=== PATIENT | female | born 1955 | race Caucasian/White ===

== ENCOUNTER 2017-01-07 17:53 | Emergency (ER) | payer OTHER ==
[~2017-01-07] VITALS: Ht 165.1 cm; Wt 137.0 kg
[~2017-01-07 17:53] MED LIST: ALBUAER INH; ASCO500T3 PO; CARV6.252 PO; DIAZ2TAB PO; FERR1TAB23 PO; FRS/40 PO; LOSA1TAB PO; MECL1TAB42 PO; ONDA4TAB46 PO; POTA20TA16 PO; PRLSR20 PO
[2017-01-07 17:55] VITALS: BP 131/68; PULSE 83; TEMP 36.9; O2SAT 94; Ht 165.1 cm; Wt 137.0 kg
[2017-01-07] MEDS ORDERED: OXYCODONE HCL IR 5 MG TAB (IMMEDIATE RELEASE) PO STA (18:05)
--- NOTE | 2017-01-07 19:08 | DIAGNOSTIC IMAGING REPORT ---
RIGHT KNEES, AP STANDING CLINICAL HISTORY: rt knee pain/eval for severe O/A Right pain COMPARISON: None DISCUSSION: Moderate degenerative narrowing medial joint compartment right knee. Rather significant degenerative narrowing medial joint compartment left knee. Bony mineralization is within normal limits. Lateral joint compartments are intact. There is no evidence for soft tissue swelling. IMPRESSION: Moderate rather significant degenerative change medial joint compartment right knee. Significant to severe degenerative narrowing medial joint compartment left knee. Electronically signed by: Joe Lamas M.D. 01/07/2017 7:07 PM Dictated Date/Time: 01/07/2017 7:06 PM
--- NOTE | 2017-01-07 19:09 | DIAGNOSTIC IMAGING REPORT ---
RIGHT KNEE 1 OR 2 VIEWS ROUTINE CLINICAL HISTORY: knee pain Right pain COMPARISON: None. DISCUSSION: Lateral projection of the knee confirms moderate degenerative change of the patellofemoral joint. There is no significant joint effusion. There is no abnormal periosteal reaction. There is no evidence for soft tissue swelling. IMPRESSION: Mild to moderate degenerative change of the patellofemoral joint. Lateral projection of the knee is otherwise negative Electronically signed by: Joe Lamas M.D. 01/07/2017 7:08 PM Dictated Date/Time: 01/07/2017 7:07 PM
[2017-01-07] MEDS ORDERED: MoRPHine SULFATE 10 MG/ML CARP/VIAL IM STA (19:14)
--- NOTE | 2017-01-07 19:36 | DIAGNOSTIC IMAGING REPORT ---
RIGHT KNEE 1 OR 2 VIEWS ROUTINE CLINICAL HISTORY: RIGHT KNEE PAIN, AP NON WEIGHTBEARING Right pain COMPARISON: None. DISCUSSION: The bones and joint spaces appear intact. There is no evidence of fracture, dislocation or bony disease. There is no evidence for soft tissue swelling. IMPRESSION: Negative study. Electronically signed by: Joe Lamas M.D. 01/07/2017 7:35 PM Dictated Date/Time: 01/07/2017 7:34 PM
[2017-01-07] MEDS ORDERED: ONDANSETRON 4MG OD TAB PO ONE (20:00)
--- NOTE | 2017-01-07 20:09 | EMERGENCY ROOM VISIT NOTE ---
ED Visit Note First contact with patient: 18:00 CHIEF COMPLAINT: Right knee pain HISTORY OF PRESENT ILLNESS: This 62-year-old female presents the ER with chief complaint right knee pain. The patient states that the pain started 2 weeks ago but got more severe over the past 2 days. She denies any injury to her knee. The patient denies any locking or giving out of the knee. The patient admits to severe knee pain with weightbearing. The patient has not taken anything at home for pain since she cannot take Tylenol or aspirin. The patient has not seen her family physician for her symptoms. She has never seen an orthopedic surgeon in the past. REVIEW OF SYSTEMS: 6 system review was performed and was negative unless stated otherwise in history of present illness. PMH: The patient is healthy; heart disease, DVT, hysterectomy, SOCIAL HISTORY: Patient lives with her . The patient denies any tobacco or alcohol use PHYSICAL EXAM: Vital Signs normal: Reviewed Nurse's notes and agree. GENERAL: Morbidly obese white female appears uncomfortable secondary to knee pain. MENTAL STATUS: Alert and oriented in no acute distress. RIGHT KNEE: No gross bony deformity noted. The patient has tenderness to palpation over the medial joint space otherwise nontender. The patient has limited range of motion with flexion with pain elicited with flexion. No ligament instability noted. EMERGENCY DEPARTMENT COURSE: The patient was evaluated. The patient was given OxyIR 10 mg by mouth for pain. X-ray of the right knee to include weightbearing was ordered and interpreted by the radiologist and myself. DIAGNOSTICS:RIGHT KNEES, AP STANDING CLINICAL HISTORY: rt knee pain/eval for severe O/A Right pain COMPARISON: None DISCUSSION: Moderate degenerative narrowing medial joint compartment right knee. Rather significant degenerative narrowing medial joint compartment left knee. Bony mineralization is within normal limits. Lateral joint compartments are intact. There is no evidence for soft tissue swelling. IMPRESSION: Moderate rather significant degenerative change medial joint compartment right knee. Significant to severe degenerative narrowing medial joint compartment left knee. Electronically signed by: Joe Lamas M.D. 01/07/2017 7:07 PM Dictated Date/Time: 01/07/2017 7:06 PM RIGHT KNEE 1 OR 2 VIEWS ROUTINE CLINICAL HISTORY: RIGHT KNEE PAIN, AP NON WEIGHTBEARING Right pain COMPARISON: None. DISCUSSION: The bones and joint spaces appear intact. There is no evidence of fracture, dislocation or bony disease. There is no evidence for soft tissue swelling. IMPRESSION: Negative study. Electronically signed by: Joe Lamas M.D. 01/07/2017 7:35 PM Dictated Date/Time: 01/07/2017 7:34 PM RIGHT KNEE 1 OR 2 VIEWS ROUTINE CLINICAL HISTORY: knee pain Right pain COMPARISON: None. DISCUSSION: Lateral projection of the knee confirms moderate degenerative change of the patellofemoral joint. There is no significant joint effusion. There is no abnormal periosteal reaction. There is no evidence for soft tissue swelling. IMPRESSION: Mild to moderate degenerative change of the patellofemoral joint. Lateral projection of the knee is otherwise negative Electronically signed by: Joe Lamas M.D. 01/07/2017 7:08 PM Dictated Date/Time: 01/07/2017 7:07 PM The patient was reevaluated and was still in pain and therefore was given morphine 10 mg IM. The patient was informed of the x-ray findings. The patient was again reevaluated and stated that the pain was better but she was slightly nauseated therefore she was given Zofran 4 mg ODT. The patient was given a walker. The patient states that she would like to follow with Dr. Griffith since her goes to him for his orthopedic needs. The patient was discharged home with an OxyIR home pack in stable condition. DIAGNOSIS: Severe osteoarthritis of both knees DISCHARGE INSTRUCTIONS: Take OxyIR one to 2 tablets every 4 hours as needed for pain. Do not drive while taking the OxyIR. Use walker for ambulation. Call Dr. Griffith tomorrow for follow-up appointment. Problem List Medical Problems: (1) Diastolic CHF, chronic Status: Chronic (2) Hypertension Status: Chronic (3) Migraine headache Status: Chronic Surgical Problems: (1) Status post appendectomy Status: Chronic (2) Status post section Status: Chronic (3) Status post hysterectomy Status: Chronic Current/Historical Medications Scheduled Carvedilol (Coreg), 6.25 MG PO BID Furosemide (Lasix), 40 MG PO QAM Losartan Potassium (Cozaar), 25 MG PO QAM Potassium Ext Rel (Klor-Con), 20 MEQ PO QAM Pramipexole (Mirapex), 2 TABS PO QAM Pramipexole (Mirapex), 0.125 MG PO QPM Trazodone Hcl (Trazodone), 100 MG PO HS Scheduled PRN Albuterol Sulfate (Proventil Hfa), 2 PUFFS INH Q6H PRN for SOB/Wheezing Ondansetron Hcl (Zofran), 4 MG PO Q8H PRN for Nausea Allergies Coded Allergies: Adhesives (Verified Allergy, Unknown, "Tape" -- blisters, 09/05/16) Cyclobenzaprine (Verified Allergy, Unknown, RASH, 09/05/16) Lisinopril (Verified Allergy, Unknown, Cough, 09/05/16) Source - PT/GMG Tetanus Toxoid (Unverified Allergy, Unknown, IRRITABILITY, 09/05/16) Hydrochlorothiazide w/Triamterene (Unverified Adverse Reaction, Severe, COUGH, 09/05/16) Vital Signs Date Time Temp Pulse Resp B/P Pulse Ox O2 Delivery O2 Flow Rate FiO2 01/07/17 17:55 36.9 83 20 131/68 94 Room Air Medications Administered Medications (Trade) Dose Ordered Sig/Ameya Route Start Time Stop Time Status Last Admin Dose Admin Oxycodone HCl (Roxicodone Immediate Rel Tab) 10 mg NOW STAT PO 01/07/17 18:05 01/07/17 18:09 DC 01/07/17 18:34 10 MG Morphine Sulfate (MoRPHine SULFATE INJ) 10 mg NOW STAT IM 01/07/17 19:14 01/07/17 19:15 DC 01/07/17 19:31 10 MG Ondansetron HCl (Zofran Odt) 4 mg ONE ONCE PO 01/07/17 20:00 01/07/17 20:01 DC 01/07/17 19:56 4 MG Departure Information Referrals Abby Shipman D.O. (PCP) Patient Instructions My [facility]
[2017-01-07] MEDS ORDERED: OXYC1TAB3 PO (20:11)
[2017-01-07] MEDS ORDERED: OXYCODONE IR HOME PACK PO ONE (20:15)
[2017-01-25] MEDS ORDERED: METO50TA17 PO (12:13)
[2017-01-30] MEDS ORDERED: ATV1 PO (05:04)
[2017-01-30] MEDS ORDERED: RANI150T2 PO (05:04)
[2017-01-30] MEDS ORDERED: NRN100 PO (05:04)
[2017-01-30] MEDS ORDERED: TRAZ100T29 PO (12:32)
[2017-02-01] MEDS ORDERED: LPR25 PO (15:28)
[2017-05-03] MEDS ORDERED: DOCU-94 PO (09:21)
[2017-05-03] MEDS ORDERED: FRRS300 PO (09:21)
[2017-05-03] MEDS ORDERED: MRLP17X PO (09:21)
[2017-05-03] MEDS ORDERED: PSYL58.636 PO (09:21)
== END 2017-01-07 20:24 | disposition home or self-care (01) ==
LOC: C.EDB 17:54 → C.EDD 20:24
DX: M17.0 Bilateral primary osteoarthritis of knee (principal); I51.9 Heart disease, unspecified; I50.32 Chronic diastolic (congestive) heart failure; Z90.710 Acquired absence of both cervix and uterus

== ENCOUNTER 2017-01-24 03:46 | Inpatient (IN) | payer OTHER ==
[2017-01-24] VITALS (7 sets, daily range): BP systolic 109–170; BP diastolic 68–101; PULSE 72–102; TEMP 36.5–36.8; O2SAT 93–99; Ht 165.1 cm; Wt 142.3 kg
[~2017-01-24] VITALS: Ht 165.1 cm; Wt 142.3 kg
[~2017-01-24 03:46] MED LIST changes: -ASCO500T3 PO; -DIAZ2TAB PO; -FERR1TAB23 PO; -MECL1TAB42 PO; +OXYC1TAB3 PO; -PRLSR20 PO
[2017-01-24] MEDS ORDERED: METHYLPREDNISOLONE 125 MG VIAL IV STA (04:15)
[2017-01-24] MEDS ORDERED: DiphenhydrAMINE HCL 50 MG/ML VIAL IV STA (04:15)
--- NOTE | 2017-01-24 04:20 | EMERGENCY ROOM VISIT NOTE ---
History Report prepared by David: Endy Baptiste Under the Supervision of: Dr. Kan Kruse M.D. First contact with patient: 04:10 Chief Complaint: ALLERGIC REACTION Stated Complaint: HIVES,ITCHING,HARD TO BREATHE History of Present Illness The patient is a 62 year old female who presents to the Emergency Room with complaints of an allergic reaction that occurred 3 hours ago. The patient states that she is itching and has hives all over. She is mildly short of breath that began 2 hours ago. She is also a little nauseated. The only new medication that she has been taking is Sulindac, which she started on the 13 of this month. She denies any vomiting or chest pain. She has a past medical history of arthritis, bone spurs in her knees, fibromyalgia, depression, and CHF. She states that she has retained 4 pounds of fluid due to her recent trouble with urinating. She just had a shot of cortisone in her knee and back recently. Source of History: patient Onset: 3 hours ago Position: other (global) Symptom Intensity: mild Quality: other (allergic reaction) Timing: constant Associated Symptoms: + SOB, + nausea, + rash, No chest pain, No vomiting Review of Systems See HPI for pertinent positives & negatives. A total of 10 systems reviewed and were otherwise negative. Past Medical & Surgical Medical Problems: (1) Atrial fibrillation (2) Degenerative joint disease (DJD) of lumbar spine (3) Diastolic CHF, chronic (4) Hypertension (5) Internal hemorrhoids (6) Migraine headache (7) Nonalcoholic fatty liver disease (8) Sleep apnea Surgical Problems: (1) Status post appendectomy (2) Status post section (3) Status post hysterectomy Family History FH: COPD (chronic obstructive pulmonary disease) FATHER FH: diabetes mellitus MOTHER FH: heart disease FATHER GRANDFATHER FH: hypertension MOTHER FH: lung cancer MOTHER Social History Smoking Status: Never Smoker Alcohol Use: none Marital Status: Housing Status: lives with family Occupation Status: unemployed Current/Historical Medications Scheduled Carvedilol (Coreg), 6.25 MG PO BID Furosemide (Lasix), 40 MG PO QAM Gabapentin (Gabapentin), 100 MG PO BID Losartan Potassium (Cozaar), 25 MG PO QAM Potassium Ext Rel (Klor-Con), 20 MEQ PO QAM Pramipexole (Mirapex), 2 TABS PO QAM Pramipexole (Mirapex), 0.125 MG PO QPM Ranitidine HCl (Ranitidine HCl), 150 MG PO BID Sulindac (Sulindac), 150 MG PO BIDM Trazodone Hcl (Trazodone), 100 MG PO HS Scheduled PRN Albuterol Sulfate (Proventil Hfa), 2 PUFFS INH Q6H PRN for SOB/Wheezing Lorazepam (Lorazepam), 1 MG PO Q6 PRN for Anxiety Ondansetron Hcl (Zofran), 4 MG PO Q8H PRN for Nausea Allergies Coded Allergies: Sulindac (Verified Allergy, Intermediate, HIVES, 01/24/17) Adhesives (Verified Allergy, Unknown, "Tape" -- blisters, 01/24/17) Cyclobenzaprine (Verified Allergy, Unknown, RASH, 01/24/17) Lisinopril (Verified Allergy, Unknown, Cough, 01/24/17) Source - PT/GMG Tetanus Toxoid (Unverified Allergy, Unknown, IRRITABILITY, 01/24/17) Hydrochlorothiazide w/Triamterene (Unverified Adverse Reaction, Severe, COUGH, 01/24/17) Physical Exam Vital Signs Date Time Temp Pulse Resp B/P Pulse Ox O2 Delivery O2 Flow Rate FiO2 01/24/17 05:54 78 18 143/89 93 Room Air 01/24/17 05:41 75 01/24/17 05:39 150 01/24/17 04:15 88 01/24/17 04:12 Room Air 01/24/17 03:54 36.9 85 25 195/81 98 Room Air Physical Exam General: Non ill appearing older female. Well developed well nourished in no acute distress, breathing comfortably on room air. Normal speech HEENT: Normal cephalic atraumatic. Pupils are equal round and reactive to light. Extraocular movements are intact. Oropharynx is pink with moist mucous membranes. No swelling of the mouth lips or tongue. Neck: Supple with a midline trachea. No meningeal signs or stiffness, no JVD or bruits. No Stridor. Chest: Clear to auscultation bilaterally. No wheezes or rhonchi. No increased work of breathing. Heart: regular rate and rhythm. Abdomen: Soft nontender, nondistended without rebound guarding or rigidity. Extremities: No cyanosis clubbing or edema. No calf tenderness or assymetry Spine/Back. Non tender to palpation. No CVA tenderness Skin: Good turgor. Itching on arms and possible hives on the back. Neurologic exam: Cranial nerves two through 12 are intact. Motor and sensation are intact and symmetrical throughout. Medical Decision & Procedures ER Provider Diagnostic Interpretation: X-ray results as stated below per interpretation by me: CHEST XRAY: Cardiomegaly, no overt CHF, large body habitus. Laboratory Results 01/24/17 04:28 Red Blood Count 4.30, Mean Corpuscular Volume 86.3, Mean Corpuscular Hemoglobin 27.2, Mean Corpuscular Hemoglobin Concent 31.5, Mean Platelet Volume 9.6, Neutrophils (%) (Auto) 66.7, Lymphocytes (%) (Auto) 24.1, Monocytes (%) (Auto) 6.2, Eosinophils (%) (Auto) 1.8, Basophils (%) (Auto) 0.2, Neutrophils # (Auto) 6.97, Lymphocytes # (Auto) 2.52, Monocytes # (Auto) 0.65, Eosinophils # (Auto) 0.19, Basophils # (Auto) 0.02 01/24/17 04:28 Test 01/24/17 04:28 01/24/17 04:32 White Blood Count 10.45 K/uL (4.8-10.8) Red Blood Count 4.30 M/uL (4.2-5.4) Hemoglobin 11.7 g/dL (12.0-16.0) Hematocrit 37.1 % (37-47) Mean Corpuscular Volume 86.3 fL (80-100) Mean Corpuscular Hemoglobin 27.2 pg (25-34) Mean Corpuscular Hemoglobin Concent 31.5 g/dl (32-36) Platelet Count 259 K/uL (130-400) Mean Platelet Volume 9.6 fL (7.4-10.4) Neutrophils (%) (Auto) 66.7 % Lymphocytes (%) (Auto) 24.1 % Monocytes (%) (Auto) 6.2 % Eosinophils (%) (Auto) 1.8 % Basophils (%) (Auto) 0.2 % Neutrophils # (Auto) 6.97 K/uL (1.4-6.5) Lymphocytes # (Auto) 2.52 K/uL (1.2-3.4) Monocytes # (Auto) 0.65 K/uL (0.11-0.59) Eosinophils # (Auto) 0.19 K/uL (0-0.5) Basophils # (Auto) 0.02 K/uL (0-0.2) RDW Standard Deviation 48.1 fL (36.4-46.3) RDW Coefficient of Variation 15.2 % (11.5-14.5) Immature Granulocyte % (Auto) 1.0 % Immature Granulocyte # (Auto) 0.10 K/uL (0.00-0.02) Anion Gap 4.0 mmol/L (3-11) Est Creatinine Clear Calc Drug Dose 76.2 ml/min Estimated GFR () 62.8 Estimated GFR (Non- 54.1 BUN/Creatinine Ratio 17.7 (10-20) Calcium Level 8.8 mg/dl (8.5-10.1) Total Bilirubin 0.4 mg/dl (0.2-1) Direct Bilirubin < 0.1 mg/dl (0-0.2) Aspartate Amino Transf (AST/SGOT) 12 U/L (15-37) Alanine Aminotransferase (ALT/SGPT) 25 U/L (12-78) Alkaline Phosphatase 100 U/L (45-117) Total Protein 7.1 gm/dl (6.4-8.2) Albumin 3.0 gm/dl (3.4-5.0) Lipase 80 U/L (73-393) Bedside Troponin I 0.000 ng/ml (0-0.045) RX-[id number]-Type Natriuretic Peptide < 15 pg/ml (0-900) Laboratory studies as stated above per my review. Medications Administered Medications (Trade) Dose Ordered Sig/Ameya Route Start Time Stop Time Status Last Admin Dose Admin Diphenhydramine HCl (Benadryl Inj) 25 mg NOW STAT IV 01/24/17 04:15 01/24/17 04:16 DC 01/24/17 04:28 25 MG Methylprednisolone Sodium Succinate (Solu-Medrol IV) 125 mg NOW STAT IV 01/24/17 04:15 01/24/17 04:16 DC 01/24/17 04:28 125 MG ECG Indication: SOB/dyspnea Rate (beats per minute): 79 Rhythm: normal sinus Findings: other (low voltage QRS, Nonspecific Q-wave abnormalities) Comparison ECG Date: 12 Jul 2016 Change: no significant change ED Course 0410: Past medical records reviewed. The patient was evaluated in room A10, and a complete history and physical examination were performed. 0415: Solu-Medrol 125 mg IV, Benadryl Inj 25 mg IV 0512: I reassessed the patient at this time. She is resting comfortably. 0540: Upon reevaluation, the patient is resting. I discussed the results and treatment plan with her. She verbalized agreement of the treatment plan. The patient was discharged home. 0543: When discharging the patient, I noticed she had an increased heart rate of 150. She had a brief run of Atrial Fibrillation. However, she feels better. 0557: I reevaluated the patient at this time. Upon reevaluation, the patient is resting, but is experiencing episodes of Atrial Fibrillation. I discussed the results and treatment plan with the patient and Dr. Amadou Tian Hospitalist. The patient will be evaluated by him for further management. Medical Decision Differentials include allergic reaction, medication side effect, CHF, anxiety, and electrolyte or metabolic abnormality. This patient comes in as described above she complains of have an allergic reaction. She has itching on her arms back. She may have a small amount of hives on her back. She has recently started sulindac which she could be allergic to. She's also had a recent weight gain with swelling in her legs and decreased urine output and mild shortness of breath. She appears in no distress. She has no facial swelling. She's had nothing to suggest anaphylaxis. She has no swollen mouth lips or tongue. She has no hoarseness or stridor or wheezing. IV access established, EKG was obtained and multiple blood tests was obtained. She was given IV Benadryl as well as IV Solu-Medrol feeling a lot better. Chest x-ray somewhat limited due to her body habitus but no overt CHF. EKG shows no ischemic changes or arrhythmia. Her troponin is normal. She's haad no significant electrolyte or metabolic abnormalities. She is feeling better and when I went ashley discharge her, I noticed her heart rate was in a rapid A. fib at 150. This lasted very briefly and she was pretty much asymptomatic with this. I did repeat EKG but she had converted to normal sinus by the time the EKG was obtained and she had no ischemic changes. She has no history of A. fib. I do think needs to be admitted for cardiac workup. I think she does have some mild congestive heart failure changes as well with some weight gain. I did call Dr. Tobar and in between and she also had another very briefepisode where she had a heart rate of 130. She remained stable otherwise in her heart rate about 78 when she is not in rapid A. fib. She will be admitted for further treatment and cardiac consultation. Consults Time Called: 0513 Consulting Physician: Dr. Amadou Munson [facility] Hospitalist Returned Call: [phone] He will be evaluating the patient for further management. Impression Primary Impression: New onset a-fib Additional Impressions: Tachycardia Allergic reaction Congestive heart disease Scribe Attestation The scribe's documentation has been prepared under my direction and personally reviewed by me in its entirety. I confirm that the note above accurately reflects all work, treatment, procedures, and medical decision making performed by me. Departure Information Dispostion Being Evaluated By Hospitalist Referrals Abby Shipman D.O. (PCP) Forms HOME CARE DOCUMENTATION FORM, IMPORTANT VISIT INFORMATION Patient Instructions My [facility] Problem Qualifiers
[2017-01-24 04:42] LABS: BASO % 0.2 %; BASO ABS # 0.02 K/uL (0-0.2); COMPLETE YES; EOS % 1.8 %; HEMATOCRIT 37.1 % (37-47); LYMPH % 24.1 %; LYMPH ABS # 2.52 K/uL (1.2-3.4); MEAN CELL VOLUME 86.3 fL (80-100); MEAN CORPUSCULAR HEMOGLOBIN 27.2 pg (25-34); MEAN CORPUSCULAR HGB CONC 31.5 g/dl (32-36); MEAN PLATELET VOLUME 9.6 fL (7.4-10.4); MONO % 6.2 %; NEUT % 66.7 %; PLATELET COUNT 259 K/uL (130-400); WHITE BLOOD COUNT 10.45 K/uL (4.8-10.8)
[2017-01-24 04:53] LABS: POINT OF CARE PRO-BNP < 15 pg/ml (0-900)
[2017-01-24 04:59] LABS: ALT/SGPT 25 U/L (12-78); AST/SGOT 12 U/L (15-37); BLOOD UREA NITROGEN 19 mg/dl (7-18); BUN/CREATININE RATIO 17.7 (10-20); CALCIUM 8.8 mg/dl (8.5-10.1); CARBON DIOXIDE 33 mmol/L (21-32); CHLORIDE 107 mmol/L (98-107); GLUCOSE 96 mg/dl (70-99); POTASSIUM 4.2 mmol/L (3.5-5.1); SODIUM 144 mmol/L (136-145)
[2017-01-24 05:02] LABS: ALKALINE PHOSPHATASE 100 U/L (45-117)
[2017-01-24] MEDS ORDERED: CLN150 PO (05:04)
[2017-01-24] MEDS ORDERED: ACETAMINOPHEN 325 MG TAB PO PRN (06:15)
--- NOTE | 2017-01-24 07:29 | DIAGNOSTIC IMAGING REPORT ---
SINGLE VIEW CHEST CLINICAL HISTORY: Atypical chest pain. Allergic reaction. FINDINGS: An AP, portable, upright chest radiograph is compared to chest x-ray and chest CT dated 07/12/2016. The examination is degraded by portable technique, large body habitus, and apical lordotic positioning. The heart is enlarged and there is atherosclerotic calcification of the thoracic aorta. The pulmonary vasculature is noncongested. Chronic interstitial thickening is similar to previous. There is left basilar atelectasis. No airspace consolidation, large pleural effusion, or pneumothorax is seen. The skeletal structures are osteopenic. Degenerative changes noted throughout the thoracic spine. IMPRESSION: Cardiomegaly with no acute cardiopulmonary abnormality. Electronically signed by: Sam Connolly M.D. 01/24/2017 7:27 AM Dictated Date/Time: 01/24/2017 7:26 AM
[2017-01-24] MEDS ORDERED: METOPROLOL TARTRATE 1 MG/ML VIAL ONE (07:42)
[2017-01-24] MEDS ORDERED: METOPROLOL TARTRATE 1 MG/ML VIAL IV STA (07:45)
[2017-01-24] MEDS ORDERED: METOPROLOL TARTRATE 25 MG TAB PO ONE (08:34)
--- NOTE | 2017-01-24 08:37 | History and Physical ---
History & Physical Date & Time of Service: Jan 24, 2017 at ~ 08:00 . Chief Complaint: Atrial Fibrillation Primary Care Physician: Abby Shipman D.O. History of Present Illness 62 YO female followed by Dr. Abby Shipman for Family Medicine and Dr. Mandeep Shipman for Cardiology. History of diastolic CHF, hypertension, and other problems noted below. Last echo performed an [facility] 03/13/14 demonstrated normal LV wall motion and function; grade II diastolic dysfunction was noted. LA diameter was normal. Dobutamine stress echo did not show any evidence of stress-induced ischemia. Started on sulindac 01/15 for bilateral knee pain. Noted worsening dependent edema and 4 lb weight gain. Developed urticaria last night and came to ED for evaluation. Received methylprednisolone for urticaria In ED during the night she was noted to have a least 2 runs of atrial fibrillation with rapid ventricular response; both times she spontaneously returned to NSR. Patient indicates, in retrospect, that she has been having intermittent palpitations for about a month. They have been self-limited, sometimes associated with dyspnea and lightheadedness. Another episode of AF occurred this morning around 07:45; this episode was more prolonged and associated with midsternal chest pressure and dyspnea. Received IV metoprolol and converted to NSR. No prior history of AF. Has been under a lot of stress due to injury that her recently suffered that has required a number of procedures and rehab. . Past Medical/Surgical History Chronic Medical Problems: (1) Degenerative joint disease (DJD) of lumbar spine Status: Chronic (2) Diastolic CHF, chronic Status: Chronic (3) Hypertension Status: Chronic (4) Internal hemorrhoids Status: Chronic (5) Migraine headache Status: Chronic (6) Nonalcoholic fatty liver disease Status: Chronic Surgical Problems: (1) Status post appendectomy Status: Chronic (2) Status post section Status: Chronic (3) Status post hysterectomy Status: Chronic . Family History FATHER FH: heart disease FH: COPD (chronic obstructive pulmonary disease) MOTHER FH: lung cancer FH: hypertension FH: diabetes mellitus GRANDFATHER FH: heart disease Social History Smoking Status: Former Smoker Alcohol Use: occasionally Marital Status: Housing status: lives with family Occupational Status: unemployed Immunizations History of Influenza Vaccine: Unknown History of Tetanus Vaccine?: Unknown History of Pneumococcal: Unknown History of Hepatitis B Vaccine: Unknown Multi-Drug Resistant Organisms History of MDRO: No Allergies Coded Allergies: Sulindac (Verified Allergy, Intermediate, HIVES, 01/24/17) Adhesives (Verified Allergy, Unknown, "Tape" -- blisters, 01/24/17) Cyclobenzaprine (Verified Allergy, Unknown, RASH, 01/24/17) Lisinopril (Verified Allergy, Unknown, Cough, 01/24/17) Source - PT/GMG Tetanus Toxoid (Unverified Allergy, Unknown, IRRITABILITY, 01/24/17) Hydrochlorothiazide w/Triamterene (Unverified Adverse Reaction, Severe, COUGH, 01/24/17) Home Medications Scheduled Carvedilol (Coreg), 6.25 MG PO BID Furosemide (Lasix), 40 MG PO QAM Gabapentin (Gabapentin), 100 MG PO BID Losartan Potassium (Cozaar), 25 MG PO QAM Potassium Ext Rel (Klor-Con), 20 MEQ PO QAM Pramipexole (Mirapex), 2 TABS PO QAM Pramipexole (Mirapex), 0.125 MG PO QPM Ranitidine HCl (Ranitidine HCl), 150 MG PO BID Sulindac (Sulindac), 150 MG PO BIDM Trazodone Hcl (Trazodone), 100 MG PO HS Scheduled PRN Albuterol Sulfate (Proventil Hfa), 2 PUFFS INH Q6H PRN for SOB/Wheezing Lorazepam (Lorazepam), 1 MG PO Q6 PRN for Anxiety Ondansetron Hcl (Zofran), 4 MG PO Q8H PRN for Nausea Review of Systems Constitutional: + problem reported (weight gain), No chills, No fever Eyes: No worsening of vision ENT: No hearing loss, No nasal symptoms, No sore throat Respiratory: + dyspnea on exertion, No cough Cardiovascular: + chest pain (chest pressure with palpitations), + edema, + palpitations Abdomen: + GI bleeding (chronic intermittent rectal bleeding), No diarrhea, No nausea, No pain, No vomiting Musculoskeletal: + joint pain (bilat knee pain) Genitourinary - Female: No dysuria, No hematuria Neurologic: + numbness/tingling (left hand), + weakness (left hand) Psychiatric: + anxiety, + depression symptoms Endocrine: + excessive urination (attributed to diuretic), + fatigue Hematologic / Lymphatic: + abnormal bleeding/bruising (chronic rectal bleeding) Integumentary: + itch (uritcaria as noted in HPI) Physical Exam Vital Signs Date Time Temp Pulse Resp B/P Pulse Ox O2 Delivery O2 Flow Rate FiO2 01/24/17 07:59 98 Nasal Cannula 2.0 01/24/17 07:51 179/94 01/24/17 07:50 85 01/24/17 07:47 152 168/106 01/24/17 07:45 151 15 168/106 97 01/24/17 07:38 176/105 01/24/17 07:37 163 01/24/17 07:35 169/124 01/24/17 07:34 163/126 01/24/17 07:30 153 15 96 01/24/17 07:26 37.0 91 16 158/83 94 01/24/17 07:26 158/83 01/24/17 07:25 127/113 01/24/17 07:15 108 22 94 01/24/17 07:00 82 16 95 01/24/17 06:26 75 01/24/17 06:24 167 01/24/17 05:54 78 18 143/89 93 Room Air 01/24/17 05:41 75 01/24/17 05:39 150 01/24/17 04:15 88 01/24/17 04:12 Room Air 01/24/17 03:54 36.9 85 25 195/81 98 Room Air General Appearance: WD/WN, no apparent distress, + obese Head: normocephalic, atraumatic Eyes: normal inspection, PERRL, EOMI, sclerae normal ENT: normal ENT inspection, hearing grossly normal, TMs normal, pharynx normal Neck: supple, no adenopathy, thyroid normal, trachea midline, + pertinent finding (neck veins difficult to assess) Respiratory/Chest: lungs clear, no respiratory distress Cardiovascular: regular rate, rhythm, no gallop, no murmur, normal peripheral pulses, + pertinent finding (3+ pretibial edema; neck veins difficult to assess) Abdomen/GI: normal bowel sounds, non tender, soft, no organomegaly, no pulsatile mass Extremities/Musculoskelatal: no calf tenderness, normal capillary refill, + pedal edema (2+) Neurologic/Psych: conference assistant II-XII nml as tested (PERRL, EOMI, no facial palsy, no dysarthria), no motor/sensory deficits (motor testing upper and lower extremities intact), alert, normal mood/affect, oriented x 3 Skin: normal color, warm/dry, + rash (venous stasis changes), + pertinent finding (excoriations on arms; no urticaria at time of my assessment) Lymphatic: no adenopathy Diagnostics Laboratory Results Results Past 24 Hours Test 01/24/17 04:28 01/24/17 04:32 Range/Units White Blood Count 10.45 4.8-10.8 K/uL Red Blood Count 4.30 4.2-5.4 M/uL Hemoglobin 11.7 12.0-16.0 g/dL Hematocrit 37.1 37-47 % Mean Corpuscular Volume 86.3 80-100 fL Mean Corpuscular Hemoglobin 27.2 25-34 pg Mean Corpuscular Hemoglobin Concent 31.5 32-36 g/dl Platelet Count 259 130-400 K/uL Mean Platelet Volume 9.6 7.4-10.4 fL Neutrophils (%) (Auto) 66.7 % Lymphocytes (%) (Auto) 24.1 % Monocytes (%) (Auto) 6.2 % Eosinophils (%) (Auto) 1.8 % Basophils (%) (Auto) 0.2 % Neutrophils # (Auto) 6.97 1.4-6.5 K/uL Lymphocytes # (Auto) 2.52 1.2-3.4 K/uL Monocytes # (Auto) 0.65 0.11-0.59 K/uL Eosinophils # (Auto) 0.19 0-0.5 K/uL Basophils # (Auto) 0.02 0-0.2 K/uL RDW Standard Deviation 48.1 36.4-46.3 fL RDW Coefficient of Variation 15.2 11.5-14.5 % Immature Granulocyte % (Auto) 1.0 % Immature Granulocyte # (Auto) 0.10 0.00-0.02 K/uL Sodium Level 144 136-145 mmol/L Potassium Level 4.2 3.5-5.1 mmol/L Chloride Level 107 98-107 mmol/L Carbon Dioxide Level 33 21-32 mmol/L Anion Gap 4.0 3-11 mmol/L Blood Urea Nitrogen 19 7-18 mg/dl Creatinine 1.10 0.60-1.20 mg/dl Est Creatinine Clear Calc Drug Dose 76.2 ml/min Estimated GFR () 62.8 Estimated GFR (Non- 54.1 BUN/Creatinine Ratio 17.7 10-20 Random Glucose 96 70-99 mg/dl Calcium Level 8.8 8.5-10.1 mg/dl Total Bilirubin 0.4 0.2-1 mg/dl Direct Bilirubin < 0.1 0-0.2 mg/dl Aspartate Amino Transf (AST/SGOT) 12 15-37 U/L Alanine Aminotransferase (ALT/SGPT) 25 12-78 U/L Alkaline Phosphatase 100 45-117 U/L Total Protein 7.1 6.4-8.2 gm/dl Albumin 3.0 3.4-5.0 gm/dl Lipase 80 73-393 U/L Bedside Troponin I 0.000 0-0.045 ng/ml [id number]-Type Natriuretic Peptide < 15 0-900 pg/ml Diagnostic Radiology SINGLE VIEW CHEST FINDINGS: An AP, portable, upright chest radiograph is compared to chest x-ray and chest CT dated 07/12/2016. The examination is degraded by portable technique, large body habitus, and apical lordotic positioning. The heart is enlarged and there is atherosclerotic calcification of the thoracic aorta. The pulmonary vasculature is noncongested. Chronic interstitial thickening is similar to previous. There is left basilar atelectasis. No airspace consolidation, large pleural effusion, or pneumothorax is seen. The skeletal structures are osteopenic. Degenerative changes noted throughout the thoracic spine. IMPRESSION: Cardiomegaly with no acute cardiopulmonary abnormality. Electronically signed by: Sam Connolly M.D. 01/24/2017 7:27 AM . EKG EKG performed at 04:21 reviewed and demonstrated NSR at 80 / minute, artifact V5 , biphasic / flatted T-waves III, V2-3.. . Impression Assessment and Plan PAROXYSMAL ATRIAL FIBRILLATION Experiencing palpitations intermittently for about 1 month. At least 3 episodes of paroxysmal AF in ED with rapid ventricular response. First 2 episodes converted spontaneously to NSR; 3rd episode was more prolonged and required IV metoprolol before converting. Serum K normal. Check Mg, TSH, troponin. Check echo. Start metoprolol tartrate 25 mg q 6 hrs. Patient has frequent rectal bleeding and does not tolerate antithrombotic meds; therefore, will not anticoagulate at this time. CHRONIC LEFT VENTRICULAR DIASTOLIC CONGESTIVE HEART FAILURE Worsening edema and weight gain since starting sulindac. Increase furosemide to 40 mg BID. Follow and titrate diuretics. CHRONIC LYMPHEDEMA Diuretics as tolerated. HYPERTENSION BP elevated in ED; sulindac may be contributing factor. Change beta mitchell from carvedilol to metoprolol. Continue losartan. SLEEP APNEA Continue CPAP. WEAKNESS / NUMBNESS LEFT HAND 2 week history of weakness / numbness left hand. No focal findings on exam. Check CT head. URTICARIA Onset about 1 week after starting sulindac. Avoid NSAID's. Received IV methylprednisone in ED. Loratadine 10 mg daily. Continue ranitidine. Steroid taper if urticaria recurs. VTE PROPHYLAXIS Moderate risk for VTE. No anticoagulants due to chronic rectal bleeding. SCD's. Ambulate. RESUSCITATION STATUS Discussed with patient. She does not have a living will. She would like resuscitation attempted in the event of a cardiopulmonary arrest if there is a reasonable chance of a meaningful recovery, but does not want prolonged extraordinary measures if prognosis is poor. Therefore, code status = "Level 1" (full resuscitation). DISPOSITION Admit to Telemetry Unit. Expected discharge to home. Family Medicine follow-up with Dr. Abby Shipman. Cardiology follow-up with Dr. Mandeep Shipman. . VTE Prophylaxis VTE Risk Assessment Done? Y/N: Yes Risk Level: Moderate Given or contraindicated: SCD's
[2017-01-24] MEDS ORDERED: LORAZEPAM 1 MG TAB PO PRN (08:45)
[2017-01-24] MEDS ORDERED: METOPROLOL TARTRATE 1 MG/ML VIAL IV. PRN (08:45)
[2017-01-24] MEDS ORDERED: ONDANSETRON 4 MG TAB PO PRN (08:45)
[2017-01-24] MEDS ORDERED: METOPROLOL TARTRATE 1 MG/ML VIAL IV PRN (08:45)
[2017-01-24] MEDS ORDERED: PRAMIPEXOLE DIHYDROCHLORIDE 0.25MG TAB PO SCH ×4 (09:00→23:00)
--- NOTE | 2017-01-24 09:39 | DIAGNOSTIC IMAGING REPORT ---
HEAD CT NONCONTRAST CT DOSE: 614.27 mGy.cm HISTORY: Mental status change weakness / numbness left hand TECHNIQUE: Multiaxial CT images of the head were performed without the use of intravenous contrast. Comparison: 07/12/2016 Findings: The paranasal sinuses and mastoid air cells are clear. The calvarium and skull base are intact. The ventricles and sulci are within normal limits. There is no mass, hematoma, midline shift, or acute infarct. Impression: No acute intracranial abnormality. Electronically signed by: Joe Lamas M.D. 01/24/2017 9:38 AM Dictated Date/Time: 01/24/2017 9:37 AM
[2017-01-24 09:45] LABS: MAGNESIUM 2.1 mg/dl (1.8-2.4)
[2017-01-24] MEDS: RANITIDINE HCL 150 MG TAB PO SCH ×2 (10:57→21:15)
[2017-01-24] MEDS: GABAPENTIN 100 MG CAP PO SCH ×2 (10:58→20:44)
[2017-01-24] MEDS: FUROSEMIDE 40 MG TAB PO SCH ×2 (11:00→16:32)
[2017-01-24] MEDS: LOSARTAN POTASSIUM 25 MG TAB PO SCH (11:01)
[2017-01-24] MEDS: POTASSIUM CHLORIDE 20 MEQ TABCR PO SCH (11:01)
[2017-01-24] MEDS: LORATADINE 10 MG TAB PO SCH (11:02)
[2017-01-24] MEDS: METOPROLOL TARTRATE 25 MG TAB PO SCH ×2 (12:00→17:45)
[2017-01-24] MEDS ORDERED: NURSING VERBAL MED ORDER ONE (12:15)
--- NOTE | 2017-01-24 13:06 | Cardiology Consultation ---
Cardiology Consultation Date of Consultation: Jan 24, 2017 Requesting Physician: Amadou Attending Napkin Machine Operator: Joselin (Joe Carlton PA-C) History of Present Illness Mrs. Garcia is a 62 year old female who is being seen at request of Dr. Tobar. Reason for consultation is atrial fibrillation. Mrs. Garcia presented to the ER on 01/24/2017 with complaints of itching, hives, and shortness of breath. She was felt to have an allergic reaction to the recently prescribed Sulindac which she began on January 15, 2017 for left greater than right knee pain. While taking sulindac the patient noted nausea, increased edema, and weight gain. In the emergency room she was seen by Dr. Kruse. She was given a 125 mg of IV Solu-Medrol and 25 mg of IV Benadryl with improvement in her presenting complaints. When being discharge the patient was observed to have symptomatic atrial fibrillation with a rapid ventricular response. Two short episodes were observed, both spontaneously converting back to sinus rhythm. She had a 3rd episode early this morning which was more prolonged and associated with chest pain in the center of the chest that radiated into her left anterior shoulder as well as left shoulder blade and dyspnea. She received IV metoprolol with conversion back to normal sinus rhythm and improvement in the associated symptoms. The patient has thus been admitted to the progressive care unit for further evaluation and treatment of the symptomatic paroxysmal atrial fibrillation. carvedilol has been discontinued in favor of metoprolol, prescribed Lopressor 25 mg q.6 hours. The patient has a history of internal hemorrhoidal bleeding and has been unable to tolerate anti -platelet therapy in the past. Her CHADS2 Score is 2/6 given her history of heart failure and hypertension. The patient describes having palpitations intermittently over the past month though nothing like what she experienced with the documented atrial fibrillation. The palpitations over the past month were described as someone tapping on the chest, symptoms lasting for 1 or 2 seconds only. The patient carries a history of diastolic congestive heart failure, hypertension, obstructive sleep apnea, and other problems detailed below. She denies history of myocardial infarction. She denies history of arrhythmias. No history of heart murmur, rheumatic fever, or scarlet fever. (Joe Carlton PA-C) History Past Medical and Surgical History: Diastolic congestive heart failure Severe obstructive sleep apnea-hypopnea syndrome, CPAP therapy Hypertension Internal hemorrhoids Non alcoholic fatty liver disease Migraine headaches Degenerative joint disease Fibromyalgia Anxiety Depression Appendectomy Total hysterectomy Hand surgery Tonsillectomy Hemorrhoidectomy, internal with banding. Social History: Reformed smoker. She quit 13 years ago after smoking 1/2 pack per day times 40 years. Alcohol: Rare use. Illegal drug use: Marijuana once in a while, last approximately 6 months ago. x 43 years. 3 children, without cardiac issues. Family History: Father suffered his 1st PR at the age of 53, passing at the age of 73 with another PR. Mother with lung cancer. 1 brother with CAD. 5 sisters without cardiac history. (Joe Carlton PA-C) Review Of Systems Positive for the following: Weight gain with Sulindac use. Migraine headaches. Glasses. Cataracts on eye exam last week. Exertional dyspnea. Nausea, prescribed PRN Zofran. GERD. Internal hemorrhoids. Arthritis. Left greater than right knee pain. Knee spurs. Back pain. Fibromyalgia. History of left lower extremity DVT. Left upper and lower extremity numbness. Lymphedema. Claustrophobia. Stress with . Trazodone every night. Ativan at night. RSL, on Mirapex. Last echo performed an [facility] 03/13/14 demonstrated normal LV wall motion and function; grade II diastolic dysfunction was noted. LA diameter was normal. Dobutamine stress echo in 2013 did not show any evidence of stress-induced ischemia. Complete review of system is otherwise as stated above, negative, or noncontributory. (Joe Carlton PA-C) Allergies Coded Allergies: Sulindac (Verified Allergy, Intermediate, HIVES, 01/24/17) Adhesives (Verified Allergy, Unknown, "Tape" -- blisters, 01/24/17) Cyclobenzaprine (Verified Allergy, Unknown, RASH, 01/24/17) Lisinopril (Verified Allergy, Unknown, Cough, 01/24/17) Source - PT/GMG Tetanus Toxoid (Unverified Allergy, Unknown, IRRITABILITY, 01/24/17) Hydrochlorothiazide w/Triamterene (Unverified Adverse Reaction, Severe, COUGH, 01/24/17) Medications Reported Home Medications Medications Dose Route/Sig Max Daily Dose Days Date Category Gabapentin 100 Mg Cap 100 Mg PO BID 01/24/17 Reported Sulindac 150 Mg Tab 150 Mg PO BIDM 01/24/17 Reported Ranitidine HCl 150 Mg Tab 150 Mg PO BID 01/24/17 Reported Lorazepam 1 Mg Tab 1 Mg PO Q6 PRN 01/24/17 Reported Proventil Hfa (Albuterol Sulfate) 108 Mcg/Act Aer 2 Puffs INH Q6H PRN 09/04/16 Reported Mirapex (Pramipexole Dihydrochloride) 0.125 Mg Tab 0.125 Mg PO QPM 09/04/16 Reported Mirapex (Pramipexole Dihydrochloride) 0.125 Mg Tab 2 Tabs PO QAM 09/04/16 Reported Zofran (Ondansetron HCl) 4 Mg Tab 4 Mg PO Q8H PRN 09/04/16 Reported Trazodone (Trazodone HCl) 100 Mg Tab 100 Mg PO HS 07/12/16 Reported Lasix (Furosemide) 40 Mg Tab 40 Mg PO QAM 03/06/15 Reported Coreg (Carvedilol) 6.25 Mg Tab 6.25 Mg PO BID 01/27/14 Reported Cozaar (Losartan Potassium) 25 Mg Tab 25 Mg PO QAM 01/27/14 Reported Klor-Con (Potassium Chloride) 20 Meq Tabcr 20 Meq PO QAM 06/10/13 Reported (Joe Carlton PA-C) Physical Exam Vital Signs (Last 8hrs): Last 8 Hrs Date Time Temp Pulse Resp B/P Pulse Ox O2 Delivery O2 Flow Rate FiO2 01/24/17 10:15 143/88 01/24/17 09:26 113 16 01/24/17 08:56 110 20 95 01/24/17 08:45 152/121 01/24/17 08:30 149/97 01/24/17 08:26 108 21 96 01/24/17 08:15 154/112 01/24/17 08:00 170/101 01/24/17 08:00 36.8 102 18 170/101 99 Room Air 01/24/17 07:59 98 Nasal Cannula 2.0 01/24/17 07:56 101 18 97 01/24/17 07:51 179/94 01/24/17 07:50 85 01/24/17 07:47 152 168/106 01/24/17 07:45 151 15 168/106 97 01/24/17 07:38 176/105 01/24/17 07:37 163 01/24/17 07:35 169/124 01/24/17 07:34 163/126 01/24/17 07:30 153 15 96 01/24/17 07:26 37.0 91 16 158/83 94 01/24/17 07:26 158/83 01/24/17 07:25 127/113 01/24/17 07:15 108 22 94 01/24/17 07:00 82 16 95 01/24/17 06:26 75 01/24/17 06:24 167 01/24/17 05:54 78 18 143/89 93 Room Air 01/24/17 05:41 75 01/24/17 05:39 150 General Appearance: Alert and Oriented x3. NAD. Elevated BMI Head: Normocephalic Atraumatic. Eyes: PER, EOMI, conjunctiva and sclera clear Neck: Supple. No carotid bruits noted. No JVD. No HJD. Respiratory: Breath sounds clear to auscultation bilaterally. No w/r/r. Cardiovascular: RRR, 84 bpm. No murmurs, rubs, gallops. PMI non displace. Abdomen: Normal bowel sounds, soft nontender. no abdominal bruits. Extremities: No edema, no clubbing or cyanosis. Distal pulses 2/4 bilaterally. Neuro: No focal deficits. Psychiatric: Normal affect. (Joe Carlton, JEEVAN) Data Last 24 Hours Test 01/24/17 04:28 01/24/17 04:32 01/24/17 09:01 White Blood Count 10.45 K/uL Red Blood Count 4.30 M/uL Hemoglobin 11.7 g/dL Hematocrit 37.1 % Mean Corpuscular Volume 86.3 fL Mean Corpuscular Hemoglobin 27.2 pg Mean Corpuscular Hemoglobin Concent 31.5 g/dl Platelet Count 259 K/uL Mean Platelet Volume 9.6 fL Neutrophils (%) (Auto) 66.7 % Lymphocytes (%) (Auto) 24.1 % Monocytes (%) (Auto) 6.2 % Eosinophils (%) (Auto) 1.8 % Basophils (%) (Auto) 0.2 % Neutrophils # (Auto) 6.97 K/uL Lymphocytes # (Auto) 2.52 K/uL Monocytes # (Auto) 0.65 K/uL Eosinophils # (Auto) 0.19 K/uL Basophils # (Auto) 0.02 K/uL RDW Standard Deviation 48.1 fL RDW Coefficient of Variation 15.2 % Immature Granulocyte % (Auto) 1.0 % Immature Granulocyte # (Auto) 0.10 K/uL Sodium Level 144 mmol/L Potassium Level 4.2 mmol/L Chloride Level 107 mmol/L Carbon Dioxide Level 33 mmol/L Anion Gap 4.0 mmol/L Blood Urea Nitrogen 19 mg/dl Creatinine 1.10 mg/dl Est Creatinine Clear Calc Drug Dose 76.2 ml/min Estimated GFR () 62.8 Estimated GFR (Non- 54.1 BUN/Creatinine Ratio 17.7 Random Glucose 96 mg/dl Calcium Level 8.8 mg/dl Total Bilirubin 0.4 mg/dl Direct Bilirubin < 0.1 mg/dl Aspartate Amino Transf (AST/SGOT) 12 U/L Alanine Aminotransferase (ALT/SGPT) 25 U/L Alkaline Phosphatase 100 U/L Total Protein 7.1 gm/dl Albumin 3.0 gm/dl Lipase 80 U/L Bedside Troponin I 0.000 ng/ml [id number] Natriuretic Peptide < 15 pg/ml Magnesium Level 2.1 mg/dl Troponin I < 0.015 ng/ml Thyroid Stimulating Hormone (TSH) 1.720 uIu/ml Head CT on admission showed no acute intracranial abnormality. Admission chest x-ray showed cardiomegaly with no acute cardiopulmonary abnormality as per radiological interpretation. Initial EKG on presentation showed normal sinus rhythm at 79 bpm with low- voltage QRS and nonspecific T-wave abnormality. QTc was 438 ms. A 2nd EKG at 05:43:11 revealed normal sinus rhythm at 77 bpm with low-voltage QRS, unchanged from the prior tracing. A 3rd EKG from 07:32:14 this morning appears to demonstrate atrial flutter at 157 bpm with a low voltage QRS and nonspecific ST-t wave abnormality. Telemetry: Currently sinus rhythm in 80s. Periods of paroxysmal atrial flutter versus fibrillation observed. No significant bradyarrhythmias or pauses Echo: Pending (Joe Carlton PA-C) Assessment & Plan Presentation with urticaria felt to be secondary to Sulindac, admission due to observed symptomatic paroxysmal atrial fibrillation with a rapid ventricular response as detailed above. Symptomatic paroxysmal atrial fibrillation with a rapid ventricular response Electrolytes and thyroid studies OK Echo pending. Agree will switching Carvedilol to metoprolol for better rate and hopefully rhythm control. Given chronic use of Trazodone, Mirapex, and Zofran it may be best to reserve antiarrhythmic (sotalol) therapy for if/when she fails metoprolol. CHADS2 Score 2/6 with patient unable to tolerate ASA, against anticoagulation Observe on telemetry. If echo is OK and patient remains in sinus rhythm on metoprolol would consider discharge on 01/25/2017 with close outpatient follow- up including a 14 day ambulatory electrocardiogram (ZioXT) and Lexiscan nuclear stress testing to assess for ischemia. Continue CPAP and antihypertensive therapies, risk factor and life style modification. Further recommendations pending the above, evaluation by Dr. Olivera, and her ongoing hospitalization. (Joe Carlton PA-C) CARDIOLOGY ATTENDING ADDENDUM: The patient was seen and personally examined. Agree with Joe Carlton PA-C's findings and plans as documented above with additions as noted below. S: Pt feeling well. Assessed in PCU room 219. She is eating lunch. No complaints. Telemetry reveals SR 70 bpm at present. Exam: Last Vital Signs Documentation Date Time Temp Pulse Resp B/P Pulse Ox O2 Delivery O2 Flow Rate FiO2 01/24/17 10:15 143/88 01/24/17 09:26 113 16 01/24/17 08:56 95 01/24/17 08:00 36.8 Room Air 01/24/17 07:59 2.0 CV : regular , no murmurs Ext: no edema Impression: New PAF History of rectal bleeding, not anticoagulation candidate h/o DHF Plan: metoprolol instead of coreg. update echo. (Leonides Olivera,D.O.)
[2017-01-24] MEDS ORDERED: INFLUENZA VIRUS QUAD VACCINE 0.5 ML SYR IM. ONE (14:45)
[2017-01-24] MEDS ORDERED: INFLUENZA ADMINISTRATION CHARGE ONE (14:45)
[2017-01-24] MEDS ORDERED: PNEUMOCOCCAL POLYSACCHARIDES 25 MCG/0.5 ML VIAL/SYR IM. ONE (14:45)
[2017-01-24] MEDS ORDERED: PNEUMOCOCCAL ADMINISTRATION CHARGE ONE (14:45)
--- NOTE | 2017-01-24 16:12 | Progress Note ---
Internal Med Progress Note Date of Service: Jan 24, 2017. Provider Documentation: SUBJECTIVE: Patient denies any palpitations, chest pain, sob. No fever, chills, cough, leg swelling Tele- NSR OBJECTIVE: Vital Signs-as noted below Exam: General-AAOX3, no distress; Morbidly obese Neck-Supple Lungs-AEBE, no wheezing,r ales Heart-S1 S2 normal, no murmurs Extremities-No edema Skin- No hives Lab data as noted below. ASSESSMENT & PLAN: PAROXYSMAL ATRIAL FIBRILLATION : Experiencing palpitations intermittently for about 1 month. At least 3 episodes of paroxysmal AF in ED with rapid ventricular response. First 2 episodes converted spontaneously to NSR; 3rd episode was more prolonged and required IV metoprolol before converting. -Started on Metoprolol 25 mg PO q 6 hours- Switched from coreg -Anticoagulation: Patient has frequent rectal bleeding and does not tolerate antithrombotic meds; therefore, will not anticoagulate at this time. -Echo ordered -Cardiology consulted - Appreciate inputs. CHRONIC LEFT VENTRICULAR DIASTOLIC CONGESTIVE HEART FAILURE : Worsening edema and weight gain since starting sulindac. -Increased furosemide to 40 mg BID. -Follow and titrate diuretics. CHRONIC LYMPHEDEMA -Diuretics as tolerated. HYPERTENSION BP elevated in ED; sulindac may be contributing factor. -Changed beta mitchell from carvedilol to metoprolol. -Continue losartan. SLEEP APNEA -Continue CPAP. WEAKNESS / NUMBNESS LEFT HAND 2 week history of weakness / numbness left hand. -No focal findings on exam. - CT head- Negative URTICARIA Onset about 1 week after starting sulindac. Avoid NSAID's. -Received IV methylprednisone in ED. -Loratadine 10 mg daily. -Continue ranitidine. -Steroid taper if urticaria recurs. VTE PROPHYLAXIS -Moderate risk for VTE. -No anticoagulants due to chronic rectal bleeding. -SCD's / Ambulate. RESUSCITATION STATUS Discussed with patient. She does not have a living will. She would like resuscitation attempted in the event of a cardiopulmonary arrest if there is a reasonable chance of a meaningful recovery, but does not want prolonged extraordinary measures if prognosis is poor. Therefore, code status = "Level 1" (full resuscitation). DISPOSITION Admit to Telemetry Unit. Expected discharge to home. Family Medicine follow-up with Dr. Abby Shipman. Cardiology follow-up with Dr. Mandeep Shipman. Vital Signs: Date Time Temp Pulse Resp B/P Pulse Ox O2 Delivery O2 Flow Rate FiO2 01/24/17 15:31 36.5 78 20 113/72 93 Room Air 01/24/17 11:30 36.8 84 22 152/68 95 01/24/17 10:15 143/88 01/24/17 09:26 113 16 01/24/17 08:56 110 20 95 01/24/17 08:45 152/121 01/24/17 08:30 149/97 01/24/17 08:26 108 21 96 01/24/17 08:15 154/112 01/24/17 08:00 170/101 01/24/17 08:00 36.8 102 18 170/101 99 Room Air 01/24/17 07:59 98 Nasal Cannula 2.0 01/24/17 07:56 101 18 97 01/24/17 07:51 179/94 01/24/17 07:50 85 01/24/17 07:47 152 168/106 01/24/17 07:45 151 15 168/106 97 01/24/17 07:38 176/105 01/24/17 07:37 163 01/24/17 07:35 169/124 01/24/17 07:34 163/126 01/24/17 07:30 153 15 96 01/24/17 07:26 37.0 91 16 158/83 94 01/24/17 07:26 158/83 01/24/17 07:25 127/113 01/24/17 07:15 108 22 94 01/24/17 07:00 82 16 95 01/24/17 06:26 75 01/24/17 06:24 167 01/24/17 05:54 78 18 143/89 93 Room Air 01/24/17 05:41 75 01/24/17 05:39 150 01/24/17 04:15 88 01/24/17 04:12 Room Air 01/24/17 03:54 36.9 85 25 195/81 98 Room Air Lab Results: Results Past 24 Hours Test 01/24/17 04:28 01/24/17 04:32 01/24/17 09:01 Range/Units White Blood Count 10.45 4.8-10.8 K/uL Red Blood Count 4.30 4.2-5.4 M/uL Hemoglobin 11.7 12.0-16.0 g/dL Hematocrit 37.1 37-47 % Mean Corpuscular Volume 86.3 80-100 fL Mean Corpuscular Hemoglobin 27.2 25-34 pg Mean Corpuscular Hemoglobin Concent 31.5 32-36 g/dl Platelet Count 259 130-400 K/uL Mean Platelet Volume 9.6 7.4-10.4 fL Neutrophils (%) (Auto) 66.7 % Lymphocytes (%) (Auto) 24.1 % Monocytes (%) (Auto) 6.2 % Eosinophils (%) (Auto) 1.8 % Basophils (%) (Auto) 0.2 % Neutrophils # (Auto) 6.97 1.4-6.5 K/uL Lymphocytes # (Auto) 2.52 1.2-3.4 K/uL Monocytes # (Auto) 0.65 0.11-0.59 K/uL Eosinophils # (Auto) 0.19 0-0.5 K/uL Basophils # (Auto) 0.02 0-0.2 K/uL RDW Standard Deviation 48.1 36.4-46.3 fL RDW Coefficient of Variation 15.2 11.5-14.5 % Immature Granulocyte % (Auto) 1.0 % Immature Granulocyte # (Auto) 0.10 0.00-0.02 K/uL Sodium Level 144 136-145 mmol/L Potassium Level 4.2 3.5-5.1 mmol/L Chloride Level 107 98-107 mmol/L Carbon Dioxide Level 33 21-32 mmol/L Anion Gap 4.0 3-11 mmol/L Blood Urea Nitrogen 19 7-18 mg/dl Creatinine 1.10 0.60-1.20 mg/dl Est Creatinine Clear Calc Drug Dose 76.2 ml/min Estimated GFR () 62.8 Estimated GFR (Non- 54.1 BUN/Creatinine Ratio 17.7 10-20 Random Glucose 96 70-99 mg/dl Calcium Level 8.8 8.5-10.1 mg/dl Total Bilirubin 0.4 0.2-1 mg/dl Direct Bilirubin < 0.1 0-0.2 mg/dl Aspartate Amino Transf (AST/SGOT) 12 15-37 U/L Alanine Aminotransferase (ALT/SGPT) 25 12-78 U/L Alkaline Phosphatase 100 45-117 U/L Total Protein 7.1 6.4-8.2 gm/dl Albumin 3.0 3.4-5.0 gm/dl Lipase 80 73-393 U/L Bedside Troponin I 0.000 0-0.045 ng/ml RU-[id number]-Type Natriuretic Peptide < 15 0-900 pg/ml Magnesium Level 2.1 1.8-2.4 mg/dl Troponin I < 0.015 0-0.045 ng/ml Thyroid Stimulating Hormone (TSH) 1.720 0.300-4.500 uIu/ml
[2017-01-24] MEDS: OXYCODONE HCL IR 5 MG TAB (IMMEDIATE RELEASE) PO PRN (17:44)
[2017-01-24] MEDS ORDERED: TRAZODONE HCL 100 MG TAB PO SCH (21:00)
[2017-01-25 04:04] VITALS: BP 110/57; PULSE 78; TEMP 36.5; O2SAT 98
[2017-01-25] MEDS: METOPROLOL TARTRATE 25 MG TAB PO SCH ×3 (06:30→08:21)
[2017-01-25 06:59] LABS: HEMATOCRIT 36.9 % (37-47); MEAN CELL VOLUME 85.8 fL (80-100); MEAN CORPUSCULAR HGB CONC 31.4 g/dl (32-36); MEAN PLATELET VOLUME 9.7 fL (7.4-10.4); PLATELET COUNT 277 K/uL (130-400); WHITE BLOOD COUNT 13.38 K/uL (4.8-10.8)
[2017-01-25 07:29] LABS: BUN/CREATININE RATIO 22.7 (10-20); CALCIUM 8.4 mg/dl (8.5-10.1); CREATININE 0.94 mg/dl (0.60-1.20)
[2017-01-25 08:06] VITALS: BP 94/59; PULSE 66; TEMP 36.3; O2SAT 92
[2017-01-25] MEDS: LOSARTAN POTASSIUM 25 MG TAB PO SCH (08:21)
[2017-01-25] MEDS: LORATADINE 10 MG TAB PO SCH (08:23)
[2017-01-25] MEDS: GABAPENTIN 100 MG CAP PO SCH (08:23)
[2017-01-25] MEDS: FUROSEMIDE 40 MG TAB PO SCH (08:24)
[2017-01-25] MEDS: POTASSIUM CHLORIDE 20 MEQ TABCR PO SCH (08:24)
[2017-01-25] MEDS: RANITIDINE HCL 150 MG TAB PO SCH (08:25)
--- NOTE | 2017-01-25 09:34 | Cardiology Follow-Up ---
Subjective General Date of Service: Jan 25, 2017. Chief Complaint: PAF Pt evaluation today including: conversation w/ patient, physical exam, chart review, lab review, review of studies, review of inpatient medication list History of Present Illness Patient seen and examined. She did not have home CPAP last night Unable to tolerate the supplied CPAP She notes that her legs have not looked this good in years. No chest pain. No dyspnea. EKG dated and timed 25-JAN-2017 @ 06:29:13: Normal sinus rhythm. Low voltage QRS. Cannot rule out Anterior infarct , age undetermined. When compared with ECG of 24-JAN-2017 07:32, sinus rhythm has replaced atrial fibrillation, vent. rate has decreased BY 96 BPM, non-specific change in ST segment in Inferior leads has replaced inverted T waves in Inferior leads. Telemetry: Currently in normal sinus at 70 bpm. 8 beat run of what appears to be atrial tachycardia at 00:55:04. A few very short episodes of what appears to be paroxysmal atrial fibrillation noted, last observed on 01/25/2017 at 00:19:20. Allergies Coded Allergies: Sulindac (Verified Allergy, Intermediate, HIVES, 01/24/17) Adhesives (Verified Allergy, Unknown, "Tape" -- blisters, 01/24/17) Cyclobenzaprine (Verified Allergy, Unknown, RASH, 01/24/17) Lisinopril (Verified Allergy, Unknown, Cough, 01/24/17) Source - PT/[facility] Tetanus Toxoid (Unverified Allergy, Unknown, IRRITABILITY, 01/24/17) Hydrochlorothiazide w/Triamterene (Unverified Adverse Reaction, Severe, COUGH, 01/24/17) Social History Smoking Status: Former Smoker Hx Tobacco Use In Past Year?: No Hx Alcohol Use - Type And Amou: No Hx Substance Use - Type And Am: Yes (OCCASIONAL MARIJUANA (1-2X/MONTH)) Problem List Medical Problems: (1) Allergic reaction Status: Acute (2) Bilateral leg pain Status: Acute (3) Congestive heart disease Status: Acute (4) History of CHF (congestive heart failure) Status: Acute (5) New onset a-fib Status: Acute (6) Osteoarthritis of knees, bilateral Status: Acute (7) Tachycardia Status: Acute Physical Exam Vital Signs Last Vital Signs Documentation Date Time Temp Pulse Resp B/P Pulse Ox O2 Delivery O2 Flow Rate FiO2 01/25/17 08:06 36.3 66 18 94/59 92 Room Air 01/25/17 04:00 2.0 Physical Exam Constitutional: General Apperance: obese Level of Distress: NAD Psychiatric: Mental Status: active & alert Orientation: to time, to place, to person Memory: recent memory normal, remote memory normal Head: normocephalic, atraumatic Eyes: Pupils: PERRLA Neck: pertinent finding (No overt JVD) Lungs: Respiratory effort: no dyspnea Auscultation: breath sounds normal, no wheezing, no rales/crackles, no rhonchi Cardiovascular: Heart Auscultation: RRR, normal S1, normal S2, no murmurs, no rubs, no gallops Abdomen: Bowel Sounds: normal Inspection & Palpation: soft, non-distended, no masses Extremities: no cyanosis, no edema, no clubbing Neurologic: Cranial Nerves: grossly intact Assessment and Plan Assessment and Plan Presentation with urticaria felt to be secondary to Sulindac, admission due to observed symptomatic paroxysmal atrial fibrillation with a rapid ventricular response Symptomatic paroxysmal atrial fibrillation with a rapid ventricular response Electrolytes and thyroid studies OK Carvedilol changed to metoprolol. See below History of diastolic heart failure No evidence of decompensation RECOMMENDATIONS/PLAN: Await resting echocardiogram interpretation summary. Change Metoprolol to 50 mg by mouth twice a day Hesitant to add antiarrhythmic therapy (sotalol) given chronic use of Trazodone , Mirapex, and Zofran Hold losartan if hypotension observed with the above. CHADS2 Score 2/6 with patient unable to tolerate ASA, against anticoagulation due to chronic rectal bleeding Ambulatory electrocardiogram (14-day ZioXT) and Lexiscan nuclear stress testing to assess for ischemia. Close outpatient cardiology follow-up Continue CPAP, risk factor and life style modification. CARDIOLOGY ATTENDING ADDENDUM: The patient was seen and personally examined. Agree with Joe Carlton PA-C's findings and plans as documented above with additions as noted below. S: patient feeling well, however a little tired as she rested poorly last evening. Exam: Last Vital Signs Documentation Date Time Temp Pulse Resp B/P Pulse Ox O2 Delivery O2 Flow Rate FiO2 01/25/17 08:06 36.3 66 18 94/59 92 Room Air 01/25/17 04:00 2.0 CV: Regular Ext: no edema Data: Telemetry revealed very few brief salvos of AF versus complex supraventricular ectopy overnight. Impression: as noted above. Plan: as noted above. Laboratory Results Last 24 Hours Test 01/25/17 06:35 White Blood Count 13.38 K/uL Red Blood Count 4.30 M/uL Hemoglobin 11.6 g/dL Hematocrit 36.9 % Mean Corpuscular Volume 85.8 fL Mean Corpuscular Hemoglobin 27.0 pg Mean Corpuscular Hemoglobin Concent 31.4 g/dl RDW Standard Deviation 47.9 fL RDW Coefficient of Variation 15.3 % Platelet Count 277 K/uL Mean Platelet Volume 9.7 fL Sodium Level 144 mmol/L Potassium Level 4.0 mmol/L Chloride Level 106 mmol/L Carbon Dioxide Level 31 mmol/L Anion Gap 7.0 mmol/L Blood Urea Nitrogen 21 mg/dl Creatinine 0.94 mg/dl Est Creatinine Clear Calc Drug Dose 90.4 ml/min Estimated GFR () 75.9 Estimated GFR (Non- 65.5 BUN/Creatinine Ratio 22.7 Random Glucose 84 mg/dl Calcium Level 8.4 mg/dl
--- NOTE | 2017-01-25 10:37 | ECHOCARDIOGRAM REPORT ---
*NOTICE TO RECEIVING [employer] This information is strictly Confidential and protected under [place] law. [place] law prohibits you from making any further disclosure of this information unless further disclosure is expressly permitted by the written consent of the person to whom it pertains or is authorized by law. A general authorization for the release of medical or other information is not sufficient for this purpose. Hospital accepts no responsibility if the information is made available to any other person, INCLUDING THE PATIENT. Interpretation Summary * Name: MARLENE GARSIA Study Date: 01/25/2017 06:55 AM BP: 110/57 mmHg * Patient Location: C.2T\S\E219\S\1 HR: 78 * : 1955 (M/d/yyyy) Gender: Female Height: 65 in * Age: 62 yrs Ethnicity: CA Weight: 306 lb * Ordering Physician: Bong Tobar * Referring Physician: Self, Referred * Performed By: Fabrizio Avelar RCS * * Reason For Study: A-FIB * BSA: 2.4 m2 * The study was technically adequate. * -- Conclusions -- * Sinus rhythm was noted during the echocardiogram evaluation. * There is normal left ventricular wall thickness. * The left ventricular wall motion is normal. * The LV Ejection Fraction = 55-60%. * Diastolic dysfunction, Grade II (pseudonormalization pattern). * Doppler findings do not suggest pulmonary hypertension. * There is trace to small loculated pericardial effusion anteriorly and adjacent to the right ventricular free wall. * There are no echocardiographic indications of cardiac tamponade. Procedure Details * A complete two-dimensional transthoracic echocardiogram was performed (2D, M-mode, Doppler and color flow Doppler). * A contrast injection of Definity was performed to improve assessment of LV function. * Contrast was injected into an intravenous site in the left arm. * One vial of Definity ultrasound contrast was diluted in normal saline to a total volume of 10 ml. A total of '2' ml of solution was administered during imaging. * Lot # [id number] of Definity utilized for procedure. * Expiration date 1APR18. * The attending nurse who injected the contrast agent was Renetta Rios RN. Left Ventricle * The left ventricle is normal in size. * There is normal left ventricular wall thickness. * Left ventricular systolic function is normal. * Ejection Fraction = 55-60%. * The left ventricular wall motion is normal. Right Ventricle * The right ventricle is normal in size and function. Atria * The left atrial size is normal. * Right atrial size is normal. * There is no evidence of atrial septal defect, but resolution does not allow assessment for a patent foramen ovale. Mitral Valve * The mitral valve is normal. * There is no mitral valve stenosis. * Significant mitral regurgitation is absent. Tricuspid Valve * The tricuspid valve is normal. * There is no tricuspid stenosis. * Significant tricuspid regurgitation is absent. * Doppler findings do not suggest pulmonary hypertension. Aortic Valve * The aortic valve is trileaflet. * Aortic stenosis is absent. * There is no significant aortic regurgitation. Pulmonic Valve * The pulmonary valve is not well seen, but the Doppler examination is normal without significant regurgitation or stenosis. Great Vessels * The aortic root and proximal ascending aorta are normal sized. Pericardium/Pleural * There is trace to small loculated pericardial effusion anteriorly and adjacent to the right ventricualar free wall. * There are no echocardiographic indications of cardiac tamponade. Great Vessels * Normal inferior vena cava diameter and respiratory variation suggests normal central venous pressure. Left Ventricular Diastolic Function * Diastolic dysfunction, Grade II (pseudonormalization pattern). MMode 2D Measurements and Calculations IVSd 1.1 cm IVSs 1.4 cm LVIDd 5.5 cm LVIDs 3.5 cm LVPWd 1.2 cm LVPWs 1.5 cm IVS/LVPW 0.90 FS 36.0 % EDV(Teich) 147.8 ml ESV(Teich) 51.6 ml EF(Teich) 65.1 % EDV(cubed) 166.9 ml ESV(cubed) 43.7 ml EF(cubed) 73.8 % % IVS thick 29.8 % % LVPW thick 27.1 % LV mass(C)d 252.3 grams LV mass(C)dI 106.5 grams/m\S\2 LV mass(C)s 185.5 grams LV mass(C)sI 78.3 grams/m\S\2 CO(Teich) 6.2 l/min CI(Teich) 2.6 l/min/m\S\2 SV(Teich) 96.2 ml SI(Teich) 40.6 ml/m\S\2 CO(cubed) 7.9 l/min CI(cubed) 3.3 l/min/m\S\2 SV(cubed) 123.3 ml SI(cubed) 52.0 ml/m\S\2 Ao root diam 3.1 cm Ao root area 7.8 cm\S\2 ACS 1.9 cm LA dimension 3.5 cm LA/Ao 1.1 LVAd ap4 33.4 cm\S\2 LVLd ap4 8.4 cm EDV(MOD-sp4) 110.0 ml LVAs ap4 17.5 cm\S\2 LVLs ap4 7.0 cm ESV(MOD-sp4) 38.0 ml EF(MOD-sp4) 65.5 % LVAd ap2 32.1 cm\S\2 LVLd ap2 8.4 cm EDV(MOD-sp2) 104.0 ml LVAs ap2 15.6 cm\S\2 LVLs ap2 6.5 cm ESV(MOD-sp2) 33.0 ml EF(MOD-sp2) 68.3 % CO(MOD-sp4) 4.6 l/min CI(MOD-sp4) 1.9 l/min/m\S\2 SV(MOD-sp4) 72.0 ml SI(MOD-sp4) 30.4 ml/m\S\2 CO(MOD-sp2) 4.5 l/min CI(MOD-sp2) 1.9 l/min/m\S\2 SV(MOD-sp2) 71.0 ml SI(MOD-sp2) 30.0 ml/m\S\2 Doppler Measurements and Calculations MV E max tucker 102.7 cm/sec MV A max tucker 122.9 cm/sec MV E/A 0.84 MV P1/2t max tucker 130.9 cm/sec MV P1/2t 69.4 msec MVA(P1/2t) 3.2 cm\S\2 MV dec slope 552.4 cm/sec\S\2 MV dec time 0.26 sec PA V2 max 84.4 cm/sec PA max PG 2.8 mmHg
[2017-01-25 11:10] VITALS: BP 113/76; PULSE 64; TEMP 36.5; O2SAT 95
[2017-01-25] MEDS: OXYCODONE HCL IR 5 MG TAB (IMMEDIATE RELEASE) PO PRN (11:24)
[2017-01-25 11:32] VITALS: BP 113/76; PULSE 64; TEMP 36.5; O2SAT 95
--- NOTE | 2017-01-25 12:12 | Progress Note ---
Internal Med Progress Note Date of Service: Jan 25, 2017. Provider Documentation: SUBJECTIVE: Patient denies any palpitations, chest pain, sob. Feels a bit tired as could not rest well at night in the hospital No fever, chills, cough, leg swelling Tele- NSR with few salvos of Atrial fibrillation, HR 60-70s OBJECTIVE: Vital Signs-as noted below Exam: General-AAOX3, no distress; Morbidly obese Neck-Supple Lungs-AEBE, no wheezing,r ales Heart-S1 S2 normal, no murmurs Extremities-No edema Skin- No hives Lab data as noted below. ASSESSMENT & PLAN: PAROXYSMAL ATRIAL FIBRILLATION : Now NSR spontaneously converted Experiencing palpitations intermittently for about 1 month. At least 3 episodes of paroxysmal AF in ED with rapid ventricular response. First 2 episodes converted spontaneously to NSR; 3rd episode was more prolonged and required IV metoprolol before converting. -Started on Metoprolol 25 mg PO q 6 hours- Increased to 50 MG PO BID today due to few salvos of A fib overnight. -Anticoagulation: Patient has frequent rectal bleeding and does not tolerate antithrombotic meds; therefore, will not anticoagulate at this time. Cannot tolerate even Aspirin -Echo - EF 55-60%, Gd II diastolic dysfucntion, Small loculated pericardial effusion anteriorly and adjacent to Rt ventricular free wall, no cardiac tamponade -Cardiology consulted - Appreciate inputs. Cleared for discharge - Recommends Ambulatory electrocardiogram (14-day ZioXT) and Lexiscan nuclear stress testing to assess for ischemia. CHRONIC LEFT VENTRICULAR DIASTOLIC CONGESTIVE HEART FAILURE : Worsening edema and weight gain since starting sulindac. -Increased furosemide to 40 mg BID--> decrease to home dose 40 mg daily -Follow and titrate diuretics. CHRONIC LYMPHEDEMA -Diuretics as tolerated. HYPERTENSION BP elevated in ED; sulindac may be contributing factor. -Changed beta mitchell from carvedilol to metoprolol. -Continue losartan. SLEEP APNEA -Continue CPAP. WEAKNESS / NUMBNESS LEFT HAND 2 week history of weakness / numbness left hand. -No focal findings on exam. - CT head- Negative URTICARIA Onset about 1 week after starting sulindac. Avoid NSAID's. -Received IV methylprednisone in ED. -Loratadine 10 mg daily was given while in hospital -Continue ranitidine. VTE PROPHYLAXIS -Moderate risk for VTE. -No anticoagulants due to chronic rectal bleeding. -SCD's / Ambulate. RESUSCITATION STATUS Discussed with patient. She does not have a living will. She would like resuscitation attempted in the event of a cardiopulmonary arrest if there is a reasonable chance of a meaningful recovery, but does not want prolonged extraordinary measures if prognosis is poor. Therefore, code status = "Level 1" (full resuscitation). DISPOSITION Eager to be discharged home. Okay to discharge home today Family Medicine follow-up with Dr. Abby Shipman. Cardiology follow-up with Dr. Mandeep Shipman. Ambulatory electrocardiogram (14-day ZioXT) and Lexiscan nuclear stress testing to assess for ischemia outpatient. Arrangements to be made by cardiology Vital Signs: Date Time Temp Pulse Resp B/P Pulse Ox O2 Delivery O2 Flow Rate FiO2 01/25/17 11:32 36.5 64 18 95 Room Air 01/25/17 11:10 36.5 64 18 113/76 95 Room Air 01/25/17 08:06 36.3 66 18 94/59 92 Room Air 01/25/17 08:00 Room Air 01/25/17 04:04 36.5 78 19 110/57 98 Room Air 01/25/17 04:00 2.0 01/24/17 23:59 2.0 01/24/17 23:21 36.5 72 109/73 96 Room Air 01/24/17 20:00 96 Room Air 01/24/17 19:49 36.6 79 16 132/71 93 Room Air 01/24/17 16:00 95 Room Air 01/24/17 15:31 36.5 78 20 113/72 93 Room Air Lab Results: Results Past 24 Hours Test 01/25/17 06:35 Range/Units White Blood Count 13.38 4.8-10.8 K/uL Red Blood Count 4.30 4.2-5.4 M/uL Hemoglobin 11.6 12.0-16.0 g/dL Hematocrit 36.9 37-47 % Mean Corpuscular Volume 85.8 80-100 fL Mean Corpuscular Hemoglobin 27.0 25-34 pg Mean Corpuscular Hemoglobin Concent 31.4 32-36 g/dl RDW Standard Deviation 47.9 36.4-46.3 fL RDW Coefficient of Variation 15.3 11.5-14.5 % Platelet Count 277 130-400 K/uL Mean Platelet Volume 9.7 7.4-10.4 fL Sodium Level 144 136-145 mmol/L Potassium Level 4.0 3.5-5.1 mmol/L Chloride Level 106 98-107 mmol/L Carbon Dioxide Level 31 21-32 mmol/L Anion Gap 7.0 3-11 mmol/L Blood Urea Nitrogen 21 7-18 mg/dl Creatinine 0.94 0.60-1.20 mg/dl Est Creatinine Clear Calc Drug Dose 90.4 ml/min Estimated GFR () 75.9 Estimated GFR (Non- 65.5 BUN/Creatinine Ratio 22.7 10-20 Random Glucose 84 70-99 mg/dl Calcium Level 8.4 8.5-10.1 mg/dl
[2017-01-25] MEDS ORDERED: METO50TA17 PO (12:13)
--- NOTE | 2017-01-25 12:15 | Discharge Instructions ---
Discharge Instructions Date of Service Jan 25, 2017. Admission Reason for Admission: Atrial Fibrillation Discharge Discharge Diagnosis / Problem: 1. Atrial fibrillation with RVR 2. Urticaria( Allergy) secondary to Sulindac Discharge Goals Goal(s): Improve disease control, Prevent Disease Progression Activity Recommendations Activity Limitations: resume your previous activity . Instructions / Follow-Up Instructions / Follow-Up MEDICATION CHANGES: 1. New medication: Metoprolol 50 mg PO BID 2. Discontinued Carvedilol FOLLOW UP 1. With PCP, Dr Abby Shipman 01/29/17 AT 10:50 AM 2. With cardiology per schedule. Ambulatory electrocardiogram (14-day ZioXT) and Lexiscan nuclear stress testing to assess for ischemia to be arranged by cardiology Current Hospital Diet Patient's current hospital diet: AHA Diet (Heart Healthy) Discharge Diet Recommended Diet: AHA Diet (Heart Healthy), Low Sodium Diet (2gm Na), Low Fat Diet Pending Studies Studies pending at discharge: no Medical Emergencies . Who to Call and When: Medical Emergencies: If at any time you feel your situation is an emergency, please call 911 immediately. . Non-Emergent Contact Non-Emergency issues call your: Primary Care Provider . . "Provider Documentation" section prepared by Malika Kong. VTE Core Measure Inpt VTE Proph given/why not?: SCD's, Contraindicated (chronic rectal bleeding)
--- NOTE | 2017-01-25 12:18 | Discharge Summary ---
Discharge Summary Date of Service Jan 25, 2017. Discharge Summary Admission Date: Jan 24, 2017 at 06:07 Discharge Date: Jan 25, 2017 Discharge Disposition: Home Principal Diagnosis: 1. Atrial fibrillation with RVR 2. Urticaria (Allergy) secondary to Sulindac 3. Secondary Diagnoses/Problems: 1. Chronic diastolic CHF 2. Hypertension 3. STEFANY 4. Morbid obesity 5. Chronic lymphedema Procedures: Tele monitoring CXR CT head Serial EKG Troponin Pending Studies/Follow-Up: Instructions / Follow-Up MEDICATION CHANGES: 1. New medication: Metoprolol 50 mg PO BID 2. Discontinued Carvedilol FOLLOW UP 1. With PCP, Dr Abby Shipman 01/29/17 AT 10:50 AM 2. With cardiology per schedule. Ambulatory electrocardiogram (14-day ZioXT) and Lexiscan nuclear stress testing to assess for ischemia to be arranged by cardiology Medication Reconciliation New Medications: Metoprolol Tartrate (Metoprolol Tartrate) 50 Mg Tab 50 MG PO BID for 30 Days, #60 TAB 2 Refills Continued Medications: Albuterol Sulfate (Proventil Hfa) 108 Mcg/Act Aer 2 PUFFS INH Q6H PRN for SOB/Wheezing Furosemide (Lasix) 40 Mg Tab 40 MG PO QAM Gabapentin (Gabapentin) 100 Mg Cap 100 MG PO BID Lorazepam (Lorazepam) 1 Mg Tab 1 MG PO Q6 PRN for Anxiety Ondansetron Hcl (Zofran) 4 Mg Tab 4 MG PO Q8H PRN for Nausea, TAB Potassium Ext Rel (Klor-Con) 20 Meq Tabcr 20 MEQ PO QAM Pramipexole (Mirapex) 0.125 Mg Tab 2 TABS PO QAM, TAB Pramipexole (Mirapex) 0.125 Mg Tab 0.125 MG PO QPM, TAB Ranitidine HCl (Ranitidine HCl) 150 Mg Tab 150 MG PO BID Trazodone Hcl (Trazodone) 100 Mg Tab 100 MG PO HS Discontinued Medications: Carvedilol (Coreg) 6.25 Mg Tab 6.25 MG PO BID, TAB Losartan Potassium (Cozaar) 25 Mg Tab 25 MG PO QAM Sulindac (Sulindac) 150 Mg Tab 150 MG PO BIDM Admission Information HPI (per Admitting provider): 62 YO female followed by Dr. Abby Shipman for Family Medicine and Dr. Mandeep Shipman for Cardiology. History of diastolic CHF, hypertension, and other problems noted below. Last echo performed an [facility] 03/13/14 demonstrated normal LV wall motion and function; grade II diastolic dysfunction was noted. LA diameter was normal. Dobutamine stress echo did not show any evidence of stress-induced ischemia. Started on sulindac 01/15 for bilateral knee pain. Noted worsening dependent edema and 4 lb weight gain. Developed urticaria last night and came to ED for evaluation. Received methylprednisolone for urticaria In ED during the night she was noted to have a least 2 runs of atrial fibrillation with rapid ventricular response; both times she spontaneously returned to NSR. Patient indicates, in retrospect, that she has been having intermittent palpitations for about a month. They have been self-limited, sometimes associated with dyspnea and lightheadedness. Another episode of AF occurred this morning around 07:45; this episode was more prolonged and associated with midsternal chest pressure and dyspnea. Received IV metoprolol and converted to NSR. No prior history of AF. Has been under a lot of stress due to injury that her recently suffered that has required a number of procedures and rehab. . Physical Exam (per Admitting): General Appearance: WD/WN, no apparent distress, + obese Head: normocephalic, atraumatic Eyes: normal inspection, PERRL, EOMI, sclerae normal ENT: normal ENT inspection, hearing grossly normal, TMs normal, pharynx normal Neck: supple, no adenopathy, thyroid normal, trachea midline, + pertinent finding (neck veins difficult to assess) Respiratory/Chest: lungs clear, no respiratory distress Cardiovascular: regular rate, rhythm, no gallop, no murmur, normal peripheral pulses, + pertinent finding (3+ pretibial edema; neck veins difficult to assess) Abdomen/GI: normal bowel sounds, non tender, soft, no organomegaly, no pulsatile mass Extremities/Musculoskelatal: no calf tenderness, normal capillary refill, + pedal edema (2+) Neurologic/Psych: web site specialist II-XII nml as tested (PERRL, EOMI, no facial palsy, no dysarthria), no motor/sensory deficits (motor testing upper and lower extremities intact), alert, normal mood/affect, oriented x 3 Skin: normal color, warm/dry, + rash (venous stasis changes), + pertinent finding (excoriations on arms; no urticaria at time of my assessment) Lymphatic: no adenopathy Hospital Course PAROXYSMAL ATRIAL FIBRILLATION : Now NSR spontaneously converted Experiencing palpitations intermittently for about 1 month. At least 3 episodes of paroxysmal AF in ED with rapid ventricular response. First 2 episodes converted spontaneously to NSR; 3rd episode was more prolonged and required IV metoprolol before converting. -Started on Metoprolol 25 mg PO q 6 hours- Increased to 50 MG PO BID today due to few salvos of A fib overnight. -Anticoagulation: Patient has frequent rectal bleeding and does not tolerate antithrombotic meds; therefore, will not anticoagulate at this time. Cannot tolerate even Aspirin. Explained risks of stroke with A fib. -Echo - EF 55-60%, Gd II diastolic dysfucntion, Small loculated pericardial effusion anteriorly and adjacent to Rt ventricular free wall, no cardiac tamponade -Cardiology consulted - Appreciate inputs. Cleared for discharge - Recommends Ambulatory electrocardiogram (14-day ZioXT) and Lexiscan nuclear stress testing to assess for ischemia. URTICARIA- Resolved Onset about 1 week after starting sulindac. Avoid NSAID's. -Received IV methylprednisone in ED. -Loratadine 10 mg daily was given while in hospital -Continue ranitidine. CHRONIC LEFT VENTRICULAR DIASTOLIC CONGESTIVE HEART FAILURE : Worsening edema and weight gain since starting sulindac. -Increased furosemide to 40 mg BID--> decrease to home dose 40 mg daily -Follow and titrate diuretics. CHRONIC LYMPHEDEMA -Diuretics as tolerated. HYPERTENSION BP elevated in ED; sulindac may be contributing factor. -Changed beta mitchell from carvedilol to metoprolol. -Continue losartan. SLEEP APNEA -Continue CPAP. WEAKNESS / NUMBNESS LEFT HAND 2 week history of weakness / numbness left hand. -No focal findings on exam. - CT head- Negative VTE PROPHYLAXIS -Moderate risk for VTE. -No anticoagulants due to chronic rectal bleeding. -SCD's / Ambulate. RESUSCITATION STATUS Discussed with patient. She does not have a living will. She would like resuscitation attempted in the event of a cardiopulmonary arrest if there is a reasonable chance of a meaningful recovery, but does not want prolonged extraordinary measures if prognosis is poor. Therefore, code status = "Level 1" (full resuscitation). DISPOSITION Eager to be discharged home. Okay to discharge home today Family Medicine follow-up with Dr. Abby Shipman. Cardiology follow-up with Dr. Mandeep Shipman. Ambulatory electrocardiogram (14-day ZioXT) and Lexiscan nuclear stress testing to assess for ischemia outpatient. Arrangements to be made by cardiology Total time spent on discharge = 35 minutes This includes examination of the patient, discharge planning, medication reconciliation, and communication with other providers. Discharge Instructions Discharge Goals Goal(s): Improve disease control, Prevent Disease Progression Activity Recommendations Activity Limitations: resume your previous activity . Instructions / Follow-Up Instructions / Follow-Up MEDICATION CHANGES: 1. New medication: Metoprolol 50 mg PO BID 2. Discontinued Carvedilol FOLLOW UP 1. With PCP, Dr Abby Shipman 01/29/17 AT 10:50 AM 2. With cardiology per schedule. Ambulatory electrocardiogram (14-day ZioXT) and Lexiscan nuclear stress testing to assess for ischemia to be arranged by cardiology Current Hospital Diet Patient's current hospital diet: AHA Diet (Heart Healthy) Discharge Diet Recommended Diet: AHA Diet (Heart Healthy), Low Sodium Diet (2gm Na), Low Fat Diet Pending Studies Studies pending at discharge: no Medical Emergencies . Who to Call and When: Medical Emergencies: If at any time you feel your situation is an emergency, please call 911 immediately. . Non-Emergent Contact Non-Emergency issues call your: Primary Care Provider . . "Provider Documentation" section prepared by Malika Kong. VTE Core Measure Inpt VTE Proph given/why not?: SCD's, Contraindicated (chronic rectal bleeding)
[2017-01-25] MEDS ORDERED: METOPROLOL TARTRATE 50 MG TAB PO SCH (21:00)
[2017-01-30] MEDS ORDERED: RANI150T2 PO (05:04)
[2017-01-30] MEDS ORDERED: NRN100 PO (05:04)
[2017-01-30] MEDS ORDERED: ATV1 PO (05:04)
[2017-01-30] MEDS ORDERED: TRAZ100T29 PO (12:32)
[2017-02-01] MEDS ORDERED: LPR25 PO (15:28)
[2017-05-03] MEDS ORDERED: PSYL58.636 PO (09:21)
[2017-05-03] MEDS ORDERED: MRLP17X PO (09:21)
[2017-05-03] MEDS ORDERED: FRRS300 PO (09:21)
[2017-05-03] MEDS ORDERED: DOCU-94 PO (09:21)
== END 2017-01-25 13:13 | disposition home or self-care (01) | DRG 309 ==
LOC: ENRESERVTM → ENRESERVDT → C.EDB 03:47 → C.EDINP 06:07 → C.2T 11:44
PROVIDERS: ADMIT Hospitalist; ATTEND Internal Medicine
DX: I48.0 Paroxysmal atrial fibrillation (principal); I50.32 Chronic diastolic (congestive) heart failure; I31.3 Pericardial effusion (noninflammatory); Z68.43 Body mass index [BMI] 50.0-59.9, adult; I89.0 Lymphedema, not elsewhere classified; I10 Essential (primary) hypertension; G47.33 Obstructive sleep apnea (adult) (pediatric); L50.0 Allergic urticaria; E66.01 Morbid (severe) obesity due to excess calories; Z87.891 Personal history of nicotine dependence; Z83.3 Family history of diabetes mellitus; Z82.49 Family history of ischemic heart disease and other diseases of the circulatory system; Z80.1 Family history of malignant neoplasm of trachea, bronchus and lung; K64.8 Other hemorrhoids; G43.909 Migraine, unspecified, not intractable, without status migrainosus; F32.9 Major depressive disorder, single episode, unspecified; F41.9 Anxiety disorder, unspecified; K21.9 Gastro-esophageal reflux disease without esophagitis; M17.12 Unilateral primary osteoarthritis, left knee; F40.240 Claustrophobia

== ENCOUNTER 2017-01-30 14:25 | Observation (INO) | payer OTHER ==
[~2017-01-30] VITALS: Ht 165.1 cm; Wt 136.2 kg
[~2017-01-30 14:25] MED LIST changes: +ATV1 PO; -CARV6.252 PO; -LOSA1TAB PO; +METO50TA17 PO; +NRN100 PO; -OXYC1TAB3 PO; +RANI150T2 PO; +TRAZ100T29 PO
[2017-01-30] MEDS ORDERED: PRAM0.129 PO ×2 (15:51)
--- NOTE | 2017-01-30 15:54 | EMERGENCY ROOM VISIT NOTE ---
History Report prepared by David: Krupa Lazo Under the Supervision of: Dr. Xu Matson M.D. First contact with patient: 15:45 Chief Complaint: CHEST PAIN Stated Complaint: CHEST PAIN Nursing Triage Summary: pt c/o chest pain started at 2230 last night. went to [facility] today for chest pain had ekg sent here for further eval. feels sob. discharged recently after admission for heart disease History of Present Illness The patient is a 62 year old female who presents to the Emergency Room with complaints of intermittent, exertional, chest pain that started around 2300 last night. She rates her pain a 7/10. This pain starts under left breast and radiates to left shoulder. It resolves with rest. Associated symptoms include light headedness, dyspnea, and swelling of the legs bilaterally. The patient had an EKG performed at [facility] today. She was sent here for further evaluation. The patient was recently admitted for an allergic reaction. She has a history of heart disease. Source of History: patient Onset: Around 2300 last night Position: chest (right) Symptom Intensity: 7/10 Timing: intermittent Modifying Factors (Worsening): exertion Modifying Factors (Relieving): rest Note: Additional associated symptoms include dyspnea, light headedness and swelling of legs bilaterally. Review of Systems See HPI for pertinent positives & negatives. A total of 10 systems reviewed and were otherwise negative. Past Medical & Surgical Medical Problems: (1) Atrial fibrillation (2) Degenerative joint disease (DJD) of lumbar spine (3) Diastolic CHF, chronic (4) Hypertension (5) Internal hemorrhoids (6) Migraine headache (7) Nonalcoholic fatty liver disease (8) Restless leg syndrome (9) Sleep apnea Surgical Problems: (1) Status post appendectomy (2) Status post section (3) Status post hysterectomy Family History FH: COPD (chronic obstructive pulmonary disease) FATHER FH: diabetes mellitus MOTHER FH: heart disease FATHER GRANDFATHER FH: hypertension MOTHER FH: lung cancer MOTHER Social History Smoking Status: Never Smoker Alcohol Use: none Marital Status: Housing Status: lives with family Occupation Status: unemployed Current/Historical Medications Scheduled Furosemide (Furosemide), 40 MG PO QAM Gabapentin (Gabapentin), 100 MG PO TID Metoprolol Tartrate (Lopressor) (Lopressor), 50 MG PO BID Potassium Chloride (Potassium Chloride ER), 20 MEQ PO QAM Pramipexole (Mirapex), 0.25 MG PO QAM Pramipexole (Mirapex), 0.125 MG PO QPM Ranitidine HCl (Ranitidine HCl), 150 MG PO BID Trazodone Hcl (Trazodone), 100 MG PO HS Scheduled PRN Albuterol Hfa (Ventolin Hfa), 2 PUFFS INH QID PRN for SOB/Wheezing Lorazepam (Lorazepam), 1 MG PO HS PRN for Sleep Ondansetron (Ondansetron HCl), 4 MG PO TID PRN for Nausea Allergies Coded Allergies: Sulindac (Verified Allergy, Intermediate, HIVES, 01/24/17) Adhesives (Verified Allergy, Unknown, "Tape" -- blisters, 01/24/17) Cyclobenzaprine (Verified Allergy, Unknown, RASH, 01/24/17) Lisinopril (Verified Allergy, Unknown, Cough, 01/24/17) Source - PT/GMG Tetanus Toxoid (Unverified Allergy, Unknown, IRRITABILITY, 01/24/17) Hydrochlorothiazide w/Triamterene (Unverified Adverse Reaction, Severe, COUGH, 01/24/17) Physical Exam Vital Signs Date Time Temp Pulse Resp B/P Pulse Ox O2 Delivery O2 Flow Rate FiO2 01/30/17 16:51 73 18 124/87 96 Room Air 01/30/17 16:22 73 01/30/17 15:58 95 Room Air 01/30/17 14:36 36.8 107 20 175/84 96 Room Air Physical Exam GENERAL: Patient is mildly anxious appearing, no distress. Patient is overweight. HEENT: No acute trauma, normocephalic atraumatic, mucous membranes moist, no nasal congestion, no scleral icterus. NECK: No stridor, no adenopathy, no meningismus, trachea is midline. LUNGS: No dyspnea. Clear to auscultation and equal bilaterally. No wheeze, no rhonchi. HEART: Regular rate and rhythm. No murmurs, rubs, gallops appreciated. ABDOMEN: Soft, nontender, bowel sounds positive, no masses appreciated, no peritonitis. BACK: No midline tenderness, no CVA tenderness EXTREMITIES: 3+ edema bilateral lower extremities. No calf tenderness. Normal motion all extremities. NEUROLOGIC: Alert and oriented, no acute motor or sensory deficits, no focal weakness, cranial nerves grossly intact. SKIN: No rash, no jaundice, no diaphoresis. Medical Decision & Procedures ER Provider Diagnostic Interpretation: X ray results are stated below per my interpretation and the radiologist's interpretation. CHEST ONE VIEW PORTABLE CLINICAL HISTORY: Chest Pain dyspnea COMPARISON STUDY: 01/24/2017 FINDINGS: Mild stable cardia megaly. Lungs are clear. Diaphragms smooth. IMPRESSION: Mild stable cardiomegaly. Otherwise negative study Electronically signed by: Joe Lamas M.D. 01/30/2017 4:09 PM Dictated Date/Time: 01/30/2017 4:[address] results are stated below per my interpretation and the radiologist's interpretation. CT ANGIOGRAM OF THE CHEST CLINICAL HISTORY: Atypical chest pain. COMPARISON STUDY: Chest CT dated 07/12/2016 and 03/12/2014. Chest x-ray dated 01/30/2017. TECHNIQUE: Following the IV administration of 91 cc of Optiray 320, CT angiogram of the chest was performed from the upper abdomen to the thoracic inlet utilizing the pulmonary embolus protocol. Images are reviewed in the axial, sagittal, and coronal planes. 3-D MIPS images are created and assessed. IV contrast was administered without complication. CT DOSE: 679.84 mGy.cm FINDINGS: Thyroid: Imaged portions of the thyroid gland are normal in size and attenuation. Thoracic aorta: There is mild atherosclerotic calcification of the thoracic aorta, which is normal in caliber and demonstrates standard 3-vessel arch anatomy. No dissection is seen. Pulmonary vasculature: The pulmonary trunk is normal in caliber. There are no filling defects identified in main, lobar, or segmental pulmonary branches to suggest pulmonary embolus. Heart: The heart is enlarged and without pericardial effusion. Lungs and pleural spaces: Evaluation of the lung parenchyma is modestly degraded by respiratory motion artifact. No airspace consolidation or pleural effusion is identified. There is minimal dependent atelectasis. Scattered calcified granulomas are observed. The trachea and central airways are clear. Mediastinum: There is no mediastinal lymphadenopathy. Megan: Clear. Axillae: There is no axillary lymphadenopathy. Upper abdomen: The liver is enlarged and steatotic. There is a tiny hiatal hernia. Partially visualized upper abdominal viscera is otherwise within normal limits. Skeletal structures: The skeletal structures are osteopenic. General changes noted in the thoracic spine and shoulders. No lytic or blastic bony lesions are seen. IMPRESSION: 1. There is no evidence of pulmonary embolus in the main, lobar, or segmental pulmonary arteries. 2. There is no airspace consolidation or pleural effusion. 3. Cardiomegaly. 4. Hepatic steatosis. 5. Additional findings as above. Electronically signed by: Sam Connolly M.D. 01/30/2017 5:34 PM Dictated Date/Time: 01/30/2017 5:31 PM Laboratory Results 01/30/17 15:58 Red Blood Count 4.73, Mean Corpuscular Volume 85.4, Mean Corpuscular Hemoglobin 27.9, Mean Corpuscular Hemoglobin Concent 32.7, Mean Platelet Volume 9.7 01/30/17 15:58 Test 01/30/17 15:58 White Blood Count 10.15 K/uL (4.8-10.8) Red Blood Count 4.73 M/uL (4.2-5.4) Hemoglobin 13.2 g/dL (12.0-16.0) Hematocrit 40.4 % (37-47) Mean Corpuscular Volume 85.4 fL (80-100) Mean Corpuscular Hemoglobin 27.9 pg (25-34) Mean Corpuscular Hemoglobin Concent 32.7 g/dl (32-36) Platelet Count 299 K/uL (130-400) Mean Platelet Volume 9.7 fL (7.4-10.4) RDW Standard Deviation 47.8 fL (36.4-46.3) RDW Coefficient of Variation 15.2 % (11.5-14.5) Neutrophils % (Manual) 65.8 % Lymphocytes % (Manual) 30.7 % Monocytes % (Manual) 2.6 % Metamyelocytes % 0.9 % Neutrophils # (Manual) 6.68 K/uL (1.4-6.5) Total Absolute Neutrophils 6.68 K/uL (1.4-6.5) Lymphocytes # (Manual) 3.12 K/uL (1.2-3.4) Total Absolute Lymphocytes 3.12 K/uL (1.2-3.4) Monocytes # (Manual) 0.26 K/uL (0.11-0.59) Metamyelocytes # 0.09 K/uL (0-0) D-Dimer 990 ug/L FEU (0-500) Anion Gap 5.0 mmol/L (3-11) Est Creatinine Clear Calc Drug Dose 85.3 ml/min Estimated GFR () 72.2 Estimated GFR (Non- 62.3 BUN/Creatinine Ratio 13.0 (10-20) Calcium Level 8.8 mg/dl (8.5-10.1) Total Creatine Kinase 49 U/L (26-192) Pro-B-Type Natriuretic Peptide 29 pg/ml (0-900) Laboratory results as reviewed by me. ECG Indication: chest pain Rate (beats per minute): 90 Rhythm: normal sinus Findings: no acute ischemic change, no ectopy Change: Compared to previous, no longer in a-fib. ED Course 154: The patient was evaluated in room C3. A complete history and physical exam was performed. 1651: The patient agrees to CT scan. 1747: Upon reevaluation, the patient is feeling well. Discussed results and treatment plan with the patient. She verbalized understanding and agreement with the treatment plan which includes speaking with [facility] team. The patient will be evaluated for further management. 1751: I discussed the patient's case with Charisse Jeong (HECTOR Tian). She will evaluate the patient for further management and care. Medical Decision Differential: Cardiac Ischemia (STEMI, NSTEMI, Unstable Angina, etc), Aortic Dissection, Arrhythmia, Pulmonary Embolism, Pneumonia, Pneumothorax, MSK, Infectious, Pericarditis/Myocarditis, Esophageal Rupture, Gastrointestinal, amongst other pathologies entertained. 62 yr old female arrives with acutely worsening left chest pain to shoulder with exertion. Resolved with rest. Associated with dyspnea. Just admitted last week for allergic reaction thus concern PE given initial tachycardia as well. With elevated Dimer she will need CT PE which was done revealing no evidence of PE. Will need to come in for cardiac work-up and evaluation. Consults Time Called: 1743 Consulting Physician: Charisse Jeong (HECTOR Tian) Returned Call: 1751 I discussed the patient's case with Charisse Jeong (HECTOR Tian). She will evaluate the patient for further management and care. Impression Primary Impression: Exertional chest pain Additional Impressions: Left sided chest pain Exertional dyspnea Scribe Attestation The scribe's documentation has been prepared under my direction and personally reviewed by me in its entirety. I confirm that the note above accurately reflects all work, treatment, procedures, and medical decision making performed by me. Departure Information Dispostion Being Evaluated By Hospitalist Referrals Abby Shipman D.O. (PCP) Patient Instructions My [facility] Problem Qualifiers
--- NOTE | 2017-01-30 16:10 | DIAGNOSTIC IMAGING REPORT ---
CHEST ONE VIEW PORTABLE CLINICAL HISTORY: Chest Pain dyspnea COMPARISON STUDY: 01/24/2017 FINDINGS: Mild stable cardia megaly. Lungs are clear. Diaphragms smooth. IMPRESSION: Mild stable cardiomegaly. Otherwise negative study Electronically signed by: Joe Lamas M.D. 01/30/2017 4:09 PM Dictated Date/Time: 01/30/2017 4:07 PM
[2017-01-30 16:15] LABS: HEMATOCRIT 40.4 % (37-47); MEAN CELL VOLUME 85.4 fL (80-100); MEAN CORPUSCULAR HEMOGLOBIN 27.9 pg (25-34); MEAN CORPUSCULAR HGB CONC 32.7 g/dl (32-36); MEAN PLATELET VOLUME 9.7 fL (7.4-10.4); PLATELET COUNT 299 K/uL (130-400); RED BLOOD COUNT 4.73 M/uL (4.2-5.4); WHITE BLOOD COUNT 10.15 K/uL (4.8-10.8)
[2017-01-30] MEDS ORDERED: OXYC-609 PO (16:20)
[2017-01-30] MEDS ORDERED: POTA-65 PO (16:20)
[2017-01-30] MEDS ORDERED: METO50TA16 PO (16:20)
[2017-01-30] MEDS ORDERED: LSX40 PO (16:20)
[2017-01-30] MEDS ORDERED: VNTHFA/IN INH (16:23)
[2017-01-30] MEDS ORDERED: ONDA4TAB9 PO (16:24)
[2017-01-30 16:33] LABS: BLOOD UREA NITROGEN 13 mg/dl (7-18); CALCIUM 8.8 mg/dl (8.5-10.1); CARBON DIOXIDE 33 mmol/L (21-32); CHLORIDE 105 mmol/L (98-107); CREATININE 0.98 mg/dl (0.60-1.20); GLUCOSE 94 mg/dl (70-99); POTASSIUM 3.6 mmol/L (3.5-5.1); SODIUM 143 mmol/L (136-145)
[2017-01-30 16:35] LABS: COMPLETE YES; LYMPH ABS # 3.12 K/uL (1.2-3.4); LYMPHOCYTE % 30.7 %; META ABS # 0.09 K/uL (0-0); METAMYELOCYTE % 0.9 %; NEUTROPHILS % 65.8 %
[2017-01-30] MEDS ORDERED: OPTIRAY 320 IV PRN (16:45)
--- NOTE | 2017-01-30 17:36 | DIAGNOSTIC IMAGING REPORT ---
CT ANGIOGRAM OF THE CHEST CLINICAL HISTORY: Atypical chest pain. COMPARISON STUDY: Chest CT dated 07/12/2016 and 03/12/2014. Chest x-ray dated 01/30/2017. TECHNIQUE: Following the IV administration of 91 cc of Optiray 320, CT angiogram of the chest was performed from the upper abdomen to the thoracic inlet utilizing the pulmonary embolus protocol. Images are reviewed in the axial, sagittal, and coronal planes. 3-D MIPS images are created and assessed. IV contrast was administered without complication. CT DOSE: 679.84 mGy.cm FINDINGS: Thyroid: Imaged portions of the thyroid gland are normal in size and attenuation. Thoracic aorta: There is mild atherosclerotic calcification of the thoracic aorta, which is normal in caliber and demonstrates standard 3-vessel arch anatomy. No dissection is seen. Pulmonary vasculature: The pulmonary trunk is normal in caliber. There are no filling defects identified in main, lobar, or segmental pulmonary branches to suggest pulmonary embolus. Heart: The heart is enlarged and without pericardial effusion. Lungs and pleural spaces: Evaluation of the lung parenchyma is modestly degraded by respiratory motion artifact. No airspace consolidation or pleural effusion is identified. There is minimal dependent atelectasis. Scattered calcified granulomas are observed. The trachea and central airways are clear. Mediastinum: There is no mediastinal lymphadenopathy. Megan: Clear. Axillae: There is no axillary lymphadenopathy. Upper abdomen: The liver is enlarged and steatotic. There is a tiny hiatal hernia. Partially visualized upper abdominal viscera is otherwise within normal limits. Skeletal structures: The skeletal structures are osteopenic. General changes noted in the thoracic spine and shoulders. No lytic or blastic bony lesions are seen. IMPRESSION: 1. There is no evidence of pulmonary embolus in the main, lobar, or segmental pulmonary arteries. 2. There is no airspace consolidation or pleural effusion. 3. Cardiomegaly. 4. Hepatic steatosis. 5. Additional findings as above. Electronically signed by: Sam Connolly M.D. 01/30/2017 5:34 PM Dictated Date/Time: 01/30/2017 5:31 PM
[2017-01-30] MEDS ORDERED: ONDANSETRON INJ 2 MG/ML 2 ML VIAL IV PRN (18:30)
[2017-01-30] MEDS ORDERED: NITROGLYCERIN 0.4 MG SL PER TAB CHARGE SL PRN (18:30)
[2017-01-30] MEDS ORDERED: ACETAMINOPHEN 325 MG TAB PO PRN (18:30)
[2017-01-30] MEDS ORDERED: FUROSEMIDE 40 MG TAB PO ONE (19:00)
--- NOTE | 2017-01-30 19:29 | History and Physical ---
History & Physical Date & Time of Service: Jan 30, 2017 at 19:08 Chief Complaint: Chest Pain Primary Care Physician: Abby Shipman D.O. History of Present Illness 62 year old female who presents to the ER with chest pain. Patient was recently admitted to [facility] 01/24 - 01/25 for new onset atrial fibrillation which was felt to be due to possible allergic reaction from Sulindac. Patient converted to NSR x 2 spontaneously and required one dose of IV metoprolol. Her Coreg was changed to metoprolol and Losartan was discontinued. She also received increased Lasix dose while hospitalized due to increased lower extremity edema however was discharged on her routine dose. She was not placed on anticoagulation due to history of severe rectal bleeding with use of antiplatelets. Patient reports last night she was awoken out of sleep from left sided chest pain. She describes the pain as ache with occasional radiation into the left shoulder. She reports the pain came and went throughout the entire night and day today. She reports the pain at its worse #8/10. No specific causative or alleviating factors for the pain. She reports she felt some episodes of palpitations. She had some associated shortness of breath and diaphoresis. She denies lightheadedness and nausea. She also notes increasing leg edema for the past couple of days. She denies abdominal pain, vomiting, and diarrhea. No fever or chills. She denies urinary symptoms. In the ER, patient is in NSR. EKG does not show any acute ST changes. Initial troponin is negative. She is currently chest pain free. Past Medical/Surgical History Medical Problems: (1) Atrial fibrillation Status: Chronic (2) Degenerative joint disease (DJD) of lumbar spine Status: Chronic (3) Diastolic CHF, chronic Status: Chronic (4) Hypertension Status: Chronic (5) Internal hemorrhoids Status: Chronic (6) Migraine headache Status: Chronic (7) Nonalcoholic fatty liver disease Status: Chronic (8) Restless leg syndrome Status: Chronic (9) Sleep apnea Status: Chronic Surgical Problems: (1) Status post appendectomy Status: Chronic (2) Status post section Status: Chronic (3) Status post hysterectomy Status: Chronic Family History FH: COPD (chronic obstructive pulmonary disease) FATHER FH: diabetes mellitus MOTHER FH: heart disease FATHER ([place] in his 40s) GRANDFATHER FH: hypertension MOTHER FH: lung cancer MOTHER Social History Smoking Status: Former Smoker Alcohol Use: occasionally Immunizations History of Tetanus Vaccine?: Yes Tetanus Immunization Date: Aug 11, 2008 Multi-Drug Resistant Organisms History of MDRO: No Allergies Coded Allergies: Sulindac (Verified Allergy, Intermediate, HIVES, 01/24/17) Adhesives (Verified Allergy, Unknown, "Tape" -- blisters, 01/24/17) Cyclobenzaprine (Verified Allergy, Unknown, RASH, 01/24/17) Lisinopril (Verified Allergy, Unknown, Cough, 01/24/17) Source - PT/GMG Tetanus Toxoid (Unverified Allergy, Unknown, IRRITABILITY, 01/24/17) Hydrochlorothiazide w/Triamterene (Unverified Adverse Reaction, Severe, COUGH, 01/24/17) Home Medications Scheduled Furosemide (Furosemide), 40 MG PO QAM Gabapentin (Gabapentin), 100 MG PO TID Metoprolol Tartrate (Lopressor) (Lopressor), 50 MG PO BID Potassium Chloride (Potassium Chloride ER), 20 MEQ PO QAM Pramipexole (Mirapex), 0.25 MG PO QAM Pramipexole (Mirapex), 0.125 MG PO QPM Ranitidine HCl (Ranitidine HCl), 150 MG PO BID Trazodone Hcl (Trazodone), 100 MG PO HS Scheduled PRN Albuterol Hfa (Ventolin Hfa), 2 PUFFS INH QID PRN for SOB/Wheezing Lorazepam (Lorazepam), 1 MG PO HS PRN for Sleep Ondansetron (Ondansetron HCl), 4 MG PO TID PRN for Nausea Review of Systems 10 point review of systems was completed with the pertinent positives and negatives noted per the HPI Physical Exam Vital Signs Date Time Temp Pulse Resp B/P Pulse Ox O2 Delivery O2 Flow Rate FiO2 01/30/17 18:50 80 20 122/67 95 Room Air 01/30/17 16:51 73 18 124/87 96 Room Air 01/30/17 16:22 73 01/30/17 15:58 95 Room Air 01/30/17 14:36 36.8 107 20 175/84 96 Room Air General Appearance: no apparent distress Head: normocephalic Eyes: normal inspection ENT: hearing grossly normal Neck: supple, no JVD Respiratory/Chest: lungs clear, normal breath sounds, no respiratory distress Cardiovascular: regular rate, rhythm, + pertinent finding (+2 edema BLLE) Abdomen/GI: normal bowel sounds, non tender, soft Extremities/Musculoskelatal: normal inspection, no calf tenderness Neurologic/Psych: no motor/sensory deficits, alert, normal mood/affect, oriented x 3 Skin: normal color, warm/dry Diagnostics Laboratory Results Results Past 24 Hours Test 01/30/17 15:58 Range/Units White Blood Count 10.15 4.8-10.8 K/uL Red Blood Count 4.73 4.2-5.4 M/uL Hemoglobin 13.2 12.0-16.0 g/dL Hematocrit 40.4 37-47 % Mean Corpuscular Volume 85.4 80-100 fL Mean Corpuscular Hemoglobin 27.9 25-34 pg Mean Corpuscular Hemoglobin Concent 32.7 32-36 g/dl Platelet Count 299 130-400 K/uL Mean Platelet Volume 9.7 7.4-10.4 fL RDW Standard Deviation 47.8 36.4-46.3 fL RDW Coefficient of Variation 15.2 11.5-14.5 % Neutrophils % (Manual) 65.8 % Lymphocytes % (Manual) 30.7 % Monocytes % (Manual) 2.6 % Metamyelocytes % 0.9 % Neutrophils # (Manual) 6.68 1.4-6.5 K/uL Total Absolute Neutrophils 6.68 1.4-6.5 K/uL Lymphocytes # (Manual) 3.12 1.2-3.4 K/uL Total Absolute Lymphocytes 3.12 1.2-3.4 K/uL Monocytes # (Manual) 0.26 0.11-0.59 K/uL Metamyelocytes # 0.09 0-0 K/uL D-Dimer 990 0-500 ug/L FEU Sodium Level 143 136-145 mmol/L Potassium Level 3.6 3.5-5.1 mmol/L Chloride Level 105 98-107 mmol/L Carbon Dioxide Level 33 21-32 mmol/L Anion Gap 5.0 3-11 mmol/L Blood Urea Nitrogen 13 7-18 mg/dl Creatinine 0.98 0.60-1.20 mg/dl Est Creatinine Clear Calc Drug Dose 85.3 ml/min Estimated GFR () 72.2 Estimated GFR (Non- 62.3 BUN/Creatinine Ratio 13.0 10-20 Random Glucose 94 70-99 mg/dl Calcium Level 8.8 8.5-10.1 mg/dl Total Creatine Kinase 49 26-192 U/L Creatine Kinase MB < 0.5 0.5-3.6 ng/ml Creatine Kinase MB Ratio 0-3.0 Troponin I < 0.015 0-0.045 ng/ml Pro-B-Type Natriuretic Peptide 29 0-900 pg/ml Diagnostic Radiology CXR IMPRESSION: Mild stable cardiomegaly. Otherwise negative study CTA CHEST IMPRESSION: 1. There is no evidence of pulmonary embolus in the main, lobar, or segmental pulmonary arteries. 2. There is no airspace consolidation or pleural effusion. 3. Cardiomegaly. 4. Hepatic steatosis. 5. Additional findings as above. Impression Assessment and Plan CHEST PAIN - admit to tele - recent admission for paroxysmal afib after initiation of Sulindac - converted to NSR during hospitalization; Coreg changed to metoprolol and not placed on anticoagulation due to history of rectal bleeding - was to complete 14 day monitor as an outpatient however adhesive caused skin irritation and patient did not tolerate; was also scheduled for Lexiscan - presenting today with waxing and waning chest pain; initial troponin negative and EKG demonstrates NSR - D. Dimer elevated; CTA chest negative; will obtain BLLE dopplers to complete work up - continue to cycle cardiac enzymes, if negative, will get Lexiscan stress in AM - case discussed with Dr. Olivera - no ASA due to intolerance in the past with rectal bleeding, continue beta mitchell, check lipids in AM PAROXYSMAL AFIB - currently in NSR - not anticoagulated due to history of rectal bleeding - rate controlled on beta mitchell, will continue DIASTOLIC CHF - has increased leg edema - echo 01/25 - EF 55-60%, grade II diastolic dysfunction - during last admission, patient's Lasix was increased from 40mg daily to 40mg BID for increased leg edema however was discharged on routine dose - will give additional 40mg PO tonight, reassess volume status in AM, consider increasing home dose HTN - BP controlled - continue metoprolol DVT PROPHYLAXIS - SCDs due to history of rectal bleeding DISPO - The patient will be placed as observation status for now until further work up is complete. ATTENDING ADDENDUM care coordinated with CNRP Charisse Jeong please refer to her notes for full details, I agree with her notes patient seen and examined, records reviewed by myself as well patient is a 62 year old female with history of paroxysmal a fib not on anticoagulation due to rectal bleeding presenting with intermittent chest pain since this morning on exam, patient tearful saying she is having severe chest discomfort, pointing to epigastric region, mostly dull, but sharp when severe, non radiating, no nausea, dyspnea, palpitations, dizziness no other symptoms STAT Nitro and EKG ordered VS noted and reviewed oriented x 3, not in distress but emotional, speaks in sentences with no effort nor accessory muscle use normal rate, regular rhythm, no murmurs clear breath sounds bilaterally non distended, soft, nontender grade 1 bilateral lower leg edema, NO erythema, warmth, tenderness no neuro deficits crea 0.9 troponin negative EKG: no signs of acute ischemia or infarct ASSESSMENT/PLAN> CHEST PAIN, R/O ACS serial cardiac markers continue Metoprolol for stress test in AM per cardiology - protonix IV daily, PRN Maalox for possible GERD/PUD CHF DIASTOLIC TYPE (+) lower leg edema additional Lasix 40mg PO ordered today monitor PAROXYSMAL A FIB sinus rhythm presently not on anticoagulation due to rectal bleeding continue Metoprolol PO other diagnoses and plan of care as per SUZANNA Jeong's notes Victoriano Garrido MD VTE Prophylaxis VTE Risk Assessment Done? Y/N: Yes Risk Level: Moderate
[2017-01-30] MEDS ORDERED: ALUMINUM/MAGNESIUM SUSP 30 ML UDC PO PRN (20:45)
[2017-01-30] MEDS ORDERED: PRAMIPEXOLE DIHYDROCHLORIDE 0.25MG TAB PO SCH (21:00)
[2017-01-30] MEDS ORDERED: IV FLUIDS COMPLETED PRN (21:15)
[2017-01-30] MEDS ORDERED: PANTOprazole INJ 40 MG in SYRINGE 0 ML IV ONE (21:30)
--- NOTE | 2017-01-30 21:37 | DIAGNOSTIC IMAGING REPORT ---
ULTRASOUND BILATERAL LOWER EXTREMITY VENOUS CLINICAL HISTORY: Lower extremity edema. COMPARISON STUDY: Bilateral lower extremity venous ultrasound dated 07/12/2016. TECHNIQUE: Real-time, grayscale, and color Doppler sonography of the deep veins of the right and left lower extremity was performed from the inguinal crease to the calf. Compression and augmentation were utilized. FINDINGS: There is no sonographic evidence of deep venous thrombosis identified in the right or left lower extremity. The common femoral, superficial femoral, and popliteal veins are patent and normally compressible bilaterally. The greater saphenous vein and the profunda femoris vein at the junction with the common femoral vein are clear in both legs. The visualized calf veins are patent bilaterally. IMPRESSION: There is no sonographic evidence of deep venous thrombosis identified in the right or left lower extremity. Electronically signed by: Sam Connolly M.D. 01/30/2017 9:36 PM Dictated Date/Time: 01/30/2017 9:36 PM
[2017-01-30] MEDS: GABAPENTIN 100 MG CAP PO SCH (21:49)
[2017-01-30] MEDS: RANITIDINE HCL 150 MG TAB PO SCH (21:49)
[2017-01-30] MEDS: METOPROLOL TARTRATE 50 MG TAB PO SCH (21:50)
[2017-01-30] MEDS: TRAZODONE HCL 100 MG TAB PO SCH (21:51)
[2017-01-30 22:26] VITALS: O2SAT 95
[2017-01-30 23:40] VITALS: BP 123/83; PULSE 87; TEMP 36.6; Ht 165.1 cm; Wt 136.2 kg
[2017-01-31] VITALS (7 sets, daily range): BP systolic 113–134; BP diastolic 62–77; PULSE 78–95; TEMP 36.4–37.1; O2SAT 91–96
[2017-01-31] MEDS ORDERED: PRAMIPEXOLE DIHYDROCHLORIDE 0.25MG TAB PO ONE (00:37)
[2017-01-31] MEDS: LORAZEPAM 0.5 MG TAB PO PRN ×2 (01:00→20:56)
[2017-01-31 04:00] LABS: HEMATOCRIT 38.1 % (37-47); MEAN CELL VOLUME 86.8 fL (80-100); MEAN CORPUSCULAR HGB CONC 32.3 g/dl (32-36); MEAN PLATELET VOLUME 9.7 fL (7.4-10.4); PLATELET COUNT 254 K/uL (130-400); RED BLOOD COUNT 4.39 M/uL (4.2-5.4); WHITE BLOOD COUNT 8.08 K/uL (4.8-10.8)
[2017-01-31 04:20] LABS: BLOOD UREA NITROGEN 14 mg/dl (7-18); BUN/CREATININE RATIO 14.1 (10-20); CALCIUM 8.4 mg/dl (8.5-10.1); CARBON DIOXIDE 33 mmol/L (21-32); CHLORIDE 105 mmol/L (98-107); GLUCOSE 93 mg/dl (70-99); POTASSIUM 3.8 mmol/L (3.5-5.1); SODIUM 143 mmol/L (136-145)
[2017-01-31 04:25] LABS: CHOLESTEROL 168 mg/dl (0-200); CHOLESTEROL/HDL RATIO 2.8; HDL CHOLESTEROL 60 mg/dl; LDL CHOLESTEROL CALCULATED 90 mg/dl; TRIGLYCERIDES 90 mg/dl (0-150); VERY LOW DENSITY LIPOPROT CALC 18 mg/dl
--- NOTE | 2017-01-31 08:04 | Cardiology Consultation ---
Cardiology Consultation Date of Consultation: Jan 31, 2017 History of Present Illness Kristen Garcia is a 62 year old female seen in cardiology consultation per the request of Charisse Jeong PA-C for the evaluation of chest discomfort. The patient has a history of chronic diastolic heart failure for which she is on furosemide 40 mg daily. She was seen last week in inpatient cardiology consultation by Mr Carlton and myself for evaluation of newly diagnosed PAF that occurred in the setting of a suspected allergic reaction to sulindac that she had been prescribed for knee pain. She has a history of chronic pain including the knee pain an fibromyalgia. During her hospital stay last week she complained of vague chest and arm pain that was associated with the AF episodes. Her troponin levels were negative then , EKGs had revealed no ischemic changes, and resting echo revealed no acute wall motion abnormalities. She was discharged with plans for an outpatient nuclear stress test. Two days ago she had an episode of chest discomfort that work her up from sleep. She noted a pressure sensation as well as discomfort down her left arm. Yesterday she had taken her daughter for outpatient orthopedic surgery at [facility]. While she was waiting, she had recurrence of the symptoms. She had spoken to a nurse at her primary care provider's office and the patient was subsequently seen in cardiology clinic by Dr. Bernal of our practice yesterday. Her EKG at that time was stable. Given her risk factors emergency department evaluation was recommended. The patient did not act on this recommendation immediately, but after she took her daughter home from the surgery, she went home and felt recurrent symptoms and ultimately presented in the late afternoon yesterday. She had an episode of chest discomfort last night and again this morning. When I was interviewing her today , she seemed to have somewhat of a flat affect. She had a recurrence of her symptoms while I was speaking to her and she described it as a "fluttering" sensation at the mid chest under the margin of the ribs. Some characteristics of her symptoms mimic what she felt last week and some are different. Review of EKG tracings in the chart this far reveals sinus rhythm with no significant ST changes. Review of her telemetry reveals sinus rhythm with occasional premature ventricular contractions including isolated PVCs, this morning at 714 am she had an episode of SR with ventricular bigeminy. History Past Medical and Surgical History: Diastolic congestive heart failure Severe obstructive sleep apnea-hypopnea syndrome, CPAP therapy Hypertension Internal hemorrhoids Non alcoholic fatty liver disease Migraine headaches Degenerative joint disease Fibromyalgia Anxiety Depression Appendectomy Total hysterectomy Hand surgery Tonsillectomy Hemorrhoidectomy, internal with banding. Social History: Reformed smoker. She quit 13 years ago after smoking 1/2 pack per day times 40 years. Alcohol: Rare use. Illegal drug use: Marijuana once in a while, last approximately 6 months ago. x 43 years. 3 children, without cardiac issues. Family History: Father suffered his 1st WI at the age of 53, passing at the age of 73 with another WI. Mother with lung cancer. 1 brother with CAD. 5 sisters without cardiac history. Review Of Systems See above for pertinent positives & negatives. A total of 10 systems reviewed and were otherwise negative. Allergies Coded Allergies: Sulindac (Verified Allergy, Intermediate, HIVES, 01/24/17) Adhesives (Verified Allergy, Unknown, "Tape" -- blisters, 01/24/17) Cyclobenzaprine (Verified Allergy, Unknown, RASH, 01/24/17) Lisinopril (Verified Allergy, Unknown, Cough, 01/24/17) Source - PT/GMG Tetanus Toxoid (Unverified Allergy, Unknown, IRRITABILITY, 01/24/17) Hydrochlorothiazide w/Triamterene (Unverified Adverse Reaction, Severe, COUGH, 01/24/17) Medications Reported Home Medications Medications Dose Route/Sig Max Daily Dose Days Date Category Ondansetron HCl (Ondansetron) 4 Mg Tab 4 Mg PO TID PRN 01/30/17 Reported Ventolin Hfa (Albuterol) 200 Puffs/33262 Mcg Aers 2 Puffs INH QID PRN 01/30/17 Reported Furosemide 40 Mg Tab 40 Mg PO QAM 01/30/17 Reported Potassium Chloride ER (Potassium Chloride) 20 Meq Tab 20 Meq PO QAM 01/30/17 Reported Lopressor (Metoprolol Tartrate) 50 Mg Tab 50 Mg PO BID 01/30/17 Reported Gabapentin 100 Mg Cap 100 Mg PO TID 01/24/17 Reported Ranitidine HCl 150 Mg Tab 150 Mg PO BID 01/24/17 Reported Lorazepam 1 Mg Tab 1 Mg PO HS PRN 01/24/17 Reported Mirapex (Pramipexole Dihydrochloride) 0.125 Mg Tab 0.125 Mg PO QPM 09/04/16 Reported Mirapex (Pramipexole Dihydrochloride) 0.125 Mg Tab 0.25 Mg PO QAM 09/04/16 Reported Trazodone (Trazodone HCl) 100 Mg Tab 100 Mg PO HS 07/12/16 Reported Physical Exam Vital Signs (Last 8hrs): Last 8 Hrs Date Time Temp Pulse Resp B/P Pulse Ox O2 Delivery O2 Flow Rate FiO2 01/31/17 07:15 36.6 88 18 113/66 93 BiPAP 01/31/17 04:53 36.5 79 16 118/72 94 01/31/17 04:00 Room Air General Appearance: Alert and Oriented x3. NAD. Head: Normocephalic Atraumatic. Eyes: PERRLA, EOMI, conjunctiva and sclera clear Neck: Supple. No carotid bruits noted. No JVD. No HJD. Respiratory: Breath sounds clear to auscultation bilaterally. No w/r/r. Cardiovascular: Reg rate and rhythm. S1 and S2 noted. No murmurs, rubs, gallops. PMI non displace. Abdomen: Normal bowel sounds, soft nontender. no abdominal bruits. Extremities: No edema, no clubbing or cyanosis. distal pulses 2/4 bilaterally. Neuro: No focal deficits. Psychiatric: Normal affect. Data Last 24 Hours Test 01/30/17 15:58 01/30/17 21:00 01/30/17 21:42 01/31/17 03:00 White Blood Count 10.15 K/uL Red Blood Count 4.73 M/uL Hemoglobin 13.2 g/dL Hematocrit 40.4 % Mean Corpuscular Volume 85.4 fL Mean Corpuscular Hemoglobin 27.9 pg Mean Corpuscular Hemoglobin Concent 32.7 g/dl Platelet Count 299 K/uL Mean Platelet Volume 9.7 fL RDW Standard Deviation 47.8 fL RDW Coefficient of Variation 15.2 % Neutrophils % (Manual) 65.8 % Lymphocytes % (Manual) 30.7 % Monocytes % (Manual) 2.6 % Metamyelocytes % 0.9 % Neutrophils # (Manual) 6.68 K/uL Total Absolute Neutrophils 6.68 K/uL Lymphocytes # (Manual) 3.12 K/uL Total Absolute Lymphocytes 3.12 K/uL Monocytes # (Manual) 0.26 K/uL Metamyelocytes # 0.09 K/uL D-Dimer 990 ug/L FEU Sodium Level 143 mmol/L Potassium Level 3.6 mmol/L Chloride Level 105 mmol/L Carbon Dioxide Level 33 mmol/L Anion Gap 5.0 mmol/L Blood Urea Nitrogen 13 mg/dl Creatinine 0.98 mg/dl Est Creatinine Clear Calc Drug Dose 85.3 ml/min Estimated GFR () 72.2 Estimated GFR (Non- 62.3 BUN/Creatinine Ratio 13.0 Random Glucose 94 mg/dl Calcium Level 8.8 mg/dl Total Creatine Kinase 49 U/L Creatine Kinase MB < 0.5 ng/ml < 0.5 ng/ml Creatine Kinase MB Ratio Troponin I < 0.015 ng/ml < 0.015 ng/ml Pro-B-Type Natriuretic Peptide 29 pg/ml Test 01/31/17 03:39 White Blood Count 8.08 K/uL Red Blood Count 4.39 M/uL Hemoglobin 12.3 g/dL Hematocrit 38.1 % Mean Corpuscular Volume 86.8 fL Mean Corpuscular Hemoglobin 28.0 pg Mean Corpuscular Hemoglobin Concent 32.3 g/dl RDW Standard Deviation 49.6 fL RDW Coefficient of Variation 15.4 % Platelet Count 254 K/uL Mean Platelet Volume 9.7 fL Sodium Level 143 mmol/L Potassium Level 3.8 mmol/L Chloride Level 105 mmol/L Carbon Dioxide Level 33 mmol/L Anion Gap 5.0 mmol/L Blood Urea Nitrogen 14 mg/dl Creatinine 1.00 mg/dl Est Creatinine Clear Calc Drug Dose 83.6 ml/min Estimated GFR () 70.4 Estimated GFR (Non- 60.8 BUN/Creatinine Ratio 14.1 Random Glucose 93 mg/dl Calcium Level 8.4 mg/dl Creatine Kinase MB < 0.5 ng/ml Troponin I < 0.015 ng/ml Triglycerides Level 90 mg/dl Cholesterol Level 168 mg/dl HDL Cholesterol 60 mg/dl LDL Cholesterol, Calculated 90 mg/dl VLDL Cholesterol, Calculated 18 mg/dl Cholesterol/HDL Ratio 2.8 Imaging: EKG: Telemetry reviewed: Assessment & Plan Venous duplex negative for DVT. CTA: negative for PE. TTecho performed 01/25/17: -- Conclusions -- Sinus rhythm was noted during the echocardiogram evaluation. There is normal left ventricular wall thickness. The left ventricular wall motion is normal. The LV Ejection Fraction = 55-60%. Diastolic dysfunction, Grade II (pseudonormalization pattern). Doppler findings do not suggest pulmonary hypertension. There is trace to small loculated pericardial effusion anteriorly and adjacent to the right ventricular free wall. There are no echocardiographic indications of cardiac tamponade. Impression: 62-year-old female 1. Chest discomfort, somewhat atypical for angina, with recent complaint of a "fluttering" while I examined her that I speculate is due to sensed ventricular ectopy. 2. PAF Recommendations: 1. Increase metoprolol to 75 mg BID. 2. Plan for pharm nuclear stress tomorrow. 3. Not on aspirin or pharm DVT prophylaxis due to h/o rectal bleeding
[2017-01-31] MEDS: GABAPENTIN 100 MG CAP PO SCH ×3 (08:23→20:58)
[2017-01-31] MEDS: POTASSIUM CHLORIDE 20 MEQ TABCR PO SCH (08:24)
[2017-01-31] MEDS: METOPROLOL TARTRATE 50 MG TAB PO SCH (08:25)
[2017-01-31] MEDS: FUROSEMIDE 40 MG TAB PO SCH (08:25)
[2017-01-31] MEDS: RANITIDINE HCL 150 MG TAB PO SCH ×2 (08:25→20:59)
[2017-01-31] MEDS ORDERED: PRAMIPEXOLE DIHYDROCHLORIDE 0.25MG TAB PO SCH ×3 (09:00→23:00)
[2017-01-31] MEDS ORDERED: METOPROLOL TARTRATE 25 MG TAB PO ONE (10:30)
[2017-01-31] MEDS ORDERED: NITROGLYCERIN 0.4 MG SL PER TAB CHARGE SL ONE (11:15)
[2017-01-31] MEDS ORDERED: REGADENOSON 0.4 MG/5 ML SYR ONE (11:58)
[2017-01-31] MEDS: PANTOprazole INJ 40 MG in SYRINGE 0 ML IV SCH (12:32)
--- NOTE | 2017-01-31 18:14 | Progress Note ---
Internal Med Progress Note Date of Service: Jan 31, 2017. Provider Documentation: SUBJECTIVE: says still has some chest pain no sob mild nausea mo sweating no dizziness no cough OBJECTIVE: Vital Signs-as noted below Exam: General-alert and oriented x 3 Not in distress ENT-normal hearing Neck-no neck masses Lungs-cta b/l no wheezing no crackles Heart-s1 and s2 heard regular rate and rhythm no murmurs' Abdomen-soft bowel sounds present non tender no distension Extremities-no edema no erythema Neuro-alert and awake moves extremities Lab data as noted below. ASSESSMENT & PLAN: CHEST PAIN Elevated dimer but CTA chest and venous Doppler negative serial ce and ekg unremarkable plan for Lexiscan nuclear stress in am PAROXYSMAL AFIB Currently in NSR Not anticoagulated due to history of rectal bleeding On beta mitcehll will monitor. DIASTOLIC CHF Increased leg edema echo 01/25 - EF 55-60%, grade II diastolic dysfunction -on lasix 40mg daily will assess for increasing dose HTN on metoprolol will monitor DVT PROPHYLAXIS SCDs due to history of rectal bleeding DISPO To be determined Vital Signs: Date Time Temp Pulse Resp B/P Pulse Ox O2 Delivery O2 Flow Rate FiO2 01/31/17 16:00 Room Air 01/31/17 15:23 36.4 88 18 134/77 94 Room Air 01/31/17 12:00 Room Air 01/31/17 11:56 36.4 78 18 130/71 96 Room Air 01/31/17 08:42 80 129/77 95 Room Air 01/31/17 08:32 Room Air 01/31/17 08:30 83 14 122/62 94 Room Air 01/31/17 07:15 36.6 88 18 113/66 93 BiPAP 01/31/17 04:53 36.5 79 16 118/72 94 01/31/17 04:00 Room Air 01/30/17 23:40 36.6 87 18 123/83 Room Air 01/30/17 22:26 91 20 107/72 95 Room Air 01/30/17 21:39 89 01/30/17 20:44 93 20 142/61 95 Room Air 01/30/17 18:50 80 20 122/67 95 Room Air Lab Results: Results Past 24 Hours Test 01/30/17 21:00 01/30/17 21:42 01/31/17 03:00 01/31/17 03:39 Range/Units Creatine Kinase MB Ratio 0-3.0 Creatine Kinase MB < 0.5 < 0.5 0.5-3.6 ng/ml Troponin I < 0.015 < 0.015 0-0.045 ng/ml White Blood Count 8.08 4.8-10.8 K/uL Red Blood Count 4.39 4.2-5.4 M/uL Hemoglobin 12.3 12.0-16.0 g/dL Hematocrit 38.1 37-47 % Mean Corpuscular Volume 86.8 80-100 fL Mean Corpuscular Hemoglobin 28.0 25-34 pg Mean Corpuscular Hemoglobin Concent 32.3 32-36 g/dl RDW Standard Deviation 49.6 36.4-46.3 fL RDW Coefficient of Variation 15.4 11.5-14.5 % Platelet Count 254 130-400 K/uL Mean Platelet Volume 9.7 7.4-10.4 fL Sodium Level 143 136-145 mmol/L Potassium Level 3.8 3.5-5.1 mmol/L Chloride Level 105 98-107 mmol/L Carbon Dioxide Level 33 21-32 mmol/L Anion Gap 5.0 3-11 mmol/L Blood Urea Nitrogen 14 7-18 mg/dl Creatinine 1.00 0.60-1.20 mg/dl Est Creatinine Clear Calc Drug Dose 83.6 ml/min Estimated GFR () 70.4 Estimated GFR (Non- 60.8 BUN/Creatinine Ratio 14.1 10-20 Random Glucose 93 70-99 mg/dl Calcium Level 8.4 8.5-10.1 mg/dl Magnesium Level 2.0 1.8-2.4 mg/dl Triglycerides Level 90 0-150 mg/dl Cholesterol Level 168 0-200 mg/dl HDL Cholesterol 60 mg/dl LDL Cholesterol, Calculated 90 mg/dl VLDL Cholesterol, Calculated 18 mg/dl Cholesterol/HDL Ratio 2.8
[2017-01-31] MEDS: METOPROLOL TARTRATE 25 MG TAB PO SCH (20:58)
[2017-01-31] MEDS: TRAZODONE HCL 100 MG TAB PO SCH (22:39)
[2017-02-01 00:04] VITALS: BP 138/75; PULSE 55; TEMP 37; O2SAT 96
[2017-02-01] MEDS ORDERED: PRAMIPEXOLE DIHYDROCHLORIDE 0.25MG TAB PO ONE (01:00)
[2017-02-01 04:00] VITALS: BP 122/72; PULSE 73; TEMP 36.5; O2SAT 92
[2017-02-01 07:24] VITALS: BP 127/63; PULSE 82; TEMP 36.5; O2SAT 92
[2017-02-01] MEDS: RANITIDINE HCL 150 MG TAB PO SCH (11:04)
[2017-02-01] MEDS: FUROSEMIDE 40 MG TAB PO SCH (11:04)
[2017-02-01] MEDS: GABAPENTIN 100 MG CAP PO SCH ×2 (11:05→14:36)
[2017-02-01] MEDS: METOPROLOL TARTRATE 25 MG TAB PO SCH (11:06)
[2017-02-01] MEDS: POTASSIUM CHLORIDE 20 MEQ TABCR PO SCH (11:06)
[2017-02-01] MEDS: PANTOprazole INJ 40 MG in SYRINGE 0 ML IV SCH (11:07)
[2017-02-01 11:15] VITALS: BP 117/52; PULSE 83; TEMP 36.8; O2SAT 93
--- NOTE | 2017-02-01 12:45 | MYOCARDIAL PERFUSION SCAN ---
LEXISCAN CARDIOLITE STRESS TEST REPORT ORDERING PROVIDER: Leonides Olivera DO INDICATION: Recent chest discomfort, palpitations. HEMODYNAMIC DATA: The patient underwent pharmacologic stress testing. The resting heart rate of 89 beats per minute santiago to a maximum heart rate of 95 beats per minute, this value represents 59% of the maximal age predicted heart rate. The maximum blood pressure was 144/73. The pharmacologic stress test was terminated at the end of the protocol. The patient described mild chest heaviness with administration of Lexiscan which resolved early in the post-pharmacologic stress recovery interval. ELECTROCARDIOGRAM RESULTS: The baseline EKG revealed sinus rhythm at 83 beats per minute. Normal ST segments were noted on the resting EKG. The stress EKG response was normal to pharmacologic stress. Occasional isolated PVCs were noted during the study. RAW IMAGES: Study induction of adequate technical quality. Review of the raw data in rotational cine format reveals a fixed breast shadow on the rest and stress images. STRESS IMAGES: The stress SPECT images reveal a small apical perfusion defect of mild intensity with normal perfusion to the remaining myocardial segments. The rest SPECT images reveal persistent fixed apical perfusion defect with normal perfusion to the remaining myocardial segments. Left ventricle: The left ventricular chamber size was relatively small. Gated SPECT imaging reveals normal myocardial thickening and wall motion. The left ventricular ejection fraction was normal to hyperdynamic with a calculated LVEF of greater than 70%. OCCLUSION: Lexiscan nuclear cardiac stress test is negative for inducible ischemia. The fixed apical perfusion defect is consistent with attenuation artifact with normal perfusion otherwise. The ejection fraction was normal. EKG response to pharmacologic stress was normal. [facility]
--- NOTE | 2017-02-01 14:13 | Cardiology Follow-Up ---
Subjective General Date of Service: Feb 01, 2017. Chief Complaint: follow up chest pain Pt evaluation today including: conversation w/ patient, physical exam History of Present Illness The patient is a 62 year old female seen in follow up. Patient feels well. Denies CP or palpitations. Her restless leg syndrome has been acting up. Allergies Coded Allergies: Sulindac (Verified Allergy, Intermediate, HIVES, 01/24/17) Adhesives (Verified Allergy, Unknown, "Tape" -- blisters, 01/24/17) Cyclobenzaprine (Verified Allergy, Unknown, RASH, 01/24/17) Lisinopril (Verified Allergy, Unknown, Cough, 01/24/17) Source - PT/GMG Tetanus Toxoid (Unverified Allergy, Unknown, IRRITABILITY, 01/24/17) Hydrochlorothiazide w/Triamterene (Unverified Adverse Reaction, Severe, COUGH, 01/24/17) Social History Smoking Status: Former Smoker Hx Tobacco Use In Past Year?: No Hx Alcohol Use - Type And Amou: No Hx Substance Use - Type And Am: Yes (marijuana 1-2x month) Problem List Medical Problems: (1) Allergic reaction Status: Acute (2) Bilateral leg pain Status: Acute (3) Congestive heart disease Status: Acute (4) History of CHF (congestive heart failure) Status: Acute (5) New onset a-fib Status: Acute (6) Osteoarthritis of knees, bilateral Status: Acute (7) Tachycardia Status: Acute Physical Exam Vital Signs Last Vital Signs Documentation Date Time Temp Pulse Resp B/P Pulse Ox O2 Delivery O2 Flow Rate FiO2 02/01/17 11:52 Room Air 02/01/17 11:15 36.8 83 22 117/52 93 Physical Exam Constitutional: Level of Distress: NAD Neck: supple Lungs: Auscultation: no wheezing, no rales/crackles, no rhonchi Cardiovascular: Heart Auscultation: RRR, no murmurs, no rubs Extremities: no cyanosis, no varicosities Assessment and Plan Assessment and Plan Normal nuclear stress. Impression: CP , atypical in character for angina, perhaps due to sensed ventricular ectopy Recent AF Unable to take ASA or anticoagulation due to h/o rectal bleeding Plan: Stable for DC from cardiac standpoint on increased dose of metoprolol tartrate 75 mg BID. Follow up with Cardio PA or undersigned in 1 month.
[2017-02-01 15:03] VITALS: BP 126/75; PULSE 72; TEMP 36.5; O2SAT 95
[2017-02-01] MEDS ORDERED: LPR25 PO (15:28)
--- NOTE | 2017-02-01 15:29 | Discharge Instructions ---
Discharge Instructions Date of Service Feb 01, 2017. Admission Reason for Admission: Chest Pain Discharge Discharge Diagnosis / Problem: chest pain Discharge Goals Goal(s): Decrease discomfort, Improve function Activity Recommendations Activity Limitations: resume your previous activity . Instructions / Follow-Up Instructions / Follow-Up FOLLOWUP WITH FAMILY DOCTOR Abby Cano ON February AT 1050AM Current Hospital Diet Patient's current hospital diet: Low Sodium Diet (2gm Na), AHA Diet (Heart Healthy) Discharge Diet Recommended Diet: AHA Diet (Heart Healthy) Pending Studies Studies pending at discharge: no Laboratory Results Lipid Panel Test 01/31/17 03:39 Range/Units Triglycerides Level 90 0-150 mg/dl Cholesterol Level 168 0-200 mg/dl HDL Cholesterol 60 mg/dl Cholesterol/HDL Ratio 2.8 LDL Cholesterol, Calculated 90 mg/dl Medical Emergencies . Who to Call and When: Medical Emergencies: If at any time you feel your situation is an emergency, please call 911 immediately. . Non-Emergent Contact Non-Emergency issues call your: Primary Care Provider . . "Provider Documentation" section prepared by Jerrod Schofield. VTE Core Measure Inpt VTE Proph given/why not?: SCD's
[2017-02-01 15:38] VITALS: BP 126/75; PULSE 72; TEMP 36.5; O2SAT 95
--- NOTE | 2017-02-01 19:00 | Progress Note ---
Internal Med Progress Note Date of Service: Feb 01, 2017. Provider Documentation: SUBJECTIVE: no chest pain or sob afebrile sp stress test complains of restless leg syndrome OBJECTIVE: Vital Signs-as noted below Exam: General-alert and oriented x 3 Not in distress ENT-normal hearing Neck-no neck masses Lungs-cta b/l no wheezing no crackles Heart-s1 and s2 heard regular rate and rhythm no murmurs' Abdomen-soft bowel sounds present non tender no distension Extremities-no edema no erythema Neuro-alert and awake moves extremities Lab data as noted below. ASSESSMENT & PLAN: CHEST PAIN Elevated dimer but CTA chest and venous Doppler negative serial ce and ekg unremarkable negative Lexiscan nuclear stress test asymptomatic PAROXYSMAL AFIB Currently in NSR Not anticoagulated due to history of rectal bleeding On beta mitchell will monitor. DIASTOLIC CHF Increased leg edema echo 01/25 - EF 55-60%, grade II diastolic dysfunction -on lasix 40mg daily d/c on home dose f/u with pcp HTN on metoprolol mackenzie was increased to 75mg bid will monitor f/u with pcp restless leg syndrome continue home meds f./u with pcp Discharged home Vital Signs: Date Time Temp Pulse Resp B/P Pulse Ox O2 Delivery O2 Flow Rate FiO2 02/01/17 15:38 36.5 72 18 95 Room Air 02/01/17 15:03 36.5 72 18 126/75 95 Room Air 02/01/17 11:52 Room Air 02/01/17 11:15 36.8 83 22 117/52 93 Room Air 02/01/17 08:00 Room Air 02/01/17 07:24 36.5 82 20 127/63 92 Room Air 02/01/17 04:00 Room Air CPAP 02/01/17 04:00 36.5 73 16 122/72 92 CPAP 02/01/17 00:04 37.0 55 16 138/75 96 CPAP 02/01/17 00:00 Room Air CPAP 01/31/17 20:00 Room Air 01/31/17 19:51 37.1 95 18 131/70 91 Room Air
--- NOTE | 2017-02-01 19:01 | Discharge Summary ---
Discharge Summary Date of Service Feb 01, 2017. Discharge Summary Admission Date: Jan 30, 2017 at 18:25 Discharge Date: Feb 01, 2017 Discharge Disposition: Home Principal Diagnosis: CHEST PAIN Secondary Diagnoses/Problems: 1) Atrial fibrillation Status: Chronic (2) Degenerative joint disease (DJD) of lumbar spine Status: Chronic (3) Diastolic CHF, chronic Status: Chronic (4) Hypertension Status: Chronic (5) Internal hemorrhoids Status: Chronic (6) Migraine headache Status: Chronic (7) Nonalcoholic fatty liver disease Status: Chronic (8) Restless leg syndrome Status: Chronic (9) Sleep apnea Procedures: NEGATIVE LEXISCAN NUCLEAR STRESS TEST Consultations: CARDIOLOGY Medication Reconciliation New Medications: Metoprolol Tartrate (Lopressor) 25 Mg Tab 75 MG PO BID for 30 Days, #180 TAB 2 Refills Continued Medications: Albuterol Hfa (Ventolin Hfa) 200 Puffs/40891 Mcg Aers 2 PUFFS INH QID PRN for SOB/Wheezing Furosemide (Furosemide) 40 Mg Tab 40 MG PO QAM Gabapentin (Gabapentin) 100 Mg Cap 100 MG PO TID Lorazepam (Lorazepam) 1 Mg Tab 1 MG PO HS PRN for Sleep Ondansetron (Ondansetron HCl) 4 Mg Tab 4 MG PO TID PRN for Nausea Potassium Chloride (Potassium Chloride ER) 20 Meq Tab 20 MEQ PO QAM Pramipexole (Mirapex) 0.125 Mg Tab 0.25 MG PO QAM, TAB Pramipexole (Mirapex) 0.125 Mg Tab 0.125 MG PO QPM, TAB Ranitidine HCl (Ranitidine HCl) 150 Mg Tab 150 MG PO BID Trazodone Hcl (Trazodone) 100 Mg Tab 100 MG PO HS Discontinued Medications: Metoprolol Tartrate (Lopressor) (Lopressor) 50 Mg Tab 50 MG PO BID Admission Information HPI (per Admitting provider): 62 year old female who presents to the ER with chest pain. Patient was recently admitted to [facility] 01/24 - 01/25 for new onset atrial fibrillation which was felt to be due to possible allergic reaction from Sulindac. Patient converted to NSR x 2 spontaneously and required one dose of IV metoprolol. Her Coreg was changed to metoprolol and Losartan was discontinued. She also received increased Lasix dose while hospitalized due to increased lower extremity edema however was discharged on her routine dose. She was not placed on anticoagulation due to history of severe rectal bleeding with use of antiplatelets. Patient reports last night she was awoken out of sleep from left sided chest pain. She describes the pain as ache with occasional radiation into the left shoulder. She reports the pain came and went throughout the entire night and day today. She reports the pain at its worse #8/10. No specific causative or alleviating factors for the pain. She reports she felt some episodes of palpitations. She had some associated shortness of breath and diaphoresis. She denies lightheadedness and nausea. She also notes increasing leg edema for the past couple of days. She denies abdominal pain, vomiting, and diarrhea. No fever or chills. She denies urinary symptoms. In the ER, patient is in NSR. EKG does not show any acute ST changes. Initial troponin is negative. She is currently chest pain free. Physical Exam (per Admitting): General Appearance: no apparent distress Head: normocephalic Eyes: normal inspection ENT: hearing grossly normal Neck: supple, no JVD Respiratory/Chest: lungs clear, normal breath sounds, no respiratory distress Cardiovascular: regular rate, rhythm, + pertinent finding (+2 edema BLLE) Abdomen/GI: normal bowel sounds, non tender, soft Extremities/Musculoskelatal: normal inspection, no calf tenderness Neurologic/Psych: no motor/sensory deficits, alert, normal mood/affect, oriented x 3 Skin: normal color, warm/dry Hospital Course CHEST PAIN Elevated dimer but CTA chest and venous Doppler negative serial ce and ekg unremarkable negative Lexiscan nuclear stress test asymptomatic PAROXYSMAL AFIB Currently in NSR Not anticoagulated due to history of rectal bleeding On beta mitchell will monitor. DIASTOLIC CHF Increased leg edema echo 01/25 - EF 55-60%, grade II diastolic dysfunction -on lasix 40mg daily d/c on home dose f/u with pcp HTN on metoprolol mackenzie was increased to 75mg bid will monitor f/u with pcp restless leg syndrome continue home meds f./u with pcp Discharged home Total time spent on discharge = 35MINUTES This includes examination of the patient, discharge planning, medication reconciliation, and communication with other providers. Discharge Instructions Please take this sheet to every appointment for the next month Discharge Instructions Date of Service Feb 01, 2017. Admission Reason for Admission: Chest Pain Discharge Discharge Diagnosis / Problem: chest pain Discharge Goals Goal(s): Decrease discomfort, Improve function Activity Recommendations Activity Limitations: resume your previous activity . Instructions / Follow-Up Instructions / Follow-Up FOLLOWUP WITH FAMILY DOCTOR Abby Cano ON February AT 1050AM Current Hospital Diet Patient's current hospital diet: Low Sodium Diet (2gm Na), AHA Diet (Heart Healthy) Discharge Diet Recommended Diet: AHA Diet (Heart Healthy) Pending Studies Studies pending at discharge: no Laboratory Results Lipid Panel Test 01/31/17 03:39 Range/Units Triglycerides Level 90 0-150 mg/dl Cholesterol Level 168 0-200 mg/dl HDL Cholesterol 60 mg/dl Cholesterol/HDL Ratio 2.8 LDL Cholesterol, Calculated 90 mg/dl Medical Emergencies . Who to Call and When: Medical Emergencies: If at any time you feel your situation is an emergency, please call 911 immediately. . Non-Emergent Contact Non-Emergency issues call your: Primary Care Provider . .
[2017-05-03] MEDS ORDERED: MRLP17X PO (09:21)
[2017-05-03] MEDS ORDERED: DOCU-94 PO (09:21)
[2017-05-03] MEDS ORDERED: PSYL58.636 PO (09:21)
[2017-05-03] MEDS ORDERED: FRRS300 PO (09:21)
== END 2017-02-01 16:04 | disposition home or self-care (01) ==
LOC: ENRESERVTM → ENRESERVDT → C.EDB 14:27 → C.EDINP 18:25 → C.MED 23:27
PROVIDERS: ADMIT Internal Medicine; ATTEND Internal Medicine
DX: R07.89 Other chest pain (principal); I48.0 Paroxysmal atrial fibrillation; I48.2 Chronic atrial fibrillation; I10 Essential (primary) hypertension; K64.8 Other hemorrhoids; G25.81 Restless legs syndrome; I50.32 Chronic diastolic (congestive) heart failure; K76.0 Fatty (change of) liver, not elsewhere classified; M79.7 Fibromyalgia; F32.9 Major depressive disorder, single episode, unspecified; G47.30 Sleep apnea, unspecified; Z90.49 Acquired absence of other specified parts of digestive tract; Z90.710 Acquired absence of both cervix and uterus; Z87.891 Personal history of nicotine dependence; Z82.49 Family history of ischemic heart disease and other diseases of the circulatory system; Z80.1 Family history of malignant neoplasm of trachea, bronchus and lung; G47.33 Obstructive sleep apnea (adult) (pediatric)

== ENCOUNTER 2017-05-01 16:41 | Observation (INO) | payer OTHER ==
[~2017-05-01] VITALS: Ht 165.1 cm; Wt 137.0 kg
[~2017-05-01 16:41] MED LIST changes: -ALBUAER INH; -FRS/40 PO; +LPR25 PO; +LSX40 PO; -METO50TA17 PO; -ONDA4TAB46 PO; +ONDA4TAB9 PO; +POTA-65 PO; -POTA20TA16 PO; +PRAM0.129 PO; +VNTHFA/IN INH
[2017-05-01] MEDS ORDERED: SODIUM CHLORIDE 0.9% 1000ML 1,000 ML IV STA (17:09)
[2017-05-01 17:38] LABS: BASO % 0.4 %; BASO ABS # 0.04 K/uL (0-0.2); COMPLETE YES; EOS % 1.8 %; HEMATOCRIT 32.1 % (37-47); IG% 1.2 %; LYMPH % 21.7 %; LYMPH ABS # 2.09 K/uL (1.2-3.4); MEAN CELL VOLUME 84.5 fL (80-100); MEAN CORPUSCULAR HEMOGLOBIN 26.6 pg (25-34); MEAN CORPUSCULAR HGB CONC 31.5 g/dl (32-36); MEAN PLATELET VOLUME 9.1 fL (7.4-10.4); MONO % 5.8 %; NEUT % 69.1 %; PLATELET COUNT 284 K/uL (130-400); WHITE BLOOD COUNT 9.62 K/uL (4.8-10.8)
[2017-05-01 17:47] LABS: PARTIAL THROMBOPLASTIN RATIO 0.9; PROTHROMBIN TIME (PATIENT) 10.3 SECONDS (9.0-12.0)
[2017-05-01] MEDS ORDERED: DMD20 PO (17:49)
[2017-05-01] MEDS ORDERED: METO100T14 PO (17:49)
[2017-05-01] MEDS ORDERED: SPR25 PO (17:49)
--- NOTE | 2017-05-01 17:52 | DIAGNOSTIC IMAGING REPORT ---
CHEST ONE VIEW PORTABLE CLINICAL HISTORY: EVALUATE GI BLEED dyspnea COMPARISON STUDY: 01/30/2017 FINDINGS: The bones soft tissues and hemidiaphragms are normal. The cardiomediastinal silhouette is normal. The lungs are clear. The pulmonary vasculature is normal. IMPRESSION: Negative chest. Electronically signed by: Joe Lamas M.D. 05/01/2017 5:51 PM Dictated Date/Time: 05/01/2017 5:51 PM
[2017-05-01 17:54] LABS: ALT/SGPT 19 U/L (12-78); BLOOD UREA NITROGEN 13 mg/dl (7-18); BUN/CREATININE RATIO 11.7 (10-20); CALCIUM 8.7 mg/dl (8.5-10.1); CARBON DIOXIDE 33 mmol/L (21-32); CHLORIDE 105 mmol/L (98-107); GLUCOSE 126 mg/dl (70-99); POTASSIUM 3.9 mmol/L (3.5-5.1); SODIUM 142 mmol/L (136-145)
[2017-05-01 17:59] LABS: ALKALINE PHOSPHATASE 91 U/L (45-117); AST/SGOT 14 U/L (15-37)
--- NOTE | 2017-05-01 18:32 | EMERGENCY ROOM VISIT NOTE ---
History Report prepared by David: Endy Baptiste Under the Supervision of: Dr. Antwan Wallace D.O. First contact with patient: 17:08 Chief Complaint: RECTAL BLEEDING Stated Complaint: RECTAL BLEEDING Nursing Triage Summary: Pt c/o bright red rectal bleeding x3 days Pt reports clots hx hemorrhoids History of Present Illness The patient is a 62 year old female who presents to the Emergency Room with complaints of rectal bleeding that began 2 days ago. She states that at that time, she had 4 episodes of this bleeding associated with her bowel movements. She describes them as bloody with clots. Yesterday, she had 5 episodes. Today, she had two, with the most recent one being two hours ago. She also is experiencing weakness and dizziness that began today. She has baseline heart palpitations. She denies any chest pain, shortness of breath, or abdominal pain. Source of History: patient Onset: 2 days ago Position: other (Rectum) Symptom Intensity: moderate Quality: other (Bleeding) Timing: intermittent Associated Symptoms: + weakness, No chest pain, No SOB, No abdominal pain Note: She is experiencing dizziness as well. Review of Systems See HPI for pertinent positives & negatives. A total of 10 systems reviewed and were otherwise negative. Past Medical & Surgical Medical Problems: (1) Atrial fibrillation (2) Degenerative joint disease (DJD) of lumbar spine (3) Diastolic CHF, chronic (4) Hypertension (5) Internal hemorrhoids (6) Migraine headache (7) Nonalcoholic fatty liver disease (8) Restless leg syndrome (9) Sleep apnea Surgical Problems: (1) Status post appendectomy (2) Status post section (3) Status post hysterectomy Family History FH: COPD (chronic obstructive pulmonary disease) FATHER FH: diabetes mellitus MOTHER FH: heart disease FATHER (DC in his 40s) GRANDFATHER FH: hypertension MOTHER FH: lung cancer MOTHER Social History Smoking Status: Never Smoker Smokeless Tobacco Use: No Alcohol Use: none Drug Use: none Housing Status: lives with family Current/Historical Medications Scheduled Lorazepam (Lorazepam), 1 MG PO HS Metoprolol Tartrate (Lopressor) (Lopressor), 100 MG PO BID Pramipexole (Mirapex), 0.25 MG PO QPM Pramipexole (Mirapex), 0.125 MG PO HS Spironolactone (Spironolactone), 25 MG PO DAILY Torsemide (Torsemide), 20 MG PO DAILY Trazodone Hcl (Trazodone), 100 MG PO HS Scheduled PRN Albuterol Hfa (Ventolin Hfa), 2 PUFFS INH QID PRN for SOB/Wheezing Allergies Coded Allergies: Sulindac (Verified Allergy, Intermediate, HIVES, 05/01/17) Adhesives (Verified Allergy, Unknown, "Tape" -- blisters, 05/01/17) Cyclobenzaprine (Verified Allergy, Unknown, RASH, 05/01/17) Lisinopril (Verified Allergy, Unknown, Cough, 05/01/17) Source - PT/GMG Tetanus Toxoid (Unverified Allergy, Unknown, IRRITABILITY, 05/01/17) Hydrochlorothiazide w/Triamterene (Unverified Adverse Reaction, Severe, COUGH, 05/01/17) Physical Exam Vital Signs Date Time Temp Pulse Resp B/P (MAP) Pulse Ox O2 Delivery O2 Flow Rate FiO2 05/01/17 17:56 86 05/01/17 16:48 36.3 91 20 173/78 93 Room Air Physical Exam CONSTITUTIONAL/VITAL SIGNS: Reviewed / noted above. GENERAL: Non-toxic in appearance. INTEGUMENTARY: Warm, dry, and [place]. HEAD: Normocephalic. EYES: without scleral icterus or trauma. ENT/OROPHARYNX: clear and moist. LYMPHADENOPATHY/NECK: Is supple without lymphadenopathy or meningismus. RESPIRATORY: Lungs clear and equal. CARDIOVASCULAR: Regular rate and rhythm. GI/ABDOMEN: Soft and nontender. No organomegaly or pulsatile mass. No rebound or guarding. Normal bowel sounds. EXTREMITIES: Warm and well perfused. BACK: No CVA tenderness. NEUROLOGICAL: Intact without focal deficits. PSYCHIATRIC: normal affect. MUSCULOSKELETAL: Normally developed with good muscle tone. Medical Decision & Procedures ER Provider Diagnostic Interpretation: Radiology results as stated below per my review and radiologist interpretation: CHEST ONE VIEW PORTABLE CLINICAL HISTORY: EVALUATE GI BLEED dyspnea COMPARISON STUDY: 01/30/2017 FINDINGS: The bones soft tissues and hemidiaphragms are normal. The cardiomediastinal silhouette is normal. The lungs are clear. The pulmonary vasculature is normal. IMPRESSION: Negative chest. Electronically signed by: Joe Lamas M.D. 05/01/2017 5:51 PM Dictated Date/Time: 05/01/2017 5:51 PM Laboratory Results 05/01/17 17:28 Red Blood Count 3.80, Mean Corpuscular Volume 84.5, Mean Corpuscular Hemoglobin 26.6, Mean Corpuscular Hemoglobin Concent 31.5, Mean Platelet Volume 9.1, Neutrophils (%) (Auto) 69.1, Lymphocytes (%) (Auto) 21.7, Monocytes (%) (Auto) 5.8, Eosinophils (%) (Auto) 1.8, Basophils (%) (Auto) 0.4, Neutrophils # (Auto) 6.64, Lymphocytes # (Auto) 2.09, Monocytes # (Auto) 0.56, Eosinophils # (Auto) 0.17, Basophils # (Auto) 0.04 05/01/17 17:28 Test 05/01/17 17:28 White Blood Count 9.62 K/uL (4.8-10.8) Red Blood Count 3.80 M/uL (4.2-5.4) Hemoglobin 10.1 g/dL (12.0-16.0) Hematocrit 32.1 % (37-47) Mean Corpuscular Volume 84.5 fL (80-100) Mean Corpuscular Hemoglobin 26.6 pg (25-34) Mean Corpuscular Hemoglobin Concent 31.5 g/dl (32-36) Platelet Count 284 K/uL (130-400) Mean Platelet Volume 9.1 fL (7.4-10.4) Neutrophils (%) (Auto) 69.1 % Lymphocytes (%) (Auto) 21.7 % Monocytes (%) (Auto) 5.8 % Eosinophils (%) (Auto) 1.8 % Basophils (%) (Auto) 0.4 % Neutrophils # (Auto) 6.64 K/uL (1.4-6.5) Lymphocytes # (Auto) 2.09 K/uL (1.2-3.4) Monocytes # (Auto) 0.56 K/uL (0.11-0.59) Eosinophils # (Auto) 0.17 K/uL (0-0.5) Basophils # (Auto) 0.04 K/uL (0-0.2) RDW Standard Deviation 49.4 fL (36.4-46.3) RDW Coefficient of Variation 16.0 % (11.5-14.5) Immature Granulocyte % (Auto) 1.2 % Immature Granulocyte # (Auto) 0.12 K/uL (0.00-0.02) Prothrombin Time 10.3 SECONDS (9.0-12.0) Prothromb Time International Ratio 1.0 (0.9-1.1) Activated Partial Thromboplast Time 23.6 SECONDS (21.0-31.0) Partial Thromboplastin Ratio 0.9 Anion Gap 4.0 mmol/L (3-11) Est Creatinine Clear Calc Drug Dose 74.8 ml/min Estimated GFR () 62.8 Estimated GFR (Non- 54.1 BUN/Creatinine Ratio 11.7 (10-20) Calcium Level 8.7 mg/dl (8.5-10.1) Total Bilirubin 0.2 mg/dl (0.2-1) Direct Bilirubin < 0.1 mg/dl (0-0.2) Aspartate Amino Transf (AST/SGOT) 14 U/L (15-37) Alanine Aminotransferase (ALT/SGPT) 19 U/L (12-78) Alkaline Phosphatase 91 U/L (45-117) Total Creatine Kinase 56 U/L (26-192) Creatine Kinase MB < 0.5 ng/ml (0.5-3.6) Creatine Kinase MB Ratio (0-3.0) Troponin I < 0.015 ng/ml (0-0.045) Total Protein 7.0 gm/dl (6.4-8.2) Albumin 3.0 gm/dl (3.4-5.0) Lipase 93 U/L (73-393) Laboratory results as stated above per my review. Medications Administered Medications (Trade) Dose Ordered Sig/Ameya Route Start Time Stop Time Status Last Admin Dose Admin Sodium Chloride 1,000 ml @ 200 mls/hr Q5H STAT IV 05/01/17 17:09 05/01/17 22:08 05/01/17 18:02 200 MLS/HR ECG Indication: other (Rectal Bleeding) Rate (beats per minute): 88 Rhythm: normal sinus Findings: no acute ischemic change, no ectopy ED Course 1708: Previous medical records were reviewed. The patient was evaluated in room B3. A complete history and physical examination was performed. 1709: Ordered Sodium Chloride 1000 ml @ 200 mls/hr IV 1838: On reevaluation, the patient is restin. I discussed the results and findings with her. She verbalized agreement of the treatment plan. I spoke with the [facility]. The patient will be evaluated by one of their medical staff for further management and care. Medical Decision Differential diagnosis: Etiologies such as diverticulosis, AVM, coagulopathy, colitis, inflammatory bowel disease, malignancy, Rachelle-Ma tear, esophagitis, peptic ulcer disease , variceal bleed, gastritis, epistaxis, fissure, hemorrhoids, as well as others were entertained. Medication Reconciliation: I attest that I have personally reviewed the patient' s current medication list. Blood pressure Screening: Patient was found to have an elevated blood pressure and was referred to their primary doctor for recheck and further treatment. This is a 62-year-old female who presents to the ED with a chief complaint of rectal bleeding. The patient states that she has been having rectal bleeding for the past 3 days. She states that she is passing clots at times. 3 days ago she had about 4 episodes, yesterday 5 and today 2. She states that she is feeling increasingly weak today. She denies any shortness of breath or chest pains. No lightheadedness. Her initial blood pressure was elevated. Physical exam was unremarkable. Hemoglobin is 10.1. Hemoglobin was 13 3 months ago. The patient was given some IV fluids here. Her chemistry panel was unremarkable as well as a chest x-ray. EKG showed normal sinus rhythm without ischemic changes. Because of the patient's symptoms, the patient be observed for further evaluation by the hospitalist service. Consults Time Called: [phone] Consulting Physician: Asmita Singh Returned Call: [phone] They will be evaluating the patient for further management and care. Impression Primary Impression: GI bleed Scribe Attestation The scribe's documentation has been prepared under my direction and personally reviewed by me in its entirety. I confirm that the note above accurately reflects all work, treatment, procedures, and medical decision making performed by me. Departure Information Dispostion Being Evaluated By Hospitalist Referrals Abby Shipman D.O. (PCP) Patient Instructions [facility]
[2017-05-01] MEDS ORDERED: ZNTT/150 PO (19:19)
[2017-05-01] MEDS ORDERED: METO-551 PO (19:19)
[2017-05-01] MEDS ORDERED: IV FLUIDS COMPLETED PRN (19:30)
[2017-05-01 19:39] VITALS: BP 166/65; PULSE 96; TEMP 36.3; O2SAT 97; Ht 165.1 cm; Wt 137.0 kg
[2017-05-01] MEDS ORDERED: MoRPHine SULFATE 4 MG/ML 1 ML CARP\\VIAL IV PRN (20:00)
[2017-05-01] MEDS ORDERED: TRAMADOL HCL 50 MG TAB PO PRN (20:00)
[2017-05-01] MEDS ORDERED: ONDANSETRON INJ 2 MG/ML 2 ML VIAL IV PRN (20:00)
[2017-05-01] MEDS ORDERED: LORAZEPAM 2 MG/ML 1 ML VIAL IV PRN (20:00)
[2017-05-01] MEDS ORDERED: ACETAMINOPHEN 325 MG TAB PO PRN (20:00)
[2017-05-01] MEDS ORDERED: LACTATED RINGER'S 1000ML 1,000 ML IV ONE (20:00)
--- NOTE | 2017-05-01 20:13 | History and Physical ---
History & Physical Date & Time of Service: May 01, 2017 ~ 19:00 Chief Complaint: Rectal Bleeding Primary Care Physician: Abby Shipman D.O. History of Present Illness 62 year old female who presents to the ER with rectal bleeding. Patient reports symptoms have been going on for 3 days. She reports bright red bleeding with clots. She has had multiple episodes per day. She denies abdominal pain or pain with the bowel movements. She reports nausea with two episodes of vomiting yesterday. She denies coffee ground emesis or hematemesis. She has chronic exertional shortness of breath which she feels is a little worse than normal. She has felt lightheaded and dizzy with standing and ambulation. She denies any syncopal events. She has chronic palpitations which are unchanged. No chest pain. She denies fever and chills. No urinary symptoms. In the ER, hgb is 10.1 ( 12.3 about 3 months ago). Vitals are stable. Past Medical/Surgical History Medical Problems: (1) Atrial fibrillation Status: Chronic (2) Degenerative joint disease (DJD) of lumbar spine Status: Chronic (3) Diastolic CHF, chronic Status: Chronic (4) Hypertension Status: Chronic (5) Internal hemorrhoids Status: Chronic (6) Migraine headache Status: Chronic (7) Nonalcoholic fatty liver disease Status: Chronic (8) Restless leg syndrome Status: Chronic (9) Sleep apnea Status: Chronic Surgical Problems: (1) Status post appendectomy Status: Chronic (2) Status post section Status: Chronic (3) Status post hysterectomy Status: Chronic Family History FH: COPD (chronic obstructive pulmonary disease) FATHER FH: diabetes mellitus MOTHER FH: heart disease FATHER (ME in his 40s) GRANDFATHER FH: hypertension MOTHER FH: lung cancer MOTHER Social History Smoking Status: Former Smoker Alcohol Use: none Drug Use: marijuana Immunizations History of Tetanus Vaccine?: Yes Tetanus Immunization Date: Aug 11, 2008 Multi-Drug Resistant Organisms History of MDRO: No Allergies Coded Allergies: Sulindac (Verified Allergy, Intermediate, HIVES, 05/01/17) Adhesives (Verified Allergy, Unknown, "Tape" -- blisters, 05/01/17) Cyclobenzaprine (Verified Allergy, Unknown, RASH, 05/01/17) Hydrochlorothiazide w/Triamterene (Verified Adverse Reaction, Intermediate , COUGH, 05/01/17) Lisinopril (Verified Adverse Reaction, Unknown, Cough, 05/01/17) Source - PT/GMG Tetanus Toxoid (Verified Adverse Reaction, Unknown, IRRITABILITY, 05/01/17) Home Medications Scheduled Metoprolol Tartrate (Lopressor), 50 MG PO BID Pramipexole (Mirapex), 0.25 MG PO QPM Pramipexole (Mirapex), 0.125 MG PO HS Ranitidine (Zantac), 150 MG PO BID Spironolactone (Spironolactone), 25 MG PO DAILY Torsemide (Torsemide), 20 MG PO DAILY Trazodone Hcl (Trazodone), 100 MG PO HS Scheduled PRN Albuterol Hfa (Ventolin Hfa), 2 PUFFS INH QID PRN for SOB/Wheezing Lorazepam (Lorazepam), 1 MG PO HS PRN for Insomnia Review of Systems ROS per HPI, all other systems reviewed and negative Physical Exam Vital Signs Date Time Temp Pulse Resp B/P (MAP) Pulse Ox O2 Delivery O2 Flow Rate FiO2 05/01/17 19:39 36.3 96 20 166/65 05/01/17 19:04 96 20 166/65 94 Room Air 05/01/17 17:56 86 05/01/17 16:48 36.3 91 20 173/78 93 Room Air General Appearance: no apparent distress Head: normocephalic Eyes: normal inspection ENT: hearing grossly normal Neck: supple, no JVD Respiratory/Chest: lungs clear, normal breath sounds, no respiratory distress Cardiovascular: regular rate, rhythm, no edema, normal peripheral pulses Abdomen/GI: normal bowel sounds, non tender, soft Extremities/Musculoskelatal: normal inspection, no calf tenderness Neurologic/Psych: no motor/sensory deficits, alert, normal mood/affect, oriented x 3 Skin: normal color, warm/dry Diagnostics Laboratory Results Results Past 24 Hours Test 05/01/17 17:28 Range/Units White Blood Count 9.62 4.8-10.8 K/uL Red Blood Count 3.80 4.2-5.4 M/uL Hemoglobin 10.1 12.0-16.0 g/dL Hematocrit 32.1 37-47 % Mean Corpuscular Volume 84.5 80-100 fL Mean Corpuscular Hemoglobin 26.6 25-34 pg Mean Corpuscular Hemoglobin Concent 31.5 32-36 g/dl Platelet Count 284 130-400 K/uL Mean Platelet Volume 9.1 7.4-10.4 fL Neutrophils (%) (Auto) 69.1 % Lymphocytes (%) (Auto) 21.7 % Monocytes (%) (Auto) 5.8 % Eosinophils (%) (Auto) 1.8 % Basophils (%) (Auto) 0.4 % Neutrophils # (Auto) 6.64 1.4-6.5 K/uL Lymphocytes # (Auto) 2.09 1.2-3.4 K/uL Monocytes # (Auto) 0.56 0.11-0.59 K/uL Eosinophils # (Auto) 0.17 0-0.5 K/uL Basophils # (Auto) 0.04 0-0.2 K/uL RDW Standard Deviation 49.4 36.4-46.3 fL RDW Coefficient of Variation 16.0 11.5-14.5 % Immature Granulocyte % (Auto) 1.2 % Immature Granulocyte # (Auto) 0.12 0.00-0.02 K/uL Prothrombin Time 10.3 9.0-12.0 SECONDS Prothromb Time International Ratio 1.0 0.9-1.1 Activated Partial Thromboplast Time 23.6 21.0-31.0 SECONDS Partial Thromboplastin Ratio 0.9 Sodium Level 142 136-145 mmol/L Potassium Level 3.9 3.5-5.1 mmol/L Chloride Level 105 98-107 mmol/L Carbon Dioxide Level 33 21-32 mmol/L Anion Gap 4.0 3-11 mmol/L Blood Urea Nitrogen 13 7-18 mg/dl Creatinine 1.10 0.60-1.20 mg/dl Est Creatinine Clear Calc Drug Dose 74.8 ml/min Estimated GFR () 62.8 Estimated GFR (Non- 54.1 BUN/Creatinine Ratio 11.7 10-20 Random Glucose 126 70-99 mg/dl Calcium Level 8.7 8.5-10.1 mg/dl Magnesium Level 2.2 1.8-2.4 mg/dl Total Bilirubin 0.2 0.2-1 mg/dl Direct Bilirubin < 0.1 0-0.2 mg/dl Aspartate Amino Transf (AST/SGOT) 14 15-37 U/L Alanine Aminotransferase (ALT/SGPT) 19 12-78 U/L Alkaline Phosphatase 91 45-117 U/L Total Creatine Kinase 56 26-192 U/L Creatine Kinase MB < 0.5 0.5-3.6 ng/ml Creatine Kinase MB Ratio 0-3.0 Troponin I < 0.015 0-0.045 ng/ml Total Protein 7.0 6.4-8.2 gm/dl Albumin 3.0 3.4-5.0 gm/dl Lipase 93 73-393 U/L Diagnostic Radiology CXR IMPRESSION: Negative chest. Impression Assessment and Plan LOWER GI BLEED - admit to med/surg - patient presenting with painless BRBPR and clots x 3 days; vitals stable - suspect diverticular bleed vs. hemorrhoids - c scope 09/2016 - diverticulosis and internal hemorrhoids - hgb 10.1 (down from 12.3 about 3 months ago) - continue to check serial H/H - GI consult ATRIAL FIBRILLATION - rate controlled on metoprolo, will continue - patient declines anticoagulation and antiarrhythmics CHRONIC DIASTOLIC CHF - appears euvolemic - will hold diuretics due to GI bleeding DVT PROPHYLAXIS - SCDs due to GI bleeding DISPO - The patient will be placed as observation status for now until further work up is complete. Advanced Directives Existing Living Will: No Existing Power of Cable Braider: No VTE Prophylaxis VTE Risk Assessment Done? Y/N: Yes Risk Level: Moderate Assessment/Plan IM ATTENDING : Px seen and examined. Preceding documentation by HECTOR Mccabe reviewed. In addition, patient co of periumbilical/lower abd pain. CT abd pelvis : diverticulosis, fatty liver FINAL A/P as follows : 1. LGIB hx polyps, diverticulosis, int hemorrhoids on 2016 colonoscopy ro cdif 2. anemia 2 to above 3. PAF as per records, px NSR OBS GMF stool cdif transfuse prbc for Hg less than 7 and/or symptomatic anemia GI consult RE LGIB DVT prophylaxis, SCDS re LGIB Full code
[2017-05-01] MEDS ORDERED: OPTIRAY 320 IV PRN (21:15)
--- NOTE | 2017-05-01 21:33 | DIAGNOSTIC IMAGING REPORT ---
ABDOMEN AND PELVIS CT WITH IV CONTRAST CT DOSE: 1573.82 mGy.cm HISTORY: Pain raquel umbical/abd pain TECHNIQUE: Multiaxial CT images of the abdomen and pelvis were performed following the use of intravenous contrast. COMPARISON STUDY: 01/10/2016 FINDINGS: Fatty infiltration of liver. Nonobstructive bowel pattern. Anterior abdominal wall is intact. Prior hysterectomy. Mild scattered colonic diverticulosis. No evidence of diverticulitis. Normal appendix. IMPRESSION: Mild fatty infiltration of liver. Otherwise negative study status post hysterectomy Electronically signed by: Joe Lamas M.D. 05/01/2017 9:32 PM Dictated Date/Time: 05/01/2017 9:28 PM
[2017-05-01] MEDS: LORAZEPAM 1 MG TAB PO PRN (21:37)
[2017-05-01] MEDS: PRAMIPEXOLE DIHYDROCHLORIDE 0.25MG TAB PO SCH ×2 (21:38→21:39)
[2017-05-01] MEDS: RANITIDINE HCL 150 MG TAB PO SCH (21:38)
[2017-05-01] MEDS: TRAZODONE HCL 100 MG TAB PO SCH (21:40)
[2017-05-01] MEDS: METOPROLOL TARTRATE 50 MG TAB PO SCH (21:40)
[2017-05-01 23:37] VITALS: BP 135/85; PULSE 100; TEMP 36.8; O2SAT 97
[2017-05-01] MEDS ORDERED: LORAZEPAM INJ 0.5 MG in SYRINGE 0.75 ML IV PRN (23:45)
[2017-05-02 00:49] LABS: HEMATOCRIT 30.2 % (37-47)
[2017-05-02 06:15] LABS: BASO % 0.4 %; BASO ABS # 0.03 K/uL (0-0.2); COMPLETE YES; HEMATOCRIT 30.1 % (37-47); IG% 0.9 %; LYMPH % 31.2 %; LYMPH ABS # 2.45 K/uL (1.2-3.4); MEAN CORPUSCULAR HGB CONC 30.6 g/dl (32-36); MEAN PLATELET VOLUME 9.1 fL (7.4-10.4); MONO % 8.5 %; PLATELET COUNT 245 K/uL (130-400); RED BLOOD COUNT 3.54 M/uL (4.2-5.4); WHITE BLOOD COUNT 7.86 K/uL (4.8-10.8)
[2017-05-02 06:58] VITALS: BP 132/74; PULSE 85; TEMP 36.7; O2SAT 95
--- NOTE | 2017-05-02 07:30 | Gastrointestinal Consultation ---
Gastrointestinal Consultation Date of Consultation: May 02, 2017 Attending Physician: Augie Consulting Physician: Alcides Reason for Consultation: GI bleed History of Present Illness Patient is a 62 year old female w/ PMH significant for internal hemorrhoids, HTN , CHF, NAFLD and others listed below who presented through the ED for evaluation of BRBPR. Pt was seen and evaluated this AM. She had a BM this morning which was brown without any rectal bleeding. She has a 3 day history of BRBPR "dripping in the toilet bowl with some clots. She tells me it was hard to see her stool through the blood but she believes her stool was formed. She has had rectal bleeding in the past secondary to her hemorrhoids. She tells me she had these banded many years ago but it was very painful and she never followed up for repeat procedures as suggested after her most recent colonoscopy in September. She denies any rectal pain or rectal pressure currently. She tells me she was lightheaded and dizzy yesterday. Denies fever, chills, chest pain, SOB, abdominal pain. She wants to go home. HGB has dropped from 12.3 --> 9.2. Labs otherwise unremarkable. Colonoscopy 09/05/16: One 4 mm polyp in the transverse colon. Resected and retrieved.The examined portion of the ileum was normal. Diverticulosis in the sigmoid colon. Internal hemorrhoids. The examination was otherwise normal on direct and retroflexion views. Biopsies were taken with a cold forceps from the entire colon for evaluation of microscopic colitis. Past Medical/Surgical History Medical Problems: (1) Allergic reaction Status: Acute (2) Bilateral leg pain Status: Acute (3) Congestive heart disease Status: Acute (4) History of CHF (congestive heart failure) Status: Acute (5) New onset a-fib Status: Acute (6) Osteoarthritis of knees, bilateral Status: Acute (7) Tachycardia Status: Acute Past Medical History: HTN, AFIB, DJD, CHF, migraines, NAFLD, sleep apnea, restless leg, rectal bleeding, depression/anxiety, fibromyalgia Past Surgical History: appendectomy, section, hysterectomy, colonoscopy Family History FH: COPD (chronic obstructive pulmonary disease) FATHER FH: diabetes mellitus MOTHER FH: heart disease FATHER (DE in his 40s) GRANDFATHER FH: hypertension MOTHER FH: lung cancer MOTHER Social History Smoking Status: Former Smoker Alcohol Use: none Drug Use: marijuana Housing Status: lives with family Allergies Coded Allergies: Sulindac (Verified Allergy, Intermediate, HIVES, 05/01/17) Adhesives (Verified Allergy, Unknown, "Tape" -- blisters, 05/01/17) Cyclobenzaprine (Verified Allergy, Unknown, RASH, 05/01/17) Hydrochlorothiazide w/Triamterene (Verified Adverse Reaction, Intermediate , COUGH, 05/01/17) Lisinopril (Verified Adverse Reaction, Unknown, Cough, 05/01/17) Source - PT/GMG Tetanus Toxoid (Verified Adverse Reaction, Unknown, IRRITABILITY, 05/01/17) Current Medications Home Meds and Scripts Medications Dose Route/Sig Max Daily Dose Days Date Category Dose Instructions Zantac (Ranitidine HCl) 150 Mg Tab 150 Mg PO BID 05/01/17 Reported Lopressor (Metoprolol Tartrate) 50 Mg Tab 50 Mg PO BID 05/01/17 Reported Spironolactone 25 Mg Tab 25 Mg PO DAILY 05/01/17 Reported Torsemide 20 Mg Tab 20 Mg PO DAILY 05/01/17 Reported Ventolin Hfa (Albuterol) 200 Puffs/[id number] Mcg Aers 2 Puffs INH QID PRN 01/30/17 Reported Lorazepam 1 Mg Tab 1 Mg PO HS PRN 01/24/17 Reported Mirapex (Pramipexole Dihydrochloride) 0.125 Mg Tab 0.125 Mg PO HS 09/04/16 Reported TAKE 1 TAB AT 2300 Mirapex (Pramipexole Dihydrochloride) 0.125 Mg Tab 0.25 Mg PO QPM 09/04/16 Reported TAKE 2 TABS AT 2100 Trazodone (Trazodone HCl) 100 Mg Tab 100 Mg PO HS 07/12/16 Reported Review of Systems Constitutional: No fever, No chills Respiratory: No cough, No shortness of breath Cardiac: No chest pain, No edema Abdomen: + GI bleeding (none today), No pain, No nausea, No vomiting, No diarrhea, No constipation Physical Exam Date Time Temp Pulse Resp B/P (MAP) Pulse Ox O2 Delivery O2 Flow Rate FiO2 05/02/17 06:58 36.7 85 18 132/74 (93) 95 Nasal Cannula 2.0 05/02/17 00:00 Nasal Cannula 2.0 05/01/17 23:37 36.8 100 20 135/85 (102) 97 Room Air 05/01/17 19:39 36.3 96 20 166/65 97 Room Air 05/01/17 19:04 96 20 166/65 94 Room Air 05/01/17 17:56 86 05/01/17 16:48 36.3 91 20 173/78 93 Room Air General Appearance: no apparent distress (pt is ambulating from bathroom back to chair ) Eyes: PERRL ENT: hearing grossly normal Respiratory/Chest: lungs clear, normal breath sounds Cardiovascular: regular rate, rhythm Abdomen: normal bowel sounds, non tender, soft, no organomegaly, + pertinent finding (WILBERTO with large, nonthrombosed external hemorrhoids. No blood present on exam. ) Neurologic/Psych: alert, normal mood/affect, oriented x 3 Skin: normal color, warm/dry, no rash Laboratory Results Last 24 Hours Test 05/01/17 17:28 05/02/17 00:28 05/02/17 06:00 White Blood Count 9.62 K/uL 7.86 K/uL Red Blood Count 3.80 M/uL 3.54 M/uL Hemoglobin 10.1 g/dL 9.3 g/dL 9.2 g/dL Hematocrit 32.1 % 30.2 % 30.1 % Mean Corpuscular Volume 84.5 fL 85.0 fL Mean Corpuscular Hemoglobin 26.6 pg 26.0 pg Mean Corpuscular Hemoglobin Concent 31.5 g/dl 30.6 g/dl Platelet Count 284 K/uL 245 K/uL Mean Platelet Volume 9.1 fL 9.1 fL Neutrophils (%) (Auto) 69.1 % 57.0 % Lymphocytes (%) (Auto) 21.7 % 31.2 % Monocytes (%) (Auto) 5.8 % 8.5 % Eosinophils (%) (Auto) 1.8 % 2.0 % Basophils (%) (Auto) 0.4 % 0.4 % Neutrophils # (Auto) 6.64 K/uL 4.48 K/uL Lymphocytes # (Auto) 2.09 K/uL 2.45 K/uL Monocytes # (Auto) 0.56 K/uL 0.67 K/uL Eosinophils # (Auto) 0.17 K/uL 0.16 K/uL Basophils # (Auto) 0.04 K/uL 0.03 K/uL RDW Standard Deviation 49.4 fL 50.1 fL RDW Coefficient of Variation 16.0 % 16.0 % Immature Granulocyte % (Auto) 1.2 % 0.9 % Immature Granulocyte # (Auto) 0.12 K/uL 0.07 K/uL Prothrombin Time 10.3 SECONDS Prothromb Time International Ratio 1.0 Activated Partial Thromboplast Time 23.6 SECONDS Partial Thromboplastin Ratio 0.9 Sodium Level 142 mmol/L Potassium Level 3.9 mmol/L Chloride Level 105 mmol/L Carbon Dioxide Level 33 mmol/L Anion Gap 4.0 mmol/L Blood Urea Nitrogen 13 mg/dl Creatinine 1.10 mg/dl Est Creatinine Clear Calc Drug Dose 74.8 ml/min Estimated GFR () 62.8 Estimated GFR (Non- 54.1 BUN/Creatinine Ratio 11.7 Random Glucose 126 mg/dl Calcium Level 8.7 mg/dl Magnesium Level 2.2 mg/dl Total Bilirubin 0.2 mg/dl Direct Bilirubin < 0.1 mg/dl Aspartate Amino Transf (AST/SGOT) 14 U/L Alanine Aminotransferase (ALT/SGPT) 19 U/L Alkaline Phosphatase 91 U/L Total Creatine Kinase 56 U/L Creatine Kinase MB < 0.5 ng/ml Creatine Kinase MB Ratio Troponin I < 0.015 ng/ml Total Protein 7.0 gm/dl Albumin 3.0 gm/dl Lipase 93 U/L Impression Patient is a 62 year old female with large internal/external hemorrhoids and diverticula with a recent colonoscopy in 09/20 otherwise unremarkable who presented through the ED with painless rectal bleeding x 3 days with clots. C.diff is pending. Rectal bleeding appears to be slowing down - 5 episodes , 2 episodes 05/01/17 and a normal brown stool without any rectal bleeding today 05/02/17. Differentials include hemorrhoid vs diverticular bleed. Plan Monitor stools S/S of GI blood loss Trend H&H (12-->9) Transfuse as needed Diet as tolerated Follow up stool for c.diff Bowel regimen for constipation Miralax 17g daily May hold for loose stools Fiber supplement daily Outpatient surgical evaluation of internal/external hemorrhoids GI will follow while admitted. Please call with any questions or concerns. ATTESTATION: I have performed a history and physical examination of this patient and reviewed the electronic record. Specifically, on physical examination there is no abdominal tenderness. I have discussed the case with HECTOR Lee. The above note reflects my findings, conclusions, and recommendations. Lb Mcgrath MD
[2017-05-02] MEDS: METOPROLOL TARTRATE 50 MG TAB PO SCH ×2 (09:11→19:56)
[2017-05-02] MEDS: RANITIDINE HCL 150 MG TAB PO SCH ×2 (09:11→19:55)
[2017-05-02 13:24] LABS: HEMATOCRIT 31.5 % (37-47)
[2017-05-02] MEDS: POLYETHYLENE (MIRALAX) 17 GM PACK PO SCH (14:30)
[2017-05-02] MEDS ORDERED: POLYETHYLENE (MIRALAX) 17 GM PACK ONE (14:40)
[2017-05-02 15:00] VITALS: BP 169/82; PULSE 83; TEMP 36.7; O2SAT 99
--- NOTE | 2017-05-02 18:45 | Discharge Instructions ---
Discharge Instructions Date of Service May 02, 2017. Admission Reason for Admission: Lower Gi Bleed Discharge Discharge Diagnosis / Problem: LOWER GI BLEED /POSSIBLE DUE TO HEMORROIDS Discharge Goals Goal(s): Decrease discomfort, Diagnostic testing Activity Recommendations Activity Limitations: resume your previous activity . Instructions / Follow-Up Instructions / Follow-Up HOSPITAL FOLLOW UP ON 05/07/2017 @ 9:[address] Titi Francis MD [facility] LAB WORK : COMPLETE BLOOD COUNT ON 05/07/17 ; REASON : ANEMIA PLEASE CALL YOUR DR'S OFFICE/OR COME TO ER IF IT IS AFTER HOURS - WITH ANY OCCASION OF BLOOD IN STOOL , FEELING OF DIZZY SPELL , LIGHTHEADED OR PALPITATION ( RAPID HEART RATE ) -THESE COULD BE SIGN OF SIGNIFICANT BLEEDING DR CORNELIO MARION -SCHEDULE IS FULL DO NOT TAKE ASPIRIN , IBUPROFEN, NAPROXEN, ALEVE , MOTRIN , ADVIL -AVOID NSAID' S -MAY CAUSE YOU TO HAVE BLEEDING RECOMMEND REFERRAL TO SURGERY FOR EVALUATION OF HEMORRHOIDS PLEASE TAKE STOOL SOFTENER ( OVER THE COUNTER -COLACE /MIRALAX ) TO PREVENT CONSTIPATION WHICH COULD LEAD TO HEMORRHOID BLEED NEW MEDICATION : Iron tab twice daily common to have dark stool while taking Iron supplement should not have any bright red blood per rectum continue to take stool softener /fiber supplement to prevent constipation Current Hospital Diet Patient's current hospital diet: Regular Diet Discharge Diet Recommended Diet: Regular Diet Pending Studies Studies pending at discharge: no Laboratory Results Lipid Panel Test 01/31/17 03:39 Range/Units Triglycerides Level 90 0-150 mg/dl Cholesterol Level 168 0-200 mg/dl HDL Cholesterol 60 mg/dl Cholesterol/HDL Ratio 2.8 LDL Cholesterol, Calculated 90 mg/dl Medical Emergencies . Who to Call and When: Medical Emergencies: If at any time you feel your situation is an emergency, please call 911 immediately. . Non-Emergent Contact Non-Emergency issues call your: Primary Care Provider . . "Provider Documentation" section prepared by Jammie Ghosh. . VTE Core Measure Inpt VTE Proph given/why not?: Contraindicated (LOWER GI BLEED )
--- NOTE | 2017-05-02 18:50 | Progress Note ---
Internal Med Progress Note Date of Service: May 02, 2017. Provider Documentation: SUBJECTIVE: no further episode of GI bleed had one bowel movement today -normal brown color no complain of nausea , abdominal pain tolerating clears well OBJECTIVE: Vital Signs-as noted below Exam: General-comfortable, no sign of distress Eyes-sclera non icteric ENT-NAD Neck- no JVD Lungs-CTA ,no wheeze or rales Heart-regular S1/S2 Abdomen-soft, non tender, active bowel sound Extremities-no lower ext edema, no rash or deformity Neuro-AAO x3, no focal neurological deficit Lab data as noted below. ASSESSMENT & PLAN: LOWER GI BLEED -resolved -presented with painless bright blood per rectum for 2 days normal bowel movement today - possible due to Hemorrhoid - CT abdomen /pelvis -no evidence of diverticulitis , mild scattered diverticulosis - c scope 09/2016 - diverticulosis and internal hemorrhoids - appreciate GI eval -diet advanced to regular -added Fiber supplement /stool softener to prevent constipation -will need out pt surgery eval for treatment for Hemorrhoids ACUTE BLOOD LOSS ANEMIA due to above Hb 12 _> 9 does no have any symptom for dizzy spell or lightheadedness will D/c IVF , no further episode of rectal bleed repeat H&H in AM ATRIAL FIBRILLATION - rate controlled on metoprolol -not on anticoagulation CHRONIC DIASTOLIC CHF - compensated diuretics will be resumed FULL CODE DVT PROPHYLAXIS SCD AND TEDS pharmacological anticoagulation avoided due to lower GI bleed DISPOSITION possible discharge home tomorrow if no further episode of lower GI bleed Medicine follow up with Dr Francis pt will be need out pt Surgery follow up for Hemorrhoids Vital Signs: Date Time Temp Pulse Resp B/P (MAP) Pulse Ox O2 Delivery O2 Flow Rate FiO2 05/02/17 16:00 Room Air 05/02/17 15:00 36.7 83 18 169/82 (111) 99 Room Air 05/02/17 09:00 Room Air 05/02/17 06:58 36.7 85 18 132/74 (93) 95 Nasal Cannula 2.0 05/02/17 00:00 Nasal Cannula 2.0 05/01/17 23:37 36.8 100 20 135/85 (102) 97 Room Air 05/01/17 19:39 36.3 96 20 166/65 97 Room Air 6/27/17 19:04 96 20 166/65 94 Room Air Lab Results: Results Past 24 Hours Test 05/02/17 00:28 05/02/17 06:00 05/02/17 13:06 Range/Units Hemoglobin 9.3 9.2 9.4 12.0-16.0 g/dL Hematocrit 30.2 30.1 31.5 37-47 % White Blood Count 7.86 4.8-10.8 K/uL Red Blood Count 3.54 4.2-5.4 M/uL Mean Corpuscular Volume 85.0 80-100 fL Mean Corpuscular Hemoglobin 26.0 25-34 pg Mean Corpuscular Hemoglobin Concent 30.6 32-36 g/dl Platelet Count 245 130-400 K/uL Mean Platelet Volume 9.1 7.4-10.4 fL Neutrophils (%) (Auto) 57.0 % Lymphocytes (%) (Auto) 31.2 % Monocytes (%) (Auto) 8.5 % Eosinophils (%) (Auto) 2.0 % Basophils (%) (Auto) 0.4 % Neutrophils # (Auto) 4.48 1.4-6.5 K/uL Lymphocytes # (Auto) 2.45 1.2-3.4 K/uL Monocytes # (Auto) 0.67 0.11-0.59 K/uL Eosinophils # (Auto) 0.16 0-0.5 K/uL Basophils # (Auto) 0.03 0-0.2 K/uL RDW Standard Deviation 50.1 36.4-46.3 fL RDW Coefficient of Variation 16.0 11.5-14.5 % Immature Granulocyte % (Auto) 0.9 % Immature Granulocyte # (Auto) 0.07 0.00-0.02 K/uL Microbiology Results 05/02/17 C.difficile Toxin B Gene (PCR) - Final, Complete
[2017-05-02] MEDS ORDERED: ALBUTEROL HFA 8 GM INHALER INH PRN (19:00)
[2017-05-02] MEDS: DOCUSATE SODIUM 100 MG CAP PO SCH (19:56)
[2017-05-02] MEDS: PRAMIPEXOLE DIHYDROCHLORIDE 0.25MG TAB PO SCH ×2 (19:57→22:25)
[2017-05-02] MEDS: TRAZODONE HCL 100 MG TAB PO SCH (20:00)
[2017-05-02] MEDS: LORAZEPAM 1 MG TAB PO PRN (22:25)
[2017-05-02 23:36] VITALS: BP 125/72; PULSE 92; TEMP 36.9; O2SAT 97
[2017-05-03 07:24] VITALS: BP 145/75; PULSE 72; TEMP 36.4; O2SAT 96
[2017-05-03] MEDS: DOCUSATE SODIUM 100 MG CAP PO SCH (08:00)
[2017-05-03] MEDS: POLYETHYLENE (MIRALAX) 17 GM PACK PO SCH (08:00)
[2017-05-03] MEDS: METOPROLOL TARTRATE 50 MG TAB PO SCH (08:00)
[2017-05-03] MEDS ORDERED: TORSEMIDE 20 MG TAB PO SCH (08:00)
[2017-05-03] MEDS: RANITIDINE HCL 150 MG TAB PO SCH (08:00)
[2017-05-03] MEDS ORDERED: SPIRONOLACTONE 25 MG TAB PO SCH (08:00)
--- NOTE | 2017-05-03 09:05 | Gastroenterology Progress Note ---
Progress Note Date of Service: May 03, 2017 Subjective Pt evaluation today including: conversation w/ patient, physical exam, chart review, lab review Pt was seen and evaluated. No acute events over night. Has not had a BM or rectal bleeding since yesterday. HGB 9 this AM. Denies any GI symptoms. She has back pain this morning. This is new. No other concerns. Review of Systems Constitutional: No fever, No chills Respiratory: No cough, No shortness of breath Cardiac: No chest pain Abdomen: No pain, No nausea, No vomiting, No diarrhea, No constipation, No GI bleeding Musculoskeletal: + problem reported (back pain) Medications Current Inpatient Medications Medications (Trade) Dose Ordered Sig/Ameya Route Start Time Stop Time Status Last Admin Dose Admin Miscellaneous (Iv Fluids Completed) 1 ea PRN PRN N/A 05/01/17 19:30 05/01/18 19:29 05/02/17 14:23 1 EA Acetaminophen (Tylenol Tab) 650 mg Q4H PRN PO 05/01/17 20:00 05/31/17 19:59 Lorazepam (Ativan Tab) 1 mg HS PRN PO 05/01/17 20:00 05/31/17 19:59 05/02/17 22:25 1 MG Metoprolol Tartrate (Lopressor Tab) 50 mg BID PO 05/01/17 21:00 05/31/17 20:59 05/03/17 08:00 50 MG Pramipexole Dihydrochloride (miraPEX TAB) 0.125 mg DAILY@2300 PO 05/01/17 23:00 05/31/17 22:59 05/02/17 22:25 0.125 MG Pramipexole Dihydrochloride (miraPEX TAB) 0.25 mg QPM PO 05/01/17 21:00 05/31/17 20:59 05/02/17 19:57 0.25 MG Ranitidine HCl (zANTac TAB) 150 mg BID PO 05/01/17 20:16 05/31/17 20:59 05/02/17 09:11 150 MG Trazodone HCl (Desyrel Tab) 100 mg HS PO 05/01/17 21:00 05/31/17 20:59 05/02/17 20:00 100 MG Ondansetron HCl (Zofran Inj) 4 mg Q6H PRN IV 05/01/17 20:00 05/31/17 19:59 05/02/17 20:00 4 MG Tramadol HCl (Ultram Tab) 25 mg Q6H PRN PO 05/01/17 20:00 05/31/17 19:59 05/02/17 18:41 25 MG Lorazepam (Ativan Inj) 0.5 mg Q4H PRN IV 05/01/17 20:00 05/31/17 19:59 Morphine Sulfate (MoRPHine SULFATE INJ) 4 mg Q3H PRN IV 05/01/17 20:00 05/15/17 19:59 Ioversol (Optiray 320) 111 ml UD PRN IV 05/01/17 21:15 05/05/17 21:14 Lorazepam 0.5 mg/ Syringe 1 ml @ 1 mls/min Q4H PRN IV 05/01/17 23:45 05/31/17 23:44 05/01/17 23:48 1 MLS/MIN Polyethylene (Miralax Powder Packet) 17 gm DAILY PO 05/02/17 14:30 06/01/17 14:29 Docusate Sodium (coLACE CAP) 100 mg BID PO 05/02/17 20:00 06/01/17 19:59 05/03/17 08:00 100 MG Albuterol (Ventolin Hfa Inhaler) 2 puffs QID PRN INH 05/02/17 19:00 06/01/17 18:59 Spironolactone (Aldactone Tab) 25 mg DAILY PO 05/03/17 08:00 06/02/17 07:59 05/03/17 08:00 25 MG Torsemide (Demadex Tab) 20 mg DAILY PO 05/03/17 08:00 06/02/17 07:59 05/03/17 08:00 20 MG Objective Vital Signs Date Time Temp Pulse Resp B/P (MAP) Pulse Ox O2 Delivery O2 Flow Rate FiO2 05/03/17 07:24 36.4 72 20 145/75 (98) 96 05/03/17 00:00 Nasal Cannula 2.0 05/02/17 23:36 36.9 92 20 125/72 (89) 97 CPAP 05/02/17 20:00 Room Air 05/02/17 16:00 Room Air 05/02/17 15:00 36.7 83 18 169/82 (111 99 Room Air Physical Exam General Appearance: no apparent distress Eyes: PERRL ENT: hearing grossly normal Neck: supple Respiratory/Chest: lungs clear Cardiovascular: regular rate, rhythm Abdomen: normal bowel sounds, soft Neurologic/Psych: alert, normal mood/affect, oriented x 3 Laboratory Results Last 24 Hours Test 05/02/17 13:06 05/03/17 06:16 Hemoglobin 9.4 g/dL 9.0 g/dL Hematocrit 31.5 % 29.0 % Assessment and Plan Patient is a 62 year old female with large internal/external hemorrhoids and diverticula with a recent colonoscopy in 09/20 otherwise unremarkable who presented through the ED with painless rectal bleeding x 3 days with clots. C.diff is pending. Rectal bleeding appears to be slowing down - 5 episodes , 2 episodes 05/01/17 and a normal brown stool without any rectal bleeding today 05/02/17. Differentials include hemorrhoid vs diverticular bleed. Monitor stools S/S of GI blood loss Trend H&H (12-->9) Transfuse as needed Diet as tolerated C.Diff not ran as stool was formed Bowel regimen for constipation Miralax 17g daily May hold for loose stools Fiber supplement daily Outpatient surgical evaluation of internal/external hemorrhoids Please call with any questions or concerns. No GI contraindication to d/c if HGB remains stable. GI to sign off. ATTESTATION: I have performed a history and physical examination of this patient and reviewed the electronic record. Specifically, on history there is no further rectal bleeding. I have discussed the case with HECTOR Lee. The above note reflects my findings, conclusions, and recommendations. Lb Mcgrath MD
[2017-05-03] MEDS ORDERED: MRLP17X PO (09:21)
[2017-05-03] MEDS ORDERED: FRRS300 PO (09:21)
[2017-05-03] MEDS ORDERED: PSYL58.636 PO (09:21)
[2017-05-03] MEDS ORDERED: DOCU-94 PO (09:21)
[2017-05-03] MEDS ORDERED: OXYCODONE/ACETAMINOPHEN 5-325 TAB PO PRN (10:00)
[2017-05-03] MEDS ORDERED: NURSING VERBAL MED ORDER ONE (10:00)
[2017-05-03 14:59] VITALS: BP 145/75; PULSE 72; TEMP 36.4; O2SAT 96
--- NOTE | 2017-05-03 17:40 | Progress Note ---
Internal Med Progress Note Date of Service: May 03, 2017. Provider Documentation: SUBJECTIVE: tolerating diet well no blood in stool no abdominal pain or nausea evaluated by GI earlier stable to be discharged home today OBJECTIVE: Vital Signs-as noted below Exam: General-comfortable, no sign of distress Eyes-sclera non icteric ENT-NAD Neck- no JVD Lungs-CTA ,no wheeze or rales Heart-regular S1/S2 Abdomen-soft, non tender, active bowel sound Extremities-no lower ext edema, no rash or deformity Neuro-AAO x3, no focal neurological deficit Lab data as noted below. ASSESSMENT & PLAN: LOWER GI BLEED -resolved -no further bleeding episodes -presented with painless bright blood per rectum for 2 days normal bowel movement today - possible due to Hemorrhoid - CT abdomen /pelvis -no evidence of diverticulitis , mild scattered diverticulosis - c scope 09/2016 - diverticulosis and internal hemorrhoids - appreciate GI eval -diet advanced to regular -added Fiber supplement /stool softener to prevent constipation -will need out pt surgery eval for treatment for Hemorrhoids -stable to be discharged home today ACUTE BLOOD LOSS ANEMIA due to above Hb 12 _> 9 does no have any symptom for dizzy spell or lightheadedness , no further episode of rectal bleed added Fe supplement repeat CBC as out pt ATRIAL FIBRILLATION - rate controlled on metoprolol -not on anticoagulation CHRONIC DIASTOLIC CHF - compensated diuretics resumed FULL CODE DVT PROPHYLAXIS SCD AND TEDS pharmacological anticoagulation avoided due to lower GI bleed DISPOSITION discharge home today Medicine follow up with Dr Francis pt will be need out pt Surgery follow up for Hemorrhoids Vital Signs: Date Time Temp Pulse Resp B/P (MAP) Pulse Ox O2 Delivery O2 Flow Rate FiO2 05/03/17 14:59 36.4 72 20 96 Room Air 05/03/17 08:00 Room Air 05/03/17 07:24 36.4 72 20 145/75 (98) 96 05/03/17 00:00 Nasal Cannula 2.0 05/02/17 23:36 36.9 92 20 125/72 (89) 97 CPAP 05/02/17 20:00 Room Air Lab Results: Results Past 24 Hours Test 05/03/17 06:16 Range/Units Hemoglobin 9.0 12.0-16.0 g/dL Hematocrit 29.0 37-47 %
--- NOTE | 2017-05-03 17:41 | Discharge Summary ---
Discharge Summary Date of Service May 03, 2017. Discharge Summary Admission Date: May 01, 2017 at 19:20 Discharge Date: May 03, 2017 Discharge Disposition: Home Principal Diagnosis: LOWER GI BLEED /POSSIBLE DUE TO HEMORRHOIDS Procedures: CT ABDOMEN /PELVIS IMPRESSION: Mild fatty infiltration of liver. Otherwise negative study status post hysterectomy Consultations: [facility] Medication Reconciliation New Medications: Docusate Sodium (Colace) 100 Mg Cap 1 CAP PO BID for 30 Days, #60 CAP over the counter hold for loose stool Ferrous Sulfate (Ferrous Sulfate) 325 Mg Tab 1 TAB PO BID for 30 Days, #60 TABS 2 Refills Polyethylene (Miralax) 17 Gm Pow 1 TBS PO DAILY for 30 Days over the counter mix with 8 oz of water /juice or preferred beverage Psyllium (Metamucil Fiber) 51.7 % Artur 1 PKT PO DAILY, #30 PKT mix with 8-10 oz of your beveragae of choice daily Continued Medications: Albuterol Hfa (Ventolin Hfa) 200 Puffs/71314 Mcg Aers 2 PUFFS INH QID PRN for SOB/Wheezing Lorazepam (Lorazepam) 1 Mg Tab 1 MG PO HS PRN for Insomnia Metoprolol Tartrate (Lopressor) 50 Mg Tab 50 MG PO BID, TAB Pramipexole (Mirapex) 0.125 Mg Tab 0.25 MG PO QPM, TAB TAKE 2 TABS AT 2100 Pramipexole (Mirapex) 0.125 Mg Tab 0.125 MG PO HS, TAB TAKE 1 TAB AT 2300 Ranitidine (Zantac) 150 Mg Tab 150 MG PO BID, TAB Spironolactone (Spironolactone) 25 Mg Tab 25 MG PO DAILY, #31 Torsemide (Torsemide) 20 Mg Tab 20 MG PO DAILY, #31 Trazodone Hcl (Trazodone) 100 Mg Tab 100 MG PO HS Referrals At Discharge Follow up Referrals: Surgery Referral - Please Call For Appointment with Nikolay Vicente M.D. Admission Information HPI (per Admitting provider): 62 year old female who presents to the ER with rectal bleeding. Patient reports symptoms have been going on for 3 days. She reports bright red bleeding with clots. She has had multiple episodes per day. She denies abdominal pain or pain with the bowel movements. She reports nausea with two episodes of vomiting yesterday. She denies coffee ground emesis or hematemesis. She has chronic exertional shortness of breath which she feels is a little worse than normal. She has felt lightheaded and dizzy with standing and ambulation. She denies any syncopal events. She has chronic palpitations which are unchanged. No chest pain. She denies fever and chills. No urinary symptoms. In the ER, hgb is 10.1 ( 12.3 about 3 months ago). Vitals are stable. Physical Exam (per Admitting): General Appearance: no apparent distress Head: normocephalic Eyes: normal inspection ENT: hearing grossly normal Neck: supple, no JVD Respiratory/Chest: lungs clear, normal breath sounds, no respiratory distress Cardiovascular: regular rate, rhythm, no edema, normal peripheral pulses Abdomen/GI: normal bowel sounds, non tender, soft Extremities/Musculoskelatal: normal inspection, no calf tenderness Neurologic/Psych: no motor/sensory deficits, alert, normal mood/affect, oriented x 3 Skin: normal color, warm/dry Hospital Course LOWER GI BLEED -resolved -no further bleeding episodes -presented with painless bright blood per rectum for 2 days normal bowel movement today - possible due to Hemorrhoid - CT abdomen /pelvis -no evidence of diverticulitis , mild scattered diverticulosis - c scope 09/2016 - diverticulosis and internal hemorrhoids - appreciate GI eval -diet advanced to regular -added Fiber supplement /stool softener to prevent constipation -will need out pt surgery eval for treatment for Hemorrhoids -stable to be discharged home today ACUTE BLOOD LOSS ANEMIA due to above Hb 12 _> 9 does no have any symptom for dizzy spell or lightheadedness , no further episode of rectal bleed added Fe supplement repeat CBC as out pt ATRIAL FIBRILLATION - rate controlled on metoprolol -not on anticoagulation CHRONIC DIASTOLIC CHF - compensated diuretics resumed FULL CODE DVT PROPHYLAXIS SCD AND TEDS pharmacological anticoagulation avoided due to lower GI bleed DISPOSITION discharge home today Medicine follow up with Dr Francis pt will be need out pt Surgery follow up for Hemorrhoids Discharge Instructions DI: Medical v4 Discharge Instructions Date of Service May 02, 2017. Admission Reason for Admission: Lower Gi Bleed Discharge Discharge Diagnosis / Problem: LOWER GI BLEED /POSSIBLE DUE TO HEMORRHOIDS Discharge Goals Goal(s): Decrease discomfort, Diagnostic testing Activity Recommendations Activity Limitations: resume your previous activity . Instructions / Follow-Up Instructions / Follow-Up HOSPITAL FOLLOW UP ON 05/07/2017 @ 9:[address] Titi Francis MD [facility] LAB WORK : COMPLETE BLOOD COUNT ON 05/07/17 ; REASON : ANEMIA PLEASE CALL YOUR DR'S OFFICE/OR COME TO ER IF IT IS AFTER HOURS - WITH ANY OCCASION OF BLOOD IN STOOL , FEELING OF DIZZY SPELL , LIGHTHEADED OR PALPITATION ( RAPID HEART RATE ) -THESE COULD BE SIGN OF SIGNIFICANT BLEEDING DR CORNELIO MARION -SCHEDULE IS FULL DO NOT TAKE ASPIRIN , IBUPROFEN, NAPROXEN, ALEVE , MOTRIN , ADVIL -AVOID NSAID' S -MAY CAUSE YOU TO HAVE BLEEDING RECOMMEND REFERRAL TO SURGERY FOR EVALUATION OF HEMORRHOIDS PLEASE TAKE STOOL SOFTENER ( OVER THE COUNTER -COLACE /MIRALAX ) TO PREVENT CONSTIPATION WHICH COULD LEAD TO HEMORRHOID BLEED NEW MEDICATION : Iron tab twice daily common to have dark stool while taking Iron supplement should not have any bright red blood per rectum continue to take stool softener /fiber supplement to prevent constipation Current Hospital Diet Patient's current hospital diet: Regular Diet Discharge Diet Recommended Diet: Regular Diet Pending Studies Studies pending at discharge: no Laboratory Results Lipid Panel Test 01/31/17 03:39 Range/Units Triglycerides Level 90 0-150 mg/dl Cholesterol Level 168 0-200 mg/dl HDL Cholesterol 60 mg/dl Cholesterol/HDL Ratio 2.8 LDL Cholesterol, Calculated 90 mg/dl Medical Emergencies . Who to Call and When: Medical Emergencies: If at any time you feel your situation is an emergency, please call 911 immediately. . Non-Emergent Contact Non-Emergency issues call your: Primary Care Provider . . "Provider Documentation" section prepared by Jammie Ghosh. . VTE Core Measure Inpt VTE Proph given/why not?: Contraindicated (LOWER GI BLEED ) Additional Copies To Titi Francis M.D.
== END 2017-05-03 15:27 | disposition home or self-care (01) ==
LOC: C.EDB 16:42 → C.4E 19:20 → ENRESERV 19:39
PROVIDERS: ADMIT Internal Medicine; ATTEND Hospitalist
DX: K92.2 Gastrointestinal hemorrhage, unspecified (principal); K76.0 Fatty (change of) liver, not elsewhere classified; I10 Essential (primary) hypertension; I50.30 Unspecified diastolic (congestive) heart failure; I48.91 Unspecified atrial fibrillation; F12.90 Cannabis use, unspecified, uncomplicated; Z88.7 Allergy status to serum and vaccine; Z90.710 Acquired absence of both cervix and uterus; Z90.89 Acquired absence of other organs; Z87.891 Personal history of nicotine dependence; Z83.6 Family history of other diseases of the respiratory system; Z83.3 Family history of diabetes mellitus; Z82.49 Family history of ischemic heart disease and other diseases of the circulatory system; Z80.1 Family history of malignant neoplasm of trachea, bronchus and lung

== ENCOUNTER → 2017-05-07 | Outpatient (CLI) | payer SELFPAY ==
[~2017-05-07] MED LIST changes: +DMD20 PO; +DOCU-94 PO; +FRRS300 PO; -LPR25 PO; -LSX40 PO; +METO-551 PO; +MRLP17X PO; -NRN100 PO; -ONDA4TAB9 PO; -POTA-65 PO; +PSYL58.636 PO; -RANI150T2 PO; +SPR25 PO; +ZNTT/150 PO
[2017-05-07 13:02] LABS: HEMATOCRIT 33.5 % (37-47); MEAN CELL VOLUME 85.2 fL (80-100); MEAN CORPUSCULAR HEMOGLOBIN 25.7 pg (25-34); MEAN CORPUSCULAR HGB CONC 30.1 g/dl (32-36); MEAN PLATELET VOLUME 9.4 fL (7.4-10.4); PLATELET COUNT 379 K/uL (130-400); RED BLOOD COUNT 3.93 M/uL (4.2-5.4); WHITE BLOOD COUNT 8.57 K/uL (4.8-10.8)
== END | disposition home or self-care (01) ==
LOC: C.LAB 12:07
PROVIDERS: ATTEND Hospitalist
DX: D64.9 Anemia, unspecified (principal)

== ENCOUNTER → 2018-06-24 | Outpatient (CLI) | payer OTHER ==
[~2018-06-24] MED LIST changes: -DMD20 PO; -DOCU-94 PO; +GADAVIST IV PRN; +PRAM0.1212 PO; -PRAM0.129 PO; +RANI150T85 PO; +SPIR25TA6 PO; -SPR25 PO; +TORS20TA3 PO; -ZNTT/150 PO
--- NOTE | 2018-06-24 17:29 | DIAGNOSTIC IMAGING REPORT ---
MRA OF THE INTRACRANIAL CIRCULATION WITHOUT CONTRAST CLINICAL HISTORY: Left eye vision loss. COMPARISON STUDY: None. TECHNIQUE: Utilizing a 1.5 Rosita magnet and 3-D [id number] technique, unenhanced MRA of the intracranial circulation was obtained. FINDINGS: The bilateral M1, M2, A1 and A2 segments are patent. No abrupt vessel cut off is identified within the anterior intracranial circulation. No significant stenosis is identified on this exam. There is no abrupt vessel cut off within the posterior circulation. 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 No additional intracranial aneurysms are identified. There is no evidence for dissection within the major intracranial vessels. The MRI of the brain will be reported separately. IMPRESSION: 1. 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 No additional intracranial aneurysms. Neurosurgical consultation is recommended. 2. Otherwise, unremarkable MRA of the intracranial [place]. No abrupt vessel cut off or severe stenosis. Electronically signed by: David Starks M.D. 06/24/2018 5:27 PM Dictated Date/Time: 06/24/2018 5:19 PM
--- NOTE | 2018-06-24 17:34 | DIAGNOSTIC IMAGING REPORT ---
MRI OF THE BRAIN WITHOUT AND WITH IV CONTRAST CLINICAL HISTORY: Left eye vision loss. COMPARISON STUDY: Head CT January 24, 2017. TECHNIQUE: Utilizing a 1.5 Rosita magnet and dedicated coil, multiplanar, multiecho imaging of the brain was performed pre and postcontrast administration. IV administration of 13 mL of Gadavist contrast was uneventful. FINDINGS: There are no foci of restricted diffusion to suggest acute infarct. No acute intracranial hemorrhage, midline shift or mass effect is present. Brain volume is normal. Ventricular system is normal. Basilar cisterns are patent. There are no extra-axial collections. Flow-voids for the major intracranial vessels are present. A 5 mm basilar tip aneurysm is better depicted on the MRA of the head. No intracranial mass or pathologic enhancement is identified. Scattered white matter T2 hyperintense foci suggest mild small vessel disease. Calvarial signal is maintained. IMPRESSION: 1. No acute intracranial findings. 2. No intracranial mass or pathologic enhancement. 3. 5 mm basilar tip aneurysm which is better depicted on the MRA of the head. 4. A few white matter T2 hyperintense foci which suggest mild small vessel disease. Electronically signed by: David Starks M.D. 06/24/2018 5:32 PM Dictated Date/Time: 06/24/2018 5:28 PM
== END | disposition home or self-care (01) ==
LOC: C.MRI 16:06
PROVIDERS: ATTEND Student in an Organized Health Care Education/Training Program
DX: I67.1 Cerebral aneurysm, nonruptured (principal); H54.62 Unqualified visual loss, left eye, normal vision right eye; R51 Headache

== ENCOUNTER 2022-08-08 08:50 | Inpatient (IN) ==
--- NOTE | 2022-08-08 09:20 | Emergency Department Note ---
Impression & Plan Heart failure, diastolic, with acute decompensation, Shortness of breath, Chest pain ED Provider Note NAME: MARLENE GARSIA AGE: 67 SEX: F : 1955 ARRIVES VIA: Walk-In INFORMANT: Patient ED PROVIDER(S): Otoniel Pelaez DO CHIEF COMPLAINT: shortness of breath HPI: Patient is a 67-year-old female with a past medical history of CHF, internal hemorrhoids, nonalcoholic fatty liver presents to the ER who was scheduled to have a colonoscopy and EGD last week but due to poor bowel prep had to redo it this week. They increase the amount of liquids that she was taking. She became significantly short of breath today. She notes she is comfortable at rest but she gets up and moves she becomes significantly short of breath. She denies any headache or change in vision. No chest pain. She has gained 8 pounds in the last 24 hours. No dysuria, urgency, or frequency. No other exacerbating or remitting factors. She admits to worsening lower extremity edema ROS: See above HPI for pertinent positives & negatives. A total of 10 systems reviewed and were otherwise negative. PAST MEDICAL HISTORY:See Below PAST SURGICAL HISTORY:See Below FAMILY HISTORY:See Below SOCIAL HISTORY:See Below HOME MEDICATIONS:See Below ALLERGIES:See Below VITALS:See Below PHYSICAL EXAMINATION: GENERAL: Sitting up in bed, alert, morbidly obese, significant dyspneic with conversation EYE EXAM: normal conjunctiva. OROPHARYNX: mucous membranes are moist LUNGS: Clear to auscultation. Normal chest wall mechanics HEART: no murmurs, S1 normal and S2 normal ABDOMEN: abdomen soft, non-tender, normo-active bowel sounds, no masses, no rebound or guarding. UPPER EXTREMITIES: upper extremities are grossly normal. LOWER EXTREMITIES: +edema NEURO EXAM: Normal sensorium, cranial nerves II-XII grossly intact, normal speech, no gross weakness of arms, no gross weakness of legs. MEDICAL DECISION MAKING: Patient is a 67-year-old female who presents the ER for the boasting complaint. IV was established blood work was obtained. Labs show no significant leukocytosis or anemia. BMP along with LFTs bilirubin was unremarkable. Troponin was negative. Lipase normal. COVID-negative. Triage Nursing notes reviewed. Limited review of prior medical records performed Vital Signs: reviewed and remarkable for no significant abnormalities Differential diagnosis: Differential diagnoses includes but is not limited to pneumonia, bronchitis, COPD/Asthma exacerbation, pneumothorax, pulmonary embolism, congestive heart failure, acute coronary syndrome ER treatment provided: See below Diagnostics interpreted by me: ECG: Sinus rhythm rate of 65 T wave inversion in lead III T wave version V1 through V5 QTC 438 Sinus rhythm rate of 63 Normal axis No PVCs T wave inversion in III T wave inversion in lead V1 through V3 Cardiac Monitoring: An order was placed for continuous cardiac monitoring. The monitor shows a rate of 64 with sinus rhythm. Laboratory studies: As stated above and show below. Imaging studies: Portable AP upright 1 view the chest shows cardiomegaly Consultation(s): Discussed with the hospitalist for further evaluation Procedures: none Critical Care: None Past Med/Surg History Medical History Anxiety Atrial fibrillation dx 2017--intermittent--on metoprolol--follows with Dr. Shipman Brain aneurysm s/p repair (2018) CHF (congestive heart failure) follows with [facility] cardio Depression Dyspnea nebulizer/inhaler daily and prn Fibromyalgia Hiatal hernia History of basal cell carcinoma History of COVID-19 diagnosed 11/2021--mild symptoms, no symptoms now History of migraine Hypertension Morbid obesity with BMI of 45.0-49.9, adult On home oxygen therapy 2L via CPAP at HS Osteoarthritis Restless leg Sleep apnea CPAP with 2L at HS Surgical History Awareness under anesthesia H/O cerebral aneurysm repair 2018 - [facility] - follows [facility] neurosurgery History of basal cell carcinoma (BCC) excision History of benign breast biopsy History of section History of colonoscopy last 2019 @ [facility] History of esophagogastroduodenoscopy (EGD) last 2019 @ [facility] History of exploratory laparotomy History of eyelid surgery History of tonsillectomy History of total abdominal hysterectomy and bilateral salpingo-oophorectomy Slow to wake up after anesthesia Family History Other No family history of adverse response to anesthesia Social History Smoking Status: Former smoker Second Hand Exposure: No; Hx Alcohol Use: No Hx Substance Use: Yes (smokes marijuana (states she no longer has her medical card)) Substance Use Type Other:: medical marijuana Preferred Language: Polish Communication Ability: Effective Business Attorney Required: No Beliefs That Will Affect Care: None Current Living Situation: Spouse Feels Safe at Home: Yes Assistive Devices: CPAP, Glasses, Nebulizer and Oxygen - at Night Allergies Allergies Allergy/AdvReac Type Severity Reaction Status Date / Time sulindac Allergy Intermediate HIVES Verified 08/08/22 08:03 adhesive Allergy Mild "Tape" -- Verified 08/08/22 08:03 blisters cyclobenzaprine Allergy Mild RASH Verified 08/08/22 08:03 acetaminophen [From Tylenol] AdvReac Severe restless Verified 08/08/22 08:03 legs hydrochlorothiazide AdvReac Intermediate COUGH Verified 08/08/22 08:03 triamterene AdvReac Intermediate COUGH Verified 08/08/22 08:03 lisinopril AdvReac Mild Cough Verified 08/08/22 08:03 tetanus toxoid, adsorbed AdvReac Mild IRRITABILIT Verified 08/08/22 08:03 Y Home Meds Home Medications Medication Instructions Recorded Confirmed aspirin 81 mg tablet,delayed 81 mg PO QAM 02/09/19 08/08/22 release fluticasone propionate 50 2 spray intranasal QAM 02/09/19 08/08/22 mcg/actuation nasal spray,suspension (Flonase Allergy Relief) metoprolol tartrate 50 mg tablet 50 mg PO BID 02/09/19 08/08/22 ondansetron HCl 4 mg tablet 4 mg PO DIRECTED PRN Nausea 02/09/19 08/08/22 (Zofran) spironolactone 25 mg tablet 12.5 mg PO BID 02/09/19 08/08/22 torsemide 20 mg tablet 40 mg PO BID 02/09/19 08/08/22 ergocalciferol (vitamin D2) 1,250 1,250 mcg PO MONTHLY 04/30/20 08/08/22 mcg (50,000 unit) capsule (Vitamin D2) losartan 25 mg tablet (Cozaar) 25 mg PO QAM 04/30/20 08/08/22 albuterol sulfate 90 mcg/actuation 2 inh inhalation Q6H PRN Shortness 07/20/22 08/08/22 breath activated powder Of Breath inhaler,sensor atorvastatin 10 mg tablet 10 mg PO QAM 07/20/22 08/08/22 docusate sodium 100 mg capsule 100 mg PO QAM 07/20/22 08/08/22 (Colace) fluticasone fur. 200 mcg-umeclid 1 inh inhalation QAM 07/20/22 08/08/22 62.5 mcg-vilant 25 mcg inhalat.powder (Trelegy Ellipta) gabapentin 100 mg capsule 100 mg PO TID 07/20/22 08/08/22 ipratropium 0.5 mg-albuterol 3 mg 3 ml inhalation TID 07/20/22 08/08/22 (2.5 mg base)/3 mL nebulization soln magnesium 500 mg tablet 500 mg PO HS 07/20/22 08/08/22 meclizine 25 mg tablet 25 mg PO DAILY PRN Dizziness 07/20/22 08/08/22 ropinirole 2 mg tablet 2 mg PO TID 07/20/22 08/08/22 trazodone 100 mg tablet 150 mg PO HS 08/08/22 08/08/22 Results & Data (ED) Vital Signs Vital Signs - 24 hr 08/08/22 09:02 08/08/22 09:08 08/08/22 09:38 Temperature 36.5 C Temperature Source Temporal Artery Scan Pulse Rate 63 62 Pulse Rate from SpO2 Sensor Respiratory Rate 26 H 19 Respiratory Effort / Characteristics Grunting Respiratory Depth Normal Blood Pressure 139/75 Blood Pressure Mean 96 Blood Pressure Position Sitting Pulse Oximetry 98 96 Oxygen Delivery Method Room Air Room Air Room Air Sepsis Recent Fever Within 48 Hours No Sepsis New/Unexplained Change in Mental Status No Sepsis Action Taken by Nursing No Action Required 08/08/22 09:38 08/08/22 10:00 08/08/22 10:00 Temperature Temperature Source Pulse Rate 70 Pulse Rate from SpO2 Sensor 70 Respiratory Rate 21 Respiratory Effort / Characteristics Respiratory Depth Blood Pressure 135/69 Blood Pressure Mean 91 Blood Pressure Position Pulse Oximetry 95 95 Oxygen Delivery Method Room Air Sepsis Recent Fever Within 48 Hours Sepsis New/Unexplained Change in Mental Status Sepsis Action Taken by Nursing 08/08/22 10:30 08/08/22 10:30 Temperature Temperature Source Pulse Rate 63 Pulse Rate from SpO2 Sensor 63 Respiratory Rate 18 Respiratory Effort / Characteristics Respiratory Depth Blood Pressure 136/79 Blood Pressure Mean 98 Blood Pressure Position Pulse Oximetry 97 Oxygen Delivery Method Sepsis Recent Fever Within 48 Hours Sepsis New/Unexplained Change in Mental Status Sepsis Action Taken by Nursing Laboratory Data Result diagrams: 08/08/22 09:15 08/08/22 09:15 Lab Results 08/08/22 08/08/22 08/08/22 Range/Units 09:15 09:15 09:32 WBC 10.63 (4.8-10.8) K/ul RBC 4.22 (3.93-5.22) M/uL Hgb 12.5 (12.0-16.0) g/dl Hct 36.9 (34.1-44.9) % MCV 87.4 (80.0-100.0) fL MCH 29.6 (25.0-34.0) pg MCHC 33.9 (32.0-36.0) g/dL RDW Std Deviation 44.8 (36.4-46.3) fL RDW Coeff of Anurag 14.0 (11.5-14.5) % Plt Count 279 (130-400) K/uL MPV 9.9 (9.4-12.3) fL Immature Gran % (Auto) 0.8 % Neut % (Auto) 73.6 % Lymph % (Auto) 17.5 % [place] % (Auto) 6.4 % Eos % (Auto) 1.1 % Baso % (Auto) 0.6 % Neut # (Auto) 7.82 H (1.4-6.5) K/uL Lymph # (Auto) 1.86 (1.2-3.4) K/uL [place] # (Auto) 0.68 (0.24-0.82) K/uL Eos # (Auto) 0.12 (0-0.50) K/uL Baso # (Auto) 0.06 (0-0.2) K/uL Immature Gran # (Auto) 0.09 H (0.00-0.02) K/uL Sodium 138 (136-145) mmol/L Potassium 3.6 (3.5-5.1) mmol/L Chloride 101 (98-107) mmol/L Carbon Dioxide 29 (21-32) mmol/L Anion Gap 8 (3-11) BUN 15 (6-23) mg/dl Creatinine 1.10 (0.6-1.2) mg/dl Est Cr Clr Drug Dosing 68.0 ml/min Est GFR ( Amer) 60.6 ml/min Est GFR (Non-Af Amer) 52.3 ml/min BUN/Creatinine Ratio 13.6 (10-20) Glucose 87 (70-99(Fasting)) mg/dl Calcium 9.1 (8.5-10.1) mg/dl Total Bilirubin 0.7 (0.2-1.0) mg/dl AST 12 L (13-39) U/L ALT 10 (7-52) U/L Alkaline Phosphatase 107 H (34-104) U/L Troponin I High Sens 2.8 (0-14) pg/ml Total Protein 6.7 (6.0-8.3) gm/dl Albumin 4.1 (3.4-5.0) gm/dl Globulin 2.6 (2.5-4.0) gm/dl Albumin/Globulin Ratio 1.6 (0.9-2) Lipase 13 (11-82) U/L SARS-CoV-2, RNA, NAAT NEGATIVE (NEGATIVE) Administered Medications Ondansetron HCl (Ondansetron Inj 2 Mg/Ml 2 Ml Vial) 4 mg IV Q6H PRN PRN Reason: Nausea Stop: 09/07/22 12:28 Last Admin: 08/08/22 13:02 Dose: 4 mg Documented By: MANISHA Discontinued Medications Aspirin (Aspirin Chew 324 Mg) 324 mg PO NOW STA Stop: 08/08/22 10:37 Last Admin: 08/08/22 10:45 Dose: Not Given Documented By: JANICE Furosemide (Furosemide 40 Mg/4 Ml Vial) 80 mg IV NOW STA Stop: 08/08/22 11:09 Last Admin: 08/08/22 12:08 Dose: Not Given Documented By: JANICE Furosemide (Furosemide 40 Mg/4 Ml Vial) Confirm Administered Dose 80 mg IV .STK- MED ONE Stop: 08/08/22 11:12 Last Admin: 08/08/22 11:18 Dose: 80 mg Documented By: JANICE Metoprolol Tartrate (Metoprolol Tartrate 50 Mg Tab) 50 mg PO NOW STA Stop: 08/08/22 11:18 Last Admin: 08/08/22 12:08 Dose: 50 mg Documented By: JANICE Morphine Sulfate (Morphine Sulfate 4 Mg/Ml 1 Ml Carp\\Vial) 4 mg IV NOW STA Stop: 08/08/22 09:50 Last Admin: 08/08/22 09:56 Dose: 4 mg Documented By: JANICE Morphine Sulfate (Morphine Sulfate 2 Mg/Ml Carp) 2 mg IV NOW STA Stop: 08/08/22 11:19 Last Admin: 08/08/22 12:08 Dose: 2 mg Documented By: JANICE Potassium Chloride (Potassium Chloride Crtab 20 Meq Tabcr) 40 meq PO NOW STA Stop: 08/08/22 11:03 Last Admin: 08/08/22 12:07 Dose: 40 meq Documented By: JANICE Ropinirole HCl (Ropinirole Hcl 2 Mg Tablet) 2 mg PO NOW STA Stop: 08/08/22 11:18 Last Admin: 08/08/22 12:59 Dose: 2 mg Documented By: MANISHA Imaging Data Radiologist's Impression: Chest X-Ray 08/08/22 09:08 XR chest 1V portable HISTORY: Atypical Chest Pain COMPARISON: Chest 01/15/2020. FINDINGS: No pneumothorax. The heart remains mildly enlarged. There is mild pulmonary vascular congestion without overt edema. This is similar to the prior study. No new focal lung consolidations to suggest pneumonia. There is a left shoulder prosthesis. Advanced degenerative changes noted within the right shoulder. Stable blunting left lateral costophrenic sulcus. This may be due to prominent mediastinal fat. IMPRESSION: Mild cardiomegaly with mild central pulmonary vascular congestion without overt edema. This is similar to the prior study ACT 112: Negative or not required by law. Electronically signed by: Guicho Vera M.D. 08/08/2022 9:42 AM Discharge Plan Visit Data Chief Complaint: Cardiac Assessment Stated Complaint: CONGESTIVE HEART FAILURE PRE OP PROBLEMS ED Provider: Otoniel Pelaez Discharge Problem: Heart failure, diastolic, with acute decompensation, Shortness of breath, Chest pain Patient Disposition: Admitted As Inpatient Discharge Instructions Interventions: ED Discharge Assessment Last Done: 08/08/22 12:16
[2022-08-08 09:28] LABS: Basophils # (auto) 0.06 K/uL (0-0.2); Basophils % (auto) 0.6 %; Eosinophils # (auto) 0.12 K/uL (0-0.50); Eosinophils % (auto) 1.1 %; Hematocrit (blood only) 36.9 % (34.1-44.9); Hemoglobin 12.5 g/dl (12.0-16.0); Immature Granulocytes # (auto) 0.09 K/uL (0.00-0.02); Immature Granulocytes % (auto) 0.8 %; Lymphocytes # (auto) 1.86 K/uL (1.2-3.4); Lymphocytes % (auto) 17.5 %; Mean Corpuscular Hemoglobin 29.6 pg (25.0-34.0); Mean Corpuscular Hgb Conc 33.9 g/dL (32.0-36.0); Mean Corpuscular Volume 87.4 fL (80.0-100.0); Mean Platelet Volume 9.9 fL (9.4-12.3); Monocytes # (auto) 0.68 K/uL (0.24-0.82); Monocytes % (auto) 6.4 %; Neutrophils # (auto) 7.82 K/uL (1.4-6.5); Neutrophils % (auto) 73.6 %; Platelet Count 279 K/uL (130-400); RDW Standard Deviation 44.8 fL (36.4-46.3); Red Blood Count 4.22 M/uL (3.93-5.22); White Blood Count 10.63 K/ul (4.8-10.8)
--- NOTE | 2022-08-08 09:44 | XRay Report ---
XR chest 1V portable HISTORY: Atypical Chest Pain COMPARISON: Chest 01/15/2020. FINDINGS: No pneumothorax. The heart remains mildly enlarged. There is mild pulmonary vascular conges tion without overt edema. This is similar to the prior study. No new focal lung consolidations to sug gest pneumonia. There is a left shoulder prosthesis. Advanced degenerative changes noted within the r ight shoulder. Stable blunting left lateral costophrenic sulcus. This may be due to prominent mediast inal fat. IMPRESSION: Mild cardiomegaly with mild central pulmonary vascular congestion without overt edema. This is simila r to the prior study ACT 112: Negative or not required by law. Electronically signed by: Guicho Vera M.D. 08/08/2022 9:42 AM
[2022-08-08] MEDS ORDERED: MoRPHine SULFATE 4 MG/ML 1 ML CARP\\VIAL IV STA (09:49)
[2022-08-08 09:57] LABS: Troponin I High Sensitivity 2.8 pg/ml (0-14)
[2022-08-08 10:16] LABS: Albumin Globulin Ratio 1.6 (0.9-2); Albumin Level 4.1 gm/dl (3.4-5.0); BUN Creatinine Ratio 13.6 (10-20); Bilirubin,Total 0.7 mg/dl (0.2-1.0); Calcium 9.1 mg/dl (8.5-10.1); Est GFR (African American) 60.6 ml/min; Est GFR (Non-African American) 52.3 ml/min; Globulin 2.6 gm/dl (2.5-4.0); Potassium 3.6 mmol/L (3.5-5.1); Total Protein 6.7 gm/dl (6.0-8.3)
[2022-08-08] MEDS ORDERED: ASPIRIN CHEW 324 MG PO STA (10:36)
[2022-08-08] MEDS ORDERED: FUROSEMIDE 40 MG/4 ML VIAL IV STA ×2 (11:02→11:08)
[2022-08-08] MEDS ORDERED: POTASSIUM CHLORIDE CRTAB 20 MEQ TABCR PO STA (11:02)
--- NOTE | 2022-08-08 11:02 | History & Physical Report ---
Date of Service August 08, 2022 Assessment & Plan (1) Heart failure, diastolic, with acute decompensation: (2) Hypertension: (3) Atrial fibrillation: (4) Sleep apnea: Plan This is a 67-year-old female who has significant past medical history of chronic HFpEF, STEFANY on CPAP, PAF, HTN, RLS, hx of DVT, cerebral aneurysm, CKD stage III and iron deficiency who presents to ED secondary to shortness of breath that started at 4 this morning. Pt presents with acute dyspnea, 8lb weight gain, edema, has missed 2 doses of diuretic due to planned colonoscopy, and cxr findings consistent with decompensated CHF. Acute/Chronic HFpEF admit to PCU pt on torsemide 40mg bid - will administer 80mg IV Lasix x 1 now and then start on iv lasix 60 bid. Adjust as per response and labs. place peter cath for strict I & O, remove as soon as able obtain echocardiogram consult cardiology continue metoprolol, aldactone, losartan hold home torsemide place on kcl 40meq bid, monitor bmp daily standing weights PAF pt reports hx of PAF continue metoprolol previously had been on warfarin (but for hx of dvt) [id number] at least 4, ( age, F, HTN, CHF) pt reports bleeding issues which is current reason for colonoscopy monitor close on tele STEFANY Cpap with O2 at HS RLS continue requip Medical marijuana user gummy form Rectal bleeding Iron deficiency pt was to undergo EGD/C scope today, but due to SOB/chf was unable to and was sent to ED hopes to get her optimized, will consult GI to see if they want to still do while inpatient given prep completion DVT ppx: SCDS for now due to reports of rectal bleeding, currently undergoing GI work up, obtain b/l venous Doppler Dispo: PCU FULL CODE PCP: Renetta Shipman Pt was seen and examined in collaboration with Dr. Davis, please see addendum History of Present Illness Chief Complaint: SOB since 0400. Primary Care Provider: Abby Shipman, This is a 67-year-old female who has significant past medical history of chronic HFpEF, STEFANY on CPAP, PAF, HTN, RLS, cerebral aneurysm, CKD stage III and iron deficiency who presents to ED secondary to shortness of breath that started at 4 this morning. At 0400 this morning she developed shortness of breath. She was in her normal state of health up until then. She was getting ready for her colonoscopy this morning and had been doing a prep the past 2 days. She drank a whole gallon of prep plus additional water intake. Typically she tries to limit it to 64 oz. She has been taking her torsemide regularly, but last took them yesterday morning. Her baseline weight is 270. Today she was 278lbs. She admits to gaining 8 lbs in two days. She has been having SOB at rest and with exertion. At baseline she does not have any SOB. She further complains of increased swelling, generalized abd pain. She denies any f/c/s, dizziness, lightheaded, chest pain, cough, n/v, abdominal pain, hemoptysis. She has not taken any medications since yesterday morning. She presented today for colonoscopy due to iron deficiency and due to being SOB her procedure was postponed and she was referred to ED. She also did a c scope prep ~ 1 week ago; however due to prep being inadequate she had to repeat. She is currently undergoing EGD/Cscope due to c/o rectal bleeding and iron deficiency. She does not smoke or use alcohol. She does have a medical marijuana card and uses gummies. In ED patient remained hemodynamically stable and was not hypoxic although was visibly tachypneic. Her CBC and CMP was generally unremarkable. Chest x-ray shows mild cardiomegaly with mild pulmonary vascular congestion. Allergies Allergy/AdvReac Type Severity Reaction Status Date / Time sulindac Allergy Intermediate HIVES Verified 08/08/22 08:03 adhesive Allergy Mild "Tape" -- Verified 08/08/22 08:03 blisters cyclobenzaprine Allergy Mild RASH Verified 08/08/22 08:03 acetaminophen [From Tylenol] AdvReac Severe restless Verified 08/08/22 08:03 legs hydrochlorothiazide AdvReac Intermediate COUGH Verified 08/08/22 08:03 triamterene AdvReac Intermediate COUGH Verified 08/08/22 08:03 lisinopril AdvReac Mild Cough Verified 08/08/22 08:03 tetanus toxoid, adsorbed AdvReac Mild IRRITABILIT Verified 08/08/22 08:03 Y Home Medications Medication Instructions Recorded Confirmed Type aspirin 81 mg tablet,delayed 81 mg PO QAM 02/09/19 08/08/22 History release fluticasone propionate 50 2 spray intranasal QAM 02/09/19 08/08/22 History mcg/actuation nasal spray,suspension (Flonase Allergy Relief) metoprolol tartrate 50 mg tablet 50 mg PO BID 02/09/19 08/08/22 History ondansetron HCl 4 mg tablet 4 mg PO DIRECTED PRN Nausea 02/09/19 08/08/22 History (Zofran) spironolactone 25 mg tablet 12.5 mg PO BID 02/09/19 08/08/22 History torsemide 20 mg tablet 40 mg PO BID 02/09/19 08/08/22 History ergocalciferol (vitamin D2) 1,250 1,250 mcg PO MONTHLY 04/30/20 08/08/22 History mcg (50,000 unit) capsule (Vitamin D2) losartan 25 mg tablet (Cozaar) 25 mg PO QAM 04/30/20 08/08/22 History albuterol sulfate 90 mcg/actuation 2 inh inhalation Q6H PRN Shortness 07/20/22 08/08/22 History breath activated powder Of Breath inhaler,sensor atorvastatin 10 mg tablet 10 mg PO QAM 07/20/22 08/08/22 History docusate sodium 100 mg capsule 100 mg PO QAM 07/20/22 08/08/22 History (Colace) fluticasone fur. 200 mcg-umeclid 1 inh inhalation QAM 07/20/22 08/08/22 History 62.5 mcg-vilant 25 mcg inhalat.powder (Trelegy Ellipta) gabapentin 100 mg capsule 100 mg PO TID 07/20/22 08/08/22 History ipratropium 0.5 mg-albuterol 3 mg 3 ml inhalation TID 07/20/22 08/08/22 History (2.5 mg base)/3 mL nebulization soln magnesium 500 mg tablet 500 mg PO HS 07/20/22 08/08/22 History meclizine 25 mg tablet 25 mg PO DAILY PRN Dizziness 07/20/22 08/08/22 History ropinirole 2 mg tablet 2 mg PO TID 07/20/22 08/08/22 History trazodone 100 mg tablet 150 mg PO HS 08/08/22 08/08/22 History Past Med/Surg History Medical History Anxiety Atrial fibrillation dx 2017--intermittent--on metoprolol--follows with Dr. Shipman Brain aneurysm s/p repair (2018) CHF (congestive heart failure) follows with [facility] cardio Depression Dyspnea nebulizer/inhaler daily and prn Fibromyalgia Hiatal hernia History of basal cell carcinoma History of COVID-19 diagnosed 11/2021--mild symptoms, no symptoms now History of migraine Hypertension Morbid obesity with BMI of 45.0-49.9, adult On home oxygen therapy 2L via CPAP at HS Osteoarthritis Restless leg Sleep apnea CPAP with 2L at HS Surgical History Awareness under anesthesia H/O cerebral aneurysm repair 2018 - [facility] Virgie - follows [facility] neurosurgery History of basal cell carcinoma (BCC) excision History of benign breast biopsy History of section History of colonoscopy last 2019 @ [facility] History of esophagogastroduodenoscopy (EGD) last 2019 @ [facility] History of exploratory laparotomy History of eyelid surgery History of tonsillectomy History of total abdominal hysterectomy and bilateral salpingo-oophorectomy Slow to wake up after anesthesia Family History Other No family history of adverse response to anesthesia Social History Smoking Status: Former smoker Second Hand Exposure: No; Hx Alcohol Use: No Hx Substance Use: Yes (smokes marijuana (states she no longer has her medical card)) Substance Use Type Other:: medical marijuana Preferred Language: Beninese Communication Ability: Effective Inspector Soldering Required: No Beliefs That Will Affect Care: None Current Living Situation: Spouse Feels Safe at Home: Yes Assistive Devices: CPAP, Glasses, Nebulizer and Oxygen - at Night Review of Systems Review of Systems: All systems reviewed & are unremarkable except as noted in HPI & below Physical Exam Physical Exam: please see Dr. Davis addendum for physical exam findings. Results & Data Results & Data ([facility]) Vital Signs (Past 12 Hours) Vital Signs Temp Pulse Resp BP Pulse Ox O2 Del Method 08/08/22 10:30 63 18 97 08/08/22 10:30 136/79 08/08/22 10:00 70 21 95 08/08/22 10:00 135/69 08/08/22 09:38 95 Room Air 08/08/22 09:38 Room Air 08/08/22 09:08 62 19 96 Room Air 08/08/22 09:02 36.5 C 63 26 H 139/75 98 Room Air Diagnostic Findings Chest X-Ray 08/08/22 09:08 XR chest 1V portable HISTORY: Atypical Chest Pain COMPARISON: Chest 01/15/2020. FINDINGS: No pneumothorax. The heart remains mildly enlarged. There is mild pulmonary vascular congestion without overt edema. This is similar to the prior study. No new focal lung consolidations to suggest pneumonia. There is a left shoulder prosthesis. Advanced degenerative changes noted within the right shoulder. Stable blunting left lateral costophrenic sulcus. This may be due to prominent mediastinal fat. IMPRESSION: Mild cardiomegaly with mild central pulmonary vascular congestion without overt edema. This is similar to the prior study ACT 112: Negative or not required by law. Electronically signed by: Guicho Vera M.D. 08/08/2022 9:42 AM Medications Administered Medication List Discontinued Medications Aspirin (Aspirin Chew 324 Mg) 324 mg PO NOW STA Stop: 08/08/22 10:37 Last Admin: 08/08/22 10:45 Dose: Not Given Documented By: JANICE Furosemide (Furosemide 40 Mg/4 Ml Vial) 80 mg IV NOW STA Stop: 08/08/22 11:09 Last Admin: 08/08/22 12:08 Dose: Not Given Documented By: JANICE Furosemide (Furosemide 40 Mg/4 Ml Vial) Confirm Administered Dose 80 mg IV .STK- MED ONE Stop: 08/08/22 11:12 Last Admin: 08/08/22 11:18 Dose: 80 mg Documented By: JANICE Metoprolol Tartrate (Metoprolol Tartrate 50 Mg Tab) 50 mg PO NOW STA Stop: 08/08/22 11:18 Last Admin: 08/08/22 12:08 Dose: 50 mg Documented By: JANICE Morphine Sulfate (Morphine Sulfate 4 Mg/Ml 1 Ml Carp\\Vial) 4 mg IV NOW STA Stop: 08/08/22 09:50 Last Admin: 08/08/22 09:56 Dose: 4 mg Documented By: JANICE Potassium Chloride (Potassium Chloride Crtab 20 Meq Tabcr) 40 meq PO NOW STA Stop: 08/08/22 11:03 Last Admin: 08/08/22 12:07 Dose: 40 meq Documented By: JANICE ECG Rate (beats per minute): 65 Rhythm: normal sinus COVID-19 Results Results COVID-19 Adm Lab Results: RBC 4.22 M/uL (3.93-5.22) 08/08/22 WBC 10.63 K/ul (4.8-10.8) 08/08/22 Hgb 12.5 g/dl (12.0-16.0) 08/08/22 Hct 36.9 % (34.1-44.9) 08/08/22 Plt Count 279 K/uL (130-400) 08/08/22 Neutrophils (%) (Auto) 73.6 % 08/08/22 Lymphocytes (%) (Auto) 17.5 % 08/08/22 Monocytes # (Auto) 0.68 K/uL (0.24-0.82) 08/08/22 Eosinophils # (Auto) 0.12 K/uL (0-0.50) 08/08/22 Immature Granulocyte % (Auto) 0.8 % 08/08/22 Neutrophils # (Auto) 7.82 K/uL (1.4-6.5) H 08/08/22 Lymphocytes # (Auto) 1.86 K/uL (1.2-3.4) 08/08/22 Monocytes # (Auto) 0.68 K/uL (0.24-0.82) 08/08/22 Eosinophils # (Auto) 0.12 K/uL (0-0.50) 08/08/22 Basophils # (Auto) 0.06 K/uL (0-0.2) 08/08/22 Immature Granulocyte # (Auto) 0.09 K/uL (0.00-0.02) H 08/08 Na 138 mmol/L (136-145) 08/08/22 K 3.6 mmol/L (3.5-5.1) 08/08/22 Cl 101 mmol/L (98-107) 08/08/22 CO2 29 mmol/L (21-32) 08/08/22 Anion Gap 8 (3-11) 08/08/22 BUN 15 mg/dl (6-23) 08/08/22 Creatinine 1.10 mg/dl (0.6-1.2) 08/08/22 BUN/Creatinine Ratio 13.6 (10-20) 08/08/22 Glucose Level 87 mg/dl (70-99(Fasting)) 08/08/22 Ca 9.1 mg/dl (8.5-10.1) 08/08/22 Total Bilirubin 0.7 mg/dl (0.2-1.0) 08/08/22 AST/SGOT 12 U/L (13-39) L 08/08/22 ALT/SGPT 10 U/L (7-52) 08/08/22 Alkaline Phosphatase 107 U/L (34-104) H 08/08/22 Total Protein 6.7 gm/dl (6.0-8.3) 08/08/22 Albumin 4.1 gm/dl (3.4-5.0) 08/08/22 Globulin 2.6 gm/dl (2.5-4.0) 08/08/22 Albumin/Globulin Ratio 1.6 (0.9-2) 08/08/22 SARS-CoV-2, RNA, NAAT NEGATIVE (NEGATIVE) 08/08/22 Chest X-Ray 08/08/22 Code Status & VTE Plan Code Status FULL CODE VTE Prophylaxis Plan VTE Prophylaxis will be ordered: Yes Supervising Physician Co-Signing Physician Notes Patient was seen and examined with Melida CHEW at bedside. Chart reviewed. Case discussed with her and agree with the documentation above with regards to HPI and assessment plan. In summary, this is a 67 year old female with h/o diastolic CHF who presented to ED with acute diastolic CHF after bowel prep for colonoscopy. Patient short of breath even at rest in ED. Agree with iv diuresis, daily weight, strict I and Os, echo, tele. Consult GI for colonoscopy here once optimized rather than repeating bowel prep. H/o paroxysmal A fib but not on anticoag due to concern for bleeding issues- states she gets bad rectal bleed when she takes even higher dose of aspirin other than baby aspirin. Cardio eval. Rest as per the note above On exam- General: Sitting in bed, uncomfortable due to dyspnea but not in acute distress, on room air saturating well HEENT: EOMI, JOSE, MMM Chest: Decreased breath sounds bilaterally, no wheezes or crackles appreciated CVS: Regular rate and rhythm, normal heart sounds, no murmur Abdomen: Soft, mild tenderness (chronic per patient), not distended, normal bowel sounds Neuro: Awake, alert, oriented, conversing well, non focal Extremities: No cyanosis, clubbing, mild LE edema Skin: No rash Psych: Calm, cooperative, normal mood.
[2022-08-08] MEDS ORDERED: FUROSEMIDE 40 MG/4 ML VIAL IV ONE (11:11)
[2022-08-08] MEDS ORDERED: rOPINIRole HCL 2 MG TABLET PO STA (11:17)
[2022-08-08] MEDS ORDERED: METOPROLOL TARTRATE 50 MG TAB PO STA (11:17)
[2022-08-08] MEDS ORDERED: MoRPHine SULFATE 2 MG/ML CARP IV STA (11:18)
--- NOTE | 2022-08-08 11:37 | Electrocardiogram Report ---
Test Reason : Blood Pressure : / mmHG Vent. Rate : 063 BPM Atrial Rate : 063 BPM P-R Int : 196 ms QRS Dur : 082 ms QT Int : 436 ms P-R-T Axes : 056 047 022 degrees QTc Int : 446 ms Normal sinus rhythm Low voltage QRS Abnormal ECG When compared with ECG of 18-MAY-2022 16:06, No significant change was found Confirmed by Javi Rivera ([id number]) on 08/08/2022 11:37:15 AM Referred By: Confirmed By:Kimani Rivera
--- NOTE | 2022-08-08 11:38 | Electrocardiogram Report ---
Test Reason : Blood Pressure : / mmHG Vent. Rate : 065 BPM Atrial Rate : 065 BPM P-R Int : 184 ms QRS Dur : 080 ms QT Int : 422 ms P-R-T Axes : 094 037 010 degrees QTc Int : 438 ms Poor data quality, interpretation may be adversely affected Normal sinus rhythm Low voltage QRS Abnormal ECG Confirmed by Javi Rivera ([id number]) on 08/08/2022 11:37:42 AM Referred By: Confirmed By:Kimani Rivera
[2022-08-08] MEDS ORDERED: ACETAMINOPHEN 325 MG TAB PO PRN (12:29)
[2022-08-08] MEDS ORDERED: ALUMINUM/MAGNESIUM SUSP 30 ML UDC PO PRN (12:29)
[2022-08-08] MEDS ORDERED: ONDANSETRON INJ 2 MG/ML 2 ML VIAL IV PRN (12:29)
[2022-08-08] MEDS ORDERED: ALBUTEROL HFA 8 GM INHALER INH PRN (12:49)
--- NOTE | 2022-08-08 16:04 | Cardiology Consultation ---
Date of Consultation August 08, 2022 Assessment & Plan (1) Heart failure, diastolic, with acute decompensation: (2) Shortness of breath: (3) Hypertension: (4) Iron deficiency anemia: History of Present Illness Attending Physician: Yuval Davis MD Allergies Allergy/AdvReac Type Severity Reaction Status Date / Time sulindac Allergy Intermediate HIVES Verified 08/08/22 08:03 adhesive Allergy Mild "Tape" -- Verified 08/08/22 08:03 blisters cyclobenzaprine Allergy Mild RASH Verified 08/08/22 08:03 acetaminophen [From Tylenol] AdvReac Severe restless Verified 08/08/22 08:03 legs hydrochlorothiazide AdvReac Intermediate COUGH Verified 08/08/22 08:03 triamterene AdvReac Intermediate COUGH Verified 08/08/22 08:03 lisinopril AdvReac Mild Cough Verified 08/08/22 08:03 tetanus toxoid, adsorbed AdvReac Mild IRRITABILIT Verified 08/08/22 08:03 Y Home Medications Medication Instructions Recorded Confirmed Type aspirin 81 mg tablet,delayed 81 mg PO QAM 02/09/19 08/08/22 History release fluticasone propionate 50 2 spray intranasal QAM 02/09/19 08/08/22 History mcg/actuation nasal spray,suspension (Flonase Allergy Relief) metoprolol tartrate 50 mg tablet 50 mg PO BID 02/09/19 08/08/22 History ondansetron HCl 4 mg tablet 4 mg PO DIRECTED PRN Nausea 02/09/19 08/08/22 History (Zofran) spironolactone 25 mg tablet 12.5 mg PO BID 02/09/19 08/08/22 History torsemide 20 mg tablet 40 mg PO BID 02/09/19 08/08/22 History ergocalciferol (vitamin D2) 1,250 1,250 mcg PO MONTHLY 04/30/20 08/08/22 History mcg (50,000 unit) capsule (Vitamin D2) losartan 25 mg tablet (Cozaar) 25 mg PO QAM 04/30/20 08/08/22 History albuterol sulfate 90 mcg/actuation 2 inh inhalation Q6H PRN Shortness 07/20/22 08/08/22 History breath activated powder Of Breath inhaler,sensor atorvastatin 10 mg tablet 10 mg PO QAM 07/20/22 08/08/22 History docusate sodium 100 mg capsule 100 mg PO QAM 07/20/22 08/08/22 History (Colace) fluticasone fur. 200 mcg-umeclid 1 inh inhalation QAM 07/20/22 08/08/22 History 62.5 mcg-vilant 25 mcg inhalat.powder (Trelegy Ellipta) gabapentin 100 mg capsule 100 mg PO TID 07/20/22 08/08/22 History ipratropium 0.5 mg-albuterol 3 mg 3 ml inhalation TID 07/20/22 08/08/22 History (2.5 mg base)/3 mL nebulization soln magnesium 500 mg tablet 500 mg PO HS 07/20/22 08/08/22 History meclizine 25 mg tablet 25 mg PO DAILY PRN Dizziness 07/20/22 08/08/22 History ropinirole 2 mg tablet 2 mg PO TID 07/20/22 08/08/22 History trazodone 100 mg tablet 150 mg PO HS 08/08/22 08/08/22 History Patient History Medical History Anxiety Atrial fibrillation dx 2016--intermittent--on metoprolol--follows with Dr. Shipman Brain aneurysm s/p repair (2018) CHF (congestive heart failure) follows with [facility] cardio Depression Dyspnea nebulizer/inhaler daily and prn Fibromyalgia Hiatal hernia History of basal cell carcinoma History of COVID-19 diagnosed 11/2021--mild symptoms, no symptoms now History of migraine Hypertension Morbid obesity with BMI of 45.0-49.9, adult On home oxygen therapy 2L via CPAP at HS Osteoarthritis Restless leg Sleep apnea CPAP with 2L at HS Surgical History Awareness under anesthesia H/O cerebral aneurysm repair 2018 - [facility] Claudia - follows [facility] neurosurgery History of basal cell carcinoma (BCC) excision History of benign breast biopsy History of section History of colonoscopy last 2019 @ [facility] History of esophagogastroduodenoscopy (EGD) last 2019 @ [facility] History of exploratory laparotomy History of eyelid surgery History of tonsillectomy History of total abdominal hysterectomy and bilateral salpingo-oophorectomy Slow to wake up after anesthesia Family History Other No family history of adverse response to anesthesia Social History Smoking Status: Never smoker Second Hand Exposure: No; Hx Alcohol Use: No Hx Substance Use: Yes Last Used Substance: Days (ago) Last Used Substance Other:: 08/06/22 Substance Use Type Other:: medical marijuana Preferred Language: Serbian Communication Ability: Effective Ncqa Specialist Required: No Beliefs That Will Affect Care: None Current Living Situation: Spouse Other Information That Helps Us Care for You: No Feels Safe at Home: Yes Safety Concerns: Feels Safe At This Time Assistive Devices: CPAP, Glasses and Oxygen - at Night Results & Data ([facility]) Vital Signs (Past 12 Hours) Vital Signs Temp Pulse Pulse Resp BP BP Pulse Ox 08/08/22 12:29 36.4 C L 66 22 109/68 93 08/08/22 11:30 63 16 118/78 97 08/08/22 11:01 61 20 97 08/08/22 11:01 113/80 08/08/22 10:30 63 18 97 08/08/22 10:30 136/79 08/08/22 10:00 70 21 95 08/08/22 10:00 135/69 08/08/22 09:38 95 08/08/22 09:38 08/08/22 09:08 62 19 96 08/08/22 09:02 36.5 C 63 26 H 139/75 98 O2 Del Method 08/08/22 12:29 Room Air 08/08/22 11:30 08/08/22 11:01 08/08/22 11:01 08/08/22 10:30 08/08/22 10:30 08/08/22 10:00 08/08/22 10:00 08/08/22 09:38 Room Air 08/08/22 09:38 Room Air 08/08/22 09:08 Room Air 08/08/22 09:02 Room Air
[2022-08-08] MEDS: GABAPENTIN 100 MG CAP PO SCH ×2 (16:12→20:48)
[2022-08-08] MEDS: rOPINIRole HCL 2 MG TABLET PO SCH ×2 (16:13→20:48)
--- NOTE | 2022-08-08 16:13 | Ultrasound Report ---
BILATERAL LOWER EXTREMITY VENOUS DOPPLER HISTORY: Acute pain and swelling of the bilateral lower extremities edema, pain, r/o dvt COMPARISON STUDY: Duplex venous Doppler study 01/30/2017 FINDINGS: There is normal compressibility, flow, and augmentation within the bilateral lower extremit y deep venous systems. IMPRESSION: No DVT within the right or left lower extremity. ACT 112: Negative or not required by law. Electronically signed by: Arnaldo Frye M.D. 08/08/2022 4:11 PM
[2022-08-08 16:38] LABS: Troponin I High Sensitivity 4.3 pg/ml (0-14)
[2022-08-08 16:43] LABS: BUN Creatinine Ratio 10.9 (10-20); Calcium 9.3 mg/dl (8.5-10.1); Creatinine Clr Calc Pharmacy 58.2 ml/min; Est GFR (African American) 50.4 ml/min; Est GFR (Non-African American) 43.5 ml/min; Potassium 4.2 mmol/L (3.5-5.1)
[2022-08-08] MEDS ORDERED: POTASSIUM CHLORIDE CRTAB 20 MEQ TABCR PO SCH (17:00)
[2022-08-08] MEDS ORDERED: FUROSEMIDE 40 MG/4 ML VIAL IV SCH (17:00)
[2022-08-08] MEDS: ONDANSETRON INJ 2 MG/ML 2 ML VIAL IV PRN (17:58)
[2022-08-08] MEDS ORDERED: PROMETHAZINE HCL 12.5 MG in SODIUM CHLORIDE 0.9% 50 ML IV STA (20:38)
[2022-08-08] MEDS: METOPROLOL TARTRATE 50 MG TAB PO SCH (20:48)
[2022-08-08] MEDS: traZODone HCL 50 MG TAB PO SCH (20:48)
[2022-08-08] MEDS: MAGNESIUM OXIDE 400 MG TAB PO SCH (20:49)
[2022-08-09 04:13] LABS: Basophils # (auto) 0.04 K/uL (0-0.2); Basophils % (auto) 0.6 %; Eosinophils # (auto) 0.13 K/uL (0-0.50); Eosinophils % (auto) 1.9 %; Hemoglobin 12.4 g/dl (12.0-16.0); Immature Granulocytes # (auto) 0.07 K/uL (0.00-0.02); Lymphocytes # (auto) 1.55 K/uL (1.2-3.4); Lymphocytes % (auto) 22.7 %; Mean Corpuscular Hemoglobin 29.4 pg (25.0-34.0); Mean Corpuscular Hgb Conc 32.6 g/dL (32.0-36.0); Mean Platelet Volume 9.8 fL (9.4-12.3); Monocytes # (auto) 0.59 K/uL (0.24-0.82); Monocytes % (auto) 8.6 %; Neutrophils # (auto) 4.46 K/uL (1.4-6.5); Neutrophils % (auto) 65.2 %; Platelet Count 254 K/uL (130-400); RDW Coefficient of Variation 14.2 % (11.5-14.5); RDW Standard Deviation 46.5 fL (36.4-46.3); Red Blood Count 4.22 M/uL (3.93-5.22); White Blood Count 6.84 K/ul (4.8-10.8)
[2022-08-09 04:34] LABS: Albumin Globulin Ratio 1.5 (0.9-2); Albumin Level 3.8 gm/dl (3.4-5.0); BUN Creatinine Ratio 13.2 (10-20); Bilirubin,Total 0.6 mg/dl (0.2-1.0); Calcium 8.9 mg/dl (8.5-10.1); Est GFR (Non-African American) 35.4 ml/min; Globulin 2.6 gm/dl (2.5-4.0); Magnesium 2.2 mg/dl (1.7-2.4); Potassium 4.5 mmol/L (3.5-5.1); Total Protein 6.4 gm/dl (6.0-8.3)
--- NOTE | 2022-08-09 06:20 | Gastrointestinal Consultation ---
Date of Consultation August 09, 2022 Assessment & Plan (1) Shortness of breath: 67 year old female admitted with acute heart failure, dyspnea and weight gain. She was prepped for egd/colon which was cancelled yesterday Continue management of acute heart failure Appreciate cardiology evaluation Would continue with a clear liquid diet Will discuss with endoscopy staff regarding clearance for colonoscopy Would keep NPO after midnight to re-evaluate AM Thank you for allowing us to participate in the care of this patient. Please call with any acute changes, questions or concerns. Please see addendum below with additional recommendation from my supervising physician. Supervising Physician Co-Signing Physician Notes I have personally seen and examined the patient with HECTOR Lee. Her note reflects my exam and findings. I agree with her impression and plan. Potential EGD/[place] end of week if remains stable from cardiopulmonary perspective. Tommie Edouard M.D. History of Present Illness Reason for Consultation: anemia Requesting Physician: Ryan Attending Physician: Yuval Davis MD History of Present Illness 67 year old female with HFpEF, STEFANY on CPAP, PAF, HTN, RLS, cerebral aneurysm, CKD stage III and iron deficiency who presents to ED secondary to shortness of breath, admitted w/ acute decompensation of diastolic heart failure. GI asked to evaluate as she was prepping for a colonoscopy. She denies any black/bloody stools at present this AM. No nausea, vomiting. No abd pain today. Today, she is wearing O2 but notes her breathing is slightly improved from last evening. Allergies Allergy/AdvReac Type Severity Reaction Status Date / Time sulindac Allergy Intermediate HIVES Verified 08/08/22 08:03 adhesive Allergy Mild "Tape" -- Verified 08/08/22 08:03 blisters cyclobenzaprine Allergy Mild RASH Verified 08/08/22 08:03 acetaminophen [From Tylenol] AdvReac Severe restless Verified 08/08/22 08:03 legs hydrochlorothiazide AdvReac Intermediate COUGH Verified 08/08/22 08:03 triamterene AdvReac Intermediate COUGH Verified 08/08/22 08:03 lisinopril AdvReac Mild Cough Verified 08/08/22 08:03 tetanus toxoid, adsorbed AdvReac Mild IRRITABILIT Verified 08/08/22 08:03 Y Home Medications Medication Instructions Recorded Confirmed Type aspirin 81 mg tablet,delayed 81 mg PO QAM 02/09/19 08/08/22 History release fluticasone propionate 50 2 spray intranasal QAM 02/09/19 08/08/22 History mcg/actuation nasal spray,suspension (Flonase Allergy Relief) metoprolol tartrate 50 mg tablet 50 mg PO BID 02/09/19 08/08/22 History ondansetron HCl 4 mg tablet 4 mg PO DIRECTED PRN Nausea 02/09/19 08/08/22 History (Zofran) spironolactone 25 mg tablet 12.5 mg PO BID 02/09/19 08/08/22 History torsemide 20 mg tablet 40 mg PO BID 02/09/19 08/08/22 History ergocalciferol (vitamin D2) 1,250 1,250 mcg PO MONTHLY 04/30/20 08/08/22 History mcg (50,000 unit) capsule (Vitamin D2) losartan 25 mg tablet (Cozaar) 25 mg PO QAM 04/30/20 08/08/22 History albuterol sulfate 90 mcg/actuation 2 inh inhalation Q6H PRN Shortness 07/20/22 08/08/22 History breath activated powder Of Breath inhaler,sensor atorvastatin 10 mg tablet 10 mg PO QAM 07/20/22 08/08/22 History docusate sodium 100 mg capsule 100 mg PO QAM 07/20/22 08/08/22 History (Colace) fluticasone fur. 200 mcg-umeclid 1 inh inhalation QAM 07/20/22 08/08/22 History 62.5 mcg-vilant 25 mcg inhalat.powder (Trelegy Ellipta) gabapentin 100 mg capsule 100 mg PO TID 07/20/22 08/08/22 History ipratropium 0.5 mg-albuterol 3 mg 3 ml inhalation TID 07/20/22 08/08/22 History (2.5 mg base)/3 mL nebulization soln magnesium 500 mg tablet 500 mg PO HS 07/20/22 08/08/22 History meclizine 25 mg tablet 25 mg PO DAILY PRN Dizziness 07/20/22 08/08/22 History ropinirole 2 mg tablet 2 mg PO TID 07/20/22 08/08/22 History trazodone 100 mg tablet 150 mg PO HS 08/08/22 08/08/22 History Patient History Medical History Anxiety Atrial fibrillation dx 2017--intermittent--on metoprolol--follows with Dr. Shipman Brain aneurysm s/p repair (2018) CHF (congestive heart failure) follows with [facility] cardio Depression Dyspnea nebulizer/inhaler daily and prn Fibromyalgia Hiatal hernia History of basal cell carcinoma History of COVID-19 diagnosed 11/2021--mild symptoms, no symptoms now History of migraine Hypertension Morbid obesity with BMI of 45.0-49.9, adult On home oxygen therapy 2L via CPAP at HS Osteoarthritis Restless leg Sleep apnea CPAP with 2L at HS Surgical History Awareness under anesthesia H/O cerebral aneurysm repair 2018 - [place] - follows [facility] History of basal cell carcinoma (BCC) excision History of benign breast biopsy History of section History of colonoscopy last 2019 @ [facility] History of esophagogastroduodenoscopy (EGD) last 2019 @ [facility] History of exploratory laparotomy History of eyelid surgery History of tonsillectomy History of total abdominal hysterectomy and bilateral salpingo-oophorectomy Slow to wake up after anesthesia Family History Other No family history of adverse response to anesthesia Social History Smoking Status: Never smoker Second Hand Exposure: No; Hx Alcohol Use: No Hx Substance Use: Yes Last Used Substance: Days (ago) Last Used Substance Other:: 08/06/22 Substance Use Type Other:: medical marijuana Preferred Language: [place] Communication Ability: Effective 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 Funeral Director Required: No Beliefs That Will Affect Care: None Current Living Situation: Spouse Other Information That Helps Us Care for You: No Feels Safe at Home: Yes Safety Concerns: Feels Safe At This Time Assistive Devices: CPAP and Oxygen - at Night Review of Systems Review of Systems: All systems reviewed & are unremarkable except as noted in HPI & below Physical Exam Constitutional: WD/WN, vitals as above Neck: trachea midline, no thyromegaly Respiratory: normal respiratory effort Gastrointestinal (Abdomen): Inspection/Auscultation: abdomen normal to inspection; abdomen not distended Percussion/Palpation: abdomen soft; abdomen nontender, no guarding and abdomen not rigid Skin: no rashes, warm and dry Results & Data ([facility]) Vital Signs (Past 12 Hours) Vital Signs Temp Pulse Pulse Resp BP Pulse Ox O2 Del Method 08/09/22 03:00 36.6 C 63 16 98/62 L 93 Nasal Cannula 08/08/22 21:15 71 17 95 08/08/22 22:41 36.5 C 68 18 117/67 94 Nasal Cannula 08/08/22 20:00 Room Air 08/08/22 19:00 36.5 C 74 20 141/76 H 92 Room Air O2 Flow Rate 08/09/22 03:00 2 08/08/22 21:15 2 08/08/22 22:41 2 08/08/22 20:00 08/08/22 19:00 Laboratory Results 08/09/22 08/09/22 08/09/22 Range/Units 03:35 03:35 03:35 WBC 6.84 (4.8-10.8) K/ul RBC 4.22 (3.93-5.22) M/uL Hgb 12.4 (12.0-16.0) g/dl Hct 38.0 (34.1-44.9) % MCV 90.0 (80.0-100.0) fL MCH 29.4 (25.0-34.0) pg MCHC 32.6 (32.0-36.0) g/dL RDW Std Deviation 46.5 H (36.4-46.3) fL RDW Coeff of Anurag 14.2 (11.5-14.5) % Plt Count 254 (130-400) K/uL MPV 9.8 (9.4-12.3) fL Immature Gran % (Auto) 1.0 % Neut % (Auto) 65.2 % Lymph % (Auto) 22.7 % [place] % (Auto) 8.6 % Eos % (Auto) 1.9 % Baso % (Auto) 0.6 % Neut # (Auto) 4.46 (1.4-6.5) K/uL Lymph # (Auto) 1.55 (1.2-3.4) K/uL [place] # (Auto) 0.59 (0.24-0.82) K/uL Eos # (Auto) 0.13 (0-0.50) K/uL Baso # (Auto) 0.04 (0-0.2) K/uL Immature Gran # (Auto) 0.07 H (0.00-0.02) K/uL Sodium 139 (136-145) mmol/L Potassium 4.5 (3.5-5.1) mmol/L Chloride 103 (98-107) mmol/L Carbon Dioxide 29 (21-32) mmol/L Anion Gap 7 (3-11) BUN 20 (6-23) mg/dl Creatinine 1.52 H (0.6-1.2) mg/dl Est Cr Clr Drug Dosing 49.0 ml/min Est GFR ( Amer) 41.0 ml/min Est GFR (Non-Af Amer) 35.4 ml/min BUN/Creatinine Ratio 13.2 (10-20) Glucose 89 (70-99(Fasting)) mg/dl Calcium 8.9 (8.5-10.1) mg/dl Magnesium 2.2 (1.7-2.4) mg/dl Total Bilirubin 0.6 (0.2-1.0) mg/dl AST 13 (13-39) U/L ALT 9 (7-52) U/L Alkaline Phosphatase 102 (34-104) U/L Troponin I High Sens 4.1 (0-14) pg/ml B-Natriuretic Peptide (0-100) pg/ml Total Protein 6.4 (6.0-8.3) gm/dl Albumin 3.8 (3.4-5.0) gm/dl Globulin 2.6 (2.5-4.0) gm/dl Albumin/Globulin Ratio 1.5 (0.9-2) Lipase (11-82) U/L SARS-CoV-2, RNA, NAAT (NEGATIVE) 08/08/22 08/08/22 08/08/22 Range/Units 21:04 15:14 12:29 WBC (4.8-10.8) K/ul RBC (3.93-5.22) M/uL Hgb (12.0-16.0) g/dl Hct (34.1-44.9) % MCV (80.0-100.0) fL MCH (25.0-34.0) pg MCHC (32.0-36.0) g/dL RDW Std Deviation (36.4-46.3) fL RDW Coeff of Anurag (11.5-14.5) % Plt Count (130-400) K/uL MPV (9.4-12.3) fL Immature Gran % (Auto) % Neut % (Auto) % Lymph % (Auto) % [place] % (Auto) % Eos % (Auto) % Baso % (Auto) % Neut # (Auto) (1.4-6.5) K/uL Lymph # (Auto) (1.2-3.4) K/uL [place] # (Auto) (0.24-0.82) K/uL Eos # (Auto) (0-0.50) K/uL Baso # (Auto) (0-0.2) K/uL Immature Gran # (Auto) (0.00-0.02) K/uL Sodium 141 (136-145) mmol/L Potassium 4.2 (3.5-5.1) mmol/L Chloride 103 (98-107) mmol/L Carbon Dioxide 29 (21-32) mmol/L Anion Gap 9 (3-11) BUN 14 (6-23) mg/dl Creatinine 1.28 H (0.6-1.2) mg/dl Est Cr Clr Drug Dosing 58.2 ml/min Est GFR ( Amer) 50.4 ml/min Est GFR (Non-Af Amer) 43.5 ml/min BUN/Creatinine Ratio 10.9 (10-20) Glucose 78 (70-99(Fasting)) mg/dl Calcium 9.3 (8.5-10.1) mg/dl Magnesium 2.0 (1.7-2.4) mg/dl Total Bilirubin (0.2-1.0) mg/dl AST (13-39) U/L ALT (7-52) U/L Alkaline Phosphatase (34-104) U/L Troponin I High Sens 4.5 4.3 (0-14) pg/ml B-Natriuretic Peptide 24 (0-100) pg/ml Total Protein (6.0-8.3) gm/dl Albumin (3.4-5.0) gm/dl Globulin (2.5-4.0) gm/dl Albumin/Globulin Ratio (0.9-2) Lipase (11-82) U/L SARS-CoV-2, RNA, NAAT (NEGATIVE) 08/08/22 08/08/22 08/08/22 Range/Units 12:29 09:32 09:15 WBC (4.8-10.8) K/ul RBC (3.93-5.22) M/uL Hgb (12.0-16.0) g/dl Hct (34.1-44.9) % MCV (80.0-100.0) fL MCH (25.0-34.0) pg MCHC (32.0-36.0) g/dL RDW Std Deviation (36.4-46.3) fL RDW Coeff of Anurag (11.5-14.5) % Plt Count (130-400) K/uL MPV (9.4-12.3) fL Immature Gran % (Auto) % Neut % (Auto) % Lymph % (Auto) % [place] % (Auto) % Eos % (Auto) % Baso % (Auto) % Neut # (Auto) (1.4-6.5) K/uL Lymph # (Auto) (1.2-3.4) K/uL [place] # (Auto) (0.24-0.82) K/uL Eos # (Auto) (0-0.50) K/uL Baso # (Auto) (0-0.2) K/uL Immature Gran # (Auto) (0.00-0.02) K/uL Sodium 138 (136-145) mmol/L Potassium 3.6 (3.5-5.1) mmol/L Chloride 101 (98-107) mmol/L Carbon Dioxide 29 (21-32) mmol/L Anion Gap 8 (3-11) BUN 15 (6-23) mg/dl Creatinine 1.10 (0.6-1.2) mg/dl Est Cr Clr Drug Dosing 68.0 ml/min Est GFR ( Amer) 60.6 ml/min Est GFR (Non-Af Amer) 52.3 ml/min BUN/Creatinine Ratio 13.6 (10-20) Glucose 87 (70-99(Fasting)) mg/dl Calcium 9.1 (8.5-10.1) mg/dl Magnesium 1.9 (1.7-2.4) mg/dl Total Bilirubin 0.7 (0.2-1.0) mg/dl AST 12 L (13-39) U/L ALT 10 (7-52) U/L Alkaline Phosphatase 107 H (34-104) U/L Troponin I High Sens 2.8 (0-14) pg/ml B-Natriuretic Peptide (0-100) pg/ml Total Protein 6.7 (6.0-8.3) gm/dl Albumin 4.1 (3.4-5.0) gm/dl Globulin 2.6 (2.5-4.0) gm/dl Albumin/Globulin Ratio 1.6 (0.9-2) Lipase 13 (11-82) U/L SARS-CoV-2, RNA, NAAT NEGATIVE (NEGATIVE) 08/08/22 Range/Units 09:15 WBC 10.63 (4.8-10.8) K/ul RBC 4.22 (3.93-5.22) M/uL Hgb 12.5 (12.0-16.0) g/dl Hct 36.9 (34.1-44.9) % MCV 87.4 (80.0-100.0) fL MCH 29.6 (25.0-34.0) pg MCHC 33.9 (32.0-36.0) g/dL RDW Std Deviation 44.8 (36.4-46.3) fL RDW Coeff of Anurag 14.0 (11.5-14.5) % Plt Count 279 (130-400) K/uL MPV 9.9 (9.4-12.3) fL Immature Gran % (Auto) 0.8 % Neut % (Auto) 73.6 % Lymph % (Auto) 17.5 % [place] % (Auto) 6.4 % Eos % (Auto) 1.1 % Baso % (Auto) 0.6 % Neut # (Auto) 7.82 H (1.4-6.5) K/uL Lymph # (Auto) 1.86 (1.2-3.4) K/uL [place] # (Auto) 0.68 (0.24-0.82) K/uL Eos # (Auto) 0.12 (0-0.50) K/uL Baso # (Auto) 0.06 (0-0.2) K/uL Immature Gran # (Auto) 0.09 H (0.00-0.02) K/uL Sodium (136-145) mmol/L Potassium (3.5-5.1) mmol/L Chloride (98-107) mmol/L Carbon Dioxide (21-32) mmol/L Anion Gap (3-11) BUN (6-23) mg/dl Creatinine (0.6-1.2) mg/dl Est Cr Clr Drug Dosing ml/min Est GFR ( Amer) ml/min Est GFR (Non-Af Amer) ml/min BUN/Creatinine Ratio (10-20) Glucose (70-99(Fasting)) mg/dl Calcium (8.5-10.1) mg/dl Magnesium (1.7-2.4) mg/dl Total Bilirubin (0.2-1.0) mg/dl AST (13-39) U/L ALT (7-52) U/L Alkaline Phosphatase (34-104) U/L Troponin I High Sens (0-14) pg/ml B-Natriuretic Peptide (0-100) pg/ml Total Protein (6.0-8.3) gm/dl Albumin (3.4-5.0) gm/dl Globulin (2.5-4.0) gm/dl Albumin/Globulin Ratio (0.9-2) Lipase (11-82) U/L SARS-CoV-2, RNA, NAAT (NEGATIVE)
[2022-08-09] MEDS: ASPIRIN 81 MG ECTAB PO SCH (08:26)
[2022-08-09] MEDS: rOPINIRole HCL 2 MG TABLET PO SCH ×3 (08:26→22:10)
[2022-08-09] MEDS: FLUTICASONE PROPIONATE NA SPR 16 GM BTL SCH (08:26)
[2022-08-09] MEDS: GABAPENTIN 100 MG CAP PO SCH ×3 (08:26→22:09)
[2022-08-09] MEDS: ATORVASTATIN 10 MG TAB PO SCH (08:26)
[2022-08-09] MEDS: METOPROLOL TARTRATE 50 MG TAB PO SCH ×2 (08:27→22:09)
[2022-08-09] MEDS: POTASSIUM CHLORIDE CRTAB 20 MEQ TABCR PO SCH (08:28)
--- NOTE | 2022-08-09 08:32 | Cardiology Progress Note ---
Date of Service August 09, 2022 Assessment & Plan (1) Heart failure, diastolic, with acute decompensation: (2) Shortness of breath: Plan: Acute on chronic diastolic CHF in the setting of colonoscopy prep and 2 missed doses of Torsemide. Patient diuresed almost 4L over night and is down about 9.5 lbs. Slight decline in renal function overnight- patient appears euvolemic on exam, most likely hypovolemic. -Hold IV Lasix today -Repeat BMP tomorrow morning -Will plan on restarting home dose of Torsemide tomorrow. (3) Hypertension: Plan: Low blood pressures during this admission- possibly now due to hypovolemia. Patient asymptomatic. Holding Lasix today as stated above. -Will hold losartan today due to renal decline and low BP- will restart when clinically appropriate. -Continue to hold Aldactone at this time- will reassess restarting pending clinical course. (4) Iron deficiency anemia: Plan: Will defer to GI regarding possible scope inpatient- agree with plan to avoid a redo prep resulting in acute/recurrent HFpEF. Patient to remain on clear liquid diet with NPO tomorrow morning per GI. (5) Sinus bradycardia: (6) Paroxysmal atrial fibrillation: Plan: Patient/Chart history of PAF. PAF, CHADSVASC 4, (age, female, HTN, CHF)- previously on warfarin (for DVT). No known recurrence of atrial fib. -Sinus Raúl on monitor, asymptomatic- okay to continue metoprolol tartrate, recommend continued monitoring on Tele. -Recommend a potassium goal of 4.0 and mag of 2.0 replace as necessary. Plan Case discussed with Dr. Bernal- will follow. Admission and Anticipated Discharge Date Admission Date: August 08, 2022 Supervising Physician Co-Signing Physician Notes I have personally seen and examined the patient with HECTOR Hayes. Her note reflects my exam and findings. I agree with her impression and plan. Acute decompensated diastolic heart failure in the setting of bowel prep for colonoscopy. Diuresed well. Now slightly hypovolemic with prerenal hyponatremia. For GI workup in AM. Subjective 67-year-old female initially presenting to the emergency department due to concerns regarding shortness of breath. Patient has a known history of chronic diastolic CHF. Leading up to this event she was prepping for her colonoscopy that was scheduled for 10/4. Testing was scheduled due to rectal bleeding and iron deficiency anemia. She had to do a 2-day bowel prep. She drank an entire gallon of bowel prep plus additional water intake. Baseline weight approximately 270 pounds, weight admission was 278. She did miss 2 doses of her diuretic. Chest x-ray 08/08: Mild cardiomegaly with mild central pulmonary vascular congestion without overt edema Labs: Declining renal function with a creatinine of 1.52, previously 1.2 EKG 08/09: Sinus rhythm, 67 bpm Echo 08/08: LVEF 65 to 70% with no wall motion abnormalities. Grade 1 diastolic dysfunction. No significant valvular pathology. Patient normally maintained on 40 mg of torsemide twice daily, 80 mg of IV Lasix was given in the ED and she was started on 60 mg of IV Lasix twice daily. She was evaluated by GI: Recommending continuation of clear liquid diet and n.p.o. at midnight for possible colonoscopy in the morning. 08/09: Upon entrance into the room patient resting comfortably in bed without acute concern. Denies any exertional chest pain, shortness of breath has resolved. Patient able to lay flat in bed with a very slight incline, improvement compared to 90 degrees when she was admitted. No orthopnea. No lower extremity edema, states "I have never seen my legs looks this good". No palpitations, dizziness, or syncope. Main concern regarding RUQ pain that relieves with pressing down. Telemetry: SR 50-60 Weight: 128.6>>124.4 kg I&O: -3.8L Past medical history: Chronic diastolic heart failure STEFANY on CPAP with 2L O2 at night PAF, CHADSVASC 4, (age, female, HTN, CHF)- previously on warfarin Hypertension Restless leg syndrome- on requip History of DVT History of cerebral aneurysm, CKD stage III Iron deficiency anemia Review of Systems Review of Systems: All systems reviewed & are unremarkable except as noted in HPI & below Physical Exam Constitutional: well developed, well nourished and + obese; no acute distress Eyes: PERRL, conjunctivae normal, anicteric sclerae Neck: normal visual inspection and trachea midline Respiratory: normal respiratory effort, lungs clear to auscultation Auscultation: + diminished lung sounds; no rales, no rhonchi and no wheezes Cardiovascular: RRR, no murmur, no edema Rate/Rhythm: regular rate and regular rhythm Heart Sounds: normal S1 and normal S2; no murmur Vessels: normal peripheral pulses; no JVD and no carotid bruit Extremities: + varicosities (BL lower extremity ); no edema Gastrointestinal (Abdomen): Percussion/Palpation: + abdomen tender (RUQ) and abdomen soft Skin: no rashes, warm and dry Psychiatric: A+Ox3, euthymic affect Results & Data ([facility]) Vital Signs (Past 12 Hours) Vital Signs Temp Pulse Pulse Resp BP Pulse Ox O2 Del Method 08/09/22 07:28 36.4 C L 57 L 20 93/61 L 91 Room Air 08/09/22 03:00 36.6 C 63 16 98/62 L 93 Nasal Cannula 08/08/22 21:15 71 17 95 08/08/22 22:41 36.5 C 68 18 117/67 94 Nasal Cannula O2 Flow Rate 08/09/22 07:28 08/09/22 03:00 2 08/08/22 21:15 2 08/08/22 22:41 2 Laboratory Results Cardiac Enzymes 08/08/22 08/08/22 08/08/22 Range/Units 09:15 12:29 15:14 AST 12 L (13-39) U/L Troponin I High Sens 2.8 4.3 (0-14) pg/ml B-Natriuretic Peptide 24 (0-100) pg/ml 08/08/22 08/09/22 08/09/22 Range/Units 21:04 03:35 03:35 AST 13 (13-39) U/L Troponin I High Sens 4.5 4.1 (0-14) pg/ml B-Natriuretic Peptide (0-100) pg/ml Coagulation 08/08/22 Range/Units 12:29 B-Natriuretic Peptide 24 (0-100) pg/ml CBC 08/09/22 Range/Units 03:35 WBC 6.84 (4.8-10.8) K/ul RBC 4.22 (3.93-5.22) M/uL Hgb 12.4 (12.0-16.0) g/dl Hct 38.0 (34.1-44.9) % Plt Count 254 (130-400) K/uL Neut # (Auto) 4.46 (1.4-6.5) K/uL Lymph # (Auto) 1.55 (1.2-3.4) K/uL [place] # (Auto) 0.59 (0.24-0.82) K/uL Eos # (Auto) 0.13 (0-0.50) K/uL Baso # (Auto) 0.04 (0-0.2) K/uL Comprehensive Metabolic Panel 08/08/22 08/08/22 08/09/22 Range/Units 09:15 15:14 03:35 Sodium 138 141 139 (136-145) mmol/L Potassium 3.6 4.2 4.5 (3.5-5.1) mmol/L Chloride 101 103 103 (98-107) mmol/L Carbon Dioxide 29 29 29 (21-32) mmol/L BUN 15 14 20 (6-23) mg/dl Creatinine 1.10 1.28 H 1.52 H (0.6-1.2) mg/dl Glucose 87 78 89 (70-99(Fasting)) mg/dl Calcium 9.1 9.3 8.9 (8.5-10.1) mg/dl AST 12 L 13 (13-39) U/L ALT 10 9 (7-52) U/L Alkaline Phosphatase 107 H 102 (34-104) U/L Total Protein 6.7 6.4 (6.0-8.3) gm/dl Albumin 4.1 3.8 (3.4-5.0) gm/dl Intake and Output 08/08/22 08/09/22 08/09/22 22:59 06:59 14:59 Intake Total 325.5 / 725.5 200 / 725.5 Output Total 2350 / 4550 600 / 4550 Balance -2024.5 / -3824.5 -400 / -3824.5 Intake: IV 50.5 / 50.5 Promethazine HCl 12.5 mg In 50.5 / 50.5 Sodium Chloride 0.9% 50 ml @ 202 mls/hr IV NOW STA Rx#: [id number] Oral 275 / 675 200 / 675 Output: Urine Amount (Catheter) 2350 / 4550 600 / 4550 Escobar/Indwelling 2350 / 4550 600 / 4550 Other: Weight 124.4 kg Weight Measurement Method Built in [facility]
--- NOTE | 2022-08-09 08:41 | Electrocardiogram Report ---
Test Reason : Blood Pressure : / mmHG Vent. Rate : 067 BPM Atrial Rate : 067 BPM P-R Int : 178 ms QRS Dur : 076 ms QT Int : 394 ms P-R-T Axes : -49 052 028 degrees QTc Int : 416 ms Sinus rhythm Low voltage QRS Nonspecific T wave abnormality Confirmed by Javi Rivera ([id number]) on 08/09/2022 8:41:11 AM Referred By: REFERRED SELF Confirmed By:Kimani Rivera
--- NOTE | 2022-08-09 08:47 | Electrocardiogram Report ---
Test Reason : Blood Pressure : / mmHG Vent. Rate : 064 BPM Atrial Rate : 064 BPM P-R Int : 174 ms QRS Dur : 078 ms QT Int : 434 ms P-R-T Axes : -12 050 024 degrees QTc Int : 447 ms Normal sinus rhythm Low voltage QRS When compared with ECG of 08-AUG-2022 17:10, (unconfirmed) Sinus rhythm has replaced Ectopic atrial rhythm Confirmed by Javi Rivera ([id number]) on 08/09/2022 8:46:48 AM Referred By: REFERRED SELF Confirmed By:Kimani Rivera
[2022-08-09] MEDS ORDERED: LOSARTAN POTASSIUM 25 MG TAB PO SCH (09:00)
[2022-08-09] MEDS ORDERED: NON-FORMULARY MEDICATION (Fluticasone-Umeclidin-Vilanter [Trelegy Ellipta] 200-62.5-25 mcg INH SCH (09:00)
[2022-08-09] MEDS ORDERED: SPIRONOLACTONE 12.5 MG TAB PO SCH (09:00)
[2022-08-09] MEDS: ONDANSETRON INJ 2 MG/ML 2 ML VIAL IV PRN (09:02)
[2022-08-09] MEDS: FLUTICASONE FUROATE 200MCG 14 PUFFS/INHALER INH SCH (10:07)
[2022-08-09] MEDS: UMECLIDINIUM/VILANTEROL 62.5/25MCG 7 PUFFS/INHALER INH SCH (11:50)
[2022-08-09] MEDS: PROMETHAZINE HCL 12.5 MG in SODIUM CHLORIDE 0.9% 50 ML IV PRN ×2 (11:52→21:27)
--- NOTE | 2022-08-09 13:39 | Hospitalist Progress Note ---
Date of Service August 09, 2022 Assessment & Plan (1) Heart failure, diastolic, with acute decompensation: (2) Hypertension: (3) Atrial fibrillation: (4) Sleep apnea: Plan 67-year-old female who has significant past medical history of chronic HFpEF, STEFANY on CPAP, PAF, HTN, RLS, hx of DVT, cerebral aneurysm, CKD stage III and iron deficiency who presents to ED secondary to shortness of breath that started at 4 this morning. Pt presents with acute dyspnea, 8lb weight gain, edema, has missed 2 doses of diuretic due to planned colonoscopy Acute/Chronic HFpEF TTE noted mild concentric LVH, EF of 65 to 70%, no segmental wall motion abnormalities, no significant valvular pathology. 1 diastolic dysfunction. Patient did IV Lasix on admission. Lost about 3 kg since admission to this morning. Patient currently appears euvolemic based on my exam We will follow-up cardiology evaluation and recommendations. Will hold diuretics for today's creatinine bumped to 1.52. Will defer to special effects person about when to resume. Monitor renal function. Continue to monitor input and output, daily weights Remove Escobar Paroxysmal AF Reports hx of PAF Continue metoprolol Previously had been on warfarin (but for hx of dvt) [id number] at least 4, ( age, F, HTN, CHF) Reports bleeding issues which is current reason for colonoscopy Currently sinus on tele STEFANY Cpap with O2 at HS RLS Continue requip Medical marijuana user Rectal bleeding Iron deficiency She was to undergo EGD/C scope on day of presentation but due to SOB she was unable to and was sent to ED GI on board Currently on clears Discussed with GI. Will keep NPO PMN on for possible scope on sunday DVT ppx: SCDS for now Dispo: PCU FULL CODE PCP: Renetta Shipman Admission and Anticipated Discharge Date Admission Date: August 08, 2022 Subjective Patient seen and examined Patient reports shortness of breath is resolved. Denies chest pain, palpitations, cough Reported nausea earlier. Denies vomiting, abdominal pain, diarrhea Denies dysuria, frequency, urgency prior to presentation. Currently has a Escobar Denies fevers, chills Physical Exam Constitutional: + well hydrated; no acute distress Eyes: PERRL, conjunctivae normal, anicteric sclerae ENMT: external ear and nose normal, oropharynx normal Respiratory: normal respiratory effort; no respiratory distress Auscultation: + diminished lung sounds Cardiovascular: Rate/Rhythm: regular rate and regular rhythm S1 S2 Gastrointestinal (Abdomen): normal bowel sounds, soft, nontender, no hepatosplenomegaly Musculoskeletal: no cyanosis or clubbing, extremities motor strength 5/5 No pedal edema Neurologic: PERRL, EOMI, accommodation nl, no face palsy, no dysarthria Psychiatric: A+Ox3, euthymic affect Genitourinary: Escobar in situ Results & Data Results & Data ([facility]) Vital Signs (Past 12 Hours) Vital Signs Temp Pulse Resp BP Pulse Ox O2 Del Method O2 Flow Rate 08/09/22 11:04 36.4 C L 60 20 90/59 L 93 Room Air 08/09/22 08:00 Room Air 08/09/22 08:00 63 08/09/22 07:28 36.4 C L 57 L 20 93/61 L 91 Room Air 08/09/22 03:00 36.6 C 63 16 98/62 L 93 Nasal Cannula 2 Laboratory Results Abnormal lab results 08/09/22 08/09/22 Range/Units 03:35 03:35 RDW Std Deviation 46.5 H (36.4-46.3) fL Immature Gran # (Auto) 0.07 H (0.00-0.02) K/uL Creatinine 1.52 H (0.6-1.2) mg/dl
[2022-08-09] MEDS: MAGNESIUM OXIDE 400 MG TAB PO SCH (22:09)
[2022-08-09] MEDS: traZODone HCL 50 MG TAB PO SCH (22:10)
[2022-08-10 06:35] LABS: Hemoglobin 12.3 g/dl (12.0-16.0); Mean Corpuscular Hemoglobin 29.5 pg (25.0-34.0); Mean Corpuscular Hgb Conc 32.4 g/dL (32.0-36.0); Mean Corpuscular Volume 91.1 fL (80.0-100.0); Mean Platelet Volume 10.2 fL (9.4-12.3); Platelet Count 262 K/uL (130-400); RDW Coefficient of Variation 13.9 % (11.5-14.5); RDW Standard Deviation 47.1 fL (36.4-46.3); Red Blood Count 4.17 M/uL (3.93-5.22); White Blood Count 7.18 K/ul (4.8-10.8)
[2022-08-10 07:04] LABS: BUN Creatinine Ratio 16.5 (10-20); Calcium 8.9 mg/dl (8.5-10.1); Creatinine Clr Calc Pharmacy 60.6 ml/min; Est GFR (Non-African American) 46.6 ml/min; Magnesium 2.4 mg/dl (1.7-2.4); Phosphorus 3.1 mg/dl (2.5-4.9); Potassium 4.4 mmol/L (3.5-5.1)
--- NOTE | 2022-08-10 07:38 | Cardiology Progress Note ---
Date of Service August 10, 2022 Assessment & Plan (1) Heart failure, diastolic, with acute decompensation: (2) Shortness of breath: Plan: Acute on chronic diastolic CHF in the setting of colonoscopy prep and 2 missed doses of Torsemide. Patient diuresed almost 4L and is down about 9.5 labs from admission. Renal function improved to baseline with the holding of IV lasix. Patient appears euvolemic on exam. -Will plan on restarting torsemide this afternoon, Normally maintains on 40 mg BID at home. Will start 40 mg daily today. -Repeat BMP tomorrow morning (3) Hypertension: Plan: Low blood pressures during this admission- possibly now due to hypovolemia. Improving since holding of diuretics. Asymptomatic. -Will hold losartan today due to renal decline and low BP- will restart when clinically appropriate. -Continue to hold Aldactone at this time- will reassess restarting pending clinical course. (4) Iron deficiency anemia: Plan: Will defer to GI regarding possible scope inpatient- agree with plan to avoid a redo prep resulting in acute/recurrent HFpEF. Patient to remain on clear liquid diet with NPO tomorrow morning per GI. (5) Sinus bradycardia: (6) Paroxysmal atrial fibrillation: Plan: Patient/Chart history of PAF. PAF, CHADSVASC 4, (age, female, HTN, CHF)- previously on warfarin (for DVT). No known recurrence of atrial fib. -Sinus Raúl on monitor, asymptomatic- okay to continue metoprolol tartrate, recommend continued monitoring on Tele. -Recommend a potassium goal of 4.0 and mag of 2.0 replace as necessary. Plan Case discussed with Dr. Bernal. Will follow. Admission and Anticipated Discharge Date Admission Date: August 08, 2022 Supervising Physician Co-Signing Physician Notes Patient seen and examined with HECTOR Hayes. Agree with findings and assessment as above. Subjective 67-year-old female with acute on chronic diastolic CHF in setting of colonoscopy prep. 08/08:Diuresed with x1 dose of 80 mg of IV Lasix and 60 mg of IV Lasix twice daily. 08/09: Patient down 10 pounds, lower extremity edema and orthopnea resolved. Patient mildly hypokalemic with an increase in her creatinine to 1.5. Baseline between 1.1 and 1.2. Lasix held. Escobar removed. Losartan held due to hypotension and declining renal function. Patient maintained on clear liquid diet and n.p.o. at midnight for possible GI scope in the morning. 08/10: Upon entrance into the room patient resting comfortably in bed. In no acute distress. No longer having any dyspnea with exertion. Denies any orthopnea or PND. No lower extremity edema. No chest pain, palpitations, dizziness, or pres yncope. Chart and telemetry reviewed. Labs: Improved renal function (scr 1.5>>1.2) Tele: SR 60-70s I&O: -3.3L Weight: 128 kg (08/08) >> 124.3 kg (08/10) Review of Systems Review of Systems: All systems reviewed & are unremarkable except as noted in HPI & below Physical Exam Constitutional: well developed, well nourished and + obese; no acute distress Eyes: PERRL, conjunctivae normal, anicteric sclerae Neck: normal visual inspection and trachea midline Respiratory: normal respiratory effort, lungs clear to auscultation Auscultation: + diminished lung sounds; no rales, no rhonchi and no wheezes Cardiovascular: RRR, no murmur, no edema Rate/Rhythm: regular rate and regular rhythm Heart Sounds: normal S1 and normal S2; no murmur Vessels: normal peripheral pulses; no JVD and no carotid bruit Extremities: + varicosities (BL lower extremity ); no edema Gastrointestinal (Abdomen): Percussion/Palpation: + abdomen tender (RUQ) and abdomen soft Skin: no rashes, warm and dry Psychiatric: A+Ox3, euthymic affect Results & Data ([facility]) Vital Signs (Past 12 Hours) Vital Signs Temp Pulse Pulse Resp BP Pulse Ox O2 Del Method 08/10/22 07:21 36.7 C 63 18 102/65 94 Room Air 08/10/22 03:20 36.5 C 60 18 119/64 95 Nasal CPAP 08/09/22 23:25 72 08/09/22 22:41 37.1 C 69 19 120/70 90 Room Air Laboratory Results CBC 08/10/22 Range/Units 05:44 WBC 7.18 (4.8-10.8) K/ul RBC 4.17 (3.93-5.22) M/uL Hgb 12.3 (12.0-16.0) g/dl Hct 38.0 (34.1-44.9) % Plt Count 262 (130-400) K/uL Comprehensive Metabolic Panel 08/10/22 Range/Units 05:44 Sodium 137 (136-145) mmol/L Potassium 4.4 (3.5-5.1) mmol/L Chloride 103 (98-107) mmol/L Carbon Dioxide 28 (21-32) mmol/L BUN 20 (6-23) mg/dl Creatinine 1.21 H D (0.6-1.2) mg/dl Glucose 86 (70-99(Fasting)) mg/dl Calcium 8.9 (8.5-10.1) mg/dl Intake and Output 08/09/22 08/10/22 08/10/22 22:59 06:59 14:59 Intake Total 50.5 / 1016.0 100 / 1016.0 Output Total 300 / 300 Balance 50.5 / 741.0 100 / 741.0 -300 / -300 Intake: IV 50.5 / 101.0 Promethazine HCl 12.5 mg In 50.5 / 101.0 Sodium Chloride 0.9% 50 ml @ 202 mls/hr IV Q6H PRN Rx#: [id number] Oral 100 / 915 Output: Urine 300 / 300 Other: Weight 124.3 kg
[2022-08-10] MEDS: ATORVASTATIN 10 MG TAB PO SCH (09:03)
[2022-08-10] MEDS: FLUTICASONE PROPIONATE NA SPR 16 GM BTL SCH (09:03)
[2022-08-10] MEDS: FLUTICASONE FUROATE 200MCG 14 PUFFS/INHALER INH SCH (09:03)
[2022-08-10] MEDS: GABAPENTIN 100 MG CAP PO SCH ×3 (09:04→21:49)
[2022-08-10] MEDS: rOPINIRole HCL 2 MG TABLET PO SCH ×3 (09:12→21:50)
[2022-08-10] MEDS: UMECLIDINIUM/VILANTEROL 62.5/25MCG 7 PUFFS/INHALER INH SCH (09:12)
[2022-08-10] MEDS: POTASSIUM CHLORIDE CRTAB 20 MEQ TABCR PO SCH (09:12)
[2022-08-10] MEDS: METOPROLOL TARTRATE 50 MG TAB PO SCH ×2 (09:13→21:51)
[2022-08-10] MEDS: ASPIRIN 81 MG ECTAB PO SCH (09:18)
[2022-08-10] MEDS: MoRPHine SULFATE 2 MG/ML CARP IV PRN ×2 (09:25→14:06)
--- NOTE | 2022-08-10 09:37 | Gastroenterology Progress Note ---
Date of Service August 10, 2022 Assessment & Plan (1) Shortness of breath: Plan: 67 year old female admitted with acute heart failure, dyspnea and weight gain. She was prepped for egd/colon which was cancelled earlier this week. She is no symptomatically improved and diuresis. Will give two doses of miralax today and plan for EGD/Colon Sunday Clear liquids only today NPO after midnight EGD/Colon Sunday Thank you for allowing us to participate in the care of this patient. Please call with any acute changes, questions or concerns. Please see addendum below with additional recommendation from my supervising physician. Admission and Anticipated Discharge Date Admission Date: August 08, 2022 Supervising Physician Co-Signing Physician Notes I have personally seen and examined the patient with HECTOR Lee. Her note reflects my exam and findings. I agree with her impression and plan. Doing well. EGD/Colonoscopy planned for tomorrow. Tommie Edouard M.D. Subjective Feeling well! No longer SOB or wearing O2 Has persistent abd pain, nausea Intermittent rectal bleeding No black stools Review of Systems Review of Systems: All systems reviewed & are unremarkable except as noted in HPI & below Physical Exam Constitutional: WD/WN, vitals as above Neck: trachea midline, no thyromegaly Respiratory: normal respiratory effort Gastrointestinal (Abdomen): Inspection/Auscultation: abdomen normal to inspection; abdomen not distended Percussion/Palpation: abdomen soft; abdomen nontender, no guarding and abdomen not rigid Skin: no rashes, warm and dry Results & Data ([facility]) Vital Signs (Past 12 Hours) Vital Signs Temp Pulse Pulse Resp BP Pulse Ox O2 Del Method 08/10/22 07:40 58 L 08/10/22 07:21 36.7 C 63 18 102/65 94 Room Air 08/10/22 03:20 36.5 C 60 18 119/64 95 Nasal CPAP 08/09/22 23:25 72 08/09/22 22:41 37.1 C 69 19 120/70 90 Room Air Laboratory Results 08/10/22 08/10/22 Range/Units 05:44 05:44 WBC 7.18 (4.8-10.8) K/ul RBC 4.17 (3.93-5.22) M/uL Hgb 12.3 (12.0-16.0) g/dl Hct 38.0 (34.1-44.9) % MCV 91.1 (80.0-100.0) fL MCH 29.5 (25.0-34.0) pg MCHC 32.4 (32.0-36.0) g/dL RDW Std Deviation 47.1 H (36.4-46.3) fL RDW Coeff of Anurag 13.9 (11.5-14.5) % Plt Count 262 (130-400) K/uL MPV 10.2 (9.4-12.3) fL Sodium 137 (136-145) mmol/L Potassium 4.4 (3.5-5.1) mmol/L Chloride 103 (98-107) mmol/L Carbon Dioxide 28 (21-32) mmol/L Anion Gap 6 (3-11) BUN 20 (6-23) mg/dl Creatinine 1.21 H D (0.6-1.2) mg/dl Est Cr Clr Drug Dosing 60.6 ml/min Est GFR ( Amer) 54.0 ml/min Est GFR (Non-Af Amer) 46.6 ml/min BUN/Creatinine Ratio 16.5 (10-20) Glucose 86 (70-99(Fasting)) mg/dl Calcium 8.9 (8.5-10.1) mg/dl Phosphorus 3.1 (2.5-4.9) mg/dl Magnesium 2.4 (1.7-2.4) mg/dl
[2022-08-10] MEDS: POLYETHYLENE (MIRALAX) 17 GM PACK PO SCH ×2 (09:52→21:27)
[2022-08-10] MEDS: PROMETHAZINE HCL 12.5 MG in SODIUM CHLORIDE 0.9% 50 ML IV PRN ×2 (10:00→21:27)
--- NOTE | 2022-08-10 18:06 | Hospitalist Progress Note ---
Date of Service August 10, 2022 Assessment & Plan (1) Heart failure, diastolic, with acute decompensation: (2) Hypertension: (3) Atrial fibrillation: (4) Sleep apnea: Plan 67-year-old female who has significant past medical history of chronic HFpEF, STEFANY on CPAP, PAF, HTN, RLS, hx of DVT, cerebral aneurysm, CKD stage III and iron deficiency who presented to ED 08/08 secondary to shortness of breath that started at 4am on the day of arrival. She is being managed for the following: Acute/Chronic HFpEF Pt presented with acute dyspnea, 8lb weight gain, edema, has missed 2 doses of diuretic due to planned colonoscopy. TTE noted mild concentric LVH, EF of 65 to 70%, no segmental wall motion abnormalities, no significant valvular pathology. Grade 1 diastolic dysfunction. Status post IV diuresis. Patient currently appears euvolemic on exam. Cardiology on board, managing diuresis. Monitor renal function. Creatinine getting better. Continue to monitor input and output, daily weights Rectal bleeding Iron deficiency She was to undergo EGD/C scope on day of presentation but due to SOB she was unable to and was sent to ED GI on board Currently on clears Discussed with GI. Will keep NPO PMN on for possible scope on sunday Monitor hemoglobin Paroxysmal AF Reports hx of PAF Continue metoprolol Previously had been on warfarin (but for hx of dvt) [id number] at least 4, ( age, F, HTN, CHF) Reports bleeding issues which is current reason for colonoscopy Currently sinus on tele STEFANY Cpap with O2 at HS RLS Continue requip Medical marijuana user DVT ppx: SCDS for now Dispo: PCU FULL CODE PCP: Renetta Shipman Admission and Anticipated Discharge Date Admission Date: August 08, 2022 Subjective Patient seen and examined at bedside as a follow-up of acute on chronic heart failure with preserved ejection fraction and rectal bleeding/iron deficiency anemia. Patient was lying in bed, on room air, NAD, denies any new acute event overnight. Patient reports right-sided belly pain which is chronic in nature, denies any headache or dizziness or sore throat or cough or fever or chest pain or other review of symptoms. Patient is on liquid diet, plan is for scope tomorrow by GI team. Physical Exam Physical Exam: GENERAL: Alert and oriented x3. NAD, on RA. HEENT: No pallor, no icterus. Pupils equal, round and reactive to light. Oral mucosa moist. NECK: No JVD, no neck masses. HEART: S1 and S2 heard. Regular rate and rhythm. No murmur, no gallop. RESPIRATORY SYSTEM: Normal AP diameter. No accessory muscle use. No wheezing, b/b rales ABDOMEN: Soft, bowel sounds present, + mild tender rt lumbar region , no distention. CENTRAL NERVOUS SYSTEM: No facial droop. Speech is clear. Obeys simple commands. Moves extremities. EXTREMITIES: No edema, no erythema seen. LLE varicose veins noted. Results & Data Results & Data ([facility]) Vital Signs (Past 12 Hours) Vital Signs Temp Pulse Pulse Resp BP Pulse Ox O2 Del Method 08/10/22 15:42 36.7 C 65 19 117/70 93 Room Air 08/10/22 15:16 63 08/10/22 12:24 Room Air, CPAP 08/10/22 11:11 36.6 C 61 16 127/76 94 Room Air 08/10/22 07:40 58 L 08/10/22 07:21 36.7 C 63 18 102/65 94 Room Air
[2022-08-10] MEDS: MAGNESIUM OXIDE 400 MG TAB PO SCH (21:49)
[2022-08-10] MEDS: traZODone HCL 50 MG TAB PO SCH (21:50)
[2022-08-11 06:58] LABS: BUN Creatinine Ratio 16.7 (10-20); Calcium 8.9 mg/dl (8.5-10.1); Creatinine Clr Calc Pharmacy 74.1 ml/min; Est GFR (African American) 61.9 ml/min; Est GFR (Non-African American) 53.5 ml/min; Potassium 4.6 mmol/L (3.5-5.1)
--- NOTE | 2022-08-11 08:19 | Cardiology Progress Note ---
Date of Service August 11, 2022 Assessment & Plan (1) Heart failure, diastolic, with acute decompensation: (2) Shortness of breath: Plan: Acute on chronic diastolic CHF in the setting of colonoscopy prep and 2 missed doses of Torsemide. Patient diuresed almost 4L and is down about 9.5 labs from admission. Renal function improved to baseline with the holding of IV lasix. Patient appears euvolemic on exam. -Continue torsemide 40 mg daily for now. (3) Hypertension: Plan: Low blood pressures during this admission- possibly now due to hypovolemia. Now improved and back to baseline - For now continue to hold Losartan- will likely restart at discharge. -Continue to hold Aldactone at this time- will reassess restarting pending clinical course. (4) Iron deficiency anemia: Plan: Will defer to GI regarding possible scope inpatient- agree with plan to avoid a redo prep resulting in acute/recurrent HFpEF. Patient to remain NPO until scope per GI (5) Sinus bradycardia: (6) Paroxysmal atrial fibrillation: Plan: Patient/Chart history of PAF. PAF, CHADSVASC 4, (age, female, HTN, CHF)- previously on warfarin (for DVT). No known recurrence of atrial fib. -Sinus Raúl on monitor, asymptomatic- okay to continue metoprolol tartrate, recommend continued monitoring on Tele while admitted. -Recommend a potassium goal of 4.0 and mag of 2.0 replace as necessary. Plan Case discussed with Dr. Bernal. No further cardiac intervention/testing necessary at this time. Okay to discharge from a cardiac standpoint once GI interventions are complete. On discharge- recommend resuming home dose of Torsemide 40 mg twice daily and restart Losartan 25 mg daily. Continue Metoprolol tartrate 50 mg BID. Will hold Aldactone at this time and consider restarting as an outpatient. She will need a BMP 1 week post discharge and a follow up in our outpatient clinic in 2 weeks. I will arrange. Admission and Anticipated Discharge Date Admission Date: August 08, 2022 Supervising Physician Co-Signing Physician Notes Patient seen and examined with HECTOR Hayes. Agree with findings and assessment as above. Subjective 67-year-old female with acute on chronic diastolic CHF in setting of colonoscopy prep. 08/08:Diuresed with x1 dose of 80 mg of IV Lasix and 60 mg of IV Lasix twice daily. 08/09: Patient down 10 pounds, lower extremity edema and orthopnea resolved. Patient mildly hypokalemic with an increase in her creatinine to 1.5. Baseline between 1.1 and 1.2. Lasix held. Escobar removed. Losartan held due to hypotension and declining renal function. 08/10: Renal function improved. Torsemide 40 mg daily restarted. Aldactone and losartan remain on hold. Tele: SR 60s I&O: -3.1L Weight: 128 kg (08/08) >> 124 kg "per nursing- documented weight is not correct" (08/11) Chart and telemetry reviewed. Patient evaluated at bedside. Upon entrance into the room patient resting in bed. Denies any acute cardiovascular concerns. No chest pain, shortness of breath, palpitations, orthopnea, or PND. No lower extremity edema. Concerns regarding rectal bleeding this morning. Having a scope later today with GI. Review of Systems Review of Systems: All systems reviewed & are unremarkable except as noted in HPI & below Physical Exam 2 Constitutional: well developed, well nourished and + obese; no acute distress Eyes: PERRL, conjunctivae normal, anicteric sclerae Neck: normal visual inspection and trachea midline Respiratory: normal respiratory effort, lungs clear to auscultation Auscultation: + diminished lung sounds; no rales, no rhonchi and no wheezes Cardiovascular: RRR, no murmur, no edema Rate/Rhythm: regular rate and r egular rhythm Heart Sounds: normal S1 and normal S2; no murmur Vessels: normal peripheral pulses; no JVD and no carotid bruit Extremities: + varicosities (BL lower extremity ); no edema Gastrointestinal (Abdomen): Percussion/Palpation: + abdomen tender (RUQ) and abdomen soft Skin: no rashes, warm and dry Psychiatric: A+Ox3, euthymic affect Results & Data ([facility]) Vital Signs (Past 12 Hours) Vital Signs Temp Pulse Pulse Resp BP Pulse Ox O2 Del Method 08/11/22 07:20 36.7 C 87 16 124/69 95 Room Air 08/11/22 07:01 36.7 C 61 18 124/69 95 Room Air 08/11/22 03:06 36.3 C L 60 16 94/43 L 97 Room Air 08/10/22 23:16 62 08/10/22 22:46 36.6 C 60 18 114/73 94 Room Air 08/10/22 21:50 69
--- NOTE | 2022-08-11 08:37 | Anesthesiology Consultation ---
Date of Service August 11, 2022 Assessment & Plan (1) Encounter for pre-operative examination: Chart Review Chart Review: Acceptable Risk for Surgery and Patient NOT seen in Pre Admission Testing Cardiology note 08/11/22: Assessment & Plan (1) Heart failure, diastolic, with acute decompensation: (2) Shortness of breath: Plan: Acute on chronic diastolic CHF in the setting of colonoscopy prep and 2 missed doses of Torsemide. Patient diuresed almost 4L and is down about 9.5 lbs from admission. Renal function improved to baseline with the holding of IV lasix. Patient appears euvolemic on exam. Consults Requested none History Surgery Operation Date: 08/11/22 16:30 Proposed Procedures p Colonoscopy EGD Dr Edouard - Tommie Edouard MD Height/Weight Height: 5 ft 5 in Weight: 143.5 kg Allergies Allergy/AdvReac Type Severity Reaction Status Date / Time sulindac Allergy Intermediate HIVES Verified 08/08/22 08:03 adhesive Allergy Mild "Tape" -- Verified 08/08/22 08:03 blisters cyclobenzaprine Allergy Mild RASH Verified 08/08/22 08:03 acetaminophen [From Tylenol] AdvReac Severe restless Verified 08/08/22 08:03 legs hydrochlorothiazide AdvReac Intermediate COUGH Verified 08/08/22 08:03 triamterene AdvReac Intermediate COUGH Verified 08/08/22 08:03 lisinopril AdvReac Mild Cough Verified 08/08/22 08:03 tetanus toxoid, adsorbed AdvReac Mild IRRITABILIT Verified 08/08/22 08:03 Y Medications Home Medications Medication Instructions Recorded Confirmed Last Taken aspirin 81 mg tablet,delayed 81 mg PO QAM 02/09/19 08/08/22 08/07/22 release fluticasone propionate 50 2 spray intranasal QAM 02/09/19 08/08/22 08/07/22 mcg/actuation nasal spray,suspension (Flonase Allergy Relief) metoprolol tartrate 50 mg tablet 50 mg PO BID 02/09/19 08/08/22 08/07/22 ondansetron HCl 4 mg tablet 4 mg PO DIRECTED PRN Nausea 02/09/19 08/08/22 01/14/20 (Zofran) spironolactone 25 mg tablet 12.5 mg PO BID 02/09/19 08/08/22 08/07/22 torsemide 20 mg tablet 40 mg PO BID 02/09/19 08/08/22 08/07/22 ergocalciferol (vitamin D2) 1,250 1,250 mcg PO MONTHLY 04/30/20 08/08/22 08/07/22 mcg (50,000 unit) capsule (Vitamin D2) losartan 25 mg tablet (Cozaar) 25 mg PO QAM 04/30/20 08/08/22 08/07/22 albuterol sulfate 90 mcg/actuation 2 inh inhalation Q6H PRN Shortness 07/20/22 08/08/22 Unknown breath activated powder Of Breath inhaler,sensor atorvastatin 10 mg tablet 10 mg PO QAM 07/20/22 08/08/22 08/07/22 docusate sodium 100 mg capsule 100 mg PO QAM 07/20/22 08/08/22 08/07/22 (Colace) fluticasone fur. 200 mcg-umeclid 1 inh inhalation QAM 07/20/22 08/08/22 08/07/22 62.5 mcg-vilant 25 mcg inhalat.powder (Trelegy Ellipta) gabapentin 100 mg capsule 100 mg PO TID 07/20/22 08/08/22 08/07/22 ipratropium 0.5 mg-albuterol 3 mg 3 ml inhalation TID 07/20/22 08/08/22 08/07/22 (2.5 mg base)/3 mL nebulization soln magnesium 500 mg tablet 500 mg PO HS 07/20/22 08/08/22 08/07/22 meclizine 25 mg tablet 25 mg PO DAILY PRN Dizziness 07/20/22 08/08/22 Unknown ropinirole 2 mg tablet 2 mg PO TID 07/20/22 08/08/22 08/07/22 trazodone 100 mg tablet 150 mg PO HS 08/08/22 08/08/22 Unknown Active Medications Generic Name Dose Route Start Last Admin Trade Name Freq PRN Reason Stop Dose Admin Aspirin 81 mg 08/09/22 09:00 08/11/22 08:41 Aspirin 81 Mg Ectab PO 09/08/22 08:59 81 mg QAM ANTIONETTE Administration Atorvastatin Calcium 10 mg 08/09/22 09:00 08/11/22 08:41 Atorvastatin 10 Mg Tab PO 09/08/22 08:59 10 mg QAM ANTIONETTE Administration Fluticasone Furoate 1 puffs 08/09/22 09:00 08/11/22 08:43 Fluticasone Furoate 200mcg 14 Puffs/Inhaler INH 09/08/22 08:59 1 puffs DAILY ANTIONETTE Administration Fluticasone Propionate 2 sprays 08/09/22 09:00 08/11/22 08:42 Fluticasone Propionate Na Spr 16 Gm Btl NA 09/08/22 08:59 2 sprays QAM ANTIONETTE Administration Gabapentin 100 mg 08/08/22 14:00 08/11/22 08:41 Gabapentin 100 Mg Cap PO 09/07/22 13:59 100 mg TID ANTIONETTE Administration Promethazine HCl 12.5 mg/ 50.5 mls @ 202 mls/hr 08/09/22 10:18 08/11/22 09:24 Sodium Chloride IV 09/08/22 10:17 Infused Q6H PRN Infusion Nausea And Vomiting Losartan Potassium 25 mg 08/09/22 09:00 08/09/22 08:26 Losartan Potassium 25 Mg Tab PO 09/08/22 08:59 25 mg QAM ANTIONETTE Administration Magnesium Oxide 400 mg 08/08/22 21:00 08/10/22 21:49 Magnesium Oxide 400 Mg Tab PO 09/07/22 20:59 400 mg HS ANTIONETTE Administration Metoprolol Tartrate 50 mg 08/08/22 21:00 08/11/22 08:41 Metoprolol Tartrate 50 Mg Tab PO 09/07/22 20:59 50 mg BID ANTIONETTE Administration Morphine Sulfate 2 mg 08/08/22 20:32 08/10/22 14:06 Morphine Sulfate 2 Mg/Ml Carp IV 08/22/22 20:31 2 mg Q3H PRN Administration Pain Ondansetron HCl 4 mg 08/08/22 17:28 08/09/22 09:02 Ondansetron Inj 2 Mg/Ml 2 Ml Vial IV 09/07/22 12:28 4 mg Q4 PRN Administration Nausea Potassium Chloride 40 meq 08/09/22 09:00 08/11/22 08:42 Potassium Chloride Crtab 20 Meq Tabcr PO 09/08/22 08:59 40 meq DAILY ANTIONETTE Administration Ropinirole HCl 2 mg 08/08/22 14:00 08/11/22 08:40 Ropinirole Hcl 2 Mg Tablet PO 09/07/22 13:59 2 mg TID ANTIONETTE Administration Spironolactone 12.5 mg 08/09/22 09:00 08/09/22 08:26 Spironolactone 12.5 Mg Tab PO 09/08/22 08:59 12.5 mg BID17 ANTIONETTE Administration Torsemide 40 mg 08/11/22 12:00 08/11/22 11:22 Torsemide 10 Mg Tab PO 09/10/22 11:59 Not Given DAILY ANTIONETTE Trazodone HCl 150 mg 08/08/22 21:00 08/10/22 21:50 Trazodone Hcl 50 Mg Tab PO 09/07/22 20:59 150 mg HS ANTIONETTE Administration Umeclidinium/Vilanterol 1 puffs 08/09/22 09:00 08/11/22 08:42 Umeclidinium/Vilanterol 62.5/25mcg 7 Puffs/Inhaler INH 09/08/22 08:59 1 puffs DAILY ANTIONETTE Administration Past Medical History Medical History Anxiety Atrial fibrillation dx 2017--intermittent--on metoprolol--follows with Dr. Shipman Brain aneurysm s/p repair (2018) CHF (congestive heart failure) follows with [facility] cardio Depression Dyspnea nebulizer/inhaler daily and prn Fibromyalgia Hiatal hernia History of basal cell carcinoma History of COVID-19 diagnosed 11/2021--mild symptoms, no symptoms now History of migraine Hypertension Morbid obesity with BMI of 45.0-49.9, adult On home oxygen therapy 2L via CPAP at HS Osteoarthritis Restless leg Sleep apnea CPAP with 2L at HS Past Family History Family History Other No family history of adverse response to anesthesia Past Surgical History Surgical History Awareness under anesthesia H/O cerebral aneurysm repair 2018 - [facility] - [facility] History of basal cell carcinoma (BCC) excision History of benign breast biopsy History of section History of colonoscopy last 2019 @ [facility] History of esophagogastroduodenoscopy (EGD) last 2019 @ [facility] History of exploratory laparotomy History of eyelid surgery History of tonsillectomy History of total abdominal hysterectomy and bilateral salpingo-oophorectomy Slow to wake up after anesthesia Social History Smoking Status: Never smoker Hx Alcohol Use: No Hx Substance Use: Yes substance use type: marijuana Substance Use Type Other:: medical marijuana Last Used Substance: Days (ago) Last Used Substance Other:: 08/06/22 Physical Exam Vital Signs Last Vital Signs Temp 36.5 C 08/11/22 11:37 Pulse 62 08/11/22 11:37 Resp 18 08/11/22 11:37 BP 117/63 08/11/22 11:37 Pulse Ox 94 08/11/22 11:37 O2 Del Method 08/11/22 11:37 O2 Flow Rate 2 08/09/22 03:00 Testing Laboratory Results 08/10/22 05:44 08/11/22 06:07 Electrocardiogram Date: 08/08/22 DICTATED BY:Javi Rivera MD Test Reason : Blood Pressure : / mmHG Vent. Rate : 067 BPM Atrial Rate : 067 BPM P-R Int : 178 ms QRS Dur : 076 ms QT Int : 394 ms P-R-T Axes : -49 052 028 degrees QTc Int : 416 ms Sinus rhythm Low voltage QRS Nonspecific T wave abnormality Confirmed by Javi Rivera ([id number]) on 08/09/2022 8:41:11 AM Chest X-Ray Date: 08/08/22 XR chest 1V portable HISTORY: Atypical Chest Pain COMPARISON: Chest 01/15/2020. FINDINGS: No pneumothorax. The heart remains mildly enlarged. There is mild pulmonary vascular congestion without overt edema. This is similar to the prior study. No new focal lung consolidations to suggest pneumonia. There is a left shoulder prosthesis. Advanced degenerative changes noted within the right sh oulder. Stable blunting left lateral costophrenic sulcus. This may be due to prominent mediastinal fat. IMPRESSION: Mild cardiomegaly with mild central pulmonary vascular congestion without overt edema. This is similar to the prior study Echocardiogram Date: 08/08/22 Normal LV chamber size with mild LVH EF 65-70% No segmental LV wall motion abnormalities No valvular pathology Grade 1 DD
[2022-08-11] MEDS: rOPINIRole HCL 2 MG TABLET PO SCH ×2 (08:40→14:05)
[2022-08-11] MEDS: METOPROLOL TARTRATE 50 MG TAB PO SCH (08:41)
[2022-08-11] MEDS: ASPIRIN 81 MG ECTAB PO SCH (08:41)
[2022-08-11] MEDS: ATORVASTATIN 10 MG TAB PO SCH (08:41)
[2022-08-11] MEDS: GABAPENTIN 100 MG CAP PO SCH ×2 (08:41→14:05)
[2022-08-11] MEDS: UMECLIDINIUM/VILANTEROL 62.5/25MCG 7 PUFFS/INHALER INH SCH (08:42)
[2022-08-11] MEDS: FLUTICASONE PROPIONATE NA SPR 16 GM BTL SCH (08:42)
[2022-08-11] MEDS: POTASSIUM CHLORIDE CRTAB 20 MEQ TABCR PO SCH (08:42)
[2022-08-11] MEDS: FLUTICASONE FUROATE 200MCG 14 PUFFS/INHALER INH SCH (08:43)
[2022-08-11] MEDS: PROMETHAZINE HCL 12.5 MG in SODIUM CHLORIDE 0.9% 50 ML IV PRN (09:06)
--- NOTE | 2022-08-11 09:42 | Gastroenterology Progress Note ---
Date of Service August 11, 2022 Assessment & Plan (1) Shortness of breath: Plan: 67 year old female admitted with acute heart failure, dyspnea and weight gain. She was prepped for egd/colon which was cancelled earlier this week. She is no symptomatically improved and diuresis. EGD/Colon today NPO after midnight Tap water enema ordered to be given before examination EGD/Colon Sunday Thank you for allowing us to participate in the care of this patient. Please c all with any acute changes, questions or concerns. Please see addendum below with additional recommendation from my supervising physician. Admission and Anticipated Discharge Date Admission Date: August 08, 2022 Subjective Pt was seen and evaluated, chart reviewed. Feeling well, had some liquid, green/yellow stool last evening No nausea, vomiting. Review of Systems Review of Systems: All systems reviewed & are unremarkable except as noted in HPI & below Physical Exam Constitutional: WD/WN, vitals as above Neck: trachea midline, no thyromegaly Respiratory: normal respiratory effort Gastrointestinal (Abdomen): Inspection/Auscultation: abdomen normal to inspection; abdomen not distended Percussion/Palpation: abdomen soft; abdomen nontender, no guarding and abdomen not rigid Skin: no rashes, warm and dry Results & Data ([facility]) Vital Signs (Past 12 Hours) Vital Signs Temp Pulse Pulse Resp BP Pulse Ox O2 Del Method 08/11/22 07:20 36.7 C 87 16 124/69 95 Room Air 08/11/22 07:01 36.7 C 61 18 124/69 95 Room Air 08/11/22 03:06 36.3 C L 60 16 94/43 L 97 Room Air 08/10/22 23:16 62 08/10/22 22:46 36.6 C 60 18 114/73 94 Room Air 08/10/22 21:50 69 Laboratory Results 08/11/22 Range/Units 06:07 Sodium 137 (136-145) mmol/L Potassium 4.6 (3.5-5.1) mmol/L Chloride 105 (98-107) mmol/L Carbon Dioxide 26 (21-32) mmol/L Anion Gap 6 (3-11) BUN 18 (6-23) mg/dl Creatinine 1.08 (0.6-1.2) mg/dl Est Cr Clr Drug Dosing 74.1 ml/min Est GFR ( Amer) 61.9 ml/min Est GFR (Non-Af Amer) 53.5 ml/min BUN/Creatinine Ratio 16.7 (10-20) Glucose 87 (70-99(Fasting)) mg/dl Calcium 8.9 (8.5-10.1) mg/dl
[2022-08-11] MEDS: TORSEMIDE 10 MG TAB PO SCH ×2 (11:22→14:06)
[2022-08-11] MEDS ORDERED: ONDANSETRON INJ 2 MG/ML 2 ML VIAL ONE (11:56)
[2022-08-11] MEDS ORDERED: ONDANSETRON INJ 2 MG/ML 2 ML VIAL IV STA (11:58)
[2022-08-11] MEDS ORDERED: PROPOFOL IV EMULSION 10 MG/ML 20 ML VIAL IV ONE (12:09)
[2022-08-11] MEDS ORDERED: LIDOCAINE 2% MPF LOCAL 5 ML VIAL INFIL ONE (12:09)
--- NOTE | 2022-08-11 12:12 | History & Physical Report ---
Date of Service August 11, 2022 Assessment & Plan (1) Rectal bleeding: Plan: stable for colonoscopy (2) Nausea: Plan: stable for EGD Admission and Anticipated Discharge Date Admission Date: August 08, 2022 History of Present Illness Chief Complaint: rectal bleeding and nausea Primary Care Provider: Abby Shipman, pt with rectal bleeding and nausea for EGD/Colonoscopy Allergies Allergy/AdvReac Type Severity Reaction Status Date / Time sulindac Allergy Intermediate HIVES Verified 08/08/22 08:03 adhesive Allergy Mild "Tape" -- Verified 08/08/22 08:03 blisters cyclobenzaprine Allergy Mild RASH Verified 08/08/22 08:03 acetaminophen [From Tylenol] AdvReac Severe restless Verified 08/08/22 08:03 legs hydrochlorothiazide AdvReac Intermediate COUGH Verified 08/08/22 08:03 triamterene AdvReac Intermediate COUGH Verified 08/08/22 08:03 lisinopril AdvReac Mild Cough Verified 08/08/22 08:03 tetanus toxoid, adsorbed AdvReac Mild IRRITABILIT Verified 08/08/22 08:03 Y Home Medications Medication Instructions Recorded Confirmed Type aspirin 81 mg tablet,delayed 81 mg PO QAM 02/09/19 08/08/22 History release fluticasone propionate 50 2 spray intranasal QAM 02/09/19 08/08/22 History mcg/actuation nasal spray,suspension (Flonase Allergy Relief) metoprolol tartrate 50 mg tablet 50 mg PO BID 02/09/19 08/08/22 History ondansetron HCl 4 mg tablet 4 mg PO DIRECTED PRN Nausea 02/09/19 08/08/22 History (Zofran) spironolactone 25 mg tablet 12.5 mg PO BID 02/09/19 08/08/22 History torsemide 20 mg tablet 40 mg PO BID 02/09/19 08/08/22 History ergocalciferol (vitamin D2) 1,250 1,250 mcg PO MONTHLY 04/30/20 08/08/22 History mcg (50,000 unit) capsule (Vitamin D2) losartan 25 mg tablet (Cozaar) 25 mg PO QAM 04/30/20 08/08/22 History albuterol sulfate 90 mcg/actuation 2 inh inhalation Q6H PRN Shortness 07/20/22 08/08/22 History breath activated powder Of Breath inhaler,sensor atorvastatin 10 mg tablet 10 mg PO QAM 07/20/22 08/08/22 History docusate sodium 100 mg capsule 100 mg PO QAM 07/20/22 08/08/22 History (Colace) fluticasone fur. 200 mcg-umeclid 1 inh inhalation QAM 07/20/22 08/08/22 History 62.5 mcg-vilant 25 mcg inhalat.powder (Trelegy Ellipta) gabapentin 100 mg capsule 100 mg PO TID 07/20/22 08/08/22 History ipratropium 0.5 mg-albuterol 3 mg 3 ml inhalation TID 07/20/22 08/08/22 History (2.5 mg base)/3 mL nebulization soln magnesium 500 mg tablet 500 mg PO HS 07/20/22 08/08/22 History meclizine 25 mg tablet 25 mg PO DAILY PRN Dizziness 07/20/22 08/08/22 History ropinirole 2 mg tablet 2 mg PO TID 07/20/22 08/08/22 History trazodone 100 mg tablet 150 mg PO HS 08/08/22 08/08/22 History Past Med/Surg History Medical History Anxiety Atrial fibrillation dx 2016--intermittent--on metoprolol--follows with Dr. Shipman Brain aneurysm s/p repair (2018) CHF (congestive heart failure) follows with [facility] cardio Depression Dyspnea nebulizer/inhaler daily and prn Fibromyalgia Hiatal hernia History of basal cell carcinoma History of COVID-19 diagnosed 11/2021--mild symptoms, no symptoms now History of migraine Hypertension Morbid obesity with BMI of 45.0-49.9, adult On home oxygen therapy 2L via CPAP at HS Osteoarthritis Restless leg Sleep apnea CPAP with 2L at HS Surgical History Awareness under anesthesia H/O cerebral aneurysm repair 2018 - [facility] - follows [facility] neurosurgery History of basal cell carcinoma (BCC) excision History of benign breast biopsy History of section History of colonoscopy last 2019 @ [facility] History of esophagogastroduodenoscopy (EGD) last 2019 @ [facility] History of exploratory laparotomy History of eyelid surgery History of tonsillectomy History of total abdominal hysterectomy and bilateral salpingo-oophorectomy Slow to wake up after anesthesia Family History Other No family history of adverse response to anesthesia Social History Smoking Status: Never smoker Second Hand Exposure: No; Hx Alcohol Use: No Hx Substance Use: Yes Last Used Substance: Days (ago) Last Used Substance Other:: 08/06/22 Substance Use Type Other:: medical marijuana Preferred Language: Cook Islander Communication Ability: Effective 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 Beliefs That Will Affect Care: None Current Living Situation: Spouse Other Information That Helps Us Care for You: No Feels Safe at Home: Yes Safety Concerns: Feels Safe At This Time Assistive Devices: CPAP and Oxygen - at Night Physical Exam Constitutional: WD/WN, vitals as above Respiratory: normal respiratory effort, lungs clear to auscultation Cardiovascular: RRR, no murmur, no edema Gastrointestinal (Abdomen): normal bowel sounds, soft, nontender, no hepatosplenomegaly Results & Data ([facility]) Vital Signs (Past 12 Hours) Vital Signs Temp Pulse Pulse Pulse Resp BP Pulse Ox 08/11/22 11:37 36.5 C 62 18 117/63 94 08/11/22 11:35 79 08/11/22 07:20 36.7 C 87 16 124/69 95 08/11/22 07:01 36.7 C 61 18 124/69 95 08/11/22 03:06 36.3 C L 60 16 94/43 L 97 O2 Del Method 08/11/22 11:37 Room Air 08/11/22 11:35 08/11/22 07:20 Room Air 08/11/22 07:01 Room Air 08/11/22 03:06 Room Air Code Status & VTE Plan VTE Prophylaxis Plan VTE Prophylaxis will be ordered: Yes
--- NOTE | 2022-08-11 13:03 | GI REPORT ---
Patient Name: Kristen Garcia Procedure Date: 08/11/2022 11:42 AM Date of : 1955 Admit Type: Inpatient Age: 67 Gender: Female Attending MD: Tommie Edouard MD Procedure: Upper GI endoscopy Providers: Tommie Edouard MD Referring MD: Abby Shipman Indications: Nausea Medicines: See the Anesthesia note for documentation of the administered medications Complications: No immediate complications. Estimated Blood Loss: Estimated blood loss was minimal. Procedure: Pre-Anesthesia Assessment: - Prior to the procedure, a History and Physical was performed, and patient medications, allergies and sensitivities were reviewed. The patient's tolerance of previous anesthesia was reviewed. - The risks and benefits of the procedure and the sedation options and risks were discussed with the patient. All questions were answered and informed consent was obtained. - Patient identification and proposed procedure were verified prior to the procedure by the physician and the nurse. The procedure was verified in the pre-procedure area. - Pre-procedure physical examination revealed no contraindications to sedation. - After reviewing the risks and benefits, the patient was deemed in satisfactory condition to undergo the procedure. After obtaining informed consent, the endoscope was passed under direct vision. Throughout the procedure, the patient's blood pressure, pulse, and oxygen saturations were monitored continuously. The Endoscope was introduced through the mouth, and advanced to the third part of duodenum. The upper GI endoscopy was accomplished without difficulty. The patient tolerated the procedure well. Findings: The esophagus was normal. The entire examined stomach was normal. Biopsies were taken with a cold forceps for Helicobacter pylori testing. Verification of patient identification for the specimen was done by the physician and nurse using the patient's name and medical record number. Estimated blood loss was minimal. The examined duodenum was normal. The cardia and gastric fundus were normal on retroflexion. Impression: - Normal esophagus. - Normal stomach. Biopsied. - Normal examined duodenum. Recommendation: - Await pathology results. - Perform a colonoscopy today. Tommie Edouard M.D. Tommie Edouard MD 08/11/2022 1:02:57 PM This report has been signed electronically. Note Initiated On: 08/11/2022 11:42 AM Number of Addenda: 0 I attest to the content of the Intraoperative Record and orders documented therein, exceptions below {[id number]}
--- NOTE | 2022-08-11 13:04 | GI REPORT ---
Patient Name: Kristen Garcia Procedure Date: 08/11/2022 11:42 AM Date of : 1955 Admit Type: Inpatient Age: 67 Gender: Female Attending MD: Tommie Edouard MD Procedure: Colonoscopy Providers: Tommie Edouard MD Referring MD: Abby Shipman Indications: Rectal bleeding Medicines: See the Anesthesia note for documentation of the administered medications Complications: No immediate complications. Estimated Blood Loss: Estimated blood loss: none. Procedure: Pre-Anesthesia Assessment: - See the other procedure note for documentation of the pre-procedure assessment. After I obtained informed consent, the scope was passed under direct vision. Throughout the procedure, the patient's blood pressure, pulse, and oxygen saturations were monitored continuously. The Loaner was introduced through the anus and advanced to the cecum, identified by appendiceal orifice and ileocecal valve. The colonoscopy was performed without difficulty. The patient tolerated the procedure well. The quality of the bowel preparation was fair. Findings: Hemorrhoids were found on perianal exam. The entire examined colon appeared normal on direct and retroflexion views. Impression: - Preparation of the colon was fair. - Hemorrhoids found on perianal exam. - The entire examined colon is normal on direct and retroflexion views. - No specimens collected. Recommendation: - [facility]. Tommie Edouard M.D. Tommie Edouard MD 08/11/2022 1:04:06 PM This report has been signed electronically. Note Initiated On: 08/11/2022 11:42 AM Number of Addenda: 0 I attest to the content of the Intraoperative Record and orders documented therein, exceptions below {[id number]}
--- NOTE | 2022-08-11 13:05 | Anesthesiology Progress Note ---
Date of Service August 11, 2022 Anesthesia Post Procedure Vital Signs Vital Signs: Temp Pulse Pulse Pulse Resp BP BP 08/11/22 12:54 71 16 133/82 08/11/22 12:39 71 16 92/56 L 08/11/22 11:37 36.5 C 62 18 117/63 08/11/22 11:35 79 08/11/22 07:20 36.7 C 87 16 124/69 08/11/22 07:01 36.7 C 61 18 124/69 08/11/22 03:06 36.3 C L 60 16 94/43 L 08/10/22 23:16 62 08/10/22 22:46 36.6 C 60 18 114/73 08/10/22 21:50 69 08/10/22 19:24 36.9 C 57 L 19 113/70 08/10/22 15:42 36.7 C 65 19 117/70 08/10/22 15:16 63 Pulse Ox O2 Del Method 08/11/22 12:54 92 Room Air 08/11/22 12:39 95 Room Air 08/11/22 11:37 94 Room Air 08/11/22 11:35 08/11/22 07:20 95 Room Air 08/11/22 07:01 95 Room Air 08/11/22 03:06 97 Room Air 08/10/22 23:16 08/10/22 22:46 94 Room Air 08/10/22 21:50 08/10/22 19:24 93 Room Air 08/10/22 15:42 93 Room Air 08/10/22 15:16 Pain Intensity Bilateral Leg: Pain Intensity: 3 Upper Abdomen: Pain Intensity: 4 Transfer of Care Handoff Completed per policy Notes Mental Status: alert / awake / arousable and participated in evaluation Patient Amnestic to Procedure: Yes Nausea / Vomiting: adequately controlled Pain: adequately controlled Airway Patency, RR, SpO2: stable & adequate BP & HR: stable & adequate Hydration State: stable & adequate Anesthetic Complications: no major complications apparent and Pt Satisfied with anesthetic care
--- NOTE | 2022-08-11 17:02 | Discharge Summary ---
Discharge Summary Date of Service August 11, 2022 Notes For Next Care Provider Patient will need follow-up with PCP in 1 week time, possibly will need BMP, patient is started on potassium supplement as her Aldactone has been held upon discharge. Patient will also need to follow-up with cardiology. Patient will need possibly resuming of her Aldactone. Medication Changes From Visit Aldactone has been held upon discharge, to be resumed by PCP or cardiology upon outpatient follow-up. Potassium supplement daily has been added for the time being until Aldactone is resumed. Admission HPI Per Admitting Provider This is a 67-year-old female who has significant past medical history of chronic HFpEF, STEFANY on CPAP, PAF, HTN, RLS, cerebral aneurysm, CKD stage III and iron deficiency who presents to ED secondary to shortness of breath that started at 4 this morning. At 0400 this morning she developed shortness of breath. She was in her normal state of health up until then. She was getting ready for her colonoscopy this morning and had been doing a prep the past 2 days. She drank a whole gallon of prep plus additional water intake. Typically she tries to limit it to 64 oz. She has been taking her torsemide regularly, but last took them yesterday morning. Her baseline weight is 270. Today she was 278lbs. She admits to gaining 8 lbs in two days. She has been having SOB at rest and with exertion. At baseline she does not have any SOB. She further complains of increased swelling, generalized abd pain. She denies any f/c/s, dizziness, lightheaded, chest pain, cough, n/v, abdominal pain, hemoptysis. She has not taken any medications since yesterday morning. She presented today for colonoscopy due to iron deficiency and due to being SOB her procedure was postponed and she was referred to ED. She also did a c scope prep ~ 1 week ago; however due to prep being inadequate she had to repeat. She is currently undergoing EGD/Cscope due to c/o rectal bleeding and iron deficiency. She does not smoke or use alcohol. She does have a medical marijuana card and uses gummies. In ED patient remained hemodynamically stable and was not hypoxic although was visibly tachypneic. Her CBC and CMP was generally unremarkable. Chest x-ray shows mild cardiomegaly with mild pulmonary vascular congestion. Admission Exam Per Admitting Provider General: Sitting in bed, uncomfortable due to dyspnea but not in acute distress, on room air saturating well HEENT: EOMI, JOSE, MMM Chest: Decreased breath sounds bilaterally, no wheezes or crackles appreciated CVS: Regular rate and rhythm, normal heart sounds, no murmur Abdomen: Soft, mild tenderness (chronic per patient), not distended, normal bowel sounds Neuro: Awake, alert, oriented, conversing well, non focal Extremities: No cyanosis, clubbing, mild LE edema Skin: No rash Psych: Calm, cooperative, normal mood. Principal Dx & Hospital Course #1 = Principal Diagnosis (1) Heart failure, diastolic, with acute decompensation: (2) Hypertension: (3) Atrial fibrillation: (4) Sleep apnea: Plan 67-year-old female who has significant past medical history of chronic HFpEF, STEFANY on CPAP, PAF, HTN, RLS, hx of DVT, cerebral aneurysm, CKD stage III and iron deficiency who presented to ED 08/08 secondary to shortness of breath that started at 4am on the day of arrival. She was managed for the following: Acute/Chronic HFpEF DYLAN: Resolved Pt presented with acute dyspnea, 8lb weight gain, edema, has missed 2 doses of diuretic due to planned colonoscopy. TTE noted mild concentric LVH, EF of 65 to 70%, no segmental wall motion abnormalities, no significant valvular pathology. Grade 1 diastolic dysfunction. Status post IV diuresis. Patient currently appears euvolemic on exam. Cardiology on board, recommends resuming of home torsemide 40 mg twice daily, losartan 25 daily, metoprolol 50 mg twice daily, recommends holding Aldactone until outpatient evaluation. Renal function resolved, continue to hold on lactone until outpatient evaluation by PCP or cardiology, BMP in 1 week. Rectal bleeding Iron deficiency She was to undergo EGD/C scope on day of presentation but due to SOB she was unable to and was sent to ED GI on board, underwent EGD scope and colonoscopy today, fairly normal exam, hemorrhoids found on perianal exam, stomach biopsied, patient made aware to follow-up with PCP for final results on biopsy. Patient tolerating diet well after scope, and would like to go home. Class III obesity: Counseled regarding lifestyle modification/need for regular exercise/healthy diet. Paroxysmal AF Reports hx of PAF Continue metoprolol Previously had been on warfarin (but for hx of dvt) [id number] at least 4, ( age, F, HTN, CHF) Reports bleeding issues which is current reason for colonoscopy Currently sinus on tele STEFANY Cpap with O2 at HS RLS Continue requip Medical marijuana user DVT ppx:SCDS for now Dispo: PCU FULL CODE PCP: Renetta Shipman Patient being discharged home with following instructions at the point of discharge: Follow-up with your primary care physician within a week time and likely will be ordered a blood test by the name of BMP. Follow-up with your heart doctor in 2 weeks time upon discharge. Maintain follow-up with your GI doctor for your ongoing management of belly pain. You were found to have acute on chronic heart failure at admission, cardiology evaluated you, your Aldactone has been held upon discharge, it needs to be resumed after you have follow-up with your PCP or cardiology as an outpatient. Because your Aldactone has been stopped, you are started on a small dose of daily potassium supplement. Your medication needs to be reviewed/reevaluated at next PCP or cardiology visit. Take your medications as prescribed. Discharge Exam GENERAL: Alert and oriented x3. NAD, on RA. HEENT: No pallor, no icterus. Pupils equal, round and reactive to light. Oral mucosa moist. NECK: No JVD, no neck masses. HEART: S1 and S2 heard. Regular rate and rhythm. No murmur, no gallop. RESPIRATORY SYSTEM: Normal AP diameter. No accessory muscle use. No wheezing, b/b rales ABDOMEN: Soft, bowel sounds present, + mild tender rt lumbar region , no distention. CENTRAL NERVOUS SYSTEM: No facial droop. Speech is clear. Obeys simple commands. Moves extremities. EXTREMITIES: No edema, no erythema seen. LLE varicose veins noted. Updated Medication List Medication Instructions Recorded Confirmed Type aspirin 81 mg tablet,delayed 81 mg PO QAM 02/09/19 08/08/22 History release fluticasone propionate 50 2 spray intranasal QAM 02/09/19 08/08/22 History mcg/actuation nasal spray,suspension (Flonase Allergy Relief) metoprolol tartrate 50 mg tablet 50 mg PO BID 02/09/19 08/08/22 History ondansetron HCl 4 mg tablet 4 mg PO DIRECTED PRN Nausea 02/09/19 08/08/22 History (Zofran) spironolactone 25 mg tablet 12.5 mg PO BID 02/09/19 08/08/22 History torsemide 20 mg tablet 40 mg PO BID 02/09/19 08/08/22 History ergocalciferol (vitamin D2) 1,250 1,250 mcg PO MONTHLY 04/30/20 08/08/22 History mcg (50,000 unit) capsule (Vitamin D2) losartan 25 mg tablet (Cozaar) 25 mg PO QAM 04/30/20 08/08/22 History albuterol sulfate 90 mcg/actuation 2 inh inhalation Q6H PRN Shortness 07/20/22 08/08/22 History breath activated powder Of Breath inhaler,sensor atorvastatin 10 mg tablet 10 mg PO QAM 07/20/22 08/08/22 History docusate sodium 100 mg capsule 100 mg PO QAM 07/20/22 08/08/22 History (Colace) fluticasone fur. 200 mcg-umeclid 1 inh inhalation QAM 07/20/22 08/08/22 History 62.5 mcg-vilant 25 mcg inhalat.powder (Trelegy Ellipta) gabapentin 100 mg capsule 100 mg PO TID 07/20/22 08/08/22 History ipratropium 0.5 mg-albuterol 3 mg 3 ml inhalation TID 07/20/22 08/08/22 History (2.5 mg base)/3 mL nebulization soln magnesium 500 mg tablet 500 mg PO HS 07/20/22 08/08/22 History meclizine 25 mg tablet 25 mg PO DAILY PRN Dizziness 07/20/22 08/08/22 History ropinirole 2 mg tablet 2 mg PO TID 07/20/22 08/08/22 History trazodone 100 mg tablet 150 mg PO HS 08/08/22 08/08/22 History potassium chloride 20 mEq 20 meq PO DAILY 7 days #7 tabs 08/11/22 Rx tablet,extended release(part/cryst) Hospital Stay Data Consultations 08/08/22 10:36 ED Decision to Admit Stat 08/08/22 11:13 Consult Cardiology Routine 08/08/22 11:14 Consult Gastroenterology Routine Procedures Performed Operation Date: 08/11/22 16:30 Actual Procedures p EGD Biopsy Cytology - Tommie Edouard MD s Colonoscopy - Tommie Edouard MD Diagnostic Imagining Performed 08/08/22 11:10 US venous doppler LE BI Stat Pending Results Patient Have Any Pending Studies at Discharge: No Discharge Instructions Given to Patient (Per Discharging Provider) Follow-up with your primary care physician within a week time and likely will be ordered a blood test by the name of BMP. Follow-up with your heart doctor in 2 weeks time upon discharge. Maintain follow-up with your GI doctor for your ongoing management of belly pain. You were found to have acute on chronic heart failure at admission, cardiology evaluated you, your Aldactone has been held upon discharge, it needs to be resumed after you have follow-up with your PCP or cardiology as an outpatient. Because your Aldactone has been stopped, you are started on a small dose of daily potassium supplement. Your medication needs to be reviewed/reevaluated at next PCP or cardiology visit. Take your medications as prescribed. Total Time Total Time Spent Total Time Spent (In Minutes): 40
== END 2022-08-11 18:03 | disposition home or self-care (01) | DRG 291 ==
LOC: ED 08:50 → SUATTDRO 10:56 → 2S 10:56

== ENCOUNTER 2023-02-16 10:04 | Inpatient (IN) ==
[2023-02-16] MEDS ORDERED: FUROSEMIDE 40 MG/4 ML VIAL IV ONE (11:05)
[2023-02-16 11:06] LABS: Basophils # (auto) 0.04 K/uL (0-0.2); Basophils % (auto) 0.6 %; Eosinophils # (auto) 0.45 K/uL (0-0.50); Eosinophils % (auto) 6.6 %; Hemoglobin 11.1 g/dl (12.0-16.0); Immature Granulocytes # (auto) 0.05 K/uL (0.01-0.20); Immature Granulocytes % (auto) 0.7 %; Lymphocytes # (auto) 1.59 K/uL (1.2-3.4); Lymphocytes % (auto) 23.1 %; Mean Corpuscular Hgb Conc 32.6 g/dL (32.0-36.0); Mean Corpuscular Volume 85.6 fL (80.0-100.0); Monocytes # (auto) 0.56 K/uL (0.11-0.59); Monocytes % (auto) 8.2 %; Neutrophils # (auto) 4.18 K/uL (1.40-6.50); Neutrophils % (auto) 60.8 %; Platelet Count 258 K/uL (130-400); RDW Standard Deviation 47.7 fL (36.4-46.3); Red Blood Count 3.97 M/uL (4.20-5.40); White Blood Count 6.87 K/ul (4.8-10.8)
--- NOTE | 2023-02-16 11:08 | Emergency Department Note ---
Impression & Plan Heart failure, diastolic, with acute decompensation, Shortness of breath, Chest pain ED Provider Note Provider: Aleks Gimenez MD DATE OF SERVICE: 02/16/2023 CHIEF COMPLAINT: Cough, chest pressure, shortness of breath, weight gain HISTORY OF PRESENT ILLNESS: Patient is a 68-year-old female past medical history including paroxysmal atrial fibrillation on anticoagulation, CHF hypertension, N AFLD presenting here today reporting over the past 3 weeks has been having a nagging cough with some chest congestion and sinus congestion. Initially a little bit of right ear pain seen in urgent care and thought she had an ear infection. Received she thinks an antibiotic therapy did not really help much. Here is now feeling better but still with sinus drainage. No significant sore throat. Reports some chest congestion then this morning developed pressure like bricks sitting on her mid to left chest. Denies significant abdominal pain. Does report when she gets in coughing fits she will sometimes have nausea and vomiting. Reports increased weight gain over the past several weeks including some increased welling of the legs. States follows with cardiology but has been compliant with her outpatient diuretics. Reports that she switched to a different dosing sometime back and she thinks this may be promoting things today. does have some cough symptoms but no other recent travel. PAST MEDICAL HISTORY: As noted above MEDICATIONS: Reviewed home medications includes baby aspirin as well as torsemide SOCIAL HISTORY: Non-smoker PHYSICAL EXAM: GENERAL: alert and oriented in no acute distress on stretcher Head: normocephalic and atraumatic EYES: No injection, discharge or icterus. NECK: Trachea midline. ENT: Mucous membranes pink and moist. Pharynx without erythema or exudate. LUNGS: Airway patent. No retractions. Breath sounds clear with crackles in the bases HEART: Regular rate and rhythm. No chest wall tenderness ABDOMEN: Soft and non-tender, without guarding or rebound. SKIN: Acyanotic, warm, dry, without rashes EXTREMITIES: Without tenderness with some slight redness to the bilateral lower legs and 1-2+ edema bilaterally NEUROLOGICAL: No focal deficits. No aphasia. No facial droop or slurred speech. Ambulatory. EK bpm sinus rhythm first-degree AV block. No PVC or PAC. No acute ST segment elevation with nonspecific anterior lead III T wave inversions. QTc 428. CONTINUOUS CARDIAC MONITORING: was ordered and showed a heart rate of 50s-60s bpm in first-degree heart block Patient's laboratory studies and imaging reviewed. Differential includes Reactive airway disease, pneumonia, pneumothorax, COPD, CHF, infections, cardiac ischemia, pulmonary embolism, musculoskeletal, gastrointestinal, as well as other pathologies. IMPRESSION/MEDICAL DECISION MAKING: Patient planes of some chest congestion and mild cough now with chest pressure starting this morning. History of CHF but denies a history of CAD. Not on anticoagulation but is on baby aspirin. Reports history of diastolic CHF with some increased leg swelling. No recent travel. Chest x-ray obtained. Question some component of fluid overload but not hypoxic at rest. Troponin and basic labs as well as again chest x-ray ordered. Given some IV Lasix empirically as she did not take her medicines yet today to promote some diuresis. Does not appear to be in A-fib. Blood work here with a normal initial troponin. Negative COVID flu and RSV testing. Evidence of hepatitis or pancreatitis. Normal renal function and no severe electrolyte abnormality noted. No leuk ocytosis with a mild anemia noted. This is not far off previous. Chest x-ray per my review and radiology without significant pulmonary edema or effusion. No evidence of pneumonia. Discussed with patient and complete a CT of the chest to exclude underlying PE. CTA report without evidence of PE or consolidation (although with some mild bronchial wall thickening noted). Question of some of her shortness of breath may be a bit of fluid overload and again did not receive a small amount of Lasix. Still having ongoing chest pressure. Given her age and risk factors discussed with further observation here at the hospital with her moderate risk heart score. Shared decision making she is agreeable for observation and hospitalist contacted and discussed case with them. Given full dose aspirin here. DIAGNOSIS: Dyspnea, chest pressure, diastolic heart failure DISPOSITION: Hospitalist will evaluate Patient was agreeable with this plan. Past Med/Surg History Medical History (Updated 02/16/23 @ 19:33 by Aleks Gimenez M.D.) Anxiety Atrial fibrillation dx 2017--intermittent--on metoprolol--follows with Dr. Shipman Brain aneurysm s/p repair (2018) CHF (congestive heart failure) follows with S cardio CKD (chronic kidney disease), stage III Depression Dyspnea nebulizer/inhaler daily and prn Fibromyalgia Hiatal hernia History of basal cell carcinoma History of COVID-19 diagnosed 11/2021--mild symptoms, no symptoms now History of migraine Hypertension Morbid obesity with BMI of 45.0-49.9, adult On home oxygen therapy 2L via CPAP at HS Osteoarthritis Restless leg Sleep apnea CPAP with 2L at HS Surgical History Awareness under anesthesia H/O cerebral aneurysm repair 2018 - [facility] - follows [facility] History of basal cell carcinoma (BCC) excision History of benign breast biopsy History of section History of colonoscopy last 2019 @ [facility] History of esophagogastroduodenoscopy (EGD) last 2019 @ [facility] History of exploratory laparotomy History of eyelid surgery History of tonsillectomy History of total abdominal hysterectomy and bilateral salpingo-oophorectomy Slow to wake up after anesthesia Family History (Updated 02/16/23 @ 14:42 by Anita Bassett PA-C) Other Diabetes Heart disease Hypertension No family history of adverse response to anesthesia Social History Smoking Status: Never smoker Second Hand Exposure: No; Do You Dip or Chew Tobacco: No; Tobacco Cessation Education Requested by Patient: No Hx Alcohol Use: No Hx Substance Use: No Preferred Language: Spanish Communication Ability: Effective Bale Opener Required: No Beliefs That Will Affect Care: None Current Living Situation: Spouse Other Information That Helps Us Care for You: No Feels Safe at Home: Yes Safety Concerns: Feels Safe At This Time Assistive Devices: None Allergies Allergies Allergy/AdvReac Type Severity Reaction Status Date / Time sulindac Allergy Intermediate HIVES Verified 08/08/22 08:03 adhesive Allergy Mild "Tape" -- Verified 08/08/22 08:03 blisters cyclobenzaprine Allergy Mild RASH Verified 08/08/22 08:03 acetaminophen [From Tylenol] AdvReac Severe restless Verified 08/08/22 08:03 legs hydrochlorothiazide AdvReac Intermediate COUGH Verified 08/08/22 08:03 triamterene AdvReac Intermediate COUGH Verified 08/08/22 08:03 lisinopril AdvReac Mild Cough Verified 08/08/22 08:03 tetanus toxoid, adsorbed AdvReac Mild IRRITABILIT Verified 08/08/22 08:03 Y Home Meds Home Medications Medication Instructions Recorded Confirmed aspirin 81 mg tablet,delayed 81 mg PO QAM 02/09/19 02/16/23 release fluticasone propionate 50 2 spray intranasal QAM 02/09/19 02/16/23 mcg/actuation nasal spray,suspension (Flonase Allergy Relief) metoprolol tartrate 50 mg tablet 25 mg PO BID 02/09/19 02/16/23 ondansetron HCl 4 mg tablet 4 mg PO DIRECTED PRN Nausea 02/09/19 02/16/23 (Zofran) torsemide 20 mg tablet 20 mg PO UD 02/09/19 02/16/23 ergocalciferol (vitamin D2) 1,250 1,250 mcg PO MONTHLY 04/30/20 02/16/23 mcg (50,000 unit) capsule (Vitamin D2) losartan 25 mg tablet (Cozaar) 12.5 mg PO QAM 04/30/20 02/16/23 albuterol sulfate 90 mcg/actuation 2 inh inhalation Q6H PRN Shortness 07/20/22 02/16/23 breath activated powder Of Breath inhaler,sensor atorvastatin 10 mg tablet 10 mg PO QAM 07/20/22 02/16/23 docusate sodium 100 mg capsule 100 mg PO QAM 07/20/22 02/16/23 (Colace) fluticasone fur. 200 mcg-umeclid 1 inh inhalation QAM 07/20/22 02/16/23 62.5 mcg-vilant 25 mcg inhalat.powder (Trelegy Ellipta) gabapentin 100 mg capsule 100 mg PO TID 07/20/22 02/16/23 ipratropium 0.5 mg-albuterol 3 mg 3 ml inhalation TID 07/20/22 02/16/23 (2.5 mg base)/3 mL nebulization soln magnesium 500 mg tablet 500 mg PO HS 07/20/22 02/16/23 meclizine 25 mg tablet 25 mg PO DAILY PRN Dizziness 07/20/22 02/16/23 ropinirole 2 mg tablet 2 mg PO TID 07/20/22 02/16/23 trazodone 100 mg tablet 150 mg PO HS 08/08/22 02/16/23 Results & Data (ED) Vital Signs Vital Signs - 24 hr 02/16/23 10:10 02/16/23 10:37 02/16/23 10:42 Temperature 36.4 C L Temperature Source Temporal Artery Scan Pulse Rate 67 58 L Pulse Rate [Right Finger] Pulse Rhythm Regular Pulse Rhythm [Right Finger] Pulse Strength Normal Pulse Strength [Right Finger] Respiratory Rate 22 Respiratory Effort / Characteristics Non-Labored Spontaneous Respiratory Depth Normal Respiratory Pattern Regular Blood Pressure 137/79 Blood Pressure [Right Arm] Blood Pressure Mean 98 Blood Pressure Mean [Right Arm] Blood Pressure Position Sitting Blood Pressure Position [Right Arm] Pulse Oximetry 98 97 Oxygen Delivery Method Room Air Room Air Sepsis Recent Fever Within 48 Hours No Sepsis New/Unexplained Change in Mental Status No Sepsis Action Taken by Nursing No Action Required 02/16/23 11:00 02/16/23 11:00 Temperature Temperature Source Pulse Rate Pulse Rate [Right Finger] 60 Pulse Rhythm Pulse Rhythm [Right Finger] Regular Pulse Strength Pulse Strength [Right Finger] Normal Respiratory Rate 18 Respiratory Effort / Characteristics Non-Labored Respiratory Depth Normal Respiratory Pattern Regular Blood Pressure Blood Pressure [Right Arm] 116/56 L Blood Pressure Mean Blood Pressure Mean [Right Arm] 76 Blood Pressure Position Blood Pressure Position [Right Arm] Lying Pulse Oximetry 97 Oxygen Delivery Method Room Air Room Air Sepsis Recent Fever Within 48 Hours Sepsis New/Unexplained Change in Mental Status Sepsis Action Taken by Nursing Laboratory Data 02/16/23 10:34 02/16/23 10:34 Lab Results 02/16/23 02/16/23 02/16/23 Range/Units 10:34 10:34 10:34 WBC 6.87 (4.8-10.8) K/ul RBC 3.97 L (4.20-5.40) M/uL Hgb 11.1 L (12.0-16.0) g/dl Hct 34.0 L (37.0-47.0) % MCV 85.6 (80.0-100.0) fL MCH 28.0 (25.0-34.0) pg MCHC 32.6 (32.0-36.0) g/dL RDW Std Deviation 47.7 H (36.4-46.3) fL RDW Coeff of Anurag 15.0 H (11.5-14.5) % Plt Count 258 (130-400) K/uL MPV 10.0 (9.4-12.4) fL Immature Gran % (Auto) 0.7 % Neut % (Auto) 60.8 % Lymph % (Auto) 23.1 % Allen % (Auto) 8.2 % Eos % (Auto) 6.6 % Baso % (Auto) 0.6 % Neut # (Auto) 4.18 (1.40-6.50) K/uL Lymph # (Auto) 1.59 (1.2-3.4) K/uL Allen # (Auto) 0.56 (0.11-0.59) K/uL Eos # (Auto) 0.45 (0-0.50) K/uL Baso # (Auto) 0.04 (0-0.2) K/uL Immature Gran # (Auto) 0.05 (0.01-0.20) K/uL PT 10.5 (9.0-12.0) Seconds INR 1.0 (0.9-1.1) APTT 24.8 (21.0-31.0) Seconds PTT Ratio 0.9 Sodium 141 (136-145) mmol/L Potassium 3.9 (3.5-5.1) mmol/L Chloride 106 (98-107) mmol/L Carbon Dioxide 29 (21-32) mmol/L Anion Gap 6 (3-11) BUN 19 (6-23) mg/dl Creatinine 1.11 (0.6-1.2) mg/dl Est Cr Clr Drug Dosing 63.6 ml/min Est GFR ( Amer) 59.5 ml/min Est GFR (Non-Af Amer) 51.3 ml/min BUN/Creatinine Ratio 17.1 (10-20) Glucose 86 (70-99(Fasting)) mg/dl Calcium 9.2 (8.6-10.3) mg/dl Total Bilirubin 0.4 (0.2-1.0) mg/dl AST 12 L (13-39) U/L ALT 9 (7-52) U/L Alkaline Phosphatase 112 H (34-104) U/L Troponin I High Sens 3.4 (0-14) pg/ml B-Natriuretic Peptide (0-100) pg/ml Total Protein 6.5 (6.0-8.3) gm/dl Albumin 3.6 (3.4-5.0) gm/dl Globulin 2.9 (2.5-4.0) gm/dl Albumin/Globulin Ratio 1.2 (0.9-2) Lipase 15 (11-82) U/L SARS-CoV-2 (PCR) (Negative) Influenza Type A (PCR) (Neg) Influenza Type B (PCR) (Neg) RSV (RT-PCR) (Neg) 02/16/23 02/16/23 Range/Units 10:35 11:21 WBC (4.8-10.8) K/ul RBC (4.20-5.40) M/uL Hgb (12.0-16.0) g/dl Hct (37.0-47.0) % MCV (80.0-100.0) fL MCH (25.0-34.0) pg MCHC (32.0-36.0) g/dL RDW Std Deviation (36.4-46.3) fL RDW Coeff of Anurag (11.5-14.5) % Plt Count (130-400) K/uL MPV (9.4-12.4) fL Immature Gran % (Auto) % Neut % (Auto) % Lymph % (Auto) % Allen % (Auto) % Eos % (Auto) % Baso % (Auto) % Neut # (Auto) (1.40-6.50) K/uL Lymph # (Auto) (1.2-3.4) K/uL Allen # (Auto) (0.11-0.59) K/uL Eos # (Auto) (0-0.50) K/uL Baso # (Auto) (0-0.2) K/uL Immature Gran # (Auto) (0.01-0.20) K/uL PT (9.0-12.0) Seconds INR (0.9-1.1) APTT (21.0-31.0) Seconds PTT Ratio Sodium (136-145) mmol/L Potassium (3.5-5.1) mmol/L Chloride (98-107) mmol/L Carbon Dioxide (21-32) mmol/L Anion Gap (3-11) BUN (6-23) mg/dl Creatinine (0.6-1.2) mg/dl Est Cr Clr Drug Dosing ml/min Est GFR ( Amer) ml/min Est GFR (Non-Af Amer) ml/min BUN/Creatinine Ratio (10-20) Glucose (70-99(Fasting)) mg/dl Calcium (8.6-10.3) mg/dl Total Bilirubin (0.2-1.0) mg/dl AST (13-39) U/L ALT (7-52) U/L Alkaline Phosphatase (34-104) U/L Troponin I High Sens (0-14) pg/ml B-Natriuretic Peptide 26 (0-100) pg/ml Total Protein (6.0-8.3) gm/dl Albumin (3.4-5.0) gm/dl Globulin (2.5-4.0) gm/dl Albumin/Globulin Ratio (0.9-2) Lipase (11-82) U/L SARS-CoV-2 (PCR) NEGATIVE (Negative) Influenza Type A (PCR) Negative (Neg) Influenza Type B (PCR) Negative (Neg) RSV (RT-PCR) Negative (Neg) Administered Medications Heparin Sodium (Porcine) (Heparin Sod 5,000 Unit/0.5 Ml Vial) 5,000 units SQ Q8 ANTIONETTE Stop: 03/18/23 14:29 Last Admin: 02/16/23 16:30 Dose: Not Given Documented By: CA Ropinirole HCl (Ropinirole Hcl 2 Mg Tablet) 2 mg PO TID ANTIONETTE Stop: 03/18/23 20:59 Last Admin: 02/16/23 17:39 Dose: 2 mg Documented By: CA Discontinued Medications Aspirin (Aspirin Chew 324 Mg) 324 mg PO NOW STA Stop: 02/16/23 13:28 Last Admin: 02/16/23 13:56 Dose: 324 mg Documented By: SLB Furosemide (Furosemide 40 Mg/4 Ml Vial) 40 mg IV ONE ONE Stop: 02/16/23 11:06 Last Admin: 02/16/23 11:52 Dose: 40 mg Documented By: AP Ioversol (Optiray 320 500ml) 116 ml IV ONCE ONE Stop: 02/16/23 12:44 Last Admin: 02/16/23 12:43 Dose: 116 ml Documented By: EDK Imaging Data Radiologist's Impression: Chest X-Ray 02/16/23 10:33 XR chest 1V portable CLINICAL HISTORY: Chest pain, nonspecific COMPARISON STUDY: Chest CT January 12, 2021. Chest radiograph August 08, 2022. FINDINGS: Left shoulder arthroplasty is incidentally noted. There is no pneumothorax or pleural effusion. Cardiomegaly is unchanged. No evidence for pulmonary edema. No consolidation is identified. IMPRESSION: No acute cardiopulmonary findings. Stable cardiomegaly. ACT 112: Negative or not required by law. Electronically signed by: David Starks M.D. 02/16/2023 11:21 AM Chest CTA 02/16/23 11:50 CT ANGIOGRAPHY OF THE CHEST, PULMONARY EMBOLUS PROTOCOL CLINICAL HISTORY: Shortness of breath. Chest pressure. Evaluate for pulmonary embolus. COMPARISON STUDY: Chest CT January 12, 2021 chest radiograph performed earlier today. TECHNIQUE: Following IV administration of 116 mL of Optiray, helical axial images of the chest were obtained utilizing the pulmonary embolus protocol. Maximal intensity projections and sagittal and coronal reformats were viewed on an independent 3D workstation. IV contrast was administered without complication. Automated exposure control was utilized for the study. A dose lowering technique was utilized adhering to the principles of ALARA. CT DOSE: 777.67 mGy.cm FINDINGS: No pulmonary emboli are identified. There is no thoracic aortic dissection. Moderate cardiomegaly is noted. There is no thoracic lymphadenopathy. No enlarged axillary, mediastinal or hilar lymph nodes are present. Groundglass opacities within lungs favor atelectasis. There is no consolidation to suggest pneumonia. Mild bronchial wall thickening is present. No acute fractures within the bony thorax are noted. Left shoulder arthroplasty is incidentally noted. IMPRESSION: 1. No pulmonary emboli identified. 2. No consolidation to suggest pneumonia. 3. Mild bronchial wall thickening. 4. Moderate cardiomegaly. ACT 112: Negative or not required by law. Electronically signed by: David Starks M.D. 02/16/2023 1:02 PM Discharge Plan Visit Data Chief Complaint: Shortness of Breath/Dyspnea Stated Complaint: SOB ED Provider: Aleks Gimenez Discharge Problem: Heart failure, diastolic, with acute decompensation, Shortness of breath, Chest pain Patient Disposition: Admitted As Inpatient Discharge Instructions Interventions: ED Discharge Assessment Last Done: 02/16/23 13:43
--- NOTE | 2023-02-16 11:22 | XRay Report ---
XR chest 1V portable CLINICAL HISTORY: Chest pain, nonspecific COMPARISON STUDY: Chest CT January 12, 2021. Chest radiograph August 08, 2022. FINDINGS: Left shoulder arthroplasty is incidentally noted. There is no pneumothorax or pleural effus ion. Cardiomegaly is unchanged. No evidence for pulmonary edema. No consolidation is identified. IMPRESSION: No acute cardiopulmonary findings. Stable cardiomegaly. ACT 112: Negative or not required by law. Electronically signed by: David Starks M.D. 02/16/2023 11:21 AM
[2023-02-16 11:30] LABS: Troponin I High Sensitivity 3.4 pg/ml (0-14)
[2023-02-16 11:31] LABS: Albumin Globulin Ratio 1.2 (0.9-2); Albumin Level 3.6 gm/dl (3.4-5.0); BUN Creatinine Ratio 17.1 (10-20); Bilirubin,Total 0.4 mg/dl (0.2-1.0); Calcium 9.2 mg/dl (8.6-10.3); Creatinine Clr Calc Pharmacy 63.6 ml/min; Est GFR (African American) 59.5 ml/min; Est GFR (Non-African American) 51.3 ml/min; Globulin 2.9 gm/dl (2.5-4.0); Potassium 3.9 mmol/L (3.5-5.1); Total Protein 6.5 gm/dl (6.0-8.3)
[2023-02-16 11:35] LABS: Influenza A virus by PCR Negative (Neg); Influenza B virus by PCR Negative (Neg); RSV by PCR Negative (Neg); SARS CoV2 RNA(COVID-19) Ceph NEGATIVE (Negative)
[2023-02-16 11:48] LABS: Partial Thromboplastin Ratio 0.9; Partial Thromboplastin Time 24.8 Seconds (21.0-31.0); Prothrombin Time 10.5 Seconds (9.0-12.0)
[2023-02-16] MEDS ORDERED: OPTIRAY 320 500ml IV ONE (12:43)
--- NOTE | 2023-02-16 13:03 | CT Scan Report ---
CT ANGIOGRAPHY OF THE CHEST, PULMONARY EMBOLUS PROTOCOL CLINICAL HISTORY: Shortness of breath. Chest pressure. Evaluate for pulmonary embolus. COMPARISON STUDY: Chest CT January 12, 2021 chest radiograph performed earlier today. TECHNIQUE: Following IV administration of 116 mL of Optiray, helical axial images of the chest were o btained utilizing the pulmonary embolus protocol. Maximal intensity projections and sagittal and cor onal reformats were viewed on an independent 3D workstation. IV contrast was administered without co mplication. Automated exposure control was utilized for the study. A dose lowering technique was ut ilized adhering to the principles of ALARA. CT DOSE: 777.67 mGy.cm FINDINGS: No pulmonary emboli are identified. There is no thoracic aortic dissection. Moderate cardi omegaly is noted. There is no thoracic lymphadenopathy. No enlarged axillary, mediastinal or hilar ly mph nodes are present. Groundglass opacities within lungs favor atelectasis. There is no consolidatio n to suggest pneumonia. Mild bronchial wall thickening is present. No acute fractures within the bony thorax are noted. Left shoulder arthroplasty is incidentally noted. IMPRESSION: 1. No pulmonary emboli identified. 2. No consolidation to suggest pneumonia. 3. Mild bronchial wall thickening. 4. Moderate cardiomegaly. ACT 112: Negative or not required by law. Electronically signed by: David Starks M.D. 02/16/2023 1:02 PM
[2023-02-16] MEDS ORDERED: ASPIRIN CHEW 324 MG PO STA (13:27)
--- NOTE | 2023-02-16 13:44 | History & Physical Report ---
Date of Service February 16, 2023 Assessment & Plan (1) Chest pain: Plan: This is a 68-year-old female with PMH of diastolic heart failure, paroxysmal atrial fibrillation, hypertension, hyperlipidemia, severe STEFANY with nocturnal hypoxemia, NAFLD the, CKD 3, fibromyalgia, mood disorder, aspirin intolerance and other medical problems listed below who presents with chest pain and decompensated heart failure. Left sided CP woke her up this AM, has since resolved EKG with SR with 1st degree AV block. No acute ST changes but nonspecific T wave changes in anterior leads, initial HS troponin negative CTA chest without e/o PE, no consolidation to suggest PNA, moderate cardiomegaly Echo from Aug 2022 with preserved EF, grade 1 diastolic dysfunction Trend troponin, monitor on tele, continue aspirin, statin, beta mitchell (2) Lower extremity edema: (3) Heart failure, diastolic, with acute decompensation: Plan: Worsening orthopnea, BLE edema since Torsemide changed by PCP a few weeks ago from torsemide 20mg BID down to 20mg BID MWF alternating with 20mg daily other days Given 40mg IV Lasix in ED, monitor daily weight, strict I&Os, low sodium diet Routine cards consult for help with diuretic mgmt. Ordering 40mg IV Lasix daily for now (4) Hypertension: Plan: BP lower end of normal. [facility], on Lopressor 25mg BID, losartan 12.5mg daily (5) CKD (chronic kidney disease), stage III: Plan: Baseline Cr ~1.2. Monitor with daily BMP (6) Paroxysmal atrial fibrillation: Plan: Continue BID Lopressor. No longer anticoagulated due to rectal bleeding in the past (7) Restless leg syndrome: Plan: Continue home ropinirole (8) Sleep apnea: Plan: CPAP with 2L O2 bled through HS DVT Ppx: SQ heparin Code status: FULL PCP: March Dispo: Admitted to PCU Patient seen in collaboration with Dr. Arias. Please see addendum. I spent a total of 80 minutes coordinating, documenting, and providing care for this patient excluding time spent in the performance of separately billed services. History of Present Illness Chief Complaint: CP Primary Care Provider: NO PCP This is a 68-year-old female with PMH of diastolic heart failure, paroxysmal atrial fibrillation, hypertension, hyperlipidemia, severe STEFANY with nocturnal hypoxemia, NAFLD the, CKD 3, fibromyalgia, mood disorder, aspirin intolerance and other medical problems listed below who presents with chest pain starting this morning. Woke up with pain on the left side of her chest under her breast with associated shortness of breath. Pain felt like "a ton of bricks" on her chest. Resolved by the time she presented in the ED. States she had diuretics adjusted a few weeks ago in clinic and ever since then, has felt has a history of diastolic heart failure with most recent echo from January 2021 with EF 55-59% and mild MR. Follows with Dr. Shipman who had reduced torsemide to 20mg BID MWF and 20mg daily all other days back in late 2021 due to evidence of volume depletion on labwork per chart review. Patient then developed some leg swelling and PCP note from December 2022 states that patient had been taking torsemide 40mg daily up until a few weeks ago, when he changed dose to 40 mg MWF and 20mg all other days. Since then, patient has noted increased leg swelling worsened orthopnea. States she gained weight over the past few days despite taking medication. Has been feeling more fatigued lately. States she is using her CPAP with O2 bled through HS as instructed. Denies any fever or chills. No lig htheadedness, palpitations, wheezing, nausea, vomiting, abdominal pain, dysuria, diarrhea or constipation. Allergies Allergy/AdvReac Type Severity Reaction Status Date / Time sulindac Allergy Intermediate HIVES Verified 08/08/22 08:03 adhesive Allergy Mild "Tape" -- Verified 08/08/22 08:03 blisters cyclobenzaprine Allergy Mild RASH Verified 08/08/22 08:03 acetaminophen [From Tylenol] AdvReac Severe restless Verified 08/08/22 08:03 legs hydrochlorothiazide AdvReac Intermediate COUGH Verified 08/08/22 08:03 triamterene AdvReac Intermediate COUGH Verified 08/08/22 08:03 lisinopril AdvReac Mild Cough Verified 08/08/22 08:03 tetanus toxoid, adsorbed AdvReac Mild IRRITABILIT Verified 08/08/22 08:03 Y Home Medications Medication Instructions Recorded Confirmed Type aspirin 81 mg tablet,delayed 81 mg PO QAM 02/09/19 02/16/23 History release fluticasone propionate 50 2 spray intranasal QAM 02/09/19 02/16/23 History mcg/actuation nasal spray,suspension (Flonase Allergy Relief) metoprolol tartrate 50 mg tablet 25 mg PO BID 02/09/19 02/16/23 History ondansetron HCl 4 mg tablet 4 mg PO DIRECTED PRN Nausea 02/09/19 02/16/23 History (Zofran) torsemide 20 mg tablet 20 mg PO UD 02/09/19 02/16/23 History ergocalciferol (vitamin D2) 1,250 1,250 mcg PO MONTHLY 04/30/20 02/16/23 History mcg (50,000 unit) capsule (Vitamin D2) losartan 25 mg tablet (Cozaar) 12.5 mg PO QAM 04/30/20 02/16/23 History albuterol sulfate 90 mcg/actuation 2 inh inhalation Q6H PRN Shortness 07/20/22 02/16/23 History breath activated powder Of Breath inhaler,sensor atorvastatin 10 mg tablet 10 mg PO QAM 07/20/22 02/16/23 History docusate sodium 100 mg capsule 100 mg PO QAM 07/20/22 02/16/23 History (Colace) fluticasone fur. 200 mcg-umeclid 1 inh inhalation QAM 07/20/22 02/16/23 History 62.5 mcg-vilant 25 mcg inhalat.powder (Trelegy Ellipta) gabapentin 100 mg capsule 100 mg PO TID 07/20/22 02/16/23 History ipratropium 0.5 mg-albuterol 3 mg 3 ml inhalation TID 07/20/22 02/16/23 History (2.5 mg base)/3 mL nebulization soln magnesium 500 mg tablet 500 mg PO HS 07/20/22 02/16/23 History meclizine 25 mg tablet 25 mg PO DAILY PRN Dizziness 07/20/22 02/16/23 History ropinirole 2 mg tablet 2 mg PO TID 07/20/22 02/16/23 History trazodone 100 mg tablet 150 mg PO HS 08/08/22 02/16/23 History Past Med/Surg History Medical History (Updated 02/16/23 @ 19:33 by Aleks Gimenez M.D.) Anxiety Atrial fibrillation dx 2017--intermittent--on metoprolol--follows with Dr. Shipman Brain aneurysm s/p repair (2018) CHF (congestive heart failure) follows with [facility] cardio CKD (chronic kidney disease), stage III Depression Dyspnea nebulizer/inhaler daily and prn Fibromyalgia Hiatal hernia History of basal cell carcinoma History of COVID-19 diagnosed 11/2021--mild symptoms, no symptoms now History of migraine Hypertension Morbid obesity with BMI of 45.0-49.9, adult On home oxygen therapy 2L via CPAP at HS Osteoarthritis Restless leg Sleep apnea CPAP with 2L at HS Surgical History Awareness under anesthesia H/O cerebral aneurysm repair 2018 - [facility] [place] - follows [facility] neurosurgery History of basal cell carcinoma (BCC) excision History of benign breast biopsy History of section History of colonoscopy last [address] [facility] History of esophagogastroduodenoscopy (EGD) last [address] [facility] History of exploratory laparotomy History of eyelid surgery History of tonsillectomy History of total abdominal hysterectomy and bilateral salpingo-oophorectomy Slow to wake up after anesthesia Family History (Updated 02/16/23 @ 14:42 by Anita Bassett PA-C) Other Diabetes Heart disease Hypertension No family history of adverse response to anesthesia Social History Smoking Status: Never smoker Second Hand Exposure: No; Do You Dip or Chew Tobacco: No; Tobacco Cessation Education Requested by Patient: No Hx Alcohol Use: No Hx Substance Use: No Preferred Language: Lao Communication Ability: Effective Baker Apprentice Required: No Beliefs That Will Affect Care: None Current Living Situation: Spouse Other Information That Helps Us Care for You: No Feels Safe at Home: Yes Safety Concerns: Feels Safe At This Time Assistive Devices: None Review of Systems Review of Systems: At least ten systems reviewed and negative except as noted in the HPI. Physical Exam Physical Exam: General Appearance: WD/WN, vitals as above, NAD, sitting up in bed, pleasant, conversing easily, morbidly obese Head: normocephalic, atraumatic Eyes: normal inspection, PERRL, conjunctivae normal, anicteric sclerae ENT: external ear and nose normal, oropharynx normal Neck: normal visual inspection, trachea midline, no thyromegaly Respiratory: increased respiratory effort, lungs clear to auscultation, no wheeze, rales, rhonchi. No accessory muscle use Cardiovascular: regular rate, rhythm, normal peripheral pulses, 1-2+ BLE edema. Vessels: + JVD Chest: normal inspection of chest Abdomen/GI: normal bowel sounds, soft, nontender, no hepatosplenomegaly Extremities/Musculoskeletal: no cyanosis or clubbing, extremities motor strength 5/5 Neurologic: PERRL, EOMI, accommodation nl, no face palsy, no dysarthria, CN's II-XI intact bilaterally and moves all extremities Psychiatric: A+Ox3, euthymic affect Skin: no rashes, normal color, warm/dry Results & Data Results & Data Vital Signs (Past 12 Hours) Vital Signs Temp Pulse Pulse Resp BP BP Pulse Ox 02/16/23 11:00 60 18 116/56 L 97 02/16/23 11:00 02/16/23 10:42 97 02/16/23 10:37 58 L 02/16/23 10:10 36.4 C L 67 22 137/79 98 O2 Del Method 02/16/23 11:00 Room Air 02/16/23 11:00 Room Air 02/16/23 10:42 Room Air 02/16/23 10:37 02/16/23 10:10 Room Air Laboratory Results Short CBC 02/16/23 Range/Units 10:34 WBC 6.87 (4.8-10.8) K/ul Hgb 11.1 L (12.0-16.0) g/dl Hct 34.0 L (37.0-47.0) % Plt Count 258 (130-400) K/uL BMP 02/16/23 10:34 Sodium 141 Potassium 3.9 Chloride 106 Carbon Dioxide 29 BUN 19 Creatinine 1.11 Glucose 86 Calcium 9.2 Liver Function 02/16/23 Range/Units 10:34 Total Bilirubin 0.4 (0.2-1.0) mg/dl AST 12 L (13-39) U/L ALT 9 (7-52) U/L Alkaline Phosphatase 112 H (34-104) U/L Albumin 3.6 (3.4-5.0) gm/dl Diagnostic Findings Chest X-Ray 02/16/23 10:33 XR chest 1V portable CLINICAL HISTORY: Chest pain, nonspecific COMPARISON STUDY: Chest CT January 12, 2021. Chest radiograph August 08, 2022. FINDINGS: Left shoulder arthroplasty is incidentally noted. There is no pneumothorax or pleural effusion. Cardiomegaly is unchanged. No evidence for pulmonary edema. No consolidation is identified. IMPRESSION: No acute cardiopulmonary findings. Stable cardiomegaly. ACT 112: Negative or not required by law. Electronically signed by: David Starks M.D. 02/16/2023 11:21 AM Chest CTA 02/16/23 11:50 CT ANGIOGRAPHY OF THE CHEST, PULMONARY EMBOLUS PROTOCOL CLINICAL HISTORY: Shortness of breath. Chest pressure. Evaluate for pulmonary embolus. COMPARISON STUDY: Chest CT January 12, 2021 chest radiograph performed earlier today. TECHNIQUE: Following IV administration of 116 mL of Optiray, helical axial images of the chest were obtained utilizing the pulmonary embolus protocol. Maximal intensity projections and sagittal and coronal reformats were viewed on an independent 3D workstation. IV contrast was administered without complication. Automated exposure control was utilized for the study. A dose lowering technique was utilized adhering to the principles of ALARA. CT DOSE: 777.67 mGy.cm FINDINGS: No pulmonary emboli are identified. There is no thoracic aortic dissection. Moderate cardiomegaly is noted. There is no thoracic lymphadenopathy. No enlarged axillary, mediastinal or hilar lymph nodes are present. Groundglass opacities within lungs favor atelectasis. There is no consolidation to suggest pneumonia. Mild bronchial wall thickening is present. No acute fractures within the bony thorax are noted. Left shoulder arthroplasty is incidentally noted. IMPRESSION: 1. No pulmonary emboli identified. 2. No consolidation to suggest pneumonia. 3. Mild bronchial wall thickening. 4. Moderate cardiomegaly. ACT 112: Negative or not required by law. Electronically signed by: David Starks M.D. 02/16/2023 1:02 PM ECG Additional Comments: EKG reviewed- SR with 1st degree AV block. No acute ST changes but nonspecific T wave changes in anterior leads Code Status & VTE Plan VTE Prophylaxis Plan VTE Prophylaxis will be ordered: Yes Supervising Physician Co-Signing Physician Notes Patient seen and examined independently. Chart reviewed. Case discussed with PARKER Here with acute on chronic diastolic CHF. Recently torsemide dose reduced and with increased weight gain, leg swelling. Continue IV lasix while here. Cardiology consult for diuretic optimization. Anticipate discharge in next 48 hours
[2023-02-16] MEDS ORDERED: POLYETHYLENE (MIRALAX) 17 GM PACK PO PRN (13:54)
[2023-02-16] MEDS ORDERED: ACETAMINOPHEN 325 MG TAB PO PRN (13:54)
[2023-02-16] MEDS ORDERED: MECLIZINE HCL 25 MG TAB PO PRN (15:08)
[2023-02-16] MEDS ORDERED: ALBUTEROL HFA 8 GM INHALER INH PRN (15:14)
[2023-02-16] MEDS: HEPARIN SOD 5,000 UNIT/0.5 ML VIAL SQ SCH ×2 (16:30→20:38)
[2023-02-16] MEDS ORDERED: TORSEMIDE 20 MG TAB PO SCH (17:00)
[2023-02-16] MEDS: ALBUT/IPRATROP 3MG/0.5MG NEB 3 ML VIAL INH SCH (19:54)
[2023-02-16] MEDS: traZODone HCL 50 MG TAB PO SCH (20:36)
[2023-02-16] MEDS: MAGNESIUM OXIDE 400 MG TAB PO SCH (20:37)
[2023-02-16] MEDS: GABAPENTIN 100 MG CAP PO SCH (20:37)
[2023-02-16] MEDS: METOPROLOL TARTRATE 25 MG TAB PO SCH (20:38)
[2023-02-16] MEDS ORDERED: rOPINIRole HCL 2 MG TABLET PO SCH ×2 (21:00→21:15)
[2023-02-16] MEDS ORDERED: diazePAM 2 MG TABLET PO ONE (22:41)
[2023-02-17] MEDS: HEPARIN SOD 5,000 UNIT/0.5 ML VIAL SQ SCH ×3 (05:52→22:19)
--- NOTE | 2023-02-17 06:07 | Electrocardiogram Report ---
Test Reason : Blood Pressure : / mmHG Vent. Rate : 060 BPM Atrial Rate : 060 BPM P-R Int : 210 ms QRS Dur : 080 ms QT Int : 428 ms P-R-T Axes : 045 046 018 degrees QTc Int : 428 ms Poor data quality, interpretation may be adversely affected Sinus rhythm with 1st degree A-V block Low voltage QRS T wave abnormality, consider anterior ischemia Abnormal ECG When compared with ECG of 09-AUG-2022 06:14, NV interval has increased Confirmed by Raudel Gregory ([id number]) on 02/17/2023 6:07:07 AM Referred By: REFERRED SELF Confirmed By:Raudel Gregory
[2023-02-17 06:40] LABS: Hematocrit (blood only) 32.9 % (37.0-47.0); Hemoglobin 10.5 g/dl (12.0-16.0); Mean Corpuscular Hemoglobin 27.8 pg (25.0-34.0); Mean Corpuscular Hgb Conc 31.9 g/dL (32.0-36.0); Mean Platelet Volume 9.8 fL (9.4-12.4); Platelet Count 246 K/uL (130-400); RDW Coefficient of Variation 15.3 % (11.5-14.5); Red Blood Count 3.78 M/uL (4.20-5.40); White Blood Count 6.25 K/ul (4.8-10.8)
[2023-02-17 07:10] LABS: BUN Creatinine Ratio 15.8 (10-20); Calcium 8.6 mg/dl (8.6-10.3); Creatinine Clr Calc Pharmacy 58.3 ml/min; Est GFR (African American) 54.2 ml/min; Est GFR (Non-African American) 46.7 ml/min; Magnesium 2.3 mg/dl (1.7-2.4); Potassium 4.4 mmol/L (3.5-5.1)
[2023-02-17] MEDS: ALBUT/IPRATROP 3MG/0.5MG NEB 3 ML VIAL INH SCH (07:19)
[2023-02-17] MEDS: rOPINIRole HCL 2 MG TABLET PO SCH ×3 (08:11→20:13)
[2023-02-17] MEDS: DOCUSATE SODIUM 100 MG CAP PO SCH (08:12)
[2023-02-17] MEDS: ATORVASTATIN 10 MG TAB PO SCH (08:12)
[2023-02-17] MEDS: ASPIRIN 81 MG ECTAB PO SCH (08:12)
[2023-02-17] MEDS: UMECLIDINIUM/VILANTEROL 62.5/25MCG 7 PUFFS/INHALER INH SCH (08:13)
[2023-02-17] MEDS: METOPROLOL TARTRATE 25 MG TAB PO SCH ×2 (08:13→20:13)
[2023-02-17] MEDS: FLUTICASONE PROPIONATE NA SPR 16 GM BTL NAE SCH (08:13)
[2023-02-17] MEDS: FLUTICASONE FUROATE 200MCG 14 PUFFS/INHALER INH SCH (08:14)
[2023-02-17] MEDS: GABAPENTIN 100 MG CAP PO SCH ×3 (08:14→20:13)
[2023-02-17] MEDS: LOSARTAN POTASSIUM 25 MG TAB PO SCH (08:14)
[2023-02-17] MEDS: FUROSEMIDE 40 MG/4 ML VIAL IV SCH (08:15)
[2023-02-17] MEDS ORDERED: TORSEMIDE 20 MG TAB PO SCH (09:00)
[2023-02-17] MEDS ORDERED: NON-FORMULARY MEDICATION (Fluticasone-Umeclidin-Vilanter [Trelegy Ellipta] 200-62.5-25 mcg INH SCH (09:00)
[2023-02-17] MEDS ORDERED: ALBUT/IPRATROP 3MG/0.5MG NEB 3 ML VIAL INH PRN (11:55)
--- NOTE | 2023-02-17 15:44 | Hospitalist Progress Note ---
Date of Service February 17, 2023 Assessment & Plan (1) Chest pain: Plan: This is a 68-year-old female with PMH of diastolic heart failure, paroxysmal atrial fibrillation, hypertension, hyperlipidemia, severe STEFANY with nocturnal hypoxemia, NAFLD the, CKD 3, fibromyalgia, mood disorder, aspirin intolerance and other medical problems listed below who presents with chest pain and decompensated heart failure. Left sided CP woke her up, has since resolved EKG with SR with 1st degree AV block. No acute ST changes but nonspecific T wave changes in anterior leads, initial HS troponin negative CTA chest without e/o PE, no consolidation to suggest PNA, moderate cardiomegaly Echo from Aug 2022 with preserved EF, grade 1 diastolic dysfunction Trend troponin, monitor on tele, continue aspirin, statin, beta mitchell (2) Lower extremity edema: (3) Heart failure, diastolic, with acute decompensation: Plan: Worsening orthopnea, BLE edema since Torsemide changed by PCP a few weeks ago from torsemide 20mg BID down to 20mg BID MWF alternating with 20mg daily other days Given 40mg IV Lasix in ED, monitor daily weight, strict I&Os, low sodium diet Routine cards consult for help with diuretic mgmt. Ordering 40mg IV Lasix daily for now Repeat echo obtained -normal LV wall thickness. No regional wall motion abnormalities noted. EF 65 to 70%. Grade 1 diastolic dysfunction. No significant valvular pathology. 02/17 -patient feels improved. Continue with diuresis. Monitor I's and O's. Monitor electrolytes, BMP mag phos ordered for tomorrow morning. Cardiology following (4) Hypertension: Plan: BP lower end of normal. Continue to [facility], on Lopressor 25mg BID, losartan 12.5mg daily (5) CKD (chronic kidney disease), stage III: Plan: Baseline Cr ~1.2. Monitor with daily BMP (6) Paroxysmal atrial fibrillation: Plan: Continue BID Lopressor. No longer anticoagulated due to rectal bleeding in the past (7) Restless leg syndrome: Plan: Continue home ropinirole (8) Sleep apnea: Plan: CPAP with 2L O2 bled through HS DVT Ppx: SQ heparin Code status: FULL PCP: Dr. Pizano Dispo: Admitted to PCU Admission and Anticipated Discharge Date Admission Date: February 16, 2023 Subjective Pt seen in follow up of chest pain, chf exacerbation Currently sitting up in bed, in no acute distress, reports feeling much better since yesterday Reports pressure on her chest has relieved She does report lower extremity edema, feels that improved Overall however still short of breath, and feels edematous and weak She also reports unintentional weight loss overall, in the past several months Review of Systems Review of Systems: All systems reviewed & are unremarkable except as noted in Subjective Physical Exam Physical Exam: General Appearance: morbidly obese F in NAD, sitting up in bed, pleasant Head: normocephalic, atraumatic Eyes:normal inspection, PERRL ENT: external ear and nose normal, oropharynx normal Neck:thick Respiratory:No accessory muscle use. Mild crackles at bases, no wheezing. Cardiovascular: regular rate, rhythm, normal peripheral pulses, 1-2+ BLE edema Chest: normal inspection of chest Abdomen/GI: normal bowel sounds, soft, nontender Extremities/Musculoskeletal: moves extremities Neurologic: PERRL, EOMI, no face palsy, no dysarthria, moves extremities Psychiatric:A+Ox3, euthymic affect Skin: warm/dry Results & Data Results & Data Vital Signs (Past 12 Hours) Vital Signs Temp Pulse Pulse Resp BP Pulse Ox Pulse Ox 02/17/23 15:16 36.5 C 69 18 132/82 94 02/17/23 15:00 63 02/17/23 13:54 97 02/17/23 11:26 36.6 C 68 16 118/55 L 93 02/17/23 07:53 36.6 C 73 18 133/58 L 93 02/17/23 07:00 69 02/17/23 07:19 76 16 92 02/17/23 03:48 36.8 C 60 18 111/63 98 O2 Del Method O2 Del Method 02/17/23 15:16 Room Air 02/17/23 15:00 02/17/23 13:54 Room Air 02/17/23 11:26 Room Air 02/17/23 07:53 Room Air 02/17/23 07:00 02/17/23 07:19 Room Air 02/17/23 03:48 CPAP Laboratory Results 02/17/23 02/17/23 02/16/23 Range/Units 06:26 06:26 22:40 WBC 6.25 (4.8-10.8) K/ul RBC 3.78 L (4.20-5.40) M/uL Hgb 10.5 L (12.0-16.0) g/dl Hct 32.9 L (37.0-47.0) % MCV 87.0 (80.0-100.0) fL MCH 27.8 (25.0-34.0) pg MCHC 31.9 L (32.0-36.0) g/dL RDW Std Deviation 49.0 H (36.4-46.3) fL RDW Coeff of Anurag 15.3 H (11.5-14.5) % Plt Count 246 (130-400) K/uL MPV 9.8 (9.4-12.4) fL Sodium 142 (136-145) mmol/L Potassium 4.4 (3.5-5.1) mmol/L Chloride 105 (98-107) mmol/L Carbon Dioxide 32 (21-32) mmol/L Anion Gap 5 (3-11) BUN 19 (6-23) mg/dl Creatinine 1.20 (0.6-1.2) mg/dl Est Cr Clr Drug Dosing 58.3 ml/min Est GFR ( Amer) 54.2 ml/min Est GFR (Non-Af Amer) 46.7 ml/min BUN/Creatinine Ratio 15.8 (10-20) Glucose 91 (70-99(Fasting)) mg/dl Calcium 8.6 (8.6-10.3) mg/dl Magnesium 2.3 (1.7-2.4) mg/dl Troponin I High Sens 5.0 (0-14) pg/ml 02/16/23 Range/Units 16:16 WBC (4.8-10.8) K/ul RBC (4.20-5.40) M/uL Hgb (12.0-16.0) g/dl Hct (37.0-47.0) % MCV (80.0-100.0) fL MCH (25.0-34.0) pg MCHC (32.0-36.0) g/dL RDW Std Deviation (36.4-46.3) fL RDW Coeff of Anurag (11.5-14.5) % Plt Count (130-400) K/uL MPV (9.4-12.4) fL Sodium (136-145) mmol/L Potassium (3.5-5.1) mmol/L Chloride (98-107) mmol/L Carbon Dioxide (21-32) mmol/L Anion Gap (3-11) BUN (6-23) mg/dl Creatinine (0.6-1.2) mg/dl Est Cr Clr Drug Dosing ml/min Est GFR ( Amer) ml/min Est GFR (Non-Af Amer) ml/min BUN/Creatinine Ratio (10-20) Glucose (70-99(Fasting)) mg/dl Calcium (8.6-10.3) mg/dl Magnesium (1.7-2.4) mg/dl Troponin I High Sens 3.7 (0-14) pg/ml Medications Administered Current Inpatient Medications Acetaminophen (Acetaminophen 325 Mg Tab) 650 mg PO Q4H PRN PRN Reason: Pain or Fever Stop: 03/18/23 13:53 Albuterol (Albuterol Hfa 8 Gm Inhaler) 2 puffs INH Q6H PRN PRN Reason: Shortness Of Breath Stop: 03/18/23 15:13 Albuterol (Albut/Ipratrop 3mg/0.5mg Neb 3 Ml Vial) 3 ml INH TIDR PRN; Protocol PRN Reason: Wheezing Stop: 03/18/23 18:59 Aspirin (Aspirin 81 Mg Ectab) 81 mg PO QAM [facility] Stop: 03/19/23 08:59 Last Admin: 02/17/23 08:12 Dose: 81 mg Atorvastatin Calcium (Atorvastatin 10 Mg Tab) 10 mg PO QAM [facility] Stop: 03/19/23 08:59 Last Admin: 02/17/23 08:12 Dose: 10 mg Docusate Sodium (Docusate Sodium 100 Mg Cap) 100 mg PO QAM [facility] Stop: 03/19/23 08:59 Last Admin: 02/17/23 08:12 Dose: 100 mg Ergocalciferol (Ergocalciferol 50,000 Units 1250 Mcg Cap) 50,000 units PO Q31D [facility] Stop: 04/04/23 08:59 Fluticasone Furoate (Fluticasone Furoate 200mcg 14 Puffs/Inhaler) 1 puffs INH DAILY [facility] Stop: 03/19/23 08:59 Last Admin: 02/17/23 08:14 Dose: 1 puffs Fluticasone Propionate (Fluticasone Propionate Na Spr 16 Gm Btl) 2 sprays JONATHAN QAM [facility] Stop: 03/19/23 08:59 Last Admin: 02/17/23 08:13 Dose: 2 sprays Furosemide (Furosemide 40 Mg/4 Ml Vial) 40 mg IV DAILY [facility] Stop: 03/19/23 08:59 Last Admin: 02/17/23 08:15 Dose: 40 mg Gabapentin (Gabapentin 100 Mg Cap) 100 mg PO TID [facility] Stop: 03/18/23 20:59 Last Admin: 02/17/23 14:34 Dose: 100 mg Heparin Sodium (Porcine) (Heparin Sod 5,000 Unit/0.5 Ml Vial) 5,000 units SQ Q8 [facility] Stop: 03/18/23 14:29 Last Admin: 02/17/23 14:34 Dose: 5,000 units Losartan Potassium (Losartan Potassium 25 Mg Tab) 12.5 mg PO QAM [facility] Stop: 03/19/23 08:59 Last Admin: 02/17/23 08:14 Dose: 12.5 mg Magnesium Oxide (Magnesium Oxide 400 Mg Tab) 800 mg PO HS [facility] Stop: 03/18/23 20:59 Last Admin: 02/16/23 20:37 Dose: 800 mg Meclizine HCl (Meclizine Hcl 25 Mg Tab) 25 mg PO DAILY PRN PRN Reason: Dizziness Stop: 03/18/23 15:07 Metoprolol Tartrate (Metoprolol Tartrate 25 Mg Tab) 25 mg PO BID [facility] Stop: 03/18/23 20:59 Last Admin: 02/17/23 08:13 Dose: 25 mg Ondansetron HCl (Ondansetron Inj 2 Mg/Ml 2 Ml Vial) 4 mg IV Q6H PRN PRN Reason: Nausea Stop: 03/18/23 13:53 Polyethylene Glycol (Polyethylene (Miralax) 17 Gm Pack) 17 gm PO DAILY PRN PRN Reason: Constipation Stop: 03/18/23 13:53 Ropinirole HCl (Ropinirole Hcl 2 Mg Tablet) 2 mg PO TID [facility] Stop: 03/19/23 08:59 Last Admin: 02/17/23 14:34 Dose: 2 mg Torsemide (Torsemide 20 Mg Tab) 20 mg PO MoWeFr@0800,1700 [facility] Stop: 03/18/23 16:59 Torsemide (Torsemide 20 Mg Tab) 20 mg PO [id number]@0900 [facility] Stop: 03/19/23 08:59 Trazodone HCl (Trazodone Hcl 50 Mg Tab) 150 mg PO HS [facility] Stop: 03/18/23 20:59 Last Admin: 02/16/23 20:36 Dose: 150 mg Umeclidinium/Vilanterol (Umeclidinium/Vilanterol 62.5/25mcg 7 Puffs/Inhaler) 1 puffs INH DAILY [facility] Stop: 03/19/23 08:59 Last Admin: 02/17/23 08:13 Dose: 1 puffs (1) Chest pain Chest pain type: unspecified Qualified Code(s): R07.9 - Chest pain, unspecified
--- NOTE | 2023-02-17 15:46 | Cardiology Consultation ---
Date of Consultation February 17, 2023 Assessment & Plan (1) Heart failure, diastolic, with acute decompensation: - Per review of outpatient records, in December, Therabid concerns with regards to volume depletion. She been counseled to require alter her torsemide dosing to 20 mg 1 tablet twice a day on Mondays, Wednesdays, and Fridays only, and 1 tablet daily on the other days. Initially, she had not understood those instructions correctly and she is still taking 1 tablet twice daily every day. When she went to refill her medication several weeks ago, she changed to 20 mg of torsemide 1 tablet 2 times per day alternating with 1 tablet daily. She notes worsening chest heaviness in the interim. -For now, hold torsemide, agree with furosemide 40 mg IV daily. Her kidney function is relatively stable with creatinine of 1.2 today. -We will likely plan on discharging her on her previous dose of torsemide 20 mg twice daily. -At present, I feel her EKG as well as 3 negative high-sensitivity troponin tests and her echocardiogram findings are reassuring, and believe her presenting symptoms were due to mild volume overload and elevated filling pressures rather than an acute coronary syndrome. (2) Paroxysmal atrial fibrillation: - Sinus rhythm noted on telemetry without atrial fibrillation. Continue metoprolol to tartrate 25 mg twice daily. As noted in outpatient chart, she is not on anticoagulation due to past hemorrhoidal bleeding. DVT prophylaxis: Continue subcutaneous heparin. History of Present Illness Attending Physician: Alberto Krause MD History of Present Illness Kristen Garcia is a 68-year-old female seen in cardiology consultation per the [facility] for the evalu ation of chest discomfort. The patient describes symptoms of chest pressure, "like there are bricks sitting on my chest ". She states that she weighs herself daily and her weight overnight prior to present to the hospital had gone from 254 to 260 pounds. She notes significant recent lower extremity edema that progresses throughout her usual day, and this morning her edema is better than its recent baseline. She states that her symptoms of shortness of breath, chest discomfort, lower extremity edema, and cough have improved having received several doses of IV furosemide thus far. 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 She is followed for her history of chronic heart failure with preserved ejection fraction, paroxysmal atrial fibrillation. PAST MEDICAL HISTORY: 1.Diastolic dysfunction with normal LV systolic function. 2.Paroxysmal atrial fibrillation with a CHADS (congestive heart failure, hypertension, age, diabetes mellitus, and stroke) score of 2, unable to tolerate anti-platelet or anticoagulation. 3.History of bleeding hemorrhoids. 4.Nonalcoholic fatty liver disease. 5.Morbid obesity. 6.Fibromyalgia. 7.Anxiety. 8.Depression. 9.Severe obstructive sleep apnea/hypopnea syndrome. 10. Cerebral aneurysm s/p stent assisted coil embolization of the unruptured basilar apex aneurysm on 08/16/[address] Casas Allergies Allergy/AdvReac Type Severity Reaction Status Date / Time sulindac Allergy Intermediate HIVES Verified 08/08/22 08:03 adhesive Allergy Mild "Tape" -- Verified 08/08/22 08:03 blisters cyclobenzaprine Allergy Mild RASH Verified 08/08/22 08:03 acetaminophen [From Tylenol] AdvReac Severe restless Verified 08/08/22 08:03 legs hydrochlorothiazide AdvReac Intermediate COUGH Verified 08/08/22 08:03 triamterene AdvReac Intermediate COUGH Verified 08/08/22 08:03 lisinopril AdvReac Mild Cough Verified 08/08/22 08:03 tetanus toxoid, adsorbed AdvReac Mild IRRITABILIT Verified 08/08/22 08:03 Y Home Medications Medication Instructions Recorded Confirmed Type aspirin 81 mg tablet,delayed 81 mg PO QAM 02/09/19 02/16/23 History release fluticasone propionate 50 2 spray intranasal QAM 02/09/19 02/16/23 History mcg/actuation nasal spray,suspension (Flonase Allergy Relief) metoprolol tartrate 50 mg tablet 25 mg PO BID 02/09/19 02/16/23 History ondansetron HCl 4 mg tablet 4 mg PO DIRECTED PRN Nausea 02/09/19 02/16/23 History (Zofran) torsemide 20 mg tablet 20 mg PO UD 02/09/19 02/16/23 History ergocalciferol (vitamin D2) 1,250 1,250 mcg PO MONTHLY 04/30/20 02/16/23 History mcg (50,000 unit) capsule (Vitamin D2) losartan 25 mg tablet (Cozaar) 12.5 mg PO QAM 04/30/20 02/16/23 History albuterol sulfate 90 mcg/actuation 2 inh inhalation Q6H PRN Shortness 07/20/22 02/16/23 History breath activated powder Of Breath inhaler,sensor atorvastatin 10 mg tablet 10 mg PO QAM 07/20/22 02/16/23 History docusate sodium 100 mg capsule 100 mg PO QAM 07/20/22 02/16/23 History (Colace) fluticasone fur. 200 mcg-umeclid 1 inh inhalation QAM 07/20/22 02/16/23 History 62.5 mcg-vilant 25 mcg inhalat.powder (Trelegy Ellipta) gabapentin 100 mg capsule 100 mg PO TID 07/20/22 02/16/23 History ipratropium 0.5 mg-albuterol 3 mg 3 ml inhalation TID 07/20/22 02/16/23 History (2.5 mg base)/3 mL nebulization soln magnesium 500 mg tablet 500 mg PO HS 07/20/22 02/16/23 History meclizine 25 mg tablet 25 mg PO DAILY PRN Dizziness 07/20/22 02/16/23 History ropinirole 2 mg tablet 2 mg PO TID 07/20/22 02/16/23 History trazodone 100 mg tablet 150 mg PO HS 08/08/22 02/16/23 History Patient History Medical History Anxiety Atrial fibrillation dx 2016--intermittent--on metoprolol--follows with Dr. Shipman Brain aneurysm s/p repair (2018) CHF (congestive heart failure) follows with [facility] cardio CKD (chronic kidney disease), stage III Depression Dyspnea nebulizer/inhaler daily and prn Fibromyalgia Hiatal hernia History of basal cell carcinoma History of COVID-19 diagnosed 11/2021--mild symptoms, no symptoms now History of migraine Hypertension Morbid obesity with BMI of 45.0-49.9, adult On home oxygen therapy 2L via CPAP at HS Osteoarthritis Restless leg Sleep apnea CPAP with 2L at HS Surgical History Awareness under anesthesia H/O cerebral aneurysm repair 2018 - [facility] - follows [facility] neurosurgery History of basal cell carcinoma (BCC) excision History of benign breast biopsy History of section History of colonoscopy last 2019 @ [facility] History of esophagogastroduodenoscopy (EGD) last 2019 @ [facility] History of exploratory laparotomy History of eyelid surgery History of tonsillectomy History of total abdominal hysterectomy and bilateral salpingo-oophorectomy Slow to wake up after anesthesia Family History Other Diabetes Heart disease Hypertension No family history of adverse response to anesthesia Social History Smoking Status: Never smoker Second Hand Exposure: No; Do You Dip or Chew Tobacco: No; Tobacco Cessation Education Requested by Patient: No Hx Alcohol Use: No Hx Substance Use: No Preferred Language: Ukrainian Communication Ability: Effective Brake Adjuster Required: No Beliefs That Will Affect Care: None Current Living Situation: Spouse Other Information That Helps Us Care for You: No Feels Safe at Home: Yes Safety Concerns: Feels Safe At This Time Assistive Devices: None Review of Systems Review of Systems: All systems reviewed & are unremarkable except as noted in HPI & below Physical Exam Constitutional: WD/WN, vitals as above Respiratory: no respiratory distress and no labored breathing Auscultation: + diminished lung sounds (Mildly reduced breath sounds bilaterally at the bases) Cardiovascular: Rate/Rhythm: regular rate and regular rhythm Extremities: + edema (Trace to 1+ left lower extremity edema, trace right lower extremity edema) Gastrointestinal (Abdomen): normal bowel sounds, soft, nontender, no hepatosplenomegaly Neurologic: PERRL, EOMI, accommodation nl, no face palsy, no dysarthria Results & Data Vital Signs (Past 12 Hours) Vital Signs Temp Pulse Pulse Resp BP Pulse Ox Pulse Ox 02/17/23 15:16 36.5 C 69 18 132/82 94 02/17/23 15:00 63 02/17/23 13:54 97 02/17/23 11:26 36.6 C 68 16 118/55 L 93 02/17/23 07:53 36.6 C 73 18 133/58 L 93 02/17/23 07:00 69 02/17/23 07:19 76 16 92 02/17/23 03:48 36.8 C 60 18 111/63 98 O2 Del Method O2 Del Method 02/17/23 15:16 Room Air 02/17/23 15:00 02/17/23 13:54 Room Air 02/17/23 11:26 Room Air 02/17/23 07:53 Room Air 02/17/23 07:00 02/17/23 07:19 Room Air 02/17/23 03:48 CPAP Laboratory Results Cardiac Enzymes 02/16/23 02/16/23 Range/Units 16:16 22:40 Troponin I High Sens 3.7 5.0 (0-14) pg/ml CBC 02/17/23 Range/Units 06:26 WBC 6.25 (4.8-10.8) K/ul RBC 3.78 L (4.20-5.40) M/uL Hgb 10.5 L (12.0-16.0) g/dl Hct 32.9 L (37.0-47.0) % Plt Count 246 (130-400) K/uL Comprehensive Metabolic Panel 02/17/23 Range/Units 06:26 Sodium 142 (136-145) mmol/L Potassium 4.4 (3.5-5.1) mmol/L Chloride 105 (98-107) mmol/L Carbon Dioxide 32 (21-32) mmol/L BUN 19 (6-23) mg/dl Creatinine 1.20 (0.6-1.2) mg/dl Glucose 91 (70-99(Fasting)) mg/dl Calcium 8.6 (8.6-10.3) mg/dl Diagnostic Findings EKG performed 02/16/2023 at 1023 and interpreted independently: Sinus rhythm at 60 bpm with first-degree AV block, SC of 110 ms, T wave inversions noted in leads V2 V3. Compared to the previous tracing dated 08/08/2022, T wave changes are stable without significant interval change. Chest x-ray is reviewed independently and per review of radiology report: Enlargement of cardiac silhouette noted without fidelia pulmonary edema. Summary of radiology report, CT angiogram chest: No pulmonary identified, no consolidation, moderate cardiomegaly Echocardiogram performed 02/16/2023: Reviewed independently: Normal left ventricular myocardial thickness, no regional wall motion abnormality, LVEF in the range of 65-70%, grade 1 diastolic dysfunction, no significant valvular pathology
[2023-02-17] MEDS: traZODone HCL 50 MG TAB PO SCH (20:16)
[2023-02-17] MEDS: MAGNESIUM OXIDE 400 MG TAB PO SCH (20:16)
[2023-02-17] MEDS: ONDANSETRON INJ 2 MG/ML 2 ML VIAL IV PRN (22:27)
[2023-02-18] MEDS: HEPARIN SOD 5,000 UNIT/0.5 ML VIAL SQ SCH ×3 (05:59→20:34)
[2023-02-18] MEDS: ONDANSETRON INJ 2 MG/ML 2 ML VIAL IV PRN ×2 (06:03→20:33)
[2023-02-18 06:30] LABS: Hematocrit (blood only) 32.7 % (37.0-47.0); Hemoglobin 10.6 g/dl (12.0-16.0); Mean Corpuscular Hemoglobin 27.9 pg (25.0-34.0); Mean Corpuscular Hgb Conc 32.4 g/dL (32.0-36.0); Mean Corpuscular Volume 86.1 fL (80.0-100.0); Mean Platelet Volume 10.3 fL (9.4-12.4); Platelet Count 253 K/uL (130-400); RDW Coefficient of Variation 15.4 % (11.5-14.5); RDW Standard Deviation 48.5 fL (36.4-46.3); White Blood Count 6.29 K/ul (4.8-10.8)
[2023-02-18 06:50] LABS: BUN Creatinine Ratio 15.3 (10-20); Calcium 8.5 mg/dl (8.6-10.3); Creatinine Clr Calc Pharmacy 59.7 ml/min; Est GFR (African American) 55.3 ml/min; Est GFR (Non-African American) 47.7 ml/min; Magnesium 2.3 mg/dl (1.7-2.4); Phosphorus 3.2 mg/dl (2.5-4.9); Potassium 4.2 mmol/L (3.5-5.1)
--- NOTE | 2023-02-18 08:36 | Hospitalist Progress Note ---
Date of Service February 18, 2023 Assessment & Plan (1) Chest pain: Plan: 68-year-old female with PMH of diastolic heart failure, paroxysmal atrial fibrillation, hypertension, hyperlipidemia, severe STEFANY with nocturnal hypoxemia, NAFLD the, CKD 3, fibromyalgia, mood disorder, aspirin intolerance and other medical problems listed below who presents with chest pain and decompensated heart failure. Left sided CP woke her up, has since resolved EKG with SR with 1st degree AV block. No acute ST changes but nonspecific T wave changes in anterior leads, initial HS troponin negative CTA chest without e/o PE, no consolidation to suggest PNA, moderate cardiomegaly Echo from Aug 2022 with preserved EF, grade 1 diastolic dysfunction Trend troponin, monitor on tele, continue aspirin, statin, beta mitchell (2) Lower extremity edema: (3) Heart failure, diastolic, with acute decompensation: Plan: Worsening orthopnea, BLE edema since Torsemide changed by PCP a few weeks ago from torsemide 20mg BID down to 20mg BID MWF alternating with 20mg daily other days Given 40mg IV Lasix in ED, monitor daily weight, strict I&Os, low sodium diet Routine cards consult for help with diuretic mgmt. Ordering 40mg IV Lasix daily for now Repeat echo obtained -normal LV wall thickness. No regional wall motion abnormalities noted. EF 65 to 70%. Grade 1 diastolic dysfunction. No significant valvular pathology. 02/17 - patient feels improved. Continue with diuresis. Monitor I's and O's. Monitor electrolytes, BMP mag phos ordered for tomorrow morning. Cardiology following 02/18 - pt w/o any chest pain but + for nausea. LLE tense up to mid calf - will obtain Doppler. Continue diuresis. (4) Hypertension: Plan: Continue to [facility], on Lopressor 25mg BID, losartan 12.5mg daily (5) CKD (chronic kidney disease), stage III: Plan: Baseline Cr ~1.2. Monitor with daily BMP (6) Paroxysmal atrial fibrillation: Plan: Continue BID Lopressor. No longer anticoagulated due to rectal bleeding in the past (7) Restless leg syndrome: Plan: Continue home ropinirole (8) Sleep apnea: Plan: CPAP with 2L O2 bled through HS DVT Ppx: SQ heparin Code status: FULL PCP: Dr. Pizano Dispo: PCU Admission and Anticipated Discharge Date Admission Date: February 17, 2023 Subjective Pt seen in follow up of chest pain, chf exacerbation Currently sitting up in bed, in no acute distress, watching movie on her ipad says she was having nausea earlier and dry heaves Reports pressure on her chest has relieved and she is breathing better Cont. to have LE edema, LLE feels more tense She also reports unintentional weight loss overall, in the past several months Cardiology following Review of Systems Review of Systems: All systems reviewed & are unremarkable except as noted in Subjective Physical Exam Physical Exam: General Appearance: morbidly obese F in NAD, sitting up in bed, in NAD, on RA Head: normocephalic, atraumatic Eyes:normal inspection, PERRL ENT: external ear and nose normal, oropharynx normal Neck:thick Respiratory:No accessory muscle use. Mild crackles at bases, no wheezing. Cardiovascular: regular rate, rhythm, normal peripheral pulses, 1-2+ BLE edema, LLE feels tense up to mid calf Chest: normal inspection of chest Abdomen/GI: normal bowel sounds, soft, nontender Extremities/Musculoskeletal: moves extremities Neurologic: PERRL, EOMI, no face palsy, no dysarthria, moves extremities Psychiatric:A+Ox3, euthymic affect Skin: warm/dry Results & Data Results & Data Vital Signs (Past 12 Hours) Vital Signs Temp Pulse Pulse Resp BP Pulse Ox O2 Del Method 02/18/23 07:39 36.6 C 72 17 135/65 96 Room Air 02/18/23 03:55 36.8 C 66 18 114/59 L 97 CPAP 02/17/23 23:29 36.8 C 76 130/101 H 97 CPAP 02/17/23 22:41 73 O2 Flow Rate 02/18/23 07:39 02/18/23 03:55 02/17/23 23:29 2 02/17/23 22:41 Laboratory Results 02/18/23 02/18/23 Range/Units 05:52 05:52 WBC 6.29 (4.8-10.8) K/ul RBC 3.80 L (4.20-5.40) M/uL Hgb 10.6 L (12.0-16.0) g/dl Hct 32.7 L (37.0-47.0) % MCV 86.1 (80.0-100.0) fL MCH 27.9 (25.0-34.0) pg MCHC 32.4 (32.0-36.0) g/dL RDW Std Deviation 48.5 H (36.4-46.3) fL RDW Coeff of Anurag 15.4 H (11.5-14.5) % Plt Count 253 (130-400) K/uL MPV 10.3 (9.4-12.4) fL Sodium 139 (136-145) mmol/L Potassium 4.2 (3.5-5.1) mmol/L Chloride 104 (98-107) mmol/L Carbon Dioxide 30 (21-32) mmol/L Anion Gap 5 (3-11) BUN 18 (6-23) mg/dl Creatinine 1.18 (0.6-1.2) mg/dl Est Cr Clr Drug Dosing 59.7 ml/min Est GFR ( Amer) 55.3 ml/min Est GFR (Non-Af Amer) 47.7 ml/min BUN/Creatinine Ratio 15.3 (10-20) Glucose 87 (70-99(Fasting)) mg/dl Calcium 8.5 L (8.6-10.3) mg/dl Phosphorus 3.2 (2.5-4.9) mg/dl Magnesium 2.3 (1.7-2.4) mg/dl Medications Administered Current Inpatient Medications Acetaminophen (Acetaminophen 325 Mg Tab) 650 mg PO Q4H PRN PRN Reason: Pain or Fever Stop: 03/18/23 13:53 Albuterol (Albuterol Hfa 8 Gm Inhaler) 2 puffs INH Q6H PRN PRN Reason: Shortness Of Breath Stop: 03/18/23 15:13 Albuterol (Albut/Ipratrop 3mg/0.5mg Neb 3 Ml Vial) 3 ml INH TIDR PRN; Protocol PRN Reason: Wheezing Stop: 03/18/23 18:59 Aspirin (Aspirin 81 Mg Ectab) 81 mg PO [facility] Stop: 03/19/23 08:59 Last Admin: 02/17/23 08:12 Dose: 81 mg Atorvastatin Calcium (Atorvastatin 10 Mg Tab) 10 mg PO [facility] Stop: 03/19/23 08:59 Last Admin: 02/17/23 08:12 Dose: 10 mg Docusate Sodium (Docusate Sodium 100 Mg Cap) 100 mg PO [facility] Stop: 03/19/23 08:59 Last Admin: 02/17/23 08:12 Dose: 100 mg Ergocalciferol (Ergocalciferol 50,000 Units 1250 Mcg Cap) 50,[address] [facility] Stop: 04/04/23 08:59 Fluticasone Furoate (Fluticasone Furoate 200mcg 14 Puffs/Inhaler) 1 puffs INH DAILY [facility] Stop: 03/19/23 08:59 Last Admin: 02/17/23 08:14 Dose: 1 puffs Fluticasone Propionate (Fluticasone Propionate Na Spr 16 Gm Btl) [address] [facility] Stop: 03/19/23 08:59 Last Admin: 02/17/23 08:13 Dose: 2 sprays Furosemide (Furosemide 40 Mg/4 Ml Vial) [address] [facility] Stop: 03/19/23 08:59 Last Admin: 02/17/23 08:15 Dose: 40 mg Gabapentin (Gabapentin 100 Mg Cap) [address] [facility] Stop: 03/18/23 20:59 Last Admin: 02/17/23 20:13 Dose: 100 mg Heparin Sodium (Porcine) (Heparin Sod 5,000 Unit/0.5 Ml Vial) 5,[address] [facility] Stop: 03/18/23 14:29 Last Admin: 02/18/23 05:59 Dose: 5,000 units Losartan Potassium (Losartan Potassium 25 Mg Tab) 12.[address] [facility] Stop: 03/19/23 08:59 Last Admin: 02/17/23 08:14 Dose: 12.5 mg Magnesium Oxide (Magnesium Oxide 400 Mg Tab) [address] [facility] Stop: 03/18/23 20:59 Last Admin: 02/17/23 20:16 Dose: 800 mg Meclizine HCl (Meclizine Hcl 25 Mg Tab) 25 mg PO DAILY PRN PRN Reason: Dizziness Stop: 03/18/23 15:07 Metoprolol Tartrate (Metoprolol Tartrate 25 Mg Tab) [address] [facility] Stop: 03/18/23 20:59 Last Admin: 02/17/23 20:13 Dose: 25 mg Ondansetron HCl (Ondansetron Inj 2 Mg/Ml 2 Ml Vial) 4 mg IV Q6H PRN PRN Reason: Nausea Stop: 03/18/23 13:53 Last Admin: 02/18/23 06:03 Dose: 4 mg Polyethylene Glycol (Polyethylene (Miralax) 17 Gm Pack) 17 gm PO DAILY PRN PRN Reason: Constipation Stop: 03/18/23 13:53 Ropinirole HCl (Ropinirole Hcl 2 Mg Tablet) [address] [facility] Stop: 03/19/23 08:59 Last Admin: 02/17/23 20:13 Dose: 2 mg Torsemide (Torsemide 20 Mg Tab) 20 mg PO MoWeFr@0800,1700 [facility] Stop: 03/18/23 16:59 Torsemide (Torsemide 20 Mg Tab) 20 mg PO SuTuThSa@0900 [facility] Stop: 03/19/23 08:59 Trazodone HCl (Trazodone Hcl 50 Mg Tab) [address] [facility] Stop: 03/18/23 20:59 Last Admin: 02/17/23 20:16 Dose: 150 mg Umeclidinium/Vilanterol (Umeclidinium/Vilanterol 62.5/25mcg 7 Puffs/Inhaler) [address] [facility] Stop: 03/19/23 08:59 Last Admin: 02/17/23 08:13 Dose: 1 puffs (1) Chest pain Chest pain type: unspecified Qualified Code(s): R07.9 - Chest pain, unspecified
[2023-02-18] MEDS: FLUTICASONE PROPIONATE NA SPR 16 GM BTL NAE SCH (09:06)
[2023-02-18] MEDS: FLUTICASONE FUROATE 200MCG 14 PUFFS/INHALER INH SCH (09:06)
[2023-02-18] MEDS: UMECLIDINIUM/VILANTEROL 62.5/25MCG 7 PUFFS/INHALER INH SCH (09:06)
[2023-02-18] MEDS: FUROSEMIDE 40 MG/4 ML VIAL IV SCH (09:07)
[2023-02-18] MEDS: ASPIRIN 81 MG ECTAB PO SCH (09:07)
[2023-02-18] MEDS: GABAPENTIN 100 MG CAP PO SCH ×3 (09:08→20:34)
[2023-02-18] MEDS: ATORVASTATIN 10 MG TAB PO SCH (09:08)
[2023-02-18] MEDS: METOPROLOL TARTRATE 25 MG TAB PO SCH ×2 (09:08→20:34)
[2023-02-18] MEDS: rOPINIRole HCL 2 MG TABLET PO SCH ×3 (09:08→20:34)
[2023-02-18] MEDS: LOSARTAN POTASSIUM 25 MG TAB PO SCH (09:08)
[2023-02-18] MEDS: DOCUSATE SODIUM 100 MG CAP PO SCH (09:10)
--- NOTE | 2023-02-18 12:32 | Ultrasound Report ---
ULTRASOUND LEFT LOWER EXTREMITY VENOUS CLINICAL HISTORY: Left calf pain. COMPARISON STUDY: Bilateral lower extremity venous ultrasound dated 08/08/2022. TECHNIQUE: Real-time, grayscale, and color Doppler sonography of the deep veins of the left lower ext remity was performed from the inguinal crease to the calf. Compression and augmentation were utilized . FINDINGS: There is no sonographic evidence of deep venous thrombosis identified in the left lower ext remity. The common femoral, superficial femoral, and popliteal veins are patent and normally compress ible. The greater saphenous vein and the profunda femoris vein at the junction with the common femora l vein are clear. The visualized calf veins are patent. IMPRESSION: There is no sonographic evidence of deep venous thrombosis identified in the left lower e xtremity. ACT 112: Negative or not required by law. Electronically signed by: Sam Connolly M.D. 02/18/2023 12:31 PM
[2023-02-18] MEDS ORDERED: FUROSEMIDE 40 MG/4 ML VIAL IV ONE (12:34)
--- NOTE | 2023-02-18 14:28 | Cardiology Progress Note ---
Date of Service February 18, 2023 Assessment & Plan (1) Heart failure, diastolic, with acute decompensation: Plan: -Patient received furosemide 40 mg IV x1 this morning. We will administer another dose this afternoon. Making slow but steady improvement. Plan for fu rosemide 40 mg IV tomorrow morning as well. (2) Paroxysmal atrial fibrillation: Plan: - Sinus rhythm noted on telemetry without atrial fibrillation. 1 brief episode of SVT. Continue metoprolol to tartrate 25 mg twice daily. As noted in outpatient chart, she is not on anticoagulation due to past hemorrhoidal bleeding. DVT prophylaxis: Continue subcutaneous heparin. Admission and Anticipated Discharge Date Admission Date: February 17, 2023 Subjective Patient seen in cardiology follow-up of chief complaint of shortness of breath. She notes her chest pressure symptoms have resolved. Notes ongoing left greater than right lower extremity edema. Cough. Telemetry reveals sinus rhythm in the 70s, sinus rhythm in the range of 50 to 60 bpm noted overnight last night. One very brief episode of SVT observed. Physical Exam Constitutional: WD/WN, vitals as above Respiratory: no respiratory distress and no labored breathing Auscultation: + diminished lung sounds (Mildly reduced breath sounds bilaterally at the bases) Cardiovascular: Rate/Rhythm: regular rate and regular rhythm Extremities: + edema (Trace to 1+ left lower extremity edema, trace right lower extremity edema) Gastrointestinal (Abdomen): normal bowel sounds, soft, nontender, no hepatosplenomegaly Neurologic: PERRL, EOMI, accommodation nl, no face palsy, no dysarthria Results & Data Vital Signs (Past 12 Hours) Vital Signs Temp Pulse Pulse Resp BP Pulse Ox Pulse Ox 02/18/23 13:00 95 02/18/23 12:44 36.5 C 71 18 130/66 94 02/18/23 07:00 64 02/18/23 07:39 36.6 C 72 17 135/65 96 02/18/23 03:55 36.8 C 66 18 114/59 L 97 O2 Del Method O2 Del Method 02/18/23 13:00 Room Air 02/18/23 12:44 Room Air 02/18/23 07:00 02/18/23 07:39 Room Air 02/18/23 03:55 CPAP Laboratory Results CBC 02/18/23 Range/Units 05:52 WBC 6.29 (4.8-10.8) K/ul RBC 3.80 L (4.20-5.40) M/uL Hgb 10.6 L (12.0-16.0) g/dl Hct 32.7 L (37.0-47.0) % Plt Count 253 (130-400) K/uL Comprehensive Metabolic Panel 02/18/23 Range/Units 05:52 Sodium 139 (136-145) mmol/L Potassium 4.2 (3.5-5.1) mmol/L Chloride 104 (98-107) mmol/L Carbon Dioxide 30 (21-32) mmol/L BUN 18 (6-23) mg/dl Creatinine 1.18 (0.6-1.2) mg/dl Glucose 87 (70-99(Fasting)) mg/dl Calcium 8.5 L (8.6-10.3) mg/dl Intake and Output 02/17/23 02/18/23 02/18/23 22:59 06:59 14:59 Intake Total 100 / 785 350 / 785 250 / 250 Output Total 50 / 50 750 / 750 Balance 50 / 735 350 / 735 -500 / -500 Intake: Oral 100 / 785 350 / 785 250 / 250 Output: Urine 50 / 50 750 / 750 Other: Weight 118.7 kg Weight Measurement Method Built in [facility] Lower extremity venous duplex revealed no left lower extremity DVT, 02/18/2023
[2023-02-18] MEDS: MAGNESIUM OXIDE 400 MG TAB PO SCH (20:33)
[2023-02-18] MEDS: traZODone HCL 50 MG TAB PO SCH (20:34)
[2023-02-19] MEDS: HEPARIN SOD 5,000 UNIT/0.5 ML VIAL SQ SCH ×3 (06:00→21:00)
[2023-02-19 06:40] LABS: BUN Creatinine Ratio 14.5 (10-20); Calcium 8.8 mg/dl (8.6-10.3); Creatinine Clr Calc Pharmacy 50.5 ml/min; Est GFR (African American) 45.7 ml/min; Est GFR (Non-African American) 39.5 ml/min; Magnesium 2.3 mg/dl (1.7-2.4); Phosphorus 3.6 mg/dl (2.5-4.9); Potassium 4.5 mmol/L (3.5-5.1)
[2023-02-19 06:45] LABS: Hematocrit (blood only) 34.6 % (37.0-47.0); Mean Corpuscular Hemoglobin 27.4 pg (25.0-34.0); Mean Corpuscular Hgb Conc 31.8 g/dL (32.0-36.0); Mean Corpuscular Volume 86.3 fL (80.0-100.0); Mean Platelet Volume 10.1 fL (9.4-12.4); Platelet Count 266 K/uL (130-400); RDW Coefficient of Variation 15.4 % (11.5-14.5); RDW Standard Deviation 49.1 fL (36.4-46.3); Red Blood Count 4.01 M/uL (4.20-5.40); White Blood Count 6.94 K/ul (4.8-10.8)
[2023-02-19 07:56] LABS: Partial Thromboplastin Ratio 0.9; Partial Thromboplastin Time 24.9 Seconds (21.0-31.0)
[2023-02-19] MEDS: UMECLIDINIUM/VILANTEROL 62.5/25MCG 7 PUFFS/INHALER INH SCH (07:56)
[2023-02-19] MEDS: FLUTICASONE FUROATE 200MCG 14 PUFFS/INHALER INH SCH (07:56)
[2023-02-19] MEDS: FLUTICASONE PROPIONATE NA SPR 16 GM BTL NAE SCH (07:57)
[2023-02-19] MEDS: ASPIRIN 81 MG ECTAB PO SCH (07:57)
[2023-02-19] MEDS: ATORVASTATIN 10 MG TAB PO SCH (07:57)
[2023-02-19] MEDS: GABAPENTIN 100 MG CAP PO SCH ×3 (07:57→20:59)
[2023-02-19] MEDS: FUROSEMIDE 40 MG/4 ML VIAL IV SCH (07:58)
[2023-02-19] MEDS: METOPROLOL TARTRATE 25 MG TAB PO SCH ×2 (07:58→20:58)
[2023-02-19] MEDS: rOPINIRole HCL 2 MG TABLET PO SCH ×3 (07:58→21:00)
[2023-02-19] MEDS: LOSARTAN POTASSIUM 25 MG TAB PO SCH (07:58)
[2023-02-19] MEDS: DOCUSATE SODIUM 100 MG CAP PO SCH (08:00)
--- NOTE | 2023-02-19 08:31 | Hospitalist Progress Note ---
Date of Service February 19, 2023 Assessment & Plan (1) Chest pain: Plan: 68-year-old female with PMH of diastolic heart failure, paroxysmal atrial fibrillation, hypertension, hyperlipidemia, severe STEFANY with nocturnal hypoxemia, NAFLD the, CKD 3, fibromyalgia, mood disorder, aspirin intolerance and other medical problems listed below who presents with chest pain and decompensated heart failure. Left sided CP woke her up, has since resolved EKG with SR with 1st degree AV block. No acute ST changes but nonspecific T wave changes in anterior leads, initial HS troponin negative CTA chest without e/o PE, no consolidation to suggest PNA, moderate cardiomegaly Echo from Aug 2022 with preserved EF, grade 1 diastolic dysfunction Trend troponin, monitor on tele, continue aspirin, statin, beta mitchell (2) Lower extremity edema: (3) Heart failure, diastolic, with acute decompensation: Plan: Worsening orthopnea, BLE edema since Torsemide changed by PCP a few weeks ago from torsemide 20mg BID down to 20mg BID MWF alternating with 20mg daily other days Given 40mg IV Lasix in ED, monitor daily weight, strict I&Os, low sodium diet Routine cards consult for help with diuretic mgmt. Ordering 40mg IV Lasix daily for now Repeat echo obtained -normal LV wall thickness. No regional wall motion abnormalities noted. EF 65 to 70%. Grade 1 diastolic dysfunction. No significant valvular pathology. 02/17 - patient feels improved. Continue with diuresis. Monitor I's and O's. Monitor electrolytes, BMP mag phos ordered for tomorrow morning. Cardiology following 02/18 - pt w/o any chest pain but + for nausea. LLE tense up to mid calf - obtained Doppler - negat. for DVT. Continue diuresis. 02/19 - Cr up today, will put IV lasix on hold. repeat BMP. Plan to DC home on torsemide. (4) Hypertension: Plan: Continue to [facility], on Lopressor 25mg BID, losartan 12.5mg daily (5) CKD (chronic kidney disease), stage III: Plan: Baseline Cr ~1.2. Monitor with daily BMP (6) Paroxysmal atrial fibrillation: Plan: Continue BID Lopressor. No longer anticoagulated due to rectal bleeding in the past (7) Restless leg syndrome: Plan: Continue home ropinirole (8) Sleep apnea: Plan: CPAP with 2L O2 bled through HS DVT Ppx: SQ heparin Code status: FULL PCP: Dr. Pizano Dispo: PCU Admission and Anticipated Discharge Date Admission Date: February 17, 2023 Subjective Pt seen in follow up of chest pain, chf exacerbation Currently sitting up in bed, in no acute distress Reports pressure on her chest has relieved and she is breathing better She also reports unintentional weight loss overall, in the past several months Cardiology following Review of Systems Review of Systems: All systems reviewed & are unremarkable except as noted in Subjective Physical Exam Physical Exam: General Appearance: morbidly obese F in NAD, sitting up in bed, in NAD, on RA Head: normocephalic, atraumatic Eyes:normal inspection, PERRL ENT: external ear and nose normal, oropharynx normal Neck:thick Respiratory:No accessory muscle use. Mild crackles at bases, no wheezing. Cardiovascular: regular rate, rhythm, normal peripheral pulses, 1+ BLE edema (improved) Chest: normal inspection of chest Abdomen/GI: normal bowel sounds, soft, nontender Extremities/Musculoskeletal: moves extremities Neurologic: PERRL, EOMI, no face palsy, no dysarthria, moves extremities Psychiatric:A+Ox3, euthymic affect Skin: warm/dry Results & Data Results & Data Vital Signs (Past 12 Hours) Vital Signs Temp Pulse Pulse Resp BP Pulse Ox O2 Del Method 02/19/23 07:38 36.6 C 60 16 126/72 93 Room Air 02/19/23 03:36 36.4 C L 70 20 119/65 96 BiPAP 02/18/23 23:00 36.5 C 80 18 110/72 36 L CPAP 02/18/23 22:49 70 O2 Flow Rate 02/19/23 07:38 02/19/23 03:36 02/18/23 23:00 2 02/18/23 22:49 Laboratory Results 02/19/23 02/19/23 02/19/23 Range/Units 05:56 05:56 05:56 WBC 6.94 (4.8-10.8) K/ul RBC 4.01 L (4.20-5.40) M/uL Hgb 11.0 L (12.0-16.0) g/dl Hct 34.6 L (37.0-47.0) % MCV 86.3 (80.0-100.0) fL MCH 27.4 (25.0-34.0) pg MCHC 31.8 L (32.0-36.0) g/dL RDW Std Deviation 49.1 H (36.4-46.3) fL RDW Coeff of Anurag 15.4 H (11.5-14.5) % Plt Count 266 (130-400) K/uL MPV 10.1 (9.4-12.4) fL APTT 24.9 (21.0-31.0) Seconds PTT Ratio 0.9 Sodium 139 (136-145) mmol/L Potassium 4.5 (3.5-5.1) mmol/L Chloride 104 (98-107) mmol/L Carbon Dioxide 31 (21-32) mmol/L Anion Gap 4 (3-11) BUN 20 (6-23) mg/dl Creatinine 1.38 H (0.6-1.2) mg/dl Est Cr Clr Drug Dosing 50.5 ml/min Est GFR ( Amer) 45.7 ml/min Est GFR (Non-Af Amer) 39.5 ml/min BUN/Creatinine Ratio 14.5 (10-20) Glucose 81 (70-99(Fasting)) mg/dl Calcium 8.8 (8.6-10.3) mg/dl Phosphorus 3.6 (2.5-4.9) mg/dl Magnesium 2.3 (1.7-2.4) mg/dl Medications Administered Current Inpatient Medications Acetaminophen (Acetaminophen 325 Mg Tab) 650 mg PO Q4H PRN PRN Reason: Pain or Fever Stop: 03/18/23 13:53 Albuterol (Albuterol Hfa 8 Gm Inhaler) 2 puffs INH Q6H PRN PRN Reason: Shortness Of Breath Stop: 03/18/23 15:13 Albuterol (Albut/Ipratrop 3mg/0.5mg Neb 3 Ml Vial) 3 ml INH TIDR PRN; Protocol PRN Reason: Wheezing Stop: 03/18/23 18:59 Aspirin (Aspirin 81 Mg Ectab) 81 mg PO [facility] Stop: 03/19/23 08:59 Last Admin: 02/19/23 07:57 Dose: 81 mg Atorvastatin Calcium (Atorvastatin 10 Mg Tab) 10 mg PO [facility] Stop: 03/19/23 08:59 Last Admin: 02/19/23 07:57 Dose: 10 mg Docusate Sodium (Docusate Sodium 100 Mg Cap) 100 mg PO QAM [facility] Stop: 03/19/23 08:59 Last Admin: 02/19/23 08:00 Dose: 100 mg Ergocalciferol (Ergocalciferol 50,000 Units 1250 Mcg Cap) 50,000 units PO Q31D [facility] Stop: 04/04/23 08:59 Fluticasone Furoate (Fluticasone Furoate 200mcg 14 Puffs/Inhaler) 1 puffs INH DAILY [facility] Stop: 03/19/23 08:59 Last Admin: 02/19/23 07:56 Dose: 1 puffs Fluticasone Propionate (Fluticasone Propionate Na Spr 16 Gm Btl) 2 sprays JONATHAN QAM [facility] Stop: 03/19/23 08:59 Last Admin: 02/19/23 07:57 Dose: 2 sprays Furosemide (Furosemide 40 Mg/4 Ml Vial) 40 mg IV DAILY [facility] Stop: 03/19/23 08:59 Last Admin: 02/19/23 07:58 Dose: 40 mg Gabapentin (Gabapentin 100 Mg Cap) 100 mg PO TID [facility] Stop: 03/18/23 20:59 Last Admin: 02/19/23 07:57 Dose: 100 mg Heparin Sodium (Porcine) (Heparin Sod 5,000 Unit/0.5 Ml Vial) 5,000 units SQ Q8 [facility] Stop: 03/18/23 14:29 Last Admin: 02/19/23 06:00 Dose: 5,000 units Losartan Potassium (Losartan Potassium 25 Mg Tab) 12.5 mg PO QAM [facility] Stop: 03/19/23 08:59 Last Admin: 02/19/23 07:58 Dose: 12.5 mg Magnesium Oxide (Magnesium Oxide 400 Mg Tab) 800 mg PO HS [facility] Stop: 03/18/23 20:59 Last Admin: 02/18/23 20:33 Dose: 800 mg Meclizine HCl (Meclizine Hcl 25 Mg Tab) 25 mg PO DAILY PRN PRN Reason: Dizziness Stop: 03/18/23 15:07 Metoprolol Tartrate (Metoprolol Tartrate 25 Mg Tab) 25 mg PO BID [facility] Stop: 03/18/23 20:59 Last Admin: 02/19/23 07:58 Dose: 25 mg Ondansetron HCl (Ondansetron Inj 2 Mg/Ml 2 Ml Vial) 4 mg IV Q6H PRN PRN Reason: Nausea Stop: 03/18/23 13:53 Last Admin: 02/18/23 20:33 Dose: 4 mg Polyethylene Glycol (Polyethylene (Miralax) 17 Gm Pack) 17 gm PO DAILY PRN PRN Reason: Constipation Stop: 03/18/23 13:53 Ropinirole HCl (Ropinirole Hcl 2 Mg Tablet) 2 mg PO TID [facility] Stop: 03/19/23 08:59 Last Admin: 02/19/23 07:58 Dose: 2 mg Torsemide (Torsemide 20 Mg Tab) 20 mg PO MoWeFr@0800,1700 [facility] Stop: 03/18/23 16:59 Torsemide (Torsemide 20 Mg Tab) 20 mg PO SuTuThSa@0900 [facility] Stop: 03/19/23 08:59 Trazodone HCl (Trazodone Hcl 50 Mg Tab) 150 mg PO HS [facility] Stop: 03/18/23 20:59 Last Admin: 02/18/23 20:34 Dose: 150 mg Umeclidinium/Vilanterol (Umeclidinium/Vilanterol 62.5/25mcg 7 Puffs/Inhaler) 1 puffs INH DAILY [facility] Stop: 03/19/23 08:59 Last Admin: 02/19/23 07:56 Dose: 1 puffs (1) Chest pain Chest pain type: unspecified Qualified Code(s): R07.9 - Chest pain, unspecified
--- NOTE | 2023-02-19 12:25 | Cardiology Progress Note ---
Date of Service February 19, 2023 Assessment & Plan (1) Heart failure, diastolic, with acute decompensation: Plan: Patient received 2 doses of IV furosemide yesterday. Serum creatinine trending upward today. We will hold a.m. dose of furosemide with repeat basic metabolic panel. Transition to oral torsemide in a.m. pending review of labs. Recommend patient resume torsemide 20 mg twice daily at discharge. (2) Paroxysmal atrial fibrillation: Plan: Sinus rhythm noted on telemetry without atrial fibrillation. Continue metoprolol to tartrate 25 mg twice daily. As noted in outpatient chart, she is not on anticoagulation due to past hemorrhoidal bleeding. DVT prophylaxis: Continue subcutaneous heparin. Admission and Anticipated Discharge Date Admission Date: February 17, 2023 Subjective Patient seen examined bedside. Feeling better since admission. Fluid balance - 1500 cc overnight. Serum creatinine trending upward to 1.38. Chest discomfort has resolved. Reports weight gain and dyspnea associated with recent de- escalation of diuretic therapy. No orthopnea or PND. Telemetry reveals sinus rhythm in the 60s and 70s. Review of Systems Review of Systems: All systems reviewed & are unremarkable except as noted in Subjective Physical Exam Constitutional: well nourished; no acute distress Respiratory: no respiratory distress, no labored breathing and no retractions Auscultation: no crackles, no rales, no rhonchi and no wheezes Cardiovascular: Rate/Rhythm: regular rate and regular rhythm Heart Sounds: normal S1 and normal S2; no murmur Vessels: radial pulses present; no JVD and no carotid bruit Extremities: no edema Gastrointestinal (Abdomen): Inspection/Auscultation: normal bowel sounds; abdomen not distended Percussion/Palpation: abdomen soft; abdomen nontender, no guarding and abdomen not rigid Neurologic: CN's II-XI intact bilaterally and moves all extremities; no focal motor deficits Psychiatric: Orientation: alert and oriented x 3 Results & Data Vital Signs (Past 12 Hours) Vital Signs Temp Pulse Pulse Resp BP Pulse Ox O2 Del Method 02/19/23 11:47 36.5 C 62 16 110/66 93 Room Air 02/19/23 09:00 61 02/19/23 07:38 36.6 C 60 16 126/72 93 Room Air 02/19/23 03:36 36.4 C L 70 20 119/65 96 BiPAP Laboratory Results Coagulation 02/19/23 Range/Units 05:56 APTT 24.9 (21.0-31.0) Seconds CBC 02/19/23 Range/Units 05:56 WBC 6.94 (4.8-10.8) K/ul RBC 4.01 L (4.20-5.40) M/uL Hgb 11.0 L (12.0-16.0) g/dl Hct 34.6 L (37.0-47.0) % Plt Count 266 (130-400) K/uL Comprehensive Metabolic Panel 02/19/23 Range/Units 05:56 Sodium 139 (136-145) mmol/L Potassium 4.5 (3.5-5.1) mmol/L Chloride 104 (98-107) mmol/L Carbon Dioxide 31 (21-32) mmol/L BUN 20 (6-23) mg/dl Creatinine 1.38 H (0.6-1.2) mg/dl Glucose 81 (70-99(Fasting)) mg/dl Calcium 8.8 (8.6-10.3) mg/dl Intake and Output 02/18/23 02/19/23 02/19/23 22:59 06:59 14:59 Intake Total 930 / 1570 390 / 1570 Output Total 2650 / 3600 200 / 3600 Balance -1720 / -2029 190 / -2030 Intake: Oral 930 / 1570 390 / 1570 Output: Urine 2650 / 3600 200 / 3600 Other: Weight 116.5 kg Weight Measurement Method Standing Scale
[2023-02-19] MEDS ORDERED: BENZONATATE 100 MG CAPSULE PO PRN (15:35)
[2023-02-19] MEDS: traZODone HCL 50 MG TAB PO SCH (20:57)
[2023-02-19] MEDS: MAGNESIUM OXIDE 400 MG TAB PO SCH (20:57)
[2023-02-20] MEDS: ONDANSETRON INJ 2 MG/ML 2 ML VIAL IV PRN
[2023-02-20] MEDS ORDERED: hydrOXYzine HCl 25 MG TAB PO STA (00:11)
[2023-02-20] MEDS: HEPARIN SOD 5,000 UNIT/0.5 ML VIAL SQ SCH ×2 (06:00→13:56)
[2023-02-20 07:29] LABS: BUN Creatinine Ratio 19.2 (10-20); Calcium 8.7 mg/dl (8.6-10.3); Creatinine Clr Calc Pharmacy 58.1 ml/min; Est GFR (African American) 54.2 ml/min; Est GFR (Non-African American) 46.7 ml/min; Magnesium 2.3 mg/dl (1.7-2.4); Phosphorus 3.8 mg/dl (2.5-4.9); Potassium 4.3 mmol/L (3.5-5.1)
[2023-02-20 07:38] LABS: Partial Thromboplastin Time 26.6 Seconds (21.0-31.0)
[2023-02-20] MEDS: METOPROLOL TARTRATE 25 MG TAB PO SCH (08:23)
[2023-02-20] MEDS: ASPIRIN 81 MG ECTAB PO SCH (08:23)
[2023-02-20] MEDS: ATORVASTATIN 10 MG TAB PO SCH (08:23)
[2023-02-20] MEDS: LOSARTAN POTASSIUM 25 MG TAB PO SCH (08:23)
[2023-02-20] MEDS: GABAPENTIN 100 MG CAP PO SCH ×2 (08:23→13:56)
[2023-02-20] MEDS: rOPINIRole HCL 2 MG TABLET PO SCH ×2 (08:23→13:56)
[2023-02-20] MEDS: FLUTICASONE PROPIONATE NA SPR 16 GM BTL NAE SCH (08:24)
[2023-02-20] MEDS: UMECLIDINIUM/VILANTEROL 62.5/25MCG 7 PUFFS/INHALER INH SCH (08:24)
[2023-02-20] MEDS: FLUTICASONE FUROATE 200MCG 14 PUFFS/INHALER INH SCH (08:24)
[2023-02-20] MEDS: DOCUSATE SODIUM 100 MG CAP PO SCH (08:28)
--- NOTE | 2023-02-20 08:57 | Hospitalist Progress Note ---
Date of Service February 20, 2023 Assessment & Plan (1) Chest pain: Plan: 68-year-old female with PMH of diastolic heart failure, paroxysmal atrial fibrillation, hypertension, hyperlipidemia, severe STEFANY with nocturnal hypoxemia, NAFLD the, CKD 3, fibromyalgia, mood disorder, aspirin intolerance and other medical problems listed below who presents with chest pain and decompensated heart failure. Left sided CP woke her up, has since resolved EKG with SR with 1st degree AV block. No acute ST changes but nonspecific T wave changes in anterior leads, initial HS troponin negative CTA chest without e/o PE, no consolidation to suggest PNA, moderate cardiomegaly Echo from Aug 2022 with preserved EF, grade 1 diastolic dysfunction Trend troponin, monitor on tele, continue aspirin, statin, beta mitchell (2) Lower extremity edema: (3) Heart failure, diastolic, with acute decompensation: Plan: Worsening orthopnea, BLE edema since Torsemide changed by PCP a few weeks ago from torsemide 20mg BID down to 20mg BID MWF alternating with 20mg daily other days Given 40mg IV Lasix in ED, monitor daily weight, strict I&Os, low sodium diet Routine cards consult for help with diuretic mgmt. Ordering 40mg IV Lasix daily for now Repeat echo obtained -normal LV wall thickness. No regional wall motion abnormalities noted. EF 65 to 70%. Grade 1 diastolic dysfunction. No significant valvular pathology. 02/17 - patient feels improved. Continue with diuresis. Monitor I's and O's. Monitor electrolytes, BMP mag phos ordered for tomorrow morning. Cardiology following 02/18 - pt w/o any chest pain but + for nausea. LLE tense up to mid calf - obtained Doppler - negat. for DVT. Continue diuresis. 02/19 - Cr up today, will put IV lasix on hold. repeat BMP. Plan to DC home on torsemide. 02/20 Pt feels well. Cr 1.2 . discussed w/ cardiology - plan to DC on torsemide 20 mg bid. (4) Hypertension: Plan: Continue to [facility], on Lopressor 25mg BID, losartan 12.5mg daily (5) CKD (chronic kidney disease), stage III: Plan: Baseline Cr ~1.2. Monitor with daily BMP (6) Paroxysmal atrial fibrillation: Plan: Continue BID Lopressor. No longer anticoagulated due to rectal bleeding in the past (7) Restless leg syndrome: Plan: Continue home ropinirole (8) Sleep apnea: Plan: CPAP with 2L O2 bled through HS DVT Ppx: SQ heparin Code status: FULL PCP: Dr. Pizano Dispo: PCU -> home Admission and Anticipated Discharge Date Admission Date: February 17, 2023 Subjective Pt seen in follow up of chest pain, chf exacerbation Currently sitting up in chair, in no acute distress Denies any more chest pain or shortness of breath. She also reports unintentional weight loss overall, in the past several months Cardiology following Review of Systems Review of Systems: All systems reviewed & are unremarkable except as noted in Subjective Physical Exam Physical Exam: General Appearance: morbidly obese F in NAD, sitting up in bed, in NAD, on RA Head: normocephalic, atraumatic Eyes:normal inspection, PERRL ENT: external ear and nose normal, oropharynx normal Neck:thick Respiratory:No accessory muscle use. CTAB Cardiovascular: regular rate, rhythm, normal peripheral pulses, 1+ BLE edema (improved) Chest: normal inspection of chest Abdomen/GI: normal bowel sounds, soft, nontender Extremities/Musculoskeletal: moves extremities Neurologic: PERRL, EOMI, no face palsy, no dysarthria, moves extremities Psychiatric:A+Ox3, euthymic affect Skin: warm/dry Results & Data Results & Data Vital Signs (Past 12 Hours) Vital Signs Temp Pulse Pulse Resp BP Pulse Ox O2 Del Method 02/20/23 07:35 36.8 C 69 14 130/67 94 Room Air 02/20/23 02:37 36.5 C 60 20 102/61 96 BiPAP 02/19/23 23:00 77 02/19/23 22:50 36.8 C 74 18 133/62 95 Room Air Laboratory Results 02/20/23 02/20/23 Range/Units 06:45 06:45 APTT 26.6 (21.0-31.0) Seconds PTT Ratio 1.0 Sodium 139 (136-145) mmol/L Potassium 4.3 (3.5-5.1) mmol/L Chloride 104 (98-107) mmol/L Carbon Dioxide 30 (21-32) mmol/L Anion Gap 5 (3-11) BUN 23 (6-23) mg/dl Creatinine 1.20 (0.6-1.2) mg/dl Est Cr Clr Drug Dosing 58.1 ml/min Est GFR ( Amer) 54.2 ml/min Est GFR (Non-Af Amer) 46.7 ml/min BUN/Creatinine Ratio 19.2 (10-20) Glucose 82 (70-99(Fasting)) mg/dl Calcium 8.7 (8.6-10.3) mg/dl Phosphorus 3.8 (2.5-4.9) mg/dl Magnesium 2.3 (1.7-2.4) mg/dl Medications Administered Current Inpatient Medications Acetaminophen (Acetaminophen 325 Mg Tab) 650 mg PO Q4H PRN PRN Reason: Pain or Fever Stop: 03/18/23 13:53 Albuterol (Albuterol Hfa 8 Gm Inhaler) 2 puffs INH Q6H PRN PRN Reason: Shortness Of Breath Stop: 03/18/23 15:13 Albuterol (Albut/Ipratrop 3mg/0.5mg Neb 3 Ml Vial) 3 ml INH TIDR PRN; Protocol PRN Reason: Wheezing Stop: 03/18/23 18:59 Aspirin (Aspirin 81 Mg Ectab) 81 mg PO QAM [facility] Stop: 03/19/23 08:59 Last Admin: 02/20/23 08:23 Dose: 81 mg Atorvastatin Calcium ([facility]atin 10 Mg Tab) [facility] [place]: 03/19/23 08:59 Last Admin: 02/20/23 08:23 Dose: 10 mg Benzonatate (Benzonatate 100 Mg Capsule) 100 mg PO TID PRN PRN Reason: Cough Stop: 03/21/23 15:34 Last Admin: 02/19/23 20:57 Dose: 100 mg Docusate Sodium (Docusate Sodium 100 Mg Cap) 100 mg PO QAM [facility] Stop: 03/19/23 08:59 Last Admin: 02/20/23 08:28 Dose: 100 mg Ergocalciferol (Ergocalciferol 50,000 Units 1250 Mcg Cap) 50,000 units PO Q31D [facility] Stop: 04/04/23 08:59 Fluticasone Furoate (Fluticasone Furoate 200mcg 14 Puffs/Inhaler) 1 puffs INH DAILY [facility] Stop: 03/19/23 08:59 Last Admin: 02/20/23 08:24 Dose: 1 puffs Fluticasone Propionate (Fluticasone Propionate Na Spr 16 Gm Btl) 2 sprays JONATHAN QAM [facility] Stop: 03/19/23 08:59 Last Admin: 02/20/23 08:24 Dose: 2 sprays Furosemide (Furosemide 40 Mg/4 Ml Vial) 40 mg IV DAILY [facility] Stop: 03/19/23 08:59 Last Admin: 02/19/23 07:58 Dose: 40 mg Gabapentin (Gabapentin 100 Mg Cap) 100 mg PO TID [facility] Stop: 03/18/23 20:59 Last Admin: 02/20/23 08:23 Dose: 100 mg Heparin Sodium (Porcine) (Heparin Sod 5,000 Unit/0.5 Ml Vial) 5,000 units SQ Q8 [facility] Stop: 03/18/23 14:29 Last Admin: 02/20/23 06:00 Dose: 5,000 units Losartan Potassium (Losartan Potassium 25 Mg Tab) 12.5 mg PO QAM [facility] Stop: 03/19/23 08:59 Last Admin: 02/20/23 08:23 Dose: 12.5 mg Magnesium Oxide (Magnesium Oxide 400 Mg Tab) 800 mg PO HS [facility] Stop: 03/18/23 20:59 Last Admin: 02/19/23 20:57 Dose: 800 mg Meclizine HCl (Meclizine Hcl 25 Mg Tab) 25 mg PO DAILY PRN PRN Reason: Dizziness Stop: 03/18/23 15:07 Metoprolol Tartrate (Metoprolol Tartrate 25 Mg Tab) 25 mg PO BID [facility] Stop: 03/18/23 20:59 Last Admin: 02/20/23 08:23 Dose: 25 mg Ondansetron HCl (Ondansetron Inj 2 Mg/Ml 2 Ml Vial) 4 mg IV Q6H PRN PRN Reason: Nausea Stop: 03/18/23 13:53 Last Admin: 02/20/23 00:00 Dose: 4 mg Polyethylene Glycol (Polyethylene (Miralax) 17 Gm Pack) 17 gm PO DAILY PRN PRN Reason: Constipation Stop: 03/18/23 13:53 Ropinirole HCl (Ropinirole Hcl 2 Mg Tablet) 2 mg PO TID [facility] Stop: 03/19/23 08:59 Last Admin: 02/20/23 08:23 Dose: 2 mg Torsemide (Torsemide 20 Mg Tab) 20 mg PO MoWeFr@0800,1700 [facility] Stop: 03/18/23 16:59 Torsemide (Torsemide 20 Mg Tab) 20 mg PO SuTuThSa@0900 [facility] Stop: 03/19/23 08:59 Trazodone HCl (Trazodone Hcl 50 Mg Tab) 150 mg PO [facility] Stop: 03/18/23 20:59 Last Admin: 02/19/23 20:57 Dose: 150 mg Umeclidinium/Vilanterol (Umeclidinium/Vilanterol 62.5/25mcg 7 Puffs/Inhaler) 1 puffs INH DAILY [facility] Stop: 03/19/23 08:59 Last Admin: 02/20/23 08:24 Dose: 1 puffs (1) Chest pain Chest pain type: unspecified Qualified Code(s): R07.9 - Chest pain, unspecified
--- NOTE | 2023-02-20 13:46 | Cardiology Progress Note ---
Date of Service February 20, 2023 Assessment & Plan (1) Heart failure, diastolic, with acute decompensation: Plan: IV diuretics discontinued. Resume torsemide 20 mg oral twice daily. Repeat basic metabolic panel in 1 week as an outpatient. Outpatient cardiology follow- up in 2 weeks. (2) Paroxysmal atrial fibrillation: Plan: Sinus rhythm noted on telemetry without atrial fibrillation. Continue metoprolol to tartrate 25 mg twice daily. As noted in outpatient chart, she is not on anticoagulation due to past hemorrhoidal bleeding. DVT prophylaxis: Continue subcutaneous heparin. Admission and Anticipated Discharge Date Admission Date: February 17, 2023 Subjective 68-year-old female mated with chest discomfort and acute decompensated diastolic heart failure. Feeling better with IV diuretics over the past 72 hours. No recurrent chest discomfort since admission. Serum creatinine trending downward today. No orthopnea or PND. Telemetry reveals sinus rhythm. Review of Systems Review of Systems: All systems reviewed & are unremarkable except as noted in Subjective Physical Exam Constitutional: well nourished; no acute distress Respiratory: no respiratory distress, no labored breathing and no retractions Auscultation: no crackles, no rales, no rhonchi and no wheezes Cardiovascular: Rate/Rhythm: regular rate and regular rhythm Heart Sounds: normal S1 and normal S2; no murmur Vessels: radial pulses present; no JVD and no carotid bruit Extremities: no edema Gastrointestinal (Abdomen): Inspection/Auscultation: normal bowel sounds; abdomen not distended Percussion/Palpation: abdomen soft; abdomen nontender, no guarding and abdomen not rigid Neurologic: CN's II-XI intact bilaterally and moves all extremities; no focal motor deficits Psychiatric: Orientation: alert and oriented x 3 Results & Data Vital Signs (Past 12 Hours) Vital Signs Temp Pulse Pulse Resp BP Pulse Ox O2 Del Method 02/20/23 11:46 36.8 C 65 19 109/64 93 Room Air 02/20/23 07:30 57 L 02/20/23 07:35 36.8 C 69 14 130/67 94 Room Air 02/20/23 02:37 36.5 C 60 20 102/61 96 BiPAP
--- NOTE | 2023-02-20 15:43 | Discharge Summary ---
Date of Service February 20, 2023 Admission HPI Per Admitting Provider This is a 68-year-old female with PMH of diastolic heart failure, paroxysmal atrial fibrillation, hypertension, hyperlipidemia, severe STEFANY with nocturnal hypoxemia, NAFLD the, CKD 3, fibromyalgia, mood disorder, aspirin intolerance and other medical problems listed below who presents with chest pain starting this morning. Woke up with pain on the left side of her chest under her breast with associated shortness of breath. Pain felt like "a ton of bricks" on her chest. Resolved by the time she presented in the ED. States she had diuretics adjusted a few weeks ago in clinic and ever since then, has felt has a history of diastolic heart failure with most recent echo from January 2021 with EF 55-59% and mild MRCarlitos Follows with Dr. Shipman who had reduced torsemide to 20mg BID MWF and 20mg daily all other days back in late 2021 due to evidence of volume depletion on labwork per chart review. Patient then developed some leg swelling and PCP note from December 2022 states that patient had been taking torsemide 40mg daily up until a few weeks ago, when he changed dose to 40 mg MWF and 20mg all other days. Since then, patient has noted increased leg swelling worsened orthopnea. States she gained weight over the past few days despite taking medication. Has been feeling more fatigued lately. States she is using her CPAP with O2 bled through HS as instructed. Denies any fever or chills. No lightheadedness, palpitations, wheezing, nausea, vomiting, abdominal pain, dysuria, diarrhea or constipation. Admission Exam Per Admitting Provider General Appearance:WD/WN, vitals as above, NAD, sitting up in bed, pleasant, conversing easily, morbidly obese Head: normocephalic, atraumatic Eyes:normal inspection, PERRL, conjunctivae normal, anicteric sclerae ENT: external ear and nose normal, oropharynx normal Neck: normal visual inspection, trachea midline, no thyromegaly Respiratory:increased respiratory effort, lungs clear to auscultation, no wheeze, rales, rhonchi. No accessory muscle use Cardiovascular: regular rate, rhythm, normal peripheral pulses, 1-2+ BLE edema. Vessels: + JVD Chest: normal inspection of chest Abdomen/GI: normal bowel sounds, soft, nontender, no hepatosplenomegaly Extremities/Musculoskeletal: no cyanosis or clubbing, extremities motor strength 5/5 Neurologic: PERRL, EOMI, accommodation nl, no face palsy, no dysarthria, CN's II-XI intact bilaterally and moves all extremities Psychiatric:A+Ox3, euthymic affect Skin: no rashes, normal color, warm/dry Principal Diagnosis Chest pain, chf exacerbation Discharge Exam General Appearance: morbidly obese F in NAD, sitting up in bed, in NAD, on RA Head: normocephalic, atraumatic Eyes:normal inspection, PERRL ENT: external ear and nose normal, oropharynx normal Neck:thick Respiratory:No accessory muscle use. CTAB Cardiovascular: regular rate, rhythm, normal peripheral pulses, 1+ BLE edema (improved) Chest: normal inspection of chest Abdomen/GI: normal bowel sounds, soft, nontender Extremities/Musculoskeletal: moves extremities Neurologic: PERRL, EOMI, no face palsy, no dysarthria, moves extremities Psychiatric:A+Ox3, euthymic affect Skin: warm/dry Discharge Data Allergies Allergy/AdvReac Type Severity Reaction Status Date / Time sulindac Allergy Intermediate HIVES Verified 08/08/22 08:03 adhesive Allergy Mild "Tape" -- Verified 08/08/22 08:03 blisters cyclobenzaprine Allergy Mild RASH Verified 08/08/22 08:03 acetaminophen [From Tylenol] AdvReac Severe restless Verified 08/08/22 08:03 legs hydrochlorothiazide AdvReac Intermediate COUGH Verified 08/08/22 08:03 triamterene AdvReac Intermediate COUGH Verified 08/08/22 08:03 lisinopril AdvReac Mild Cough Verified 08/08/22 08:03 tetanus toxoid, adsorbed AdvReac Mild IRRITABILIT Verified 08/08/22 08:03 Y Consultations 02/16/23 13:27 ED Decision to Admit Stat 02/17/23 07:00 Consult Cardiology Routine Ordered Studies 02/16/23 11:50 CT angio chest PE protocol Stat FINDINGS: No pulmonary emboli are identified. There is no thoracic aortic dissection. Moderate cardiomegaly is noted. There is no thoracic lymphadenopathy. No enlarged axillary, mediastinal or hilar lymph nodes are present. Groundglass opacities within lungs favor atelectasis. There is no consolidation to suggest pneumonia. Mild bronchial wall thickening is present. No acute fractures within the bony thorax are noted. Left shoulder arthroplasty is incidentally noted. IMPRESSION: 1. No pulmonary emboli identified. 2. No consolidation to suggest pneumonia. 3. Mild bronchial wall thickening. 4. Moderate cardiomegaly. 02/18/23 10:26 US venous doppler LE LT Routine FINDINGS: There is no sonographic evidence of deep venous thrombosis identified in the left lower extremity. The common femoral, superficial femoral, and popliteal veins are patent and normally compressible. The greater saphenous vein and the profunda femoris vein at the junction with the common femoral vein are clear. The visualized calf veins are patent. IMPRESSION: There is no sonographic evidence of deep venous thrombosis identified in the left lower extremity. Hospital Course (1) Chest pain: 68-year-old female with PMH of diastolic heart failure, paroxysmal atrial fibrillation, hypertension, hyperlipidemia, severe STEFANY with nocturnal hypoxemia, NAFLD the, CKD 3, fibromyalgia, mood disorder, aspirin intolerance and other medical problems listed below who presents with chest pain and decompensated heart failure. Left sided CP woke her up, has since resolved EKG with SR with 1st degree AV block. No acute ST changes but nonspecific T wave changes in anterior leads, initial HS troponin negative CTA chest without e/o PE, no consolidation to suggest PNA, moderate cardiomegaly Echo from Aug 2022 with preserved EF, grade 1 diastolic dysfunction Trend troponin, monitor on tele, continue aspirin, statin, beta mitchell (2) Lower extremity edema: (3) Heart failure, diastolic, with acute decompensation: Worsening orthopnea, BLE edema since Torsemide changed by PCP a few weeks ago from torsemide 20mg BID down to 20mg BID MWF alternating with 20mg daily other days Given 40mg IV Lasix in ED, monitor daily weight, strict I&Os, low sodium diet Routine cards consult for help with diuretic mgmt. Ordering 40mg IV Lasix daily for now Repeat echo obtained -normal LV wall thickness. No regional wall motion abnormalities noted. EF 65 to 70%. Grade 1 diastolic dysfunction. No significant valvular pathology. 02/17 - patient feels improved. Continue with diuresis. Monitor I's and O's. Monitor electrolytes, BMP mag phos ordered for tomorrow morning. Cardiology following 02/18 - pt w/o any chest pain but + for nausea. LLE tense up to mid calf - obtained Doppler - negat. for DVT. Continue diuresis. 02/19 - Cr up today, will put IV lasix on hold. repeat BMP. Plan to DC home on torsemide. 02/20 Pt feels well. Cr 1.2 . discussed w/ cardiology - plan to DC on torsemide 20 mg bid. (4) Hypertension: Continue to montior, on Lopressor 25mg BID, losartan 12.5mg daily (5) CKD (chronic kidney disease), stage III: Baseline Cr ~1.2. Monitor with daily BMP (6) Paroxysmal atrial fibrillation: Continue BID Lopressor. No longer anticoagulated due to rectal bleeding in the past (7) Restless leg syndrome: Continue home ropinirole (8) Sleep apnea: CPAP with 2L O2 bled through HS Unintentional weight loss -Current weight 116 kg, BMI 42.8 -Patient reports significant weight loss over several months, unintentionally -Recommend follow-up with PCP for further work-up, making sure recommended cancer screenings done Total Time Total Time Spent Total Time Spent (In Minutes): 40 Discharge Plan Discharge Items Patient Disposition: Home - Self-Care Reason For Visit: CP RULE OUT Discharge Diagnosis: Chest pain, chf exacerbation Activity: Per Instructions section Non-emergency contact: Primary Care Provider and Gauge Inspector Call non-emergency contact if: you have any medication questions and your symptoms worsen Follow-up/Referrals: Sotero Pizano MD [Primary Care Provider] - (Date & Time 02/23/2023 1:00 PM Provider Sotero Pizano MD Department [facility] ) Diet: Heart Healthy and Low Sodium (2gm) Addtl Attending Provider Instructions: 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 The appointment with your primary care physician was scheduled for you for February 23. Continue taking metoprolol 25 mg twice a day. Continue taking torsemide 20 mg twice a day. Addtl Sales Negotiator Provider Instructions: Call your Primary Care doctor if any of the following symptoms or problems start or get worse: * Shortness of breath or difficulty breathing * Wake up at night short of breath * Chest pain * Cough * Swelling of your hands, feet, or legs * More fatigued or tired with your normal activity * Palpitations - sudden fast heart beats WEIGHT * Weigh yourself every morning after using the bathroom. * Use the same scale. * Wear the same amount of clothing. * Write your weight down on a chart. * Call your Primary Care doctor if you gain more than 2-3 pounds in 1-2 days. MEDICATIONS * Use this discharge instruction sheet for medication instructions. * Take your medications at the time your doctor ordered. * Do not skip a dose of your medicines. * If you miss a dose of medicine, take it as soon as possible, but DO NOT DOUBLE A DOSE. * Read your medicine information when you get home. * Know all of the side effects of your medicine. If in doubt, ask your pharmacist * Call your Primary Care doctor's office if you have any side effects. * Be sure all of your doctors know what medicine and herbs you take (including cold, flu, and herbal medicine). Take the following with you to your follow-up doctor appointments: * Weight Chart * Medication List * List of questions Do not drink excessive alcohol, beer or wine. Pending Studies at Discharge: No Stand-Alone Forms: My [facility] [employer], Smoking Cessation Medications and DC Order Prescriptions: New torsemide 10 mg Tablet 20 mg PO BID Qty: 30 0RF Continued ondansetron HCl [Zofran] 4 mg Tablet 4 mg PO DIRECTED PRN (Reason: Nausea) aspirin 81 mg tablet,delayed release (DR/EC) 81 mg PO QAM metoprolol tartrate 50 mg tablet 25 mg PO BID fluticasone propionate [Flonase Allergy Relief] 50 mcg/actuation Spra y,Suspension 2 spray INTRANASAL QAM losartan [Cozaar] 25 mg Tablet 12.5 mg PO QAM ergocalciferol (vitamin D2) [Vitamin D2] 1,250 mcg (50,000 unit) Capsule 1,250 mcg PO MONTHLY docusate sodium [Colace] 100 mg Capsule 100 mg PO QAM gabapentin 100 mg Capsule 100 mg PO TID ropinirole 2 mg Tablet 2 mg PO TID magnesium 500 mg Tablet 500 mg PO HS atorvastatin 10 mg Tablet 10 mg PO QAM ipratropium-albuterol 0.5 mg-3 mg(2.5 mg base)/3 mL Solution For Nebulization 3 ml INHALATION TID albuterol sulfate 90 mcg/actuation Aero Powdr Breath Act W/Sensor 2 inh INHALATION Q6H PRN (Reason: Shortness Of Breath) Trelegy Ellipta 200-62.5-25 mcg Blister With Device 1 inh INHALATION QAM meclizine 25 mg Tablet 25 mg PO DAILY PRN (Reason: Dizziness) trazodone 100 mg Tablet 150 mg PO HS Discontinued torsemide 20 mg tablet 20 mg PO UD Rx Instructions: 1 tab twice daily MoWeFr and 20mg all other days Discharge Orders: Discharge Order (Routine); Ordered 02/20/23 Ordered By: Alberto Krause Admission Data Admit Date/Time: 02/17/23 15:42 Attending Provider: Alberto Krause Admit Provider: Ben Arias Primary Care Provider: Sotero Pizano Other Providers: Ben Arias ; Leonides Olivera
[2023-02-20] MEDS ORDERED: TORSEMIDE 10 MG TAB PO SCH (21:00)
[2023-03-05] MEDS ORDERED: ERGOCALCIFEROL 50,000 UNITS 1250 MCG CAP PO SCH (09:00)
== END 2023-02-20 16:21 | disposition home or self-care (01) | DRG 291 ==
LOC: ED 10:04 → EDINP 10:04 → SUATTDRO 13:36 → 2E 13:43

== ENCOUNTER 2023-11-14 23:41 | Inpatient (IN) ==
--- NOTE | 2023-11-15 00:13 | Emergency Department Note ---
Impression & Plan Dyspnea, Respiratory syncytial virus (RSV), Hypokalemia, Failure of outpatient treatment ED Provider Note ED Provider Note NAME: MARLENE GARSIA AGE:68 SEX: Female : 1955 ARRIVES VIA: private vehicle INFORMANT: Patient ED PROVIDER(s): Luz Rey DO CHIEF COMPLAINT: Shortness of breath HPI: This is a 68-year-old female presents emergency room due to concern for increased shortness of breath. Patient states she first began with an upper respiratory infection 3 weeks ago and had a lot of congestion and cough which made her slightly more short of breath. Patient does take a diuretic daily and has a history of congestive heart failure. She does do daily weights. She states she has felt her breathing was worse in recent days and did contact her commissary helper who told her she can take extra of her diuretic. She states she was instructed to take 40 mg of torsemide instead of 30 mg daily for 3 days total. She states she did drop weight as a result and thought she was beginning to improve. She states today her breathing felt worse and her weight was up 3 pounds. She states tonight she could not get comfortable to sleep and had to sit upright. No history of asthma or COPD. She states she did feel she had lower extremity edema today as well. PAST MEDICAL HISTORY:See Below PAST SURGICAL HISTORY:See Below FAMILY HISTORY:See Below SOCIAL HISTORY:See Below HOME MEDICATIONS:See Below ALLERGIES:See Below VITALS:See Below PHYSICAL EXAMINATION: GENERAL: alert, well appearing, well nourished, no distress, non-toxic EYE EXAM: normal conjunctiva, PERRL and EOM's grossly intact EARS: TM's without erythema b/l, small trace effusion on right OROPHARYNX: no exudate, no erythema, lips, buccal mucosa, and tongue normal and mucous membranes are moist NECK: supple, no nuchal rigidity, no adenopathy, non-tender LUNGS: Clear to auscultation. Normal chest wall mechanics, scattered b/l wheeze, bibasilar rales HEART: no murmurs, S1 normal and S2 normal ABDOMEN: abdomen soft, non-tender, normo-active bowel sounds, no masses, no rebound or guarding. BACK: Back is symmetrical on inspection and there is no deformity, no midline tenderness, no CVA tenderness. SKIN: no rashes, petechiae, orbruising UPPER EXTREMITIES: upper extremities are grossly normal. FROM, nml pulses b/l. LOWER EXTREMITIES: 1+ b/l pedal pitting edema. FROM, nml pulses b/l. NEURO EXAM: Normal sensorium, cranial nerves II-XII grossly intact, normal speech, no facial droop,nogross weakness of arms, no gross weakness of legs. Gross sensation intact. No ataxia. Vital Signs: reviewed and remarkable Differential Diagnosis: pneumonia, bronchitis, COPD/Asthma exacerbation, pneumothorax, pulmonary embolism, congestive heart failure, acute coronary syndrome, as well as others were considered MEDICAL DECISION MAKING: This is a 68-year-old female presents emergency department due to concern for increased shortness of breath and history of CHF. Patient afebrile vital signs stable here. Patient with recent URI symptoms additionally. Labs drawn and sent, IV established, EKG and chest x-ray performed bedside interpreted by me and patient monitored on telemetry. Nasal swab sent additionally. Patient found to be positive for RSV which likely explains a 3 weeks of URI symptoms. Patient markedly dyspneic with ambulation to the bathroom although not overtly hypoxic. Chest x-ray suggestive of possible evolving pulmonary edema. Given recent trial of increased diuretics at home, accompanying RSV and known history of CHF, case discussed with the hospitalist for additional evaluation and management. I discussed all results with the patient and she was uncomfortable given her worsening condition and increased difficulty breathing. I feel PE less likely despite no current anticoagulation due to history of bleeding problems. I do not suspect ACS, pericardial effusion, pneumonia, pericarditis/myocarditis. Patient was given oral potassium repletion here. Consultation(s): 0510: Discussed with Dr. Noland, [facility] hospitalist, for additional evaluation and mgmt. ER Treatment Provided: See below Diagnostics Interpreted By Me: -ECG: Normal sinus at 72, first-degree AV block, normal axis, normal intervals, no acute ST/T wave changes -Cardiac Monitoring: An order was placed for continuous cardiac monitoring. The monitor shows a rate of 80 with normal sinus rhythm. -Laboratory studies: As stated above and show below. -Imaging studies: X-ray Chest: A single view study of the chest was reviewed and was negative for cardiomegaly, focal infiltrate, effusion, or wide mediastinum. Increased interstitial markings b/l. Triage Nursing Note Reviewed Prior/Outside Records Reviewed -prior cardiology visit reviewed Past Med/Surg History Medical History CKD (chronic kidney disease), stage III Dyspnea nebulizer/inhaler daily and prn On home oxygen therapy 2L via CPAP at HS History of COVID-19 diagnosed 11/2021--mild symptoms, no symptoms now Restless leg Morbid obesity with BMI of 45.0-49.9, adult Osteoarthritis Fibromyalgia Hiatal hernia History of basal cell carcinoma Depression Anxiety History of migraine Brain aneurysm s/p repair (2018) CHF (congestive heart failure) follows with [facility] cardio Sleep apnea CPAP with 2L at HS Atrial fibrillation dx 2016--intermittent--on metoprolol--follows with Dr. Shipman Hypertension Surgical History History of esophagogastroduodenoscopy (EGD) last 2019 @ [facility] H/O cerebral aneurysm repair 2018 - [facility] [place] - follows [facility] neurosurgery Slow to wake up after anesthesia Awareness under anesthesia History of eyelid surgery History of tonsillectomy History of benign breast biopsy History of section History of total abdominal hysterectomy and bilateral salpingo-oophorectomy History of exploratory laparotomy History of colonoscopy last 2019 @ [facility] History of basal cell carcinoma (BCC) excision Family History Other Diabetes Heart disease Hypertension No family history of adverse response to anesthesia Social History Smoking Status: Smoker, status unknown Second Hand Exposure: No; Do You Dip or Chew Tobacco: No; Hx Alcohol Use: No Hx Substance Use: No Preferred Language: Mohawk Communication Ability: Effective 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: No Beliefs That Will Affect Care: None Current Living Situation: Spouse Feels Safe at Home: Yes Safety Concerns: Feels Safe At This Time Assistive Devices: None Allergies Allergies Allergy/AdvReac Type Severity Reaction Status Date / Time adhesive Allergy Intermediate "Tape" -- Verified 11/15/23 00:50 blisters azithromycin Allergy Intermediate Rash Verified 11/15/23 00:50 cyclobenzaprine Allergy Intermediate RASH Verified 11/15/23 00:50 duloxetine [From Cymbalta] Allergy Intermediate RASH/NAUSEA Verified 11/15/23 00:50 /VOMITING sulindac Allergy Intermediate HIVES Verified 11/15/23 00:50 amoxicillin Allergy Unknown PER [facility] Verified 11/15/23 00:50 MED LIST acetaminophen [From Tylenol] AdvReac Severe restless Verified 11/15/23 00:50 legs hydrochlorothiazide AdvReac Intermediate COUGH Verified 11/15/23 00:50 hydrocodone AdvReac Intermediate AGGRAVATES Verified 11/15/23 00:50 RLS lisinopril AdvReac Intermediate Cough Verified 11/15/23 00:50 oxycodone AdvReac Intermediate AGGRAVATES Verified 11/15/23 00:50 RLS ropinirole [From Requip] AdvReac Intermediate Tachycardia Verified 11/15/23 00:50 tetanus toxoid, adsorbed AdvReac Intermediate IRRITABILIT Verified 11/15/23 00:50 Y triamterene AdvReac Intermediate COUGH Verified 11/15/23 00:50 Home Meds Home Medications Medication Instructions Recorded Confirmed aspirin 81 mg tablet,delayed 81 mg PO QAM 02/09/19 11/15/23 release fluticasone propionate 50 2 spray intranasal QAM 02/09/19 11/15/23 mcg/actuation nasal spray,suspension (Flonase Allergy Relief) ergocalciferol (vitamin D2) 1,250 1,250 mcg PO MONTHLY 04/30/20 11/15/23 mcg (50,000 unit) capsule (Vitamin D2) losartan 25 mg tablet (Cozaar) 12.5 mg PO QAM 04/30/20 11/15/23 atorvastatin 10 mg tablet 10 mg PO QAM 07/20/22 11/15/23 docusate sodium 100 mg capsule 100 mg PO BID 07/20/22 11/15/23 (Colace) ipratropium 0.5 mg-albuterol 3 mg 3 ml inhalation TID 07/20/22 11/15/23 (2.5 mg base)/3 mL nebulization soln ropinirole 2 mg tablet 4 mg PO BID 07/20/22 11/15/23 albuterol sulfate 90 mcg/actuation 2 puff inhalation Q4H PRN 11/15/23 11/15/23 aerosol inhaler (Proventil HFA) CONGESTION/COUGH/WHEEZING cholecalciferol (vitamin D3) 25 50 mcg PO DAILY 11/15/23 11/15/23 mcg (1,000 unit) capsule (Vitamin D3) cyanocobalamin (vitamin B-12) 1,000 mcg PO DAILY 11/15/23 11/15/23 1,000 mcg tablet (Vitamin B-12) magnesium oxide 400 mg PO DAILY 11/15/23 11/15/23 meclizine 12.5 mg tablet 12.5 mg PO TID PRN Dizziness 11/15/23 11/15/23 metoprolol succinate 25 mg 25 mg PO DAILY 11/15/23 11/15/23 tablet,extended release 24 hr ondansetron HCl 4 mg tablet 4 mg PO Q8H PRN NAUSEA/VOMITING 11/15/23 11/15/23 potassium chloride 20 mEq 20 meq PO BID 11/15/23 11/15/23 tablet,extended release(part/cryst) sennosides 8.6 mg tablet (senna) 8.6 mg PO DAILY 11/15/23 11/15/23 torsemide 10 mg tablet See Rx Instructions .Route .COMPLEX 11/15/23 11/15/23 trazodone 150 mg tablet 150 mg PO HS 11/15/23 11/15/23 triamcinolone acetonide 0.05 % 1 applic topical BID PRN Skin 11/15/23 11/15/23 topical ointment Irritation Results & Data (ED) Vital Signs Vital Signs - 24 hr 11/15/23 03:02 11/15/23 03:30 11/15/23 04:00 Pulse Rate 75 74 71 Respiratory Rate 15 12 16 Blood Pressure 156/67 H 115/57 L 138/66 Blood Pressure Mean 96 76 90 Pulse Oximetry 98 95 97 Oxygen Delivery Method Nasal Cannula Nasal Cannula Nasal Cannula Oxygen Flow Rate 2 2 2 11/15/23 04:22 11/15/23 04:30 11/15/23 05:00 Pulse Rate 78 85 79 Respiratory Rate 20 13 Blood Pressure 139/77 115/63 Blood Pressure Mean 97 80 Pulse Oximetry 97 97 Oxygen Delivery Method Nasal Cannula Nasal Cannula Oxygen Flow Rate 2 2 11/15/23 05:30 11/15/23 06:16 Pulse Rate 75 74 Respiratory Rate 15 21 Blood Pressure 183/87 H 134/64 Blood Pressure Mean 119 87 Pulse Oximetry 94 95 Oxygen Delivery Method Room Air Oxygen Flow Rate Laboratory Data 11/15/23 00:20 11/15/23 00:20 Lab Results 11/15/23 Range/Units 00:20 WBC 7.17 (4.8-10.8) K/ul RBC 4.25 (4.20-5.40) M/uL Hgb 13.1 (12.0-16.0) g/dl Hct 39.9 (37.0-47.0) % MCV 93.9 (80.0-100.0) fL MCH 30.8 (25.0-34.0) pg MCHC 32.8 (32.0-36.0) g/dL RDW Std Deviation 46.9 H (36.4-46.3) fL RDW Coeff of Anurag 13.7 (11.5-14.5) % Plt Count 222 (130-400) K/uL MPV 9.9 (9.4-12.4) fL Immature Gran % (Auto) 0.8 % Neut % (Auto) 66.8 % Lymph % (Auto) 17.3 % [place] % (Auto) 10.6 % Eos % (Auto) 4.2 % Baso % (Auto) 0.3 % Neut # (Auto) 4.79 (1.40-6.50) K/uL Lymph # (Auto) 1.24 (1.20-3.40) K/uL [place] # (Auto) 0.76 H (0.11-0.59) K/uL Eos # (Auto) 0.30 (0.00-0.50) K/uL Baso # (Auto) 0.02 (0.00-0.20) K/uL Immature Gran # (Auto) 0.06 (0.01-0.20) K/uL PT 10.9 (9.0-12.0) Seconds INR 1.0 (0.9-1.1) Sodium 138 (136-145) mmol/L Potassium 3.2 L (3.5-5.1) mmol/L Chloride 99 (98-107) mmol/L Carbon Dioxide 30 (21-32) mmol/L Anion Gap 9 (3-11) BUN 17 (6-23) mg/dl Creatinine 1.13 (0.6-1.2) mg/dl Est Cr Clr Drug Dosing 61.2 ml/min Est GFR ( Amer) 58.2 ml/min Est GFR (Non-Af Amer) 50.3 ml/min BUN/Creatinine Ratio 15.0 (10-20) Glucose 88 (70-99(Fasting)) mg/dl Calcium 8.7 (8.6-10.3) mg/dl Magnesium 2.1 (1.7-2.4) mg/dl Total Bilirubin 0.5 (0.2-1.0) mg/dl AST 15 (13-39) U/L ALT 13 (7-52) U/L Alkaline Phosphatase 106 H (34-104) U/L Troponin I High Sens 4.6 (0-14) pg/ml B-Natriuretic Peptide 20 (0-100) pg/ml Total Protein 7.3 (6.0-8.3) gm/dl Albumin 3.9 (3.4-5.0) gm/dl Globulin 3.4 (2.5-4.0) gm/dl Albumin/Globulin Ratio 1.1 (0.9-2) TSH 5.675 H (0.300-4.500) uIu/ml Free T4 0.98 (0.61-1.60) ng/dl Adenovirus (PCR) Not Detected (NotDetected) B. pertussis DNA (PCR) Not Detected (NotDetected) B.parapertussis DNA PCR Not Detected (NotDetected) C. pneumoniae DNA (PCR) Not Detected (NotDetected) Coronavirus OC43 (PCR) Not Detected (NotDetected) Coronavirus HKU1 (PCR) Not Detected (NotDetected) Coronavirus 229E (PCR) Not Detected (NotDetected) SARS-CoV-2 (PCR) Not Detected (NotDetected) Coronavirus NL63 (PCR) Not Detected (NotDetected) Human Metapneumovir PCR Not Detected (NotDetected) Influenza Type A (PCR) Not Detected (NotDetected) Influenza Type B (PCR) Not Detected (NotDetected) M. pneumoniae (PCR) Not Detected (NotDetected) Parainfluenza 1 (PCR) Not Detected (NotDetected) Parainfluenza 2 (PCR) Not Detected (NotDetected) Parainfluenza 3 (PCR) Not Detected (NotDetected) Parainfluenza 4 (PCR) Not Detected (NotDetected) RSV (PCR) DETECTED A* (NotDetected) Entero/Rhino (PCR) Not Detected (NotDetected) Administered Medications Aspirin (Aspirin 81 Mg Ectab) [facility] Stop: 12/15/23 08:59 Last Admin: 11/15/23 10:58 Dose: 81 mg Documented By: TELMA Atorvastatin Calcium (Atorvastatin 10 Mg Tab) 10 mg PO [facility] Stop: 12/15/23 08:59 Last Admin: 11/15/23 10:58 Dose: 10 mg Documented By: TELMA Cyanocobalamin (Cyanocobalamin (B-12) 500 Mcg Tablet) 1,000 mcg PO DAILY [facility] Stop: 12/15/23 08:59 Last Admin: 11/15/23 10:57 Dose: 1,000 mcg Documented By: TELMA Docusate Sodium (Docusate Sodium 100 Mg Cap) 100 mg PO BID [facility] Stop: 12/15/23 08:59 Last Admin: 11/15/23 20:15 Dose: Not Given Documented By: Admin: 11/15/23 10:59 Dose: Not Given Documented By: TELMA Enoxaparin Sodium (Enoxaparin Inj 40 Mg/0.4 Ml Syr) 40 mg SQ [facility] Stop: 12/15/23 08:59 Last Admin: 11/15/23 10:59 Dose: 40 mg Documented By: TELMA Fluticasone Propionate (Fluticasone Propionate Na Spr 16 Gm Btl) 2 sprays NA [facility] Stop: 12/15/23 08:59 Last Admin: 11/15/23 10:58 Dose: 2 sprays Documented By: TELMA Guaifenesin/Dextromethorphan (Guaifenesin/Dextrom Syrup 200mg/20mg 10ml Udc) 10 ml PO Q6H PRN PRN Reason: Cough Stop: 12/15/23 12:34 Last Admin: 11/15/23 20:12 Dose: 10 ml Documented By: Admin: 11/15/23 13:16 Dose: 10 ml Documented By: TELMA Promethazine HCl 12.5 mg/ (Sodium Chloride) 50.5 mls @ 202 mls/hr IV Q6H PRN PRN Reason: Nausea And Vomiting Stop: 12/15/23 06:24 Last Admin: 11/16/23 02:42 Dose: 202 mls/hr Documented By: Infusion: 11/15/23 18:35 Dose: Infused Documented By: Admin: 11/15/23 18:14 Dose: 202 mls/hr Documented By: DEANDRA Ipratropium [place] (Ipratropium [place] Neb Soln 0.02% 2.5 Ml Vial) 0.5 mg INH QIDR [facility] Stop: 12/15/23 06:59 Last Admin: 11/15/23 19:34 Dose: 0.5 mg Documented By: Admin: 11/15/23 15:17 Dose: 0.5 mg Documented By: Admin: 11/15/23 10:58 Dose: 0.5 mg Documented By: Admin: 11/15/23 09:34 Dose: 0.5 mg Documented By: [id number] Levalbuterol HCl (Levalbuterol 1.25 Mg/3 Ml Neb) 1.25 mg NEB QIDR [place] Stop: 12/15/23 06:59 Last Admin: 11/15/23 19:34 Dose: 1.25 mg Documented By: Admin: 11/15/23 15:17 Dose: 1.25 mg Documented By: Admin: 11/15/23 10:59 Dose: 1.25 mg Documented By: Admin: 11/15/23 09:33 Dose: 1.25 mg Documented By: [id number] Metoprolol Succinate (Metoprolol Succ 25mg Ext Rel Tab) 25 mg PO DAILY [facility] Stop: 12/15/23 08:59 Last Admin: 11/15/23 10:57 Dose: 25 mg Documented By: TELMA Potassium Chloride (Potassium Chloride Crtab 20 Meq Tabcr) 20 meq PO BID [facility] Stop: 12/15/23 08:59 Last Admin: 11/15/23 20:13 Dose: 20 meq Documented By: Admin: 11/15/23 10:57 Dose: 20 meq Documented By: TELMA Ropinirole HCl (Ropinirole Hcl 2 Mg Tablet) 4 mg PO BID [facility] Stop: 12/15/23 08:59 Last Admin: 11/15/23 20:12 Dose: 4 mg Documented By: Admin: 11/15/23 10:56 Dose: 4 mg Documented By: TELMA Sennosides (Senna 8.6 Mg Tab) 8.6 mg PO DAILY [facility] Stop: 12/15/23 08:59 Last Admin: 11/15/23 10:59 Dose: Not Given Documented By: TELMA Trazodone HCl (Trazodone Hcl 50 Mg Tab) 150 mg PO HS [facility] Stop: 12/15/23 20:59 Last Admin: 11/15/23 20:12 Dose: 150 mg Documented By: LUIS Discontinued Medications Albuterol (Albuterol Hfa 8 Gm Inhaler) 2 puffs INH NOW ONE Stop: 11/15/23 04:36 Last Admin: 11/15/23 04:40 Dose: 2 puffs Documented By: ELTON Benzonatate (Benzonatate 100 Mg Capsule) 100 mg PO NOW ONE Stop: 11/15/23 03:09 Last Admin: 11/15/23 03:38 Dose: 100 mg Documented By: ELTON Furosemide (Furosemide 40 Mg/4 Ml Vial) 40 mg IV ONE ONE Stop: 11/15/23 03:15 Last Admin: 11/15/23 03:38 Dose: 40 mg Documented By: ELTON Losartan Potassium (Losartan Potassium 25 Mg Tab) 25 mg PO NOW STA Stop: 11/15/23 06:18 Last Admin: 11/15/23 07:04 Dose: 25 mg Documented By: ELTON Potassium Chloride (Potassium Chloride Crtab 20 Meq Tabcr) 40 meq PO NOW STA Stop: 11/15/23 01:10 Last Admin: 11/15/23 01:30 Dose: 40 meq Documented By: ELTON Discharge Plan Visit Data Chief Complaint: Respiratory Problems Stated Complaint: HARD TO BREATHE ED Provider: Luz Rey Discharge Problem: Dyspnea, Respiratory syncytial virus (RSV), Hypokalemia, Failure of outpatient treatment Patient Disposition: Admitted As Inpatient Discharge Instructions Interventions: ED Discharge Assessment Last Done: 11/15/23 07:03
[2023-11-15 00:40] LABS: Basophils % (auto) 0.3 %; Eosinophils % (auto) 4.2 %; Hematocrit (blood only) 39.9 % (37.0-47.0); Hemoglobin 13.1 g/dl (12.0-16.0); Immature Granulocytes % (auto) 0.8 %; Lymphocytes # (auto) 1.24 K/uL (1.20-3.40); Lymphocytes % (auto) 17.3 %; Mean Corpuscular Hemoglobin 30.8 pg (25.0-34.0); Mean Corpuscular Hgb Conc 32.8 g/dL (32.0-36.0); Mean Corpuscular Volume 93.9 fL (80.0-100.0); Mean Platelet Volume 9.9 fL (9.4-12.4); Monocytes # (auto) 0.76 K/uL (0.11-0.59); Monocytes % (auto) 10.6 %; Neutrophils # (auto) 4.79 K/uL (1.40-6.50); Neutrophils % (auto) 66.8 %; Platelet Count 222 K/uL (130-400); RDW Coefficient of Variation 13.7 % (11.5-14.5); RDW Standard Deviation 46.9 fL (36.4-46.3); Red Blood Count 4.25 M/uL (4.20-5.40); White Blood Count 7.17 K/ul (4.8-10.8)
[2023-11-15 00:41] LABS: Basophils # (auto) 0.02 K/uL (0.00-0.20); Immature Granulocytes # (auto) 0.06 K/uL (0.01-0.20)
[2023-11-15 00:57] LABS: Albumin Globulin Ratio 1.1 (0.9-2); Albumin Level 3.9 gm/dl (3.4-5.0); Bilirubin,Total 0.5 mg/dl (0.2-1.0); Calcium 8.7 mg/dl (8.6-10.3); Creatinine Clr Calc Pharmacy 61.2 ml/min; Est GFR (African American) 58.2 ml/min; Est GFR (Non-African American) 50.3 ml/min; Globulin 3.4 gm/dl (2.5-4.0); Magnesium 2.1 mg/dl (1.7-2.4); Potassium 3.2 mmol/L (3.5-5.1); Total Protein 7.3 gm/dl (6.0-8.3)
[2023-11-15 01:04] LABS: Troponin I High Sensitivity 4.6 pg/ml (0-14)
[2023-11-15] MEDS ORDERED: POTASSIUM CHLORIDE CRTAB 20 MEQ TABCR PO STA (01:09)
[2023-11-15 01:12] LABS: Prothrombin Time 10.9 Seconds (9.0-12.0)
[2023-11-15 01:13] LABS: Thyroid Stimulating Hormone 5.675 uIu/ml (0.300-4.500)
[2023-11-15 01:31] LABS: Adenovirus PCR Not Detected (NotDetected); Bordetella parapertussis PCR Not Detected (NotDetected); Bordetella pertussis PCR Not Detected (NotDetected); Chlamydia pneumoniae PCR Not Detected (NotDetected); Coronavirus 229E PCR Not Detected (NotDetected); Coronavirus CoV-2 (COVID19)PCR Not Detected (NotDetected); Coronavirus HKU1 PCR Not Detected (NotDetected); Coronavirus NL63 PCR Not Detected (NotDetected); Coronavirus OC43PCR Not Detected (NotDetected); Human Metapneumovirus PCR Not Detected (NotDetected); Influenza A PCR Not Detected (NotDetected); Influenza B PCR Not Detected (NotDetected); Mycoplasma pneumoniae PCR Not Detected (NotDetected); Parainfluenza Virus 1 PCR Not Detected (NotDetected); Parainfluenza Virus 2 PCR Not Detected (NotDetected); Parainfluenza Virus 3 PCR Not Detected (NotDetected); Parainfluenza Virus 4 PCR Not Detected (NotDetected); Rhinovirus/Enterovirus PCR Not Detected (NotDetected)
[2023-11-15 01:49] LABS: T4 Free Thyroxine 0.98 ng/dl (0.61-1.60)
[2023-11-15 02:14] LABS: Respiratory Syncytial VirusPCR DETECTED (NotDetected)
[2023-11-15] MEDS ORDERED: BENZONATATE 100 MG CAPSULE PO ONE (03:08)
[2023-11-15] MEDS ORDERED: FUROSEMIDE 40 MG/4 ML VIAL IV ONE (03:14)
--- OUTSIDE RECORDS SUMMARY | 2023-11-15 04:19 | External Medical Summary | Summary of Care ---
Author Name Unknown Organization [facility] Address [address] [facility] [place] [address] Phone [phone] Care Team Providers Care Chicken Dresser Name Role Phone Sotero Pizano MD Primary Care Provider Reason for Visit * Reason Onset Date Comments [facility]: Maintenance 11/10/2023 Encounter Details Date Type Department Care Team ([facility] st Contact Info) Description 11/10/2023 4:00 PM EST Scheduled Telephone [facility], [facility] [address] [place] [address] [facility], Nurse [facility] [address] [place] [address] Allergies Active Allergy Reactions Criticality Noted Date Comments Amoxicillin 09/18/2023 Azithromycin Rash Low 11/01/2023 Duloxetine Hcl Nausea/vomiting,Rash 01/23/2019 Hydrochlorothiazide W/Triamterene Nausea/vomiting 10/07/2009 Cyclobenzaprine Hcl 12/28/2015 rash Hydrocodone Neuro complications (Please comment) 09/14/2020 aggravates RLS Lisinopril Cough 01/13/2011 Omeprazole Other (Please comment) 02/14/2017 Restless legs Oxycodone-Acetaminophen Neuro complicati ons (Please comment) 09/14/2020 aggravates RLS Ropinirole Hcl Tachycardia Medium 03/28/2019 Sulindac 01/29/2017 Hives Adhesive Tape Other (Please comment) 11/27/2014 Non-allergenic tape causes blistering-PLEA SE use paper tape only Tetanus Toxoid Rash 08/20/2008 Acetaminophen 01/11/2017 Restless legs are worse when taking. documented as of this encounter (statuses as of 11/10/2023) Medications Medication Sig Dispensed Refills Start Date End Date Status CPAP 16 % every night at bedtime. 0 Active Compressor NebulizerIndication s:Chronic bronchitis with wheezing (HCC) Inhale via nebulizer . Use as directed. 1 Each 1 02/24/2022 Active Vitamin D (Ergocalciferol) 1.25 MG (19774 UT) Oral Capsule TAKE ONE CAPSULE BY MOUTH MONTHLY 12 Capsule 0 05/03/2022 Active Proventil HFA 108 (90 Base) MCG/ACT Inhalation Aerosol SolutionIndications :Bronchitis,Upper respiratory tract infection, unspecified type Inhale 2 Puffs by mouth every 4 hours as needed for Congestion, Cough or Wheezing. 18 g 0 02/02/2023 Active Triamcinolone Acetonide 0.5 % External Cream (Aristocort)Indicat ions:Dermatitis,Lip odermatosclerosis of both lower extremities apply topically to affected area of lower extremities where redness and itching and tight skin twice a day 450 g 0 02/26/2023 Active Polyethylene Glycol 3350 17 GM/SCOOP Oral Powder (MiraLax)Indication s:Constipation, unspecified constipation type Take 17 g by mouth daily as needed for Constipation. Dissolve one heaping tablespoon in 8 ounces of water or juice. 238 g 0 04/30/2023 Active Additional Information Patient not taking.Reported on 07/03/2023 Ondansetron HCl 4 MG Oral Tablet (Zofran)Indications :Nausea TAKE 1 TABLET BY MOUTH EVERY 8 HOURS IF NEEDED FOR NAUSEA 30 Tablet 0 05/14/2023 Active Vitamin D3 25 MCG (1000 UT) Oral Tablet Chewable Take 2,000 Units by mouth in the morning. 0 Active Senna 8.6 MG Oral Tablet Take 1 Tablet by mouth in the morning. 0 Active oxygen IN GAS Use 2 L/min(Oxygen) as directed at bedtime. 0 Active Aspirin 81 MG Oral Tablet Delayed Release (RA Aspirin EC)Indications:Cere bral aneurysm, nonruptured Take 1 Tablet by mouth in the morning. 90 Tablet 3 07/29/2023 Active Atorvastatin Calcium 10 MG Oral Tablet (Lipitor) Take 1 Tablet by mouth in the morning. 90 Tablet 3 07/29/2023 Active Losartan Potassium 25 MG Oral Tablet (Cozaar)Indications :HTN, goal below 140/90,Chronic kidney disease, stage 3b (HCC) Take 0.5 Tablets by mouth in the morning. 45 Tablet 3 07/29/2023 Active Magnesium Oxide -Mg Supplement 400 (240 Mg) MG Oral Tablet (Mag-Ox)Indications :HTN, goal below 140/90 Take 1 Tablet by mouth in the morning. In the morning.. 90 Tablet 3 07/29/2023 Active Metoprolol Succinate ER 25 MG Oral Tablet Extended Release 24 Hour (Toprol XL) Take 1 Tablet by mouth in the morning. 90 Tablet 3 07/29/2023 Active Torsemide 10 MG Oral Tablet (Demadex)Indication s:Chronic heart failure with preserved ejection fraction (HCC) take 2 tablets (20 mg) in the morning and 1 tablet (10 mg) in the evening 90 Tablet 3 07/29/2023 Active traZODone HCl 150 MG Oral Tablet (Desyrel) Take 1 Tablet by mouth at bedtime. 90 Tablet 3 07/29/2023 Active Vitamin B-12 1000 MCG Oral Tablet (Cyanocobalamin)Ind ications:B12 deficiency Take 1 Tablet by mouth in the morning. 90 Tablet 3 07/29/2023 Active DIURETIC TITRATION PLAN If no improvement on day 3, contact heart failure managing provider. 1 Each 0 07/30/2023 Active Ipratropium-Albuter ol 0.5-2.5 (3) MG/3ML Inhalation Solution (Duoneb)Indications :Chronic bronchitis with wheezing (HCC) Inhale 3 mL via nebulizer in the morning and 3 mL at noon and 3 mL in the evening and 3 mL before bedtime. 1080 mL 1 08/07/2023 Active Meclizine HCl 12.5 MG Oral Tablet (Antivert)Indicatio ns:Vertigo TAKE 1 TABLET BY MOUTH THREE TIMES DAILY NEEDED for dizziness. 30 Tablet 1 08/13/2023 Active LORazepam 1 MG Oral Tablet (Ativan) Take one pill, one half hour prior to MRI 1 Tablet 0 08/14/2023 Active Additional Information Patient not taking.Reported on 09/18/2023 rOPINIRole HCl 2 MG Oral Tablet (Requip) TAKE 1 TABLET BY MOUTH THREE TIMES DAILY WITH FOOD every morning, at noon, and before bedtime 90 Tablet 0 08/20/2023 Active Additional Information Patient taking differently: 4 mg Oral BID (.AM/PM), TAKE 1 TABLET BY MOUTH THREE TIMES DAILY WITH FOOD every morning, at noon, and before bedtime, Reported on 10/25/2023 Potassium Chloride Skye ER 20 MEQ Oral Tablet Extended Release Take 1 Tablet by mouth in the morning and 1 Tablet before bedtime. 180 Tablet 3 10/25/2023 Active Fluticasone Propionate 50 MCG/ACT Nasal Suspension (Flonase) Administer 2 Sprays into nostril in the morning. 16 g 1 10/25/2023 Active Azithromycin 250 MG Oral Tablet (Zithromax Z-Artur) Take two tablets by mouth on first day, then 1 tablet daily until gone 6 Tablet 0 10/25/2023 Active Additional Information Patient not taking.Reported on 11/07/2023 Docusate Sodium 100 MG Oral Capsule (Colace)Indications :Constipation, unspecified constipation type Take 1 Capsule by mouth in the morning and 1 Capsule before bedtime. 180 Capsule 3 10/25/2023 Active documented as of this encounter (statuses as of 11/10/2023) Active Problems Problem Noted Date Diagnosed Date Iron deficiency anemia due to chronic blood loss 04/06/2023 Last Assessment & Plan: Has received 2 doses of IV venofer in last 2 months Has 3rd dose scheduled 05/07/2023 Iron and t sat at goal Hypertensive heart disease w ith diastolic heart failure and stage 3b chronic kidney disease 03/21/2023 Last Assessment & Plan: Current Status: "Stable" for patient / At or near baseline Degree of Condition Awareness: Demonstrates very good awareness of condition, disease course, and prognosis "RED FLAG" HF Symptoms: o Leg Swelling (Examples: "I can't wear certain socks or shoes", "My pants feel tight") o Abdominal Bloating (Examples: "I can't wear certain pants", "My belly feels hard", "I look ") Current Heart Failure Classifications: o With ordinary activity such as doing housework, yard work or shopping ([employer] CLASS II) Diagnostic Review: Recent Labs Units 04/25/23 1140 04/06/23 0932 12/11/22 1607 11/14/22 0822 BNP (NT-PRO-BNP) - [facility] pg/mL -- -- -- 102 ESTIMATED GLOMERULAR FILTRATION RATE - [facility] mL/min -- 51* < > 49* HGB - [facility] g/dL 11.9* 11.8* -- -- < > = values in this interval not displayed. Medication Regimen: o Beta Dominique Therapy: Metoprolol Succinate (ER) o ERICA Inhibitor/ARB Therapy: No ERICA/ARB/ARNI secondary to: kidney failure o Diuretic therapy: Torsemide Self - Management Plan o Double dose of Torsemide for 3 days Exacerbation Plan o Anticipated IV Lasix dose: 80 mg o BMP DRY weight 255 lbs Continues daily weights Currently euvolemic on exam Labs are reassuring BMI 40.0-44.9, adult 03/16/2023 Panic disorder (episodic paroxysmal anxiety) 04/2023 Hyperlipidemia 12/11/2022 Morbid (severe) obesity due to excess calories 0 11/14/2022 Last Assessment & Plan: BMI 43 255 lbs Chronic kidney disease, stage 3b 04/17/2022 Overview: Per CKD protocol Lipodermatosclerosis of both lower extremities 0 01/28/2021 RLS (restless legs syndrome) 05/15/2019 Nocturnal hypoxemia 05/15/2019 Atherosclerosis of aorta 03/05/2019 Last Assessment & Plan: Noted on previous CT- continues asa daily- + statin - BP controlled Major depressive disorder, single episode, mild 08/30/2018 Last Assessment & Plan: trazodone 150 mg at bedtime Cerebral aneurysm, nonruptured 07/01/2018 Paroxysmal atrial fibrillation 01/29/2017 Last Assessment & Plan: Metoprolol succ 25 mg daily Recently switched from tartrate BID to succinate- Patient having increase palpitations and SOB x 2-4 weeks Has received 2 infusions of venofer in last 2 months- last iron ad ferritin are at goal May be having runs of A- fib - Will order zio patch Severe obstructive sleep apnea-hypopnea syndrome 07/30/2015 Overview: Severe Obstructive Sleep Apnea (AHI 98/hour per Split Study 03/15/2015) Last Assessment & Plan: Compliant with CPAP nightly Lymphedema of both lower extremities 06/10/2015 Nonalcoholic fatty liver disease 03/12/2015 HTN, goal below 140/90 01/12/2015 Hood angioma 02/17/2014 History of basal cell carcinoma 02/17/2014 Fibromyalgia 10/24/2012 Respiratory symptoms 03/27/2011 Overview: ICD-10 update of inactive term Aspirin intolerance 04/12/2010 Generalized osteoarthritis 04/29/2009 Hirsutism 12/14/2003 documented as of this encounter (statuses as of 11/10/2023) Resolved Problems Problem Noted Date Diagnosed Date Resolved Date Anemia due to chronic blood loss 11/16/2020 04/17/2023 Stage 3a chronic kidney disease 09/13/2020 04/20/2022 Overview: Per CKD protocol Body mass index (BMI) of 40. 0 to 44.9 in adult 08/16/2020 01/19/2022 Overview: Per Obesity protocol - Giant cell arteritis 10/03/2019 022 PMR (polymyalgia rheumatica) 10/03/2019 10/21/2021 Kidney disease, chronic, sta ge III (GFR 30-59 ml/min) 08/12/2018 09/16/2020 Overview: Per CKD protocol #1 Acute left ankle pain 09/10/20172017 Body mass index (BMI) of 45. 0 to 49.9 in adult 08/06/2017 08/19/2020 Overview: Per Obesity protocol #1 Other seborrheic keratosis 02/17/2014 0 07/25/2018 Sebaceous hyperplasia of face 02/17/2014 07/25/2018 Milia 02/17/2014 07/25/2018 HTN, goal below 130/80 06/26/201301/12 Heart failure, diastolic, due to HTN 06/26/2013 03/21/2023 Obesities, morbid 03/13/2012 05/10/2017 Obesity, morbid (more than 1 00 lbs over ideal weight or BMI > 40) 02/22/2010 03/13/2012 Overview: ICD-10 update of inactive term Family history of cardiovascular disease 08/19/2007 05/10/2017 ADVANCE DIRECTIVE INFORMATION 06/03/2007 07/25/2018 Overview: No, Advance Directive brochure given to patient at prior appointment. Allergic rhinitis 08/03/2004 05/10/2017 Unspecified viral infection, in conditions classified elsewhere and of unspecified site 08/03/2004 05/10/2017 DYSFUNCT EUSTACHIAN TUBE 08/03/200404/2017 Major depressive disorder 12/14/2003 Overview: More specific dx on PL FAM HX-DIABETES MELLITUS 04/07/200204/2017 Family history of other card iovascular diseases 04/07/2002 08/19/2007 Overview: ICD-10 update of inactive term INTERNAL HEMRRHOID WITH BLEEDING 02/04/2002 05/10/2017 BENIGN SYLVIE SKIN LEG 02/04/2002 05/10/20 17 RECTAL BLEEDING 02/04/2002 05/10/2017 SKIN TAGS 02/04/2002 05/10/2017 documented as of this encounter (statuses as of 11/10/2023) Immunizations Name Administration Dates Next Due COVID-19 mRNA, LNP-s, No Pre serve, 2-Dose Series ([employer]) 02/17/2021,01/27/2021 Pneumococcal Polysaccharide PPV23 (Pneumovax) Seasonal Influenza, PF, 6 M & above, IM , (FluLaval or Fluzone) 07/29/2020 Seasonal Influenza, Quadrivalent Hd (Fluzone Hd) 09/08/2021 TDAP (age 11 and older)(Adacel) 08/11/2008 documented as of this encounter Social History Tobacco Use Types Packs/Day Years Used Date Smoking Tobacco: Former Cigarettes 0.3 25 Q uit: 12/12/2002 Smokeless Tobacco: Never Comments:was smoking 1/2 pac k per day Alcohol Use Standard Drinks/Week Comments Not Currently 0 (1 standard drink = 0.6 oz pur e alcohol) rarely PHQ-2 Answer Date Recorded PHQ Adult Total Score 1 12/07/2022 Hunger Vital Sign Answer Date Recorded Within the past 12 months, y ou worried that your food would run out before you got the money to buy more. Never true 02/08/20 23 Within the past 12 months, t he food you bought just didn't last and you didn't have money to get more. Never true 02/07/2023 Sex and Gender Information Value Date Recorded Sex Assigned at Female 05/24/2022 11:29 AM EDT Gender Identity Female 11/14/2022 7:41 AM EST Sexual Orientation Straight 04/28/2020 9: 49 AM EDT Job Start Date Occupation Industry Not on file Not on file Not on file documented as of this encounter Functional Status Functional Status Response Date of Assess ment Are you deaf or do you have serious difficulty h earing? No 08/16/2018 Are you blind or do you have serious difficulty seeing, even when wearing glasses? No 08/16/2018 Do you have serious difficul ty walking or climbing stairs? (5 years old or older) No 09/29/2020 Do you have difficulty dress ing or bathing? (5 years old or older) No 08/16/2018 Because of a physical, menta l, or emotional condition, do you have difficulty doing errands alone such as visiting a doctor s office or shopping? (15 years old or older) No 08/16/20 18 Cognitive Status Response Date of Assessm ent Because of a physical, menta l, or emotional condition, do you have serious difficulty concentrating, remembering, or making decisions? (5 years old or older) No 08/16/2018 documented as of this encounter Miscellaneous Notes * Telephone Encounter - Augustina Martinez RN - 11/10/2023 4:26 PM EST [facility] x 2 Will continue to monitor wts. * Telephone Encounter - Augustina Martinez RN - 11/10/2023 3:29 PM EST Images from the original note were not included. documented in this encounter Plan of Treatment Upcoming Encounters Date Type Department Care Team (Late st Contact Info) Description 11/23/2023 2:40 PM EST Office Visit [facility] [address] [place] [address] Sotero Pizano MD [address] [place] [address] 11/27/2023 8:30 AM EST Telemedicine Neurosurgery, [place] [address], [place] [phone] Aime Casas MD [address] [place] [address] 11/27/2023 1:30 PM EST Office Visit Neurology [facility] [address] [place] [address] Vernell Kimball PA-C [address] [facility] [address] 12/17/2023 2:00 PM EST Nurse Only Ancillary Department, [place] [address] [phone] [place], Nurse [facility] [address] [place] [address] 12/19/2023 11:00 AM EST Office Visit Cardiology, [facility] [address] [place] [phone] Amaya Singleton PA-C [address] [place] [address] 01/21/2024 12:30 PM EDT Hospital Encounter [facility], Operating Room [facility] [address] [place] [phone] Satish Anthony, DO [address] [place] [phone] 01/21/2024 12:30 PM EDT - 01/21/2024 12:55 PM EDT Surgery OR [facility], Operating Room [facility] [address] [place] [phone] Satish Anthony, DO [address] [place] [phone] INJECTION SPINE LUMBAR CERVICAL OR THORACIC 04/08/2024 3:15 PM EDT Office Visit Hematology/Oncolog y [facility] [address] [place] [address] Mario Kong MD [address] [place] [address] 06/30/2024 1:30 PM EDT Imaging Radiology [address] [facility] [place] [address] 09/18/2024 3:00 PM EST Office Visit Sleep Disorders Ctr [facility] [address] [facility] [place] [phone] Lakshmi Rausch, DO [address] [place] [address] Scheduled Procedures Name Priority Associated Diagnoses Date/Ti me INJECTION SPINE LUMBAR CERVICAL OR THORACIC Cervical radiculitis 01/21/2024 12:30 PM EDT Health Maintenance Due Date Last Done Comments Pneumococcal Vaccine: 65+ Years (2 - PCV) 02/24/2023 02/24/2022 Albumin/Creatinine Ratio 06/28/2023 06/28/2022 COVID-19 Vaccine (3 - 2022- season) 2023 02/17/2021, 01/27/2021 Influenza Vaccine (FLU shot) (#1) 2023 09/08/2021, 07/29/2020 Depression Screening 12/07/2023 12/07/2022 CKD PHOS USE SMARTSET 47715 03/16/202403/05, 03/29/2022, 05/13/2021, Additional history exists GFR 03/20/2024 09/20/2023, 06/05, 04/06/2023, Additional history exists CKD HGB USE SMARTSET 48186 04/25/202404/25, 04/25/2023, 04/06/2023, Additional history exists Mammogram 06/28/2024 06/28/2023, 05/05, 06/09/2016, Additional history exists Diabetes Screening 09/20/2026 09/20/2023, 0 06/21/2023, 04/06/2023, Additional history exists COLONOSCOPY-EVERY 5 YRS AGES 18-100 08/11/2027 08/11/2022, 06/02/2020, 09/05/2016, Additional history exists DXA Scan 06/15/2028 06/15/2021 GARDASIL-HPV IMMUNIZATION SERIES Aged Out No longer eligible based on patient's age to complete this topic Hepatitis B Aged Out No longer eligi ble based on patient's age to complete this topic MENINGOCOCCAL (MENACTRA/MENVEO) Aged Out No longer eligible based on patient's age to complete this topic Zoster Vaccines Discontinued documented as of this encounter Medical Devices Implanted Type Area [employer] Device Identifier Shelf Expiration Date Model / Serial / Lot Terumo Microvention Hydrosoft 3d Implanted:Qty: 1 on 08/16/2018 by Aime Casas MD at OR [facility] N/A: Head [employer] : INTER[employer] 07/05/2023 [id number] / [id number] / [id number] Hd Offset Hum [id number] - [id number] Implanted:Qty: 1 on 09/28/2020 by Teresa Rehman DO at OR [facility] Left: Shoulder [employer]ICAL 06/17/2026 [id number] / / [id number] documented as of this encounter Advance Directives Latest Code Status on File Code Status Date Activated Date Inactivated Comments Full Code 09/28/2020 10:40 AM 09/29/2020 7:12 PM Th is order reflects the patients wishes and were consensually agreed upon. Code Status History Code Status Date Activated Date Inactivated Comments Full Code 08/16/2018 2:33 PM 08/18/2018 4:17 PM Thi s order reflects the patients wishes and were consensually agreed upon. Question Answer Comments Discussion of Advance Directives occurred with: Not Discussed Full Code 07/15/2018 7:16 AM 07/15/2018 4:32 PM This order reflects the patients wishes and were consensually agreed upon. Care Teams Chicken Dresser Relationship Specialty Start Date End Date March, Sotero Sutton MD [address] [facility] [place] [address] PCP - General Family Medicine 12/07/22 documented as of this encounter
--- OUTSIDE RECORDS SUMMARY | 2023-11-15 04:19 | External Medical Summary | Summary of Care ---
Author Name Unknown Organization [facility] Address [address] [place] [address] Phone [phone] Care Team Providers Care Brick Extruder Operator Name Role Phone Sotero Pizano MD Primary Care Provider [phone] Reason for Visit * Reason Comments Neck Pain Encounter Details Date Type Department Care Team ([facility] st Contact Info) Description 11/07/2023 11:30 AM EST Office Visit Interventional Pain Center, [facility] [address] [place] [address] Eunice Harmon PA-C [address] [place] [address] Cervical radicular pain* Allergies Active Allergy Reactions Criticality Noted Date [...] as of this encounter (statuses as of 11/07/2023) Medications Medication Sig Dispensed Refills Start Date End Date Status CPAP 16 % every night at bedtime. 0 Active Compressor NebulizerIndicati ons:Chronic bronchitis with wheezing (HCC) Inhale via nebulizer . Use as directed. 1 Each 1 02/24/2022 Active Vitamin D (Ergocalciferol) 1.25 MG (73983 UT) Oral Capsule TAKE ONE CAPSULE BY MOUTH MONTHLY 12 Capsule 0 05/03/2022 Active Proventil HFA 108 (90 Base) MCG/ACT Inhalation Aerosol SolutionIndicatio ns:Bronchitis,Upp er respiratory tract infection, unspecified type Inhale 2 Puffs by mouth every 4 hours as needed for Congestion, Cough or Wheezing. 18 g 0 02/02/2023 Active Triamcinolone Acetonide 0.5 % External Cream (Aristocort)Indic ations:Dermatitis ,Lipodermatoscler osis of both lower extremities apply topically to affected area of lower extremities where redness and itching and tight skin twice a day 450 g 0 02/26/2023 Active Polyethylene Glycol 3350 17 GM/SCOOP Oral Powder (MiraLax)Indicati ons:Constipation, unspecified constipation type Take 17 g by mouth daily as needed for Constipation. Dissolve one heaping tablespoon in 8 ounces of water or juice. 238 g 0 04/30/2023 Active Additional Information Patient not taking.Reported on 07/03/2023 Ondansetron HCl 4 MG Oral Tablet (Zofran)Indicatio ns:Nausea TAKE 1 TABLET BY MOUTH EVERY 8 [...] MG Oral Tablet Delayed Release (RA Aspirin EC)Indications:Ce rebral aneurysm, nonruptured Take 1 Tablet by mouth in the morning. 90 Tablet 3 07/29/2023 Active Atorvastatin Calcium 10 MG Oral Tablet (Lipitor) Take 1 Tablet by mouth in the morning. 90 Tablet 3 07/29/2023 Active Losartan Potassium 25 MG Oral Tablet (Cozaar)Indicatio ns:HTN, goal below 140/90,Chronic kidney disease, stage 3b (HCC) Take 0.5 Tablets by mouth in the morning. 45 Tablet 3 07/29/2023 Active Magnesium Oxide -Mg Supplement 400 (240 Mg) MG Oral Tablet (Mag-Ox)Indicatio ns:HTN, goal below 140/90 Take 1 Tablet by mouth in the morning. In the morning.. 90 Tablet 3 07/29/2023 Active Metoprolol Succinate ER 25 MG Oral Tablet Extended Release 24 Hour (Toprol XL) Take 1 Tablet by mouth in the morning. 90 Tablet 3 07/29/2023 Active Torsemide 10 MG Oral Tablet (Demadex)Indicati ons:Chronic heart failure with preserved ejection fraction (HCC) take 2 tablets (20 mg) in the morning and 1 tablet (10 mg) in the evening 90 Tablet 3 07/29/2023 Active traZODone HCl 150 MG Oral Tablet (Desyrel) Take 1 Tablet by mouth at bedtime. 90 Tablet 3 07/29/2023 Active Vitamin B-12 1000 MCG Oral Tablet (Cyanocobalamin)I ndications:B12 deficiency Take 1 Tablet by mouth in the morning. 90 Tablet 3 07/29/2023 Active DIURETIC TITRATION PLAN If no improvement on day 3, contact heart failure managing provider. 1 Each 0 07/30/2023 Active Ipratropium-Albut aleksandr 0.5-2.5 (3) MG/3ML Inhalation Solution (Duoneb)Indicatio ns:Chronic bronchitis with wheezing (HCC) Inhale 3 mL via nebulizer in the morning and 3 mL at noon and 3 mL in the evening and 3 mL before bedtime. 1080 mL 1 08/07/2023 Active Meclizine HCl 12.5 MG Oral Tablet (Antivert)Indicat ions:Vertigo TAKE 1 TABLET BY MOUTH THREE TIMES [...] 11/07/2023 Docusate Sodium 100 MG Oral Capsule (Colace)Indicatio ns:Constipation, unspecified constipation type Take 1 Capsule by mouth in the morning and 1 Capsule before bedtime. 180 Capsule 3 10/25/2023 Active Pregabalin 25 MG Oral Capsule (Lyrica) Take 2 capsule in the am, and 2 capsules in pm. 120 Capsule 3 07/17/2023 4 Discontinue d(Patient preference/ discontinua tion) documented as of this encounter (statuses as of 11/07/2023) Active Problems Problem Noted Date Diagnosed Date [...] as of this encounter (statuses as of 11/07/2023) Resolved Problems Problem Noted Date Diagnosed Date [...] as of this encounter (statuses as of 11/07/2023) Immunizations Name Administration Dates Next Due COVID-19 mRNA, LNP-s, No Pre serve, 2-Dose Series (Veggie Grill) 02/17/2021,01/27/2021 Pneumococcal Polysaccharide PPV23 (Pneumovax) Seasonal Influenza, [...] No 08/16/2018 documented as of this encounter Progress Notes * Eunice Harmon PA-C - 11/07/2023 11:14 AM EST Name: Kristen Garcia Date: 11/07/2023 HPI: Kristen Garcia is a 68 year old female known to the Pain Management clinic presents for follow up to review C spine MRI, 11/01/23 - disc osteophyte complexes through out causing mild central stenosis C4/5 thru C6/7, mild to moderate foraminal narrowing, no cord compression or acute fracture. Unf ortunately, feels her symptoms have worsened since last evaluation. Impacting ADL and sleep. Locates pain neck that radiates to B shoulder, UE, extending to hand into ring and pinky, L > R. Weakness B UE, some dexterity changes of L UE. Rates pain 5/10 and is constant in nature. Denies bowel/bladder dysfunction. R hand dominant. Aggravated by C spine or UE movement. Alleviated temporarily by hold UE close to chest. Using medical marijuana for pain relief. No relief with lyrica, gabapentin. EMG UE May 2023 -moderate left ulnar neuropathy, polyneuropathy. +++ extensive allergy list including cymbalta, flexeril, hydrocodone, percocet, tylenol. + aspirin 81 mg Presents with granddaughter. History: Past Medical History: Diagnosis Date Anxiety state, unspecified Brain aneurysm 2017 CHF (congestive heart failure) (HCC) Depressive disorder, not elsewhere classified Generalized osteoarthrosis, unspecified site Hemorrhoids 06/02/202005/24 Internal & external noted colonoscopy Migraine, unspecified, without mention of intractable migraine without mention of status migrainosus Motion sickness Panic disorder without agoraphobia PONV (postoperative nausea and vomiting) Sleep apnea Unspecified essential hypertension Past Surgical History: Procedure Laterality Date ANESTHESIA FOR CAT OR MRI SCAN N/A 11/01/2023 ANESTHESIA FOR NON-INVASIVE IMAGING (MRI OR CT) performed by [facility], In And Out Surgery at OR [facility] BREAST LESION,OTHER,EXCISION 1993 Breast Biopsy needle benign CAROTID (INTERNAL) ARTERY CATHETHER PLACEMENT Bilateral 07/15/2018 CATHETER PLACEMENT INTERNAL CAROTID ARTERY performed by Aime Casas MD at OR [facility] CAROTID (INTERNAL) ARTERY CATHETHER PLACEMENT Bilateral 01/23/2019 CATHETER PLACEMENT INTERNAL CAROTID ARTERY performed by Aime Casas MD at OR [facility] CATHETER OCCLUSION/EMBOLIZATION,GENERAL MAINTENANCE HELPER N/A 08/16/2018 TRANSCATHETER PERMANENT ARTERIAL OCCLUSION CENTRAL NERVOUS SYSTEM performed by Aime Casas MD at [facility] DELIVERY 1983 Delivery Only COLONOSCOPY, DIAGNOSTIC (RECTUM) 09/05/2016 adenomatous polyps, diverticulosis, repeat 5 yrs/[facility] COLONOSCOPY, DIAGNOSTIC (RECTUM) 06/02/2020 fair prep, normal / [facility] COLONOSCOPY, DIAGNOSTIC (RECTUM) N/A 08/11/2022 [facility], colonoscopy prep-fair, hemorrnoids on perianal exam , otherwise normal / no specimens collected / EGD, FLEXIBLE, DIAGNOSTIC 06/02/2020 erosive gastropathy / [facility] EGD, FLEXIBLE, DIAGNOSTIC N/A 08/11/2022 [facility], EGD, normal scope / no specimens collected / EXPLORATION OF ABDOMEN 1973 Exploratory Of Abdomen HEMORRHOIDECTOMY, INTERNAL W/ BANDING Hemorrhoid(S) Ligation ramondelli INFORMATION labor and delivery x 2 INFORMATION 08/16/2018 x2 STENTS Terumo MicroVention LVIS Jr Intraluminal Support Device model #[id number] INFORMATION 08/16/2018 x2 STENTS Terumo MicroVention LVIS Jr Intraluminal Support Device model# 760914-[id number] INFORMATION 08/16/2018 COIL Terumo MicroVention Hydrosoft 3D model# 5886-2740 INFORMATION 08/16/2018 COIL Terumo MicroVention Hydrosoft 3D model# 8079-5450 INJECTION CERVICAL/THORACIC 08/02/2016 INJECTION SPINE LUMBAR CERVICAL OR THORACIC performed by Elijah Nash DO at OR [facility] INTRACRANIAL ARTERIES CATH PLACEMENT N/A 08/16/2018 CATHETER PLACEMENT EACH INTRACRANIAL BRANCH OF THE INTERNAL CAROTID OR VERTEBRAL ARTERIES performedby Aime Casas MD at OR [facility] INTRACRANIAL INTRAVASCULAR STENT,INCL ANGIO N/A 08/16/2018 TRANSCATHETER PLACEMENT OF INTRAVASCULAR STENTS, INTRACRANIAL performed by Aime Casas MD at OR [facility] LIGATION/BIOPSY OF TEMPORAL ARTERY Left 06/05/2018 [facility] RECONSTRUCT/REPLACE SHOULDER JOINT Left 09/28/2020 ARTHROPLASTY TOTAL SHOULDER performed by Teresa Rehman DO at OR 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" SACROILIAC JOINT INJECT W/GUIDANCE 01/08/2017 INJECTION SACROILIAC JOINT performed by Elijah Nash DO at [facility] SACROILIAC JOINT INJECT W/GUIDANCE 02/28/2018 INJECTION SACROILIAC JOINT performed by Elijah Nash DO at [facility] TOTAL HYSTERECTOMY 1984 ANA (Total Abdominal Hysterectomy) Bleeding VERTEBRAL ARTERY CATHETER PLACEMENT Bilateral 07/15/2018 CATHETER PLACEMENT VERTEBRAL ARTERY, performed by Aime Casas MD at [facility] VERTEBRAL ARTERY CATHETER PLACEMENT Bilateral 01/23/2019 CATHETER PLACEMENT VERTEBRAL ARTERY, performed by Aime Casas MD at OR [facility] Current Outpatient Medications Medication Sig Dispense Refill CPAP 16 % every night at bedtime. Compressor Nebulizer Inhale via nebulizer . Use as directed. 1 Each 1 Vitamin D (Ergocalciferol) 1.25 MG (31081 UT) Oral Capsule TAKE ONE CAPSULE BY MOUTH MONTHLY 12 Capsule 0 Proventil HFA 108 (90 Base) MCG/ACT Inhalation Aerosol Solution Inhale 2 Puffs by mouth every 4 hours as needed for Congestion, Cough or Wheezing. 18 g 0 Triamcinolone Acetonide 0.5 % External Cream (Aristocort) apply topically to affected area of lowerextremities where redness and itching and tight skin twice a day 450 g 0 Polyethylene Glycol 3350 17 GM/SCOOP Oral Powder (MiraLax) Take 17 g by mouth daily as needed for Constipation. Dissolve one heaping tablespoon in 8 ounces of water or juice. (Patient not taking: Reported on 07/03/2023) 238 g 0 Ondansetron HCl 4 MG Oral Tablet (Zofran) TAKE 1 TABLET BY MOUTH EVERY 8 HOURS IF NEEDED FOR UKITNL28 Tablet 0 Vitamin D3 25 MCG (1000 UT) Oral Tablet Chewable Take 2,000 Units by mouth in the morning. Senna 8.6 MG Oral Tablet Take 1 Tablet by mouth in the morning. Pregabalin 25 MG Oral Capsule (Lyrica) Take 2 capsule in the am, and 2 capsules in pm. 120 Capsule 3 oxygen IN GAS Use 2 L/min(Oxygen) as directed at bedtime. Aspirin 81 MG Oral Tablet Delayed Release (RA Aspirin EC) Take 1 Tablet by mouth in the morning. 90Tablet 3 Atorvastatin Calcium 10 MG Oral Tablet (Lipitor) Take 1 Tablet by mouth in the morning. 90 Tablet 3 Losartan Potassium 25 MG Oral Tablet (Cozaar) Take 0.5 Tablets by mouth in the morning. 45 Tablet 3 Magnesium Oxide -Mg Supplement 400 (240 Mg) MG Oral Tablet (Mag-Ox) Take 1 Tablet by mouth in the morning. In the morning.. 90 Tablet 3 Metoprolol Succinate ER 25 MG Oral Tablet Extended Release 24 Hour (Toprol XL) Take 1 Tablet by mouth in the morning. 90 Tablet 3 Torsemide 10 MG Oral Tablet (Demadex) take 2 tablets (20 mg) in the morning and 1 tablet (10 mg) inthe evening 90 Tablet 3 traZODone HCl 150 MG Oral Tablet (Desyrel) Take 1 Tablet by mouth at bedtime. 90 Tablet 3 Vitamin B-12 1000 MCG Oral Tablet (Cyanocobalamin) Take 1 Tablet by mouth in the morning. 90 Tablet3 DIURETIC TITRATION PLAN If no improvement on day 3, contact heart failure managing provider. 1 Each0 Ipratropium-Albuterol 0.5-2.5 (3) MG/3ML Inhalation Solution (Duoneb) Inhale 3 mL via nebulizer in the morning and 3 mL at noon and 3 mL in the evening and 3 mL before bedtime. 1080 mL 1 Meclizine HCl 12.5 MG Oral Tablet (Antivert) TAKE 1 TABLET BY MOUTH THREE TIMES DAILY NEEDED fordizziness. 30 Tablet 1 LORazepam 1 MG Oral Tablet (Ativan) Take one pill, one half hour prior to MRI (Patient not taking: Reported on 09/18/2023) 1 Tablet 0 rOPINIRole HCl 2 MG Oral Tablet (Requip) TAKE 1 TABLET BY MOUTH THREE TIMES DAILY WITH FOOD every morning, at noon, and before bedtime (Patient taking differently: Take 2 Tablets by mouth in the morning and 2 Tablets before bedtime. TAKE 1 TABLET BY MOUTH THREE TIMES DAILY WITH FOOD every morning, at noon, and before bedtime.) 90 Tablet 0 Potassium Chloride Skye ER 20 MEQ Oral Tablet Extended Release Take 1 Tablet by mouth in the morning and 1 Tablet before bedtime. 180 Tablet 3 Fluticasone Propionate 50 MCG/ACT Nasal Suspension (Flonase) Administer 2 Sprays into nostril in the morning. 16 g 1 Azithromycin 250 MG Oral Tablet (Zithromax Z-Artur) Take two tablets by mouth on first day, then 1 tablet daily until gone 6 Tablet 0 Docusate Sodium 100 MG Oral Capsule (Colace) Take 1 Capsule by mouth in the morning and 1 Capsule before bedtime. 180 Capsule 3 No current facility-administered medications for this visit. Review of patient's allergies indicates: Allergen Reactions Requip [Ropinirole Hcl] Tachycardia Amoxicillin Cymbalta [Duloxetine Hcl] Nausea/vomiting and Rash Dyazide [Hydrochlorothiazide W/Triamterene] Nausea/vomiting Flexeril [Cyclobenzaprine Hcl] rash Hydrocodone Neuro complications (Please comment) aggravates RLS Lisinopril Cough Omeprazole Other (Please comment) Restless legs Percocet [Oxycodone-Acetaminophen] Neuro complications (Please comment) aggravates RLS Sulindac Hives Tape [Adhesive Tape] Other (Please comment) Non-allergenic tape causes blistering-PLEASE use paper tape only Tetanus Toxoid Rash Tylenol [Acetaminophen] Restless legs are worse when taking. Azithromycin Rash ROS: CONSTITUTIONAL: Denies anorexia, weight loss, fever, night sweats. RESPIRATORY: Denies shortness of breath, wheezing, productive cough. CARDIOVASCULAR: Denies chest pains, irregular heartbeat. HEME: Denies easy bruising and anticoagulation use. ROS EXAM: Remainder of ROS negative as discussed above in the HPI. PHYSICAL EXAM: There were no vitals taken for this visit. GENERAL: WD/WN female who is awake and alert. Does not appear to be in acute distress. MENTAL STATUS: Oriented x 3. Pleasant and cooperative with normal affect. CERVICAL SPINE: Supple without gross abnormality. Skin is intact. Midline and B paraspinal musculature nontender. Full active range of motion with flexion, extension, lateral bending and rotation bilaterally. Greater Occipital Nerve Palpation: negative bilaterally. Cervical Facet Loading: positive bilaterally, L > R. Spurling's Test: positive bilaterally. STRENGTH: 5/5 in all major motor groups upper and lower extremities bilaterally. SENSATION: Not formally tested. No gross sensory deficits upper and lower extremities bilaterally. GAIT/COORDINATION: Gait is intact. Ambulates without assistance. IMAGING: MRI CERVICAL SPINE WO CONTRAST - 11/01/2023 Straightening of the cervical lordosis. Alignment is otherwise anatomic. The vertebral body heightsare maintained without compression fractures or destructive bony changes. No suspicious marrow signal. Degenerative multilevel disc desiccation. Fatty degenerative endplate changes and mild loss of disc height at C6-C7. Craniocervical junction is normal. No abnormal epidural signal or intradural mass. Prevertebral and dorsal paraspinous soft tissues are unremarkable. Disc levels: C2-C3: No disc herniation, spinal canal stenosis, or neural foraminal narrowing. C3-C4: Disc/osteophyte complex minimally indents the ventral thecal sac without significant canal stenosis. Moderate left and mild right neural foraminal narrowing. C4-C5: Disc/osteophyte complex indents the ventral thecal sac causing mild canal stenosis without spinal cord impingement. Moderate left and mild right neural foraminal narrowing. C5-C6: Disc/osteophyte complex indents the ventral thecal sac causing mild canal stenosis without spinal cord impingement. Mild right neural foraminal narrowing. C6-C7: Disc/osteophyte complex mildly indents the ventral thecal sac without spinal cord impingement. Mild left neural foraminal narrowing. C7-T1: No disc herniation, spinal canal stenosis, or neural foraminal narrowing. IMPRESSION 1. Multilevel degenerative changes resulting in mild spinal canal stenosis and varying degrees neural foraminal narrowing, as detailed above. 2. No spinal cord impingement. ASSESSMENT: Cervical radicular pain L ulnar neuropathy RECOMMENDATION: Reviewed C spine MRI, 11/01/23 - disc osteophyte complexes through out causing mild central stenosis C4/5 thru C6/7, mild to moderate foraminal narrowing, no cord compression or acute fracture. Discussed LILA using fluoroscopy. Risks including, but not limited to, bleeding, infection, worsening pain, failure to alleviate pain, nerve injury and possible steroid side effects were reviewed. Pre-procedure instructions reviewed, reiterated need for bicycle taxi driver. Will message neurosurgery regarding possiblefive day hold baby aspirin prior to JEAN CARLOS - significant hx atrial fibrillation, cerebral aneurysm. Anticipate scheduling left interlaminar LILA C7/T1. I spent a total of 20-29 minutes (exact time 25 mins) on the date of service in preparation, delivery, and documentation of the care provided to Kristen Garcia excluding any time spent in the performance of separately billed services. Eunice Harmon PA-C 11/07/2023 documented in this encounter Nursing Notes * Belkis Cardenas LPN - 11/07/2023 11:15 AM EST [facility] documented in this encounter Plan of Treatment Upcoming Encounters Date Type Department Care Team (Late st Contact Info) Description 11/23/2023 2:40 PM EST Office Visit [facility] [place] [address], [place] [phone] MarchSotero MD [address] [place] [id number] 11/27/2023 1:30 PM EST Office Visit Neurology [facility] [address] [facility] [address] Vernell Kimball PA-C [address] [facility] [place] [address] 12/10/2023 3:30 PM EST Nurse Only Ancillary Department, [place] [address] [address] [place], Nurse [facility] [address] [facility] [place] [address] 12/19/2023 11:00 AM EST Office Visit Cardiology, [facility] [address] [place] [phone] Amaya Singleton PA-C [address] [place] [address] 01/21/2024 12:30 PM EDT Hospital Encounter [facility], Operating Room [facility] [address] [place] [phone] Satish Anthony DO [address] [place] [phone] 01/21/2024 12:30 PM EDT - 01/21/2024 12:55 PM EDT Surgery [facility], Operating [facility] [address] [place] [phone] Satish Anthony, DO [address] [place] [phone] INJECTION SPINE LUMBAR CERVICAL OR THORACIC 04/08/2024 3:15 PM EDT Office Visit Hematology/Oncolog y [facility] [address] [place] [address] Mario Kong MD [address] [place] [address] 06/30/2024 1:30 PM EDT Imaging Radiology [address] [facility] [place] [address] 09/18/2024 3:00 PM EST Office Visit [facility] [address] [facility] [place] [phone] Lakshmi Rausch, DO [address] [place] [address] Scheduled Orders Name Type Priority Associated Diagnoses Orde r Schedule INJECT DX/THER SUBSTANCE INTERLAMINAR CERVICAL/THORACIC W IMAGE GUIDE Procedures Routine Cervical radicular pain Expected: 11/21/2023, Expires: 12/08/2024 Scheduled Procedures Name Priority Associated Diagnoses Date/Ti [...] Screening 12/07/2023 12/07/2022 CKD PHOS USE SMARTSET 51447 03/16/202403/05, 03/29/2022, 05/13/2021, Additional history exists GFR 03/20/2024 09/20/2023, 06/05, 04/06/2023, Additional history exists CKD HGB USE SMARTSET 98651 04/25/202404/25, 04/25/2023, 04/06/2023, Additional history exists Mammogram [...] this encounter Medical Devices Implanted Type Area Passementerie Worker Device Identifier Shelf Expiration Date Model / Serial / Lot Terumo Microvention Hydrosoft 3d Implanted:Qty: 1 on 08/16/2018 by Aime Casas MD at OR [facility] N/A: Head [employer] : INTERVENTIONA 07/05/2023 [id number] / [id number] / [id number] Hd Offset Hum [id number] - [id number] Implanted:Qty: 1 on 09/28/2020 by Teresa Rehman DO at OR [facility] Left: Shoulder [employer]O SURGICAL 06/17/2026 [id number] documented as of this encounter Visit Diagnoses Diagnosis Cervical radicular pain- Primary Brachial neuritis or radiculitis nos Cervical radiculitis Brachial neuritis or radiculitis nos documented in this encounter Advance Directives Latest Code Status [...] and were consensually agreed upon. Care Teams Brick Extruder Operator Relationship Specialty Start Date End Date March, Sotero Sutton MD [address] [facility] [place] [id number] PCP - General Family Medicine 12/07/22 documented as of this encounter
--- OUTSIDE RECORDS SUMMARY | 2023-11-15 04:20 | External Medical Summary | Summary of Care ---
Author Name Unknown Organization [facility] Address [address] [facility] [place] [address] Phone [phone] Care Team Providers Care Social Worker Delinquency Prevention Name Role Phone Sotero Pizano MD Primary Care Provider [phone] Reason for Visit * Reason Onset Date Comments [facility]: Maintenance 11/07/2023 Encounter Details Date Type Department Care Team ([facility] st Contact Info) Description 11/07/2023 10:15 AM EST Scheduled Telephone [facility], [facility] [address] [facility] [place] [address] Coordinator, [facility] [address] [employer] [place] [address] Allergies Active Allergy Reactions Criticality Noted Date [...] 02/24/2022 Active Vitamin D (Ergocalciferol) 1.25 MG (92847 UT) Oral Capsule TAKE ONE CAPSULE BY [...] by mouth in the morning. 0 Active Pregabalin 25 MG Oral Capsule (Lyrica) Take 2 capsule in the am, and 2 capsules in pm. 120 Capsule 3 07/17/2023 Active oxygen IN GAS Use 2 L/min(Oxygen) [...] until gone 6 Tablet 0 10/25/2023 Active Docusate Sodium 100 MG Oral Capsule (Colace)Indications [...] mRNA, LNP-s, No Pre serve, 2-Dose Series ([employer]) 02/17/2021,01/27/2021 Pneumococcal Polysaccharide PPV23 (Pneumovax) Seasonal Influenza, [...] encounter Miscellaneous Notes * Telephone Encounter - Nori Downing RN - 11/07/2023 10:57 AM EST Images from the original note were not included. [facility] Telephonic Nurse Follow-Up Call [facility] Subprogram: Focused Care Management (3-9 months) Follow Up Call Type: Routine follow up call / Status Check Acute issue requiring follow-up call: Heart Failure Exacerbation Objective: 11/01/2023 10:15 AM 11/01/2023 10:10 AM 11/01/2023 10:05 AM 11/01/2023 10:02 AM 11/01/2023 7:39 AM VITALS ACROSS ENCOUNTERS BP 117/54 140/107 141/81 125/55 125/73 Pulse 90 77 80 84 72 Lab Results Component Value Date PROTEIN - [facility] 6.7 09/20/2023 No results found for: "WBC AUTO - [facility]", "HGB - [facility]", "PLATELET AUTO - [facility]" Lab Results Component Value Date SODIUM - [facility] 143 09/20/2023 POTASSIUM - [facility] 3.3 (L) 09/20/2023 CO2 - [facility] 35 (H) 09/20/2023 CREATININE - [facility] 1.4 (H) 09/20/2023 ESTIMATED GLOMERULAR FILTRATION RATE - [facility] 42 (L) 09/20/2023 ALBUMIN - [facility] 4.1 09/20/2023 AST - [facility] 16 09/20/2023 ALT - [facility] 15 09/20/2023 ALKALINE PHOSPHATASE - [facility] 117 09/20/2023 No results found for: "PRO BNP", "LEFT VENTRICULAR EJECTION FRACTION" Remote Patient Monitoring: [facility] Scale: Oxygen Needs: NO CHANGE from baseline supplemental oxygen needs DME Needs: NO DME needs identified Medications: Current DTP: Other: torsemide - increase to torsemide 40mg in am and 20mg in pm x 3 days Subjective: Condition Status: Improvement in symptoms but not at baseline Current Concerns: Spoke with Kristen, reports her weight was done twice this morning because she felt it was not correct and she did not feel she was up 4 more lbs so she weighed again at 251.7 lbs. Feels better than yesterday, legs have decreased in edema, no pain to BLE's, SOB has improved as she is only slightly SOB, denies fever/chill, no cough. Today was day #3 (final day) of DTP. Currently at pain management appt. Encouraged to call [facility] with any change in condition Disposition: Issue resolved. All appropriate follow up scheduled. Future Visits Scheduled: Future Appointments-next 60 days Date/Time Provider Specialty Dept Phone 11/07/2023 11:30 AM (Arrive by 11:15 AM) Eunice Harmon PA-C Pain Medicine [phone] 11/23/2023 2:40 PM (Arrive by 2:25 PM) Sotero Pizano MD Family Medicine [phone] 11/27/2023 1:30 PM (Arrive by 1:15 PM) Vernell Kimball PA-C Neurology [phone] 12/10/2023 3:30 PM Nurse [facility] Ancillary [phone] 12/19/2023 11:00 AM (Arrive by 10:45 AM) Amaya Singleton PA-C Cardiology [phone] 04/08/2024 3:15 PM (Arrive by 3:00 PM) Mario Kong MD Hematology Oncology [phone] 06/30/2024 1:30 PM (Arrive by 1:15 PM) [address] Radiology [phone] 09/18/2024 3:00 PM (Arrive by 2:45 PM) Lakshmi Rausch, Sleep Disorders [phone] Nori Downing, RN documented in this encounter Plan of Treatment Upcoming Encounters Date Type Department Care Team (Late st Contact Info) Description 11/07/2023 11:30 AM EST Office Visit Interventional Pain Center, [facility] [address] [place] [address] Eunice Harmon PA-C [address] [place] [address] Name: Kristen Garcia 11/23/2023 2:40 PM EST [facility] [address] [facility] [phone] Sotero Pizano MD [address] [place] [facility] [place] [address] 11/27/2023 1:30 PM EST Office Visit Neurology [facility] [address] [facility] [place] [address] Vernell Kimball PA-C [facility] [place] [address] 12/10/2023 3:30 PM EST Nurse Only Ancillary Department, [place] [address] [place] [address] [place], Nurse [facility] [address] [place] [address] 12/19/2023 11:00 AM EST Office Visit Cardiology, [facility] [address] [place] [address] Amaya Singleton PA-C [address] [facility] [place] [address] 04/08/2024 3:15 PM EDT Office Visit Hematology/Oncology [facility] [address] [facility] [place] [address] Mario Kong MD [address] [facility] [place] [address] 06/30/2024 1:30 PM EDT Imaging Radiology [facility] [address] [facility] [address] [place] [address] 09/18/2024 3:00 PM EST Office Visit Sleep Disorders Ctr [facility] [address] [place] [phone] Lakshmi Rausch DO [address] [place] [address] Health Maintenance Due Date Last Done Comments Pneumococcal Vaccine: 65+ Years (2 - PCV) 02/24/2023 02/24/2022 Albumin/Creatinine Ratio 06/28/2023 06/28/2022 COVID-19 Vaccine ( season) 2023 02/17/2021, 01/27/2021 Influenza Vaccine (FLU shot) (#1) 2023 09/08/2021, 07/29/2020 Depression Screening 12/07/2023 12/07/2022 CKD PHOS USE SMARTSET 37657 03/16/202403/05, 03/29/2022, 05/13/2021, Additional history exists GFR 03/20/2024 09/20/2023, 06/05, 04/06/2023, Additional history exists CKD HGB USE SMARTSET 16417 04/25/202404/25, 04/25/2023, 04/06/2023, Additional history exists Mammogram [...] this encounter Medical Devices Implanted Type Area Hot Roller Device Identifier Shelf Expiration Date Model / Serial / Lot [employer] Microvention Hydrosoft 3d Implanted:Qty: 1 on 08/16/2018 by Aime Casas MD at OR [facility] [place] N/A: Head [employer] : INTER[employer]IONA 07/05/2023 [id number] / [id number] / [id number] Hd Offset Hum 46x16 - [id number] Implanted:Qty: 1 on 09/28/2020 by Teresa Rehman DO at OR [facility] Left: Shoulder [employer]GICAL 06/17/2026 [id number] / / [id number] documented as of this encounter Advance Directives [...] and were consensually agreed upon. Care Teams Social Worker Delinquency Prevention Relationship Specialty Start Date End Date March, Sotero Sutton MD [address] [place] [address] PCP - General Family Medicine 12/07/22 documented as of this encounter
--- OUTSIDE RECORDS SUMMARY | 2023-11-15 04:20 | External Medical Summary | Summary of Care ---
Author Name Unknown Organization [facility] Address [address] [place] [address] Phone [phone] Care Team Providers Care Director Name Role Phone Sotero Pizano MD Primary Care Provider [phone] Reason for Referral * Precert (Within 10 days (routine)) - Pending Review Specialty Diagnoses / Procedures Referred By Bharat dobbs Referred To Contact Radiology Diagnoses Cervical radicular pain Procedures MRI C SPINE WO CONTRAST Elijah Nash DO [address] [place] [address] Referral ID Status Reason Start Date Expiration Date V isits Requested Visits Authorized [id number] Pending Review 08/21/[phone] Reason for Visit * Auth/Cert Specialty Diagnoses / Procedures Referred By Bharat dobbs Referred To Contact Diagnoses Cervical radicular pain Cerebral aneurysm, nonruptured Cervical radicular pain [M54.12] Cerebral aneurysm, nonruptured [I67.1] Procedures ANESTHESIA FOR CAT OR MRI SCAN ANESTHESIA FOR NON-INVASIVE IMAGING (MRI OR CT) Referral ID Status Reason Start Date Expiration Date Visits Re quested Visits Authorized [id number] [phone] Encounter Details Date Type Department Care Team (Latest Contact Info) Description 11/01/2023 6:46 AM EST - 11/01/2023 10:36 AM EST Hospital Encounter [facility], OPERATING ROOM [facility] [address] [place], [place] [id number] [facility] In [facility] [address] [place] [address] Discharge Disposition: Home - Self Care Allergies Active Allergy Reactions Criticality Noted Date [...] as of this encounter (statuses as of 11/01/2023) Medications Medication Sig Dispensed Refills Start Date End Date Status CPAP 16 % every night at bedtime. 0 Active Compressor NebulizerIndication s:Chronic bronchitis with wheezing (HCC) Inhale via nebulizer . Use as directed. 1 Each 1 02/24/2022 Active Vitamin D (Ergocalciferol) 1.25 MG (45564 UT) Oral Capsule TAKE ONE CAPSULE BY [...] by mouth in the morning. 90 Tablet 07/29/2023 Active Torsemide 10 MG Oral Tablet (Demadex)Indication s:Chronic heart failure with preserved ejection fraction (HCC) take 2 tablets (20 mg) in the morning and 1 tablet (10 mg) in the evening 90 Tablet 07/29/2023 Active traZODone HCl 150 MG Oral [...] the morning. 16 g 1 10/25/2023 Active Docusate Sodium 100 MG Oral Capsule (Colace)Indications :Constipation, unspecified constipation type Take 1 Capsule by mouth in the morning and 1 Capsule before bedtime. 180 Capsule 3 10/25/2023 Active documented as of this encounter (statuses as of 11/01/2023) Active Problems Problem Noted Date Diagnosed Date [...] as of this encounter (statuses as of 11/01/2023) Resolved Problems Problem Noted Date Diagnosed Date [...] as of this encounter (statuses as of 11/01/2023) Immunizations Name Administration Dates Next Due COVID-19 mRNA, LNP-s, No Pre serve, 2-Dose Series ([employer]) 02/17/2021,01/27/2021 Pneumococcal Polysaccharide PPV23 (Pneumovax) Seasonal Influenza, [...] on file documented as of this encounter Last Filed Vital Signs Vital Sign Reading Time Taken Comments Blood Pressure 117/54 11/01/2023 10:15 AM EST Pulse 90 11/01/2023 10:15 AM EST Temperature 36 C (96.8 F) 11/01/2023 10:15 AM EST Respiratory Rate 19 11/01/2023 10:15 AM EST Oxygen Saturation 95% 11/01/2023 10:15 AM EST Inhaled Oxygen Concentration - - Weight - - Height - - Body Mass Index - - documented in this encounter Functional Status Functional Status Response [...] No 08/16/2018 documented as of this encounter Nursing Notes * Rosalba Lay, RN - 11/01/2023 7:42 AM EST Dual Licensed Skin Assessment completed by Lyssa Lay RN and Subha Wiley RN. The patient is/has a N/A Skin Breakdown (includes non blanchable erythema): No documented in this encounter Plan of Treatment Upcoming Encounters Date Type Department Care Team (Late st Contact Info) Description 11/07/2023 11:25 AM EST Office Visit [facility] [address] [place] [address] Satish Anthony DO [address] [place] [phone] 11/23/2023 2:40 PM EST Office Visit [facility] [address] [place] [place] [phone] Sotero Pizano MD [address] [place] [address] 11/27/2023 1:30 PM EST Office Visit Neurology [facility] [address] [place] [address] Vernell Kimball PA-C [address] [facility] [place] [address] 12/10/2023 3:30 PM EST Nurse Only Ancillary Department, [place] [address] [facility] [place] [address] [place], Nurse [facility] [address] [place] [address] 12/19/2023 11:00 AM EST Office Visit Cardiology, [facility] [address] [place] [address] Amaya Singleton PA-C [address] [facility] [place] [address] 04/08/2024 3:15 PM EDT Office Visit Hematology/Oncology [facility] [address] [facility] [place] [address] Mario Kong MD [address] [facility] [place] [address] 06/30/2024 1:30 PM EDT Imaging Radiology [facility] [address] [facility] [address] [facility] [place] [address] 09/18/2024 3:00 PM EST Office Visit Sleep Disorders Ctr [facility] [address] [facility] [place] [phone] Lakshmi Rausch DO [address] [facility] [place] [address] Scheduled Procedures Name Priority Associated Diagnoses Date/Ti me ANESTHESIA FOR NON-INVASIVE IMAGING (MRI OR CT) Cervical radicular pain Cerebral aneurysm, nonruptured 11/01/2023 8:40 AM EST Health Maintenance Due Date Last Done Comments Pneumococcal Vaccine: 65+ Years (2 - PCV) 02/24/2023 02/24/2022 Albumin/Creatinine Ratio 06/28/2023 06/28/2022 COVID-19 Vaccine (3 - 2022- season) 2023 02/17/2021, 01/27/2021 Influenza Vaccine (FLU shot) (#1) 2023 09/08/2021, 07/29/2020 Depression Screening 12/07/2023 12/07/2022 CKD PHOS USE SMARTSET 15955 03/16/202403/05, 03/29/2022, 05/13/2021, Additional history exists GFR 03/20/2024 09/20/2023, 06/05, 04/06/2023, Additional history exists CKD HGB USE SMARTSET 68569 04/25/202404/25, 04/25/2023, 04/06/2023, Additional history exists Mammogram [...] this encounter Medical Devices Implanted Type Area Vendor Management Specialist Device Identifier Shelf Expiration Date Model / Serial / Lot [employer] Microvention Hydrosoft 3d Implanted:Qty: 1 on 08/16/2018 by Aime Casas MD at OR [facility] [place] [place] N/A: Head [employer] : [employer] 07/05/2023 [id number] / [id number] / [id number] Hd Offset Hum 46x16 - [id number] Implanted:Qty: 1 on 09/28/2020 by Teresa Rehman, at OR [facility] Left: Shoulder [employer] SURGICAL 06/17/2026 [id number] documented as of this encounter Procedures Procedure Name Priority Date/Time Associated Diagnosis Comments MRI C SPINE WO CONTRAST Routine 11/01/2023 9:58 AM EST Cervical radicular pain documented in this encounter Results * MRI C SPINE WO CONTRAST (11/01/2023 9:58 AM EST) Anatomical Region Laterality Modality Vertebra, Spine Magnetic Resonan ce 11/01/2023 11:1 6 AM EST Impressions 11/01/2023 11:27 AM EST IMPRESSION 1. Multilevel degenerative changes resulting in mild spinal canal stenosis and varying degrees neural foraminal narrowing, as detailed above. 2. No spinal cord impingement. I have personally reviewed this examination and agree with the resident/fellow physician's interpretation. Narrative 11/01/2023 11:27 AM EST EXAM MRI CERVICAL SPINE WO CONTRAST - 11/01/2023 HISTORY Neck pain; Neck pain, no complicating feature; Chronic neck pain duration >= 3 months; Worsening or not improving; Adequate conservative therapy; No known/automatically detected potential contraindications to MRI COMPARISON Cervical spine radiographs 01/24/2022. TECHNIQUE Multiplanar, multisequence magnetic resonance imaging of the cervical spine is performed without contrast. FINDINGS Straightening of the cervical lordosis. Alignment is otherwise anatomic. The vertebral body heights are maintained without compression fractures or destructive bony [...] spinal canal stenosis, or neural foraminal narrowing. Procedure Note Mandeep Steve MD - 11/01/2023 EXAM MRI CERVICAL SPINE WO CONTRAST - 11/01/2023 HISTORY Neck pain; Neck pain, no complicating feature; Chronic neck pain duration>= 3 months; Worsening or not improving; Adequate conservative therapy; Noknown/automatically detected potential contraindications to MRI COMPARISON Cervical spine radiographs 01/24/2022. TECHNIQUE Multiplanar, multisequence magnetic resonance imaging of the cervicalspine is performed without contrast. FINDINGS Straightening of the cervical lordosis. Alignment is otherwise anatomic.The vertebral body heights are maintained without compression fractures ordestructive bony changes. No suspicious marrow signal. Degenerative multilevel disc desiccation. Fatty degenerative endplatechanges and mild loss of disc height at C6-C7. Craniocervical junction is normal. No abnormal epidural signal orintradural mass. Prevertebral and dorsal paraspinous soft tissues are unremarkable. Disc levels: C2-C3: No disc herniation, spinal canal stenosis, or neural foraminalnarrowing. C3-C4: Disc/osteophyte complex minimally indents the ventral thecal sacwithout significant canal stenosis. Moderate left and mild right neuralforaminal narrowing. C4-C5: Disc/osteophyte complex indents the ventral thecal sac causing mildcanal stenosis without spinal cord impingement. Moderate left and mildright neural foraminal narrowing. C5-C6: Disc/osteophyte complex indents the ventral thecal sac causing mildcanal stenosis without spinal cord impingement. Mild right neuralforaminal narrowing. C6-C7: Disc/osteophyte complex mildly indents the ventral thecal sacwithout spinal cord impingement. Mild left neural foraminal narrowing. C7-T1: No disc herniation, spinal canal stenosis, or neural foraminalnarrowing. IMPRESSION IMPRESSION 1. Multilevel degenerative changes resulting in mild spinal canal stenosisand varying degrees neural foraminal narrowing, as detailed above. 2. No spinal cord impingement. I have personally reviewed this examination and agree with the resident/fellow physician's interpretation. Elijah Nash DO RAD MRI-MRA documented in this encounter Visit Diagnoses Diagnosis Cervical radicular pain Brachial neuritis or radiculitis nos documented in this encounter Administered Medications Inactive Administered Medications - up to 3 most recent administrations Medication Order MAR Action Action Date Dose Rate Site isolyte-S pH 7.4 infusion Intravenous, at 100 mL/hr, For Periop use. Plasma-LYTE 148, isolyte-S, and isolyte-S pH 7.4 are considered equivalent - including for MAR barcode scanning., CONTINUOUS, Starting on Radha 11/01/23 at 0815, Until Radha 11/01/23 at 1436, Pre-Op Continue from Pre-Op 11/01/2023 8:44 AM EST 100 mL/hr New Bag 11/01/2023 7:45 AM EST 100 mL/hr documented in this encounter Active and Recently Administered Medications Times are shown in EST. Continuous Medication Order 10/30/2023 10/31/2023 11/01/2023 isolyte-S pH 7.4 infusion Intravenous, at 100 mL/hr, For Periop use. Plasma-LYTE 148, isolyte-S, and isolyte-S pH 7.4 are considered equivalent - including for MAR barcode scanning., CONTINUOUS, Starting on Radha 11/01/23 at 0815, Until Radha 11/01/23 at 1436, Pre-Op 0745 (New Bag - Prov ider: Rosalba Lay RN)0844 (Continue from Pre-Op - Provider: Charisse Chinchilla CRNA)1004 (Anes Intra-Op Fluid - Provider: Charisse Chinchilla CRNA) documented in this encounter Advance Directives Latest [...] and were consensually agreed upon. Care Teams Director Relationship Specialty Start Date End Date March, Sotero Sutton MD [address] [facility] [place] [address] PCP - General Family Medicine 12/07/22 documented as of this encounter
--- OUTSIDE RECORDS SUMMARY | 2023-11-15 04:20 | External Medical Summary | Summary of Care ---
Author Name Unknown Organization [facility] Address [address] [place] [facility] [place] [place] [address] Phone [phone] Care Team Providers Care Director Marketing Name Role Phone Sotero Pizano MD Primary Care Provider [phone] Reason for Visit * Reason Onset Date Comments [facility]: Maintenance 11/04/2023 Encounter Details Date Type Department Care Team ([facility] st Contact Info) Description 11/04/2023 2:00 PM EST Scheduled Telephone [facility], [facility] [address] [place] [address] [facility], Nurse [facility] [address] [place] [address] Allergies Active Allergy Reactions Criticality Noted Date [...] as of this encounter (statuses as of 11/04/2023) Medications Medication Sig Dispensed Refills Start Date End Date Status CPAP 16 % every night at bedtime. 0 Active Compressor NebulizerIndication s:Chronic bronchitis with wheezing (HCC) Inhale via nebulizer . Use as directed. 1 Each 1 02/24/2022 Active Vitamin D (Ergocalciferol) 1.25 MG (90762 UT) Oral Capsule TAKE ONE CAPSULE BY [...] as of this encounter (statuses as of 11/04/2023) Active Problems Problem Noted Date Diagnosed Date [...] as of this encounter (statuses as of 11/04/2023) Resolved Problems Problem Noted Date Diagnosed Date [...] as of this encounter (statuses as of 11/04/2023) Immunizations Name Administration Dates Next Due COVID-19 mRNA, LNP-s, No Pre serve, 2-Dose Series ([employer]) 02/17/2021,01/27/2021 Pneumococcal Polysaccharide PPV23 (Pneumovax) Seasonal Influenza, [...] encounter Miscellaneous Notes * Telephone Encounter - Ladi Joseph RN - 11/04/2023 1:53 PM EST Images from the original note were not included. Spoke with pt d/t [facility] trigger She reports she does feel like she is retaining fluid + increased SOB + increased edema Denies abdominal distention She is going to start DTP today of double torsemide - increase to torsemide 40mg in am and 20mg in pm x 2-[address] on schedule for f/u call on 11/06 documented in this encounter Plan of Treatment Upcoming Encounters Date Type Department Care Team (Late st Contact Info) Description 11/06/2023 2:00 PM EST Scheduled Telephone [facility], [facility] [address] [facility] [place] [address] Coordinator, [facility] [address] [facility] [place] [address] 11/07/2023 11:25 AM EST Office Visit Interventional Pain Center, [facility] [address] [facility] [place] [address] Satish Anthony DO 132 [facility] [place] [phone] 11/23/2023 2:40 PM EST Office Visit Family Practice, [place] [address] [place], [place] [address] [phone] MarchSotero MD [address] [place] [facility] [place] [address] 11/27/2023 1:30 PM EST Office [facility] [address] Vernell Kimball PA-C [address] [place] [address] 12/10/2023 3:30 PM EST Nurse Only Ancillary Department, [place] [address] [facility] [address] [place], Nurse [facility] [address] [facility] [address] 12/19/2023 11:00 AM EST Office Visit Cardiology, [facility] [address] [place] [address] Amaya Singleton PA-C [address] [place] [address] 04/08/2024 3:15 PM EDT Office Visit Hematology/Oncology [facility] [address] [place] [address] Mario Kong MD [address] [place] [address] 06/30/2024 1:30 PM EDT Imaging Radiology [facility] 1st [facility] [address] [place] [address] 09/18/2024 3:00 PM EST Office Visit Sleep Disorders Ctr [facility] [address] [facility] [place] [phone] Lakshmi Rausch, [address] [place] [address] Health Maintenance Due Date Last Done Comments Pneumococcal Vaccine: 65+ Years (2 - PCV) 02/24/2023 02/24/2022 Albumin/Creatinine Ratio 06/28/2023 06/28/2022 COVID-19 Vaccine (3 - season) 2023 02/17/2021, 01/27/2021 Influenza Vaccine (FLU shot) (#1) 2023 09/08/2021, 07/29/2020 Depression Screening 12/07/2023 12/07/2022 CKD PHOS USE SMARTSET 23481 03/16/202403/05, 03/29/2022, 05/13/2021, Additional history exists GFR 03/20/2024 09/20/2023, 06/05, 04/06/2023, Additional history exists CKD HGB USE SMARTSET 61301 04/25/202404/25, 04/25/2023, 04/06/2023, Additional history exists Mammogram [...] this encounter Medical Devices Implanted Type Area Cork Wirer Device Identifier Shelf Expiration Date Model / Serial / Lot Terumo Microvention Hydrosoft 3d Implanted:Qty: 1 on 08/16/2018 by Aime Casas MD [place] [facility] [place]: Head [employer] : INTERVENTIONA 07/05/2023 [id number] / [id number] / [id number] Hd Offset Hum 46x16 - [id number] Implanted:Qty: 1 on 09/28/2020 by Teresa Rehman DO at OR [facility] Left: Shoulder [employer]GICAL 06/17/2026 520-46-31 6 / / [id number] documented as of this encounter Advance Directives [...] were consensually agreed upon. Care Teams Director Marketing Relationship Specialty Start Date End Date March, Sotero Sutton MD [address] [place] [address] PCP - General Family Medicine 12/07/22 documented as of this encounter
--- OUTSIDE RECORDS SUMMARY | 2023-11-15 04:20 | External Medical Summary | Summary of Care ---
Author Name Unknown Organization [facility] Address [address] [place] [address] Phone [phone] Care Team Providers Care Civil Structural Engineer Name Role Phone Sotero Pizano MD Primary Care Provider [phone] Reason for Visit * Precert (Within 10 days (routine)) - Pending Review Specialty Diagnoses / Procedures Referred By Contac t Referred To Contact Radiology Diagnoses Cerebral aneurysm, nonruptured Procedures MRA HEAD W WO CONTRAST Javi Parikh PA-C [address] [place] [address] Referral ID Status Reason Start Date Expiration Date V isits Requested Visits Authorized [id number] Pending Review 08/22/[phone] Encounter Details Date Type Department Care Team (Latest Contact Info) Description 11/01/2023 6:51 AM EST - 11/01/2023 11:59 PM EST Hospital Encounter [facility], [place] [address] [place], [place] [id number] Arrived Discharge Disposition: Home - Self Care Allergies [...] as of this encounter (statuses as of 11/02/2023) Medications Medication Sig Dispensed Refills Start Date End Date Status CPAP 16 % every night at bedtime. 0 Active Compressor NebulizerIndication s:Chronic bronchitis with wheezing (HCC) Inhale via nebulizer . Use as directed. 1 Each 1 02/24/2022 Active Vitamin D (Ergocalciferol) 1.25 MG (16942 UT) Oral Capsule TAKE ONE CAPSULE BY [...] as of this encounter (statuses as of 11/02/2023) Active Problems Problem Noted Date Diagnosed Date [...] as of this encounter (statuses as of 11/02/2023) Resolved Problems Problem Noted Date Diagnosed Date [...] as of this encounter (statuses as of 11/02/2023) Immunizations Name Administration Dates Next Due COVID-19 mRNA, LNP-s, No Pre serve, 2-Dose Series ([employer]) 02/17/2021,01/27/2021 Pneumococcal Polysaccharide PPV23 (Pneumovax) Seasonal Influenza, [...] No 08/16/2018 documented as of this encounter Plan of Treatment Upcoming Encounters Date Type Department Care Team (Late st Contact Info) Description 11/07/2023 11:25 AM EST Office Visit Interventional Pain Center, [facility] [address] [facility] [place] [address] Satish Anthony DO 132 [facility] [place] [phone] 11/23/2023 2:40 PM EST Office Visit Family Practice, [place] [address] [place] [address] MarchSotero MD [address] [place] [address] 11/27/2023 1:30 PM EST Office Visit Neurology [facility] [address] [place] [address] Vernell Kimball PAEdie [facility] [address] 12/10/2023 3:30 PM EST Nurse Only Ancillary Department, [place] [address] [place] [address] [place], Nurse [facility] [address] [place] [address] 12/19/2023 11:00 AM EST Office Visit Cardiology, [facility] [address] [facility] [place] [address] Amaya Singleton, PA-C [address] [facility] [place] [address] 04/08/2024 3:15 PM EDT Office Visit Hematology/Oncology [facility] [address] [place] [address] Mario Kong MD 200 [facility] [place] [address] 06/30/2024 1:30 PM EDT Imaging Radiology [address] 132 [facility] [place] [address] 09/18/2024 3:00 PM EST Office Visit Sleep Disorders Ctr [facility] 132 [facility] [place] [phone] Lakshmi Rausch, DO [address] [facility] [place] [address] Pending Results Name Type Priority Associated Diagnoses Date /Time MRA HEAD W WO CONTRAST Medical Imaging Routine Cerebral aneurysm, nonruptured 11/01/2023 9:59 AM EST Health Maintenance Due Date Last Done Comments Pneumococcal Vaccine: 65+ Years (2 - PCV) 02/24/2023 02/24/2022 Albumin/Creatinine Ratio 06/28/2023 06/28/2022 COVID-19 Vaccine (3 - 2022- season) 2023 02/17/2021, 01/27/2021 Influenza Vaccine (FLU shot) (#1) 2023 09/08/2021, 07/29/2020 Depression Screening 12/07/2023 12/07/2022 CKD PHOS USE SMARTSET 68954 03/16/202403/05, 03/29/2022, 05/13/2021, Additional history exists GFR 03/20/2024 09/20/2023, 06/05, 04/06/2023, Additional history exists CKD HGB USE SMARTSET 33862 04/25/202404/25, 04/25/2023, 04/06/2023, Additional history exists Mammogram [...] this encounter Medical Devices Implanted Type Area Cashier Courtesy Booth Device Identifier Shelf Expiration Date Model / Serial / Lot Terumo Microvention Hydrosoft 3d Implanted:Qty: 1 on 08/16/2018 [place] [facility] [place] Head [employer] : INTERVENTIONA 07/05/2023 [id number] / [id number] / [id number] Hd Offset Hum 46x16 - [id number] Implanted:Qty: 1 on 09/28/2020 by Teresa Rehman DO at OR [facility] Left: Shoulder DJO SURGICAL 06/17/2026 520-46-31 6 / / [id number] documented as of this encounter Visit Diagnoses Diagnosis Cerebral aneurysm, nonruptured documented in this encounter Administered Medications Inactive Administered Medications - up to 3 most recent administrations Medication Order MAR Action Action Date Dose Rate Site gadobutrol (Gadavist) inj 11.3 mL 11.3 mL (rounded from 11.29 mL = 0.1 mL/kg 112.9 kg), Intravenous, ONCE, On Radha 11/01/23 at 1002, For 1 dose, Radiology Medication Routing (Non-IR) Given 11/01/2023 10:02 AM EST 11.3 mL documented in this encounter Advance Directives Latest [...] and were consensually agreed upon. Care Teams Civil Structural Engineer Relationship Specialty Start Date End Date Sotero Pizano MD [address] [place] [address] PCP - General Family Medicine 12/07/22 documented as of this encounter
--- OUTSIDE RECORDS SUMMARY | 2023-11-15 04:20 | External Medical Summary | Summary of Care ---
Author Name Unknown Organization [facility] Address [address] [facility] [place] [address] Phone [phone] Care Team Providers Care Sheet Music Salesperson Name Role Phone Sotero Pizano MD Primary Care Provider [phone] Reason for Visit * Reason Onset Date Comments [facility]: Maintenance 11/06/2023 Encounter Details Date Type Department Care Team ([facility] st Contact Info) Description 11/06/2023 2:00 PM EST Scheduled Telephone [facility], [facility] [address] [facility] [place] [address] Coordinator, [facility] 132 [facility] [place] [address] Allergies Active Allergy Reactions Criticality Noted Date [...] as of this encounter (statuses as of 11/06/2023) Medications Medication Sig Dispensed Refills Start Date End Date Status CPAP 16 % every night at bedtime. 0 Active Compressor NebulizerIndication s:Chronic bronchitis with wheezing (HCC) Inhale via nebulizer . Use as directed. 1 Each 1 02/24/2022 Active Vitamin D (Ergocalciferol) 1.25 MG (02340 UT) Oral Capsule TAKE ONE CAPSULE BY [...] as of this encounter (statuses as of 11/06/2023) Active Problems Problem Noted Date Diagnosed Date [...] as of this encounter (statuses as of 11/06/2023) Resolved Problems Problem Noted Date Diagnosed Date [...] as of this encounter (statuses as of 11/06/2023) Immunizations Name Administration Dates Next Due COVID-19 mRNA, LNP-s, No Pre serve, 2-Dose Series (Sold) 02/17/2021,01/27/2021 Pneumococcal Polysaccharide PPV23 (Pneumovax) Seasonal Influenza, [...] Telephone Encounter - Nori Downing RN - 11/06/2023 10:49 AM EST [facility] Telephonic Nurse Follow-Up Call [facility] Subprogram: Focused Care Management (3-9 months) Follow [...] "LEFT VENTRICULAR EJECTION FRACTION" Remote Patient Monitoring: [facility] Scale: not transmitting this morning Oxygen Needs: NO CHANGE from baseline supplemental oxygen needs DME Needs: NO DME needs identified Medications: double torsemide - increase to torsemide 40mg in am and 20mg in pm X3 days Subjective: Condition Status: Improvement in symptoms but not at baseline Current Concerns: Spoke with Kristen, reports not being home at the moment, said she tried to weigh herself but scale was not working, instructed to check and change batteries on bacl of scale and weighit the lights come on. Patient reports today is day #2 of DTP and is not having any SOB and edema to BLE's is resolving, will add PC for tomorrow Disposition: Follow up call scheduled for tomorrow with KRISHNA Leather Toggler Future Visits Scheduled: Future Appointments-next 60 days Date/Time Provider Specialty Dept Phone 11/06/2023 2:00 PM CoordinatorLinda [facility] [phone] 11/07/2023 11:25 AM (Arrive by 11:10 AM) Satish Anthony DO Pain Medicine [phone] 11/23/2023 2:40 PM (Arrive by 2:25 PM) Sotero Pizano MD Family Medicine [phone] 11/27/2023 1:30 PM (Arrive by 1:15 PM) Vernell Kimball PA-C Neurology [phone] 12/10/2023 3:30 PM Nurse Carly [facility] Ancillary [phone] 12/19/2023 11:00 AM (Arrive by 10:45 AM) Amaya Singleton PA-C Cardiology [phone] 04/08/2024 3:15 PM (Arrive by 3:00 PM) Mario Kong MD Hematology Oncology [phone] 06/30/2024 1:30 PM (Arrive by 1:15 PM) [address] Radiology [phone] 09/18/2024 3:00 PM (Arrive by 2:45 PM) Lakshmi Rausch DO Sleep Disorders [phone] Nori Downing, RN documented in this encounter Plan of Treatment Upcoming Encounters Date Type Department Care Team (Late st Contact Info) Description 11/07/2023 10:15 AM EST Scheduled Telephone [facility] [place], [facility] [address] [place] [address] Coordinator, [facility] [place] [address] 11/07/2023 11:25 AM EST Office Visit Interventional Pain Center, [facility] [address] [place] [address] Satish Anthony DO [address] [place] [phone] 11/23/2023 2:40 PM EST [address] [phone] Sotero Pizano MD [address] [place] [address] 11/27/2023 1:30 PM EST Office Visit Neurology [facility] [address] [facility] [place] [address] Vernell Kimball PAJeimyC [address] [place] [address] 12/10/2023 3:30 PM EST Nurse Only Ancillary Department, [place] [address] [facility] [place] [address] [place], Nurse [facility] [address] [place] [address] 12/19/2023 11:00 AM EST Office Visit Cardiology, [facility] [address] [place] [address] Amaya Singleton, PAJeimyC [address] [place] [address] 04/08/2024 3:15 PM EDT Office Visit Hematology/Oncology [facility] [address] [facility] [place] [address] Mario Kong MD [address] [facility] [place] [address] 06/30/2024 1:30 PM EDT Imaging Radiology [facility] 1st [facility] [address] [place] [address] 09/18/2024 3:00 PM EST Office Visit Sleep Disorders Ctr [facility] [address] [place] [phone] Lakshmi Rausch DO [address] [place] [address] Health Maintenance Due Date Last Done Comments Pneumococcal Vaccine: 65+ Years (2 - PCV) 02/24/2023 02/24/2022 Albumin/Creatinine Ratio 06/28/2023 06/28/2022 COVID-19 Vaccine (3 - 2022- season) 2023 02/17/2021, 01/27/2021 Influenza Vaccine (FLU shot) (#1) 2023 09/08/2021, 07/29/2020 Depression Screening 12/07/2023 12/07/2022 CKD PHOS USE SMARTSET 61363 03/16/202403/05, 03/29/2022, 05/13/2021, Additional history exists GFR 03/20/2024 09/20/2023, 06/05, 04/06/2023, Additional history exists CKD HGB USE SMARTSET 87969 04/25/202404/25, 04/25/2023, 04/06/2023, Additional history exists Mammogram [...] this encounter Medical Devices Implanted Type Area Knitter Machine Device Identifier Shelf Expiration Date Model / Serial / Lot [employer] Microvention Hydrosoft 3d Implanted:Qty: 1 on 08/16/2018 [place]as [place] [facility] [place] Head [employer] MED[employer] : INTERVENTIONA 07/05/2023 [id number] / [id number] / [id number] Hd Offset Hum 46x16 - [id number] Implanted:Qty: 1 on 09/28/2020 by Teresa Rehman DO at OR [facility] Left: Shoulder DJO SURGICAL 06/17/2026 520-46-31 6 / / [id number] documented as of this encounter Advance Directives [...] and were consensually agreed upon. Care Teams Sheet Music Salesperson Relationship Specialty Start Date End Date March, Sotero Sutton MD [address] [place] [address] PCP - General Family Medicine 12/07/22 documented as of this encounter
--- OUTSIDE RECORDS SUMMARY | 2023-11-15 04:20 | External Medical Summary | Summary of Care ---
Author Name Unknown Organization [facility] Address [address] [place] [address] Phone [phone] Care Team Providers Care Delivery Driver/Customer Service Name Role Phone Sotero Pizano MD Primary Care Provider [phone] Reason for Visit * Reason Onset Date Comments Advice 10/31/2023 Mild Rash with t aking Rx Azithromycin Encounter Details Date Type Department Care Team (Late st Contact Info) Description 10/31/2023 Telephone [facility] [address] [place] [address] Sotero Pizano MD [address] [place] [address] Advice (Mild Rash with taking Rx Azithromy... Allergies Active Allergy Reactions Criticality Noted Date [...] 16 % every night at bedtime. 0 Suspended Compressor NebulizerIndicatio ns:Chronic bronchitis with wheezing (HCC) Inhale via nebulizer . Use as directed. 1 Each 1 02/24/2022 Suspended Additional Information Vitamin D (Ergocalciferol) 1.25 MG (09733 UT) Oral Capsule TAKE ONE CAPSULE BY MOUTH MONTHLY 12 Capsule 0 05/03/2022 Suspended Additional Information Proventil HFA 108 (90 Base) MCG/ACT Inhalation Aerosol SolutionIndication s:Bronchitis,Upper respiratory tract infection, unspecified type Inhale 2 Puffs by mouth every 4 hours as needed for Congestion, Cough or Wheezing. 18 g 0 02/02/2023 Suspended Additional Information Triamcinolone Acetonide 0.5 % External Cream (Aristocort)Indica tions:Dermatitis,L ipodermatosclerosi s of both lower extremities apply topically to affected area of lower extremities where redness and itching and tight skin twice a day 450 g 0 02/26/2023 Suspended Additional Information Polyethylene Glycol 3350 17 GM/SCOOP Oral Powder (MiraLax)Indicatio ns:Constipation, unspecified constipation type Take 17 g by mouth daily as needed for Constipation. Dissolve one heaping tablespoon in 8 ounces of water or juice. 238 g 0 04/30/2023 Suspended Additional Information Patient not taking.Reported on 07/03/2023 Ondansetron HCl 4 MG Oral Tablet (Zofran)Indication s:Nausea TAKE 1 TABLET BY MOUTH EVERY 8 HOURS IF NEEDED FOR NAUSEA 30 Tablet 0 05/14/2023 Suspended Additional Information Vitamin D3 25 MCG (1000 UT) Oral Tablet Chewable Take 2,000 Units by mouth in the morning. 0 Suspended Senna 8.6 MG Oral Tablet Take 1 Tablet by mouth in the morning. 0 Suspended Pregabalin 25 MG Oral Capsule (Lyrica) Take 2 capsule in the am, and 2 capsules in pm. 120 Capsule 3 07/17/2023 Suspended Additional Information oxygen IN GAS Use 2 L/min(Oxygen) as directed at bedtime. 0 Suspended Aspirin 81 MG Oral Tablet Delayed Release (RA Aspirin EC)Indications:Cer ebral aneurysm, nonruptured Take 1 Tablet by mouth in the morning. 90 Tablet 3 07/29/2023 Suspended Additional Information Atorvastatin Calcium 10 MG Oral Tablet (Lipitor) Take 1 Tablet by mouth in the morning. 90 Tablet 3 07/29/2023 Suspended Additional Information Losartan Potassium 25 MG Oral Tablet (Cozaar)Indication s:HTN, goal below 140/90,Chronic kidney disease, stage 3b (HCC) Take 0.5 Tablets by mouth in the morning. 45 Tablet 3 07/29/2023 Suspended Additional Information Magnesium Oxide -Mg Supplement 400 (240 Mg) MG Oral Tablet (Mag-Ox)Indication s:HTN, goal below 140/90 Take 1 Tablet by mouth in the morning. In the morning.. 90 Tablet 3 07/29/2023 Suspended Additional Information Metoprolol Succinate ER 25 MG Oral Tablet Extended Release 24 Hour (Toprol XL) Take 1 Tablet by mouth in the morning. 90 Tablet 3 07/29/2023 Suspended Additional Information Torsemide 10 MG Oral Tablet (Demadex)Indicatio ns:Chronic heart failure with preserved ejection fraction (HCC) take 2 tablets (20 mg) in the morning and 1 tablet (10 mg) in the evening 90 Tablet 3 07/29/2023 Suspended Additional Information traZODone HCl 150 MG Oral Tablet (Desyrel) Take 1 Tablet by mouth at bedtime. 90 Tablet 3 07/29/2023 Suspended Additional Information Vitamin B-12 1000 MCG Oral Tablet (Cyanocobalamin)In dications:B12 deficiency Take 1 Tablet by mouth in the morning. 90 Tablet 3 07/29/2023 Suspended Additional Information DIURETIC TITRATION PLAN If no improvement on day 3, contact heart failure managing provider. 1 Each 0 07/30/2023 Suspended Additional Information Ipratropium-Albute rol 0.5-2.5 (3) MG/3ML Inhalation Solution (Duoneb)Indication s:Chronic bronchitis with wheezing (HCC) Inhale 3 mL via nebulizer in the morning and 3 mL at noon and 3 mL in the evening and 3 mL before bedtime. 1080 mL 1 08/07/2023 Suspended Additional Information Meclizine HCl 12.5 MG Oral Tablet (Antivert)Indicati ons:Vertigo TAKE 1 TABLET BY MOUTH THREE TIMES DAILY NEEDED for dizziness. 30 Tablet 1 08/13/2023 Suspended Additional Information LORazepam 1 MG Oral Tablet (Ativan) Take one pill, one half hour prior to MRI 1 Tablet 0 08/14/2023 Suspended Additional Information Patient not taking.Reported on 09/18/2023 rOPINIRole HCl 2 MG Oral Tablet (Requip) TAKE 1 TABLET BY MOUTH THREE TIMES DAILY WITH FOOD every morning, at noon, and before bedtime 90 Tablet 0 08/20/2023 Suspended Additional Information Patient taking differently: 4 mg Oral BID (.AM/PM), TAKE 1 TABLET BY MOUTH THREE TIMES DAILY WITH FOOD every morning, at noon, and before bedtime, Reported on 10/25/2023 Potassium Chloride Skye ER 20 MEQ Oral Tablet Extended Release Take 1 Tablet by mouth in the morning and 1 Tablet before bedtime. 180 Tablet 3 10/25/2023 Suspended Additional Information Fluticasone Propionate 50 MCG/ACT Nasal Suspension (Flonase) Administer 2 Sprays into nostril in the morning. 16 g 1 10/25/2023 Suspended Additional Information Azithromycin 250 MG Oral Tablet (Zithromax Z-Artur) Take two tablets by mouth on first day, then 1 tablet daily until gone 6 Tablet 0 10/25/2023 Suspended Additional Information Docusate Sodium 100 MG Oral Capsule (Colace)Indication s:Constipation, unspecified constipation type Take 1 Capsule by mouth in the morning and 1 Capsule before bedtime. 180 Capsule 3 10/25/2023 Suspended Additional Information documented as of this encounter (statuses as [...] mRNA, LNP-s, No Pre serve, 2-Dose Series (OwnerIQ) 02/17/2021,01/27/2021 Pneumococcal Polysaccharide PPV23 (Pneumovax) Seasonal Influenza, [...] encounter Miscellaneous Notes * Telephone Encounter - Tanesha Machuca, KRISHNA - 11/01/2023 10:03 AM EST Patient aware and verbalized understanding Azithromycin added to allergy list * Telephone Encounter - Sotero Pizano MD - 10/31/2023 6:34 PM EST Noted. Can discontinue medication. If needed, can take benadryl to assist with rash. To ED immediately if any signs of dysphagia or respiratory compromise. Sotero Pizano MD * Telephone Encounter - Teena Perdomo OSA - 10/31/2023 12:04 PM EST Pt called to let Know, She is on her last day of Rx Azithromycin, Is not taking the last dose, Started with mild allergic reaction this AM. Small red blister rash above upper lip traveling up the front of her nose. Stated, she has had this same rash in the past when taking Rx Azithromycin. Is treating with ice compress. Is not requesting a call back. Please advise, Thank you documented in this encounter Plan of Treatment Upcoming Encounters Date Type Department Care Team (Late st Contact Info) Description 11/07/2023 11:25 AM EST Office Visit Interventional Pain Center, [facility] [address] [facility] [place] [address] Satish Anthony DO [address] [place] [address] 11/23/2023 2:40 PM EST Office Visit [facility] [address] [facility] [phone] Sotero Pizano MD [address] [place] [facility] [place] [address] 11/27/2023 1:30 PM EST Office Visit Neurology [facility] [address] [facility] [place] [address] Vernell Kimball PA-C [address] [facility] [place] [address] 12/10/2023 3:30 PM EST Nurse Only Ancillary Department, [place] [address] [facility] [place] [address] [place], Nurse Annual [facility] [address] [place] [address] 12/19/2023 11:00 AM EST Office Visit Cardiology, [facility] [address] [place] [address] Amaya Singleton PA-C [address] [facility] [place] [address] 04/08/2024 3:15 PM EDT Office Visit Hematology/Oncology [facility] [address] [facility] [place] [address] Mario Kong MD [address] [facility] [place] [address] 06/30/2024 1:30 PM EDT Imaging Radiology [facility] 1st [facility] [address] [facility] [place] [address] 09/18/2024 3:00 PM EST Office Visit Sleep Disorders Ctr [facility] [address] [facility] [place] [phone] Lakshmi Rausch, [address] [facility] [place] [address] Scheduled Procedures Name Priority Associated Diagnoses Date/Ti [...] Screening 12/07/2023 12/07/2022 CKD PHOS USE SMARTSET 35520 03/16/202403/05, 03/29/2022, 05/13/2021, Additional history exists GFR 03/20/2024 09/20/2023, 06/05, 04/06/2023, Additional history exists CKD HGB USE SMARTSET 83794 04/25/202404/25, 04/25/2023, 04/06/2023, Additional history exists Mammogram [...] this encounter Medical Devices Implanted Type Area Intelligence Officer Device Identifier Shelf Expiration Date Model / Serial / Lot Twitch Microvention Hydrosoft 3d Implanted:Qty: 1 on 08/16/2018 [place] [facility] [place] Head [employer] : INTERVENTIONA 07/05/2023 [id number] / [id number] / [id number] Hd Offset Hum 46x16 - [id number] Implanted:Qty: 1 on 09/28/2020 by Teresa Rehman, at OR [facility] Left: Shoulder [employer] SURGICAL 06/17/2026 [id number] documented as of this encounter Advance Directives [...] and were consensually agreed upon. Care Teams Delivery Driver/Customer Service Relationship Specialty Start Date End Date March, Sotero Sutton MD [address] [facility] [place] [address] PCP - General Family Medicine 12/07/22 documented as of this encounter
--- OUTSIDE RECORDS SUMMARY | 2023-11-15 04:20 | External Medical Summary | Summary of Care ---
Author Name Unknown Organization [facility] Address [address] [place] [address] Phone [phone] Care Team Providers Care Nutrition Assistant Name Role Phone Sotero Pizano MD Primary Care Provider [phone] Reason for Visit * Reason Onset Date Comments [facility]: Maintenance 10/28/2023 Encounter Details Date Type Department Care Team ([facility] st Contact Info) Description 10/28/2023 3:40 PM EST Scheduled Telephone [facility], [facility] [address] [place] [address] [facility], Nurse [facility] [address] [place] [address] Allergies Active Allergy Reactions Criticality Noted Date Comments Amoxicillin 09/18/2023 Duloxetine Hcl Nausea/vomiting,Rash 01/23/2019 Hydrochlorothiazide W/Triamterene Nausea/vomiting [...] as of this encounter (statuses as of 10/28/2023) Medications Medication Sig Dispensed Refills Start Date End Date Status CPAP 16 % every night at bedtime. 0 Active Compressor NebulizerIndication s:Chronic bronchitis with wheezing (HCC) Inhale via nebulizer . Use as directed. 1 Each 1 02/24/2022 Active Vitamin D (Ergocalciferol) 1.25 MG (35620 UT) Oral Capsule TAKE ONE CAPSULE BY [...] as of this encounter (statuses as of 10/28/2023) Active Problems Problem Noted Date Diagnosed Date [...] as of this encounter (statuses as of 10/28/2023) Resolved Problems Problem Noted Date Diagnosed Date [...] as of this encounter (statuses as of 10/28/2023) Immunizations Name Administration Dates Next Due COVID-19 [...] encounter Miscellaneous Notes * Telephone Encounter - Bhavani Ferrari RN - 10/28/2023 1:14 PM EST Images from the original note were not included. PC placed to patient for [facility]. Spoke with patient. Identified by name & . States her weight is actually down. Offers no health complaints, concerns, or needs at this time. Continues at baseline. Patient encouraged to call [facility] intake phone number for all urgent, non-emergent health issues, phone number provided. documented in this encounter Plan of Treatment Upcoming Encounters Date Type Department Care Team (Late st Contact Info) Description 11/01/2023 7:00 AM EST Appointment MRI, [place] [address] [facility] [place] [address] 11/01/2023 7:45 AM EST Hospital Encounter MRI, [place] [address] [place] [facility] [place] [address] 11/01/2023 2:00 PM EST Hospital Encounter [facility], OPERATING ROOM [facility] [address] [facility] [place] [address] [facility] [address] [facility] [address] 11/01/2023 2:00 PM EST - 11/01/2023 4:10 PM EST Surgery [facility], OPERATING [facility] [address] [facility] [place] [address] [facility], In And Out Surgery [address] [place] [address] ANESTHESIA FOR NON-INVASIVE IMAGING (MRI OR CT) 11/07/2023 11:25 AM EST Office Visit Interventional Pain Center, [facility] [address] [place] [address] Satish Anthony DO [address] [place] [address] 11/07/2023 12:30 PM EST Telemedicine Neurosurgery, [place] [address] [place] [address] Aime Casas MD [address] [place] [address] 11/23/2023 2:40 PM EST Office Visit [address] [address] Sotero Pizano MD [address] [place] [address] 11/27/2023 1:30 PM EST Office Visit Neurology [facility] [address] [place] [address] Vernell Kimball PAEdie [facility] [place] [address] 12/10/2023 3:30 PM EST Nurse Only Ancillary Department, [place] [address] [facility] [place] [address] [facility] Nurse [facility] Wellness [address] [place] [address] 12/19/2023 11:00 AM EST Office Visit [facility], [facility] [place] [address] Amaya Singleton PA-C [address] [place] [address] 04/08/2024 3:15 PM EDT Office Visit Hematology/Oncolog y [facility] [address] [place] [address] Mario Kong MD [address] [place] [address] 06/30/2024 1:30 PM EDT Imaging Radiology [facility]st [facility] [place] [address] 09/18/2024 3:00 PM EST Office Visit Sleep Disorders Ctr [facility] [address] [place] [phone] Lakshmi Rausch DO [address] [place] [address] Scheduled Procedures Name Priority Associated Diagnoses Date/Ti me ANESTHESIA FOR NON-INVASIVE IMAGING (MRI OR CT) Cervical radicular pain Cerebral aneurysm, nonruptured 11/01/2023 2:00 PM EST Health Maintenance Due Date Last Done Comments Pneumococcal Vaccine: 65+ Years (2 - PCV) 02/24/2023 02/24/2022 Albumin/Creatinine Ratio 06/28/2023 06/28/2022 COVID-19 Vaccine (3 - season) 2023 02/17/2021, 01/27/2021 Influenza Vaccine (FLU shot) (#1) 2023 09/08/2021, 07/29/2020 Depression Screening 12/07/2023 12/07/2022 CKD PHOS USE SMARTSET 29439 03/16/202403/05, 03/29/2022, 05/13/2021, Additional history exists GFR 03/20/2024 09/20/2023, 06/05, 04/06/2023, Additional history exists CKD HGB USE SMARTSET 93549 04/25/202404/25, 04/25/2023, 04/06/2023, Additional history exists Mammogram [...] this encounter Medical Devices Implanted Type Area Levers Lace Machine Operator Device Identifier Shelf Expiration Date Model / Serial / Lot UBmatrix 3d Implanted:Qty: 1 on 08/16/2018 by Aime Casas MD [place] [facility] [place]: Head [employer] : INTERVENTIONA 07/05/2023 [id number] / [id number] / [id number] Hd Offset Hum 46x16 - [id number] Implanted:Qty: 1 on 09/28/2020 by Teresa Rehman DO at OR [facility] Left: Shoulder DJO SURGICAL 06/17/2026 [id number] / / [id number] documented as of this encounter Advance Directives [...] and were consensually agreed upon. Care Teams Nutrition Assistant Relationship Specialty Start Date End Date March, Sotero Sutton MD [address] [facility] [place] [address] PCP - General Family Medicine 12/07/22 documented as of this encounter
--- OUTSIDE RECORDS SUMMARY | 2023-11-15 04:21 | External Medical Summary ---
Author Name Unknown Address Unknown Organization K01:LABOR[facility]ORY [facility] [place] - [address] [facility] [facility] [address] Laboratory Report Ordering Provider Test Date Status MALA RAI 09/20/2023 15:39:55 Final Observation Date Value Abnormality Reference (Units ) Status BUN 09/20/2023 15:39:55 16 6-20 (mg/dL) Final Creatinine 09/20/2023 15:39:55 1.4 Above high normal 0.5-1.0 (mg/dL) Final Glomerular filtration rate/1.73 sq M.predicted [Volume Rate/Area] in Serum, Plasma or Blood by Creatinine-based formula (CKD-EPI) 09/20/2023 15:39:55 42 Below low normal >=60 (mL/min) Final eGFR is calculated based on the CKD-EPI 2020 equation SODIUM 09/20/2023 15:39:55 143 135-146 (m mol/L) Final Potassium 09/20/2023 15:39:55 3.3 Below low normal 3.5 -5.1 (mmol/L) Final Cl 09/20/2023 15:39:55 100 98-107 (mm ol/L) Final CO2 09/20/2023 15:39:55 35 Above high normal 22 -32 (mmol/L) Final Anion gap 09/20/2023 15:39:55 8 7-15 (mmol /L) Final Glucose 09/20/2023 15:39:55 101 70-120 (mg /dL) Final Albumin 09/20/2023 15:39:55 4.1 3.8-5.0 (g /dL) Final AST (Aspartate aminotransferase) 09/20/2023 15:39:55 16 10-35 (U/L) Fin al Alk Phos 09/20/2023 15:39:55 117 35-130 (U/ L) Final Bilirubin, Total 09/20/2023 15:39:55 0.4 <=1 .2 (mg/dL) Final Calcium 09/20/2023 15:39:55 9.0 8.4-10.2 ( mg/dL) Final Protein 09/20/2023 15:39:55 6.7 6.0-8.3 (g /dL) Final ALT (Alanine aminotransferase) 09/20/2023 15:39:55 15 10-35 (U/L) Gian devries Performing Location LABORATORY [facility] [place] - [facility] [address] [facility] [address]
--- OUTSIDE RECORDS SUMMARY | 2023-11-15 04:21 | External Medical Summary | Summary of Care ---
Author Name Unknown Organization [facility] Address [address] [place] [address] Phone [phone] Care Team Providers Care [employer] Worker Name Role Phone Sotero Pizano MD Primary Care Provider [phone] Reason for Visit * Reason Comments Physical-Exam Needs clearance to b e put under anesthesia for MRI, feels like she has sinus infection, lump left upper quadrant. Asking if she should be taking Potassium Encounter Details Date Type Department Care Team (Late st Contact Info) Description 10/25/2023 2:00 PM EST Office Visit [facility] [address] [place] [address] Elpidio Starkey MD [address] [place] [address] Cerebral aneurysm, nonruptured*; Hypertensive heart and kidney disease with chronic diastolic congestive heart failure and stage 3b chronic kidney disease ([facility]); Constipation, unspecified constipation type; Severe obstructive sleep apnea-hypopnea syndrome; Paroxysmal atrial fibrillation ([facility]); Nocturnal hypoxemia; Morbid (severe) obesity due to excess calories ([facility]); Chronic kidney disease, stage 3b ([facility]); BMI 40.0-44.9, adult ([facility]) Allergies Active Allergy Reactions Criticality Noted Date [...] as of this encounter (statuses as of 10/25/2023) Medications Medication Sig Dispensed Refills Start Date End Date Status CPAP 16 % every night at bedtime. 0 Active Compressor NebulizerIndicati ons:Chronic bronchitis with wheezing (HCC) Inhale via nebulizer . Use as directed. 1 Each 1 02/24/2022 Active Vitamin D (Ergocalciferol) 1.25 MG (93548 UT) Oral Capsule TAKE ONE CAPSULE BY [...] Active Docusate Sodium 100 MG Oral Capsule (Colace)Indicatio ns:Constipation, unspecified constipation type Take 1 Capsule by mouth in the morning and 1 Capsule before bedtime. 180 Capsule 3 10/25/2023 Active Fluticasone Propionate 50 MCG/ACT Nasal Suspension (Flonase) Administer 2 Sprays into nostril in the morning. 0 3 Discontinue d(Refill) Docusate Sodium 100 MG Oral Capsule (Colace)Indicatio ns:Constipation, unspecified constipation type Take 1 Capsule by mouth every evening. 90 Capsule 3 07/29/2023 3 Discontinue d(Refill) documented as of this encounter (statuses as of 10/25/2023) Active Problems Problem Noted Date Diagnosed Date [...] as of this encounter (statuses as of 10/25/2023) Resolved Problems Problem Noted Date Diagnosed Date [...] as of this encounter (statuses as of 10/25/2023) Immunizations Name Administration Dates Next Due COVID-19 [...] Sign Reading Time Taken Comments Blood Pressure 118/72 10/25/2023 1:56 PM EST Pulse 80 10/25/2023 1:56 PM EST Temperature 36 C (96.8 F) 10/25/2023 1:56 PM EST Respiratory Rate 18 10/25/2023 1:56 PM EST Oxygen Saturation 96% 10/25/2023 1:56 PM EST Inhaled Oxygen Concentration - - Weight 112.9 kg (249 lb) 10/25/2023 1:56 PM EST Height 166.4 cm (5' 5.5") 10/25/2023 1:56 PM EST Body Mass Index 40.81 10/25/2023 1:56 PM EST documented in this encounter Functional Status Functional [...] as of this encounter Progress Notes * Elpidio Starkey MD - 10/25/2023 3:22 PM EST Subjective Kristen Garcia is a 68 year old female. Chief Complaint Patient presents with Physical-Exam Needs clearance to be put under anesthesia for MRI, feels like she has sinus infection, lump left upper quadrant. Asking if she should be taking Potassium HPI: Here for clearance on general anesthesia for MRA and MRI tests ( brain and cervical spine) which isscheduled on Nov 01 Known cerebral aneurysm, with stent in 2018 , non rupture Gets routine f/u with MRI test Pt has known severe STEFANY, on CPAP , hypoxia, obesity related F.u with sleep medicine too Also c/o worse sinus congestion infection sign last 3 wks - denies fever, SOB but gets coughs on bed , at night Known paroxy afib, CHF diastolic, taking torsemide 20 + 10 , low potassium level, ordered [id number] + 20 meq today Will f/u BMP Known CKD, HTN , stable Also c/o chronic constipation Taking colace daily , will increase bid And advised to increase water intake and diet change And probiotic daily use too PMH: Patient Active Problem List Diagnosis Code Hirsutism L68.0 Generalized osteoarthritis M15.9 Aspirin intolerance Z78.9 Respiratory symptoms R09.89 Fibromyalgia M79.7 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 History of basal cell carcinoma Z85.828 HTN, goal below 140/90 I10 Nonalcoholic fatty liver disease K76.0 Lymphedema of both lower extremities I89.0 Severe obstructive sleep apnea-hypopnea syndrome G47.33 Paroxysmal atrial fibrillation (HCC) I48.0 Cerebral aneurysm, nonruptured I67.1 Major depressive disorder, single episode, mild (HCC) F32.0 Atherosclerosis of aorta (HCC) I70.0 RLS (restless legs syndrome) G25.81 Nocturnal hypoxemia G47.34 Lipodermatosclerosis of both lower extremities M79.3 Chronic kidney disease, stage 3b (HCC) N18.32 Morbid (severe) obesity due to excess calories ([facility]) E66.01 Panic disorder (episodic paroxysmal anxiety) F41.0 Hyperlipidemia E78.5 BMI 40.0-44.9, adult (HCC) Z68.41 Hypertensive heart disease with diastolic heart failure and stage 3b chronic kidney disease (HCC) I13.0, I50.30, N18.32 Iron deficiency anemia due to chronic blood loss D50.0 Current Outpatient Medications Medication Sig Dispense Refill CPAP 16 % every night at bedtime. Compressor Nebulizer Inhale via nebulizer . Use as directed. 1 Each 1 Vitamin D (Ergocalciferol) 1.25 MG (10783 UT) Oral Capsule TAKE ONE CAPSULE BY [...] skin twice a day 450 g 0 Ondansetron HCl 4 MG Oral Tablet (Zofran) TAKE 1 TABLET BY MOUTH EVERY 8 HOURS IF NEEDED FOR [id number] Tablet 0 Vitamin D3 25 MCG (1000 [...] TIMES DAILY NEEDED fordizziness. 30 Tablet 1 rOPINIRole HCl 2 MG Oral Tablet (Requip) [...] 1 Capsule before bedtime. 180 Capsule 3 Polyethylene Glycol 3350 17 GM/SCOOP Oral Powder (MiraLax) Take 17 g by mouth daily as needed for Constipation. Dissolve one heaping tablespoon in 8 ounces of water or juice. (Patient not taking: Reported on 07/03/2023) 238 g 0 LORazepam 1 MG Oral Tablet (Ativan) Take one pill, one half hour prior to MRI (Patient not taking: Reported on 09/18/2023) 1 Tablet 0 No current facility-administered medications for this visit. Past Medical History: Diagnosis Date Anxiety state, [...] hypertension Past Surgical History: Procedure Laterality Date BREAST LESION,OTHER,EXCISION 1993 Breast Biopsy needle benign CAROTID (INTERNAL) ARTERY CATHETHER PLACEMENT Bilateral 07/15/2018 CATHETER PLACEMENT INTERNAL CAROTID ARTERY performed by Aime Casas MD at OR [facility] CAROTID (INTERNAL) ARTERY CATHETHER PLACEMENT Bilateral 01/23/2019 CATHETER PLACEMENT INTERNAL CAROTID ARTERY performed by Aime Casas MD at OR [facility] CATHETER OCCLUSION/EMBOLIZATION,INDUSTRIAL HYGENIST N/A 08/16/2018 TRANSCATHETER PERMANENT ARTERIAL OCCLUSION CENTRAL NERVOUS SYSTEM performed by Aime Casas MD at [facility] DELIVERY 1982 Delivery Only COLONOSCOPY, DIAGNOSTIC (RECTUM) 09/05/2016 adenomatous polyps, diverticulosis, repeat 5 yrs/[facility] COLONOSCOPY, DIAGNOSTIC (RECTUM) 06/02/2020 fair prep, normal / [facility] COLONOSCOPY, DIAGNOSTIC (RECTUM) N/A 08/11/2022 [facility], colonoscopy prep-fair, hemorrnoids on perianal exam , otherwise normal / no specimens collected / EGD, FLEXIBLE, DIAGNOSTIC 06/02/2020 erosive gastropathy / [facility] EGD, FLEXIBLE, DIAGNOSTIC N/A 08/11/2022 [facility], EGD, normal scope / no specimens collected / EXPLORATION OF ABDOMEN 1973 Exploratory Of Abdomen HEMORRHOIDECTOMY, INTERNAL W/ BANDING Hemorrhoid(S) Ligation ramondelli INFORMATION 1976/.81 labor and delivery x 2 INFORMATION 08/16/2018 x2 STENTS Terumo MicroVention LVIS Jr Intraluminal Support Device model #[id number] INFORMATION 08/16/2018 x2 STENTS [employer] LVIS Jr Intraluminal Support Device model# [id number] INFORMATION 08/16/2018 COIL [employer] Hydrosoft 3D model# [id number] INFORMATION 08/16/2018 COIL [employer] Hydrosoft 3D model# [id number] INJECTION CERVICAL/THORACIC 08/02/2016 INJECTION SPINE LUMBAR CERVICAL OR THORACIC performed by Elijah Nash DO at OR [facility] INTRACRANIAL ARTERIES CATH PLACEMENT N/A 08/16/2018 CATHETER PLACEMENT EACH INTRACRANIAL BRANCH OF THE INTERNAL CAROTID OR VERTEBRAL ARTERIES performedby Aime Casas MD at OR [facility] INTRACRANIAL INTRAVASCULAR STENT,INCL ANGIO N/A 08/16/2018 TRANSCATHETER PLACEMENT OF INTRAVASCULAR STENTS, INTRACRANIAL performed by Aime Casas MD at OR [facility] LIGATION/BIOPSY OF TEMPORAL ARTERY Left 06/05/2018 [facility] RECONSTRUCT/REPLACE SHOULDER JOINT Left 09/28/2020 ARTHROPLASTY TOTAL SHOULDER performed by Teresa Rehman DO at OR [facility] REMOVAL OF APPENDIX 1973 Appendectomy REMOVAL OF OVARY/OVIDUCT(S) 1983 Ovary/Tube(S) Removal REMOVAL OF TONSILS, UNDER AGE 12 REMOVE TENDON SHEATH LESION, HAND Right 12/01/2014 EXCISION LESION TENDON SHEATH OR CAPSULE HAND OR FINGER performed by Javi Bishop MD at OR [facility] REVISE UPPER EYELID/EXCESS SKIN Bilateral [facility]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" SACROILIAC JOINT INJECT W/GUIDANCE 01/08/2017 INJECTION SACROILIAC JOINT performed by Elijah Nash DO at OR [facility] SACROILIAC JOINT INJECT W/GUIDANCE 02/28/2018 INJECTION SACROILIAC JOINT performed by Elijah Nash DO at OR [facility] TOTAL HYSTERECTOMY 1984 ANA (Total Abdominal Hysterectomy) Bleeding VERTEBRAL ARTERY CATHETER PLACEMENT Bilateral 07/15/2018 CATHETER PLACEMENT VERTEBRAL ARTERY, performed by Aime Casas MD at OR [facility] VERTEBRAL ARTERY CATHETER PLACEMENT Bilateral 01/23/2019 CATHETER PLACEMENT VERTEBRAL ARTERY, performed by Aime Casas MD at OR [facility] Review of patient's allergies indicates: Allergen Reactions [...] [Acetaminophen] Restless legs are worse when taking. Family History Problem Relation Age of Onset Hypertension Mother Cancer Mother 81 lung cancer, smoker Diabetes Mother 59 IDDM Lung Disorder Mother Heart Disorder Father Lung Disorder Father emphysema, smoker Gastro-intestinal disorder Father diverticulitis Other (diverticulitis) Father Eye Problems Grandmother (Paternal) unsure diagnosis Heart Disorder Grandfather (Paternal) Eye Problems Sister DR w/ Bleed Diabetes Aunt (Unspecified) maternal Cancer Aunt (Unspecified) dec, ? leukemia Glaucoma None Denies family hx Family Status Relation Status Mo at age 81 lung cancer, smoker, HTN, IDDM Fa at age 67 heart MGMA at age 88 old age MGFA at age unknown unknown PGMA at age 74 old age PGFA at age unknown heart Sis Alive spot on lung Sis Alive Sis Alive Sis Alive Sis Alive RA, fibromyalgia Bro Alive Benedicto Alive Benedicto Alive Benedicto Alive AUNT (Not Specified) AUNT (Not Specified) NONE (Not Specified) Social History Socioeconomic History Marital status: Spouse name: Leonides Number of children: 3 Years of education: Not on file Highest education level: Not on file Occupational History 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 Tobacco Use Smoking status: Former Packs/day: 0.25 Years: 25.00 Additional pack years: 0.00 Total pack years: 6.25 Types: Cigarettes Quit date: 12/12/2002 Years since quittin.8 Smokeless tobacco: Never Tobacco comments: was smoking 1/2 pack per day Vaping Use Vaping Use: Never used Substance and Sexual Activity Alcohol use: Not Currently Comment: rarely Drug use: Yes Types: Marijuana Comment: marijuana couple times per month Sexual activity: Yes Partners: Male Other Topics Concern Service No Blood Transfusions No Caffeine Concern No Occupational Exposure No Hobby Hazards No Sleep Concern No Stress Concern No Weight Concern Yes Special Diet Yes Back Care Not Asked Exercise Yes Comment: [facility] Helmet Not Asked Seat Belt No Comment: advised Self-Exams Yes Social History Narrative Not on file Social Determinants of Health Financial Resource Strain: Not on file Food Insecurity: No Food Insecurity (02/07/2023) Hunger Vital Sign Worried About Running Out of Food in the Last Year: Never true Ran Out of Food in the Last Year: Never true Transportation Needs: Not on file Physical Activity: Not on file Stress: Not on file Social Connections: Not on file Intimate Partner Violence: Not on file Housing Stability: Not on file Review of Systems Constitutional: Positive for fatigue. Negative for activity change, appetite change, chills, diaphoresis, fever and unexpected weight change. HENT: Positive for congestion, ear pain, postnasal drip, rhinorrhea, sinus pressure, sore throat and tinnitus. Negative for facial swelling, sinus pain and sneezing. Eyes: Negative for pain and visual disturbance. Respiratory: Positive for cough. Negative for chest tightness, shortness of breath and wheezing. Cardiovascular: Positive for leg swelling. Negative for chest pain and palpitations. Gastrointestinal: Negative for abdominal distention and abdominal pain. Allergic/Immunologic: Positive for environmental allergies. Neurological: Negative for dizziness, light-headedness and headaches. Psychiatric/Behavioral: Positive for sleep disturbance. Negative for agitation and behavioral problems. Objective BP 118/72 | Pulse 80 | Temp 36 C (96.8 F) | Resp 18 | Ht 1.664 m (5' 5.5") | Wt 112.9 kg (249 lb) | SpO2 96% | BMI 40.81 kg/m | BSA 2.28 m Physical Exam Constitutional: General: She is not in acute distress. Appearance: Normal appearance. She is obese. She is not ill-appearing, toxic- appearing or diaphoretic. HENT: Head: Normocephalic and atraumatic. Ears: Comments: Fluid TMs Nose: Congestion present. Eyes: Extraocular Movements: Extraocular movements intact. Cardiovascular: Rate and Rhythm: Normal rate and regular rhythm. Pulses: Normal pulses. Pulmonary: Effort: Pulmonary effort is normal. No respiratory distress. Breath sounds: Normal breath sounds. No stridor. No wheezing, rhonchi or rales. Chest: Chest wall: No tenderness. Musculoskeletal: Cervical back: Normal range of motion. Neurological: General: No focal deficit present. Mental Status: She is alert and oriented to person, place, and time. Cranial Nerves: No cranial nerve deficit. Psychiatric: Behavior: Behavior normal. ASSESSMENT/PLAN: Cerebral aneurysm, nonruptured (Primary) Hypertensive heart and kidney disease with chronic diastolic congestive heart failure and stage 3b chronic kidney disease (HCC) - BASIC METABOLIC PANEL; Future; Expected date: 11/08/2023 Constipation, unspecified constipation type - Docusate Sodium 100 MG Oral Capsule (Colace); Take 1 Capsule by mouth in the morning and 1 Capsule before bedtime. Severe obstructive sleep apnea-hypopnea syndrome Paroxysmal atrial fibrillation ([facility]) Nocturnal hypoxemia Morbid (severe) obesity due to excess calories (HCC) Chronic kidney disease, stage 3b (HCC) BMI 40.0-44.9, adult ([facility]) Other orders - Potassium Chloride Skye ER 20 MEQ Oral Tablet Extended Release; Take 1 Tablet by mouth in the morning and 1 Tablet before bedtime. - Fluticasone Propionate 50 MCG/ACT Nasal Suspension (Flonase); Administer 2 Sprays into nostril inthe morning. - Azithromycin 250 MG Oral Tablet (Zithromax Z-Artur); Take two tablets by mouth on first day, then 1tablet daily until gone Zyrtec + flonase Zpak Cont all other meds Potassium F/u BMP Consider O2 during MRI test if possible Will discuss with neurosurgery , maybe radiology Elpidio Starkey MD documented in this encounter Plan of Treatment Upcoming Encounters Date Type Department Care Team (Late st Contact Info) Description 11/01/2023 7:00 AM EST Appointment [address] [address] 11/01/2023 7:45 AM EST Hospital Encounter [address] [address] 11/01/2023 1:30 PM EST Hospital Encounter OR [facility], OPERATING ROOM [facility], [facility] [address] [facility] [place] [address] c, In And Out Surgery [address] [facility] [place], [place] [address] 11/01/2023 1:30 PM EST - 11/01/2023 3:40 PM EST Surgery OR [facility], OPERATING ROOM [facility], [facility] [address] [facility] [place] [address] [facility], In And Out Surgery [address] [facility] [place], [place] [address] ANESTHESIA FOR NON-INVASIVE IMAGING (MRI OR CT) 11/07/2023 11:25 AM EST Office Visit Interventional Pain Center, [facility] [address] [place] [address] Satish Anthony DO [address] [place] [phone] 11/07/2023 12:30 PM EST Telemedicine Neurosurgery, Printer [address] [facility] [place] [address] Aime Casas MD [address] [facility] [place] [address] 11/23/2023 2:40 PM EST Office Visit Family [facility], [place] [address] [place] [phone] Sotero Pizano MD [address] [place] [address] 11/27/2023 1:30 PM EST Office Visit Neurology [facility] [address] [place] [address] Vernell Kimball PA-C [address] [place] [address] 12/10/2023 3:30 PM EST Nurse Only [facility]illary Department, [place] [address] [facility] [address] [place], Nurse [facility] [address] [facility], [place] [address] 12/19/2023 11:00 AM EST Office Visit Cardiology, [facility] [address] [facility] [place] [address] Amaya Singleton, PAEdie [address] [place] [address] 04/08/2024 3:15 PM EDT Office Visit Hematology/Oncolog y [facility] [address] [place] [address] Mario Kong MD [address] [place] [address] 06/30/2024 1:30 PM EDT Imaging Radiology [facility] [address] [facility] [place] [address] 09/18/2024 3:00 PM EST Office Visit Sleep Disorders Ctr [facility] [address] [facility] [place] [phone] Lakshmi Rausch DO [address] [facility] [place] [address] Scheduled Orders Name Type Priority Associated Diagnoses Orde r Schedule BASIC METABOLIC PANEL Lab Routine Hypertensive heart and kidney disease with chronic diastolic congestive heart failure and stage 3b chronic kidney disease (HCC) Expected: 11/08/2023 (Approximate), Expires: 10/24/2024 Scheduled Procedures Name Priority Associated Diagnoses Date/Ti me ANESTHESIA FOR NON-INVASIVE IMAGING (MRI OR CT) Cervical radicular pain Cerebral aneurysm, nonruptured 11/01/2023 1:30 PM EST Health Maintenance Due Date Last Done Comments Pneumococcal Vaccine: 65+ Years (2 - PCV) 02/24/2023 02/24/2022 Albumin/Creatinine Ratio 06/28/2023 06/28/2022 COVID-19 Vaccine ( season) 2023 02/17/2021, 01/27/2021 Influenza Vaccine (FLU shot) (#1) 2023 09/08/2021, 07/29/2020 Depression Screening 12/07/2023 12/07/2022 CKD PHOS USE SMARTSET 08315 03/16/202403/05, 03/29/2022, 05/13/2021, Additional history exists GFR 03/20/2024 09/20/2023, 06/05, 04/06/2023, Additional history exists CKD HGB USE SMARTSET 61085 04/25/202404/25, 04/25/2023, 04/06/2023, Additional history exists Mammogram [...] this encounter Medical Devices Implanted Type Area Manager Of Production Device Identifier Shelf Expiration Date Model / Serial / Lot Drip Inumo Micro[employer] Hydrosoft 3d Implanted:Qty: 1 on 08/16/2018 by Aime Casas MD at OR [facility] N/A: Head [employer] : INTERVENTIONA 07/05/2023 [id number] / [id number] / [id number] Hd Offset Hum [id number] - [id number] Implanted:Qty: 1 on 09/28/2020 by Teresa Rehman DO at OR [facility] Left: Shoulder [employer] 06/17/2026 [id number] documented as of this encounter Visit Diagnoses Diagnosis Cerebral aneurysm, nonruptured- Primary Hypertensive heart and kidney disease with chronic diastolic congestive heart failure and stage 3b chronic kidney disease (HCC) Constipation, unspecified constipation type Severe obstructive sleep apnea-hypopnea syndrome Paroxysmal atrial fibrillation (HCC) Atrial fibrillation Nocturnal hypoxemia Hypoxemia Morbid (severe) obesity due to excess calories (HCC) Chronic kidney disease, stage 3b (HCC) BMI 40.0-44.9, adult (HCC) Body Mass Index 40.0-44.9, adult Cervical radicular pain Brachial neuritis or radiculitis nos Cerebral aneurysm, nonruptured documented in this encounter Advance Directives Latest [...] and were consensually agreed upon. Care Teams [employer] Worker Relationship Specialty Start Date End Date March, Sotero Sutton MD [address] [place] [address] PCP - General Family Medicine 12/07/22 documented as of this encounter
--- OUTSIDE RECORDS SUMMARY | 2023-11-15 04:21 | External Medical Summary ---
Author Name Unknown Address Unknown Organization K01:[facility] - [address] [place] [address] Laboratory Report Ordering Provider Test Date Status MALA RAI 09/20/2023 15:39:55 Final Exclude Heart Failure: <300 pg/mL
Diagnose Heart Failure:
Age <50 yr: >450 pg/mL
50-75 yr: >900 pg/mL
>75 yr: >1800 pg/mL
GFR is 30-59 mL/min: >1200 pg/mL or Age- adjusted values
GFR <30 mL/min: do not use, not reliable

Prognostic threshold: 1000 pg/mL Observation Date Value Abnormality Reference (Units ) Status BNP, Pro-hormone 09/20/2023 15:39:55 42 <30 0 (pg/mL) Final Performing Location [facility] - [address] [place] [address]
--- OUTSIDE RECORDS SUMMARY | 2023-11-15 04:21 | External Medical Summary | Summary of Care ---
Author Name Unknown Organization [facility] Address [address] [place] [address] Phone [phone] Care Team Providers Care Rib Trim Separator Name Role Phone Sotero Pizano MD Primary Care Provider [phone] Reason for Visit * Reason Comments Outpatient Testing Encounter Details Date Type Department Care Team (Late st Contact Info) Description 09/20/2023 3:40 PM EST Laboratory Laboratory, [place] [address] [place] [address] [place], [facility] [address] [place] [address] Hypertensive heart and kidney disease with chronic diastolic congestive heart failure and stage 3b chronic kidney disease (HCC); Chronic kidney disease, stage 3b (HCC) Allergies Active Allergy Reactions Criticality Noted Date [...] as of this encounter (statuses as of 09/20/2023) Medications Medication Sig Dispensed Refills Start Date End Date Status CPAP 16 % every night at bedtime. 0 Active Compressor NebulizerIndication s:Chronic bronchitis with wheezing (HCC) Inhale via nebulizer . Use as directed. 1 Each 1 02/24/2022 Active Vitamin D (Ergocalciferol) 1.25 MG (07543 UT) Oral Capsule TAKE ONE CAPSULE BY MOUTH MONTHLY 12 Capsule 0 05/03/2022 Active Fluticasone Propionate 50 MCG/ACT Nasal Suspension (Flonase) Administer 2 Sprays into nostril in the morning. 0 Active Proventil HFA 108 (90 Base) MCG/ACT [...] the morning. 90 Tablet 3 07/29/2023 Active Docusate Sodium 100 MG Oral Capsule (Colace)Indications :Constipation, unspecified constipation type Take 1 Capsule by mouth every evening. 90 Capsule 07/29/2023 Active Losartan Potassium 25 MG Oral Tablet (Cozaar)Indications :HTN, goal below 140/90,Chronic kidney disease, stage 3b (HCC) Take 0.5 Tablets by mouth in the morning. 45 Tablet 3 07/29/2023 Active Magnesium Oxide -Mg Supplement 400 (240 Mg) MG Oral Tablet (Mag-Ox)Indications :HTN, goal below 140/90 Take 1 Tablet by mouth in the morning. In the morning.. 90 Tablet 07/29/2023 Active Metoprolol Succinate ER 25 MG [...] Tablet by mouth at bedtime. 90 Tablet 07/29/2023 Active Vitamin B-12 1000 MCG Oral [...] before bedtime 90 Tablet 0 08/20/2023 Active documented as of this encounter (statuses as of 09/20/2023) Active Problems Problem Noted Date Diagnosed Date [...] as of this encounter (statuses as of 09/20/2023) Resolved Problems Problem Noted Date Diagnosed Date [...] as of this encounter (statuses as of 09/20/2023) Immunizations Name Administration Dates Next Due COVID-19 mRNA, LNP-s, No Pre serve, 2-Dose Series ([employer]) 02/17/2021,01/27/2021 Pneumococcal Polysaccharide PPV23 (Pneumovax) SEASONAL INFLUENZA, PF, 6 M & Above, IM , (FLULAVAL or FLUZONE) 07/29/2020 Seasonal Influenza, Quadrivalent Hd (Fluzone Hd) [...] Team (Late st Contact Info) Description 10/25/2023 4:00 PM EST Home Visit [facility] [address] [facility] [place] [address] Ladi Joseph RN [address] [place] [address] 11/01/2023 7:00 AM EST Appointment Claudia FELDMAN [address] [place] [address] 11/01/2023 7:45 AM EST Hospital Encounter [facility], Claudia [address] [place] [address] 11/01/2023 3:20 PM EST Hospital Encounter [facility] [address] [place] [address] [facility], In And Out Surgery [address] [place] [address] 11/01/2023 3:20 PM EST - 11/01/2023 5:55 PM EST Surgery OR [facility], OPERATING ROOM [facility], [facility] [address] [facility] [place], [place] [address] [facility], In And Out Surgery [address] [place] [place] [address] ANESTHESIA FOR NON-INVASIVE IMAGING (MRI OR CT) 11/07/2023 11:25 AM EST Office Visit Interventional Pain Center, [facility] [address] [place] [address] Satish Anthony DO [address] [place] [address] 11/07/2023 12:30 PM EST Telemedicine Neurosurgery, [place] [address] [facility] [place] [address] Aime Casas MD [address] [place] [facility] [place] [address] 11/23/2023 2:40 PM EST Office Visit Family Practice, [place] [address] [facility] [phone] Sotero Pizano MD [address] [place] [facility] [address] 11/27/2023 1:30 PM EST Office Visit Neurology [facility] [address] [place] [address] Vernell Kimball PA-C [address] [place] [address] 12/10/2023 3:30 PM EST Nurse Only Ancillary Department, [place] [address] [facility] [address] [place], Nurse [facility] [address] [facility] [address] 12/19/2023 11:00 AM EST Office Visit Cardiology, [facility] [address] [facility] [place] [address] Amaya Singleton PA-C 132 [facility] [place] [address] 04/08/2024 3:15 PM EDT Office Visit Hematology/Oncolog y [facility] [address] [place] [address] Mario Kong MD [address] [place] [address] 06/30/2024 1:30 PM EDT Imaging Radiology [facility] 1st [facility] [address] [facility] [place] [address] 09/18/2024 3:00 PM EST Office Visit Sleep Disorders Ctr [facility] 132 [facility] [place] [phone] Lakshmi Rausch DO 132 [facility] [place] [address] Pending Results Name Type Priority Associated Diagnoses Date /Time COMPREHENSIVE METABOLIC PANEL Lab Routine Hypertensive heart and kidney disease with chronic diastolic congestive heart failure and stage 3b chronic kidney disease (HCC) 09/20/2023 3:39 PM EST BNP, NT-PRO Lab Routine Hypertensive heart and kidney disease with chronic diastolic congestive heart failure and stage 3b chronic kidney disease (HCC) 09/20/2023 3:39 PM EST Scheduled Procedures Name Priority Associated Diagnoses Date/Ti me ANESTHESIA FOR NON-INVASIVE IMAGING (MRI OR CT) Cervical radicular pain Cerebral aneurysm, nonruptured 11/01/2023 3:20 PM EST Health Maintenance Due Date Last Done Comments Pneumococcal Vaccine: 65+ Years (2 - PCV) 02/24/2023 02/24/2022 Albumin/Creatinine Ratio 06/28/2023 06/28/2022 COVID-19 Vaccine (3 - 2022- season) 2023 02/17/2021, 01/27/2021 Influenza Vaccine (FLU shot) (#1) 2023 09/08/2021, 07/29/2020 Depression Screening 12/07/2023 12/07/2022 GFR 12/22/2023 06/21/2023, 06/0 12/2022, 03/21/2023, Additional history exists CKD PHOS USE SMARTSET 09617 03/16/202403/05, 03/29/2022, 05/13/2021, Additional history exists CKD HGB USE SMARTSET 99009 04/25/202404/25, 04/25/2023, 04/06/2023, Additional history exists Mammogram 06/28/2024 06/28/2023, 05/05, 06/09/2016, Additional history exists Diabetes Screening 06/21/2026 06/21/2023, 0 04/06/2023, 03/27/2023, Additional history exists COLONOSCOPY-EVERY 5 YRS AGES [...] this encounter Medical Devices Implanted Type Area Environmental Lawyer Device Identifier Shelf Expiration Date Model / Serial / Lot On-Q-ityumSimplyCast Microvention Hydrosoft 3d Implanted:Qty: 1 on 08/16/2018 by Aime Casas MD at OR [facility] N/A: Head [employer] : INTERVENTIONA 07/05/2023 [id number] / [id number] / [id number] Hd Offset Hum 46x16 - [id number] Implanted:Qty: 1 on 09/28/2020 by Teresa Rehman, at OR [facility] Left: Shoulder [employer] SURGICAL 06/17/2026 [id number] documented as of this encounter Visit Diagnoses Diagnosis Hypertensive heart and kidney disease with chronic diastolic congestive heart failure and stage 3b chronic kidney disease (HCC) Chronic kidney disease, stage 3b (HCC) Cervical radicular pain Brachial neuritis or radiculitis [...] and were consensually agreed upon. Care Teams Rib Trim Separator Relationship Specialty Start Date End Date March, Sotero Sutton MD [address] [place] [address] PCP - General Family Medicine 12/07/22 documented as of this encounter
--- OUTSIDE RECORDS SUMMARY | 2023-11-15 04:21 | External Medical Summary | Summary of Care ---
Author Name Unknown Organization [facility] Address [address] [facility] [place] [address] Phone [phone] Care Team Providers Care Lead Systems Architect Name Role Phone Sotero Pizano MD Primary Care Provider [phone] Reason for Visit * Reason Onset Date Comments Appointment Canceled 10/24/2023 Encounter Details Date Type Department Care Team ([facility] st Contact Info) Description 10/24/2023 Telephone [facility] [place], [facility] [address] [place] [address] [facility], Nurse [facility] [address] [place] [address] Appointment Canceled Allergies Active Allergy Reactions Criticality Noted Date [...] as of this encounter (statuses as of 10/24/2023) Medications Medication Sig Dispensed Refills Start Date End Date Status CPAP 16 % every night at bedtime. 0 Active Compressor NebulizerIndication s:Chronic bronchitis with wheezing (HCC) Inhale via nebulizer . Use as directed. 1 Each 1 02/24/2022 Active Vitamin D (Ergocalciferol) 1.25 MG (93558 UT) Oral Capsule TAKE ONE CAPSULE BY [...] mouth every evening. 90 Capsule 3 07/29/2023 Active Losartan Potassium 25 MG [...] as of this encounter (statuses as of 10/24/2023) Active Problems Problem Noted Date Diagnosed Date [...] as of this encounter (statuses as of 10/24/2023) Resolved Problems Problem Noted Date Diagnosed Date [...] as of this encounter (statuses as of 10/24/2023) Immunizations Name Administration Dates Next Due COVID-19 mRNA, LNP-s, No Pre serve, 2-Dose Series ([employer]) 02/17/2021,01/27/2021 Pneumococcal Polysaccharide PPV23 (Pneumovax) Seasonal Influenza, [...] encounter Miscellaneous Notes * Telephone Encounter - Sheri Taylor RN - 10/24/2023 11:29 AM EST Patient calling to cancel tomorrow's home visit with JEREMY Bledsoe. She has an PCP appt tomorrow. Callher after the holidays to reschedule Routed to JEREMY Hummel. 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 [phone] documented in this encounter Plan of Treatment Upcoming Encounters Date Type Department Care Team (Late st Contact Info) Description 10/25/2023 2:00 PM EST Office Visit [facility] [address] [facility] [address] Elpidio Starkey MD [address] [place] [address] 11/01/2023 7:00 AM EST Appointment MRI, [place] [address] [place] [address] 11/01/2023 7:45 AM EST Hospital Encounter MRI, [place] [address] [place] [address] 11/01/2023 1:30 PM EST Hospital Encounter [place] [facility], OPERATING ROOM [facility], [facility] [address] [place] [address] c, In And Out Surgery [address] [facility] [place] [address] 11/01/2023 1:30 PM EST - 11/01/2023 3:40 PM EST Surgery OR [facility], OPERATING ROOM [facility], [facility] [address] [place] [address] c, In And Out Surgery [address] [place] [address] ANESTHESIA FOR NON-INVASIVE IMAGING (MRI OR CT) 11/07/2023 11:25 AM EST Office Visit Interventional Pain Center, [facility] [address] [place] [address] Satish Anthony DO [address] [place] [phone] 11/07/2023 12:30 PM EST Telemedicine Neurosurgery, [place] [address] [place] [address] Aime Casas MD [address] [facility] [place] [address] 11/23/2023 2:40 PM EST Office Visit [facility] [address] [place] [place] [phone] Sotero Pizano MD [address] [place] [address] 11/27/2023 1:30 PM EST Office Visit Neurology [facility] [address] [facility] [address] Vernell Kimball PA-C [address] [place] [address] 12/10/2023 3:30 PM EST Nurse Only Ancillary Department, [place] [address] [facility], [place] [address] [place], Nurse [facility] [address] [facility], [place] [address] 12/19/2023 11:00 AM EST Office Visit Cardiology, [facility] [address] [facility] [place] [address] Amaya Singleton PA-C [address] [facility] [place] [address] 04/08/2024 3:15 PM EDT Office Visit Hematology/Oncolog y [facility] [address] [place] [address] Mario Kong MD [address] [place] [address] 06/30/2024 1:30 PM EDT Imaging Radiology [facility]st [facility] [address] [facility] [place] [address] 09/18/2024 3:00 PM EST Office Visit Sleep Disorders Ctr [facility] 132 [facility] [place] [phone] Lakshmi Rausch, [address] [facility] [place] [address] Scheduled Procedures Name Priority Associated Diagnoses Date/Ti [...] Screening 12/07/2023 12/07/2022 CKD PHOS USE SMARTSET 07900 03/16/202403/05, 03/29/2022, 05/13/2021, Additional history exists GFR 03/20/2024 09/20/2023, 06/05, 04/06/2023, Additional history exists CKD HGB USE SMARTSET 12845 04/25/202404/25, 04/25/2023, 04/06/2023, Additional history exists Mammogram [...] this encounter Medical Devices Implanted Type Area Security Systems Engineer Device Identifier Shelf Expiration Date Model / Serial / Lot [id number] Microvention Hydrosoft 3d Implanted:Qty: 1 on 08/16/2018 by Aime Casas MD at OR [facility] N/A: Head [employer] : INTERVENTIONA 07/05/2023 [id number] / [id number] / [id number] Hd Offset Hum 46x16 - [id number] Implanted:Qty: 1 on 09/28/2020 by Teresa Rehman DO at OR [facility] Left: Shoulder [employer] SURGICAL 06/17/2026 [id number] documented as of this encounter Advance Directives [...] and were consensually agreed upon. Care Teams Lead Systems Architect Relationship Specialty Start Date End Date March, Sotero Sutton MD [address] [place] [address] PCP - General Family Medicine 12/07/22 documented as of this encounter
--- OUTSIDE RECORDS SUMMARY | 2023-11-15 04:21 | External Medical Summary | Summary of Care ---
Author Name Unknown Organization [facility] Address [address] [place] [address] Phone [phone] Care Team Providers Care Celery Stripper Name Role Phone Sotero Pizano MD Primary Care Provider [phone] Reason for Visit * Reason Comments eRx-Medication Refill Encounter Details Date Type Department Care Team (Late st Contact Info) Description 10/23/2023 Refill [facility] [address] [place] [address] Abby Shipman, [address] [place] [address] Allergies Active Allergy Reactions Criticality Noted Date [...] 02/24/2022 Active Vitamin D (Ergocalciferol) 1.25 MG (18090 UT) Oral Capsule TAKE ONE CAPSULE BY [...] mRNA, LNP-s, No Pre serve, 2-Dose Series ([employer]) 02/17/2021,01/27/2021 Pneumococcal Polysaccharide PPV23 (Pneumovax) Seasonal Influenza, [...] encounter Miscellaneous Notes * Telephone Encounter - Jose Lindsay RPh - 10/24/2023 9:27 AM EST Refused Prescriptions: Disp Refills Atorvastatin Calcium 10 MG Oral Tablet (Li*90 Tab*0 Sig: TAKE 1TABLET BY MOUTH ONCE DAILYRefused By: JOSE LINDSAY for Refusal: Duplicate Request----- documented in this encounter Plan of Treatment Upcoming Encounters Date Type Department Care Team (Late st Contact Info) Description 10/25/2023 2:00 PM EST Office Visit [place] [id number] [facility] [place] [address] Elpidio Starkey MD [address] [place] [address] 10/25/2023 4:00 PM EST [facility] Visit [facility] [place], [facility] [address] [place] [address] Ladi Joseph RN [address] [place] [address] 11/01/2023 7:00 AM EST Appointment MRI, [facility] [address] [place] [address] 11/01/2023 7:45 AM EST Hospital Encounter MRI, [place] [address] [place] [address] 11/01/2023 1:30 PM EST Hospital Encounter [place] [facility] [address] [place] [address] [facility], In And Out Surgery [address] [place] [address] 11/01/2023 1:30 PM EST - 11/01/2023 3:40 PM EST Surgery [place] [facility]OM [facility] [address] [place] [address] [facility], In And Out Surgery [address] [place] [address] ANESTHESIA FOR NON-INVASIVE IMAGING (MRI OR CT) 11/07/2023 11:25 AM EST Office Visit Interventional Pain Center, [facility] [address] [place] [address] Satish Anthony DO [address] [place] [phone] 11/07/2023 12:30 PM EST Telemedicine Neurosurgery, [place] [address] [place] [address] Aime Casas MD [address] [place] [address] 11/23/2023 2:40 PM EST Office Visit Family Practice, [place] [address] [facility], [place] [phone] MarchSotero MD [address] [place] [address] 11/27/2023 1:30 PM EST Office Visit Neurology [facility] [address] [facility] [place] [address] Vernell Kimball PAEdie [address] [place] [address] 12/10/2023 3:30 PM EST Nurse Only Ancillary Department, [place] [address] [facility] [place] [address] [place], Nurse Annual [facility] [address] [place] [address] 12/19/2023 11:00 AM EST Office Visit Cardiology, [facility] [address] [facility] [place] [address] Amaya Singleton PAEdie [address] [place] [address] 04/08/2024 3:15 PM EDT Office Visit Hematology/Oncolog y [facility] [address] [facility] [place] [address] Mario Kong MD [address] [facility] [place] [address] 06/30/2024 1:30 PM EDT Imaging Radiology [facility] 1st [facility] [address] [facility] [place] [address] 09/18/2024 3:00 PM EST Office Visit [facility] Disorders Ctr [facility] [address] [facility] [place] [phone] Lakshmi Rausch, DO [address] [place] [address] Scheduled Procedures Name Priority Associated Diagnoses Date/Ti [...] Screening 12/07/2023 12/07/2022 CKD PHOS USE SMARTSET 94545 03/16/202403/05, 03/29/2022, 05/13/2021, Additional history exists GFR 03/20/2024 09/20/2023, 06/05, 04/06/2023, Additional history exists CKD HGB USE SMARTSET 86216 04/25/202404/25, 04/25/2023, 04/06/2023, Additional history exists Mammogram [...] this encounter Medical Devices Implanted Type Area Integrity Analyst Device Identifier Shelf Expiration Date Model / Serial / Lot Ter[employer] Microvention Hydrosoft 3d Implanted:Qty: 1 on 08/16/2018 by Aime Casas MD [place] [facility] [place]: Head [employer] : INTERVENTIONA 07/05/2023 0810-8964 / [id number] / [id number] Hd Offset Hum 46x16 - [id number] Implanted:Qty: 1 on 09/28/2020 by Teresa Rehman DO at OR [facility] Left: Shoulder [employer] SURGICAL 06/17/2026 [id number] / / [id number] documented as of this encounter Advance Directives [...] and were consensually agreed upon. Care Teams Celery Stripper Relationship Specialty Start Date End Date March, Sotero Sutton MD [address] [place] [address] PCP - General Family Medicine 12/07/22 documented as of this encounter
--- OUTSIDE RECORDS SUMMARY | 2023-11-15 04:22 | External Medical Summary | Summary of Care ---
Author Name Unknown Organization [facility] Address [address] [place] [address] Phone [phone] Care Team Providers Care Security Representative Name Role Phone Sotero Pizano MD Primary Care Provider [phone] Encounter Details Date Type Department Care Team (Late st Contact Info) Description 09/18/2023 Telephone Pulmonary Medicine, [facility] [address] [place] [phone] Lakshmi Rausch, [address] [place] [address] Allergies Active Allergy Reactions Criticality Noted Date [...] as of this encounter (statuses as of 09/18/2023) Medications Medication Sig Dispensed Refills Start Date End Date Status CPAP 16 % every night at bedtime. 0 Active Compressor NebulizerIndication s:Chronic bronchitis with wheezing (HCC) Inhale via nebulizer . Use as directed. 1 Each 1 02/24/2022 Active Vitamin D (Ergocalciferol) 1.25 MG (79014 UT) Oral Capsule TAKE ONE CAPSULE BY [...] as of this encounter (statuses as of 09/18/2023) Active Problems Problem Noted Date Diagnosed Date [...] as of this encounter (statuses as of 09/18/2023) Resolved Problems Problem Noted Date Diagnosed Date [...] as of this encounter (statuses as of 09/18/2023) Immunizations Name Administration Dates Next Due COVID-19 mRNA, LNP-s, No Pre serve, 2-Dose Series (Ayudarum) 02/17/2021,01/27/2021 Pneumococcal Polysaccharide PPV23 (Pneumovax) SEASONAL INFLUENZA, [...] the money to buy more. Never true 12/07/19 23 Within the past 12 months, t he food you bought just didn't last and you didn't have money to get more. Never true 12/07/2022 Sex and Gender Information Value Date Recorded [...] encounter Miscellaneous Notes * Telephone Encounter - Leonard Westfall - 09/18/2023 10:13 AM EST Orders in 09/18 supplies [facility] documented in this encounter Plan of Treatment Upcoming Encounters Date Type Department Care Team (Late st Contact Info) Description 09/18/2023 4:00 PM EST Home Visit [facility] [address] [place] [address] Ladi Joseph RN [address] [place] [address] 11/01/2023 7:00 AM EST Appointment [facility] [address] [place] [address] 11/01/2023 7:45 AM EST Hospital Encounter [facility] [address] [place] [address] 11/01/2023 3:20 PM EST Hospital Encounter [facility], OPERATING ROOM [facility], [facility] JON [address] [facility], [place] [address] [facility], In And Out Surgery [address] [place] [facility] [address] 11/01/2023 3:20 PM EST - 11/01/2023 5:55 PM EST Surgery OR [facility], OPERATING ROOM [facility], [facility] [address] [facility] [place], [place] [address] [facility], In And Out Surgery [address] [place] [facility] [address] ANESTHESIA FOR NON-INVASIVE IMAGING (MRI OR CT) 11/07/2023 11:25 AM EST Office Visit Interventional Pain Center, [facility] [address] [place] [address] Satish Anthony DO [address] [place] [phone] 11/07/2023 12:30 PM EST Telemedicine Neurosurgery, [place] [address] [facility] [place] [address] Aime Casas MD [address] [place] [address] 11/23/2023 2:40 PM EST Office Visit Family [facility], [address] [phone] Sotero Pizano MD [address] [place] [address] 11/27/2023 1:30 PM EST Office Visit Neurology [facility] [address] [place] [address] Vernell Kimball PA-C [address] [place] [address] 12/10/2023 3:30 PM EST Nurse Only Ancillary Department, [address] [address] [place], Nurse [facility] [address] [facility] [address] 12/19/2023 11:00 AM EST Office Visit Cardiology, [facility] [address] [facility] [place] [address] Amaya Singleton, JEEVAN [address] [facility] [place] [address] 04/08/2024 3:15 PM EDT Office Visit Hematology/Oncolog y [facility] [address] [place] [address] Mario Kong MD [address] [place] [address] 06/30/2024 1:30 PM EDT Imaging Radiology [facility] 132 [facility] [place] [address] 09/18/2024 3:00 PM EST Office Visit Sleep Disorders [facility] 132 [facility] [place] [phone] Lakshmi Rausch DO 132 [facility] [place] [address] Scheduled Procedures Name Priority Associated Diagnoses Date/Ti [...] Additional history exists CKD PHOS USE SMARTSET 05436 03/16/202403/05, 03/29/2022, 05/13/2021, Additional history exists CKD HGB USE SMARTSET 43681 04/25/202404/25, 04/25/2023, 04/06/2023, Additional history exists Mammogram [...] this encounter Medical Devices Implanted Type Area Face Hardener Device Identifier Shelf Expiration Date Model / Serial / Lot [employer] Microvention Hydrosoft 3d Implanted:Qty: 1 on 08/16/2018 by Aime Casas MD at OR [facility] N/A: Head [employer] : INTERVENTIONA 07/05/2023 [id number] / [id number] / [id number] Hd Offset Hum 46x16 - [id number] Implanted:Qty: 1 on 09/28/2020 by Teresa Rehman DO at OR [facility] Left: Shoulder [employer] SURGICAL 06/17/2026 [id number] / [id number] documented as of this encounter Advance Directives [...] and were consensually agreed upon. Care Teams Security Representative Relationship Specialty Start Date End Date March, Sotero Sutton MD [address] [place] [address] PCP - General Family Medicine 12/07/22 documented as of this encounter
--- OUTSIDE RECORDS SUMMARY | 2023-11-15 04:22 | External Medical Summary | Summary of Care ---
Author Name Unknown Organization [facility] Address [address] [place] [address] Phone [phone] Care Team Providers Care Personal Development Educator Name Role Phone Sotero Pizano MD Primary Care Provider [phone] Reason for Visit * Reason Onset Date Comments Information 09/04/2023 Status Check 09/04/2023 Encounter Details Date Type Department Care Team ([facility] st Contact Info) Description 09/04/2023 Telephone [facility] [place] [place] [address] [place] [address] Services, Scheduling [address] [place] [address] Information (///); Status Check Allergies Active Allergy Reactions Criticality Noted Date Comments Duloxetine Hcl Nausea/vomiting,Rash 01/23/2019 Hydrochlorothiazide W/Triamterene Nausea/vomiting [...] as of this encounter (statuses as of 09/06/2023) Medications Medication Sig Dispensed Refills Start Date End Date Status CPAP 16 % every night at bedtime. 0 Active Compressor NebulizerIndication s:Chronic bronchitis with wheezing (HCC) Inhale via nebulizer . Use as directed. 1 Each 1 02/24/2022 Active Vitamin D (Ergocalciferol) 1.25 MG (87338 UT) Oral Capsule TAKE ONE CAPSULE BY [...] to MRI 1 Tablet 0 08/14/2023 Active rOPINIRole HCl 2 MG Oral Tablet (Requip) TAKE 1 TABLET BY MOUTH THREE TIMES DAILY WITH FOOD every morning, at noon, and before bedtime 90 Tablet 0 08/20/2023 Active documented as of this encounter (statuses as of 09/06/2023) Active Problems Problem Noted Date Diagnosed Date [...] as of this encounter (statuses as of 09/06/2023) Resolved Problems Problem Noted Date Diagnosed Date [...] as of this encounter (statuses as of 09/06/2023) Immunizations Name Administration Dates Next Due COVID-19 mRNA, LNP-s, No Pre serve, 2-Dose Series ([employer]) 02/17/2021,01/27/2021 Pneumococcal Polysaccharide PPV23 (Pneumovax) SEASONAL INFLUENZA, PF, 6 M & Above, IM , (FLULAVAL or FLUZONE) 07/29/2020 Seasonal Influenza, Quadrivalent Hd (Fluzone Hd) 09/08/2021 TD - Tetanus/Diptheria (ADULT) 11/05/1985 TDAP (age 11 and older)(Adacel) 08/11/2008 documented [...] or making decisions? (5 years old or older No 08/16/2018 documented as of this encounter Miscellaneous Notes * Telephone Encounter - Tanesha Machuca LPN - 09/06/2023 9:15 AM EDT See original note from this thread. Order was submitted through [facility] to be sent to [facility] home care * Telephone Encounter - Sotero Pizano MD - 09/05/2023 7:23 PM EDT Appears nocturnal pulse ox DME order was placed 08/21. Can this be sent to [facility]? Sotero Pizano MD * Telephone Encounter - Suzette Felder CCMA - 09/05/2023 6:14 PM EDT Please advise as below. Thank you. * Telephone Encounter - Giselle Lopez CRNP - 09/05/2023 5:00 PM EDT Please see phone note from 08/21--nocturnal pulse ox done and she was requesting order be sent to [facility] scheduling, can you please follow up? * Telephone Encounter - Lakshmi Rausch DO - 09/05/2023 4:34 PM EDT Sleep Medicine has not seen her in over a year, so she would need an updated appt prior to our office ordering oxygen and/or nocturnal oximetry. It looks like a different provider ([facility], maybe?) had ordered nocturnal oximetry testing in the past couple months, so this message may have been intended for that provider... thus, alsorouting to the provider who had ordered the more recent nocturnal oximetry. * Telephone Encounter - Cecilia Aguilar CPhT - 09/05/2023 10:40 AM EDT Pt calling to check on status of an order to be sent to [facility] for 02. Caller can be reached at [phone]. Thank you, Bonnie Aguilar Senior Developer [facility] (Formerly [facility]) 09/05/2023,10:40 AM * Telephone Encounter - Josefina Pizano OSA - 09/04/2023 9:33 AM EDT Request to send order for O2 and Noc Ox [facility] Ref[facility] [id number] documented in this encounter Plan of Treatment Upcoming Encounters Date Type Department Care Team (Late st Contact Info) Description 09/18/2023 4:00 PM EST Home Visit [facility] at [facility] [address] [place] [address] Ladi Joseph RN [address] [place] [address] 11/01/2023 7:00 AM EST Appointment MRI, [place] [address] [facility] [place] [address] 11/01/2023 7:45 AM EST Appointment MRI, [place] [address] [facility] [place] [address] 11/01/2023 3:20 PM EST Hospital Encounter [facility], [facility]ATING [facility]OM [facility], [facility] [address] [place] [address] [facility], In And Out Surgery [address] [facility] [place] [address] 11/01/2023 3:20 PM EST - 11/01/2023 5:55 PM EST Surgery [facility], OPERATING ROOM [facility], [facility] [address] [place] [address] [facility], In And Out Surgery [address] [facility] [place] [address] ANESTHESIA FOR NON-INVASIVE IMAGING (MRI OR CT) 11/07/2023 11:25 AM EST Office Visit Interventional Pain Center, [facility] [address] [place] [address] Satish Anthony DO [address] [place] [address] 11/07/2023 12:30 PM EST Telemedicine Neurosurgery, [place] [address] [place] [address] Aime Casas MD [address] [place] [address] 11/23/2023 2:40 PM EST Office Visit [address] [phone] Sotero Pizano MD [address] [place] [facility] [place] [address] 11/27/2023 1:30 PM EST Office Visit Neurology [facility] 200 [facility] [place] [address] Vernell Kimball PA-C [facility] [place] [address] 12/10/2023 3:30 PM EST Nurse Only Ancillary Department, [place] [address] [facility] [address] [place], Nurse [facility] Well[facility] [address] [facility] [address] 12/19/2023 11:00 AM EST Office Visit Cardiology, [facility] [address] [facility] [place] [address] Amaya Singleton PA-C [address] [facility] [place] [address] 04/08/2024 3:15 PM EDT Office Visit Hematology/Oncolog y [facility] 200 [facility] [place] [address] Mario Kong MD 200 [facility] [place] [address] 06/30/2024 1:30 PM EDT Imaging Radiology [facility] [address] [facility] [place] [address] Scheduled Procedures Name Priority Associated Diagnoses Date/Ti [...] Depression Screening 12/07/2023 12/07/2022 GFR 12/22/2023 06/21/2023, 06/12/2022, 03/21/2023, Additional history exists CKD PHOS USE SMARTSET 50844 03/16/202403/05, 03/29/2022, 05/13/2021, Additional history exists CKD HGB USE SMARTSET 49881 04/25/202404/25, 04/25/2023, 04/06/2023, Additional history exists Mammogram [...] this encounter Medical Devices Implanted Type Area Line Controller Device Identifier Shelf Expiration Date Model / Serial / Lot [employer] Microvention Hydrosoft 3d Implanted:Qty: 1 on 08/16/2018 by Aime Casas MD at OR [facility] N/A: Head [employer] : INTERVENTIONA 07/05/2023 [id number] / [id number] / [id number] Hd Offset Hum 46x16 - [id number] Implanted:Qty: 1 on 09/28/2020 by Teresa Rehman DO at OR [facility] Left: Shoulder [employer] SURGICAL 06/17/2026 [id number] documented as of this encounter Advance Directives [...] and were consensually agreed upon. Care Teams Personal Development Educator Relationship Specialty Start Date End Date March, Sotero Sutton MD [address] [place] [address] PCP - General Family Medicine 12/07/22 documented as of this encounter
--- OUTSIDE RECORDS SUMMARY | 2023-11-15 04:22 | External Medical Summary | Summary of Care ---
Author Name Unknown Organization [facility] Address [address] [place] [address] Phone [phone] Care Team Providers Care Material Handling Technician Name Role Phone Sotero Pizano MD Primary Care Provider [phone] Reason for Visit * Reason Comments [facility]: Maintenance Encounter Details Date Type Department Care Team ([facility] st Contact Info) Description 09/18/2023 4:00 PM EST [facility], [facility] [email or web address] [facility] [place] [address] Ladi Joseph RN [email or web address] [place] [address] Allergies Active Allergy Reactions Criticality Noted Date [...] as of this encounter (statuses as of 09/19/2023) Medications Medication Sig Dispensed Refills Start Date End Date Status CPAP 16 % every night at bedtime. 0 Active Compressor NebulizerIndication s:Chronic bronchitis with wheezing (HCC) Inhale via nebulizer . Use as directed. 1 Each 1 02/24/2022 Active Vitamin D (Ergocalciferol) 1.25 MG (73832 UT) Oral Capsule TAKE ONE CAPSULE BY [...] as of this encounter (statuses as of 09/19/2023) Active Problems Problem Noted Date Diagnosed Date [...] as of this encounter (statuses as of 09/19/2023) Resolved Problems Problem Noted Date Diagnosed Date [...] as of this encounter (statuses as of 09/19/2023) Immunizations Name Administration Dates Next Due COVID-19 mRNA, LNP-s, No Pre serve, 2-Dose Series ([employer]) 02/17/2021,01/27/2021 Pneumococcal Polysaccharide PPV23 (Pneumovax) SEASONAL INFLUENZA, [...] Sign Reading Time Taken Comments Blood Pressure 102/60 09/18/2023 2:50 PM EST Pulse 80 09/18/2023 2:50 PM EST Temperature 36.1 C (96.9 F) 09/18/2023 2:50 PM ES T Respiratory Rate 18 09/18/2023 2:50 PM EST Oxygen Saturation 98% 09/18/2023 2:50 PM EST Inhaled Oxygen Concentration - - Weight 116.8 kg (257 lb 6.4 oz) 09/18/2023 2:50 PM EST Height - - Body Mass Index 42.18 06/10/2023 3:41 PM EDT documented in this encounter Functional Status Functional [...] as of this encounter Progress Notes * Ladi Joseph RN - 09/18/2023 2:39 PM EST Images from the original note were not included. [facility] Pol[facility] Apprentice Monthly Visit Date: 09/18/2023 Time: 2:40 PM Name: Kristen Garcia : 1955 Current Concerns: Pt seen for return RNCM visit She reports she had an error and has been taking Torsemide 40mg twice a day for over a week insteadof 20mg a day (pharmacy supplied 20mg tabs and she used to get 10mg tabs, so continued to take 2 tabs without realizing the change She does have labs coming up Will send to PCP for FYI She is going to have labs done tomorrow and will go back to taking Torsemide 20mg twice a day Pt reports she continues to have issues with anxiety - sister is in hospital with cancer and she has been traveling several times a week to see her and help her with this Physical Exam: BP 102/60 | Pulse 80 | Temp 36.1 C (96.9 F) | Resp 18 | Wt 116.8 kg (257 lb 6.4 oz) | SpO2 98% | BMI 42.18 kg/m | BSA 2.32 m Pain 0 Physical Exam Constitutional: General: She is not in acute distress. Appearance: She is obese. Cardiovascular: Rate and Rhythm: Normal rate and regular rhythm. Pulses: Normal pulses. Heart sounds: Normal heart sounds. Pulmonary: Effort: Pulmonary effort is normal. Breath sounds: Normal breath sounds. Abdominal: Palpations: Abdomen is soft. Musculoskeletal: Right lower leg: Edema (at baseline) present. Left lower leg: Edema (at baseline) present. Skin: General: Skin is warm and dry. Neurological: Mental Status: She is alert and oriented to person, place, and time. Problems/Symptoms: Review of Systems Constitutional: Negative. HENT: Negative. Eyes: Negative. Respiratory: Positive for shortness of breath (JONES - at baseline). Cardiovascular: Positive for leg swelling. Gastrointestinal: Negative. Genitourinary: Negative. Musculoskeletal: Positive for arthralgias and back pain. Skin: Negative. Neurological: Positive for dizziness. Psychiatric/Behavioral: The patient is nervous/anxious. Medication Reconciliation: (See medication list) Does patient take medications as ordered: Yes Patient Well Being: PHQ2/9: No questionnaires available. No change in living situation No falls MAHC-10 Completed this Visit: No. Routine visit and No falls since last visit Advanced Care Planning: No documentation, acp on file. Reinforcement/Education: Educated on home safety: Create a fall proof home Clear floors of clutter, loose wires, throw rugs, and cords. Make sure halls, stairways, and entrances are well lit. Install a nightlight in your bedroom, hallway and bathroom. Install grab bars or handrails in the bathroom and on stairs. Use a non-skid tub/shower mat. Avoid climbing on a chair; instead use a step stool with a high handrail. Keep sidewalks and steps in good repair Keep steps and sidewalks free of snow and ice. Using aids to support and prevent falls If you have poor balance or have fallen in the past, consider additional support such as a cane or walker. Use a cane with good support and that is the proper length for you. Use a walker if a cane doesnt provide enough support. Avoid medications that increase the risk of falling by causing dizziness, change in sensation or slowed reflexes. Certain medicines may cause falls - blood pressure pills, heart medicines, water pills, or sleepingpills. Be sure to understand each medicine that you are taking and any side effects that may occur. Improve your balance and flexibility with muscle strengthening exercises. Ask your health care provider for some exercises that will be right for you. Reviewed HF symptom monitoring: -Weigh self daily in am, post-void and record -Do not add salt to food, avoid foods high in sodium -Limit fluids to 2 liters per day -Report the following: ->2 lb weight gain in one day or 5 lbs in a week to PCP -increased edema in feet, abdomen or hands -increased SOB and cough, especially if at night -increased fatigue or vertigo Reinforced safety education and fall prevention. and Reinforced medication regimen. Timing., Dosing., and Purspose. Treatment/Plan: Continue meds as prescribed Duoneb qid prn proventil inhaler prn O2 on at bedtime Elevate LE as much as possible Weigh self daily in am via [facility] Low Na diet Add senna 8.6mg at least daily for constipation DTP on file per cardiology Home Interventions Provided: Home Intervention: Other; nasiral Consulted PCP/Specialist Reinforced current Plan of Care, including self-management and medication regimen Patient's 'Red Flags': Wt gain of 3 lbs in 24 hrs or 5 lbs in one week SOB with min exertion Increased anxiety Patient Needs to Remember: Call [facility] at with any new or worsening health concerns or problems, red flag symptoms. Referrals Needed: Other none Follow Up: Is there cellular connectivity/connectivity in the home? Yes Does the patient have internet in the home? Yes Patient encouraged to call the intake phone number for all urgent but not emergent issues. Is the patient new to [facility] within the last 30 days? No, Assess appropriateness for upcoming telehealth visits. Cancel telehealth visits & schedule home visit with care steam presser(s)as indicated. Provider is in agreement with Plan of Care: Yes Scheduled to follow up with patient in one month. Ladi Joseph RN 09/18/2023 2:40 PM documented in this encounter Plan of Treatment Upcoming Encounters Date Type Department Care Team (Late st Contact Info) Description 10/25/2023 4:00 PM EST [facility] Visit [facility], [facility] [address] [facility] [place] [address] Ladi Joseph RN 132 [facility] [address] 11/01/2023 7:00 AM EST Appointment [place], [place] [address] [place] [facility] [address] 11/01/2023 7:45 AM EST Hospital Encounter [place], [place] [address] [place] [facility] [place] [address] 11/01/2023 3:20 PM EST Hospital Encounter [place] [facility] [facility] [address] [facility] [place] [address] c, In And Out Surgery [address] [facility] [place] [place] [address] 11/01/2023 3:20 PM EST - 11/01/2023 5:55 PM EST Surgery [place] [facility] [address] [facility] [place] [address] c, In And Out Surgery [address] [facility] [place] [place] [address] ANESTHESIA FOR NON-INVASIVE IMAGING (MRI OR CT) 11/07/2023 11:25 AM EST Office Visit Interventional Pain Center, [facility] [place] [address] Satish Anthony DO [address] [place] [address] 11/07/2023 12:30 PM EST Telemedicine Neurosurgery, [place] [address] [place] [address] Aime Casas MD [address] [place] [address] 11/23/2023 2:40 PM EST Office Visit Family Practice, [place] [address] [place] [phone] Sotero Pizano MD [address] [place] [address] 11/27/2023 1:30 PM EST Office Visit Neurology [facility] 200 [place] [address] Vernell Kimball PA-C [facility] [place] [address] 12/10/2023 3:30 PM EST Nurse Only Ancillary Department, [place] [address] [place] [address] [place], Nurse [facility] [address] [place] [address] 12/19/2023 11:00 AM EST Office Visit Cardiology, [facility] [address] [facility] [place] [address] Amaya Singleton, PA-C 132 [facility] [place] [address] 04/08/2024 3:15 PM EDT Office Visit Hematology/Oncolog y [facility] [address] [place], [place] [address] Mario Kong MD [address] [place] [address] 06/30/2024 1:30 PM EDT Imaging Radiology [address] [facility] [place] [address] 09/18/2024 3:00 PM EST Office Visit [facility] Disorders [facility] [address] [phone] Lakshmi Rausch, [address] [place] [address] Scheduled Procedures Name Priority Associated Diagnoses Date/Ti [...] Additional history exists CKD PHOS USE SMARTSET 17917 03/16/202403/05, 03/29/2022, 05/13/2021, Additional history exists CKD HGB USE SMARTSET 04570 04/25/202404/25, 04/25/2023, 04/06/2023, Additional history exists Mammogram [...] this encounter Medical Devices Implanted Type Area Salvage Worker Device Identifier Shelf Expiration Date Model / Serial / Lot Terumo Microvention Hydrosoft 3d Implanted:Qty: 1 on 08/16/2018 by Aime Casas MD [place] [facility] N/A: Head [employer] : INTERVENTIONA 07/05/2023 [id number] / [id number] / [id number] Hd Offset Hum 46x16 - [id number] Implanted:Qty: 1 on 09/28/2020 by Teresa Rehman DO at OR [facility] Left: Shoulder [employer]O SURGICAL 06/17/2026 520-46-31 6 / / [id number] documented as of this encounter Advance Directives [...] and were consensually agreed upon. Care Teams Material Handling Technician Relationship Specialty Start Date End Date March, Sotero Sutton MD [address] [place] [address] PCP - General Family Medicine 12/07/22 documented as of this encounter
--- OUTSIDE RECORDS SUMMARY | 2023-11-15 04:22 | External Medical Summary | Summary of Care ---
Author Name Unknown Organization [facility] Address [address] [place] [address] Phone [phone] Care Team Providers Care Billing Manager Name Role Phone Sotero Pizano MD Primary Care Provider [phone] Reason for Visit * Reason Onset Date Comments Information 09/04/2023 Status Check 09/04/2023 Encounter Details Date Type Department Care Team ([facility] st Contact Info) Description 09/04/2023 Telephone [facility] [place] [place] [address] [place] [address] Services, Scheduling [address] [place] [address] Information (///); Status Check Allergies Active Allergy [...] as of this encounter (statuses as of 09/10/2023) Medications Medication Sig Dispensed Refills Start Date End Date Status CPAP 16 % every night at bedtime. 0 Active Compressor NebulizerIndication s:Chronic bronchitis with wheezing (HCC) Inhale via nebulizer . Use as directed. 1 Each 1 02/24/2022 Active Vitamin D (Ergocalciferol) 1.25 MG (54200 UT) Oral Capsule TAKE ONE CAPSULE BY [...] as of this encounter (statuses as of 09/10/2023) Active Problems Problem Noted Date Diagnosed Date [...] as of this encounter (statuses as of 09/10/2023) Resolved Problems Problem Noted Date Diagnosed Date [...] as of this encounter (statuses as of 09/10/2023) Immunizations Name Administration Dates Next Due COVID-19 mRNA, LNP-s, No Pre serve, 2-Dose Series ([employer]) 02/17/2021,01/27/2021 Pneumococcal Polysaccharide PPV23 (Pneumovax) SEASONAL INFLUENZA, [...] encounter Miscellaneous Notes * Telephone Encounter - Josefina Pizano OSA - 09/10/2023 1:01 PM EST Response form submitting order for O2 to Keshawn @Josefina Pizano, please note that this order has been canceled as the patient is not eligible for supplies - see -[id number] (Augustina Nichols from [facility] stated "Patient testing was completed on 08/10/23. She does not qualify for oxygen at this time"). Feel free to reach out with questions. Thank you! * Telephone Encounter - Tanesha Machuca LPN - 09/06/2023 9:15 AM EDT See original note from this thread. Order was submitted through [employer] to be sent to [facility] * Telephone Encounter - Sotero Pizano MD - 09/05/2023 7:23 PM EDT Appears nocturnal pulse ox DME order was placed 08/21. Can this be sent to [facility]? Sotero Pizano MD * Telephone Encounter - Suzette Felder CCMA - 09/05/2023 6:14 PM EDT Please advise as below. Thank you. * Telephone Encounter - Giselle Lopez CRNP - 09/05/2023 5:00 PM EDT Please see phone note from 08/21--nocturnal pulse ox done and she was requesting order be sent to [facility]. [facility] scheduling, can you please follow up? * [...] of an order to be sent to [facility] for . Caller can be reached at [phone]. Thank you, Bonnie Aguilar Museum Specialist I [facility] ([facility]) (Formerly Telepharmacy) 09/05/2023,10:40 AM * Telephone Encounter - Josefina Pizano OSA - 09/04/2023 9:33 AM EDT Request to send order for O2 and Noc Ox order to to provide [facility]-sent as follows Referral [id number] documented in this encounter Plan of Treatment Upcoming Encounters Date Type Department Care Team (Late st Contact Info) Description 09/18/2023 4:00 PM EST Home Visit [facility] at [facility] [address] [place] [address] Ladi Joseph RN [address] [place] [address] 11/01/2023 7:00 AM EST Appointment MRI, [place] [address] [place] [address] 11/01/2023 7:45 AM EST Appointment MRI, [place] [address] [place] [address] 11/01/2023 3:20 PM EST Hospital Encounter [facility], OPERATING ROOM [facility] [address] [place] [address] c, In And Out Surgery [address] [place] [address] 11/01/2023 3:20 PM EST - 11/01/2023 5:55 PM EST Surgery [facility], OPERATING ROOM [facility] [address] [place] [address] [facility], In And Out Surgery [address] [place] [address] ANESTHESIA FOR NON-INVASIVE IMAGING (MRI OR CT) 11/07/2023 11:25 AM EST Office Visit Interventional Pain Center, [facility] [address] [place] [address] Satish Anthony DO [address] [place] [address] 11/07/2023 12:30 PM EST Telemedicine Neurosurgery, [place] [address] [place] [address] Aime Casas MD [address] [place], [place] [id number] 11/23/2023 2:40 PM EST Office Visit Family [facility], [place] [address] [place] [address] MarchSotero MD [address] [place] [address] 11/27/2023 1:30 PM EST Office Visit Neurology [facility] [address] [place] [address] Vernell Kimball PA-C 21 [place] [address] 12/10/2023 3:30 PM EST Nurse Only Ancillary Department, [place] [address] [place] [address] [place], Nurse [facility] [address] [place] [address] 12/19/2023 11:00 AM EST Office Visit Cardiology, [facility] [address] [facility] [place] [address] Amaya Singleton, PAJeimyC [address] [place] [address] 04/08/2024 3:15 PM EDT Office Visit Hematology/Oncolog y [facility] [address] [place] [address] Mario Kong MD [address] [place] [address] 06/30/2024 1:30 PM EDT Imaging Radiology [address], [place] [address] [place] [address] Scheduled Procedures Name Priority Associated Diagnoses Date/Ti [...] Additional history exists CKD PHOS USE SMARTSET 27365 03/16/202403/05, 03/29/2022, 05/13/2021, Additional history exists CKD HGB USE SMARTSET 25545 04/25/202404/25, 04/25/2023, 04/06/2023, Additional history exists Mammogram [...] this encounter Medical Devices Implanted Type Area Management Development Specialist Device Identifier Shelf Expiration Date Model / Serial / Lot Ter[employer] Hydrosoft 3d Implanted:Qty: 1 on 08/16/2018 by Aime Casas MD at OR [facility] N/A: Head [employer] : INTER[employer]IONA 07/05/2023 [id number] / [id number] / [id number] Hd Offset Hum 46x16 - [id number] Implanted:Qty: 1 on 09/28/2020 by Teresa Rehman DO at OR [facility] Left: Shoulder [employer]O SURGICAL 06/17/2026 520-46-31 6 / / [id number] documented as of this encounter Advance Directives [...] and were consensually agreed upon. Care Teams Billing Manager Relationship Specialty Start Date End Date March, Sotero Sutton MD [address] [place] [address] PCP - General Family Medicine 12/07/22 documented as of this encounter
--- OUTSIDE RECORDS SUMMARY | 2023-11-15 04:22 | External Medical Summary | Summary of Care ---
Author Name Unknown Organization [facility] Address [address] [place] [address] Phone [phone] Care Team Providers Care Director Drug Name Role Phone Sotero Pizano MD Primary Care Provider [phone] Reason for Visit * Reason Onset Date Comments Information 09/04/2023 Status Check 09/04/2023 Encounter Details Date Type Department Care Team ([facility] st Contact Info) Description 09/04/2023 Telephone [facility] [place], [place] [address] [place] [address] Services, Scheduling [address] [place] [address] Information (///); Status Check Allergies Active Allergy [...] 02/24/2022 Active Vitamin D (Ergocalciferol) 1.25 MG (36042 UT) Oral Capsule TAKE ONE CAPSULE BY [...] mRNA, LNP-s, No Pre serve, 2-Dose Series ([employer]) 02/17/2021,01/27/2021 Pneumococcal Polysaccharide PPV23 (Pneumovax) SEASONAL INFLUENZA, [...] encounter Miscellaneous Notes * Telephone Encounter - Giselle Lopez CRNP - 09/10/2023 1:18 PM EST I called [facility] for additional info. They report she must be <89% for >5 min. She was not--according top test she was <89% 1:52 min. * Telephone Encounter - Josefina Pizano OSA - 09/10/2023 1:01 PM EST Response form submitting order for O2 to Keshawn Pizano, please note that this order has been canceled as the patient is not eligible for supplies - see -[id number] (Augustina Work from [facility] stated "Patient testing was completed on 08/10/23. She does not qualify for oxygen at this time"). Feel free to reach out with questions. Thank you! * Telephone Encounter - Tanesha Machuca LPN - 09/06/2023 9:15 AM EDT See original note from this thread. Order was submitted through [employer] [facility] to [facility] * Telephone Encounter - Sotero [...] was requesting order be sent to [facility]. [facility] scheduling, can you please follow up? * [...] oximetry. * Telephone Encounter - Cecilia [facility] - 09/05/2023 10:40 AM EDT Pt calling to check on status of an order to be sent to [facility] for 02. Caller can be reached at [phone]. Thank you, Bonnie Aguilar Aircraft Maintenance Supervisor I [facility] ([facility]PS) (Formerly Telepharmacy) 09/05/2023,10:40 AM * Telephone Encounter - Josefina Pizano OSA - 09/04/2023 9:33 AM EDT Request to send order for O2 and Noc Ox order to to provide [facility] Referral [id number] documented in this encounter Plan of Treatment Upcoming Encounters Date Type Department Care Team (Late st Contact Info) Description 09/18/2023 4:00 PM EST [facility], [facility] 132 [facility] [place] [address] Ladi Joseph RN 132 [facility] [place] [address] 11/01/2023 7:00 AM EST [facility] [place] [address] 11/01/2023 7:45 AM EST Appointment Claudia [facility] [address] [facility] [place] [address] 11/01/2023 3:20 PM EST Hospital [facility] [address] [place] [address] c, In And Out Surgery [address] [facility] [place] [address] 11/01/2023 3:20 PM EST - 11/01/2023 5:55 PM EST Surgery [facility], [facility]PER[facility] [address] [place] [facility] [place] [address] [facility], In And Out Surgery [address] [place] [address] ANESTHESIA FOR NON-INVASIVE IMAGING (MRI OR CT) 11/07/2023 11:25 AM EST Office Visit Interventional Pain Center, [facility] 132 [facility] [place] [address] Satish Anthony DO 132 [facility] [place] [address] 11/07/2023 12:30 PM EST Telemedicine Neurosurgery, [place] [address] [place] [address] Aime Casas MD [address] [place] [address] 11/23/2023 2:40 PM EST Office Visit Family Practice, [place] [address] [place] [address] Sotero Pizano MD [address] [place] [address] 11/27/2023 1:30 PM EST Office Visit Neurology [facility] 200 [facility] [place] [address] Vernell Kimball PA-C 21 [place] [address] 12/10/2023 3:30 PM EST Nurse Only Ancillary Department, [address] [place] [address] [facility] Nurse [facility] [address] [place] [address] 12/19/2023 11:00 AM EST Office Visit Cardiology, [facility] 132 [facility] [place] [address] Amaya Singleton PA-C [address] [place] [address] 04/08/2024 3:15 PM EDT Office Visit Hematology/Oncolog y [facility] [address] [place] [address] Mario Kong MD [address] [place] [address] 06/30/2024 1:30 PM EDT Imaging Radiology [address] [place] [address] Scheduled Procedures Name Priority Associated Diagnoses Date/Ti [...] Additional history exists CKD PHOS USE SMARTSET 74147 03/16/202403/05, 03/29/2022, 05/13/2021, Additional history exists CKD HGB USE SMARTSET 95610 04/25/202404/25, 04/25/2023, 04/06/2023, Additional history exists Mammogram [...] this encounter Medical Devices Implanted Type Area Lugger Device Identifier Shelf Expiration Date Model / Serial / Lot Ter[employer]o Microvention Hydrosoft 3d Implanted:Qty: 1 on 08/16/2018 by Aime Casas MD at [place] [facility] N/A: Head [employer] : INTER[employer]IONA 07/05/2023 [id number] / [id number] / [id number] Hd Offset Hum 46x16 - [id number] Implanted:Qty: 1 on 09/28/2020 by Teresa Rehman DO at OR [facility] Left: Shoulder DJO SURGICAL 06/17/2026 520-46-31 6 / / [id number] documented as of this encounter Advance Directives [...] were consensually agreed upon. Care Teams Director Drug Relationship Specialty Start Date End Date March, Sotero Sutton MD [address] [place] [address] PCP - General Family Medicine 12/07/22 documented as of this encounter
--- OUTSIDE RECORDS SUMMARY | 2023-11-15 04:22 | External Medical Summary | Summary of Care ---
Author Name Unknown Organization [facility] Address [address] [facility] [place] [address] Phone [phone] Care Team Providers Care Meat Carrier Name Role Phone Sotero Pizano MD Primary Care Provider [phone] Reason for Visit * Reason Onset Date Comments [facility]: Maintenance 09/18/2023 Encounter Details Date Type Department Care Team ([facility] st Contact Info) Description 09/18/2023 Telephone [facility], [facility] [address] [facility] [place] [address] Ladi Joseph, RN [address] [facility] [place] [address] [facility]: Maintenance Allergies Active Allergy Reactions Criticality Noted Date [...] 02/24/2022 Active Vitamin D (Ergocalciferol) 1.25 MG (82188 UT) Oral Capsule TAKE ONE CAPSULE BY [...] mRNA, LNP-s, No Pre serve, 2-Dose Series (Quantuvis) 02/17/2021,01/27/2021 Pneumococcal Polysaccharide PPV23 (Pneumovax) SEASONAL INFLUENZA, [...] encounter Miscellaneous Notes * Telephone Encounter - Sotero Pizano MD - 09/18/2023 5:27 PM EST Noted. Will evaluate if further changes are needed based on results of lab work tomorrow. Sotero Pizano MD * Telephone Encounter - Ladi Joseph RN - 09/18/2023 2:46 PM EST She reports she had an error and has been taking Torsemide 40mg twice a day for over a week insteadof 20mg a day (pharmacy supplied 20mg tabs and she used to get 10mg tabs, so continued to take 2 tabs without realizing the change She does have labs coming up and is going to get them done tomorrow. Wts have been staying stable between 256 and 259 lbs She does report she has had some dizziness the past couple weeks, unknown if related. Vitals have been stable. She is going to get labs drawn tomorrow and go back to taking 20mg twice a day of Torsemide. Please advise if you have any further recommendations documented in this encounter Plan of Treatment Upcoming Encounters Date Type Department Care Team (Late st Contact Info) Description 10/25/2023 4:00 PM EST Home Visit [facility], [facility] [address] [address] Ladi Joseph RN [address] [place] [address] 11/01/2023 7:00 AM EST Appointment MRI, [place] [address] [facility] [place] [address] 11/01/2023 7:45 AM EST Hospital Encounter MRI, [place] [address] [facility] [place] [address] 11/01/2023 3:20 PM EST Hospital Encounter [facility], OPERATING ROOM [facility] [address] [facility] [place] [address] [facility], In And Out Surgery [address] [facility] [place] [address] 11/01/2023 3:20 PM EST - 11/01/2023 5:55 PM EST Surgery OR C, OPERATING ROOM [facility], [facility] [address] [facility] [place] [address] [facility], In And Out Surgery [address] [facility] [place] [address] ANESTHESIA FOR NON-INVASIVE IMAGING (MRI OR CT) 11/07/2023 11:25 AM EST Office Visit Interventional Pain Center, [facility] [address] [address] Satish Anthony DO [address] [address] 11/07/2023 12:30 PM EST Telemedicine Neurosurgery, [place] [address] [place] [address] Aime Casas MD [address] [place] [address] 11/23/2023 2:40 PM EST Office Visit Family Practice, [place] [address] [place] [address] MarchSotero MD [address] [place] [address] 11/27/2023 1:30 PM EST Office Visit Neurology [facility] [address] [facility] [place] [address] Vernell Kimball PAEdie [address] [facility] [place] [address] 12/10/2023 3:30 PM EST Nurse Only Ancillary Department, [place] [address] [place] [address] [place], Nurse [facility] [address] [place] [address] 12/19/2023 11:00 AM EST Office Visit Cardiology, [facility] [address] [facility] [place] [address] Amaya Singleton PAEdie [address] [facility] [place] [address] 04/08/2024 3:15 PM EDT Office Visit Hematology/Oncolog y [facility] [address] [place] [address] Mario Kong MD [address] [place] [address] 06/30/2024 1:30 PM EDT Imaging Radiology [facility] [facility] [address] [facility] [place] [address] 09/18/2024 3:00 PM EST Office Visit Sleep Disorders Ctr [facility] [address] [place] [address] Lakshmi Rausch, [address] [place] [address] Scheduled Procedures Name Priority Associated Diagnoses Date/Ti [...] Additional history exists CKD PHOS USE SMARTSET 77211 03/16/202403/05, 03/29/2022, 05/13/2021, Additional history exists CKD HGB USE SMARTSET 72840 04/25/202404/25, 04/25/2023, 04/06/2023, Additional history exists Mammogram [...] this encounter Medical Devices Implanted Type Area Mercantile Reporter Device Identifier Shelf Expiration Date Model / Serial / Lot Terumo Microvention Hydrosoft 3d Implanted:Qty: 1 on 08/16/2018 by Aime Casas MD at OR [facility] N/A: Head [employer] : INTERVENTIONA 07/05/2023 [id number] / [id number] / [id number] Hd Offset Hum 46x16 - [id number] Implanted:Qty: 1 on 09/28/2020 by Teresa Rehman DO at OR [facility] Left: Shoulder DJO SURGICAL 06/17/2026 520-46-31 6 / / [id number] documented as of this encounter Advance Directives [...] and were consensually agreed upon. Care Teams Meat Carrier Relationship Specialty Start Date End Date March, Sotero [place] MD [address] [facility] [place] [address] PCP - General Family Medicine 12/07/22 documented as of this encounter
--- OUTSIDE RECORDS SUMMARY | 2023-11-15 04:22 | External Medical Summary | Summary of Care ---
Author Name Unknown Organization [facility] Address [address] [place] [address] Phone [phone] Care Team Providers Care Plumber Supervisor Name Role Phone Sotero Pizano MD Primary Care Provider [phone] Reason for Visit * Reason Comments Follow Up Encounter Details Date Type Department Care Team ([facility] st Contact Info) Description 09/18/2023 9:20 AM EST Office Visit [facility] Disorders Ctr [facility] [address] [place] [address] Lakshmi Rausch DO [address] [place] [address] Obstructive sleep apnea* Allergies Active Allergy Reactions Criticality Noted Date [...] 02/24/2022 Active Vitamin D (Ergocalciferol) 1.25 MG (86387 UT) Oral Capsule TAKE ONE CAPSULE BY [...] mRNA, LNP-s, No Pre serve, 2-Dose Series (Electric Objects) 02/17/2021,01/27/2021 Pneumococcal Polysaccharide PPV23 (Pneumovax) SEASONAL INFLUENZA, PF, 6 M & Above, IM , (FLULAVAL or FLUZONE) 07/29/2020 Seasonal Influenza, Quadrivalent Hd (Fluzone Hd) 09/08/2021 TDAP (age 11 and older)(Adacel) 08/11/2008 documented as of this encounter Social History Tobacco Use Types Packs/Day Years Used Date Smoking Tobacco: Former Cigarettes 0.3 25 Q uit: 12/12/2002 Smokeless Tobacco: Never Tobacco Cessation:Counseling Given: Not Answered Comments:was smoking 1/2 pack per day Alcohol Use Standard Drinks/Week Comments [...] Sign Reading Time Taken Comments Blood Pressure 100/60 09/18/2023 9:23 AM EST Pulse 82 09/18/2023 9:23 AM EST Temperature - - Respiratory Rate - - Oxygen Saturation 95% 09/18/2023 9:23 AM EST Inhaled Oxygen Concentration - - Weight 119.3 kg (263 lb) 09/18/2023 9:23 AM EST Height - - Body Mass Index 43.1 06/10/2023 3:41 PM EDT documented in this [...] No 08/16/2018 documented as of this encounter Patient Instructions * Patient Instructions* Lakshmi Rausch, - 09/18/2023 9:47 AM EST For mouth leak with nasal interface: 1) Chin strap -- wraps around the head to hold the chin up 2) Mouth tape -- a strip of tape vertically across the center of your lips is often sufficient 3) SomnoSeal -- a flexible piece of silicone to sit inside the lips to block air leak ([email or web address]) 4) Changing to a full-face or lower-profile/hybrid mask which allows for mouth- breathing with CPAP use documented in this encounter Progress Notes * Lakshmi Rausch DO - 09/18/2023 9:21 AM EST Sleep Medicine Follow-Up HISTORY: Kristen Garcia is a 68 year old female for follow up of severe STEFANY. Split-night PSG 03/15/2015: AHI 95.4, SpO2 kulwinder 78%, time <88% 52 min, titrated to CPAP 15 cwp with residual AHI 10.5 and improvement in oxygenation (SpO2 kulwinder 87%; time <89% 0.7 min). Nocturnal oximetry 12/08/20 on CPAP and RA; SpO2 <= 88% for 20m 36s. Using oxygen 2 L/min via CPAP. Using CPAP 15-20 cmH2O with 2 L/min oxygen. She recently repeated nocturnal oximetry on CPAP & RA, 08/10/23. SpO2 kulwinder 86%, time <= 89% 31 min. Having trouble getting replacement CPAP supplies. Difficulty getting changed to [facility]. Still sleeps better with CPAP. Subjective PAP adherence: good Sleep refreshing on PAP: usually Snoring on PAP: no Daytime sleepiness: no Drowsy driving: none Interface: nasal Mouth leak: no Mask leak: yes, mask is worn out now. Dry nose or dry mouth: yes, dry mouth all through the day. Worse in the morning. Uses Xylimelts, but that seems to be making her mouth sore now. Uses lozenges during the day. Use humidifier? Yes, but has it set at 0 now. Aerophagia: no RLS symptoms: horrible at times; ropinirole helps (managed by PCP). Morning headaches: no Recent weight change: fluctuates with fluid [place] Sleepiness Scale: 0 [place] Sleepiness Scale Question 09/18/2023 9:30 AM EST - Filed by Lien Nur CMA What is the chance you will doze off in the following situation? Sitting and reading No chance of dozing Watching TV No chance of dozing Sitting inactive in a public place, such as a theater or meeting No chance of dozing As a passenger in a car for an hour without a break No chance of dozing Lying down to rest in the afternoon when circumstances permit No chance of dozing When sitting and talking to someone No chance of dozing When sitting quietly after lunch without alcohol No chance of dozing In a car, while stopped for a few minutes in traffic No chance of dozing Score (range: 0 - 24) 0 Travel Screening Question 09/18/2023 9:30 AM EST - Filed by Lien Nur CMA Do you have any of the following new or worsening symptoms? Shortness of breath Have you recently been in contact with someone who was sick? No / Unsure Flu Vaccine Questionnaire Question 09/18/2023 9:30 AM EST - Filed by Lien Nur CMA Get your flu shot at your upcoming appointment. Please select one of the options below. I would like to discuss this with my clinician CPAP Compliance: Report date: 09/15/23 % total days used: 100% % days used > 4 hours: 100% Average hours per day used: 8h 32m Large leak: 5 min/day AHI: 1.1 /hr Mean pressure: 14.9 cmH2O 90%ile pressure: 16.4 cmH2O Pressure settin-20 cmH2O Equipment: DME Provider is [facility] Uses a [employer] (which has been replaced through the recall). Additional changes in health in the interim of care: no Patient Active Problem List Diagnosis Code Hirsutism [...] (severe) obesity due to excess calories (HCC) E66.01 Panic disorder (episodic paroxysmal anxiety) F41.0 Hyperlipidemia E78.5 BMI 40.0-44.9, adult ([facility]) Z68.41 Hypertensive heart disease with diastolic heart failure and stage 3b chronic kidney disease ([facility]) I13.0, I50.30, N18.32 Iron deficiency anemia due to chronic blood loss D50.0 Outpatient Medications Marked as Taking for the 09/18/23 encounter (Office Visit) with Lakshmi Rausch, DO Medication Sig rOPINIRole HCl 2 MG Oral Tablet (Requip) TAKE 1 TABLET BY MOUTH THREE TIMES DAILY WITH FOOD every morning, at noon, and before bedtime Meclizine HCl 12.5 MG Oral Tablet (Antivert) TAKE 1 TABLET BY MOUTH THREE TIMES DAILY NEEDED fordizziness. Ipratropium-Albuterol 0.5-2.5 (3) MG/3ML Inhalation Solution (Duoneb) Inhale 3 mL via nebulizer in the morning and 3 mL at noon and 3 mL in the evening and 3 mL before bedtime. DIURETIC TITRATION PLAN If no improvement on day 3, contact heart failure managing provider. Aspirin 81 MG Oral Tablet Delayed Release (RA Aspirin EC) Take 1 Tablet by mouth in the morning. Atorvastatin Calcium 10 MG Oral Tablet (Lipitor) Take 1 Tablet by mouth in the morning. Docusate Sodium 100 MG Oral Capsule (Colace) Take 1 Capsule by mouth every evening. Losartan Potassium 25 MG Oral Tablet (Cozaar) Take 0.5 Tablets by mouth in the morning. Magnesium Oxide -Mg Supplement 400 (240 Mg) MG Oral Tablet (Mag-Ox) Take 1 Tablet by mouth in the morning. In the morning.. Metoprolol Succinate ER 25 MG Oral Tablet Extended Release 24 Hour (Toprol XL) Take 1 Tablet by mouth in the morning. Torsemide 10 MG Oral Tablet (Demadex) take 2 tablets (20 mg) in the morning and 1 tablet (10 mg) inthe evening traZODone HCl 150 MG Oral Tablet (Desyrel) Take 1 Tablet by mouth at bedtime. Vitamin B-12 1000 MCG Oral Tablet (Cyanocobalamin) Take 1 Tablet by mouth in the morning. oxygen IN GAS Use 2 L/min(Oxygen) as directed at bedtime. Pregabalin 25 MG Oral Capsule (Lyrica) Take 2 capsule in the am, and 2 capsules in pm. Senna 8.6 MG Oral Tablet Take 1 Tablet by mouth in the morning. Vitamin D3 25 MCG (1000 UT) Oral Tablet Chewable Take 2,000 Units by mouth in the morning. Ondansetron HCl 4 MG Oral Tablet (Zofran) TAKE 1 TABLET BY MOUTH EVERY 8 HOURS IF NEEDED FOR NAUSEA Triamcinolone Acetonide 0.5 % External Cream (Aristocort) apply topically to affected area of lowerextremities where redness and itching and tight skin twice a day Proventil HFA 108 (90 Base) MCG/ACT Inhalation Aerosol Solution Inhale 2 Puffs by mouth every 4 hours as needed for Congestion, Cough or Wheezing. Fluticasone Propionate 50 MCG/ACT Nasal Suspension (Flonase) Administer 2 Sprays into nostril in the morning. Vitamin D (Ergocalciferol) 1.25 MG (56446 UT) Oral Capsule TAKE ONE CAPSULE BY MOUTH MONTHLY Compressor Nebulizer Inhale via nebulizer . Use as directed. CPAP 16 % every night at bedtime. PHYSICAL EXAM: Filed Vitals: 09/18/23 0923 BP: 100/60 Pulse: 82 SpO2: 95% Weight: 119.3 kg (263 lb) General: alert, no acute distress Head: NC/AT Lungs: normal respiratory effort Neuro: speech clear and appropriate ASSESSMENT/PLAN: Obstructive sleep apnea - good adherence; encourage continued use of CPAP with all sleep - good efficacy of therapy; adjust PAP to 13-20 cmH2O due to sometimes feeling like she has difficulty getting air back out. Increase EPR to 3. - discussed strategies to address dry mouth (increase humidity, address possible mouth leak, OTC products - she uses Xylimelts) - DME: [facility] - Routine cleaning and change of supplies as needed. - Continue to avoid driving when feeling sleepy/drowsy. Nocturnal hypoxemia - Continue oxygen 2 L/min via CPAP with all sleep. RLS managed by PCP. Pt reports benefit from ropinirole. Had iron infusions earlier this year. Reviewed regular exercise, evening leg stretching. Follow-up with Sleep Medicine in 1 year. Lakshmi Rausch DO documented in this encounter Nursing Notes * Lien Nur, HELP DESK CONSULTANT - 09/18/2023 9:27 AM EST Patient here today for cpap check. Would like to know if there is something for dry mouth that is not over the counter documented in this encounter Plan of Treatment Upcoming Encounters Date Type Department Care Team (Late st Contact Info) Description 09/18/2023 4:00 PM EST [facility] [address] [address] Ladi Joseph RN [address] [place] [address] 11/01/2023 7:00 AM EST Appointment MRI, [place] [address] [facility] [place] [place] [address] 11/01/2023 7:45 AM EST Hospital Encounter MRI, [place] [address] [facility] [place] [address] 11/01/2023 3:20 PM EST Hospital Encounter [facility], OPERATING ROOM [facility] [address] [place] [address] [facility], In And Out Surgery [address] [place] [address] 11/01/2023 3:20 PM EST - 11/01/2023 5:55 PM EST Surgery [place] [facility] [facility]PER[facility] ROOM [facility] [address] [place] [address] [facility]mc, In And Out Surgery [address] [place] [address] ANESTHESIA FOR NON-INVASIVE IMAGING (MRI OR CT) 11/07/2023 11:25 AM EST Office Visit Interventional Pain Center, [facility] [address] [address] Satish Anthony DO [address] [address] 11/07/2023 12:30 PM EST Telemedicine Neurosurgery, [place] [address] [place] [facility] [place] [address] Aime Casas MD [address] [facility] [place] [address] 11/23/2023 2:40 PM EST Office Visit Family Practice, [place] [address] [place] [address] MarchSotero MD [address] [place] [address] 11/27/2023 1:30 PM EST Office Visit Neurology [facility] [address] [place] [address] Vernell Kimball PA-C [address] [facility] [place] [address] 12/10/2023 3:30 PM EST Nurse Only Ancillary Department, [place] [address], [place] [id number] [place], Nurse Annual [facility] [address] [place] [address] 12/19/2023 11:00 AM EST Office Visit Cardiology, [facility] [address] [place] [address] Amaya Singleton PA-C 132 [place] [address] 04/08/2024 3:15 PM EDT Office Visit Hematology/Oncolog y [facility] [address] [place] [address] Mario Kong MD [address] [place] [address] 06/30/2024 1:30 PM EDT Imaging Radiology [facility]st [facility] [address] [facility] [place] [address] 09/18/2024 3:00 PM EST Office Visit Sleep Disorders Ctr [facility] [address] [place] [address] Lakshmi Rausch, [address] [place] [address] Scheduled Procedures Name Priority Associated Diagnoses Date/Ti [...] Additional history exists CKD PHOS USE SMARTSET 71619 03/16/202403/05, 03/29/2022, 05/13/2021, Additional history exists CKD HGB USE SMARTSET 24025 04/25/202404/25, 04/25/2023, 04/06/2023, Additional history exists Mammogram [...] this encounter Medical Devices Implanted Type Area Assistant Press Operator Offset Device Identifier Shelf Expiration Date Model / Serial / Lot Terumo Microvention Hydrosoft 3d Implanted:Qty: 1 on 08/16/2018 by Aime Casas MD [place] [facility] [place]: Head [employer] : INTERVENTIONA 07/05/2023 [id number] / [id number] / [id number] Hd Offset Hum 46x16 - [id number] Implanted:Qty: 1 on 09/28/2020 by Teresa Rehman DO at OR [facility] Left: Shoulder DJO SURGICAL 06/17/2026 520-46-31 6 / [id number] documented as of this encounter Visit Diagnoses Diagnosis Obstructive sleep apnea- Primary Obstructive sleep apnea (adult) (pediatric) Cervical radicular pain Brachial neuritis or radiculitis [...] and were consensually agreed upon. Care Teams Plumber Supervisor Relationship Specialty Start Date End Date March, Sotero Sutton MD [address] [place] [address] PCP - General Family Medicine 12/07/22 documented as of this encounter
--- OUTSIDE RECORDS SUMMARY | 2023-11-15 04:22 | External Medical Summary | Summary of Care ---
Author Name Unknown Organization [facility] Address [address] [place] [address] Phone [phone] Care Team Providers Care Door To Door Fundraising Collector Name Role Phone Sotero Pizano MD Primary Care Provider [phone] Reason for Visit * Reason Onset Date Comments Advice 09/10/2023 Cpap supplies Encounter Details Date Type Department Care Team (Late st Contact Info) Description 09/10/2023 Telephone Sleep Disorders Ctr [facility] [address] [place] [address] Lakshmi Rausch DO [address] [place] [address] Advice (Cpap supplies ) Allergies Active Allergy Reactions Criticality Noted Date [...] as of this encounter (statuses as of 09/12/2023) Medications Medication Sig Dispensed Refills Start Date End Date Status CPAP 16 % every night at bedtime. 0 Active Compressor NebulizerIndication s:Chronic bronchitis with wheezing (HCC) Inhale via nebulizer . Use as directed. 1 Each 1 02/24/2022 Active Vitamin D (Ergocalciferol) 1.25 MG (14230 UT) Oral Capsule TAKE ONE CAPSULE BY [...] as of this encounter (statuses as of 09/12/2023) Active Problems Problem Noted Date Diagnosed Date [...] as of this encounter (statuses as of 09/12/2023) Resolved Problems Problem Noted Date Diagnosed Date [...] as of this encounter (statuses as of 09/12/2023) Immunizations Name Administration Dates Next Due COVID-19 mRNA, LNP-s, No Pre serve, 2-Dose Series (Learnerator) 02/17/2021,01/27/2021 Pneumococcal Polysaccharide PPV23 (Pneumovax) SEASONAL INFLUENZA, [...] encounter Miscellaneous Notes * Telephone Encounter - Eyal Constantino - 09/12/2023 10:18 AM EST Contacted pt and scheduled for September 18 * Telephone Encounter - Lakshmi Rausch DO - 09/10/2023 7:59 PM EST It's been over a year since her last Sleep Med appt, so she first needs a f/u appt. She had been scheduled for 09/03 but canceled, so needs that appt rescheduled, for f/u STEFANY on CPAP ([facility]). * Telephone Encounter - Eyal Constantino - 09/10/2023 11:13 AM EST Josefina from [facility] contacted me about patient wanting CPAP Supplies. They need a order and it sent through [facility]. Please advise. Thank you,. documented in this encounter Plan of Treatment Upcoming Encounters Date Type Department Care Team (Late st Contact Info) Description 09/18/2023 9:20 AM EST Office Visit Sleep Disorders Ctr [facility] [address] [place] [address] Lakshmi Rausch DO [address] [place] [address] 09/18/2023 4:00 PM EST [facility] [address] [place] [address] Ladi Joseph RN [address] [place] [address] 11/01/2023 7:00 AM EST Appointment MRI, [place] [address] [facility] [place] [address] 11/01/2023 7:45 AM EST Appointment MRI, [place] [address] [facility] [place] [address] 11/01/2023 3:20 PM EST Hospital Encounter OR [facility], OPERATING ROOM [facility] [address] [place] [address] c, In And Out Surgery [address] [facility] [place] [address] 11/01/2023 3:20 PM EST - 11/01/2023 5:55 PM EST Surgery OR C, OPERATING ROOM [facility], [facility] [address] [facility] [place] [address] c, In And Out Surgery [address] [facility] [place] [address] ANESTHESIA FOR NON-INVASIVE IMAGING (MRI OR CT) 11/07/2023 11:25 AM EST Office Visit Interventional Pain Center, [facility] [address] [place] [address] Satish Anthony DO [address] [place] [address] 11/07/2023 12:30 PM EST Telemedicine Neurosurgery, [place] [address] [place] [address] Aime Casas MD [address] [place] [address] 11/23/2023 2:40 PM EST Office Visit Family Practice, [place] [address] [place] [address] MarchSotero MD [address] [place] [address] 11/27/2023 1:30 PM EST Office Visit Neurology [facility] [address] [place] [address] Vernell Kimball PA-C [address] [place] [address] 12/10/2023 3:30 PM EST Nurse Only Ancillary Department, [place] [address], [place] [phone] [place], Nurse Annual [facility] [address] [place] [address] 12/19/2023 11:00 AM EST Office Visit Cardiology, [facility] [address] [facility] [place] [address] Amaya Singleton, PAJeimyC [address] [place] [address] 04/08/2024 3:15 PM EDT Office Visit Hematology/Oncolog y [facility] [address] [place] [address] Mario Kong MD 200 [facility] [place] [address] 06/30/2024 1:30 PM EDT Imaging Radiology [address], [place] [address] [place] [address] Scheduled Procedures Name Priority Associated Diagnoses Date/Ti [...] Additional history exists CKD PHOS USE SMARTSET 39068 03/16/202403/05, 03/29/2022, 05/13/2021, Additional history exists CKD HGB USE SMARTSET 96289 04/25/202404/25, 04/25/2023, 04/06/2023, Additional history exists Mammogram [...] this encounter Medical Devices Implanted Type Area Geographic Information System Analyst Device Identifier Shelf Expiration Date Model / Serial / Lot Terumo Microvention Hydrosoft 3d Implanted:Qty: 1 on 08/16/2018 by Aime Casas MD at OR [facility] N/A: Head TER[employer] : INTERVENTIONA 07/05/2023 [id number] / [id number] / [id number] Hd Offset Hum 46x16 - [id number] Implanted:Qty: 1 on 09/28/2020 by Teresa Rehman DO at OR [facility] Left: Shoulder DJO SURGICAL 06/17/2026 520-46-31 6 / / [id number] documented as of this encounter Advance Directives [...] and were consensually agreed upon. Care Teams Door To Door Fundraising Collector Relationship Specialty Start Date End Date March, Sotero Sutton MD [address] [facility] [place] [address] PCP - General Family Medicine 12/07/22 documented as of this encounter
--- OUTSIDE RECORDS SUMMARY | 2023-11-15 04:23 | External Medical Summary | Summary of Care ---
Author Name Unknown Organization [facility] Address [address] [place] [address] Phone [phone] Care Team Providers Care Sandwich And Drink Cart Operator Name Role Phone Sotero Pizano MD Primary Care Provider [phone] Reason for Visit * Reason Onset Date Comments Information 09/04/2023 Status Check 09/04/2023 Encounter Details Date Type Department Care Team ([facility] st Contact Info) Description 09/04/2023 Telephone [facility] [place], [place] [address] [place] [address] Services, Scheduling [address] [place] [address] Information (///); Status Check Allergies Active Allergy [...] as of this encounter (statuses as of 09/05/2023) Medications Medication Sig Dispensed Refills Start Date End Date Status CPAP 16 % every night at bedtime. 0 Active Compressor NebulizerIndication s:Chronic bronchitis with wheezing (HCC) Inhale via nebulizer . Use as directed. 1 Each 1 02/24/2022 Active Vitamin D (Ergocalciferol) 1.25 MG (72098 UT) Oral Capsule TAKE ONE CAPSULE BY [...] as of this encounter (statuses as of 09/05/2023) Active Problems Problem Noted Date Diagnosed Date [...] as of this encounter (statuses as of 09/05/2023) Resolved Problems Problem Noted Date Diagnosed Date [...] as of this encounter (statuses as of 09/05/2023) Immunizations Name Administration Dates Next Due COVID-19 mRNA, LNP-s, No Pre serve, 2-Dose Series (mydeco) 02/17/2021,01/27/2021 Pneumococcal Polysaccharide PPV23 (Pneumovax) SEASONAL INFLUENZA, [...] she was requesting order be sent to [facility]. [facility], can you please follow up? * Telephone [...] of an order to be sent to [facility] for 02. Caller can be reached at [phone]. Thank you, Bonnie Aguilar Tobacco Cutter I Central[facility] Clinical Pharmacy Services (CCPS) (Formerly Telepharmacy) 09/05/2023,10:40 AM * Telephone Encounter - Josefina Pizano OSA - 09/04/2023 9:33 AM EDT Request to send order for O2 and Noc Ox order to to [facility] Referral [id number] documented in this encounter Plan of Treatment Upcoming Encounters Date Type Department Care Team (Late st Contact Info) Description 09/18/2023 4:00 PM EST [facility] 132 [facility] [place] [address] Ladi Joseph RN 132 [facility] [place] [address] 11/01/2023 7:00 AM EST Appointment [facility] [place] [address] [place] [facility] [place] [address] 11/01/2023 7:45 AM EST [facility]ment [facility] [address] [facility] [address] 11/01/2023 3:20 PM EST Hospital Encounter [facility] [address] [facility] [place] [address] [facility], In And Out Surgery [address] [facility] [place] [address] 11/01/2023 3:20 PM EST - 11/01/2023 5:55 PM EST Surgery [facility], OPERATING ROOM [facility], [facility] [address] [facility] [place] [address] [facility], In And Out Surgery [address] [facility] [address] ANESTHESIA FOR NON-INVASIVE IMAGING (MRI OR CT) 11/07/2023 11:25 AM EST Office Visit Interventional Pain Center, [facility] 132 [facility] [place] [address] Satish Anthony DO [facility] [place] [address] 11/07/2023 12:30 PM EST Telemedicine Neurosurgery, [place] [address] [facility] [place] [address] Aime Casas MD [address] [facility] [place] [address] 11/23/2023 2:40 PM EST Office Visit Family Practice, [place] [address] [facility] [address] Sotero Pizano MD [address] [place] [address] 11/27/2023 1:30 PM EST Office Visit Neurology [facility] [address] [facility] [place] [address] Vernell Kimball PA-C 21 [facility] [place] [address] 12/10/2023 3:30 PM EST Nurse Only Ancillary Department, [place] [address] [facility] [place] [address] [place], Nurse [facility] Wellness [address] [facility] [place] [address] 12/19/2023 11:00 AM EST Office Visit Cardiology, [facility] 132 [facility] [place] [address] Amaya Singleton PA-C [address] [place] [address] 04/08/2024 3:15 PM EDT Office Visit Hematology/Oncolog y [facility] [address] [place] [address] Mario Kong MD [address] [place] [address] 06/30/2024 1:30 PM EDT Imaging Radiology [address] [place] [address] Scheduled Procedures Name Priority Associated Diagnoses Date/Ti [...] Additional history exists CKD PHOS USE SMARTSET 43432 03/16/202403/05, 03/29/2022, 05/13/2021, Additional history exists CKD HGB USE SMARTSET 96225 04/25/202404/25, 04/25/2023, 04/06/2023, Additional history exists Mammogram [...] this encounter Medical Devices Implanted Type Area Hemodialysis Rn Device Identifier Shelf Expiration Date Model / Serial / Lot Terumo Microvention Hydrosoft 3d Implanted:Qty: 1 on 08/16/2018 by Aime Casas MD at OR [facility] N/A: Head [employer] : INTERVENTIONA 07/05/2023 [id number] / [id number] / [id number] Hd Offset Hum 46x16 - [id number] Implanted:Qty: 1 on 09/28/2020 by Teresa Rehman DO at OR [facility] Left: Shoulder DJO SURGICAL 06/17/2026 520-46-31 6 / / [id number] documented as of this encounter Advance Directives [...] and were consensually agreed upon. Care Teams Sandwich And Drink Cart Operator Relationship Specialty Start Date End Date March, Sotero Sutton MD [address] [place] [address] PCP - General Family Medicine 12/07/22 documented as of this encounter
--- OUTSIDE RECORDS SUMMARY | 2023-11-15 04:23 | External Medical Summary | Summary of Care ---
Author Name Unknown Organization [facility] Address [address] [place] [address] Phone [phone] Care Team Providers Care Gravity Manager Name Role Phone Sotero Pizano MD Primary Care Provider Reason for Visit * Reason Onset Date Comments Information 09/04/2023 Status Check 09/04/2023 Encounter Details Date Type Department Care Team ([facility] st Contact Info) Description 09/04/2023 Telephone [facility] [place], [place] [address] [place] [address] Services, Scheduling [address] [place] [address] Information (///); Status Check Allergies Active Allergy [...] 02/24/2022 Active Vitamin D (Ergocalciferol) 1.25 MG (35062 UT) Oral Capsule TAKE ONE CAPSULE BY [...] mRNA, LNP-s, No Pre serve, 2-Dose Series (FameBit) 02/17/2021,01/27/2021 Pneumococcal Polysaccharide PPV23 (Pneumovax) SEASONAL INFLUENZA, [...] encounter Miscellaneous Notes * Telephone Encounter - Cecilia Aguilar CPhT - 09/05/2023 10:40 AM EDT Pt calling to check on status of an order to be sent to [place] for 02. Caller can be reached at [phone]. Thank you, Bonnie Aguilar Videotape Sales Representative I Centralized Clinical Pharmacy Services (CCPS) (Formerly Telepharmacy) 09/05/2023,10:40 AM * Telephone Encounter - Josefina Piznao OSA - 09/04/2023 9:33 AM EDT Request to send order for O2 and Noc Ox order to to provide [facility]-sent as follows Referral [id number] documented in this encounter Plan of Treatment Upcoming Encounters Date Type Department Care Team (Late st Contact Info) Description 09/18/2023 4:00 PM EST [facility] [address] [place] [address] Ladi Joseph, RN [address] [place] [address] 11/01/2023 7:00 AM EST Appointment MRI, [place] [address] [facility] [place] [address] 11/01/2023 7:45 AM EST Appointment MRI, [place] [address] [facility] [place] [address] 11/01/2023 3:20 PM EST Hospital Encounter [facility], [facility]ATING [facility]OM [facility], [facility] [address] [place] [address] [facility], In And Out Surgery [address] [facility] [place] [address] 11/01/2023 3:20 PM EST - 11/01/2023 5:55 PM EST Surgery [facility], O[facility]ATING ROOM [facility], [facility] [address] [place] [address] [facility], In And Out Surgery [address] [facility] [place] [address] ANESTHESIA FOR NON-INVASIVE IMAGING (MRI OR CT) 11/07/2023 11:25 AM EST Office Visit Interventional Pain Center, [facility] [address] [place] [address] Satish Anthony DO [address] [place] [address] 11/07/2023 12:30 PM EST Telemedicine Neurosurgery, [place] [address] [place] [address] Aime Casas MD [address] [place] [address] 11/23/2023 2:40 PM EST Office Visit [address] [address] MaySotero MD [address] [place] [facility] [place] [address] 11/27/2023 1:30 PM EST Office Visit Neurology [facility] [address] [place] [address] Vernell Kimball PA-C 21 [place] [address] 12/10/2023 3:30 PM EST Nurse Only Ancillary Department, [place] [address] [facility] [address] [place], Nurse [facility] Wellness [address] [facility] [address] 12/19/2023 11:00 AM EST Office Visit Cardiology, [facility] 132 [facility] [place] [address] Amaya Singleton PA-C 132 [facility] [place] [address] 04/08/2024 3:15 PM EDT Office Visit Hematology/Oncolog y [facility] 200 [facility] [place] [address] Mario Kong MD 200 [facility] [place] [address] 06/30/2024 1:30 PM EDT Imaging Radiology [facility] 1st [facility] 132 [facility] [place] [address] Scheduled Procedures Name Priority Associated Diagnoses Date/Ti [...] Additional history exists CKD PHOS USE SMARTSET 91051 03/16/202403/05, 03/29/2022, 05/13/2021, Additional history exists CKD HGB USE SMARTSET 33133 04/25/202404/25, 04/25/2023, 04/06/2023, Additional history exists Mammogram [...] this encounter Medical Devices Implanted Type Area Real Estate Transaction Coordinator Device Identifier Shelf Expiration Date Model / Serial / Lot Terumo Microvention Hydrosoft 3d Implanted:Qty: 1 on 08/16/2018 by Aime Casas MD at OR [facility] N/A: Head [employer] : INTERVENTIONA 07/05/2023 [id number] / [id number] / [id number] Hd Offset Hum 46x16 - [id number] Implanted:Qty: 1 on 09/28/2020 by Teresa Rehman, DO at OR [facility] Left: Shoulder DJO SURGICAL 06/17/2026 520-46-31 [id number] documented as of this encounter Advance Directives [...] and were consensually agreed upon. Care Teams Gravity Manager Relationship Specialty Start Date End Date March, Sotero Sutton MD [address] [place] [address] PCP - General Family Medicine 12/07/22 documented as of this encounter
--- OUTSIDE RECORDS SUMMARY | 2023-11-15 04:23 | External Medical Summary | Summary of Care ---
Author Name Unknown Organization [facility] Address [address] [place] [address] Phone [phone] Care Team Providers Care Interactive Media Designer Name Role Phone Sotero Pizano MD Primary Care Provider [phone] Reason for Visit * Reason Onset Date Comments Information 09/04/2023 Status Check 09/04/2023 Encounter Details Date Type Department Care Team ([facility] st Contact Info) Description 09/04/2023 Telephone [facility] [place], [place] [address] [place] [address] Services, Scheduling [address] [place] [address] Information (///); Status Check Allergies Active Allergy [...] 02/24/2022 Active Vitamin D (Ergocalciferol) 1.25 MG (57787 UT) Oral Capsule TAKE ONE CAPSULE BY [...] mRNA, LNP-s, No Pre serve, 2-Dose Series (BigMachines) 02/17/2021,01/27/2021 Pneumococcal Polysaccharide PPV23 (Pneumovax) SEASONAL INFLUENZA, [...] encounter Miscellaneous Notes * Telephone Encounter - Lakshmi Rausch DO [...] of an order to be sent to [facility] for 02. Caller can be reached at [phone]. Thank you, Bonnie Aguilar Jewelry Bench Worker I Centralized Clinical Pharmacy Services (CCPS) (Formerly Telepharmacy) 09/05/2023,10:40 AM * Telephone Encounter - Josefina Pizano OSA - 09/04/2023 9:33 AM EDT Request to send order for O2 and Noc Ox order to to provide [facility]-sent as follows Referral [id number] documented in this encounter Plan of Treatment Upcoming Encounters Date Type Department Care Team (Late st Contact Info) Description 09/18/2023 4:00 PM EST Home Visit [facility] [address] [place] [address] Ladi Joseph RN [address] [place] [address] 11/01/2023 7:00 AM EST Appointment MRI, [place] [address] [place] [address] 11/01/2023 7:45 AM EST Appointment MRI, [place] [address] [place] [address] 11/01/2023 3:20 PM EST Hospital Encounter OR [facility], OPERATING ROOM [facility] [address] [place] [address] c, In And Out Surgery [address] [place] [address] 11/01/2023 3:20 PM EST - 11/01/2023 5:55 PM EST Surgery OR [facility], OPERATING ROOM [facility] [address] [place] [address] [facility], In And Out Surgery [address] [place] [address] ANESTHESIA FOR NON-INVASIVE IMAGING (MRI OR CT) 11/07/2023 11:25 AM EST Office Visit Interventional Pain Center, [facility] [address] [place] [address] Satish Anthony DO [address] [place] [address] 11/07/2023 12:30 PM EST Telemedicine Neurosurgery, [place] [address] [place] [address] Aime Casas MD [address] [place] [address] 11/23/2023 2:40 PM EST Office Visit Family Practice, [place] [address] [place] [address] Sotero Pizano MD [address] [place] [address] 11/27/2023 1:30 PM EST Office Visit Neurology [facility] [address] [place] [address] Vernell Kimball PA-C 21 [place] [address] 12/10/2023 3:30 PM EST Nurse Only Ancillary Department, [place] [address], [place] [phone] [place], Nurse Annual Wellness [address] [place] [address] 12/19/2023 11:00 AM EST Office Visit Cardiology, [facility] [address] [facility] [place] [address] Amaya Singleton, PAJeimyC [address] [facility] [place] [address] 04/08/2024 3:15 PM EDT Office Visit Hematology/Oncolog y [facility] [address] [place] [address] Mario Kong MD [address] [facility] [address] [place] [address] 06/30/2024 1:30 PM EDT Imaging Radiology [facility] 1st [facility] [place] [address] [place] [address] Scheduled Procedures Name Priority Associated Diagnoses Date/Ti me ANESTHESIA FOR NON-INVASIVE IMAGING (MRI OR CT) Cervical radicular pain Cerebral aneurysm, nonruptured 11/01/2023 3:20 PM EST Health Maintenance Due Date Last Done Comments Pneumococcal Vaccine: 65+ Years (2 - PCV) 02/24/2023 02/24/2022 Albumin/Creatinine Ratio 06/28/2023 06/28/2022 COVID-19 Vaccine ( - season) 2023 02/17/2021, 01/27/2021 Influenza Vaccine (FLU shot) (#1) 2023 09/08/2021, 07/29/2020 Depression Screening 12/07/2023 12/07/2022 GFR 12/22/2023 06/21/2023, 06/12/2022, 03/21/2023, Additional history exists CKD PHOS USE SMARTSET 65086 03/16/202403/05, 03/29/2022, 05/13/2021, Additional history exists CKD HGB USE SMARTSET 38803 04/25/202404/25, 04/25/2023, 04/06/2023, Additional history exists Mammogram [...] this encounter Medical Devices Implanted Type Area Coal Getter Device Identifier Shelf Expiration Date Model / Serial / Lot Terumo Microvention Hydrosoft 3d Implanted:Qty: 1 on 08/16/2018 by Aime Casas MD at OR [facility] N/A: Head [employer] : INTERVENTIONA 07/05/2023 [id number] / [id number] / [id number] Hd Offset Hum 46x16 - [id number] Implanted:Qty: 1 on 09/28/2020 by Teresa Rehman DO at OR [facility] Left: Shoulder DJO SURGICAL 06/17/2026 520-46-31 6 / / [id number] documented as of this encounter Advance Directives [...] and were consensually agreed upon. Care Teams Interactive Media Designer Relationship Specialty Start Date End Date March, Sotero Sutton MD [address] [place] [address] PCP - General Family Medicine 12/07/22 documented as of this encounter
--- OUTSIDE RECORDS SUMMARY | 2023-11-15 04:23 | External Medical Summary | Summary of Care ---
Author Name Unknown Organization [facility] Address [address] [place] [address] Phone [phone] Care Team Providers Care Director Medical Surgical Name Role Phone Sotero Pizano MD Primary Care Provider [phone] Reason for Visit * Reason Onset Date Comments Information 09/04/2023 Encounter Details Date Type Department Care Team ([facility] st Contact Info) Description 09/04/2023 Telephone [facility], [address] [phone] Services, Scheduling [address] [place] [address] Information (///) Allergies Active Allergy Reactions Criticality Noted Date [...] as of this encounter (statuses as of 09/04/2023) Medications Medication Sig Dispensed Refills Start Date End Date Status CPAP 16 % every night at bedtime. 0 Active Compressor NebulizerIndication s:Chronic bronchitis with wheezing (HCC) Inhale via nebulizer . Use as directed. 1 Each 1 02/24/2022 Active Vitamin D (Ergocalciferol) 1.25 MG (44005 UT) Oral Capsule TAKE ONE CAPSULE BY [...] as of this encounter (statuses as of 09/04/2023) Active Problems Problem Noted Date Diagnosed Date [...] as of this encounter (statuses as of 09/04/2023) Resolved Problems Problem Noted Date Diagnosed Date [...] as of this encounter (statuses as of 09/04/2023) Immunizations Name Administration Dates Next Due COVID-19 mRNA, LNP-s, No Pre serve, 2-Dose Series (Pfizer) 02/17/2021,01/27/2021 Pneumococcal Polysaccharide PPV23 (Pneumovax) SEASONAL INFLUENZA, [...] Noc Ox order to to provide [facility]-sent as follows Referral [id number] documented in this encounter Plan of Treatment Upcoming Encounters Date Type Department Care Team (Late st Contact Info) Description 09/18/2023 4:00 PM EST Home Visit [facility] [address] [place] [address] Ladi Joseph RN [address] [place] [address] 11/01/2023 7:00 AM EST [facility] [place] [address] 11/01/2023 7:45 AM EST Appointment [facility] [address] [place] [address] 11/01/2023 3:20 PM EST Hospital Encounter OR [facility], OPERATING ROOM [facility] [address] [facility] [place], [place] [address] [facility] [address] [facility] [place], [place] [address] 11/01/2023 3:20 PM EST - 11/01/2023 5:55 PM EST Surgery OR [facility], OPERATING ROOM [facility] [address] [facility] [place] [address] [facility] [place] [facility] [address] [facility] [place], [place] [address] ANESTHESIA FOR NON-INVASIVE IMAGING (MRI OR CT) 11/07/2023 11:25 AM EST Office Visit Interventional Pain Center, [facility] [address] [place] [address] Satish Anthony DO [address] [place] [address] 11/07/2023 12:30 PM EST Telemedicine Neurosurgery, [place] [address] [facility] [place] [address] Aime Casas MD [address] [facility] [place] [address] 11/23/2023 2:40 PM EST Office Visit Family [facility], [place] [address] [place] [address] Sotero Pizano MD [address] [place] [address] 11/27/2023 1:30 PM EST Office Visit Neurology [facility] [address] [place] [place] [address] Vernell Kimball PA-C [address] [place] [address] 12/10/2023 3:30 PM EST Nurse Only Ancillary Department, [address] [address] [place], Nurse Annual Wellness [address] [facility] [place] [address] 12/19/2023 11:00 AM EST Office Visit Cardiology, [facility] 132 [facility] [place] [address] Amaya Singleton, JEEVAN 132 [facility] [place] [address] 04/08/2024 3:15 PM EDT Office Visit Hematology/Oncolog y [facility] [address] [place] [address] Mario Kong MD [address] [place] [address] 06/30/2024 1:30 PM EDT Imaging Radiology [facility] 1st [facility] 132 [facility] [place] [address] Scheduled Procedures Name Priority Associated Diagnoses Date/Ti [...] Depression Screening 12/07/2023 12/07/2022 GFR 12/22/2023 06/21/2023, 0612/2022, 03/21/2023, Additional history exists CKD PHOS USE SMARTSET 90289 03/16/2024 0512/2022, 03/29/2022, 05/13/2021, Additional history exists CKD HGB USE SMARTSET 20451 04/25/202404/25, 04/25/2023, 04/06/2023, Additional history exists Mammogram [...] this encounter Medical Devices Implanted Type Area Corduroy Cutting Supervisor Device Identifier Shelf Expiration Date Model / Serial / Lot Terumo Microvention Hydrosoft 3d Implanted:Qty: 1 on 08/16/2018 by Aime Casas MD at OR [facility] N/A: Head [employer] : INTERVENTIONA 07/05/2023 [id number] / [id number] / [id number] Hd Offset Hum 46x16 - [id number] Implanted:Qty: 1 on 09/28/2020 by Teresa Rehman DO at OR [facility] Left: Shoulder DJO SURGICAL 06/17/2026 520-46-31 6 / / [id number] documented as of this encounter Advance Directives [...] were consensually agreed upon. Care Teams Director Medical Surgical Relationship Specialty Start Date End Date March, Sotero Sutton MD [address] [place] [address] PCP - General Family Medicine 12/07/22 documented as of this encounter
--- OUTSIDE RECORDS SUMMARY | 2023-11-15 04:23 | External Medical Summary | Summary of Care ---
Author Name Unknown Organization [facility] Address [address] [place] [address] Phone [phone] Care Team Providers Care Nuclear Medical Technologist Name Role Phone Sotero Pizano MD Primary Care Provider [phone] Reason for Visit * Reason Onset Date Comments [facility]: Maintenance 08/24/2023 Encounter Details Date Type Department Care Team ([facility] st Contact Info) Description 08/24/2023 Telephone [facility], [facility] [address] [facility] [address] Ladi Joseph, RN [address] [place] [address] [facility]: Maintenance Allergies Active Allergy [...] as of this encounter (statuses as of 08/28/2023) Medications Medication Sig Dispensed Refills Start Date End Date Status CPAP 16 % every night at bedtime. 0 Active Compressor NebulizerIndication s:Chronic bronchitis with wheezing (HCC) Inhale via nebulizer . Use as directed. 1 Each 1 02/24/2022 Active Vitamin D (Ergocalciferol) 1.25 MG (78592 UT) Oral Capsule TAKE ONE CAPSULE BY [...] as of this encounter (statuses as of 08/28/2023) Active Problems Problem Noted Date Diagnosed Date [...] as of this encounter (statuses as of 08/28/2023) Resolved Problems Problem Noted Date Diagnosed Date [...] as of this encounter (statuses as of 08/28/2023) Immunizations Name Administration Dates Next Due COVID-19 mRNA, LNP-s, No Pre serve, 2-Dose Series (Zuffle) 02/17/2021,01/27/2021 Pneumococcal Polysaccharide PPV23 (Pneumovax) SEASONAL INFLUENZA, [...] Telephone Encounter - Ladi Joseph RN - 08/28/2023 11:59 AM EDT Pt called and notified. * Telephone Encounter - Sotero Pizano MD - 08/28/2023 9:41 AM EDT BMP order placed. Can be obtained any time this week. Patient has tried hydroxyzine and buspar in the past without significant success. I don't have muchelse to offer that will work in any immediate time frame for anxiety (SSRI will take 12 weeks to get to full strength). Agree that benzodiazepine is not appropriate given significant risks. Sotero Pizano MD * Telephone Encounter - Ladi Joseph RN - 08/24/2023 1:[address] Pizano, I am seeing pt for home visit. She is telling me about her recent anxiety and stress over health and her sister. Her sister has been ill with cancer in [place] and [place] and she has been traveling to see her. She has had some weight gain so is going to start DTP of double torsemide for Today, tomorrow and Sunday. Do you want her to have bmp done next week? If so, can you please order and she will come in to thelab? Also, she has been very stressed and anxious and wondering if there is anything she can get for hernerves. She does not want Lorazepam but is there something else she could try? Or does she need to come in and see you to further discuss this? Please Advise. Thank you! documented in this encounter Plan of Treatment Upcoming Encounters Date Type Department Care Team (Late st Contact Info) Description 09/18/2023 4:00 PM EST Home Visit [facility] [address] [place] [address] Ladi Joseph RN [address] [place] [address] 11/01/2023 7:00 AM EST [facility]ment [facility] [address] [facility] [place] [address] 11/01/2023 7:45 AM EST [facility]ointment [facility] [address] [place] [facility] [place] [address] 11/01/2023 3:20 PM EST Hospital Encounter OR [facility], OPERATING ROOM [facility] 100 [address] [facility] [place] [address] [facility], In And Out Surgery [address] [facility] [place] [address] 11/01/2023 3:20 PM EST - 11/01/2023 5:55 PM EST Surgery OR C, OPERATING ROOM [facility] [address] [facility] [place] [address] c, In And Out Surgery [address] [place] [address] ANESTHESIA FOR NON-INVASIVE IMAGING (MRI OR CT) 11/07/2023 11:25 AM EST Office Visit Interventional Pain Center, [facility] 132 [facility] [place] [address] Satish Anthony DO 132 [facility] [place] [address] 11/07/2023 12:30 PM EST Telemedicine Neurosurgery, [place] [address] [place] [place] [address] Aime Casas MD [address] [place], [place] [address] 11/23/2023 2:40 PM EST Office Visit Family Practice, [address] [address] Sotero Piznao MD [address] [place] [address] 11/27/2023 1:30 PM EST Office Visit Neurology [facility] 200 [facility], [place] [address] Vernell Kimball PA-C [facility] [address] 12/10/2023 3:30 PM EST Nurse Only Ancillary Department, [address] [address] [place], Nurse Annual Wellness [address] [place] [address] 12/19/2023 11:00 AM EST Office Visit Cardiology, [facility] 132 [facility] [place] [address] Amaya Singleton, PAJeimyC 132 [facility] [place] [address] 04/08/2024 3:15 PM EDT Office Visit Hematology/Oncolog y [place] 200 [facility] [place] [address] Mario Kong MD [address] [place] [address] 06/30/2024 1:30 PM EDT Imaging Radiology [facility] 1st [facility] [place] [address] [place] [address] Scheduled Orders Name Type Priority Associated Diagnoses Orde r Schedule BASIC METABOLIC PANEL Lab Routine Chronic kidney disease, stage 3b (HCC) Expected: 08/28/2023 (Approximate), Expires: 08/27/2024 Scheduled Procedures Name Priority Associated Diagnoses Date/Ti me ANESTHESIA FOR NON-INVASIVE IMAGING (MRI OR CT) Cervical radicular pain Cerebral aneurysm, nonruptured 11/01/2023 3:20 PM EST Health Maintenance Due Date Last Done Comments Pneumococcal Vaccine: 65+ Years (2 - PCV) 02/24/2023 02/24/2022 Albumin/Creatinine Ratio 06/28/2023 06/28/2022 COVID-19 Vaccine ( - 2022- season) 2023 02/17/2021, 01/27/2021 Influenza Vaccine (FLU shot) (#1) 2023 09/08/2021, 07/29/2020 Depression Screening 12/07/2023 12/07/2022 GFR 12/22/2023 06/21/2023, 06/12/2022, 03/21/2023, Additional history exists CKD PHOS USE SMARTSET 95141 03/16/202403/05, 03/29/2022, 05/13/2021, Additional history exists CKD HGB USE SMARTSET 49870 04/25/202404/25, 04/25/2023, 04/06/2023, Additional history exists Mammogram [...] this encounter Medical Devices Implanted Type Area Creative Services Director Device Identifier Shelf Expiration Date Model / Serial / Lot Terumo Microvention Hydrosoft 3d Implanted:Qty: 1 on 08/16/2018 by Aime Casas MD at OR [facility] N/A: Head [employer] : INTERVENTIONA 07/05/2023 [id number] / [id number] / [id number] Hd Offset Hum 46x16 - [id number] Implanted:Qty: 1 on 09/28/2020 by Teresa Rehman DO at OR [facility] Left: Shoulder DJO SURGICAL 06/17/2026 520-46-31 [id number] documented as of this encounter Visit Diagnoses Diagnosis Chronic kidney disease, stage 3b (HCC)- Primary Cervical radicular pain Brachial neuritis or radiculitis [...] and were consensually agreed upon. Care Teams Nuclear Medical Technologist Relationship Specialty Start Date End Date Sotero Pizano MD [address] [place] [address] PCP - General Family Medicine 12/07/22 documented as of this encounter
--- OUTSIDE RECORDS SUMMARY | 2023-11-15 04:24 | External Medical Summary | Summary of Care ---
Author Name Unknown Organization [facility] Address [address] [facility] [place] [address] Phone [phone] Care Team Providers Care Polisher Implant Name Role Phone Sotero Pizano MD Primary Care Provider [phone] Reason for Visit * Reason Onset Date Comments [facility]: Maintenance 08/24/2023 Encounter Details Date Type Department Care Team ([facility] st Contact Info) Description 08/24/2023 Telephone [facility], [facility] [address] [employer] [place] [address] Ladi Joseph, RN [address] [place] [address] [facility]: Maintenance Allergies Active Allergy [...] 02/24/2022 Active Vitamin D (Ergocalciferol) 1.25 MG (71345 UT) Oral Capsule TAKE ONE CAPSULE BY [...] mRNA, LNP-s, No Pre serve, 2-Dose Series (Animating Touch) 02/17/2021,01/27/2021 Pneumococcal Polysaccharide PPV23 (Pneumovax) SEASONAL INFLUENZA, [...] sister has been ill with cancer in [place] and [place] and she has been traveling to see [...] Description 09/18/2023 4:00 PM EST Home Visit [facility] 132 [place] [address] Ladi Joseph RN 132 [place] [address] 11/01/2023 7:00 AM EST Appointment MRI, [place] [address] [place] [address] 11/01/2023 7:45 AM EST Appointment [facility] [address] [place] [address] 11/01/2023 3:20 PM EST Hospital Encounter OR [facility], OPERATING ROOM [facility], [facility] [address] [place] [address] [facility], In And Out Surgery [address] [place] [address] 11/01/2023 3:20 PM EST - 11/01/2023 5:55 PM EST Surgery OR [facility], OPERATING ROOM [facility] [address] [place] [address] [facility], In And Out Surgery [address] [place] [address] ANESTHESIA FOR NON-INVASIVE IMAGING (MRI OR CT) 11/07/2023 11:25 AM EST Office Visit Interventional Pain Center, [facility] [address] [place] [address] Satish Anthony DO [address] [place] [address] 11/07/2023 12:30 PM EST Telemedicine Neurosurgery, [place] [address] [place] [address] Aime Casas MD [address] [place] [address] 11/23/2023 2:40 PM EST Office Visit Family Practice, [place] [address] [place] [address] March, Sotero Sutton MD [address] [place] [address] 11/27/2023 1:30 PM EST Office Visit Neurology [facility] 200 [facility] [place] [address] Vernell Kimball PAEdie 21 [facility] [place] [address] 12/10/2023 3:30 PM EST Nurse Only Ancillary Department, [place] [address] [place], [place] [address] [place], Nurse Annual Wellness [address] [place] [address] 12/19/2023 11:00 AM EST Office Visit Cardiology, [facility] [address] [place] [address] Amaya Singleton, PA-C [address] [place] [address] 04/08/2024 3:15 PM EDT Office Visit Hematology/Oncolog y [facility] 200 [facility] [place] [address] Mario Kong MD 200 [facility] [place] [address] 06/30/2024 1:30 PM EDT Imaging Radiology [address], [address] [place] [address] Scheduled Orders Name Type Priority Associated Diagnoses [...] Additional history exists CKD PHOS USE SMARTSET 90832 03/16/202403/05, 03/29/2022, 05/13/2021, Additional history exists CKD HGB USE SMARTSET 13985 04/25/202404/25, 04/25/2023, 04/06/2023, Additional history exists Mammogram [...] this encounter Medical Devices Implanted Type Area Supervisor Special Services Device Identifier Shelf Expiration Date Model / Serial / Lot Terumo Microvention Hydrosoft 3d Implanted:Qty: 1 on 08/16/2018 by Aime Casas MD at OR [facility] N/A: Head [employer] : INTERVENTIONA 07/05/2023 [id number] / [id number] / [id number] Hd Offset Hum 46x16 - [id number] Implanted:Qty: 1 on 09/28/2020 by Teresa Rehman DO at OR [facility] Left: Shoulder DJO SURGICAL 06/17/2026 520-46-31 6 / / [id number] documented as of this encounter Visit Diagnoses [...] and were consensually agreed upon. Care Teams Polisher Implant Relationship Specialty Start Date End Date March, Sotero Sutton MD [address] [place] [address] PCP - General Family Medicine 12/07/22 documented as of this encounter
--- OUTSIDE RECORDS SUMMARY | 2023-11-15 04:24 | External Medical Summary | Summary of Care ---
Author Name Unknown Organization [facility] Address [address] [facility] [place] [address] Phone [phone] Care Team Providers Care Biblical Studies Professor Name Role Phone Sotero Pizano MD Primary Care Provider [phone] Reason for Visit * Reason Onset Date Comments [facility]: Maintenance 08/24/2023 Encounter Details Date Type Department Care Team ([facility] st Contact Info) Description 08/24/2023 Telephone [facility], [facility] [address] [facility] [place] [address] Ladi Joseph, RN [address] [facility] [address] [facility]: Maintenance Allergies Active Allergy [...] 02/24/2022 Active Vitamin D (Ergocalciferol) 1.25 MG (82354 UT) Oral Capsule TAKE ONE CAPSULE BY [...] mRNA, LNP-s, No Pre serve, 2-Dose Series (GeniusMatcher) 02/17/2021,01/27/2021 Pneumococcal Polysaccharide PPV23 (Pneumovax) SEASONAL INFLUENZA, [...] sister has been ill with cancer in [place] and [place] and she has been traveling to see [...] Description 09/18/2023 4:00 PM EST Home Visit [facility] [address] [place] [address] Ladi Joseph RN [address] [place] [address] 11/01/2023 7:00 AM EST Appointment MRI, [place] [address] [place] [address] 11/01/2023 7:45 AM EST Appointment MRIBrian [address] [place] [address] 11/01/2023 3:20 PM EST Hospital Encounter [place] [facility] [address] [place] [address] [facility], In And Out Surgery [address] [place] [address] 11/01/2023 3:20 PM EST - 11/01/2023 5:55 PM EST Surgery OR [facility], OPERATING ROOM [facility] [address] [place] [address] [facility], In And Out Surgery [address] [place] [address] ANESTHESIA FOR NON-INVASIVE IMAGING (MRI OR CT) 11/07/2023 11:25 AM EST Office Visit [facility] Center, [facility] [address] [place] [address] Satish Anthony DO [address] [place] [address] 11/07/2023 12:30 PM EST Telemedicine Neurosurgery, [place] [address] [place] [address] Aime Casas MD [address] [place] [address] 11/23/2023 2:40 PM EST Office Visit Family Practice, [place] [address] [place] [address] March, Sotero Sutton MD [address] [place] [address] 11/27/2023 1:30 PM EST Office Visit Neurology [facility] 200 [facility] [place] [address] Vernell Kimball PAEdie 21 [facility] [place] [address] 12/10/2023 3:30 PM EST Nurse Only Ancillary Department, [place] [address] [place], [place] [address] [place], Nurse Annual Wellness [address] [place] [address] 12/19/2023 11:00 AM EST Office Visit Cardiology, [facility] [address] [place] [address] Amaya Singleton, PA-C [address] [place] [address] 04/08/2024 3:15 PM EDT Office Visit Hematology/Oncolog y [facility] 200 [facility] [place] [address] Mario Kong MD 200 [facility] [place] [address] 06/30/2024 1:30 PM EDT Imaging Radiology [address], [address] [place] [address] Scheduled Orders Name [...] Additional history exists CKD PHOS USE SMARTSET 23443 03/16/202403/05, 03/29/2022, 05/13/2021, Additional history exists CKD HGB USE SMARTSET 97975 04/25/202404/25, 04/25/2023, 04/06/2023, Additional history exists Mammogram [...] this encounter Medical Devices Implanted Type Area Motorized Squad Captain Device Identifier Shelf Expiration Date Model / Serial / Lot Terumo Microvention Hydrosoft 3d Implanted:Qty: 1 on 08/16/2018 by Aime Casas MD at [place] [facility] N/A: Head [employer] : INTERVENTIONA 07/05/2023 [id number] / [id number] / [id number] Hd Offset Hum 46x16 - [id number] Implanted:Qty: 1 on 09/28/2020 by Teresa Rehman DO at OR [facility] Left: Shoulder DJO SURGICAL 06/17/2026 520-46-31 6 / / [id number] documented as of this encounter Visit Diagnoses [...] and were consensually agreed upon. Care Teams Biblical Studies Professor Relationship Specialty Start Date End Date March, Sotero Sutton MD [address] [place] [address] PCP - General Family Medicine 12/07/22 documented as of this encounter
--- OUTSIDE RECORDS SUMMARY | 2023-11-15 04:24 | External Medical Summary | Summary of Care ---
Author Name Unknown Organization [facility] Address [address] [facility] [place] [address] Phone [phone] Care Team Providers Care Health Inspector Food Name Role Phone Sotero Pizano MD Primary Care Provider [phone] Reason for Visit * Reason Onset Date Comments [facility]: Maintenance 08/26/2023 F /u DTP Encounter Details Date Type Department Care Team ([facility] st Contact Info) Description 08/26/2023 11:30 AM EDT Scheduled Telephone [facility], [facility] [address] [place] [address] [facility] 132 [place] [address] Allergies Active Allergy Reactions Criticality Noted Date [...] as of this encounter (statuses as of 08/26/2023) Medications Medication Sig Dispensed Refills Start Date End Date Status CPAP 16 % every night at bedtime. 0 Active Compressor NebulizerIndication s:Chronic bronchitis with wheezing (HCC) Inhale via nebulizer . Use as directed. 1 Each 1 02/24/2022 Active Vitamin D (Ergocalciferol) 1.25 MG (97535 UT) Oral Capsule TAKE ONE CAPSULE BY [...] as of this encounter (statuses as of 08/26/2023) Active Problems Problem Noted Date Diagnosed Date [...] as of this encounter (statuses as of 08/26/2023) Resolved Problems Problem Noted Date Diagnosed Date [...] as of this encounter (statuses as of 08/26/2023) Immunizations Name Administration Dates Next Due COVID-19 mRNA, LNP-s, No Pre serve, 2-Dose Series ([employer]) 02/17/2021,01/27/2021 Pneumococcal Polysaccharide PPV23 (Pneumovax) SEASONAL INFLUENZA, [...] encounter Miscellaneous Notes * Telephone Encounter - Wendy Singh RN - 08/26/2023 3:37 PM EDT Images from the original note were not included. Situation: f/u wt gain, DTP Background: CHF, CKD 3 Doubled torsemide yesterday and day before Per Ladi's note on 08/24, dry wt 254lbs Assessment: Is taking extra torsemide today Continues to have LE edema above baseline but has improved with DTP Breathing at baseline Denies c/o Recommendation: Support socks - reports unable to wear Low sodium diet - reports does follow documented in this encounter Plan of Treatment Upcoming Encounters Date Type Department Care Team (Late st Contact Info) Description 09/03/2023 3:00 PM EDT Office Visit Sleep Disorders Ctr [facility] [address] [place] [address] Lakshmi Rausch, DO [address] [place] [address] 09/18/2023 4:00 PM EST Home Visit [facility], [facility] [address] [place] [address] Ladi Joseph, RN [address] [place] [address] 11/01/2023 7:00 AM EST Appointment MRI, [place] [address] [place] [address] 11/01/2023 7:45 AM EST Appointment MRI, [place] [address] [place] [address] 11/01/2023 3:20 PM EST Hospital Encounter OR [facility], OPERATING ROOM [facility] [address] [facility] [place] [address] Gmc, In And Out Surgery [address] [place] [address] 11/01/2023 3:20 PM EST - 11/01/2023 5:55 PM EST Surgery OR [facility], OPERATING ROOM [facility], [facility] [address] [place] [address] c, In And Out Surgery [address] [place] [address] ANESTHESIA FOR NON-INVASIVE IMAGING (MRI OR CT) 11/07/2023 11:25 AM EST Office Visit Interventional Pain Center, [facility] [address] [place] [address] Satish Anthony DO [address] [place] [address] 11/07/2023 12:30 PM EST Telemedicine Neurosurgery, [place] [address] [place] [facility] [place] [address] Aime Casas MD [address] [place] [address] 11/23/2023 2:40 PM EST Office Visit [facility], [place] [address] [facility] [phone] MarchSotero MD [address] [place] [facility] [place] [address] 11/27/2023 1:30 PM EST Office Visit Neurology [facility] [address] [facility] [place] [address] Vernell Kimball PAEdie [facility] [place] [address] 12/10/2023 3:30 PM EST Nurse Only Ancillary Department, [place] [address] [facility] [address] [place], Nurse [facility] [address] [facility] [address] 12/19/2023 11:00 AM EST Office Visit Cardiology, [facility] 132 [facility] [place] [address] Amaya Singleton PA-C 132 [facility] [place] [address] 04/08/2024 3:15 PM EDT Office Visit Hematology/Oncolog y [facility] [address] [facility] [place] [address] Mario Kong MD [address] [place] [address] 06/30/2024 1:30 PM EDT Imaging Radiology [facility] 1st [facility] [address] [facility] [place] [address] Scheduled Procedures Name Priority Associated Diagnoses Date/Ti [...] Additional history exists CKD PHOS USE SMARTSET 74128 03/16/202403/05, 03/29/2022, 05/13/2021, Additional history exists CKD HGB USE SMARTSET 22805 04/25/202404/25, 04/25/2023, 04/06/2023, Additional history exists Mammogram [...] this encounter Medical Devices Implanted Type Area Intellectual Property Manager Device Identifier Shelf Expiration Date Model / Serial / Lot [employer]oonR[employer] Microvention Hydrosoft 3d Implanted:Qty: 1 on 08/16/2018 by Aime Casas MD at OR [facility] N/A: Head [employer] MEDICAL : INTERVENTIONA 07/05/2023 [id number] / [id number] / [id number] Hd Offset Hum 46x16 - [id number] Implanted:Qty: 1 on 09/28/2020 by Teresa Rehman, at OR [facility] Left: Shoulder DJO SURGICAL 06/17/2026 [id number] documented as of this encounter Advance Directives [...] and were consensually agreed upon. Care Teams Health Inspector Food Relationship Specialty Start Date End Date March, Sotero Sutton MD [address] [place] [address] PCP - General Family Medicine 12/07/22 documented as of this encounter
--- OUTSIDE RECORDS SUMMARY | 2023-11-15 04:24 | External Medical Summary | Summary of Care ---
Author Name Unknown Organization [facility] Address [address] [facility] [place] [address] Phone [phone] Care Team Providers Care Chain Carrier Name Role Phone Sotero Pizano MD Primary Care Provider [phone] Reason for Visit * Reason Comments [facility]: Maintenance Encounter Details Date Type Department Care Team Description 08/24/2023 Home Visit [facility], [facility] [address] [place] [address] Ladi Joseph RN [address] [place] [address] Allergies Active Allergy Reactions Severity Noted Date Comments Duloxetine Hcl Nausea/vomiting,Rash 01/23/2019 Hydrochlorothiazide W/Triamterene Nausea/vomiting 10/07/2009 Cyclobenzaprine Hcl 12/28/2015 rash Hydrocodone Neuro complications (Please comment) 09/14/2020 aggravates RLS Lisinopril Cough 01/13/2011 Omeprazole Other (Please comment) 02/14/2017 Restless legs Oxycodone-Acetaminophen Neuro complicati ons (Please comment) 09/14/2020 aggravates RLS Ropinirole Hcl Tachycardia Medium 03/28/2019 Sulindac 01/29/2017 Hives Adhesive Tape Other (Please comment) 11/27/2014 Non-allergenic tape causes blistering-PLEAS E use paper tape only Tetanus Toxoid Rash 08/20/2008 Acetaminophen 01/11/2017 Restless legs are worse when taking. documented as of this encounter (statuses as of 08/24/2023) Medications Medication Sig Dispensed Refills Start Date End Date Status CPAP 16 % every night at bedtime. 0 Active Compressor NebulizerIndication s:Chronic bronchitis with wheezing (HCC) Inhale via nebulizer . Use as directed. 1 Each 1 02/24/2022 Active Vitamin D (Ergocalciferol) 1.25 MG (24574 UT) Oral Capsule TAKE ONE CAPSULE BY [...] as of this encounter (statuses as of 08/24/2023) Active Problems Problem Noted Date Iron deficiency anemia due to chronic bl ood loss 04/06/2023 Last Assessment & Plan: Has [...] 40.0-44.9, adult 03/16/2023 Panic disorder (episodic paroxysmal anxi ety) 12/11/2022 Hyperlipidemia 12/11/2022 Morbid (severe) obesity due to excess ca lories 11/14/2022 Last Assessment & Plan: BMI 43 255 lbs Chronic kidney disease, stage 3b 022 Overview: Per CKD protocol Lipodermatosclerosis of both lower extre mities 01/28/2021 RLS (restless legs syndrome) 05/15/2019 Nocturnal hypoxemia 05/15/2019 Atherosclerosis of aorta 03/05/2019 Last Assessment & Plan: Noted on previous CT- continues asa daily- + statin - BP controlled Major depressive disorder, single episod e, mild 08/30/2018 Last Assessment & Plan: trazodone 150 mg at bedtime Cerebral aneurysm, nonruptured 8 Paroxysmal atrial fibrillation 7 Last Assessment & Plan: Metoprolol succ 25 [...] CPAP nightly Lymphedema of both lower extremities 04/2015 Nonalcoholic fatty liver disease 015 HTN, goal below 140/90 01/12/2015 Hood angioma 02/17/2014 History of basal cell carcinoma 02/18/20 14 Fibromyalgia 10/24/2012 Respiratory symptoms 03/27/2011 Overview: ICD-10 update of inactive term Aspirin intolerance 04/12/2010 Generalized osteoarthritis 04/29/2009 Hirsutism 12/14/2003 documented as of this encounter (statuses as of 08/24/2023) Resolved Problems Problem Noted Date Resolved Date Anemia due to chronic blood loss 11/16/2020 04/17/2023 Stage 3a chronic kidney disease 09/13/2020 04/20/2022 Overview: Per CKD protocol Body mass index (BMI) of 40.0 to 44.9 in adult 1 01/19/2022 Overview: Per Obesity protocol - Giant cell arteritis 10/03/2019 01/19/2022 PMR (polymyalgia rheumatica) 10/03/2019 Kidney disease, chronic, stage III (GFR 30-59 ml /min) 08/12/2018 09/16/2020 Overview: Per CKD protocol #1 Acute left ankle pain 09/10/2017 07/25/2018 Body mass index (BMI) of 45.0 to 49.9 in adult 1 08/19/2020 Overview: Per Obesity protocol #1 Other seborrheic keratosis 02/17/201407/25 Sebaceous hyperplasia of face 02/17/2014 Milia 02/17/2014 07/25/2018 HTN, goal below 130/80 06/26/2013 5 Heart failure, diastolic, due to HTN 06/26/2013 03/21/2023 Obesities, morbid 03/13/2012 05/10/2017 Obesity, morbid (more than 1 00 lbs over ideal weight or BMI > 40) 02/22/2010 03/13/2012 Overview: ICD-10 update of inactive term Family history of cardiovascular disease 007 05/10/2017 ADVANCE DIRECTIVE INFORMATION 06/03/2007 Overview: No, Advance Directive brochure given to patient at prior appointment. Allergic rhinitis 08/03/2004 05/10/2017 Unspecified viral infection, in conditions classified elsewhere and of unspecified site 08/03/2004 05/10/2017 DYSFUNCT EUSTACHIAN TUBE 08/03/2004 017 Major depressive disorder 12/14/20032020 Overview: More specific dx on PL FAM HX-DIABETES MELLITUS 04/07/2002 017 Family history of other cardiovascular diseases 04/07/2002 08/19/2007 Overview: ICD-10 update of inactive term INTERNAL HEMRRHOID WITH BLEEDING 02/04/2002 05/10/2017 BENIGN SYLVIE SKIN LEG 02/04/2002 05/10/2017 RECTAL BLEEDING 02/04/2002 05/10/2017 SKIN TAGS 02/04/2002 05/10/2017 documented as of this encounter (statuses as of 08/24/2023) Immunizations Name Administration Dates Next Due COVID-19 [...] = 0.6 oz pur e alcohol) rarely Food Insecurity Answer Date Recorded Within the past 12 months, y ou worried that your food would run out before you got money to buy more. Never true 12/07/2022 Within the past 12 months, t he food you bought just didn't last and you didn't have money to get more. Never true 12/07/2022 Sex Assigned at Date Recorded Female 05/24/2022 11:29 AM EDT Job Start Date Occupation Industry Not on file Not on file Not on file documented as of this encounter Last Filed Vital Signs Vital Sign Reading Time Taken Comments Blood Pressure 108/68 08/24/2023 1:12 PM EDT Pulse 70 08/24/2023 1:12 PM EDT Temperature 36.7 C (98 F) 08/24/2023 1:12 PM EDT Respiratory Rate 18 08/24/2023 1:12 PM EDT Oxygen Saturation 99% 08/24/2023 1:12 PM EDT Inhaled Oxygen Concentration - - Weight 117.8 kg (259 lb 12.8 oz) 08/24/2023 1:12 PM EDT Height - - Body Mass Index 42.58 06/10/2023 3:41 PM EDT documented in this [...] Progress Notes * Ladi Joseph RN - 08/24/2023 12:52 PM EDT Images from the original note were not included. [facility] Fire Equipment Inspector Monthly Visit Date: 08/24/2023 Time: 12:52 PM Name: Kristen Garcia : 1955 Current Concerns: Pt seen for return RNCM visit She reports she has been traveling back and forth to help [place] in [place] and has not beeneating right She has been using her nebulizer more Legs more edematous and feel more tight to her Moderate edema of LE's noted, non-pitting - does have lymphedema Feels abdomen in more bloated also Weight has been down to 254 lbs in past and pt feels this is her baseline but since traveling wet up to 260 lbs and has been unable to get it back down She did go ahead and initiate an increase her Torsemide starting today Usually dose is 30mg daily of Torsemide - she is going to double for next 3 days while she is home TE sent to PCP to notify and see he wants BMP done next week. Pt also reporting about being more stressed d/t her sister's health and her own health and needs. Requesting something for anxiety but does not want to take Lorazepam TE sent to PCP for further recommendations. Physical Exam: BP 108/68 | Pulse 70 | Temp 36.7 C (98 F) | Resp 18 | Wt 117.8 kg (259 lb 12.8 oz) | SpO2 99% |BMI 42.58 kg/m | BSA 2.33 m Pain 0 Physical Exam Constitutional: General: She is not in acute distress. Appearance: She is obese. Cardiovascular: Rate and Rhythm: Normal rate and regular rhythm. Pulses: Normal pulses. Heart sounds: Normal heart sounds. Pulmonary: Effort: Pulmonary effort is normal. Breath sounds: Normal breath sounds. Abdominal: General: Bowel sounds are normal. Palpations: Abdomen is soft. Musculoskeletal: Right lower leg: Edema (mod non-pitting) present. Left lower leg: Edema (mod non-pitting) present. Skin: General: Skin is warm and dry. Neurological: Mental Status: She is alert and oriented to person, place, and time. Problems/Symptoms: Review of Systems Constitutional: Positive for fatigue. HENT: Negative. Eyes: Negative. Respiratory: Positive for shortness of breath (JONES). Cardiovascular: Positive for leg swelling. Gastrointestinal: Negative. Genitourinary: Negative. Musculoskeletal: Positive for arthralgias and back pain. Skin: Negative. Psychiatric/Behavioral: The patient is nervous/anxious. Medication Reconciliation: (See medication list) Does patient take medications as ordered: Yes Patient Well Being: PHQ2/9: No questionnaires available. No change in living situation Denies falls [facility] Completed this Visit: No. Routine visit and No falls since last visit Advanced Care Planning: No documentation, acp on file. Reinforcement/Education: Reviewed HF symptom monitoring: -Weigh self daily [...] if at night -increased fatigue or vertigo Educated on home safety: Create a fall [...] exercises that will be right for you. Reinforced safety education and fall prevention. and Reinforced medication regimen. Timing., Dosing., and Purspose. Treatment/Plan: Continue meds as prescribed Duoneb qid prn proventil inhaler prn O2 on at bedtime Elevate LE as much as possible Weigh self daily in am via [facility] Low Na diet Add senna 8.6mg at least daily for constipation DTP on file per cardiology- starting today TE sent to PCP to see if BMP needs drawn next week and if recommends something for anxiety Home Interventions Provided: Home Intervention: Other; eval Consulted PCP/Specialist Reinforced current Plan of Care, including self-management and medication regimen Patient's 'Red Flags': Wt gain of 3 lbs in 24 hrs or 5 lbs in one week SOB with min exertion Increased anxiety Patient Needs to Remember: Call [facility] at with any new or worsening health [...] visits & schedule home visit with care restaurant team member(s)as indicated. Provider is in agreement with Plan of Care: Yes Scheduled to follow up with patient in 24 and 48 hrs. Ladi Joseph RN 08/24/2023 12:52 PM documented in this encounter Plan of Treatment Upcoming Encounters Date Type Specialty Care Team Description 08/25/2023 Scheduled Telephone [facility], Nurse [facility] [address] [place] [address] 08/26/2023 Scheduled Telephone [facility], [facility] [address] [place] [address] 08/27/2023 Office Visit Allergy & Immunology Brennan Wasserman MD [address] [place] [address] 09/03/2023 Office Visit Sleep Disorders Lakshmi Rausch DO [address] [place] [address] 09/18/2023 Home Visit [facility] Ladi Joseph RN [address] [place] [address] 11/01/2023 Appointment Radiology 11/01/2023 Appointment Radiology 11/01/2023 Hospital Encounter Surgery [facility], [facility] [address] [facility] [address] 11/01/2023 Surgery Surgery [facility], In And Out Surgery [address] [place] [address] ANESTHESIA FOR NON-INVASIVE IMAGING (MRI OR CT) 11/07/2023 Office Visit Pain Medicine Satish Anthony DO [address] [place] [phone] 11/07/2023 Telemedicine Neurological Surgery Aime Casas MD [address] [place] [address] 11/23/2023 Office Visit Family Medicine Sotero Pizano MD [address] [place] [address] 11/27/2023 Office Visit Neurology Vernell Kimball PA-C [address] [facility] [place] [address] 12/10/2023 Nurse Only [facility], Nurse [facility] [address] [place] [address] 12/19/2023 Office Visit Cardiology Amaya Singleton PA-C [address] [place] [address] 04/08/2024 Office Visit Hematology Oncology Mario Kong MD [address] [facility] [address] 06/30/2024 Imaging Radiology Scheduled Procedures Name Priority Associated Diagnoses Date/Ti [...] Additional history exists CKD PHOS USE SMARTSET 50486 03/16/202403/05, 03/29/2022, 05/13/2021, Additional history exists CKD HGB USE SMARTSET 93147 04/25/202404/25, 04/25/2023, 04/06/2023, Additional history exists Mammogram [...] this encounter Medical Devices Implanted Type Area Historic Sites Supervisor Device Identifier Shelf Expiration Date Model / Serial / Lot Terumo Microvention Hydrosoft 3d Implanted:Qty: 1 on 08/16/2018 by Aime Casas MD at OR [facility] N/A: Head [employer] : INTERVENTIONA 07/05/2023 [id number] / [id number] / [id number] Hd Offset Hum 46x16 - [id number] Implanted:Qty: 1 on 09/28/2020 by Teresa Rehman DO at OR [facility] Left: Shoulder DJO SURGICAL 06/17/2026 [id number] documented as of this encounter Advance Directives [...] and were consensually agreed upon. Care Teams Chain Carrier Relationship Specialty Start Date End Date March, Sotero Sutton MD [address] [place] [address] PCP - General Family Medicine 12/07/22 documented as of this encounter
--- OUTSIDE RECORDS SUMMARY | 2023-11-15 04:24 | External Medical Summary | Summary of Care ---
Author Name Unknown Organization [facility] Address [address] [place] [facility] [place] [address] Phone [phone] Care Team Providers Care High School History Teacher Name Role Phone Sotero Pizano MD Primary Care Provider [phone] Encounter Details Date Type Department Care Team Description 08/23/2023 Telephone Sleep Disorders Ctr [facility] [address] [place] [address] Lakshmi Rausch, [address] [place] [address] Allergies Active Allergy Reactions Severity Noted Date [...] 02/24/2022 Active Vitamin D (Ergocalciferol) 1.25 MG (14937 UT) Oral Capsule TAKE ONE CAPSULE BY [...] mRNA, LNP-s, No Pre serve, 2-Dose Series ([employer]) 02/17/2021,01/27/2021 Pneumococcal Polysaccharide PPV23 (Pneumovax) SEASONAL INFLUENZA, [...] * Telephone Encounter - Eyal Constantino - 08/24/2023 9:17 AM EDT Pt scheduled for September 03. Pt is aware. * Telephone Encounter - Lakshmi Rausch DO - 08/24/2023 8:37 AM EDT Last seen 07/31/22, so she needs a f/u appt for STEFANY on CPAP & O2, DME: [facility], [employer]. Please schedule. * Telephone Encounter - Lien Morton LPN - 08/23/2023 4:10 PM EDT [facility] is requesting an order for cpap supplies documented in this encounter Plan of Treatment Upcoming Encounters Date Type Specialty Care Team Description 08/24/2023 Home Visit [facility] Ladi Joseph, RN [address] [place] [address] 08/27/2023 Office Visit Allergy & Immunology Brennan Wasserman MD [address] [facility], [place] [address] 09/03/2023 Office Visit Sleep Disorders Lakshmi Rausch, DO [address] [place] [address] 11/01/2023 Appointment Radiology 11/01/2023 Appointment Radiology 11/01/2023 Hospital Encounter Surgery [facility], In And Out Surgery [address] [place] [address] 11/01/2023 Surgery Surgery [facility], In And Out Surgery [address] [place] [place] [address] ANESTHESIA FOR NON-INVASIVE IMAGING (MRI OR CT) 11/07/2023 Office Visit Pain Medicine Satish Anthony, [address] [place] [phone] 11/07/2023 Telemedicine Neurological Surgery Aime Casas MD [address] [facility] [place] [address] 11/23/2023 Office Visit Family Medicine Sotero Pizano MD [address] [place] [facility] [place] [address] 11/27/2023 Office Visit Neurology Vernell Kimball PA-C [address] [facility] [place] [address] 12/10/2023 Nurse Only [facility] Nurse Carly [facility] [address] [facility] [address] 12/19/2023 Office Visit Cardiology Amaya Singleton PA-C [address] [place] [address] 04/08/2024 Office Visit Hematology Oncology Mario Kong MD [address] [facility] [place] [address] 06/30/2024 Imaging Radiology Scheduled Procedures Name Priority [...] Additional history exists CKD PHOS USE SMARTSET 97123 03/16/202403/05, 03/29/2022, 05/13/2021, Additional history exists CKD HGB USE SMARTSET 26711 04/25/202404/25, 04/25/2023, 04/06/2023, Additional history exists Mammogram [...] this encounter Medical Devices Implanted Type Area Life Science Research Assistant Device Identifier Shelf Expiration Date Model / Serial / Lot Terumo Microvention Hydrosoft 3d Implanted:Qty: 1 on 08/16/2018 by Aime Casas MD at [place] [facility] [place] [facility] N/A: Head [employer] : [employer] 07/05/2023 [id number] / [id number] / [id number] Hd Offset Hum 46x16 - [id number] Implanted:Qty: 1 on 09/28/2020 by Teresa Rehman DO at OR [facility] Left: Shoulder DJO SURGICAL 06/17/2026 [id number] / / [id number] documented as of this encounter Advance Directives [...] and were consensually agreed upon. Care Teams High School History Teacher Relationship Specialty Start Date End Date March, Sotero Sutton MD [address] [place], [place] [id number] PCP - General Family Medicine 12/07/22 documented as of this encounter
--- OUTSIDE RECORDS SUMMARY | 2023-11-15 04:24 | External Medical Summary | Summary of Care ---
Author Name Unknown Organization [facility] Address [address] [place] [address] Phone [phone] Care Team Providers Care Road Machinery Inspector Name Role Phone Sotero Pizano MD Primary Care Provider [phone] Reason for Visit * Reason Onset Date Comments [facility]: Maintenance 08/25/2023 Encounter Details Date Type Department Care Team Description 08/25/2023 Scheduled Telephone [facility], [facility] [address] [place] [address] [facility], Nurse [facility] [address] [place] [address] Allergies Active Allergy Reactions Severity Noted Date [...] as of this encounter (statuses as of 08/25/2023) Medications Medication Sig Dispensed Refills Start Date End Date Status CPAP 16 % every night at bedtime. 0 Active Compressor NebulizerIndication s:Chronic bronchitis with wheezing (HCC) Inhale via nebulizer . Use as directed. 1 Each 1 02/24/2022 Active Vitamin D (Ergocalciferol) 1.25 MG (35111 UT) Oral Capsule TAKE ONE CAPSULE BY [...] as of this encounter (statuses as of 08/25/2023) Active Problems Problem Noted Date Iron deficiency [...] as of this encounter (statuses as of 08/25/2023) Resolved Problems Problem Noted Date Resolved Date [...] as of this encounter (statuses as of 08/25/2023) Immunizations Name Administration Dates Next Due COVID-19 mRNA, LNP-s, No Pre serve, 2-Dose Series ([employer]) 02/17/2021,01/27/2021 Pneumococcal Polysaccharide PPV23 (Pneumovax) SEASONAL INFLUENZA, [...] encounter Miscellaneous Notes * Telephone Encounter - Laurie Cabrera RN - 08/25/2023 12:22 PM EDT Images from the original note were not included. [facility] Telephonic Nurse Follow-Up Call [facility] Subprogram: Focused Care Management (3-9 months) Follow Up Call Type: Weekend Call Acute issue requiring follow-up call: Remote Patient Monitoring Trigger Objective: 08/24/2023 1:12 PM 07/25/2023 2:45 PM 07/03/2023 1:50 PM 06/19/2023 4:40 PM 06/19/2023 4:04 PM VITALS ACROSS ENCOUNTERS BP 108/68 116/68 126/62 102/62 Arterial Blood Pressure1 (ABP) 110/60 Arterial Blood Pressure2 (ART) 102/62 Pulse 70 75 70 Weight 117.8 kg 114.9 kg 114.7 kg BMI 42.58 kg/m2 41.53 kg/m2 41.43 kg/m2 No results found for: BLOOD, PROTEIN, ESTERASE, WBC, NITRITE, QUANT URINE CULTURE GROWTH No results found for: WBC AUTO - [facility], HGB - [facility], PLATELET AUTO - [facility] Lab Results Component Value Date SODIUM - [facility] 141 06/21/2023 POTASSIUM - [facility] 3.8 06/21/2023 CO2 - [facility] 32 06/21/2023 CREATININE - [facility] 1.4 (H) 06/21/2023 ESTIMATED GLOMERULAR FILTRATION RATE - [facility] 42 (L) 06/21/2023 No results found for: PRO BNP, LEFT VENTRICULAR EJECTION FRACTION Remote Patient Monitoring: Oxygen Needs: NO supplemental oxygen needs identified , just at HS DME Needs: Nebulizer machine and supplies, using as ordered. Medications: Current DTP: Double dose of Torsemide for 3 days, started 08/24 Subjective: Condition Status: Improvement in symptoms but not at baseline Current Concerns: Per patient, she did double her Torsemide yesterday and today, weight did come down some. She has decreased swelling in her feet/legs, and her pants do not feel as tight as they were. No SOB noted during conversation Aware of follow up [facility] call tomorrow, but to call [facility] before that if any new or not improving symptoms. Pt agreed Disposition: Weekend call scheduled Future Visits Scheduled: Future Appointments-next 60 days Date/Time Provider Specialty Dept Phone 08/25/2023 2:30 PM Nurse [facility] [phone] 08/26/2023 11:30 AM Nurse [facility] [phone] 08/27/2023 3:00 PM (Arrive by 2:45 PM) Brennan Wasserman MD Allergy & Immunology [phone] 09/03/2023 3:00 PM (Arrive by 2:45 PM) Lakshmi Rausch DO Sleep Disorders [phone] 09/18/2023 4:00 PM Ladi Joseph RN [facility] [phone] 11/01/2023 7:00 AM (Arrive by 6:30 AM) [address] Radiology [phone] 11/01/2023 7:45 AM (Arrive by 7:00 AM) [address] Radiology [phone] 11/07/2023 11:25 AM (Arrive by 11:10 AM) Satish Anthony DO Pain Medicine [phone] 11/07/2023 12:30 PM Aime Casas MD Neurological Surgery [phone] 11/23/2023 2:40 PM (Arrive by 2:25 PM) Sotero Pizano MD Family Medicine [phone] 11/27/2023 1:30 PM (Arrive by 1:15 PM) Vernell Kimball PA-C Neurology [phone] 12/10/2023 3:30 PM Nurse [facility] [phone] 12/19/2023 11:00 AM (Arrive by 10:45 AM) Amaya Singleton PA-C Cardiology [phone] 04/08/2024 3:15 PM (Arrive by 3:00 PM) Mario Kong MD Hematology Oncology [phone] 06/30/2024 1:30 PM (Arrive by 1:15 PM) [address] Radiology [phone] Laurie Cabrera, RN documented in this encounter Plan of Treatment Upcoming Encounters Date Type Specialty Care Team Description 08/26/2023 Scheduled Telephone [facility], Nurse [facility] [address] [place] [address] 08/27/2023 Office Visit Allergy & Immunology Brennan Wasserman MD [address] [place] [address], [place] [address] 09/03/2023 Office Visit Sleep Disorders Lakshmi Rausch DO [address] [place] [address] 09/18/2023 Home Visit [facility] Ladi Joseph, JEREMY [address] [place] [address] 11/01/2023 Appointment Radiology 11/01/2023 Appointment Radiology 11/01/2023 Hospital Encounter Surgery [facility] [address] [place] [address] 11/01/2023 Surgery Surgery [facility] Out Surgery [address] [place] [address] ANESTHESIA FOR NON-INVASIVE IMAGING (MRI OR CT) 11/07/2023 Office Visit Pain Medicine Satish Anthony DO [address] [place] [address] 11/07/2023 Telemedicine Neurological Surgery Aime Casas MD [address] [place] [address] 11/23/2023 Office Visit Family Medicine Sotero Pizano MD [address] [place] [address] 11/27/2023 Office Visit Neurology Vernell Kimball PA-C [address] [facility] [place], [place] [phone] 12/10/2023 Nurse Only [facility], Nurse [facility] [address] [place] [address] 12/19/2023 Office Visit Cardiology Amaya Singleton PA-C [address] [place] [address] 04/08/2024 Office Visit Hematology Oncology Mario Kong MD [address] [place], [place] [id number] 06/30/2024 Imaging Radiology Scheduled Procedures Name Priority [...] Additional history exists CKD PHOS USE SMARTSET 10849 03/16/202403/05, 03/29/2022, 05/13/2021, Additional history exists CKD HGB USE SMARTSET 94266 04/25/202404/25, 04/25/2023, 04/06/2023, Additional history exists Mammogram [...] this encounter Medical Devices Implanted Type Area Tape Making Machine Operator Device Identifier Shelf Expiration Date Model / Serial / Lot Terumo Microvention Hydrosoft 3d Implanted:Qty: 1 on 08/16/2018 by Aime Casas MD at [place] [facility] [place]: Head [employer] : [employer] 07/05/2023 [id number] / [id number] / [id number] Hd Offset Hum 46x16 - [id number] Implanted:Qty: 1 on 09/28/2020 by Teresa Rehman, at OR [facility] Left: Shoulder [employer] SURGICAL 06/17/2026 [id number] documented as of this encounter Advance Directives [...] and were consensually agreed upon. Care Teams Road Machinery Inspector Relationship Specialty Start Date End Date March, Sotero Sutton MD [address], [place] [id number] PCP - General Family Medicine 12/07/22 documented as of this encounter
--- OUTSIDE RECORDS SUMMARY | 2023-11-15 04:25 | External Medical Summary | Summary of Care ---
Author Name Unknown Organization [facility] Address [address] [place] [address] Phone [phone] Care Team Providers Care Sustainability Coach Name Role Phone Sotero Pizano MD Primary Care Provider [phone] Reason for Visit * Reason Comments eRx-Medication Refill Encounter Details Date Type Department Care Team Description 08/11/2023 Refill [facility] [address] [place] [address] Cornelio Steele, [address] [place] [address] Vertigo Allergies Active Allergy Reactions Severity Noted Date [...] as of this encounter (statuses as of 08/13/2023) Medications Medication Sig Dispensed Refills Start Date End Date Status CPAP 16 % every night at bedtime. 0 Active Compressor NebulizerIndicati ons:Chronic bronchitis with wheezing (HCC) Inhale via nebulizer . Use as directed. 1 Each 1 2 Active Vitamin D (Ergocalciferol) 1.25 MG (66108 UT) Oral Capsule TAKE ONE CAPSULE BY MOUTH MONTHLY 12 Capsule 0 2 Active Fluticasone Propionate 50 MCG/ACT Nasal Suspension (Flonase) Administer 2 Sprays into nostril in the morning. 0 Active Proventil HFA 108 (90 Base) MCG/ACT Inhalation Aerosol SolutionIndicatio ns:Bronchitis,Upp er respiratory tract infection, unspecified type Inhale 2 Puffs by mouth every 4 hours as needed for Congestion, Cough or Wheezing. 18 g 0 3 Active Triamcinolone Acetonide 0.5 % External Cream (Aristocort)Indic ations:Dermatitis ,Lipodermatoscler osis of both lower extremities apply topically to affected area of lower extremities where redness and itching and tight skin twice a day 450 g 0 3 Active Polyethylene Glycol 3350 17 GM/SCOOP Oral Powder (MiraLax)Indicati ons:Constipation, unspecified constipation type Take 17 g by mouth daily as needed for Constipation. Dissolve one heaping tablespoon in 8 ounces of water or juice. 238 g 0 3 Active Additional Information Patient not taking.Reported on 07/03/2023 Ondansetron HCl 4 MG Oral Tablet (Zofran)Indicatio ns:Nausea TAKE 1 TABLET BY MOUTH EVERY 8 HOURS IF NEEDED FOR NAUSEA 30 Tablet 0 3 Active Vitamin D3 25 MCG (1000 UT) Oral Tablet Chewable Take 2,000 Units by mouth in the morning. 0 Active Senna 8.6 MG Oral Tablet Take 1 Tablet by mouth in the morning. 0 Active Pregabalin 25 MG Oral Capsule (Lyrica) Take 2 capsule in the am, and 2 capsules in pm. 120 Capsule 3 3 Active oxygen IN GAS Use 2 L/min(Oxygen) as directed at bedtime. 0 Active Aspirin 81 MG Oral Tablet Delayed Release (RA Aspirin EC)Indications:Ce rebral aneurysm, nonruptured Take 1 Tablet by mouth in the morning. 90 Tablet 3 3 Active Atorvastatin Calcium 10 MG Oral Tablet (Lipitor) Take 1 Tablet by mouth in the morning. 90 Tablet 3 3 Active Docusate Sodium 100 MG Oral Capsule (Colace)Indicatio ns:Constipation, unspecified constipation type Take 1 Capsule by mouth every evening. 90 Capsule 3 3 Active Losartan Potassium 25 MG Oral Tablet (Cozaar)Indicatio ns:HTN, goal below 140/90,Chronic kidney disease, stage 3b (HCC) Take 0.5 Tablets by mouth in the morning. 45 Tablet 3 3 Active Magnesium Oxide -Mg Supplement 400 (240 Mg) MG Oral Tablet (Mag-Ox)Indicatio ns:HTN, goal below 140/90 Take 1 Tablet by mouth in the morning. In the morning.. 90 Tablet 3 3 Active Metoprolol Succinate ER 25 MG Oral Tablet Extended Release 24 Hour (Toprol XL) Take 1 Tablet by mouth in the morning. 90 Tablet 3 3 Active rOPINIRole HCl 2 MG Oral Tablet (Requip) TAKE ONE TABLET BY MOUTH IN THE MORNING, ONE AT NOON AND ONE BEFORE BEDTIME. TAKE WITH FOOD. 270 Tablet 3 3 Active Torsemide 10 MG Oral Tablet (Demadex)Indicati ons:Chronic heart failure with preserved ejection fraction (HCC) take 2 tablets (20 mg) in the morning and 1 tablet (10 mg) in the evening 90 Tablet 3 3 Active traZODone HCl 150 MG Oral Tablet (Desyrel) Take 1 Tablet by mouth at bedtime. 90 Tablet 3 3 Active Vitamin B-12 1000 MCG Oral Tablet (Cyanocobalamin)I ndications:B12 deficiency Take 1 Tablet by mouth in the morning. 90 Tablet 3 3 Active DIURETIC TITRATION PLAN If no improvement on day 3, contact heart failure managing provider. 1 Each 0 3 Active Ipratropium-Albut aleksandr 0.5-2.5 (3) MG/3ML Inhalation Solution (Duoneb)Indicatio ns:Chronic bronchitis with wheezing (HCC) Inhale 3 mL via nebulizer in the morning and 3 mL at noon and 3 mL in the evening and 3 mL before bedtime. 1080 mL 1 3 Active Meclizine HCl 12.5 MG Oral Tablet (Antivert)Indicat ions:Vertigo TAKE 1 TABLET BY MOUTH THREE TIMES DAILY NEEDED for dizziness. 30 Tablet 1 3 Active Meclizine HCl 12.5 MG Oral Tablet (Antivert)Indicat ions:Vertigo TAKE ONE TABLET BY MOUTH THREE TIMES DAILY NEEDED FOR DIZZINESS 30 Tablet 2 2 08/13/20 23 Discontinued documented as of this encounter (statuses as of 08/13/2023) Active Problems Problem Noted Date Iron deficiency [...] as of this encounter (statuses as of 08/13/2023) Resolved Problems Problem Noted Date Resolved Date [...] as of this encounter (statuses as of 08/13/2023) Immunizations Name Administration Dates Next Due COVID-19 mRNA, LNP-s, No Pre serve, 2-Dose Series ([employer]) 02/17/2021,01/27/2021 Pneumococcal Polysaccharide PPV23 (Pneumovax) SEASONAL INFLUENZA, [...] encounter Miscellaneous Notes * Telephone Encounter - Daiana Griffin RPh - 08/13/2023 11:35 AM EDTSigned Prescriptions: Disp Refills Meclizine HCl 12.5 MG Oral Tablet (Antiver*30 Tab*1 Sig: TAKE 1 TABLET BY MOUTH THREE TIMES DAILY NEEDED for dizziness.Authorizing Provider: CORNELIO STEELE User: DAIANA GRIFFIN documented in this encounter Plan of Treatment Upcoming Encounters Date Type Specialty Care Team Description 08/14/2023 Office Visit Pain Medicine Elijah Nash DO [address] [place] [address] 08/22/2023 Office Visit Neurological Surgery Aime Casas MD [address] [place] [address] 08/24/2023 Home Visit [facility] Ladi Joseph, RN [address] [place] [facility] [place] [id number] 08/27/2023 Office Visit Allergy & Immunology Brennan Wasserman MD [address] [place] [address] 11/23/2023 Office Visit Family Medicine Sotero Pizano MD [address] [place] [address] 11/27/2023 Office Visit Neurology Vernell Kimball PA-C [address] [place] [address] 12/10/2023 Nurse Only [facility], Nurse [facility] [address] [place] [address] 12/19/2023 Office Visit Cardiology Amaya Singleton, PAJeimyC [address] [place] [facility] [place] [id number] 04/08/2024 Office Visit Hematology Oncology Mario Kong MD [address] [place] [address] 06/30/2024 Imaging Radiology Health Maintenance Due Date Last Done Comments Pneumococcal Vaccine: 65+ Years (2 - PCV) 02/24/2023 02/24/2022 Albumin/Creatinine Ratio 06/28/2023 06/28/2022 COVID-19 Vaccine (3 - 2022- season) 2023 02/17/2021, 01/27/2021 Influenza Vaccine (FLU shot) (#1) 2023 09/08/2021, 07/29/2020 Depression Screening 12/07/2023 12/07/2022 GFR 12/22/2023 06/21/2023, 06/12/2022, 03/21/2023, Additional history exists CKD PHOS USE SMARTSET 55905 03/16/202403/05, 03/29/2022, 05/13/2021, Additional history exists CKD HGB USE SMARTSET 73040 04/25/202404/25, 04/25/2023, 04/06/2023, Additional history exists Mammogram [...] this encounter Medical Devices Implanted Type Area Retail Manager In Training Device Identifier Shelf Expiration Date Model / Serial / Lot Terumo Microvention Hydrosoft 3d Implanted:Qty: 1 on 08/16/2018 by Aime Casas MD at [place] [facility] [place] N/A: Head [employer] : [employer] 07/05/2023 [id number] / [id number] / [id number] Hd Offset Hum 46x16 - [id number] Implanted:Qty: 1 on 09/28/2020 by Teresa Rehman DO at OR [facility] Left: Shoulder [employer] SURGICAL 06/17/2026 [id number] documented as of this encounter Visit Diagnoses Diagnosis Vertigo Dizziness and giddiness documented in this encounter Advance Directives Latest [...] and were consensually agreed upon. Care Teams Sustainability Coach Relationship Specialty Start Date End Date March, Sotero Sutton MD [address] [facility] [place] [id number] PCP - General Family Medicine 12/07/22 documented as of this encounter
--- OUTSIDE RECORDS SUMMARY | 2023-11-15 04:25 | External Medical Summary | Summary of Care ---
Author Name Unknown Organization [facility] Address [address] [place] [address] Phone [phone] Care Team Providers Care Sales And Production Manager Name Role Phone Sotero Pizano MD Primary Care Provider [phone] Reason for Visit * Reason Onset Date Comments Medication Refill 08/03/2023 Medication Problem 08/03/2023 Encounter Details Date Type Department Care Team Description 08/03/2023 Refill Pharmacy Call Center [address] [facility] [place] [address] Sotero Pizano MD [address] [place], [place] [id number] Chronic bronchitis with wheezing (HCC) Allergies Active Allergy Reactions Severity Noted Date [...] as of this encounter (statuses as of 08/07/2023) Medications Medication Sig Dispensed Refills Start Date End Date Status CPAP 16 % every night at bedtime. 0 Active Compressor NebulizerIndication s:Chronic bronchitis with wheezing (HCC) Inhale via nebulizer . Use as directed. 1 Each 1 02/24/2022 Active Meclizine HCl 12.5 MG Oral Tablet (Antivert)Indicatio ns:Vertigo TAKE ONE TABLET BY MOUTH THREE TIMES DAILY NEEDED FOR DIZZINESS 30 Tablet 2 03/15/2022 Active Vitamin D (Ergocalciferol) 1.25 MG (78692 UT) Oral Capsule TAKE ONE CAPSULE BY [...] in the morning. 90 Tablet 07/29/2023 Active Atorvastatin Calcium 10 MG Oral Tablet (Lipitor) Take 1 Tablet by mouth in the morning. 90 Tablet 07/29/2023 Active Docusate Sodium 100 MG Oral Capsule (Colace)Indications :Constipation, unspecified constipation type Take 1 Capsule by mouth every evening. 90 Capsule 07/29/2023 Active Ipratropium-Albuter ol 0.5-2.5 (3) MG/3ML Inhalation Solution (Duoneb)Indications :Chronic bronchitis with wheezing (HCC) Inhale 3 mL via nebulizer in the morning and 3 mL at noon and 3 mL in the evening and 3 mL before bedtime. 100 mL 07/29/2023 Active Losartan Potassium 25 MG Oral Tablet (Cozaar)Indications :HTN, goal below 140/90,Chronic kidney disease, stage 3b (HCC) Take 0.5 Tablets by mouth in the morning. 45 Tablet 07/29/2023 Active Magnesium Oxide -Mg Supplement 400 (240 Mg) MG Oral Tablet (Mag-Ox)Indications :HTN, goal below 140/90 Take 1 Tablet by mouth in the morning. In the morning.. 90 Tablet 07/29/2023 Active Metoprolol Succinate ER 25 MG Oral Tablet Extended Release 24 Hour (Toprol XL) Take 1 Tablet by mouth in the morning. 90 Tablet 07/29/2023 Active rOPINIRole HCl 2 MG Oral Tablet (Requip) TAKE ONE TABLET BY MOUTH IN THE MORNING, ONE AT NOON AND ONE BEFORE BEDTIME. TAKE WITH FOOD. 270 Tablet 07/29/2023 Active Torsemide 10 MG Oral [...] managing provider. 1 Each 0 07/30/2023 Active documented as of this encounter (statuses as of 08/07/2023) Active Problems Problem Noted Date Iron deficiency [...] as of this encounter (statuses as of 08/07/2023) Resolved Problems Problem Noted Date Resolved Date [...] as of this encounter (statuses as of 08/07/2023) Immunizations Name Administration Dates Next Due COVID-19 [...] as of this encounter Miscellaneous Notes * Addendum Note - Yulisa Putnam CPhT - 08/07/2023 1:03 PM EDTAddended by: YULISA PUTNAM on: 08/07/2023 01:03 PM Modules accepted: Orders * Telephone Encounter - Yulisa Putnam CPhT - 08/07/2023 1:01 PM EDT Recently denied for a duplicate request, pharmacy did not fill previous RX due to it not being enough for a 90 day supply. Please advise new request. Pharmacy is requesting a 90-day supply, pre-edited RXs as such. Please review and approve if appropriate. Pending Prescriptions: Disp Refills Ipratropium-Albuterol 0.5-2.5 (3) MG/3ML *1080 mL3 Sig: Inhale 3 mL via nebulizer in the morning and 3 mL at noon and 3 mL in the evening and 3 mL before bedtime. Refused Prescriptions: Disp Refills Ipratropium-Albuterol 0.5-2.5 (3) MG/3ML I*1080 mL3 Sig: Inhale 3 mL via nebulizer in the morning and 3 mL at noon and 3 mL in the evening and 3 mL before bedtime. Refused By: ARNALDO LEIGH Reason for Refusal: Duplicate Request Last Visit: Visit date not found (in office), Visit date not found (telemedicine) Visit date not found If no future appointments scheduled, and last appointment is greater than a year ago, please schedule patient for an appointment Last date the medication was ordered: 07/29/23 Patient Phone Numbers Labs: Lab Results Component Value Date/Time CREAT 1.4 (H) 06/21/2023 02:50 PM CREAT 1.1 (H) 10/05/2020 02:35 PM POTASSIUM 3.8 06/21/2023 02:50 PM POTASSIUM 3.9 10/05/2020 02:35 PM TSH 4.49 (H) 04/06/2023 09:32 AM TSH 3.24 04/28/2020 11:03 AM LDLCALC 79 11/14/2022 08:22 AM LDLCALC 84 03/05/2019 02:30 PM LDLDIRECT 121 04/02/2020 02:05 PM ALT 18 03/21/2023 08:09 AM ALT 12 10/05/2020 02:35 PM HGBA1C 5.5 03/27/2023 10:44 AM HGBA1C 5.6 04/04/2017 11:29 AM * Telephone Encounter - Arnaldo Leigh RPh - 08/04/2023 2:26 PM EDTRefused Prescriptions: Disp Refills Ipratropium-Albuterol 0.5-2.5 (3) MG/3ML I*1080 mL3 Sig: Inhale 3 mL via nebulizer in the morning and 3 mL at noon and 3 mL in the evening and 3 mL before bedtime. Refused By: ARNALDO LEIGH Reason for Refusal: Duplicate Request * Telephone Encounter - Esme Moran flight software test engineer - 08/03/2023 4:08 PM EDT Did you pend patient's preferred pharmacy and medication before forwarding?yes Pharmacy: [facility] Pending Prescriptions: Disp Refills Ipratropium-Albuterol 0.5-2.5 (3) MG/3ML *1080 mL3 Sig: Inhale 3 mL via nebulizer in the morning and 3 mL at noon and 3 mL in the evening and 3 mL before bedtime. Last Visit: Visit date not found (in office), Visit date not found (telemedicine) Next Visit: Visit date not found If no future appointments scheduled, and last appointment is greater than a year ago, please schedule patient for a follow-up appointment Last date the medication was ordered: 07/29/2023 ,pt uses mail order and requests 90 d/s Is this request for a controlled substance?No Urine Drug Screen: Results for orders placed or performed in visit on 10/22/19 OPIOIDS/BENZO COMPLIANCE MONITORING TEST Result Value URINE DRUG SCREEN RESULT Amphetamine NEGATIVE Benzodiazepines REFER TO CONFIRMATION RESULT (A) Cannabinoids REFER TO CONFIRMATION RESULT (A) Cocaine Metabolite NEGATIVE HYDROCODONE NEGATIVE METHADONE METABOLITE NEGATIVE Morphine / Codeine NEGATIVE OXYCODONE NEGATIVE COMMENT THE ABOVE SCREENING RESULTS ARE PRESUMPTIVE AND CAN ONLY BE USED FOR MEDICAL PURPOSES. CONFIRMATORY TESTING IS AVAILABLE UPON REQUEST. Cutoff Concentration URINE VALID INTERP NORMAL CREATININE KYLAH 52 *Note: Due to a large number of results and/or encounters for the requested time period, some results have not been displayed. A complete set of results can be found in Results Review. Patient Phone Numbers Labs: Lab Results Component Value Date/Time CREAT 1.4 (H) 06/21/2023 02:50 PM CREAT 1.1 (H) 10/05/2020 02:35 PM POTASSIUM 3.8 06/21/2023 02:50 PM POTASSIUM 3.9 10/05/2020 02:35 PM TSH 4.49 (H) 04/06/2023 09:32 AM TSH 3.24 04/28/2020 11:03 AM LDLCALC 79 11/14/2022 08:22 AM LDLCALC 84 03/05/2019 02:30 PM LDLDIRECT 121 04/02/2020 02:05 PM ALT 18 03/21/2023 08:09 AM ALT 12 10/05/2020 02:35 PM HGBA1C 5.5 03/27/2023 10:44 AM HGBA1C 5.6 04/04/2017 11:29 AM documented in this encounter Plan of Treatment Upcoming Encounters Date Type Specialty Care Team Description 08/22/2023 Office Visit Neurological Surgery Aime Casas MD [address] [place] [address] 08/24/2023 Home Visit [facility] Ladi Joseph RN [address] [place] [address] 08/27/2023 Office Visit Allergy & Immunology Brennan Wasserman MD [address] [place] [address] 11/23/2023 Office Visit Family Medicine Sotero Pizano MD [address] [place] [facility] [place] [address] 11/27/2023 Office Visit Neurology Vernell Kimball PA-C [address] [facility] [place] [phone] 12/10/2023 [facility] [address] [place] [facility] [place] [address] 12/19/2023 Office Visit Cardiology Amaya Singleton PA-C [address] [place] [address] 04/08/2024 Office Visit Hematology Oncology Mario Kong MD [address] [place] [address] 06/30/2024 Imaging Radiology Health Maintenance Due Date Last Done Comments COVID-19 Vaccine (3 - Pfizer series) 04/14/2021 02/17/2021, 01/27/2021 Pneumococcal Vaccine: 65+ Years (2 - PCV) 02/24/2023 02/24/2022 Albumin/Creatinine Ratio 06/28/2023 06/28/2022 Influenza Vaccine (FLU shot) (#1) 2023 09/08/2021, 07/29/2020 Depression Screening 12/07/2023 12/07/2022 GFR 12/22/2023 06/21/2023, 06/12/2022, 03/21/2023, Additional history exists CKD PHOS USE SMARTSET 81320 03/16/202403/05, 03/29/2022, 05/13/2021, Additional history exists CKD HGB USE SMARTSET 94007 04/25/202404/25, 04/25/2023, 04/06/2023, Additional history exists Mammogram [...] this encounter Medical Devices Implanted Type Area Model Photographers' Device Identifier Shelf Expiration Date Model / Serial / Lot [employer] Microvention Hydrosoft 3d Implanted:Qty: 1 on 08/16/2018 [place] [facility] [place] [employer] : INTERVENTIONA 07/05/2023 [id number] / [id number] / [id number] Hd Offset Hum 46x16 - [id number] Implanted:Qty: 1 on 09/28/2020 by Teresa Rehman DO at OR [facility] Left: Shoulder [employer] SURGICAL 06/17/2026 [id number] documented as of this encounter Visit Diagnoses Diagnosis Chronic bronchitis with wheezing (HCC) documented in this encounter Advance Directives Latest [...] and were consensually agreed upon. Care Teams Sales And Production Manager Relationship Specialty Start Date End Date March, Sotero Sutton MD [address] [facility] [place] [phone] PCP - General Family Medicine 12/07/22 documented as of this encounter
--- OUTSIDE RECORDS SUMMARY | 2023-11-15 04:25 | External Medical Summary | Summary of Care ---
Author Name Unknown Organization [facility] Address [address] [facility] [place] [address] Phone [phone] Care Team Providers Care Biomedical Engineering Professor Name Role Phone Sotero Pizano MD Primary Care Provider [phone] Reason for Visit * Reason Onset Date Comments [facility]: Maintenance 07/25/2023 Encounter Details Date Type Department Care Team Description 07/25/2023 Telephone [facility], [facility] [address] [place] [address] Ladi Joseph RN [address] [place] [address] [facility]: Maintenance Allergies Active Allergy Reactions Severity Noted Date [...] as of this encounter (statuses as of 08/11/2023) Medications Medication Sig Dispensed Refills Start Date [...] 03/15/2022 Active Vitamin D (Ergocalciferol) 1.25 MG (91916 UT) Oral Capsule TAKE ONE CAPSULE BY [...] L/min(Oxygen) as directed at bedtime. 0 Active documented as of this encounter (statuses as of 08/11/2023) Active Problems Problem Noted Date Iron deficiency [...] as of this encounter (statuses as of 08/11/2023) Resolved Problems Problem Noted Date Resolved Date [...] as of this encounter (statuses as of 08/11/2023) Immunizations Name Administration Dates Next Due COVID-19 [...] encounter Miscellaneous Notes * Telephone Encounter - HECTOR Acosta - 07/25/2023 3:29 PM EDT New order placed, please schedule/fax * Telephone Encounter - Ladi Joseph RN - 07/25/2023 3:24 PM EDT Pt has not received nocturnal oximetry test yet, ordered on 07/06. Spoke with [employer] [facility] and they received order but there is no signature on it. They need an order that is electronically or physically signed by Giselle Lopez NP. Giselle, can you please sign the order and have intake send back? Thank you! documented in this encounter Plan of Treatment Upcoming Encounters Date Type Specialty Care Team Description 08/14/2023 Office Visit Pain Medicine Elijah Nash DO [address] [place] [address] 08/22/2023 Office Visit Neurological Surgery Aime Casas MD [address] [facility] [place] [address] 08/24/2023 Home Visit [facility] Ladi Joseph RN [address] [place] [address] 08/27/2023 Office Visit Allergy & Immunology Brennan Wasserman MD [address] [place] [address] 11/23/2023 Office Visit Family Medicine Sotero Pizano MD [address] [place] [address] 11/27/2023 Office Visit Neurology Vernell Kimball PA-C [address] [facility] [place] [phone] 12/10/2023 Nurse Only [facility], Nurse Annual [facility] [address] [place] [address] 12/19/2023 Office Visit Cardiology Amaya Singleton PA-C [address] [facility] [place] [address] 04/08/2024 Office Visit Hematology Oncology Mario Kong MD [address] [place] [address] 06/30/2024 Imaging Radiology Scheduled Orders Name Type Priority Associated Diagnoses Orde r Schedule NOCTURNAL HOME OXIMETRY (OP) Procedures Routine Chronic heart failure with preserved ejection fraction (HCC) Ordered: 07/25/2023 Health Maintenance Due Date Last Done Comments Pneumococcal Vaccine: 65+ Years (2 - PCV) 02/24/2023 02/24/2022 Albumin/Creatinine Ratio 06/28/2023 06/28/2022 COVID-19 Vaccine (3 - 2022- season) 2023 02/17/2021, 01/27/2021 Influenza Vaccine (FLU shot) (#1) 2023 09/08/2021, 07/29/2020 Depression Screening 12/07/2023 12/07/2022 GFR 12/22/2023 06/21/2023, 06/0 12/2022, 03/21/2023, Additional history exists CKD PHOS USE SMARTSET 44308 03/16/202403/05, 03/29/2022, 05/13/2021, Additional history exists CKD HGB USE SMARTSET 79424 04/25/202404/25, 04/25/2023, 04/06/2023, Additional history exists Mammogram [...] this encounter Medical Devices Implanted Type Area Project Mgr Device Identifier Shelf Expiration Date Model / Serial / Lot [employer] Microvention Hydrosoft 3d Implanted:Qty: 1 on 08/16/2018 [place] [facility] [place] [employer] : INTERVENTIONA 07/05/2023 [id number] / [id number] / [id number] Hd Offset Hum 46x16 - [id number] Implanted:Qty: 1 on 09/28/2020 by Teresa Rehman DO at OR [facility] Left: Shoulder [employer] SURGICAL 06/17/2026 [id number] documented as of this encounter Visit Diagnoses Diagnosis Chronic heart failure with preserved ejection fraction (HCC)- Primary documented in this encounter Advance Directives Latest [...] and were consensually agreed upon. Care Teams Biomedical Engineering Professor Relationship Specialty Start Date End Date March, Sotero Sutton MD [address] [place] [address] PCP - General Family Medicine 12/07/22 documented as of this encounter
--- OUTSIDE RECORDS SUMMARY | 2023-11-15 04:25 | External Medical Summary | Summary of Care ---
Author Name Unknown Organization [facility] Address [address] [facility] [place] [address] Phone [phone] Care Team Providers Care Court Officer Name Role Phone Sotero Pizano MD Primary Care Provider [phone] Reason for Visit * Reason Onset Date Comments [facility]: Maintenance 08/21/2023 Encounter Details Date Type Department Care Team Description 08/21/2023 Telephone [facility], [facility] [address] [facility] [place] [address] Giselle Lopez CRNP [address] [facility] [place] [address] [facility]: Maintenance Allergies Active Allergy [...] as of this encounter (statuses as of 08/21/2023) Medications Medication Sig Dispensed Refills Start Date End Date Status CPAP 16 % every night at bedtime. 0 Active Compressor NebulizerIndication s:Chronic bronchitis with wheezing (HCC) Inhale via nebulizer . Use as directed. 1 Each 1 02/24/2022 Active Vitamin D (Ergocalciferol) 1.25 MG (26853 UT) Oral Capsule TAKE ONE CAPSULE BY [...] as of this encounter (statuses as of 08/21/2023) Active Problems Problem Noted Date Iron deficiency [...] as of this encounter (statuses as of 08/21/2023) Resolved Problems Problem Noted Date Resolved Date [...] as of this encounter (statuses as of 08/21/2023) Immunizations Name Administration Dates Next Due COVID-19 mRNA, LNP-s, No Pre serve, 2-Dose Series ([employer]) 02/17/2021,01/27/2021 Pneumococcal Polysaccharide PPV23 (Pneumovax) SEASONAL [...] Telephone Encounter - Sheri Taylor RN - 08/21/2023 3:23 PM EDT Call to patient to let her know that her overnight pulse ox showed she qualifies for O2 at night. Patient already has oxygen, but needs a new order so she can switch to [facility] for her oxygen. She said that is the only way she can switch DME companies. Routed to [facility] [place]. RN [facility] RN [phone] * Telephone Encounter - HECTOR Acosta - 08/21/2023 10:49 AM EDT Overnight pulse ox showed she qualifies for O2 at night. Does she have this already? Does she need order for O2 or does this just need submitted to DME company to qualify for oxygen she already has at home? documented in this encounter Plan of Treatment Upcoming Encounters Date Type Specialty Care Team Description 08/24/2023 Home Visit [facility] Ladi Joseph RN [address] [facility] [place] [address] 08/27/2023 Office Visit Allergy & Immunology Brennan Wasserman MD [address] [place] [address] 11/01/2023 Appointment Radiology 11/01/2023 Appointment Radiology 11/01/2023 Hospital Encounter [facility] [place] [facility] [place] [facility] [address] [place] [address] 11/01/2023 [place] [facility] [place] [facility] [place] [address] [place] [address] ANESTHESIA FOR NON-INVASIVE IMAGING (MRI OR CT) 11/07/2023 Telemedicine Neurological Surgery Aime Casas MD [address] [place] [address] 11/23/2023 Office Visit Family Medicine Sotero Pizano MD [address] [place] [address] 11/27/2023 Office Visit Neurology Vernell Kimball PA-C [address] [place] [address] 12/10/2023 Nurse Only [facility] Nurse Annual [facility] [address] [place] [address] 12/19/2023 Office Visit Cardiology Amaya Singleton PA-C [address] [place] [address] 04/08/2024 Office Visit Hematology Oncology Mario Kong MD [address] [facility] [place] [address] 06/30/2024 Imaging Radiology Scheduled Procedures Name Priority [...] Additional history exists CKD PHOS USE SMARTSET 31622 03/16/202403/05, 03/29/2022, 05/13/2021, Additional history exists CKD HGB USE SMARTSET 02095 04/25/202404/25, 04/25/2023, 04/06/2023, Additional history exists Mammogram [...] this encounter Medical Devices Implanted Type Area Associate Professor Of History Device Identifier Shelf Expiration Date Model / Serial / Lot [employer] Microvention Hydrosoft 3d Implanted:Qty: 1 on 08/16/2018 by Aime Casas MD at [place] [facility] [place]/A: Head [employer] : INTERVENTIONA 07/05/2023 [id number] / [id number] / [id number] Hd Offset Hum 46x16 - [id number] Implanted:Qty: 1 on 09/28/2020 by Teresa Rehman DO at OR [facility] Left: Shoulder [employer] SURGICAL 06/17/2026 [id number] documented as of this encounter Advance Directives [...] and were consensually agreed upon. Care Teams Court Officer Relationship Specialty Start Date End Date March, Sotero Sutton MD [address] [place] [address] PCP - General Family Medicine 12/07/22 documented as of this encounter
--- OUTSIDE RECORDS SUMMARY | 2023-11-15 04:25 | External Medical Summary | Summary of Care ---
Author Name Unknown Organization [facility] Address [address] [place] [address] Phone [phone] Care Team Providers Care Construction Job Titles Name Role Phone Sotero Pizano MD Primary Care Provider Reason for Referral * Precert (Within 10 days (routine)) - Pending Review Specialty Diagnoses / Procedures Referred By Bharat t Referred To Contact Radiology Diagnoses Cervical radicular pain Procedures MRI C SPINE WO CONTRAST Elijah Nash DO [address] [place] [address] Referral ID Status Reason Start Date Expiration Date V isits Requested Visits Authorized [id number] Pending Review 08/21/2023 999 999 Reason for Visit * Reason Comments Neck Pain * Evaluate & Treat - Unlimited Visits (Within 30 days (routine)) - Authorized Specialty Diagnoses / Procedures Referred By Bharat dobbs Referred To Contact Pain Management / Pain Medicine Diagnoses Ulnar neuropathy of left upper extremity Cervical disc disorder with radiculopathy Christo Burk MD [address] [place] [address] Referral ID Status Reason Start Date Expiration Date Visits Requested Visits Authorized [id number] Authorized Specialty Services Required 06/28/2023 999 999 Encounter Details Date Type Department Care Team Description 08/14/2023 Office Visit [facility], [facility] [address] [place] [address] CousinElijah braden, [address] [place] [address] Cervical radicular pain* Allergies Active Allergy Reactions Severity Noted Date [...] as of this encounter (statuses as of 08/14/2023) Medications Medication Sig Dispensed Refills Start Date End Date Status CPAP 16 % every night at bedtime. 0 Active Compressor NebulizerIndication s:Chronic bronchitis with wheezing (HCC) Inhale via nebulizer . Use as directed. 1 Each 1 02/24/2022 Active Vitamin D (Ergocalciferol) 1.25 MG (61317 UT) Oral Capsule TAKE ONE CAPSULE BY [...] the morning. 90 Tablet 3 07/29/2023 Active rOPINIRole HCl 2 MG Oral Tablet (Requip) TAKE ONE TABLET BY MOUTH IN THE MORNING, ONE AT NOON AND ONE BEFORE BEDTIME. TAKE WITH FOOD. 270 Tablet 3 07/29/2023 Active Torsemide 10 MG [...] to MRI 1 Tablet 0 08/14/2023 Active documented as of this encounter (statuses as of 08/14/2023) Active Problems Problem Noted Date Iron deficiency [...] as of this encounter (statuses as of 08/14/2023) Resolved Problems Problem Noted Date Resolved Date [...] as of this encounter (statuses as of 08/14/2023) Immunizations Name Administration Dates Next Due COVID-19 [...] as of this encounter Progress Notes * Elijah Kan Cousins, DO - 08/14/2023 3:54 PM EDT Name: Kristen Garcia Date: 08/14/2023 HPI: Kristen Garcia is a 68 year old female seen in the pain management clinic for evaluation of not new complain of pain in the right shoulder and upper arm with some aching in the right trapezius. He also has pain in the left medial elbow with intense numbness and tingling into the ulnar aspect of the left forearm and hand. She has less significant numbness and tingling in the ulnar aspect of the right hand. She does not have any painful symptomatology below the elbow. She denies loss of dexterity in hands although she does acknowledge dropping objects because of the numbness. She was seen recently for orthopedic evaluation and EMG had been consistent with both ulnar neuropathy. There was concern, however that this might represent a cervical radicular syndrome and she was sent for my review today. She is not had imaging of the cervical spine since 2015. She did have a coil placement for cerebral aneurysm in 2018 but did have a follow-up MR a of the brain and also MRIs of the shoulder since that time. Patient does acknowledge claustrophobic concerns in wishes to have open MRI if imaging is necessary and will require Ativan. History: Past Medical History: Diagnosis Date Anxiety [...] performed [place] Cas[place] [facility] [place]OTID (INTERNAL) ARTERY CATHETHER PLACEMENT Bilateral 01/23/2019 CATHETER PLACEMENT INTERNAL CAROTID ARTERY performed by Aime Casas MD at [facility] CATHETER OCCLUSION/EMBOLIZATION,MUSICAL PERFORMER N/A 08/16/2018 TRANSCATHETER PERMANENT ARTERIAL OCCLUSION CENTRAL NERVOUS SYSTEM performed by Aime Casas MD at [facility] 1982 Delivery Only COLONOSCOPY, DIAGNOSTIC (RECTUM) 09/05/2016 adenomatous polyps, diverticulosis, repeat 5 yrs/[facility] COLONOSCOPY, DIAGNOSTIC (RECTUM) 06/02/2020 fair prep, normal / [facility] COLONOSCOPY, DIAGNOSTIC (RECTUM) N/A 08/11/2022 [facility], colonoscopy prep-fair, hemorrnoids on perianal exam , otherwise normal / no specimens collected / EGD, FLEXIBLE, DIAGNOSTIC 06/02/2020 erosive gastropathy / [facility] EGD, FLEXIBLE, DIAGNOSTIC N/A 08/11/2022 [facility], EGD, normal scope / no specimens collected / EXPLORATION OF ABDOMEN 1973 Exploratory Of Abdomen HEMORRHOIDECTOMY, INTERNAL W/ BANDING Hemorrhoid(S) Ligation matildeelli INFORMATION 1976/. labor and delivery x 2 INFORMATION 08/16/2018 x2 STENTS Terumo MicroVention LVIS Jr Intraluminal Support Device model #330378-[id number] INFORMATION 08/16/2018 x2 STENTS Terumo MicroVention LVIS Jr Intraluminal Support Device model# 108563-[id number] INFORMATION 08/16/2018 COIL Terumo MicroVention Hydrosoft 3D model# 7220-5811 INFORMATION 08/16/2018 COIL Terumo MicroVention Hydrosoft 3D model# 2253-0447 INJECTION CERVICAL/THORACIC 08/02/2016 INJECTION SPINE LUMBAR CERVICAL OR THORACIC performed by Elijah Nash DO at OR [facility] INTRACRANIAL ARTERIES CATH PLACEMENT N/A 08/16/2018 CATHETER PLACEMENT EACH INTRACRANIAL BRANCH OF THE INTERNAL CAROTID OR VERTEBRAL ARTERIES performedby Aime Cas[place] [facility] [place]TRACRANIAL INTRAVASCULAR STENT,INCL ANGIO N/A 08/16/2018 TRANSCATHETER PLACEMENT OF INTRAVASCULAR STENTS, INTRACRANIAL performed [place] Aime Cas[place] [facility] [place] LIGATION/BIOPSY OF TEMPORAL ARTERY Left 06/05/2018 [facility] RECONSTRUCT/REPLACE SHOULDER JOINT Left 09/28/2020 ARTHROPLASTY TOTAL SHOULDER performed by Teresa Rehman DO at OR [facility] REMOVAL OF APPENDIX 1974 Appendectomy REMOVAL OF OVARY/OVIDUCT(S) 1983 Ovary/Tube(S) Removal REMOVAL OF TONSILS, UNDER AGE 13 REMOVE TENDON SHEATH LESION, HAND Right 12/01/2014 EXCISION LESION TENDON SHEATH OR CAPSULE HAND OR FINGER performed by Javi Bishop MD at OR [facility] REVISE UPPER EYELID/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" SACROILIAC JOINT INJECT W/GUIDANCE 01/08/2017 INJECTION SACROILIAC JOINT performed by Elijah Nash DO at OR [facility] SACROILIAC JOINT INJECT W/GUIDANCE 02/28/2018 INJECTION SACROILIAC JOINT performed by Elijah Nash DO at OR [facility] TOTAL HYSTERECTOMY 1984 ANA (Total Abdominal Hysterectomy) Bleeding VERTEBRAL ARTERY CATHETER PLACEMENT Bilateral 07/15/2018 CATHETER PLACEMENT VERTEBRAL ARTERY, performed by Aime Casas MD at [facility] VERTEBRAL ARTERY CATHETER PLACEMENT Bilateral 01/23/2019 CATHETER PLACEMENT VERTEBRAL ARTERY, performed [place] Aime Cas[place] [facility] [place] Current Outpatient Medications Medication Sig Dispense Refill Fluticasone Propionate 50 MCG/ACT Nasal Suspension (Flonase) Administer 2 Sprays into nostril in the morning. Proventil HFA 108 (90 Base) MCG/ACT Inhalation Aerosol Solution Inhale 2 Puffs by mouth every 4 hours as needed for Congestion, Cough or Wheezing. 18 g 0 Vitamin D3 25 MCG (1000 UT) Oral Tablet Chewable Take 2,000 Units by mouth in the morning. Senna 8.6 MG Oral Tablet Take 1 Tablet by mouth in the morning. Pregabalin 25 MG Oral Capsule (Lyrica) Take 2 capsule in the am, and 2 capsules in pm. 120 Capsule 3 Aspirin 81 MG Oral Tablet Delayed Release (RA Aspirin EC) Take 1 Tablet by mouth in the morning. 90Tablet 3 Atorvastatin Calcium 10 MG Oral Tablet (Lipitor) Take 1 Tablet by mouth in the morning. 90 Tablet 3 Docusate Sodium 100 MG Oral Capsule (Colace) Take 1 Capsule by mouth every evening. 90 Capsule 3 Losartan Potassium 25 MG Oral Tablet [...] mouth in the morning. 90 Tablet 3 rOPINIRole HCl 2 MG Oral Tablet (Requip) TAKE ONE TABLET BY MOUTH IN THE MORNING, ONE AT NOON AND ONE BEFORE BEDTIME. TAKE WITH FOOD. 270 Tablet 3 Torsemide 10 MG Oral Tablet (Demadex) take 2 tablets (20 mg) in the morning and 1 tablet (10 mg) inthe evening 90 Tablet 3 traZODone HCl 150 MG Oral Tablet (Desyrel) Take 1 Tablet by mouth at bedtime. 90 Tablet 3 Vitamin B-12 1000 MCG Oral Tablet (Cyanocobalamin) Take 1 Tablet by mouth in the morning. 90 Tablet3 Ipratropium-Albuterol 0.5-2.5 (3) MG/3ML Inhalation Solution (Duoneb) Inhale 3 mL via nebulizer in the morning and 3 mL at noon and 3 mL in the evening and 3 mL before bedtime. 1080 mL 1 LORazepam 1 MG Oral Tablet (Ativan) Take one pill, one half hour prior to MRI 1 Tablet 0 CPAP 16 % every night at bedtime. Compressor Nebulizer Inhale via nebulizer . Use as directed. 1 Each 1 Vitamin D (Ergocalciferol) 1.25 MG (61366 UT) Oral Capsule TAKE ONE CAPSULE BY MOUTH MONTHLY 12 Capsule 0 Triamcinolone Acetonide 0.5 % External Cream [...] MOUTH EVERY 8 HOURS IF NEEDED FOR [id number] Tablet 0 oxygen IN GAS Use 2 L/min(Oxygen) as directed at bedtime. DIURETIC TITRATION PLAN If no improvement on day 3, contact heart failure managing provider. 1 Each0 Meclizine HCl 12.5 MG Oral Tablet (Antivert) TAKE 1 TABLET BY MOUTH THREE TIMES DAILY NEEDED fordizziness. 30 Tablet 1 No current facility-administered medications for this visit. Review of patient's allergies indicates: Allergen Reactions Requip [Ropinirole Hcl] Tachycardia Cymbalta [Duloxetine Hcl] Nausea/vomiting and Rash Dyazide [...] [Acetaminophen] Restless legs are worse when taking. Social History Tobacco Use Smoking Status Former Packs/day: 0.25 Years: 25.00 Pack years: 6.25 Types: Cigarettes Quit date: 12/12/2002 Years since quittin.6 Smokeless Tobacco Never Tobacco Comments was smoking 1/2 pack per day Social History Substance and Sexual Activity Alcohol Use Not Currently Comment: rarely PHYSICAL EXAM: There were no vitals taken for this visit. She can stand ambulate without gait abnormality. She is +5 over 5 motor function the upper extremities bilaterally. She is subjective since decreased sensation light touch in the left ulnar forearm and hand. Negative Bermudez's. She has +2 to +3 over 4 biceps and brachial radialis reflexes bilaterally +2 or 4 triceps reflexes. She does have some limitation range of motion testing of the right shoulder with pain provocation. Negative Spurling. ASSESSMENT: Left ulnar neuropathy Possible cervical radiculopathy Right shoulder pain Possible cervical radicular pain RECOMMENDATION: I will obtain MRI of the cervical spine to evaluate for sources of cervical radicular symptoms. I will obtain open MRI as requested she was given prescription for Ativan. 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 I will review results through telemedicine when comple panda. Elijah Nash DO 08/14/2023 3:54 PM I spent a total of 30-39 minutes (exact time 34 mins) on the date of service in preparation, delivery, and documentation of the care provided to Kristen Garcia excluding any time spent in the performance of separately billed services. documented in this encounter Nursing Notes * Belkis Cardenas LPN - 08/14/2023 3:10 PM EDT Patient presents with neck pain and b/l hand tingling/numbness x1yr No new imaging of cspine No recent cspine PT documented in this encounter Plan of Treatment Upcoming Encounters Date Type Specialty Care Team Description 08/22/2023 Office Visit Neurological Surgery Aime Casas MD [address] [place] [address] 08/24/2023 Home Visit [facility] Ladi Joseph RN [address] [facility] [address] 08/27/2023 Office Visit Allergy & Immunology Brennan Wasserman MD [address] [place] [address] 11/23/2023 Office Visit Family Medicine Sotero Pizano MD [address] [place] [address] 11/27/2023 Office Visit Neurology Vernell Kimball PA-C [address] [place] [address] 12/10/2023 Nurse Only [facility], Nurse [facility] [address] [place] [address] 12/19/2023 Office Visit Cardiology Amaya Singleton [facility]-C [address] [facility] [place] [address] 04/08/2024 Office Visit Hematology Oncology Mario Kong MD [address] [place] [address] 06/30/2024 Imaging Radiology Scheduled Orders Name Type Priority Associated Diagnoses Orde r Schedule MRI C SPINE WO CONTRAST Medical Imaging Routine Cervical radicular pain Expected: 08/21/2023, Expires: 09/14/2024 Health Maintenance Due Date Last Done Comments Pneumococcal Vaccine: 65+ Years (2 - PCV) 02/24/2023 02/24/2022 Albumin/Creatinine Ratio 06/28/2023 06/28/2022 COVID-19 Vaccine (3 - season) 2023 02/17/2021, 01/27/2021 Influenza Vaccine (FLU shot) (#1) 2023 09/08/2021, 07/29/2020 Depression Screening 12/07/2023 12/07/2022 GFR 12/22/2023 06/21/2023, 06/0 12/2022, 03/21/2023, Additional history exists CKD PHOS USE SMARTSET 08912 03/16/202403/05, 03/29/2022, 05/13/2021, Additional history exists CKD HGB USE SMARTSET 92100 04/25/202404/25, 04/25/2023, 04/06/2023, Additional history exists Mammogram [...] this encounter Medical Devices Implanted Type Area Enrollment Representative Device Identifier Shelf Expiration Date Model / Serial / Lot Terumo Microvention Hydrosoft 3d Implanted:Qty: 1 on 08/16/2018 [place] Cas[place] [facility] [place] Head [employer] : INTERVENTIONA 07/05/2023 [id number] / [id number] / [id number] Hd Offset Hum 46x16 - [id number] Implanted:Qty: 1 on 09/28/2020 by Teresa Rehman, at OR [facility] Left: Shoulder DJO SURGICAL 06/17/2026 [id number] documented as of this encounter Visit Diagnoses Diagnosis Cervical radicular pain- Primary Brachial neuritis or radiculitis nos documented in [...] and were consensually agreed upon. Care Teams Construction Job Titles Relationship Specialty Start Date End Date March, Sotero Sutton MD [address] [place] [address] PCP - General Family Medicine 12/07/22 documented as of this encounter
--- OUTSIDE RECORDS SUMMARY | 2023-11-15 04:25 | External Medical Summary | Summary of Care ---
Author Name Unknown Organization [facility] Address [address] [facility] [place] [address] Phone [phone] Care Team Providers Care Engineering Analyst Name Role Phone Sotero Pizano MD Primary Care Provider [phone] Reason for Visit * Reason Onset Date Comments [facility]: Maintenance 08/21/2023 Encounter Details Date Type Department Care Team Description 08/21/2023 Telephone [facility], [facility] [address] [facility] [place] [address] Giselle Lopez CRNP [address] [facility] [place] [address] [facility]: Maintenance Allergies Active Allergy [...] 02/24/2022 Active Vitamin D (Ergocalciferol) 1.25 MG (19048 UT) Oral Capsule TAKE ONE CAPSULE BY [...] mRNA, LNP-s, No Pre serve, 2-Dose Series ([employer]) 02/17/2021,01/27/2021 Pneumococcal Polysaccharide PPV23 (Pneumovax) SEASONAL INFLUENZA, [...] encounter Miscellaneous Notes * Addendum Note - HECTOR Acosta - 08/21/2023 4:48 PM EDTAddended by: GISELLE LOPEZ on: 08/21/2023 04:48 PM Modules accepted: Orders * Telephone Encounter - HECTOR Acosta - 08/21/2023 4:47 PM EDT DMe order placed for oxygen. Please fax order and nocturnal pulse ox testing results to [facility] per pt request * Telephone Encounter - Sheri Taylor RN - 08/21/2023 3:23 PM EDT Call to patient to let her know that her overnight pulse ox showed she qualifies for O2 at night. Patient already has oxygen, but needs a new order so she can switch to [facility] for her oxygen. She said that is the only way she can switch DME companies. Routed to HECTOR [place]. RN [facility] hat ironer [phone] * Telephone Encounter - HECTOR Acosta - 08/21/2023 10:49 AM EDT Overnight pulse ox showed she qualifies for O2 at night. Does she have this already? Does she need order for O2 or does this just need submitted to [employer] company to qualify for oxygen she already has at home? documented in this encounter Plan of Treatment Upcoming Encounters Date Type Specialty Care Team Description 08/24/2023 Home Visit [facility] Ladi Joseph RN [address] [place] [address] 08/27/2023 Office Visit Allergy & Immunology Brennan Wasserman MD [address] [place] [address] 11/01/2023 Appointment Radiology 11/01/2023 Appointment Radiology 11/01/2023 [place] [facility] [place] [address] [place] [address] 11/01/2023 [place] [facility] [place] [address] [place], [place] [id number] ANESTHESIA FOR NON-INVASIVE IMAGING (MRI OR CT) 11/07/2023 Telemedicine Neurological Surgery Aime Casas MD [address] [place] [address] 11/23/2023 Office Visit Family Medicine Sotero Pizano MD [address] [facility] [place] [address] 11/27/2023 Office Visit Neurology Vernell Kimball PA-C [address] [place] [address] 12/10/2023 Nurse Only [facility]illary [place], Nurse [facility] [address] [facility] [address] 12/19/2023 Office Visit Cardiology Amaya Singleton PA-C [address] [place] [address] 04/08/2024 Office Visit [facility]ematology Oncology [facility] [address] [facility] [address] 06/30/2024 Imaging Radiology Scheduled Procedures Name Priority [...] Additional history exists CKD PHOS USE SMARTSET 64971 03/16/202403/05, 03/29/2022, 05/13/2021, Additional history exists CKD HGB USE SMARTSET 85662 04/25/202404/25, 04/25/2023, 04/06/2023, Additional history exists Mammogram [...] this encounter Medical Devices Implanted Type Area Reimbursement Counselor Device Identifier Shelf Expiration Date Model / Serial / Lot Terumo Microvention Hydrosoft 3d Implanted:Qty: 1 on 08/16/2018 by Aime Casas MD at [place] [facility] [place]A: Head [employer] : INTERVENTIONA 07/05/2023 [id number] / [id number] / [id number] Hd Offset Hum 46x16 - [id number] Implanted:Qty: 1 on 09/28/2020 by Teresa Rehman DO at OR [facility] Left: Shoulder DJO SURGICAL 06/17/2026 [id number] / / [id number] documented as of this encounter Visit Diagnoses Diagnosis Nocturnal hypoxia- Primary Hypoxemia Cervical radicular pain Brachial neuritis or radiculitis [...] and were consensually agreed upon. Care Teams Engineering Analyst Relationship Specialty Start Date End Date March, Sotero Sutton MD [address] [place] [address] PCP - General Family Medicine 12/07/22 documented as of this encounter
--- OUTSIDE RECORDS SUMMARY | 2023-11-15 04:25 | External Medical Summary | Summary of Care ---
Author Name Unknown Organization [facility] Address [address] [place] [address] Phone [phone] Care Team Providers Care Surface To Air Weapons Officer Name Role Phone Sotero Pizano MD Primary Care Provider [phone] Reason for Referral * Precert (Within 10 days (routine)) - Pending Review Specialty Diagnoses / Procedures Referred By Contac t Referred To Contact Radiology Diagnoses Cerebral aneurysm, nonruptured Procedures MRA HEAD W WO CONTRAST Javi Parikh PA-C [address] [place] [address] Referral ID Status Reason Start Date Expiration Date V isits Requested Visits Authorized [id number] Pending Review 08/22/2023 999 999 Encounter Details Date Type Department Care Team Description 08/17/2023 Orders Only Neurosurgery, [facility] [address] [place] [address] Javi Parikh PA-C [address] [place] [address] Cerebral aneurysm, nonruptured* Allergies Active Allergy Reactions Severity Noted Date [...] as of this encounter (statuses as of 08/17/2023) Medications Medication Sig Dispensed Refills Start Date End Date Status CPAP 16 % every night at bedtime. 0 Active Compressor NebulizerIndication s:Chronic bronchitis with wheezing (HCC) Inhale via nebulizer . Use as directed. 1 Each 1 02/24/2022 Active Vitamin D (Ergocalciferol) 1.25 MG (51446 UT) Oral Capsule TAKE ONE CAPSULE BY [...] in the morning. 90 Tablet 07/29/2023 Active DIURETIC TITRATION PLAN If no [...] as of this encounter (statuses as of 08/17/2023) Active Problems Problem Noted Date Iron deficiency [...] as of this encounter (statuses as of 08/17/2023) Resolved Problems Problem Noted Date Resolved Date [...] as of this encounter (statuses as of 08/17/2023) Immunizations Name Administration Dates Next Due COVID-19 [...] Neurological Surgery Aime Casas MD [address] [place] [address] 08/24/2023 Home Visit [facility] Ladi Joseph RN [address] [place] [address] 08/27/2023 Office Visit [facility] Immunology [facility] [address] [facility] [address] 11/01/2023 Appointment Radiology 11/01/2023 Hospital Encounter [place] [facility] [place] [address] [facility] [place] [address] 11/01/2023 Surgery [place] [facility] [place] [address] [facility] [place] [address] ANESTHESIA FOR NON-INVASIVE IMAGING (MRI OR CT) 11/23/2023 Office Visit Family Medicine Sotero Pizano MD [address] [place] [facility] [place] [address] 11/27/2023 Office Visit Neurology Vernell Kimball PA-C [address] [facility] [place] [phone] 12/10/2023 Nurse Only [facility] [address] [facility] [address] 12/19/2023 Office Visit Cardiology Amaya Singleton PA-C [address] [place] [address] 04/08/2024 Office Visit Hematology Oncology Mario Kong MD [address] [place] [address] 06/30/2024 Imaging Radiology Scheduled Orders Name Type Priority Associated Diagnoses Orde r Schedule MRA HEAD W WO CONTRAST Medical Imaging Routine Cerebral aneurysm, nonruptured Expected: 08/22/2023 (Approximate), Expires: 09/17/2024 Scheduled Procedures Name Priority Associated Diagnoses Date/Ti me ANESTHESIA FOR NON-INVASIVE IMAGING (MRI OR CT) Cervical radicular pain 11/01/2023 3:20 PM EST Health Maintenance Due Date Last Done Comments Pneumococcal Vaccine: 65+ Years (2 - PCV) 02/24/2023 02/24/2022 Albumin/Creatinine Ratio 06/28/2023 06/28/2022 COVID-19 Vaccine (3 - 2022- season) 2023 02/17/2021, 01/27/2021 Influenza Vaccine (FLU shot) (#1) 2023 09/08/2021, 07/29/2020 Depression Screening 12/07/2023 12/07/2022 GFR 12/22/2023 06/21/2023, 06/12/2022, 03/21/2023, Additional history exists CKD PHOS USE SMARTSET 41904 03/16/202403/05, 03/29/2022, 05/13/2021, Additional history exists CKD HGB USE SMARTSET 71523 04/25/202404/25, 04/25/2023, 04/06/2023, Additional history exists Mammogram [...] this encounter Medical Devices Implanted Type Area Customs Examiner Device Identifier Shelf Expiration Date Model / Serial / Lot Terumo Microvention Hydrosoft 3d Implanted:Qty: 1 on 08/16/2018 [place] [facility] [place] [employer] : INTERVENTIONA 07/05/2023 [id number] / [id number] / [id number] Hd Offset Hum 46x16 - [id number] Implanted:Qty: 1 on 09/28/2020 by Teresa Rehman DO at OR [facility] Left: Shoulder DJO SURGICAL 06/17/2026 [id number] documented as of this encounter Visit Diagnoses Diagnosis Cerebral aneurysm, nonruptured- Primary Cervical radicular pain Brachial neuritis or [...] and were consensually agreed upon. Care Teams Surface To Air Weapons Officer Relationship Specialty Start Date End Date March, Sotero Sutton MD [address] [place], [place] [phone] PCP - General Family Medicine 12/07/22 documented as of this encounter
--- OUTSIDE RECORDS SUMMARY | 2023-11-15 04:25 | External Medical Summary | Summary of Care ---
Author Name Unknown Organization [facility] Address [address] [place] [address] Phone [phone] Care Team Providers Care Assistant Professor Of Nursing Name Role Phone Maine Dumont MD Primary Care Provider [phone] Reason for Visit * Reason Comments eRx-Medication Refill Encounter Details Date Type Department Care Team Description 08/15/2023 Refill [facility] [address] [place] [address] Maine Dumont MD [address] [place] [address] Allergies Active Allergy Reactions Severity Noted Date [...] as of this encounter (statuses as of 08/20/2023) Medications Medication Sig Dispensed Refills Start Date End Date Status CPAP 16 % every night at bedtime. 0 Active Compressor NebulizerIndicati ons:Chronic bronchitis with wheezing (HCC) Inhale via nebulizer . Use as directed. 1 Each 1 2 Active Vitamin D (Ergocalciferol) 1.25 MG (34807 UT) Oral Capsule TAKE ONE CAPSULE BY [...] the morning. 90 Tablet 3 3 Active Torsemide 10 MG [...] for dizziness. 30 Tablet 1 3 Active LORazepam 1 MG Oral Tablet (Ativan) Take one pill, one half hour prior to MRI 1 Tablet 0 3 Active rOPINIRole HCl 2 MG Oral Tablet (Requip) TAKE 1 TABLET BY MOUTH THREE TIMES DAILY WITH FOOD every morning, at noon, and before bedtime 90 Tablet 0 3 Active rOPINIRole HCl 2 MG Oral Tablet (Requip) TAKE ONE TABLET BY MOUTH IN THE MORNING, ONE AT NOON AND ONE BEFORE BEDTIME. TAKE WITH FOOD. 270 Tablet 3 3 08/20/20 23 Discontinued documented as of this encounter (statuses as of 08/20/2023) Active Problems Problem Noted Date Iron deficiency [...] as of this encounter (statuses as of 08/20/2023) Resolved Problems Problem Noted Date Resolved Date [...] as of this encounter (statuses as of 08/20/2023) Immunizations Name Administration Dates Next Due COVID-19 mRNA, LNP-s, No Pre serve, 2-Dose Series ([employer]) 02/17/2021,01/27/2021 Pneumococcal Polysaccharide PPV23 (Pneumovax) SEASONAL INFLUENZA, [...] encounter Miscellaneous Notes * Telephone Encounter - Maine Dumont MD - 08/20/2023 8:26 AM EDTSigned Prescriptions: Disp Refills rOPINIRole HCl 2 MG Oral Tablet (Requip) 90 Tab*0 Sig: TAKE 1 TABLET BY MOUTH THREE TIMES DAILY WITH FOOD every morning, at noon, and before bedtime Authorizing Provider: MAINE DUMONT * Telephone Encounter - Karla, E-Rx Ss Inbound - 08/19/2023 6:03 AM EDT Pending Prescriptions: Disp Refills rOPINIRole HCl 2 MG Oral Tablet [Pharmacy *90 Tab*0 Sig: TAKE 1 TABLET BY MOUTH THREE TIMES DAILY WITH FOOD every morning, at noon, and before bedtime * Telephone Encounter - Interface, E-Rx Ss Inbound - 08/17/2023 6:01 AM EDT Pending Prescriptions: Disp Refills rOPINIRole HCl 2 MG Oral Tablet [Pharmacy *90 Tab*0 Sig: TAKE 1 TABLET BY MOUTH THREE TIMES DAILY WITH FOOD every morning, at noon, and before bedtime * Telephone Encounter - Sheryl Beach LPN - 08/16/2023 8:32 AM EDTPending Prescriptions: Disp Refills rOPINIRole HCl 2 MG Oral Tablet [Pharmacy *90 Tab*0 Sig: TAKE 1 TABLET BY MOUTH THREE TIMES DAILY WITH FOOD every morning, at noon, and before bedtime * Telephone Encounter - Sheryl Beach LPN - 08/16/2023 8:31 AM EDT Pending Prescriptions: Disp Refills rOPINIRole HCl 2 MG Oral Tablet (Requip) *90 Tab*0 Sig: TAKE 1 TABLET BY MOUTH THREE TIMES DAILY WITH FOOD every morning, at noon, and before bedtime Last Visit: 05/23/2023 (in office), 12/27/2020 (telemedicine) Next Visit: 11/23/2023 Last date the medication was ordered: 07/29/2023- requesting different pharmacy Patient Active Problem List Diagnosis Code Hirsutism [...] anemia due to chronic blood loss D50.0 Labs: Lab Results Component Value Date/Time CREATININE - [facility] 1.4 (H) 06/21/2023 02:50 PM CREATININE - [facility] 1.1 (H) 10/05/2020 02:35 PM CREATININE KYLAH 52 10/22/2019 12:04 PM CREATININE, RANDOM URINE - [facility] 21 06/28/2022 01:22 PM CREATININE, RANDOM URINE - [facility] 30 11/15/2018 03:30 PM CREATININE-OUTSIDE LAB 1.06 03/25/2019 12:00 AM Lab Results Component Value Date/Time POTASSIUM - [facility] 3.8 06/21/2023 02:50 PM POTASSIUM - [facility] 3.9 10/05/2020 02:35 PM POTASSIUM-OUTSIDE LAB 3.7 03/25/2019 12:00 AM Lab Results Component Value Date/Time TSH - [facility] 4.49 (H) 04/06/2023 09:32 AM TSH - [facility] 3.24 04/28/2020 11:03 AM TSH - OUTSIDE LAB 2.280 03/25/2019 12:00 AM Lab Results Component Value Date/Time LDL CHOLESTEROL (CALCULATED) - [facility] 79 11/14/2022 08:22 AM LDL CHOLESTEROL (CALCULATED) - [facility] 139 (H) 10/21/2021 10:55 AM LDL CHOLESTEROL (CALCULATED) - [facility] 84 03/05/2019 02:30 PM LDL CHOLESTEROL (CALCULATED) - [facility] 126 11/16/2017 12:33 PM LDL CHOLESTEROL (DIRECT MEASURE) - [facility] 121 04/02/2020 02:05 PM LDL CHOLESTEROL (DIRECT MEASURE) - [facility] NOT APPLICABLE 08/19/2012 12:50 PM Lab Results Component Value Date/Time ALT - [facility] 18 03/21/2023 08:09 AM ALT - [facility] 12 10/05/2020 02:35 PM ALT-OUTSIDE LAB 19 07/12/2016 12:00 AM Hemoglobin AIC Results: Lab Results Component Value Date/Time HEMOGLOBIN A1C - [facility] 5.5 03/27/2023 10:44 AM HEMOGLOBIN A1C - [facility] 5.6 04/04/2017 11:29 AM HEMOGLOBIN A1C - [facility] 5.5 10/23/2016 11:08 AM HEMOGLOBIN A1C - [facility] 5.5 01/22/2015 01:30 PM * Telephone Encounter - Sarah Echevarria - 08/16/2023 4:04 AM EDTPending Prescriptions: Disp Refills rOPINIRole HCl 2 MG Oral Tablet [Pharmacy *90 Tab*0 Sig: TAKE 1TABLET BY MOUTH THREE TIMES DAILY WITH FOOD every morning, at noon, and before bedtime documented in this encounter Plan of Treatment Upcoming Encounters Date Type Specialty Care Team Description 08/22/2023 Office Visit Neurological Surgery Aime Casas MD [address] [place] [address] 08/24/2023 Home Visit [facility] Ladi Joseph, RN [address] [place] [address] 08/27/2023 Office Visit Allergy & Immunology Brennan Wasserman MD [address] [place] [address] 11/01/2023 Appointment Radiology 11/01/2023 Hospital Encounter Surgery [facility] Surgery [address] [place] [address] 11/01/2023 Surgery Surgery [facility], In And Out Surgery [address] [place] [address] ANESTHESIA FOR NON-INVASIVE IMAGING (MRI OR CT) 11/23/2023 Office Visit Family Medicine Maine Dumont MD [address] [place] [address] 11/27/2023 Office Visit Neurology Vernell Kimball PA-C [address] [facility] [place] [address] 12/10/2023 Nurse Only [facility] Nurse [facility] [address] [place] [address] 12/19/2023 Office Visit Cardiology Amaya Singleton PA-C [address] [place] [address] 04/08/2024 Office Visit Hematology Oncology Mario Kong MD [address] [facility] [place] [address] 06/30/2024 Imaging Radiology Scheduled Procedures Name Priority [...] Additional history exists CKD PHOS USE SMARTSET 69982 03/16/202403/05, 03/29/2022, 05/13/2021, Additional history exists CKD HGB USE SMARTSET 83143 04/25/202404/25, 04/25/2023, 04/06/2023, Additional history exists Mammogram [...] this encounter Medical Devices Implanted Type Area Furniture Detailer Device Identifier Shelf Expiration Date Model / Serial / Lot Terumo Microvention Hydrosoft 3d Implanted:Qty: 1 on 08/16/2018 by Aime Casas MD at [place] [facility] [place]A: Head [employer] : INTERVENTIONA 07/05/2023 [id number] / [id number] / [id number] Hd Offset Hum 46x16 - [id number] Implanted:Qty: 1 on 09/28/2020 by Teresa Rehman DO at OR [facility] Left: Shoulder DJO SURGICAL 06/17/2026 520-46-31 6 / / [id number] documented as of this encounter Advance Directives [...] and were consensually agreed upon. Care Teams Assistant Professor Of Nursing Relationship Specialty Start Date End Date March, Maine Sutton MD [address] [place] [address] PCP - General Family Medicine 12/07/22 documented as of this encounter
--- OUTSIDE RECORDS SUMMARY | 2023-11-15 04:26 | External Medical Summary | Summary of Care ---
Author Name Unknown Organization [facility] Address [address] [place] [address] Phone [phone] Care Team Providers Care Highway Patrol Pilot Name Role Phone Sotero Pizano MD Primary Care Provider [phone] Reason for Visit * Reason Onset Date Comments Medication Refill 08/03/2023 Medication Problem 08/03/2023 Encounter Details Date Type Department Care Team Description 08/03/2023 Refill Pharmacy Call Center [address] [facility] [place] [address] Sotero Pizano MD [address], [place] [id number] Chronic bronchitis with wheezing (HCC) Allergies Active [...] as of this encounter (statuses as of 08/04/2023) Medications Medication Sig Dispensed Refills Start Date [...] 03/15/2022 Active Vitamin D (Ergocalciferol) 1.25 MG (84768 UT) Oral Capsule TAKE ONE CAPSULE BY [...] as of this encounter (statuses as of 08/04/2023) Active Problems Problem Noted Date Iron deficiency [...] as of this encounter (statuses as of 08/04/2023) Resolved Problems Problem Noted Date Resolved Date [...] as of this encounter (statuses as of 08/04/2023) Immunizations Name Administration Dates Next Due COVID-19 [...] encounter Miscellaneous Notes * Telephone Encounter - Arnaldo Leigh RP - 08/04/2023 2:26 PM EDTRefused Prescriptions: Disp Refills Ipratropium-Albuterol 0.5-2.5 (3) MG/3ML I*1080 mL3 Sig: Inhale 3 mL via nebulizer in the morning and 3 mL at noon and 3 mL in the evening and 3 mL before bedtime. Refused By: ARNALDO LEIGH Reason for Refusal: Duplicate Request * Telephone Encounter - Esme Moran, senior relationship manager - 08/03/2023 4:08 PM EDT Did you pend patient's preferred pharmacy and medication before forwarding?yes Pharmacy: [facility] Pending Prescriptions: Disp Refills [...] Encounters Date Type Specialty Care Team Description 08/05/2023 Scheduled Telephone [facility], Nurse [address] [place] [address] 08/07/2023 Office Visit Pain Medicine Elijah Nash DO [address] [place] [address] 08/22/2023 Office Visit Neurological Surgery Aime Casas MD [address] [place] [address] 08/24/2023 Home Visit [facility] Ladi Joseph RN [address] [place] [address] 08/27/2023 Office Visit Allergy & Immunology Brennan Wassemran MD [address] [place] [address] 11/23/2023 Office Visit Family Medicine Sotero Pizano MD [address] [place] [address] 11/27/2023 Office Visit Neurology Vernell Kimball PA-C [address] [facility] [place] [phone] 12/10/2023 Nurse Only [facility], Nurse [facility] [address] [place] [address] 12/19/2023 Office Visit Cardiology Amaya Singleton PA-C [address] [place] [address] 04/08/2024 Office Visit Hematology Oncology Mario Kong MD [address] [place] [address] 06/30/2024 Imaging Radiology Health Maintenance Due Date Last Done Comments COVID-19 Vaccine (3 - Pfizer series) 04/14/2021 02/17/2021, 01/27/2021 Pneumococcal Vaccine: 65+ Years (2 - PCV) 02/24/2023 02/24/2022 Albumin/Creatinine Ratio 06/28/2023 06/28/2022 Influenza Vaccine (FLU shot) (#1) 2023 09/08/2021, 07/29/2020 Depression Screening 12/07/2023 12/07/2022 GFR 12/22/2023 06/21/2023, 12/2022, 03/21/2023, Additional history exists CKD PHOS USE SMARTSET 87641 03/16/202403/05, 03/29/2022, 05/13/2021, Additional history exists CKD HGB USE SMARTSET 97701 04/25/202404/25, 04/25/2023, 04/06/2023, Additional history exists Mammogram [...] this encounter Medical Devices Implanted Type Area Wedding Day Coordinator Device Identifier Shelf Expiration Date Model / Serial / Lot [employer] Microvention Hydrosoft 3d Implanted:Qty: 1 on 08/16/2018 by Aime Casas MD at OR [facility] N/A: Head [employer] : INTERVENTIONA 07/05/2023 [id number] / [id number] / [id number] Hd Offset Hum 46x16 - [id number] Implanted:Qty: 1 on 09/28/2020 by Teresa Rehman DO at OR [facility] Left: Shoulder DJO SURGICAL 06/17/2026 [id number] documented as of this encounter Visit Diagnoses [...] and were consensually agreed upon. Care Teams Highway Patrol Pilot Relationship Specialty Start Date End Date March, Sotero Sutton MD [address] [place] [address] PCP - General Family Medicine 12/07/22 documented as of this encounter
--- OUTSIDE RECORDS SUMMARY | 2023-11-15 04:26 | External Medical Summary | Summary of Care ---
Author Name Unknown Organization [facility] Address [address] [facility] [place] [address] Phone [phone] Care Team Providers Care Loss Prevention Guard Name Role Phone Sotero Pizano MD Primary Care Provider [phone] Reason for Visit * Reason Onset Date Comments [facility]: Maintenance 08/03/2023 Encounter Details Date Type Department Care Team Description 08/03/2023 Scheduled Telephone [facility], [facility] [address] [facility] [place] [address] Coordinator, [facility] [address] [place] [address] Allergies Active Allergy Reactions Severity Noted Date [...] as of this encounter (statuses as of 08/03/2023) Medications Medication Sig Dispensed Refills Start Date [...] 03/15/2022 Active Vitamin D (Ergocalciferol) 1.25 MG (52714 UT) Oral Capsule TAKE ONE CAPSULE BY [...] as of this encounter (statuses as of 08/03/2023) Active Problems Problem Noted Date Iron deficiency [...] as of this encounter (statuses as of 08/03/2023) Resolved Problems Problem Noted Date Resolved Date [...] as of this encounter (statuses as of 08/03/2023) Immunizations Name Administration Dates Next Due COVID-19 mRNA, LNP-s, No Pre serve, 2-Dose Series (Pfizer) 02/17/2021,01/27/2021 Pneumococcal Polysaccharide PPV23 (Pneumovax) Seasonal Influenza, PF, 6 mo ns & Above, IM , (Flulaval) 07/29/2020 Seasonal Influenza, Quadrivalent Hd (Fluzone Hd) [...] Telephone Encounter - Sheri Taylor RN - 08/03/2023 9:30 AM EDT Images from the original note were not included. [facility] Telephonic Nurse Follow-Up Call [facility] Subprogram: Focused Care Management (3-9 months) Follow Up Call Type: Routine follow up call / Status Check Acute issue requiring follow-up call: Other: Weight gain, DTP Objective: 07/25/2023 2:45 PM 07/03/2023 1:50 PM 06/19/2023 4:40 PM 06/19/2023 4:04 PM 06/19/2023 4:00 PM VITALS ACROSS ENCOUNTERS BP 116/68 126/62 102/62 110/60 Arterial Blood Pressure1 (ABP) 110/60 Arterial Blood Pressure2 (ART) 102/62 Pulse 75 70 75 Weight 114.9 kg 114.7 kg 117.3 kg BMI 41.53 kg/m2 41.43 kg/m2 42.4 kg/m2 Lab Results Component Value Date PROTEIN - [facility] 6.9 05/25/2023 No results found for: WBC AUTO - [facility], HGB - [facility], PLATELET AUTO - [facility] Lab Results Component Value Date SODIUM - [facility] 141 06/21/2023 POTASSIUM - [facility] 3.8 06/21/2023 CO2 - [facility] 32 06/21/2023 CREATININE - [facility] 1.4 (H) 06/21/2023 ESTIMATED GLOMERULAR FILTRATION RATE - [facility] 42 (L) 06/21/2023 No results found for: PRO BNP, LEFT VENTRICULAR EJECTION FRACTION Remote Patient Monitoring: AMC Scale: 256.3 Oxygen Needs: NO supplemental oxygen needs identified DME Needs: NO DME needs identified Medications: Current DTP: Double dose of Torsemide for 3 days Subjective: Condition Status: Improvement in symptoms but not at baseline Current Concerns: Spoke to patient this am. She said she is doing better than yesterday. Her weight today is 256.3 down from 258.7 (Down 2.4 lbs). Still some sob at times. Today is day 3 of DTP. Talked about food choices, seasoning food, other than using salt. Keeping fluids within limits. Disposition: Weekend call scheduled Future Visits Scheduled: Future Appointments-next 60 days Date/Time Provider Specialty Dept Phone 08/03/2023 3:00 PM [facility] [phone] 08/04/2023 11:30 AM Nurse [facility] [phone] 08/07/2023 2:40 PM (Arrive by 2:25 PM) Elijah Nash DO Pain Medicine [phone] 08/22/2023 3:00 PM (Arrive by 2:45 PM) Aime Casas MD Neurological Surgery [phone] 08/24/2023 4:00 PM Ladi Joseph RN [facility] [phone] 08/27/2023 3:00 PM (Arrive by 2:45 PM) Brennan Wasserman MD Allergy & Immunology [phone] 11/23/2023 2:40 PM (Arrive by 2:25 PM) Sotero Pizano MD Family Medicine [phone] 11/27/2023 2:00 PM (Arrive by 1:45 PM) Vernell Kimball PA-C Neurology [phone] 12/10/2023 3:30 PM Nurse [facility] [phone] 12/19/2023 11:00 AM (Arrive by 10:45 AM) Amaya Singleton PA-C Cardiology [phone] 04/08/2024 3:15 PM (Arrive by 3:00 PM) Mario Kong MD Hematology Oncology [phone] 06/30/2024 1:30 PM (Arrive by 1:15 PM) [facility] Radiology [phone] Routed to care team Sheri Taylor, JEREMY documented in this encounter Plan of Treatment Upcoming Encounters Date Type Specialty Care Team Description 08/04/2023 Scheduled Telephone [facility] [place], Nurse [place] [address] [place] [address] 08/07/2023 Office Visit Pain Medicine Elijah Nash DO [address] [place] [address] 08/22/2023 Office Visit Neurological Surgery Aime Casas MD [address] [place] [address] 08/24/2023 Home Visit [facility] Ladi Joseph RN [address] [place] [address] 08/27/2023 Office Visit Allergy & Immunology Brennan Wasserman MD [address] [place] [address] 11/23/2023 Office Visit Family Medicine [facility]izano [facility] [address] [facility] [address] 11/27/2023 Office Visit Neurology Vernell Kimball PA-C [address] [facility] [place] [phone] 12/10/2023 Nurse Only Nurse [facility] [address] [facility] [place] [address] 12/19/2023 Office Visit Cardiology Amaya Singleton PA-C [address] [place] [address] 04/08/2024 Office Visit [facility]ematology [facility]cology [facility] [address] [facility] [address] 06/30/2024 Imaging Radiology Health Maintenance Due Date Last Done Comments COVID-19 Vaccine (3 - Pfizer series) 04/14/2021 02/17/2021, 01/27/2021 Pneumococcal Vaccine: 65+ Years (2 - PCV) 02/24/2023 02/24/2022 Albumin/Creatinine Ratio 06/28/2023 06/28/2022 Influenza Vaccine (FLU shot) (#1) 2023 09/08/2021, 07/29/2020 Depression Screening 12/07/2023 12/07/2022 GFR 12/22/2023 06/21/2023, 06/12/2022, 03/21/2023, Additional history exists CKD PHOS USE SMARTSET 14713 03/16/202403/05, 03/29/2022, 05/13/2021, Additional history exists CKD HGB USE SMARTSET 62005 04/25/202404/25, 04/25/2023, 04/06/2023, Additional history exists Mammogram [...] this encounter Medical Devices Implanted Type Area Focusing Machine Operator Device Identifier Shelf Expiration Date Model / Serial / Lot Terumo Microvention Hydrosoft 3d Implanted:Qty: 1 on 08/16/2018 by Aime Casas MD at OR [facility] N/A: Head [employer] : INTERVENTIONA 07/05/2023 [id number] / [id number] / [id number] Hd Offset Hum 46x16 - [id number] Implanted:Qty: 1 on 09/28/2020 by Teresa Rehman DO at OR [facility] Left: Shoulder DJO SURGICAL 06/17/2026 520-46-31 6 / / [id number] documented as of this encounter Advance Directives [...] and were consensually agreed upon. Care Teams Loss Prevention Guard Relationship Specialty Start Date End Date March, Sotero Sutton MD [address] [place], [place] [phone] PCP - General Family Medicine 12/07/22 documented as of this encounter
--- OUTSIDE RECORDS SUMMARY | 2023-11-15 04:26 | External Medical Summary | Summary of Care ---
Author Name Unknown Organization [facility] Address [address] [place] [place] [address] Phone [phone] Care Team Providers Care Transfer Controller Name Role Phone Sotero Pizano MD Primary Care Provider [phone] Reason for Visit * Reason Onset Date Comments [facility]: Maintenance 08/05/2023 Encounter Details Date Type Department Care Team Description 08/05/2023 Scheduled Telephone [facility], [facility] [address] [place] [address] [facility], Nurse [facility] [address] [place] [address] Allergies Active Allergy Reactions Severity Noted Date [...] as of this encounter (statuses as of 08/05/2023) Medications Medication Sig Dispensed Refills Start Date [...] 03/15/2022 Active Vitamin D (Ergocalciferol) 1.25 MG (75897 UT) Oral Capsule TAKE ONE CAPSULE BY [...] as of this encounter (statuses as of 08/05/2023) Active Problems Problem Noted Date Iron deficiency [...] as of this encounter (statuses as of 08/05/2023) Resolved Problems Problem Noted Date Resolved Date [...] as of this encounter (statuses as of 08/05/2023) Immunizations Name Administration Dates Next Due COVID-19 [...] encounter Miscellaneous Notes * Telephone Encounter - Belkis Gonzales RN - 08/05/2023 1:59 PM EDT Images from the original note were not included. Call placed to f/u after DTP. DTP completed 08/03/23. [facility] weights: No weight in [facility] today. Pt answered the phone and identified self by name and . Pt reports that she did not weigh today as she has been at the hospital with her sister all night. Pt reports that her sister was transported to [place] via [facility] and the pt is on the way to [place] to be with her sister. [facility] offered emotional support. Pt will call [facility] with any concerns. documented in this encounter Plan of Treatment Upcoming Encounters Date Type Specialty Care Team Description 08/07/2023 Office Visit Pain Medicine Elijah Nash DO [address] [place] [address] 08/22/2023 Office Visit Neurological Surgery [facility] [address] [facility] [address] 08/24/2023 [facility] Visit [facility] Ladi Joseph RN [address] [place] [address] 08/27/2023 Office Visit Allergy & Immunology Brennan Wasserman MD [address] [place] [address] 11/23/2023 Office Visit Family Medicine Sotero Pizano MD [address] [place] [address] 11/27/2023 Office Visit Neurology Vernell Kimball PAEdie [address] [facility] [place] [phone] 12/10/2023 Nurse Only [facility], Nurse [facility] [address] [place] [address] 12/19/2023 Office Visit Cardiology Amaya Singleton PA-C [address] [place] [address] 04/08/2024 Office Visit Hematology Oncology Mario Kong MD [address] [place] [address] 06/30/2024 Imaging Radiology Health Maintenance Due Date Last Done Comments COVID-19 Vaccine (3 - Pfizer series) 04/14/2021 02/17/2021, 01/27/2021 Pneumococcal Vaccine: 65+ Years (2 - PCV) 02/24/2023 02/24/2022 Albumin/Creatinine Ratio 06/28/2023 06/28/2022 Influenza Vaccine (FLU shot) (#1) 2023 09/08/2021, 07/29/2020 Depression Screening 12/07/2023 12/07/2022 GFR 12/22/2023 06/21/2023, 06/0 12/2022, 03/21/2023, Additional history exists CKD PHOS USE SMARTSET 24465 03/16/202403/05, 03/29/2022, 05/13/2021, Additional history exists CKD HGB USE SMARTSET 78875 04/25/202404/25, 04/25/2023, 04/06/2023, Additional history exists Mammogram [...] this encounter Medical Devices Implanted Type Area Industrial Robotics Mechanic Device Identifier Shelf Expiration Date Model / Serial / Lot Terumo Microvention Hydrosoft 3d Implanted:Qty: 1 on 08/16/2018 by Aime Casas MD [place] [facility] [place]: Head [employer] : INTERVENTIONA 07/05/2023 [id number] / [id number] / [id number] Hd Offset Hum 46x16 - [id number] Implanted:Qty: 1 on 09/28/2020 by Teresa Rehman DO at OR [facility] Left: Shoulder DJO SURGICAL 06/17/2026 520-46-31 6 / / [id number] documented as of this encounter Advance Directives [...] and were consensually agreed upon. Care Teams Transfer Controller Relationship Specialty Start Date End Date March, Sotero Sutton MD [address] [place] [address] PCP - General Family Medicine 12/07/22 documented as of this encounter
--- OUTSIDE RECORDS SUMMARY | 2023-11-15 04:26 | External Medical Summary | Summary of Care ---
Author Name Unknown Organization [facility] Address [address] [facility] [place] [address] Phone [phone] Care Team Providers Care Technology Intern Name Role Phone Maine Dumont MD Primary Care Provider [phone] Reason for Visit * Reason Onset Date Comments [facility]: Maintenance 07/25/2023 Encounter Details Date Type Department Care Team Description 07/25/2023 Telephone [facility], [facility] [address] [place] [address] Ladi Joseph RN [address] [place] [address] [facility]: Maintenance Allergies Active Allergy [...] 03/15/2022 Active Vitamin D (Ergocalciferol) 1.25 MG (37896 UT) Oral Capsule TAKE ONE CAPSULE BY [...] mouth every evening. 90 Capsule 07/29/2023 Active Ipratropium-Albut aleksandr 0.5-2.5 (3) MG/3ML Inhalation [...] the morning. 90 Tablet 3 07/29/2023 Active Aspirin 81 MG Oral Tablet Delayed Release (RA Aspirin EC)Indications:Ce rebral aneurysm, nonruptured Take 1 Tab by mouth daily. 90 Tab 1 07/26/2020 3 Discontinue d(Refill) Ipratropium-Albut aleksandr 0.5-2.5 (3) MG/3ML Inhalation Solution (Duoneb)Indicatio ns:Chronic bronchitis with wheezing (HCC) Inhale via nebulizer 3 mL in the morning AND 3 mL at noon AND 3 mL in the evening AND 3 mL before bedtime. 100 mL 3 02/24/2022 3 Discontinue d(Refill) Docusate Sodium 100 MG Oral Capsule (Colace)Indicatio ns:Constipation, unspecified constipation type Take 1 Capsule by mouth in the morning and 1 Capsule before bedtime. 60 Capsule 11 11/14/2022 3 Discontinue d(Refill) Atorvastatin Calcium 10 MG Oral Tablet (Lipitor) TAKE 1 TABLET BY MOUTH ONCE DAILY 90 Tablet 2 01/30/2023 3 Discontinue d(Refill) traZODone HCl 150 MG Oral Tablet (Desyrel) TAKE 1 TABLET BY MOUTH AT BEDTIME 90 Tablet 3 03/05/2023 3 Discontinue d(Refill) Metoprolol Succinate ER 25 MG Oral Tablet Extended Release 24 Hour (Toprol XL) Take 1 Tablet by mouth in the morning. 34 Tablet 6 03/29/2023 3 Discontinue d(Refill) Vitamin B-12 1000 MCG Oral Tablet (Cyanocobalamin)I ndications:B12 deficiency Take 1 Tablet by mouth in the morning. 30 Tablet 11 05/23/2023 3 Discontinue d(Refill) rOPINIRole HCl 2 MG Oral Tablet (Requip) TAKE ONE TABLET BY MOUTH IN THE MORNING, ONE AT NOON AND ONE BEFORE BEDTIME. TAKE WITH FOOD. 90 Tablet 2 05/27/2023 3 Discontinue d(Refill) Losartan Potassium 25 MG Oral Tablet (Cozaar)Indicatio ns:Chronic kidney disease, stage 3b (HCC),HTN, goal below 140/90 Take 0.5 Tablets by mouth in the morning. 34 Tablet 11 06/02/2023 3 Discontinue d(Refill) Magnesium Oxide -Mg Supplement 400 (240 Mg) MG Oral Tablet (Mag-Ox)Indicatio ns:HTN, goal below 140/90 TAKE 1 TABLET BY MOUTH EVERY MORNING 90 Tablet 0 06/19/2023 3 Discontinue d(Refill) Torsemide 10 MG Oral Tablet (Demadex)Indicati ons:Chronic heart failure with preserved ejection fraction (HCC) 20 mg in the morning 10 mg in the evening 90 Tablet 3 07/21/2023 3 Discontinue d(Refill) documented as of this [...] mRNA, LNP-s, No Pre serve, 2-Dose Series ([facility] [facility]) 02/17/2021,01/27/2021 Pneumococcal Polysaccharide PPV23 (Pneumovax) SEASONAL INFLUENZA, [...] encounter Miscellaneous Notes * Addendum Note - RAHUL Pennington - 08/01/2023 9:09 AM EDTAddended by: DANAY CHAPPELL on: 08/01/2023 09:09 AM Modules accepted: Orders * Telephone Encounter - RAHUL Pennington - 08/01/2023 9:08 AM EDT Pharmacy is requesting a 90-day supply, pre-edited RXs as such. Please review and approve if appropriate. Pending Prescriptions: Disp Refills Ipratropium-Albuterol 0.5-2.5 (3) MG/3ML *1080 mL0 Sig: Inhale 3 mL via nebulizer in the morning and 3 mL at noon and 3 mL in the evening and 3 mL before bedtime. Signed Prescriptions: Disp Refills Aspirin 81 MG Oral Tablet Delayed Release *90 Tab*3 Sig: Take 1 Tablet by mouth in the morning. Authorizing Provider: MAINE DUMONT Atorvastatin Calcium 10 MG Oral Tablet (Li*90 Tab*3 Sig: Take 1 Tablet by mouth in the morning. Authorizing Provider: MAINE DUMONT Docusate Sodium 100 MG Oral Capsule (Colac*90 Cap*3 Sig: Take 1 Capsule by mouth every evening. Authorizing Provider: MAINE DUMONT Ipratropium-Albuterol 0.5-2.5 (3) MG/3ML I*100 mL 3 Sig: Inhale 3 mL via nebulizer in the morning and 3 mL at noon and 3 mL in the evening and 3 mL before bedtime. Authorizing Provider: MAINE DUMONT Losartan Potassium 25 MG Oral Tablet (Coza*45 Tab*3 Sig: Take 0.5 Tablets by mouth in the morning. Authorizing Provider: MAINE DUMONT Magnesium Oxide -Mg Supplement 400 (240 Mg*90 Tab*3 Sig: Take 1 Tablet by mouth in the morning. In the morning.. Authorizing Provider: MAINE DUMONT Metoprolol Succinate ER 25 MG Oral Tablet *90 Tab*3 Sig: Take 1 Tablet by mouth in the morning. Authorizing Provider: MAINE DUMONT rOPINIRole HCl 2 MG Oral Tablet (Requip) 270 Ta*3 Sig: TAKE ONE TABLET BY MOUTH IN THE MORNING, ONE AT NOON AND ONE BEFORE BEDTIME. TAKE WITH FOOD. Authorizing Provider: MAINE DUMONT Torsemide 10 MG Oral Tablet (Demadex) 90 Tab*3 Si mg in the morning 10 mg in the evening Authorizing Provider: MAINE DUMONT traZODone HCl 150 MG Oral Tablet (Desyrel) 90 Tab*3 Sig: Take 1 Tablet by mouth at bedtime. Authorizing Provider: MAINE DUMONT Vitamin B-12 1000 MCG Oral Tablet (Cyanoco*90 Tab*3 Sig: Take 1 Tablet by mouth in the morning. Authorizing Provider: MAINE DUMONT Last Visit: Visit date not found (in office), Visit date not found (telemedicine) 08/04/2023 If no future appointments scheduled, and last [...] 04/04/2017 11:29 AM * Telephone Encounter - Maine Dumont MD - 07/29/2023 9:14 PM EDT Meds sent to mail order. Maine Dumont MD * Telephone Encounter - Ladi Joseph RN - 07/25/2023 3:[address] Dumont Pt is requesting that she get all her meds from [facility]. Could you please send all of her scripts there so she can start getting them delivered? Thank you!! documented in this encounter Plan of Treatment Upcoming Encounters Date Type Specialty Care Team Description 08/04/2023 Scheduled Telephone [facility], Nurse Linda Mills [address] [place] [address] 08/07/2023 Office Visit Pain Medicine Cousins, Elijah Omer DO [address] [place] [address] 08/22/2023 Office Visit Neurological Surgery Aime Casas MD [address] [place] [address] 08/24/2023 Home Visit [facility] Ladi Joseph RN [address] [place] [address] 08/27/2023 Office Visit Allergy & Immunology Brennan Wasserman MD [address] [facility] [place] [address] 11/23/2023 Office Visit Family Medicine Maine Dumont MD [address] [place] [address] 11/27/2023 Office Visit Neurology Vernell Kimball PA-C [address] [place] [id number] 12/10/2023 Nurse Only [facility], Nurse [facility] [address] [place] [address] 12/19/2023 Office Visit Cardiology Amaya Singleton PA-C [address] [place] [address] 04/08/2024 Office Visit Hematology Oncology Mario Kong MD [address] [facility] [place] [address] 06/30/2024 Imaging Radiology Health Maintenance Due Date Last Done Comments COVID-19 Vaccine (3 - Pfizer series) 04/14/2021 02/17/2021, 01/27/2021 Pneumococcal Vaccine: 65+ Years (2 - PCV) 02/24/2023 02/24/2022 Albumin/Creatinine Ratio 06/28/2023 06/28/2022 Influenza Vaccine (FLU shot) (#1) 2023 09/08/2021, 07/29/2020 Depression Screening 12/07/2023 12/07/2022 GFR 12/22/2023 06/21/2023, 06/0 12/2022, 03/21/2023, Additional history exists CKD PHOS USE SMARTSET 28377 03/16/202403/05, 03/29/2022, 05/13/2021, Additional history exists CKD HGB USE SMARTSET 68892 04/25/202404/25, 04/25/2023, 04/06/2023, Additional history exists Mammogram [...] this encounter Medical Devices Implanted Type Area Hadoop Administrator Device Identifier Shelf Expiration Date Model / Serial / Lot [employer]vention Hydrosoft 3d Implanted:Qty: 1 on 08/16/2018 by Aime Casas MD at OR [facility] N/A: Head [employer] : INTERVENTIONA 07/05/2023 [id number] / [id number] / [id number] Hd Offset Hum 46x16 - [id number] Implanted:Qty: 1 on 09/28/2020 by Teresa Rehman, at OR [facility] Left: Shoulder [employer] SURGICAL 06/17/2026 [id number] documented as of this encounter Visit Diagnoses Diagnosis Cerebral aneurysm, nonruptured Constipation, unspecified constipation type Chronic bronchitis with wheezing (HCC) HTN, goal below 140/90 Unspecified essential hypertension Chronic kidney disease, stage 3b (HCC) Chronic heart failure with preserved ejection fraction (HCC) B12 deficiency Other B-complex deficiencies documented in this encounter Advance Directives Latest [...] and were consensually agreed upon. Care Teams Technology Intern Relationship Specialty Start Date End Date March, Maine Sutton MD [address] [place] [address] PCP - General Family Medicine 12/07/22 documented as of this encounter
--- OUTSIDE RECORDS SUMMARY | 2023-11-15 04:26 | External Medical Summary | Summary of Care ---
Author Name Unknown Organization [facility] Address [address] [facility] [address] Phone [phone] Care Team Providers Care Cell Attendant Name Role Phone Sotero Pizano MD Primary Care Provider [phone] Reason for Visit * Reason Onset Date Comments [facility]: Maintenance 08/04/2023 Encounter Details Date Type Department Care Team Description 08/04/2023 Scheduled Telephone [facility], [facility] [address] [place] [address] [facility], Nurse [facility] [address] [place] [address] Allergies Active Allergy Reactions Severity Noted Date [...] 03/15/2022 Active Vitamin D (Ergocalciferol) 1.25 MG (01353 UT) Oral Capsule TAKE ONE CAPSULE BY [...] Telephone Encounter - Nori Downing RN - 08/04/2023 11:34 AM EDT Images from the original note were not included. [facility] Telephonic Nurse Follow-Up Call [facility] Subprogram: Focused Care Management (3-9 months) Follow Up Call Type: Routine follow up call / Status Check Acute issue requiring follow-up call: Other: Follow up on weight gain/DTP Objective: 07/25/2023 2:45 PM 07/03/2023 1:50 PM [...] FRACTION Remote Patient Monitoring: Oxygen Needs: NO CHANGE from baseline supplemental oxygen needs DME Needs: NO DME needs identified Medications: Current DTP: Double dose of Torsemide for 3 days Subjective: Condition Status: No change in symptoms Current Concerns: Spoke with Kristen, states her breathing is good today, denies any SOB, has cough/congestion, has sinus issues, mucous is clear. Does have allergies Reports legs are swollen, primarily at night, very tight but subsides by morning, very little bloating to abdomen. Is urinating, but feels she can urinate some more. Yesterday was the 3rd DTP day, will resume her normal dose today, will follow up with her weight tomorrow and determine if she needs to double torsemide on Sunday. Baseline dry weight has been 255lbs but has been increasing over past few days. Disposition: Follow up call scheduled for tomorrow with CATERING SERVER Technical Data Analyst Future Visits Scheduled: Future Appointments-next 60 days Date/Time Provider Specialty Dept Phone 08/07/2023 2:40 PM (Arrive by 2:25 PM) Elijah Nash DO Pain Medicine [phone] 08/22/2023 3:00 PM (Arrive by 2:45 PM) Aime Casas MD Neurological Surgery [phone] 08/24/2023 4:00 PM Ladi Joseph RN [facility] at [facility] [phone] 08/27/2023 3:00 PM (Arrive by 2:45 PM) Brennan Wasserman MD Allergy & Immunology [phone] 11/23/2023 2:40 PM (Arrive by 2:25 PM) Sotero Pizano MD Family Medicine [phone] 11/27/2023 2:00 PM (Arrive by 1:45 PM) Vernell Kimball PA-C Neurology [phone] 12/10/2023 3:30 PM Nurse Annual [facility] [phone] 12/19/2023 11:00 AM (Arrive by 10:45 AM) Amaya Singleton PA-C Cardiology [phone] 04/08/2024 3:15 PM (Arrive by 3:00 PM) Mario Kong MD Hematology Oncology [phone] 06/30/2024 1:30 PM (Arrive by 1:15 PM) [facility] Radiology [phone] ESTRELLITA Veliz Cement Mixer [facility] documented in this encounter Plan of Treatment Upcoming Encounters Date Type Specialty Care Team Description 08/05/2023 Scheduled Telephone [facility] [place], Nurse [facility] [address] [facility] [place] [address] 08/07/2023 Office Visit Pain Medicine Elijah Nash DO [address] [facility] [place] [address] 08/22/2023 Office Visit Neurological Surgery Aime Casas MD [address] [place] [address] 08/24/2023 Home Visit [facility] Ladi Joseph RN [address] [place] [address] 08/27/2023 Office Visit Allergy & Immunology Brennan Wasserman MD [address] [place] [address] 11/23/2023 Office Visit Family Medicine Sotero Pizano MD [address] [place] [address] 11/27/2023 Office Visit Neurology Vernell Kimball [facility]-C [address] [facility] [id number] 12/10/2023 Nurse Only Nurse [facility] [address] [place] [address] 12/19/2023 Office Visit Cardiology Amaya Singleton PA-C [address] [place] [address] 04/08/2024 Office Visit Hematology Oncology [facility] [address] 06/30/2024 Imaging Radiology Health Maintenance Due Date Last Done Comments COVID-19 Vaccine (3 - Pfizer series) 04/14/2021 02/17/2021, 01/27/2021 Pneumococcal Vaccine: 65+ Years (2 - PCV) 02/24/2023 02/24/2022 Albumin/Creatinine Ratio 06/28/2023 06/28/2022 Influenza Vaccine (FLU shot) (#1) 2023 09/08/2021, 07/29/2020 Depression Screening 12/07/2023 12/07/2022 GFR 12/22/2023 06/21/2023, 0612/2022, 03/21/2023, Additional history exists CKD PHOS USE SMARTSET 31044 03/16/202403/05, 03/29/2022, 05/13/2021, Additional history exists CKD HGB USE SMARTSET 71673 04/25/202404/25, 04/25/2023, 04/06/2023, Additional history exists Mammogram [...] this encounter Medical Devices Implanted Type Area Rn Visiting Device Identifier Shelf Expiration Date Model / Serial / Lot Terumo Microvention Hydrosoft 3d Implanted:Qty: 1 on 08/16/2018 by Aime Casas MD at [place] [facility] N/A: Head [employer] : INTERVENTIONA 07/05/2023 [id number] / [id number] / [id number] Hd Offset Hum 46x16 - [id number] Implanted:Qty: 1 on 09/28/2020 by Teresa Rehman DO at OR [facility] Left: Shoulder DJO SURGICAL 06/17/2026 [id number] / / [id number] documented as of this encounter Advance Directives [...] and were consensually agreed upon. Care Teams Cell Attendant Relationship Specialty Start Date End Date March, Sotero Sutton MD [address] [place] [address] PCP - General Family Medicine 12/07/22 documented as of this encounter
--- OUTSIDE RECORDS SUMMARY | 2023-11-15 04:27 | External Medical Summary | Summary of Care ---
Author Name Unknown Organization [facility] Address [address] [facility] [place] [address] Phone [phone] Care Team Providers Care Ore Smelter Name Role Phone Sotero Pizano MD Primary Care Provider Reason for Visit * Reason Onset Date Comments [facility]: Maintenance 08/02/2023 Encounter Details Date Type Department Care Team Description 08/02/2023 Scheduled Telephone [facility], [facility] [address] [place] [address] Coordinator, [facility] [address] [place] [address] Allergies Active Allergy Reactions Severity Noted Date [...] as of this encounter (statuses as of 08/02/2023) Medications Medication Sig Dispensed Refills Start Date [...] 03/15/2022 Active Vitamin D (Ergocalciferol) 1.25 MG (38445 UT) Oral Capsule TAKE ONE CAPSULE BY [...] 10 mg in the evening 90 Tablet 07/29/2023 Active [...] as of this encounter (statuses as of 08/02/2023) Active Problems Problem Noted Date Iron deficiency [...] as of this encounter (statuses as of 08/02/2023) Resolved Problems Problem Noted Date Resolved Date [...] as of this encounter (statuses as of 08/02/2023) Immunizations Name Administration Dates Next Due COVID-19 [...] encounter Miscellaneous Notes * Telephone Encounter - Regina Wheat LPN - 08/02/2023 12:05 PM EDT Please see other telephone encounter from today documented in this encounter Plan of Treatment Upcoming Encounters Date Type Specialty Care Team Description 08/03/2023 [facility]uled Telephone [facility] Of Corporate Marketing, [facility] [address] [place] [address] 08/04/2023 Scheduled Telephone [facility], Nurse [facility] [address] [place] [address] 08/07/2023 Office Visit Pain Medicine Elijah Nash DO [address] [place] [address] 08/22/2023 Office Visit Neurological Surgery Aime Casas MD [address] [facility] [place] [address] 08/24/2023 Home Visit [facility] Ladi Joseph RN [address] [place] [address] 08/27/2023 Office Visit Allergy & Immunology Brennan Wasserman MD [address] [facility] [place] [address] 11/23/2023 Office Visit Family Medicine Sotero Pizano MD [address] [place] [address] 11/27/2023 Office Visit Neurology Vernell Kimball PA-C [address] [place] [address] 12/10/2023 Nurse Only [facility] Nurse Annual [facility] [address] [place] [address] 12/19/2023 Office Visit Cardiology Amaya Singleton PA-C [address] [place] [address] 04/08/2024 Office Visit Hematology Oncology Mario Kong MD [address] [place] [address] 06/30/2024 Imaging Radiology Health Maintenance Due Date Last Done Comments COVID-19 Vaccine (3 - Pfizer series) 04/14/2021 02/17/2021, 01/27/2021 Pneumococcal Vaccine: 65+ Years (2 - PCV) 02/24/2023 02/24/2022 Albumin/Creatinine Ratio 06/28/2023 06/28/2022 Influenza Vaccine (FLU shot) (#1) 2023 09/08/2021, 07/29/2020 Depression Screening 12/07/2023 12/07/2022 GFR 12/22/2023 06/21/2023, 0612/2022, 03/21/2023, Additional history exists CKD PHOS USE SMARTSET 95341 03/16/202403/05, 03/29/2022, 05/13/2021, Additional history exists CKD HGB USE SMARTSET 23779 04/25/202404/25, 04/25/2023, 04/06/2023, Additional history exists Mammogram [...] encounter Medical Devices Implanted Type Area Coal Loader Device Identifier Shelf Expiration Date Model / Serial / Lot Terumo Microvention Hydrosoft 3d Implanted:Qty: 1 on 08/16/2018 by Aime Casas MD at [place] [facility] [place]A: Head [employer] : INTERVENTIONA 07/05/2023 [id number] / [id number] / [id number] Hd Offset Hum 46x16 - [id number] Implanted:Qty: 1 on 09/28/2020 by Teresa Rehman DO at OR [facility] Left: Shoulder DJO SURGICAL 06/17/2026 520-46-31 6 / / [id number] documented as of this encounter Advance Directives [...] and were consensually agreed upon. Care Teams Ore Smelter Relationship Specialty Start Date End Date March, Sotero Sutton MD [address] [place] [id number] PCP - General Family Medicine 12/07/22 documented as of this encounter
--- OUTSIDE RECORDS SUMMARY | 2023-11-15 04:27 | External Medical Summary | Summary of Care ---
Author Name Unknown Organization [facility] Address [address] [facility] [place] [address] Phone [phone] Care Team Providers Care Commodity Merchant Name Role Phone Sotero Pizano MD Primary Care Provider [phone] Reason for Visit * Reason Onset Date Comments [facility]: Maintenance 08/02/2023 Encounter Details Date Type Department Care Team Description 08/02/2023 Telephone [facility], [facility] [address] [address] [facility], Nurse [facility] 132 [place] [address] [facility]: Maintenance Allergies Active Allergy [...] 03/15/2022 Active Vitamin D (Ergocalciferol) 1.25 MG (12368 UT) Oral Capsule TAKE ONE CAPSULE BY [...] Beta Dominique Therapy: Metoprolol Succinate (ER) o ERCIA Inhibitor/ARB Therapy: No ERICA/ARB/ARNI secondary to: kidney [...] mRNA, LNP-s, No Pre serve, 2-Dose Series ([email or web address]) 02/17/2021,01/27/2021 Pneumococcal Polysaccharide PPV23 (Pneumovax) Seasonal Influenza, [...] Encounter - Regina Wheat LPN - 08/02/2023 1:03 PM EDT Noted thank you! Patient is on day 2 of DTP today, should she continue for an additional 3 days from today? Did place patient on for follow up calls * Telephone Encounter - Xu Donaldson PA-C - 08/02/2023 12:36 PM EDT [facility] Remote Medical Command Phone Encounter [facility] Phone Encounter Thank you for your assistance in the care of this patient today. Reviewed phone message regarding the patient's weight and [facility] findings. Please see below for the response to the trigger: Patient presents with an increase weight as well as symptoms of congestive heart failure. Recommendations: Three days of DTP. 12 48 p.m. call backs. I would have Kristen Garcia continue to weigh on a daily basis and report any changes in symptoms toGAH, their PCP or their cardiology office. Thank you in advance, I appreciate it. Xu Donaldson PA-C Advanced Practitioner - [facility] .08/02/2023 This note was prepared with the help of fluency and if there is any mis-spelled words , sentences or something which doesn't represent the content of the subject that could be technical error and please refer to the author for clarification. * Telephone Encounter - Regina WheatKRISHNA - 08/02/2023 11:46 AM EDT Images from the original note were not included. [facility] Remote Patient Monitoring Able to contact patient: Trigger type: Spoke with patient for [facility] weight trigger Patient reports she is noticing some increase in her restless leg symptoms. Also reporting increasein SOB and feeling abdominal bloating. States she started her DTP yesterday which is torsemide 30 mg in am and 30 mg in pm. Will add for calls next 24/48 hours. Advised patient to call with any increase in symptoms or changes Abnormal reading(s): [facility] ([facility]): Scale: Baseline weight: 3 lbs below 250 and 3 lbs above 360 lbs Trigger weight: 258.7 lbs; weight increased 5.9 lbs in 4 day(s) Trigger priority per [facility]: high Patient takes diuretic medication: Yes, reviewed current diuretic use: Name of medication: torsemide Dose: 10 mg Frequency: 20 mg in am and 10 mg in pm Symptom review: SOB: uses o2 at bedtime but noticing sob with exertion Abdominal Fullness: feeling bloated Diet Reviewed: Yes. Patient has had any foods high in sodium: No Fluid Intake Reviewed: Yes. Patient is on a fluid restriction: Yes, restriction amount in milliliters or liters: 2 liters Adherent to restriction: Yes Self-Management Plan Reviewed: Red Flags: legs feeling more hard/tight, increase sob, gain of 2 lbs in 48 hrs or 5 lbs in one week DTP (Diuretic Titration Protocol): Describe DTP: Name of medication(s): torsemide Dose: 10 mg Frequency: taking extra 10 mg in am and extra 20 mg in pm Used in past 2 weeks: No Risk assignment recommendation: Moderate risk findings (check as applicable): [] Moderate trigger priority on [facility] [] Confirmed tympanic equivalent temperature 100.4-101.9 F one hour post administration of antipyretic [] Weight gain of 2.1-4.9 lbs over 1-2 days [] Confirmed new sustained resting HR greater than 105 WITHOUT symptoms [] Weight gain of greater than or equal to 5 lbs in 5 days WITHOUT heart failure symptoms [] Confirmed new sustained resting HRT less than 60 WITHOUT symptoms [] Moderate heart failure symptoms [] Confirmed SBP less than 90 WITHOUT symptoms [] Moderate COPD symptoms [] Confirmed SBP greater than 170 WITHOUT symptoms [] Confirmed new SpO2 90-93% [] Confirmed DBP greater than 90 WITHOUT symptoms High risk findings (check as applicable): [] High trigger priority on [facility] [] Confirmed tympanic equivalent temperature greater than or equal to 102 F on hour post administration of antipyretic [] Weight gain of greater than or equal to 5 lbs over 1-2 days [] Confirmed tympanic equivalent temperature less than 96 F [x] Weight gain of greater than or equal to 5 lbs in 5 days WITH heart failure symptoms [] Confirmed new sustained resting HR greater than 105 WITH symptoms [] Severe heart failure symptoms [] Confirmed new sustained resting HR less than 60 WITH symptoms [] Severe COPD symptoms [] Confirmed SBP less than 90 WITH symptoms [] Confirmed new SpO2 less than 90% [] Confirmed SBP greater than 170 WITH symptoms [] Confirmed DBP greater than 90 WITH symptoms Additional risk selection justification: n/a Overall risk and identified plan: High risk: Next day follow up call scheduled Route to RNCM (Registered Nurse Stone Chimney Mason) and Advance Practitioner Route to RM (Remote Medical Coordinator) documented in this encounter Plan of Treatment Upcoming Encounters Date Type Specialty Care Team Description 08/02/2023 Scheduled Telephone [facility] [employer], [address] [place] [address] 08/03/2023 Scheduled Telephone [facility] [employer], [facility] [address] [place] [address] 08/04/2023 Scheduled Telephone [facility], Nurse [place] [address] [place] [address] 08/07/2023 Office Visit Pain Medicine CouElijah lamas DO [address] [place] [address] 08/22/2023 Office Visit Neurological Surgery Aime Casas MD [address] [place] [address] 08/24/2023 Home Visit [facility] Ladi Joseph RN [address] [place] [address] 08/27/2023 Office Visit Allergy & Immunology Brennan Wasserman MD [address] [place] [address] 11/23/2023 Office Visit Family Medicine Sotreo Pizano MD [address] [place] [address] 11/27/2023 Office Visit Neurology Vernell Kimball PA-C [address] [facility] [place], [place] [phone] 12/10/2023 Nurse Only [facility], Nurse [facility] [address] [place] [address] 12/19/2023 Office Visit Cardiology Amaya Singleton PA-C [address] [facility] [place] [address] 04/08/2024 Office Visit Hematology Oncology Mario Kong MD [address] [place] [address] 06/30/2024 Imaging Radiology Health Maintenance Due Date Last Done Comments COVID-19 Vaccine (3 - Pfizer series) 04/14/2021 02/17/2021, 01/27/2021 Pneumococcal Vaccine: 65+ Years (2 - PCV) 02/24/2023 02/24/2022 Albumin/Creatinine Ratio 06/28/2023 06/28/2022 Influenza Vaccine (FLU shot) (#1) 2023 09/08/2021, 07/29/2020 Depression Screening 12/07/2023 12/07/2022 GFR 12/22/2023 06/21/2023, 06/0 12/2022, 03/21/2023, Additional history exists CKD PHOS USE SMARTSET 50088 03/16/202403/05, 03/29/2022, 05/13/2021, Additional history exists CKD HGB USE SMARTSET 48691 04/25/202404/25, 04/25/2023, 04/06/2023, Additional history exists Mammogram [...] Medical Devices Implanted Type Area Manager Of Disaster Recovery Device Identifier Shelf Expiration Date Model / Serial / Lot Terumo Microvention Hydrosoft 3d Implanted:Qty: 1 on 08/16/2018 by Aime Casas MD at OR [facility] N/A: Head [employer] : INTERVENTIONA 07/05/2023 [id number] / [id number] / [id number] Hd Offset Hum 46x16 - [id number] Implanted:Qty: 1 on 09/28/2020 by Teresa Rehman, at OR [facility] Left: Shoulder DJO SURGICAL 06/17/2026 520-46-31 [id number] documented as of this encounter Advance Directives [...] and were consensually agreed upon. Care Teams Commodity Merchant Relationship Specialty Start Date End Date March, Sotero Sutton MD [address] [place], [place] [id number] PCP - General Family Medicine 12/07/22 documented as of this encounter
--- OUTSIDE RECORDS SUMMARY | 2023-11-15 04:27 | External Medical Summary | Summary of Care ---
Author Name Unknown Organization [facility] Address [address] [facility] [place] [address] Phone [phone] Care Team Providers Care Order Picker Name Role Phone Maine Dumont MD Primary Care Provider [phone] Reason for Visit * Reason Onset Date Comments [facility]: Maintenance 07/25/2023 Encounter Details Date Type Department Care Team Description 07/25/2023 Telephone [facility], [facility] [address] [place] [address] Ladi Joseph RN [address] [place] [address] [facility]: Maintenance Allergies Active Allergy [...] 03/15/2022 Active Vitamin D (Ergocalciferol) 1.25 MG (84901 UT) Oral Capsule TAKE ONE CAPSULE BY [...] and 2 capsules in pm. 120 Capsule 07/17/2023 Active oxygen IN GAS Use 2 [...] mRNA, LNP-s, No Pre serve, 2-Dose Series ([employer]ck) 02/17/2021,01/27/2021 Pneumococcal Polysaccharide PPV23 (Pneumovax) Seasonal Influenza, [...] (in office), Visit date not found (telemedicine) 08/01/2023 If no future appointments scheduled, and last [...] that she get all her meds from [facility]. Could you please send all of her scripts there so she can start getting them delivered? Thank you!! documented in this encounter Plan of Treatment Upcoming Encounters Date Type Specialty Care Team Description 08/02/2023 Scheduled Telephone [facility] at Nailing Machine Operator Automatic, [facility] Central Field [address] [place] [address] [place] [address] 08/07/2023 Office Visit Pain Medicine Cousins, Elijah Omer DO [address] [place] [address] 08/22/2023 Office Visit Neurological Surgery Aime Casas MD [address] [place] [address] 08/24/2023 Home Visit [facility] aLdi Joseph, RN [address] [place], [place] [phone] 08/27/2023 Office Visit Allergy & Immunology Brennan Wasserman MD [address] [place] [address] 11/23/2023 Office Visit Family Medicine Maine Dumont MD [address] [place] [address] 11/27/2023 Office Visit Neurology Vernell Kimball PA-C [address] [place] [address] 12/10/2023 Nurse Only [facility], Nurse [facility] [address] [place] [address] 12/19/2023 Office Visit Cardiology Amaya Singleton PA-C [address] [facility], [place] [address] 04/08/2024 Office Visit Hematology Oncology Mario Kong MD [address] [place] [address] 06/30/2024 Imaging Radiology Health Maintenance Due Date Last Done Comments COVID-19 Vaccine (3 - Pfizer series) 04/14/2021 02/17/2021, 01/27/2021 Pneumococcal Vaccine: 65+ Years (2 - PCV) 02/24/2023 02/24/2022 Albumin/Creatinine Ratio 06/28/2023 06/28/2022 Influenza Vaccine (FLU shot) (#1) 2023 09/08/2021, 07/29/2020 Depression Screening 12/07/2023 12/07/2022 GFR 12/22/2023 06/21/2023, 06/0 12/2022, 03/21/2023, Additional history exists CKD PHOS USE SMARTSET 63597 03/16/202403/05, 03/29/2022, 05/13/2021, Additional history exists CKD HGB USE SMARTSET 77863 04/25/202404/25, 04/25/2023, 04/06/2023, Additional history exists Mammogram [...] this encounter Medical Devices Implanted Type Area Yoker Machine Operator Device Identifier Shelf Expiration Date Model / Serial / Lot Terumo Microvention Hydrosoft 3d Implanted:Qty: 1 on 08/16/2018 by Aime Casas MD at [place] [facility] N/A: Head [employer] : INTERVENTIONA 07/05/2023 [id number] / [id number] / [id number] Hd Offset Hum 46x16 - [id number] Implanted:Qty: 1 on 09/28/2020 by Teresa Rehman DO at OR [facility] Left: Shoulder DJO SURGICAL 06/17/2026 520-46-31 [id number] documented as of this encounter Visit Diagnoses [...] and were consensually agreed upon. Care Teams Order Picker Relationship Specialty Start Date End Date March, Maine Sutton MD [address] [place] [address] PCP - General Family Medicine 12/07/22 documented as of this encounter
--- OUTSIDE RECORDS SUMMARY | 2023-11-15 04:27 | External Medical Summary | Summary of Care ---
Author Name Unknown Organization [facility] Address [address] [facility] [place] [address] Phone [phone] Care Team Providers Care Brickmason Apprentice Name Role Phone Sotero Pizano MD Primary Care Provider [phone] Reason for Visit * Reason Onset Date Comments [facility]: Maintenance 08/02/2023 Encounter Details Date Type Department Care Team Description 08/02/2023 Telephone [facility], [facility] [address] [facility] [address] [facility], Nurse [facility] 132 [place] [address] [facility]: Maintenance Allergies Active Allergy [...] 03/15/2022 Active Vitamin D (Ergocalciferol) 1.25 MG (77627 UT) Oral Capsule TAKE ONE CAPSULE BY [...] mRNA, LNP-s, No Pre serve, 2-Dose Series (Jipio) 02/17/2021,01/27/2021 Pneumococcal Polysaccharide PPV23 (Pneumovax) Seasonal Influenza, [...] Encounter - Regina Wheat LPN - 08/02/2023 11:46 AM EDT Images from the original note were not included. [facility] Remote Patient Monitoring Able to contact patient: Trigger type: Spoke with patient for [facility] weight trigger Patient reports she is noticing some increase in her restless leg symptoms. Also reporting increasein SOB and feeling abdominal bloating. States she started her DTP yesterday which is torsemide 30 mg in am and 30 mg in pm. Will add for calls next 24/48 hours. Advised patient to call with any increase in symptoms or changes Abnormal reading(s): [facility] (Advanced Monitored Caregiving): Scale: Baseline weight: 3 lbs below 250 and 3 lbs above 360 lbs Trigger weight: 258.7 lbs; weight increased 5.9 lbs in 4 day(s) Trigger priority per [facility]: high Patient takes diuretic medication: Yes, reviewed [...] as applicable): [] Moderate trigger priority on [facility] [] Confirmed tympanic equivalent temperature 100.4-101.9 F [...] call scheduled Route to RNCM (Registered Nurse Fern Picker) and Advance Practitioner Route to [facility] [place] (Remote Medical Coordinator) documented in this encounter Plan of Treatment Upcoming Encounters Date Type Specialty Care Team Description 08/02/2023 Scheduled Telephone [facility] Agronomy Teacher, [facility] [address] [place] [address] 08/03/2023 Scheduled Telephone [facility] Agronomy Teacher, [facility] [address] [facility] [place] [address] 08/04/2023 Scheduled Telephone [facility] [place], Nurse [facility] [address] [place] [address] 08/07/2023 Office Visit Pain Medicine Elijah Nash DO [address] [place] [address] 08/22/2023 Office Visit Neurological Surgery Aime Casas MD [address] [place], [place] [address] 08/24/2023 Home Visit [facility] Ladi Joseph RN [address] [place] [address] 08/27/2023 Office Visit Allergy & Immunology Brennan Wasserman MD 200 [place] [address] 11/23/2023 Office Visit Family Medicine Sotero Pizano MD [address] [place] [address] 11/27/2023 Office Visit Neurology Vernell Kimball PA-C [address] [place] [address] 12/10/2023 Nurse Only Nurse [facility] [address] [place] [address] 12/19/2023 Office Visit Cardiology Amaya Singleton PA-C [address] [place] [address] 04/08/2024 Office Visit Hematology Oncology Mario Kong MD [address] [place] [address] 06/30/2024 Imaging Radiology Health Maintenance Due Date Last Done Comments COVID-19 Vaccine (3 - Pfizer series) 04/14/2021 02/17/2021, 01/27/2021 Pneumococcal Vaccine: 65+ Years (2 - PCV) 02/24/2023 02/24/2022 Albumin/Creatinine Ratio 06/28/2023 06/28/2022 Influenza Vaccine (FLU shot) (#1) 2023 09/08/2021, 07/29/2020 Depression Screening 12/07/2023 12/07/2022 GFR 12/22/2023 06/21/2023, 12/2022, 03/21/2023, Additional history exists CKD PHOS USE SMARTSET 56488 03/16/202403/05, 03/29/2022, 05/13/2021, Additional history exists CKD HGB USE SMARTSET 24720 04/25/202404/25, 04/25/2023, 04/06/2023, Additional history exists Mammogram [...] this encounter Medical Devices Implanted Type Area Applied Psychology Chair Device Identifier Shelf Expiration Date Model / Serial / Lot Terumo Microvention Hydrosoft 3d Implanted:Qty: 1 on 08/16/2018 by Aime Casas MD at OR [facility] N/A: Head [employer] : INTERVENTIONA 07/05/2023 8628-2208 / [id number] / [id number] Hd Offset Hum 46x16 - [id number] Implanted:Qty: 1 on 09/28/2020 by Teresa Rehman DO at OR [facility] Left: Shoulder DJO SURGICAL 06/17/2026 520-46-31 6 / / [id number] documented as of this encounter Advance Directives [...] and were consensually agreed upon. Care Teams Brickmason Apprentice Relationship Specialty Start Date End Date March, Sotero Sutton MD [address] [place] [address] PCP - General Family Medicine 12/07/22 documented as of this encounter
--- OUTSIDE RECORDS SUMMARY | 2023-11-15 04:27 | External Medical Summary | Summary of Care ---
Author Name Unknown Organization [facility] Address [address] [facility] [place] [address] Phone [phone] Care Team Providers Care Tensioning Machine Operator Name Role Phone Sotero Pizano MD Primary Care Provider [phone] Reason for Visit * Reason Onset Date Comments [facility]: Maintenance 08/02/2023 Encounter Details Date Type Department Care Team Description 08/02/2023 Telephone [facility], [facility] [address] [facility] [address] [facility], Nurse [facility] 132 [place] [address] [facility]: Maintenance Allergies Active Allergy [...] 03/15/2022 Active Vitamin D (Ergocalciferol) 1.25 MG (75513 UT) Oral Capsule TAKE ONE CAPSULE BY [...] mRNA, LNP-s, No Pre serve, 2-Dose Series (Cerebrex) 02/17/2021,01/27/2021 Pneumococcal Polysaccharide PPV23 (Pneumovax) Seasonal Influenza, [...] encounter Miscellaneous Notes * Telephone Encounter - Mandeep Urias DO - 08/02/2023 1:10 PM EDT Will evaluate response tomorrow and determine whether DTP needs to be extended or not. * Telephone Encounter - Regina Wheat LPN [...] Medical Command Phone Encounter [facility] Phone Encounter Thank you for your assistance in the care of this patient today. Reviewed phone message regarding the patient's weight and [facility] findings. Please see below for the response to the trigger: Patient presents with an increase weight as well as symptoms of congestive heart failure. Recommendations: Three days of DTP. 12/ 48 p.m. call backs. I would have [...] for clarification. * Telephone Encounter - Regina Wheat LPN - 08/02/2023 11:46 AM EDT Images from the original note were not included. [facility] Remote Patient Monitoring Able to contact patient: Trigger type: Spoke with patient for [facility] weight trigger Patient reports she is noticing some increase in her restless leg symptoms. Also reporting increasein SOB and feeling abdominal bloating. States she started her DTP yesterday which is torsemide 30 mg in am and 30 mg in pm. Will add for calls next 24/48 hours. Advised patient to call with any increase in symptoms or changes Abnormal reading(s): [facility] (Advanced Monitored Caregiving): Scale: Baseline weight: 3 lbs below 250 and 3 lbs above 360 lbs Trigger weight: 258.7 lbs; weight increased 5.9 lbs in 4 day(s) Trigger priority per [facility]: high Patient takes diuretic medication: Yes, reviewed [...] call scheduled Route to RNCM (Registered Nurse Tailor Helper) and Advance Practitioner Route to C (Remote Medical Coordinator) documented in this encounter Plan of Treatment Upcoming Encounters Date Type Specialty Care Team Description 08/02/2023 Scheduled Telephone [facility] Internal Specialist, [facility] [place] [address] [place] [address] 08/03/2023 Scheduled Telephone [facility] Specialist, [facility] Field 132 [facility] [place] [address] 08/04/2023 Scheduled Telephone [facility], Nurse [facility] [address] [place] [address] 08/07/2023 Office Visit Pain Medicine CouElijah lamas DO [address] [facility] [place] [address] 08/22/2023 Office Visit Neurological Surgery Aime Casas MD [address] [place] [address] 08/24/2023 Home Visit [facility] Ladi Joseph RN [address] [facility] [place] [address] 08/27/2023 Office Visit Allergy & Immunology Brennan Wasserman MD [address] [place] [address] 11/23/2023 Office Visit Family Medicine Sotero Pizano MD [address] [place] [address] 11/27/2023 Office Visit Neurology Vernell Kimball PA-C [address] [place] [address] 12/10/2023 Nurse [facility], Nurse [facility] [address] [place] [address] 12/19/2023 Office Visit Cardiology Amaya Singleton PA-C [address] [facility] [place] [address] 04/08/2024 Office Visit Hematology Oncology Mario Kong MD [address] [place] [address] 06/30/2024 Imaging Radiology Health Maintenance Due Date Last Done Comments COVID-19 Vaccine (3 - Pfizer series) 04/14/2021 02/17/2021, 01/27/2021 Pneumococcal Vaccine: 65+ Years (2 - PCV) 02/24/2023 02/24/2022 Albumin/Creatinine Ratio 06/28/2023 06/28/2022 Influenza Vaccine (FLU shot) (#1) 2023 09/08/2021, 07/29/2020 Depression Screening 12/07/2023 12/07/2022 GFR 12/22/2023 06/21/2023, 06/12/2022, 03/21/2023, Additional history exists CKD PHOS USE SMARTSET 74660 03/16/202403/05, 03/29/2022, 05/13/2021, Additional history exists CKD HGB USE SMARTSET 27770 04/25/202404/25, 04/25/2023, 04/06/2023, Additional history exists Mammogram [...] encounter Medical Devices Implanted Type Area Supervisor Research Shop Device Identifier Shelf Expiration Date Model / Serial / Lot Animal Cell Therapiesention Hydrosoft 3d Implanted:Qty: 1 on 08/16/2018 by Aime Casas MD at OR [facility] N/A: Head [employer] : INTERVENTIONA 07/05/2023 [id number] / [id number] / [id number] Hd Offset Hum 46x16 - [id number] Implanted:Qty: 1 on 09/28/2020 by Teresa Rehman DO at OR [facility] Left: Shoulder DJO SURGICAL 06/17/2026 520-46-31 [id number] documented as of this encounter Advance Directives [...] and were consensually agreed upon. Care Teams Tensioning Machine Operator Relationship Specialty Start Date End Date March, Sotero Sutton MD [address] [place] [address] PCP - General Family Medicine 12/07/22 documented as of this encounter
--- OUTSIDE RECORDS SUMMARY | 2023-11-15 04:27 | External Medical Summary | Summary of Care ---
Author Name Unknown Organization [facility] Address [address] [facility] [place] [address] Phone [phone] Care Team Providers Care Telephone Solicitor Name Role Phone Sotero Pizano MD Primary Care Provider [phone] Reason for Visit * Reason Onset Date Comments [facility]: Maintenance 08/02/2023 Encounter Details Date Type Department Care Team Description 08/02/2023 Telephone [facility], [facility] [address] [facility], Nurse [facility] 132 [place] [address] [facility]: Maintenance Allergies Active Allergy [...] 03/15/2022 Active Vitamin D (Ergocalciferol) 1.25 MG (00864 UT) Oral Capsule TAKE ONE CAPSULE BY [...] mRNA, LNP-s, No Pre serve, 2-Dose Series (Vaimicom) 02/17/2021,01/27/2021 Pneumococcal Polysaccharide PPV23 (Pneumovax) Seasonal Influenza, [...] encounter Miscellaneous Notes * Telephone Encounter - Xu Donaldson PA-C - 08/02/2023 12:36 PM EDT [facility] Remote Medical Command Phone Encounter [facility] Phone Encounter Thank you for your assistance in the care of this patient today. Reviewed phone message regarding the patient's weight and [facility] findings. Please see below for the response [...] patient: Trigger type: Spoke with patient for [facility] weight trigger Patient reports she is noticing some increase in her restless leg symptoms. Also reporting increasein SOB and feeling abdominal bloating. States she started her DTP yesterday which is torsemide 30 mg in am and 30 mg in pm. Will add for calls next 24/48 hours. Advised patient to call with any increase in symptoms or changes Abnormal reading(s): [facility] ([facility]): Scale: Baseline weight: 3 lbs below 250 and 3 lbs above 360 lbs Trigger weight: 258.7 lbs; weight increased 5.9 lbs in 4 day(s) Trigger priority per [facility]: high Patient takes diuretic medication: Yes, reviewed [...] as applicable): [] Moderate trigger priority on [facility] [] Confirmed tympanic equivalent temperature 100.4-101.9 F [...] as applicable): [] High trigger priority on [facility] [] Confirmed tympanic equivalent temperature greater than [...] call scheduled Route to RNCM (Registered Nurse Foreign Clerk) and Advance Practitioner Route to RMC (Remote Medical Coordinator) documented in this encounter Plan of Treatment Upcoming Encounters Date Type Specialty Care Team Description 08/02/2023 Scheduled Telephone [facility] Donor Relations Officer, [address] [address] 08/03/2023 Scheduled Telephone [facility] Donor Relations Officer, [facility] [address] [place] [address] 08/04/2023 Scheduled Telephone [facility], Nurse [facility] [address] [place] [address] 08/07/2023 Office Visit Pain Medicine Elijah Nash DO [address] [place] [address] 08/22/2023 Office Visit Neurological Surgery Aime Casas MD [address] [place] [address] 08/24/2023 Home Visit [facility] Ladi Joseph RN [address] [place] [address] 08/27/2023 Office Visit Allergy & Immunology Brennan Wasserman MD 200 [place] [address] 11/23/2023 Office Visit Family Medicine Sotero Pizano MD [address] [place] [address] 11/27/2023 Office Visit Neurology Vernell Kimball PAEdie [address] [place], [place] [id number] 12/10/2023 Nurse Only [facility], Nurse [facility] [address] [place] [address] 12/19/2023 Office Visit Cardiology Amaya Singleton PAJeimyC [address] [place] [address] 04/08/2024 Office Visit Hematology Oncology Mario Kong MD 200 [place] [address] 06/30/2024 Imaging Radiology Health Maintenance Due Date Last Done Comments COVID-19 Vaccine (3 - Pfizer series) 04/14/2021 02/17/2021, 01/27/2021 Pneumococcal Vaccine: 65+ Years (2 - PCV) 02/24/2023 02/24/2022 Albumin/Creatinine Ratio 06/28/2023 06/28/2022 Influenza Vaccine (FLU shot) (#1) 2023 09/08/2021, 07/29/2020 Depression Screening 12/07/2023 12/07/2022 GFR 12/22/2023 06/21/2023, 06/0 12/2022, 03/21/2023, Additional history exists CKD PHOS USE SMARTSET 43296 03/16/202403/05, 03/29/2022, 05/13/2021, Additional history exists CKD HGB USE SMARTSET 11545 04/25/202404/25, 04/25/2023, 04/06/2023, Additional history exists Mammogram [...] this encounter Medical Devices Implanted Type Area Brine Supervisor Device Identifier Shelf Expiration Date Model / Serial / Lot Terumo Microvention Hydrosoft 3d Implanted:Qty: 1 on 08/16/2018 by Aime Casas MD at OR [facility] N/A: Head [employer] : INTERVENTIONA 07/05/2023 [id number] / [id number] / [id number] Hd Offset Hum 46x16 - [id number] Implanted:Qty: 1 on 09/28/2020 by Teresa Rehman DO at OR [facility] Left: Shoulder DJO SURGICAL 06/17/2026 520-46-31 6 / / [id number] documented as of this encounter Advance Directives [...] and were consensually agreed upon. Care Teams Telephone Solicitor Relationship Specialty Start Date End Date March, Sotero Sutton MD [address] [place] [address] PCP - General Family Medicine 12/07/22 documented as of this encounter
--- OUTSIDE RECORDS SUMMARY | 2023-11-15 04:27 | External Medical Summary | Summary of Care ---
Author Name Unknown Organization [facility] Address [address] [facility] [place] [address] Phone [phone] Care Team Providers Care Associate Partner Name Role Phone Maine Dumont MD Primary Care Provider [phone] Reason for Visit * Reason Onset Date Comments [facility]: Maintenance 07/25/2023 Encounter Details Date Type Department Care Team Description 07/25/2023 Telephone [facility], [facility] [address] [place] [address] Ladi Joseph RN [address] [place] [address] [facility]: Maintenance Allergies Active Allergy [...] 03/15/2022 Active Vitamin D (Ergocalciferol) 1.25 MG (11852 UT) Oral Capsule TAKE ONE CAPSULE BY [...] mRNA, LNP-s, No Pre serve, 2-Dose Series (SensiGen) 02/17/2021,01/27/2021 Pneumococcal Polysaccharide PPV23 (Pneumovax) Seasonal Influenza, [...] that she get all her meds from [facility] order pharmacy. Could you please send all of her scripts there so she can start getting them delivered? Thank you!! documented in this encounter Plan of Treatment Upcoming Encounters Date Type Specialty Care Team Description 08/02/2023 Scheduled Telephone [facility] Classics Professor, [facility] [address] [place] [address] 08/03/2023 Scheduled Telephone [facility] Classics Professor, [facility] 132 [facility] [place] [address] 08/04/2023 Scheduled Telephone [facility] [place], Nurse Linda Mills [address] [place] [address] 08/07/2023 Office Visit Pain Medicine Cousinsampson Elijah OmerDO [address] [place] [address] 08/22/2023 Office Visit Neurological Surgery Aime Casas MD [address] [place] [address] 08/24/2023 Home Visit [facility] Ladi Joseph RN [address] [place] [address] 08/27/2023 Office Visit Allergy & Immunology Brennan Wasserman MD 200 [facility] [place] [facility] [address] 11/23/2023 Office Visit Family Medicine Maine Dumont MD [address] [place] [address] 11/27/2023 Office Visit Neurology Vernell Kimball PAJeimyC [address] [place] [address] 12/10/2023 Nurse Only [facility], Nurse [facility] [address] [place] [address] 12/19/2023 Office Visit Cardiology Amaya Singleton PAJeimyC [address] [facility] [place] [address] 04/08/2024 Office Visit Hematology Oncology Mario Kong MD [address] [place] [address] 06/30/2024 Imaging Radiology Health Maintenance Due Date Last Done Comments COVID-19 Vaccine (3 - Pfizer series) 04/14/2021 02/17/2021, 01/27/2021 Pneumococcal Vaccine: 65+ Years (2 - PCV) 02/24/2023 02/24/2022 Albumin/Creatinine Ratio 06/28/2023 06/28/2022 Influenza Vaccine (FLU shot) (#1) 2023 09/08/2021, 07/29/2020 Depression Screening 12/07/2023 12/07/2022 GFR 12/22/2023 06/21/2023, 12/2022, 03/21/2023, Additional history exists CKD PHOS USE SMARTSET 88529 03/16/202403/05, 03/29/2022, 05/13/2021, Additional history exists CKD HGB USE SMARTSET 54646 04/25/202404/25, 04/25/2023, 04/06/2023, Additional history exists Mammogram [...] this encounter Medical Devices Implanted Type Area Rail Doweling Machine Operator Device Identifier Shelf Expiration Date Model / Serial / Lot Terumo Microvention Hydrosoft 3d Implanted:Qty: 1 on 08/16/2018 by Aime Casas MD at OR [facility] N/A: Head [employer] : INTERVENTIONA 07/05/2023 [id number] / [id number] / [id number] Hd Offset Hum 46x16 - [id number] Implanted:Qty: 1 on 09/28/2020 by Teresa Rehman DO at OR [facility] Left: Shoulder DJO SURGICAL 06/17/2026 520-46-31 [id number] documented as of this encounter Visit Diagnoses [...] and were consensually agreed upon. Care Teams Associate Partner Relationship Specialty Start Date End Date March, Maine Sutton MD [address] [place] [address] PCP - General Family Medicine 12/07/22 documented as of this encounter
--- OUTSIDE RECORDS SUMMARY | 2023-11-15 04:27 | External Medical Summary | Summary of Care ---
Author Name Unknown Organization [facility] Address [address] [facility] [place] [address] Phone [phone] Care Team Providers Care Supervisor Mirror Fabrication Name Role Phone Maine Dumont MD Primary Care Provider [phone] Reason for Visit * Reason Onset Date Comments [facility]: Maintenance 07/25/2023 Encounter Details Date Type Department Care Team Description 07/25/2023 Telephone [facility], [facility] [address] [place] [address] Ladi Joseph RN [address] [place] [address] [facility]: Maintenance Allergies Active Allergy [...] 03/15/2022 Active Vitamin D (Ergocalciferol) 1.25 MG (12636 UT) Oral Capsule TAKE ONE CAPSULE BY [...] mRNA, LNP-s, No Pre serve, 2-Dose Series (ScoreGrid) 02/17/2021,01/27/2021 Pneumococcal Polysaccharide PPV23 (Pneumovax) Seasonal Influenza, [...] that she get all her meds from [facility] order pharmacy. Could you please send all of her scripts there so she can start getting them delivered? Thank you!! documented in this encounter Plan of Treatment Upcoming Encounters Date Type Specialty Care Team Description 08/03/2023 Scheduled Telephone [facility] Supervisory Civil Engineer, [place] [address] [place] [address] 08/04/2023 Scheduled Telephone [facility], Nurse [place] [address] [place] [address] 08/07/2023 Office Visit Pain Medicine Elijah Nash DO [address] [place] [address] 08/22/2023 Office Visit Neurological Surgery Aime Casas MD [address] [place] [address] 08/24/2023 Home Visit [facility] Ladi Joseph RN [address] [place] [address] 08/27/2023 Office Visit Allergy & Immunology Brennan Wasserman MD 200 [place] [address] 11/23/2023 Office Visit Family Medicine Maine Dumont MD [address] [place] [address] 11/27/2023 Office Visit Neurology Vernell Kimball PA-C [address] [place] [address] 12/10/2023 Nurse Only [facility] Nurse [facility] [address] [place] [address] 12/19/2023 Office Visit Cardiology Amaya Singleton PA-C [address] [place] [address] 04/08/2024 Office Visit Hematology Oncology Mario Kong MD 200 [place] [address] 06/30/2024 Imaging Radiology Health Maintenance Due Date Last Done Comments COVID-19 Vaccine (3 - Pfizer series) 04/14/2021 02/17/2021, 01/27/2021 Pneumococcal Vaccine: 65+ Years (2 - PCV) 02/24/2023 02/24/2022 Albumin/Creatinine Ratio 06/28/2023 06/28/2022 Influenza Vaccine (FLU shot) (#1) 2023 09/08/2021, 07/29/2020 Depression Screening 12/07/2023 12/07/2022 GFR 12/22/2023 06/21/2023, 06/12/2022, 03/21/2023, Additional history exists CKD PHOS USE SMARTSET 78795 03/16/202403/05, 03/29/2022, 05/13/2021, Additional history exists CKD HGB USE SMARTSET 19894 04/25/202404/25, 04/25/2023, 04/06/2023, Additional history exists Mammogram [...] this encounter Medical Devices Implanted Type Area Plant Tour Guide Device Identifier Shelf Expiration Date Model / Serial / Lot Atlas Learning Microvention Hydrosoft 3d Implanted:Qty: 1 on 08/16/2018 by Aime Casas MD at OR [facility] N/A: Head [employer] : INTERVENTIONA 07/05/2023 [id number] / [id number] / [id number] Hd Offset Hum 46x16 - [id number] Implanted:Qty: 1 on 09/28/2020 by Teresa Rehman, at OR [facility] Left: Shoulder DJO SURGICAL 06/17/2026 520-46-31 [id number] documented as of this encounter Visit Diagnoses [...] and were consensually agreed upon. Care Teams Supervisor Mirror Fabrication Relationship Specialty Start Date End Date March, Manie Sutton MD [address] [place] [address] PCP - General Family Medicine 12/07/22 documented as of this encounter
--- OUTSIDE RECORDS SUMMARY | 2023-11-15 04:27 | External Medical Summary | Summary of Care ---
Author Name Unknown Organization [facility] Address [address] [facility] [place] [address] Phone [phone] Care Team Providers Care Casting Machine Control Board Operator Name Role Phone Sotero Pizano MD Primary Care Provider [phone] Reason for Visit * Reason Onset Date Comments [facility]: Maintenance 08/02/2023 Encounter Details Date Type Department Care Team Description 08/02/2023 Telephone [facility], [facility] [address] [facility], Nurse [facility] 132 [place] [address] [facility]: Maintenance Allergies Active Allergy [...] 03/15/2022 Active Vitamin D (Ergocalciferol) 1.25 MG (33541 UT) Oral Capsule TAKE ONE CAPSULE BY [...] Series (mydeco) 02/17/2021,01/27/2021 Pneumococcal Polysaccharide PPV23 (Pneumovax) Seasonal Influenza, [...] Encounter - Regina Wheat LPN - 08/02/2023 1:11 PM EDT Noted thank you * Telephone Encounter - Mandeep Urias DO [...] Medical Command Phone Encounter [facility] Phone Encounter Thank you for your assistance [...] patient: Trigger type: Spoke with patient for [facility] weight trigger Patient reports she is noticing some increase in her restless leg symptoms. Also reporting increasein SOB and feeling abdominal bloating. States she started her DTP yesterday which is torsemide 30 mg in am and 30 mg in pm. Will add for calls next 24/48 hours. Advised patient to call with any increase in symptoms or changes Abnormal reading(s): [facility] ([facility]): Scale: Baseline weight: 3 lbs below 250 and 3 lbs above 360 lbs Trigger weight: 258.7 lbs; weight increased 5.9 lbs in 4 day(s) Trigger priority per [facility]: high Patient takes diuretic medication: Yes, reviewed [...] call scheduled Route to RNCM (Registered Nurse Supervisor Cellars) and Advance Practitioner Route to RM (Remote Medical Coordinator) documented in this encounter Plan of Treatment Upcoming Encounters Date Type Specialty Care Team Description 08/02/2023 Scheduled Telephone [facility] Infantry Indirect Fire Crewmember, [facility] [address] [place], [place] [address] [address] 08/03/2023 Scheduled Telephone [facility] Infantry Indirect Fire Crewmember, [facility] [address] [place] [address] 08/04/2023 Scheduled Telephone [facility], Nurse [facility] [address] [place] [address] 08/07/2023 Office Visit Pain Medicine Elijah Nash DO [address] [place] [address] 08/22/2023 Office Visit Neurological Surgery Aime Casas MD [address] [facility] [place] [phone] 08/24/2023 Home Visit [facility] Ladi Joseph RN [address] [place] [address] 08/27/2023 Office Visit Allergy & Immunology Brennan Wasserman MD [address] [place] [address] 11/23/2023 Office Visit Family Medicine Sotero Pizano MD [address] [place] [address] 11/27/2023 Office Visit Neurology Vernell Kimball PA-C [address] [place] [address] 12/10/2023 Nurse Only Nurse [facility] [address] [place] [address] 12/19/2023 Office Visit Cardiology Amaya Singleton PA-C [address] [place] [address] 04/08/2024 Office Visit Hematology Oncology Mario Kong MD [address] [place], [place] [address] [address] 06/30/2024 Imaging Radiology Health Maintenance Due Date Last Done Comments COVID-19 Vaccine (3 - Pfizer series) 04/14/2021 02/17/2021, 01/27/2021 Pneumococcal Vaccine: 65+ Years (2 - PCV) 02/24/2023 02/24/2022 Albumin/Creatinine Ratio 06/28/2023 06/28/2022 Influenza Vaccine (FLU shot) (#1) 2023 09/08/2021, 07/29/2020 Depression Screening 12/07/2023 12/07/2022 GFR 12/22/2023 06/21/2023, 12/2022, 03/21/2023, Additional history exists CKD PHOS USE SMARTSET 20831 03/16/202403/05, 03/29/2022, 05/13/2021, Additional history exists CKD HGB USE SMARTSET 41073 04/25/202404/25, 04/25/2023, 04/06/2023, Additional history exists Mammogram [...] this encounter Medical Devices Implanted Type Area Counter Pocket Sewer Device Identifier Shelf Expiration Date Model / Serial / Lot Terumo Microvention Hydrosoft 3d Implanted:Qty: 1 on 08/16/2018 by Aime Casas MD at OR [facility] N/A: Head [employer] : INTERVENTIONA 07/05/2023 [id number] / [id number] / [id number] Hd Offset Hum 46x16 - [id number] Implanted:Qty: 1 on 09/28/2020 by Teresa Rehman DO at OR [facility] Left: Shoulder DJO SURGICAL 06/17/2026 520-46-31 6 / / [id number] documented as of this encounter Advance Directives [...] and were consensually agreed upon. Care Teams Casting Machine Control Board Operator Relationship Specialty Start Date End Date March, Sotero Sutton MD [address] [place], [place] [id number] PCP - General Family Medicine 12/07/22 documented as of this encounter
--- OUTSIDE RECORDS SUMMARY | 2023-11-15 04:27 | External Medical Summary | Summary of Care ---
Author Name Unknown Organization [facility] Address [address] [facility] [place] [address] Phone [phone] Care Team Providers Care Trade Analyst Name Role Phone Maine Dumont MD Primary Care Provider [phone] Reason for Visit * Reason Onset Date Comments [facility]: Maintenance 07/25/2023 Encounter Details Date Type Department Care Team Description 07/25/2023 Telephone [facility], [facility] [address] [place] [address] Ladi Joseph RN [address] [place] [address] [facility]: Maintenance Allergies Active Allergy [...] 03/15/2022 Active Vitamin D (Ergocalciferol) 1.25 MG (63943 UT) Oral Capsule TAKE ONE CAPSULE BY [...] mRNA, LNP-s, No Pre serve, 2-Dose Series (GMI [employer]ings) 02/17/2021,01/27/2021 Pneumococcal Polysaccharide PPV23 (Pneumovax) Seasonal Influenza, [...] 11:29 AM * Telephone Encounter - Maine Duomnt MD - 07/29/2023 9:14 PM EDT Meds sent to mail order. Maine Dumont MD * Telephone Encounter - Ladi Joseph RN - 07/25/2023 3:[address] Dumont Pt is requesting that she get all her meds from [facility] pharmacy. Could you please send all of her scripts there so she can start getting them delivered? Thank you!! documented in this encounter Plan of Treatment Upcoming Encounters Date Type Specialty Care Team Description 08/02/2023 Scheduled Telephone [facility] at Polymer Specialist, [facility] Central Field [address] [place] [address] [place] [address] 08/07/2023 Office Visit Pain Medicine Cousins, Elijah Omer DO [address] [place] [address] 08/22/2023 Office Visit Neurological Surgery Aime Casas MD [address] [place] [address] 08/24/2023 [facility] Ladi Joseph, RN [address] [facility] [place] [address] 08/27/2023 Office Visit Allergy & Immunology Brennan Wasserman MD 200 [place] [address] 11/23/2023 Office Visit Family Medicine Maine Dumont MD [address] [place] [address] 11/27/2023 Office Visit Neurology Vernell Kimball PA-C [address] [place] [address] 12/10/2023 Nurse Only [facility], Nurse [facility] [address] [place] [address] 12/19/2023 Office Visit Cardiology Amaya Singleton PA-C [address] [facility] [place] [address] 04/08/2024 Office Visit Hematology Oncology Mario Kong MD 200 [place] [address] 06/30/2024 Imaging Radiology Health Maintenance Due Date Last Done Comments COVID-19 Vaccine (3 - Pfizer series) 04/14/2021 02/17/2021, 01/27/2021 Pneumococcal Vaccine: 65+ Years (2 - PCV) 02/24/2023 02/24/2022 Albumin/Creatinine Ratio 06/28/2023 06/28/2022 Influenza Vaccine (FLU shot) (#1) 2023 09/08/2021, 07/29/2020 Depression Screening 12/07/2023 12/07/2022 GFR 12/22/2023 06/21/2023, 06/0 12/2022, 03/21/2023, Additional history exists CKD PHOS USE SMARTSET 95175 03/16/202403/05, 03/29/2022, 05/13/2021, Additional history exists CKD HGB USE SMARTSET 27368 04/25/202404/25, 04/25/2023, 04/06/2023, Additional history exists Mammogram [...] this encounter Medical Devices Implanted Type Area Derrick Car Operator Device Identifier Shelf Expiration Date Model / Serial / Lot Terumo Microvention Hydrosoft 3d Implanted:Qty: 1 on 08/16/2018 by Aime Casas MD at OR [facility] N/A: Head [employer] : INTERVENTIONA 07/05/2023 [id number] / [id number] / [id number] Hd Offset Hum 46x16 - [id number] Implanted:Qty: 1 on 09/28/2020 by Teresa Rehman DO at OR [facility] Left: Shoulder DJO SURGICAL 06/17/2026 520-46-31 [id number] documented as of this encounter Visit Diagnoses [...] and were consensually agreed upon. Care Teams Trade Analyst Relationship Specialty Start Date End Date March, Maine Sutton MD [address] [place] [address] PCP - General Family Medicine 12/07/22 documented as of this encounter
--- OUTSIDE RECORDS SUMMARY | 2023-11-15 04:28 | External Medical Summary | Summary of Care ---
Author Name Unknown Organization [facility] Address [address] [facility] [place] [place] [address] Phone [phone] Care Team Providers Care Perinatal Specialist Name Role Phone Sotero Pizano MD Primary Care Provider [phone] Reason for Visit * Reason Onset Date Comments [facility]: Maintenance 07/31/2023 Encounter Details Date Type Department Care Team Description 07/31/2023 Scheduled Telephone [facility], [facility] [address] [facility] [place] [address] Coordinator, [facility] [address] [place] [address] Allergies Active Allergy Reactions Severity Noted Date [...] as of this encounter (statuses as of 07/31/2023) Medications Medication Sig Dispensed Refills Start Date [...] 03/15/2022 Active Vitamin D (Ergocalciferol) 1.25 MG (40093 UT) Oral Capsule TAKE ONE CAPSULE BY [...] as of this encounter (statuses as of 07/31/2023) Active Problems Problem Noted Date Iron deficiency [...] as of this encounter (statuses as of 07/31/2023) Resolved Problems Problem Noted Date Resolved Date [...] as of this encounter (statuses as of 07/31/2023) Immunizations Name Administration Dates Next Due COVID-19 [...] encounter Miscellaneous Notes * Telephone Encounter - Shari Dutta LPN - 07/31/2023 9:28 AM EDT Images from the original note were not included. Call to patient for weight follow up Left message to return call with any issue documented in this encounter Plan of Treatment Upcoming Encounters Date Type Specialty Care Team Description 08/01/2023 Scheduled Telephone [facility] Casework Specialist, [facility] [address] [place] [address] 08/07/2023 Office Visit Pain Medicine Elijah Nash DO [address] [place] [address] 08/22/2023 Office Visit Neurological Surgery Aime Casas MD [address] [place] [address] 08/24/2023 Home Visit [facility] Ladi Joseph RN [address] [place] [address] 08/27/2023 Office Visit Allergy & Immunology Brennan Wasserman MD [address] [place] [address] 11/23/2023 Office Visit Family Medicine Sotero Pizano MD [address] [place] [address] 11/27/2023 Office Visit Neurology Vernell Kimball PA-C [address] [place] [address] 12/10/2023 Nurse Only [facility] [place], [facility] [address] [facility] [address] 12/19/2023 Office Visit Cardiology Amaya Singleton PA-C [address] [place] [address] 04/08/2024 [facility]emat[facility]cology [facility] [address] 06/30/2024 Imaging Radiology Health Maintenance Due Date Last Done Comments COVID-19 Vaccine (3 - Pfizer series) 04/14/2021 02/17/2021, 01/27/2021 Pneumococcal Vaccine: 65+ Years (2 - PCV) 02/24/2023 02/24/2022 Albumin/Creatinine Ratio 06/28/2023 06/28/2022 Influenza Vaccine (FLU shot) (#1) 2023 09/08/2021, 07/29/2020 Depression Screening 12/07/2023 12/07/2022 GFR 12/22/2023 06/21/2023, 06/12/2022, 03/21/2023, Additional history exists CKD PHOS USE SMARTSET 19832 03/16/202403/05, 03/29/2022, 05/13/2021, Additional history exists CKD HGB USE SMARTSET 96715 04/25/202404/25, 04/25/2023, 04/06/2023, Additional history exists Mammogram [...] this encounter Medical Devices Implanted Type Area Automobile Tire Builder Device Identifier Shelf Expiration Date Model / Serial / Lot Terumo Microvention Hydrosoft 3d Implanted:Qty: 1 on 08/16/2018 by Aime Casas MD at OR [facility] [place] N/A: Head [employer] : INTERVENTIONA 07/05/2023 [id number] / [id number] / [id number] Hd Offset Hum 46x16 - [id number] Implanted:Qty: 1 on 09/28/2020 by Teresa Rehman DO at OR [facility] Left: Shoulder DJO SURGICAL 06/17/2026 520-46-31 6 / / [id number] documented as of this encounter Advance Directives [...] and were consensually agreed upon. Care Teams Perinatal Specialist Relationship Specialty Start Date End Date March, Sotero Sutton MD [address] [facility] [place] [address] PCP - General Family Medicine 12/07/22 documented as of this encounter
--- OUTSIDE RECORDS SUMMARY | 2023-11-15 04:28 | External Medical Summary | Summary of Care ---
Author Name Unknown Organization [facility] Address [address] [facility] [place] [address] Phone [phone] Care Team Providers Care Liaison Planner Name Role Phone Maine Dumont MD Primary Care Provider [phone] Reason for Visit * Reason Onset Date Comments [facility]: Maintenance 07/25/2023 Encounter Details Date Type Department Care Team Description 07/25/2023 Telephone [facility], [facility] [address] [place] [address] Ladi Joseph RN [address] [place] [address] [facility]: Maintenance Allergies Active Allergy [...] as of this encounter (statuses as of 08/01/2023) Medications Medication Sig Dispensed Refills Start Date [...] 03/15/2022 Active Vitamin D (Ergocalciferol) 1.25 MG (84812 UT) Oral Capsule TAKE ONE CAPSULE BY [...] as of this encounter (statuses as of 08/01/2023) Active Problems Problem Noted Date Iron deficiency [...] as of this encounter (statuses as of 08/01/2023) Resolved Problems Problem Noted Date Resolved Date [...] as of this encounter (statuses as of 08/01/2023) Immunizations Name Administration Dates Next Due COVID-19 mRNA, LNP-s, No Pre serve, 2-Dose Series (Privy) 02/17/2021,01/27/2021 Pneumococcal Polysaccharide PPV23 (Pneumovax) Seasonal Influenza, [...] that she get all her meds from [facility]. Could you please send all of her scripts there so she can start getting them delivered? Thank you!! documented in this encounter Plan of Treatment Upcoming Encounters Date Type Specialty Care Team Description 08/01/2023 Scheduled Telephone [facility] [employer] History Teacher, Linda Zimmerman [address] [place] [address] 08/07/2023 Office Visit Pain Medicine Cousins, Elijah Omer DO [address] [place] [address] 08/22/2023 Office Visit Neurological Surgery Aime Casas MD [address] [place] [address] 08/24/2023 Home Visit [facility] Ladi Joseph, RN [address] [facility] [place] [id number] 08/27/2023 Office Visit Allergy & Immunology Brennan Wasserman MD [address] [place] [address] 11/23/2023 Office Visit Family Medicine Maine Dumont MD [address] [place] [address] 11/27/2023 Office Visit Neurology Vernell Kimball PA-C [address] [place] [address] 12/10/2023 Nurse Only [facility], Nurse [facility] [address] [place] [address] 12/19/2023 Office Visit Cardiology Amaya Singleton PA-C [address] [facility] [place] [address] 04/08/2024 Office Visit Hematology Oncology Mario Kong MD [address] [place] [address] 06/30/2024 Imaging Radiology Health Maintenance Due Date Last Done Comments COVID-19 Vaccine (3 - Pfizer series) 04/14/2021 02/17/2021, 01/27/2021 Pneumococcal Vaccine: 65+ Years (2 - PCV) 02/24/2023 02/24/2022 Albumin/Creatinine Ratio 06/28/2023 06/28/2022 Influenza Vaccine (FLU shot) (#1) 2023 09/08/2021, 07/29/2020 Depression Screening 12/07/2023 12/07/2022 GFR 12/22/2023 06/21/2023, 06/0 12/2022, 03/21/2023, Additional history exists CKD PHOS USE SMARTSET 36381 03/16/202403/05, 03/29/2022, 05/13/2021, Additional history exists CKD HGB USE SMARTSET 35952 04/25/202404/25, 04/25/2023, 04/06/2023, Additional history exists Mammogram [...] this encounter Medical Devices Implanted Type Area Senior Manager Mmcoe Device Identifier Shelf Expiration Date Model / Serial / Lot Terumo Microvention Hydrosoft 3d Implanted:Qty: 1 on 08/16/2018 by Aime Casas MD at [place] [facility] [place] N/A: Head [employer] : INTERVENTIONA 07/05/2023 [id number] / [id number] / [id number] Hd Offset Hum 46x16 - [id number] Implanted:Qty: 1 on 09/28/2020 by Teresa Rehman DO at OR [facility] Left: Shoulder DJO SURGICAL 06/17/2026 520-46-31 [id number] documented as of this encounter Visit Diagnoses [...] and were consensually agreed upon. Care Teams Liaison Planner Relationship Specialty Start Date End Date March, Maine Sutton MD [address] [place] [address] PCP - General Family Medicine 12/07/22 documented as of this encounter
--- OUTSIDE RECORDS SUMMARY | 2023-11-15 04:28 | External Medical Summary | Summary of Care ---
Author Name Unknown Organization [facility] Address [address] [facility] [place] [address] Phone [phone] Care Team Providers Care Cafeteria Server Name Role Phone Maine Dumont MD Primary Care Provider [phone] Reason for Visit * Reason Onset Date Comments [facility]: Maintenance 07/25/2023 Encounter Details Date Type Department Care Team Description 07/25/2023 Telephone [facility], [facility] [address] [place] [address] Ladi Joseph RN [address] [place] [address] [facility]: Maintenance Allergies Active Allergy [...] 03/15/2022 Active Vitamin D (Ergocalciferol) 1.25 MG (39872 UT) Oral Capsule TAKE ONE CAPSULE BY [...] mRNA, LNP-s, No Pre serve, 2-Dose Series ([employer]) 02/17/2021,01/27/2021 Pneumococcal Polysaccharide PPV23 (Pneumovax) Seasonal Influenza, [...] that she get all her meds from [facility] pharmacy. Could you please send all of her scripts there so she can start getting them delivered? Thank you!! documented in this encounter Plan of Treatment Upcoming Encounters Date Type Specialty Care Team Description 08/02/2023 Scheduled Telephone [facility] at Can Striper, [facility] [address] [place] [address] [place] [address] 08/07/2023 Office Visit Pain Medicine Cousins, Elijah Omer DO [address] [place] [address] 08/22/2023 Office Visit Neurological Surgery Aime Casas MD [address] [place] [address] 08/24/2023 Home Visit [facility] Ladi Joseph, RN [address] [facility] [place] [address] 08/27/2023 Office Visit Allergy & Immunology Brennan Wasserman MD [address] [place] [place] [address] 11/23/2023 Office Visit Family Medicine Maine Dumont MD [address] [place] [address] 11/27/2023 Office Visit Neurology Vernell Kimball PA-C [address] [place] [address] 12/10/2023 Nurse Only [facility], Nurse Annual [facility] [address] [place] [address] 12/19/2023 Office Visit Cardiology Amaya Singleton PA-C [address] [facility] [place] [address] 04/08/2024 Office Visit Hematology Oncology Mario Kong MD [address] [place] [place] [address] 06/30/2024 Imaging Radiology Health Maintenance Due Date Last Done Comments COVID-19 Vaccine (3 - Pfizer series) 04/14/2021 02/17/2021, 01/27/2021 Pneumococcal Vaccine: 65+ Years (2 - PCV) 02/24/2023 02/24/2022 Albumin/Creatinine Ratio 06/28/2023 06/28/2022 Influenza Vaccine (FLU shot) (#1) 2023 09/08/2021, 07/29/2020 Depression Screening 12/07/2023 12/07/2022 GFR 12/22/2023 06/21/2023, 06/0 12/2022, 03/21/2023, Additional history exists CKD PHOS USE SMARTSET 55488 03/16/202403/05, 03/29/2022, 05/13/2021, Additional history exists CKD HGB USE SMARTSET 01176 04/25/202404/25, 04/25/2023, 04/06/2023, Additional history exists Mammogram [...] this encounter Medical Devices Implanted Type Area Used Car Make Ready Mechanic Device Identifier Shelf Expiration Date Model / Serial / Lot Terumo Microvention Hydrosoft 3d Implanted:Qty: 1 on 08/16/2018 by Aime Casas MD at [place] [facility] [place]/A: Head [employer] : INTERVENTIONA 07/05/2023 [id number] / [id number] / [id number] Hd Offset Hum 46x16 - [id number] Implanted:Qty: 1 on 09/28/2020 by Teresa Rehman DO at OR [facility] Left: Shoulder DJO SURGICAL 06/17/2026 520-46-31 [id number] documented as of this encounter Visit Diagnoses [...] and were consensually agreed upon. Care Teams Cafeteria Server Relationship Specialty Start Date End Date March, Maine Sutton MD [address] [place] [address] PCP - General Family Medicine 12/07/22 documented as of this encounter
--- OUTSIDE RECORDS SUMMARY | 2023-11-15 04:28 | External Medical Summary | Summary of Care ---
Author Name Unknown Organization [facility] Address [address] [facility] [place] [address] Phone [phone] Care Team Providers Care Appraiser Boats And Marine Name Role Phone Sotero Pizano MD Primary Care Provider [phone] Reason for Visit * Reason Onset Date Comments [facility]: Maintenance 07/30/2023 Encounter Details Date Type Department Care Team Description 07/30/2023 Telephone [facility], [facility] [address] [facility], Nurse [facility] [address] [place] [address] [facility]: Maintenance Allergies Active Allergy [...] as of this encounter (statuses as of 07/30/2023) Medications Medication Sig Dispensed Refills Start Date [...] 03/15/2022 Active Vitamin D (Ergocalciferol) 1.25 MG (27704 UT) Oral Capsule TAKE ONE CAPSULE BY [...] as of this encounter (statuses as of 07/30/2023) Active Problems Problem Noted Date Iron deficiency [...] as of this encounter (statuses as of 07/30/2023) Resolved Problems Problem Noted Date Resolved Date [...] as of this encounter (statuses as of 07/30/2023) Immunizations Name Administration Dates Next Due COVID-19 mRNA, LNP-s, No Pre serve, 2-Dose Series ([employer]) 02/17/2021,01/27/2021 Pneumococcal Polysaccharide PPV23 (Pneumovax) Seasonal Influenza, [...] Telephone Encounter - Shari Dutta LPN - 07/30/2023 3:49 PM EDT Call to patient to start DTP Follow up calls are scheduled Spoke to patient and made aware of DTP instructions Verbalized understanding and will call with any urgent issues * Addendum Note - Eligio Urias DO - 07/30/2023 11:11 AM EDTAddended by: ELIGIO URIAS on: 07/30/2023 11:11 AM Modules accepted: Orders * Telephone Encounter - Eligio Urias DO - 07/30/2023 11:11 AM EDT [facility] Remote Medical Command [facility] Phone Encounter Reviewed phone message regarding the patient's weight and [facility] findings. Please see below for the response to the [facility] trigger: Problem List Items Addressed This Visit None Addt'l Comments: Placed DTP order to double dose of torsemide for 3 days which is additional 20mg in AM and 10 mg inPM Routed to the [facility] Pool and any relevant parties Thank you in advance, I appreciate it. DO [facility] 07/30/2023 * Telephone Encounter - Regina Wheat, CHALK EXTRUDING MACHINE OPERATOR - 07/30/2023 10:43 AM EDT Images from the original note were not included. [facility] Remote Patient Monitoring Spoke to patient for weight gain per [facility] Patient states yesterday she drank almost double what she normally does but was adhering to salt restriction. Also states she has edema in BLE and shortness of breath Per sticky note DTP is an extra 20 mg of torsemide but patient states that she normally takes extra20 mg in am and extra 10 mg in pm x's 3 days. Would like the verify with care team/[facility] before starting DTP Patient is also on for f/u calls for the next 2 days Able to contact patient: Trigger type: Abnormal reading(s): [facility] ([facility]): Scale: Baseline weight: 250 +/- 3 lbs Trigger weight: 256.5 lbs; weight increased 3.7 lbs in 1 day(s) Trigger priority per [facility]: high Patient takes diuretic medication: Yes, reviewed current diuretic use: Name of medication: torsemide Dose: 10 mg Frequency: 20 mg in am and 10 mg in pm Symptom review: Edema: BLE SOB: with exertion more than usual Diet Reviewed: No, adhering to salt restriction Fluid Intake Reviewed: Yes. Patient is on a fluid restriction: Yes, restriction amount in milliliters or liters: 2 liters Adherent to restriction: No, patient states yesterday she drank almost double what she normally does. Self-Management Plan Reviewed: Red Flags: legs feeling more hard or tight, increase in SOB, weight gain of 2 lbs in 48 hours or 5 lbs in 1 week DTP (Diuretic Titration Protocol): Describe DTP: Name of medication(s): torsemide Dose: 20 mg Frequency: extra PRN Used in past 2 weeks: No Risk assignment recommendation: Moderate risk findings (check as applicable): [] Moderate trigger priority on [facility] [] Confirmed tympanic equivalent temperature 100.4-101.9 F one hour post administration of antipyretic [x] Weight gain of 2.1-4.9 lbs over 1-2 days [] Confirmed new sustained resting HR greater than 105WITHOUT symptoms [] Weight gain of greater than [...] tympanic equivalent temperature less than 96 F [] Weight gain of greater than or equal to 5 lbs in 5 days WITH heart failure symptoms [] Confirmednew sustained resting HR greater than 105 WITH symptoms [] Severe heart failure symptoms [] Confirmed new sustained resting HR less than 60 WITH symptoms [] Severe COPD symptoms [] Confirmed SBP less than 90 WITH symptoms [] Confirmed new SpO2 less than 90% [] Confirmed SBP greater than 170 WITH symptoms [] Confirmed DBP greater than 90 WITH symptoms Additional risk selection justification: N/A Overall risk and identified plan: Moderate risk: Route to RNCM (Registered Nurse Fixed Interest Dealer) and Advance Practitioner Route to RMC (Remote Medical Coordinator) documented in this encounter Plan of Treatment Upcoming Encounters Date Type Specialty Care Team Description 07/31/2023 Scheduled Telephone [facility] Vice President Integrated, [facility] [address] [place] [address] 08/01/2023 Scheduled Telephone [facility] Vice President Integrated, [facility] [address] [place] [address] 08/07/2023 Office Visit Pain Medicine Elijah Nash DO [address] [place] [address] 08/22/2023 Office Visit Neurological Surgery Aime Casas MD [address] [place] [address] 08/24/2023 [facility] Visit [facility] Ladi Joseph RN [address] [place] [address] 08/27/2023 Office Visit Allergy & Immunology Brennan Wasserman MD [address] [place] [address] 11/23/2023 Office Visit Family Medicine Sotero Pizano MD [address] [place] [address] 11/27/2023 Office Visit Neurology Vernell Kimball PA-C [address] [place] [address] 12/10/2023 Nurse Only [facility] Nurse Annual [facility] [address] [place] [address] 12/19/2023 Office Visit Cardiology Amaya Singleton PA-C [address] [place] [address] 04/08/2024 Office Visit Hematology Oncology Mario Kong MD [address] [place] [address] 06/30/2024 Imaging Radiology Health Maintenance Due Date Last Done Comments COVID-19 Vaccine (3 - Pfizer series) 04/14/2021 02/17/2021, 01/27/2021 Pneumococcal Vaccine: 65+ Years (2 - PCV) 02/24/2023 02/24/2022 Albumin/Creatinine Ratio 06/28/2023 06/28/2022 Influenza Vaccine (FLU shot) (#1) 2023 09/08/2021, 07/29/2020 Depression Screening 12/07/2023 12/07/2022 GFR 12/22/2023 06/21/2023, [address]12/2022, 03/21/2023, Additional history exists CKD PHOS USE SMARTSET 68392 03/16/202403/05, 03/29/2022, 05/13/2021, Additional history exists CKD HGB USE SMARTSET 00068 04/25/202404/25, 04/25/2023, 04/06/2023, Additional history exists Mammogram [...] this encounter Medical Devices Implanted Type Area Deck Engine Operator Device Identifier Shelf Expiration Date Model / Serial / Lot Terumo Microvention Hydrosoft 3d Implanted:Qty: 1 on 08/16/2018 by Aime Casas MD at [place] [facility] [place] N/A: Head [employer] : INTERVENTIONA 07/05/2023 [id number] / [id number] / [id number] Hd Offset Hum 46x16 - [id number] Implanted:Qty: 1 on 09/28/2020 by Teresa Rehman DO at OR [facility] [place] Left: Shoulder DJO SURGICAL 06/17/2026 520-46-31 6 / [id number] documented as of this encounter Advance Directives [...] and were consensually agreed upon. Care Teams Appraiser Boats And Marine Relationship Specialty Start Date End Date March, Sotero Sutton MD [address] [place] [address] PCP - General Family Medicine 12/07/22 documented as of this encounter
--- OUTSIDE RECORDS SUMMARY | 2023-11-15 04:28 | External Medical Summary | Summary of Care ---
Author Name Unknown Organization [facility] Address [address] [facility] [place] [place] [address] Phone [phone] Care Team Providers Care Electronic Musical Instrument Repairer Name Role Phone Sotero Pizano MD Primary Care Provider [phone] Reason for Visit * Reason Onset Date Comments [facility]: Maintenance 08/01/2023 Encounter Details Date Type Department Care Team Description 08/01/2023 Scheduled Telephone [facility], [facility] [address] [facility] [place] [address] Coordinator, [facility] [address] [place] [address] Allergies Active Allergy Reactions Severity Noted Date [...] 03/15/2022 Active Vitamin D (Ergocalciferol) 1.25 MG (28205 UT) Oral Capsule TAKE ONE CAPSULE BY [...] Telephone Encounter - Sheri Taylor RN - 08/01/2023 10:32 AM EDT Images from the original note were not included. [facility] Telephonic Nurse Follow-Up Call [facility] Subprogram: Focused Care Management (3-9 months) Follow Up Call Type: Routine follow up call / Status Check Acute issue requiring follow-up call: Other: Weight gain Objective: 07/25/2023 2:45 PM 07/03/2023 1:50 PM [...] LEFT VENTRICULAR EJECTION FRACTION Remote Patient Monitoring: [facility] Scale: 257.2 Oxygen Needs: NO CHANGE from baseline supplemental oxygen needs DME Needs: NO DME needs identified Medications: Current DTP: Double dose of Torsemide for 3 days Started yesterday Subjective: Condition Status: No change in symptoms Current Concerns: Spoke with patient today. She said she got 2 readings from her scale. She has some wheezing, abdomen distention, and heavier to breath. No edema in lower extremities, no chest congestion Afebrile. O2 sat on room air is 97% HR 80. Uses oxygen @ 2L at HS. She has order for duonebs 4 x day, but has only been doing them as needed. Instructed to used 4 times today due to wheezing and to use her inhaler. Continue with DTP which started yesterday Keep na/fluids within limit. Advised to call [facility] with new/worsening non emergent health issues Disposition: Follow up call scheduled for tomorrow with [facility] [employer] Future Visits Scheduled: Future Appointments-next 60 days Date/Time Provider Specialty Dept Phone 08/01/2023 12:00 PM [facility] [employer] [facility] [phone] 08/07/2023 2:40 PM (Arrive by 2:25 PM) Elijah Nash, Pain Medicine [phone] 08/22/2023 3:00 PM (Arrive by 2:45 PM) Aime Casas MD Neurological Surgery [phone] 08/24/2023 4:00 PM Ladi Joseph RN [facility] [phone] 08/27/2023 3:00 PM (Arrive by 2:45 PM) Brennan Wasserman MD Allergy & Immunology [phone] 11/23/2023 2:40 PM (Arrive by 2:25 PM) Sotero Pizano MD Family Medicine [phone] 11/27/2023 2:00 PM (Arrive by 1:45 PM) Vernell Kimball PA-C Neurology [phone] 12/10/2023 3:30 PM Nurse Annual Wellness [facility] [phone] 12/19/2023 11:00 AM (Arrive by 10:45 AM) Amaya Singleton PA-C Cardiology [phone] 04/08/2024 3:15 PM (Arrive by 3:00 PM) Mario Kong MD Hematology Oncology [phone] 06/30/2024 1:30 PM (Arrive by 1:15 PM) [facility] Radiology [phone] Routed to care team Sheri Taylor RN documented in this encounter Plan of Treatment Upcoming Encounters Date Type Specialty Care Team Description 08/02/2023 Scheduled Telephone [facility], [facility] [place] [address] 08/07/2023 Office Visit Pain Medicine Elijah Nash DO [address] [place] [address] 08/22/2023 Office Visit Neurological Surgery Aime Casas MD [address] [place] [address] 08/24/2023 Home Visit [facility] Ladi Joseph RN [address] [place] [address] 08/27/2023 Office Visit Allergy & Immunology Brennan Wasserman MD [address] [place] [address] 11/23/2023 Office Visit Family Medicine Sotero Pizano MD [address] [place] [address] 11/27/2023 Office Visit Neurology Vernell Kimball PA-C [address] [facility] [address] [place] [address] 12/10/2023 Nurse Only [facility], [facility] [address] [facility] [address] 12/19/2023 Office Visit Cardiology Amaya Singleton PA-C [address] [place] [address] 04/08/2024 Office Visit Hematology Oncology [facility] [address] [facility] [address] 06/30/2024 Imaging Radiology Health Maintenance Due Date Last Done Comments COVID-19 Vaccine (3 - Pfizer series) 04/14/2021 02/17/2021, 01/27/2021 Pneumococcal Vaccine: 65+ Years (2 - PCV) 02/24/2023 02/24/2022 Albumin/Creatinine Ratio 06/28/2023 06/28/2022 Influenza Vaccine (FLU shot) (#1) 2023 09/08/2021, 07/29/2020 Depression Screening 12/07/2023 12/07/2022 GFR 12/22/2023 06/21/2023, 0612/2022, 03/21/2023, Additional history exists CKD PHOS USE SMARTSET 16553 03/16/202403/05, 03/29/2022, 05/13/2021, Additional history exists CKD HGB USE SMARTSET 94884 04/25/202404/25, 04/25/2023, 04/06/2023, Additional history exists Mammogram [...] encounter Medical Devices Implanted Type Area Management Nurse Rn Device Identifier Shelf Expiration Date Model / Serial / Lot Terumo Microvention Hydrosoft 3d Implanted:Qty: 1 on 08/16/2018 by Aime Casas MD at [place] [facility] [place]/A: Head [employer] : INTERVENTIONA 07/05/2023 [id number] / [id number] / [id number] Hd Offset Hum 46x16 - [id number] Implanted:Qty: 1 on 09/28/2020 by Teresa Rehman DO at OR [facility] Left: Shoulder DJO SURGICAL 06/17/2026 520-46-31 6 / / [id number] documented as of this encounter Advance Directives [...] and were consensually agreed upon. Care Teams Electronic Musical Instrument Repairer Relationship Specialty Start Date End Date March, Sotero Sutton MD [address] [place] [facility] [place] [address] PCP - General Family Medicine 12/07/22 documented as of this encounter
--- OUTSIDE RECORDS SUMMARY | 2023-11-15 04:29 | External Medical Summary | Summary of Care ---
Author Name Unknown Organization [facility] Address [address] [facility] [place] [address] Phone [phone] Care Team Providers Care Tax Intern Name Role Phone Sotero Pizano MD Primary Care Provider [phone] Reason for Visit * Reason Onset Date Comments [facility]: Maintenance 07/30/2023 Encounter Details Date Type Department Care Team Description 07/30/2023 Telephone [facility], [facility] [address] [facility], Nurse [facility] 132 [place] [address] [facility]: Maintenance Allergies Active Allergy [...] 03/15/2022 Active Vitamin D (Ergocalciferol) 1.25 MG (40943 UT) Oral Capsule TAKE ONE CAPSULE BY [...] mRNA, LNP-s, No Pre serve, 2-Dose Series ([email or web address]) 02/17/2021,01/27/2021 Pneumococcal Polysaccharide PPV23 (Pneumovax) Seasonal Influenza, [...] encounter Miscellaneous Notes * Addendum Note - Eligio Urias DO - 07/30/2023 11:11 AM EDTAddended by: ELIGIO RUIAS on: 07/30/2023 11:11 AM Modules accepted: Orders * Telephone Encounter - Eligio Urias DO - 07/30/2023 11:11 AM EDT [facility] Remote Medical Command [facility] Phone Encounter Reviewed phone message regarding the patient's weight and [facility] findings. Please see below for the response to the [facility] trigger: Problem List Items Addressed This Visit None Addt'l Comments: Placed DTP order to double dose of torsemide for 3 days which is additional 20mg in AM and 10 mg inPM Routed to the [facility] Pool and any relevant parties Thank you in advance, I appreciate it. DO [facility] 07/30/2023 * Telephone Encounter - Regina Wheat LPN - 07/30/2023 10:43 AM EDT Images from the original note were not included. [facility] Remote Patient Monitoring Spoke to patient for weight gain per [facility] Patient states yesterday she drank almost double [...] days. Would like the verify with care team/[facility] before starting DTP Patient is also on for f/u calls for the next 2 days Able to contact patient: Trigger type: Abnormal reading(s): AMC (Advanced Monitored Caregiving): Scale: Baseline weight: 250 +/- 3 lbs [...] Moderate risk: Route to RNCM (Registered Nurse Stripper Preliminary) and Advance Practitioner Route to RMC (Remote Medical Coordinator) documented in this encounter Plan of Treatment Upcoming Encounters Date Type Specialty Care Team Description 07/30/2023 Office Visit Orthopedics Amy Perkins MD [address] [place] [address] 07/31/2023 Scheduled Telephone [facility] [employer], [facility] [address] [place] [address] 08/01/2023 Scheduled Telephone [facility] [employer], [facility] [address] [place] [address] 08/07/2023 Office Visit Pain Medicine Elijah Nash DO [address] [place] [address] 08/22/2023 Office Visit Neurological Surgery Aime Casas MD [address] [facility] [place] [address] 08/24/2023 Home Visit [facility] Ladi Joseph RN [address] [place] [address] 08/27/2023 Office Visit Allergy & Immunology Brennan Wasserman MD [address] [place] [address] 11/23/2023 Office Visit Family Medicine Sotero Pizano MD [address] [place] [address] 11/27/2023 Office Visit Neurology Vernell Kimball PA-C [address] [facility] [place] [id number] 12/10/2023 Nurse Only [facility], Nurse Annual Wellness [address] [place] [address] 12/19/2023 Office Visit Cardiology Amaya Singleton PA-C [address] [facility] [address] 04/08/2024 Office Visit Hematology Oncology Mario Kong MD [address] [place] [address] 06/30/2024 Imaging Radiology Health Maintenance Due Date Last Done Comments COVID-19 Vaccine (3 - Pfizer series) 04/14/2021 02/17/2021, 01/27/2021 Pneumococcal Vaccine: 65+ Years (2 - PCV) 02/24/2023 02/24/2022 Albumin/Creatinine Ratio 06/28/2023 06/28/2022 Influenza Vaccine (FLU shot) (#1) 2023 09/08/2021, 07/29/2020 Depression Screening 12/07/2023 12/07/2022 GFR 12/22/2023 06/21/2023, 06/0 12/2022, 03/21/2023, Additional history exists CKD PHOS USE SMARTSET 95822 03/16/202403/05, 03/29/2022, 05/13/2021, Additional history exists CKD HGB USE SMARTSET 53029 04/25/202404/25, 04/25/2023, 04/06/2023, Additional history exists Mammogram [...] encounter Medical Devices Implanted Type Area Hot Stick Man Device Identifier Shelf Expiration Date Model / Serial / Lot Terumo Microvention Hydrosoft 3d Implanted:Qty: 1 on 08/16/2018 by Aime Casas MD at OR [facility] N/A: Head [employer] : INTER[employer] 07/05/2023 [id number] / [id number] / [id number] Hd Offset Hum 46x16 - [id number] Implanted:Qty: 1 on 09/28/2020 by Teresa Rehman DO at OR [facility] Left: Shoulder DJO SURGICAL 06/17/2026 520-46-31 6 / / [id number] documented as of this encounter Advance Directives [...] and were consensually agreed upon. Care Teams Tax Intern Relationship Specialty Start Date End Date March, Sotero Sutton MD [address] [place] [address] PCP - General Family Medicine 12/07/22 documented as of this encounter
--- OUTSIDE RECORDS SUMMARY | 2023-11-15 04:29 | External Medical Summary | Summary of Care ---
Author Name Unknown Organization [facility] Address [address] [facility] [place] [address] Phone [phone] Care Team Providers Care Research Editor Name Role Phone Sotero Pizano MD Primary Care Provider [phone] Reason for Visit * Reason Onset Date Comments [facility]: Maintenance 07/25/2023 Encounter Details Date Type Department Care Team Description 07/25/2023 Telephone [facility] [address] [place] [address] Ladi Joseph RN [address] [place] [address] [facility]: Maintenance Allergies Active Allergy [...] as of this encounter (statuses as of 07/29/2023) Medications Medication Sig Dispensed Refills Start Date [...] 03/15/2022 Active Vitamin D (Ergocalciferol) 1.25 MG (74345 UT) Oral Capsule TAKE ONE CAPSULE BY [...] as of this encounter (statuses as of 07/29/2023) Active Problems Problem Noted Date Iron deficiency [...] as of this encounter (statuses as of 07/29/2023) Resolved Problems Problem Noted Date Resolved Date [...] as of this encounter (statuses as of 07/29/2023) Immunizations Name Administration Dates Next Due COVID-19 mRNA, LNP-s, No Pre serve, 2-Dose Series ([employer]) 02/17/2021,01/27/2021 Pneumococcal Polysaccharide PPV23 (Pneumovax) Seasonal Influenza, [...] Telephone Encounter - Sotero Pizano MD - 07/29/2023 9:14 PM EDT Meds sent to mail order. Sotero Pizano MD * Telephone Encounter - Ladi Joseph RN - 07/25/2023 3:[address] Pizano Pt is requesting that she get all her meds from [facility]. Could you please send all of her scripts there so she can start getting them delivered? Thank you!! documented in this encounter Plan of Treatment Upcoming Encounters Date Type Specialty Care Team Description 07/30/2023 Office Visit Orthopedics Amy Perkins MD [address] [place] [address] 08/07/2023 Office Visit Pain Medicine Elijah Nash DO [address] [place] [address] 08/22/2023 Office Visit Neurological Surgery Aime Casas MD [address] [place] [address] 08/24/2023 Home Visit [facility] Ladi Joseph RN [address] [place] [address] 08/27/2023 Office Visit Allergy & Immunology Brennan Wasserman MD [address] [place] [address] 11/23/2023 Office Visit Family Medicine Sotero Pizano MD [address] [place] [address] 11/27/2023 Office Visit Neurology Vernell Kimball PA-C [address] [facility] [place] [address] 12/10/2023 Nurse Only [facility] Nurse Annual Wellness [address] [place] [address] 12/19/2023 Office Visit Cardiology Amaya Singleton PA-C [address] [place] [address] 04/08/2024 Office Visit Hematology Oncology Mario Kong MD [address] [place] [address] 06/30/2024 Imaging Radiology Health Maintenance Due Date Last Done Comments COVID-19 Vaccine (3 - Pfizer series) 04/14/2021 02/17/2021, 01/27/2021 Pneumococcal Vaccine: 65+ Years (2 - PCV) 02/24/2023 02/24/2022 Albumin/Creatinine Ratio 06/28/2023 06/28/2022 Influenza Vaccine (FLU shot) (#1) 2023 09/08/2021, 07/29/2020 Depression Screening 12/07/2023 12/07/2022 GFR 12/22/2023 06/21/2023, 0612/2022, 03/21/2023, Additional history exists CKD PHOS USE SMARTSET 37309 03/16/202403/05, 03/29/2022, 05/13/2021, Additional history exists CKD HGB USE SMARTSET 63472 04/25/202404/25, 04/25/2023, 04/06/2023, Additional history exists Mammogram [...] this encounter Medical Devices Implanted Type Area Hospital Unit Clerk Device Identifier Shelf Expiration Date Model / Serial / Lot SiCortex Microvention Hydrosoft 3d Implanted:Qty: 1 on 08/16/2018 by Aime Casas MD at OR [facility] N/A: Head [employer] : INTERVENTIONA 07/05/2023 [id number] / [id number] / [id number] Hd Offset Hum 46x16 - [id number] Implanted:Qty: 1 on 09/28/2020 by Teresa Rehman, at OR [facility] Left: Shoulder DJO SURGICAL 06/17/2026 [id number] documented as of this encounter Visit Diagnoses [...] and were consensually agreed upon. Care Teams Research Editor Relationship Specialty Start Date End Date March, Sotero Sutton MD [address] [place], [place] [id number] PCP - General Family Medicine 12/07/22 documented as of this encounter
--- OUTSIDE RECORDS SUMMARY | 2023-11-15 04:29 | External Medical Summary | Summary of Care ---
Author Name Unknown Organization [facility] Address [address] [facility] [facility] [address] Phone [phone] Care Team Providers Care Business Development Coordinator Name Role Phone Sotero Pizano MD Primary Care Provider [phone] Reason for Visit * Reason Comments [facility]: Maintenance Encounter Details Date Type Department Care Team Description 07/25/2023 [facility] Visit [facility] [address] [place] [address] Ladi Joseph RN [address] [place] [address] Allergies Active Allergy Reactions Severity Noted Date [...] as of this encounter (statuses as of 07/26/2023) Medications Medication Sig Dispensed Refills Start Date End Date Status Aspirin 81 MG Oral Tablet Delayed Release (RA Aspirin EC)Indications:Cere bral aneurysm, nonruptured Take 1 Tab by mouth daily. 90 Tab 1 07/26/2020 Active CPAP 16 % every night at bedtime. 0 Active Ipratropium-Albuter ol 0.5-2.5 (3) MG/3ML Inhalation Solution (Duoneb)Indications :Chronic bronchitis with wheezing (HCC) Inhale via nebulizer 3 mL in the morning AND 3 mL at noon AND 3 mL in the evening AND 3 mL before bedtime. 100 mL 3 02/24/2022 Active Compressor NebulizerIndication s:Chronic bronchitis with wheezing (HCC) Inhale via nebulizer . Use as directed. 1 Each 1 02/24/2022 Active Meclizine HCl 12.5 MG Oral Tablet (Antivert)Indicatio ns:Vertigo TAKE ONE TABLET BY MOUTH THREE TIMES DAILY NEEDED FOR DIZZINESS 30 Tablet 2 03/15/2022 Active Vitamin D (Ergocalciferol) 1.25 MG (14336 UT) Oral Capsule TAKE ONE CAPSULE BY MOUTH MONTHLY 12 Capsule 0 05/03/2022 Active Fluticasone Propionate 50 MCG/ACT Nasal Suspension (Flonase) Administer 2 Sprays into nostril in the morning. 0 Active Docusate Sodium 100 MG Oral Capsule (Colace)Indications :Constipation, unspecified constipation type Take 1 Capsule by mouth in the morning and 1 Capsule before bedtime. 60 Capsule 11 11/14/2022 Active Additional Information Patient taking differently:100 mg OralDAILY(1900), Reported on 07/03/2023 Atorvastatin Calcium 10 MG Oral Tablet (Lipitor) TAKE 1 TABLET BY MOUTH ONCE DAILY 90 Tablet 2 01/30/2023 Active Proventil HFA 108 (90 Base) MCG/ACT [...] a day 450 g 0 02/26/2023 Active traZODone HCl 150 MG Oral Tablet (Desyrel) TAKE 1 TABLET BY MOUTH AT BEDTIME 90 Tablet 3 03/05/2023 Active Metoprolol Succinate ER 25 MG Oral Tablet Extended Release 24 Hour (Toprol XL) Take 1 Tablet by mouth in the morning. 34 Tablet 6 03/29/2023 Active Polyethylene Glycol 3350 17 GM/SCOOP Oral [...] NAUSEA 30 Tablet 0 05/14/2023 Active Vitamin B-12 1000 MCG Oral Tablet (Cyanocobalamin)Ind ications:B12 deficiency Take 1 Tablet by mouth in the morning. 30 Tablet 11 05/23/2023 Active rOPINIRole HCl 2 MG Oral Tablet (Requip) TAKE ONE TABLET BY MOUTH IN THE MORNING, ONE AT NOON AND ONE BEFORE BEDTIME. TAKE WITH FOOD. 90 Tablet 2 05/27/2023 Active Losartan Potassium 25 MG Oral Tablet (Cozaar)Indications :Chronic kidney disease, stage 3b (HCC),HTN, goal below 140/90 Take 0.5 Tablets by mouth in the morning. 34 Tablet 11 06/02/2023 Active Magnesium Oxide -Mg Supplement 400 (240 Mg) MG Oral Tablet (Mag-Ox)Indications :HTN, goal below 140/90 TAKE 1 TABLET BY MOUTH EVERY MORNING 90 Tablet 0 06/19/2023 Active Vitamin D3 25 MCG (1000 UT) Oral Tablet Chewable Take 2,000 Units by mouth in the morning. 0 Active Senna 8.6 MG Oral Tablet Take 1 Tablet by mouth in the morning. 0 Active Pregabalin 25 MG Oral Capsule (Lyrica) Take 2 capsule in the am, and 2 capsules in pm. 120 Capsule 3 07/17/2023 Active Torsemide 10 MG Oral Tablet (Demadex)Indication s:Chronic heart failure with preserved ejection fraction (HCC) 20 mg in the morning 10 mg in the evening 90 Tablet 3 07/21/2023 Active oxygen IN GAS Use 2 L/min(Oxygen) as directed at bedtime. 0 Active documented as of this encounter (statuses as of 07/26/2023) Active Problems Problem Noted Date Iron deficiency [...] as of this encounter (statuses as of 07/26/2023) Resolved Problems Problem Noted Date Resolved Date [...] as of this encounter (statuses as of 07/26/2023) Immunizations Name Administration Dates Next Due COVID-19 [...] Sign Reading Time Taken Comments Blood Pressure 116/68 07/25/2023 2:45 PM EDT Pulse 75 07/25/2023 2:45 PM EDT Temperature 36.2 C (97.1 F) 07/25/2023 2:45 PM ED T Respiratory Rate 18 07/25/2023 2:45 PM EDT Oxygen Saturation 97% 07/25/2023 2:45 PM EDT Inhaled Oxygen Concentration - - Weight 114.9 kg (253 lb 6.4 oz) 07/25/2023 2:45 PM EDT Height - - Body Mass Index 41.53 06/10/2023 3:41 PM EDT documented in this [...] Progress Notes * Ladi Joseph RN - 07/25/2023 2:18 PM EDT Images from the original note were not included. [facility] Visit Date: 07/25/2023 Time: 2:18 PM Name: Kristen Garcia : 1955 Current Concerns: Pt seen for return RNCM visit Pt reports she has been having increased pain right lower back/hip area It has been getting worse the past 2 weeks Has f/u on 07/30 with ortho and 08/07 with interventional pain medicine She does not usually take tylenol for pain, says it affects her RLS Does not want to take prednisone as it makes her gain weight/causes fluid retention She does have the medical marijuana card but has to get it renewed - waiting on them to email her form and then will be able to pay for the renewal - she states this usually helps with her pain Discussed trying topical Aspercreme with Lidocaine Spoke with [facility] and they need order for nocturnal oximetry signed by MONORAIL HOOKER - message sent to Analy Lopez MONORAIL HOOKER and intake to fax Physical Exam: BP 116/68 | Pulse 75 | Temp 36.2 C (97.1 F) | Resp 18 | Wt 114.9 kg (253 lb 6.4 oz) | SpO2 97% | BMI 41.53 kg/m | BSA 2.3 m Pain 8 Physical Exam Constitutional: General: She is not in acute distress. Appearance: She is obese. Cardiovascular: Rate and Rhythm: Normal rate and regular rhythm. Pulses: Normal pulses. Heart sounds: Normal heart sounds. Pulmonary: Effort: Pulmonary effort is normal. Breath sounds: Normal breath sounds. Abdominal: Palpations: Abdomen is soft. Musculoskeletal: Right lower leg: Edema (mod nonpitting) present. Left lower leg: Edema (mod nonpitting) present. Skin: General: Skin is warm and dry. Neurological: Mental Status: She is alert and oriented to person, place, and time. Problems/Symptoms: Review of Systems Constitutional: Negative. HENT: Negative. Eyes: Negative. Respiratory: Positive for shortness of breath (JONES - at baseline). Cardiovascular: Positive for leg swelling. Gastrointestinal: Negative. Genitourinary: Negative. Musculoskeletal: Positive for arthralgias, back pain and gait problem. Psychiatric/Behavioral: Negative. Medication Reconciliation: (See medication list) Does patient take medications as ordered: Yes Patient Well Being: PHQ2/9: No questionnaires available. No change in living situation Denies falls [facility]-10 Completed this Visit: No. Routine visit and No falls since last visit Advanced Care Planning: No documentation, ACP on file. Patient's Goals of Care: Feel better Walk better Lose wt Reinforcement/Education: Reviewed HF symptom monitoring: -Weigh self [...] possible Weigh self daily in am via [facility] Low Na diet Add senna 8.6mg at least daily for constipation DTP on file per cardiology Home Interventions Provided: Home Intervention: Other; Eval Consulted PCP/Specialist Reinforced current Plan of Care, including self-management and medication regimen Patient's 'Red Flags': Wt gain of 3 lbs in 24 hr or 5 lbs in one week SOB with min exertion Increased anxiety Patient Needs to Remember: Call [facility] at with any new or worsening health [...] & schedule home visit with care steam box hand(s)as indicated. Provider is in agreement with Plan of Care: Yes Scheduled to follow up with patient in one month. Ladi Joseph RN 07/25/2023 2:18 PM documented in this encounter Plan of Treatment Upcoming Encounters Date Type Specialty Care Team Description 07/30/2023 Office Visit Orthopedics Amy Perkins MD [address] [place] [address] 08/07/2023 Office Visit Pain Medicine Elijah Nash DO [address] [place] [address] 08/22/2023 Office Visit Neurological Surgery [facility] Casas [facility] [address] [facility] [place] [address] 08/24/2023 [facility] Ladi Joseph RN [address] [place] [address] 08/27/2023 Office Visit Allergy & Immunology Brennan Wasserman MD [address] [place] [address] 10/01/2023 Office Visit Cardiology Amaya Singleton PAJeimyC [address] [place] [address] 11/23/2023 Office Visit Family Medicine Sotero Pizano MD [address] [place] [address] 11/27/2023 Office Visit Neurology Vernell Kimball PA-C [address] [facility] [place] [address] 12/10/2023 Nurse Only [facility] Nurse [facility] [address] [place] [address] 04/08/2024 Office Visit Hematology Oncology Mario Kong MD [address] [place] [address] 06/30/2024 Imaging Radiology Health Maintenance Due Date Last Done Comments COVID-19 Vaccine (3 - Pfizer series) 04/14/2021 02/17/2021, 01/27/2021 Pneumococcal Vaccine: 65+ Years (2 - PCV) 02/24/2023 02/24/2022 Albumin/Creatinine Ratio 06/28/2023 06/28/2022 Influenza Vaccine (FLU shot) (#1) 2023 09/08/2021, 07/29/2020 Depression Screening 12/07/2023 12/07/2022 GFR 12/22/2023 06/21/2023, 06/0 12/2022, 03/21/2023, Additional history exists CKD PHOS USE SMARTSET 80267 03/16/202403/05, 03/29/2022, 05/13/2021, Additional history exists CKD HGB USE SMARTSET 37374 04/25/202404/25, 04/25/2023, 04/06/2023, Additional history exists Mammogram [...] this encounter Medical Devices Implanted Type Area Corporate Learning Consultant Device Identifier Shelf Expiration Date Model / Serial / Lot Terumo Microvention Hydrosoft 3d Implanted:Qty: 1 on 08/16/2018 by Aime Casas MD at [place] [facility] [place] N/A: Head [employer] : INTER[employer]IONA 07/05/2023 [id number] / [id number] / [id number] Hd Offset Hum 46x16 - [id number] Implanted:Qty: 1 on 09/28/2020 by Teresa Rehman DO at OR [facility] Left: Shoulder [employer] 06/17/2026 520-46-31 6 / / [id number] documented as of this encounter Advance Directives [...] and were consensually agreed upon. Care Teams Business Development Coordinator Relationship Specialty Start Date End Date March, Sotero Sutton MD [address] [place] [address] PCP - General Family Medicine 12/07/22 documented as of this encounter
--- OUTSIDE RECORDS SUMMARY | 2023-11-15 04:29 | External Medical Summary | Summary of Care ---
Author Name Unknown Organization [facility] Address [address] [facility] [place] [address] Phone [phone] Care Team Providers Care Section Laborer Name Role Phone Sotero Pizano MD Primary Care Provider [phone] Reason for Visit * Reason Onset Date Comments [facility]: Maintenance 07/30/2023 Encounter Details Date Type Department Care Team Description 07/30/2023 Telephone [facility] [address] [facility] [address] [facility], Nurse [facility] [address] [place] [address] [facility]: Maintenance Allergies Active Allergy [...] 03/15/2022 Active Vitamin D (Ergocalciferol) 1.25 MG (89336 UT) Oral Capsule TAKE ONE CAPSULE BY [...] mRNA, LNP-s, No Pre serve, 2-Dose Series ([employer]) 02/17/2021,01/27/2021 Pneumococcal Polysaccharide PPV23 (Pneumovax) Seasonal Influenza, [...] EDT [facility] Remote Medical [facility] Phone Encounter Reviewed phone message regarding the patient's weight and [facility] findings. Please see below for the response to the [facility] trigger: Problem List Items Addressed This Visit None Addt'l Comments: Placed DTP order to double dose of torsemide for 3 days which is additional 20mg in AM and 10 mg inPM Routed to the [facility] Pool and any relevant parties Thank you in advance, I appreciate it. DO [facility] 07/30/2023 * Telephone Encounter - Regina Wheat LPN - 07/30/2023 10:43 AM EDT Images from the original note were not included. [facility] Remote Patient Monitoring Spoke to patient for weight gain per [facility] Patient states yesterday she drank almost double [...] days. Would like the verify with care team/[facility] before starting DTP Patient is also on [...] Moderate risk: Route to RNCM (Registered Nurse Window Shade Estimator) and Advance Practitioner Route to RMC (Remote Medical Coordinator) documented in this encounter Plan of Treatment Upcoming Encounters Date Type Specialty Care Team Description 07/30/2023 Office Visit Orthopedics Amy Perkins MD [address] [place] [address] 07/31/2023 Scheduled Telephone [facility], [facility] [address] [place] [address] 08/01/2023 Scheduled Telephone [facility], [facility] [address] [place] [address] 08/07/2023 Office Visit Pain Medicine Elijah Nash DO [address] [place] [address] 08/22/2023 Office Visit Neurological Surgery Aime Casas MD [address] [facility] [place] [address] 08/24/2023 Home Visit [facility] Ladi Joseph RN [address] [place] [address] 08/27/2023 Office Visit Allergy & Immunology Brennan Wasserman MD [address] [place] [address] 11/23/2023 Office Visit Family Medicine Sotero Pizano MD [address] [place] [address] 11/27/2023 Office Visit Neurology Vernell Kimball PA-C [address] [facility] [place] [id number] 12/10/[address] [facility], Nurse [facility] [address] [place] [address] 12/19/2023 Office Visit Cardiology Amaya Singleton PA-C [address] [facility] [address] 04/08/2024 Office Visit Hematology Oncology Mario Kong MD [address] [place] [address] 06/30/2024 Imaging Radiology Health Maintenance Due Date Last Done Comments COVID-19 Vaccine (3 - Pfizer series) 04/14/2021 02/17/2021, 01/27/2021 Pneumococcal Vaccine: 65+ Years (2 - PCV) 02/24/2023 02/24/2022 Albumin/Creatinine Ratio 06/28/2023 06/28/2022 Influenza Vaccine (FLU shot) (#1) 2023 09/08/2021, 07/29/2020 Depression Screening 12/07/2023 12/07/2022 GFR 12/22/2023 06/21/2023, 06/0 12/2022, 03/21/2023, Additional history exists CKD PHOS USE SMARTSET 96571 03/16/202403/05, 03/29/2022, 05/13/2021, Additional history exists CKD HGB USE SMARTSET 34130 04/25/202404/25, 04/25/2023, 04/06/2023, Additional history exists Mammogram [...] this encounter Medical Devices Implanted Type Area Fire Prevention Inspector Device Identifier Shelf Expiration Date Model / Serial / Lot Terumo Microvention Hydrosoft 3d Implanted:Qty: 1 on 08/16/2018 by Aime Caass MD at [place] [facility] [place] N/A: Head [employer] : INTERVENTIONA 07/05/2023 1070-7708 / [id number] / [id number] Hd Offset Hum 46x16 - [id number] Implanted:Qty: 1 on 09/28/2020 by Teresa Rehman DO at OR [facility] Left: Shoulder [employer] 06/17/2026 520-46-31 6 / / [id number] documented as of this encounter Advance Directives [...] and were consensually agreed upon. Care Teams Section Laborer Relationship Specialty Start Date End Date March, Sotero Sutton MD [address] [place] [address] PCP - General Family Medicine 12/07/22 documented as of this encounter
--- OUTSIDE RECORDS SUMMARY | 2023-11-15 04:29 | External Medical Summary | Summary of Care ---
Author Name Unknown Organization [facility] Address [address] [facility] [place] [address] Phone [phone] Care Team Providers Care Slip Cover Seamstress Name Role Phone Sotero Pizano MD Primary Care Provider [phone] Reason for Visit * Reason Onset Date Comments [facility]: Maintenance 07/30/2023 Encounter Details Date Type Department Care Team Description 07/30/2023 Telephone [facility] [address] [facility] [place] [address] [facility], Nurse [facility] 132 [facility] [place] [address] [facility]: Maintenance Allergies Active Allergy [...] 03/15/2022 Active Vitamin D (Ergocalciferol) 1.25 MG (88528 UT) Oral Capsule TAKE ONE CAPSULE BY [...] mRNA, LNP-s, No Pre serve, 2-Dose Series ([employer]) 02/17/2021,01/27/2021 Pneumococcal Polysaccharide PPV23 (Pneumovax) Seasonal Influenza, [...] EDT [facility] Medical [facility] Phone Encounter Reviewed phone message regarding the patient's weight and [facility] findings. Please see below for the response to the [facility] trigger: Problem List Items Addressed This Visit None Addt'l Comments: Placed DTP order to double dose of torsemide for 3 days which is additional 20mg in AM and 10 mg inPM Routed to the [facility] Pool and any relevant parties Thank you in advance, I appreciate it. DO [facility] 07/30/2023 * Telephone Encounter - Regina Wheat LPN - 07/30/2023 10:43 AM EDT Images from the original note were not included. [facility] Remote Patient Monitoring Spoke to patient for weight gain per [facility] Patient states yesterday she drank almost double [...] days. Would like the verify with care team/[facility] before starting DTP Patient is also on [...] Moderate risk: Route to RNCM (Registered Nurse Data Steward) and Advance Practitioner Route to RMC (Remote Medical Coordinator) documented in this encounter Plan of Treatment Upcoming Encounters Date Type Specialty Care Team Description 07/30/2023 Office Visit Orthopedics Amy Perkins MD [address] [place] [address] 07/31/2023 Scheduled Telephone [facility] [employer] Programmer, [facility] [address] [place] [address] 08/01/2023 Scheduled Telephone [facility] [employer] Programmer, [facility] [address] [place] [address] 08/07/2023 Office Visit Pain Medicine Elijah Nash DO [address] [place] [address] 08/22/2023 Office Visit Neurological Surgery Aime Casas MD [address] [facility] [place] [address] 08/24/2023 Home Visit [facility] Ladi Joseph RN [address] [place] [address] 08/27/2023 Office Visit Allergy & Immunology Brennan Wasserman MD [address] [place] [address] 11/23/2023 Office Visit Family Medicine Sotero Pizano MD [address] [place] [address] 11/27/2023 Office Visit Neurology Vernell Kimball PA-C [address] [facility], [place] [phone] 12/10/2023 Nurse Only [facility], Nurse Annual [facility] [address] [place] [address] 12/19/2023 Office Visit Cardiology Amaya Singleton PA-C [address] [facility] [place] [address] 04/08/2024 Office Visit Hematology Oncology Mario Kong MD [address] [place] [address] 06/30/2024 Imaging Radiology Health Maintenance Due Date Last Done Comments COVID-19 Vaccine (3 - Pfizer series) 04/14/2021 02/17/2021, 01/27/2021 Pneumococcal Vaccine: 65+ Years (2 - PCV) 02/24/2023 02/24/2022 Albumin/Creatinine Ratio 06/28/2023 06/28/2022 Influenza Vaccine (FLU shot) (#1) 2023 09/08/2021, 07/29/2020 Depression Screening 12/07/2023 12/07/2022 GFR 12/22/2023 06/21/2023, 06/0 12/2022, 03/21/2023, Additional history exists CKD PHOS USE SMARTSET 90868 03/16/202403/05, 03/29/2022, 05/13/2021, Additional history exists CKD HGB USE SMARTSET 93497 04/25/202404/25, 04/25/2023, 04/06/2023, Additional history exists Mammogram [...] this encounter Medical Devices Implanted Type Area Mortgage Loan Reviewer Device Identifier Shelf Expiration Date Model / Serial / Lot Terumo Microvention Hydrosoft 3d Implanted:Qty: 1 on 08/16/2018 by Aime Casas MD at OR [facility] N/A: Head [employer] : INTER[employer] 07/05/2023 [id number] / [id number] / [id number] Hd Offset Hum 46x16 - [id number] Implanted:Qty: 1 on 09/28/2020 by Teresa Rehman DO at OR [facility] Left: Shoulder [employer] SURGICAL 06/17/2026 520-46-31 6 / / [id number] documented as of this encounter Advance Directives [...] and were consensually agreed upon. Care Teams Slip Cover Seamstress Relationship Specialty Start Date End Date March, Sotero Sutton MD [address] [place] [address] PCP - General Family Medicine 12/07/22 documented as of this encounter
--- OUTSIDE RECORDS SUMMARY | 2023-11-15 04:29 | External Medical Summary | Summary of Care ---
Author Name Unknown Organization [facility] Address [address] [facility] [place] [address] Phone [phone] Care Team Providers Care Neuro Psych Sales Specialist Name Role Phone Sotero Pizano MD Primary Care Provider [phone] Reason for Visit * Reason Onset Date Comments [facility]: Maintenance 07/24/2023 Encounter Details Date Type Department Care Team Description 07/24/2023 Scheduled Telephone [facility], [facility] [address] [facility] [place] [address] Coordinator, [facility] [address] [place] [address] Allergies Active Allergy Reactions Severity Noted Date [...] as of this encounter (statuses as of 07/24/2023) Medications Medication Sig Dispensed Refills Start Date [...] 03/15/2022 Active Vitamin D (Ergocalciferol) 1.25 MG (99972 UT) Oral Capsule TAKE ONE CAPSULE BY [...] as of this encounter (statuses as of 07/24/2023) Active Problems Problem Noted Date Iron deficiency [...] as of this encounter (statuses as of 07/24/2023) Resolved Problems Problem Noted Date Resolved Date [...] as of this encounter (statuses as of 07/24/2023) Immunizations Name Administration Dates Next Due COVID-19 [...] encounter Miscellaneous Notes * Telephone Encounter - Reanna Molina RN - 07/24/2023 11:13 AM EDT [facility] Telephonic Nurse Follow-Up Call [facility] Subprogram: Focused Care Management (3-9 months) Follow Up Call Type: 48 hour follow up Acute issue requiring follow-up call: Other: f/u weight, sob, abd distention;additional 20mg Torsemide daily x 3 more days (started Friday 07/20) Dr Lindsey did place orders for a BNP/CMP if warranted post-DTP Objective: 07/03/2023 1:50 PM 06/19/2023 4:40 PM 06/19/2023 4:04 PM 06/19/2023 4:00 PM 06/10/2023 3:41 PM VITALS ACROSS ENCOUNTERS BP 126/62 102/62 110/60 122/70 Arterial Blood Pressure1 (ABP) 110/60 Arterial Blood Pressure2 (ART) 102/62 Pulse 70 75 79 Weight 114.7 kg 117.3 kg 116 kg BMI 41.9 BMI 41.43 kg/m2 42.4 kg/m2 41.92 kg/m2 Lab Results Component Value Date PROTEIN - [facility] 6.9 05/25/2023 WBC AUTO - [facility] 7.01 04/25/2023 Lab Results Component Value Date WBC AUTO - [facility] 7.01 04/25/2023 HGB - [facility] 11.9 (L) 04/25/2023 PLATELET AUTO - [facility] 263 04/25/2023 Lab Results Component Value Date SODIUM - [facility] 141 06/21/2023 POTASSIUM - [facility] 3.8 06/21/2023 CO2 - [facility] 32 06/21/2023 CREATININE - [facility] 1.4 (H) 06/21/2023 ESTIMATED GLOMERULAR FILTRATION RATE - [facility] 42 (L) 06/21/2023 No results found for: PRO BNP, LEFT VENTRICULAR EJECTION FRACTION Remote Patient Monitoring: [facility] Scale: 252.8 ;s on 07/23; no weight on 07/24 Oxygen Needs: NO supplemental oxygen needs identified DME Needs: NO DME needs identified Medications: No medication or dose adjustments made during acute episode - DTP completed Subjective: Condition Status: Symptoms resolved and back to baseline Current Concerns: Call to patient. As per telemarketing manager call yesterday, patient completed 2 days of DTP. She is on her way driving to [place] today to take her sister to [facility]. They left at 2am States she did not weigh today as she left at 2am. She will take her daily dose of diuretic when she returns home early evening today. C/o SOB but states "I am doing ok". Instructed to contact [facility] with worsening, non emergent symptoms Disposition: RNCM visit scheduled for 07/25/2023 Future Visits Scheduled: Future Appointments-next 60 days Date/Time Provider Specialty Dept Phone 07/24/2023 1:15 PM [facility] Multimedia Services Coordinator [facility] [phone] 07/25/2023 4:00 PM [facility] [phone] 07/30/2023 2:00 PM (Arrive by 1:45 PM) Amy Perkins MD Orthopedics [phone] 08/07/2023 2:40 PM (Arrive by 2:25 PM) Elijah Nash DO Pain Medicine [phone] 08/22/2023 3:00 PM (Arrive by 2:45 PM) Aime Casas MD Neurological Surgery [phone] 08/27/2023 3:00 PM (Arrive by 2:45 PM) Brennan Wasserman MD Allergy & Immunology [phone] 10/01/2023 2:00 PM (Arrive by 1:45 PM) Amaya Singleton PA-C Cardiology [phone] 11/23/2023 2:40 PM (Arrive by 2:25 PM) Sotero Pizano MD Family Medicine [phone] 11/27/2023 2:00 PM (Arrive by 1:45 PM) Vernell Kimball PA-C Neurology [phone] 12/10/2023 3:30 PM Nurse Annual Wellness [facility] [phone] 04/08/2024 3:15 PM (Arrive by 3:00 PM) Mario Kong MD Hematology Oncology [phone] 06/30/2024 1:30 PM (Arrive by 1:15 PM) [facility] Radiology [phone] Reanna Molina RN documented in this encounter Plan of Treatment Upcoming Encounters Date Type Specialty Care Team Description 07/25/2023 Home Visit [facility] Ladi Joseph RN [address] [place] [address] 07/30/2023 Office Visit Orthopedics Amy Perkins MD [address] [place] [address] 08/07/2023 Office Visit Pain Medicine Elijah Nash DO [address] [place] [address] 08/22/2023 Office Visit Neurological Surgery Aime Casas MD [address] [place] [facility] [place] [address] 08/27/2023 Office Visit Allergy & Immunology Brennan Wasserman MD [address] [place] [address] 10/01/2023 Office Visit Cardiology Amaya Singleton PA-C [address] [place] [address] 11/23/2023 Office Visit Family Medicine Sotero Pizano MD [address] [place] [address] 11/27/2023 Office Visit Neurology Vernell Kimball PA-C [address] [place] [address] 12/10/2023 Nurse Only [facility] Nurse Carly [facility] [address] [facility] [address] 04/08/2024 Office Visit Hematology Oncology Mario Kong MD [address] [facility] [address] 06/30/2024 Imaging Radiology Health Maintenance Due Date Last Done Comments COVID-19 Vaccine (3 - Pfizer series) 04/14/2021 02/17/2021, 01/27/2021 Pneumococcal Vaccine: 65+ Years (2 - PCV) 02/24/2023 02/24/2022 Albumin/Creatinine Ratio 06/28/2023 06/28/2022 Influenza Vaccine (FLU shot) (#1) 2023 09/08/2021, 07/29/2020 Depression Screening 12/07/2023 12/07/2022 GFR 12/22/2023 06/21/2023, 0612/2022, 03/21/2023, Additional history exists CKD PHOS USE SMARTSET 31508 03/16/202403/05, 03/29/2022, 05/13/2021, Additional history exists CKD HGB USE SMARTSET 06660 04/25/202404/25, 04/25/2023, 04/06/2023, Additional history exists Mammogram [...] this encounter Medical Devices Implanted Type Area Garage Hand Device Identifier Shelf Expiration Date Model / Serial / Lot Terumo Microvention Hydrosoft 3d Implanted:Qty: 1 on 08/16/2018 by Aime Casas MD at OR [facility] N/A: Head [employer] : INTERVENTIONA 07/05/2023 [id number] / [id number] / [id number] Hd Offset Hum 46x16 - [id number] Implanted:Qty: 1 on 09/28/2020 by Teresa Rehman DO at OR [facility] Left: Shoulder DJO SURGICAL 06/17/2026 520-46-31 6 / / [id number] documented as of this encounter Advance Directives [...] and were consensually agreed upon. Care Teams Neuro Psych Sales Specialist Relationship Specialty Start Date End Date March, Sotero Sutton MD [address] [place] [address] PCP - General Family Medicine 12/07/22 documented as of this encounter
--- OUTSIDE RECORDS SUMMARY | 2023-11-15 04:29 | External Medical Summary | Summary of Care ---
Author Name Unknown Organization [facility] Address [address] [facility] [place] [address] Phone [phone] Care Team Providers Care Stockfeed Miller Name Role Phone Sotero Pizano MD Primary Care Provider Reason for Visit * Reason Onset Date Comments [facility]: Maintenance 07/23/2023 Encounter Details Date Type Department Care Team Description 07/23/2023 Scheduled Telephone [facility], [facility] [address] [facility] [place] [address] Coordinator, [facility] [address] [place] [address] Allergies Active Allergy Reactions Severity Noted Date [...] as of this encounter (statuses as of 07/23/2023) Medications Medication Sig Dispensed Refills Start Date [...] 03/15/2022 Active Vitamin D (Ergocalciferol) 1.25 MG (19723 UT) Oral Capsule TAKE ONE CAPSULE BY [...] as of this encounter (statuses as of 07/23/2023) Active Problems Problem Noted Date Iron deficiency [...] as of this encounter (statuses as of 07/23/2023) Resolved Problems Problem Noted Date Resolved Date [...] as of this encounter (statuses as of 07/23/2023) Immunizations Name Administration Dates Next Due COVID-19 [...] Telephone Encounter - Reanna Molina RN - 07/23/2023 2:56 PM EDT Call to patient and spoke to same. Instructed on orders as per provider. Patient verbalized understanding of same. Patient loved the Primanti sandwich reference. Was laughing about same. Vanessa Molina RN [facility] Predatory Game Hunter [facility] * Telephone Encounter - Leonides Garcia MD - 07/23/2023 2:13 PM EDT Resume usual diuretic dosing Can take full diuretic dose when she gets home to avoid diuresis during car ride Low sodium diet (no Primanti sandwiches in [place]) Leonides Garcia MD, [facility] [place], [facility], FAAFP Remote Medical Command ([facility]) [facility] Available on On-Q-ity * Telephone Encounter - Reanna Molina RN - 07/23/2023 1:32 PM EDT Images from the original note were not included. [facility] Telephonic Nurse Follow-Up Call [facility] Subprogram: Focused Care Management (3-9 months) Follow Up Call Type: Routine follow up call / Status Check Acute issue requiring follow-up call: Other: f/u [...] LEFT VENTRICULAR EJECTION FRACTION Remote Patient Monitoring: [facility] Scale: 252.8 lbs today Oxygen Needs: NO supplemental oxygen needs identified DME Needs: NO DME needs identified Medications: Current DTP: Double dose of Torsemide for 3 days Subjective: Condition Status: Symptoms resolved and back to baseline Current Concerns: Patient was to start DTP on 07/20/2023. She did not start DTP until 07/21/2023 Call to patient and spoke to same. Started DTP Sat, Sun and today will be last day. Asking if she should take last dose of DTP today since her weight is down. Took 60 mg Torsemide Sat, Sun Tomorrow Leaving for [place] in early am to take sister to appt. Won't be back until evening. Can she take Torsemide 30 mg in evening when she gets home- regular dose is 20 mg in am ; 10 mg in pm ? 100% Oxygen sat on room air while seconds inspector with operational risk consultant HR 75 SOB at baseline - occasional BLE edema at baseline Denies chest pain, chest tightness, belly bloating ; lightheadedness, dizziness Disposition: Routed to [facility] and/or ising at Home Care Team for further advice and Follow up call scheduled for tomorrow with [employer] Regional Account Executive Future Visits Scheduled: Future Appointments-next 60 days Date/Time Provider Specialty Dept Phone 07/25/2023 4:00 PM Ladi Joseph RN [facility] [phone] 07/30/2023 2:00 PM (Arrive by 1:45 PM) Amy Perkins MD Orthopedics [phone] 08/07/2023 2:40 PM (Arrive by 2:25 PM) Elijah Nash DO Pain Medicine [phone] 08/22/2023 3:00 PM (Arrive by 2:45 PM) Aime Casas MD Neurological Surgery [phone] 08/27/2023 3:00 PM (Arrive by 2:45 PM) Brennan Wasserman MD Allergy & Immunology [phone] 10/01/2023 2:00 PM (Arrive by 1:45 PM) Amaya Singleton PA-C Cardiology [phone] 11/23/2023 2:40 PM (Arrive by 2:25 PM) Sotero Pizano MD Family Medicine [phone] 11/27/2023 2:00 PM (Arrive by 1:45 PM) Vernell Kimball PA-C Neurology [phone] 12/10/2023 3:30 PM Nurse Annual Wellness [facility] [phone] 04/08/2024 3:15 PM (Arrive by 3:00 PM) Mario Kong MD Hematology Oncology [phone] 06/30/2024 1:30 PM (Arrive by 1:15 PM) [email or web address] Radiology [phone] Reanna Molina RN documented in this encounter Plan of Treatment Upcoming Encounters Date Type Specialty Care Team Description 07/24/2023 Scheduled Telephone [facility] [employer], Linda Zimmerman [address] [place] [address] 07/25/2023 Home Visit [facility] Ladi Joseph RN [address] [place] [address] 07/30/2023 Office Visit Orthopedics Amy Perkins MD [address] [place] [address] 08/07/2023 Office Visit Pain Medicine Eliajh Nash DO [address] [place] [address] 08/22/2023 Office Visit Neurological Surgery Aime Casas MD [address] [place] [address] 08/27/2023 Office Visit Allergy & Immunology Brennan Wasserman MD [address] [place] [address] 10/01/2023 Office Visit Cardiology Amaya Singleton PA-C [address] [place] [address] 11/23/2023 Office Visit Family Medicine Sotero Pizano MD [address] [place] [address] 11/27/2023 Office Visit Neurology Vernell Kimball PA-C [address] [place] [phone] 12/10/2023 Nurse Only Ancillary Nurse Carly [facility] [address] [facility] [place] [address] 04/08/2024 Office Visit Hematology Oncology [facility] [address] [facility] [address] 06/30/2024 Imaging Radiology Health Maintenance Due Date Last Done Comments COVID-19 Vaccine (3 - Pfizer series) 04/14/2021 02/17/2021, 01/27/2021 Pneumococcal Vaccine: 65+ Years (2 - PCV) 02/24/2023 02/24/2022 Albumin/Creatinine Ratio 06/28/2023 06/28/2022 Influenza Vaccine (FLU shot) (#1) 2023 09/08/2021, 07/29/2020 Depression Screening 12/07/2023 12/07/2022 GFR 12/22/2023 06/21/2023, 06/0 12/2022, 03/21/2023, Additional history exists CKD PHOS USE SMARTSET 24064 03/16/202403/05, 03/29/2022, 05/13/2021, Additional history exists CKD HGB USE SMARTSET 84862 04/25/202404/25, 04/25/2023, 04/06/2023, Additional history exists Mammogram [...] this encounter Medical Devices Implanted Type Area Welding Specialist Device Identifier Shelf Expiration Date Model / Serial / Lot Terumo Microvention Hydrosoft 3d Implanted:Qty: 1 on 08/16/2018 by Aime Casas MD at OR [facility] N/A: Head [employer] : INTERVENTIONA 07/05/2023 [id number] / [id number] / [id number] Hd Offset Hum 46x16 - [id number] Implanted:Qty: 1 on 09/28/2020 by Teresa Rehman DO at OR [facility] Left: Shoulder DJO SURGICAL 06/17/2026 520-46-31 6 / / [id number] documented as of this encounter Advance Directives [...] and were consensually agreed upon. Care Teams Stockfeed Miller Relationship Specialty Start Date End Date March, Sotero Sutton MD [address] [place] [address] PCP - General Family Medicine 12/07/22 documented as of this encounter
--- OUTSIDE RECORDS SUMMARY | 2023-11-15 04:29 | External Medical Summary | Summary of Care ---
Author Name Unknown Organization [facility] Address [address] [place] [address] Phone [phone] Care Team Providers Care Floor Worker Transfer [place] Name Role Phone Sotero Pizano MD Primary Care Provider [phone] Reason for Visit * Reason Onset Date Comments Information 07/25/2023 Encounter Details Date Type Department Care Team Description 07/25/2023 Telephone [facility] [place], [place] [address] [place] [phone] Services, Scheduling [address] [place] [address] Information (///) Allergies Active Allergy Reactions Severity Noted Date [...] as of this encounter (statuses as of 07/25/2023) Medications Medication Sig Dispensed Refills Start Date [...] 03/15/2022 Active Vitamin D (Ergocalciferol) 1.25 MG (16784 UT) Oral Capsule TAKE ONE CAPSULE BY [...] as of this encounter (statuses as of 07/25/2023) Active Problems Problem Noted Date Iron deficiency [...] as of this encounter (statuses as of 07/25/2023) Resolved Problems Problem Noted Date Resolved Date [...] dx on PL FAM HX-DIABETES MELLITUS 04/07/2002 07/06/2 017 Family history of other cardiovascular diseases 04/07/2002 08/19/2007 Overview: ICD-10 update of inactive term INTERNAL HEMRRHOID WITH BLEEDING 02/04/2002 05/10/2017 BENIGN SYLVIE SKIN LEG 02/04/2002 05/10/2017 RECTAL BLEEDING 02/04/2002 05/10/2017 SKIN TAGS 02/04/2002 05/10/2017 documented as of this encounter (statuses as of 07/25/2023) Immunizations Name Administration Dates Next Due COVID-19 [...] encounter Miscellaneous Notes * Telephone Encounter - STEFANY Mina - 07/25/2023 3:56 PM EDT Request to send the new order for NOC OX back through as [facility] wanted a signed by lAan pittman, she addressed new order and I uploaded and sent to asking to supply to [facility] now for processing under same ref# [id number] documented in this encounter Plan of Treatment Upcoming Encounters Date Type Specialty Care Team Description 07/30/2023 Office Visit Orthopedics Amy Perkins MD [address] [place] [address] 08/07/2023 Office Visit Pain Medicine Elijah Nash DO [address] [place] [address] 08/22/2023 Office Visit Neurological Surgery Aime Casas MD [address] [place] [address] 08/24/2023 Home Visit [facility] Ladi Joseph RN [address] [place] [address] 08/27/2023 Office Visit Allergy & Immunology Brennan Wasserman MD [address] [facility] [address] 10/01/2023 Office Visit Cardiology Amaya Singleton PAJeimyC [address] [place] [address] 11/23/2023 Office Visit Family Medicine Sotero Pizano MD [address] [place] [address] 11/27/2023 Office Visit Neurology Vernell Kimball PA-C [address] [place] [address] 12/10/2023 Nurse Only [facility], Nurse Annual Wellness [address] [place] [address] 04/08/2024 Office Visit Hematology Oncology Mario Kong MD [address] [place] [address] 06/30/2024 Imaging Radiology Health Maintenance Due Date Last Done Comments COVID-19 Vaccine (3 - Pfizer series) 04/14/2021 02/17/2021, 01/27/2021 Pneumococcal Vaccine: 65+ Years (2 - PCV) 02/24/2023 02/24/2022 Albumin/Creatinine Ratio 06/28/2023 06/28/2022 Influenza Vaccine (FLU shot) (#1) 2023 09/08/2021, 07/29/2020 Depression Screening 12/07/2023 12/07/2022 GFR 12/22/2023 06/21/2023, 06/12/2022, 03/21/2023, Additional history exists CKD PHOS USE SMARTSET 57996 03/16/202403/05, 03/29/2022, 05/13/2021, Additional history exists CKD HGB USE SMARTSET 32467 04/25/202404/25, 04/25/2023, 04/06/2023, Additional history exists Mammogram [...] this encounter Medical Devices Implanted Type Area Production Machine Operator Device Identifier Shelf Expiration Date Model / Serial / Lot Terumo Microvention Hydrosoft 3d Implanted:Qty: 1 on 08/16/2018 by Aime Casas MD at [place] [facility] N/A: Head [employer] : INTERVENTIONA 07/05/2023 [id number] / [id number] / [id number] Hd Offset Hum 46x16 - [id number] Implanted:Qty: 1 on 09/28/2020 by Teresa Rehman DO at OR [facility] Left: Shoulder DJO SURGICAL 06/17/2026 520-46-31 6 / / [id number] documented as of this encounter Advance Directives [...] and were consensually agreed upon. Care Teams Floor Worker Transfer [place] Relationship Specialty Start Date End Date March, Sotero Sutton MD [address] [place] [address] [place] [address] PCP - General Family Medicine 12/07/22 documented as of this encounter
--- OUTSIDE RECORDS SUMMARY | 2023-11-15 04:29 | External Medical Summary | Summary of Care ---
Author Name Unknown Organization [facility] Address [address] [place] [address] Phone [phone] Care Team Providers Care Frickertron Checker Name Role Phone Sotero Pizano MD Primary Care Provider [phone] Reason for Referral * Evaluate & Treat - Unlimited Visits (Within 10 days (routine)) - Authorized Specialty Diagnoses / Procedures Referred By Bharat t Referred To Contact Physical Therapy / Physical Medicine And Rehab Diagnoses Chronic pain of both knees Bilateral primary osteoarthritis of knee Amy Perkins MD [address] [place] [address] Referral ID Status Reason Start Date Expiration Date Visits Requested Visits Authorized [id number] Authorized Specialty Services Required 07/30/2023 999 999 Question Answer Referral Priority Within 10 days (routine) Reason for Visit * Reason Comments NEW PATIENT Bilateral elbow * Evaluate & Treat - Unlimited Visits (Within 30 days (routine)) - Authorized Specialty Diagnoses / Procedures Referred By Contnaman t Referred To Contact Sports Medicine / Orthopedics Diagnoses Chronic pain of both knees Christo Burk MD [address] [place] [phone] Referral ID Status Reason Start Date Expiration Date Visits Requested Visits Authorized [id number] Authorized Specialty Services Required 06/28/2023 999 999 Encounter Details Date Type Department Care Team Description 07/30/2023 Office Visit Orthopaedics [facility] [address] [place] [id number] Amy Perkins MD [address] [place] [address] Chronic pain of both knees*; Bilateral primary osteoarthritis of knee Allergies Active Allergy Reactions Severity Noted Date [...] 03/15/2022 Active Vitamin D (Ergocalciferol) 1.25 MG (70238 UT) Oral Capsule TAKE ONE CAPSULE BY [...] every evening. 90 Capsule 3 07/29/2023 Active Ipratropium-Albuter ol 0.5-2.5 (3) MG/3ML Inhalation Solution (Duoneb)Indications :Chronic bronchitis with wheezing (HCC) Inhale 3 mL via nebulizer in the morning and 3 mL at noon and 3 mL in the evening and 3 mL before bedtime. 100 mL 3 07/29/2023 Active Losartan Potassium 25 MG [...] mg in the evening 90 Tablet 3 07/29/2023 [...] mRNA, LNP-s, No Pre serve, 2-Dose Series ([place]) 02/17/2021,01/27/2021 Pneumococcal Polysaccharide PPV23 (Pneumovax) Seasonal Influenza, [...] as of this encounter Progress Notes * Amy Perkins MD - 07/30/2023 2:16 PM EDT Kristen Garcia is a 68 year old female who presents for consultation to [facility] Sports Medicine for bilateral knee injury/pain. Consult requested by Christo Burk MD. Office note 06/28/2023 reviewed. Kristen Garcia is here unaccompanied History: Chief Complaint Patient presents with NEW PATIENT Bilateral elbow Nursing Notes: Deborah Artis, MED ASSIST 07/30/23 1350 Signed Pt presents today for bilateral elbow. States that her left elbow is worse than her right elbow. States she will lose feeling in her hands, at this moment she has no feeling. Left elbow xray taken 06/28/23 Patient initially stated to the nursing staff that she was here today for evaluation of her bilateral arm numbness and tingling, but she was actually referred to me for her knees. After clarified with patient, she be evaluated for her knees. She does have an upcoming appointment with pain management for her upper extremity numbness and tingling. In regards to her knee pain, the pain has been present for many months. Hurts mostly in front and on the inside of her knees. The pain does not radiate. There is no numbness or tingling. Her to the end of the day. Does not work, but does shopping and cleaning during the day. Denies ever having an injury of her knees. Has not tried anything for treatment yet. Reports that she cannot take ibuprofen due to comorbidities and she cannot take Tylenol because it exacerbates her restless leg syndrome. Denies any swelling of the knees. Does report occasional sensation of giving out. Denies any locking or catching. Review of systems: All others negative except those noted above in HPI. Review of patient's allergies indicates: Allergen Reactions [...] [Acetaminophen] Restless legs are worse when taking. Current Outpatient Medications Medication Sig Dispense Refill CPAP 16 % every night at bedtime. Compressor Nebulizer Inhale via nebulizer . Use as directed. 1 Each 1 Meclizine HCl 12.5 MG Oral Tablet (Antivert) TAKE ONE TABLET BY MOUTH THREE TIMES DAILY NEEDED FOR DIZZINESS 30 Tablet 2 Vitamin D (Ergocalciferol) 1.25 MG (59198 UT) Oral Capsule TAKE ONE CAPSULE BY MOUTH MONTHLY 12 Capsule 0 Fluticasone Propionate 50 MCG/ACT Nasal Suspension (Flonase) [...] MOUTH EVERY 8 HOURS IF NEEDED FOR [id number] Tablet 0 Vitamin D3 25 MCG (1000 [...] by mouth every evening. 90 Capsule 3 Ipratropium-Albuterol 0.5-2.5 (3) MG/3ML Inhalation Solution (Duoneb) Inhale 3 mL via nebulizer in the morning and 3 mL at noon and 3 mL in the evening and 3 mL before bedtime. 100 mL 3 Losartan Potassium 25 MG Oral Tablet [...] 3 Torsemide 10 MG Oral Tablet (Demadex) 20 mg in the morning 10 mg in the evening 90 Tablet 3 traZODone HCl 150 MG Oral Tablet (Desyrel) Take 1 Tablet by mouth at bedtime. 90 Tablet 3 Vitamin B-12 1000 MCG Oral Tablet (Cyanocobalamin) Take 1 Tablet by mouth in the morning. 90 Tablet3 DIURETIC TITRATION PLAN If no improvement on day 3, contact heart failure managing provider. 1 Each0 No current facility-administered medications for this visit. Past Medical History: Diagnosis Date Anxiety state, unspecified Brain aneurysm 2017 CHF (congestive heart failure) ([facility]) Depressive disorder, not elsewhere classified Generalized osteoarthrosis, unspecified site Hemorrhoids 06/02/202005/24 Internal & external noted colonoscopy Migraine, unspecified, without mention of intractable migraine without mention of status migrainosus Motion sickness Panic disorder without agoraphobia PONV (postoperative nausea and vomiting) Sleep apnea Unspecified essential hypertension Patient Active Problem List Diagnosis Code Hirsutism [...] hypoxemia G47.34 Lipodermatosclerosis of both lower extremities I83.11, I83.12 Chronic kidney disease, stage 3b (HCC) N18.32 Morbid (severe) obesity due to excess calories ([facility]) E66.01 Panic disorder (episodic paroxysmal anxiety) F41.0 Hyperlipidemia E78.5 BMI 40.0-44.9, adult ([facility]) Z68.41 Hypertensive heart disease with diastolic heart failure and stage 3b chronic kidney disease ([facility]) I13.0, I50.30, N18.32 Iron deficiency anemia due to chronic blood loss D50.0 Past Surgical History: Procedure Laterality Date BREAST LESION,OTHER,EXCISION 1993 Breast Biopsy needle benign CAROTID (INTERNAL) ARTERY CATHETHER PLACEMENT Bilateral 07/15/2018 CATHETER PLACEMENT INTERNAL CAROTID ARTERY performed by Aime Casas MD at OR [facility] CAROTID (INTERNAL) ARTERY CATHETHER PLACEMENT Bilateral 01/23/2019 CATHETER PLACEMENT INTERNAL CAROTID ARTERY performed by Aime Casas MD at OR [facility] CATHETER OCCLUSION/EMBOLIZATION,MACHINE STRAW HAT PRESSER N/A 08/16/2018 TRANSCATHETER PERMANENT ARTERIAL OCCLUSION CENTRAL NERVOUS SYSTEM performed by Aime Casas MD at [facility] DELIVERY 1982 Delivery Only COLONOSCOPY, DIAGNOSTIC (RECTUM) 09/05/2016 adenomatous polyps, diverticulosis, repeat 5 yrs/[facility] COLONOSCOPY, DIAGNOSTIC (RECTUM) 06/02/2020 fair prep, normal / [facility] COLONOSCOPY, DIAGNOSTIC (RECTUM) N/A 08/11/2022 [facility], colonoscopy prep-fair, hemorrnoids on perianal exam , otherwise normal / no specimens collected / EGD, FLEXIBLE, DIAGNOSTIC 06/02/2020 erosive gastropathy / [facility] EGD, FLEXIBLE, DIAGNOSTIC N/A 08/11/2022 [facility], EGD, normal scope / no specimens collected / EXPLORATION OF ABDOMEN 1974 Exploratory Of Abdomen HEMORRHOIDECTOMY, INTERNAL W/ BANDING Hemorrhoid(S) Ligation ismael INFORMATION 1976/. labor and delivery x 2 INFORMATION 08/16/2018 x2 STENTS Terumo MicroVention LVIS Jr Intraluminal Support Device model #[id number] INFORMATION 08/16/2018 x2 STENTS Terumo MicroVention LVIS Jr Intraluminal Support Device model# 970889-[id number] INFORMATION 08/16/2018 COIL Terumo MicroVention Hydrosoft 3D model# [id number] INFORMATION 08/16/2018 COIL Terumo MicroVention Hydrosoft 3D model# 2398-1919 INJECTION CERVICAL/THORACIC 08/02/2016 INJECTION SPINE LUMBAR CERVICAL OR THORACIC performed by Elijah Nash DO at OR [facility] INTRACRANIAL ARTERIES CATH PLACEMENT N/A 08/16/2018 CATHETER PLACEMENT EACH INTRACRANIAL BRANCH OF THE INTERNAL CAROTID OR VERTEBRAL ARTERIES performedby Aime Casas MD at OR [facility] INTRACRANIAL INTRAVASCULAR STENT,INCL ANGIO N/A 08/16/2018 TRANSCATHETER PLACEMENT OF INTRAVASCULAR STENTS, INTRACRANIAL performed by Aime Casas MD at OR [facility] LIGATION/BIOPSY OF TEMPORAL ARTERY Left 06/05/2018 [facility] RECONSTRUCT/REPLACE SHOULDER JOINT Left 09/28/2020 ARTHROPLASTY TOTAL SHOULDER performed by Teresa Rehman DO at OR [facility] REMOVAL OF APPENDIX 1973 Appendectomy REMOVAL OF OVARY/OVIDUCT(S) 1983 Ovary/Tube(S) Removal REMOVAL OF TONSILS, UNDER AGE 12 REMOVE TENDON SHEATH LESION, HAND Right 12/01/2014 EXCISION LESION TENDON SHEATH OR CAPSULE HAND OR FINGER performed by Javi Bishop MD at OR [facility] REVISE UPPER EYELID/EXCESS SKIN Bilateral [facility]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" SACROILIAC JOINT INJECT W/GUIDANCE 01/08/2017 INJECTION SACROILIAC JOINT performed by Elijah Nash DO at OR [facility] SACROILIAC JOINT INJECT W/GUIDANCE 02/28/2018 INJECTION SACROILIAC JOINT performed by Elijah Nash DO at OR [facility] TOTAL HYSTERECTOMY 1983 ANA (Total Abdominal Hysterectomy) Bleeding VERTEBRAL ARTERY CATHETER PLACEMENT Bilateral 07/15/2018 CATHETER PLACEMENT VERTEBRAL ARTERY, performed by Aime Casas MD at OR [facility] VERTEBRAL ARTERY CATHETER PLACEMENT Bilateral 01/23/2019 CATHETER PLACEMENT VERTEBRAL ARTERY, performed by Aime Casas MD at OR [facility] Social History Socioeconomic History Marital status: Spouse name: Leonides Number of children: 3 Years of education: Not on file Highest education level: Not on file Occupational History 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 Tobacco Use Smoking status: Former Packs/day: 0.25 Years: 25.00 Pack years: 6.25 Types: Cigarettes Quit date: 12/12/2002 Years since quittin.6 Smokeless tobacco: Never Tobacco comments: was smoking [...] Exercise Yes Comment: walks 2x [place] Bike Helmet Not Asked Seat Belt No Comment: advised Self-Exams Yes Social History Narrative Not on file Social Determinants of Health Financial Resource Strain: Not on file Food Insecurity: No Food Insecurity Worried About Running Out of Food in the Last Year: Never true Ran Out of Food in the Last Year: Never true Transportation Needs: Not on file Physical Activity: Not on file Stress: Not on file Social Connections: Not on file Intimate Partner Violence: Not on file Housing Stability: Not on file Family History Problem Relation Age of Onset Hypertension Mother Cancer Mother 81 lung cancer, smoker Diabetes Mother 59 IDDM Lung Disorder Mother Heart Disorder Father Lung Disorder Father emphysema, smoker Gastro-intestinal disorder Father diverticulitis Other (diverticulitis) Father Eye Problems Grandmother (Paternal) unsure diagnosis Heart Disorder Grandfather (Paternal) Eye Problems Sister DR collins/ Bleed Diabetes Aunt (Unspecified) maternal Cancer Aunt (Unspecified) dec, ? leukemia Glaucoma None Denies family hx Family History; none relevant to today's HPI Objective: Physical Exam There were no vitals filed for this visit. Estimated body mass index is 41.53 kg/m as calculated from the following: Height as of 06/10/23: 1.664 m (5' 5.5"). Weight as of 07/25/23: 114.9 kg (253 lb 6.4 oz). General: generally well-nourished and in no acute distress HEENT: normocephalic, atraumatic, sclera anicteric. Psych: mood and affect normal , cooperative Card: Peripheral pulses: normal in affected extremity (s) Resp: equal chest rise, non-tachypneic, non-labored breathing Skin: no rash, normal Neuro: Sensation: normal on affected extremity (s) MSK: Gait/station/stance: normal reciprocal gait, non antalgic without an assistive device on smooth flat indoor surface. Knee Exam, Bilateral Inspection: No obvious deformity, no redness, swelling, warmth, bruising, abrasion. Palpation: tenderness to palpation at medial joint line on the right and left ROM: Flexion/Neutral/Extension: L - 130/0/0, R - 130/0/0 Popliteal Angle (Hamstring Flexibility): 30 Bilateral Strength: R- Strength: Extension - 5/5 Flexion - 5/5 L - Strength: Extension - 5/5 Flexion - 5/5 quadriceps tone is Poor Special Tests: Negative valgus and varus stress test at 0 and 30. Negative Mark's and anterior drawer. Negativesag and posterior drawer. Negative Luiza's. Positive Daniel's and grind. Hip exam, bilateral: passive internal and external rotation reproduces no pain. Radiology (I have personally reviewed the following films): 07/30/2023: 3 view x-ray of bilateral knees No acute osseous abnormalities. Tricompartmental osteoarthritis most significant at the patellofemoral and medial joint lines. - per my interpretation. Awaiting formal radiology interpretation. Advised patient I will call or message them if any changes from the above. Assessment and Plan: ICD-10-CM 1. Chronic pain of both knees M25.561 M25.562 G89.29 2. Bilateral primary osteoarthritis of knee M17.0 Patient is a 68-year-old female who presented today for evaluation of chronic bilateral knee pain. Presentation is consistent with osteoarthritis, most significant at the medial and patellofemoral compartments. We discussed treatment options for osteoarthritis including pain medication, physical the rapy, weight loss, braces, injections, and surgery. She cannot take any oral medicines due to allergies and reactions. She was interested in starting with physical therapy and braces. Was fitted for a medial off rock loader is today. Will engage in physical therapy. She has a lot going on with her family right now as her sister is going through cancer treatment. She will message me back if she does not have any significant improvement after the knee braces and physical therapy at which point we can proceed with injections. She has had good success with injections for her shoulder in the past. The above assessment and plan were discussed at length. All questions were answered, and the patient expressed understanding. Amy Perkins MD Primary Care Sports Medicine [facility] Orthopa[facility]ics [address] [address] documented in this encounter Nursing Notes * Deborah Artis MED ASSIST - 07/30/2023 1:49 PM EDT Pt presents today for bilateral elbow. States that her left elbow is worse than her right elbow. States she will lose feeling in her hands, at this moment she has no feeling. Left elbow xray taken 06/28/23 documented in this encounter Plan of Treatment Upcoming Encounters Date Type Specialty Care Team Description 07/31/2023 Scheduled Telephone [facility] at Energy Economist, [facility] [address] [place] [address] 08/01/2023 Scheduled Telephone [facility] at Energy Economist, [facility] [address] [place] [address] 08/07/2023 Office Visit Pain Medicine Elijah Nash DO [address] [place] [address] 08/22/2023 Office Visit Neurological Surgery Aime Casas MD [address] [place] [address] 08/24/2023 Home Visit [facility] Ladi Joseph RN [address] [place] [address] 08/27/2023 Office Visit Allergy & Immunology Brennan Wasserman MD [address] [place] [address] 11/23/2023 Office Visit Family Medicine Sotero Pizano MD [address] [place] [address] 11/27/2023 Office Visit Neurology Vernell Kimball PA-C [address] [facility] [place] [address] 12/10/2023 Nurse Only Ancillary Nurse Carly [facility] [address] [facility] [place] [address] 12/19/2023 Office Visit Cardiology Amaya Singleton PA-C [address] [place] [address] 04/08/2024 Office Visit Hematology Oncology Mario [facility] [address] [facility] [address] 06/30/2024 Imaging Radiology Pending Results Name Type Priority Associated Diagnoses Date /Time XR KNEE 3 VIEWS Medical Imaging Routine Chronic pain of both knees 07/30/2023 2:24 PM EDT Scheduled Referrals Name Type Priority Associated Diagnoses Orde r Schedule PHYSICAL THERAPY REFERRAL OP Referral Within 10 days (routine) Chronic pain of both knees Bilateral primary osteoarthritis of knee Ordered: 07/30/2023 Health Maintenance Due Date Last Done Comments COVID-19 Vaccine (3 - Pfizer series) 04/14/2021 02/17/2021, 01/27/2021 Pneumococcal Vaccine: 65+ Years (2 - PCV) 02/24/2023 02/24/2022 Albumin/Creatinine Ratio 06/28/2023 06/28/2022 Influenza Vaccine (FLU shot) (#1) 2023 09/08/2021, 07/29/2020 Depression Screening 12/07/2023 12/07/2022 GFR 12/22/2023 06/21/2023, 0612/2022, 03/21/2023, Additional history exists CKD PHOS USE SMARTSET 72689 03/16/202403/05, 03/29/2022, 05/13/2021, Additional history exists CKD HGB USE SMARTSET 18726 04/25/202404/25, 04/25/2023, 04/06/2023, Additional history exists Mammogram [...] this encounter Medical Devices Implanted Type Area Site Foreman Device Identifier Shelf Expiration Date Model / Serial / Lot Terumo Microvention Hydrosoft 3d Implanted:Qty: 1 on 08/16/2018 by Aime Casas MD at OR [facility] N/A: Head [employer] : INTERVENTIONA 07/05/2023 [id number] / [id number] / [id number] Hd Offset Hum 46x16 - [id number] Implanted:Qty: 1 on 09/28/2020 by Teresa Rehman DO at OR [facility] Left: Shoulder DJO SURGICAL 06/17/2026 [id number] documented as of this encounter Visit Diagnoses Diagnosis Chronic pain of both knees- Primary Bilateral primary osteoarthritis of knee documented in this encounter Advance Directives Latest [...] and were consensually agreed upon. Care Teams Frickertron Checker Relationship Specialty Start Date End Date March, Sotero Sutton MD [address] [facility] [place] [address] PCP - General Family Medicine 12/07/22 documented as of this encounter
--- OUTSIDE RECORDS SUMMARY | 2023-11-15 04:30 | External Medical Summary | Summary of Care ---
Author Name Unknown Organization [facility] Address [address] [facility] [place] [address] Phone [phone] Care Team Providers Care Drapery And Upholstery Measurer Name Role Phone Sotero Pizano MD Primary Care Provider [phone] Reason for Visit * Reason Onset Date Comments [facility]: Maintenance 07/21/2023 Encounter Details Date Type Department Care Team Description 07/21/2023 Scheduled Telephone [facility], [facility] [address] [place] [address] [facility], Nurse [facility] [address] [place] [address] Allergies Active Allergy Reactions Severity Noted Date [...] as of this encounter (statuses as of 07/21/2023) Medications Medication Sig Dispensed Refills Start Date [...] 03/15/2022 Active Vitamin D (Ergocalciferol) 1.25 MG (72102 UT) Oral Capsule TAKE ONE CAPSULE BY [...] the evening 90 Tablet 3 07/21/2023 Active documented as of this encounter (statuses as of 07/21/2023) Active Problems Problem Noted Date Iron deficiency [...] as of this encounter (statuses as of 07/21/2023) Resolved Problems Problem Noted Date Resolved Date [...] as of this encounter (statuses as of 07/21/2023) Immunizations Name Administration Dates Next Due COVID-19 [...] encounter Miscellaneous Notes * Telephone Encounter - Quynh Marcelo RN - 07/21/2023 11:50 AM EDT Call placed to Kristen the am to check on her fluid status this am.. She answered the phone in greatspirits. Said her breathing is still short but her bloating is better. She is also down a pound this am. She takes torsemide 10mg 3 tabs daily and we doubled it for the DTP. Pt states she could only take 2 tabs this am, because she don't have anymore. Checked her scripts. Nothing pending. Reached ou t to our [facility] and she called a script in to [facility] for pt. Pt is aware andplans on getting it this afternoon. Instructed to call [facility] with any questions or concerns. documented in this encounter Plan of Treatment Upcoming Encounters Date Type Specialty Care Team Description 07/22/2023 Scheduled Telephone [facility], Nurse [place] [address] [place] [address] 07/23/2023 [facility]uled Telephone [facility] Service [facility] [address] [place] [address] 07/25/2023 Home Visit [facility] Ladi Joseph RN [address] [place] [address] 07/30/2023 Office Visit Orthopedics Amy Perkins MD [address] [place] [address] 08/07/2023 Office Visit Pain Medicine CouerwinElijah braden DO [address] [place] [address] 08/22/2023 Office Visit Neurological Surgery Aime Casas MD [address] [place] [address] 08/27/2023 Office Visit Allergy & Immunology Brennan Wasserman MD [address] [place] [address] 10/01/2023 Office Visit Cardiology Amaya Singleton PA-C [address] [place] [address] 11/23/2023 Office Visit Family Medicine Sotero Pizano MD [address] [place] [address] 11/27/2023 Office Visit Neurology Vernell Kimball PA-C [address] [place] [address] 12/10/2023 Nurse Only [facility], Nurse [facility] [address] [place] [address] 04/08/2024 Office Visit Hematology Oncology Mario Kong MD [address] [place] [address] 06/30/2024 Imaging Radiology Health Maintenance Due Date Last Done Comments COVID-19 Vaccine (3 - Pfizer series) 04/14/2021 02/17/2021, 01/27/2021 Pneumococcal Vaccine: 65+ Years (2 - PCV) 02/24/2023 02/24/2022 Albumin/Creatinine Ratio 06/28/2023 06/28/2022 Influenza Vaccine (FLU shot) (#1) 2023 09/08/2021, 07/29/2020 Depression Screening 12/07/2023 12/07/2022 GFR 12/22/2023 06/21/2023, 06/12/2022, 03/21/2023, Additional history exists CKD PHOS USE SMARTSET 94017 03/16/202403/05, 03/29/2022, 05/13/2021, Additional history exists CKD HGB USE SMARTSET 64071 04/25/202404/25, 04/25/2023, 04/06/2023, Additional history exists Mammogram [...] this encounter Medical Devices Implanted Type Area Gas Meter Repair Supervisor Device Identifier Shelf Expiration Date Model / Serial / Lot Bulu Box Microvention Hydrosoft 3d Implanted:Qty: 1 on 08/16/2018 by Aime Casas MD [place] [facility] N/A: Head [employer] : INTERVENTIONA 07/05/2023 [id number] / [id number] / [id number] Hd Offset Hum 46x16 - [id number] Implanted:Qty: 1 on 09/28/2020 by Teresa Rehman DO at OR [facility] Left: Shoulder DJO SURGICAL 06/17/2026 [id number] documented as of this encounter Advance Directives [...] and were consensually agreed upon. Care Teams Drapery And Upholstery Measurer Relationship Specialty Start Date End Date March, Sotero Sutton MD [address] [place] [address] PCP - General Family Medicine 12/07/22 documented as of this encounter
--- OUTSIDE RECORDS SUMMARY | 2023-11-15 04:30 | External Medical Summary | Summary of Care ---
Author Name Unknown Organization [facility] Address [address] [facility] [place] [address] Phone [phone] Care Team Providers Care Supervisor Dimension Warehouse Name Role Phone Sotero Pizano MD Primary Care Provider [phone] Reason for Visit * Reason Onset Date Comments [facility]: Maintenance 07/22/2023 Encounter Details Date Type Department Care Team Description 07/22/2023 Scheduled Telephone [facility], [facility] [address] [place] [address] [facility], Nurse [facility] [address] [place] [address] Allergies Active Allergy Reactions Severity Noted Date [...] as of this encounter (statuses as of 07/22/2023) Medications Medication Sig Dispensed Refills Start Date [...] 03/15/2022 Active Vitamin D (Ergocalciferol) 1.25 MG (47479 UT) Oral Capsule TAKE ONE CAPSULE BY [...] as of this encounter (statuses as of 07/22/2023) Active Problems Problem Noted Date Iron deficiency [...] as of this encounter (statuses as of 07/22/2023) Resolved Problems Problem Noted Date Resolved Date [...] as of this encounter (statuses as of 07/22/2023) Immunizations Name Administration Dates Next Due COVID-19 [...] Telephone Encounter - Quynh Marcelo RN - 07/22/2023 12:57 PM EDT Call placed to Kristen this afternoon. She answered the phone. She picked up the torsemide but she forgot to take it. She is having trouble breathing today. She feels it is more stress related. She iscaring for a sister with cervical cancer and has to take her to [facility] Joao, she lost a sister 3 months ago who of a rare form of anemia. She promises me she will double up on the torsemide today. I gave her time to tell me about her sisters and asked if there is anything I can do for her. She is scheduled for a phone call again tomorrow. Told if is she isn't feeling any better to tell the person she is talking to. We will do our best to make sure she feels well enough to get her sister to [facility]. Don't hesitate to call intake with any questions or concerns. Reviewed HF symptom monitoring: -Weigh self daily [...] if at night -increased fatigue or vertigo documented in this encounter Plan of Treatment Upcoming Encounters Date Type Specialty Care Team Description 07/23/2023 Scheduled Telephone [facility]inger at Facilities Operator, [address] [place] [address] 07/25/2023 [facility] Visit [facility] Ladi Joseph, RN [address] [place] [address] 07/30/2023 Office Visit Orthopedics Amy Perkins MD [address] [place] [address] 08/07/2023 Office Visit Pain Medicine Elijah Nash DO [address] [place] [address] 08/22/2023 Office Visit Neurological Surgery Aime Casas MD [address] [place], [place] [address] 08/27/2023 Office Visit Allergy & Immunology Brennan Wasserman MD [address] [place] [address] 10/01/2023 Office Visit Cardiology Amaya Singleton PA-C [address] [place] [address] 11/23/2023 Office Visit Family Medicine Sotero Pizano MD [address] [place] [facility] [place] [address] 11/27/2023 Office Visit Neurology Vernell Kimball PA-C [address] [facility] [place] [address] 12/10/2023 Nurse Only Nurse [facility] [address] [facility] [address] 04/08/2024 Office Visit Hematology Oncology Kong, Mario A, MD [address] [place] [address] 06/30/2024 Imaging Radiology Health Maintenance Due Date Last Done Comments COVID-19 Vaccine (3 - Pfizer series) 04/14/2021 02/17/2021, 01/27/2021 Pneumococcal Vaccine: 65+ Years (2 - PCV) 02/24/2023 02/24/2022 Albumin/Creatinine Ratio 06/28/2023 06/28/2022 Influenza Vaccine (FLU shot) (#1) 2023 09/08/2021, 07/29/2020 Depression Screening 12/07/2023 12/07/2022 GFR 12/22/2023 06/21/2023, 0612/2022, 03/21/2023, Additional history exists CKD PHOS USE SMARTSET 02604 03/16/202403/05, 03/29/2022, 05/13/2021, Additional history exists CKD HGB USE SMARTSET 97699 04/25/202404/25, 04/25/2023, 04/06/2023, Additional history exists Mammogram [...] this encounter Medical Devices Implanted Type Area Regional Flatbed Truck Driver Device Identifier Shelf Expiration Date Model / Serial / Lot Terumo Brickfishention CanFite BioPharmasoft 3d Implanted:Qty: 1 on 08/16/2018 by Aime Casas MD at OR [facility] N/A: Head [employer] : INTERVENTIONA 07/05/2023 [id number] / [id number] / [id number] Hd Offset Hum 46x16 - [id number] Implanted:Qty: 1 on 09/28/2020 by Teresa Rehman DO at OR [facility] Left: Shoulder DJO SURGICAL 06/17/2026 [id number] / [id number] documented as of this encounter Advance Directives [...] were consensually agreed upon. Care Teams Supervisor Dimension Warehouse Relationship Specialty Start Date End Date March, Sotero Sutton MD [address] [place], [place] [id number] PCP - General Family Medicine 12/07/22 documented as of this encounter
--- OUTSIDE RECORDS SUMMARY | 2023-11-15 04:30 | External Medical Summary | Summary of Care ---
Author Name Unknown Organization [facility] Address [address] [facility] [place] [place] [address] Phone [phone] Care Team Providers Care Fish Hatchery Supervisor Name Role Phone Sotero Pizano MD Primary Care Provider [phone] Reason for Visit * Reason Onset Date Comments [facility]: Maintenance 07/23/2023 Encounter Details Date Type Department Care Team Description 07/23/2023 Scheduled Telephone [facility], [facility] [address] [facility] [place] [address] Coordinator, [facility] [address] [place] [address] Allergies Active Allergy Reactions Severity Noted Date [...] 03/15/2022 Active Vitamin D (Ergocalciferol) 1.25 MG (85169 UT) Oral Capsule TAKE ONE CAPSULE BY [...] [facility] Telephonic Nurse Follow-Up Call [facility] Subprogram: Focused Care Management (3-9 [...] FRACTION Remote Patient Monitoring: AMC Scale: 252.8 lbs today Oxygen Needs: NO [...] mg Torsemide Sat, Sun Tomorrow Leaving for [place] in early am to [facility]. Won't be back until evening. Can she take Torsemide 30 mg in evening when she gets home- regular dose is 20 mg in am ; 10 mg in pm ? 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 HR 75 SOB at baseline - occasional BLE edema at baseline Denies chest pain, chest tightness, belly bloating ; lightheadedness, dizziness Disposition: Routed to [facility] and/or [facility] Care Team for further advice and Follow up call scheduled for tomorrow with [employer] Receiving Checker Future Visits Scheduled: Future Appointments-next 60 days Date/Time Provider Specialty Dept Phone 07/25/2023 4:00 PM Ladi Joseph RN [facility] [phone] 07/30/2023 2:00 PM (Arrive by 1:45 PM) Amy Perkins MD Orthopedics [phone] 08/07/2023 2:40 PM (Arrive by 2:25 PM) Elijah Nash DO Pain Medicine [phone] 08/22/2023 3:00 PM (Arrive by 2:45 PM) Aime Casas MD Neurological Surgery [phone] 08/27/2023 3:00 PM (Arrive by 2:45 PM) Brennan Wasserman MD Allergy & Immunology [phone] 10/01/2023 2:00 PM (Arrive by 1:45 PM) Amaya Singleton PA-C Cardiology [phone] 11/23/2023 2:40 PM (Arrive by 2:25 PM) Sotero Pizano MD Family Medicine [phone] 11/27/2023 2:00 PM (Arrive by 1:45 PM) Vernell Kimball PA-C Neurology [phone] 12/10/2023 3:30 PM Nurse Annual Wellness [facility] [phone] 04/08/2024 3:15 PM (Arrive by 3:00 PM) Mario Kong MD Hematology Oncology [phone] 06/30/2024 1:30 PM (Arrive by 1:15 PM) [facility] Radiology [phone] Reanna Molina RN documented in this encounter Plan of Treatment Upcoming Encounters Date Type Specialty Care Team Description 07/24/2023 Scheduled Telephone [facility] Receiving Dock Checker, Linda Zimmerman [address] [place] [address] 07/25/2023 Home Visit [facility] Ladi Joseph RN [address] [place] [address] 07/30/2023 Office Visit Orthopedics Amy Perkins MD [address] [place] [address] 08/07/2023 Office Visit Pain Medicine Elijah Nash DO [address] [place] [address] 08/22/2023 Office Visit Neurological Surgery Aime Casas MD [address] [place] [address] 08/27/2023 Office Visit Allergy & Immunology Brennan Wasserman MD [address] [place] [address] 10/01/2023 Office Visit Cardiology Amaya Singleton PA-C [address] [place] [address] 11/23/2023 Office Visit Family Medicine Sotero Pizano MD [address] [place] [address] 11/27/2023 Office Visit Neurology Vernell Kimball PA-C [address] [place] [address] 12/10/2023 Nurse Only [facility], Nurse Annual Wellness [address] [place] [address] 04/08/2024 Office Visit Hematology Oncology Mario Kong MD [address] [place] [address] 06/30/2024 Imaging Radiology Health Maintenance Due Date Last Done Comments COVID-19 Vaccine (3 - Pfizer series) 04/14/2021 02/17/2021, 01/27/2021 Pneumococcal Vaccine: 65+ Years (2 - PCV) 02/24/2023 02/24/2022 Albumin/Creatinine Ratio 06/28/2023 06/28/2022 Influenza Vaccine (FLU shot) (#1) 2023 09/08/2021, 07/29/2020 Depression Screening 12/07/2023 12/07/2022 GFR 12/22/2023 06/21/2023, 06/0 12/2022, 03/21/2023, Additional history exists CKD PHOS USE SMARTSET 79801 03/16/202403/05, 03/29/2022, 05/13/2021, Additional history exists CKD HGB USE SMARTSET 65628 04/25/202404/25, 04/25/2023, 04/06/2023, Additional history exists Mammogram [...] this encounter Medical Devices Implanted Type Area Community Youth Secretary Device Identifier Shelf Expiration Date Model / Serial / Lot Terumo Microvention Hydrosoft 3d Implanted:Qty: 1 on 08/16/2018 by Aime Casas MD at [place] [facility] N/A: Head [employer] : INTERVENTIONA 07/05/2023 [id number] / [id number] / [id number] Hd Offset Hum 46x16 - [id number] Implanted:Qty: 1 on 09/28/2020 by Teresa Rehman DO at OR [facility] Left: Shoulder DJO SURGICAL 06/17/2026 [id number] documented as of this encounter Advance Directives [...] and were consensually agreed upon. Care Teams Fish Hatchery Supervisor Relationship Specialty Start Date End Date March, Sotero Sutton MD [address] [place] [address] PCP - General Family Medicine 12/07/22 documented as of this encounter
--- OUTSIDE RECORDS SUMMARY | 2023-11-15 04:30 | External Medical Summary | Summary of Care ---
Author Name Unknown Organization [facility] Address [address] [place] [address] Phone [phone] Care Team Providers Care Airplane Charter Clerk Name Role Phone Sotero Pizano MD Primary Care Provider [phone] Reason for Visit * Reason Onset Date Comments Test Results 07/21/2023 Encounter Details Date Type Department Care Team Description 07/21/2023 Telephone Family Practice [address] [facility] [address] [place] [address] Esme High, DO [address] [place] [address] Test Results Allergies Active Allergy Reactions Severity Noted Date [...] % every night at bedtime. 0 Active Ipratropium-Albut aleksandr 0.5-2.5 (3) MG/3ML Inhalation Solution (Duoneb)Indicatio ns:Chronic bronchitis with wheezing (HCC) Inhale via nebulizer 3 mL in the morning AND 3 mL at noon AND 3 mL in the evening AND 3 mL before bedtime. 100 mL 3 02/24/2022 Active Compressor NebulizerIndicati ons:Chronic bronchitis with wheezing (HCC) Inhale via nebulizer . Use as directed. 1 Each 1 02/24/2022 Active Meclizine HCl 12.5 MG Oral Tablet (Antivert)Indicat ions:Vertigo TAKE ONE TABLET BY MOUTH THREE TIMES DAILY NEEDED FOR DIZZINESS 30 Tablet 2 03/15/2022 Active Vitamin D (Ergocalciferol) 1.25 MG (57612 UT) Oral Capsule TAKE ONE CAPSULE BY [...] 07/03/2023 Ondansetron HCl 4 MG Oral Tablet (Zofran)Wsetio ns:Nausea TAKE 1 TABLET BY MOUTH EVERY [...] Active Losartan Potassium 25 MG Oral Tablet (Cozaar)Westio ns:Chronic kidney disease, stage 3b (HCC),HTN, goal [...] 07/17/2023 Active Torsemide 10 MG Oral Tablet (Demadex)Westi ons:Chronic heart failure with preserved ejection fraction (HCC) 20 mg in the morning 10 mg in the evening 90 Tablet 3 07/21/2023 Active Torsemide 10 MG Oral Tablet (Demadex)Indicati ons:Chronic heart failure with preserved ejection fraction (HCC) 20 mg in the morning 10 mg in the evening 90 Tablet 3 06/19/2023 3 Discontinue d(Refill) documented as of this [...] interval not displayed. Medication Regimen: o Beta Odminique Therapy: Metoprolol Succinate (ER) o ERICA Inhibitor/ARB [...] mRNA, LNP-s, No Pre serve, 2-Dose Series ([employer] 02/17/2021,01/27/2021 Pneumococcal Polysaccharide PPV23 (Pneumovax) Seasonal Influenza, [...] encounter Miscellaneous Notes * Telephone Encounter - Esme High DO - 07/21/2023 12:00 PM EDT Received page. Pt does not have enough torsemide to get through the weekend. Refill sent to [facility]. Nurse triage to make pt aware. documented in this encounter Plan of Treatment Upcoming Encounters Date Type Specialty Care Team Description 07/22/2023 Scheduled Telephone [facility], Nurse [facility] [address] [place] [address] 07/23/2023 Scheduled Telephone [facility] Sales Representative Raw Fibers, [facility] [address] [place] [address] 07/25/2023 Home Visit [facility] Ladi Joseph RN [address] [place] [address] 07/30/2023 Office Visit Orthopedics Amy Perkins MD [address] [place] [address] 08/07/2023 Office Visit Pain Medicine CouElijah lamas DO [address] [place] [address] 08/22/2023 Office Visit Neurological Surgery Aime Casas MD [address] [place] [address] 08/27/2023 Office Visit Allergy & Immunology Brennan Wasserman MD [address] [place] [address] 10/01/2023 Office Visit Cardiology Amaya Singleton PA-C [address] [place] [address] 11/23/2023 Office Visit Family Medicine Sotero Pizano MD [address] [place] [address] 11/27/2023 Office Visit Neurology Vernell Kimball PA-C [address] [place] [address] 12/10/2023 [facility] [address] [place] [address] 04/08/2024 Office Visit Hematology Oncology Mario Kong MD [address] [place] [address] 06/30/2024 Imaging Radiology Health Maintenance Due Date Last Done Comments COVID-19 Vaccine (3 - Pfizer series) 04/14/2021 02/17/2021, 01/27/2021 Pneumococcal Vaccine: 65+ Years (2 - PCV) 02/24/2023 02/24/2022 Albumin/Creatinine Ratio 06/28/2023 06/28/2022 Influenza Vaccine (FLU shot) (#1) 2023 09/08/2021, 07/29/2020 Depression Screening 12/07/2023 12/07/2022 GFR 12/22/2023 06/21/2023, 06/0 12/2022, 03/21/2023, Additional history exists CKD PHOS USE SMARTSET 10029 03/16/202403/05, 03/29/2022, 05/13/2021, Additional history exists CKD HGB USE SMARTSET 94080 04/25/202404/25, 04/25/2023, 04/06/2023, Additional history exists Mammogram [...] this encounter Medical Devices Implanted Type Area Final Rail Cutter Device Identifier Shelf Expiration Date Model / Serial / Lot Terumo Microvention Hydrosoft 3d Implanted:Qty: 1 on 08/16/2018 by Aime Casas MD at OR [facility] N/A: Head [employer] : INTERVENTIONA 07/05/2023 [id number] / [id number] / [id number] Hd Offset Hum 46x16 - [id number] Implanted:Qty: 1 on 09/28/2020 by Teresa Rehman DO at OR [facility] Left: Shoulder DJO SURGICAL 06/17/2026 [id number] documented as of this encounter Visit Diagnoses Diagnosis Chronic heart failure with preserved ejection fraction (HCC) documented in this encounter Advance Directives [...] and were consensually agreed upon. Care Teams Airplane Charter Clerk Relationship Specialty Start Date End Date March, Sotero Sutton MD [address] [place] [address] PCP - General Family Medicine 12/07/22 documented as of this encounter
--- OUTSIDE RECORDS SUMMARY | 2023-11-15 04:30 | External Medical Summary | Summary of Care ---
Author Name Unknown Organization [facility] Address [address] [facility] [place] [place] [address] Phone [phone] Care Team Providers Care Continuity Manager Name Role Phone Sotero Pizano MD Primary Care Provider [phone] Reason for Visit * Reason Onset Date Comments [facility]: Maintenance 07/23/2023 Encounter Details Date Type Department Care Team Description 07/23/2023 Scheduled Telephone [facility], [facility] [address] [facility] [place] [address] Coordinator, [facility] [address] [place] [address] Allergies Active Allergy Reactions Severity Noted Date [...] 03/15/2022 Active Vitamin D (Ergocalciferol) 1.25 MG (77604 UT) Oral Capsule TAKE ONE CAPSULE BY [...] encounter Miscellaneous Notes * Telephone Encounter - Leonides Garcia MD - 07/23/2023 2:13 PM EDT Resume usual diuretic dosing Can take full diuretic dose when she gets home to avoid diuresis during car ride Low sodium diet (no Primanti sandwiches in [place]) Leonides Garcia MD, [facility], [facility], FAAFP Remote Medical Command ([facility]) [facility] Available on [employer] * Telephone Encounter - Reanna Molina RN - 07/23/2023 1:32 PM EDT Images from the original note were not included. [facility] Telephonic Nurse Follow-Up Call [facility] Subprogram: Focused Care Management (3-9 [...] patient and spoke to same. Started DTP Jerman, Jamila and today will be last day. Asking if she should take last dose of DTP today since her weight is down. Took 60 mg Torsemide Jamila Stoll Tomorrow Leaving for [place] in early am to take sister to appt. Won't be back until evening. Can she take Torsemide 30 mg in evening when she gets home- regular dose is 20 mg in am ; 10 mg in pm ? 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 HR 75 SOB at baseline - occasional BLE edema at baseline Denies chest pain, chest tightness, belly bloating ; lightheadedness, dizziness Disposition: Routed to [facility] and/or [facility] at Home Care Team for further advice and Follow up call scheduled for tomorrow with OVERLOCK ELASTIC ATTACHER Sewage Plant Supervisor Future Visits Scheduled: Future Appointments-next 60 days Date/Time Provider Specialty Dept Phone 07/25/2023 4:00 PM Ladi Joseph RN [facility] [phone] 07/30/2023 2:00 PM (Arrive by 1:45 PM) Amy Perkins MD Orthopedics [phone] 08/07/2023 2:40 PM (Arrive by 2:25 PM) Elijah Nash DO Pain Medicine [phone] 08/22/2023 3:00 PM (Arrive by 2:45 PM) Aime Casas MD Neurological Surgery [phone] 08/27/2023 3:00 PM (Arrive by 2:45 PM) Brennan Wasserman MD Allergy & Immunology [phone] 10/01/2023 2:00 PM (Arrive by 1:45 PM) Amaya Singleton PA-C Cardiology [phone] 11/23/2023 2:40 PM (Arrive by 2:25 PM) Sotero Pizano MD Family Medicine [phone] 11/27/2023 2:00 PM (Arrive by 1:45 PM) Vernell Kimball PA-C Neurology [phone] 12/10/2023 3:30 PM Nurse Annual Wellness [facility] [phone] 04/08/2024 3:15 PM (Arrive by 3:00 PM) Mario Kong MD Hematology Oncology [phone] 06/30/2024 1:30 PM (Arrive by 1:15 PM) [facility] Radiology [phone] Reanna Molina, JEREMY documented in this encounter Plan of Treatment Upcoming Encounters Date Type Specialty Care Team Description 07/24/2023 Scheduled Telephone [facility] Consumer Electronic Retail Specialist, [facility] [place] [address] 07/25/2023 Home Visit [facility] Ladi Joseph RN [address] [place] [address] 07/30/2023 Office Visit Orthopedics Amy Perkins MD [address] [place] [address] 08/07/2023 Office Visit Pain Medicine Elijah Nash DO [address] [place] [address] 08/22/2023 Office Visit Neurological Surgery Aime Casas MD [address] [place], [place] [address] 08/27/2023 Office Visit Allergy & Immunology Brennan Wasserman MD [address] [place] [address] 10/01/2023 Office Visit Cardiology Amaya Singleton PA-C [address] [place] [address] 11/23/2023 Office Visit Family Medicine Sotero Pizano MD [address] [place] [address] 11/27/2023 Office Visit Neurology Vernell Kimball PAJeimyC [address] [place] [address] 12/10/2023 [facility] Only [facility], Nurse Annual Wellness [address] [place] [address] 04/08/2024 Office Visit Hematology Oncology Mario Kong MD [address] [place] [address] 06/30/2024 Imaging Radiology Health Maintenance Due Date Last Done Comments COVID-19 Vaccine (3 - Pfizer series) 04/14/2021 02/17/2021, 01/27/2021 Pneumococcal Vaccine: 65+ Years (2 - PCV) 02/24/2023 02/24/2022 Albumin/Creatinine Ratio 06/28/2023 06/28/2022 Influenza Vaccine (FLU shot) (#1) 2023 09/08/2021, 07/29/2020 Depression Screening 12/07/2023 12/07/2022 GFR 12/22/2023 06/21/2023, 06/12/2022, 03/21/2023, Additional history exists CKD PHOS USE SMARTSET 86476 03/16/202403/05, 03/29/2022, 05/13/2021, Additional history exists CKD HGB USE SMARTSET 79223 04/25/202404/25, 04/25/2023, 04/06/2023, Additional history exists Mammogram [...] this encounter Medical Devices Implanted Type Area Dehairer Device Identifier Shelf Expiration Date Model / Serial / Lot [employer] Microvention Hydrosoft 3d Implanted:Qty: 1 on 08/16/2018 by Aime Casas MD [place] [facility] [place]/A: Head [email or web address] : INTERVENTIONA 07/05/2023 1843-1861 / [id number] / [id number] Hd Offset Hum 46x16 - [id number] Implanted:Qty: 1 on 09/28/2020 by Teresa Rehman, at OR [facility] Left: Shoulder DJO SURGICAL 06/17/2026 [id number] documented as of this encounter Advance Directives [...] and were consensually agreed upon. Care Teams Continuity Manager Relationship Specialty Start Date End Date March, Sotero Sutton MD [address] [place] [facility] [place] [address] PCP - General Family Medicine 12/07/22 documented as of this encounter
--- OUTSIDE RECORDS SUMMARY | 2023-11-15 04:31 | External Medical Summary | Summary of Care ---
Author Name Unknown Organization [facility] Address [address] [facility] [place] [address] Phone [phone] Care Team Providers Care City Comptroller Name Role Phone Sotero Pizano MD Primary Care Provider [phone] Reason for Visit * Reason Onset Date Comments [facility]: Maintenance 07/17/2023 Encounter Details Date Type Department Care Team Description 07/17/2023 Telephone [facility], [facility] [address] [facility] [place] [address] [facility], Nurse [facility] [address] [facility] [place] [address] [facility]: Maintenance Allergies Active Allergy [...] as of this encounter (statuses as of 07/17/2023) Medications Medication Sig Dispensed Refills Start Date [...] 03/15/2022 Active Vitamin D (Ergocalciferol) 1.25 MG (12132 UT) Oral Capsule TAKE ONE CAPSULE BY [...] EVERY MORNING 90 Tablet 0 06/19/2023 Active Torsemide 10 MG Oral Tablet (Demadex)Indication s:Chronic heart failure with preserved ejection fraction (HCC) 20 mg in the morning 10 mg in the evening 90 Tablet 3 06/19/2023 Active Vitamin D3 25 MCG (1000 UT) Oral Tablet Chewable Take 2,000 Units by mouth in the morning. 0 Active Senna 8.6 MG Oral Tablet Take 1 Tablet by mouth in the morning. 0 Active Pregabalin 25 MG Oral Capsule (Lyrica) Take 2 capsule in the am, and 2 capsules in pm. 120 Capsule 3 07/17/2023 Active documented as of this encounter (statuses as of 07/17/2023) Active Problems Problem Noted Date Iron deficiency [...] as of this encounter (statuses as of 07/17/2023) Resolved Problems Problem Noted Date Resolved Date [...] as of this encounter (statuses as of 07/17/2023) Immunizations Name Administration Dates Next Due COVID-19 [...] Telephone Encounter - Xu Donaldson PA-C - 07/17/2023 12:59 PM EDT [facility] Remote Medical Command Phone Encounter [facility] Phone Encounter Thank you @sender@ for your assistance in the care of this patient today. Reviewed phone message regarding the patient's weight and [facility] findings. Please see below for the response to the trigger: Symptomatic HF Recommendations: Per Cardiology-DTP- take an extra 20 mg torsemide today. F/U call next 2 days I would have Kristen Garcia continue to weigh on a daily basis and report any changes in symptoms toGAH, their PCP or their cardiology office. Thank you in advance, I appreciate it. Xu Donaldson PA-C Advanced Practitioner - [facility] .07/17/2023 This note was prepared with the help of fluency and if there is any mis-spelled words , sentences or something which doesn't represent the content of the subject that could be technical error and please refer to the author for clarification. * Telephone Encounter - Regina Wheat LPN - 07/17/2023 12:08 PM EDT Images from the original note were not included. [facility] ([facility]itored Caregiving) Weight Trigger [facility] Data: Spoke with patient [place] [facility] [place]. Patient states at first her [facility] scale wasn't working correctly but states she is feeling more short of breath than usual. Denies edema, cough, cp. States yesterday with heat/humidity did drink a little over her fluid restriction. Will forward to [facility]care team to see about DTP initiation. Baseline Weight: + /- 3 lbs of 250 lbs Trigger Weight: 257.6 lbs; weight increased 3.6 lbs in 1 days. Symptom review: Increased or worsening SOB from baseline: Yes Increased or worsening cough from baseline: No Orthopnea: No Increased or worsening edema in BLE/abdominal fullness: No Reviewed current diuretic use: Name of Medication: torsemide Dose: 10 mg Frequency: 20 mg in the morning and 10 mg in the evening Patient has a DTP (Diuretic Titration Protocol (DTP) ordered: Yes: DTP Name of Medications: torsemide DTP Dose: 20 mg DTP Frequency: PRN Recent use within the past 2 weeks: No Diet review: Patient has had any foods high in sodium: No Fluid review: Fluid restriction: No, describe additional fluid intake: patient states yesterday with the heat shedid drink over her 2 liter fluid restriction Plan/Treatment: Route to [facility] (Remote Medical Coordinator) Education Review: Reviewed HF symptom monitoring: -Weigh self daily [...] if at night -increased fatigue or vertigo Call back instructions discussed with patient. documented in this encounter Plan of Treatment Upcoming Encounters Date Type Specialty Care Team Description 07/25/2023 Home Visit [facility] Ladi Joseph RN [address] [place] [address] 07/30/2023 Office Visit Orthopedics Amy Perkins MD [address] [place] [address] 08/07/2023 Office Visit Pain Medicine Elijah Nash DO [address] [place] [address] 08/22/2023 Office Visit Neurological Surgery Aime Casas MD [address] [place], [place] [id number] 08/27/2023 Office Visit Allergy & Immunology Brennan Wasserman MD [address] [place] [address] 10/01/2023 Office Visit Cardiology Amaya Singleton PA-C [address] [place] [address] 11/23/2023 Office Visit Family Medicine Sotero Pizano MD [address] [place] [address] 11/27/2023 Office Visit Neurology Vernell Kimball PAJeimyC [address] [place] [address] 12/10/2023 Nurse Only [facility], Nurse [facility] [address] [place] [address] 04/08/2024 Office Visit Hematology Oncology Mario Kong MD [address] [place] [address] 06/30/2024 Imaging Radiology Health Maintenance Due Date Last Done Comments COVID-19 Vaccine (3 - Pfizer series) 04/14/2021 02/17/2021, 01/27/2021 Pneumococcal Vaccine: 65+ Years (2 - PCV) 02/24/2023 02/24/2022 Albumin/Creatinine Ratio 06/28/2023 06/28/2022 Influenza Vaccine (FLU shot) (#1) 2023 09/08/2021, 07/29/2020 Depression Screening 12/07/2023 12/07/2022 GFR 12/22/2023 06/21/2023, 06/0 12/2022, 03/21/2023, Additional history exists CKD PHOS USE SMARTSET 35949 03/16/202403/05, 03/29/2022, 05/13/2021, Additional history exists CKD HGB USE SMARTSET 73028 04/25/202404/25, 04/25/2023, 04/06/2023, Additional history exists Mammogram [...] this encounter Medical Devices Implanted Type Area Fireworks Assembly Supervisor Device Identifier Shelf Expiration Date Model / Serial / Lot Terumo Microvention Hydrosoft 3d Implanted:Qty: 1 on 08/16/2018 by Aime Casas MD at [place] [facility] [place]A: Head [employer] : INTERVENTIONA 07/05/2023 1904-0245 / [id number] / [id number] Hd Offset Hum 46x16 - [id number] Implanted:Qty: 1 on 09/28/2020 by Teresa Rehman DO at OR [facility] Left: Shoulder DJO SURGICAL 06/17/2026 [id number] documented as of this encounter Advance Directives [...] and were consensually agreed upon. Care Teams City Comptroller Relationship Specialty Start Date End Date March, Sotero Sutton MD [address] [place] [address] PCP - General Family Medicine 12/07/22 documented as of this encounter
--- OUTSIDE RECORDS SUMMARY | 2023-11-15 04:31 | External Medical Summary | Summary of Care ---
Author Name Unknown Organization [facility] Address [address] [facility] [place] [address] Phone [phone] Care Team Providers Care Interpreter Name Role Phone Sotero Pizano MD Primary Care Provider [phone] Reason for Visit * Reason Onset Date Comments [facility]: Maintenance 07/20/2023 Encounter Details Date Type Department Care Team Description 07/20/2023 Scheduled Telephone [facility], [facility] [address] [place] [address] Coordinator, [facility] [address] [place] [address] Hypertensive heart and kidney disease with chronic diastolic congestive heart failure and stage 3b chronic kidney disease (HCC)* Allergies Active Allergy Reactions Severity Noted Date [...] as of this encounter (statuses as of 07/20/2023) Medications Medication Sig Dispensed Refills Start Date [...] 03/15/2022 Active Vitamin D (Ergocalciferol) 1.25 MG (82756 UT) Oral Capsule TAKE ONE CAPSULE BY [...] as of this encounter (statuses as of 07/20/2023) Active Problems Problem Noted Date Iron deficiency [...] as of this encounter (statuses as of 07/20/2023) Resolved Problems Problem Noted Date Resolved Date [...] as of this encounter (statuses as of 07/20/2023) Immunizations Name Administration Dates Next Due COVID-19 [...] encounter Miscellaneous Notes * Telephone Encounter - Nellie June RN - 07/20/2023 11:17 AM EDT Received orders from Dr Lindsey. Outgoing call to pt and read the entire message to her. Pt was able to repeat back. [facility] for the next 3 days scheduled. Nellie HARO, RN [facility] Intake Triage Coordinator [phone] * Addendum Note - Cecelia Lindsey DO - 07/20/2023 10:07 AM EDTAddended by: CECELIA LINDSEY on: 07/20/2023 10:07 AM Modules accepted: Orders * Telephone Encounter - Cecelia Lindsey DO - 07/20/2023 10:05 AM EDT [facility] Remote Medical Command QuickNote [facility] Subprogram: Focused Care Management (3-9 months) [facility] Episode Start Date: Noted: 03/15/2023 Recommendations: Based on [facility] data and symptoms reported, I think we can continue an additional 20mg Torsemide dailyx [address] more [address] place orders for a BNP/CMP if warranted post-DTP Orders: Plan Comprehensive Metabolic Panel BNP, NT-PRO To Do: Please see below for follow up items to be completed and correspondence: SOTERO Peterson's Care Team ice guard inspector Pool please work on the following: contact the caller with advice and orders as above Cecelia Lindsey DO Remote Medical Command - [facility] 07/20/2023 Scheduled appointments in the next 60 days: Future Appointments-next 60 days Date/Time Provider Specialty Dept Phone 07/20/2023 1:30 PM [facility] [phone] 07/21/2023 10:00 AM Nurse [facility] [phone] 07/22/2023 9:30 AM Nurse [facility] [phone] 07/25/2023 4:00 PM Ladi Joseph RN [facility] [phone] 07/30/2023 2:00 PM (Arrive by 1:45 PM) Amy Perkins MD Orthopedics [phone] 08/07/2023 2:40 PM (Arrive by 2:25 PM) Elijah Nash DO Pain Medicine [phone] 08/22/2023 3:00 PM (Arrive by 2:45 PM) Aime Casas MD Neurological Surgery [phone] 08/27/2023 3:00 PM (Arrive by 2:45 PM) Brennan Wasserman MD Allergy & Immunology [phone] 10/01/2023 2:00 PM (Arrive by 1:45 PM) Amaya Singleton PA-C Cardiology [phone] 11/23/2023 2:40 PM (Arrive by 2:25 PM) Sotero Pizano MD Family Medicine [phone] 11/27/2023 2:00 PM (Arrive by 1:45 PM) Vernell Kimball PA-C Neurology [phone] 12/10/2023 3:30 PM Nurse [facility] [phone] 04/08/2024 3:15 PM (Arrive by 3:00 PM) Mario Kong MD Hematology Oncology [phone] 06/30/2024 1:30 PM (Arrive by 1:15 PM) MARKIE FUNES OBRIEN Radiology [phone] * Telephone Encounter - Nellie June RN - 07/20/2023 9:04 AM EDT Images from the original note were not included. [facility] Telephonic Nurse Follow-Up Call [facility] Subprogram: Focused Care Management (3-9 months) Follow Up Call Type: Routine follow up call / Status Check Acute issue requiring follow-up call: Heart Failure Exacerbation Other: weight gain, 1 extra dose of diuretic Objective: 07/03/2023 1:50 PM 06/19/2023 4:40 PM [...] EJECTION FRACTION Remote Patient Monitoring: AMC Scale: see below Oxygen Needs: NO supplemental oxygen needs identified DME Needs: NO DME needs identified Medications: Current DTP: Add additional 1 tab to afternoon dose of Torsemide on 07/17/2023 Subjective: Condition Status: Worsening of symptoms and New symptoms Current Concerns: Spoke with pt who states that she is still a little SOB worse than her baseline. She states that her weight is down 2 lbs from the other day but her usual weight is 254. The pt states she takes Torsemide 10mg in the am and 20 mg in the pm. She has been having less urinary output. Last BM this morning. She does c/o abdominal distention. Edema is no worse- extends to both knees. She has had these symptoms all week. Pt does have some nausea at times but does not take zofran as she states that it binds her. Denies chest pain. She does state that she gets lightheaded or dizzy if she moves too fast or turnsher head quickly. She admits to drinking more than her fluid restriction earlier this week as she "felt dehydrated" and felt that she just couldn't get enough to drink. Pt is c/o bilateral flank pain, states that she feels it on the sides of her mid back, like a constant ache, onset 2 days ago. Rates pain 6/10 at time of call. Denies fever or chills, denies burning with urination. Pain is greater on right than left. She states that the urine is very dark orange inthe reverberatory furnace supervisor and becomes a pale yellow as the day progresses. She denies any recent injury. The pt is requesting if she can have lab work done, she is concerned about her liver function. Advised pt she may also need labs to check on her kidney function. Disposition: Routed to [facility] and[facility]or [facility] at Home Care Team for further advice and Weekend call scheduled Future Visits Scheduled: Future Appointments-next 60 days Date/Time Provider Specialty Dept Phone 07/20/2023 1:30 PM Linda Mills Vp Corporate Development [facility] [phone] 07/25/2023 4:00 PM [facility] [phone] 07/30/2023 2:00 PM (Arrive by 1:45 PM) Amy Perkins MD Orthopedics [phone] 08/07/2023 2:40 PM (Arrive by 2:25 PM) Elijah Nash DO Pain Medicine [phone] 08/22/2023 3:00 PM (Arrive by 2:45 PM) Aime Casas MD Neurological Surgery [phone] 08/27/2023 3:00 PM (Arrive by 2:45 PM) Brennan Wasserman MD Allergy & Immunology [phone] 10/01/2023 2:00 PM (Arrive by 1:45 PM) Amaya Singleton PA-C Cardiology [phone] 11/23/2023 2:40 PM (Arrive by 2:25 PM) Sotero Pizano MD Family Medicine [phone] 11/27/2023 2:00 PM (Arrive by 1:45 PM) Vernell Kimball PA-C Neurology [phone] 12/10/2023 3:30 PM Nurse Annual [facility] [phone] 04/08/2024 3:15 PM (Arrive by 3:00 PM) Mario Kong MD Hematology Oncology [phone] 06/30/2024 1:30 PM (Arrive by 1:15 PM) [facility] Radiology [phone] Nellie June RN documented in this encounter Plan of Treatment Upcoming Encounters Date Type Specialty Care Team Description 07/21/2023 Scheduled Telephone [facility], Nurse [place] [address] [address] [place] [address] 07/22/2023 Scheduled Telephone [facility], Nurse [place] [address] [place] [address] 07/23/2023 Scheduled Telephone [facility] Advertising Columnist, [place] [address] [place] [address] 07/25/2023 Home Visit [facility] Ladi Joseph RN [facility] [address] [place] [address] 07/30/2023 Office Visit Orthopedics Amy Perkins MD [address] [place] [address] 08/07/2023 Office Visit Pain Medicine CouElijah lamas DO [address] [place] [address] 08/22/2023 Office Visit Neurological Surgery Aime Casas MD [address] [place] [address] 08/27/2023 Office Visit Allergy & Immunology Brennan Wasserman MD [address] [place] [address] 10/01/2023 Office Visit Cardiology Amaya Singleton PA-C [address] [place] [address] 11/23/2023 Office Visit Family Medicine Sotero Pizano MD [address] [place] [address] 11/27/2023 Office Visit Neurology Vernell Kimball PA-C [address] [facility] [place] [address] 12/10/2023 Nurse Only [facility]illary [place], Nurse [facility] [address] [place], [place] [address] 04/08/2024 Office Visit Hematology Oncology Mario Kong MD [address] [place] [address] 06/30/2024 Imaging Radiology Scheduled Orders Name Type Priority Associated Diagnoses Orde r Schedule COMPREHENSIVE METABOLIC PANEL Lab Routine Hypertensive heart and kidney disease with chronic diastolic congestive heart failure and stage 3b chronic kidney disease (HCC) Expected: 07/20/2023 (Approximate), Expires: 07/20/2024 BNP, NT-PRO Lab Routine Hypertensive heart and kidney disease with chronic diastolic congestive heart failure and stage 3b chronic kidney disease (HCC) Expected: 07/20/2023 (Approximate), Expires: 07/20/2024 Health Maintenance Due Date Last Done Comments COVID-19 Vaccine (3 - Pfizer series) 04/14/2021 02/17/2021, 01/27/2021 Pneumococcal Vaccine: 65+ Years (2 - PCV) 02/24/2023 02/24/2022 Albumin/Creatinine Ratio 06/28/2023 06/28/2022 Influenza Vaccine (FLU shot) (#1) 2023 09/08/2021, 07/29/2020 Depression Screening 12/07/2023 12/07/2022 GFR 12/22/2023 06/21/2023, 0612/2022, 03/21/2023, Additional history exists CKD PHOS USE SMARTSET 93883 03/16/202403/05, 03/29/2022, 05/13/2021, Additional history exists CKD HGB USE SMARTSET 55311 04/25/202404/25, 04/25/2023, 04/06/2023, Additional history exists Mammogram [...] encounter Medical Devices Implanted Type Area Supervisor Intelligence Analyst Device Identifier Shelf Expiration Date Model / Serial / Lot Terumo Microvention Hydrosoft 3d Implanted:Qty: 1 on 08/16/2018 [place] [facility] Head [employer] : INTERVENTIONA 07/05/2023 [id number] / [id number] / [id number] Hd Offset Hum 46x16 - [id number] Implanted:Qty: 1 on 09/28/2020 by Teresa Rehman DO at OR [facility] Left: Shoulder DJO SURGICAL 06/17/2026 520-46-31 6 / / [id number] documented as of this encounter Visit Diagnoses Diagnosis Hypertensive heart and kidney disease with chronic diastolic congestive heart failure and stage 3b chronic kidney disease (HCC)- Primary documented in this encounter Advance [...] and were consensually agreed upon. Care Teams Interpreter Relationship Specialty Start Date End Date March, Sotero Sutton MD [address] [place] [address] PCP - General Family Medicine 12/07/22 documented as of this encounter
--- OUTSIDE RECORDS SUMMARY | 2023-11-15 04:31 | External Medical Summary | Summary of Care ---
Author Name Unknown Organization [facility] Address [address] [facility] [place] [place] [address] Phone [phone] Care Team Providers Care Sql Database Programmer Name Role Phone Sotero Pizano MD Primary Care Provider [phone] Reason for Visit * Reason Onset Date Comments [facility]: Maintenance 07/19/2023 Encounter Details Date Type Department Care Team Description 07/19/2023 Scheduled Telephone [facility], [facility] [address] [facility] [place] [address] Coordinator, [facility] [address] [place] [address] Allergies Active Allergy Reactions Severity Noted Date [...] as of this encounter (statuses as of 07/19/2023) Medications Medication Sig Dispensed Refills Start Date [...] 03/15/2022 Active Vitamin D (Ergocalciferol) 1.25 MG (30520 UT) Oral Capsule TAKE ONE CAPSULE BY [...] as of this encounter (statuses as of 07/19/2023) Active Problems Problem Noted Date Iron deficiency [...] as of this encounter (statuses as of 07/19/2023) Resolved Problems Problem Noted Date Resolved Date [...] as of this encounter (statuses as of 07/19/2023) Immunizations Name Administration Dates Next Due COVID-19 [...] Telephone Encounter - Laurie Cabrera RN - 07/19/2023 1:52 PM EDT Images from the original note were not included. [facility] Telephonic Nurse Follow-Up Call [facility] Subprogram: Focused Care Management (3-9 months) Follow Up Call Type: 48 hour follow up Acute issue requiring follow-up call: Heart Failure Exacerbation Objective: 07/03/2023 1:50 PM 06/19/2023 4:40 PM [...] DME Needs: NO DME needs identified Medications: Dose adjustment(s) made: Add 1 additional table of Torsemide to 07/17 afternoon dose Subjective: Condition Status: UTC, message left for callback Current Concerns: [facility] Disposition: Follow up call scheduled for tomorrow with COMMUNICATION AND OUTREACH MANAGER [employer] Future Visits Scheduled: Future Appointments-next 60 days Date/Time Provider Specialty Dept Phone 07/25/2023 4:00 PM Ladi Joseph RN [facility] [phone] 07/30/2023 2:00 PM (Arrive by 1:45 PM) Amy Perkins MD Orthopedics [phone] 08/07/2023 2:40 PM (Arrive by 2:25 PM) Elijah Nash DO Pain Medicine [phone] 08/22/2023 3:00 PM (Arrive by 2:45 PM) Aime Casas MD Neurological Surgery [phone] 08/27/2023 3:00 PM (Arrive by 2:45 PM) Brennan Wasserman MD Allergy & Immunology [phone] 10/01/2023 2:00 PM (Arrive by 1:45 PM) Amaya Singleton PA-C Cardiology [phone] 11/23/2023 2:40 PM (Arrive by 2:25 PM) Sotero Pizano MD Family Medicine [phone] 11/27/2023 2:00 PM (Arrive by 1:45 PM) Vernell Kimball PA-C Neurology [phone] 12/10/2023 3:30 PM Nurse [facility] [phone] 04/08/2024 3:15 PM (Arrive by 3:00 PM) Mario Kong MD Hematology Oncology [phone] 06/30/2024 1:30 PM (Arrive by 1:15 PM) [address] Radiology [phone] Laurie Cabrera, JEREMY documented in this encounter Plan of Treatment Upcoming Encounters Date Type Specialty Care Team Description 07/20/2023 Scheduled Telephone [facility] Assembly Room Supervisor, Linda Zimmerman [address] [place] [address] 07/25/2023 Home Visit [facility] Ladi Joseph, RN [address] [place] [address] 07/30/2023 Office Visit Orthopedics Amy Perkins MD [address] [place] [address] 08/07/2023 Office Visit Pain Medicine Elijah Nash DO [address] [place] [address] 08/22/2023 Office Visit Neurological Surgery Aime Casas MD [address] [place] [address] 08/27/2023 Office Visit Allergy & Immunology Brennan Wasserman MD [address] [place] [address] 10/01/2023 Office Visit Cardiology Amaya Singleton PA-C [address] [place] [address] 11/23/2023 Office Visit Family Medicine Sotero Pizano MD [address] [place] [address] 11/27/2023 Office Visit Neurology Vernell Kimball PA-C [address] [place] [address] 12/10/2023 Nurse Only [facility], Nurse [facility] [address] [facility] [place] [address] 04/08/2024 Office Visit Hematology Oncology Mario Kong MD [address] [facility] [address] 06/30/2024 Imaging Radiology Health Maintenance Due Date Last Done Comments COVID-19 Vaccine (3 - Pfizer series) 04/14/2021 02/17/2021, 01/27/2021 Pneumococcal Vaccine: 65+ Years (2 - PCV) 02/24/2023 02/24/2022 Albumin/Creatinine Ratio 06/28/2023 06/28/2022 Influenza Vaccine (FLU shot) (#1) 2023 09/08/2021, 07/29/2020 Depression Screening 12/07/2023 12/07/2022 GFR 12/22/2023 06/21/2023, 0612/2022, 03/21/2023, Additional history exists CKD PHOS USE SMARTSET 54475 03/16/202403/05, 03/29/2022, 05/13/2021, Additional history exists CKD HGB USE SMARTSET 45707 04/25/202404/25, 04/25/2023, 04/06/2023, Additional history exists Mammogram [...] this encounter Medical Devices Implanted Type Area Closing Agent Device Identifier Shelf Expiration Date Model / Serial / Lot Terumo Microvention Hydrosoft 3d Implanted:Qty: 1 on 08/16/2018 by Aime Casas MD at [place] [facility] N/A: Head [employer] : [employer] 07/05/2023 [id number] / [id number] / [id number] Hd Offset Hum 46x16 - [id number] Implanted:Qty: 1 on 09/28/2020 by Teresa Rehman DO at OR [facility] Left: Shoulder DJO SURGICAL 06/17/2026 520-46-31 6 / / [id number] documented as of this encounter Advance Directives [...] and were consensually agreed upon. Care Teams Sql Database Programmer Relationship Specialty Start Date End Date March, Sotero Sutton MD [address] [place], [place] [id number] PCP - General Family Medicine 12/07/22 documented as of this encounter
--- OUTSIDE RECORDS SUMMARY | 2023-11-15 04:31 | External Medical Summary | Summary of Care ---
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 Pt was able to repeat back. [facility] for the next 3 days scheduled. Nellie HARO, RN [facility] Intake Triage Coordinator [phone] * Addendum Note - Cecelia Lindsey DO - 07/20/2023 10:07 AM EDTAddended by: CECELIA LINDSEY on: 07/20/2023 10:07 AM Modules accepted: Orders * Telephone Encounter - Cecelia Lindsey DO - 07/20/2023 10:05 AM EDT [facility] Remote Medical Command QuickNote [facility] Subprogram: Focused Care Management (3-[address]) [facility] Episode Start Date: Noted: 03/15/2023 Recommendations: Based on [facility] data and symptoms reported, I think we can continue an additional 20mg Torsemide dailyx [address] orders for a BNP/CMP if warranted post-DTP Orders: Plan Comprehensive Metabolic Panel BNP, NT-PRO To Do: Please see below for follow up items to be completed and correspondence: SOTERO Peterson's Care Team machine filler Pool please work on the following: contact the caller with advice and orders as above Cecelia Lindsey DO Remote Medical Command - [facility] 07/20/2023 Scheduled appointments in the next 60 days: Future Appointments-next 60 days Date/Time Provider Specialty Dept Phone 07/20/2023 1:30 [facility] [phone] 07/21/2023 10:[address] [facility] [phone] 07/22/2023 9:[address] [facility] [phone] 07/25/2023 4:00 PM Ladi Joseph RN [facility] [phone] 07/30/2023 2:00 PM (Arrive by 1:45 PM) Amy Perkins MD Orthopedics [phone] 08/07/2023 2:40 PM (Arrive by 2:25 PM) Elijah Nash DO Pain Medicine [phone] 08/22/2023 3:00 PM (Arrive by 2:45 PM) Aime Cassa MD Neurological Surgery [phone] 08/27/2023 3:00 PM (Arrive by 2:45 PM) Brennan Wasserman MD Allergy & Immunology [phone] 10/01/2023 2:00 PM (Arrive by 1:45 PM) Amaya Singleton PA-C Cardiology [phone] 11/23/2023 2:40 PM (Arrive by 2:25 PM) Sotero Pizano MD Family Medicine [phone] 11/27/2023 2:00 PM (Arrive by 1:45 PM) Vernell Kimball PA-C Neurology [phone] 12/10/2023 3:30 PM Nurse Annual [facility] [phone] 04/08/2024 3:15 PM (Arrive by 3:00 PM) Mario Kong MD Hematology Oncology [phone] 06/30/2024 1:30 PM (Arrive by 1:15 PM) MARKIE FUNES OBRIEN Radiology [phone] * Telephone Encounter - Nellie June RN - 07/20/2023 9:04 AM EDT Images from the original note were not included. [facility] Telephonic Nurse Follow-Up Call 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 She denies any recent injury. The pt is requesting if she can have lab work done, she is concerned about her liver function. Advised pt she may also need labs to check on her kidney function. Disposition: Routed to [facility] and/or [facility] at [facility] Care Team for further advice and Weekend call scheduled Future Visits Scheduled: Future Appointments-next 60 days Date/Time Provider Specialty Dept Phone 07/20/2023 1:30 PM Linda Mills [facility] [phone] 07/25/2023 4:00 PM [facility] [phone] 07/30/2023 2:00 PM (Arrive by 1:45 PM) Amy Perkins MD Orthopedics [phone] 08/07/2023 2:40 PM (Arrive by 2:25 PM) Elijah Nash DO Pain Medicine [phone] 08/22/2023 3:00 PM (Arrive by 2:45 PM) Aime Casas MD Neurological Surgery [phone] 08/27/2023 3:00 PM (Arrive by 2:45 PM) Brennan Wasserman MD Allergy & Immunology [phone] 10/01/2023 2:00 PM (Arrive by 1:45 PM) Amaya Singleton PA-C Cardiology [phone] 11/23/2023 2:40 PM (Arrive by 2:25 PM) Sotero Pizano MD Family Medicine [phone] 11/27/2023 2:00 PM (Arrive by 1:45 PM) Vernell Kimball PA-C Neurology [phone] 12/10/2023 3:30 PM Nurse Annual [facility] [phone] 04/08/2024 3:15 PM (Arrive by 3:00 PM) Mario Kong MD Hematology Oncology [phone] 06/30/2024 1:30 PM (Arrive by 1:15 PM) [facility] Radiology [phone] Nellie June RN documented in this encounter Plan of Treatment Upcoming Encounters Date Type Specialty Care Team Description 07/21/2023 Scheduled Telephone [facility], Nurse [place] [address] [address] [place] [address] 07/22/2023 Scheduled Telephone [facility] Region, Nurse [place] [address] [place] [address] 07/23/2023 Scheduled Telephone [facility] Global Chief Experience Officer, [place] [address] [place] [address] 07/25/2023 Home Visit [facility] Ladi Joseph RN [employer] [address] [place] [address] 07/30/2023 Office Visit Orthopedics Amy Perkins MD [address] [place] [address] 08/07/2023 Office Visit Pain Medicine CouElijah lamas DO [address] [place] [address] 08/22/2023 Office Visit Neurological Surgery Aime Casas MD [address] [place] [address] 08/27/2023 Office Visit Allergy & Immunology Brennan Wasserman MD [address] [place] [address] 10/01/2023 Office Visit Cardiology Amaya Singleton PA-C [address] [place] [address] 11/23/2023 Office Visit Family Medicine Sotero Pizano MD [address] [place] [address] 11/27/2023 Office Visit Neurology Vernell Kimball PA-C [address] [place] [address] 12/10/2023 Nurse Only Ancillary [place], Nurse [facility] [address] [place], [place] [phone] 04/08/2024 Office Visit Hematology Oncology Mario Kong MD [address] [place] [address] 06/30/2024 Imaging Radiology Scheduled Orders Name Type [...] Additional history exists CKD PHOS USE SMARTSET 35574 03/16/202403/05, 03/29/2022, 05/13/2021, Additional history exists CKD HGB USE SMARTSET 22499 04/25/202404/25, 04/25/2023, 04/06/2023, Additional history exists Mammogram [...] this encounter Medical Devices Implanted Type Area Carbon Furnace Operator Helper Device Identifier Shelf Expiration Date Model / Serial / Lot Terumo Microvention Hydrosoft 3d Implanted:Qty: 1 on 08/16/2018 by Aime Casas MD at OR [facility] N/A: Head [employer] : INTERVENTIONA 07/05/2023 8485-3623 / [id number] / [id number] Hd Offset Hum 46x16 - [id number] Implanted:Qty: 1 on 09/28/2020 by Teresa Rehman DO at OR [facility] Left: Shoulder DJO SURGICAL 06/17/2026 520-46-31 6 / / [id number] documented as of this encounter Visit Diagnoses [...] and were consensually agreed upon. Care Teams Exterminator Relationship Specialty Start Date End Date March, Sotero Sutton MD [address] [place] [address] PCP - General Family Medicine 12/07/22 documented as of this encounter
--- OUTSIDE RECORDS SUMMARY | 2023-11-15 04:31 | External Medical Summary | Summary of Care ---
Author Name Unknown Organization [facility] Address [address] [facility] [place] [address] Phone [phone] Care Team Providers Care Gas Maker Helper Name Role Phone Sotero Pizano MD Primary Care Provider [phone] Reason for Visit * Reason Onset Date Comments [facility]: Maintenance 07/18/2023 Encounter Details Date Type Department Care Team Description 07/18/2023 Scheduled Telephone [facility], [facility] [address] [facility] [place] [address] Coordinator, [facility] [address] [place] [address] Allergies Active Allergy Reactions Severity Noted Date [...] as of this encounter (statuses as of 07/18/2023) Medications Medication Sig Dispensed Refills Start Date [...] 03/15/2022 Active Vitamin D (Ergocalciferol) 1.25 MG (33272 UT) Oral Capsule TAKE ONE CAPSULE BY [...] as of this encounter (statuses as of 07/18/2023) Active Problems Problem Noted Date Iron deficiency [...] as of this encounter (statuses as of 07/18/2023) Resolved Problems Problem Noted Date Resolved Date [...] as of this encounter (statuses as of 07/18/2023) Immunizations Name Administration Dates Next Due COVID-19 [...] Telephone Encounter - Reanna Molina RN - 07/18/2023 8:20 AM EDT Images from the original note were not included. [facility] Telephonic Nurse Follow-Up Call [facility] Subprogram: Focused Care Management (3-9 months) Follow Up Call Type: 24 hour follow up Acute issue requiring follow-up [...] EJECTION FRACTION Remote Patient Monitoring: [facility] Scale: no weight yet recorded today Oxygen Needs: NO supplemental oxygen needs identified DME Needs: NO DME needs identified Medications: Current DTP: Add additional 1 tab to afternoon dose of Torsemide on 07/17/2023 Subjective: Condition Status: awaiting call back from patient. Current Concerns: F/u call. 07/17 Cardiology ordered patient to take extra 20 MG Torsemide. Call to patient and left msg requesting call back to [facility]. Patient has no recorded [facility] weight yet today. Disposition: Follow up call scheduled for tomorrow with [facility] [employer] [employer] Future Visits Scheduled: Future Appointments-next 60 days Date/Time Provider Specialty Dept Phone 07/18/2023 11:30 AM [facility] [employer] [facility] [phone] 07/19/2023 10:45 AM [facility] [phone] 07/25/2023 4:00 PM Ladi Joseph RN [facility] [phone] 07/30/2023 2:00 PM (Arrive by 1:45 PM) Amy Perkins MD Orthopedics [phone] 08/07/2023 2:40 PM (Arrive by 2:25 PM) Elijah Nash DO Pain Medicine [phone] 08/22/2023 3:00 PM (Arrive by 2:45 PM) Aime Casas MD Neurological Surgery [phone] 08/27/2023 3:00 PM (Arrive by 2:45 PM) Brennan Wasserman MD Allergy & Immunology [phone] 10/01/2023 2:00 PM (Arrive by 1:45 PM) Amaya Singleton PA-C Cardiology [phone] 11/23/2023 2:40 PM (Arrive by 2:25 PM) Sotero Pizano MD Family Medicine [phone] 11/27/2023 2:00 PM (Arrive by 1:45 PM) Vernell Kimball PA-C Neurology [phone] 12/10/2023 3:30 PM Nurse Annual [facility] [phone] 04/08/2024 3:15 PM (Arrive by 3:00 PM) Mario Kong MD Hematology Oncology [phone] 06/30/2024 1:30 PM (Arrive by 1:15 PM) [email or web address] Radiology [phone] Reanna Molina, RN documented in this encounter Plan of Treatment Upcoming Encounters Date Type Specialty Care Team Description 07/19/2023 Scheduled Telephone [facility] Vice Chair, Linda Zimmerman [address] [place] [address] 07/25/2023 Home Visit [facility] Ladi Joseph RN [address] [place] [address] 07/30/2023 Office Visit Orthopedics Amy Perkins MD [address] [place] [address] 08/07/2023 Office Visit Pain Medicine Elijah Nash DO [address] [place] [address] 08/22/2023 Office Visit Neurological Surgery Aime Casas MD [address] [place] [facility] [place] [address] 08/27/2023 Office Visit Allergy & Immunology Brennan Wasserman MD [address] [facility] [place] [address] 10/01/2023 Office Visit Cardiology Amaya Singleton PA-C [address] [place], [place] [address] 11/23/2023 Office Visit Family Medicine May, Sotero Herman, MD [address] [place] [address] 11/27/2023 Office Visit Neurology Vernell Kimball PA-C [address] [place] [address] 12/10/2023 Nurse Only [facility] [address] [place] [address] 04/08/2024 Office Visit Hematology Oncology Mario Kong MD [address] [place], [place] [phone] 06/30/2024 Imaging Radiology Health Maintenance Due Date Last Done Comments COVID-19 Vaccine (3 - Pfizer series) 04/14/2021 02/17/2021, 01/27/2021 Pneumococcal Vaccine: 65+ Years (2 - PCV) 02/24/2023 02/24/2022 Albumin/Creatinine Ratio 06/28/2023 06/28/2022 Influenza Vaccine (FLU shot) (#1) 2023 09/08/2021, 07/29/2020 Depression Screening 12/07/2023 12/07/2022 GFR 12/22/2023 06/21/2023, 06/12/2022, 03/21/2023, Additional history exists CKD PHOS USE SMARTSET 85606 03/16/202403/05, 03/29/2022, 05/13/2021, Additional history exists CKD HGB USE SMARTSET 67286 04/25/202404/25, 04/25/2023, 04/06/2023, Additional history exists Mammogram [...] this encounter Medical Devices Implanted Type Area Marketing Operations Assistant Device Identifier Shelf Expiration Date Model / Serial / Lot Terumo Microvention Hydrosoft 3d Implanted:Qty: 1 on 08/16/2018 by Aime Casas MD at OR [facility] N/A: Head [employer] : INTERVENTIONA 07/05/2023 [id number] / [id number] / [id number] Hd Offset Hum 46x16 - [id number] Implanted:Qty: 1 on 09/28/2020 by Teresa Rehman DO at OR [facility] Left: Shoulder DJO SURGICAL 06/17/2026 520-46-31 6 / / [id number] documented as of this encounter Advance Directives [...] and were consensually agreed upon. Care Teams Gas Maker Helper Relationship Specialty Start Date End Date March, Sotero Sutton MD [address] [facility] [place] [address] PCP - General Family Medicine 12/07/22 documented as of this encounter
--- OUTSIDE RECORDS SUMMARY | 2023-11-15 04:31 | External Medical Summary | Summary of Care ---
Author Name Unknown Organization [facility] Address [address] [facility] [place] [place] [address] Phone [phone] Care Team Providers Care Fleet Assistant Name Role Phone Sotero Pizano MD Primary Care Provider [phone] Reason for Visit * Reason Onset Date Comments [facility]: Maintenance 07/20/2023 Encounter Details Date Type Department Care Team Description 07/20/2023 Scheduled Telephone [facility], [facility] [address] [place] [address] Coordinator, [facility] [address] [place] [address] Hypertensive heart and kidney disease with chronic [...] 03/15/2022 Active Vitamin D (Ergocalciferol) 1.25 MG (65256 UT) Oral Capsule TAKE ONE CAPSULE BY [...] her. Pt was able to repeat back. [facility] for the next 3 days scheduled. Nellie HARO, RN [facility] Intake Triage Coordinator [phone] * Addendum Note - Cecelia Lindsey DO - 07/20/2023 10:07 AM EDTAddended by: CECELIA LINDSEY on: 07/20/2023 10:07 AM Modules accepted: Orders * Telephone Encounter - Cecelia Lindsey DO - 07/20/2023 10:05 AM EDT [facility] Remote Medical Command QuickNote [facility] Subprogram: Focused Care Management (3-9 months) [facility] Episode Start Date: Noted: 03/15/2023 Recommendations: Based on [facility] data and symptoms reported, I think we can continue an additional 20mg Torsemide dailyx [address] orders for a BNP/CMP if warranted post-DTP Orders: Plan Comprehensive Metabolic Panel BNP, NT-PRO To Do: Please see below for follow up items to be completed and correspondence: SOTERO Peterson's Care Team fusing machine feeder Pool please work on the following: contact the caller with advice and orders as above Cecelia Lindsey DO Remote Medical Command - [facility] 07/20/2023 Scheduled appointments in the next 60 days: Future Appointments-next 60 days Date/Time Provider Specialty Dept Phone 07/20/2023 1:30 PM [facility] [phone] 07/21/2023 10:00 AM Nurse [facility] [phone] 07/22/2023 9:30 AM Nurse [facility] [phone] 07/25/2023 4:00 PM Ladi Joseph RN [facility] [phone] 07/30/2023 2:00 PM (Arrive by 1:45 PM) Amy Perkins MD Orthopedics [phone] 08/07/2023 2:40 PM (Arrive by 2:25 PM) Elijah Nash DO Pain Medicine [phone] 08/22/2023 3:00 PM (Arrive by 2:45 PM) Aime Casas MD Neurological Surgery [phone] 08/27/2023 3:00 PM (Arrive by 2:45 PM) Brennan Wasserman MD Allergy & Immunology [phone] 10/01/2023 2:00 PM (Arrive by 1:45 PM) Amaya Singleton PA-C Cardiology [phone] 11/23/2023 2:40 PM (Arrive by 2:25 PM) Sotero Pizano MD Family Medicine [phone] 11/27/2023 2:00 PM (Arrive by 1:45 PM) Vernell Kimball PA-C Neurology [phone] 12/10/2023 3:30 PM Nurse [facility] [phone] 04/08/2024 3:15 PM (Arrive by 3:00 PM) Mario Kong MD Hematology Oncology [phone] 06/30/2024 1:30 PM (Arrive by 1:15 PM) MARKIE FUNES OBRIEN Radiology [phone] * Telephone Encounter - Nellie June RN - 07/20/2023 9:04 AM EDT Images from the original note were not included. 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 She denies any recent injury. The pt is requesting if she can have lab work done, she is concerned about her liver function. Advised pt she may also need labs to check on her kidney function. Disposition: Routed to [facility] and/or [facility] at Home Care Team for further advice and Weekend call scheduled Future Visits Scheduled: Future Appointments-next 60 days Date/Time Provider Specialty Dept Phone 07/20/2023 1:30 PM Linda [place] Doubler Helper [facility] [phone] 07/25/2023 4:00 PM [facility] [phone] 07/30/2023 2:00 PM (Arrive by 1:45 PM) Amy Perkins MD Orthopedics [phone] 08/07/2023 2:40 PM (Arrive by 2:25 PM) Elijah Nash DO Pain Medicine [phone] 08/22/2023 3:00 PM (Arrive by 2:45 PM) Aime Casas MD Neurological Surgery [phone] 08/27/2023 3:00 PM (Arrive by 2:45 PM) Brennan Wasserman MD Allergy & Immunology [phone] 10/01/2023 2:00 PM (Arrive by 1:45 PM) Amaya Singleton PA-C Cardiology [phone] 11/23/2023 2:40 PM (Arrive by 2:25 PM) Sotero Pizano MD Family Medicine [phone] 11/27/2023 2:00 PM (Arrive by 1:45 PM) Vernell Kimball PA-C Neurology [phone] 12/10/2023 3:30 PM Nurse Annual [facility] [phone] 04/08/2024 3:15 PM (Arrive by 3:00 PM) Mario Kong MD Hematology Oncology [phone] 06/30/2024 1:30 PM (Arrive by 1:15 PM) [facility] Radiology [phone] Nellie June RN documented in this encounter Plan of Treatment Upcoming Encounters Date Type Specialty Care Team Description 07/21/2023 Scheduled Telephone [facility] Region, Nurse [place] [address] [address] [place] [address] 07/22/2023 Scheduled Telephone [facility] Region, Nurse [place] [address] [place] [address] 07/23/2023 Scheduled Telephone [facility] Music Internship, [place] [address] [place] [address] 07/25/2023 Home Visit [facility] Ladi Joseph RN [employer] [address] [place] [address] 07/30/2023 Office Visit Orthopedics Amy Perkins MD [address] [place] [address] 08/07/2023 Office Visit Pain Medicine CouElijah lamas DO [address] [place] [address] 08/22/2023 Office Visit Neurological Surgery Aime Casas MD [address] [place] [address] 08/27/2023 Office Visit Allergy & Immunology Brennan Wasserman MD [address] [place] [address] 10/01/2023 Office Visit Cardiology Amaya Singleton PA-C [address] [place] [address] 11/23/2023 Office Visit Family Medicine Sotero Pizano MD [address] [place] [address] 11/27/2023 Office Visit Neurology Vernell Kimball PA-C [address] [facility] [place] [address] 12/10/2023 Nurse Only Ancillary [place], Nurse [facility] [address] [place], [place] [address] 04/08/2024 Office Visit Hematology Oncology Mario Kong MD [address] [place] [address] 06/30/2024 Imaging Radiology Scheduled Orders Name Type [...] Additional history exists CKD PHOS USE SMARTSET 92278 03/16/202403/05, 03/29/2022, 05/13/2021, Additional history exists CKD HGB USE SMARTSET 82793 04/25/202404/25, 04/25/2023, 04/06/2023, Additional history exists Mammogram [...] this encounter Medical Devices Implanted Type Area Installer Inspector Final Device Identifier Shelf Expiration Date Model / Serial / Lot Terumo Microvention Hydrosoft 3d Implanted:Qty: 1 on 08/16/2018 by Aime Cassa MD at OR [facility] N/A: Head [employer] : INTER[employer]IONA 07/05/2023 9897-2057 / [id number] / [id number] Hd Offset Hum 46x16 - [id number] Implanted:Qty: 1 on 09/28/2020 by Teresa Rehman DO at OR [facility] Left: Shoulder DJO SURGICAL 06/17/2026 520-46-31 6 / / [id number] documented as of this encounter Visit Diagnoses [...] and were consensually agreed upon. Care Teams Fleet Assistant Relationship Specialty Start Date End Date March, Sotero Sutton MD [address] [place] [address] PCP - General Family Medicine 12/07/22 documented as of this encounter
--- OUTSIDE RECORDS SUMMARY | 2023-11-15 04:31 | External Medical Summary | Summary of Care ---
Author Name Unknown Organization [facility] Address [address] [facility] [place] [address] Phone [phone] Care Team Providers Care Sandstone Inspector Repairer Name Role Phone Sotero Pizano MD Primary Care Provider [phone] Reason for Visit * Reason Onset Date Comments [facility]: Maintenance 07/17/2023 Encounter Details Date Type Department Care Team Description 07/17/2023 Telephone [facility], [facility] [address] [facility] [place] [address] [facility], Nurse [facility] [address] [facility] [place] [address] [facility]: [...] 03/15/2022 Active Vitamin D (Ergocalciferol) 1.25 MG (76813 UT) Oral Capsule TAKE ONE CAPSULE BY [...] Encounter - Regina Wheat LPN - 07/17/2023 1:59 PM EDT Spoke with patient, she is aware of message and will take extra 20 mg of torsemide today Placed on schedule for 24/48 hr calls * Telephone Encounter - Xu Donaldson PA-C - 07/17/2023 12:59 PM EDT [facility] Remote Medical Command Phone Encounter [facility]/M Phone Encounter Thank you @sender@ for your assistance in the care of this patient today. Reviewed phone message regarding the patient's weight and [facility]/CHM findings. Please see below for the response to the trigger: Symptomatic HF Recommendations: Per Cardiology-DTP- take an extra 20 mg torsemide today. F/U call next 2 days I would have Kristen Grecon continue to weigh on a daily basis [...] included. [facility] (Advanced Monitored Caregiving) Weight Trigger [facility] Data: Spoke with patient for [facility] weight trigger. Patient states at first her [facility] scale wasn't working correctly but states she is feeling more short of breath than usual. Denies edema, cough, cp. States yesterday with heat/humidity did drink a little over her fluid restriction. Will forward to [facility] team to see about DTP initiation. Baseline [...] 2 liter fluid restriction Plan/Treatment: Route to [facility] (Remote Medical Coordinator) Education Review: Reviewed HF [...] Encounters Date Type Specialty Care Team Description 07/18/2023 Scheduled Telephone [facility], [address] [place] [id number] 07/19/2023 Scheduled Telephone [facility], Hudsonreynaldo Zimmerman [address] [place] [address] 07/25/2023 Home Visit [facility] Ladi Joseph, RN [address] [place] [address] 07/30/2023 Office Visit Orthopedics Amy Perkins MD [address] [place] [address] 08/07/2023 Office Visit Pain Medicine Elijah Nash DO [address] [place] [address] 08/22/2023 Office Visit Neurological Surgery Aime Casas MD [address] [place], [place] [phone] 08/27/2023 Office Visit Allergy & Immunology Brennan Wasserman MD [address] [place], [place] [phone] 10/01/2023 Office Visit Cardiology Amaya Singleton PA-C [address] [place] [address] 11/23/2023 Office Visit Family Medicine Sotero Pizano MD [address] [place] [address] 11/27/2023 Office Visit Neurology Vernell Kimball PA-C [address] [place] [address] 12/10/2023 Nurse Only [facility] Nurse Annual [facility] [address] [place] [facility] [place] [address] 04/08/2024 Office Visit Hematology Oncology Mario Kong MD [address] [facility] [address] 06/30/2024 Imaging Radiology Health Maintenance Due Date Last Done Comments COVID-19 Vaccine (3 - Pfizer series) 04/14/2021 02/17/2021, 01/27/2021 Pneumococcal Vaccine: 65+ Years (2 - PCV) 02/24/2023 02/24/2022 Albumin/Creatinine Ratio 06/28/2023 06/28/2022 Influenza Vaccine (FLU shot) (#1) 2023 09/08/2021, 07/29/2020 Depression Screening 12/07/2023 12/07/2022 GFR 12/22/2023 06/21/2023, 0612/2022, 03/21/2023, Additional history exists CKD PHOS USE SMARTSET 36490 03/16/202403/05, 03/29/2022, 05/13/2021, Additional history exists CKD [...] this encounter Medical Devices Implanted Type Area Strip Polisher Device Identifier Shelf Expiration Date Model / Serial / Lot Terumo Microvention Hydrosoft 3d Implanted:Qty: 1 on 08/16/2018 by Aime Casas MD at OR [place] N/A: Head [employer] : INTERVENTIONA 07/05/2023 9849-2030 / [id number] / [id number] Hd Offset Hum 46x16 - [id number] Implanted:Qty: 1 on 09/28/2020 by Teresa Rehman DO at OR [facility] Left: Shoulder DJO SURGICAL 06/17/2026 520-46-31 6 / / [id number] documented as of this encounter Advance Directives [...] and were consensually agreed upon. Care Teams Sandstone Inspector Repairer Relationship Specialty Start Date End Date March, Sotero Sutton MD [address] [place] [address] PCP - General Family Medicine 12/07/22 documented as of this encounter
--- OUTSIDE RECORDS SUMMARY | 2023-11-15 04:31 | External Medical Summary | Summary of Care ---
Author Name Unknown Organization [facility] Address [address] [facility] [place] [address] Phone [phone] Care Team Providers Care Splicer Apprentice Name Role Phone Sotero Pizano MD Primary Care Provider [phone] Reason for Visit * Reason Onset Date Comments Medication Refill 07/17/2023 Encounter Details Date Type Department Care Team Description 07/17/2023 Refill Neurology [facility] [address] [facility] [place] [address] Vernell Kimball PA-C 21 [facility] [place] [id number] Allergies Active Allergy Reactions Severity Noted Date [...] 03/15/2022 Active Vitamin D (Ergocalciferol) 1.25 MG (52328 UT) Oral Capsule TAKE ONE CAPSULE BY [...] 07/03/2023 Ondansetron HCl 4 MG Oral Tablet (Zofran)Sondrao ns:Nausea TAKE 1 TABLET BY MOUTH EVERY [...] Active Losartan Potassium 25 MG Oral Tablet (Cozaar)Sondrao ns:Chronic kidney disease, stage 3b (HCC),HTN, goal below 140/90 Take 0.5 Tablets by mouth in the morning. 34 Tablet 11 06/02/2023 Active Magnesium Oxide -Mg Supplement 400 (240 Mg) MG Oral Tablet (Mag-Ox)Indicatio ns:HTN, goal below 140/90 TAKE 1 TABLET BY MOUTH EVERY MORNING 90 Tablet 0 06/19/2023 Active Torsemide 10 MG Oral Tablet (Demadex)Indicati [...] in pm. 120 Capsule 3 07/17/2023 Active Pregabalin 25 MG Oral Capsule (Lyrica) Take 1 capsule in the am, and 2 capsules in pm. 90 Capsule 3 06/18/2023 3 Discontinue d(Refill) documented as of this [...] encounter Miscellaneous Notes * Telephone Encounter - Vernell Kimball PA-C - 07/17/2023 11:57 AM EDTSigned Prescriptions: Disp Refills Pregabalin 25 MG Oral Capsule (Lyrica) 120 Ca*3 Sig: Take 2 capsule in the am, and 2 capsules in pm. Authorizing Provider: VERNELL KIMBALL * Telephone Encounter - Maxine Diez LPN - 07/17/2023 11:11 AM EDT Pt told pharmacy she is taking 4 capsules now. Rx reflects. Please sign if appropriate. documented in this encounter Plan of Treatment Upcoming Encounters Date Type Specialty Care Team Description 07/25/2023 Home Visit [facility] Ladi Joseph RN [address] [place] [address] 07/30/2023 Office Visit Orthopedics Amy Perkins MD [address] [place] [address] 08/07/2023 Office Visit Pain Medicine Elijah NashianDO [address] [place] [address] 08/22/2023 Office Visit Neurological Surgery Aime Casas MD [address] [place] [address] 08/27/2023 Office Visit Allergy & Immunology Brennan Wasserman MD [address] [place] [address] 10/01/2023 Office Visit Cardiology Amaya Singleton PA-C [address] [place] [address] 11/23/2023 Office Visit Family Medicine Sotero Pizano MD [address] [place] [address] 11/27/2023 Office Visit Neurology Vernell Kimball PA-C [address] [place] [address] 12/10/2023 Nurse Only [facility], Nurse Annual [facility] [address] [place] [address] 04/08/2024 Office Visit Hematology Oncology Mario Kong MD [address] [place], [place] [address] 06/30/2024 Imaging Radiology Health Maintenance Due Date Last Done Comments COVID-19 Vaccine (3 - Pfizer series) 04/14/2021 02/17/2021, 01/27/2021 Pneumococcal Vaccine: 65+ Years (2 - PCV) 02/24/2023 02/24/2022 Albumin/Creatinine Ratio 06/28/2023 06/28/2022 Influenza Vaccine (FLU shot) (#1) 2023 09/08/2021, 07/29/2020 Depression Screening 12/07/2023 12/07/2022 GFR 12/22/2023 06/21/2023, 0612/2022, 03/21/2023, Additional history exists CKD PHOS USE SMARTSET 20274 03/16/202403/05, 03/29/2022, 05/13/2021, Additional history exists CKD HGB USE SMARTSET 73918 04/25/202404/25, 04/25/2023, 04/06/2023, Additional history exists Mammogram [...] Medical Devices Implanted Type Area Manager Of Applications Development Device Identifier Shelf Expiration Date Model / Serial / Lot Terumo Microvention Hydrosoft 3d Implanted:Qty: 1 on 08/16/2018 by Aime Casas MD [place] [facility] [place]: Head [employer] : INTERVENTIONA 07/05/2023 1037-8916 / [id number] / [id number] Hd Offset Hum 46x16 - [id number] Implanted:Qty: 1 on 09/28/2020 by Teresa Rehman DO at OR [facility] Left: Shoulder DJO SURGICAL 06/17/2026 520-46-31 [id number] documented as of this encounter Advance Directives [...] and were consensually agreed upon. Care Teams Splicer Apprentice Relationship Specialty Start Date End Date March, Sotero Sutton MD [address] [place] [address] PCP - General Family Medicine 12/07/22 documented as of this encounter
--- OUTSIDE RECORDS SUMMARY | 2023-11-15 04:31 | External Medical Summary | Summary of Care ---
Author Name Unknown Organization [facility] Address [address] [facility] [place] [address] Phone [phone] Care Team Providers Care Hot Mill Tin Roller Name Role Phone Sotero Pizano MD Primary Care Provider Reason for Visit * Reason Onset Date Comments [facility]: Maintenance 07/17/2023 Encounter Details Date Type Department Care Team Description 07/17/2023 Telephone [facility], [facility] [address] [facility] [place] [address] [facility], Nurse [facility] [address] [facility] [place] [address] [facility]: [...] 03/15/2022 Active Vitamin D (Ergocalciferol) 1.25 MG (86718 UT) Oral Capsule TAKE ONE CAPSULE BY [...] Miscellaneous Notes * Telephone Encounter - Regina Wheat, COLLATERAL ANALYST - 07/17/2023 12:08 PM EDT Images from the original note were not included. [facility] (Advanced Monitored Caregiving) Weight Trigger [facility] [place]: Spoke with patient for [facility] weight trigger. Patient states at first her [facility] scale wasn't working correctly but states she is feeling more short of breath than usual. Denies edema, cough, cp. States yesterday with heat/humidity did drink a little over her fluid restriction. Will forward to [facility]/care team to see about DTP initiation. Baseline [...] 2 liter fluid restriction Plan/Treatment: Route to [facility] (Remote Medical Coordinator) Education Review: Reviewed HF [...] Specialty Care Team Description 07/25/2023 [facility] Ladi Joseph RN [address] [place] [address] 07/30/2023 Office Visit Orthopedics Amy Perkins MD [address] [place] [address] 08/07/2023 Office Visit Pain Medicine Elijah Nash DO [address] [place] [address] 08/22/2023 Office Visit Neurological Surgery Aime Casas MD [address] [place] [address] 08/27/2023 Office Visit Allergy & Immunology Brennan Wasserman MD [address] [place] [address] 10/01/2023 Office Visit Cardiology Amaya Singleton PA-C [address] [place] [address] 11/23/2023 Office Visit Family Medicine Sotero Pizano MD [address] [place] [address] 11/27/2023 Office Visit Neurology Vernell Kimball PA-C [address] [place] [address] 12/10/2023 Nurse Only Ancillary Nurse Carly [facility] [address] [facility] [place] [phone] 04/08/2024 Office Visit Hematology Oncology Mario Kong MD [address] [place] [address] 06/30/2024 Imaging Radiology Health Maintenance Due Date Last Done Comments COVID-19 Vaccine (3 - Pfizer series) 04/14/2021 02/17/2021, 01/27/2021 Pneumococcal Vaccine: 65+ Years (2 - PCV) 02/24/2023 02/24/2022 Albumin/Creatinine Ratio 06/28/2023 06/28/2022 Influenza Vaccine (FLU shot) (#1) 2023 09/08/2021, 07/29/2020 Depression Screening 12/07/2023 12/07/2022 GFR 12/22/2023 06/21/2023, 0612/2022, 03/21/2023, Additional history exists CKD PHOS USE SMARTSET 86934 03/16/202403/05, 03/29/2022, 05/13/2021, Additional history exists CKD HGB USE SMARTSET 75726 04/25/202404/25, 04/25/2023, 04/06/2023, Additional history exists Mammogram [...] this encounter Medical Devices Implanted Type Area Lab Technician Device Identifier Shelf Expiration Date Model / Serial / Lot Terumo Microvention Hydrosoft 3d Implanted:Qty: 1 on 08/16/2018 by Aime Casas MD at OR [facility] N/A: Head [employer] : INTERVENTIONA 07/05/2023 1385-3987 / [id number] / [id number] Hd Offset Hum 46x16 - [id number] Implanted:Qty: 1 on 09/28/2020 by Teresa Rehman DO at OR [facility] Left: Shoulder DJO SURGICAL 06/17/2026 520-46-31 6 / / [id number] documented as of this encounter Advance Directives [...] and were consensually agreed upon. Care Teams Hot Mill Tin Roller Relationship Specialty Start Date End Date March, Sotero Sutton MD [address] [place] [address] PCP - General Family Medicine 12/07/22 documented as of this encounter
--- OUTSIDE RECORDS SUMMARY | 2023-11-15 04:32 | External Medical Summary | Summary of Care ---
Author Name Unknown Organization [facility] Address [address] [facility] [place] [address] Phone [phone] Care Team Providers Care Economic Historian Name Role Phone Sotero Pizano MD Primary Care Provider [phone] Reason for Visit * Reason Onset Date Comments [facility]: Acute 07/11/2023 Encounter Details Date Type Department Care Team Description 07/11/2023 Telephone [facility] [address] [facility] [place] [phone] [facility], Nurse [address] [place] [address] [facility]: Acute Allergies Active Allergy Reactions Severity Noted Date [...] as of this encounter (statuses as of 07/11/2023) Medications Medication Sig Dispensed Refills Start Date [...] 03/15/2022 Active Vitamin D (Ergocalciferol) 1.25 MG (30896 UT) Oral Capsule TAKE ONE CAPSULE BY [...] EVERY MORNING 90 Tablet 0 06/19/2023 Active Pregabalin 25 MG Oral Capsule (Lyrica) Take 1 capsule in the am, and 2 capsules in pm. 90 Capsule 3 06/18/2023 Active Torsemide 10 MG Oral Tablet (Demadex)Indication [...] by mouth in the morning. 0 Active documented as of this encounter (statuses as of 07/11/2023) Active Problems Problem Noted Date Iron deficiency [...] as of this encounter (statuses as of 07/11/2023) Resolved Problems Problem Noted Date Resolved Date [...] as of this encounter (statuses as of 07/11/2023) Immunizations Name Administration Dates Next Due COVID-19 [...] encounter Miscellaneous Notes * Telephone Encounter - Melvina Bose RN - 07/11/2023 2:58 PM EDT [facility] gas cutting machine operator Acute Call Date: 07/11/2023 Time: 2:58 PM Name: Kristen Garcia : 1955 Caller: Gonzalez HPI: Kristen Garcia is a 68 year old female that is calling [facility] to report: Pt has soft, moveable lump near posterior right earlobe, extending into area under jawbone. She reports area measures appx 3" x 1" W No redness or open area. She has soreness when she masticates food. Denies fever, sore throat or halitosis. Pt has been treated for Sialadenitis in the past with Clindamycin HCl 300 MG Oral Capsules. Pt feels that she has this again and is requesting ABX treatment for same. Pt reports increase in caldwell=inus drainage and drip. She feels drainage is going to the lump causing increase in size. Nursing Assessment: Patient's chief complaint for this call: Integumentary Other, describe Swelling of area under right earlobe. Pain Denies pain-- tender to touch Baseline Assessment Able to performing ADLs at baseline (walking, daily tasks, etc.): Yes Chief Complaint is related to a chronic condition: No Patient prescribed oxygen? No Patient has been ordered DME equipment (assistive devices, respiratory equipment, etc.): No Medication Reconciliation: Received flu shot this season: No Taking medication as ordered: Yes Medications ordered/taking to treat reason for call: No Heart failure symptoms: No COPD exacerbation symptoms: No Reinforcement Education: Monitor area for increase in size; Report worsening sxs to [facility] If dysphagia or being unable to swallow develops , call 911. Treatment/Plan: (need to report) Level of call: Non-Acute Recommended treatment plan: Clinical advice given over the phone Routing to [facility] for further recommendations. 24 hr FCC placed. Melvina Bose RN [facility] Intake Triage Coordinator [phone] documented in this encounter Plan of Treatment Upcoming Encounters Date Type Specialty Care Team Description 07/12/2023 Scheduled Telephone [facility], [facility] [address] [facility] [place] [address] 07/25/2023 Home Visit [facility] Ladi Joseph RN [address] [place] [phone] 07/30/2023 Office Visit Orthopedics Amy Perkins MD [address] [place] [address] 08/07/2023 Office Visit Pain Medicine Elijah Nash DO [address] [place] [address] 08/22/2023 Office Visit Neurological Surgery Aime Casas MD [address] [facility] [place] [phone] 08/27/2023 Office Visit Allergy & Immunology Brennan Wasserman MD 200 [place] [address] 10/01/2023 Office Visit Cardiology Amaya Singleton PA-C [address] [place] [address] 11/23/2023 Office Visit Family Medicine Sotero Pizano MD [address] [place] [facility] [place] [address] 11/27/2023 Office Visit Neurology Vernell Kimball PA-C [address] [place] [address] 12/10/2023 Nurse Only Ancillary Nurse Carly [facility] [address] [facility] [place] [address] 04/08/2024 Office Visit Hematology Oncology Mario Kong MD [address] [facility] [phone] 06/30/2024 Imaging Radiology Health Maintenance Due Date Last Done Comments COVID-19 Vaccine (3 - Pfizer series) 04/14/2021 02/17/2021, 01/27/2021 Pneumococcal Vaccine: 65+ Years (2 - PCV) 02/24/2023 02/24/2022 Albumin/Creatinine Ratio 06/28/2023 06/28/2022 Influenza Vaccine (FLU shot) (#1) 2023 09/08/2021, 07/29/2020 Depression Screening, Annual for Pts 12 and Over 12/07/2023 12/07/2022 GFR 12/22/2023 06/21/2023, 06/12/2022, 03/21/2023, Additional history exists CKD PHOS USE SMARTSET 52964 03/16/202403/05, 03/29/2022, 05/13/2021, Additional history exists CKD HGB USE SMARTSET 41452 04/25/202404/25, 04/25/2023, 04/06/2023, Additional history exists Mammogram [...] encounter Medical Devices Implanted Type Area Plant Science Professor Device Identifier Shelf Expiration Date Model / Serial / Lot Terumo Microvention Hydrosoft 3d Implanted:Qty: 1 on 08/16/2018 by Aime Casas MD at [place] [facility] [place]/A: Head [employer] : INTERVENTIONA 07/05/2023 1044-3004 / [id number] / [id number] Hd Offset Hum 46x16 - [id number] Implanted:Qty: 1 on 09/28/2020 by Teresa Rehman DO at OR [facility] Left: Shoulder DJO SURGICAL 06/17/2026 520-46-31 6 / / [id number] documented as of this encounter Advance Directives [...] and were consensually agreed upon. Care Teams Economic Historian Relationship Specialty Start Date End Date March, Sotero Sutton MD [address] [place] [address] PCP - General Family Medicine 12/07/22 documented as of this encounter
--- OUTSIDE RECORDS SUMMARY | 2023-11-15 04:32 | External Medical Summary | Summary of Care ---
Author Name Unknown Organization [facility] Address [address] [facility] [place] [address] Phone [phone] Care Team Providers Care Extracting Machine Operator Name Role Phone Sotero Pizano MD Primary Care Provider [phone] Reason for Visit * Reason Onset Date Comments [facility]: Maintenance 07/06/2023 Encounter Details Date Type Department Care Team Description 07/06/2023 Telephone [facility], [facility] [address] [facility], Nurse [facility] [address] [place] [address] [facility]: Maintenance Allergies Active Allergy [...] as of this encounter (statuses as of 07/06/2023) Medications Medication Sig Dispensed Refills Start Date [...] 03/15/2022 Active Vitamin D (Ergocalciferol) 1.25 MG (67058 UT) Oral Capsule TAKE ONE CAPSULE BY [...] as of this encounter (statuses as of 07/06/2023) Active Problems Problem Noted Date Iron deficiency [...] as of this encounter (statuses as of 07/06/2023) Resolved Problems Problem Noted Date Resolved Date [...] as of this encounter (statuses as of 07/06/2023) Immunizations Name Administration Dates Next Due COVID-19 [...] encounter Miscellaneous Notes * Telephone Encounter - Jessica Maria LPN - 07/06/2023 10:28 AM EDT Received a message from stating that the order for O2 concentrator was missing the LPM and they also asked for SpO2 testing and notes discussing dx. Patient only wears O2 at night. Nocturnal O2 test will need completed. Call to patient to make her aware and to ask if she was willing to do this in order to switch DME companies. Patient voices that she will do whatever she needs to do to make the switch. Giselle, please place order for nocturnal O2 test to be completed in pt home. documented in this encounter Plan of Treatment Upcoming Encounters Date Type Specialty Care Team Description 07/25/2023 Home Visit [facility] Ladi Joseph RN [address] [place] [address] 07/30/2023 Office Visit Orthopedics Amy Perkins MD [address] [place] [address] 08/07/2023 Office Visit Pain Medicine Elijah Nash DO [address] [place] [address] 08/22/2023 Office Visit Neurological Surgery Aime Casas MD [address] [place] [address] 08/27/2023 Office Visit Allergy & Immunology Brennan Wasserman MD [address] [place] [address] 10/01/2023 Office Visit Cardiology Amaya Singleton PA-C [address] [place] [address] 11/23/2023 Office Visit Family Medicine Sotero Pizano MD [address] [place] [address] 11/27/2023 Office Visit Neurology Vernell Kimball PA-C [address] [place] [address] 12/10/2023 Nurse Only [facility], Nurse [facility] [address] [place] [address] 04/08/2024 Office Visit Hematology Oncology Mario Kong MD [address] [place] [address] 06/30/2024 Imaging Radiology Health Maintenance Due Date Last Done Comments COVID-19 Vaccine (3 - Pfizer series) 04/14/2021 02/17/2021, 01/27/2021 Pneumococcal Vaccine: 65+ Years (2 - PCV) 02/24/2023 02/24/2022 Albumin/Creatinine Ratio 06/28/2023 06/28/2022 Influenza Vaccine (FLU shot) (#1) 2023 09/08/2021, 07/29/2020 Depression Screening, Annual for Pts 12 and Over 12/07/2023 12/07/2022 GFR 12/22/2023 06/21/2023, 06/0 12/2022, 03/21/2023, Additional history exists CKD PHOS USE SMARTSET 59520 03/16/202403/05, 03/29/2022, 05/13/2021, Additional history exists CKD HGB USE SMARTSET 80016 04/25/202404/25, 04/25/2023, 04/06/2023, Additional history exists Mammogram [...] this encounter Medical Devices Implanted Type Area Wire Harness Design Engineer Device Identifier Shelf Expiration Date Model / Serial / Lot Terumo Microvention Hydrosoft 3d Implanted:Qty: 1 on 08/16/2018 by Aime Casas MD at [place] [facility] [place] N/A: Head [employer] : INTERVENTIONA 07/05/2023 7850-9908 / [id number] / [id number] Hd Offset Hum 46x16 - [id number] Implanted:Qty: 1 on 09/28/2020 by Teresa Rehman DO at OR [facility] Left: Shoulder DJO SURGICAL 06/17/2026 520-46-31 6 / / [id number] documented as of this encounter Advance Directives [...] and were consensually agreed upon. Care Teams Extracting Machine Operator Relationship Specialty Start Date End Date March, Sotero Sutton MD [address] [place] [address] PCP - General Family Medicine 12/07/22 documented as of this encounter
--- OUTSIDE RECORDS SUMMARY | 2023-11-15 04:32 | External Medical Summary | Summary of Care ---
Author Name Unknown Organization [facility] Address [address] [facility] [place] [place] [address] Phone [phone] Care Team Providers Care Superintendent Local Name Role Phone Sotero Pizano MD Primary Care Provider [phone] Reason for Visit * Reason Onset Date Comments [facility]: Acute 07/11/2023 Encounter Details Date Type Department Care Team Description 07/11/2023 Telephone [facility], [facility] [address] [facility] [place] [id number] [facility], Nurse [address] [address] [facility]: Acute [...] 03/15/2022 Active Vitamin D (Ergocalciferol) 1.25 MG (36695 UT) Oral Capsule TAKE ONE CAPSULE BY [...] * Telephone Encounter - HECTOR Acosta - 07/11/2023 4:59 PM EDT Per chart review, she saw pcp 05/23 for similar reported symptoms--per note there was no palpable lump--pain neck/angle of jaw present for 3 weeks. She had neck u/s that did not show any etiology--normal R submandibular and R parotid glands. Seen by [facility] care 06/10--reported edema and tendernessaround parotid gland--noted could be dental in nature as well and given clindamycin. I think we need to determine what is causing this--has she seen a dentist for xrays? Would recommend in-person eval if possible to palpate this area, is she able to get back into pcp office? Let me know. * Telephone Encounter - Melvina Bose RN - 07/11/2023 2:58 PM EDT [facility] medical records tech Acute Call Date: 07/11/2023 Time: 2:58 PM Name: Kristen Garcia : 1955 Caller: Gonzalez HPI: Kristen Garcia is a 68 year old female that is calling [facility] Intake to report: Pt has [...] increase in size; Report worsening sxs to [facility] If dysphagia or being unable to swallow develops , call 911. Treatment/Plan: (need to report) Level of call: Non-Acute Recommended treatment plan: Clinical advice given over the phone Routing to [facility] for further recommendations. 24 hr FCC placed. Melvina Bose RN [facility] Intake Triage Coordinator [phone] documented in this encounter Plan of Treatment Upcoming Encounters Date Type Specialty Care Team Description 07/12/2023 Scheduled Telephone [facility] Aircraft Armament Mechanic, [place] [address] [address] [facility] [place] [address] 07/25/2023 Home Visit [facility] Ladi Joseph RN [address] [place] [address] 07/30/2023 Office Visit Orthopedics Amy Perkins MD [address] [place] [address] 08/07/2023 Office Visit Pain Medicine Elijah Nash DO [address] [place] [address] 08/22/2023 Office Visit Neurological Surgery Aime Casas MD [address] [place] [address] 08/27/2023 Office Visit Allergy & Immunology Brennan Wasserman MD 200 [place] [address] 10/01/2023 Office Visit Cardiology Amaya Singleton PA-C [address] [place] [address] 11/23/2023 Office Visit Family Medicine Sotero Pizano MD [address] [place] [address] 11/27/2023 Office Visit Neurology Vernell Kimblal PA-C 21 [facility] [place] [id number] 12/10/2023 Nurse Only [facility] Nurse Annual [facility]ness [address] [place] [address] 04/08/2024 Office Visit Hematology Oncology Mario Kong MD 200 [place] [address] 06/30/2024 Imaging Radiology Health Maintenance Due Date Last Done Comments COVID-19 Vaccine (3 - Pfizer series) 04/14/2021 02/17/2021, 01/27/2021 Pneumococcal Vaccine: 65+ Years (2 - PCV) 02/24/2023 02/24/2022 Albumin/Creatinine Ratio 06/28/2023 06/28/2022 Influenza Vaccine (FLU shot) (#1) 2023 09/08/2021, 07/29/2020 Depression Screening, Annual for Pts 12 and Over 12/07/2023 12/07/2022 GFR 12/22/2023 06/21/2023, 06/12/2022, 03/21/2023, Additional history exists CKD PHOS USE SMARTSET 70785 03/16/202403/05, 03/29/2022, 05/13/2021, Additional history exists CKD HGB USE SMARTSET 66075 04/25/202404/25, 04/25/2023, 04/06/2023, Additional history exists Mammogram [...] this encounter Medical Devices Implanted Type Area Photographic Equipment Assembler Device Identifier Shelf Expiration Date Model / Serial / Lot Terumo Microvention Hydrosoft 3d Implanted:Qty: 1 on 08/16/2018 by Aime Casas MD [place] [facility] [place]A: Head [employer] : INTERVENTIONA 07/05/2023 [id number] / [id number] / [id number] Hd Offset Hum 46x16 - [id number] Implanted:Qty: 1 on 09/28/2020 by Teresa Rehman, at OR [facility] Left: Shoulder DJO SURGICAL 06/17/2026 520-46-31 6 [id number] documented as of this encounter Advance Directives [...] and were consensually agreed upon. Care Teams Superintendent Local Relationship Specialty Start Date End Date March, Sotero Sutton MD [address] [facility] [place] [id number] PCP - General Family Medicine 12/07/22 documented as of this encounter
--- OUTSIDE RECORDS SUMMARY | 2023-11-15 04:32 | External Medical Summary | Summary of Care ---
Author Name Unknown Organization [facility] Address [address] [facility] [place] [address] Phone [phone] Care Team Providers Care Shoveler Name Role Phone Sotero Pizano MD Primary Care Provider [phone] Reason for Visit * Reason Onset Date Comments [facility]: Maintenance 07/06/2023 Encounter Details Date Type Department Care Team Description 07/06/2023 Telephone [facility], [facility] [address] [facility] [address] [facility], Nurse [facility] 132 [place] [address] [facility]: Maintenance Allergies Active Allergy [...] 03/15/2022 Active Vitamin D (Ergocalciferol) 1.25 MG (04322 UT) Oral Capsule TAKE ONE CAPSULE BY [...] Encounter - Jessica Maria LPN - 07/06/2023 1:55 PM EDT Order faxed to [employer] at [phone]. Patient is aware that test needs to be completed onRA. * Addendum Note - HECTOR Acosta - 07/06/2023 11:50 AM EDTAddended by: GISELLE SHERWOOD on: 07/06/2023 11:50 AM Modules accepted: Orders * Telephone Encounter - HECTOR Acosta - 07/06/2023 11:49 AM EDT Order in, please make sure she knows this needs to be on room air. * Telephone Encounter - Jessica Maria LPN [...] Joseph RN [address] [place] [address] 07/30/2023 Office Visit Orthopedics Amy Perkins MD [address] [place] [address] 08/07/2023 Office Visit Pain Medicine Elijah Nash DO [address] [place] [address] 08/22/2023 Office Visit Neurological Surgery Aime Casas MD [address] [place] [address] 08/27/2023 Office Visit Allergy & Immunology Brennan Wasserman MD [address] [place] [address] 10/01/2023 Office Visit Cardiology Amaya Singleton PA-C [address] [place] [address] 11/23/2023 Office Visit Family Medicine Sotero Pizano MD [address] [place] [address] 11/27/2023 Office Visit Neurology Vernell Kimball PA-C [address] [place] [phone] 12/10/2023 Nurse Only Ancillary Nurse Carly [facility] [address] [facility] [place] [address] 04/08/2024 Office Visit Hematology Oncology Mario [facility] [address] [facility] [address] 06/30/2024 Imaging Radiology Scheduled Orders Name Type Priority Associated Diagnoses Orde r Schedule NOCTURNAL HOME OXIMETRY (OP) Procedures Routine Nocturnal hypoxemia Ordered: 07/06/2023 Health Maintenance Due Date Last Done Comments COVID-19 Vaccine (3 - Pfizer series) 04/14/2021 02/17/2021, 01/27/2021 Pneumococcal Vaccine: 65+ Years (2 - PCV) 02/24/2023 02/24/2022 Albumin/Creatinine Ratio 06/28/2023 06/28/2022 Influenza Vaccine (FLU shot) (#1) 2023 09/08/2021, 07/29/2020 Depression Screening, Annual for Pts 12 and Over 12/07/2023 12/07/2022 GFR 12/22/2023 06/21/2023, 06/12/2022, 03/21/2023, Additional history exists CKD PHOS USE SMARTSET 08868 03/16/202403/05, 03/29/2022, 05/13/2021, Additional history exists CKD HGB USE SMARTSET 32458 04/25/202404/25, 04/25/2023, 04/06/2023, Additional history exists Mammogram [...] encounter Medical Devices Implanted Type Area Fire Extinguisher Charger Device Identifier Shelf Expiration Date Model / Serial / Lot Terumo Microvention Hydrosoft 3d Implanted:Qty: 1 on 08/16/2018 by Aime Casas MD at OR [facility] N/A: Head [employer] : INTERVENTIONA 07/05/2023 [id number] / [id number] / [id number] Hd Offset Hum 46x16 - [id number] Implanted:Qty: 1 on 09/28/2020 by Teresa Rehman DO at OR [facility] Left: Shoulder DJO SURGICAL 06/17/2026 520-46-31 6 / / [id number] documented as of this encounter Visit Diagnoses Diagnosis Nocturnal hypoxemia- Primary Hypoxemia documented in this encounter Advance Directives Latest [...] and were consensually agreed upon. Care Teams Shoveler Relationship Specialty Start Date End Date March, Sotero Sutton MD [address] [place], [place] [phone] PCP - General Family Medicine 12/07/22 documented as of this encounter
--- OUTSIDE RECORDS SUMMARY | 2023-11-15 04:32 | External Medical Summary | Summary of Care ---
Author Name Unknown Organization [facility] Address [address] [facility] [place] [address] Phone [phone] Care Team Providers Care Spinner Operator Name Role Phone Sotero Pizano MD Primary Care Provider Reason for Visit * Reason Onset Date Comments [facility]: Maintenance 07/12/2023 Encounter Details Date Type Department Care Team Description 07/12/2023 Scheduled Telephone [facility], [facility] [address] [facility] [place] [address] Coordinator, [facility] [address] [facility] [place] [address] Allergies Active Allergy Reactions Severity Noted Date [...] as of this encounter (statuses as of 07/12/2023) Medications Medication Sig Dispensed Refills Start Date [...] 03/15/2022 Active Vitamin D (Ergocalciferol) 1.25 MG (37713 UT) Oral Capsule TAKE ONE CAPSULE BY [...] as of this encounter (statuses as of 07/12/2023) Active Problems Problem Noted Date Iron deficiency [...] as of this encounter (statuses as of 07/12/2023) Resolved Problems Problem Noted Date Resolved Date [...] as of this encounter (statuses as of 07/12/2023) Immunizations Name Administration Dates Next Due COVID-19 [...] Telephone Encounter - Sheri Taylor RN - 07/12/2023 10:57 AM EDT [facility] Telephonic Nurse Follow-Up Call [facility] Subprogram: Focused Care Management (3-9 months) Follow Up Call Type: 24 hour follow up Acute issue requiring follow-up call: Other: Soft, moveable lump ear posterior R earlobe, extending into jaw area Objective: 07/03/2023 1:50 PM 06/19/2023 4:40 PM [...] LEFT VENTRICULAR EJECTION FRACTION Remote Patient Monitoring: NONE Oxygen Needs: NO supplemental oxygen needs identified DME Needs: NO DME needs identified Medications: No medication or dose adjustments made during acute episode Subjective: Condition Status: Improvement in symptoms but not at baseline Current Concerns: Spoke with patient this am. She said when she got up the lump was gone. She said if she touches thearea where it was there is a soreness. No rating and only when touched. Denies fever, ear ache, jawpain. She said she will look into finding a dentist. Will follow up tomorrow. Disposition: Follow up call scheduled for tomorrow with [facility] Institutional Nutrition Consultant Future Visits Scheduled: Future Appointments-next 60 days Date/Time Provider Specialty Dept Phone 07/12/2023 11:15 AM [facility] Institutional Nutrition Consultant [facility] [phone] 07/25/2023 4:00 PM [facility] [phone] 07/30/2023 2:00 PM (Arrive by 1:45 PM) Amy Perkins MD Orthopedics [phone] 08/07/2023 2:40 PM (Arrive by 2:25 PM) Elijah Nash, Pain Medicine [phone] 08/22/2023 3:00 PM (Arrive by 2:45 PM) Aime Casas MD Neurological Surgery [phone] 08/27/2023 3:00 PM (Arrive by 2:45 PM) Brennan Wasserman MD Allergy & Immunology [phone] 10/01/2023 2:00 PM (Arrive by 1:45 PM) Amaya Singleton PA-C Cardiology [phone] 11/23/2023 2:40 PM (Arrive by 2:25 PM) Sotero Pizano MD Family Medicine [phone] 11/27/2023 2:00 PM (Arrive by 1:45 PM) Vernell Kimball PA-C Neurology [phone] 12/10/2023 3:30 PM Nurse Annual Wellness [facility] [phone] 04/08/2024 3:15 PM (Arrive by 3:00 PM) Mario Kong MD Hematology Oncology [phone] 06/30/2024 1:30 PM (Arrive by 1:15 PM) [facility] Radiology [phone] Routed to care team Sheri Taylor RN documented in this encounter Plan of Treatment Upcoming Encounters Date Type Specialty Care Team Description 07/25/2023 Home Visit [facility] [place] Ladi Joseph RN [address] [place] [address] 07/30/2023 Office Visit Orthopedics Amy Perkins MD [address] [place] [address] 08/07/2023 Office Visit Pain Medicine Elijah Nash DO [address] [place] [address] 08/22/2023 Office Visit Neurological Surgery Aime Casas MD [address] [place] [address] 08/27/2023 Office Visit Allergy & Immunology Brennan Wasserman MD [address] [place] [address] 10/01/2023 Office Visit Cardiology Amaya Singleton PA-C [address] [place] [address] 11/23/2023 Office Visit Family Medicine Sotero Pizano MD [address] [place] [address] 11/27/2023 Office Visit Neurology Vernell Kimball PA-C [address] [facility] [place] [address] 12/10/2023 Nurse Only Ancillary Nurse Carly [facility] [address] [facility] [place] [address] 04/08/2024 Office Visit Hematology Oncology Mario Kong MD 200 [place] [address] 06/30/2024 Imaging Radiology Health Maintenance Due Date Last Done Comments COVID-19 Vaccine (3 - Pfizer series) 04/14/2021 02/17/2021, 01/27/2021 Pneumococcal Vaccine: 65+ Years (2 - PCV) 02/24/2023 02/24/2022 Albumin/Creatinine Ratio 06/28/2023 06/28/2022 Influenza Vaccine (FLU shot) (#1) 2023 09/08/2021, 07/29/2020 Depression Screening, Annual for Pts 12 and Over 12/07/2023 12/07/2022 GFR 12/22/2023 06/21/2023, 0612/2022, 03/21/2023, Additional history exists CKD PHOS USE SMARTSET 20103 03/16/202403/05, 03/29/2022, 05/13/2021, Additional history exists CKD HGB USE SMARTSET 44073 04/25/202404/25, 04/25/2023, 04/06/2023, Additional history exists Mammogram [...] this encounter Medical Devices Implanted Type Area Parenting Skills Instructor Device Identifier Shelf Expiration Date Model / Serial / Lot Terumo Microvention Hydrosoft 3d Implanted:Qty: 1 on 08/16/2018 by Aime Casas MD at [place] [facility] N/A: Head [employer] : INTERVENTIONA 07/05/2023 [id number] / [id number] / [id number] Hd Offset Hum 46x16 - [id number] Implanted:Qty: 1 on 09/28/2020 by Teresa Rehman DO at OR [facility] Left: Shoulder DJO SURGICAL 06/17/2026 520-46-31 6 / / [id number] documented as of this encounter Advance Directives Latest Code Status on File Code Status Date Activated Date Inactivated Comments Full Code 09/28/2020 10:40 AM 09/29/2020 7:12 PM Th is order reflects the patients wishes and were consensually agreed upon. Code Status History Code Status Date Activated Date Inactivated Comments Full Code 08/16/2018 2:33 PM 08/18/2018 4:17 PM Th is order reflects the patients wishes and were consensually agreed upon. Question Answer Comments Discussion of Advance Directives occurred with: Not Discussed Full Code 07/15/2018 7:16 AM 07/15/2018 4:32 PM This order reflects the patients wishes and were consensually agreed upon. Care Teams Spinner Operator Relationship Specialty Start Date End Date March, Sotero Sutton MD [address] [place] [address] PCP - General Family Medicine 12/07/22 documented as of this encounter
--- OUTSIDE RECORDS SUMMARY | 2023-11-15 04:32 | External Medical Summary | Summary of Care ---
Author Name Unknown Organization [facility] Address [address] [facility] [place] [place] [address] Phone [phone] Care Team Providers Care Laboratory Equipment Cleaner Name Role Phone Sotero Pizano MD Primary Care Provider [phone] Reason for Visit * Reason Onset Date Comments [facility]: Acute 07/11/2023 Encounter Details Date Type Department Care Team Description 07/11/2023 Telephone [facility], [facility] [address] [facility] [place] [phone] [facility], Nurse [address] [address] [facility]: Acute [...] 03/15/2022 Active Vitamin D (Ergocalciferol) 1.25 MG (96415 UT) Oral Capsule TAKE ONE CAPSULE BY [...] Telephone Encounter - Xu Donaldson PA-C - 07/11/2023 5:12 PM EDT Giselle I agree. Start with dentistry for imaging /review and most of the dentist I have seen can/will palpate these areas. If this does not yield anything, maybe oral surgery as I believe they will probe gland ducts * Telephone Encounter - HECTOR Acosta - 07/11/2023 4:59 PM EDT Per chart review, she saw pcp 05/23 for similar reported symptoms--per note there was no palpable lump--pain neck/angle of jaw present for 3 weeks. She had neck u/s that did not show any etiology--normal R submandibular and R parotid glands. Seen by [facility] care 06/10--reported edema and tendernessaround parotid gland--noted [...] Bose RN - 07/11/2023 2:58 PM EDT [facility] instrumentation chemist Acute Call Date: 07/11/2023 Time: 2:58 PM Name: Kristen Garcia : 1955 Caller: Gonzalez HPI: Kristen Garcia is a 68 year old female that is calling [facility] Intake to report: Pt has [...] increase in size; Report worsening sxs to [facility] If dysphagia or being unable to swallow develops , call 911. Treatment/Plan: (need to report) Level of call: Non-Acute Recommended treatment plan: Clinical advice given over the phone Routing to [facility] for further recommendations. 24 hr FCC placed. Melvina Bose RN [facility] Intake Triage Coordinator [phone] documented in this encounter Plan of Treatment Upcoming Encounters Date Type Specialty Care Team Description 07/12/2023 Scheduled Telephone [facility]'[employer]ide, [place] [address] [address] [facility] [place] [address] 07/25/2023 Home Visit [facility] Ladi Joseph RN [address] [place] [address] 07/30/2023 Office Visit Orthopedics Amy Perkins MD [address] [place] [address] 08/07/2023 Office Visit Pain Medicine Elijah Nash DO [address] [place] [address] 08/22/2023 Office Visit Neurological Surgery Aime Casas MD [address] [place], [place] [phone] 08/27/2023 Office Visit Allergy & Immunology Brennan Wasserman MD 200 [facility] [place] [address] 10/01/2023 Office Visit Cardiology Amaya Singleton PA-C [address] [place] [address] 11/23/2023 Office Visit Family Medicine Sotero Pizano MD [address] [place] [address] 11/27/2023 Office Visit Neurology Vernell Kimball PA-C [address] [facility] [place] [address] 12/10/2023 [facility] [address] [place] [address] 04/08/2024 Office Visit Hematology Oncology Mario Kong MD [address] [place] [address] 06/30/2024 Imaging Radiology Health Maintenance Due Date Last Done Comments COVID-19 Vaccine (3 - Pfizer series) 04/14/2021 02/17/2021, 01/27/2021 Pneumococcal Vaccine: 65+ Years (2 - PCV) 02/24/2023 02/24/2022 Albumin/Creatinine Ratio 06/28/2023 06/28/2022 Influenza Vaccine (FLU shot) (#1) 2023 09/08/2021, 07/29/2020 Depression Screening, Annual for Pts 12 and Over 12/07/2023 12/07/2022 GFR 12/22/2023 06/21/2023, 12/2022, 03/21/2023, Additional history exists CKD PHOS USE SMARTSET 13356 03/16/202403/05, 03/29/2022, 05/13/2021, Additional history exists CKD HGB USE SMARTSET 19933 04/25/202404/25, 04/25/2023, 04/06/2023, Additional history exists Mammogram [...] this encounter Medical Devices Implanted Type Area Customer Success Associate Device Identifier Shelf Expiration Date Model / Serial / Lot Terumo Microvention Hydrosoft 3d Implanted:Qty: 1 on 08/16/2018 by Aime Casas MD at OR [facility] N/A: Head [employer] : INTERVENTIONA 07/05/2023 [id number] / [id number] / [id number] Hd Offset Hum 46x16 - [id number] Implanted:Qty: 1 on 09/28/2020 by Teresa Rehman DO at OR [facility] Left: Shoulder DJO SURGICAL 06/17/2026 520-46-31 6 / / [id number] documented as of this encounter Advance Directives [...] and were consensually agreed upon. Care Teams Laboratory Equipment Cleaner Relationship Specialty Start Date End Date March, [place] [address] PCP - General Family Medicine 12/07/22 documented as of this encounter
--- OUTSIDE RECORDS SUMMARY | 2023-11-15 04:32 | External Medical Summary | Summary of Care ---
Author Name Unknown Organization [facility] Address [address] [facility] [place] [address] Phone [phone] Care Team Providers Care Set Up Mechanic Heading Machines Name Role Phone Sotero Pizano MD Primary Care Provider [phone] Reason for Visit * Reason Onset Date Comments [facility]: Maintenance 07/06/2023 Encounter Details Date Type Department Care Team Description 07/06/2023 Telephone [facility], [facility] [address] [facility] [address] [facility], Nurse [facility] [address] [place] [address] [facility]: Maintenance Allergies Active Allergy [...] 03/15/2022 Active Vitamin D (Ergocalciferol) 1.25 MG (69546 UT) Oral Capsule TAKE ONE CAPSULE BY [...] Home Ladi Joseph RN [address] [place] [address] 07/30/2023 Office Visit Orthopedics Amy Perkins MD [address] [place] [address] 08/07/2023 Office Visit Pain Medicine Elijah Nash DO [address] [place] [address] 08/22/2023 Office Visit Neurological Surgery Aime Casas MD [address] [place], [place] [address] 08/27/2023 Office Visit Allergy & Immunology Brennan Wasserman MD [address] [place] [address] 10/01/2023 Office Visit Cardiology Amaya Singleton PA-C [address] [place] [address] 11/23/2023 Office Visit Family Medicine Sotero Pizano MD [address] [place] [address] 11/27/2023 Office Visit Neurology Vernell Kimball PA-C [address] [place] [address] 12/10/2023 Nurse Only Pat[facility]urse mica [facility] [address] [place], [place] [address] 04/08/2024 Office Visit Hematology Oncology Mario Kong MD [address] [place] [address] 06/30/2024 Imaging Radiology Scheduled Orders Name Type [...] Additional history exists CKD PHOS USE SMARTSET 69930 03/16/202403/05, 03/29/2022, 05/13/2021, Additional history exists CKD HGB USE SMARTSET 71027 04/25/202404/25, 04/25/2023, 04/06/2023, Additional history exists Mammogram [...] this encounter Medical Devices Implanted Type Area Vice Squad Police Officer Device Identifier Shelf Expiration Date Model / Serial / Lot Terumo Microvention Hydrosoft 3d Implanted:Qty: 1 on 08/16/2018 by Aime Casas MD at OR [facility] N/A: Head [employer] : INTERVENTIONA 07/05/2023 3591-7516 / [id number] / [id number] Hd Offset Hum 46x16 - [id number] Implanted:Qty: 1 on 09/28/2020 by Teresa Rehman DO at OR [facility] Left: Shoulder DJO SURGICAL 06/17/2026 520-46-31 6 [id number] documented as of this encounter Visit Diagnoses [...] and were consensually agreed upon. Care Teams Set Up Mechanic Heading Machines Relationship Specialty Start Date End Date March, Sotero Sutton MD [facility] [place] [address] PCP - General Family Medicine 12/07/22 documented as of this encounter
--- OUTSIDE RECORDS SUMMARY | 2023-11-15 04:32 | External Medical Summary | Summary of Care ---
Author Name Unknown Organization [facility] Address [address] [facility] [address] [place] [address] Phone [phone] Care Team Providers Care Credit Collections Rep Name Role Phone Sotero Pizano MD Primary Care Provider [phone] Reason for Visit * Reason Onset Date Comments [facility]: Acute 07/11/2023 Encounter Details Date Type Department Care Team Description 07/11/2023 Telephone [facility], [facility] [address] [facility] [place] [phone] [facility], Nurse [address] [address] [facility]: Acute [...] 03/15/2022 Active Vitamin D (Ergocalciferol) 1.25 MG (14207 UT) Oral Capsule TAKE ONE CAPSULE BY [...] encounter Miscellaneous Notes * Telephone Encounter - Chanda Medina RN - 07/11/2023 5:35 PM EDT Call placed to the pt. Made aware of [facility] and [facility] recommendations to schedule appt with dentistry. Pt not active with a dentist at this time. Will try to establish with a dentist to have xrays completed. * Telephone Encounter - Xu Donaldson PA-C [...] submandibular and R parotid glands. Seen by [facility] 06/10--reported edema and tendernessaround parotid gland--noted [...] Bose RN - 07/11/2023 2:58 PM EDT [facility] technical sales director Acute Call Date: 07/11/2023 Time: 2:58 PM Name: Kristen Garcia : 1955 Caller: Gonzalez HPI: Kristen Garcia is a 68 year old female that is calling [facility] Intake to report: Pt has [...] increase in size; Report worsening sxs to [facility] If dysphagia or being unable to swallow develops , call 911. Treatment/Plan: (need to report) Level of call: Non-Acute Recommended treatment plan: Clinical advice given over the phone Routing to [facility] for further recommendations. 24 hr FCC placed. Melvina Bose RN [facility] Intake Triage Coordinator [phone] documented in this encounter Plan of Treatment Upcoming Encounters Date Type Specialty Care Team Description 07/12/2023 Scheduled Telephone [facility], [facility] [address] [facility] [place] [address] 07/25/2023 Home Visit [facility] Ladi Joseph RN [address] [place] [address] 07/30/2023 Office Visit Orthopedics Amy Perkins MD [address] [place] [address] 08/07/2023 Office Visit Pain Medicine Elijah Nash DO [address] [place] [address] 08/22/2023 Office Visit Neurological Surgery Aime Casas MD [address] [place] [address] 08/27/2023 Office Visit Allergy & Immunology Brennan Wasserman MD [address] [place] [address] 10/01/2023 Office Visit Cardiology Amaya Singleton PAJeimyC [address] [place] [address] 11/23/2023 Office Visit Family Medicine Sotero Pizano MD [facility] [place] [address] 11/27/2023 Office Visit Neurology Vernell Kimball PA-C [address] [place] [address] 12/10/2023 Nurse Only Patito Carroll Nurse [facility] [address] [facility] [place] [address] 04/08/2024 Office Visit Hematology Oncology [facility] [address] [facility] [address] 06/30/2024 Imaging Radiology Health Maintenance Due Date Last Done Comments COVID-19 Vaccine (3 - Pfizer series) 04/14/2021 02/17/2021, 01/27/2021 Pneumococcal Vaccine: 65+ Years (2 - PCV) 02/24/2023 02/24/2022 Albumin/Creatinine Ratio 06/28/2023 06/28/2022 Influenza Vaccine (FLU shot) (#1) 2023 09/08/2021, 07/29/2020 Depression Screening, Annual for Pts 12 and Over 12/07/2023 12/07/2022 GFR 12/22/2023 06/21/2023, 06/12/2022, 03/21/2023, Additional history exists CKD PHOS USE SMARTSET 34878 03/16/202403/05, 03/29/2022, 05/13/2021, Additional history exists CKD HGB USE SMARTSET 85458 04/25/202404/25, 04/25/2023, 04/06/2023, Additional history exists Mammogram [...] this encounter Medical Devices Implanted Type Area Specialty Food Products Supervisor Device Identifier Shelf Expiration Date Model / Serial / Lot Terumo Microvention Hydrosoft 3d Implanted:Qty: 1 on 08/16/2018 by Aime Casas MD at OR [facility] N/A: Head [employer] : INTERVENTIONA 07/05/2023 1566-6093 / [id number] / [id number] Hd Offset Hum 46x16 - [id number] Implanted:Qty: 1 on 09/28/2020 by Teresa Rehman DO at OR [facility] Left: Shoulder DJO SURGICAL 06/17/2026 520-46-31 6 / / [id number] documented as of this encounter Advance Directives [...] and were consensually agreed upon. Care Teams Credit Collections Rep Relationship Specialty Start Date End Date March, Sotero Sutton MD [address] [place] [facility] [place] [address] PCP - General Family Medicine 12/07/22 documented as of this encounter
--- OUTSIDE RECORDS SUMMARY | 2023-11-15 04:33 | External Medical Summary | Summary of Care ---
Author Name Unknown Organization [facility] Address [address] [facility] [place] [address] Phone [phone] Care Team Providers Care Rubber Goods Inspector Tester Name Role Phone Sotero Pizano MD Primary Care Provider [phone] Reason for Visit * Reason Onset Date Comments [facility]: Maintenance 07/03/2023 Encounter Details Date Type Department Care Team Description 07/03/2023 Telephone [facility], [facility] [address] [address] [place] [address] Ladi Joseph RN [address] [place] [address] [facility]: Maintenance Allergies Active Allergy [...] as of this encounter (statuses as of 07/05/2023) Medications Medication Sig Dispensed Refills Start Date [...] 03/15/2022 Active Vitamin D (Ergocalciferol) 1.25 MG (54152 UT) Oral Capsule TAKE ONE CAPSULE BY [...] as of this encounter (statuses as of 07/05/2023) Active Problems Problem Noted Date Iron deficiency [...] as of this encounter (statuses as of 07/05/2023) Resolved Problems Problem Noted Date Resolved Date [...] as of this encounter (statuses as of 07/05/2023) Immunizations Name Administration Dates Next Due COVID-19 [...] Telephone Encounter - Jessica Maria LPN - 07/05/2023 11:25 AM EDT Received call from Kristen at [employer] [facility] about oxygen concentrator. Kristen states that a new order for O2 concentrator will need placed in order for patient to receive a concentrator [facility] [employer] [facility]. -Giselle, can you please place a new order so it can be faxed to ? Thank you * Telephone Encounter - Jessica Maria LPN - 07/03/2023 2:38 PM EDT [employer] is no longer in business; they are now [facility]. [facility] but was unable to get through at this time d/t high call volumes. Left with name, company name and callback number for a rep to return call. * Telephone Encounter - Ladi Joseph RN - 07/03/2023 2:07 PM EDT Pt currently has oxygen concentrator from [employer]. She gets her CPAP from [facility] and also 's supplies come from [facility]. She is requesting that the oxygen concentrator be switched over to [facility]. She hasn't been able to reach [employer] and now they are sending her bills. She is also concerned that they have never been out to service her machine and do not send her new tubing. Can you please assist in this? Thank you! documented in this encounter Plan of Treatment Upcoming Encounters Date Type Specialty Care Team Description 07/25/2023 Home Visit [facility] Ladi Joseph RN [address] [place] [address] 07/30/2023 Office Visit Orthopedics Amy Perkins MD [address] [place] [address] 08/07/2023 Office Visit Pain Medicine Elijah Nash DO [address] [place] [address] 08/22/2023 Office Visit Neurological Surgery Aime Casas MD [address] [place] [address] 08/27/2023 Office Visit Allergy & Immunology Brennan Wasserman MD [address] [place] [address] 10/01/2023 Office Visit Cardiology Amaya Singleton PA-C [address] [place] [address] 11/23/2023 Office Visit Family Medicine Sotero Pizano MD [address] [place] [address] 11/27/2023 Office Visit Neurology Vernell Kimball PA-C [address] [place] [id number] 12/10/2023 Nurse Only Ancillary Nurse Carly [facility] [address] [place] [address] 04/08/2024 Office Visit [facility]ematology Oncology [facility] [address] 06/30/2024 Imaging Radiology Health Maintenance Due Date Last Done Comments COVID-19 Vaccine (3 - Pfizer series) 04/14/2021 02/17/2021, 01/27/2021 Pneumococcal Vaccine: 65+ Years (2 - PCV) 02/24/2023 02/24/2022 Albumin/Creatinine Ratio 06/28/2023 06/28/2022 Influenza Vaccine (FLU shot) (#1) 2023 09/08/2021, 07/29/2020 Depression Screening, Annual for Pts 12 and Over 12/07/2023 12/07/2022 GFR 12/22/2023 06/21/2023, 0612/2022, 03/21/2023, Additional history exists CKD PHOS USE SMARTSET 54972 03/16/202403/05, 03/29/2022, 05/13/2021, Additional history exists CKD HGB USE SMARTSET 78800 04/25/202404/25, 04/25/2023, 04/06/2023, Additional history exists Mammogram [...] this encounter Medical Devices Implanted Type Area Home Care Coordinator Device Identifier Shelf Expiration Date Model / Serial / Lot Terumo Microvention Hydrosoft 3d Implanted:Qty: 1 on 08/16/2018 by Aime Casas MD [place] [facility] [place]: Head [employer] : INTERVENTIONA 07/05/2023 [id number] / [id number] / [id number] Hd Offset Hum 46x16 - [id number] Implanted:Qty: 1 on 09/28/2020 by Teresa Rehman DO at OR [facility] Left: Shoulder [employer]O SURGICAL 06/17/2026 520-46-31 6 / / [id number] documented as of this encounter Advance Directives [...] and were consensually agreed upon. Care Teams Rubber Goods Inspector Tester Relationship Specialty Start Date End Date March, Sotero Sutton MD [address] [place] [address] PCP - General Family Medicine 12/07/22 documented as of this encounter
--- OUTSIDE RECORDS SUMMARY | 2023-11-15 04:33 | External Medical Summary | Summary of Care ---
Author Name Unknown Organization [facility] Address [address] [facility] [place] [address] Phone [phone] Care Team Providers Care Barrel Polisher Inside Name Role Phone Sotero Pizano MD Primary Care Provider [phone] Reason for Visit * Reason Onset Date Comments [facility]: Maintenance 07/03/2023 Encounter Details Date Type Department Care Team Description 07/03/2023 Telephone [facility], [facility] [address] [place] [address] Ladi Joseph RN [address] [place] [address] [facility]: Maintenance Allergies Active Allergy [...] 03/15/2022 Active Vitamin D (Ergocalciferol) 1.25 MG (16550 UT) Oral Capsule TAKE ONE CAPSULE BY [...] * Addendum Note - HECTOR Acosta - 07/05/2023 12:12 PM EDTAddended by: GISELLE SHERWOOD on: 07/05/2023 12:12 PM Modules accepted: Orders * Telephone Encounter - HECTOR Acosta - 07/05/2023 12:12 PM EDT DME order placed. * Telephone Encounter - Jessica Maria LPN - 07/05/2023 11:25 AM EDT Received call from Kristen at [facility] about oxygen concentrator. Kirsten states that a new order for O2 concentrator will need placed in order for patient to receive a concentrator from [facility]. -Giselle, can you please place a new order so it can be faxed to ? Thank you * Telephone Encounter - Jessica Maria LPN - 07/03/2023 2:38 PM EDT [employer] is no longer in business; they are now [email or web address]. [facility] but was unable to get through at this time d/t high call volumes. Left VM with name, company name and callback number for a rep to return call. * Telephone Encounter - Ladi Joseph RN - 07/03/2023 2:07 PM EDT Pt currently has oxygen concentrator from [employer]. She gets her CPAP from [facility] and also 's supplies come from [facility]. She is requesting that the oxygen concentrator be switched over to [facility]. She hasn't been able to reach [employer] and now they are sending her bills. [...] Joseph RN [address] [place] [address] 07/30/2023 Office Visit Orthopedics Amy Perkins MD [address] [place] [address] 08/07/2023 Office Visit Pain Medicine Elijah Nash DO [address] [place] [address] 08/22/2023 Office Visit Neurological Surgery Aime Casas MD [address] [place] [address] 08/27/2023 Office Visit Allergy & Immunology Brennan Wasserman MD [address] [place] [address] 10/01/2023 Office Visit Cardiology Amaya Singleton PAJeimyC [address] [place] [address] 11/23/2023 Office Visit Family Medicine Sotero Pizano MD [address] [place] [address] 11/27/2023 Office Visit Neurology Vernell Kimball PA-C [address] [place] [address] 12/10/2023 Nurse Only [facility] Nurse [facility] [address] [place] [facility] [place] [address] 04/08/2024 Office Visit Hematology Oncology Mario Knog MD [address] [facility] [address] 06/30/2024 Imaging Radiology Health Maintenance Due Date Last Done Comments COVID-19 Vaccine (3 - Pfizer series) 04/14/2021 02/17/2021, 01/27/2021 Pneumococcal Vaccine: 65+ Years (2 - PCV) 02/24/2023 02/24/2022 Albumin/Creatinine Ratio 06/28/2023 06/28/2022 Influenza Vaccine (FLU shot) (#1) 2023 09/08/2021, 07/29/2020 Depression Screening, Annual for Pts 12 and Over 12/07/2023 12/07/2022 GFR 12/22/2023 06/21/2023, 06/12/2022, 03/21/2023, Additional history exists CKD PHOS USE SMARTSET 74758 03/16/202403/05, 03/29/2022, 05/13/2021, Additional history exists CKD HGB USE SMARTSET 53108 04/25/202404/25, 04/25/2023, 04/06/2023, Additional history exists Mammogram [...] this encounter Medical Devices Implanted Type Area Technical Sales Specialist Device Identifier Shelf Expiration Date Model / Serial / Lot Terumo Microvention Hydrosoft 3d Implanted:Qty: 1 on 08/16/2018 by Aime Casas MD at [place] [facility] [place]/A: Head [employer] : INTERVENTIONA 07/05/2023 7556-8793 / [id number] / [id number] Hd Offset Hum 46x16 - [id number] Implanted:Qty: 1 on 09/28/2020 by Teresa Rehman DO at OR [facility] Left: Shoulder DJO SURGICAL 06/17/2026 520-46-31 6 / / [id number] documented as of this encounter Visit Diagnoses [...] and were consensually agreed upon. Care Teams Barrel Polisher Inside Relationship Specialty Start Date End Date March, Sotero Sutton MD [address] [facility] [place] [id number] PCP - General Family Medicine 12/07/22 documented as of this encounter
--- OUTSIDE RECORDS SUMMARY | 2023-11-15 04:33 | External Medical Summary | Summary of Care ---
Author Name Unknown Organization [facility] Address [address] [facility] [place] [address] Phone [phone] Care Team Providers Care Test Deskman Name Role Phone Sotero Pizano MD Primary Care Provider [phone] Reason for Visit * Reason Comments [facility]: Maintenance Encounter Details Date Type Department Care Team Description 07/03/2023 Home Visit [facility], [facility] [address] [place] [address] Ladi Joseph RN [address] [place] [address] Allergies Active Allergy Reactions Severity Noted Date [...] as of this encounter (statuses as of 07/03/2023) Medications Medication Sig Dispensed Refills Start Date [...] 03/15/2022 Active Vitamin D (Ergocalciferol) 1.25 MG (80201 UT) Oral Capsule TAKE ONE CAPSULE BY [...] as of this encounter (statuses as of 07/03/2023) Active Problems Problem Noted Date Iron deficiency [...] as of this encounter (statuses as of 07/03/2023) Resolved Problems Problem Noted Date Resolved Date [...] as of this encounter (statuses as of 07/03/2023) Immunizations Name Administration Dates Next Due COVID-19 [...] Sign Reading Time Taken Comments Blood Pressure 126/62 07/03/2023 1:50 PM EDT Pulse 70 07/03/2023 1:50 PM EDT Temperature 36.1 C (97 F) 07/03/2023 1:50 PM EDT Respiratory Rate 18 07/03/2023 1:50 PM EDT Oxygen Saturation 98% 07/03/2023 1:50 PM EDT Inhaled Oxygen Concentration - - Weight 114.7 kg (252 lb 12.8 oz) 07/03/2023 1:50 PM EDT Height - - Body Mass Index 41.43 06/10/2023 3:41 PM EDT documented in this [...] of this encounter Progress Notes * Ladi Joseph, JEREMY - 07/03/2023 1:02 PM EDT Images from the original note were not included. [facility] Contract Paralegal Visit Date: 07/03/2023 Time: 1:02 PM Name: Kristen Garcia : 1955 Current Concerns: Pt is seen for return RNCM visit Wts have been trending down Edema of LE is at baseline Pt reports the lyrica has been helping but still having pain - requesting if it could be increased one more time and feels that would be very beneficial TE sent to Vernell Kimball regarding this Pt reports that she has been taking her meds later in the day, right after lunch and feels that sheis feeling better overall because of this Overall has been feeling pretty well Denies falls Does continue to have issues with constipation Going to add Senna to daily regimen - added to med list Physical Exam: BP 126/62 | Pulse 70 | Temp 36.1 C (97 F) | Resp 18 | Wt 114.7 kg (252 lb 12.8 oz) | SpO2 98% |BMI 41.43 kg/m | BSA 2.3 m Pain 0 Physical Exam Cardiovascular: Rate and Rhythm: Normal rate and regular rhythm. Pulses: Normal pulses. Heart sounds: Normal heart sounds. Pulmonary: Effort: Pulmonary effort is normal. Breath sounds: Normal breath sounds. Abdominal: General: Bowel sounds are normal. Palpations: Abdomen is soft. Musculoskeletal: Right lower leg: Edema present. Left lower leg: Edema present. Skin: General: Skin is warm and dry. Neurological: Mental Status: She is alert and oriented to person, place, and time. Problems/Symptoms: Review of Systems Constitutional: Negative. HENT: Negative. Eyes: Negative. Respiratory: Positive for shortness of breath (JONES - at baseline). Cardiovascular: Positive for leg swelling. Gastrointestinal: Positive for constipation. Endocrine: Negative. Genitourinary: Negative. Musculoskeletal: Positive for back pain. Skin: Negative. Neurological: Positive for numbness (neuropathy). Psychiatric/Behavioral: Negative. Medication Reconciliation: (See medication list) Does patient take medications as ordered: Yes Patient Well Being: PHQ2/9: No questionnaires available. No change in living situation No falls [facility] Completed this Visit: No. Routine visit [...] prescribed Duoneb qid prn proventil inhaler prn Elevate LE as much as possible Weigh self daily in am via [facility] Low Na diet Add senna 8.6mg at least daily for constipation DTP on file per cardiology Home Interventions Provided: Home Intervention: Other; evaluation Consulted PCP/Specialist Reinforced current Plan of Care, including self-management and medication regimen Patient's 'Red Flags': Wt gain of 3 lbs in 24 hrs or 5 lbs in one week SOB with min exertion Increased anxiety Patient Needs to Remember: Call [facility] at with any new or worsening [...] & schedule home visit with care steam and power supervisor(s)as indicated. Provider is in agreement with Plan of Care: Yes Scheduled to follow up with patient in 3-4 weeks. Ladi Joseph RN 07/03/2023 1:02 PM documented in this encounter Plan of Treatment Upcoming Encounters Date Type Specialty Care Team Description 07/25/2023 [facility] Visit [facility] Ladi Joseph RN [address] [place] [address] 07/30/2023 Office Visit Orthopedics Amy Perkins MD [address] [place] [address] 08/07/2023 Office Visit Pain Medicine Elijah Nash DO [address] [place] [address] 08/22/2023 Office Visit Neurological Surgery Aime Casas MD [address] [place] [address] 08/27/2023 Office Visit Allergy & Immunology Brennan Wasserman MD [address] [place] [address] 10/01/2023 Office Visit Cardiology Amaya Singleton PA-C [address] [place] [address] 11/23/2023 Office Visit Family Medicine Sotero Pizano MD [address] [place] [address] 11/27/2023 Office Visit Neurology Vernell Kimball PA-C [address] [place] [address] 12/10/2023 Nurse Only [place]illary [place], Nurse [facility] [address] [place] [address] 04/08/2024 Office Visit Hematology Oncology Mario Kong MD [address] [place], [place] [phone] 06/30/2024 Imaging Radiology Health Maintenance Due Date Last Done Comments COVID-19 Vaccine (3 - Pfizer series) 04/14/2021 02/17/2021, 01/27/2021 Pneumococcal Vaccine: 65+ Years (2 - PCV) 02/24/2023 02/24/2022 Albumin/Creatinine Ratio 06/28/2023 06/28/2022 Influenza Vaccine (FLU shot) (#1) 2023 09/08/2021, 07/29/2020 Depression Screening, Annual for Pts 12 and Over 12/07/2023 12/07/2022 GFR 12/22/2023 06/21/2023, 0612/2022, 03/21/2023, Additional history exists CKD PHOS USE SMARTSET 41905 03/16/202403/05, 03/29/2022, 05/13/2021, Additional history exists CKD HGB USE SMARTSET 52181 04/25/202404/25, 04/25/2023, 04/06/2023, Additional history exists Mammogram [...] this encounter Medical Devices Implanted Type Area Director Of Cardiac Cath Lab Device Identifier Shelf Expiration Date Model / Serial / Lot Terumo Microvention Hydrosoft 3d Implanted:Qty: 1 on 08/16/2018 by Aime Casas MD at [place] [facility]/A: Head [employer] : INTERVENTIONA 07/05/2023 [id number] / [id number] / [id number] Hd Offset Hum 46x16 - [id number] Implanted:Qty: 1 on 09/28/2020 by Teresa Rehman DO at OR [facility] Left: Shoulder [employer]O SURGICAL 06/17/2026 520-46-31 6 / / [id number] documented as of this encounter Advance Directives [...] and were consensually agreed upon. Care Teams Test Deskman Relationship Specialty Start Date End Date March, Sotero Sutton MD [address] [place] [address] PCP - General Family Medicine 12/07/22 documented as of this encounter
--- OUTSIDE RECORDS SUMMARY | 2023-11-15 04:33 | External Medical Summary | Summary of Care ---
Author Name Unknown Organization [facility] Address [address] [facility] [place] [address] Phone [phone] Care Team Providers Care Hydro Operator Name Role Phone Sotero Pizano MD Primary Care Provider [phone] Reason for Visit * Reason Onset Date Comments [facility]: Maintenance 07/03/2023 Encounter Details Date Type Department Care Team Description 07/03/2023 Telephone [facility], [facility] [address] [place] [address] Ladi Joseph RN [address] [place] [address] [facility]: Maintenance Allergies Active Allergy [...] 03/15/2022 Active Vitamin D (Ergocalciferol) 1.25 MG (19906 UT) Oral Capsule TAKE ONE CAPSULE BY [...] Encounter - Jessica Maria LPN - 07/06/2023 9:18 AM EDT Order sent to [employer] via online portal. Contacted patient and made her aware that change will take place and that [facility] will reach out to her. Provided her with Toll Free number for her current DME supplier so she can reach out to them to pepper picker current concentrator after her new one is delivered. Patient thankful for call and is aware to call [facility] with any urgent, non-emergent needs. * Addendum Note - HECTOR Acosta - 07/05/2023 12:12 PM EDTAddended by: GISELLE SHERWOOD on: 07/05/2023 12:12 PM Modules accepted: Orders * Telephone Encounter - HECTOR Acosta - 07/05/2023 12:12 PM EDT DME order placed. * Telephone Encounter - Jessica Maria LPN - 07/05/2023 11:25 AM EDT Received call from Kristen at [employer] about oxygen concentrator. Kristen states that a new order for O2 concentrator will need placed in order for patient to receive a concentrator [facility]. -Giselle, can you please place a new order so it can be faxed to ? Thank you * Telephone Encounter - Jessica Maria LPN - 07/03/2023 2:38 PM EDT [employer] is no longer in business; they are now [employer]. Attempted to call [employer] to have DME supplier switched to [facility] but was unable to get through at this time d/t high call volumes. Left VM with name, company name and callback number for a rep to return call. * Telephone Encounter - Ladi Joseph RN - 07/03/2023 2:07 PM EDT Pt currently has oxygen concentrator from [employer]. She gets her CPAP from [facility] and also 's supplies come from [facility]. She is requesting that the oxygen concentrator be switched over to [facility]. She hasn't been able to reach [employer] and now they are sending her bills. She is also concerned that they have never been out to service her machine and do not send her new tubing. Can you please assist in this? Thank you! documented in this encounter Plan of Treatment Upcoming Encounters Date Type Specialty Care Team Description 07/25/2023 Home Visit [facility] Ladi Joseph RN [address] [place] [address] 07/30/2023 Office Visit Orthopedics Amy Perkins MD [address] [place] [address] 08/07/2023 Office Visit Pain Medicine CouElijah lamas DO [address] [place] [address] 08/22/2023 Office Visit Neurological Surgery Aime Casas MD [address] [place] [address] 08/27/2023 Office Visit Allergy & Immunology Brennan Wasserman MD [address] [place] [address] 10/01/2023 Office Visit Cardiology Amaya Singleton PA-C [address] [place] [address] 11/23/2023 Office Visit Family Medicine Sotero Pizano MD [address] [place] [address] 11/27/2023 Office Visit Neurology Vernell Kimball PA-C [address] [place] [address] 12/10/2023 Nurse Only [facility] Nurse [facility] [address] [place] [address] 04/08/2024 Office Visit Hematology Oncology Mario Kong MD [address] [place] [address] 06/30/2024 Imaging Radiology Health Maintenance Due Date Last Done Comments COVID-19 Vaccine (3 - Pfizer series) 04/14/2021 02/17/2021, 01/27/2021 Pneumococcal Vaccine: 65+ Years (2 - PCV) 02/24/2023 02/24/2022 Albumin/Creatinine Ratio 06/28/2023 06/28/2022 Influenza Vaccine (FLU shot) (#1) 2023 09/08/2021, 07/29/2020 Depression Screening, Annual for Pts 12 and Over 12/07/2023 12/07/2022 GFR 12/22/2023 06/21/2023, 06/12/2022, 03/21/2023, Additional history exists CKD PHOS USE SMARTSET 95012 03/16/202403/05, 03/29/2022, 05/13/2021, Additional history exists CKD HGB USE SMARTSET 96595 04/25/202404/25, 04/25/2023, 04/06/2023, Additional history exists Mammogram [...] encounter Medical Devices Implanted Type Area Senior Windows Engineer Device Identifier Shelf Expiration Date Model / Serial / Lot [employer] Hydrosoft 3d Implanted:Qty: 1 on 08/16/2018 by Aime Casas MD at [place] [facility] [place]/A: Head [employer] : [employer] 07/05/2023 [id number] / [id number] / [id number] Hd Offset Hum 46x16 - [id number] Implanted:Qty: 1 on 09/28/2020 by Teresa Rehman DO at OR [facility] Left: Shoulder [employer] 06/17/2026 [id number] documented as of this encounter Visit Diagnoses [...] and were consensually agreed upon. Care Teams Hydro Operator Relationship Specialty Start Date End Date March, Sotero Sutton MD [address] [place] [address] PCP - General Family Medicine 12/07/22 documented as of this encounter
--- OUTSIDE RECORDS SUMMARY | 2023-11-15 04:33 | External Medical Summary | Summary of Care ---
Author Name Unknown Organization [facility] Address [address] [facility] [place] [address] Phone [phone] Care Team Providers Care Warehouse Order Picker Name Role Phone Sotero Pizano MD Primary Care Provider [phone] Reason for Visit * Reason Onset Date Comments [facility]: Maintenance 07/03/2023 Encounter Details Date Type Department Care Team Description 07/03/2023 Telephone [facility], [facility] [address] [place] [address] Ladi Joseph RN [address] [place] [address] [facility]: Maintenance Allergies Active Allergy [...] 03/15/2022 Active Vitamin D (Ergocalciferol) 1.25 MG (57307 UT) Oral Capsule TAKE ONE CAPSULE BY [...] Maria LPN - 07/03/2023 2:38 PM EDT [employer] is no longer in business; they are now [facility] [employer]. Attempted to call [employer] to have DME supplier [facility] but was unable to get through at this time d/t high call volumes. Left VM with name, company name and callback number for a rep to return call. * Telephone Encounter - Ladi Joseph RN - 07/03/2023 2:07 PM EDT Pt currently has oxygen concentrator from [employer]. She gets her CPAP from [facility] and also 's supplies come from [facility]. She is requesting that the oxygen concentrator be switched over to [facility]. She hasn't been able to reach [employer] and now they are sending her bills. She is also concerned that they have never been out to service her machine and do not send her new tubing. Can you please assist in this? Thank you! documented in this encounter Plan of Treatment Upcoming Encounters Date Type Specialty Care Team Description 07/03/2023 Home Visit [facility] Ladi Joseph RN [address] [place] [address] 07/25/2023 Home Visit [facility] Ladi Joseph, RN [address] [place] [address] 07/30/2023 Office Visit Orthopedics Amy Perkins MD [address] [place] [address] 08/07/2023 Office Visit Pain Medicine Elijah Nash DO [address] [place] [address] 08/22/2023 Office Visit Neurological Surgery Aime Casas MD [address] [place], [place] [id number] 08/27/2023 Office Visit Allergy & Immunology Brennan Wasserman MD [address] [place] [address] 10/01/2023 Office Visit Cardiology Amaya Singleton PAJeimyC [address] [place] [address] 11/23/2023 Office Visit Family Medicine Sotero Pizano MD [address] [place] [address] 11/27/2023 Office Visit Neurology Vern[facility]ball [facility]imy[facility] [address] [facility] [address] 12/10/2023 Nurse Only Patito [place] Nurse [facility] [address] [place] [address] 04/08/2024 Office Visit Hematology Oncology Mario Kong MD [address] [place] [address] 06/30/2024 Imaging Radiology Health Maintenance Due Date Last Done Comments COVID-19 Vaccine (3 - Pfizer series) 04/14/2021 02/17/2021, 01/27/2021 Pneumococcal Vaccine: 65+ Years (2 - PCV) 02/24/2023 02/24/2022 Albumin/Creatinine Ratio 06/28/2023 06/28/2022 Influenza Vaccine (FLU shot) (#1) 2023 09/08/2021, 07/29/2020 Depression Screening, Annual for Pts 12 and Over 12/07/2023 12/07/2022 GFR 12/22/2023 06/21/2023, 12/2022, 03/21/2023, Additional history exists CKD PHOS USE SMARTSET 66448 03/16/202403/05, 03/29/2022, 05/13/2021, Additional history exists CKD HGB USE SMARTSET 96024 04/25/202404/25, 04/25/2023, 04/06/2023, Additional history exists Mammogram [...] this encounter Medical Devices Implanted Type Area Instrumentation Technician Device Identifier Shelf Expiration Date Model / Serial / Lot [employer] Hydrosoft 3d Implanted:Qty: 1 on 08/16/2018 by Aime Casas MD at OR [facility] N/A: Head [employer] : [employer] 07/05/2023 [id number] / [id number] / [id number] Hd Offset Hum 46x16 - [id number] Implanted:Qty: 1 on 09/28/2020 by Teresa Rehman DO at OR [facility] Left: Shoulder [employer] 06/17/2026 [id number] / / [id number] documented as of this encounter Advance Directives [...] and were consensually agreed upon. Care Teams Warehouse Order Picker Relationship Specialty Start Date End Date March, Sotero Sutton MD [address] [place] [address] PCP - General Family Medicine 12/07/22 documented as of this encounter
--- OUTSIDE RECORDS SUMMARY | 2023-11-15 04:33 | External Medical Summary | Summary of Care ---
Author Name Unknown Organization [facility] Address [address] [place] [address] Phone [phone] Care Team Providers Care Back Strip Machine Operator Name Role Phone Sotero Pizano MD Primary Care Provider [phone] Reason for Referral * Evaluate & Treat - Unlimited Visits (Within 30 days (routine)) - Authorized Specialty Diagnoses / Procedures Referred By Contac t Referred To Contact Pain Management / Pain Medicine Diagnoses Ulnar neuropathy of left upper extremity Cervical disc disorder with radiculopathy Christo Burk MD [address] [place] [address] Referral ID Status Reason Start Date Expiration Date Visits Requested Visits Authorized [id number] Authorized Specialty Services Required 06/28/2023 999 999 Question Answer Referral Priority Within 30 days (routine) Reason for referral? Non Interventional Pain Management What is the preferred location to have this test performed? [facility] Comments Patient Name: Kristen Garcia Date of : 1955 Department Phone Number: MRI or CT (if unable to have a MRI) is recommended if any of the following apply: 1. Patient has neck or back pain with radiation to extremities. A previous MRI will be accepted if symptoms unchanged since prior MRI. 2. Spinal surgery since last MRI. If yes, order a MRI with and without contrast. 3. Hx or ongoing cancer treatment. Patient will need spine x-ray (Ap/Lat) for axial neck or back pain if not done previously. Fax No. [facility] [phone] or contact front end drupal developer [phone] [facility] [phone] or contact front end drupal developer [phone] Fax No. [facility] [phone] or contact front end drupal developer [phone] * Evaluate & Treat - Unlimited Visits (Within 30 days (routine)) - Authorized Specialty Diagnoses / Procedures Referred By Bharat dobbs Referred To Contact Sports Medicine / Orthopedics Diagnoses Chronic pain of both knees Christo Burk MD [address] [address] Referral ID Status Reason Start Date Expiration Date Visits Requested Visits Authorized [id number] Authorized Specialty Services Required 06/28/2023 999 999 Question Answer What body part is the patient being seen for? Thigh/Knee What condition is the patient being seen for? Arthritis including related infection Referral Priority Within 30 days (routine) Reason for Visit * Reason Comments NEW PATIENT Left UE * Evaluate & Treat - Unlimited Visits (Within 10 days (routine)) - Authorized Specialty Diagnoses / Procedures Referred By Bharat dobbs Referred To Contact Orthopaedic Surgery / Orthopedics Diagnoses Ulnar neuropathy at elbow of left upper extremity Vernell Kimball PA-C [address] [facility] [place] [address] Referral ID Status Reason Start Date Expiration Date Visits Requested Visits Authorized [id number] Authorized Specialty Services Required 05/25/2023 999 999 Encounter Details Date Type Department Care Team Description 06/28/2023 Office Visit Orthopaedics [facility] [address] [address] Christo Burk MD [address] [address] Ulnar neuropathy of left upper extremity*; Cervical disc disorder with radiculopathy; Chronic pain of both knees Allergies Active Allergy Reactions Severity Noted Date [...] as of this encounter (statuses as of 06/28/2023) Medications Medication Sig Dispensed Refills Start Date [...] 03/15/2022 Active Vitamin D (Ergocalciferol) 1.25 MG (51622 UT) Oral Capsule TAKE ONE CAPSULE BY [...] Active Additional Information Patient taking differently:100 mg OralDaily(AM), Reported on 03/22/2023 Atorvastatin Calcium 10 MG Oral Tablet (Lipitor) [...] or juice. 238 g 0 04/30/2023 Active Ondansetron HCl 4 MG Oral Tablet (Zofran)Indications [...] the evening 90 Tablet 3 06/19/2023 Active documented as of this encounter (statuses as of 06/28/2023) Active Problems Problem Noted Date Iron deficiency [...] as of this encounter (statuses as of 06/28/2023) Resolved Problems Problem Noted Date Resolved Date [...] as of this encounter (statuses as of 06/28/2023) Immunizations Name Administration Dates Next Due COVID-19 [...] as of this encounter Progress Notes * Christo Burk MD - 06/28/2023 1:15 PM EDT ORTHOPAEDIC SURGERY - Clinic Note SUBJECTIVE: Kristen Garcia is a 68 year old female. Chief Complaint Patient presents with NEW PATIENT Left UE ASSESSMENT: G56.22 Ulnar neuropathy of left upper extremity (primary encounter diagnosis) M50.10 Cervical disc disorder with radiculopathy M25.561,M25.562,G89.29 Chronic pain of both knees PLAN: We discussed diagnosis and treatment options with the patient today. Her EMG studies show evidence of latency of the ulnar nerve as well as the median nerve. With the patient's history of multilevel degenerative disc disease of the spine we recommend that she undergo evaluation by pain management. For her neuropathy we recommended activity modification. The patient states that she is complaining of bilateral knee pain. At this time we will have her follow up with nonoperative sports for evaluation and treatment management of bilateral knee pain. There are no Patient Instructions on file for this visit. Follow Up: Return Referral to nonoperative sports medicine for bilateral knee pain, for Pain management referral. | For: Pain management referral HPI: This is a 68 year old female seen in sports Medicine with 8 month history of left hand numbness. She denies any elbow pain. She denies any previous injury. He states initially her numbness involve the 4th and 5th digits but now involves the palm of the hand as well as the thumb. She recently underwent an EMG study and was referred to our office for evaluation of the elbow. She is had no formal treatment for the elbow pain. Interval history - Nursing Notes: Nissa Rachel LPN 06/28/23 1241 Signed Referred by Vernell Kimball PA-C for eval for ulna neuropathy at left elbow. EMG/NCS performed byDr Bessy Dela Cruz 02/28/23. Pt is RHD. [place]. St states she drops things due to numbness. Pt mentions Left shoulder replacement by Dr Rehman 09/28/2020. Pt is retired. Nissa Freire LPN Review of Systems: Constitutional ROS: No fevers, sweats, or chills Cardiovascular ROS: No chest pain Gastrointestinal ROS: No abdominal pain Musculoskeletal/Extremities ROS: Chief Complaint Patient presents with NEW PATIENT Left UE Neurologic ROS: Denies numbness and tingling Review of patient's allergies indicates: Allergen Reactions [...] Current Outpatient Medications Medication Sig Dispense Refill Aspirin 81 MG Oral Tablet Delayed Release (RA Aspirin EC) Take 1 Tab by mouth daily. 90 Tab 1 CPAP 16 % every night at bedtime. Ipratropium-Albuterol 0.5-2.5 (3) MG/3ML Inhalation Solution (Duoneb) Inhale via nebulizer 3 mL in the morning AND 3 mL at noon AND 3 mL in the evening AND 3 mL before bedtime. 100 mL 3 Compressor Nebulizer Inhale via nebulizer . Use as directed. 1 Each 1 Meclizine HCl 12.5 MG Oral Tablet (Antivert) TAKE ONE TABLET BY MOUTH THREE TIMES DAILY NEEDED FOR DIZZINESS 30 Tablet 2 Vitamin D (Ergocalciferol) 1.25 MG (60256 UT) Oral Capsule TAKE ONE CAPSULE BY MOUTH MONTHLY 12 Capsule 0 Fluticasone Propionate 50 MCG/ACT Nasal Suspension (Flonase) Administer 2 Sprays into nostril in the morning. Docusate Sodium 100 MG Oral Capsule (Colace) Take 1 Capsule by mouth in the morning and 1 Capsule before bedtime. (Patient taking differently: Take 1 Capsule by mouth in the morning.) 60 Capsule 11 Atorvastatin Calcium 10 MG Oral Tablet (Lipitor) TAKE 1 TABLET BY MOUTH ONCE DAILY 90 Tablet 2 Proventil HFA 108 (90 Base) MCG/ACT Inhalation Aerosol Solution Inhale 2 Puffs by mouth every 4 hours as needed for Congestion, Cough or Wheezing. 18 g 0 Triamcinolone Acetonide 0.5 % External Cream (Aristocort) apply topically to affected area of lowerextremities where redness and itching and tight skin twice a day 450 g 0 traZODone HCl 150 MG Oral Tablet (Desyrel) TAKE 1 TABLET BY MOUTH AT BEDTIME 90 Tablet 3 Metoprolol Succinate ER 25 MG Oral Tablet Extended Release 24 Hour (Toprol XL) Take 1 Tablet by mouth in the morning. 34 Tablet 6 Polyethylene Glycol 3350 17 GM/SCOOP Oral Powder (MiraLax) Take 17 g by mouth daily as needed for Constipation. Dissolve one heaping tablespoon in 8 ounces of water or juice. 238 g 0 Ondansetron HCl 4 MG Oral Tablet (Zofran) TAKE 1 TABLET BY MOUTH EVERY 8 HOURS IF NEEDED FOR VROYOA02 Tablet 0 Vitamin B-12 1000 MCG Oral Tablet (Cyanocobalamin) Take 1 Tablet by mouth in the morning. 30 Vjeeqe90 rOPINIRole HCl 2 MG Oral Tablet (Requip) TAKE ONE TABLET BY MOUTH IN THE MORNING, ONE AT NOON AND ONE BEFORE BEDTIME. TAKE WITH FOOD. 90 Tablet 2 Losartan Potassium 25 MG Oral Tablet (Cozaar) Take 0.5 Tablets by mouth in the morning. 34 Tablet 11 Magnesium Oxide -Mg Supplement 400 (240 Mg) MG Oral Tablet (Mag-Ox) TAKE 1 TABLET BY MOUTH EVERY MORNING 90 Tablet 0 Pregabalin 25 MG Oral Capsule (Lyrica) Take 1 capsule in the am, and 2 capsules in pm. 90 Capsule 3 Torsemide 10 MG Oral Tablet (Demadex) 20 mg in the morning 10 mg in the evening 90 Tablet 3 No current facility-administered medications for this visit. Patient Active Problem List Diagnosis Code Hirsutism [...] episode, mild (HCC) F32.0 Atherosclerosis of aorta ([facility]) I70.0 RLS (restless legs syndrome) G25.81 Nocturnal hypoxemia G47.34 Lipodermatosclerosis of both lower extremities I83.11, I83.12 Chronic kidney disease, stage 3b (HCC) N18.32 Morbid (severe) obesity due to excess calories ([facility]) E66.01 Panic disorder (episodic paroxysmal anxiety) F41.0 Hyperlipidemia E78.5 BMI 40.0-44.9, adult ([facility]) Z68.41 Hypertensive heart disease with diastolic heart failure and stage 3b chronic kidney disease (HCC) I13.0, I50.30, N18.32 Iron deficiency anemia due to chronic blood loss D50.0 Past Medical History: Diagnosis Date Anxiety state, [...] performed by Aime Casas [place] [facility] CAROTID (INTERNAL) ARTERY CATHETHER PLACEMENT Bilateral 01/23/2019 CATHETER PLACEMENT INTERNAL CAROTID ARTERY performed by Aime Casas MD at [place] [facility] CATHETER OCCLUSION/EMBOLIZATION,DETECTIVE YOUTH BUREAU N/A 08/16/2018 TRANSCATHETER PERMANENT ARTERIAL OCCLUSION CENTRAL NERVOUS SYSTEM performed by [facility] 1983 Delivery Only COLONOSCOPY, DIAGNOSTIC (RECTUM) 09/05/2016 adenomatous polyps, diverticulosis, repeat 5 yrs/[facility] COLONOSCOPY, DIAGNOSTIC (RECTUM) 06/02/2020 fair prep, normal / [facility] COLONOSCOPY, DIAGNOSTIC (RECTUM) N/A 08/11/2022 [facility], colonoscopy prep-fair, hemorrnoids on perianal exam , otherwise normal / no specimens collected / EGD, FLEXIBLE, DIAGNOSTIC 06/02/2020 erosive gastropathy / [facility] EGD, FLEXIBLE, DIAGNOSTIC N/A 08/11/2022 [facility], EGD, normal scope / no specimens collected / EXPLORATION OF ABDOMEN 1974 Exploratory Of Abdomen HEMORRHOIDECTOMY, INTERNAL W/ BANDING Hemorrhoid(S) Ligation ismael INFORMATION 1976/. labor and delivery x 2 INFORMATION 08/16/2018 x2 STENTS Terumo MicroVention LVIS Jr Intraluminal Support Device model #[id number] INFORMATION 08/16/2018 x2 STENTS [employer] MicroVention LVIS Jr Intraluminal Support Device model# [id number] INFORMATION 08/16/2018 COIL [employer] MicroVention Hydrosoft 3D model# [id number] INFORMATION 08/16/2018 COIL [employer]ention Hydrosoft 3D model# [id number] INJECTION CERVICAL/THORACIC 08/02/2016 INJECTION SPINE LUMBAR CERVICAL OR THORACIC performed by Elijah Nash DO at OR [facility] INTRACRANIAL ARTERIES CATH PLACEMENT N/A 08/16/2018 CATHETER PLACEMENT EACH INTRACRANIAL BRANCH OF THE INTERNAL CAROTID OR VERTEBRAL ARTERIES performedby Aime Casas MD at [place] [facility] INTRACRANIAL INTRAVASCULAR STENT,INCL ANGIO N/A 08/16/2018 TRANSCATHETER PLACEMENT OF INTRAVASCULAR STENTS, INTRACRANIAL performed by Aime Casas MD at [place] [facility] LIGATION/BIOPSY OF TEMPORAL ARTERY Left 06/05/2018 [facility] RECONSTRUCT/REPLACE SHOULDER JOINT Left 09/28/2020 ARTHROPLASTY TOTAL SHOULDER performed by Teresa Rehman DO at OR [facility] REMOVAL OF APPENDIX 1974 Appendectomy REMOVAL OF OVARY/OVIDUCT(S) 1983 Ovary/Tube(S) Removal REMOVAL OF TONSILS, UNDER AGE 12 REMOVE TENDON SHEATH LESION, HAND Right 12/01/2014 EXCISION LESION TENDON SHEATH OR CAPSULE HAND OR FINGER performed by Javi Bishop MD at OR [facility] REVISE UPPER EYELID/EXCESS SKIN Bilateral [facility]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" SACROILIAC JOINT INJECT W/GUIDANCE 01/08/2017 INJECTION SACROILIAC JOINT performed by Elijah Nash DO at [facility] SACROILIAC JOINT INJECT W/GUIDANCE 02/28/2018 INJECTION SACROILIAC JOINT performed by Elijah Nash DO at [facility] TOTAL HYSTERECTOMY 1984 ANA (Total Abdominal Hysterectomy) Bleeding VERTEBRAL ARTERY CATHETER PLACEMENT Bilateral 07/15/2018 CATHETER PLACEMENT VERTEBRAL ARTERY, performed by Aime Casas MD at [facility] VERTEBRAL ARTERY CATHETER PLACEMENT Bilateral 01/23/2019 CATHETER PLACEMENT VERTEBRAL ARTERY, performed by Aime Casas MD [place] [facility] Social History Tobacco Use Smoking status: Former Packs/day: 0.25 Years: 25.00 Pack years: 6.25 Types: Cigarettes Quit date: 12/12/2002 Years since quittin.5 Smokeless tobacco: Never Tobacco comments: was smoking 1/2 pack per day Vaping Use Vaping Use: Never used Substance Use Topics Alcohol use: Not Currently Comment: rarely Drug use: Yes Types: Marijuana Comment: marijuana couple times per month Family history: Noncontributory OBJECTIVE: Diagnostic Testing: Reviewed the x-rays of the cervical spine from 01/24/2023. That x-ray shows evidence of multilevel degenerative disc disease most pronounced at C6-C7. No evidence of fracture. No evidence spondylolysis or spondylolisthesis. Patient recently underwent an EMG nerve conduction study. That study showed positive nerve latency in the ulnar nerve as well as the median nerve. Vital Signs: There were no vitals taken for this visit. Physical Exam: Right Elbow Exam Right elbow exam is normal. Tenderness The patient is experiencing no tenderness. Range of Motion The patient has normal right elbow ROM. Muscle Strength The patient has normal right elbow strength. Tests Varus: negative Valgus: negative Tinel's sign (cubital tunnel): negative Other Erythema: absent Scars: absent Sensation: normal Pulse: present Left Elbow Exam Left elbow exam is normal. Tenderness The patient is experiencing no tenderness. Range of Motion The patient has normal left elbow ROM. Muscle Strength The patient has normal left elbow strength. Tests Varus: negative Valgus: negative Tinel's sign (cubital tunnel): negative Other Erythema: absent Scars: absent Sensation: normal Pulse: present This chart was completed in part utilizing [employer] Voice Recognition Software. Grammatical errors, random word insertions, pronoun errors, and incomplete sentences are an occasional consequence of this system due to software limitations, ambient noise, and hardware issues. Any formal questions or concerns about the content, text, or information contained within the body of this dictation should be directly addressed to the provider for clarification. Christo Burk MD Orthopaedics [facility] [address] [place] [address] Orthopedic Sports Medicine Surgery 06/28/2023 documented in this encounter Nursing Notes * Nissa Rachel LPN - 06/28/2023 12:31 PM EDT Referred by Vernell Kimball PA-C for eval for ulna neuropathy at left elbow. EMG/NCS performed byDr Bessy Dela Cruz 02/28/23. Pt is RHD. NK[place]. St states she drops things due to numbness. Pt mentions Left shoulder replacement by Dr Rehman 09/28/2020. Pt is retired. Nissa Freire LPN documented in this encounter Plan of Treatment Upcoming Encounters Date Type Specialty Care Team Description 06/28/2023 Imaging Radiology Encounter for screening mammogram for malignant neoplasm of breast 07/02/2023 Home Visit [facility] Ladi Joseph RN [address] [address] 07/30/2023 Office Visit Orthopedics Amy Perkins MD [address] [address] 08/07/2023 Office Visit Pain Medicine Elijah Nash DO [address] [place] [address] 08/22/2023 Office Visit Neurological Surgery Aime Casas MD [address] [place] [address] 08/27/2023 Office Visit Allergy & Immunology Brennan Wasserman MD [address] [facility] [place] [address] 10/01/2023 Office Visit Cardiology Amaya Singleton PA-C [address] [place] [address] 11/23/2023 Office Visit Family Medicine Sotero Pizano MD [address] [place] [address] 11/27/2023 Office Visit Neurology Vernell Kimball PA-C [address] [facility] [place] [address] 12/10/2023 Nurse Only [facility], Nurse [facility] [address] [place] [address] 04/08/2024 Office Visit Hematology Oncology Mario Kong MD [address] [place] [address] Pending Results Name Type Priority Associated Diagnoses Date /Time XR ELBOW 3 OR MORE VIEWS Medical Imaging Routine Ulnar neuropathy of left upper extremity 06/28/2023 12:49 PM EDT Scheduled Referrals Name Type Priority Associated Diagnoses Orde r Schedule SPORTS MEDICINE REFERRAL OP Referral Within 30 days (routine) Chronic pain of both knees Ordered: 06/28/2023 PAIN MEDICINE REFERRAL OP Referral Within 30 days (routine) Ulnar neuropathy of left upper extremity Cervical disc disorder with radiculopathy Ordered: 06/28/2023 Health Maintenance Due Date Last Done Comments Mammogram 05/15/2020 05/15/2019, 03/2016, 03/15/2015, Additional history exists COVID-19 Vaccine (3 - Pfizer series) 04/14/2021 02/17/2021, 01/27/2021 Pneumococcal Vaccine: 65+ Years (2 - PCV) 02/24/2023 02/24/2022 Albumin/Creatinine Ratio 06/28/2023 06/28/2022 Influenza Vaccine (FLU shot) (#1) 2023 09/08/2021, 07/29/2020 Depression Screening, Annual for Pts 12 and Over 12/07/2023 12/07/2022 GFR 12/22/2023 06/21/2023, 12/2022, 03/21/2023, Additional history exists CKD PHOS USE SMARTSET 64634 03/16/202403/05, 03/29/2022, 05/13/2021, Additional history exists CKD HGB USE SMARTSET 02122 04/25/202404/25, 04/25/2023, 04/06/2023, Additional history exists Diabetes Screening 06/21/2026 06/21/2023, [...] this encounter Medical Devices Implanted Type Area Arc Welder Device Identifier Shelf Expiration Date Model / Serial / Lot [employer] Hydrosoft 3d Implanted:Qty: 1 on 08/16/2018 by Aime Casas MD [place] [facility] N/A: Head [employer] : INTER[employer]ION[employer] 07/05/2023 [id number] / [id number] / [id number] Hd Offset Hum [id number] - [id number] Implanted:Qty: 1 on 09/28/2020 by Teresa Rehman DO at OR [facility] Left: Shoulder [employer]ICAL 06/17/2026 [id number] / / [id number] documented as of this encounter Visit Diagnoses Diagnosis Ulnar neuropathy of left upper extremity- Primary Lesion of ulnar nerve Cervical disc disorder with radiculopathy Brachial neuritis or radiculitis nos Chronic pain of both knees Encounter for screening mammogram for malignant neoplasm of breast Other screening mammogram documented in this encounter Advance Directives Latest [...] and were consensually agreed upon. Care Teams Back Strip Machine Operator Relationship Specialty Start Date End Date March, Sotero Sutton MD [address] [place], [place] [id number] PCP - General Family Medicine 12/07/22 documented as of this encounter
--- OUTSIDE RECORDS SUMMARY | 2023-11-15 04:33 | External Medical Summary | Summary of Care ---
Author Name Unknown Organization [facility] Address [address] [place] [address] Phone [phone] Care Team Providers Care Sneller Hand Name Role Phone Sotero Pizano MD Primary Care Provider [phone] Reason for Visit * Reason Onset Date Comments Advice 07/03/2023 Encounter Details Date Type Department Care Team Description 07/03/2023 Telephone [facility], [facility] [address] [place] [address] Ladi Joseph RN [address] [place] [address] Advice Allergies Active Allergy Reactions Severity Noted Date [...] as of this encounter (statuses as of 07/04/2023) Medications Medication Sig Dispensed Refills Start Date [...] 03/15/2022 Active Vitamin D (Ergocalciferol) 1.25 MG (93968 UT) Oral Capsule TAKE ONE CAPSULE BY [...] as of this encounter (statuses as of 07/04/2023) Active Problems Problem Noted Date Iron deficiency [...] as of this encounter (statuses as of 07/04/2023) Resolved Problems Problem Noted Date Resolved Date [...] as of this encounter (statuses as of 07/04/2023) Immunizations Name Administration Dates Next Due COVID-19 [...] Telephone Encounter - Ladi Joseph RN - 07/04/2023 4:27 PM EDT Called pt to notify of recommendation to increase Lyrica to 50mg twice a day and to let her know she can buy a TENS unit online if she would like to to try it, per recommendations by Vernell Kimball PA-C. No answer on pt's phone - LMOM. * Telephone Encounter - Ladi Joseph RN - 07/03/2023 1:58 PM EDT Sachin Matt, Pt seen for home visit. Pt reports the lyrica has been helping but still having pain - requesting if it could be increased one more time and feels that would be very beneficial. What are your thoughts on this? Can she be bumped up a little? She is also asking of there is a TENS unit that she could use on her legs? Is there such a thing that she could use at home? Please advise. Thank you! documented in this encounter Plan of Treatment Upcoming Encounters Date Type Specialty Care Team Description 07/25/2023 Home Visit [facility] Ladi Joseph RN [address] [place] [address] 07/30/2023 Office Visit Orthopedics Amy Perkins MD [address] [place] [place] [address] 08/07/2023 Office Visit Pain Medicine CouElijah lamas DO [address] [place] [address] 08/22/2023 Office Visit Neurological Surgery Aime Casas MD [address] [place] [address] 08/27/2023 Office Visit Allergy & Immunology Brennan Wasserman MD [address] [facility] [place] [address] 10/01/2023 Office Visit Cardiology Amaya Singleton PA-C [address] [place] [address] 11/23/2023 Office Visit Family Medicine Sotero Pizano MD [address] [place] [address] 11/27/2023 Office Visit Neurology Vernell Kimball PA-C [address] [place] [address] 12/10/2023 [facility] [address] [place] [address] 04/08/2024 Office Visit Hematology Oncology Mario Kong MD [address] [facility] [place] [address] 06/30/2024 Imaging Radiology Health Maintenance Due Date Last Done Comments COVID-19 Vaccine (3 - Pfizer series) 04/14/2021 02/17/2021, 01/27/2021 Pneumococcal Vaccine: 65+ Years (2 - PCV) 02/24/2023 02/24/2022 Albumin/Creatinine Ratio 06/28/2023 06/28/2022 Influenza Vaccine (FLU shot) (#1) 2023 09/08/2021, 07/29/2020 Depression Screening, Annual for Pts 12 and Over 12/07/2023 12/07/2022 GFR 12/22/2023 06/21/2023, 06/12/2022, 03/21/2023, Additional history exists CKD PHOS USE SMARTSET 07872 03/16/202403/05, 03/29/2022, 05/13/2021, Additional history exists CKD HGB USE SMARTSET 36042 04/25/202404/25, 04/25/2023, 04/06/2023, Additional history exists Mammogram [...] this encounter Medical Devices Implanted Type Area Building Maintenance Repairer Device Identifier Shelf Expiration Date Model / Serial / Lot Terumo Microvention Hydrosoft 3d Implanted:Qty: 1 on 08/16/2018 [place] [facility] [place] Head [employer] : INTERVENTIONA 07/05/2023 [id number] / [id number] / [id number] Hd Offset Hum 46x16 - [id number] Implanted:Qty: 1 on 09/28/2020 by Teresa Rheman DO at OR [facility] Left: Shoulder DJO SURGICAL 06/17/2026 520-46-31 [id number] documented as of this encounter Advance Directives [...] and were consensually agreed upon. Care Teams Sneller Hand Relationship Specialty Start Date End Date March, Sotero Sutton MD [address] [facility] [place] [address] PCP - General Family Medicine 12/07/22 documented as of this encounter
--- OUTSIDE RECORDS SUMMARY | 2023-11-15 04:34 | External Medical Summary | Summary of Care ---
Author Name Unknown Organization [facility] Address [address] [facility] [place] [address] Phone [phone] Care Team Providers Care Industrial Hygiene Engineer Name Role Phone Sotero Pizano MD Primary Care Provider [phone] Reason for Visit * Reason Onset Date Comments [facility]: Maintenance 06/21/2023 Encounter Details Date Type Department Care Team Description 06/21/2023 Scheduled Telephone [facility], [facility] [address] [place] [address] Coordinator, [facility] [address] [place] [address] Hypertensive heart disease with diastolic heart failure and stage 3b chronic kidney disease, unspecified HF chronicity (HCC)* Allergies Active Allergy Reactions Severity Noted [...] as of this encounter (statuses as of 06/21/2023) Medications Medication Sig Dispensed Refills Start Date [...] 03/15/2022 Active Vitamin D (Ergocalciferol) 1.25 MG (75860 UT) Oral Capsule TAKE ONE CAPSULE BY [...] as of this encounter (statuses as of 06/21/2023) Active Problems Problem Noted Date Iron deficiency [...] as of this encounter (statuses as of 06/21/2023) Resolved Problems Problem Noted Date Resolved Date [...] as of this encounter (statuses as of 06/21/2023) Immunizations Name Administration Dates Next Due COVID-19 mRNA, LNP-s, No Pre serve, 2-Dose Series (Pfizer) 02/17/2021,01/27/2021 Pneumococcal Polysaccharide PPV23 (Pneumovax) Seasonal Influenza, Quadrivalent Hd (Fluzone Hd) 09/08/2021 Seasonal Influenza, Quadriva lent, No Preserve, 6 Mons & Above, IM 07/29/2020 TD - Tetanus/Diptheria (ADULT) 11/05/1985 TDAP (age [...] encounter Miscellaneous Notes * Addendum Note - Xu Donaldson PA-C - 06/21/2023 1:46 PM EDTAddended by: XU DONALDSON on: 06/21/2023 01:46 PM Modules accepted: Orders * Telephone Encounter - Xu Donaldson PA-C - 06/21/2023 1:44 PM EDT BMP today if possible if not tomorrow morning. If the potassium is low then we need to start the patient on potassium if it is willing to a normal range I will hold off on adding any potassium * Telephone Encounter - Laurie Cabrera RN - 06/21/2023 11:36 AM EDT Images from the original note were not included. [facility] Telephonic Nurse Follow-Up Call [facility] Subprogram: Focused Care Management (3-9 months) Follow Up Call Type: 72 hr Acute issue requiring follow-up call: Heart Failure Exacerbation Objective: 06/19/2023 4:40 PM 06/19/2023 4:04 PM 06/19/2023 4:00 PM 06/10/2023 3:41 PM 06/01/2023 1:50 PM VITALS ACROSS ENCOUNTERS BP 102/62 110/60 122/70 118/68 Arterial Blood Pressure1 (ABP) 110/60 Arterial Blood Pressure2 (ART) 102/62 Pulse 75 79 66 Weight 117.3 kg 116 kg 117.8 kg BMI 41.9 BMI 42.4 kg/m2 41.92 kg/m2 43.2 kg/m2 Lab Results Component Value Date PROTEIN - [facility] 6.9 05/25/2023 WBC AUTO - [facility] 7.01 04/25/2023 Lab Results Component Value Date WBC AUTO - [facility] 7.01 04/25/2023 HGB - [facility] 11.9 (L) 04/25/2023 PLATELET AUTO - [facility] 263 04/25/2023 Lab Results Component Value Date SODIUM - [facility] 141 04/06/2023 POTASSIUM - [facility] 4.1 04/06/2023 CO2 - [facility] 28 04/06/2023 CREATININE - [facility] 1.2 (H) 04/06/2023 ESTIMATED GLOMERULAR FILTRATION RATE - [facility] 51 (L) 04/06/2023 No results found for: PRO BNP, LEFT VENTRICULAR EJECTION FRACTION Remote Patient Monitoring: [facility] Scale: 256.3 Oxygen Needs: NO CHANGE from baseline supplemental oxygen needs, 2 LPM at HS only DME Needs: NO DME needs identified Medications: Current DTP: Double dose of Torsemide for 2 days, and had IV LASIX 80 MG yesterday afternoon Subjective: Condition Status: Improvement in symptoms but not at baseline Current Concerns: Per patient, she has no idea why her weight is up. She was voiding all night long after IV lasix. Took her Torsemide 40 mg this AM at 9am, has not gone to bathroom yet. She will be taking 20 mg this afternoon She did have bad leg and toe cramps overnight. Aware will route to [facility] for possible Potassium pills. SOB just a little, much better than yesterday Feet edema has already started for today Reviewed with patient the importance of weight self same way each day. Wake up, void, weigh herself. THEN, she can change clothes, eat breakfast, etc. If she wakes up at 7am or 9am, that needs to be the routine. If not, they weights we are getting won't be accurate and make it difficult to give proper medication dosage Routing to [facility] for possible potassium supplement Follow up tomorrow to check status of weight Disposition: Routed to [facility] and/or [facility] Care Team for further advice Future Visits Scheduled: Future Appointments-next 60 days Date/Time Provider Specialty Dept Phone 06/21/2023 1:30 PM Linda Mills Account Development Manager [facility] [phone] 06/28/2023 1:00 PM (Arrive by 12:45 PM) Christo Burk MD Orthopedics [phone] 06/28/2023 2:15 PM (Arrive by 2:00 PM) [email or web address] Radiology [phone] 07/02/2023 4:00 PM Ladi Joseph RN [facility] [phone] 08/22/2023 3:00 PM (Arrive by 2:45 PM) Aime Casas MD Neurological Surgery [phone] 08/27/2023 3:00 PM (Arrive by 2:45 PM) Brennan Wasserman MD Allergy & Immunology [phone] 10/01/2023 2:00 PM (Arrive by 1:45 PM) Amaya Singleton PA-C Cardiology [phone] 11/23/2023 2:40 PM (Arrive by 2:25 PM) Sotero Pizano MD Family Medicine [phone] 11/27/2023 2:00 PM (Arrive by 1:45 PM) Vernell Kimball PA-C Neurology [phone] 12/10/2023 3:30 PM Nurse Annual Wellness [facility] [phone] 04/08/2024 3:15 PM (Arrive by 3:00 PM) Mario Kong MD Hematology Oncology [phone] Laurie Cabrera, RN documented in this encounter Plan of Treatment Upcoming Encounters Date Type Specialty Care Team Description 06/22/2023 Scheduled Telephone [facility] Cyber Threat Analyst, [facility] [address] [place] [address] 06/28/2023 Office Visit Orthopedics Christo Burk MD [address] [place] [address] 06/28/2023 Imaging Radiology 07/02/2023 Home Visit [facility] Ladi Joseph RN [address] [place] [address] 08/22/2023 Office Visit Neurological Surgery Aime Casas MD [address] [place] [address] 08/27/2023 Office Visit Allergy & Immunology Brennan Wasserman MD [address] [place] [address] 10/01/2023 Office Visit Cardiology Amaya Singleton PA-C [address] [place] [address] 11/23/2023 Office Visit Family Medicine Sotero Pizano MD [address] [place] [address] 11/27/2023 Office Visit Neurology Vernell Kimball PA-C [address] [place], [place] [phone] 12/10/2023 Nurse Only [facility] Nurse Annual Wellness [address] [place] [address] 04/08/2024 Office Visit Hematology Oncology Mario Kong MD [address] [place] [address] Scheduled Orders Name Type Priority Associated Diagnoses Orde r Schedule BASIC METABOLIC PANEL Lab Routine Hypertensive heart disease with diastolic heart failure and stage 3b chronic kidney disease, unspecified HF chronicity (HCC) Expected: 06/21/2023 (Approximate), Expires: 06/20/2024 Health Maintenance Due Date Last Done Comments Mammogram 05/15/2020 05/15/2019, 08/0 03/2016, 03/15/2015, Additional history exists COVID-19 Vaccine (3 - Pfizer series) 04/14/2021 02/17/2021, 01/27/2021 Pneumococcal Vaccine: 65+ Years (2 - PCV) 02/24/2023 02/24/2022 Albumin/Creatinine Ratio 06/28/2023 06/28/2022 Influenza Vaccine (FLU shot) (#1) 2023 09/08/2021, 07/29/2020 GFR 10/06/2023 04/06/2023, 03/05, 03/16/2023, Additional history exists Depression Screening, Annual for Pts 12 and Over 12/07/2023 12/07/2022 CKD PHOS USE SMARTSET 44832 03/16/202403/05, 03/29/2022, 05/13/2021, Additional history exists CKD HGB USE SMARTSET 57426 04/25/202404/25, 04/25/2023, 04/06/2023, Additional history exists Diabetes Screening 04/06/2026 04/06/2023, 0 03/27/2023, 03/21/2023, Additional history exists COLONOSCOPY-EVERY 5 YRS AGES [...] this encounter Medical Devices Implanted Type Area Knotter Hand Device Identifier Shelf Expiration Date Model / Serial / Lot [employer] Microvention Hydrosoft 3d Implanted:Qty: 1 on 08/16/2018 by Aime Casas MD [place] [facility] [place]: Head [employer] : INTERVENTIONA 07/05/2023 6535-9729 / [id number] / [id number] Hd Offset Hum 46x16 - [id number] Implanted:Qty: 1 on 09/28/2020 by Teresa Rehman DO at OR [facility] Left: Shoulder DJO SURGICAL 06/17/2026 [id number] documented as of this encounter Visit Diagnoses Diagnosis Hypertensive heart disease with diastolic heart failure and stage 3b chronic kidney disease, unspecified HF chronicity (HCC)- Primary documented in this encounter Advance [...] and were consensually agreed upon. Care Teams Industrial Hygiene Engineer Relationship Specialty Start Date End Date March, Sotero Sutton MD [address] [place] [address] PCP - General Family Medicine 12/07/22 documented as of this encounter
--- OUTSIDE RECORDS SUMMARY | 2023-11-15 04:34 | External Medical Summary | Summary of Care ---
Author Name Unknown Organization [facility] Address [address] [facility] [place] [address] Phone [phone] Care Team Providers Care Manager Mobile Name Role Phone Sotero Pizano MD Primary Care Provider [phone] Reason for Visit * Reason Onset Date Comments [facility]: Maintenance 06/21/2023 Encounter Details Date Type Department Care Team Description 06/21/2023 Scheduled Telephone [facility], [facility] [address] [place] [address] Coordinator, [facility] [address] [place] [address] Hypertensive heart disease with diastolic heart failure [...] 03/15/2022 Active Vitamin D (Ergocalciferol) 1.25 MG (07298 UT) Oral Capsule TAKE ONE CAPSULE BY [...] Encounter - Laurie Cabrera RN - 06/21/2023 2:22 PM EDT Called patient, advised lab work ordered, is she able to go ? She is out now, she will stop at lab to have it done pierogi maker will follow up for results tomorrow Josefina Cabrera RN, BSN [facility] Intake Triage Coordinator [phone] * Addendum Note - Xu Donaldson PA-C [...] [facility] Telephonic Nurse Follow-Up Call [facility] Subprogram: Focused Care Management (3-9 months) [...] LEFT VENTRICULAR EJECTION FRACTION Remote Patient Monitoring: [facility] Scale: 256.3 Oxygen Needs: NO CHANGE from [...] toe cramps overnight. Aware will route to [facility] for possible Potassium [...] to give proper medication dosage Routing to [facility] for possible potassium supplement Follow up tomorrow to check status of weight Disposition: Routed to [facility] and/or [facility] Care Team for further advice Future Visits Scheduled: Future Appointments-next 60 days Date/Time Provider Specialty Dept Phone 06/21/2023 1:30 PM [facility] Gene Strap Making Machine Operator [facility] [phone] 06/28/2023 1:00 PM (Arrive by 12:45 PM) Christo Burk MD Orthopedics [phone] 06/28/2023 2:15 PM (Arrive by 2:00 PM) [address] Radiology [phone] 07/02/2023 4:00 PM Ladi Joseph RN [facility] [phone] 08/22/2023 3:00 PM (Arrive by 2:45 PM) Aime Casas MD Neurological Surgery [phone] 08/27/2023 3:00 PM (Arrive by 2:45 PM) Brennan Wasserman MD Allergy & Immunology [phone] 10/01/2023 2:00 PM (Arrive by 1:45 PM) GISEL GardunoC Cardiology [phone] 11/23/2023 2:40 PM (Arrive by 2:25 PM) Sotero Pizano MD Family Medicine [phone] 11/27/2023 2:00 PM (Arrive by 1:45 PM) GISEL HaleC Neurology [phone] 12/10/2023 3:30 PM Nurse Annual Wellness [facility] [phone] 04/08/2024 3:15 PM (Arrive by 3:00 PM) Mario Kong MD Hematology Oncology [phone] Laurie Cabrera, RN documented in this encounter Plan of Treatment Upcoming Encounters Date Type Specialty Care Team Description 06/22/2023 Scheduled Telephone [facility] Visual Presentation Manager, [facility] [address] [place] [address] 06/28/2023 Office Visit Orthopedics Christo Burk MD [address] [place] [phone] 06/28/2023 Imaging Radiology 07/02/2023 Home Visit [facility] Ladi Joseph RN [address] [place] [address] 08/22/2023 Office Visit Neurological Surgery Aime Casas MD [address] [place] [address] 08/27/2023 Office Visit Allergy & Immunology Brennan Wasserman MD [address] [place] [address] 10/01/2023 Office Visit Cardiology Amaya Singleton PA-C [address] [place] [address] 11/23/2023 Office Visit Family Medicine Sotero Pizano MD [address] [place] [address] 11/27/2023 Office Visit Neurology Vernell Kimball PA-C [address] [place] [address] 12/10/2023 Nurse Only Patito Carroll Nurse Annual Wellness [address] [place] [address] 04/08/2024 Office Visit Hematology Oncology Mario Kong MD [address] [facility] [place] [address] Scheduled Orders Name Type Priority Associated Diagnoses [...] Over 12/07/2023 12/07/2022 CKD PHOS USE SMARTSET 41256 03/16/202403/05, 03/29/2022, 05/13/2021, Additional history exists CKD HGB USE SMARTSET 17057 04/25/202404/25, 04/25/2023, 04/06/2023, Additional history exists Diabetes [...] this encounter Medical Devices Implanted Type Area Metal Roofer Device Identifier Shelf Expiration Date Model / Serial / Lot Terumo Microvention Hydrosoft 3d Implanted:Qty: 1 on 08/16/2018 by Aime Casas MD at [place] [facility] [place]: Head [employer] : INTERVENTIONA 07/05/2023 [id number] / [id number] / [id number] Hd Offset Hum 46x16 - [id number] Implanted:Qty: 1 on 09/28/2020 by Teresa Rehman DO at OR [facility] Left: Shoulder DJO SURGICAL 06/17/2026 [id number] documented as of this encounter Visit Diagnoses [...] and were consensually agreed upon. Care Teams Manager Mobile Relationship Specialty Start Date End Date March, Sotero Sutton MD [address] [place], [place] [id number] PCP - General Family Medicine 12/07/22 documented as of this encounter
--- OUTSIDE RECORDS SUMMARY | 2023-11-15 04:34 | External Medical Summary | Summary of Care ---
Author Name Unknown Organization [facility] Address [address] [facility] [place] [address] Phone [phone] Care Team Providers Care Strategic Development Manager Name Role Phone Sotero Pizano MD Primary Care Provider [phone] Reason for Visit * Reason Onset Date Comments [facility]: Maintenance 06/21/2023 Encounter Details Date Type Department Care Team Description 06/21/2023 Telephone [facility] [address] [facility] [address] [facility], Nurse [facility] [address] [place] [address] [facility]: Maintenance Allergies Active Allergy [...] 03/15/2022 Active Vitamin D (Ergocalciferol) 1.25 MG (66621 UT) Oral Capsule TAKE ONE CAPSULE BY [...] Preserve, 6 Mons & Above, IM 07/29/2020 TDAP (age 11 and older)(Adacel) 08/11/2008 documented [...] Telephone Encounter - Reanna Molina RN - 06/21/2023 5:01 PM EDT CALL from patient. States she picked up 2 prescriptions from [facility] pharmacy. States both bottles state Torsemide 10 mg tablets and CAMB The second bottle states Torsemide 10 mg tablets / TEVA Instructed patient on order for Torsemide is 10 mg - 2 tablets in am and 1 tablet in pm Instructed her to contact pharmacy to see what CAMB and TEVA MEANS ON THE LABELS. Vanessa Molina RN CCM Neck Cutter [facility] documented in this encounter Plan of Treatment Upcoming Encounters Date Type Specialty Care Team Description 06/22/2023 Scheduled Telephone [facility] Flask Carrier, [facility] [address] [place] [address] 06/28/2023 Office Visit Orthopedics Christo Burk MD [address] [place] [phone] 06/28/2023 Imaging Radiology 07/02/2023 Home Visit [facility] Ladi Joseph RN [address] [place] [address] 08/22/2023 Office Visit Neurological Surgery [facility] MD [address] [facility] [address] 08/27/2023 Office Visit Allergy & Immunology Brennan Wasserman MD [address] [place] [address] 10/01/2023 Office Visit Cardiology Amaya Singleton, PAJeimyC [address] [place] [address] 11/23/2023 Office Visit Family Medicine Sotero Pizano MD [address] [place] [address] 11/27/2023 Office Visit Neurology Vernell Kimball PA-C [address] [place] [address] 12/10/2023 Nurse Only [facility], Nurse Annual Wellness [address] [place] [address] 04/08/2024 Office Visit Hematology Oncology Mario Kong MD [address] [place] [address] Health Maintenance Due Date Last Done Comments Mammogram 05/15/2020 05/15/2019, 0803/2016, 03/15/2015, Additional history exists COVID-19 Vaccine (3 - Pfizer series) 04/14/2021 02/17/2021, 01/27/2021 Pneumococcal Vaccine: 65+ Years (2 - PCV) 02/24/2023 02/24/2022 Albumin/Creatinine Ratio 06/28/2023 06/28/2022 Influenza Vaccine (FLU shot) (#1) 2023 09/08/2021, 07/29/2020 GFR 10/06/2023 04/06/2023, 03/05, 03/16/2023, Additional history exists Depression Screening, Annual for Pts 12 and Over 12/07/2023 12/07/2022 CKD PHOS USE SMARTSET 63918 03/16/202403/05, 03/29/2022, 05/13/2021, Additional history exists CKD HGB USE SMARTSET 09846 04/25/202404/25, 04/25/2023, 04/06/2023, Additional history exists Diabetes [...] this encounter Medical Devices Implanted Type Area Information Technology Specialist Device Identifier Shelf Expiration Date Model / Serial / Lot Terumo Microvention Hydrosoft 3d Implanted:Qty: 1 on 08/16/2018 by Aime Casas MD at [place] [facility] [place] N/A: Head [employer] : INTERVENTIONA 07/05/2023 [id number] / [id number] / [id number] Hd Offset Hum 46x16 - [id number] Implanted:Qty: 1 on 09/28/2020 by Teresa Rehman DO at OR [facility] Left: Shoulder DJO SURGICAL 06/17/2026 [id number] / [id number] documented as of this encounter Advance Directives [...] and were consensually agreed upon. Care Teams Strategic Development Manager Relationship Specialty Start Date End Date March, Sotero Sutton MD [address] [place] [address] PCP - General Family Medicine 12/07/22 documented as of this encounter
--- OUTSIDE RECORDS SUMMARY | 2023-11-15 04:34 | External Medical Summary ---
Author Name Unknown Address Unknown Organization [id number]:[facility] [place] [facility] [place] [address] [place] [address] Laboratory Report Ordering Provider Test Date Status FABIAN DELEON 06/21/2023 14:50:10 Final Observation Date Value Abnormality Reference (Units ) Status BUN 06/21/2023 14:50:10 16 6-20 (mg/dL) Final Creatinine 06/21/2023 14:50:10 1.4 Above high normal 0.5-1.0 (mg/dL) Final Glomerular filtration rate/1.73 sq M.predicted [Volume Rate/Area] in Serum, Plasma or Blood by Creatinine-based formula (CKD-EPI) 06/21/2023 14:50:10 42 Below low normal >=60 (mL/min) Final eGFR is calculated based on the CKD-EPI 2020 equation SODIUM 06/21/2023 14:50:10 141 135-146 (m mol/L) Final Potassium 06/21/2023 14:50:10 3.8 3.5-5.1 (m mol/L) Final Cl 06/21/2023 14:50:10 99 98-107 (mm ol/L) Final CO2 06/21/2023 14:50:10 32 22-32 (mmo l/L) Final Anion gap 06/21/2023 14:50:10 10 7-15 (mmol /L) Final Glucose 06/21/2023 14:50:10 104 70-120 (mg /dL) Final Calcium 06/21/2023 14:50:10 9.5 8.4-10.2 ( mg/dL) Final Performing Location [facility] [place] [facility] [place] [address]. [facility] [address]
--- OUTSIDE RECORDS SUMMARY | 2023-11-15 04:34 | External Medical Summary | Summary of Care ---
Author Name Unknown Organization [facility] Address [address] [facility] [address] [place] [address] Phone [phone] Care Team Providers Care Public Health Representative Name Role Phone Sotero Pizano MD Primary Care Provider [phone] Reason for Visit * Reason Onset Date Comments [facility]: Maintenance 06/21/2023 Encounter Details Date Type Department Care Team Description 06/21/2023 Scheduled Telephone [facility], [facility] [address] [place] [address] Coordinator, [facility] [address] [place] [address] Allergies Active Allergy Reactions Severity Noted Date [...] 03/15/2022 Active Vitamin D (Ergocalciferol) 1.25 MG (81835 UT) Oral Capsule TAKE ONE CAPSULE BY [...] [facility] Telephonic Nurse Follow-Up Call [facility] Subprogram: Focused Care Management (3-9 months) [...] LEFT VENTRICULAR EJECTION FRACTION Remote Patient Monitoring: [facility] Scale: 256.3 Oxygen Needs: NO CHANGE from [...] toe cramps overnight. Aware will route to [facility] for possible Potassium pills. SOB just a [...] to give proper medication dosage Routing to [facility] for possible potassium supplement Follow up tomorrow to check status of weight Disposition: Routed to [facility] and/or [facility] Care Team for further advice Future Visits Scheduled: Future Appointments-next 60 days Date/Time Provider Specialty Dept Phone 06/21/2023 1:30 PM [facility] Gene Chief Transfer And Pumphouse Operator [facility] [phone] 06/28/2023 1:00 PM (Arrive by 12:45 PM) Christo Burk MD Orthopedics [phone] 06/28/2023 2:15 PM (Arrive by 2:00 PM) [facility] Radiology [phone] 07/02/2023 4:00 PM Ladi Joseph RN [facility] [phone] 08/22/2023 3:00 PM (Arrive by 2:45 PM) Aime Casas MD Neurological Surgery [phone] 08/27/2023 3:00 PM (Arrive by 2:45 PM) Brennan Wasserman MD Allergy & Immunology [phone] 10/01/2023 2:00 PM (Arrive by 1:45 PM) Amaya Singleton PA-C Cardiology [phone] 11/23/2023 2:40 PM (Arrive by 2:25 PM) Sotero Pizano MD Family Medicine [phone] 11/27/2023 2:00 PM (Arrive by 1:45 PM) Vernell Kimball PA-C Neurology [phone] 12/10/2023 3:30 PM Nurse [facility] [phone] 04/08/2024 3:15 PM (Arrive by 3:00 PM) Mario Kong MD Hematology Oncology [phone] Laurie Cabrera, RN documented in this encounter Plan of Treatment Upcoming Encounters Date Type Specialty Care Team Description 06/22/2023 Scheduled Telephone [facility] Carbon Plant Grinder, [facility] [address] [place] [address] 06/28/2023 Office Visit Orthopedics Christo Burk MD [address] [place] [phone] 06/28/2023 Imaging Radiology 07/02/2023 Home Visit [facility] Ladi Joseph RN [address] [place] [address] 08/22/2023 Office Visit Neurological Surgery Aime Casas MD [address] [place] [address] 08/27/2023 Office Visit Allergy & Immunology Brennan Wasserman MD [address] [place] [address] 10/01/2023 Office Visit Cardiology Amaya Singleton PA-C [address] [place] [address] 11/23/2023 Office Visit Family Medicine Sotero Pizano MD [address] [place] [address] [place] [address] 11/27/2023 Office Visit Neurology Vernell Kimball PA-C [address] [place] [address] 12/10/2023 Nurse Only Ancillary Nurse [facility] [address] [facility] [address] 04/08/2024 Office Visit Hematology Oncology Mario Kong MD [address] [facility] [place] [address] Health Maintenance Due Date Last Done Comments [...] Over 12/07/2023 12/07/2022 CKD PHOS USE SMARTSET 77066 03/16/202403/05, 03/29/2022, 05/13/2021, Additional history exists CKD HGB USE SMARTSET 80933 04/25/202404/25, 04/25/2023, 04/06/2023, Additional history exists Diabetes [...] this encounter Medical Devices Implanted Type Area Public Area Supervisor Device Identifier Shelf Expiration Date Model / Serial / Lot Terumo Microvention Hydrosoft 3d Implanted:Qty: 1 on 08/16/2018 by Aime Casas MD at [place] [facility] [place]: Head [employer] : INTERVENTIONA 07/05/2023 9980-5175 / [id number] / [id number] Hd Offset Hum 46x16 - [id number] Implanted:Qty: 1 on 09/28/2020 by Teresa Rehman DO at OR [facility] Left: Shoulder DJO SURGICAL 06/17/2026 520-46-31 6 / / [id number] documented as of this encounter Advance Directives [...] and were consensually agreed upon. Care Teams Public Health Representative Relationship Specialty Start Date End Date March, Sotero Sutton MD [address] [place] [address] PCP - General Family Medicine 12/07/22 documented as of this encounter
--- OUTSIDE RECORDS SUMMARY | 2023-11-15 04:34 | External Medical Summary | Summary of Care ---
Author Name Unknown Organization [facility] Address [address] [facility] [place] [address] Phone [phone] Care Team Providers Care Orthopedic Physician Name Role Phone Sotero Pizano MD Primary Care Provider [phone] Reason for Visit * Reason Onset Date Comments [facility]: Maintenance 06/21/2023 Encounter Details Date Type Department Care Team Description 06/21/2023 Scheduled Telephone [facility], [facility] [address] [place] [address] Coordinator, [facility] [address] [place] [address] Hypertensive heart disease with diastolic heart failure [...] 03/15/2022 Active Vitamin D (Ergocalciferol) 1.25 MG (47553 UT) Oral Capsule TAKE ONE CAPSULE BY [...] [facility] Telephonic Nurse Follow-Up Call [facility] Subprogram: Focused Care Management (3-9 months) [...] toe cramps overnight. Aware will route to [facility] for possible Potassium pills. SOB just a [...] to give proper medication dosage Routing to [facility] for possible potassium supplement Follow up tomorrow to check status of weight Disposition: Routed to [facility] and/or [facility] Care Team for further advice Future Visits Scheduled: Future Appointments-next 60 days Date/Time Provider Specialty Dept Phone 06/21/2023 1:30 PM [place] [facility] Help Desk Manager [facility] [phone] 06/28/2023 1:00 PM (Arrive by 12:45 PM) Christo Burk MD Orthopedics [phone] 06/28/2023 2:15 PM (Arrive by 2:00 PM) [email or web address] Radiology [phone] 07/02/2023 4:00 PM Ladi Joseph RN [facility] [phone] 08/22/2023 3:00 PM (Arrive by 2:45 PM) Aime Casas MD Neurological Surgery [phone] 08/27/2023 3:00 PM (Arrive by 2:45 PM) Brennan Wasserman MD Allergy & Immunology [phone] 10/01/2023 2:00 PM (Arrive by 1:45 PM) Amaya Singleton PA-C Cardiology [phone] 11/23/2023 2:40 PM (Arrive by 2:25 PM) Sotero Pizano MD Family Medicine [phone] 11/27/2023 2:00 PM (Arrive by 1:45 PM) Vernell Kimball PA-C Neurology [phone] 12/10/2023 3:30 PM Nurse [facility] [phone] 04/08/2024 3:15 PM (Arrive by 3:00 PM) Mario Kong MD Hematology Oncology [phone] Laurie Cabrera, RN documented in this encounter Plan of Treatment Upcoming Encounters Date Type Specialty Care Team Description 06/22/2023 Scheduled Telephone [facility] Coal Drier Operator, [facility] [address] [place] [address] 06/28/2023 Office Visit Orthopedics Christo Burk MD [address] [place] [address] 06/28/2023 Imaging Radiology 07/02/2023 Home Visit [facility] Ladi Joseph RN [address] [place] [address] 08/22/2023 Office Visit Neurological Surgery Aime Casas MD [address] [place] [address] 08/27/2023 Office Visit Allergy & Immunology Brennan Wasserman MD [address] [place] [address] 10/01/2023 Office Visit Cardiology Amaya Singleton PA-C [address] [place] [address] 11/23/2023 Office Visit Family Medicine Sotero Pizano MD [address] [place] [address] 11/27/2023 Office Visit Neurology Vernell Kimball PA-C [address] [facility] [place], [place] [phone] 12/10/2023 Nurse Only [facility] Nurse Annual Wellness [address] [place] [address] 04/08/2024 Office Visit Hematology Oncology Mario Kong MD [address] [place] [address] Scheduled Orders Name Type Priority Associated Diagnoses [...] Over 12/07/2023 12/07/2022 CKD PHOS USE SMARTSET 44949 03/16/202403/05, 03/29/2022, 05/13/2021, Additional history exists CKD HGB USE SMARTSET 12579 04/25/202404/25, 04/25/2023, 04/06/2023, Additional history exists Diabetes [...] this encounter Medical Devices Implanted Type Area Vp Corporate Development Device Identifier Shelf Expiration Date Model / Serial / Lot Embrane Microvention Hydrosoft 3d Implanted:Qty: 1 on 08/16/2018 by Aime Casas MD at OR [facility] N/A: Head [employer] : INTERVENTIONA 07/05/2023 3435-8851 / [id number] / [id number] Hd Offset Hum 46x16 - [id number] Implanted:Qty: 1 on 09/28/2020 by Teresa Rehman DO at OR [facility] Left: Shoulder DJO SURGICAL 06/17/2026 520-46-31 [id number] documented as of this encounter Visit Diagnoses [...] and were consensually agreed upon. Care Teams Orthopedic Physician Relationship Specialty Start Date End Date March, Sotero Sutton MD [address] [place] [address] PCP - General Family Medicine 12/07/22 documented as of this encounter
--- OUTSIDE RECORDS SUMMARY | 2023-11-15 04:34 | External Medical Summary | Summary of Care ---
Author Name Unknown Organization [facility] Address [address] [facility] [place] [address] Phone [phone] Care Team Providers Care Certified Orthoptist Name Role Phone Sotero Pizano MD Primary Care Provider Reason for Visit * Reason Onset Date Comments [facility]: Maintenance 06/22/2023 Encounter Details Date Type Department Care Team Description 06/22/2023 Scheduled Telephone [facility], [facility] [address] [place] [address] Coordinator, [facility] [address] [place] [address] Allergies Active Allergy Reactions Severity Noted Date [...] as of this encounter (statuses as of 06/22/2023) Medications Medication Sig Dispensed Refills Start Date [...] 03/15/2022 Active Vitamin D (Ergocalciferol) 1.25 MG (45996 UT) Oral Capsule TAKE ONE CAPSULE BY [...] as of this encounter (statuses as of 06/22/2023) Active Problems Problem Noted Date Iron deficiency [...] as of this encounter (statuses as of 06/22/2023) Resolved Problems Problem Noted Date Resolved Date [...] as of this encounter (statuses as of 06/22/2023) Immunizations Name Administration Dates Next Due COVID-19 [...] Telephone Encounter - Laurie Cabrera RN - 06/22/2023 10:20 AM EDT Images from the original note were not included. [facility] Telephonic Nurse Follow-Up Call [facility] Subprogram: Focused Care Management (3-9 months) [...] EJECTION FRACTION Remote Patient Monitoring: [facility] Scale: 255.4 Oxygen Needs: NO CHANGE from baseline supplemental oxygen needs, 2 LPM at HS only DME Needs: NO DME needs identified Medications: New medication(s) added: DTP completed x 2 days, and had IV Lasix at acute 06/20 Subjective: Condition Status: Symptoms resolved and back to baseline Current Concerns: Per patient, doing well today. Her weight is down, had large BP last evening and another this AM. Feels much better. No SOB or swelling noted Reviewed upcoming appts for next week, including [facility] RNCM visit on 07/02 @4pm Aware to call [facility] with any new or returning symptoms Disposition: Issue resolved. All appropriate follow up scheduled. Future Visits Scheduled: Future Appointments-next 60 days Date/Time Provider Specialty Dept Phone 06/22/2023 3:[address] [facility] Insulation Worker Furnace Installer [facility] [phone] 06/28/2023 1:00 PM (Arrive by 12:45 PM) Christo Burk MD Orthopedics [phone] 06/28/2023 2:15 PM (Arrive by 2:00 PM) [address] Radiology [phone] 07/02/2023 4:00 PM Ladi Joseph RN [facility] [phone] 08/22/2023 3:00 PM (Arrive by 2:45 PM) Aime Casas MD Neurological Surgery [phone] 08/27/2023 3:00 PM (Arrive by 2:45 PM) Brennan Wasserman MD Allergy & Immunology [phone] 10/01/2023 2:00 PM (Arrive by 1:45 PM) Amaya Singleton PA-C Cardiology [phone] 11/23/2023 2:40 PM (Arrive by 2:25 PM) Sotero Pizano MD Family Medicine [phone] 11/27/2023 2:00 PM (Arrive by 1:45 PM) Vernell Kimball PA-C Neurology [phone] 12/10/2023 3:30 PM Nurse Annual [facility] [phone] 04/08/2024 3:15 PM (Arrive by 3:00 PM) Mario Kong MD Hematology Oncology [phone] Laurie Cabrera, RN documented in this encounter Plan of Treatment Upcoming Encounters Date Type Specialty Care Team Description 06/28/2023 Office Visit Orthopedics Christo Burk MD [address] [place] [address] 06/28/2023 Imaging Radiology 07/02/2023 Home Visit [facility] Ladi Joseph RN [address] [place] [address] 08/22/2023 Office Visit Neurological Surgery Aime Casas MD [address] [place], [place] [phone] 08/27/2023 Office Visit Allergy & Immunology Brennan Wasserman MD [address] [place] [address] 10/01/2023 Office Visit Cardiology Amaya Singleton PA-C [address] [place] [address] 11/23/2023 Office Visit Family Medicine Sotero Pizano MD [address] [place] [address] 11/27/2023 Office Visit Neurology Vernell Kimball PAJeimyC [address] [place] [address] 12/10/2023 Nurse Only Patito Plato, Nurse [facility] [address] [place] [address] 04/08/2024 Office Visit Hematology Oncology Mario Kong MD [address] [place] [address] Health Maintenance Due Date Last Done Comments [...] Additional history exists CKD PHOS USE SMARTSET 68895 03/16/202403/05, 03/29/2022, 05/13/2021, Additional history exists CKD HGB USE SMARTSET 12392 04/25/202404/25, 04/25/2023, 04/06/2023, Additional history exists Diabetes [...] this encounter Medical Devices Implanted Type Area Template Inspector Device Identifier Shelf Expiration Date Model / Serial / Lot 3P [employer] Microvention Hydrosoft 3d Implanted:Qty: 1 on 08/16/2018 by Aime Casas MD at [place] [facility] N/A: Head [employer] : INTERVENTIONA 07/05/2023 [id number] / [id number] / [id number] Hd Offset Hum 46x16 - [id number] Implanted:Qty: 1 on 09/28/2020 by Teresa Rehman, at OR [facility] Left: Shoulder DJO SURGICAL 06/17/2026 520-46-31 [id number] documented as of this encounter Advance Directives [...] and were consensually agreed upon. Care Teams Certified Orthoptist Relationship Specialty Start Date End Date March, Sotero Sutton MD [address] [place] [place] [address] PCP - General Family Medicine 12/07/22 documented as of this encounter
--- OUTSIDE RECORDS SUMMARY | 2023-11-15 04:34 | External Medical Summary | Summary of Care ---
Author Name Unknown Organization [facility] Address [address] [place] [address] Phone [phone] Care Team Providers Care Sales Representative Health Insurance Name Role Phone Sotero Pizano MD Primary Care Provider [phone] Reason for Visit * Reason Comments Outpatient Testing Encounter Details Date Type Department Care Team Description 06/21/2023 Laboratory Laboratory, [place] [address] [place] [address] [place] [address] [place] [address] Hypertensive heart disease with diastolic heart failure and stage 3b chronic kidney disease, unspecified HF chronicity (HCC) Allergies Active Allergy Reactions Severity Noted [...] 03/15/2022 Active Vitamin D (Ergocalciferol) 1.25 MG (89544 UT) Oral Capsule TAKE ONE CAPSULE BY [...] Team Description 06/22/2023 Scheduled Telephone [facility] Motion Picture Narrator, Linda Zimmerman [address] [place] [address] 06/28/2023 Office Visit Orthopedics Christo Burk MD [address] [place] [address] 06/28/2023 Imaging Radiology 07/02/2023 Home Visit [facility] Ladi Joseph RN [address] [place] [address] 08/22/2023 Office Visit Neurological Surgery Aime Casas MD [address] [place] [address] 08/27/2023 Office Visit Allergy & Immunology Brennan Wasserman MD [address] [place] [address] 10/01/2023 Office Visit Cardiology Amaya Singleton PA-C [address] [place] [address] 11/23/2023 Office Visit Family Medicine Sotero Pizano MD [address] [place] [address] 11/27/2023 Office Visit Neurology Vernell Kimball PA-C [address] [facility] [place] [phone] 12/10/2023 Nurse Only Ancillary Nurse Carly [facility] [address] [facility] [place] [address] 04/08/2024 Office Visit Hematology Oncology Mario Kong MD [address] [facility] [place], [place] [address] Pending Results Name Type Priority Associated Diagnoses Date /Time BASIC METABOLIC PANEL Lab Routine Hypertensive heart disease with diastolic heart failure and stage 3b chronic kidney disease, unspecified HF chronicity (HCC) 06/21/2023 2:50 PM EDT Health Maintenance Due Date Last [...] Over 12/07/2023 12/07/2022 CKD PHOS USE SMARTSET 47782 03/16/202403/05, 03/29/2022, 05/13/2021, Additional history exists CKD HGB USE SMARTSET 16732 04/25/202404/25, 04/25/2023, 04/06/2023, Additional history exists Diabetes [...] encounter Medical Devices Implanted Type Area Home Delivery Driver Device Identifier Shelf Expiration Date Model / Serial / Lot Terumo Microvention Hydrosoft 3d Implanted:Qty: 1 on 08/16/2018 by Aime Casas MD at OR [facility] [place] [place] N/A: Head [employer] : INTERVENTIONA 07/05/2023 [id number] / [id number] / [id number] Hd Offset Hum 46x16 - [id number] Implanted:Qty: 1 on 09/28/2020 by Teresa Rehman DO at OR [facility] Left: Shoulder DJO SURGICAL 06/17/2026 520-46-31 6 / / [id number] documented as of this encounter Visit Diagnoses Diagnosis Hypertensive heart disease with diastolic heart failure and stage 3b chronic kidney disease, unspecified HF chronicity (HCC) documented in this encounter Advance Directives [...] were consensually agreed upon. Care Teams Sales Representative Health Insurance Relationship Specialty Start Date End Date March, Sotero Sutton MD [address] [place] [address] PCP - General Family Medicine 12/07/22 documented as of this encounter
[2023-11-15] MEDS ORDERED: ALBUTEROL HFA 8 GM INHALER INH ONE (04:35)
--- OUTSIDE RECORDS SUMMARY | 2023-11-15 04:35 | External Medical Summary | Summary of Care ---
Author Name Unknown Organization [facility] Address [address] [facility] [place] [address] Phone [phone] Care Team Providers Care Patternmaker Apprentice Metal Name Role Phone Sotero Pizano MD Primary Care Provider [phone] Reason for Visit * Reason Onset Date Comments [facility]: Maintenance 06/19/2023 Encounter Details Date Type Department Care Team Description 06/19/2023 Scheduled Telephone [facility], [facility] [address] [place] [address] Coordinator, [facility] [address] [place] [address] Allergies Active Allergy Reactions Severity Noted Date [...] as of this encounter (statuses as of 06/19/2023) Medications Medication Sig Dispensed Refills Start Date [...] 03/15/2022 Active Vitamin D (Ergocalciferol) 1.25 MG (42284 UT) Oral Capsule TAKE ONE CAPSULE BY [...] AT BEDTIME 90 Tablet 3 03/05/2023 Active Torsemide 10 MG Oral Tablet (Demadex)Indication s:Chronic heart failure with preserved ejection fraction (HCC) 20 mg in the morning 10 mg in the evening 90 Tablet 3 03/28/2023 Active Metoprolol Succinate ER 25 MG Oral [...] morning. 34 Tablet 11 06/02/2023 Active Magnesium 200 MG Oral Tablet ChewableIndications :Chronic kidney disease, stage 3b (HCC) Take 400 mg by mouth in the morning. 180 Tablet 3 06/02/2023 Active Magnesium 400 MG Oral Tablet Take 400 mg by mouth in the morning. 90 Tablet 3 06/04/2023 Active Clindamycin HCl 300 MG Oral CapsuleIndications: Sialadenitis Take 1 Capsule by mouth in the morning and 1 Capsule at noon and 1 Capsule in the evening and 1 Capsule before bedtime. Do all this for 10 days. 40 Capsule 0 06/10/2023 06/20/2023 Active Pregabalin 25 MG Oral Capsule (Lyrica) Take 1 capsule in the am, and 2 capsules in pm. 90 Capsule 3 06/18/2023 Active documented as of this encounter (statuses as of 06/19/2023) Active Problems Problem Noted Date Iron deficiency [...] as of this encounter (statuses as of 06/19/2023) Resolved Problems Problem Noted Date Resolved Date [...] as of this encounter (statuses as of 06/19/2023) Immunizations Name Administration Dates Next Due COVID-19 [...] Telephone Encounter - Laurie Cabrera RN - 06/19/2023 3:30 PM EDT Ladi Joseph RNCM, will see patient today at 4pm Patient called and aware Follow up calls scheduled Josefina Cabrera RN, BSN [facility] Intake Triage Coordinator [phone] * Telephone Encounter - Laurie Cabrera RN - 06/19/2023 3:23 PM EDT Communication Note Name: Kritsen Garcia Situation: on 06/18, started Demadex 20 mg HS, and 40 mg this AM, then back to normal dosage or 20 mg AM, 10 mg PM Today, patient remains SOB with conversation and seated. + Abdominal Bloating, + cough, RA Sat 98% O2 @ 2lplm at HS only Background: Afib, CHF, Cerebral Aneurysm, Obst Sleep Apnea, Hypoxemia, Anemia Obestiy, Fibromyalgia, Lymphedema Assessment: Fluid Overload, Respiratory distress Recommendation: Care team availability: Acute nurse: Acute Home visit for probable IV Lasix MIH: CARLOTTA Cabrera RN, BSN [facility] Intake Triage Coordinator [phone] * Telephone Encounter - Laurie Cabrera RN - 06/19/2023 3:22 PM EDT Reached out to Nori Downing, can I use RNCM on care team for her 4p acute slot to see patient today, ? IV lasix Nori will reach out to RNCM Josefina Cabrera RN, BSN [facility] Intake Triage Coordinator [phone] * Telephone Encounter - Xu Donaldson PA-C - 06/19/2023 2:55 PM EDT [facility] Remote Medical Command Phone Encounter Thank you for your assistance in the care of this patient today. Recommendations: Please have acute visit for onsite evaluation and possible IV lasix. This note was prepared with the help of fluency and if there is any mis-spelled words , sentences or something which doesn't represent the content of the subject that could be technical error and please refer to the author for clarification. * Telephone Encounter - Laurie Cabrera RN - 06/19/2023 1:09 PM EDT Return call to patient after waiting 3 hrs after she took AM does of Torsemide 40 mg She only urinated x2, much less than she usually does Weight is up now, 1 lbs, but she ate breakfast and lunch Still SOB with talking Routing to [facility] [place] since increase of Torsemide for last 2 doses not beneficial in bringing down weight or helping SOB Josefina Cabrera RN, BSN [facility] Intake Triage Coordinator [phone] * Telephone Encounter - Laurie Cabrera RN - 06/19/2023 10:17 AM EDT Images from the original note were not included. [facility] Telephonic Nurse Follow-Up Call [facility] Subprogram: Focused Care Management (3-9 months) Follow Up Call Type: 24 hour follow up Acute issue requiring follow-up call: Heart Failure Exacerbation Objective: 06/10/2023 3:41 PM 06/01/2023 1:50 PM 05/25/2023 2:04 PM 05/23/2023 12:44 PM 05/21/2023 1:30 PM VIT[facility] ACROSS ENCOUNTERS BP 122/70 118/68 110/70 110/58 108/70 Pulse 79 66 62 80 66 Weight 116 kg 117.8 kg 117.6 kg 118.4 kg BMI 41.9 43.43 BMI 41.92 kg/m2 43.2 kg/m2 43.13 kg/m2 43.43 kg/m2 Lab Results Component Value Date PROTEIN [...] EJECTION FRACTION Remote Patient Monitoring: AMC Scale: yes Oxygen Needs: NO supplemental oxygen needs identified , wears O2 2lpm at HS only, DME Needs: NO DME needs identified Medications: New medication(s) added: on 06/18, started Demadex 20 mg HS, and 40 mg this AM, then back to normal dosage or 20 mg AM, 10 mg PM Subjective: Condition Status: No change in symptoms Current Concerns: Pt reports continuing "difficulty catching her breath", + cough, no mucus. Belly still feels bloated. Pulse ox 98% on RA, HR 67. Wears O2 @2lpm at HS only, She took the 20 mg demadex last night, and just took the 40 mg this AM about 30 mins ago Agreed to call patient back at 1pm today to see if the 40 mg AM dose helped her symptoms, Disposition: Follow up call scheduled for tomorrow with LEAD MECHANIC School Library Media Specialist /vault manager, today at 1pm Future Visits Scheduled: Future Appointments-next 60 days Date/Time Provider Specialty Dept Phone 06/19/2023 2:30 PM [facility] [employer] Library Media Specialist [facility] [phone] 06/19/2023 3:30 PM Laboratory [facility] [phone] 06/20/2023 10:30 AM [facility] [employer] Media Specialist [facility] [phone] 06/28/2023 1:00 PM (Arrive by 12:45 PM) Christo Burk MD Orthopedics [phone] 06/28/2023 2:15 PM (Arrive by 2:00 PM) [email or web address] Radiology [phone] 07/02/2023 4:00 PM Ladi Joseph RN [facility] [phone] 08/22/2023 3:00 PM (Arrive by 2:45 PM) Aime Casas MD Neurological Surgery [phone] 08/27/2023 3:00 PM (Arrive by 2:45 PM) Brennan Wasserman MD Allergy & Immunology [phone] 10/01/2023 2:00 PM (Arrive by 1:45 PM) Amaya Singleton PA-C Cardiology [phone] 11/23/2023 2:40 PM (Arrive by 2:25 PM) Sotero Pizano MD Family Medicine [phone] 11/27/2023 2:00 PM (Arrive by 1:45 PM) Vernell Kimball PA-C Neurology [phone] 12/10/2023 3:30 PM Nurse Annual Wellness [facility] [phone] 04/08/2024 3:15 PM (Arrive by 3:00 PM) Mario Kong MD Hematology Oncology [phone] Laurie Cabrera RN documented in this encounter Plan of Treatment Upcoming Encounters Date Type Specialty Care Team Description 06/19/2023 Home Visit [facility] Ladi Joseph RN [address] [place] [address] 06/20/2023 Scheduled Telephone [facility] Tram Inspector, [facility] [address] [place] [address] 06/20/2023 Scheduled Telephone [facility] Tram Inspector, [facility] [address] [place] [address] 06/28/2023 Office Visit Orthopedics Christo Burk MD [address] [place] [address] 06/28/2023 Imaging Radiology 07/02/2023 Home Visit [facility] Ladi Joseph RN [address] [place] [address] 08/22/2023 Office Visit Neurological Surgery Aime Casas MD [address] [place] [address] 08/27/2023 Office Visit Allergy & Immunology Brennan Wasserman MD [address] [place] [address] 10/01/2023 Office Visit Cardiology Amaya Singleton PA-C [address] [place] [address] 11/23/2023 Office Visit Family Medicine Sotero Pizano MD [address] [place] [address] 11/27/2023 Office Visit Neurology Vernell Kimball PA-C [address] [place] [phone] 12/10/2023 Nurse Only Ancillary Nurse Carly Annual Wellness [address] [place] [address] 04/08/2024 Office Visit Hematology Oncology Mario Kong MD [address] [facility] [place] [address] Health Maintenance Due Date Last Done Comments [...] Over 12/07/2023 12/07/2022 CKD PHOS USE SMARTSET 37190 03/16/202403/05, 03/29/2022, 05/13/2021, Additional history exists CKD HGB USE SMARTSET 80885 04/25/202404/25, 04/25/2023, 04/06/2023, Additional history exists Diabetes [...] this encounter Medical Devices Implanted Type Area Stripper And Taper Device Identifier Shelf Expiration Date Model / Serial / Lot Terumo Microvention Hydrosoft 3d Implanted:Qty: 1 on 08/16/2018 by Aime Casas MD [place] [facility] [place] Head [employer] : INTERVENTIONA 07/05/2023 [id number] / [id number] / [id number] Hd Offset Hum 46x16 - [id number] Implanted:Qty: 1 on 09/28/2020 by Teresa Rehman DO at OR [facility] Left: Shoulder DJO SURGICAL 06/17/2026 520-46-31 6 / / [id number] documented as of this encounter Advance Directives [...] and were consensually agreed upon. Care Teams Patternmaker Apprentice Metal Relationship Specialty Start Date End Date March, Sotero Sutton MD [address] [place] [address] PCP - General Family Medicine 12/07/22 documented as of this encounter
--- OUTSIDE RECORDS SUMMARY | 2023-11-15 04:35 | External Medical Summary | Summary of Care ---
Author Name Unknown Organization [facility] Address [address] [facility] [place] [address] Phone [phone] Care Team Providers Care Wire Coiner Name Role Phone Sotero Pizano MD Primary Care Provider [phone] Reason for Visit * Reason Onset Date Comments [facility]: Maintenance 06/19/2023 Encounter Details Date Type Department Care Team Description 06/19/2023 Scheduled Telephone [facility], [facility] [address] [place] [place] [address] Coordinator, [facility] [address] [place] [address] Allergies Active Allergy Reactions Severity Noted Date [...] 03/15/2022 Active Vitamin D (Ergocalciferol) 1.25 MG (64714 UT) Oral Capsule TAKE ONE CAPSULE BY [...] Donaldson PA-C - 06/19/2023 2:55 PM EDT [facility] Remote Medical Command Phone Encounter [...] lunch Still SOB with talking Routing to [facility] [place] since increase of Torsemide for last 2 doses not beneficial in bringing down weight or helping SOB Josefina Cabrera RN, BSN [facility] Intake Triage Coordinator [phone] * Telephone Encounter - Laurie Cabrera RN - 06/19/2023 10:17 AM EDT Images from the original note were not included. [facility] Telephonic Nurse Follow-Up Call [facility] Subprogram: Focused Care Management (3-9 [...] Follow up call scheduled for tomorrow with MORTGAGE UNDERWRITER Carrier Associate /catalyst operator, today at 1pm Future Visits Scheduled: Future Appointments-next 60 days Date/Time Provider Specialty Dept Phone 06/19/2023 2:30 PM [facility] [phone] 06/19/2023 3:30 PM Laboratory [facility] [phone] 06/20/2023 10:30 AM [facility] [phone] 06/28/2023 1:00 PM (Arrive by 12:45 PM) Christo Burk MD Orthopedics [phone] 06/28/2023 2:15 PM (Arrive by 2:00 PM) [facility] Radiology [phone] 07/02/2023 4:00 PM Ladi Joseph RN [facility] [phone] 08/22/2023 3:00 PM (Arrive by 2:45 PM) Aime Casas MD Neurological Surgery [phone] 08/27/2023 3:00 PM (Arrive by 2:45 PM) Brennan Wasserman MD Allergy & Immunology [phone] 10/01/2023 2:00 PM (Arrive by 1:45 PM) Amaya Singleton PA-C Cardiology [phone] 11/23/2023 2:40 PM (Arrive by 2:25 PM) Sotero Pizano MD Family Medicine [phone] 11/27/2023 2:00 PM (Arrive by 1:45 PM) Vernell Kimball PA-C Neurology [phone] 12/10/2023 3:30 PM Nurse Annual Wellness [facility] [phone] 04/08/2024 3:15 PM (Arrive by 3:00 PM) Mario Kong MD Hematology Oncology [phone] Laurie Cabrera, JEREMY documented in this encounter Plan of Treatment Upcoming Encounters Date Type Specialty Care Team Description 06/19/2023 Laboratory Laboratory [place], Laboratory [address] [place] [address] 06/20/2023 Scheduled Telephone [facility] Rivet Thrower, Linda Zimmerman [address] [place] [address] 06/28/2023 Office Visit Orthopedics Christo Burk MD [address] [facility] [address] 06/28/2023 Imaging Radiology 07/02/2023 Home Visit [facility] Ladi Joseph RN [address] [place] [address] 08/22/2023 Office Visit Neurological Surgery Aime Casas MD [address] [place] [address] 08/27/2023 Office Visit Allergy & Immunology Brennan Wasserman MD [address] [place] [address] 10/01/2023 Office Visit Cardiology Amaya Singleton PA-C [address] [facility] [place] [address] 11/23/2023 Office Visit Family Medicine Sotero Pizano MD [address] [place] [address] 11/27/2023 Office Visit Neurology Vernell Kimball PA-C [address] [place] [phone] 12/10/2023 Nurse Only Ancillary Nurse Carly [facility] [address] [facility] [place] [address] 04/08/2024 Office Visit Hematology Oncology Mario Kong MD [address] [facility] [address] Health Maintenance Due Date Last Done Comments [...] Over 12/07/2023 12/07/2022 CKD PHOS USE SMARTSET 00935 03/16/202403/05, 03/29/2022, 05/13/2021, Additional history exists CKD HGB USE SMARTSET 23080 04/25/202404/25, 04/25/2023, 04/06/2023, Additional history exists Diabetes [...] this encounter Medical Devices Implanted Type Area Web Analyst Device Identifier Shelf Expiration Date Model / Serial / Lot Terumo Microvention Hydrosoft 3d Implanted:Qty: 1 on 08/16/2018 by Aime Casas MD at OR [facility] N/A: Head [employer] : INTERVENTIONA 07/05/2023 [id number] / [id number] / [id number] Hd Offset Hum 46x16 - [id number] Implanted:Qty: 1 on 09/28/2020 by Teresa Rehman DO at OR [facility] Left: Shoulder DJO SURGICAL 06/17/2026 520-46-31 6 / / [id number] documented as of this encounter Advance Directives [...] and were consensually agreed upon. Care Teams Wire Coiner Relationship Specialty Start Date End Date March, Sotero Sutton MD [address] [place] [address] PCP - General Family Medicine 12/07/22 documented as of this encounter
--- OUTSIDE RECORDS SUMMARY | 2023-11-15 04:35 | External Medical Summary | Summary of Care ---
Author Name Unknown Organization [facility] Address [address] [facility] [place] [address] Phone [phone] Care Team Providers Care General Forecaster Name Role Phone Sotero Pizano MD Primary Care Provider [phone] Reason for Visit * Reason Onset Date Comments [facility]: Maintenance 06/19/2023 Encounter Details Date Type Department Care Team Description 06/19/2023 Scheduled Telephone [facility], [facility] [address] [place] [address] Coordinator, [facility] [address] [place] [address] Allergies Active Allergy Reactions Severity Noted Date [...] 03/15/2022 Active Vitamin D (Ergocalciferol) 1.25 MG (17230 UT) Oral Capsule TAKE ONE CAPSULE BY [...] 06/19/2023 3:23 PM EDT Communication Note Name: Kristen Garcia Situation: on 06/18, started Demadex 20 [...] Home visit for probable IV Lasix MIH: NA Josefina Cabrera RN, BSN [facility] Intake Triage Coordinator [phone] * Telephone Encounter - Laurie Cabrera RN - 06/19/2023 3:22 PM EDT Reached out to Nori Downing, can I use RNCM on care team for her 4p acute slot to see patient today, ? IV lasdorene Julio will reach out to RNCM Josefina Cabrera RN, BSN [facility] Intake Triage Coordinator [phone] * Telephone Encounter - Xu Donaldson PA-C [...] lunch Still SOB with talking [place] [facility] [place] increase of Torsemide for last 2 doses not beneficial in bringing down weight or helping SOB Josefina Cabrera RN, BSN [facility] Intake Triage Coordinator [phone] * Telephone Encounter - Laurie Cabrera RN - 06/19/2023 10:17 AM EDT Images from the original note were not included. [facility] Telephonic Nurse Follow-Up Call [facility] Subprogram: Focused Care Management (3-9 months) Follow [...] Follow up call scheduled for tomorrow with REVIEW MANAGER Meter Readers Supervisor /material preparation worker, today at 1pm Future Visits Scheduled: Future Appointments-next 60 days Date/Time Provider Specialty Dept Phone 06/19/2023 2:30 PM [facility] Meter Readers Supervisor [facility] [phone] 06/19/2023 3:30 PM Laboratory [place] [facility] [phone] 06/20/2023 10:30 AM [facility] Meter Readers Supervisor [facility] [phone] 06/28/2023 1:00 PM (Arrive by 12:45 PM) Christo Burk MD Orthopedics [phone] 06/28/2023 2:15 PM (Arrive by 2:00 PM) [facility] Radiology [phone] 07/02/2023 4:00 PM Ladi Joseph RN [facility] [phone] 08/22/2023 3:00 PM (Arrive by 2:45 PM) Aime Casas MD Neurological Surgery [phone] 08/27/2023 3:00 PM (Arrive by 2:45 PM) Brennan Wasserman MD Allergy & Immunology [phone] 10/01/2023 2:00 PM (Arrive by 1:45 PM) Amaya Singleton PA-C Cardiology [phone] 11/23/2023 2:40 PM (Arrive by 2:25 PM) Sotero Pizano MD Family Medicine [phone] 11/27/2023 2:00 PM (Arrive by 1:45 PM) Vernell Kimball PA-C Neurology [phone] 12/10/2023 3:30 PM Nurse Annual Wellness [place] Ancillary [phone] 04/08/2024 3:15 PM (Arrive by 3:00 PM) Mario Kong MD Hematology Oncology [phone] Laurie Cabrera, RN documented in this encounter Plan of Treatment Upcoming Encounters Date Type Specialty Care Team Description 06/19/2023 Laboratory Laboratory [place], [facility] [address] [place] [address] Arrived 06/20/2023 Scheduled Telephone [facility] Gourmet Coffee Attendant, Linda Zimmerman [address] [place] [address] 06/28/2023 Office Visit Orthopedics Christo Burk MD [address] [place] [address] 06/28/2023 Imaging Radiology 07/02/2023 Home Visit [facility] Ladi Joseph RN [address] [place] [address] 08/22/2023 Office Visit Neurological Surgery Aime Casas MD [address] [place] [address] 08/27/2023 Office Visit Allergy & Immunology Brennan Wasserman MD [address] [place] [address] 10/01/2023 Office Visit Cardiology Amaya Singleton PA-C [address] [place] [address] 11/23/2023 Office Visit Family Medicine Sotero Pizano MD [address] [place] [address] 11/27/2023 Office Visit Neurology Vernell Kimball PA-C [address] [place] [address] 12/10/2023 Nurse Only [facility] Nurse Annual Wellness [address] [place] [address] 04/08/2024 Office Visit Hematology Oncology Mario Kong MD [address] [place] [address] Health Maintenance Due Date Last Done Comments [...] Over 12/07/2023 12/07/2022 CKD PHOS USE SMARTSET 29114 03/16/202403/05, 03/29/2022, 05/13/2021, Additional history exists CKD HGB USE SMARTSET 42477 04/25/202404/25, 04/25/2023, 04/06/2023, Additional history exists Diabetes [...] this encounter Medical Devices Implanted Type Area Php Web Developer Device Identifier Shelf Expiration Date Model / Serial / Lot Terumo Microvention Hydrosoft 3d Implanted:Qty: 1 on 08/16/2018 by Aime Casas MD at OR [facility] N/A: Head [employer] : INTERVENTIONA 07/05/2023 [id number] / [id number] / [id number] Hd Offset Hum 46x16 - [id number] Implanted:Qty: 1 on 09/28/2020 by Teresa Rehman, at OR [facility] Left: Shoulder DJO SURGICAL 06/17/2026 [id number] documented as of this encounter Advance Directives [...] and were consensually agreed upon. Care Teams General Forecaster Relationship Specialty Start Date End Date March, Sotero Sutton MD [address] [place], [place] [address] PCP - General Family Medicine 12/07/22 documented as of this encounter
--- OUTSIDE RECORDS SUMMARY | 2023-11-15 04:35 | External Medical Summary | Summary of Care ---
Author Name Unknown Organization [facility] Address [address] [facility] [place] [address] Phone [phone] Care Team Providers Care Rangelands Conservation Laborer Name Role Phone Sotero Pizano MD Primary Care Provider [phone] Reason for Visit * Reason Onset Date Comments Encounter Created in Error 06/20/2023 Encounter Details Date Type Department Care Team Description 06/20/2023 Scheduled Telephone [facility] [place], [facility] [address] [facility] [place] [address] Coordinator, [facility] [address] [place] [address] Allergies Active Allergy Reactions Severity Noted Date [...] as of this encounter (statuses as of 06/20/2023) Medications Medication Sig Dispensed Refills Start Date [...] 03/15/2022 Active Vitamin D (Ergocalciferol) 1.25 MG (33470 UT) Oral Capsule TAKE ONE CAPSULE BY [...] the morning. 34 Tablet 11 06/02/2023 Active Clindamycin HCl 300 MG Oral CapsuleIndications: Sialadenitis Take 1 Capsule by mouth in the morning and 1 Capsule at noon and 1 Capsule in the evening and 1 Capsule before bedtime. Do all this for 10 days. 40 Capsule 0 06/10/2023 06/20/2023 Active Magnesium Oxide -Mg Supplement 400 (240 [...] as of this encounter (statuses as of 06/20/2023) Active Problems Problem Noted Date Iron deficiency [...] as of this encounter (statuses as of 06/20/2023) Resolved Problems Problem Noted Date Resolved Date [...] as of this encounter (statuses as of 06/20/2023) Immunizations Name Administration Dates Next Due COVID-19 [...] Telephone Encounter - Laurie Cabrera RN - 06/20/2023 1:01 PM EDT Duplicate, error documented in this encounter Plan of Treatment Upcoming Encounters Date Type Specialty Care Team Description 06/21/2023 Scheduled Telephone [facility] F[place] Gate Assembler, [facility] [address] [place] [address] 06/28/2023 Office Visit Orthopedics Christo Burk MD [address] [place] [address] 06/28/2023 Imaging Radiology 07/02/2023 Home Visit [facility] Ladi Joseph RN [address] [place] [address] 08/22/2023 Office Visit Neurological Surgery Aime Casas MD [address] [place] [address] 08/27/2023 Office Visit Allergy & Immunology Brennan Wasserman MD [address] [place] [address] 10/01/2023 Office Visit Cardiology Amaya Singleton PA-C [address] [place] [address] 11/23/2023 Office Visit Family Medicine Sotero Pizano MD [address] [place] [address] 11/27/2023 Office Visit Neurology Vernell Kimball PA-C [address] [place] [address] 12/10/2023 Nurse Only Ancillary [place], [facility] [address] [facility] [address] 04/08/2024 Office Visit Hematology Oncology Mario Kong MD [address] [place] [address] Health Maintenance Due Date Last Done Comments [...] Over 12/07/2023 12/07/2022 CKD PHOS USE SMARTSET 34257 03/16/202403/05, 03/29/2022, 05/13/2021, Additional history exists CKD HGB USE SMARTSET 53661 04/25/202404/25, 04/25/2023, 04/06/2023, Additional history exists Diabetes [...] this encounter Medical Devices Implanted Type Area Dock Superintendent Device Identifier Shelf Expiration Date Model / Serial / Lot Terumo Microvention Hydrosoft 3d Implanted:Qty: 1 on 08/16/2018 by Aime Casas MD at OR [facility] N/A: Head [employer] : INTERVENTIONA 07/05/2023 [id number] / [id number] / [id number] Hd Offset Hum 46x16 - [id number] Implanted:Qty: 1 on 09/28/2020 by Teresa Rehman DO at OR [facility] Left: Shoulder DJO SURGICAL 06/17/2026 520-46-31 6 / / [id number] documented as of this encounter Advance Directives [...] and were consensually agreed upon. Care Teams Rangelands Conservation Laborer Relationship Specialty Start Date End Date March, Sotero Sutton MD [address] [place] [address] PCP - General Family Medicine 12/07/22 documented as of this encounter
--- OUTSIDE RECORDS SUMMARY | 2023-11-15 04:35 | External Medical Summary | Summary of Care ---
Author Name Unknown Organization [facility] Address [address] [facility] [place] [address] Phone [phone] Care Team Providers Care Generation Engineer Name Role Phone Sotero Pizano MD Primary Care Provider [phone] Reason for Visit * Reason Onset Date Comments [facility]: Maintenance 06/19/2023 Encounter Details Date Type Department Care Team Description 06/19/2023 Scheduled Telephone [facility], [facility] [address] [facility] [place] [address] Coordinator, [facility] [address] [facility] [place] [address] Chronic heart failure with preserved ejection fraction (HCC) Allergies Active Allergy Reactions Severity Noted [...] Aspirin EC)Indications:Cer ebral aneurysm, nonruptured Take 1 Tab by mouth daily. 90 Tab 1 07/26/2020 Active CPAP 16 % every night at bedtime. 0 Active Ipratropium-Albute rol 0.5-2.5 (3) MG/3ML Inhalation Solution (Duoneb)Indication s:Chronic bronchitis with wheezing (HCC) Inhale via nebulizer 3 mL in the morning AND 3 mL at noon AND 3 mL in the evening AND 3 mL before bedtime. 100 mL 3 02/24/2022 Active Compressor NebulizerIndicatio ns:Chronic bronchitis with wheezing (HCC) Inhale via nebulizer . Use as directed. 1 Each 1 02/24/2022 Active Meclizine HCl 12.5 MG Oral Tablet (Antivert)Indicati ons:Vertigo TAKE ONE TABLET BY MOUTH THREE TIMES DAILY NEEDED FOR DIZZINESS 30 Tablet 2 03/15/2022 Active Vitamin D (Ergocalciferol) 1.25 MG (46392 UT) Oral Capsule TAKE ONE CAPSULE BY MOUTH MONTHLY 12 Capsule 0 05/03/2022 Active Fluticasone Propionate 50 MCG/ACT Nasal Suspension (Flonase) Administer 2 Sprays into nostril in the morning. 0 Active Docusate Sodium 100 MG Oral Capsule (Colace)Indication [...] Active Triamcinolone Acetonide 0.5 % External Cream (Aristocort)Indica [...] Active Ondansetron HCl 4 MG Oral Tablet (Zofran)Indication s:Nausea TAKE 1 TABLET BY MOUTH EVERY 8 HOURS IF NEEDED FOR NAUSEA 30 Tablet 0 05/14/2023 Active Vitamin B-12 1000 MCG Oral Tablet (Cyanocobalamin)In dications:B12 deficiency Take 1 Tablet by mouth in the morning. 30 Tablet 11 05/23/2023 Active rOPINIRole HCl 2 MG Oral Tablet (Requip) TAKE ONE TABLET BY MOUTH IN THE MORNING, ONE AT NOON AND ONE BEFORE BEDTIME. TAKE WITH FOOD. 90 Tablet 2 05/27/2023 Active Losartan Potassium 25 MG Oral Tablet (Cozaar)Indication s:Chronic kidney disease, stage 3b (HCC),HTN, goal below 140/90 Take 0.5 Tablets by mouth in the morning. 34 Tablet 11 06/02/2023 Active Magnesium 200 MG Oral Tablet ChewableIndication s:Chronic kidney disease, stage 3b (HCC) Take 400 mg by mouth in the morning. 180 Tablet 3 06/02/2023 Active Magnesium 400 MG Oral Tablet Take 400 mg by mouth in the morning. 90 Tablet 3 06/04/2023 Active Clindamycin HCl 300 MG Oral CapsuleIndications :Sialadenitis Take 1 Capsule by mouth in the morning and 1 Capsule at noon and 1 Capsule in the evening and 1 Capsule before bedtime. Do all this for 10 days. 40 Capsule 0 06/10/2023 Active Pregabalin 25 MG Oral Capsule (Lyrica) Take 1 capsule in the am, and 2 capsules in pm. 90 Capsule 3 06/18/2023 Active Torsemide 10 MG Oral Tablet (Demadex)Indicatio ns:Chronic heart failure with preserved ejection fraction (HCC) 20 mg in the morning 10 mg in the evening 90 Tablet 3 06/19/2023 Active Torsemide 10 MG Oral Tablet (Demadex)Indicatio ns:Chronic heart failure with preserved ejection fraction (HCC) 20 mg in the morning 10 mg in the evening 90 Tablet 3 03/28/2023 Discontinue d(Refill) Hospital, Clinic, or Other Facility Administered Medication Ordered Dose Route Frequency Start Date End Date Status Furosemide (Lasix) inj 80 mgIndications:Chronic heart failure with preserved ejection fraction (HCC) 80 mg IV PUSH ONCE 06/19/2023 06/20/2023 Active documented as of this encounter (statuses [...] mRNA, LNP-s, No Pre serve, 2-Dose Series (Algenetix) 02/17/2021,01/27/2021 Pneumococcal Polysaccharide PPV23 (Pneumovax) Seasonal Influenza, [...] Addendum Note - Xu Donaldson PA-C - 06/19/2023 5:13 PM EDTAddended by: XU DONALDSON on: 06/19/2023 05:13 PM Modules accepted: Orders * Telephone Encounter - Laurie Cabrera RN - 06/19/2023 3:30 PM EDT Ladi Joseph RNCM, will see patient today at 4pm Patient called and aware Follow up calls scheduled Josefina Cabrera RN, BSN [facility] Intake Triage Coordinator [phone] * Telephone Encounter - Laurie Cabrera RN [...] IV Lasix MIH: CARLOTTA Cabrera RN, BSN [facility] Intake Triage Coordinator [phone] * Telephone Encounter - Laurie Cabrera RN - 06/19/2023 3:22 PM EDT Reached out to Nori Downing, can I use RNCM on care team for her 4p acute slot to see patient today, ? IV lasix Nori will reach out to RNCM Josefina Cabrera RN, BSN [facility] Intake Triage Coordinator [phone] * Telephone Encounter - Xu Donaldson PA-C [...] lunch Still SOB with talking Routing to [facility] since increase of Torsemide for last 2 doses not beneficial in bringing down weight or helping SOB Josefina Cabrera RN, BSN [facility] Intake Triage Coordinator [phone] * Telephone Encounter - Laurie Cabrera RN - 06/19/2023 10:17 AM EDT Images from the original note were not included. [facility] Telephonic Nurse Follow-Up Call [facility] Subprogram: Focused Care Management (3-9 months) [...] Follow up call scheduled for tomorrow with DYE MACHINE OPERATOR Ditch Repairer /hearing aid assistant, today at 1pm Future Visits Scheduled: Future Appointments-next 60 days Date/Time Provider Specialty Dept Phone 06/19/2023 2:30 PM [facility] Ditch Repairer [facility] [phone] 06/19/2023 3:30 PM Laboratory [facility] [phone] 06/20/2023 10:30 AM [facility] [phone] 06/28/2023 1:00 PM (Arrive by 12:45 PM) Christo Burk MD Orthopedics [phone] 06/28/2023 2:15 PM (Arrive by 2:00 PM) [address] Radiology [phone] 07/02/2023 4:00 PM Ladi Joseph RN [facility] [phone] 08/22/2023 3:00 PM (Arrive by 2:45 PM) Aime Casas MD Neurological Surgery [phone] 08/27/2023 3:00 PM (Arrive by 2:45 PM) Brennan Wasserman MD Allergy & Immunology [phone] 10/01/2023 2:00 PM (Arrive by 1:45 PM) Amaya Singleton PA-C Cardiology [phone] 11/23/2023 2:40 PM (Arrive by 2:25 PM) Sotero Pizano MD Family Medicine [phone] 11/27/2023 2:00 PM (Arrive by 1:45 PM) Vernell Kimball PA-C Neurology [phone] 12/10/2023 3:30 PM Nurse Annual [facility] [phone] 04/08/2024 3:15 PM (Arrive by 3:00 PM) Mario Kong MD Hematology Oncology [phone] Laurie Cabrera, RN documented in this encounter Plan of Treatment Upcoming Encounters Date Type Specialty Care Team Description 06/20/2023 Scheduled Telephone [facility] [place] Department Supervisor, [facility] [address] [place] [address] 06/20/2023 Scheduled Telephone [facility] [place] Department Supervisor, [facility] [address] [place] [address] 06/21/2023 Scheduled Telephone [facility] [place] Department Supervisor, [facility] [address] [place] [address] 06/28/2023 Office Visit Orthopedics Christo Burk MD [address] [place] [address] 06/28/2023 Imaging Radiology 07/02/2023 Home Visit [facility] Ladi Joseph, JEREMY [address] [place] [address] 08/22/2023 Office Visit Neurological Surgery Aime Casas MD [address] [facility] [place] [address] 08/27/2023 Office Visit Allergy & Immunology Brennan Wasserman MD [address] [place] [address] 10/01/2023 Office Visit Cardiology Amaya Singleton PA-C [address] [place] [address] 11/23/2023 Office Visit Family Medicine Sotero Pizano MD [address] [place] [address] 11/27/2023 Office Visit Neurology Vernell Kimball PA-C [address] [place] [address] 12/10/2023 Nurse Only [facility] Nurse Annual Wellness [address] [place] [address] 04/08/2024 Office Visit Hematology Oncology Mario Kong MD [address] [place] [address] Health Maintenance Due Date Last Done Comments [...] Over 12/07/2023 12/07/2022 CKD PHOS USE SMARTSET 94465 03/16/202403/05, 03/29/2022, 05/13/2021, Additional history exists CKD HGB USE SMARTSET 21837 04/25/202404/25, 04/25/2023, 04/06/2023, Additional history exists Diabetes [...] this encounter Medical Devices Implanted Type Area Millinery Department Manager Device Identifier Shelf Expiration Date Model / Serial / Lot Terumo Microvention Hydrosoft 3d Implanted:Qty: 1 on 08/16/2018 by Aime Casas MD at OR [facility] N/A: Head [employer] : INTERVENTIONA 07/05/2023 [id number] / [id number] / [id number] Hd Offset Hum 46x16 - [id number] Implanted:Qty: 1 on 09/28/2020 by Teresa Rehman DO at OR [facility] Left: Shoulder DJO SURGICAL 06/17/2026 520-46-31 6 / / [id number] documented as of this encounter Visit Diagnoses [...] and were consensually agreed upon. Care Teams Generation Engineer Relationship Specialty Start Date End Date March, Sotero Sutton MD [address] [place] [address] PCP - General Family Medicine 12/07/22 documented as of this encounter
--- OUTSIDE RECORDS SUMMARY | 2023-11-15 04:35 | External Medical Summary | Summary of Care ---
Author Name Unknown Organization [facility] Address [address] [place] [address] Phone [phone] Care Team Providers Care Director Of Psychology Name Role Phone Sotero Pizano MD Primary Care Provider [phone] Reason for Visit * Reason Comments Outpatient Testing Encounter Details Date Type Department Care Team Description 06/19/2023 Laboratory Laboratory, [place] [address] [place] [address] [place], [facility] [address] [place] [address] Arrived Allergies Active Allergy Reactions Severity Noted Date [...] 03/15/2022 Active Vitamin D (Ergocalciferol) 1.25 MG (16906 UT) Oral Capsule TAKE ONE CAPSULE BY [...] [facility] Ladi Joseph RN [address] [place] [address] 06/20/2023 Scheduled Telephone [facility] [place] Machine Operator, [facility] [address] [place] [address] 06/20/2023 Scheduled Telephone [facility] [place] Machine Operator, [facility] [address] [place] [address] 06/28/2023 Office Visit Orthopedics Christo Burk MD [address] [place] [address] 06/28/2023 Imaging Radiology 07/02/2023 Home Visit [facility] Ladi Joseph RN [address] [place] [address] 08/22/2023 Office Visit Neurological Surgery Aime Casas MD [address] [place] [address] 08/27/2023 Office Visit Allergy & Immunology Brennan Wasserman MD [address] [place] [address] 10/01/2023 Office Visit Cardiology Amaya Sinlgeton PA-C [address] [place] [address] 11/23/2023 Office Visit Family Medicine Sotero Pizano MD [address] [place] [address] 11/27/2023 Office Visit Neurology Vernell Kimball PA-C [address] [place] [address] 12/10/2023 Nurse Only [facility], Nurse Annual Wellness [address] [place] [address] 04/08/2024 Office Visit Hematology Oncology Mario Kong MD [address] [place] [address] Health Maintenance Due Date Last Done Comments [...] Over 12/07/2023 12/07/2022 CKD PHOS USE SMARTSET 60855 03/16/202403/05, 03/29/2022, 05/13/2021, Additional history exists CKD HGB USE SMARTSET 71864 04/25/202404/25, 04/25/2023, 04/06/2023, Additional history exists Diabetes [...] this encounter Medical Devices Implanted Type Area Cvicu Rn Device Identifier Shelf Expiration Date Model / Serial / Lot Terumo Microvention Hydrosoft 3d Implanted:Qty: 1 on 08/16/2018 by Aime Casas MD at OR [facility] N/A: Head [employer] : INTERVENTIONA 07/05/2023 2524-1615 / [id number] / [id number] Hd Offset Hum 46x16 - [id number] Implanted:Qty: 1 on 09/28/2020 by Teresa Rehman DO at OR [facility] Left: Shoulder DJO SURGICAL 06/17/2026 520-46-31 6 / / [id number] documented as of this encounter Advance Directives [...] were consensually agreed upon. Care Teams Director Of Psychology Relationship Specialty Start Date End Date March, Sotero Sutton MD [address] [place] [address] PCP - General Family Medicine 12/07/22 documented as of this encounter
--- OUTSIDE RECORDS SUMMARY | 2023-11-15 04:35 | External Medical Summary | Summary of Care ---
Author Name Unknown Organization [facility] Address [address] [facility] [place] [address] Phone [phone] Care Team Providers Care Electronic Technologist Name Role Phone Sotero Pizano MD Primary Care Provider [phone] Reason for Visit * Reason Onset Date Comments [facility]: Maintenance 06/20/2023 Encounter Details Date Type Department Care Team Description 06/20/2023 Scheduled Telephone [facility], [facility] [address] [place] [address] Coordinator, [facility] [address] [place] [address] Allergies Active Allergy Reactions Severity Noted Date [...] 03/15/2022 Active Vitamin D (Ergocalciferol) 1.25 MG (64155 UT) Oral Capsule TAKE ONE CAPSULE BY [...] Encounter - Laurie Cabrera RN - 06/20/2023 10:18 AM EDT Images from the original note were not included. [facility] Telephonic Nurse Follow-Up Call [facility] Subprogram: Focused Care Management (3-9 months) [...] NO CHANGE from baseline supplemental oxygen needs, 2LPM at only DME Needs: NO DME needs identified Medications: New medication(s) added: Given IV Lasix 80 mg at acute visit yesterday afternoon due to DTP not improving symptoms Subjective: Condition Status: Improvement in symptoms but not at baseline Current Concerns: Per patient, her breathing is better, not working so hard. Still has some edema in feet and some abdominal bloating. She usually does not have those symptoms on a regular basis She will take double Torsemide as directed, and will get labs on Sunday Aware follow up call again tomorrow to make sure her symptoms continue to improve Disposition: Follow up call scheduled for tomorrow with STUDENT WORKER Log Raft Worker /marine fisheries technician Future Visits Scheduled: Future Appointments-next 60 days Date/Time Provider Specialty Dept Phone 06/20/2023 10:30 AM [facility] Gene Log Raft Worker [facility] [phone] 06/20/2023 4:00 PM [facility] Gene Log Raft Worker [facility] [phone] 06/21/2023 1:30 PM [facility] [phone] 06/28/2023 1:00 PM (Arrive by 12:45 PM) Christo Burk MD Orthopedics [phone] 06/28/2023 2:15 PM (Arrive by 2:00 PM) [facility] Radiology [phone] 07/02/2023 4:00 PM Ladi Joseph RN [facility] [phone] 08/22/2023 3:00 PM (Arrive by 2:45 PM) Aime Casas MD Neurological Surgery [phone] 08/27/2023 3:00 PM (Arrive by 2:45 PM) Brennan Wasserman MD Allergy & Immunology [phone] 10/01/2023 2:00 PM (Arrive by 1:45 PM) Amaya Singleton PA-C Cardiology [phone] 11/23/2023 2:40 PM (Arrive by 2:25 PM) Sotero Pizano MD Family Medicine [phone] 11/27/2023 2:00 PM (Arrive by 1:45 PM) Vernell Kimball PA-C Neurology [phone] 12/10/2023 3:30 PM Nurse Annual Wellness [facility] [phone] 04/08/2024 3:15 PM (Arrive by 3:00 PM) Mario Kong MD Hematology Oncology [phone] Laurie Cabrera, RN documented in this encounter Plan of Treatment Upcoming Encounters Date Type Specialty Care Team Description 06/20/2023 Scheduled Telephone [facility] Laborer [employer]cing [employer], [facility] [address] [place] [address] 06/21/2023 Scheduled Telephone [facility] [employer], [facility] [address] [employer] [place] [address] 06/28/2023 Office Visit Orthopedics Christo Burk MD [address] [place] [address] 06/28/2023 Imaging Radiology 07/02/2023 Home Visit [facility] Ladi Joseph RN [address] [place] [address] 08/22/2023 Office Visit Neurological Surgery Aime Casas MD [address] [place] [facility] [place] [address] 08/27/2023 Office Visit Allergy & Immunology Brennan Wasserman MD [address] [facility] [place] [address] 10/01/2023 Office Visit Cardiology Amaya Singleton PA-C [address] [place] [address] 11/23/2023 Office Visit Family Medicine Sotero Pizano MD [address] [place] [address] 11/27/2023 Office Visit Neurology Vernell Kimball PA-C [address] [place] [address] 12/10/2023 Nurse Only Ancillary [place], Nurse Annual Wellness [address] [facility] [place] [address] 04/08/2024 Office Visit Hematology Oncology [facility] [address] [facility] [address] Health Maintenance Due Date Last Done Comments [...] Over 12/07/2023 12/07/2022 CKD PHOS USE SMARTSET 72519 03/16/202403/05, 03/29/2022, 05/13/2021, Additional history exists CKD HGB USE SMARTSET 11127 04/25/202404/25, 04/25/2023, 04/06/2023, Additional history exists Diabetes [...] this encounter Medical Devices Implanted Type Area Apiculture Teacher Device Identifier Shelf Expiration Date Model / Serial / Lot Terumo Microvention Hydrosoft 3d Implanted:Qty: 1 on 08/16/2018 by Aime Casas MD at OR [facility] N/A: Head [employer] : INTERVENTIONA 07/05/2023 0160-3219 / [id number] / [id number] Hd Offset Hum 46x16 - [id number] Implanted:Qty: 1 on 09/28/2020 by Teresa Rehman DO at OR [facility] Left: Shoulder DJO SURGICAL 06/17/2026 520-46-31 6 / / [id number] documented as of this encounter Advance Directives [...] were consensually agreed upon. Care Teams Electronic Technologist Relationship Specialty Start Date End Date March, Sotero Sutton MD [address] [place] [address] PCP - General Family Medicine 12/07/22 documented as of this encounter
--- OUTSIDE RECORDS SUMMARY | 2023-11-15 04:35 | External Medical Summary | Summary of Care ---
Author Name Unknown Organization [facility] Address [address] [place] [address] Phone [phone] Care Team Providers Care Pediatrics Hospitalist Name Role Phone Maine Dumont MD Primary Care Provider [phone] Reason for Visit * Reason Comments eRx-Medication Refill Encounter Details Date Type Department Care Team Description 06/18/2023 Refill [facility] [address] [place] [address] Maine Dumont MD [address] [place] [address] HTN, goal below 140/90 Allergies Active Allergy Reactions Severity Noted Date [...] MG Oral Tablet Delayed Release (RA Aspirin EC)Indications:C erebral aneurysm, nonruptured Take 1 Tab by mouth daily. 90 Tab 1 0 Active CPAP 16 % every night at bedtime. 0 Active Ipratropium-Albu terol 0.5-2.5 (3) MG/3ML Inhalation Solution (Duoneb)Indicati ons:Chronic bronchitis with wheezing (HCC) Inhale via nebulizer 3 mL in the morning AND 3 mL at noon AND 3 mL in the evening AND 3 mL before bedtime. 100 mL 3 2 Active Compressor NebulizerIndicat ions:Chronic bronchitis with wheezing (HCC) Inhale via nebulizer . Use as directed. 1 Each 1 2 Active Meclizine HCl 12.5 MG Oral Tablet (Antivert)Indica tions:Vertigo TAKE ONE TABLET BY MOUTH THREE TIMES DAILY NEEDED FOR DIZZINESS 30 Tablet 2 2 Active Vitamin D (Ergocalciferol) 1.25 MG (27252 UT) Oral Capsule TAKE ONE CAPSULE BY MOUTH MONTHLY 12 Capsule 0 2 Active Fluticasone Propionate 50 MCG/ACT Nasal Suspension (Flonase) Administer 2 Sprays into nostril in the morning. 0 Active Docusate Sodium 100 MG Oral Capsule (Colace)Indicati ons:Constipation , unspecified constipation type Take 1 Capsule by mouth in the morning and 1 Capsule before bedtime. 60 Capsule 11 3 Active Additional Information Patient taking differently:100 mg OralDaily(AM), Reported on 03/22/2023 Atorvastatin Calcium 10 MG Oral Tablet (Lipitor) TAKE 1 TABLET BY MOUTH ONCE DAILY 90 Tablet 2 3 Active Proventil HFA 108 (90 Base) MCG/ACT Inhalation Aerosol SolutionIndicati ons:Bronchitis,U pper respiratory tract infection, unspecified type Inhale 2 Puffs by mouth every 4 hours as needed for Congestion, Cough or Wheezing. 18 g 0 3 Active Triamcinolone Acetonide 0.5 % External Cream (Aristocort)Patti cations:Dermatit is,Lipodermatosc lerosis of both lower extremities apply topically to affected area of lower extremities where redness and itching and tight skin twice a day 450 g 0 3 Active traZODone HCl 150 MG Oral Tablet (Desyrel) TAKE 1 TABLET BY MOUTH AT BEDTIME 90 Tablet 3 3 Active Metoprolol Succinate ER 25 MG Oral Tablet Extended Release 24 Hour (Toprol XL) Take 1 Tablet by mouth in the morning. 34 Tablet 6 3 Active Polyethylene Glycol 3350 17 GM/SCOOP Oral Powder (MiraLax)Indicat ions:Constipatio n, unspecified constipation type Take 17 g by mouth daily as needed for Constipation. Dissolve one heaping tablespoon in 8 ounces of water or juice. 238 g 0 3 Active Ondansetron HCl 4 MG Oral Tablet (Zofran)Indicati ons:Nausea TAKE 1 TABLET BY MOUTH EVERY 8 HOURS IF NEEDED FOR NAUSEA 30 Tablet 0 3 Active Vitamin B-12 1000 MCG Oral Tablet (Cyanocobalamin) Indications:B12 deficiency Take 1 Tablet by mouth in the morning. 30 Tablet 11 3 Active rOPINIRole HCl 2 MG Oral Tablet (Requip) TAKE ONE TABLET BY MOUTH IN THE MORNING, ONE AT NOON AND ONE BEFORE BEDTIME. TAKE WITH FOOD. 90 Tablet 2 3 Active Losartan Potassium 25 MG Oral Tablet (Cozaar)Indicati ons:Chronic kidney disease, stage 3b (HCC),HTN, goal below 140/90 Take 0.5 Tablets by mouth in the morning. 34 Tablet 11 3 Active Clindamycin HCl 300 MG Oral CapsuleIndicatio ns:Sialadenitis Take 1 Capsule by mouth in the morning and 1 Capsule at noon and 1 Capsule in the evening and 1 Capsule before bedtime. Do all this for 10 days. 40 Capsule 0 3 06/20/20 23 Active Magnesium Oxide -Mg Supplement 400 (240 Mg) MG Oral Tablet (Mag-Ox)Indicati ons:HTN, goal below 140/90 TAKE 1 TABLET BY MOUTH EVERY MORNING 90 Tablet 0 3 Active Pregabalin 25 MG Oral Capsule (Lyrica) Take 1 capsule in the am, and 2 capsules in pm. 90 Capsule 3 3 Active Torsemide 10 MG Oral Tablet (Demadex)Indicat ions:Chronic heart failure with preserved ejection fraction (HCC) 20 mg in the morning 10 mg in the evening 90 Tablet 3 3 06/19/20 23 Discontinued(Ref ill) Magnesium 200 MG Oral Tablet ChewableIndicati ons:Chronic kidney disease, stage 3b (HCC) Take 400 mg by mouth in the morning. 180 Tablet 3 3 06/19/20 23 Discontinued Magnesium 400 MG Oral Tablet Take 400 mg by mouth in the morning. 90 Tablet 3 3 06/19/20 23 Discontinued documented as of this encounter [...] Telephone Encounter - Maine Dumont MD - 06/19/2023 5:14 PM EDTSigned Prescriptions: Disp Refills Magnesium Oxide -Mg Supplement 400 (240 Mg*90 Tab*0 Sig: TAKE 1 TABLET BY MOUTH EVERY MORNINGAuthorizing Provider: MAINE DUMONT * Telephone Encounter - Fariba Mosher LPN - 06/19/2023 8:56 AM EDTPending Prescriptions: Disp Refills Magnesium Oxide -Mg Supplement 400 (240 Mg*90 Tab*0 Sig: TAKE 1 TABLET BY MOUTH EVERY MORNING * Telephone Encounter - Sarah Echevarria - 06/18/2023 9:52 PM EDTPending Prescriptions: Disp Refills Magnesium Oxide -Mg Supplement 400 (240 Mg*90 Tab*0 Sig: TAKE 1TABLET BY MOUTH EVERY MORNING documented in this encounter Plan of Treatment Upcoming Encounters Date Type Specialty Care Team Description 06/20/2023 Scheduled Telephone [facility] [employer], [facility] [address] [address] 06/20/2023 Scheduled Telephone [facility] [employer], [facility] [address] [place] [address] 06/21/2023 Scheduled Telephone [facility] [employer], [facility] [address] [address] 06/28/2023 Office Visit Orthopedics Christo Burk MD [address] [id number] 06/28/2023 Imaging Radiology 07/02/2023 [facility] Visit [facility] Ladi Joseph RN [address] [place] [address] 08/22/2023 Office Visit Neurological Surgery Aime Casas MD [address] [place] [address] 08/27/2023 Office Visit Allergy & Immunology Brennan Wasserman MD [address] [place] [address] 10/01/2023 Office Visit Cardiology Amaya Singleton PA-C [address] [place] [address] 11/23/2023 Office Visit Family Medicine Maine Dumont MD [address] [place] [address] 11/27/2023 Office Visit Neurology Vernell Kimball PA-C [address] [facility] [place] [address] 12/10/2023 Nurse Only [facility], Nurse Annual Wellness [address] [place] [address] 04/08/2024 Office Visit Hematology Oncology Mario Kong MD [address] [place] [address] Health Maintenance Due Date Last Done Comments [...] Over 12/07/2023 12/07/2022 CKD PHOS USE SMARTSET 77739 03/16/202403/05, 03/29/2022, 05/13/2021, Additional history exists CKD HGB USE SMARTSET 69894 04/25/202404/25, 04/25/2023, 04/06/2023, Additional history exists Diabetes [...] this encounter Medical Devices Implanted Type Area Child And Family Therapist Device Identifier Shelf Expiration Date Model / Serial / Lot Terumo Microvention Hydrosoft 3d Implanted:Qty: 1 on 08/16/2018 by Aime Casas MD at OR [facility] N/A: Head [employer] : INTERVENTIONA 07/05/2023 [id number] / [id number] / [id number] Hd Offset Hum 46x16 - [id number] Implanted:Qty: 1 on 09/28/2020 by Teresa Rehman DO at OR [facility] Left: Shoulder DJO SURGICAL 06/17/2026 520-46-31 6 / [id number] documented as of this encounter Visit Diagnoses Diagnosis HTN, goal below 140/90 Unspecified essential hypertension documented in this encounter Advance Directives Latest [...] and were consensually agreed upon. Care Teams Pediatrics Hospitalist Relationship Specialty Start Date End Date March, Maine Sutton MD [address] [facility], [place] [address] PCP - General Family Medicine 12/07/22 documented as of this encounter
--- OUTSIDE RECORDS SUMMARY | 2023-11-15 04:36 | External Medical Summary | Summary of Care ---
Author Name Unknown Organization [facility] Address [address] [place] [address] Phone [phone] Care Team Providers Care Telecommunications Line Installer Name Role Phone Sotero Pizano MD Primary Care Provider [phone] Reason for Visit * Reason Onset Date Comments [facility]: Maintenance 06/18/2023 Encounter Details Date Type Department Care Team Description 06/18/2023 Telephone [facility], [facility] [address] [place] [address] [facility], Nurse [facility] [address] [place] [address] [facility]: Maintenance Allergies Active Allergy [...] as of this encounter (statuses as of 06/18/2023) Medications Medication Sig Dispensed Refills Start Date [...] 03/15/2022 Active Vitamin D (Ergocalciferol) 1.25 MG (72541 UT) Oral Capsule TAKE ONE CAPSULE BY [...] as of this encounter (statuses as of 06/18/2023) Active Problems Problem Noted Date Iron deficiency [...] as of this encounter (statuses as of 06/18/2023) Resolved Problems Problem Noted Date Resolved Date [...] as of this encounter (statuses as of 06/18/2023) Immunizations Name Administration Dates Next Due COVID-19 mRNA, LNP-s, No Pre serve, 2-Dose Series ([employer]) 02/17/2021,01/27/2021 Pneumococcal Polysaccharide PPV23 (Pneumovax) Seasonal Influenza, [...] Telephone Encounter - Shari Dutta LPN - 06/18/2023 3:55 PM EDT Please clarify what patient is to take for increase of diuretic thanks * Telephone Encounter - Xu Donaldson PA-C - 06/18/2023 3:38 PM EDT [facility] Phone Encounter [facility] Phone Encounter Thank you for your assistance in the care of this patient today. Reviewed phone message regarding the patient's weight and [facility] findings. Please see below for the response to the trigger: Although the patient is within her baseline weight she is reporting symptoms of shortness of breathand abdominal bloating. She reportedly took 10 mg extra Demadex this morning. Her normal dose is 20mg in the a.m. and 10 mg Recommendations: I am recommending 20 mg or tonight and 40mg in the a.m.and then back to normal dosing. WE may need to consider increasing her 20 twice daily I would have Kristen Garcia continue to weigh on a daily basis and report any changes in symptoms toGAH, their PCP or their cardiology office. Thank you in advance, I appreciate it. Xu Donaldson PA-C Advanced Practitioner - [facility] .06/18/2023 This note was prepared with the help of fluency and if there is any mis-spelled words , sentences or something which doesn't represent the content of the subject that could be technical error and please refer to the author for clarification. * Telephone Encounter - Shari Dutta LPN - 06/18/2023 2:52 PM EDT Images from the original note were not included. [facility] that patient is triggering for her and needs [facility] scale transferrred to [facility] TT sent to [facility] role to transfer scale to [facility] Call to patient to check status of her weight She is SOB past few days Took 10mg extra of demedex this am Takes 20mg in am 10mg in pm Last BM was today Has swelling in abdomen denies swelling LE Denies chest pain, headaches dizziness Been using inhalers Educated on 2gm sodium 64 oz fluid restriction AMC limit is 3lb below 250l and 3lb above 260lb Routing to care team documented in this encounter Plan of Treatment Upcoming Encounters Date Type Specialty Care Team Description 06/19/2023 Laboratory Laboratory [facility] [address] [place] [address] 06/28/2023 Office Visit Orthopedics Christo Burk MD [address] [place] [address] 06/28/2023 Imaging Radiology 07/02/2023 Home Visit [facility] Ladi Joseph RN [address] [place] [address] 08/22/2023 Office Visit Neurological Surgery Aime Casas MD [address] [place] [address] 08/27/2023 Office Visit Allergy & Immunology Brennan Wasserman MD [address] [facility] [place] [address] 10/01/2023 Office Visit Cardiology Amaya Singleton PA-C [address] [place] [address] 11/23/2023 Office Visit Family Medicine Sotero Pizano MD [address] [place] [address] 11/27/2023 Office Visit Neurology Vernell Kimball PA-C [address] [facility] [place] [address] 12/10/2023 [facility] Nurse Annual [facility]ness [address] [place] [address] 04/08/2024 Office Visit Hematology Oncology Mario Kong MD [address] [facility] [place] [address] Health Maintenance Due Date Last Done Comments [...] Over 12/07/2023 12/07/2022 CKD PHOS USE SMARTSET 78149 03/16/202403/05, 03/29/2022, 05/13/2021, Additional history exists CKD HGB USE SMARTSET 68964 04/25/202404/25, 04/25/2023, 04/06/2023, Additional history exists Diabetes [...] this encounter Medical Devices Implanted Type Area Guidance And Control System Engineer Device Identifier Shelf Expiration Date Model / Serial / Lot Terumo Microvention Hydrosoft 3d Implanted:Qty: 1 on 08/16/2018 by Aime Casas MD at [place] [facility] [place] N/A: Head [employer] : INTERVENTIONA 07/05/2023 [id number] / [id number] / [id number] Hd Offset Hum 46x16 - [id number] Implanted:Qty: 1 on 09/28/2020 by Teresa Rehman DO at OR [facility] Left: Shoulder DJO SURGICAL 06/17/2026 520-46-31 6 / / [id number] documented as of this encounter Advance Directives Latest Code Status on File Code Status Date Activated Date Inactivated Comments Full Code 09/28/2020 10:40 AM 09/29/2020 7:12 PM T his order reflects the patients wishes and were [...] and were consensually agreed upon. Care Teams Telecommunications Line Installer Relationship Specialty Start Date End Date March, Sotero Sutton MD [address] [place] [facility] [place] [address] PCP - General Family Medicine 12/07/22 documented as of this encounter
--- OUTSIDE RECORDS SUMMARY | 2023-11-15 04:36 | External Medical Summary | Summary of Care ---
Author Name Unknown Organization [facility] Address [address] [place] [address] Phone [phone] Care Team Providers Care Lining Marker Name Role Phone Sotero Pizano MD Primary Care Provider [phone] Reason for Visit * Reason Onset Date Comments [facility]: Maintenance 06/18/2023 Encounter Details Date Type Department Care Team Description 06/18/2023 Telephone [facility], [facility] [address] [place] [address] [facility], Nurse [facility] [address] [place] [address] [facility]: Maintenance Allergies Active Allergy [...] 03/15/2022 Active Vitamin D (Ergocalciferol) 1.25 MG (10003 UT) Oral Capsule TAKE ONE CAPSULE BY [...] mRNA, LNP-s, No Pre serve, 2-Dose Series ([employer]) 02/17/2021,01/27/2021 Pneumococcal Polysaccharide PPV23 (Pneumovax) Seasonal [...] encounter Miscellaneous Notes * Telephone Encounter - Luz Gamboa LPN - 06/18/2023 4:36 PM EDT Call to pt gave instructions from Zenia Donaldson Pt expressed understanding 24/48 hr f/u calls scheduled * Telephone Encounter - Shari Dutta LPN - 06/18/2023 3:55 PM EDT Please clarify what patient is to take for increase of diuretic thanks * Telephone Encounter - Xu Donaldson PA-C - 06/18/2023 3:38 PM EDT [facility] Phone Encounter [facility] Phone Encounter Thank you for your assistance in the care of this patient today. Reviewed phone message regarding the patient's weight and [facility] findings. Please see below for the [...] note were not included. Received call from [facility] Josefina Capone that patient is triggering for her and needs [facility] scale transferrred to [facility] TT sent to [facility] role to transfer scale to [facility] Call to patient to check status of [...] Date Type Specialty Care Team Description 06/19/2023 Scheduled Telephone [facility] Auto Service Dispatcher, [facility] [address] [place] [address] 06/19/2023 Laboratory Laboratory [facility] [address] [facility] [place] [address] 06/20/2023 Scheduled Telephone [facility] [employer] Service Dispatcher, [facility] [address] [place] [address] 06/28/2023 Office Visit Orthopedics Christo Burk MD [address] [place] [address] 06/28/2023 Imaging Radiology 07/02/2023 Home Visit [facility] Ladi Joseph RN [address] [place] [address] 08/22/2023 Office Visit Neurological Surgery Aime Casas MD [address] [place] [address] 08/27/2023 Office Visit Allergy & Immunology Brennan Wasserman MD [address] [place] [address] 10/01/2023 Office Visit Cardiology Amaya Singleton PA-C [address] [place] [address] 11/23/2023 Office Visit Family Medicine Sotero Pizano MD [address] [place] [address] 11/27/2023 Office Visit Neurology Vernell Kimball PA-C [address] [facility] [place] [address] 12/10/2023 Nurse Only [facility], Nurse Annual [facility] [address] [place] [address] 04/08/2024 Office Visit Hematology Oncology Mario Kong MD [address] [place] [address] Health Maintenance Due Date Last Done Comments [...] Over 12/07/2023 12/07/2022 CKD PHOS USE SMARTSET 98154 03/16/202403/05, 03/29/2022, 05/13/2021, Additional history exists CKD HGB USE SMARTSET 08063 04/25/202404/25, 04/25/2023, 04/06/2023, Additional history exists Diabetes [...] this encounter Medical Devices Implanted Type Area Roll Skinner Device Identifier Shelf Expiration Date Model / Serial / Lot [employer] Microvention Hydrosoft 3d Implanted:Qty: 1 on 08/16/2018 by Aime Casas MD at OR [facility] N/A: Head [employer] MEDICAL : INTERVENTIONA 07/05/2023 [id number] / [id number] / [id number] Hd Offset Hum 46x16 - [id number] Implanted:Qty: 1 on 09/28/2020 by Teresa Rehman DO at OR [facility] Left: Shoulder DJO SURGICAL 06/17/2026 520-46-31 [id number] documented as of this encounter Advance Directives [...] and were consensually agreed upon. Care Teams Lining Marker Relationship Specialty Start Date End Date March, Sotero Sutton MD [address] [place] [address] PCP - General Family Medicine 12/07/22 documented as of this encounter
--- OUTSIDE RECORDS SUMMARY | 2023-11-15 04:36 | External Medical Summary | Summary of Care ---
Author Name Unknown Organization [facility] Address [address] [facility] [place] [address] Phone [phone] Care Team Providers Care Driller Helper Name Role Phone Sotero Pizano MD Primary Care Provider [phone] Reason for Visit * Reason Onset Date Comments [facility]: Maintenance 06/19/2023 Encounter Details Date Type Department Care Team Description 06/19/2023 Scheduled Telephone [facility], [facility] [address] [place] [address] Coordinator, [facility] [address] [place] [address] Allergies Active Allergy Reactions Severity Noted Date [...] 03/15/2022 Active Vitamin D (Ergocalciferol) 1.25 MG (69556 UT) Oral Capsule TAKE ONE CAPSULE BY [...] [facility] Telephonic Nurse Follow-Up Call [facility] Subprogram: Focused Care Management (3-9 months) [...] took the 20 mg demadex last night, andjust took the 40 mg this AM about 30 mins ago Agreed to call patient back at 1pm today to see if the 40 mg AM dose helped her symptoms, Disposition: Follow up call scheduled for tomorrow with SEWING MACHINE OPERATOR [employer] Roadside Mechanic /merchandise manager, today at 1pm Future Visits Scheduled: Future Appointments-next 60 days Date/Time Provider Specialty Dept Phone 06/19/2023 2:30 PM [facility] Gene Roadside Mechanic [facility] [phone] 06/19/2023 3:30 PM Laboratory [facility] [phone] 06/20/2023 10:30 AM [facility] Roadside Mechanic [facility] [phone] 06/28/2023 1:00 PM (Arrive by 12:45 PM) Christo Burk MD Orthopedics [phone] 06/28/2023 2:15 PM (Arrive by 2:00 PM) [email or web address] [facility] Radiology [phone] 07/02/2023 4:00 PM Ladi Joseph RN [facility] [phone] 08/22/2023 3:00 PM (Arrive by 2:45 PM) Aime Casas MD Neurological Surgery [phone] 08/27/2023 3:00 PM (Arrive by 2:45 PM) Brennan Wasserman MD Allergy & Immunology [phone] 10/01/2023 2:00 PM (Arrive by 1:45 PM) Amaya Singleton PA-C Cardiology [phone] 11/23/2023 2:40 PM (Arrive by 2:25 PM) Sotero Pizano MD Family Medicine [phone] 11/27/2023 2:00 PM (Arrive by 1:45 PM) Vernell Kimball PA-C Neurology [phone] 12/10/2023 3:30 PM Nurse Annual Wellness [facility] [phone] 04/08/2024 3:15 PM (Arrive by 3:00 PM) Mario Kong MD Hematology Oncology [phone] Laurie Cabrera, RN documented in this encounter Plan of Treatment Upcoming Encounters Date Type Specialty Care Team Description 06/19/2023 Laboratory Laboratory [place] [address] [place] [address] 06/20/2023 Scheduled Telephone [facility] Softball Coach, [facility] [address] [place] [address] 06/28/2023 Office Visit Orthopedics Christo Burk MD [address] [place] [phone] 06/28/2023 Imaging Radiology 07/02/2023 Home Visit [facility] Ladi Joseph RN [address] [employer] [place] [address] 08/22/2023 Office Visit Neurological Surgery Aime Casas MD [address] [place] [address] 08/27/2023 Office Visit Allergy & Immunology Brennan Wasserman MD [address] [place] [address] 10/01/2023 Office Visit Cardiology Amaya Singleton PA-C [address] [place] [address] 11/23/2023 Office Visit Family Medicine Sotero Pizano MD [address] [place] [facility] [place] [address] 11/27/2023 Office Visit Neurology Vernell Kimball PA-C [address] [facility] [place] [address] 12/10/2023 Nurse Only [facility], Nurse [facility] Well[facility] [address] [facility] [address] 04/08/2024 Office Visit [facility]ematology Oncology [facility] [address] [facility] [address] Health Maintenance Due Date Last Done Comments [...] Over 12/07/2023 12/07/2022 CKD PHOS USE SMARTSET 12412 03/16/202403/05, 03/29/2022, 05/13/2021, Additional history exists CKD HGB USE SMARTSET 61304 04/25/202404/25, 04/25/2023, 04/06/2023, Additional history exists Diabetes [...] this encounter Medical Devices Implanted Type Area Biofuels Operations Manager Device Identifier Shelf Expiration Date Model / Serial / Lot Terumo Microvention Hydrosoft 3d Implanted:Qty: 1 on 08/16/2018 by Aime Casas MD at [place] [facility] [place] N/A: Head [employer] : INTERVENTIONA 07/05/2023 [id number] / [id number] / [id number] Hd Offset Hum 46x16 - [id number] Implanted:Qty: 1 on 09/28/2020 by Teresa Rehman DO at OR [facility] Left: Shoulder DJO SURGICAL 06/17/2026 520-46-31 6 / / [id number] documented as of this encounter Advance Directives [...] and were consensually agreed upon. Care Teams Driller Helper Relationship Specialty Start Date End Date May, Sotero Sutton MD [address] [place] [address] PCP - General Family Medicine 12/07/22 documented as of this encounter
--- OUTSIDE RECORDS SUMMARY | 2023-11-15 04:36 | External Medical Summary | Summary of Care ---
Author Name Unknown Organization [facility] Address [address] [place] [address] Phone [phone] Care Team Providers Care Computer Architect Name Role Phone Sotero Pizano MD Primary Care Provider [phone] Reason for Visit * Reason Onset Date Comments [facility]: Maintenance 06/18/2023 Encounter Details Date Type Department Care Team Description 06/18/2023 Telephone [facility], [facility] [address] [place] [address] [facility], Nurse [facility] [address] [place] [address] [facility]: Maintenance Allergies Active Allergy [...] 03/15/2022 Active Vitamin D (Ergocalciferol) 1.25 MG (15066 UT) Oral Capsule TAKE ONE CAPSULE BY [...] mRNA, LNP-s, No Pre serve, 2-Dose Series (TeliApp) 02/17/2021,01/27/2021 Pneumococcal Polysaccharide PPV23 (Pneumovax) Seasonal Influenza, [...] Medical Command Phone Encounter [facility] Phone Encounter Thank you for your assistance in the care of this patient today. Reviewed phone message regarding the patient's weight and [facility] findings. Please see below for the [...] note were not included. [facility] that patient is triggering for her and needs [facility] scale transferrred to [facility] TT sent to [facility] role to transfer scale to [facility] Call to patient to check status of [...] Specialty Care Team Description 06/19/2023 Laboratory Laboratory [facility] [address] [place] [address] 06/28/2023 Office Visit Orthopedics Christo Burk MD [address] [place] [address] 06/28/2023 Imaging Radiology 07/02/2023 [facility] Visit [facility] Ladi Joseph RN [address] [place] [address] 08/22/2023 Office Visit Neurological Surgery Aime Casas MD [address] [place] [address] 08/27/2023 Office Visit Allergy & Immunology Brennan Wasserman MD [address] [place] [address] 10/01/2023 Office Visit Cardiology Amaya Singleton PA-C [address] [place] [address] 11/23/2023 Office Visit Family Medicine Sotero Pizano MD [address] [place] [address] 11/27/2023 Office Visit Neurology Vernell Kimball PA-C [address] [facility] [place] [address] 12/10/2023 Nurse Only [facility] Nurse [facility] [address] [place] [address] 04/08/2024 Office Visit Hematology Oncology Mario Kong MD [address] [place] [address] Health Maintenance Due Date Last Done Comments [...] Over 12/07/2023 12/07/2022 CKD PHOS USE SMARTSET 04339 03/16/202403/05, 03/29/2022, 05/13/2021, Additional history exists CKD HGB USE SMARTSET 54900 04/25/202404/25, 04/25/2023, 04/06/2023, Additional history exists Diabetes [...] this encounter Medical Devices Implanted Type Area Animal Doctor Device Identifier Shelf Expiration Date Model / Serial / Lot Terumo Microvention Hydrosoft 3d Implanted:Qty: 1 on 08/16/2018 by Aime Casas MD at [place] [facility] N/A: Head [employer] : INTERVENTIONA 07/05/2023 [id number] / [id number] / [id number] Hd Offset Hum 46x16 - [id number] Implanted:Qty: 1 on 09/28/2020 by Teresa Rehman DO at OR [facility] Left: Shoulder DJO SURGICAL 06/17/2026 520-46-31 6 / / [id number] documented as of this encounter Advance Directives [...] and were consensually agreed upon. Care Teams Computer Architect Relationship Specialty Start Date End Date March, Sotero Sutton MD [address] [place] [address] PCP - General Family Medicine 12/07/22 documented as of this encounter
--- OUTSIDE RECORDS SUMMARY | 2023-11-15 04:36 | External Medical Summary | Summary of Care ---
Author Name Unknown Organization [facility] Address [address] [facility] [place] [address] Phone [phone] Care Team Providers Care Aviation Ordnance Officer Name Role Phone Sotero Pizano MD Primary Care Provider [phone] Reason for Visit * Reason Onset Date Comments [facility]: Maintenance 06/19/2023 Encounter Details Date Type Department Care Team Description 06/19/2023 Scheduled Telephone [facility], [facility] [address] [place] [address] Coordinator, [facility] [address] [place] [address] Allergies Active Allergy Reactions Severity Noted Date [...] 03/15/2022 Active Vitamin D (Ergocalciferol) 1.25 MG (39031 UT) Oral Capsule TAKE ONE CAPSULE BY [...] or helping SOB Josefina Cabrera RN, BSN [facility] Intake Triage Coordinator [phone] * Telephone Encounter - Laurie Cabrera RN - 06/19/2023 10:17 AM EDT Images from the original note were not included. [facility] Telephonic Nurse Follow-Up Call [facility] Subprogram: Focused Care Management (3-9 months) [...] Follow up call scheduled for tomorrow with [employer] Head Animal Keeper /manager home improvement, today at 1pm Future Visits Scheduled: Future Appointments-next 60 days Date/Time Provider Specialty Dept Phone 06/19/2023 2:30 PM [facility] Head Animal Keeper [facility] [phone] 06/19/2023 3:30 PM Laboratory [place] [facility] [phone] 06/20/2023 10:30 AM [facility] Head Animal Keeper [facility] [phone] 06/28/2023 1:00 PM (Arrive by 12:45 PM) Christo Burk MD Orthopedics [phone] 06/28/2023 2:15 PM (Arrive by 2:00 PM) [facility] Radiology [phone] 07/02/2023 4:00 PM Ladi Joseph RN [facility] [phone] 08/22/2023 3:00 PM (Arrive by 2:45 PM) Aime Csaas MD Neurological Surgery [phone] 08/27/2023 3:00 PM (Arrive by 2:45 PM) Brennan Wasserman MD Allergy & Immunology [phone] 10/01/2023 2:00 PM (Arrive by 1:45 PM) Amaya Singleton PA-C Cardiology [phone] 11/23/2023 2:40 PM (Arrive by 2:25 PM) Sotero Pizano MD Family Medicine [phone] 11/27/2023 2:00 PM (Arrive by 1:45 PM) Vernell Kimball PA-C Neurology [phone] 12/10/2023 3:30 PM Nurse [facility] [place] [facility] [phone] 04/08/2024 3:15 PM (Arrive by 3:00 PM) Mario Kong MD Hematology Oncology [phone] Laurie Cabrera, RN documented in this encounter Plan of Treatment Upcoming Encounters Date Type Specialty Care Team Description 06/19/2023 Laboratory Laboratory [place] [address] [facility] [address] 06/20/2023 Scheduled Telephone [facility] Equipment Test Engineer, Linda Zimmerman [address] [place] [address] 06/28/2023 Office Visit Orthopedics Christo Burk MD [address] [place] [phone] 06/28/2023 Imaging Radiology 07/02/2023 Home Visit [facility] Ladi Joseph RN [address] [place] [address] 08/22/2023 Office Visit Neurological Surgery Aime Casas MD [address] [place] [address] 08/27/2023 Office Visit Allergy & Immunology Brennan Wasserman MD [address] [place] [address] 10/01/2023 Office Visit Cardiology Amaya Singleton PA-C [address] [place] [address] 11/23/2023 Office Visit Family Medicine Sotero Pizano MD [address] [place] [address] 11/27/2023 Office Visit Neurology Vernell Kimball PAJeimyC [address] [place] [address] 12/10/2023 Nurse Only [facility] Nurse [facility] [address] [place] [address] 04/08/2024 Office Visit Hematology Oncology Mario Kong MD [address] [place] [address] Health Maintenance Due Date Last Done Comments [...] Over 12/07/2023 12/07/2022 CKD PHOS USE SMARTSET 22310 03/16/202403/05, 03/29/2022, 05/13/2021, Additional history exists CKD HGB USE SMARTSET 47398 04/25/202404/25, 04/25/2023, 04/06/2023, Additional history exists Diabetes [...] this encounter Medical Devices Implanted Type Area Product Marketing Programs Manager Device Identifier Shelf Expiration Date Model / Serial / Lot Terumo Microvention Hydrosoft 3d Implanted:Qty: 1 on 08/16/2018 by Aime Casas MD at [place] [facility] N/A: Head [employer] : INTERVENTIONA 07/05/2023 3867-3295 / [id number] / [id number] Hd Offset Hum 46x16 - [id number] Implanted:Qty: 1 on 09/28/2020 by Teresa Rehman DO at OR [facility] Left: Shoulder DJO SURGICAL 06/17/2026 [id number] documented as of this encounter Advance Directives [...] and were consensually agreed upon. Care Teams Aviation Ordnance Officer Relationship Specialty Start Date End Date March, Sotero Sutton MD [address] [place] [address] PCP - General Family Medicine 12/07/22 documented as of this encounter
--- OUTSIDE RECORDS SUMMARY | 2023-11-15 04:37 | External Medical Summary | Summary of Care ---
Author Name Unknown Organization [facility] Address [address] [place] [address] Phone [phone] Care Team Providers Care Gis Mapping Technician Name Role Phone Sotero Pizano MD Primary Care Provider Reason for Visit * Reason Onset Date Comments [facility]: Maintenance 06/18/2023 Encounter Details Date Type Department Care Team Description 06/18/2023 Telephone [facility], [facility] [address] [place] [address] [facility], Nurse [facility] [address] [place] [address] [facility]: Maintenance Allergies Active Allergy [...] 03/15/2022 Active Vitamin D (Ergocalciferol) 1.25 MG (71175 UT) Oral Capsule TAKE ONE CAPSULE BY [...] mRNA, LNP-s, No Pre serve, 2-Dose Series (VIDDIX) 02/17/2021,01/27/2021 Pneumococcal Polysaccharide PPV23 (Pneumovax) Seasonal Influenza, [...] Medical Command Phone Encounter [facility] Phone Encounter Thank you for your assistance in the care of this patient today. Reviewed phone message regarding the patient's weight and [facility] findings. Please see below for the response to the trigger: Although the patient is within her baseline weight she is reporting symptoms of shortness of breathand abdominal bloating. She reportedly took 10 mg extra Demadex this morning. Her normal dose is 20mg in the a.m. and 10 mg Recommendations: Patient a for evening I am 45 her a.m. dose tomorrow and then back to normal arm remaining consider increasing her 20 twice daily I [...] note were not included. Received call from [facility] Josefina Capone that patient is triggering for her and needs [facility] scale transferrred to [facility] TT sent to [facility] role to transfer scale to [facility] Call to patient to check status [...] Specialty Care Team Description 06/19/2023 Laboratory Laboratory [facility] [address] [place] [address] 06/28/2023 Office Visit Orthopedics Christo Burk MD [address] [place] [address] 06/28/2023 Imaging Radiology 07/02/2023 Home Visit [facility] Ladi Joseph RN [address] [place] [address] 08/22/2023 Office Visit Neurological Surgery Aime Casas MD [address] [place] [address] 08/27/2023 Office Visit Allergy & Immunology Brennan Wasserman MD [address] [place] [address] 10/01/2023 Office Visit Cardiology Amaya Singleton PA-C [address] [place] [address] 11/23/2023 Office Visit Family Medicine Sotero Pizano MD [address] [place] [address] 11/27/2023 Office Visit Neurology Vernell Kimball PA-C [address] [place] [address] 12/10/2023 Nurse Only [facility], Nurse [facility] [address] [place] [address] 04/08/2024 Office Visit Hematology Oncology Mario Kong MD [address] [place] [address] Health Maintenance Due Date Last Done Comments [...] Over 12/07/2023 12/07/2022 CKD PHOS USE SMARTSET 81199 03/16/202403/05, 03/29/2022, 05/13/2021, Additional history exists CKD HGB USE SMARTSET 87012 04/25/202404/25, 04/25/2023, 04/06/2023, Additional history exists Diabetes [...] this encounter Medical Devices Implanted Type Area Laborer Marine Terminal Device Identifier Shelf Expiration Date Model / Serial / Lot Terumo Microvention Hydrosoft 3d Implanted:Qty: 1 on 08/16/2018 by Aime Casas MD [place] [facility] [place] N/A: Head [employer] : INTERVENTIONA 07/05/2023 2320-1430 / [id number] / [id number] Hd Offset Hum 46x16 - [id number] Implanted:Qty: 1 on 09/28/2020 by Teresa Rehman DO at OR [facility] Left: Shoulder DJO SURGICAL 06/17/2026 520-46-31 6 / / [id number] documented as of this encounter Advance Directives [...] and were consensually agreed upon. Care Teams Gis Mapping Technician Relationship Specialty Start Date End Date March, Sotero Sutton MD [address] [facility] [place] [id number] PCP - General Family Medicine 12/07/22 documented as of this encounter
--- OUTSIDE RECORDS SUMMARY | 2023-11-15 04:37 | External Medical Summary | Summary of Care ---
Author Name Unknown Organization [facility] Address [address] [place] [address] Phone [phone] Care Team Providers Care Photographer Helper Name Role Phone Sotero Pizano MD Primary Care Provider [phone] Reason for Visit * Reason Onset Date Comments Advice 06/01/2023 Encounter Details Date Type Department Care Team Description 06/01/2023 Telephone [facility], [facility] [address] [facility] [place] [address] Ladi Joseph RN [address] [employer] [facility] [place] [address] Advice Allergies Active Allergy Reactions Severity Noted [...] as of this encounter (statuses as of 06/06/2023) Medications Medication Sig Dispensed Refills Start Date [...] 03/15/2022 Active Vitamin D (Ergocalciferol) 1.25 MG (70448 UT) Oral Capsule TAKE ONE CAPSULE BY [...] WITH FOOD. 90 Tablet 2 05/27/2023 Active Pregabalin 25 MG Oral Capsule (Lyrica) Take 1 capsule at night x 1 week then increase to 1 capsule twice daily. 60 Capsule 1 05/25/2023 Active documented as of this encounter (statuses as of 06/06/2023) Active Problems Problem Noted Date Iron deficiency [...] as of this encounter (statuses as of 06/06/2023) Resolved Problems Problem Noted Date Resolved Date [...] as of this encounter (statuses as of 06/06/2023) Immunizations Name Administration Dates Next Due COVID-19 mRNA, LNP-s, No Pre serve, 2-Dose Series (Bluespec) 02/17/2021,01/27/2021 Pneumococcal Polysaccharide PPV23 (Pneumovax) Seasonal Influenza, [...] Telephone Encounter - Ladi Joseph RN - 06/01/2023 1:42 PM EDT Pt wants to let you know that she has had no improvement in neuropathy pain with the lyrica 25mg daily. She is going to start the twice a day dose tonight. She reports you had discussed possibly increasing it if no effect. Please advise. Thank you. documented in this encounter Plan of Treatment Upcoming Encounters Date Type Specialty Care Team Description 06/18/2023 Laboratory Laboratory [facility] [address] [place] [address] 06/28/2023 Office Visit Orthopedics Christo Burk MD [address] [place] [address] 06/28/2023 Imaging Radiology 07/02/2023 [facility] Visit [facility] [place] Ladi Joseph RN [address] [place] [address] 08/22/2023 Office Visit Neurological Surgery Aime Casas MD [address] [place] [address] 08/27/2023 Office Visit Allergy & Immunology Brennan Wasserman MD [address] [place] [address] 10/01/2023 Office Visit Cardiology Amaya Singleton PA-C [address] [place] [address] 11/23/2023 Office Visit Family Medicine Sotero Pizano MD [address] [place] [address] 11/27/2023 Office Visit Neurology Vernell Kimball PA-C [address] [place] [address] 12/10/2023 Nurse Only Ancillary Nurse [facility] [address] [facility] [place] [address] 04/08/2024 Office Visit Hematology Oncology [facility] [address] [facility] [address] Health Maintenance Due Date Last Done Comments [...] Over 12/07/2023 12/07/2022 CKD PHOS USE SMARTSET 61012 03/16/202403/05, 03/29/2022, 05/13/2021, Additional history exists CKD HGB USE SMARTSET 10511 04/25/202404/25, 04/25/2023, 04/06/2023, Additional history exists Diabetes [...] this encounter Medical Devices Implanted Type Area Sewage Disposal Engineer Device Identifier Shelf Expiration Date Model / Serial / Lot Terumo Microvention Hydrosoft 3d Implanted:Qty: 1 on 08/16/2018 by Aime Casas MD at OR [facility] N/A: Head [employer] : INTERVENTIONA 07/05/2023 0398-6869 / [id number] / [id number] Hd Offset Hum 46x16 - [id number] Implanted:Qty: 1 on 09/28/2020 by Teresa Rehman DO at OR [facility] Left: Shoulder DJO SURGICAL 06/17/2026 520-46-31 6 / / [id number] documented as of this encounter Advance Directives [...] and were consensually agreed upon. Care Teams Photographer Helper Relationship Specialty Start Date End Date March, Sotero Sutton MD [address] [place] [address] PCP - General Family Medicine 12/07/22 documented as of this encounter
--- OUTSIDE RECORDS SUMMARY | 2023-11-15 04:37 | External Medical Summary | Summary of Care ---
Author Name Unknown Organization [facility] Address [address] [facility] [place] [address] Phone [phone] Care Team Providers Care Invas Tech Name Role Phone Maine Dumont MD Primary Care Provider [phone] Reason for Visit * Reason Onset Date Comments Medication Refill 06/01/2023 Encounter Details Date Type Department Care Team Description 06/01/2023 [facility] [address] [place] [address] Ladi Joseph, RN [address] [place] [address] HTN, goal below 140/90*; Chronic kidney disease, stage 3b (HCC) Allergies Active Allergy Reactions Severity Noted [...] as of this encounter (statuses as of 06/04/2023) Medications Medication Sig Dispensed Refills Start Date [...] 03/15/2022 Active Vitamin D (Ergocalciferol) 1.25 MG (47680 UT) Oral Capsule TAKE ONE CAPSULE BY [...] 03/05/2023 Active Torsemide 10 MG Oral Tablet (Demadex)Indicatio [...] twice daily. 60 Capsule 1 05/25/2023 Active Losartan Potassium 25 MG Oral Tablet (Cozaar)Indication s:Chronic kidney disease, stage 3b (HCC),HTN, goal below 140/90 Take 0.5 Tablets by mouth in the morning. 34 Tablet 11 06/02/2023 Active Magnesium 200 MG Oral Tablet ChewableIndication s:Chronic kidney disease, stage 3b (HCC) Take 400 mg by mouth in the morning. 180 Tablet 3 06/02/2023 Active Losartan Potassium 25 MG Oral Tablet (Cozaar) Take 0.5 Tablets (12.5 mg) by mouth in the morning. 34 Tablet 11 09/29/2022 3 Discontinue d(Refill) Magnesium 200 MG Oral Tablet ChewableIndication s:Chronic kidney disease, stage 3b (HCC) Take 400 mg by mouth in the morning. 180 Tablet 3 03/16/2023 3 Discontinue d(Refill) documented as of this encounter (statuses as of 06/04/2023) Active Problems Problem Noted Date Iron deficiency [...] as of this encounter (statuses as of 06/04/2023) Resolved Problems Problem Noted Date Resolved Date [...] as of this encounter (statuses as of 06/04/2023) Immunizations Name Administration Dates Next Due COVID-19 mRNA, LNP-s, No Pre serve, 2-Dose Series (Stylr) 02/17/2021,01/27/2021 Pneumococcal Polysaccharide PPV23 (Pneumovax) Seasonal Influenza, [...] encounter Miscellaneous Notes * Telephone Encounter - Rae Loving senior analyst programmer - 06/04/2023 9:29 AM EDT [facility] calling regarding Magnesium 200 MG Oral Tablet Chewable. [facility] reports they are NOT able to obtain Magnesium CHEWABLE TABS in 200 or 400 MG. Requesting if rx can be switched to solid TAB form. Please review and advise- new rx can be sent to [id number] Thank you, Rae Loving Cafe Or Restaurant Manager [facility] ([facility]) 06/04/2023,9:29 AM * Telephone Encounter - Maine Dumont MD - 06/02/2023 10:08 PM EDTSigned Prescriptions: Disp Refills Losartan Potassium 25 MG Oral Tablet (Coza*34 Tab*11 Sig: Take 0.5 Tablets by mouth in the morning. Authorizing Provider: MAINE DUMONT Magnesium 200 MG Oral Tablet Chewable 180 Ta*3 Sig: Take 400 mg by mouth in the morning. Authorizing Provider: MAINE DUMONT * Telephone Encounter - Ladi Joseph RN - 06/01/2023 2:16 PM EDT Pt in need of refills of Losartan and Magnesium. Orders pended for your review and signature. Pharmacy is [facility] in [place]. Thank you!! documented in this encounter Plan of Treatment Upcoming Encounters Date Type Specialty Care Team Description 06/04/2023 Imaging Radiology 06/05/2023 Imaging Radiology 06/06/2023 PulmDiagnostic Pulmonary Function [place] [place] [address] 06/18/2023 Laboratory Laboratory [address] [address] 06/28/2023 Office Visit Orthopedics Christo Burk MD [address] [facility] [place] [address] 07/02/2023 [facility] Ladi Joseph RN [address] [place] [address] 08/22/2023 Office Visit Neurological Surgery Aime Casas MD [address] [place] [address] 08/27/2023 Office Visit Allergy & Immunology Brennan Wasserman MD [address] [place] [address] 10/01/2023 Office Visit Cardiology Amaya Singleton PA-C [address] [place] [address] 11/23/2023 Office Visit Family Medicine Maine Dumont MD [address] [place] [address] 11/27/2023 Office Visit Neurology Vernell Kimball PA-C [address] [place] [address] 12/10/2023 Nurse Only [facility] Nurse Annual [facility] [address] [place] [address] 04/08/2024 Office Visit Hematology Oncology Mario Kong MD [address] [place] [address] Health Maintenance Due Date Last Done Comments [...] Over 12/07/2023 12/07/2022 CKD PHOS USE SMARTSET 50847 03/16/202403/05, 03/29/2022, 05/13/2021, Additional history exists CKD HGB USE SMARTSET 91546 04/25/202404/25, 04/25/2023, 04/06/2023, Additional history exists Diabetes [...] this encounter Medical Devices Implanted Type Area Junior Systems Engineer Device Identifier Shelf Expiration Date Model / Serial / Lot PenBlade Microvention Hydrosoft 3d Implanted:Qty: 1 on 08/16/2018 by Aime Casas MD at OR [facility] N/A: Head [employer] : INTERVENTIONA 07/05/2023 0617-2313 / [id number] / [id number] Hd Offset Hum 46x16 - [id number] Implanted:Qty: 1 on 09/28/2020 by Teresa Rehman DO at OR [facility] Left: Shoulder DJO SURGICAL 06/17/2026 520-46-31 6 / / [id number] documented as of this encounter Visit Diagnoses Diagnosis HTN, goal below 140/90- Primary Unspecified essential hypertension Chronic kidney disease, stage 3b (HCC) documented in this encounter Advance Directives [...] and were consensually agreed upon. Care Teams Invas Tech Relationship Specialty Start Date End Date May, Maine Sutton MD [address] [place] [address] PCP - General Family Medicine 12/07/22 documented as of this encounter
--- OUTSIDE RECORDS SUMMARY | 2023-11-15 04:37 | External Medical Summary | Summary of Care ---
Author Name Unknown Organization [facility] Address [address] [place] [address] Phone [phone] Care Team Providers Care Invoice Machine Operator Name Role Phone Sotero Pizano MD Primary Care Provider [phone] Reason for Visit * Reason Onset Date Comments [facility]: Maintenance 06/18/2023 Encounter Details Date Type Department Care Team Description 06/18/2023 Telephone [facility], [facility] [address] [place] [address] [facility], Nurse [facility] [address] [place] [address] [facility]: Maintenance Allergies Active Allergy [...] 03/15/2022 Active Vitamin D (Ergocalciferol) 1.25 MG (13764 UT) Oral Capsule TAKE ONE CAPSULE BY [...] mRNA, LNP-s, No Pre serve, 2-Dose Series (Firma[employer]) 02/17/2021,01/27/2021 Pneumococcal Polysaccharide PPV23 (Pneumovax) Seasonal Influenza, [...] note were not included. Received call from [facility] Josefina Capone that patient is triggering for her and needs [facility] scale transferrred to [facility] TT sent to [facility] role to transfer scale to [facility] Call to patient to check status [...] Specialty Care Team Description 06/19/2023 Laboratory Laboratory [place], [facility] [address] [place] [facility] [place] [address] 06/28/2023 Office Visit Orthopedics Christo Burk MD [address] [place] [address] 06/28/2023 Imaging Radiology 07/02/2023 Home Visit [facility] Ladi Joseph RN [address] [place] [address] 08/22/2023 Office Visit Neurological Surgery Aime Casas MD [address] [place] [address] 08/27/2023 Office Visit Allergy & Immunology Brennan Wasserman MD [address] [place] [address] 10/01/2023 Office Visit Cardiology Amaya Singleton PAJeimyC [address] [facility] [place] [address] 11/23/2023 Office Visit Family Medicine Sotero Pizano MD [address] [place] [address] 11/27/2023 Office Visit Neurology Vernell Kimball PA-C [address] [place] [address] 12/10/2023 Nurse Only [facility], Nurse [facility] [address] [place] [address] 04/08/2024 Office Visit Hematology Oncology Mario Kong MD [address] [place] [address] Health Maintenance Due Date Last Done Comments [...] Over 12/07/2023 12/07/2022 CKD PHOS USE SMARTSET 98916 03/16/202403/05, 03/29/2022, 05/13/2021, Additional history exists CKD HGB USE SMARTSET 65711 04/25/202404/25, 04/25/2023, 04/06/2023, Additional history exists Diabetes [...] this encounter Medical Devices Implanted Type Area Acid Pumper Device Identifier Shelf Expiration Date Model / Serial / Lot Terumo Microvention Hydrosoft 3d Implanted:Qty: 1 on 08/16/2018 by Aime Casas MD at OR [facility] N/A: Head [employer] : INTERVENTIONA 07/05/2023 [id number] / [id number] / [id number] Hd Offset Hum 46x16 - [id number] Implanted:Qty: 1 on 09/28/2020 by Teresa Rehman DO at OR [facility] Left: Shoulder DJO SURGICAL 06/17/2026 520-46-31 [id number] documented as of this encounter Advance Directives [...] and were consensually agreed upon. Care Teams Invoice Machine Operator Relationship Specialty Start Date End Date March, Sotero Sutton MD [address] [place] [address] PCP - General Family Medicine 12/07/22 documented as of this encounter
--- OUTSIDE RECORDS SUMMARY | 2023-11-15 04:37 | External Medical Summary | Summary of Care ---
Author Name Unknown Organization [facility] Address [address] [facility] [place] [address] Phone [phone] Care Team Providers Care Pinmaker Name Role Phone Maine Dumont MD Primary Care Provider [phone] Reason for Visit * Reason Onset Date Comments Medication Refill 06/01/2023 Encounter Details Date Type Department Care Team Description 06/01/2023 [facility]ill [facility], [facility] [address] [place] [address] Ladi Joseph, RN [address] [place] [address] HTN, goal below 140/90*; Chronic kidney disease, [...] as of this encounter (statuses as of 06/02/2023) Medications Medication Sig Dispensed Refills Start Date [...] 03/15/2022 Active Vitamin D (Ergocalciferol) 1.25 MG (75785 UT) Oral Capsule TAKE ONE CAPSULE BY [...] as of this encounter (statuses as of 06/02/2023) Active Problems Problem Noted Date Iron deficiency [...] as of this encounter (statuses as of 06/02/2023) Resolved Problems Problem Noted Date Resolved Date [...] as of this encounter (statuses as of 06/02/2023) Immunizations Name Administration Dates Next Due COVID-19 mRNA, LNP-s, No Pre serve, 2-Dose Series ([employer]) 02/17/2021,01/27/2021 Pneumococcal Polysaccharide PPV23 (Pneumovax) Seasonal Influenza, [...] for your review and signature. Pharmacy is [facility]. Thank you!! documented in this encounter Plan of Treatment Upcoming Encounters Date Type Specialty Care Team Description 06/04/2023 Imaging Radiology 06/05/2023 Imaging Radiology 06/06/2023 PulmDiagnostic Pulmonary Function [place], Pft [address] [place] [address] 06/18/2023 Laboratory Laboratory [facility] Laboratory [address] [place] [address] 06/28/2023 Office Visit Orthopedics Christo Burk MD [address] [facility] [place] [phone] 07/02/2023 Home Visit [facility] Ladi Joseph RN [address] [place] [address] 08/22/2023 Office Visit Neurological Surgery Aime Casas MD [address] [place], [place] [address] 08/27/2023 Office Visit Allergy & Immunology Brennan Wasserman MD [address] [place] [address] 10/01/2023 Office Visit Cardiology Amaya Singleton PA-C [address] [facility] [address] 11/23/2023 Office Visit Family Medicine Maine Dumont MD [address] [place] [address] 11/27/2023 Office Visit Neurology Vernell Kimball PA-C [address] [facility] [place] [address] 12/10/2023 Nurse Only [facility] [place], Nurse [facility] [address] [place] [facility] [place] [address] 04/08/2024 Office Visit Hematology Oncology Mario Kong MD [address] [place] [address] Health Maintenance Due Date Last Done Comments [...] Over 12/07/2023 12/07/2022 CKD PHOS USE SMARTSET 89446 03/16/202403/05, 03/29/2022, 05/13/2021, Additional history exists CKD HGB USE SMARTSET 79568 04/25/202404/25, 04/25/2023, 04/06/2023, Additional history exists Diabetes [...] encounter Medical Devices Implanted Type Area Customer Service Coordinator Device Identifier Shelf Expiration Date Model / Serial / Lot Terumo Microvention Hydrosoft 3d Implanted:Qty: 1 on 08/16/2018 by Aime Casas MD at OR [facility] N/A: Head [employer] : INTERVENTIONA 07/05/2023 [id number] / [id number] / [id number] Hd Offset Hum 46x16 - [id number] Implanted:Qty: 1 on 09/28/2020 by Teresa Rehman DO at OR [facility] Left: Shoulder DJO SURGICAL 06/17/2026 520-46-31 6 / / [id number] documented as of this encounter Visit Diagnoses [...] and were consensually agreed upon. Care Teams Pinmaker Relationship Specialty Start Date End Date March, Maine Sutton MD [address] [place] [address] PCP - General Family Medicine 12/07/22 documented as of this encounter
--- OUTSIDE RECORDS SUMMARY | 2023-11-15 04:37 | External Medical Summary | Summary of Care ---
Author Name Unknown Organization [facility] Address [address] [place] [address] Phone [phone] Care Team Providers Care Corporate Accounting Manager Name Role Phone Sotero Pizano MD Primary Care Provider [phone] Reason for Visit * Reason Comments [facility]: Maintenance Encounter Details Date Type Department Care Team Description 06/01/2023 Home Visit [facility], [facility] [address] [place] [address] Ladi Joseph RN [address] [place] [address] Allergies Active Allergy Reactions Severity Noted Date [...] as of this encounter (statuses as of 06/01/2023) Medications Medication Sig Dispensed Refills Start Date [...] 03/15/2022 Active Vitamin D (Ergocalciferol) 1.25 MG (28119 UT) Oral Capsule TAKE ONE CAPSULE BY MOUTH MONTHLY 12 Capsule 0 05/03/2022 Active Fluticasone Propionate 50 MCG/ACT Nasal Suspension (Flonase) Administer 2 Sprays into nostril in the morning. 0 Active Losartan Potassium 25 MG Oral Tablet (Cozaar) Take 0.5 Tablets (12.5 mg) by mouth in the morning. 34 Tablet 11 09/29/2022 Active Docusate Sodium 100 MG Oral Capsule [...] AT BEDTIME 90 Tablet 3 03/05/2023 Active Magnesium 200 MG Oral Tablet ChewableIndications :Chronic kidney disease, stage 3b (HCC) Take 400 mg by mouth in the morning. 180 Tablet 3 03/16/2023 Active Torsemide 10 MG Oral Tablet (Demadex)Indication [...] as of this encounter (statuses as of 06/01/2023) Active Problems Problem Noted Date Iron deficiency [...] as of this encounter (statuses as of 06/01/2023) Resolved Problems Problem Noted Date Resolved Date [...] as of this encounter (statuses as of 06/01/2023) Immunizations Name Administration Dates Next Due COVID-19 [...] Sign Reading Time Taken Comments Blood Pressure 118/68 06/01/2023 1:50 PM EDT Pulse 66 06/01/2023 1:50 PM EDT Temperature 36.2 C (97.1 F) 06/01/2023 1:50 PM ED T Respiratory Rate 18 06/01/2023 1:50 PM EDT Oxygen Saturation 96% 06/01/2023 1:50 PM EDT Inhaled Oxygen Concentration - - Weight 117.8 kg (259 lb 9.6 oz) 06/01/2023 1:50 PM EDT Height - - Body Mass Index 43.2 05/23/2023 12:44 PM EDT documented in this encounter Functional [...] Progress Notes * Ladi Joseph RN - 06/01/2023 2:30 PM EDT Images from the original note were not included. [facility] Anchor Tacker Visit Date: 06/01/2023 Time: 2:04 PM Name: Kristen Garcia : 1955 Current Concerns: Pt seen for return RNCM visit Saw neurology last week and started on Lyrica for neuropathy pain - pt reports She does not feel itis doing much now TE sent to neuro with update Also referred to ortho for potential surgery for left ulnar neuropathy Pt has chronic issues with constipation She has been taking Docusate daily but does not seem to help She does have miralax and will try Will also get Senna and take if needed Wts have been stable No increased SOB or cough No increase in LE edema Physical Exam: BP 118/68 | Pulse 66 | Temp 36.2 C (97.1 F) | Resp 18 | Wt 117.8 kg (259 lb 9.6 oz) | SpO2 96% | BMI 43.20 kg/m | BSA 2.32 m Pain 6 Physical Exam Constitutional: General: She is not [...] Problems/Symptoms: Review of Systems Constitutional: Negative. HENT: Positive for tinnitus (left ear, intermittent). Eyes: Negative. Respiratory: Positive for shortness of breath (at baseline). Cardiovascular: Positive for leg swelling. Gastrointestinal: Negative. Genitourinary: Negative. Musculoskeletal: Positive for arthralgias. Skin: Negative. Neurological: Positive for numbness (neuropathy, hands and feet). Psychiatric/Behavioral: Negative. Medication Reconciliation: (See medication list) Does patient take medications as ordered: Yes Patient Well Being: PHQ2/9: No questionnaires available. No change in living situation. Denies falls [facility] Completed this Visit: No. Routine visit and No falls since last visit Advanced Care Planning: No documentation, ACP on file. Patient's Goals of Care: 1. Feel better 2. Walk better 3. Lose wt Reinforcement/Education: Reviewed HF symptom monitoring: [...] fall prevention. and Reinforced medication regimen. Timing., Dosing. and Purspose. Treatment/Plan: Continue meds as prescribed Duoneb qid prn proventil inhaler prn Elevate LE as much as possible Weigh self daily in am via [facility] Low Na diet DTP on file per cardiology Home Interventions Provided: Home Intervention: Other; Evaluation Reinforced current Plan of Care, including self-management and medication regimen Patient's 'Red Flags': 1. Wt gain of 3 lbs in 24 hrs or 5 lbs in one week 2. SOB with min exertion 3. Increased anxiety Patient Needs to Remember: Call [facility] at with any new or worsening [...] visits & schedule home visit with care trampoline team coach(s)as indicated. Provider is in agreement with Plan of Care: Yes Scheduled to follow up with patient in one month. Ladi Joseph RN 06/01/2023 2:04 PM documented in this encounter Plan of Treatment Upcoming Encounters Date Type Specialty Care Team Description 06/04/2023 Imaging Radiology 06/06/2023 PulmDiagnostic Pulmonary Function [place], [facility] [address] [place] [address] 06/18/2023 Laboratory Laboratory [address] [address] 06/28/2023 Office Visit Orthopedics Christo Burk MD [address] [place] [address] 07/02/2023 [facility] Visit [facility] Ladi Joseph RN [address] [place] [address] 08/22/2023 Office Visit Neurological Surgery Aime Casas MD [address] [place] [address] 08/27/2023 Office Visit Allergy & Immunology Brennan Wasserman MD [address] [place] [address] 10/01/2023 Office Visit Cardiology Amaya Singleton PA-C [address] [place] [address] 11/23/2023 Office Visit Family Medicine Sotero Pizano MD [address] [place] [address] 11/27/2023 Office Visit Neurology Vernell Kimball PA-C [address] [place] [address] 12/10[facility] [address] [facility] [place] [address] 04/08/2024 Office Visit Hematology Oncology Mario Kong MD [address] [facility] [place] [address] Health Maintenance Due Date Last Done Comments [...] Over 12/07/2023 12/07/2022 CKD PHOS USE SMARTSET 12856 03/16/202403/05, 03/29/2022, 05/13/2021, Additional history exists CKD HGB USE SMARTSET 14645 04/25/202404/25, 04/25/2023, 04/06/2023, Additional history exists Diabetes [...] this encounter Medical Devices Implanted Type Area Chief Transfer And Pumphouse Operator Device Identifier Shelf Expiration Date Model / Serial / Lot Terumo Microvention Hydrosoft 3d Implanted:Qty: 1 on 08/16/2018 by Aime Casas MD [place] [facility] [place]: Head [employer] : INTERVENTIONA 07/05/2023 [id number] / [id number] / [id number] Hd Offset Hum 46x16 - [id number] Implanted:Qty: 1 on 09/28/2020 by Teresa Rehman DO at OR [facility] Left: Shoulder DJO SURGICAL 06/17/2026 520-46-31 6 / / [id number] documented as of this encounter Advance Directives [...] and were consensually agreed upon. Care Teams Corporate Accounting Manager Relationship Specialty Start Date End Date March, Sotero Sutton MD [address] [place] [address] PCP - General Family Medicine 12/07/22 documented as of this encounter
--- OUTSIDE RECORDS SUMMARY | 2023-11-15 04:37 | External Medical Summary | Summary of Care ---
Author Name Unknown Organization [facility] Address [address] [facility] [place] [address] Phone [phone] Care Team Providers Care Ship'S Engineer Name Role Phone Sotero Pizano MD Primary Care Provider [phone] Reason for Visit * Reason Comments Edema Facial Encounter Details Date Type Department Care Team Description 06/10/2023 Convenient Care Visit [facility] [address] [facility] [place] [address] Joe Jerome PA-C [address] [place] [address] [address] Sialadenitis* Allergies Active Allergy Reactions Severity Noted Date [...] as of this encounter (statuses as of 06/10/2023) Medications Medication Sig Dispensed Refills Start Date [...] 03/15/2022 Active Vitamin D (Ergocalciferol) 1.25 MG (86065 UT) Oral Capsule TAKE ONE CAPSULE BY [...] days. 40 Capsule 0 06/10/2023 06/20/2023 Active documented as of this encounter (statuses as of 06/10/2023) Active Problems Problem Noted Date Iron deficiency [...] as of this encounter (statuses as of 06/10/2023) Resolved Problems Problem Noted Date Resolved Date [...] as of this encounter (statuses as of 06/10/2023) Immunizations Name Administration Dates Next Due COVID-19 [...] Sign Reading Time Taken Comments Blood Pressure 122/70 06/10/2023 3:41 PM EDT Pulse 79 06/10/2023 3:41 PM EDT Temperature 36.2 C (97.2 F) 06/10/2023 3:41 PM ED T Respiratory Rate 18 06/10/2023 3:41 PM EDT Oxygen Saturation 96% 06/10/2023 3:41 PM EDT Inhaled Oxygen Concentration - - Weight 116 kg (255 lb 12.8 oz) 06/10/2023 3:41 P M EDT Height 166.4 cm (5' 5.5") 06/10/2023 3:41 PM EDT Body Mass Index 41.92 06/10/2023 3:41 PM EDT documented in this [...] this encounter Patient Instructions * Patient Instructions* Joe Jerome PA-C - 06/10/2023 4:12 PM EDT Take the clindamycin Call your pcp tomorrow morning and schedule follow-up Recheck as needed Warm compresses and sialogogues may help as discussed documented in this encounter Progress Notes * Joe Jerome PA-C - 06/10/2023 3:53 PM EDT SUBJECTIVE: CC: Chief Complaint Patient presents with Edema Facial HPI: Kristen Garcia is a 68 year old female who presents with right sided facial swelling that started today. She woke up with the swelling anterior to the ear and it has gotten larger throughout the day. Eating hurts - biting down. She denies fevers, chills and sweats. She has had some nausea. ? ROS ROS as noted in HPI PAST MEDICAL Hx: Past Medical History: Diagnosis Date Anxiety state, unspecified Brain aneurysm 2017 CHF (congestive heart failure) (HCC) Depressive disorder, not elsewhere classified Generalized osteoarthrosis, unspecified site Hemorrhoids 06/02/202005/24 Internal & external noted colonoscopy Migraine, unspecified, without mention of intractable migraine without mention of status migrainosus Motion sickness Panic disorder without agoraphobia PONV (postoperative nausea and vomiting) Sleep apnea Unspecified essential hypertension PAST SURGICAL Hx: Past Surgical History: Procedure Laterality Date BREAST LESION,OTHER,EXCISION 1993 Breast Biopsy needle benign CAROTID (INTERNAL) ARTERY CATHETHER PLACEMENT Bilateral 07/15/2018 CATHETER PLACEMENT INTERNAL CAROTID ARTERY performed by Aime Casas MD at [place] [facility] CAROTID (INTERNAL) ARTERY CATHETHER PLACEMENT Bilateral 01/23/2019 CATHETER PLACEMENT INTERNAL CAROTID ARTERY performed by Aime Casas MD at [place] [facility] CATHETER OCCLUSION/EMBOLIZATION,CREW MANAGER N/A 08/16/2018 TRANSCATHETER PERMANENT ARTERIAL OCCLUSION CENTRAL NERVOUS SYSTEM performed by Aime Casas MD at [facility] DELIVERY 1982 Delivery Only COLONOSCOPY, DIAGNOSTIC (RECTUM) 09/05/2016 adenomatous polyps, diverticulosis, repeat 5 yrs/[facility] COLONOSCOPY, DIAGNOSTIC (RECTUM) 06/02/2020 fair prep, normal / [facility] COLONOSCOPY, DIAGNOSTIC (RECTUM) N/A 08/11/2022 [facility], colonoscopy prep-fair, hemorrnoids on perianal exam , otherwise normal / no specimens collected / EGD, FLEXIBLE, DIAGNOSTIC 06/02/2020 erosive gastropathy / [facility] EGD, FLEXIBLE, DIAGNOSTIC N/A 08/11/2022 [facility], EGD, normal scope / no specimens collected / EXPLORATION OF ABDOMEN 1974 Exploratory Of Abdomen HEMORRHOIDECTOMY, INTERNAL W/ BANDING Hemorrhoid(S) Ligation ismael INFORMATION 1976/. labor and delivery x 2 INFORMATION 08/16/2018 x2 STENTS Terumo MicroVention LVIS Jr Intraluminal Support Device model #896308-[id number] INFORMATION 08/16/2018 x2 STENTS Terumo MicroVention LVIS Jr Intraluminal Support Device model# 876067-[id number] INFORMATION 08/16/2018 COIL Terumo MicroVention Hydrosoft 3D model# 5263-3461 INFORMATION 08/16/2018 COIL Terumo MicroVention Hydrosoft 3D model# 0459-3321 INJECTION CERVICAL/THORACIC 08/02/2016 INJECTION SPINE LUMBAR CERVICAL OR THORACIC performed by Elijah Nash DO at OR [facility] INTRACRANIAL ARTERIES CATH PLACEMENT N/A 08/16/2018 CATHETER PLACEMENT EACH INTRACRANIAL BRANCH OF THE INTERNAL CAROTID OR VERTEBRAL ARTERIES performedby Aime Casas MD at OR [facility] INTRACRANIAL INTRAVASCULAR STENT,INCL ANGIO N/A 08/16/2018 TRANSCATHETER PLACEMENT OF INTRAVASCULAR STENTS, INTRACRANIAL performed by Aime Casas MD at OR [facility] LIGATION/BIOPSY OF TEMPORAL ARTERY Left 06/05/2018 [facility] RECONSTRUCT/REPLACE SHOULDER JOINT Left 09/28/2020 ARTHROPLASTY TOTAL SHOULDER performed by Teresa Rehman DO at OR [facility] REMOVAL OF APPENDIX 1973 Appendectomy REMOVAL OF OVARY/OVIDUCT(S) 1983 Ovary/Tube(S) Removal REMOVAL OF TONSILS, UNDER AGE 13 REMOVE TENDON SHEATH LESION, HAND Right 12/01/2014 EXCISION LESION TENDON SHEATH OR CAPSULE HAND OR FINGER performed by Javi Bishop MD at OR [facility] REVISE UPPER EYELID/EXCESS 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" SACROILIAC JOINT INJECT W/GUIDANCE 01/08/2017 INJECTION SACROILIAC JOINT performed by Elijah Nash DO at OR [facility] SACROILIAC JOINT INJECT W/GUIDANCE 02/28/2018 INJECTION SACROILIAC JOINT performed by Elijah Nash DO at OR [facility] TOTAL HYSTERECTOMY 1984 ANA (Total Abdominal Hysterectomy) Bleeding VERTEBRAL ARTERY CATHETER PLACEMENT Bilateral 07/15/2018 CATHETER PLACEMENT VERTEBRAL ARTERY, performed by Aime Casas MD at OR [facility] VERTEBRAL ARTERY CATHETER PLACEMENT Bilateral 01/23/2019 CATHETER PLACEMENT VERTEBRAL ARTERY, performed by Aime Casas MD at OR [facility] SOCIAL Hx: Social History Socioeconomic History Marital status: Spouse [...] on file Housing Stability: Not on file FAMILY Hx: Family History Problem Relation Age of Onset Hypertension Mother Cancer Mother 81 lung cancer, smoker Diabetes Mother 59 IDDM Lung Disorder Mother Heart Disorder Father Lung Disorder Father emphysema, smoker Gastro-intestinal disorder Father diverticulitis Other (diverticulitis) Father Eye Problems Grandmother (Paternal) unsure diagnosis Heart Disorder Grandfather (Paternal) Eye Problems Sister w/ Bleed Diabetes Aunt (Unspecified) maternal Cancer Aunt (Unspecified) dec, ? leukemia Glaucoma None Denies family hx CURRENT PROBLEM LIST: Patient Active Problem List Diagnosis Code Hirsutism [...] anxiety) F41.0 Hyperlipidemia E78.5 BMI 40.0-44.9, adult ([facility]) Z68.41 Hypertensive heart disease with diastolic heart failure and stage 3b chronic kidney disease ([facility]) I13.0, I50.30, N18.32 Iron deficiency anemia due to chronic blood loss D50.0 MEDS & ALLERGIES: Current Outpatient Medications Medication Sig Dispense Refill Aspirin 81 MG Oral Tablet Delayed Release (RA Aspirin EC) Take 1 Tab by mouth daily. 90 Tab 1 CPAP 16 % every night at bedtime. Ipratropium-Albuterol 0.5-2.5 (3) MG/3ML Inhalation Solution (Duoneb) Inhale via nebulizer 3 mLin the morning AND 3 mL at noon AND 3 mL in the evening AND 3 mL before bedtime. 100 mL 3 Vitamin D (Ergocalciferol) 1.25 MG (82301 UT) Oral Capsule TAKE ONE CAPSULE BY MOUTH MONTHLY 12Capsule 0 Fluticasone Propionate 50 MCG/ACT Nasal Suspension [...] Solution Inhale 2 Puffs by mouth every 4hours as needed for Congestion, Cough or Wheezing. 18 g 0 Triamcinolone Acetonide 0.5 % External Cream (Aristocort) apply topically to affected area of lower extremities where redness and itching and tight skin twice a day 450 g 0 traZODone HCl 150 MG Oral Tablet (Desyrel) TAKE 1 TABLET BY MOUTH AT BEDTIME 90 Tablet 3 Torsemide 10 MG Oral Tablet (Demadex) 20 mg in the morning 10 mg in the evening 90 Tablet 3 Metoprolol Succinate ER 25 MG Oral Tablet Extended Release 24 Hour (Toprol XL) Take 1 Tablet bymouth in the morning. 34 Tablet 6 Polyethylene Glycol 3350 17 GM/SCOOP Oral Powder (MiraLax) Take 17 g by mouth daily as needed for Constipation. Dissolve one heaping tablespoon in 8 ounces of water or juice. 238 g 0 Ondansetron HCl 4 MG Oral Tablet (Zofran) TAKE 1 TABLET BY MOUTH EVERY 8 HOURS IF NEEDED FOR NAUSEA 30 Tablet 0 Vitamin B-12 1000 MCG Oral Tablet (Cyanocobalamin) Take 1 Tablet by mouth in the morning. 30 Tablet 11 rOPINIRole HCl 2 MG Oral Tablet (Requip) TAKE ONE TABLET BY MOUTH IN THE MORNING, ONE AT NOON AND ONE BEFORE BEDTIME. TAKE WITH FOOD. 90 Tablet 2 Pregabalin 25 MG Oral Capsule (Lyrica) Take 1 capsule at night x 1 week then increase to 1 capsule twice daily. 60 Capsule 1 Losartan Potassium 25 MG Oral Tablet (Cozaar) Take 0.5 Tablets by mouth in the morning. 34 Tablet 11 Magnesium 400 MG Oral Tablet Take 400 mg by mouth in the morning. 90 Tablet 3 Clindamycin HCl 300 MG Oral Capsule Take 1 Capsule by mouth in the morning and 1 Capsule at noon and 1 Capsule in the evening and 1 Capsule before bedtime. Do all this for 10 days. 40 Capsule 0 Compressor Nebulizer Inhale via nebulizer . Use as directed. 1 Each 1 Meclizine HCl 12.5 MG Oral Tablet (Antivert) TAKE ONE TABLET BY MOUTH THREE TIMES DAILY NEEDED FOR DIZZINESS 30 Tablet 2 Magnesium 200 MG Oral Tablet Chewable Take 400 mg by mouth in the morning. 180 Tablet 3 No current facility-administered medications for [...] [Acetaminophen] Restless legs are worse when taking. OBJECTIVE: VS: BP 122/70 (BP Site: Left Arm, BP Position: Sitting, BP Cuff Size: Regular) | Pulse 79 | Temp 36.2 C (97.2 F) (Tympanic) | Resp 18 | Ht 1.664 m (5' 5.5") | Wt 116 kg (255 lb 12.8 oz) | SpO2 96% | BMI 41.92 kg/m | BSA 2.32 m Wt Readings from Last 1 Encounters: 06/10/23 116 kg (255 lb 12.8 oz) General: alert, healthy and no distress Head: Normocephalic, large area of edema and tenderness anterior to the right ear in the shape and location of the parotid gland Eye Exam: PERRLA, extraocular movements intact, conjunctiva are pink and non- injected, sclera clear Ears: External ears normal, Canals clear, TM's Normal Nose: no mucosal erythema, no mucosal edema, no purulent discharge Oropharynx: no exudate, no erythema, lips, buccal mucosa, and tongue normal, mucous membranes are moist and numerous fillings but no obvious decay Neck: supple, no adenopathy, no bruits, thyroid normal size, non-tender, without nodularity Lymph: no palpable lymphadenopathy ASSESSMENT/PLAN(s): Sialadenitis (Primary) - Clindamycin HCl 300 MG Oral Capsule; Take 1 Capsule by mouth in the morning and 1 Capsule at noonand 1 Capsule in the evening and 1 Capsule before bedtime. Do all this for 10 days. Could be dental in nature but rapid onset, location and history suggest salivary gland. Patient to follow up with PCP if symptoms persist or worsen. Plan of care & discharge instructions were discussed, & the patient verbalized understanding. Joe Jerome PA-C [address] [address] documented in this encounter Nursing Notes * Luz Gould LPN - 06/10/2023 3:47 PM EDT Kristen Garcia,is a 68 year old female, who presents to the walk in clinic today c/o right side facial swelling/pain upon waking this morning. States has tooth issue on that side but has not had issues with it. Did not use any OTC meds. documented in this encounter Plan of Treatment Upcoming Encounters Date Type Specialty Care Team Description 06/18/2023 Laboratory Laboratory [facility] [address] [facility] [place] [address] 06/28/2023 Office Visit Orthopedics Christo Burk MD [address] [place] [address] 06/28/2023 Imaging Radiology 07/02/2023 [facility] Visit [facility] Ladi Joseph RN [address] [place] [address] 08/22/2023 Office Visit Neurological Surgery Aime Casas MD [address] [place] [address] 08/27/2023 Office Visit Allergy & Immunology Brennan Wasserman MD [address] [place] [address] 10/01/2023 Office Visit Cardiology Amaya Singleton PA-C [address] [place] [address] 11/23/2023 Office Visit Family Medicine [facility] [address] [facility] [address] 11/27/2023 Office Visit Neurology Vernell Kimball PA-C [address] [place] [address] 12/10/2023 Nurse Only Ancillary [facility] Nurse [facility] [address] [facility] [place] [address] 04/08/2024 Office Visit Hematology Oncology Mario Kong MD [address] [facility] [place] [address] Health Maintenance Due Date Last Done Comments [...] Over 12/07/2023 12/07/2022 CKD PHOS USE SMARTSET 96433 03/16/202403/05, 03/29/2022, 05/13/2021, Additional history exists CKD HGB USE SMARTSET 33081 04/25/202404/25, 04/25/2023, 04/06/2023, Additional history exists Diabetes [...] this encounter Medical Devices Implanted Type Area Lumpia Wrapper Maker Device Identifier Shelf Expiration Date Model / Serial / Lot Terumo Microvention Hydrosoft 3d Implanted:Qty: 1 on 08/16/2018 by Aime Casas MD at [place] [facility] N/A: Head [employer] : INTERVENTIONA 07/05/2023 [id number] / [id number] / [id number] Hd Offset Hum 46x16 - [id number] Implanted:Qty: 1 on 09/28/2020 by Teresa Rehman DO at OR [facility] Left: Shoulder DJO SURGICAL 06/17/2026 520-46-31 [phone] [id number] documented as of this encounter Visit Diagnoses Diagnosis Sialadenitis- Primary Sialoadenitis documented in this encounter Advance Directives Latest [...] and were consensually agreed upon. Care Teams Ship'S Engineer Relationship Specialty Start Date End Date March, Sotero Sutton MD [address] [place], [place] [id number] PCP - General Family Medicine 12/07/22 documented as of this encounter
--- OUTSIDE RECORDS SUMMARY | 2023-11-15 04:37 | External Medical Summary | Summary of Care ---
Author Name Unknown Organization [facility] Address [address] [facility] [place] [address] Phone [phone] Care Team Providers Care Coatings Inspector Name Role Phone Maine Dumont MD Primary Care Provider [phone] Reason for Visit * Reason Onset Date Comments Medication Refill 06/01/2023 Encounter Details Date Type Department Care Team Description 06/01/2023 Refill [facility] at [facility], [facility] [address] [place] [address] Ladi Joseph, RN [address] [place] [address] HTN, goal below 140/90*; Chronic kidney disease, [...] 03/15/2022 Active Vitamin D (Ergocalciferol) 1.25 MG (14345 UT) Oral Capsule TAKE ONE CAPSULE BY [...] Succinate (ER) o ERICA Inhibitor/ARB Therapy: No EIRCA/ARB/ARNI secondary to: kidney failure o Diuretic therapy: [...] mRNA, LNP-s, No Pre serve, 2-Dose Series (Stribe) 02/17/2021,01/27/2021 Pneumococcal Polysaccharide PPV23 (Pneumovax) Seasonal Influenza, [...] encounter Miscellaneous Notes * Addendum Note - Nathan Browne RP - 06/04/2023 9:39 AM EDTAddended by: NATHAN BROWNE on: 06/04/2023 09:39 AM Modules accepted: Orders * Telephone Encounter - Nathan Browne RP - 06/04/2023 9:[address] [facility] calling regarding Magnesium 200 MG Oral Tablet Chewable. [facility] reports they are NOT able to obtain Magnesium CHEWABLE TABS in 200 or 400 MG. Requesting if rx can be switched to solid TAB form. Rx pended, please approve if appropriate Pending Prescriptions: Disp Refills Magnesium 400 MG Oral Tablet 90 Tab*3 Sig: Take 400 mg by mouth in the morning. Thanks, Nathan Browne PharmD Clinical Pharmacist [facility] ([facility]) (formerly [employer] Document Management software) [phone] 06/04/2023 9:38 AM * Telephone Encounter - RAHUL Light - 06/04/2023 9:[address] [facility] calling regarding Magnesium 200 MG Oral Tablet Chewable. [facility] reports they are NOT able to obtain Magnesium CHEWABLE TABS in 200 or 400 MG. Requesting if rx can be switched to solid TAB form. Please review and advise- new rx can be sent to [id number] [id number] Thank you, Rae Loving Guest Relations Agent I [facility] (formerly [...] for your review and signature. Pharmacy is [facility] in [place]. Thank you!! documented in this encounter Plan of Treatment Upcoming Encounters Date Type Specialty Care Team Description 06/04/2023 Imaging Radiology 06/05/2023 Imaging Radiology 06/06/2023 PulmDiagnostic Pulmonary Function [place], [facility] [address] [place] [address] 06/18/2023 Laboratory Laboratory [facility] [address] [place] [address] 06/28/2023 Office Visit Orthopedics Christo Burk MD [address] [place] [address] 07/02/2023 [facility] Visit [facility] Ladi Joseph RN [address] [place] [address] 08/22/2023 Office Visit Neurological Surgery Aime Casas MD [address] [place] [address] 08/27/2023 Office Visit Allergy & Immunology Brennan Wasserman MD [address] [place] [address] 10/01/2023 Office Visit Cardiology Amaya Singleton PA-C [address] [place] [address] 11/23/2023 Office Visit Family Medicine Maine Dumont MD [address] [place] [address] 11/27/2023 Office Visit Neurology Vernell Kimball PA-C [address] [place] [address] 12/10/2023 Nurse Only Ancillary [place], Nurse [facility] [address] [place] [address] 04/08/2024 Office Visit Hematology Oncology Mario Kong MD [address] [place] [address] Health Maintenance Due Date Last Done Comments [...] Over 12/07/2023 12/07/2022 CKD PHOS USE SMARTSET 94033 03/16/202403/05, 03/29/2022, 05/13/2021, Additional history exists CKD HGB USE SMARTSET 31145 04/25/202404/25, 04/25/2023, 04/06/2023, Additional history exists Diabetes [...] this encounter Medical Devices Implanted Type Area Early Years Teacher Device Identifier Shelf Expiration Date Model / Serial / Lot Stirplate.io Microvention Hydrosoft 3d Implanted:Qty: 1 on 08/16/2018 by Aime Casas MD at OR [facility] N/A: Head [employer] : INTERVENTIONA 07/05/2023 [id number] / [id number] / [id number] Hd Offset Hum 46x16 - [id number] Implanted:Qty: 1 on 09/28/2020 by Teersa Rehman DO at OR [facility] Left: Shoulder DJO SURGICAL 06/17/2026 520-46-31 [phone] [id number] documented as of this encounter Visit Diagnoses [...] and were consensually agreed upon. Care Teams Coatings Inspector Relationship Specialty Start Date End Date March, Maine Sutton MD [address] [facility] [place] [id number] PCP - General Family Medicine 12/07/22 documented as of this encounter
--- OUTSIDE RECORDS SUMMARY | 2023-11-15 04:37 | External Medical Summary | Summary of Care ---
Author Name Unknown Organization [facility] Address [address] [facility] [place] [address] Phone [phone] Care Team Providers Care Cargo Services Coordinator Name Role Phone Sotero Pizano MD Primary Care Provider [phone] Reason for Visit * Reason Onset Date Comments Test Results 06/07/2023 Encounter Details Date Type Department Care Team Description 06/07/2023 Telephone Cardiology, [facility] [address] [place] [id number] Amaya Singleton PA-C [address] [place] [address] Test Results Allergies Active Allergy Reactions Severity [...] as of this encounter (statuses as of 06/07/2023) Medications Medication Sig Dispensed Refills Start Date [...] 03/15/2022 Active Vitamin D (Ergocalciferol) 1.25 MG (02173 UT) Oral Capsule TAKE ONE CAPSULE BY [...] the morning. 90 Tablet 3 06/04/2023 Active documented as of this encounter (statuses as of 06/07/2023) Active Problems Problem Noted Date Iron deficiency [...] as of this encounter (statuses as of 06/07/2023) Resolved Problems Problem Noted Date Resolved Date [...] as of this encounter (statuses as of 06/07/2023) Immunizations Name Administration Dates Next Due COVID-19 [...] encounter Miscellaneous Notes * Telephone Encounter - Antwan Oropeza LPN - 06/07/2023 12:59 PM EDT Sent patient a [employer] message to make aware. ----- Message from Amaya Singleton PA-C sent at 06/06/2023 2:57 PM EDT ----- ZIO monitor was ordered by PCP and forwarded to my inbox. Chart reviewed. Last evaluated by Dr. Shipman in March 2023. Last evaluation with me was > 1 year ago. She has a history of PAF, on metoprolol. Unable to take anticoagulation due to GI bleeding and anemia. I reviewed her monitor report in detail. Most of the SVT episodes appear to be movement artifact and not true SVT It does appear she may have some afib episodes but her rates are controlled and her average HR's are in the 70's. Would continue current dose of metoprolol. documented in this encounter Plan of Treatment Upcoming Encounters Date Type Specialty Care Team Description 06/18/2023 Laboratory Laboratory [facility] [address] [place] [facility] [place] [address] 06/28/2023 Office Visit Orthopedics Christo Burk MD [address] [place] [address] 06/28/2023 Imaging Radiology 07/02/2023 Home Visit [facility] Ladi Joseph RN [address] [place] [phone] 08/22/2023 Office Visit Neurological Surgery Aime Casas MD [address] [place] [address] 08/27/2023 Office Visit Allergy & Immunology Brennan Wasserman MD [address] [place] [address] 10/01/2023 Office Visit Cardiology Amaya Singleton PAJeimyC [address] [place] [address] 11/23/2023 Office Visit Family Medicine Sotero Pizano MD [address] [place] [address] 11/27/2023 Office Visit Neurology Vernell Kimball PA-C [address] [facility] [facility] [place] [address] 12/10/2023 Nurse Only [facility], Nurse Annual [facility] [address] [place] [address] 04/08/2024 Office Visit Hematology Oncology Mario Kong MD [address] [place] [address] Health Maintenance Due Date Last Done Comments [...] Over 12/07/2023 12/07/2022 CKD PHOS USE SMARTSET 25900 03/16/202403/05, 03/29/2022, 05/13/2021, Additional history exists CKD HGB USE SMARTSET 89760 04/25/202404/25, 04/25/2023, 04/06/2023, Additional history exists Diabetes [...] this encounter Medical Devices Implanted Type Area Criminal Justice Program Director Device Identifier Shelf Expiration Date Model / Serial / Lot Terumo Microvention Hydrosoft 3d Implanted:Qty: 1 on 08/16/2018 by Aime Casas MD at [facility] N/A: Head [employer] : INTERVENTIONA 07/05/2023 [id number] / [id number] / [id number] Hd Offset Hum 46x16 - [id number] Implanted:Qty: 1 on 09/28/2020 by Teresa Rehman DO at OR [facility] Left: Shoulder DJO SURGICAL 06/17/2026 520-46-31 [phone] [id number] documented as of this encounter Advance Directives [...] and were consensually agreed upon. Care Teams Cargo Services Coordinator Relationship Specialty Start Date End Date March, Sotero Sutton MD [address] [place] [address] PCP - General Family Medicine 12/07/22 documented as of this encounter
--- OUTSIDE RECORDS SUMMARY | 2023-11-15 04:37 | External Medical Summary | Summary of Care ---
Author Name Unknown Organization [facility] Address [address] [place] [address] Phone [phone] Care Team Providers Care Web Site Admin Name Role Phone Sotero Pizano MD Primary Care Provider [phone] Reason for Visit * Reason Onset Date Comments [facility]: Maintenance 06/18/2023 Encounter Details Date Type Department Care Team Description 06/18/2023 Telephone [facility], [facility] [address] [place] [address] [facility], Nurse [facility] [address] [place] [address] [facility]: Maintenance Allergies Active Allergy [...] 03/15/2022 Active Vitamin D (Ergocalciferol) 1.25 MG (94847 UT) Oral Capsule TAKE ONE CAPSULE BY [...] mRNA, LNP-s, No Pre serve, 2-Dose Series (Trigence) 02/17/2021,01/27/2021 Pneumococcal Polysaccharide PPV23 (Pneumovax) Seasonal Influenza, [...] Medical Command Phone Encounter [facility] Phone Encounter Thank you for your assistance in the care of this patient today. Reviewed phone message regarding the patient's weight and [facility] findings. Please see below for the response [...] note were not included. Received call from OPCM Josefina Estelita that patient is triggering for her and needs [facility] scale transferrred to [facility] TT sent to [facility] role to transfer scale to [facility] Call to patient to check status [...] Specialty Care Team Description 06/19/2023 Laboratory Laboratory [place] [address] [place] [address] 06/28/2023 Office Visit Orthopedics Christo Burk MD [address] [place] [phone] 06/28/2023 Imaging Radiology 07/02/2023 Home Visit [facility] Ladi Joseph RN [address] [place] [address] 08/22/2023 Office Visit Neurological Surgery Aime Casas MD [address] [place] [address] 08/27/2023 Office Visit Allergy & Immunology Brennan Wasserman MD [address] [place] [address] 10/01/2023 Office Visit Cardiology Amaya Singleton PA-C [address] [place] [address] 11/23/2023 Office Visit Family Medicine Sotero Pizano MD [address] [place] [address] 11/27/2023 Office Visit Neurology Vernell Kimball PA-C [address] [place] [address] 12/10/2023 Nurse Only [facility]illary [place], Nurse [facility] [address] [place] [facility] [place] [address] 04/08/2024 Office Visit Hematology Oncology Mario Kong MD [address] [facility] [place] [address] Health Maintenance Due Date Last Done Comments [...] Over 12/07/2023 12/07/2022 CKD PHOS USE SMARTSET 16979 03/16/202403/05, 03/29/2022, 05/13/2021, Additional history exists CKD HGB USE SMARTSET 40102 04/25/202404/25, 04/25/2023, 04/06/2023, Additional history exists Diabetes [...] encounter Medical Devices Implanted Type Area Web Site Admin Device Identifier Shelf Expiration Date Model / Serial / Lot Terumo Microvention Hydrosoft 3d Implanted:Qty: 1 on 08/16/2018 by Aime Casas MD [place] [facility] [place]: Head [employer] : INTERVENTIONA 07/05/2023 [id number] / [id number] / [id number] Hd Offset Hum 46x16 - [id number] Implanted:Qty: 1 on 09/28/2020 by Teresa Rehman DO at OR [facility] Left: Shoulder [employer] 06/17/2026 520-46-31 6 / / [id number] documented as of this encounter Advance Directives [...] and were consensually agreed upon. Care Teams Web Site Admin Relationship Specialty Start Date End Date March, Sotero Sutton MD [address] [place] [address] PCP - General Family Medicine 12/07/22 documented as of this encounter
--- OUTSIDE RECORDS SUMMARY | 2023-11-15 04:38 | External Medical Summary ---
Author Name Unknown Address Unknown Organization K01:[facility] [place] [address] [facility] [address] Laboratory Report Ordering Provider Test Date Status JEANNIE OSPINA 05/25/2023 14:46:03 Final Observation Date Value Abnormality Reference (Units) Status Protein 05/25/2023 14:46:03 6.9 6.0-8.3 (g/dL) Final Albumin/Protein.total [Pure mass fraction] in Serum or Plasma by Electrophoresis 05/25/2023 14:46:03 3.28 Below low normal 3.30-4.40 (g/dL) Final Alpha 1 globulin/Protein.tota l [Pure mass fraction] in Serum or Plasma by Electrophoresis 05/25/2023 14:46:03 0.26 0.10-0.30 (g/dL) Final Alpha 2 globulin/Protein.tota l [Pure mass fraction] in Serum or Plasma by Electrophoresis 05/25/2023 14:46:03 1.14 Above high normal 0.60-1.00 (g/dL) Final Beta globulin/Protein.tota l [Pure mass fraction] in Serum or Plasma by Electrophoresis 05/25/2023 14:46:03 1.04 0.80-1.30 (g/dL) Final Gamma globulin/Protein.tota l [Pure mass fraction] in Serum or Plasma by Electrophoresis 05/25/2023 14:46:03 1.17 0.70-1.70 (g/dL) Final Protein Fractions [Interpretation] in Serum or Plasma by Electrophoresis Narrative 05/25/2023 14:46:03 No paraprotein detected. Final Performing Location [facility] [place] [address] [facility] [address] [facility] [address]
--- OUTSIDE RECORDS SUMMARY | 2023-11-15 04:38 | External Medical Summary | Summary of Care ---
Author Name Unknown Organization [facility] Address [address] [place] [address] Phone [phone] Care Team Providers Care Door Installer Name Role Phone Sotero Pizano MD Primary Care Provider [phone] Reason for Visit * Reason Comments eRx-Medication Refill Encounter Details Date Type Department Care Team Description 05/30/2023 Refill [facility] [address] [place] [address] Sotero Pizano MD [address] [place] [address] HTN, goal below 140/90 Allergies [...] as of this encounter (statuses as of 05/31/2023) Medications Medication Sig Dispensed Refills Start Date [...] 03/15/2022 Active Vitamin D (Ergocalciferol) 1.25 MG (68490 UT) Oral Capsule TAKE ONE CAPSULE BY [...] as of this encounter (statuses as of 05/31/2023) Active Problems Problem Noted Date Iron deficiency [...] as of this encounter (statuses as of 05/31/2023) Resolved Problems Problem Noted Date Resolved Date [...] as of this encounter (statuses as of 05/31/2023) Immunizations Name Administration Dates Next Due COVID-19 [...] encounter Miscellaneous Notes * Telephone Encounter - Liudmila Yeung RPh - 05/31/2023 6:32 AM EDTRefused Prescriptions: Disp Refills Magnesium Oxide -Mg Supplement 400 (240 Mg*90 Tab*0 Sig: TAKE 1TABLET BY MOUTH EVERY MORNINGRefused By: LIUDMILA YEUNG for Refusal: Dose needs clarificationReason for Refusal Comment: 200mg tabs sent 03/16 documented in this encounter Plan of Treatment Upcoming Encounters Date Type Specialty Care Team Description 06/01/2023 Home Visit [facility] Ladi Joseph RN [address] [place] [address] 06/04/2023 Imaging Radiology 06/06/2023 PulmDiagnostic Pulmonary Function [place], Pft [address] [place] [address] 06/18/2023 Laboratory Laboratory [place] [address] [place] [address] 06/28/2023 Office Visit Orthopedics Christo Burk MD [address] [place] [phone] 07/05/2023 Telemedicine [facility] Jarad Orlando CRNP [address] [place] [address] Jenny Barton, Community Health Herbologist [address] [place] [address] 08/22/2023 Office Visit Neurological Surgery Aime Casas MD [address] [place] [address] 08/27/2023 Office Visit Allergy & Immunology Brennan Wasserman MD [address] [facility] [place] [address] 10/01/2023 Office Visit Cardiology Amaya Singleton PA-C [address] [place] [address] 11/23/2023 Office Visit Family Medicine Sotero Pizano MD [address] [place] [address] 11/27/2023 Office Visit Neurology Vernell Kimball PA-C [address] [place], [place] [phone] 12/10/2023 Nurse Only [facility] Nurse [facility] [address] [place] [address] 04/08/2024 Office Visit Hematology Oncology Mario Kong MD [address] [place] [address] Health Maintenance Due Date Last Done Comments [...] Over 12/07/2023 12/07/2022 CKD PHOS USE SMARTSET 26118 03/16/202403/05, 03/29/2022, 05/13/2021, Additional history exists CKD HGB USE SMARTSET 68641 04/25/202404/25, 04/25/2023, 04/06/2023, Additional history exists Diabetes [...] this encounter Medical Devices Implanted Type Area Internet Manager Device Identifier Shelf Expiration Date Model / Serial / Lot Terumo Microvention Hydrosoft 3d Implanted:Qty: 1 on 08/16/2018 by Aime Casas MD [place] [facility] [place]: Head [employer] : INTERVENTIONA 07/05/2023 [id number] / [id number] / [id number] Hd Offset Hum 46x16 - [id number] Implanted:Qty: 1 on 09/28/2020 by Teresa Rehman DO at OR [facility] Left: Shoulder [employer] 06/17/2026 520-46-31 6 / / [id number] documented as of this encounter Visit Diagnoses [...] were consensually agreed upon. Care Teams Door Installer Relationship Specialty Start Date End Date March, Sotero Sutton MD [address] [place], [place] [phone] PCP - General Family Medicine 12/07/22 documented as of this encounter
--- OUTSIDE RECORDS SUMMARY | 2023-11-15 04:38 | External Medical Summary ---
Author Name Unknown Address Unknown Organization K01:[facility] [place] [facility] [address] [place] [address] Laboratory Report Ordering Provider Test Date Status ANAIJEANNIE 05/25/2023 14:46:03 Final Observation Date Value Abnormality Reference (Units ) Status SSA Ab 05/25/2023 14:46:03 Negative Negative Final Sjogrens syndrome-A extractable nuclear Ab [Units/volume] in Serum by Immunoassay 05/25/2023 14:46:03 <0.4 <7 (U/mL) Final SSB Ab 05/25/2023 14:46:03 Negative Negative Final Sjogrens syndrome-B extractable nuclear Ab [Units/volume] in Serum by Immunoassay 05/25/2023 14:46:03 <0.4 <7 (U/mL) Final Performing Location [facility] [place] [facility] [address] [place] [address]
--- OUTSIDE RECORDS SUMMARY | 2023-11-15 04:38 | External Medical Summary | Summary of Care ---
Author Name Unknown Organization [facility] Address [address] [place] [address] Phone [phone] Care Team Providers Care Regional Controller Name Role Phone Maine Dumont MD Primary Care Provider [phone] Reason for Visit * Reason Comments eRx-Medication Refill Encounter Details Date Type Department Care Team Description 05/24/2023 Refill [facility] [address] [place] [address] Maine Dumont MD [address] [place] [address] Neuropathy Allergies Active Allergy Reactions Severity Noted Date [...] as of this encounter (statuses as of 05/27/2023) Medications Medication Sig Dispensed Refills Start Date [...] 03/15/2022 Active Vitamin D (Ergocalciferol) 1.25 MG (50922 UT) Oral Capsule TAKE ONE CAPSULE BY [...] 03/05/2023 Active Magnesium 200 MG Oral Tablet ChewableIndicatio ns:Chronic kidney disease, stage 3b (HCC) Take 400 mg by mouth in the morning. 180 Tablet 3 03/16/2023 Active Torsemide 10 MG Oral Tablet (Demadex)Indicati [...] Active Ondansetron HCl 4 MG Oral Tablet (Zofran)Indicatio [...] WITH FOOD. 90 Tablet 2 05/27/2023 Active rOPINIRole HCl 2 MG Oral Tablet (Requip) TAKE ONE TABLET BY MOUTH IN THE MORNING, ONE AT NOON AND ONE BEFORE BEDTIME. take with food 90 Tablet 0 04/24/2023 05/25/20 23 Discontinued documented as of this encounter (statuses as of 05/27/2023) Active Problems Problem Noted Date Iron deficiency [...] Beta Dominique Therapy: Metoprolol Succinate (ER) o ERIAC Inhibitor/ARB Therapy: No ERICA/ARB/ARNI secondary to: kidney [...] as of this encounter (statuses as of 05/27/2023) Resolved Problems Problem Noted Date Resolved Date [...] as of this encounter (statuses as of 05/27/2023) Immunizations Name Administration Dates Next Due COVID-19 [...] Telephone Encounter - Maine Dumont MD - 05/27/2023 10:28 PM EDTSigned Prescriptions: Disp Refills rOPINIRole HCl 2 MG Oral Tablet (Requip) 90 Tab*2 Sig: TAKE ONE TABLET BY MOUTH IN THE MORNING, ONE AT NOON AND ONE BEFORE BEDTIME. TAKE WITH FOOD.Authorizing Provider: MAINE DUMONTRefused Prescriptions: Disp Refills Gabapentin 100 MG Oral Capsule (Neurontin) 90 Cap*2 Sig: TAKE 1 CAPSULE BY MOUTH THREE TIMES DAILY NEEDEDFOR PAINRefused By: MAINE DUMONTReason for Refusal: ContraindicatedReason for Refusal Comment: Now on lyrica per neurology. * Telephone Encounter - Interface, E-Rx Ss Inbound - 05/26/2023 6:05 AM EDT Pending Prescriptions: Disp Refills rOPINIRole HCl 2 MG Oral Tablet (Requip) 90 Tab*2 Sig: TAKE ONE TABLET BY MOUTH IN THE MORNING, ONE AT NOON AND ONE BEFORE BEDTIME. TAKE WITH FOOD. Gabapentin 100 MG Oral Capsule (Neurontin) 90 Cap*2 Sig: TAKE 1 CAPSULE BY MOUTH THREE TIMES DAILY NEEDED FOR PAIN * Telephone Encounter - Vincent Orlando [facility] - 05/25/2023 11:16 AM EDTPending Prescriptions: Disp Refills rOPINIRole HCl 2 MG Oral Tablet (Requip) 90 Tab*2 Sig: TAKE ONE TABLET BY MOUTH IN THE MORNING, ONE AT NOON AND ONE BEFORE BEDTIME. TAKE WITH FOOD. Gabapentin 100 MG Oral Capsule (Neurontin) 90 Cap*2 Sig: TAKE 1 CAPSULE BY MOUTH THREE TIMES DAILY NEEDED FOR PAIN * Telephone Encounter - Vincent Orlando [facility] - 05/25/2023 11:15 AM EDT Pending Prescriptions: Disp Refills rOPINIRole HCl 2 MG Oral Tablet (Requip) 90 Tab*2 Sig: TAKE ONE TABLET BY MOUTH IN THE MORNING, ONE AT NOON AND ONE BEFORE BEDTIME. TAKE WITH FOOD. Gabapentin 100 MG Oral Capsule (Neurontin) 90 Cap*2 Sig: TAKE 1 CAPSULE BY MOUTH THREE TIMES DAILY NEEDED FOR PAIN 05/23/2023 (in office), 12/27/2020 (telemedicine) 11/23/2023 If no future appointments scheduled, and last appointment is greater than a year ago, please schedule patient for a follow-up appointment Last date the medication was ordered: 04/24/23 [id number] [address] [facility] [place] Is this request for a controlled substance?No [...] Labs: Lab Results Component Value Date/Time CREAT 1.2 (H) 04/06/2023 09:32 AM CREAT 1.1 (H) 10/05/2020 02:35 PM POTASSIUM 4.1 04/06/2023 09:32 AM POTASSIUM 3.9 10/05/2020 02:35 PM TSH 4.49 [...] Encounters Date Type Specialty Care Team Description 05/28/2023 Imaging Radiology 06/01/2023 [facility] Ladi Joseph RN [address] [place] [address] 06/18/2023 Laboratory Laboratory [address] [address] 06/27/2023 PulmDiagnostic Pulmonary Function [place], Pft [address] [place] [address] 06/28/2023 Office Visit Orthopedics Christo Bruk MD [address] [place] [phone] 07/05/2023 Telemedicine [facility] Jarad Orlando CRNP [address] [place] [address] Jenny Barton, Community Health Psychology Teacher [address] [place] [address] 08/27/2023 Office Visit Allergy & Immunology Brennan Wasserman MD [address] [place] [address] 10/01/2023 Office Visit Cardiology Amaya Singleton PA-C [address] [place] [address] 11/23/2023 Office Visit Family Medicine Maine Dumont MD [address] [place] [address] 11/27/2023 Office Visit Neurology Vernell Kimball PA-C [address] [place] [address] 12/10/2023 Nurse Only [facility], Nurse [facility] [address] [place] [address] 04/08/2024 Office Visit Hematology Oncology Mario Kong MD [address] [place] [address] Health Maintenance Due Date Last Done Comments [...] Over 12/07/2023 12/07/2022 CKD PHOS USE SMARTSET 78860 03/16/202403/05, 03/29/2022, 05/13/2021, Additional history exists CKD HGB USE SMARTSET 46534 04/25/202404/25, 04/25/2023, 04/06/2023, Additional history exists Diabetes [...] this encounter Medical Devices Implanted Type Area Sewer Contractor Device Identifier Shelf Expiration Date Model / Serial / Lot Terumo Microvention Hydrosoft 3d Implanted:Qty: 1 on 08/16/2018 by Aime Casas MD at [place] [facility] [place]/A: Head [employer] : INTER[employer]IONA 07/05/2023 [id number] / [id number] / [id number] Hd Offset Hum 46x16 - [id number] Implanted:Qty: 1 on 09/28/2020 by Teresa Rehman DO at OR [facility] Left: Shoulder [employer]O SURGICAL 06/17/2026 520-46-31 [id number] documented as of this encounter Visit Diagnoses Diagnosis Neuropathy Mononeuritis of unspecified site documented in this encounter Advance Directives Latest [...] and were consensually agreed upon. Care Teams Regional Controller Relationship Specialty Start Date End Date March, Maine Sutton MD [address] [place], [place] [phone] PCP - General Family Medicine 12/07/22 documented as of this encounter
--- OUTSIDE RECORDS SUMMARY | 2023-11-15 04:38 | External Medical Summary | Summary of Care ---
Author Name Unknown Organization [facility] Address [address] [facility] [place] [address] Phone [phone] Care Team Providers Care Tire Maintenance Technician Name Role Phone Sotero Pizano MD Primary Care Provider Reason for Referral * Evaluate & Treat - Unlimited Visits (Within 10 days (routine)) - Authorized Specialty Diagnoses / Procedures Referred By Bharat dobbs Referred To Contact Orthopaedic Surgery / Orthopedics Diagnoses Ulnar neuropathy at elbow of left upper extremity Vernell Kimball PA-C [place] [address] Referral ID Status Reason Start Date Expiration Date Visits Requested Visits Authorized [id number] Authorized Specialty Services Required 05/25/2023 999 999 Question Answer Referral Priority Within 10 days (routine) What body part is the patient being seen for? Arm/Elbow What condition is the patient being seen for? Weakness/Numbness/Tingling Comments EMG - left ulnar neuropathy Reason for Visit * Reason Comments Return Neuro Encounter Details Date Type Department Care Team Description 05/25/2023 Office Visit Neurology [place] [address] [facility] [address] Vernell Kimball PA-C [address] [place] [address] Ulnar neuropathy at elbow of left upper extremity*; Polyneuropathy Allergies Active Allergy Reactions Severity Noted Date [...] as of this encounter (statuses as of 05/25/2023) Medications Medication Sig Dispensed Refills Start Date [...] 03/15/2022 Active Vitamin D (Ergocalciferol) 1.25 MG (28161 UT) Oral Capsule TAKE ONE CAPSULE BY [...] 03/05/2023 Active Magnesium 200 MG Oral Tablet ChewableIndication s:Chronic kidney disease, stage 3b (HCC) Take 400 mg by mouth in the morning. 180 Tablet 3 03/16/2023 Active Torsemide 10 MG Oral Tablet (Demadex)Indicatio ns:Chronic heart failure with preserved ejection fraction (HCC) 20 mg in the morning 10 mg in the evening 90 Tablet 3 03/28/2023 Active Metoprolol Succinate ER 25 MG Oral Tablet Extended Release 24 Hour (Toprol XL) Take 1 Tablet by mouth in the morning. 34 Tablet 6 03/29/2023 Active rOPINIRole HCl 2 MG Oral Tablet (Requip) TAKE ONE TABLET BY MOUTH IN THE MORNING, ONE AT NOON AND ONE BEFORE BEDTIME. take with food 90 Tablet 0 04/24/2023 Active Polyethylene Glycol 3350 17 GM/SCOOP Oral [...] the morning. 30 Tablet 11 05/23/2023 Active Pregabalin 25 MG Oral Capsule (Lyrica) Take 1 capsule at night x 1 week then increase to 1 capsule twice daily. 60 Capsule 1 05/25/2023 Active Gabapentin 100 MG Oral Capsule (Neurontin)Indicat ions:Neuropathy Take 1 Capsule by mouth 3 times a day as needed for Pain. 90 Capsule 0 04/24/2023 Discontinue d(Patient preference/ discontinua tion) documented as of this encounter (statuses as of 05/25/2023) Active Problems Problem Noted Date Iron deficiency [...] as of this encounter (statuses as of 05/25/2023) Resolved Problems Problem Noted Date Resolved Date [...] as of this encounter (statuses as of 05/25/2023) Immunizations Name Administration Dates Next Due COVID-19 mRNA, LNP-s, No Pre serve, 2-Dose Series (Zartis) 02/17/2021,01/27/2021 Pneumococcal Polysaccharide PPV23 (Pneumovax) Seasonal Influenza, [...] Sign Reading Time Taken Comments Blood Pressure 110/70 05/25/2023 2:04 PM EDT Pulse 62 05/25/2023 2:04 PM EDT Temperature 35.8 C (96.5 F) 05/25/2023 2:04 PM ED T Respiratory Rate 18 05/25/2023 2:04 PM EDT Oxygen Saturation - - Inhaled Oxygen Concentration - - Weight 117.6 kg (259 lb 3.2 oz) 05/25/2023 2:04 PM EDT Height - - Body Mass Index 43.13 05/23/2023 12:44 PM EDT documented in this [...] as of this encounter Progress Notes * Vernell Kimball PA-C - 05/25/2023 2:00 PM EDT HISTORY & PHYSICAL EXAMINATION - NEUROLOGY Name: Kristen Garcia Date: 05/25/2023 Time: 7:40 AM Chief Complaint Patient presents with Return Neuro SUBJECTIVE: Kristen Garcia is a 68 year old who returns today for follow up of neuropathy. She has burning pain across her feet for the past year, gradually worsening. She has chronic lower extremity edema due to CHF. History of 15yrs tobacco smoking. Last seen 03/27/23. 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 B12, folic acid, B6, HgbA1c all normal. TSH mildly hypothyroid Today states she continues to have burning pain across her feet. Gabapentin is not effective at 200mg HS and higher doses caused swelling in her lower extremities. Has pain at her left elbow and tingling down her arm into her 4th and 5th digits with numbness. Is now interested in surgical intervention. Allergies: Requip [ropinirole hcl], Cymbalta [duloxetine hcl], Dyazide [hydrochlorothiazide w/triamterene], Flexeril [cyclobenzaprine hcl], Hydrocodone, Lisinopril, Omeprazole, Percocet [oxycodone-acetaminophen], Sulindac, Tape [adhesive tape], Tetanus toxoid, and Tylenol [acetaminophen] Problem list: Patient Active Problem List Diagnosis Code Hirsutism [...] episode, mild (HCC) F32.0 Atherosclerosis of aorta ([facility]) I70.0 RLS (restless legs syndrome) G25.81 Nocturnal hypoxemia G47.34 Lipodermatosclerosis of both lower extremities I83.11, I83.12 Chronic kidney disease, stage 3b ([facility]) N18.32 Morbid (severe) obesity due to excess calories ([facility]) E66.01 Panic disorder (episodic paroxysmal anxiety) F41.0 Hyperlipidemia E78.5 BMI 40.0-44.9, adult ([facility]) Z68.41 Hypertensive heart disease with diastolic heart failure and stage 3b chronic kidney disease ([facility]) I13.0, I50.30, N18.32 Iron deficiency anemia due to chronic blood loss D50.0 Past Medical History: Past Medical History: Diagnosis Date Anxiety state, unspecified Brain aneurysm 2017 CHF (congestive heart failure) ([facility]) Depressive disorder, not elsewhere classified Generalized osteoarthrosis, unspecified site Hemorrhoids 06/02/202005/24 Internal & external noted colonoscopy Migraine, unspecified, without mention of intractable migraine without mention of status migrainosus Motion sickness Panic disorder without agoraphobia PONV (postoperative nausea and vomiting) Sleep apnea Unspecified essential hypertension Current Outpatient Medications: Current Outpatient Medications Medication Sig Dispense Refill Pregabalin 25 MG Oral Capsule (Lyrica) Take 1 capsule at night x 1 week then increase to 1 capsule twice daily. 60 Capsule 1 Aspirin 81 MG Oral Tablet Delayed Release [...] Tablet 2 Vitamin D (Ergocalciferol) 1.25 MG (48951 UT) Oral Capsule TAKE ONE CAPSULE BY MOUTH MONTHLY 12Capsule 0 Fluticasone Propionate 50 MCG/ACT Nasal Suspension (Flonase) Administer 2 Sprays into nostril in the morning. Losartan Potassium 25 MG Oral Tablet (Cozaar) Take 0.5 Tablets (12.5 mg) by mouth in the morning. 34 Tablet 11 Docusate Sodium 100 MG Oral Capsule (Colace) [...] BY MOUTH AT BEDTIME 90 Tablet 3 Magnesium 200 MG Oral Tablet Chewable Take 400 mg by mouth in the morning. 180 Tablet 3 Torsemide 10 MG Oral Tablet (Demadex) 20 mg in the morning 10 mg in the evening 90 Tablet 3 Metoprolol Succinate ER 25 MG Oral Tablet Extended Release 24 Hour (Toprol XL) Take 1 Tablet bymouth in the morning. 34 Tablet 6 rOPINIRole HCl 2 MG Oral Tablet (Requip) TAKE ONE TABLET BY MOUTH IN THE MORNING, ONE AT NOON AND ONE BEFORE BEDTIME. take with food 90 Tablet 0 Polyethylene Glycol 3350 17 GM/SCOOP Oral [...] mouth in the morning. 30 Tablet 11 No current facility-administered medications for this visit. Family History: Family History Problem Relation Age of Onset [...] ? leukemia Glaucoma None Denies family hx SOCIAL HISTORY: Social History Tobacco Use Smoking status: Former Packs/day: 0.25 Years: 25.00 Pack years: 6.25 Types: Cigarettes Quit date: 12/12/2002 Years since quittin.4 Smokeless tobacco: Never Tobacco comments: was smoking 1/2 pack per day Vaping Use Vaping Use: Never used Substance Use Topics Alcohol use: Not Currently Comment: rarely Drug use: Yes Types: Marijuana Comment: marijuana couple times per month REVIEW OF SYSTEMS: As above OBJECTIVE: Physical Examination: BP 110/70 | Pulse 62 | Temp 35.8 C (96.5 F) (Tympanic) | Resp 18 | Wt 117.6 kg (259 lb 3.2 oz) | BMI 43.13 kg/m | BSA 2.32 m General appearance: healthy, alert, no distress Physical Exam: Constitutional: Appearance normally developed,well nourished,no deformities,well groomed Head and face: normocephalic,atraumatic Respiratory: normal effort,clear to auscultation Cardiovascular: normal heart sounds and regular rhythm Psychiatric: normal judgement and insight,normal mood,normal affect NEUROLOGIC EXAMINATION: Mental Status Exam: alert,oriented to time, place, person,normal recent memory,normal remote memory,normal attention span,normal concentration,normal language,normal fund of knowledge Cranial Nerves: CN 2,3 - PERRLA CN 3, 4, 6 - Extra-ocular Movements Intact,no nystagmus CN 5 - Facial sensation intact and equal bilaterally CN 7 - no facial assymetry CN 8 - hearing grossly intact Muscle exam: Arm Right Left Leg Right Left Deltoid 5/5 5/5 Iliopsoas 5/5 5/5 Biceps 5/5 5/5 Triceps 5/5 5/5 Reflexes: Biceps BR Patellar Achilles Plantars Right 2+ 2+ 2+ 2+ Flexor Left 2+ 2+ 2+ 2+ Flexor Sensation: Ankle level to temp. Vibration present at great toes. Intact light touch. Reduced light touch 4th and 5th digits on right hand LABORATORY: Results for orders placed or performed in visit on 04/25/23 CBC Result Value Ref Range WBC 7.01 4.00 - 10.80 K/uL RBC 4.26 3.85 - 5.15 M/uL HGB 11.9 (L) 12.0 - 15.3 g/dL HCT 39.3 36.0 - 45.2 % MCV 92.3 81.5 - 97.5 fL MCH 27.9 27.0 - 34.0 pg MCHC 30.3 32.0 - 36.0 g/dL RDW 16.4 11.5 - 15.5 % PLT 263 140 - 400 K/uL MPV 10.8 6.6 - 11.1 fL nRBCs 0 <=0 /100 WBCs Results for orders placed or performed in visit on 04/06/23 BASIC METABOLIC PANEL Result Value Ref Range BUN 17 6 - 20 mg/dL Creatinine 1.2 (H) 0.5 - 1.0 mg/dL Estimated Glomerular Filtration Rate 51 (L) >=60 mL/min Sodium 141 135 - 146 mmol/L Potassium 4.1 3.5 - 5.1 mmol/L Chloride 101 98 - 107 mmol/L CO2 28 22 - 32 mmol/L Anion Gap 12 7 - 15 mmol/L Glucose 82 70 - 120 mg/dL Calcium 9.3 8.4 - 10.2 mg/dL Results for orders placed or performed in visit on 11/14/22 LIPID PANEL WITH DIRECT LDL IF TG IS HIGH Result Value Ref Range Triglycerides 125 <=174 mg/dL Cholesterol 160 <200 mg/dL HDL Cholesterol 56 >49 mg/dL Non-HDL Cholesterol 104 <=159 mg/dL LDL Cholesterol 79 <=129 mg/dL Lab Results Component Value Date/Time HEMOGLOBIN A1C - [facility] 5.5 03/27/2023 10:44 AM HEMOGLOBIN A1C - [facility] 5.6 04/04/2017 11:29 AM HEMOGLOBIN A1C - [facility] 5.5 10/23/2016 11:08 AM HEMOGLOBIN A1C - [facility] 5.5 01/22/2015 01:30 PM Lab Results Component Value Date/Time TSH - [facility] 4.49 (H) 04/06/2023 09:32 AM TSH - [facility] 5.03 (H) 03/27/2023 10:44 AM TSH - [facility] 3.25 12/10/2020 02:19 PM TSH - [facility] 3.24 04/28/2020 11:03 AM TSH - [facility] 2.80 04/02/2020 02:05 PM TSH - [facility] 1.81 03/05/2019 02:30 PM TSH - [facility] 2.280 03/25/2019 12:00 AM Results for orders placed or performed in visit on 03/27/23 VITAMIN B12 Result Value Ref Range Vitamin B12 287 232 - 1,245 pg/mL Results for orders placed or performed in visit on 03/27/23 FOLIC ACID Result Value Ref Range Folic Acid 5.1 >4.5 ng/mL Review of prior Studies: EMG 05/22/23 (Physician) See dictated study. 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 There is a moderate demyelinating left ulnar neuropathy in the across elbow segment not causing denervation. Bessy Corbett MD ASSESSMENT/PLAN: Kristen Garcia is a 68 year old female with length dependent lower extremity polyneuropathy with axonal features and an ulnar neuropathy of the left elbow. Borderline low B12 now on a supplement. Remote history of smoking in the past. Significant leg edema may be contributing to neuropathy. Will complete neuropathy workup with labs for autoimmune causes. Discussed likelihood we will not find a specific cause. Gabapentin is ineffective and higher doses caused lower extremity swelling in the past. Discussed Lyrica vs nortriptyline. Will attempt low dose Lyrica. Side effects reviewed. Referral to Ortho re left ulnar neuropathy, she is interested in potential surgery. Follow up in 6 months or sooner if needed. I spent a total of 40 minutes on the date of service in preparation, delivery, and documentation of the care provided to Kristen Garcia. Bessy Corbett MDavailable for direct consultation. Vernell Kimball PA-C, Neurology [address] [address] 05/25/23 2:59 PM documented in this encounter Nursing Notes * GENOVEVA Bell - 05/25/2023 2:04 PM EDT Chief Complaint Patient presents with Return Neuro documented in this encounter Plan of Treatment Upcoming Encounters Date Type Specialty Care Team Description 05/28/2023 Imaging Radiology 06/01/2023 Home Visit [facility] Ladi Joseph, RN [address] [facility] [place] [address] 06/18/2023 Laboratory Laboratory [address] [address] 06/27/2023 PulmDiagnostic Pulmonary Function West, Pft [address] [place] [address] 06/28/2023 Office Visit Orthopedics Christo Burk MD [address] [place] [phone] 07/05/2023 Telemedicine [facility] Jarad Orlando, HECTOR [address] [place] [address] Jenny Barton, Community Health Primary Health Care Nurse [address] [place] [address] 08/27/2023 Office Visit Allergy & Immunology Brennan Wasserman MD [address] [place] [address] 10/01/2023 Office Visit Cardiology Amaya Singleton PA-C [address] [facility] [place] [address] 11/23/2023 Office Visit Family Medicine Sotero Pizano MD [address] [place] [address] 11/27/2023 Office Visit Neurology Vernell Kimball, PAJeimyC [address] [place] [address] 12/10/2023 Nurse Only [facility] Nurse Annual [facility] [address] [place] [address] 04/08/2024 Office Visit Hematology Oncology Mario Kong MD [address] [place] [address] Pending Results Name Type Priority Associated Diagnoses Date /Time SERUM PROTEIN ELECTROPHORESIS REFLEX PROFILE Lab Routine Polyneuropathy 05/25/2023 2:46 PM EDT RHEUMATOID FACTOR Lab Routine Polyneuropathy 05/25/2023 2:46 PM EDT SSA/RO AND SSB/LA ANTIBODIES Lab Routine Polyneuropathy 05/25/2023 2:46 PM EDT Scheduled Referrals Name Type Priority Associated Diagnoses Order Schedule ORTHOPAEDICS REFERRAL OP Referral Within 10 days (routine) Ulnar neuropathy at elbow of left upper extremity Ordered: 05/25/2023 Health Maintenance Due Date Last Done Comments [...] Over 12/07/2023 12/07/2022 CKD PHOS USE SMARTSET 08029 03/16/202403/05, 03/29/2022, 05/13/2021, Additional history exists CKD HGB USE SMARTSET 75158 04/25/202404/25, 04/25/2023, 04/06/2023, Additional history exists Diabetes [...] this encounter Medical Devices Implanted Type Area Nursery Teacher Device Identifier Shelf Expiration Date Model / Serial / Lot Terumo Microvention Hydrosoft 3d Implanted:Qty: 1 on 08/16/2018 by Aime Casas MD [place] [facility]: Head [employer] : INTERVENTIONA 07/05/2023 [id number] / [id number] / [id number] Hd Offset Hum 46x16 - [id number] Implanted:Qty: 1 on 09/28/2020 by Teresa Rehman DO at OR [facility] Left: Shoulder [employer] 06/17/2026 520-46-31 6 / / [id number] documented as of this encounter Visit Diagnoses Diagnosis Ulnar neuropathy at elbow of left upper extremity- Primary Polyneuropathy Unspecified hereditary and idiopathic peripheral neuropathy documented in this encounter Advance Directives Latest [...] and were consensually agreed upon. Care Teams Tire Maintenance Technician Relationship Specialty Start Date End Date March, Sotero Sutton MD [address] [place] [address] PCP - General Family Medicine 12/07/22 documented as of this encounter
--- OUTSIDE RECORDS SUMMARY | 2023-11-15 04:38 | External Medical Summary | Summary of Care ---
Author Name Unknown Organization [facility] Address [address] [place] [address] Phone [phone] Care Team Providers Care Skull Chopper Name Role Phone Sotero Pizano MD Primary Care Provider [phone] Reason for Visit * Reason Onset Date Comments Order Request 05/28/2023 Encounter Details Date Type Department Care Team Description 05/28/2023 Telephone [facility] [address] [place] [address] Sotero Pizano MD [address] [place] [address] Order Request Allergies Active Allergy Reactions Severity Noted Date [...] as of this encounter (statuses as of 05/28/2023) Medications Medication Sig Dispensed Refills Start Date [...] 03/15/2022 Active Vitamin D (Ergocalciferol) 1.25 MG (33853 UT) Oral Capsule TAKE ONE CAPSULE BY [...] as of this encounter (statuses as of 05/28/2023) Active Problems Problem Noted Date Iron deficiency [...] as of this encounter (statuses as of 05/28/2023) Resolved Problems Problem Noted Date Resolved Date [...] as of this encounter (statuses as of 05/28/2023) Immunizations Name Administration Dates Next Due COVID-19 [...] Telephone Encounter - Sotero Pizano MD - 05/28/2023 4:21 PM EDT Mammogram order signed. Sotero Pizano MD * Telephone Encounter - STEFANY Lemos - 05/28/2023 12:02 PM EDT An order was requested for this patient. Name of Requesting Provider: Jerica Order Requested: mammogram Diagnosis/Reason for Request: routine If order request is for Mammogram: Is the patient having any breast symptoms? No Is there a chance of ? No Has the patient had any breast problems in the past? No Does the order need to be faxed somewhere? If so, where?: n/a Fax Number, if applicable: n/a Call Back Number: [phone] If the caller is not a current patient, please advise the patient to call their current PCP to havethe order's prior to being seen in our office. The patient was informed that our providers would not order anything (medication, labs, etc.) prior to being seen. documented in this encounter Plan of Treatment Upcoming Encounters Date Type Specialty Care Team Description 06/01/2023 Home Visit [facility] Ladi Joseph RN [address] [place] [address] 06/04/2023 Imaging Radiology 06/18/2023 Laboratory Laboratory [place] [address] [place] [facility] [place] [address] 06/27/2023 PulmDiagnostic Pulmonary Function West, Pft [address] [place] [address] 06/28/2023 Office Visit Orthopedics Christo Burk MD [address] [place] [address] 07/05/2023 Telemedicine [facility] DarionJarad CRNP [address] [place] [address] Jenny Barton, Community Health Steam Fitter Supervisor Maintenance [address] [place] [address] 08/22/2023 Office Visit Neurological Surgery Aime Casas MD [address] [place] [address] 08/27/2023 Office Visit Allergy & Immunology Brennan Wasserman MD [address] [place] [address] 10/01/2023 Office Visit Cardiology Amaya Singleton PA-C [address] [place] [address] 11/23/2023 Office Visit Family Medicine Sotero Pizano MD [address] [place] [address] 11/27/2023 Office Visit Neurology Vernell Kimball PA-C [address] [place] [address] 12/10/2023 Nurse Only [facility] Nurse Annual [facility] [address] [place] [address] 04/08/2024 Office Visit Hematology Oncology Mario Kong MD [address] [place] [address] Scheduled Orders Name Type Priority Associated Diagnoses Orde r Schedule MAMMOGRAM SCREENING MICHELLE BILATERAL Medical Imaging Routine Encounter for screening mammogram for malignant neoplasm of breast Expected: 05/28/2023, Expires: 06/28/2024 Health Maintenance Due Date Last Done Comments Mammogram 05/15/2020 05/15/2019, 08/03/2016, 03/15/2015, Additional history exists COVID-19 Vaccine (3 - Pfizer series) 04/14/2021 02/17/2021, 01/27/2021 Pneumococcal Vaccine: 65+ Years (2 - PCV) 02/24/2023 02/24/2022 Albumin/Creatinine Ratio 06/28/2023 06/28/2022 Influenza Vaccine (FLU shot) (#1) 2023 09/08/2021, 07/29/2020 GFR 10/06/2023 04/06/2023, 03/05, 03/16/2023, Additional history exists Depression Screening, Annual for Pts 12 and Over 12/07/2023 12/07/2022 CKD PHOS USE SMARTSET 87189 03/16/202403/05, 03/29/2022, 05/13/2021, Additional history exists CKD HGB USE SMARTSET 36906 04/25/202404/25, 04/25/2023, 04/06/2023, Additional history exists Diabetes [...] this encounter Medical Devices Implanted Type Area Embryology Teacher Device Identifier Shelf Expiration Date Model / Serial / Lot Celineo Microvention Hydrosoft 3d Implanted:Qty: 1 on 08/16/2018 by Aime Casas MD at [place] [facility] [place] N/A: Head [employer] : INTERVENTIONA 07/05/2023 [id number] / [id number] / [id number] Hd Offset Hum 46x16 - [id number] Implanted:Qty: 1 on 09/28/2020 by Teresa Rehman DO at OR [facility] Left: Shoulder [employer] 06/17/2026 520-46-31 6 / / [id number] documented as of this encounter Visit Diagnoses Diagnosis Encounter for screening mammogram for malignant neoplasm of breast- Primary Other screening mammogram documented in this encounter [...] and were consensually agreed upon. Care Teams Skull Chopper Relationship Specialty Start Date End Date March, Sotero Sutton MD [address] [place] [address] PCP - General Family Medicine 12/07/22 documented as of this encounter
--- OUTSIDE RECORDS SUMMARY | 2023-11-15 04:38 | External Medical Summary | Summary of Care ---
Author Name Unknown Organization [facility] Address [address] [place] [address] Phone [phone] Care Team Providers Care Plane Runner Name Role Phone Sotero Pizano MD Primary Care Provider [phone] Reason for Visit * Reason Comments Outpatient Testing Encounter Details Date Type Department Care Team Description 05/25/2023 Laboratory Laboratory Scenery [facility] [address] [place] [address] [facility] Lab Scenery [address] [place] [id number] Arrived Allergies Active Allergy Reactions Severity Noted [...] 03/15/2022 Active Vitamin D (Ergocalciferol) 1.25 MG (88730 UT) Oral Capsule TAKE ONE CAPSULE BY [...] [facility] Ladi Joseph, RN [address] [facility] [place] [address] 06/18/2023 Laboratory Laboratory [facility] [address] [place] [address] 06/27/2023 PulmDiagnostic Pulmonary Function West, Pft 132 [facility] [place] [address] 06/28/2023 Office Visit Orthopedics Christo Burk MD [facility] [place] [address] 07/05/2023 Telemedicine [facility] Jarad Orlando, HECTOR [address] [place] [address] Jenny Barton, [facility] Former [address] [place] [address] 08/27/2023 Office Visit Allergy & Immunology Brennan Wasserman MD [address] [place] [address] 10/01/2023 Office Visit Cardiology Amaya Singleton PAEdie [address] [facility] [address] 11/23/2023 Office Visit Family Medicine Sotero Pizano MD [address] [place] [address] 11/27/2023 Office Visit Neurology Vernell Kimball PA-C [address] [place] [address] 12/10/2023 Nurse Only Ancillary Carly Nurse [facility] [address] [facility] [address] 04/08/2024 Office Visit Hematology Oncology Mario Kong MD [address] [place] [address] Health Maintenance Due Date Last Done Comments [...] Over 12/07/2023 12/07/2022 CKD PHOS USE SMARTSET 25862 03/16/202403/05, 03/29/2022, 05/13/2021, Additional history exists CKD HGB USE SMARTSET 00173 04/25/202404/25, 04/25/2023, 04/06/2023, Additional history exists Diabetes [...] this encounter Medical Devices Implanted Type Area Breakfast Supervisor Device Identifier Shelf Expiration Date Model / Serial / Lot Terumo Microvention Hydrosoft 3d Implanted:Qty: 1 on 08/16/2018 by Aime Casas MD [place] [facility] [place]: Head [employer] : INTERVENTIONA 07/05/2023 9150-0760 / [id number] / [id number] Hd Offset Hum 46x16 - [id number] Implanted:Qty: 1 on 09/28/2020 by Teresa Rehman DO at OR [facility] Left: Shoulder DJO SURGICAL 06/17/2026 520-46-31 6 / / [id number] documented as of this encounter Advance Directives [...] and were consensually agreed upon. Care Teams Plane Runner Relationship Specialty Start Date End Date March, Sotero Sutton MD [address] [facility] [place] [id number] PCP - General Family Medicine 12/07/22 documented as of this encounter
--- OUTSIDE RECORDS SUMMARY | 2023-11-15 04:39 | External Medical Summary | Summary of Care ---
Author Name Unknown Organization [facility] Address [address] [facility] [place] [address] Phone [phone] Care Team Providers Care Lead Mobile Developer Name Role Phone Sotero Pizano MD Primary Care Provider [phone] Reason for Visit * Reason Onset Date Comments [facility]: Maintenance 05/04/2023 Encounter Details Date Type Department Care Team Description 05/04/2023 Telephone [facility], [facility] [address] [place] [address] Ladi Joseph RN [address] [place] [address] [facility]: Maintenance Allergies Active Allergy [...] as of this encounter (statuses as of 05/21/2023) Medications Medication Sig Dispensed Refills Start Date [...] 03/15/2022 Active Vitamin D (Ergocalciferol) 1.25 MG (59530 UT) Oral Capsule TAKE ONE CAPSULE BY [...] the morning. 34 Tablet 6 03/29/2023 Active Vitamin B-12 1000 MCG Oral Tablet (Cyanocobalamin)I ndications:B12 deficiency Take 1 Tablet by mouth in the morning. 30 Tablet 11 04/06/2023 Active rOPINIRole HCl 2 MG Oral Tablet (Requip) TAKE ONE TABLET BY MOUTH IN THE MORNING, ONE AT NOON AND ONE BEFORE BEDTIME. take with food 90 Tablet 0 04/24/2023 Active Gabapentin 100 MG Oral Capsule (Neurontin)Indica tions:Neuropathy Take 1 Capsule by mouth 3 times a day as needed for Pain. 90 Capsule 0 04/24/2023 Active Polyethylene Glycol 3350 17 GM/SCOOP Oral Powder (MiraLax)Indicati ons:Constipation, unspecified constipation type Take 17 g by mouth daily as needed for Constipation. Dissolve one heaping tablespoon in 8 ounces of water or juice. 238 g 0 04/30/2023 Active Ondansetron HCl 4 MG Oral Tablet (Zofran)Indicatio ns:Nausea take 1 tablet by mouth every 8 hours if needed for nausea 30 Tablet 5 05/03/2022 05/14/20 23 Discontinued documented as of this encounter (statuses as of 05/21/2023) Active Problems Problem Noted Date Iron deficiency [...] as of this encounter (statuses as of 05/21/2023) Resolved Problems Problem Noted Date Resolved Date [...] as of this encounter (statuses as of 05/21/2023) Immunizations Name Administration Dates Next Due COVID-19 [...] Miscellaneous Notes * Telephone Encounter - STEFANY Valenzuela - 05/21/2023 11:52 AM EDT Scheduled. 05/21/2023 * Telephone Encounter - Ladi Joseph RN - 05/04/2023 2:53 PM EDT Pt would like to see PCP within the next few weeks. She has an area on her anterior neck, small nickel sized hardened mass in the subcutaneous tissue. Not painful usually but she does notice it when looking down. No redness noted. Please help with getting an appt set up. Thank you. documented in this encounter Plan of Treatment Upcoming Encounters Date Type Specialty Care Team Description 05/21/2023 Hem/Onc Treatment Hematology Oncology [place], Chair 10 Hem Onc [facility] 200 [facility] [place] [address] 05/22/2023 Office Visit Neurology Vernell Kimball PA-C [address] [facility] [place] [address] 05/22/2023 NeuroDiagnostic Study Neurophysiology Bessy Corbett MD [address] [place] [address] 05/23/2023 Office Visit Family Medicine Sotero Pizano MD [address] [place] [address] 06/01/2023 Home Visit [facility] Ladi Joseph RN [address] [place] [address] 06/18/2023 Laboratory Laboratory [facility] Laboratory [address] [place] [address] 06/27/2023 PulmDiagnostic Pulmonary Function West, Pft [address] [place] [address] 07/05/2023 Telemedicine [facility] Jarad Orlando CRNP [address] [place] [address] Jenny Barton, Community Health Visiting Teacher [address] [place], [place] [address] 08/27/2023 Office Visit Allergy & Immunology Brennan Wasserman MD 200 [place] [address] 10/01/2023 Office Visit Cardiology Amaya Singleton PA-C [address] [place] [address] 12/10/2023 Nurse Only Ancillary [place], Nurse [facility] [address] [place] [address] 04/08/2024 Office Visit Hematology Oncology Mario Kong MD [address] [place] [address] Health Maintenance Due Date Last Done Comments [...] Over 12/07/2023 12/07/2022 CKD PHOS USE SMARTSET 96276 03/16/202403/05, 03/29/2022, 05/13/2021, Additional history exists CKD HGB USE SMARTSET 53060 04/25/202404/25, 04/25/2023, 04/06/2023, Additional history exists Diabetes [...] this encounter Medical Devices Implanted Type Area Grinder Chipper Device Identifier Shelf Expiration Date Model / Serial / Lot Terumo Microvention Hydrosoft 3d Implanted:Qty: 1 on 08/16/2018 by Aime Casas MD [place] [facility] [place]A: Head [employer] : INTERVENTIONA 07/05/2023 2688-4778 / [id number] / [id number] Hd Offset Hum 46x16 - [id number] Implanted:Qty: 1 on 09/28/2020 by Teresa Rehman, at OR [facility] Left: Shoulder DJO SURGICAL 06/17/2026 520-46-31 [id number] documented as of this encounter Advance Directives [...] were consensually agreed upon. Care Teams Lead Mobile Developer Relationship Specialty Start Date End Date March, Sotero Sutton MD [address] [place] [address] PCP - General Family Medicine 12/07/22 documented as of this encounter
--- OUTSIDE RECORDS SUMMARY | 2023-11-15 04:39 | External Medical Summary ---
Author Name Unknown Address Unknown Organization K01:[facility] - [address] [place] [address] Laboratory Report Ordering Provider Test Date Status JEANNIE OSPINA 05/25/2023 14:46:03 Final Observation Date Value Abnormality Reference (Units ) Status Rheumatoid Factor 05/25/2023 14:46:03 <10 <1 4 (IU/mL) Final Performing Location [facility] - [address] [place] [address]
--- OUTSIDE RECORDS SUMMARY | 2023-11-15 04:39 | External Medical Summary | Summary of Care ---
Author Name Unknown Organization [facility] Address [address] [place] [address] Phone [phone] Care Team Providers Care Dean Of Education Name Role Phone Sotero Pizano MD Primary Care Provider [phone] Reason for Visit * Reason Comments Acute Lump in neck x 3 wee ks Encounter Details Date Type Department Care Team Description 05/23/2023 Office Visit [facility] [address] [place] [address] Sotero Pizano MD [address] [place] [address] Neck pain on right side*; RLS (restless legs syndrome); Heart failure, diastolic, due to HTN (HCC); B12 deficiency; Chronic kidney disease, stage 3b (HCC); Iron deficiency anemia, unspecified iron deficiency anemia type; HTN, goal below 140/90 Allergies Active Allergy [...] as of this encounter (statuses as of 05/23/2023) Medications Medication Sig Dispensed Refills Start Date [...] 03/15/2022 Active Vitamin D (Ergocalciferol) 1.25 MG (17006 UT) Oral Capsule TAKE ONE CAPSULE BY [...] 04/24/2023 Active Gabapentin 100 MG Oral Capsule (Neurontin)Indicat [...] the morning. 30 Tablet 11 05/23/2023 Active Vitamin B-12 1000 MCG Oral Tablet (Cyanocobalamin)In dications:B12 deficiency Take 1 Tablet by mouth in the morning. 30 Tablet 11 04/06/2023 3 Discontinue d(Refill) documented as of this encounter (statuses as of 05/23/2023) Active Problems Problem Noted Date Iron deficiency [...] as of this encounter (statuses as of 05/23/2023) Resolved Problems Problem Noted Date Resolved Date [...] site 08/03/2004 05/10/2017 DYSFUNCT EUSTACHIAN TUBE 08/03/2004 07/06/2 017 Major depressive disorder 12/14/20032020 Overview: More specific dx on PL FAM HX-DIABETES MELLITUS 04/07/2002 017 Family history of other cardiovascular diseases 04/07/2002 08/19/2007 Overview: ICD-10 update of inactive term INTERNAL HEMRRHOID WITH BLEEDING 02/04/2002 05/10/2017 BENIGN SYLVIE SKIN LEG 02/04/2002 05/10/2017 RECTAL BLEEDING 02/04/2002 05/10/2017 SKIN TAGS 02/04/2002 05/10/2017 documented as of this encounter (statuses as of 05/23/2023) Immunizations Name Administration Dates Next Due COVID-19 [...] Sign Reading Time Taken Comments Blood Pressure 110/58 05/23/2023 12:44 PM EDT Pulse 80 05/23/2023 12:44 PM EDT Temperature - - Respiratory Rate 18 05/23/2023 12:44 PM EDT Oxygen Saturation 94% 05/23/2023 12:44 PM EDT Inhaled Oxygen Concentration - - Weight 118.4 kg (261 lb) 05/23/2023 12:44 PM EDT Height 165.1 cm (5' 5") 05/23/2023 12:44 PM EDT Body Mass Index 43.43 05/23/2023 12:44 PM EDT documented in this [...] as of this encounter Progress Notes * Sotero Pizano MD - 05/23/2023 12:57 PM EDT Images from the original note were not included. Assessment and Plan 1. Neck pain on right side Right-sided neck pain and the patient reported lump that I do not feel on exam today. We will get an ultrasound of the right-sided neck for further evaluation. - US HEAD AND NECK; Future 2. RLS (restless legs syndrome) Restless legs syndrome. Currently on Requip and gabapentin. Continue to follow up with Neurology for ongoing evaluation. 3. Heart failure, diastolic, due to HTN (HCC) Currently stable. She has history of hospitalizations for heart failure. Her weight has been stableon 30 mg of torsemide daily with intermittent extra 10 mg doses. Continue this dose given history of renal injury with increased doses of torsemide. 4. B12 deficiency Start daily B12 supplementation. - Vitamin B-12 1000 MCG Oral Tablet (Cyanocobalamin); Take 1 Tablet by mouth in the morning. Dispense: 30 Tablet; Refill: 11 5. Chronic kidney disease, stage 3b (HCC) Stable renal function. 6. Iron deficiency anemia, unspecified iron deficiency anemia type S/p venofer infusions following with hematology/oncology. 7. HTN, goal below 140/90 BP at goal. No change to medications. Wrap-Up Follow up in 6 months. History of Present Illness The patient is a 68 year old female with past medical history of HLD, STEFANY, paroxysmal atrial fibrillation, HTN, NAFLD, obesity, CKD stage 3, fibromyalgia who presents for follow up. Patient's main complaint today is a feeling of fullness and a lump along with pain on the right side of her neck below the angle of the jaw. This has been present for about 3 weeks. She does note that at times she feels like she has trouble breathing and swallowing. She denies night sweats. No change in weight that is significant. No nausea or vomiting. There is no overlying skin changes. No fevers, chills, other signs of systemic infection. From a cardiac standpoint the patient is in a good spot at the moment. She is currently taking 30 mg of torsemide daily. With this she intermittently needs to take an extra 10 mg dose, however, her weight has overall been stable. She did ask about increasing the torsemide to 40 mg daily, however, when this was tried post hospitalization a couple of months ago she had worsening renal function and a GFR that kulwinder at 30. Her renal function on last check was back to baseline with a creatinine of 1.2 and a GFR in the 50s. She continues to have leg numbness tingling and pain especially at night. She is currently taking gabapentin 200 mg nightly and Requip 2 mg in the morning and 4 mg at night. She did have a recent EMGand has follow up with Neurology for ongoing management in a couple of days. Physical Exam Vitals: 05/23/23 1244 Pulse: 80 Resp: 18 SpO2: 94% BP: 110/58 BMI: 43.43 Physical Exam Physical Exam Vitals reviewed. Constitutional: General: She is not in acute distress. Neck: Comments: Mild tenderness to palpation of the right submandibular gland and right lateral neck. No adenopathy. No masses palpated. Cardiovascular: Rate and Rhythm: Normal rate and regular rhythm. Heart sounds: No murmur heard. Pulmonary: Effort: Pulmonary effort is normal. No respiratory distress. Breath sounds: Normal breath sounds. No wheezing. Musculoskeletal: Cervical back: No rigidity. Lymphadenopathy: Cervical: No cervical adenopathy. Neurological: Mental Status: She is alert. documented in this encounter Nursing Notes * Benita Denton LPN - 05/23/2023 12:46 PM EDT The patient has been properly identified by confirmation of name and date of . Chief Complaint Patient presents with Acute Lump in neck x 3 weeks documented in this encounter Plan of Treatment Upcoming Encounters Date Type Specialty Care Team Description 05/25/2023 Office Visit Neurology Vernell Kimball PA-C [address] [facility] [place] [address] 05/28/2023 Imaging Radiology 06/01/2023 Home Visit [facility] Ladi Joseph RN [address] [place] [address] 06/18/2023 Laboratory Laboratory [address] [address] 06/27/2023 PulmDiagnostic Pulmonary Function West, Pft [address] [place] [address] 07/05/2023 Telemedicine [facility] Jarad Orlando CRNP [address] [place] [address] Jenny Barton, Community Health Business Process Expert [address] [place] [address] 08/27/2023 Office Visit Allergy & Immunology Brennan Wasserman MD 200 [place] [address] 10/01/2023 Office Visit Cardiology Amaya Singleton PA-C [address] [place] [address] 11/23/2023 Office Visit Family Medicine Sotero Pizano MD [address] [place] [address] 12/10/2023 [facility] [address] [place] [address] 04/08/2024 Office Visit Hematology Oncology Mario Kong MD 200 [place] [address] Scheduled Orders Name Type Priority Associated Diagnoses Orde r Schedule US HEAD AND NECK Medical Imaging Routine Neck pain on right side Expected: 05/23/2023, Expires: 06/23/2024 Health Maintenance Due Date Last Done Comments [...] Over 12/07/2023 12/07/2022 CKD PHOS USE SMARTSET 60894 03/16/202403/05, 03/29/2022, 05/13/2021, Additional history exists CKD HGB USE SMARTSET 95515 04/25/202404/25, 04/25/2023, 04/06/2023, Additional history exists Diabetes [...] this encounter Medical Devices Implanted Type Area Employment Counselor Device Identifier Shelf Expiration Date Model / Serial / Lot Terumo Microvention Hydrosoft 3d Implanted:Qty: 1 on 08/16/2018 by Aime Casas MD at [place] [facility] [place]/A: Head [employer] : INTERVENTIONA 07/05/2023 9001-2210 / [id number] / [id number] Hd Offset Hum 46x16 - [id number] Implanted:Qty: 1 on 09/28/2020 by Teresa Rehman DO at OR [facility] Left: Shoulder DJO SURGICAL 06/17/2026 520-46-31 [id number] documented as of this encounter Visit Diagnoses Diagnosis Neck pain on right side- Primary Cervicalgia RLS (restless legs syndrome) Restless legs syndrome (RLS) Heart failure, diastolic, due to HTN (HCC) Unspecified hypertensive heart disease with heart failure B12 deficiency Other B-complex deficiencies Chronic kidney disease, stage 3b (HCC) Iron deficiency anemia, unspecified iron deficiency anemia type HTN, goal below 140/90 Unspecified essential hypertension [...] and were consensually agreed upon. Care Teams Dean Of Education Relationship Specialty Start Date End Date March, Sotero Sutton MD [address] [place] [facility] [place] [address] PCP - General Family Medicine 12/07/22 documented as of this encounter
--- OUTSIDE RECORDS SUMMARY | 2023-11-15 04:39 | External Medical Summary | Summary of Care ---
Author Name Unknown Organization [facility] Address [address] [place] [address] Phone [phone] Care Team Providers Care Lighter Captain Name Role Phone Sotero Pizano MD Primary Care Provider [phone] Reason for Visit * Reason Comments EMG Encounter Details Date Type Department Care Team Description 05/22/2023 NeuroDiagnostic Study Neurophysiology [facility] 200 [facility] [place] [address] Bessy Corbett MD [address] [facility] [place] [address] Arrived Allergies Active Allergy Reactions Severity Noted [...] as of this encounter (statuses as of 05/22/2023) Medications Medication Sig Dispensed Refills Start Date [...] 03/15/2022 Active Vitamin D (Ergocalciferol) 1.25 MG (53496 UT) Oral Capsule TAKE ONE CAPSULE BY [...] 04/24/2023 Active Gabapentin 100 MG Oral Capsule (Neurontin)Indicati ons:Neuropathy Take 1 Capsule by mouth 3 times [...] FOR NAUSEA 30 Tablet 0 05/14/2023 Active documented as of this encounter (statuses as of 05/22/2023) Active Problems Problem Noted Date Iron deficiency [...] as of this encounter (statuses as of 05/22/2023) Resolved Problems Problem Noted Date Resolved Date [...] as of this encounter (statuses as of 05/22/2023) Immunizations Name Administration Dates Next Due COVID-19 [...] as of this encounter Progress Notes * Bessy Corbett MD - 05/22/2023 4:20 PM EDT See dictated study. 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 There is a moderate demyelinating left ulnar neuropathy in the across elbow segment not causing denervation. Bessy Corbett MD documented in this encounter Plan of Treatment Upcoming Encounters Date Type Specialty Care Team Description 05/23/2023 Office Visit Family Medicine Sotero Pizano MD [address] [place] [address] 05/25/2023 Office Visit Neurology Vernell Kimball PA-C [address] [place] [address] 06/01/2023 Home Visit [facility] Ladi Joseph RN [address] [place] [address] 06/18/2023 Laboratory Laboratory [facility] [address] [place] [address] 06/27/2023 PulmDiagnostic Pulmonary Function West, Pft 132 [facility] [place] [address] 07/05/2023 Telemedicine [facility] Jarad Orlando CRNP [address] [place] [address] Jenny Barton, Community Health Field Operations Supervisor [address] [place] [address] 08/27/2023 Office Visit Allergy & Immunology Brennan Wasserman MD 200 [place] [address] 10/01/2023 Office Visit Cardiology Amaya Singleton PA-C [address] [place] [address] 12/10/2023 Nurse Only Ancillary [place], Nurse [facility] [address] [facility] [place] [address] 04/08/2024 Office Visit Hematology Oncology Mario Kong MD [address] [facility], [place] [address] Health Maintenance Due Date Last Done Comments [...] Over 12/07/2023 12/07/2022 CKD PHOS USE SMARTSET 51377 03/16/202403/05, 03/29/2022, 05/13/2021, Additional history exists CKD HGB USE SMARTSET 33641 04/25/202404/25, 04/25/2023, 04/06/2023, Additional history exists Diabetes [...] this encounter Medical Devices Implanted Type Area Bariatric Surgeon Device Identifier Shelf Expiration Date Model / Serial / Lot Terumo Microvention Hydrosoft 3d Implanted:Qty: 1 on 08/16/2018 by Aime Casas [place] [facility] Head [employer] : INTERVENTIONA 07/05/2023 [id number] / [id number] / [id number] Hd Offset Hum 46x16 - [id number] Implanted:Qty: 1 on 09/28/2020 by Teresa Rehman DO at OR [facility] Left: Shoulder DJO SURGICAL 06/17/2026 520-46-31 6 / / [id number] documented as of this encounter Visit Diagnoses Diagnosis Polyneuropathy, peripheral sensorimotor axonal- Primary 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 Care Teams Lighter Captain Relationship Specialty Start Date End Date March, Sotero Sutton MD [address] [place] [address] PCP - General Family Medicine 12/07/22 documented as of this encounter
--- OUTSIDE RECORDS SUMMARY | 2023-11-15 04:39 | External Medical Summary | Summary of Care ---
Author Name Unknown Organization [facility] Address [address] [place] [address] Phone [phone] Care Team Providers Care Clod Puller Name Role Phone Sotero Pizano MD Primary Care Provider [phone] Reason for Visit * Reason Comments IV Therapy Venofer 02/06 Encounter Details Date Type Department Care Team Description 05/21/2023 Hem/Onc Treatment Hematology/Oncology Treatment, [place] [address] [place] [address] Peggy, Chair 10 Hem On[facility] [address] [place] [address] Iron deficiency anemia due to chronic blood loss* Allergies Active Allergy Reactions Severity Noted Date [...] 03/15/2022 Active Vitamin D (Ergocalciferol) 1.25 MG (36618 UT) Oral Capsule TAKE ONE CAPSULE BY [...] Sign Reading Time Taken Comments Blood Pressure 108/70 05/21/2023 1:30 PM EDT Pulse 66 05/21/2023 1:30 PM EDT Temperature 36.1 C (96.9 F) 05/21/2023 1:30 PM ED T Respiratory Rate 18 05/21/2023 1:30 PM EDT Oxygen Saturation 93% 05/21/2023 1:30 PM EDT Inhaled Oxygen Concentration - - Weight - [...] as of this encounter Nursing Notes * Gem Gomez RN - 05/21/2023 4:49 PM EDT Chair 12. IV inserted into L arm. Patient here today for 4/4 Venofer infusion, tolerating well, no problems or concerns.Pt here todaywith granddaughter -- both comfortable and denies further needs at this time. Safety and Risk for Injury Patient will remain free from injury. Ensure appropriate safety devices are available. Provide and maintain safe environment. Goals: Patient will remain free from injury. Possible barriers to meeting goals: ambulating with IV pole Stability of the patient: Moderately stable - low risk of patient condition declining or worsening Summary regarding today's goals: Met: Pt remained free of harm today Patient tolerated treatment well without any acute issues or problems. Patient left facility in stable condition and denied any further needs. documented in this encounter Plan of Treatment Upcoming Encounters Date Type Specialty Care Team Description 05/22/2023 Office Visit Neurology Vernell Kimball PA-C [address] [facility] [place] [address] 05/22/2023 NeuroDiagnostic Study Neurophysiology Bessy Corbett MD [address] [facility], [place] [address] 05/23/2023 Office Visit Family Medicine Sotero Pizano MD [address] [place] [address] 06/01/2023 Home Visit [facility] Ladi Joseph, RN [address] [place] [address] 06/18/2023 Laboratory Laboratory [facility] [address] [place] [address] 06/27/2023 PulmDiagnostic Pulmonary Function [place], Pft [address] [place] [address] 07/05/2023 Telemedicine [facility] Jarad Orlando CRNP [address] [place] [address] Jenny Barton, [facility] [employer] [address] [place] [address] 08/27/2023 Office Visit Allergy & Immunology Brennan Wasserman MD [address] [place] [address] 10/01/2023 Office Visit Cardiology Amaya Singleton PA-C [address] [facility] [place] [address] 12/10/2023 Nurse Only Ancillary [place], Nurse [facility] [address] [place] [address] 04/08/2024 Office Visit Hematology Oncology Mario Kong MD [address] [place] [address] Health Maintenance Due Date Last Done Comments [...] Over 12/07/2023 12/07/2022 CKD PHOS USE SMARTSET 27437 03/16/202403/05, 03/29/2022, 05/13/2021, Additional history exists CKD HGB USE SMARTSET 50311 04/25/202404/25, 04/25/2023, 04/06/2023, Additional history exists Diabetes [...] this encounter Medical Devices Implanted Type Area Occupational Therapist Assistants Device Identifier Shelf Expiration Date Model / Serial / Lot Just [employer] Hydrosoft 3d Implanted:Qty: 1 on 08/16/2018 by Aime Casas MD at OR [facility] N/A: Head [employer] MEDICAL : INTER[employer]ION[employer] 07/05/2023 [id number] / [id number] / [id number] Hd Offset Hum [id number] - [id number] Implanted:Qty: 1 on 09/28/2020 by Teresa Rehman DO at OR [facility] Left: Shoulder [employer] 06/17/2026 [id number] documented as of this encounter Visit Diagnoses Diagnosis Iron deficiency anemia due to chronic blood loss- Primary Iron deficiency anemia secondary to blood loss (chronic) documented in this encounter Administered Medications Active Administered Medications - up to 3 most recent administrations Medication Order MAR Action Action Date Dose Rate Site diphenhydrAMINE (Benadryl) inj 50 mg 50 mg, IV Push, ONCE PRN Other, Hypersensitivity Reaction, Starting on Sun05/21/23 at 1403, Until Sun05/22/23 at 1402, For 24 hours EPINEPHrine 1 MG/ML inj 0.3 mg 0.3 mg, Intramuscular, ONCE PRN Other, Hypersensitivity Reaction or Anaphylaxis, Starting on Sun05/21/23 at 1403, Until Sun05/22/23 at 1402, For 24 hours hEParin 100 UNIT/ML Lock Flush inj 500 Units 500 Units (5 mL), IV Lock, PRN Other, IV Flush, Starting on Sun05/21/23 at 1403, Until Sun05/22/23 at 1402, For 24 hours, Do not flush if lock, PICC, or central line not in place; IV infusing or unable to flush. Hydrocortisone Sod Suc (PF) (Solu-Cortef) inj 100 mg 100 mg, IV Push, ONCE PRN Other, Hypersensitivity Reaction, Starting on Sun05/21/23 at 1403, Until Sun05/22/23 at 1402, For 24 hours NSS infusion 500 mL, Intravenous, at 50 mL/hr, CONTINUOUS, Starting on Sun05/21/23 at 1515, Until Sun05/22/23 at 0114 Start Infusion 05/21/2023 1:45 PM EDT 500 mL 50 mL/hr oxygen GAS Inhalation, OXYGEN, First dose on Sun05/21/23 at 1600, Until Discontinued, Device/Managed by: Low Flow Device, Goal SPO2 (%): 91-95, Starting Device: Nasal Cannula, Inital Flow Rate (LPM): 2, Lowest Support: Nasal Cannula: Flow 0-6 LPM. Titrate up/down by 1 LPM., Higher Support: Non-Rebreather (NRB) Mask: Minimum of 10 LPM. Titrate to maintain bag inflation., Titration Interval: Q2 minutes and as needed., Notify Provider: For sudden DECREASE in resting SPO2 to less than 85% and when escalating delivery device. sodium chloride 0.9 % flush central line 10 mL 10 mL, IV Push, PRN Other, IV Flush, Starting on Sun05/21/23 at 1403, Until Sun05/22/23 at 1402, For 24 hours, Do not flush if lock, PICC, or central line not in place; IV infusing or unable to flush. Inactive Administered Medications - up to 3 most recent administrations Medication Order MAR Action Action Date Dose Rate Site Iron Sucrose (Venofer) 300 mg in NSS 250 mL ivpb 300 mg, IV Piggyback, ONCE, 1 dose, On Sun05/21/23 at 1545, Administer over 90 Minutes Start Infusion 05/21/2023 1:45 PM EDT 300 mg 166.67 mL/hr documented in this encounter Advance Directives Latest [...] and were consensually agreed upon. Care Teams Clod Puller Relationship Specialty Start Date End Date March, Sotero Sutton MD [address] [place] [address] PCP - General Family Medicine 12/07/22 documented as of this encounter
[2023-11-15] MEDS ORDERED: LOSARTAN POTASSIUM 25 MG TAB PO STA (06:17)
--- NOTE | 2023-11-15 06:18 | History & Physical Report ---
Date of Service November 15, 2023 Assessment & Plan (1) Shortness of breath: Plan: Mild CHF secondary to RSV infection hx chronic diastolic heart failure (EF 65 to 70%, TTE 2022) Anxiety contributory Hypokalemia secondary to diuretic Rx Leg swelling rule out recurrent DVT PAF as per records, patient NSR, not on anticoagulation secondary to hemorrhoidal bleed as per records hypertension, stable hyperlipidemia, on statin Rx nocturnal hypoxemia/severe STEFANY on CPAP history of cerebral aneurysm status post surgery fibromyalgia OBS PCU Supportive management for viral illness Continue home diuretic Rx Replace potassium Strict I/Os, daily weights, CHF education Cardiology consult if without improvement Anxiolytic as needed LE venous Dopplers rule out DVT PT OT eval once medically stable DVT prophylaxis. Lovenox subcu Full code Text document was generated using [employer] voice recognition software. It may contain grammatical or spelling errors. Kindly contact undersigned for clarification of any documentation item in question. History of Present Illness Chief Complaint: Cough, worsening shortness of breath Primary Care Provider: Sotero Pizano MD History obtained from patient and records. Medical history significant for chronic diastolic heart failure (EF 65 to 70%, TTE 2022), PAF as per records (not on anticoagulation secondary to hemorrhoidal bleed as per records), hypertension, hyperlipidemia, nocturnal hypoxemia/severe STEFANY on CPAP, history of cerebral aneurysm status post surgery, chronic lymphedema, past history DVT status post Coumadin, NAFLD, PMR/giant cell arteritis as per records, anxiety/mood disorder, fibromyalgia as per records, past tobacco abuse Last confinement February 2023 for chest pain/CHF. 3 weeks history of cough symptoms productive of clear sputum, congestion and chest pain from coughing. Not sure about sick contacts. Has not received COVID-19 vaccination. Worsening shortness of breath and bilateral leg swelling associated with 3 pound weight gain in the last week. Patient instructed by digital press operator to take extra diuretic. Patient compliant with home CPAP machine. Patient consulted ER for worsening symptoms. IV Lasix administered at the ER. Patient currently feels much better and feels she is back to to her baseline after diuresis at the ER. 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 Allergies Allergy/AdvReac Type Severity Reaction Status Date / Time adhesive Allergy Intermediate "Tape" -- Verified 11/15/23 00:50 blisters azithromycin Allergy Intermediate Rash Verified 11/15/23 00:50 cyclobenzaprine Allergy Intermediate RASH Verified 11/15/23 00:50 duloxetine [From Cymbalta] Allergy Intermediate RASH/NAUSEA Verified 11/15/23 00:50 /VOMITING sulindac Allergy Intermediate HIVES Verified 11/15/23 00:50 amoxicillin Allergy Unknown PER [facility] Verified 11/15/23 00:50 MED LIST acetaminophen [From Tylenol] AdvReac Severe restless Verified 11/15/23 00:50 legs hydrochlorothiazide AdvReac Intermediate COUGH Verified 11/15/23 00:50 hydrocodone AdvReac Intermediate AGGRAVATES Verified 11/15/23 00:50 RLS lisinopril AdvReac Intermediate Cough Verified 11/15/23 00:50 oxycodone AdvReac Intermediate AGGRAVATES Verified 11/15/23 00:50 RLS ropinirole [From Requip] AdvReac Intermediate Tachycardia Verified 11/15/23 00:50 tetanus toxoid, adsorbed AdvReac Intermediate IRRITABILIT Verified 11/15/23 00:50 Y triamterene AdvReac Intermediate COUGH Verified 11/15/23 00:50 Home Medications Medication Instructions Recorded Confirmed Type aspirin 81 mg tablet,delayed 81 mg PO QAM 02/09/19 11/15/23 History release fluticasone propionate 50 2 spray intranasal QA 02/09/19 11/15/23 History mcg/actuation nasal spray,suspension (Flonase Allergy Relief) ergocalciferol (vitamin D2) 1,250 1,250 mcg PO MONTHLY 04/30/20 11/15/23 History mcg (50,000 unit) capsule (Vitamin D2) losartan 25 mg tablet (Cozaar) 12.5 mg PO QAM 04/30/20 11/15/23 History atorvastatin 10 mg tablet 10 mg PO QAM 07/20/22 11/15/23 History docusate sodium 100 mg capsule 100 mg PO BID 07/20/22 11/15/23 History (Colace) ipratropium 0.5 mg-albuterol 3 mg 3 ml inhalation TID 07/20/22 11/15/23 History (2.5 mg base)/3 mL nebulization soln ropinirole 2 mg tablet 4 mg PO BID 07/20/22 11/15/23 History albuterol sulfate 90 mcg/actuation 2 puff inhalation Q4H PRN 11/15/23 11/15/23 History aerosol inhaler (Proventil HFA) CONGESTION/COUGH/WHEEZING cholecalciferol (vitamin D3) 25 50 mcg PO DAILY 11/15/23 11/15/23 History mcg (1,000 unit) capsule (Vitamin D3) cyanocobalamin (vitamin B-12) 1,000 mcg PO DAILY 11/15/23 11/15/23 History 1,000 mcg tablet (Vitamin B-12) magnesium oxide 400 mg PO DAILY 11/15/23 11/15/23 History meclizine 12.5 mg tablet 12.5 mg PO TID PRN Dizziness 11/15/23 11/15/23 History metoprolol succinate 25 mg 25 mg PO DAILY 11/15/23 11/15/23 History tablet,extended release 24 hr ondansetron HCl 4 mg tablet 4 mg PO Q8H PRN NAUSEA/VOMITING 11/15/23 11/15/23 History potassium chloride 20 mEq 20 meq PO BID 11/15/23 11/15/23 History tablet,extended release(part/cryst) sennosides 8.6 mg tablet (senna) 8.6 mg PO DAILY 11/15/23 11/15/23 History torsemide 10 mg tablet See Rx Instructions .Route .COMPLEX 11/15/23 11/15/23 History trazodone 150 mg tablet 150 mg PO HS 11/15/23 11/15/23 History triamcinolone acetonide 0.05 % 1 applic topical BID PRN Skin 11/15/23 11/15/23 History topical ointment Irritation Past Med/Surg History Medical History Anxiety Atrial fibrillation dx 2017--intermittent--on metoprolol--follows with Dr. Shipman Brain aneurysm s/p repair (2018) CHF (congestive heart failure) follows with [facility] cardio CKD (chronic kidney disease), stage III Depression Dyspnea nebulizer/inhaler daily and prn Fibromyalgia Hiatal hernia History of basal cell carcinoma History of COVID-19 diagnosed 11/2021--mild symptoms, no symptoms now History of migraine Hypertension Morbid obesity with BMI of 45.0-49.9, adult On home oxygen therapy 2L via CPAP at HS Osteoarthritis Restless leg Sleep apnea CPAP with 2L at HS Surgical History Awareness under anesthesia H/O cerebral aneurysm repair 2018 - [place] - follows [facility] neurosurgery History of basal cell carcinoma (BCC) excision History of benign breast biopsy History of section History of colonoscopy last 2019 @ [facility] History of esophagogastroduodenoscopy (EGD) last 2019 @ [facility] History of exploratory laparotomy History of eyelid surgery History of tonsillectomy History of total abdominal hysterectomy and bilateral salpingo-oophorectomy Slow to wake up after anesthesia Family History Other Diabetes Heart disease Hypertension No family history of adverse response to anesthesia Social History Smoking Status: Former smoker Second Hand Exposure: No; Do You Dip or Chew Tobacco: No; Hx Alcohol Use: No Hx Substance Use: No Preferred Language: Tristanian Communication Ability: Effective Paring Machine Operator Required: No Beliefs That Will Affect Care: None Current Living Situation: Spouse Feels Safe at Home: Yes Assistive Devices: None Review of Systems Review of Systems: As per HPI, all other systems reviewed and negative Physical Exam Physical Exam: GENERAL: Slightly uncomfortable, anxious, morbidly obese, no respiratory distress SKIN: Normal color, warm HEENT: Bespectacled, pink palpebral conjunctivae, no ptosis, dry buccal mucosa NECK : Supple, short neck, no tenderness CHEST : Decreased breath sounds, no tenderness HEART : RRR, no obvious murmurs ABDOMEN: Some distention, nontender EXTREMITIES : Bilateral LE swelling, no LE tenderness, no other conspicuous deformities noted NEUROLOGIC : Coherent, no facial asymmetry, no other gross focality Results & Data Results & Data Vital Signs (Past 12 Hours) Vital Signs Temp Pulse Resp BP Pulse Ox O2 Del Method O2 Flow Rate 11/15/23 05:30 75 15 183/87 H 94 Room Air 11/15/23 05:00 79 13 115/63 97 Nasal Cannula 2 11/15/23 04:30 85 20 139/77 97 Nasal Cannula 2 11/15/23 04:22 78 11/15/23 04:00 71 16 138/66 97 Nasal Cannula 2 11/15/23 03:30 74 12 115/57 L 95 Nasal Cannula 2 11/15/23 03:02 75 15 156/67 H 98 Nasal Cannula 2 11/15/23 02:30 71 14 113/64 97 Nasal Cannula 2 11/15/23 02:00 74 20 143/65 H 96 Nasal Cannula 2 11/15/23 01:33 78 21 147/84 H 99 Nasal Cannula 2 11/15/23 01:11 74 21 130/73 98 Nasal Cannula 2 11/15/23 01:00 73 15 130/73 98 Room Air 11/15/23 00:39 Room Air 11/15/23 00:38 95 Room Air 11/15/23 00:30 82 21 96 Room Air 11/15/23 00:18 73 11/15/23 00:06 100 H 20 125/82 11/14/23 23:46 36.6 C 90 22 127/90 97 Room Air Laboratory Results Laboratory Results WBC 7.17 K/ul (4.8-10.8) 11/15/23 00:20 RBC 4.25 M/uL (4.20-5.40) 11/15/23 00:20 Hgb 13.1 g/dl (12.0-16.0) 11/15/23 00:20 Hct 39.9 % (37.0-47.0) 11/15/23 00:20 MCV 93.9 fL (80.0-100.0) 11/15/23 00:20 MCH 30.8 pg (25.0-34.0) 11/15/23 00:20 MCHC 32.8 g/dL (32.0-36.0) 11/15/23 00:20 RDW Std Deviation 46.9 fL (36.4-46.3) H 11/15/23 00:20 RDW Coeff of Anurag 13.7 % (11.5-14.5) 11/15/23 00:20 Plt Count 222 K/uL (130-400) 11/15/23 00:20 MPV 9.9 fL (9.4-12.4) 11/15/23 00:20 Immature Gran % (Auto) 0.8 % 11/15/23 00:20 Neut % (Auto) 66.8 % 11/15/23 00:20 Lymph % (Auto) 17.3 % 11/15/23 00:20 Bibb % (Auto) 10.6 % 11/15/23 00:20 Eos % (Auto) 4.2 % 11/15/23 00:20 Baso % (Auto) 0.3 % 11/15/23 00:20 Neut # (Auto) 4.79 K/uL (1.40-6.50) 11/15/23 00:20 Lymph # (Auto) 1.24 K/uL (1.20-3.40) 11/15/23 00:20 Bibb # (Auto) 0.76 K/uL (0.11-0.59) H 11/15/23 00:20 Eos # (Auto) 0.30 K/uL (0.00-0.50) 11/15/23 00:20 Baso # (Auto) 0.02 K/uL (0.00-0.20) 11/15/23 00:20 Immature Gran # (Auto) 0.06 K/uL (0.01-0.20) 11/15/23 00:20 PT 10.9 Seconds (9.0-12.0) 11/15/23 00:20 INR 1.0 (0.9-1.1) 11/15/23 00:20 Sodium 138 mmol/L (136-145) 11/15/23 00:20 Potassium 3.2 mmol/L (3.5-5.1) L 11/15/23 00:20 Chloride 99 mmol/L (98-107) 11/15/23 00:20 Carbon Dioxide 30 mmol/L (21-32) 11/15/23 00:20 Anion Gap 9 (3-11) 11/15/23 00:20 BUN 17 mg/dl (6-23) 11/15/23 00:20 Creatinine 1.13 mg/dl (0.6-1.2) 11/15/23 00:20 Est Cr Clr Drug Dosing 61.2 ml/min 11/15/23 00:20 Est GFR ( Amer) 58.2 ml/min 11/15/23 00:20 Est GFR (Non-Af Amer) 50.3 ml/min 11/15/23 00:20 BUN/Creatinine Ratio 15.0 (10-20) 11/15/23 00:20 Glucose 88 mg/dl (70-99(Fasting)) 11/15/23 00:20 Calcium 8.7 mg/dl (8.6-10.3) 11/15/23 00:20 Magnesium 2.1 mg/dl (1.7-2.4) 11/15/23 00:20 Total Bilirubin 0.5 mg/dl (0.2-1.0) 11/15/23 00:20 AST 15 U/L (13-39) 11/15/23 00:20 ALT 13 U/L (7-52) 11/15/23 00:20 Alkaline Phosphatase 106 U/L (34-104) H 11/15/23 00:20 Troponin I High Sens 4.6 pg/ml (0-14) 11/15/23 00:20 B-Natriuretic Peptide 20 pg/ml (0-100) 11/15/23 00:20 Total Protein 7.3 gm/dl (6.0-8.3) 11/15/23 00:20 Albumin 3.9 gm/dl (3.4-5.0) 11/15/23 00:20 Globulin 3.4 gm/dl (2.5-4.0) 11/15/23 00:20 Albumin/Globulin Ratio 1.1 (0.9-2) 11/15/23 00:20 TSH 5.675 uIu/ml (0.300-4.500) H 11/15/23 00:20 Free T4 0.98 ng/dl (0.61-1.60) 11/15/23 00:20 Adenovirus (PCR) Not Detected (NotDetected) 11/15/23 00:20 B. pertussis DNA (PCR) Not Detected (NotDetected) 11/15/23 00:20 B.parapertussis DNA PCR Not Detected (NotDetected) 11/15/23 00:20 C. pneumoniae DNA (PCR) Not Detected (NotDetected) 11/15/23 00:20 Coronavirus OC43 (PCR) Not Detected (NotDetected) 11/15/23 00:20 Coronavirus HKU1 (PCR) Not Detected (NotDetected) 11/15/23 00:20 Coronavirus 229E (PCR) Not Detected (NotDetected) 11/15/23 00:20 SARS-CoV-2 (PCR) Not Detected (NotDetected) 11/15/23 00:20 Coronavirus NL63 (PCR) Not Detected (NotDetected) 11/15/23 00:20 Human Metapneumovir PCR Not Detected (NotDetected) 11/15/23 00:20 Influenza Type A (PCR) Not Detected (NotDetected) 11/15/23 00:20 Influenza Type B (PCR) Not Detected (NotDetected) 11/15/23 00:20 M. pneumoniae (PCR) Not Detected (NotDetected) 11/15/23 00:20 Parainfluenza 1 (PCR) Not Detected (NotDetected) 11/15/23 00:20 Parainfluenza 2 (PCR) Not Detected (NotDetected) 11/15/23 00:20 Parainfluenza 3 (PCR) Not Detected (NotDetected) 11/15/23 00:20 Parainfluenza 4 (PCR) Not Detected (NotDetected) 11/15/23 00:20 RSV (PCR) DETECTED (NotDetected) A* 11/15/23 00:20 Entero/Rhino (PCR) Not Detected (NotDetected) 11/15/23 00:20 Diagnostic Findings Chest x-ray as per my interpretation, cardiomegaly, minimal congestion EKG as per my interpretation : Rate 70, NSR, normal axis, septal infarct, nonspecific T wave abnormalities
[2023-11-15] MEDS ORDERED: hydrOXYzine HCl 25 MG TAB PO PRN (06:25)
[2023-11-15] MEDS ORDERED: BENZONATATE 100 MG CAPSULE PO PRN (06:25)
[2023-11-15] MEDS ORDERED: MECLIZINE 12.5 MG TAB PO PRN (07:18)
--- NOTE | 2023-11-15 07:26 | XRay Report ---
XR chest 1V portable CLINICAL HISTORY: Shortness of breath. Cough. COMPARISON STUDY: Chest radiograph and chest CT February 16, 2023. FINDINGS: Left shoulder arthroplasty is incidentally noted. There is severe osteoarthritis of the rig ht glenohumeral joint. Cardiomegaly is unchanged. There is pulmonary vascular congestion. No pneumoth orax or pleural effusion. IMPRESSION: Stable cardiomegaly. Pulmonary vascular congestion. ACT 112: Negative or not required by law. Electronically signed by: David Starks M.D. 11/15/2023 7:25 AM
[2023-11-15] MEDS ORDERED: XOPENEX/ATROVENT 1.25mg/0.5MG NEB COMBO NEB SCH (09:00)
--- NOTE | 2023-11-15 09:16 | Ultrasound Report ---
BILATERAL LOWER EXTREMITY VENOUS DOPPLER HISTORY: leg swelling COMPARISON STUDY: None. FINDINGS: There is normal compressibility, flow, and augmentation within the visualized bilateral low er extremity deep venous systems. Of note, the left posterior tibial vein was not clearly identified on this study. IMPRESSION: No DVT within the visualized right or left lower extremity. ACT 112: Negative or not required by law. Electronically signed by: Guicho Vera M.D. 11/15/2023 9:14 AM
[2023-11-15] MEDS: LEVALBUTEROL 1.25 MG/3 ML NEB NEB SCH ×4 (09:33→19:34)
[2023-11-15] MEDS: IPRATROPIUM BROMIDE NEB SOLN 0.02% 2.5 ML VIAL INH SCH ×4 (09:34→19:34)
[2023-11-15] MEDS: rOPINIRole HCL 2 MG TABLET PO SCH ×2 (10:56→20:12)
[2023-11-15] MEDS: METOPROLOL SUCC 25MG EXT REL TAB PO SCH (10:57)
[2023-11-15] MEDS: POTASSIUM CHLORIDE CRTAB 20 MEQ TABCR PO SCH ×2 (10:57→20:13)
[2023-11-15] MEDS: CYANOCOBALAMIN (B-12) 500 MCG TABLET PO SCH (10:57)
[2023-11-15] MEDS: ASPIRIN 81 MG ECTAB PO SCH (10:58)
[2023-11-15] MEDS: ATORVASTATIN 10 MG TAB PO SCH (10:58)
[2023-11-15] MEDS: FLUTICASONE PROPIONATE NA SPR 16 GM BTL SCH (10:58)
[2023-11-15] MEDS: SENNA 8.6 MG TAB PO SCH (10:59)
[2023-11-15] MEDS: ENOXAPARIN INJ 40 MG/0.4 ML SYR SQ SCH (10:59)
[2023-11-15] MEDS: DOCUSATE SODIUM 100 MG CAP PO SCH ×2 (10:59→20:15)
--- NOTE | 2023-11-15 12:50 | Electrocardiogram Report ---
Test Reason : Blood Pressure : / mmHG Vent. Rate : 085 BPM Atrial Rate : 085 BPM P-R Int : 198 ms QRS Dur : 076 ms QT Int : 376 ms P-R-T Axes : 078 050 028 degrees QTc Int : 447 ms Normal sinus rhythm Low voltage QRS Nonspecific T wave abnormality Anterior leads Abnormal ECG When compared with ECG of 15-NOV-2023 00:00, No significant change was found Confirmed by Reza Agosto ([id number]) on 11/15/2023 12:50:07 PM Referred By: REFERRED SELF Confirmed By:Reza Agosto
--- NOTE | 2023-11-15 12:50 | Electrocardiogram Report ---
Test Reason : Blood Pressure : / mmHG Vent. Rate : 072 BPM Atrial Rate : 072 BPM P-R Int : 204 ms QRS Dur : 078 ms QT Int : 406 ms P-R-T Axes : 056 049 019 degrees QTc Int : 444 ms Normal sinus rhythm Low voltage QRS Nonspecific T wave abnormality Anterior leads Abnormal ECG When compared with ECG of 16-FEB-2023 10:23, Nonspecific T wave abnormality has replaced inverted T waves in Anterior leads Confirmed by Reza Agosto ([id number]) on 11/15/2023 12:49:50 PM Referred By: REFERRED SELF Confirmed By:Reza Agosto
[2023-11-15] MEDS: guaiFENesin/DEXTROM SYRUP 200MG/20MG 10ML UDC PO PRN ×2 (13:16→20:12)
--- NOTE | 2023-11-15 15:47 | Hospitalist Progress Note ---
Date of Service November 15, 2023 Assessment & Plan (1) Shortness of breath: Plan: RSV infection Acute on chronic diastolic heart failure--POA Hypoxia secondary to above --CXR:Stable cardiomegaly. Pulmonary vascular congestion. --Venous Doppler:No DVT within the visualized right or left lower extremity. --ECHO February 2023: Normal left ventricular wall thickness. No regional wall motion abnormality. EF 65 to 70%. Grade 1 diastolic dysfunction. No significant valvular pathology. Received IV Lasix Continue supplemental oxygen as able Continue torsemide Continue nebs, antitussives as needed Monitor volume status closely Hypokalemia secondary to diuretic Rx Monitor and replete electrolytes as needed Chronic Leg swelling Venous Doppler showed no signs of DVT Diuresis as above Paroxysmal atrial fibrillation Continue metoprolol Not on anticoagulation due to hemorrhoidal bleed as per records Hypertension hyperlipidemia Continue home medications Monitor BP Nocturnal hypoxemia severe STEFANY Continue CPAP HS H/O Cerebral aneurysm S/P surgery Fibromyalgia Continue home medications Morbid obesity BMI 42 DVT Px: Lovenox SQ Code Status Full code Admission and Anticipated Discharge Date Admission Date: November 15, 2023 Subjective Patient is seen and examined at bedside States having cough, some chest discomfort associated with cough Also reports nausea No diarrhea today Less dyspnea today Denies any abdominal pain, dizziness Review of Systems Review of Systems: All systems reviewed & are unremarkable except as noted in Subjective Physical Exam Physical Exam: Physical Exam: Vitals signs as noted above General Appearance:Obese, no apparent distress Head: normocephalic, Atraumatic Eyes: normal inspection, EOMI Neck: supple, Trachea midline Respiratory/Chest: Decreased breath sounds, CTA, No accessory muscle use Cardiovascular: S1, S2, No murmur Abdomen/GI:Soft, Non tender, Bowel sounds present Extremities/Musculoskeletal:normal inspection, Chronic LE edema Neurologic/Psych:AAOX3, grossly no focal neurological deficits Skin: normal color, warm Results & Data Results & Data Vital Signs (Past 12 Hours) Vital Signs Pulse Pulse Resp BP BP Pulse Ox Pulse Ox 11/15/23 15:29 76 11/15/23 14:42 96 11/15/23 14:36 11/15/23 13:00 77 18 128/67 96 11/15/23 09:34 98 H 20 95 11/15/23 09:23 76 16 134/62 94 11/15/23 09:06 76 12 95 11/15/23 08:00 77 20 95 11/15/23 08:00 96 11/15/23 07:18 84 22 133/81 94 11/15/23 07:18 94 11/15/23 07:18 85 11/15/23 07:01 78 12 94 11/15/23 07:01 133/81 11/15/23 07:00 82 21 90 11/15/23 06:31 75 16 93 11/15/23 06:31 134/64 11/15/23 06:16 74 21 134/64 95 11/15/23 05:30 75 15 183/87 H 94 11/15/23 05:00 79 13 115/63 97 11/15/23 04:30 85 20 139/77 97 11/15/23 04:22 78 11/15/23 04:00 71 16 138/66 97 O2 Del Method O2 Del Method O2 Flow Rate O2 Flow Rate FiO2 11/15/23 15:29 11/15/23 14:42 Nasal Cannula 2 11/15/23 14:36 Nasal Cannula 2 11/15/23 13:00 Room Air 11/15/23 09:34 Room Air 21 11/15/23 09:23 11/15/23 09:06 11/15/23 08:00 11/15/23 08:00 Room Air 11/15/23 07:18 Room Air 11/15/23 07:18 Room Air 11/15/23 07:18 11/15/23 07:01 11/15/23 07:01 11/15/23 07:00 11/15/23 06:31 11/15/23 06:31 11/15/23 06:16 11/15/23 05:30 Room Air 11/15/23 05:00 Nasal Cannula 2 11/15/23 04:30 Nasal Cannula 2 11/15/23 04:22 11/15/23 04:00 Nasal Cannula 2 Laboratory Results Short CBC 11/15/23 Range/Units 00:20 WBC 7.17 (4.8-10.8) K/ul Hgb 13.1 (12.0-16.0) g/dl Hct 39.9 (37.0-47.0) % Plt Count 222 (130-400) K/uL BMP 11/15/23 00:20 Sodium 138 Potassium 3.2 L Chloride 99 Carbon Dioxide 30 BUN 17 Creatinine 1.13 Glucose 88 Calcium 8.7 Liver Function 11/15/23 Range/Units 00:20 Total Bilirubin 0.5 (0.2-1.0) mg/dl AST 15 (13-39) U/L ALT 13 (7-52) U/L Alkaline Phosphatase 106 H (34-104) U/L Albumin 3.9 (3.4-5.0) gm/dl
[2023-11-15] MEDS ORDERED: PNEUMOCOCCAL VACCINE (PCV20) 20-VAL CONJ-DIP CRM/PF 0.5 ML SYR IM ONE (17:38)
[2023-11-15] MEDS: PROMETHAZINE HCL 12.5 MG in SODIUM CHLORIDE 0.9% 50 ML IV PRN (18:14)
[2023-11-15] MEDS: traZODone HCL 50 MG TAB PO SCH (20:12)
[2023-11-16] MEDS: PROMETHAZINE HCL 12.5 MG in SODIUM CHLORIDE 0.9% 50 ML IV PRN ×2 (02:42→10:40)
[2023-11-16 06:31] LABS: Basophils # (auto) 0.03 K/uL (0.00-0.20); Basophils % (auto) 0.6 %; Eosinophils # (auto) 0.18 K/uL (0.00-0.50); Eosinophils % (auto) 3.6 %; Hematocrit (blood only) 37.5 % (37.0-47.0); Hemoglobin 12.1 g/dl (12.0-16.0); Immature Granulocytes # (auto) 0.06 K/uL (0.01-0.20); Immature Granulocytes % (auto) 1.2 %; Lymphocytes # (auto) 1.04 K/uL (1.20-3.40); Lymphocytes % (auto) 20.5 %; Mean Corpuscular Hgb Conc 32.3 g/dL (32.0-36.0); Mean Corpuscular Volume 96.2 fL (80.0-100.0); Mean Platelet Volume 10.1 fL (9.4-12.4); Monocytes # (auto) 0.82 K/uL (0.11-0.59); Monocytes % (auto) 16.2 %; Neutrophils # (auto) 2.94 K/uL (1.40-6.50); Neutrophils % (auto) 57.9 %; Platelet Count 182 K/uL (130-400); RDW Coefficient of Variation 14.1 % (11.5-14.5); RDW Standard Deviation 49.8 fL (36.4-46.3); White Blood Count 5.07 K/ul (4.8-10.8)
[2023-11-16 07:02] LABS: Calcium 8.5 mg/dl (8.6-10.3); Magnesium 2.2 mg/dl (1.7-2.4); Potassium 3.8 mmol/L (3.5-5.1)
[2023-11-16] MEDS: IPRATROPIUM BROMIDE NEB SOLN 0.02% 2.5 ML VIAL INH SCH ×4 (07:04→19:52)
[2023-11-16] MEDS: LEVALBUTEROL 1.25 MG/3 ML NEB NEB SCH ×4 (07:05→19:52)
[2023-11-16 07:07] LABS: BUN Creatinine Ratio 12.3 (10-20); Creatinine Clr Calc Pharmacy 63.8 ml/min; Est GFR (African American) 62.9 ml/min; Est GFR (Non-African American) 54.3 ml/min
[2023-11-16] MEDS: rOPINIRole HCL 2 MG TABLET PO SCH ×2 (08:10→20:29)
[2023-11-16] MEDS: guaiFENesin/DEXTROM SYRUP 200MG/20MG 10ML UDC PO PRN ×2 (08:10→20:28)
[2023-11-16] MEDS: DOCUSATE SODIUM 100 MG CAP PO SCH ×2 (08:10→20:28)
[2023-11-16] MEDS: ASPIRIN 81 MG ECTAB PO SCH (08:11)
[2023-11-16] MEDS: ATORVASTATIN 10 MG TAB PO SCH (08:11)
[2023-11-16] MEDS: METOPROLOL SUCC 25MG EXT REL TAB PO SCH (08:11)
[2023-11-16] MEDS: LOSARTAN POTASSIUM 25 MG TAB PO SCH (08:12)
[2023-11-16] MEDS: TORSEMIDE 10 MG TAB PO SCH (08:12)
[2023-11-16] MEDS: CYANOCOBALAMIN (B-12) 500 MCG TABLET PO SCH (08:12)
[2023-11-16] MEDS: ENOXAPARIN INJ 40 MG/0.4 ML SYR SQ SCH (08:12)
[2023-11-16] MEDS: FLUTICASONE PROPIONATE NA SPR 16 GM BTL SCH (08:13)
[2023-11-16] MEDS: SENNA 8.6 MG TAB PO SCH (08:17)
[2023-11-16] MEDS: POTASSIUM CHLORIDE CRTAB 20 MEQ TABCR PO SCH ×2 (08:17→20:29)
[2023-11-16] MEDS ORDERED: ALUMINUM/MAGNESIUM/SIMETH (MAALOX MAX) 30 ML UDC PO PRN (11:44)
[2023-11-16] MEDS ORDERED: CHLORASEPTIC (PHENOL) 1.4% SOLN 180 ML BTL MT PRN (11:44)
[2023-11-16] MEDS: predniSONE 20 MG TAB PO SCH (12:25)
[2023-11-16] MEDS: LORATADINE 10 MG TAB PO SCH (12:25)
[2023-11-16] MEDS ORDERED: ONDANSETRON INJ 2 MG/ML 2 ML VIAL IV PRN (14:57)
[2023-11-16] MEDS: PROMETHAZINE HCL 6.25 MG in SODIUM CHLORIDE 0.9% 50 ML IV PRN (16:57)
--- NOTE | 2023-11-16 18:24 | Hospitalist Progress Note ---
Date of Service November 16, 2023 Assessment & Plan (1) Shortness of breath: Plan: RSV infection Acute on chronic diastolic heart failure--POA Hypoxia secondary to above --CXR:Stable cardiomegaly. Pulmonary vascular congestion. --Venous Doppler:No DVT within the visualized right or left lower extremity. --ECHO February 2023: Normal left ventricular wall thickness. No regional wall motion abnormality. EF 65 to 70%. Grade 1 diastolic dysfunction. No significant valvular pathology. Received IV Lasix Continue supplemental oxygen as able Continue torsemide Continue nebs, antitussives as needed Monitor volume status closely We will recheck chest x-ray tomorrow Started on low-dose prednisone Added flutter Hypokalemia secondary to diuretic Rx Monitor and replete electrolytes as needed Chronic Leg swelling Venous Doppler showed no signs of DVT Diuresis as above Paroxysmal atrial fibrillation Continue metoprolol Not on anticoagulation due to hemorrhoidal bleed as per records Hypertension hyperlipidemia Continue home medications Monitor BP Nocturnal hypoxemia severe STEFANY Continue CPAP HS H/O Cerebral aneurysm S/P surgery Fibromyalgia Continue home medications Morbid obesity BMI 42 DVT Px: Lovenox SQ Code Status Full code Admission and Anticipated Discharge Date Admission Date: November 15, 2023 Subjective Patient is seen and examined at bedside Reports nausea, vomiting Less dyspnea today Still has significant cough Also reports dizziness intermittently Denies any chest pain, abdominal pain, diarrhea No other complaints Review of Systems Review of Systems: All systems reviewed & are unremarkable except as noted in Subjective Physical Exam Physical Exam: Physical Exam: Vitals signs as noted above General Appearance:Obese, no apparent distress Head: normocephalic, Atraumatic Eyes: normal inspection, EOMI Neck: supple, Trachea midline Respiratory/Chest: Decreased breath sounds, CTA, No accessory muscle use Cardiovascular: S1, S2, No murmur Abdomen/GI:Soft, Non tender, Bowel sounds present Extremities/Musculoskeletal:normal inspection, Chronic LE edema Neurologic/Psych:AAOX3, grossly no focal neurological deficits Skin: normal color, warm Results & Data Results & Data Vital Signs (Past 12 Hours) Vital Signs Temp Pulse Pulse Resp BP Pulse Ox O2 Del Method 11/16/23 17:08 Room Air 11/16/23 15:42 73 17 97 Nasal Cannula 11/16/23 15:11 76 11/16/23 15:03 36.9 C 74 18 119/67 91 Room Air 01/12/24 13:00 81 11/16/23 13:00 Room Air 11/16/23 11:51 89 18 98 Nasal CPAP 11/16/23 11:20 36.9 C 74 21 135/72 92 Room Air 11/16/23 09:00 Room Air 11/16/23 08:00 36.9 C 81 21 115/68 94 Room Air 11/16/23 07:25 67 11/16/23 07:06 73 18 96 Nasal CPAP O2 Flow Rate 11/16/23 17:08 11/16/23 15:42 2 11/16/23 15:11 11/16/23 15:03 11/16/23 13:00 11/16/23 13:00 11/16/23 11:51 2 11/16/23 11:20 11/16/23 09:00 11/16/23 08:00 11/16/23 07:25 11/16/23 07:06 2 Laboratory Results Short CBC 11/16/23 Range/Units 06:01 WBC 5.07 (4.8-10.8) K/ul Hgb 12.1 (12.0-16.0) g/dl Hct 37.5 (37.0-47.0) % Plt Count 182 (130-400) K/uL BMP 11/16/23 06:01 Sodium 139 Potassium 3.8 Chloride 103 Carbon Dioxide 32 BUN 13 Creatinine 1.06 Glucose 89 Calcium 8.5 L
[2023-11-16] MEDS: traZODone HCL 50 MG TAB PO SCH (20:29)
[2023-11-17] MEDS: LEVALBUTEROL 1.25 MG/3 ML NEB NEB SCH ×4 (07:02→19:46)
[2023-11-17] MEDS: IPRATROPIUM BROMIDE NEB SOLN 0.02% 2.5 ML VIAL INH SCH ×4 (07:02→19:46)
--- NOTE | 2023-11-17 07:18 | XRay Report ---
SINGLE VIEW CHEST CLINICAL HISTORY: Congestive heart failure FINDINGS: An AP, portable, upright chest radiograph is compared to study dated 11/15/2023 and correlat ed with chest CT dated 02/16/2023. The heart is enlarged noting atherosclerotic calcification of the t horacic aorta. There is mild pulmonary vascular congestion. Chronic interstitial thickening is simila r to previous. Atelectasis is noted at the lung bases. No airspace consolidation or large pleural eff usion is identified. No pneumothorax is seen. The bony thorax is grossly intact. A left shoulder arth roplasty is in place. Advanced arthritic change is seen in the right shoulder. Spondylosis is noted i n the thoracic spine. IMPRESSION: Cardiomegaly with mild pulmonary vascular congestion. This is similar to 11/15/2023. ACT 112: Negative or not required by law. Electronically signed by: Sam Connolly M.D. 11/17/2023 7:17 AM
[2023-11-17 08:18] LABS: BUN Creatinine Ratio 16.8 (10-20); Calcium 9.1 mg/dl (8.6-10.3); Creatinine Clr Calc Pharmacy 59.5 ml/min; Est GFR (African American) 58.2 ml/min; Est GFR (Non-African American) 50.3 ml/min; Magnesium 2.2 mg/dl (1.7-2.4); Potassium 3.5 mmol/L (3.5-5.1)
[2023-11-17] MEDS: rOPINIRole HCL 2 MG TABLET PO SCH ×2 (09:02→20:56)
[2023-11-17] MEDS: CYANOCOBALAMIN (B-12) 500 MCG TABLET PO SCH (09:02)
[2023-11-17] MEDS: ASPIRIN 81 MG ECTAB PO SCH (09:03)
[2023-11-17] MEDS: SENNA 8.6 MG TAB PO SCH (09:03)
[2023-11-17] MEDS: LOSARTAN POTASSIUM 25 MG TAB PO SCH (09:03)
[2023-11-17] MEDS: predniSONE 20 MG TAB PO SCH (09:03)
[2023-11-17] MEDS: METOPROLOL SUCC 25MG EXT REL TAB PO SCH (09:04)
[2023-11-17] MEDS: TORSEMIDE 10 MG TAB PO SCH (09:04)
[2023-11-17] MEDS: ATORVASTATIN 10 MG TAB PO SCH (09:04)
[2023-11-17] MEDS: LORATADINE 10 MG TAB PO SCH (09:04)
[2023-11-17] MEDS: FLUTICASONE PROPIONATE NA SPR 16 GM BTL SCH (09:05)
[2023-11-17] MEDS: ENOXAPARIN INJ 40 MG/0.4 ML SYR SQ SCH (09:05)
[2023-11-17] MEDS: DOCUSATE SODIUM 100 MG CAP PO SCH ×2 (09:05→20:56)
[2023-11-17] MEDS: guaiFENesin/DEXTROM SYRUP 200MG/20MG 10ML UDC PO PRN (09:05)
[2023-11-17] MEDS: PROMETHAZINE HCL 6.25 MG in SODIUM CHLORIDE 0.9% 50 ML IV PRN ×2 (09:14→20:57)
[2023-11-17] MEDS: POTASSIUM CHLORIDE CRTAB 20 MEQ TABCR PO SCH ×2 (10:44→20:54)
[2023-11-17] MEDS: oxyCODONE HCL IR 5 MG TAB (IMMEDIATE RELEASE) PO PRN ×2 (10:44→20:55)
--- NOTE | 2023-11-17 12:19 | CT Scan Report ---
CT SCAN OF THE CHEST WITHOUT IV CONTRAST CLINICAL HISTORY: Right-sided pleuritic chest pain. COMPARISON STUDY: Chest CT dated 02/16/2023. Chest x-ray dated 11/17/2023. TECHNIQUE: CT scan of the thorax was performed from the thoracic inlet to the upper abdomen. Images are reviewed in the axial, sagittal, and coronal planes. IV contrast was not administered for this ex amination as per the referring clinician. A dose lowering technique was utilized adhering to the evelin Moore. There is streak artifact from a left shoulder arthroplasty. CT DOSE: 759.28 mGy.cm FINDINGS: Thyroid: Imaged portions of the thyroid gland are normal in size and attenuation. Thoracic aorta: There is atherosclerotic calcification of the thoracic aorta, which is normal in carmelita alina and demonstrates standard 3-vessel arch anatomy. Heart: The heart is mildly enlarged and without pericardial effusion. There are coronary artery calci fications. Lungs and pleural spaces: There is no airspace consolidation or pleural effusion. Scarring/atelectasi s is noted at the lung bases. Minimal secretions are noted in the trachea. There are scattered calcif ied granulomas. Mediastinum: There is no mediastinal lymphadenopathy. Megan: Not well assessed without IV contrast. Axillae: There is no axillary lymphadenopathy. Upper abdomen: A small hiatal hernia is noted. Partially visualized upper abdominal viscera is within normal limits. Skeletal structures: The skeletal structures are osteopenic. No lytic or blastic bony lesions are see n. A left shoulder arthroplasty is in place. Advanced arthritic change is seen in the right shoulder. Spondylosis is noted in the thoracic spine. IMPRESSION: No acute cardiopulmonary abnormality is identified. ACT 112: Negative or not required by law. Electronically signed by: Sam Connolly M.D. 11/17/2023 12:17 PM
[2023-11-17] MEDS ORDERED: tiZANidine HCL 4 MG TABLET PO ONE (13:15)
[2023-11-17] MEDS ORDERED: HYDROcodone/HOMATROPINE SYRUP 5MG/1.5MG 5ML UDP PO PRN (17:07)
--- NOTE | 2023-11-17 17:07 | Hospitalist Progress Note ---
Date of Service November 17, 2023 Assessment & Plan (1) Shortness of breath: Plan: RSV infection Acute on chronic diastolic heart failure--POA Hypoxia secondary to above --CXR:Stable cardiomegaly. Pulmonary vascular congestion. --Venous Doppler:No DVT within the visualized right or left lower extremity. --ECHO February 2023: Normal left ventricular wall thickness. No regional wall motion abnormality. EF 65 to 70%. Grade 1 diastolic dysfunction. No significant valvular pathology. Received IV Lasix Continue supplemental oxygen as able Continue torsemide--increased to 20 mg twice daily Continue nebs, antitussives as needed Monitor volume status closely Started on low-dose prednisone Added flutter CT chest today showed no acute process Given a dose of Zanaflex for likely musculoskeletal pain from coughing Hypokalemia secondary to diuretic Rx Monitor and replete electrolytes as needed Chronic Leg swelling Venous Doppler showed no signs of DVT Diuresis as above Paroxysmal atrial fibrillation Continue metoprolol Not on anticoagulation due to hemorrhoidal bleed as per records Hypertension hyperlipidemia Continue home medications Monitor BP Nocturnal hypoxemia severe STEFANY Continue CPAP HS H/O Cerebral aneurysm S/P surgery Fibromyalgia Continue home medications Morbid obesity BMI 42 DVT Px: Lovenox SQ Code Status Full code Admission and Anticipated Discharge Date Admission Date: November 15, 2023 Subjective Patient is seen and examined at bedside Less cough, dyspnea today Reported right thoracic pain this morning No other complaints Persistent nausea no vomiting today Denies any chest pain, abdominal pain, diarrhea Review of Systems Review of Systems: All systems reviewed & are unremarkable except as noted in Subjective Physical Exam Physical Exam: Physical Exam: Vitals signs as noted above General Appearance:Obese, no apparent distress Head: normocephalic, Atraumatic Eyes: normal inspection, EOMI Neck: supple, Trachea midline Respiratory/Chest: Decreased breath sounds, CTA, No accessory muscle use Cardiovascular: S1, S2, No murmur Abdomen/GI:Soft, Non tender, Bowel sounds present Extremities/Musculoskeletal:normal inspection, Chronic LE edema Neurologic/Psych:AAOX3, grossly no focal neurological deficits Skin: normal color, warm Results & Data Results & Data Vital Signs (Past 12 Hours) Vital Signs Temp Pulse Pulse Resp BP Pulse Ox O2 Del Method 11/17/23 15:10 36.5 C 78 18 97/63 L 93 Room Air 11/17/23 14:00 71 11/17/23 11:45 36.6 C 74 20 122/72 95 Room Air 11/17/23 10:50 67 20 95 Room Air, CPAP 11/17/23 07:54 36.7 C 66 18 117/71 93 Room Air 11/17/23 07:40 78 18 94 Room Air 11/17/23 07:00 63 O2 Flow Rate 11/17/23 15:10 11/17/23 14:00 11/17/23 11:45 11/17/23 10:50 11/17/23 07:54 11/17/23 07:40 2 11/17/23 07:[address] [facility] 11/17/23 06:56 Sodium 139 Potassium 3.5 Chloride 102 Carbon Dioxide 30 BUN 19 Creatinine 1.13 Glucose 79 Calcium 9.1
[2023-11-17] MEDS: traZODone HCL 50 MG TAB PO SCH (20:55)
[2023-11-17] MEDS ORDERED: TORSEMIDE 10 MG TAB PO SCH (21:00)
[2023-11-18] MEDS: LEVALBUTEROL 1.25 MG/3 ML NEB NEB SCH ×3 (07:01→15:02)
[2023-11-18] MEDS: IPRATROPIUM BROMIDE NEB SOLN 0.02% 2.5 ML VIAL INH SCH ×3 (07:02→15:02)
[2023-11-18 07:25] LABS: Hematocrit (blood only) 39.2 % (37.0-47.0); Hemoglobin 13.2 g/dl (12.0-16.0); Mean Corpuscular Hemoglobin 31.4 pg (25.0-34.0); Mean Corpuscular Hgb Conc 33.7 g/dL (32.0-36.0); Mean Corpuscular Volume 93.1 fL (80.0-100.0); Mean Platelet Volume 10.1 fL (9.4-12.4); Platelet Count 228 K/uL (130-400); RDW Coefficient of Variation 14.1 % (11.5-14.5); RDW Standard Deviation 48.1 fL (36.4-46.3); Red Blood Count 4.21 M/uL (4.20-5.40); White Blood Count 7.03 K/ul (4.8-10.8)
[2023-11-18 07:43] LABS: BUN Creatinine Ratio 22.1 (10-20); Calcium 9.2 mg/dl (8.6-10.3); Creatinine Clr Calc Pharmacy 49.9 ml/min; Est GFR (African American) 48.7 ml/min; Potassium 4.1 mmol/L (3.5-5.1)
[2023-11-18] MEDS ORDERED: TORSEMIDE 10 MG TAB PO SCH (09:00)
[2023-11-18] MEDS: ENOXAPARIN INJ 40 MG/0.4 ML SYR SQ SCH (09:33)
[2023-11-18] MEDS: METOPROLOL SUCC 25MG EXT REL TAB PO SCH (09:33)
[2023-11-18] MEDS: FLUTICASONE PROPIONATE NA SPR 16 GM BTL SCH (09:33)
[2023-11-18] MEDS: LORATADINE 10 MG TAB PO SCH (09:33)
[2023-11-18] MEDS: ASPIRIN 81 MG ECTAB PO SCH (09:33)
[2023-11-18] MEDS: ATORVASTATIN 10 MG TAB PO SCH (09:34)
[2023-11-18] MEDS: CYANOCOBALAMIN (B-12) 500 MCG TABLET PO SCH (09:34)
[2023-11-18] MEDS: POTASSIUM CHLORIDE CRTAB 20 MEQ TABCR PO SCH (09:35)
[2023-11-18] MEDS: predniSONE 20 MG TAB PO SCH (09:35)
[2023-11-18] MEDS: DOCUSATE SODIUM 100 MG CAP PO SCH (09:35)
[2023-11-18] MEDS: rOPINIRole HCL 2 MG TABLET PO SCH (09:36)
[2023-11-18] MEDS: SENNA 8.6 MG TAB PO SCH (09:36)
--- NOTE | 2023-11-18 12:37 | Hospitalist Progress Note ---
Date of Service November 18, 2023 Assessment & Plan (1) Shortness of breath: Plan: RSV infection Acute on chronic diastolic heart failure--POA Hypoxia secondary to above --CXR:Stable cardiomegaly. Pulmonary vascular congestion. --Venous Doppler:No DVT within the visualized right or left lower extremity. --ECHO February 2023: Normal left ventricular wall thickness. No regional wall motion abnormality. EF 65 to 70%. Grade 1 diastolic dysfunction. No significant valvular pathology. Received IV Lasix Continue torsemide--increased to 20 mg twice daily Continue nebs, antitussives as needed Monitor volume status closely Started on low-dose prednisone Added flutter CT chest on 11/17/23 showed no acute process Saturating well on room air Clinically improved Plan to discharged home today Hypokalemia secondary to diuretic Rx Monitor and replete electrolytes as needed Chronic Leg swelling Venous Doppler showed no signs of DVT Diuresis as above Paroxysmal atrial fibrillation Continue metoprolol Not on anticoagulation due to hemorrhoidal bleed as per records Hypertension hyperlipidemia Continue home medications Monitor BP Nocturnal hypoxemia severe STEFANY Continue CPAP HS H/O Cerebral aneurysm S/P surgery Fibromyalgia Continue home medications Morbid obesity BMI 42 DVT Px: Lovenox SQ Code Status Full code Disposition Home Admission and Anticipated Discharge Date Admission Date: November 15, 2023 Subjective Patient is seen and examined at bedside States feeling a lot better today No new complaints Cough continues to improve No significant dyspnea Denies any chest pain, abdominal pain, diarrhea Review of Systems Review of Systems: All systems reviewed & are unremarkable except as noted in Subjective Physical Exam Physical Exam: Physical Exam: Vitals signs as noted above General Appearance:Obese, no apparent distress Head: normocephalic, Atraumatic Eyes: normal inspection, EOMI Neck: supple, Trachea midline Respiratory/Chest: Decreased breath sounds, CTA, No accessory muscle use Cardiovascular: S1, S2, No murmur Abdomen/GI:Soft, Non tender, Bowel sounds present Extremities/Musculoskeletal:normal inspection, Chronic LE edema Neurologic/Psych:AAOX3, grossly no focal neurological deficits Skin: normal color, warm Results & Data Results & Data Vital Signs (Past 12 Hours) Vital Signs Temp Pulse Resp BP Pulse Ox O2 Del Method 11/18/23 11:35 36.3 C L 71 18 137/69 94 Room Air 11/18/23 11:08 78 20 94 Room Air 11/18/23 07:52 36.8 C 74 18 103/57 L 93 Room Air 11/18/23 07:10 76 20 95 Room Air 11/18/23 03:10 36.5 C 68 18 106/69 96 CPAP Laboratory Results Short CBC 11/18/23 Range/Units 06:47 WBC 7.03 (4.8-10.8) K/ul Hgb 13.2 (12.0-16.0) g/dl Hct 39.2 (37.0-47.0) % Plt Count 228 (130-400) K/uL BMP 11/18/23 06:47 Sodium 139 Potassium 4.1 Chloride 102 Carbon Dioxide 31 BUN 29 H Creatinine 1.31 H Glucose 73 Calcium 9.2
--- NOTE | 2023-11-18 13:22 | Discharge Summary ---
Date of Service November 18, 2023 Admission HPI Per Admitting Provider History obtained from patient and records. Medical history significant for chronic diastolic heart failure (EF 65 to 70%, TTE 2022), PAF as per records (not on anticoagulation secondary to hemorrhoidal bleed as per records), hypertension, hyperlipidemia, nocturnal hypoxemia/severe STEFANY on CPAP, history of cerebral aneurysm status post surgery, chronic lymphedema, past history DVT status post Coumadin, NAFLD, PMR/giant cell arteritis as per records, anxiety/mood disorder, fibromyalgia as per records, past tobacco abuse Last confinement February 2023 for chest pain/CHF. 3 weeks history of cough symptoms productive of clear sputum, congestion and chest pain from coughing. Not sure about sick contacts. Has not received COVID-19 vaccination. Worsening shortness of breath and bilateral leg swelling associated with 3 pound weight gain in the last week. Patient instructed by ob nurse to take extra diuretic. Patient compliant with home CPAP machine. Patient consulted ER for worsening symptoms. IV Lasix administered at the ER. Patient currently feels much better and feels she is back to to her baseline after diuresis at the ER. 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 Admission Exam Per Admitting Provider GENERAL: Slightly uncomfortable, anxious, morbidly obese, no respiratory distress SKIN: Normal color, warm HEENT: Bespectacled, pink palpebral conjunctivae, no ptosis, dry buccal mucosa NECK : Supple, short neck, no tenderness CHEST : Decreased breath sounds, no tenderness HEART : RRR, no obvious murmurs ABDOMEN: Some distention, nontender EXTREMITIES : Bilateral LE swelling, no LE tenderness, no other conspicuous deformities noted NEUROLOGIC : Coherent, no facial asymmetry, no other gross focality Principal Diagnosis RSV infection Acute on chronic diastolic heart failure Hypoxia Discharge Data Allergies Allergy/AdvReac Type Severity Reaction Status Date / Time adhesive Allergy Intermediate "Tape" -- Verified 11/15/23 00:50 blisters azithromycin Allergy Intermediate Rash Verified 11/15/23 00:50 cyclobenzaprine Allergy Intermediate RASH Verified 11/15/23 00:50 duloxetine [From Cymbalta] Allergy Intermediate RASH/NAUSEA Verified 11/15/23 00:50 /VOMITING sulindac Allergy Intermediate HIVES Verified 11/15/23 00:50 amoxicillin Allergy Unknown PER [facility] Verified 11/15/23 00:50 MED LIST acetaminophen [From Tylenol] AdvReac Severe restless Verified 11/15/23 00:50 legs hydrochlorothiazide AdvReac Intermediate COUGH Verified 11/15/23 00:50 hydrocodone AdvReac Intermediate AGGRAVATES Verified 11/15/23 00:50 RLS lisinopril AdvReac Intermediate Cough Verified 11/15/23 00:50 oxycodone AdvReac Intermediate AGGRAVATES Verified 11/15/23 00:50 RLS ropinirole [From Requip] AdvReac Intermediate Tachycardia Verified 11/15/23 00:50 tetanus toxoid, adsorbed AdvReac Intermediate IRRITABILIT Verified 11/15/23 00:50 Y triamterene AdvReac Intermediate COUGH Verified 11/15/23 00:50 Consultations 11/15/23 06:04 ED Decision to Admit Stat Procedures Performed Laboratory Results WBC 7.03 K/ul (4.8-10.8) 11/18/23 06:47 RBC 4.21 M/uL (4.20-5.40) 11/18/23 06:47 Hgb 13.2 g/dl (12.0-16.0) 11/18/23 06:47 Hct 39.2 % (37.0-47.0) 11/18/23 06:47 MCV 93.1 fL (80.0-100.0) 11/18/23 06:47 MCH 31.4 pg (25.0-34.0) 11/18/23 06:47 MCHC 33.7 g/dL (32.0-36.0) 11/18/23 06:47 RDW Std Deviation 48.1 fL (36.4-46.3) H 11/18/23 06:47 RDW Coeff of Anurag 14.1 % (11.5-14.5) 11/18/23 06:47 Plt Count 228 K/uL (130-400) 11/18/23 06:47 MPV 10.1 fL (9.4-12.4) 11/18/23 06:47 Immature Gran % (Auto) 1.2 % 11/16/23 06:01 Neut % (Auto) 57.9 % 11/16/23 06:01 Lymph % (Auto) 20.5 % 11/16/23 06:01 [place] % (Auto) 16.2 % 11/16/23 06:01 Eos % (Auto) 3.6 % 11/16/23 06:01 Baso % (Auto) 0.6 % 11/16/23 06:01 Neut # (Auto) 2.94 K/uL (1.40-6.50) 11/16/23 06:01 Lymph # (Auto) 1.04 K/uL (1.20-3.40) L 11/16/23 06:01 [place] # (Auto) 0.82 K/uL (0.11-0.59) H 11/16/23 06:01 Eos # (Auto) 0.18 K/uL (0.00-0.50) 11/16/23 06:01 Baso # (Auto) 0.03 K/uL (0.00-0.20) 11/16/23 06:01 Immature Gran # (Auto) 0.06 K/uL (0.01-0.20) 11/16/23 06:01 PT 10.9 Seconds (9.0-12.0) 11/15/23 00:20 INR 1.0 (0.9-1.1) 11/15/23 00:20 Sodium 139 mmol/L (136-145) 11/18/23 06:47 Potassium 4.1 mmol/L (3.5-5.1) 11/18/23 06:47 Chloride 102 mmol/L (98-107) 11/18/23 06:47 Carbon Dioxide 31 mmol/L (21-32) 11/18/23 06:47 Anion Gap 6 (3-11) 11/18/23 06:47 BUN 29 mg/dl (6-23) H 11/18/23 06:47 Creatinine 1.31 mg/dl (0.6-1.2) H 11/18/23 06:47 Est Cr Clr Drug Dosing 49.9 ml/min 11/18/23 06:47 Est GFR ( Amer) 48.7 ml/min 11/18/23 06:47 Est GFR (Non-Af Amer) 42.0 ml/min 11/18/23 06:47 BUN/Creatinine Ratio 22.1 (10-20) H 11/18/23 06:47 Glucose 73 mg/dl (70-99(Fasting)) 11/18/23 06:47 Calcium 9.2 mg/dl (8.6-10.3) 11/18/23 06:47 Magnesium 2.2 mg/dl (1.7-2.4) 11/17/23 06:56 Total Bilirubin 0.5 mg/dl (0.2-1.0) 11/15/23 00:20 AST 15 U/L (13-39) 11/15/23 00:20 ALT 13 U/L (7-52) 11/15/23 00:20 Alkaline Phosphatase 106 U/L (34-104) H 11/15/23 00:20 Troponin I High Sens 4.6 pg/ml (0-14) 11/15/23 00:20 B-Natriuretic Peptide 20 pg/ml (0-100) 11/15/23 00:20 Total Protein 7.3 gm/dl (6.0-8.3) 11/15/23 00:20 Albumin 3.9 gm/dl (3.4-5.0) 11/15/23 00:20 Globulin 3.4 gm/dl (2.5-4.0) 11/15/23 00:20 Albumin/Globulin Ratio 1.1 (0.9-2) 11/15/23 00:20 TSH 5.675 uIu/ml (0.300-4.500) H 11/15/23 00:20 Free T4 0.98 ng/dl (0.61-1.60) 11/15/23 00:20 Adenovirus (PCR) Not Detected (NotDetected) 11/15/23 00:20 B. pertussis DNA (PCR) Not Detected (NotDetected) 11/15/23 00:20 B.parapertussis DNA PCR Not Detected (NotDetected) 11/15/23 00:20 C. pneumoniae DNA (PCR) Not Detected (NotDetected) 11/15/23 00:20 Coronavirus OC43 (PCR) Not Detected (NotDetected) 11/15/23 00:20 Coronavirus HKU1 (PCR) Not Detected (NotDetected) 11/15/23 00:20 Coronavirus 229E (PCR) Not Detected (NotDetected) 11/15/23 00:20 SARS-CoV-2 (PCR) Not Detected (NotDetected) 11/15/23 00:20 Coronavirus NL63 (PCR) Not Detected (NotDetected) 11/15/23 00:20 Human Metapneumovir PCR Not Detected (NotDetected) 11/15/23 00:20 Influenza Type A (PCR) Not Detected (NotDetected) 11/15/23 00:20 Influenza Type B (PCR) Not Detected (NotDetected) 11/15/23 00:20 M. pneumoniae (PCR) Not Detected (NotDetected) 11/15/23 00:20 Parainfluenza 1 (PCR) Not Detected (NotDetected) 11/15/23 00:20 Parainfluenza 2 (PCR) Not Detected (NotDetected) 11/15/23 00:20 Parainfluenza 3 (PCR) Not Detected (NotDetected) 11/15/23 00:20 Parainfluenza 4 (PCR) Not Detected (NotDetected) 11/15/23 00:20 RSV (PCR) DETECTED (NotDetected) A* 11/15/23 00:20 Entero/Rhino (PCR) Not Detected (NotDetected) 11/15/23 00:20 Impressions Venous Doppler Study 11/15/23 06:17 BILATERAL LOWER EXTREMITY VENOUS DOPPLER HISTORY: leg swelling COMPARISON STUDY: None. FINDINGS: There is normal compressibility, flow, and augmentation within the visualized bilateral lower extremity deep venous systems. Of note, the left posterior tibial vein was not clearly identified on this study. IMPRESSION: No DVT within the visualized right or left lower extremity. ACT 112: Negative or not required by law. Electronically signed by: Guicho Vera M.D. 11/15/2023 9:14 AM Chest X-Ray 11/17/23 07:00 SINGLE VIEW CHEST CLINICAL HISTORY: Congestive heart failure FINDINGS: An AP, portable, upright chest radiograph is compared to study dated 11/15/2023 and correlated with chest CT dated 02/16/2023. The heart is enlarged noting atherosclerotic calcification of the thoracic aorta. There is mild pulmonary vascular congestion. Chronic interstitial thickening is similar to previous. Atelectasis is noted at the lung bases. No airspace consolidation or large pleural effusion is identified. No pneumothorax is seen. The bony thorax is grossly intact. A left shoulder arthroplasty is in place. Advanced arthritic change is seen in the right shoulder. Spondylosis is noted in the thoracic spine. IMPRESSION: Cardiomegaly with mild pulmonary vascular congestion. This is similar to 11/15/2023. ACT 112: Negative or not required by law. Electronically signed by: Sam Connolly M.D. 11/17/2023 7:[address] 11/17/23 10:56 CT SCAN OF THE CHEST WITHOUT IV CONTRAST CLINICAL HISTORY: Right-sided pleuritic chest pain. COMPARISON STUDY: Chest CT dated 02/16/2023. Chest x-ray dated 11/17/2023. TECHNIQUE: CT scan of the thorax was performed from the thoracic inlet to the upper abdomen. Images are reviewed in the axial, sagittal, and coronal planes. IV contrast was not administered for this examination as per the referring clinician. A dose lowering technique was utilized adhering to the principles of ALARA. There is streak artifact from a left shoulder arthroplasty. CT DOSE: 759.28 mGy.cm FINDINGS: Thyroid: Imaged portions of the thyroid gland are normal in size and attenuation. Thoracic aorta: There is atherosclerotic calcification of the thoracic aorta, which is normal in caliber and demonstrates standard 3-vessel arch anatomy. Heart: The heart is mildly enlarged and without pericardial effusion. There are coronary artery calcifications. Lungs and pleural spaces: There is no airspace consolidation or pleural effusion. Scarring/atelectasis is noted at the lung bases. Minimal secretions are noted in the trachea. There are scattered calcified granulomas. Mediastinum: There is no mediastinal lymphadenopathy. Megan: Not well assessed without IV contrast. Axillae: There is no axillary lymphadenopathy. Upper abdomen: A small hiatal hernia is noted. Partially visualized upper abdominal viscera is within normal limits. Skeletal structures: The skeletal structures are osteopenic. No lytic or blastic bony lesions are seen. A left shoulder arthroplasty is in place. Advanced arthritic change is seen in the right shoulder. Spondylosis is noted in the thoracic spine. IMPRESSION: No acute cardiopulmonary abnormality is identified. ACT 112: Negative or not required by law. Electronically signed by: Sam Connolly M.D. 11/17/2023 12:17 PM Ordered Studies 11/15/23 06:17 US venous doppler LE BI Stat 11/17/23 10:56 CT chest diagnostic wo con Urgent Hospital Course (1) Shortness of breath: RSV infection Acute on chronic diastolic heart failure--POA Hypoxia secondary to above --CXR:Stable cardiomegaly. Pulmonary vascular congestion. --Venous Doppler:No DVT within the visualized right or left lower extremity. --ECHO February 2023: Normal left ventricular wall thickness. No regional wall motion abnormality. EF 65 to 70%. Grade 1 diastolic dysfunction. No significant valvular pathology. Received IV Lasix Continue torsemide--increased to 20 mg twice daily Continue nebs, antitussives as needed Monitor volume status closely Started on low-dose prednisone Added flutter CT chest on 11/17/23 showed no acute process Saturating well on room air Clinically improved Plan to discharged home today Hypokalemia secondary to diuretic Rx Monitor and replete electrolytes as needed Chronic Leg swelling Venous Doppler showed no signs of DVT Diuresis as above Paroxysmal atrial fibrillation Continue metoprolol Not on anticoagulation due to hemorrhoidal bleed as per records Hypertension hyperlipidemia Continue home medications Monitor BP Nocturnal hypoxemia severe STEFANY Continue CPAP HS H/O Cerebral aneurysm S/P surgery Fibromyalgia Continue home medications Morbid obesity BMI 42 DVT Px: Lovenox SQ Code Status Full code Disposition Home Total Time Total Time Spent Total Time Spent (In Minutes): 56 minutes Discharge Plan Discharge Items Patient Disposition: Home - Home Health Services Reason For Visit: HTN URG, SOB Discharge Diagnosis: RSV infection Acute on chronic diastolic heart failure Hypoxia Activity: Resume your previous activity Exercise/Sports: Wait until after follow-up appointment Non-emergency contact: Primary Care Provider Call non-emergency contact if: you have any medication questions, your symptoms worsen, your pain is concerning for you and you have a fever Follow-up/Referrals: Sotero Pizano MD [Primary Care Provider] - Diet: Heart Healthy Addtl Attending Provider Instructions: Follow-up with your primary care physician Dr. Pizano in 1 week -- Complete the prednisone course as prescribed. Seek immediate medical attention if your symptoms reoccur or worsen Please take all medications as instructed on discharge list below. Please call if you have any questions or problems. You can reach a [facility] hospitalist on duty at [facility] 24 hours a day by calling [phone] Pending Studies at Discharge: No Stand-Alone Forms: My [facility], Smoking Cessation Medications and DC Order Prescriptions: New prednisone 20 mg Tablet 20 mg PO DAILY Qty: 5 0RF loratadine [Wal-itin] 10 mg Tablet 10 mg PO QAM Qty: 5 0RF hydrocodone-homatropine [Hydromet] 5-1.5 mg/5 mL Syrup 5 ml PO Q8H PRN (Reason: cough) 7 Days Qty: 125 0RF budesonide 90 mcg/actuation aerosol powdr breath activated 1 inh inhalation BID Qty: 1 0RF Continued aspirin 81 mg tablet,delayed release (DR/EC) 81 mg PO QAM fluticasone propionate [Flonase Allergy Relief] 50 mcg/actuation [place],Suspension 2 spray INTRANASAL QAM losartan [Cozaar] 25 mg Tablet 12.5 mg PO QAM ergocalciferol (vitamin D2) [Vitamin D2] 1,250 mcg (50,000 unit) Capsule 1,250 mcg PO MONTHLY docusate sodium [Colace] 100 mg Capsule 100 mg PO BID ropinirole 2 mg Tablet 4 mg PO BID Rx Instructions: PER PT--TAKES 4 MG QAM & HS. PER [facility]--TAKE 2 MG TID. atorvastatin 10 mg Tablet 10 mg PO QAM ipratropium-albuterol 0.5 mg-3 mg(2.5 mg base)/3 mL Solution For Nebulization 3 ml INHALATION TID sennosides [senna] 8.6 mg Tablet 8.6 mg PO DAILY ondansetron HCl [Zofran] 4 mg Tablet 4 mg PO Q8H PRN (Reason: NAUSEA/VOMITING) cyanocobalamin (vitamin B-12) [Vitamin B-12] 1,000 mcg Tablet 1,000 mcg PO DAILY meclizine 12.5 mg tablet 12.5 mg PO TID PRN (Reason: Dizziness) potassium chloride 20 mEq tablet,ER particles/crystals 20 meq PO BID trazodone 150 mg tablet 150 mg PO HS metoprolol succinate 25 mg tablet extended release 24 hr 25 mg PO DAILY albuterol sulfate [Proventil HFA] 90 mcg/actuation Hfa Aerosol Inhaler 2 puff INHALATION Q4H PRN (Reason: CONGESTION/COUGH/WHEEZING) cholecalciferol (vitamin D3) [Vitamin D3] 25 mcg (1,000 unit) Capsule 50 mcg PO DAILY triamcinolone acetonide 0.05 % Ointment 1 applic TOPICAL BID PRN (Reason: Skin Irritation) magnesium oxide 400 mg magnesium Tablet 400 mg PO DAILY torsemide 10 mg tablet See Rx Instructions .ROUTE .COMPLEX Rx Instructions: PER PT--ONLY TAKES 10 MG QAM. PER [facility]--TAKE 20 MG QAM, THEN 10 MG QPM. Discharge Orders: Discharge Order (Routine); Ordered 11/18/23 Ordered By: Westley Rhodes Admission Data Admit Date/Time: 11/15/23 06:23 Attending Provider: Westley Rhodes Admit Provider: Jose Morgan Primary Care Provider: Sotero Pizano Other Providers: Jose Morgan
[2023-11-19] MEDS ORDERED: LOSARTAN POTASSIUM 25 MG TAB PO SCH (09:00)
== END 2023-11-18 16:40 | disposition home health service (06) | DRG 291 ==
LOC: ED 23:41 → EDINP 11-15 06:23 → 2S 11-15 07:03

== ENCOUNTER 2025-07-31 15:52 | Inpatient (IN) ==
[2025-07-31 16:34] LABS: Hematocrit (blood only) 35.0 % (37.0-47.0); Hemoglobin 10.9 g/dl (12.0-16.0); Immature Granulocytes # (auto) 0.10 K/uL (0.01-0.20); Immature Granulocytes % (auto) 0.9 %; Mean Corpuscular Hemoglobin 28.2 pg (25.0-34.0); Mean Corpuscular Volume 90.4 fL (80.0-100.0); Platelet Count 229 K/uL (130-400); RDW Standard Deviation 61.8 fL (36.4-46.3); Red Blood Count 3.87 M/uL (4.20-5.40); White Blood Count 11.27 K/ul (4.8-10.8)
[2025-07-31 16:58] LABS: Alanine Aminotransferase 10.0 U/L (7-52); Albumin Globulin Ratio 1.3 (0.9-2); Albumin Level 3.9 gm/dl (3.4-5.0); Alkaline Phosphatase 79.0 U/L (34-104); Anion Gap 5.0 (3-11); Bilirubin,Total 0.4 mg/dl (0.2-1.0); Blood Urea Nitrogen 21.0 mg/dl (6-23); Calcium 8.9 mg/dl (8.6-10.3); Carbon Dioxide 35.0 mmol/L (21-32); Chloride 97.0 mmol/L (98-107); Creatinine Clr Calc Pharmacy 47.6 ml/min; Globulin 3.0 gm/dl (2.5-4.0); Glucose 80.0 mg/dl (70-99(Fasting)); Lipase 6.0 U/L (11-82); Magnesium 2.4 mg/dl (1.7-2.4); Potassium 3.9 mmol/L (3.5-5.1); Sodium 137.0 mmol/L (136-145); Total Protein 6.9 gm/dl (6.0-8.3)
[2025-07-31] MEDS: OPTIRAY 320 100ml IV ONE (17:32)
[2025-07-31] MEDS: SODIUM CHLORIDE 0.9% 500 ML IV STA (18:08)
--- NOTE | 2025-07-31 18:11 | Emergency Department Note ---
Impression & Plan LLQ abdominal pain, Nausea, Constipation, Acute UTI, S/P hemorrhoidectomy ED Provider Note NAME: MARLENE GARSIA AGE: 70 SEX: F : 1955 ARRIVES VIA: Ambulance INFORMANT: [Patient] ED PROVIDER(S): [Sam Marquez MD] CHIEF COMPLAINT: Abdominal pain HISTORY OF PRESENT ILLNESS: The patient is a 70-year-old female who she states that she had hemorrhoid surgery done 2 days ago at [facility]. She states that today, she was dizzy, somewhat short of breath and noticed left-sided abdominal pain. She has had nausea without vomiting. No fever. No cough or congestion. She does have some urinary burning. The patient states that she has not had a bowel movement for several days. Of note, the patient has gained 5 pounds in a very short timeframe, she believes she may be fluid overloaded. She has a history of CHF. PMHx/PSHx/Social Hx: See Below PHYSICAL EXAM: GENERAL: Patient is in no acute distress. HEENT: No acute trauma, normocephalic atraumatic, mucous membranes moist, no nasal congestion. NECK: No stridor, no adenopathy, no meningismus, trachea is midline. LUNGS: Clear to auscultation bilaterally when listening anterior, no wheeze, no rhonchi, breath sounds equal. HEART: Without murmurs gallops or rubs, regular rate and rhythm. Heart tones distant. ABDOMEN: Soft, diffusely mildly tender but significantly tender in the left lower quadrant. Obese. EXTREMITIES: No cyanosis, full range of motion of all the joints without pain or difficulty. NEUROLOGIC: Oriented x 3, no acute motor or sensory deficits, no focal weakness. SKIN: No jaundice, no diaphoresis. DIFFERENTIAL DIAGNOSIS: Diverticulitis, abscess, intra-abdominal bleeding, UTI, fluid overload/CHF, among others. EMERGENCY DEPARTMENT PROCEDURES: MEDICAL DECISION MAKING: There is a mild leukocytosis, this could be consistent with her complaints of nausea versus, infection. There was a subtle anemia, the patient carries a history of anemia. There was a normal platelet count. No bandemia. Creatinine was a bit elevated but, this is a baseline finding. No electrolyte abnormality in need of emergent correction. No concerning liver enzyme elevation. No evidence for pancreatitis. BNP was not elevated making CHF unlikely. Urinalysis was suspicious for infection. Chest x-ray does not show pneumonia or CHF. ECG showed a sinus rhythm, no acute ischemia. Abdominal and pelvis CT shows some constipation. There was suspicion for potential urinary infection with some inflammation across the urinary system. No urinary obstruction. On exam, patient complained of pain in the left lower quadrant. She was nauseated. She was not febrile. The patient received IV morphine for pain, IV Zofran for nausea. She was given a 500 cc saline bolus. She was given IV cefepime as empiric antibiotic coverage. The patient presents after having hemorrhoid surgery 2 days ago. She appears constipated, she is not moving her bowels, she has a leukocytosis, she is nauseated and, may have a UTI. Given the circumstances, I do think a hospital stay is warranted. With regards to the concerns for CHF, she does not appear to be in heart failure. I did speak with case management, the on-call hospitalist was consulted. I discussed all findings with the patient. I did speak with general surgery however, there is no acute surgical process by CT imaging. No emergent surgical intervention required. Prior/Outside records/notes reviewed: None ECG per my interpretation: ECG shows a sinus rhythm with a first-degree AV block. The rate is 70. There is no acute ST elevation, no PVCs. The QTc is 432. Continuous Cardiac Monitoring per my interpretation: An order was placed for continuous cardiac monitoring. The monitor shows a rate of 61 with sinus rhythm with a first-degree block. Imaging/x-ray results per my interpretation: Chest x-ray does not show CHF, some mild cardiomegaly was seen. No pneumonia Chronic Medical/Social conditions affecting care: None Care/Management discussed with: Case management, the on-call hospitalist. General surgery-Dr. Leander Joseph's service Level of care consideration(s): After review of the information above and other included data: --I believe the patient requires escalation of care to admission DISPOSITION: Admission Past Med/Surg History Problem List (Updated 07/31/25 @ 23:24 by Sam Marquez MD) S/P hemorrhoidectomy (Acute) Acute UTI (Acute) Constipation (Acute) Nausea (Acute) LLQ abdominal pain (Acute) Abdominal pain Ambulatory dysfunction Failure of outpatient treatment (Acute) Hypokalemia (Acute) Respiratory syncytial virus (RSV) (Acute) Dyspnea (Acute) CKD (chronic kidney disease), stage III Depression Nausea Rectal bleeding Sinus bradycardia Paroxysmal atrial fibrillation Shortness of breath (Acute) Chest pain (Acute) Heart failure, diastolic, with acute decompensation (Acute) Diastolic CHF, chronic (Chronic) Hypertension (Chronic) Migraine headache (Chronic) Restless leg syndrome (Chronic) Degenerative joint disease (DJD) of lumbar spine (Chronic) Atrial fibrillation (Chronic) Sleep apnea (Chronic) Nonalcoholic fatty liver disease (Chronic) Internal hemorrhoids (Chronic) Status post hysterectomy (Chronic) Status post section (Chronic) Status post appendectomy (Chronic) Encounter for pre-operative examination Iron deficiency anemia Lower extremity edema (Acute) Medical History Dyspnea nebulizer/inhaler daily and prn On home oxygen therapy 2L via CPAP at HS History of COVID-19 diagnosed 11/2021--mild symptoms, no symptoms now Restless leg Morbid obesity with BMI of 45.0-49.9, adult Osteoarthritis Fibromyalgia Hiatal hernia History of basal cell carcinoma Anxiety History of migraine Brain aneurysm s/p repair (2018) CHF (congestive heart failure) follows with [facility] cardio Sleep apnea CPAP with 2L at HS Atrial fibrillation dx 2016--intermittent--on metoprolol--follows with Dr. Shipman Hypertension Surgical History History of esophagogastroduodenoscopy (EGD) last 2019 @ [facility] H/O cerebral aneurysm repair 2018 - [facility] - follows [facility] neurosurgery Slow to wake up after anesthesia Awareness under anesthesia History of eyelid surgery History of tonsillectomy History of benign breast biopsy History of section History of total abdominal hysterectomy and bilateral salpingo-oophorectomy History of exploratory laparotomy History of colonoscopy last 2019 @ [facility] History of basal cell carcinoma (BCC) excision Family History Other Diabetes Heart disease Hypertension No family history of adverse response to anesthesia Social History Smoking Status: Never smoker Second Hand Exposure: No; Do You Dip or Chew Tobacco: No; Hx Alcohol Use: No Hx Substance Use: No Preferred Language: Lao Communication Ability: Effective Legal Paraprofessional Required: No Beliefs That Will Affect Care: None Current Living Situation: Spouse Feels Safe at Home: Yes Assistive Devices: Cane and CPAP Allergies Allergies Allergy/AdvReac Type Severity Reaction Status Date / Time adhesive Allergy Intermediate "Tape" -- Verified 04/07/25 12:14 blisters azithromycin Allergy Intermediate Rash Verified 04/07/25 12:14 cyclobenzaprine Allergy Intermediate RASH Verified 04/07/25 12:14 duloxetine [From Cymbalta] Allergy Intermediate RASH/NAUSEA Verified 04/07/25 12:14 /VOMITING sulindac Allergy Intermediate HIVES Verified 04/07/25 12:14 amoxicillin Allergy Unknown PER [facility] Verified 04/07/25 12:14 MED LIST acetaminophen [From Tylenol] AdvReac Severe restless Verified 04/07/25 12:14 legs hydrochlorothiazide AdvReac Intermediate COUGH Verified 04/07/25 12:14 hydrocodone AdvReac Intermediate AGGRAVATES Verified 04/07/25 12:14 RLS lisinopril AdvReac Intermediate Cough Verified 04/07/25 12:14 oxycodone AdvReac Intermediate AGGRAVATES Verified 04/07/25 12:14 RLS ropinirole [From Requip] AdvReac Intermediate Tachycardia Verified 04/07/25 12:14 tetanus toxoid, adsorbed AdvReac Intermediate IRRITABILIT Verified 04/07/25 12:14 Y triamterene AdvReac Intermediate COUGH Verified 04/07/25 12:14 Home Meds Home Medications Medication Instructions Recorded Confirmed albuterol sulfate 90 mcg/actuation 2 puff inhalation Q4H PRN 07/31/25 07/31/25 aerosol inhaler Shortness Of Breath Or Wheezing aspirin 81 mg tablet,delayed 81 mg PO DAILY 07/31/25 07/31/25 release atorvastatin 10 mg tablet 10 mg PO DAILY 07/31/25 07/31/25 cholecalciferol (vitamin D3) 25 25 mcg PO DAILY 07/31/25 07/31/25 mcg (1,000 unit) capsule (Vitamin D3) cyanocobalamin (vitamin B-12) 1,000 mcg PO DAILY 07/31/25 07/31/25 1,000 mcg tablet fluticasone propionate 50 2 spray intranasal DAILY 07/31/25 07/31/25 mcg/actuation nasal spray,suspension ipratropium 0.5 mg-albuterol 3 mg 3 ml inhalation BID 07/31/25 07/31/25 (2.5 mg base)/3 mL nebulization soln magnesium oxide 400 mg PO DAILY 07/31/25 07/31/25 meclizine 12.5 mg tablet 12.5 mg PO TID PRN Vertigo 07/31/25 07/31/25 metoprolol succinate 25 mg 25 mg PO DAILY 07/31/25 07/31/25 tablet,extended release 24 hr oxycodone 5 mg tablet 5 mg PO Q6H PRN Pain 07/31/25 07/31/25 potassium chloride 10 mEq 10 meq PO DAILY 07/31/25 07/31/25 capsule,extended release ropinirole 2 mg tablet 2 mg PO BID 07/31/25 07/31/25 spironolactone 25 mg tablet 12.5 mg PO DAILY 07/31/25 07/31/25 torsemide 20 mg tablet 40 mg PO BID 07/31/25 07/31/25 trazodone 150 mg tablet 300 mg PO HS 07/31/25 07/31/25 Results & Data (ED) Vital Signs Vital Signs - 24 hr 07/31/25 15:57 07/31/25 16:00 07/31/25 16:11 Temperature 37.0 C Temperature Source Oral Pulse Rate 71 72 Pulse Rate [Apical] Pulse Rate from SpO2 Sensor 71 Respiratory Rate 16 18 Respiratory Effort / Characteristics Non-Labored Spontaneous Respiratory Depth Normal Respiratory Pattern Regular Blood Pressure 103/73 103/73 Blood Pressure [Left Arm] Blood Pressure Mean 83 83 Blood Pressure Mean [Left Arm] Pulse Oximetry 94 93 94 Oxygen Delivery Method Room Air Nasal Cannula Oxygen Flow Rate 2 Sepsis Recent Fever Within 48 Hours No Sepsis New/Unexplained Change in Mental Status No Sepsis Action Taken by Nursing No Action Required 07/31/25 16:19 07/31/25 16:36 07/31/25 17:21 Temperature Temperature Source Pulse Rate 81 80 71 Pulse Rate [Apical] Pulse Rate from SpO2 Sensor 72 70 Respiratory Rate 24 18 Respiratory Effort / Characteristics Respiratory Depth Respiratory Pattern Blood Pressure 104/55 L 99/49 L Blood Pressure [Left Arm] Blood Pressure Mean 71 65 Blood Pressure Mean [Left Arm] Pulse Oximetry 96 98 Oxygen Delivery Method Oxygen Flow Rate Sepsis Recent Fever Within 48 Hours Sepsis New/Unexplained Change in Mental Status Sepsis Action Taken by Nursing 07/31/25 18:21 07/31/25 18:33 07/31/25 18:36 Temperature Temperature Source Pulse Rate 69 68 Pulse Rate [Apical] Pulse Rate from SpO2 Sensor 69 68 Respiratory Rate 15 16 Respiratory Effort / Characteristics Respiratory Depth Respiratory Pattern Blood Pressure 110/65 Blood Pressure [Left Arm] Blood Pressure Mean 81 Blood Pressure Mean [Left Arm] Pulse Oximetry 96 94 Oxygen Delivery Method Oxygen Flow Rate Sepsis Recent Fever Within 48 Hours Sepsis New/Unexplained Change in Mental Status Sepsis Action Taken by Nursing 07/31/25 19:00 07/31/25 19:03 07/31/25 19:03 Temperature Temperature Source Pulse Rate 90 Pulse Rate [Apical] Pulse Rate from SpO2 Sensor 79 Respiratory Rate 38 H Respiratory Effort / Characteristics Respiratory Depth Respiratory Pattern Blood Pressure 126/63 126/63 Blood Pressure [Left Arm] Blood Pressure Mean 70 70 Blood Pressure Mean [Left Arm] Pulse Oximetry 91 Oxygen Delivery Method Oxygen Flow Rate Sepsis Recent Fever Within 48 Hours Sepsis New/Unexplained Change in Mental Status Sepsis Action Taken by Nursing 07/31/25 19:03 07/31/25 19:30 07/31/25 19:45 Temperature Temperature Source Pulse Rate 68 68 Pulse Rate [Apical] Pulse Rate from SpO2 Sensor 67 76 Respiratory Rate 17 13 Respiratory Effort / Characteristics Respiratory Depth Respiratory Pattern Blood Pressure 126/63 Blood Pressure [Left Arm] Blood Pressure Mean 70 Blood Pressure Mean [Left Arm] Pulse Oximetry 96 94 Oxygen Delivery Method Oxygen Flow Rate Sepsis Recent Fever Within 48 Hours Sepsis New/Unexplained Change in Mental Status Sepsis Action Taken by Nursing 07/31/25 19:51 07/31/25 20:00 07/31/25 20:01 Temperature Temperature Source Pulse Rate 76 Pulse Rate [Apical] 83 Pulse Rate from SpO2 Sensor Respiratory Rate 20 Respiratory Effort / Characteristics Respiratory Depth Respiratory Pattern Blood Pressure 107/71 Blood Pressure [Left Arm] 110/59 L Blood Pressure Mean 78 Blood Pressure Mean [Left Arm] 76 Pulse Oximetry 94 Oxygen Delivery Method Nasal Cannula Oxygen Flow Rate 2 Sepsis Recent Fever Within 48 Hours Sepsis New/Unexplained Change in Mental Status Sepsis Action Taken by Nursing 07/31/25 20:01 07/31/25 20:01 07/31/25 20:03 Temperature Temperature Source Pulse Rate 64 Pulse Rate [Apical] Pulse Rate from SpO2 Sensor 69 Respiratory Rate 13 Respiratory Effort / Characteristics Respiratory Depth Respiratory Pattern Blood Pressure 107/71 107/71 Blood Pressure [Left Arm] Blood Pressure Mean 78 78 Blood Pressure Mean [Left Arm] Pulse Oximetry 91 Oxygen Delivery Method Oxygen Flow Rate Sepsis Recent Fever Within 48 Hours Sepsis New/Unexplained Change in Mental Status Sepsis Action Taken by Nursing 07/31/25 20:15 07/31/25 20:24 07/31/25 20:36 Temperature Temperature Source Pulse Rate 74 62 Pulse Rate [Apical] Pulse Rate from SpO2 Sensor 72 67 Respiratory Rate 18 17 Respiratory Effort / Characteristics Respiratory Depth Respiratory Pattern Blood Pressure 110/59 L Blood Pressure [Left Arm] Blood Pressure Mean 83 Blood Pressure Mean [Left Arm] Pulse Oximetry 94 94 Oxygen Delivery Method Oxygen Flow Rate Sepsis Recent Fever Within 48 Hours Sepsis New/Unexplained Change in Mental Status Sepsis Action Taken by Nursing 07/31/25 20:51 07/31/25 21:00 07/31/25 21:18 Temperature Temperature Source Pulse Rate 70 68 65 Pulse Rate [Apical] Pulse Rate from SpO2 Sensor 77 68 66 Respiratory Rate 24 18 18 Respiratory Effort / Characteristics Respiratory Depth Respiratory Pattern Blood Pressure Blood Pressure [Left Arm] Blood Pressure Mean Blood Pressure Mean [Left Arm] Pulse Oximetry 94 93 94 Oxygen Delivery Method Oxygen Flow Rate Sepsis Recent Fever Within 48 Hours Sepsis New/Unexplained Change in Mental Status Sepsis Action Taken by Nursing 07/31/25 21:21 07/31/25 21:30 07/31/25 21:30 Temperature Temperature Source Pulse Rate 67 62 Pulse Rate [Apical] Pulse Rate from SpO2 Sensor 67 63 Respiratory Rate 16 18 Respiratory Effort / Characteristics Respiratory Depth Respiratory Pattern Blood Pressure 92/54 L Blood Pressure [Left Arm] Blood Pressure Mean 62 Blood Pressure Mean [Left Arm] Pulse Oximetry 95 95 Oxygen Delivery Method Oxygen Flow Rate Sepsis Recent Fever Within 48 Hours Sepsis New/Unexplained Change in Mental Status Sepsis Action Taken by Nursing 07/31/25 21:30 07/31/25 22:00 07/31/25 22:03 Temperature Temperature Source Pulse Rate 61 Pulse Rate [Apical] Pulse Rate from SpO2 Sensor 62 Respiratory Rate 15 Respiratory Effort / Characteristics Respiratory Depth Respiratory Pattern Blood Pressure 92/54 L 106/61 Blood Pressure [Left Arm] Blood Pressure Mean 62 74 Blood Pressure Mean [Left Arm] Pulse Oximetry 96 Oxygen Delivery Method Oxygen Flow Rate Sepsis Recent Fever Within 48 Hours Sepsis New/Unexplained Change in Mental Status Sepsis Action Taken by Nursing 07/31/25 22:18 07/31/25 22:27 07/31/25 22:27 Temperature Temperature Source Pulse Rate 65 Pulse Rate [Apical] Pulse Rate from SpO2 Sensor 65 Respiratory Rate 15 Respiratory Effort / Characteristics Respiratory Depth Respiratory Pattern Blood Pressure 108/54 L 108/54 L Blood Pressure [Left Arm] Blood Pressure Mean 74 74 Blood Pressure Mean [Left Arm] Pulse Oximetry 96 Oxygen Delivery Method Nasal Cannula Oxygen Flow Rate 2 Sepsis Recent Fever Within 48 Hours Sepsis New/Unexplained Change in Mental Status Sepsis Action Taken by Nursing 07/31/25 22:30 07/31/25 22:45 Temperature Temperature Source Pulse Rate 62 61 Pulse Rate [Apical] Pulse Rate from SpO2 Sensor 62 60 Respiratory Rate 15 14 Respiratory Effort / Characteristics Respiratory Depth Respiratory Pattern Blood Pressure Blood Pressure [Left Arm] Blood Pressure Mean Blood Pressure Mean [Left Arm] Pulse Oximetry 93 94 Oxygen Delivery Method Oxygen Flow Rate Sepsis Recent Fever Within 48 Hours Sepsis New/Unexplained Change in Mental Status Sepsis Action Taken by Jail Medications Current Medication List: was personally reviewed by me Laboratory Data Attestation: I reviewed the patient's lab results. 07/31/25 16:14 07/31/25 16:14 Lab Results 07/31/25 07/31/25 07/31/25 Range/Units 16:14 18:24 Unknown WBC 11.27 H (4.8-10.8) K/ul RBC 3.87 L (4.20-5.40) M/uL Hgb 10.9 L (12.0-16.0) g/dl Hct 35.0 L (37.0-47.0) % MCV 90.4 (80.0-100.0) fL MCH 28.2 (25.0-34.0) pg MCHC 31.1 L (32.0-36.0) g/dL RDW Std Deviation 61.8 H (36.4-46.3) fL RDW Coeff of Anurag 18.6 H (11.5-14.5) % Plt Count 229 (130-400) K/uL MPV 9.8 (9.4-12.4) fL Immature Gran % (Auto) 0.9 % Neut % (Auto) 76.2 % Lymph % (Auto) 12.8 % [place] % (Auto) 9.3 % Eos % (Auto) 0.4 % Baso % (Auto) 0.4 % Neut # (Auto) 8.58 H (1.40-6.50) K/uL Lymph # (Auto) 1.44 (1.20-3.40) K/uL [place] # (Auto) 1.05 H (0.11-0.59) K/uL Eos # (Auto) 0.05 (0.00-0.50) K/uL Baso # (Auto) 0.05 (0.00-0.20) K/uL Immature Gran # (Auto) 0.10 (0.01-0.20) K/uL Sodium 137 (136-145) mmol/L Potassium 3.9 (3.5-5.1) mmol/L Chloride 97 L (98-107) mmol/L Carbon Dioxide 35 H (21-32) mmol/L Anion Gap 5 (3-11) BUN 21 (6-23) mg/dl Creatinine 1.41 H (0.6-1.2) mg/dl Est Cr Clr Drug Dosing 47.6 ml/min eGFR 40.38 BUN/Creatinine Ratio 14.9 (10-20) Glucose 80 (70-99(Fasting)) mg/dl Calcium 8.9 (8.6-10.3) mg/dl Magnesium 2.4 (1.7-2.4) mg/dl Total Bilirubin 0.4 (0.2-1.0) mg/dl AST 13 (13-39) U/L ALT 10 (7-52) U/L Alkaline Phosphatase 79 (34-104) U/L B-Natriuretic Peptide 55 (0-100) pg/ml Total Protein 6.9 (6.0-8.3) gm/dl Albumin 3.9 (3.4-5.0) gm/dl Globulin 3.0 (2.5-4.0) gm/dl Albumin/Globulin Ratio 1.3 (0.9-2) Lipase 6 L (11-82) U/L Urine Color Yellow Urine Appearance Clear (Clear) Urine pH 8.0 H (4.5-7.5) Ur Specific [place] 1.008 (1.000-1.030) Urine Protein Negative (Negative) Urine Glucose (UA) Negative (Negative) Urine Ketones Negative (Negative) Urine Blood 2+ H (Negative) Urine Nitrite Negative (Negative) Urine Bilirubin Negative (Negative) Urine Urobilinogen Negative (Negative) Ur Leukocyte Esterase 2+ H (Negative) Urine WBC (Auto) 0-5 (0-5) /hpf Urine RBC (Auto) 0-2 (0-2) /hpf U Hyaline Cast (Auto) 0-2 (0-2) /lpf U Epithel Cells (Auto) 0-2 (0-2) /hpf Urine Bacteria (Auto) None Seen (None Seen) Urine Comment Administered Medications Discontinued Medications Sodium Chloride (Nss) 500 mls @ 999 mls/hr IV .Q31M STA Stop: 07/31/25 16:41 Last Admin: 07/31/25 18:08 Dose: Not Given Documented By: LEIGH Cefepime HCl (Maxipime 2000mg) 2,000 mg in 20 mls @ 5 mls/min IV NOW STA; Protocol Stop: 07/31/25 19:16 Last Admin: 07/31/25 19:23 Dose: 5 mls/min Documented By: marlo Sodium Chloride (Nss) 500 mls @ 999 mls/hr IV .Q31M ONE Stop: 07/31/25 20:19 Last Admin: 07/31/25 20:21 Dose: 999 mls/hr Documented By: abl Ioversol (Optiray 320 100ml) 94 ml IV ONCE ONE Stop: 07/31/25 17:29 Last Admin: 07/31/25 17:32 Dose: 94 ml Documented By: FRANSISCO Morphine Sulfate (Morphine Sulfate 4 Mg/Ml 1 Ml Carp\\Vial) 4 mg IV NOW STA Stop: 07/31/25 18:06 Last Admin: 07/31/25 18:19 Dose: 4 mg Documented By: MARYANN Morphine Sulfate (Morphine Sulfate 2 Mg/Ml Carp) 2 mg IV NOW STA Stop: 07/31/25 19:45 Last Admin: 07/31/25 20:09 Dose: 2 mg Documented By: marlo Ondansetron HCl (Ondansetron Inj 2 Mg/Ml 2 Ml Vial) 4 mg IV NOW STA Stop: 07/31/25 18:06 Last Admin: 07/31/25 18:19 Dose: 4 mg Documented By: MARYANN Imaging Data Radiologist's Impression: Abdomen/Pelvis CT 07/31/25 16:11 EXAMINATION: CT of the abdomen and pelvis performed after the administration of IV contrast. TECHNIQUE: Helical CT images from the lung bases through the symphysis pubis were obtained with contrast. Coronal and sagittal reformatted images were generated at a workstation for further assessment. Dose reduction techniques were achieved by using automatic exposure control and/or adjustment of mA and/or kV according to patient size and/or use of iterative reconstruction technique. HISTORY: Postsurgery. Abdominal pain. COMPARISON: April 07, 2025. Study report not available at the time of dictation. FINDINGS: Orthotics Prosthetics Assistant film demonstrates degenerative changes of the spine. Lung windows demonstrate mild dependent bibasilar subsegmental ectasis. Soft tissue windows demonstrate small hypodensity of the spleen. This is unchanged when compared to prior exam. This measures 1.4 cm diameter. Extrarenal pelvis on the left. There is prominent renal collecting system and ureter on the right. Prominent ureter on the left. No radiopaque renal collecting system, ureteral or urinary bladder calculi. No appreciated mass. Moderate distended urinary bladder. Mild bilateral perinephric fat stranding. Findings more prominent when compared to prior study. Uterus is absent. Ovaries are not identified. Moderate stool-filled large bowel. No mechanical obstruction. Mild air stool levels proximally. No appreciated wall thickening. Appendix is not identified. No secondary findings of appendiceal disease. Remaining solid and hollow organs of the abdomen and pelvis are within normal limits. No free air or free fluid. Degenerative changes of the spine. Moderate spinal canal and moderate to marked foraminal stenoses multiple levels. Bone windows demonstrate no acute osseous process. IMPRESSION: 1. Nonspecific prominent renal collecting systems, ureters and urinary bladder with mild perinephric fat stranding. No stone, mass or hydronephrosis. Urinary tract infection not entirely excluded. 2. Moderate stool-filled large bowel without mechanical obstruction. 3. Small hypodensity of the spleen. This is not appreciably changed when compared to prior exam. Hemangioma not excluded. Ultrasound be helpful for further characterization. Otherwise no findings to suggest source for patient's symptoms. Please see above for details. Electronically signed by Sal Poe 07-31-2025 8:11 PM Chest X-Ray 07/31/25 16:11 Technique: A frontal view of the chest was obtained Comparison is made to the prior examination dated 04/07/2025 Findings: There are no confluent pulmonary infiltrates. The heart size is at the upper limit of normal. No pleural effusion or pneumothorax is seen. There is no definite pulmonary nodule. No fracture is noted. There is thoracic degenerative disc disease. There is a left shoulder arthroplasty Impression: No active disease Electronically signed by Pierto Bullock 07-31-2025 7:53 PM Discharge Plan Visit Data Chief Complaint: Abdominal Pain ED Provider: Sam Marquez Discharge Problem: LLQ abdominal pain, Nausea, Constipation, Acute UTI, S/P hemorrhoidectomy Patient Disposition: Admitted As Inpatient Condition: Fair Discharge Instructions Interventions: ED Discharge Assessment Last Done: 07/31/25 22:52 Prescriptions Prescriptions: No Action torsemide 20 mg Tablet 40 mg PO BID cyanocobalamin (vitamin B-12) 1,000 mcg Tablet 1,000 mcg PO DAILY meclizine 12.5 mg Tablet 12.5 mg PO TID PRN (Reason: Vertigo) aspirin 81 mg Tablet,Delayed Release (Dr/Ec) 81 mg PO DAILY spironolactone 25 mg Tablet 12.5 mg PO DAILY ropinirole [Requip] 2 mg Tablet 2 mg PO BID metoprolol succinate 25 mg Tablet Extended Release 24 Hr 25 mg PO DAILY albuterol sulfate 90 mcg/actuation Hfa Aerosol Inhaler 2 puff INHALATION Q4H PRN (Reason: Shortness Of Breath Or Wheezing) fluticasone propionate [Flonase] 50 mcg/actuation [place],Suspension 2 spray INTRANASAL DAILY Rx Instructions: administer into each nostril oxycodone 5 mg Tablet 5 mg PO Q6H PRN (Reason: Pain) cholecalciferol (vitamin D3) [Vitamin D3] 25 mcg (1,000 unit) Capsule 25 mcg PO DAILY magnesium oxide 400 mg magnesium Tablet 400 mg PO DAILY potassium chloride 10 mEq Capsule, Extended Release 10 meq PO DAILY ipratropium-albuterol [DuoNeb] 0.5 mg-3 mg(2.5 mg base)/3 mL Solution For Nebulization 3 ml INHALATION BID atorvastatin 10 mg Tablet 10 mg PO DAILY trazodone 150 mg Tablet 300 mg PO HS Discharge Problem: Constipation Qualifiers: Constipation type: unspecified constipation type Qualified Code(s): K59.00 - Constipation, unspecified
[2025-07-31] MEDS: ONDANSETRON INJ 2 MG/ML 2 ML VIAL IV STA (18:19)
[2025-07-31] MEDS: MoRPHine SULFATE 4 MG/ML 1 ML CARP\\VIAL IV STA (18:19)
[2025-07-31 18:44] LABS: Appearance Urine Clear (Clear); Bacteria Urine Automated None Seen (None Seen); Cast Urine Automated 0-2 /lpf (0-2); Epithelial Cell Urine Auto 0-2 /hpf (0-2); Glucose Urine UA Negative (Negative); RBC Urine Automated 0-2 /hpf (0-2); WBC Urine Automated 0-5 /hpf (0-5)
[2025-07-31] MEDS: CEFEPIME 2000MG 2,000 MG/20 ML SYR IV STA (19:23)
[2025-07-31] MEDS ORDERED: MoRPHine SULFATE 2 MG/ML CARP IV PRN (19:44)
--- NOTE | 2025-07-31 19:53 | XRay Report ---
Technique: A frontal view of the chest was obtained Comparison is made to the prior examination dated 04/07/2025 Findings: There are no confluent pulmonary infiltrates. The heart size is at the upper limit of normal. No pleural effusion or pneumothorax is seen. There is no definite pulmonary nodule. No fracture is noted. There is thoracic degenerative disc disease. There is a left shoulder arthroplasty Impression: No active disease Electronically signed by Pietro Bullock 07-31-2025 7:53 PM
[2025-07-31] MEDS: MoRPHine SULFATE 2 MG/ML CARP IV STA (20:09)
--- NOTE | 2025-07-31 20:11 | CT Scan Report ---
EXAMINATION: CT of the abdomen and pelvis performed after the administration of IV contrast. TECHNIQUE: Helical CT images from the lung bases through the symphysis pubis were obtained with contrast. Coronal and sagittal reformatted images were generated at a workstation for further assessment. Dose reduction techniques were achieved by using automatic exposure control and/or adjustment of mA and/or kV according to patient size and/or use of iterative reconstruction technique. HISTORY: Postsurgery. Abdominal pain. COMPARISON: April 07, 2025. Study report not available at the time of dictation. FINDINGS: Director Print film demonstrates degenerative changes of the spine. Lung windows demonstrate mild dependent bibasilar subsegmental ectasis. Soft tissue windows demonstrate small hypodensity of the spleen. This is unchanged when compared to prior exam. This measures 1.4 cm diameter. Extrarenal pelvis on the left. There is prominent renal collecting system and ureter on the right. Prominent ureter on the left. No radiopaque renal collecting system, ureteral or urinary bladder calculi. No appreciated mass. Moderate distended urinary bladder. Mild bilateral perinephric fat stranding. Findings more prominent when compared to prior study. Uterus is absent. Ovaries are not identified. Moderate stool-filled large bowel. No mechanical obstruction. Mild air stool levels proximally. No appreciated wall thickening. Appendix is not identified. No secondary findings of appendiceal disease. Remaining solid and hollow organs of the abdomen and pelvis are within normal limits. No free air or free fluid. Degenerative changes of the spine. Moderate spinal canal and moderate to marked foraminal stenoses multiple levels. Bone windows demonstrate no acute osseous process. IMPRESSION: 1. Nonspecific prominent renal collecting systems, ureters and urinary bladder with mild perinephric fat stranding. No stone, mass or hydronephrosis. Urinary tract infection not entirely excluded. 2. Moderate stool-filled large bowel without mechanical obstruction. 3. Small hypodensity of the spleen. This is not appreciably changed when compared to prior exam. Hemangioma not excluded. Ultrasound be helpful for further characterization. Otherwise no findings to suggest source for patient's symptoms. Please see above for details. Electronically signed by Sal Poe 07-31-2025 8:11 PM
[2025-07-31] MEDS: SODIUM CHLORIDE 0.9% 500 ML IV ONE (20:21)
--- NOTE | 2025-07-31 21:19 | Surgery Consultation ---
Date of Consultation July 31, 2025 Assessment & Plan (1) Abdominal pain: I discussed with the treating emergency room physician and he is having the patient admitted on the hospitalist service. From a surgical perspective the following recommendations are made: I do not appreciate any CT scan findings that would suggest a problem with her recent surgical procedure that would explain her abdominal pain. It does appear as though the patient may have findings consistent with a urinary tract infection and she does have symptomatology that goes along with thisdysuria, urinary frequency, and suprapubic tenderness The treating emergency room physician has initiated antibiotics in form of cefepime and he should continue. Appropriate urine culture has been sent and antibiotics can be tailored based on pending culture results Would recommend providing analgesics Provide antiemetics if needed Follow serial labs Provide IV fluid for hydration Patient notes that following her hemorrhoidectomy she has been prescribed a bowel regimen consisting of Colace, Metamucil, and Senokot. Would recommend continuing patient's bowel regimen as prescribed by her performing surgeon Will continue monitoring the patient clinically with additional recommendations to follow as her clinical course unfolds Addendum (5:00 AM) Patient revisited at bedside. She continues to have lower abdominal pain similar to what was present at time of my initial encounter. She also continues to report dysuria and urinary frequency. She denies any back or flank pain. She has not had any nausea or vomiting. She denies any fevers, shakes, or chills. Will continue with plan as outlined above (2) Abdominal pain: Supervising Physician Co-Signing Physician Notes This case was discussed with the surgical PA History of Present Illness Reason for Consultation: Recent hemorrhoidectomy, abdominal pain History of Present Illness This is a 70-year-old female who presented to [facility] emergency department secondary to recent hemorrhoid surgery. The patient says that she underwent an hemorrhoidectomy at [facility] in [place], [place] by Dr. Jeison Echeverria. She notes that this surgery was 2 days ago. Patient says that she was discharged home the same day as her procedure and was initially doing well. The patient says that earlier this morning she developed some pain across her lower abdomen. When asked to pinpoint the pain she says it is greatest in the suprapubic area and also the left lower quadrant. She has had nausea without emesis. She denies any fevers, shakes, or chills. She says that she was able to eat her morning meal this morning but has not had much of an appetite since. She also notes that she has not had a bowel movement since her procedure but she has passed a few small blood clots since her procedure. She does report she is passing flatus. In addition to the above symptomatology the patient says that she is complaining of dysuria as well as urinary frequency. She has not noted any hematuria. The patient further adds that she has a history of congestive heart failure and feels slightly more short of breath than usual. She also notes that she has gained approximately 5 pounds since her surgery. (She explained that she checks her weight daily due to her history of congestive heart failure and she does take diuretics daily which have been prescribed by her physicians at manage this condition). Since arrival to emergency department she has had labs and imaging which I independent reviewed. The chest x-ray did not show any evidence of pleural effusion or pneumonia. A CT scan of the abdomen pelvis showed the patient had some nonspecific prominence of the renal collecting systems, ureters, and urinary bladder with some mild perinephric fat stranding noted. There is no hydronephrosis or kidney stones noted. Interpreting radiologist could not exclude a urinary tract infection. There is moderate stool burden noted in the large bowel without without evidence of a mechanical obstruction. Labs including CBC were white blood cell count was elevated 11.2. Hemoglobin and hematocrit were 10.9 and 35.0. Platelet count is normal. Chemistry profile showed sodium and potassium were normal her BUN was normal with a slight elevation of her creatinine at 1.4. There is no elevation of her LFTs or lipase. Urinalysis was negative for nitrites and did not have any pyuria but she did have 2+ leukocyte esterase and no bacteria noted on the study. At the time of my interview the patient was resting in bed. She did not appear to be in any distress Allergies Allergy/AdvReac Type Severity Reaction Status Date / Time adhesive Allergy Intermediate "Tape" -- Verified 04/07/25 12:14 blisters azithromycin Allergy Intermediate Rash Verified 04/07/25 12:14 cyclobenzaprine Allergy Intermediate RASH Verified 04/07/25 12:14 duloxetine [From Cymbalta] Allergy Intermediate RASH/NAUSEA Verified 04/07/25 12:14 /VOMITING sulindac Allergy Intermediate HIVES Verified 04/07/25 12:14 amoxicillin Allergy Unknown PER [facility] Verified 04/07/25 12:14 MED LIST acetaminophen [From Tylenol] AdvReac Severe restless Verified 04/07/25 12:14 legs hydrochlorothiazide AdvReac Intermediate COUGH Verified 04/07/25 12:14 hydrocodone AdvReac Intermediate AGGRAVATES Verified 04/07/25 12:14 RLS lisinopril AdvReac Intermediate Cough Verified 04/07/25 12:14 oxycodone AdvReac Intermediate AGGRAVATES Verified 04/07/25 12:14 RLS ropinirole [From Requip] AdvReac Intermediate Tachycardia Verified 04/07/25 12:14 tetanus toxoid, adsorbed AdvReac Intermediate IRRITABILIT Verified 04/07/25 12:14 Y triamterene AdvReac Intermediate COUGH Verified 04/07/25 12:14 Home Medications Medication Instructions Recorded Confirmed Type albuterol sulfate 90 mcg/actuation 2 puff inhalation Q4H PRN 07/31/25 07/31/25 History aerosol inhaler Shortness Of Breath Or Wheezing aspirin 81 mg tablet,delayed 81 mg PO DAILY 07/31/25 07/31/25 History release atorvastatin 10 mg tablet 10 mg PO DAILY 07/31/25 07/31/25 History cholecalciferol (vitamin D3) 25 25 mcg PO DAILY 07/31/25 07/31/25 History mcg (1,000 unit) capsule (Vitamin D3) cyanocobalamin (vitamin B-12) 1,000 mcg PO DAILY 07/31/25 07/31/25 History 1,000 mcg tablet fluticasone propionate 50 2 spray intranasal DAILY 07/31/25 07/31/25 History mcg/actuation nasal spray,suspension ipratropium 0.5 mg-albuterol 3 mg 3 ml inhalation BID 07/31/25 07/31/25 History (2.5 mg base)/3 mL nebulization soln magnesium oxide 400 mg PO DAILY 07/31/25 07/31/25 History meclizine 12.5 mg tablet 12.5 mg PO TID PRN Vertigo 07/31/25 07/31/25 History metoprolol succinate 25 mg 25 mg PO DAILY 07/31/25 07/31/25 History tablet,extended release 24 hr oxycodone 5 mg tablet 5 mg PO Q6H PRN Pain 07/31/25 07/31/25 History potassium chloride 10 mEq 10 meq PO DAILY 07/31/25 07/31/25 History capsule,extended release ropinirole 2 mg tablet 2 mg PO BID 07/31/25 07/31/25 History spironolactone 25 mg tablet 12.5 mg PO DAILY 07/31/25 07/31/25 History torsemide 20 mg tablet 40 mg PO BID 07/31/25 07/31/25 History trazodone 150 mg tablet 300 mg PO HS 07/31/25 07/31/25 History Patient History Medical History Dyspnea nebulizer/inhaler daily and prn On home oxygen therapy 2L via CPAP at History of COVID-19 diagnosed 11/2021--mild symptoms, no symptoms now Restless leg Morbid obesity with BMI of 45.0-49.9, adult Osteoarthritis Fibromyalgia Hiatal hernia History of basal cell carcinoma Anxiety History of migraine Brain aneurysm s/p repair (2017) CHF (congestive heart failure) follows with [facility] cardio Sleep apnea CPAP with 2L at Atrial fibrillation dx 2016--intermittent--on metoprolol--follows with Dr. Shipman Hypertension Surgical History History of esophagogastroduodenoscopy (EGD) last [address] [facility] H/O cerebral aneurysm repair 2017 - [facility] - follows [facility] neurosurgery Slow to wake up after anesthesia Awareness under anesthesia History of eyelid surgery History of tonsillectomy History of benign breast biopsy History of section History of total abdominal hysterectomy and bilateral salpingo-oophorectomy History of exploratory laparotomy History of colonoscopy last [address] 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 Beliefs That Will Affect Care: None Current Living Situation: Spouse Other Information That Helps Us Care for You: No Feels Safe at Home: Yes Assistive Devices: CPAP Review of Systems Review of Systems: All systems reviewed & are unremarkable except as noted in HPI & below Physical Exam Constitutional: WD/WN, vitals as above Eyes: no conjunctival abnormality ENMT: Ears: no hearing impairment and no external ear abnormality Mouth: no oropharynx abnormality Neck: trachea midline Respiratory: normal respiratory effort; no respiratory distress and no labored breathing Cardiovascular: Rate/Rhythm: regular rate and regular rhythm Gastrointestinal (Abdomen): The patient's abdomen is soft without distention or rigidity. There is no rebou nd tenderness or other signs of peritonitis. The patient did have palpation across her lower abdomen which appear to be greatest on my exam in the suprapubic region and to a somewhat lesser degree in the left lower quadrant. Musculoskeletal: No calf tenderness, no pitting edema of the lower extremities bilaterally. There is a small amount of hemosiderin deposition of her shins bilaterally Skin: no rashes Neurologic: moves all extremities Psychiatric: A+Ox3, euthymic affect Results & Data Vital Signs (Past 12 Hours) Vital Signs Temp Pulse Pulse Resp BP BP Pulse Ox 07/31/25 20:00 83 20 110/59 L 94 07/31/25 19:51 76 07/31/25 18:21 69 15 96 07/31/25 17:21 71 18 99/49 L 98 07/31/25 16:36 80 24 104/55 L 96 07/31/25 16:19 81 07/31/25 16:11 94 07/31/25 16:00 72 18 103/73 93 07/31/25 15:57 37.0 C 71 16 103/73 94 O2 Del Method O2 Flow Rate 07/31/25 20:00 Nasal Cannula 2 07/31/25 19:51 07/31/25 18:21 07/31/25 17:21 07/31/25 16:36 07/31/25 16:19 07/31/25 16:11 Nasal Cannula 2 07/31/25 16:00 07/31/25 15:57 Room Air PG Care Time/CCT Total # of Minutes Spent Total Time Spent with Patient: Total time spent is greater than 50% in coordination of care (as documented) at patient's floor/unit and/or counseling patient: Coding Level of Care Code 90530 IN/OBS CONSULT LVL 5,80M Diagnoses Abdominal pain R10.9
[2025-07-31] MEDS ORDERED: HYDROmorphone INJ 0.5 MG/0.5 ML SYR IV PRN (23:30)
[2025-07-31] MEDS ORDERED: ALBUTEROL HFA 8 GM INHALER INH PRN (23:30)
[2025-07-31] MEDS ORDERED: POLYETHYLENE (MIRALAX) 17 GM PACK PO PRN (23:30)
[2025-08-01] MEDS: HYDROmorphone INJ 0.5 MG/0.5 ML SYR IV PRN ×2 (00:24→08:58)
--- NOTE | 2025-08-01 06:17 | History & Physical Report ---
Date of Service July 31, 2025 Assessment & Plan (1) Abdominal pain: Plan: 70-year-old female with past medical history significant for hyperlipidemia, severe obstructive sleep apnea/hypopnea apnea syndrome, paroxysmal atrial fibrillation, gutierrez angioma, hypertension, CKD stage IIIb, chronic diastolic CHF, morbid obesity, nonalcoholic fatty liver disease, generalized osteoarthritis, fibromyalgia, lymphedema both lower extremities, restless leg syndrome, lipodermatosclerosis of both lower extremities, peripheral neuropathy, iron deficiency anemia due to chronic blood loss, aspirin intolerance, panic disorder, history of cerebral aneurysm status post stent assisted coil 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 Patient on last Sunday had hemorrhoidal surgery at [facility]. Since surgery she did not moved her bowels. Patient states she had some blood clots yesterday and today she had some spotting of the blood per rectum. Complaining of burning micturition.. Denies any fevers. Today was having significant lower abdominal pain which prompted her to come to the ER. No nausea. No chest pain or shortness of breath. No cough. No headaches. Since yesterday she also noticed some floaters and blurred vision in the right eye. Hemodynamics are okay. Abdominal pain Recent hemorrhoidectomy CT abdomen pelvis possible UTI Constipation Pain control Appreciate surgery input Constipation Stool softener Will monitor Possible UTI Possible uti on CAT scan Burning micturition But UA was okay Received empiric cefepime in the ER Will continue with Rocephin Will follow urine cultures Right eye blurred visions with floaters Since yesterday() Discussed with the ophthalmology in [place] Dr. Bill Chavez and since phuong shrestha is okay plan for ophthalmology evaluation in a.m. if any changes in vision or ophthalmology not able to see her in the morning to call back [place] again Rechecked the patient few hours hours later. Patient still has right eye floaters and blurred visions but no change from earlier. Obstructive sleep apnea On CPAP nightly with 2 L oxygen Paroxysmal atrial fibrillation On metoprolol succinate Not on anticoagulant due to bleeding per Cardiology notes On aspirin Restless leg syndrome On Requip Chronic diastolic CHF On torsemide and spironolactone with potassium supplement Will monitor for volume overload Hyperlipidemia On statin CKD stage III Baseline creatinine 1.3 Presents with creatinine 1.4 Will follow labs Iron-deficiency anemia due to chronic blood loss Hemoglobin 10.9 Will follow labs DVT prophylaxis SCDs for now Disposition Medical floor Full code. History of Present Illness Chief Complaint: Abdominal pain Primary Care Provider: Sotero Pizano MD 70-year-old female with past medical history significant for hyperlipidemia, severe obstructive sleep apnea/hypopnea apnea syndrome, paroxysmal atrial fibrillation, gutierrez angioma, hypertension, CKD stage IIIb, chronic diastolic CHF, morbid obesity, nonalcoholic fatty liver disease, generalized osteoarthritis, fibromyalgia, lymphedema both lower extremities, restless leg syndrome, lipodermatosclerosis of both lower extremities, peripheral neuropathy, iron deficiency anemia due to chronic blood loss, aspirin intolerance, panic disorder, history of cerebral aneurysm status post stent assisted coil 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 Patient on last Sunday had hemorrhoidal surgery at [facility]. Since surgery she did not moved her bowels. Patient states she had some blood clots yesterday and today she had some spotting of the blood per rectum. Complaining of burning micturition.. Denies any fevers. Today was having significant lower abdominal pain which prompted her to come to the ER. No nausea. No chest pain or shortness of breath. No cough. No headaches. Since yesterday she also noticed some floaters and blurred vision in the right eye. Hemodynamics are okay. Past medical history. As mentioned above Past surgical history. Breast biopsy. . Colonoscopy. EGD. Exploratory of abdomen. Internal hemorrhoidectomy on 07/29/2025. Injection of lumbar spine. Ligation/biopsy of left temporal artery. Left total shoulder arthroplasty. Appendectomy. Removal of ovaries/tubes. Sacroiliac joint inj ection. Total hysterectomy. Vertebral artery catheter placement. Social history. . Quit smoking 2002. Smoked 0.3 pack a day for 25 years. No alcohol use currently. Medical marijuana per epic. Family history. Mother had lung cancer. Diabetes. Hypertension. Father had diverticulitis. Emphysema. Heart disorder. Diverticulitis. Allergies Allergy/AdvReac Type Severity Reaction Status Date / Time adhesive Allergy Intermediate "Tape" -- Verified 04/07/25 12:14 blisters azithromycin Allergy Intermediate Rash Verified 04/07/25 12:14 cyclobenzaprine Allergy Intermediate RASH Verified 04/07/25 12:14 duloxetine [From Cymbalta] Allergy Intermediate RASH/NAUSEA Verified 04/07/25 12:14 /VOMITING sulindac Allergy Intermediate HIVES Verified 04/07/25 12:14 amoxicillin Allergy Unknown PER [facility] Verified 04/07/25 12:14 MED LIST acetaminophen [From Tylenol] AdvReac Severe restless Verified 04/07/25 12:14 legs hydrochlorothiazide AdvReac Intermediate COUGH Verified 04/07/25 12:14 hydrocodone AdvReac Intermediate AGGRAVATES Verified 04/07/25 12:14 RLS lisinopril AdvReac Intermediate Cough Verified 04/07/25 12:14 oxycodone AdvReac Intermediate AGGRAVATES Verified 04/07/25 12:14 RLS ropinirole [From Requip] AdvReac Intermediate Tachycardia Verified 04/07/25 12:14 tetanus toxoid, adsorbed AdvReac Intermediate IRRITABILIT Verified 04/07/25 12:14 Y triamterene AdvReac Intermediate COUGH Verified 04/07/25 12:14 Home Medications Medication Instructions Recorded Confirmed Type albuterol sulfate 90 mcg/actuation 2 puff inhalation Q4H PRN 07/31/25 07/31/25 History aerosol inhaler Shortness Of Breath Or Wheezing aspirin 81 mg tablet,delayed 81 mg PO DAILY 07/31/25 07/31/25 History release atorvastatin 10 mg tablet 10 mg PO DAILY 07/31/25 07/31/25 History cholecalciferol (vitamin D3) 25 25 mcg PO DAILY 07/31/25 07/31/25 History mcg (1,000 unit) capsule (Vitamin D3) cyanocobalamin (vitamin B-12) 1,000 mcg PO DAILY 07/31/25 07/31/25 History 1,000 mcg tablet fluticasone propionate 50 2 spray intranasal DAILY 07/31/25 07/31/25 History mcg/actuation nasal spray,suspension ipratropium 0.5 mg-albuterol 3 mg 3 ml inhalation BID 07/31/25 07/31/25 History (2.5 mg base)/3 mL nebulization soln magnesium oxide 400 mg PO DAILY 07/31/25 07/31/25 History meclizine 12.5 mg tablet 12.5 mg PO TID PRN Vertigo 07/31/25 07/31/25 History metoprolol succinate 25 mg 25 mg PO DAILY 07/31/25 07/31/25 History tablet,extended release 24 hr oxycodone 5 mg tablet 5 mg PO Q6H PRN Pain 07/31/25 07/31/25 History potassium chloride 10 mEq 10 meq PO DAILY 07/31/25 07/31/25 History capsule,extended release ropinirole 2 mg tablet 2 mg PO BID 07/31/25 07/31/25 History spironolactone 25 mg tablet 12.5 mg PO DAILY 07/31/25 07/31/25 History torsemide 20 mg tablet 40 mg PO BID 07/31/25 07/31/25 History trazodone 150 mg tablet 300 mg PO HS 07/31/25 07/31/25 History Past Med/Surg History Problem List (Updated 07/31/25 @ 23:24 by Sam Marquez MD) S/P hemorrhoidectomy (Acute) Acute UTI (Acute) Constipation (Acute) Nausea (Acute) LLQ abdominal pain (Acute) Abdominal pain Ambulatory dysfunction Failure of outpatient treatment (Acute) Hypokalemia (Acute) Respiratory syncytial virus (RSV) (Acute) Dyspnea (Acute) CKD (chronic kidney disease), stage III Depression Nausea Rectal bleeding Sinus bradycardia Paroxysmal atrial fibrillation Shortness of breath (Acute) Chest pain (Acute) Heart failure, diastolic, with acute decompensation (Acute) Diastolic CHF, chronic (Chronic) Hypertension (Chronic) Migraine headache (Chronic) Restless leg syndrome (Chronic) Degenerative joint disease (DJD) of lumbar spine (Chronic) Atrial fibrillation (Chronic) Sleep apnea (Chronic) Nonalcoholic fatty liver disease (Chronic) Internal hemorrhoids (Chronic) Status post hysterectomy (Chronic) Status post section (Chronic) Status post appendectomy (Chronic) Encounter for pre-operative examination Iron deficiency anemia Lower extremity edema (Acute) Medical History Dyspnea nebulizer/inhaler daily and prn On home oxygen therapy 2L via CPAP at HS History of COVID-19 diagnosed 11/2021--mild symptoms, no symptoms now Restless leg Morbid obesity with BMI of 45.0-49.9, adult Osteoarthritis Fibromyalgia Hiatal hernia History of basal cell carcinoma Anxiety History of migraine Brain aneurysm s/p repair (2018) CHF (congestive heart failure) follows with [facility] Sleep apnea CPAP with 2L at HS Atrial fibrillation dx 2017--intermittent--on metoprolol--follows with Dr. Shipman Hypertension Surgical History History of esophagogastroduodenoscopy (EGD) last 2019 @ [facility] H/O cerebral aneurysm repair 2018 - [facility] Claudia - follows [facility] neurosurgery Slow to wake up after anesthesia Awareness under anesthesia History of eyelid surgery History of tonsillectomy History of benign breast biopsy History of section History of total abdominal hysterectomy and bilateral salpingo-oophorectomy History of exploratory laparotomy History of colonoscopy last 2019 @ [facility] History of basal cell carcinoma (BCC) excision Family History Other Diabetes Heart disease Hypertension No family history of adverse response to anesthesia Social History Smoking Status: Never smoker Second Hand Exposure: No; Do You Dip or Chew Tobacco: No; Hx Alcohol Use: No Hx Substance Use: No Preferred Language: Slovak Communication Ability: Effective 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 Lungs- clear to auscultation no wheezing or crackles Heart- regular rate and rhythm; no murmur, no gallop. Abdomen- normal bowel sounds, soft, mild diffuse tenderness, mild guarding, no distension. Extremities- moves extremities, no erythema seen Neuro- alert, oriented PERRL, no facial palsy; no dysarthria; moves extremities Results & Data Results & Data Vital Signs (Past 12 Hours) Vital Signs Temp Pulse Pulse Resp BP BP Pulse Ox 07/31/25 20:00 83 20 110/59 L 94 07/31/25 19:51 76 07/31/25 18:21 69 15 96 07/31/25 17:21 71 18 99/49 L 98 07/31/25 16:36 80 24 104/55 L 96 07/31/25 16:19 81 07/31/25 16:11 94 07/31/25 16:00 72 18 103/73 93 07/31/25 15:57 37.0 C 71 16 103/73 94 O2 Del Method O2 Flow Rate 07/31/25 20:00 Nasal Cannula 2 07/31/25 19:51 07/31/25 18:21 07/31/25 17:21 07/31/25 16:36 07/31/25 16:19 07/31/25 16:11 Nasal Cannula 2 07/31/25 16:00 07/31/25 15:57 Room Air Diagnostic Findings Laboratory Results WBC 11.27 K/ul (4.8-10.8) H 07/31/25 16:14 RBC 3.87 M/uL (4.20-5.40) L 07/31/25 16:14 Hgb 10.9 g/dl (12.0-16.0) L 07/31/25 16:14 Hct 35.0 % (37.0-47.0) L 07/31/25 16:14 MCV 90.4 fL (80.0-100.0) 07/31/25 16:14 MCH 28.2 pg (25.0-34.0) 07/31/25 16:14 MCHC 31.1 g/dL (32.0-36.0) L 07/31/25 16:14 RDW Std Deviation 61.8 fL (36.4-46.3) H 07/31/25 16:14 RDW Coeff of Anurag 18.6 % (11.5-14.5) H 07/31/25 16:14 Plt Count 229 K/uL (130-400) 07/31/25 16:14 MPV 9.8 fL (9.4-12.4) 07/31/25 16:14 Immature Gran % (Auto) 0.9 % 07/31/25 16:14 Neut % (Auto) 76.2 % 07/31/25 16:14 Lymph % (Auto) 12.8 % 07/31/25 16:14 Baca % (Auto) 9.3 % 07/31/25 16:14 Eos % (Auto) 0.4 % 07/31/25 16:14 Baso % (Auto) 0.4 % 07/31/25 16:14 Neut # (Auto) 8.58 K/uL (1.40-6.50) H 07/31/25 16:14 Lymph # (Auto) 1.44 K/uL (1.20-3.40) 07/31/25 16:14 Baca # (Auto) 1.05 K/uL (0.11-0.59) H 07/31/25 16:14 Eos # (Auto) 0.05 K/uL (0.00-0.50) 07/31/25 16:14 Baso # (Auto) 0.05 K/uL (0.00-0.20) 07/31/25 16:14 Immature Gran # (Auto) 0.10 K/uL (0.01-0.20) 07/31/25 16:14 Sodium 137 mmol/L (136-145) 07/31/25 16:14 Potassium 3.9 mmol/L (3.5-5.1) 07/31/25 16:14 Chloride 97 mmol/L (98-107) L 07/31/25 16:14 Carbon Dioxide 35 mmol/L (21-32) H 07/31/25 16:14 Anion Gap 5 (3-11) 07/31/25 16:14 BUN 21 mg/dl (6-23) 07/31/25 16:14 Creatinine 1.41 mg/dl (0.6-1.2) H 07/31/25 16:14 Est Cr Clr Drug Dosing 47.6 ml/min 07/31/25 16:14 eGFR 40.38 07/31/25 16:14 BUN/Creatinine Ratio 14.9 (10-20) 07/31/25 16:14 Glucose 80 mg/dl (70-99(Fasting)) 07/31/25 16:14 Calcium 8.9 mg/dl (8.6-10.3) 07/31/25 16:14 Magnesium 2.4 mg/dl (1.7-2.4) 07/31/25 16:14 Total Bilirubin 0.4 mg/dl (0.2-1.0) 07/31/25 16:14 AST 13 U/L (13-39) 07/31/25 16:14 ALT 10 U/L (7-52) 07/31/25 16:14 Alkaline Phosphatase 79 U/L (34-104) 07/31/25 16:14 B-Natriuretic Peptide 55 pg/ml (0-100) 07/31/25 Unknown Total Protein 6.9 gm/dl (6.0-8.3) 07/31/25 16:14 Albumin 3.9 gm/dl (3.4-5.0) 07/31/25 16:14 Globulin 3.0 gm/dl (2.5-4.0) 07/31/25 16:14 Albumin/Globulin Ratio 1.3 (0.9-2) 07/31/25 16:14 Lipase 6 U/L (11-82) L 07/31/25 16:14 Urine Color Yellow 07/31/25 18:24 Urine Appearance Clear (Clear) 07/31/25 18:24 Urine pH 8.0 (4.5-7.5) H 07/31/25 18:24 Ur Specific [place] 1.008 (1.000-1.030) 07/31/25 18:24 Urine Protein Negative (Negative) 07/31/25 18:24 Urine Glucose (UA) Negative (Negative) 07/31/25 18:24 Urine Ketones Negative (Negative) 07/31/25 18:24 Urine Blood 2+ (Negative) H 07/31/25 18:24 Urine Nitrite Negative (Negative) 07/31/25 18:24 Urine Bilirubin Negative (Negative) 07/31/25 18:24 Urine Urobilinogen Negative (Negative) 07/31/25 18:24 Ur Leukocyte Esterase 2+ (Negative) H 07/31/25 18:24 Urine WBC (Auto) 0-5 /hpf (0-5) 07/31/25 18:24 Urine RBC (Auto) 0-2 /hpf (0-2) 07/31/25 18:24 U Hyaline Cast (Auto) 0-2 /lpf (0-2) 07/31/25 18:24 U Epithel Cells (Auto) 0-2 /hpf (0-2) 07/31/25 18:24 Urine Bacteria (Auto) None Seen (None Seen) 07/31/25 18:24 Urine Comment 07/31/25 18:24 Impressions Abdomen/Pelvis CT 07/31/25 16:11 EXAMINATION: CT of the abdomen and pelvis performed after the administration of IV contrast. TECHNIQUE: Helical CT images from the lung bases through the symphysis pubis were obtained with contrast. Coronal and sagittal reformatted images were generated at a workstation for further assessment. Dose reduction techniques were achieved by using automatic exposure control and/or adjustment of mA and/or kV according to patient size and/or use of iterative reconstruction technique. HISTORY: Postsurgery. Abdominal pain. COMPARISON: April 07, 2025. Study report not available at the time of dictation. FINDINGS: Supervisor Roving Department film demonstrates degenerative changes of the spine. Lung windows demonstrate mild dependent bibasilar subsegmental ectasis. Soft tissue windows demonstrate small hypodensity of the spleen. This is unchanged when compared to prior exam. This measures 1.4 cm diameter. Extrarenal pelvis on the left. There is prominent renal collecting system and ureter on the right. Prominent ureter on the left. No radiopaque renal collecting system, ureteral or urinary bladder calculi. No appreciated mass. Moderate distended urinary bladder. Mild bilateral perinephric fat stranding. Findings more prominent when compared to prior study. Uterus is absent. Ovaries are not identified. Moderate stool-filled large bowel. No mechanical obstruction. Mild air stool levels proximally. No appreciated wall thickening. Appendix is not identified. No secondary findings of appendiceal disease. Remaining solid and hollow organs of the abdomen and pelvis are within normal limits. No free air or free fluid. Degenerative changes of the spine. Moderate spinal canal and moderate to marked foraminal stenoses multiple levels. Bone windows demonstrate no acute osseous process. IMPRESSION: 1. Nonspecific prominent renal collecting systems, ureters and urinary bladder with mild perinephric fat stranding. No stone, mass or hydronephrosis. Urinary tract infection not entirely excluded. 2. Moderate stool-filled large bowel without mechanical obstruction. 3. Small hypodensity of the spleen. This is not appreciably changed when compared to prior exam. Hemangioma not excluded. Ultrasound be helpful for further characterization. Otherwise no findings to suggest source for patient's symptoms. Please see above for details. Electronically signed by Sal Poe 07-31-2025 8:11 PM Chest X-Ray 07/31/25 16:11 Technique: A frontal view of the chest was obtained Comparison is made to the prior examination dated 04/07/2025 Findings: There are no confluent pulmonary infiltrates. The heart size is at the upper limit of normal. No pleural effusion or pneumothorax is seen. There is no definite pulmonary nodule. No fracture is noted. There is thoracic degenerative disc disease. There is a left shoulder arthroplasty Impression: No active disease Electronically signed by Pietro Bullock 07-31-2025 7:53 PM ECG Additional Comments: ECG shows sinus rhythm with first-degree AV block at rate of 70. Nonspecific T wave abnormality. No significant changes was found. Code Status & VTE Plan VTE Prophylaxis Plan VTE Prophylaxis will be ordered: Yes
[2025-08-01] MEDS ORDERED: SODIUM CHLORIDE 0.9% 1,000 ML IV SCH (06:30)
[2025-08-01 06:31] LABS: Hematocrit (blood only) 32.5 % (37.0-47.0); Hemoglobin 10.7 g/dl (12.0-16.0); Immature Granulocytes # (auto) 0.08 K/uL (0.01-0.20); Immature Granulocytes % (auto) 0.9 %; Mean Corpuscular Hemoglobin 29.7 pg (25.0-34.0); Mean Corpuscular Volume 90.3 fL (80.0-100.0); Platelet Count 217 K/uL (130-400); RDW Standard Deviation 60.4 fL (36.4-46.3); Red Blood Count 3.60 M/uL (4.20-5.40); White Blood Count 9.40 K/ul (4.8-10.8)
[2025-08-01 06:53] LABS: Anion Gap 5.0 (3-11); Blood Urea Nitrogen 20.0 mg/dl (6-23); Calcium 8.5 mg/dl (8.6-10.3); Carbon Dioxide 36.0 mmol/L (21-32); Chloride 100.0 mmol/L (98-107); Creatinine Clr Calc Pharmacy 44.0 ml/min; Glucose 85.0 mg/dl (70-99(Fasting)); Magnesium 2.3 mg/dl (1.7-2.4); Potassium 3.8 mmol/L (3.5-5.1); Sodium 141.0 mmol/L (136-145)
[2025-08-01] MEDS: ALBUT/IPRATROP 3MG/0.5MG NEB 3 ML VIAL INH SCH (07:40)
[2025-08-01] MEDS: MAGNESIUM OXIDE 400 MG TAB PO SCH (08:15)
[2025-08-01] MEDS: FLUTICASONE PROPIONATE NA SPR 16 GM BTL SCH (08:16)
[2025-08-01] MEDS: CHOLECALCIFEROL 25 MCG (1000 UNITS) TAB PO SCH (08:17)
[2025-08-01] MEDS: ATORVASTATIN 10 MG TAB PO SCH (08:17)
[2025-08-01] MEDS: CYANOCOBALAMIN (B-12) 500 MCG TABLET PO SCH (08:17)
[2025-08-01] MEDS: ASPIRIN 81 MG ECTAB PO SCH (08:23)
[2025-08-01] MEDS: cefTRIAXone SODIUM 2,000 MG/50 ML BAG IV SCH (08:24)
[2025-08-01] MEDS: LACTULOSE SYRUP 20 GM/30 ML UDC PO ONE (08:24)
[2025-08-01] MEDS: SPIRONOLACTONE 12.5 MG TAB PO SCH (08:25)
[2025-08-01] MEDS: POTASSIUM CHLORIDE 10 MEQ TABCR PO SCH (08:28)
[2025-08-01] MEDS: DOCUSATE SODIUM/SENNA 50/8.6MG TAB PO SCH (08:28)
[2025-08-01] MEDS ORDERED: HYDROmorphone INJ 0.5 MG/0.5 ML SYR IV PRN (09:50)
[2025-08-01] MEDS: METOPROLOL SUCC 25MG EXT REL TAB PO SCH (10:20)
[2025-08-01] MEDS: POLYETHYLENE (MIRALAX) 17 GM PACK PO SCH (10:26)
[2025-08-01] MEDS: TORSEMIDE 20 MG TAB PO SCH (10:28)
[2025-08-01] MEDS: HYDROmorphone INJ 0.5 MG/0.5 ML SYR IV STA (10:28)
[2025-08-01 10:42] LABS: Hematocrit (blood only) 34.9 % (37.0-47.0); Hemoglobin 11.1 g/dl (12.0-16.0); Immature Granulocytes # (auto) 0.06 K/uL (0.01-0.20); Immature Granulocytes % (auto) 0.6 %; Mean Corpuscular Hemoglobin 28.1 pg (25.0-34.0); Mean Corpuscular Volume 88.4 fL (80.0-100.0); Platelet Count 234 K/uL (130-400); RDW Standard Deviation 59.2 fL (36.4-46.3); Red Blood Count 3.95 M/uL (4.20-5.40); White Blood Count 9.34 K/ul (4.8-10.8)
[2025-08-01] MEDS: ONDANSETRON INJ 2 MG/ML 2 ML VIAL IV PRN (10:52)
[2025-08-01 10:59] LABS: Alanine Aminotransferase 10.0 U/L (7-52); Albumin Globulin Ratio 1.2 (0.9-2); Albumin Level 3.8 gm/dl (3.4-5.0); Alkaline Phosphatase 77.0 U/L (34-104); Anion Gap 7.0 (3-11); Bilirubin,Total 0.4 mg/dl (0.2-1.0); Blood Urea Nitrogen 21.0 mg/dl (6-23); Calcium 9.0 mg/dl (8.6-10.3); Carbon Dioxide 32.0 mmol/L (21-32); Chloride 101.0 mmol/L (98-107); Creatinine Clr Calc Pharmacy 43.4 ml/min; Globulin 3.1 gm/dl (2.5-4.0); Glucose 89.0 mg/dl (70-99(Fasting)); Potassium 3.7 mmol/L (3.5-5.1); Sodium 140.0 mmol/L (136-145); Total Protein 6.9 gm/dl (6.0-8.3)
--- NOTE | 2025-08-01 11:51 | Hospitalist Progress Note ---
Date of Service August 01, 2025 Assessment & Plan (1) Abdominal pain: Plan: 70-year-old female with past medical history significant for hyperlipidemia, severe obstructive sleep apnea/hypopnea apnea syndrome, paroxysmal atrial fibrillation, gutierrez angioma, hypertension, CKD stage IIIb, chronic diastolic CHF, morbid obesity, nonalcoholic fatty liver disease, generalized osteoarthritis, fibromyalgia, lymphedema both lower extremities, restless leg syndrome, lipodermatosclerosis of both lower extremities, peripheral neuropathy, iron deficiency anemia due to chronic blood loss, aspirin intolerance, panic disorder, history of cerebral aneurysm status post stent assisted coil 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 #Peritonitic Abdominal Pain #Recent Hemorrhoidectomy #Constipation -pain appears to have increased overnight -pain now appears mildly peritonitic in nature in RLQ, immediately notified surgery -differential is broad, including post operative perforation, SBO, ischemia, ovarian torsion, appendicitis Plan: -surgery consulted, appreciate recs -NPO for night for possible ex lap if needed -CT abdomen/pelvis with IV and PO contrast ordered for further definition -repeat lactic acid, CMP, CBC -increase IV dilaudid to 1mg q3hr prn for severe pain -advanced bowel regiment as tolerated per surgery recommendations -stop ceftriaxone, start meropenem (allergic to zosyn) #R/o Pyelonephritis -Burning micturition -UA not suggestive of overt UTI given no WBC, does have mild fat stranding on i maging -check urine culture #Right eye blurred visions with floaters -Since yesterday() -Discussed with the ophthalmology in [place] Dr. Bill Chavez and since vision is okay plan for ophthalmology evaluation in a.m. if any changes in vision or ophthalmology not able to see her in the morning to call back [place] again -pending opthalmology evaluation today Obstructive sleep apnea -On CPAP nightly with 2 L oxygen Paroxysmal atrial fibrillation -On metoprolol succinate -Not on anticoagulant due to bleeding per Cardiology notes -On aspirin Restless leg syndrome -On Requip Chronic diastolic CHF -On torsemide and spironolactone with potassium supplement -Will monitor for volume overload Hyperlipidemia -On statin CKD stage III -Baseline creatinine 1.3 -Presents with creatinine 1.4 -Will follow labs Iron-deficiency anemia due to chronic blood loss -Hemoglobin 10.9 I spent a total of 60 minutes in direct patient care, including [id number] time with the patient and/or family, reviewing medical records, ordering and reviewing diagnostic tests, and coordinating care with other healthcare providers. This time includes: history taking, physical examination, medical decision making, counseling, ECG interpretation, imaging interpretation, lab interpretation, orders, and education, excluding time spent in the performance of separately billed services. Admission and Anticipated Discharge Date Admission Date: July 31, 2025 Subjective Patient seen and examined at bedside. Patient in pain crisis currently. Sister and mother also present. Patient has been having severe worsening pain for past 24 hours. Nausea and vomiting as well, does not feel well. Review of Systems Review of Systems: -unable to answer due to pain crisis exc ept for above Physical Exam Physical Exam: Gen: A&O 3 , very uncomfortable HEENT: NCAT, EOMI, not icteric. External ears normal. No rhinorrhea. Dry mucous membranes. Neck: Supple, full range of motion, no observable masses, No meningeal sign. Lungs: No Respiratory distress. CV: RRR, no edema. Abdomen: peritonitic RLQ of abdomen (relayed immediately to surgical team) MSK: No joint swelling, no redness. Skin: No rashes, petechiae, lesions. Normal color per patient. Neuro: Normal Gait, Grossly intact. Psych: Appropriate for situation. Results & Data Results & Data Vital Signs (Past 12 Hours) Vital Signs Temp Pulse Pulse Resp BP Pulse Ox O2 Del Method 08/01/25 08:00 Nasal Cannula 08/01/25 07:41 64 18 91 Room Air 08/01/25 07:10 36.5 C 48 L 16 99/63 L 97 Room Air, CPAP 08/01/25 02:36 84 12 92 08/01/25 00:04 85 14 92 O2 Flow Rate 08/01/25 08:00 2 08/01/25 07:41 08/01/25 07:10 08/01/25 02:36 2 08/01/25 00:04 2 Laboratory Results -personally reviewed, no leukocytosis, creatinine uptrending, lactic acid not elevated Medications Administered Albuterol (Albut/Ipratrop 3mg/0.5mg Neb 3 Ml Vial) 3 ml INH BIDR [facility]; Protocol Stop: 08/31/25 06:59 Last Admin: 08/01/25 07:40 Dose: 3 ml Documented By: ALFRED Aspirin (Aspirin 81 Mg Ectab) 81 mg PO DAILY [facility] Stop: 08/31/25 08:59 Last Admin: 08/01/25 08:23 Dose: 81 mg Documented By: mashak Atorvastatin Calcium (Atorvastatin 10 Mg Tab) 10 mg PO DAILY [facility] Stop: 08/31/25 08:59 Last Admin: 08/01/25 08:17 Dose: 10 mg Documented By: mashak Cyanocobalamin (Cyanocobalamin (B-12) 500 Mcg Tablet) 1,000 mcg PO DAILY [facility] Stop: 08/31/25 08:59 Last Admin: 08/01/25 08:17 Dose: 1,000 mcg Documented By: mashak Fluticasone Propionate (Fluticasone Propionate Na Spr 16 Gm Btl) 2 sprays NA DAILY [facility] Stop: 08/31/25 08:59 Last Admin: 08/01/25 08:16 Dose: 2 sprays Documented By: martín Hydroxyzine HCl (Hydroxyzine Hcl 25 Mg Tab) 50 mg PO Q8 PRN PRN Reason: Anxiety Stop: 08/31/25 08:18 Last Admin: 08/01/25 08:52 Dose: 50 mg Documented By: martín Magnesium Oxide (Magnesium Oxide 400 Mg Tab) 400 mg PO DAILY [facility] Stop: 08/31/25 08:59 Last Admin: 08/01/25 08:15 Dose: 400 mg Documented By: martín Metoprolol Succinate (Metoprolol Succ 25mg Ext Rel Tab) 25 mg PO DAILY [facility] Stop: 08/31/25 08:59 Last Admin: 08/01/25 10:20 Dose: Not Given Documented By: DOREENK Ondansetron HCl (Ondansetron Inj 2 Mg/Ml 2 Ml Vial) 4 mg IV Q6H PRN PRN Reason: Nausea And Vomiting Stop: 08/31/25 10:28 Last Admin: 08/01/25 10:52 Dose: 4 mg Documented By: DOREENK Polyethylene Glycol (Polyethylene (Miralax) 17 Gm Pack) 17 gm PO DAILY [facility] Stop: 08/31/25 08:59 Last Admin: 08/01/25 11:10 Dose: Not Given Documented By: DOREENK Potassium Chloride (Potassium Chloride 10 Meq Tabcr) 10 meq PO DAILY [facility] Stop: 08/31/25 08:59 Last Admin: 08/01/25 08:28 Dose: 10 meq Documented By: martín Ropinirole HCl (Ropinirole Hcl 2 Mg Tablet) 2 mg PO BID [facility] Stop: 08/31/25 08:59 Last Admin: 08/01/25 08:21 Dose: 2 mg Documented By: martín Senna/Docusate Sodium (Docusate Sodium/Senna 50/8.6mg Tab) 1 tab PO BID [facility] Stop: 08/31/25 08:59 Last Admin: 08/01/25 08:28 Dose: 1 tab Documented By: martín Spironolactone (Spironolactone 12.5 Mg Tab) 12.5 mg PO DAILY [facility] Stop: 08/31/25 08:59 Last Admin: 08/01/25 08:25 Dose: 12.5 mg Documented By: martín Torsemide (Torsemide 20 Mg Tab) 40 mg PO BID17 [facility] Stop: 08/31/25 08:59 Last Admin: 08/01/25 11:11 Dose: Not Given Documented By: KIRSTIN Vitamin D (Cholecalciferol 25 Mcg (1000 Units) Tab) 25 mcg PO DAILY [facility] Stop: 08/31/25 08:59 Last Admin: 08/01/25 08:17 Dose: 25 mcg Documented By: martín
[2025-08-01] MEDS: OPTIRAY 320 100ml IV ONE (13:21)
--- NOTE | 2025-08-01 13:31 | Surgery Progress Note ---
Date of Service August 01, 2025 Assessment & Plan (1) S/P hemorrhoidectomy: (2) Abdominal pain: Plan 70F POD 3 s/p hemorrhoidectomy in [place] on 07/29/25 presents with increasing abdominal pain since Sunday (07/31/25) am. Has decreased appetitite, no BM and difficulty urinating and passing flatus. Admission CT without significant findings of evident perforation at that time or abscess formation. She has been afebrile and mild leukocytosis that was present at admission has resolved on this am's labs making the rare complication of pelvic sepsis less likely as well. Recommend IV abx targeting GI microbes including anaerobes Pain control A repeat CT ordered per medical service is also without significant findings NPO for now Sitz baths if avaialable. If not, try warm compresses to the anal area Surgery will follow up in the am Admission and Anticipated Discharge Date Admission Date: July 31, 2025 Subjective Pt seen and examined this am. C/o lower abdominal pain. Denies the ability to pass gas and has not had a BM. Pt explains that she had some packing placed during her recent hemorrhoidectomy surgery after which she was told to remove when she got home but states she was unable to feel anything there when she got home. Physical Exam Constitutional: + morbidly obese and + in distress (in p ain this am); not diaphoretic Respiratory: normal respiratory effort; no respiratory distress, no labored breathing and does not use accessory muscles Cardiovascular: Rate/Rhythm: regular rate; not tachycardic Gastrointestinal (Abdomen): obese abdomen TTP. Greatly TTP at the lower abdomen, moderately TTP mid abdomen Hemorrhoidal disease is identified at the perianal region. One external hemorrhoid in particular is very swollen and firm, feels to be thrombosed at the left lateral anus. A smaller swollen hemorrhoid is just anterior to this. Digital exam does not reveal any packing or stool low in the rectal vault Gas was expressed with digital examination Results & Data Vital Signs (Past 12 Hours) Vital Signs Temp Pulse Pulse Resp BP BP Pulse Ox 08/01/25 12:42 08/01/25 12:04 98/53 L 08/01/25 11:45 67 15 98 08/01/25 11:34 70 16 129/61 94 08/01/25 11:34 36.8 C 08/01/25 08:00 08/01/25 07:41 64 18 91 08/01/25 07:10 36.5 C 48 L 16 99/63 L 97 08/01/25 02:36 84 12 92 O2 Del Method O2 Flow Rate 08/01/25 12:42 Nasal Cannula 2 08/01/25 12:04 08/01/25 11:45 08/01/25 11:34 Nasal Cannula 2 08/01/25 11:34 08/01/25 08:00 Nasal Cannula 2 08/01/25 07:41 Room Air 08/01/25 07:10 Room Air, CPAP 08/01/25 02:36 2 PG Care Time/CCT Total # of Minutes Spent Total Time Spent with Patient: Total time spent is greater than 50% in coordination of care (as documented) at patient's floor/unit and/or counseling patient: Coding Level of Care Code 31502 SUB INP/OBS CARE 11/29MIN Diagnoses S/P hemorrhoidectomy Z98.890; Z87.19 Abdominal pain R10.9
[2025-08-01] MEDS: MEROPENEM 500 MG in SYRINGE 0 ML IV SCH (13:41)
[2025-08-01] MEDS: HYDROmorphone INJ 1 MG/ML SYRINGE IV PRN (13:41)
--- NOTE | 2025-08-01 13:43 | CT Scan Report ---
EXAM: CT Abdomen and Pelvis With Intravenous Contrast INDICATION: Peritonitis. TECHNIQUE: Axial computed tomography images of the abdomen and pelvis with intravenous contrast. Sagittal and coronal reformatted images were created and reviewed. This CT exam was performed using one or more of the following dose reduction techniques: automated exposure control, adjustment of the mA and/or kV according to patient size, and/or use of iterative reconstruction technique. Oral contrast was administered. CONTRAST: 94 ml of Optiray 320 was administered intravenously. COMPARISON: 04/07/2025 FINDINGS: Limitations: None. Lung bases: Dependent atelectasis in the lower lobes right greater than left. Pleural space: No visualized pleural effusion or pneumothorax. Heart: Enlarged heart. Coronary calcification noted. No pericardial effusion. Mediastinum: No abnormality noted. ABDOMEN: Liver: No abnormality noted. Gallbladder and bile ducts: Distended gallbladder with sludge. Pancreas: Homogeneous enhancement. No mass, inflammation or ductal dilation. Spleen: Stable small cyst in the spleen. Adrenals: No significant abnormality noted. Kidneys and ureters: Normal enhancement. No mass, hydronephrosis or visualized stone. Stomach and bowel: Moderate amounts of stool in the redundant left colon and stool and fluid in the transverse and right colon. No obstruction with contrast noted in the colon. No small bowel thickening or inflammatory process noted. PELVIS: Appendix: No findings to suggest acute appendicitis. Bladder: The urinary bladder is decompressed by catheter. Escobar balloon in the lumen. Some excreted contrast noted. Reproductive: No abnormalities noted. ABDOMEN and PELVIS: Intraperitoneal space: No free air. No significant fluid collection. Bones/joints: Degenerative changes noted throughout the spine. No acute osseous abnormality seen. Soft tissues: No significant abnormality noted. Vasculature: Atherosclerotic calcification of the aorta and branches. No aneurysm. Lymph nodes: No pathologically enlarged lymph nodes. IMPRESSION: 1. Moderate amounts of stool in the redundant left colon with proximal colonic fluid consistent with some level of constipation. No definite obstruction. 2. Distended gallbladder with sludge. 3. Atelectasis right base. ACT 112: N/A Electronically signed by Janeen Marques 08-01-2025 13:43 PM
[2025-08-01] MEDS: PROMETHAZINE 12.5 MG/50.5 ML BAG IV PRN (15:58)
--- NOTE | 2025-08-02 04:28 | Surgery Progress Note ---
Date of Service August 02, 2025 Assessment & Plan (1) S/P hemorrhoidectomy: Plan: The patient has been admitted to the hospitalist service. She is status post hemorrhoidectomy at [facility] on 05/28/2025 (postop day #4) [address] scan on 07/31/2025 only showed some prominence of the renal collecting systems with some mild perinephric fat stranding. There were no other findings noted on the CT scan to explain her presenting abdominal pain Due to worsening pain the patient had a repeat CT scan on 08/01/2025. This study showed a moderate amount of stool and redundant left colon concerning for constipation. There is no evidence of obstruction and no other findings to explain the patient's pain. Patient did have a leukocytosis of 11.2 at time of admission and this improved yesterday to 9.3 Attending surgical physician performed a digital rectal exam yesterday and physical exam findings did not reveal anything to explain the patient's pain The patient has remained afebrile. This coupled with her improving leukocytosis does not suggest development of any abscess, and again this was not seen on her most recent CT scan The patient has had her antibiotics broadened from Rocephin to meropenem. Will continue this for the present time Keep patient n.p.o. for the present time, but if clinical improvement is noted consideration may be given to allowing clear liquids later today Continue sitz bath's and warm compresses to anal area for comfort The patient's bowel regimen includes Senokot, MiraLAX, and the patient did receive 1 dose of lactulose yesterday. Will continue bowel regimen as constipation may be contributing to her clinical picture Check a.m. labs when available Patient remains hospitalized consideration may be given to initiating chemical means of DVT prophylaxis, providing her laboratories are stable Additional recommendations will be forthcoming based on her clinical course as it unfolds Admission and Anticipated Discharge Date Admission Date: July 31, 2025 Supervising Physician Co-Signing Physician Notes Patient's symptoms beginning to improve with the broaden abx coverage. She remains without leukocytosis today and has been afebrile Continue IV abx at this time May have a clear liquid diet for now and advance diet as tolerated Pt is on chemical DVT ppx Surgery will follow for now Subjective Patient is currently resting comfortably in bed. She notes her previously noted lower abdominal pain is present but is markedly improved. She says she is passing flatus which does seem to improve her pain somewhat but she has not had a bowel movement since admission. She does report some nausea without vomiting and does not report having much of an appetite. I discussed with the nurse attending to the patient and she verified the above information. She notes that the patient has been afebrile throughout her shift. She also notes that the patient has not required any analgesic administration since approximately 7:30 PM on 08/01/2025. Physical Exam Gastrointestinal (Abdomen): At the time of my exam this morning abdomen is noted to be soft without rigidity. There is minimal distention. At this time there is no rebound tenderness or guarding or other signs of peritonitis. Patient only had slight discomfort with palpation of her lower abdomen which appear to be greatest in the suprapubic region. This is a significant improvement from what was noted at time of admission. Results & Data Vital Signs (Past 12 Hours) Vital Signs Temp Pulse Pulse Resp BP Pulse Ox O2 Del Method 08/02/25 00:12 69 16 113/54 L 94 08/01/25 23:34 63 08/01/25 23:33 36.8 C 08/01/25 22:28 CPAP 08/01/25 21:00 36.9 C 08/01/25 20:18 66 13 112/70 92 08/01/25 20:01 57 L 18 95 Nasal Cannula 08/01/25 17:00 68 16 96 O2 Flow Rate 08/02/25 00:12 08/01/25 23:34 08/01/25 23:33 08/01/25 22:28 2 08/01/25 21:00 08/01/25 20:18 08/01/25 20:01 2 08/01/25 17:00 PG Care Time/CCT Total # of Minutes Spent Total Time Spent with Patient: Total time spent is greater than 50% in coordination of care (as documented) at patient's floor/unit and/or counseling patient: Coding Level of Care Code 51376 SUB INP/OBS CARE 11/29MIN Diagnoses S/P hemorrhoidectomy Z98.890; Z87.19
[2025-08-02 04:50] LABS: Hematocrit (blood only) 32.6 % (37.0-47.0); Hemoglobin 10.7 g/dl (12.0-16.0); Mean Corpuscular Hemoglobin 29.4 pg (25.0-34.0); Mean Corpuscular Volume 89.6 fL (80.0-100.0); Platelet Count 219 K/uL (130-400); RDW Standard Deviation 60.2 fL (36.4-46.3); Red Blood Count 3.64 M/uL (4.20-5.40); White Blood Count 8.54 K/ul (4.8-10.8)
[2025-08-02 05:07] LABS: Alanine Aminotransferase 7.0 U/L (7-52); Albumin Globulin Ratio 1.3 (0.9-2); Albumin Level 3.4 gm/dl (3.4-5.0); Alkaline Phosphatase 70.0 U/L (34-104); Anion Gap 5.0 (3-11); Bilirubin,Total 0.5 mg/dl (0.2-1.0); Blood Urea Nitrogen 19.0 mg/dl (6-23); Calcium 8.6 mg/dl (8.6-10.3); Carbon Dioxide 33.0 mmol/L (21-32); Chloride 100.0 mmol/L (98-107); Creatinine Clr Calc Pharmacy 46.8 ml/min; Globulin 2.7 gm/dl (2.5-4.0); Glucose 79.0 mg/dl (70-99(Fasting)); Potassium 4.0 mmol/L (3.5-5.1); Sodium 138.0 mmol/L (136-145); Total Protein 6.1 gm/dl (6.0-8.3)
--- NOTE | 2025-08-02 07:05 | Electrocardiogram Report ---
Test Reason : Blood Pressure : */* mmHG Vent. Rate : 70 BPM Atrial Rate : 70 BPM P-R Int : 210 ms QRS Dur : 78 ms QT Int : 400 ms P-R-T Axes : 61 62 40 degrees QTcB Int : 432 ms Sinus rhythm with 1st degree A-V block Low voltage QRS Nonspecific T wave abnormality Abnormal ECG When compared with ECG of 07-Apr-2025 09:59, No significant change was found Confirmed by Raudel Gregory ([id number]) on 08/02/2025 7:05:14 AM Referred By: Confirmed By: Raudel Gregory
[2025-08-02] MEDS: LACTULOSE SYRUP 20 GM/30 ML UDC PO SCH (08:45)
--- NOTE | 2025-08-02 13:49 | Hospitalist Progress Note ---
Date of Service August 02, 2025 Assessment & Plan (1) Abdominal pain: Plan: 70-year-old female with past medical history significant for hyperlipidemia, severe obstructive sleep apnea/hypopnea apnea syndrome, paroxysmal atrial fibrillation, gutierrez angioma, hypertension, CKD stage IIIb, chronic diastolic CHF, morbid obesity, nonalcoholic fatty liver disease, generalized osteoarthritis, fibromyalgia, lymphedema both lower extremities, restless leg syndrome, lipodermatosclerosis of both lower extremities, peripheral neuropathy, iron deficiency anemia due to chronic blood loss, aspirin intolerance, panic disorder, history of cerebral aneurysm status post stent assisted coil 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 #Peritonitic Abdominal Pain, resolved #Recent Hemorrhoidectomy #Constipation #Urinary Retention -pain appears to have increased overnight -pain now appears mildly peritonitic in nature in RLQ, immediately notified surgery -differential is broad, including post operative perforation, SBO, ischemia, ovarian torsion, appendicitis -urinary retention and substantial pain resolved with catheter placement Plan: -surgery consulted, appreciate recs -advanced diet as tolerated -start lyrica 25mg bid -stop dilaudid, start oxycodone 5mg q4hr prn with breakthrough dilaudid 0.5mg -stop lactulose given BM, continue advanced bowel regiment otherwise -will need urology f/u outpatient for catheter removal #R/o Pyelonephritis -Burning micturition -UA not suggestive of overt UTI given no WBC, does have mild fat stranding on imaging #Right eye blurred visions with floaters -Since yesterday () -Discussed with the ophthalmology in [place] Dr. Bill Chavez and since vision is okay plan for ophthalmology evaluation in a.m. if any changes in vision or ophthalmology not able to see her in the morning to call back [place] again -improving, f/u outpatient Obstructive sleep apnea -On CPAP nightly with 2 L oxygen Paroxysmal atrial fibrillation -On metoprolol succinate -Not on anticoagulant due to bleeding per Cardiology notes -On aspirin Restless leg syndrome -On Requip Chronic diastolic CHF -On torsemide and spironolactone with potassium supplement -Will monitor for volume overload Hyperlipidemia -On statin CKD stage III -Will follow labs Iron-deficiency anemia due to chronic blood loss -Hemoglobin 10.9 I spent a total of55 minutes in direct patient care, including [id number] time with the patient and/or family, reviewing medical records, ordering and reviewing diagnostic tests, and coordinating care with other healthcare providers. This time includes: history taking, physical examination, medical decision making, counseling, ECG interpretation, imaging interpretation, lab interpretation, orders, and education, excluding time spent in the performance of separately billed services. Admission and Anticipated Discharge Date Admission Date: July 31, 2025 Subjective Patient seen and examined at bedside. Patient doing better today. States her pain is primarily her rectal pain, which she describes as burning pain. Still has trace pain in abdomen. Otherwise, passing gas but no bowel movement until later in day after evaluation. Review of Systems Review of Systems: CONSTITUTIONAL: Patient denies fevers, chills, sweats and weight changes. EYES: Patient denies any visual symptoms. EARS, NOSE, AND THROAT: No difficulties with hearing. No symptoms of rhinitis or sore throat. CARDIOVASCULAR: Patient denies chest pains, palpitations, orthopnea and paroxysmal nocturnal dyspnea. RESPIRATORY: No dyspnea on exertion, no wheezing or cough. GI: rectal pain, some nausea, some mild diffuse ab pain : No urinary hesitancy or dribbling. No nocturia or urinary frequency. No abnormal urethral discharge. MUSCULOSKELETAL: No myalgias or arthralgias. NEUROLOGIC: No chronic headaches, no seizures. Patient denies numbness, tingling or weakness. PSYCHIATRIC: Patient denies problems with mood disturbance. No problems with anxiety. ENDOCRINE: No excessive urination or excessive thirst. DERMATOLOGIC: Patient denies any rashes or skin changes. Physical Exam Physical Exam: Gen: A&O 3, comfortable HEENT: NCAT, EOMI, not icteric. External ears normal. No rhinorrhea. Dry mucous membranes. Neck: Supple, full range of motion, no observable masses, No meningeal sign. Lungs: No Respiratory distress. CV: RRR, no edema. Abdomen: much better today, mild diffuse tenderness MSK: No joint swelling, no redness. Skin: No rashes, petechiae, lesions. Normal color per patient. Neuro: Normal Gait, Grossly intact. Psych: Appropriate for situation. Results & Data Results & Data Vital Signs (Past 12 Hours) Vital Signs Temp Pulse Pulse Pulse Resp BP BP 08/02/25 12:32 36.9 C 76 17 103/52 L 08/02/25 08:54 68 19 115/51 L 08/02/25 08:54 36.8 C 08/02/25 07:30 08/02/25 07:19 65 17 08/02/25 04:06 69 16 109/57 L 08/02/25 04:00 36.8 C Pulse Ox O2 Del Method O2 Flow Rate 08/02/25 12:32 96 Room Air 08/02/25 08:54 94 Room Air 08/02/25 08:54 08/02/25 07:30 CPAP 2 08/02/25 07:19 96 Nasal Cannula 2 08/02/25 04:06 96 08/02/25 04:00 Laboratory Results -personally reviewed, no leukocytosis, creatinine downtrending Medications Administered Albuterol (Albut/Ipratrop 3mg/0.5mg Neb 3 Ml Vial) 3 ml INH BIDR ANTIONETTE; Protocol Stop: 08/31/25 06:59 Last Admin: 08/02/25 07:19 Dose: 3 ml Documented By: Admin: 08/01/25 20:01 Dose: 3 ml Documented By: Admin: 08/01/25 07:40 Dose: 3 ml Documented By: ALFRED Aspirin (Aspirin 81 Mg Ectab) 81 mg PO DAILY [facility] Stop: 08/31/25 08:59 Last Admin: 08/02/25 08:44 Dose: 81 mg Documented By: Admin: 08/01/25 08:23 Dose: 81 mg Documented By: martín Atorvastatin Calcium (Atorvastatin 10 Mg Tab) 10 mg PO DAILY ANTIONETTE Stop: 08/31/25 08:59 Last Admin: 08/02/25 08:45 Dose: 10 mg Documented By: Admin: 08/01/25 08:17 Dose: 10 mg Documented By: martín Cyanocobalamin (Cyanocobalamin (B-12) 500 Mcg Tablet) 1,000 mcg PO DAILY ANTIONETTE Stop: 08/31/25 08:59 Last Admin: 08/02/25 08:45 Dose: 1,000 mcg Documented By: Admin: 08/01/25 08:17 Dose: 1,000 mcg Documented By: martín Fluticasone Propionate (Fluticasone Propionate Na Spr 16 Gm Btl) 2 sprays NA DAILY ANTIONETTE Stop: 08/31/25 08:59 Last Admin: 08/02/25 08:47 Dose: 2 sprays Documented By: Admin: 08/01/25 08:16 Dose: 2 sprays Documented By: martín Hydromorphone HCl (Hydromorphone Inj 1 Mg/Ml Syringe) 1 mg IV Q3HWA PRN PRN Reason: Severe Pain (Scale 7, 8, 9,10) Stop: 08/15/25 08:30 Last Admin: 08/02/25 08:49 Dose: 1 mg Documented By: Admin: 08/01/25 19:33 Dose: 1 mg Documented By: ALFRED(2) Admin: 08/01/25 13:41 Dose: 1 mg Documented By: KAILYN Hydroxyzine HCl (Hydroxyzine Hcl 25 Mg Tab) 50 mg PO Q8 PRN PRN Reason: Anxiety Stop: 08/31/25 08:18 Last Admin: 08/01/25 08:52 Dose: 50 mg Documented By: martín Meropenem 500 mg/ Syringe 10 mls @ 2 mls/min IV Q8H ANTIONETTE; Protocol Stop: 08/11/25 12:59 Last Admin: 08/02/25 05:35 Dose: 2 mls/min Documented By: ALFRED(2) Admin: 08/01/25 20:42 Dose: 2 mls/min Documented By: ALFRED(2) Admin: 08/01/25 13:41 Dose: 2 mls/min Documented By: KAILYN Promethazine HCl (Phenergan) 12.5 mg in 50.5 mls @ 202 mls/hr IV Q6H PRN PRN Reason: refractory Nausea And Vomiting Stop: 08/31/25 13:05 Last Infusion: 08/01/25 16:26 Dose: Infused Documented By: Admin: 08/01/25 15:58 Dose: 202 mls/hr Documented By: YAYA Lactulose (Lactulose Syrup 20 Gm/30 Ml Udc) 20 gm PO TID ANTIONETTE Stop: 09/01/25 08:59 Last Admin: 08/02/25 08:45 Dose: 20 gm Documented By: OLGA Metoprolol Succinate (Metoprolol Succ 25mg Ext Rel Tab) 25 mg PO DAILY ANTIONETTE Stop: 08/31/25 08:59 Last Admin: 08/02/25 08:45 Dose: 25 mg Documented By: Admin: 08/01/25 10:20 Dose: Not Given Documented By: KIRSTIN Ondansetron HCl (Ondansetron Inj 2 Mg/Ml 2 Ml Vial) 4 mg IV Q6H PRN PRN Reason: Nausea And Vomiting Stop: 08/31/25 10:28 Last Admin: 08/02/25 08:49 Dose: 4 mg Documented By: Admin: 08/02/25 05:35 Dose: 4 mg Documented By: ALFRED(2) Admin: 08/01/25 19:33 Dose: 4 mg Documented By: ALFRED(2) Admin: 08/01/25 13:09 Dose: 4 mg Documented By: Admin: 08/01/25 10:52 Dose: 4 mg Documented By: KIRSTIN Polyethylene Glycol (Polyethylene (Miralax) 17 Gm Pack) 17 gm PO DAILY ANTIONETTE Stop: 08/31/25 08:59 Last Admin: 08/02/25 08:49 Dose: 17 gm Documented By: Admin: 08/01/25 11:10 Dose: Not Given Documented By: KIRSTIN Ropinirole HCl (Ropinirole Hcl 2 Mg Tablet) 2 mg PO BID ANTIONETTE Stop: 08/31/25 08:59 Last Admin: 08/02/25 08:45 Dose: 2 mg Documented By: Admin: 08/01/25 20:42 Dose: 2 mg Documented By: ALFRED(2) Admin: 08/01/25 08:21 Dose: 2 mg Documented By: martín Senna/Docusate Sodium (Docusate Sodium/Senna 50/8.6mg Tab) 1 tab PO BID ANTIONETTE Stop: 08/31/25 08:59 Last Admin: 08/02/25 08:48 Dose: 1 tab Documented By: Admin: 08/01/25 20:42 Dose: 1 tab Documented By: ALFRED(2) Admin: 08/01/25 08:28 Dose: 1 tab Documented By: martín Spironolactone (Spironolactone 12.5 Mg Tab) 12.5 mg PO DAILY ANTIONETTE Stop: 08/31/25 08:59 Last Admin: 08/02/25 08:44 Dose: 12.5 mg Documented By: Admin: 08/01/25 08:25 Dose: 12.5 mg Documented By: martín Torsemide (Torsemide 20 Mg Tab) 40 mg PO BID17 ANTIONETTE Stop: 08/31/25 08:59 Last Admin: 08/02/25 08:44 Dose: 40 mg Documented By: Admin: 08/01/25 16:27 Dose: Not Given Documented By: Admin: 08/01/25 11:11 Dose: Not Given Documented By: DOREENK Trazodone HCl (Trazodone Hcl 100 Mg Tab) 300 mg PO HS ANTIOENTTE Stop: 08/31/25 20:59 Last Admin: 08/01/25 20:42 Dose: 300 mg Documented By: ALFRED(2) Vitamin D (Cholecalciferol 25 Mcg (1000 Units) Tab) 25 mcg PO DAILY ANTIONETTE Stop: 08/31/25 08:59 Last Admin: 08/02/25 08:44 Dose: 25 mcg Documented By: Admin: 08/01/25 08:17 Dose: 25 mcg Documented By: martín
[2025-08-02] MEDS: HEPARIN SOD 5,000 UNIT/0.5 ML VIAL SQ SCH (13:55)
[2025-08-02] MEDS: HYDROmorphone INJ 1 MG/ML SYRINGE IV PRN (15:31)
[2025-08-02] MEDS: PREGABALIN 25 MG CAP PO SCH (20:53)
[2025-08-03 06:41] LABS: Hematocrit (blood only) 34.3 % (37.0-47.0); Hemoglobin 11.4 g/dl (12.0-16.0); Mean Corpuscular Hemoglobin 29.4 pg (25.0-34.0); Mean Corpuscular Volume 88.4 fL (80.0-100.0); Platelet Count 234 K/uL (130-400); RDW Standard Deviation 59.0 fL (36.4-46.3); Red Blood Count 3.88 M/uL (4.20-5.40); White Blood Count 8.06 K/ul (4.8-10.8)
[2025-08-03] MEDS: MECLIZINE 12.5 MG TAB PO PRN (07:56)
[2025-08-03 07:58] LABS: Alanine Aminotransferase 7.0 U/L (7-52); Albumin Globulin Ratio 1.2 (0.9-2); Albumin Level 3.5 gm/dl (3.4-5.0); Alkaline Phosphatase 70.0 U/L (34-104); Anion Gap 8.0 (3-11); Bilirubin,Total 0.5 mg/dl (0.2-1.0); Blood Urea Nitrogen 19.0 mg/dl (6-23); Calcium 8.8 mg/dl (8.6-10.3); Carbon Dioxide 34.0 mmol/L (21-32); Chloride 98.0 mmol/L (98-107); Creatinine Clr Calc Pharmacy 44.2 ml/min; Globulin 2.9 gm/dl (2.5-4.0); Glucose 84.0 mg/dl (70-99(Fasting)); Potassium 3.5 mmol/L (3.5-5.1); Sodium 140.0 mmol/L (136-145); Total Protein 6.4 gm/dl (6.0-8.3)
--- NOTE | 2025-08-03 07:59 | Surgery Progress Note ---
<Statement entered by Jordan Mejia DO - 08/03/25 09:49> I have seen and examined this patient this am. She has had BMs. She has improved vastly and her remaining symptoms of pain at the anus are normal post op hemorrhoidectomy. She should follow up with her surgeon for her post operative visit. Continue abx course and perform sitz baths. Surgery will sign off, discharge per medical service on oral abx. Recommend Cipro and Flagyl. Date of Service August 03, 2025 Assessment & Plan (1) S/P hemorrhoidectomy: Plan: Patient status post hemorrhoidectomy at [facility] on 05/28/2025 -Doing well this morning, her pain is better controlled and she is tolerating a diet -Would recommend increasing diet to low-fiber this morning and see how she does -Continue Sitz baths -Would recommend sending patient home with oral antibiotics at time of discharge -Patient will need to follow up with her surgeon in the upcoming week or so. -Patient doing well from a surgical perspective. Will sign off at this time, please re-call with any questions or concerns Admission and Anticipated Discharge Date Admission Date: July 31, 2025 Subjective Patient seen and evaluated this morning, doing significantly better Passing gas and has had some BMs. Pain controlled Tolerating full liquids without issues of abdominal pain. Denies N/V Afebrile and WBC 8. Continues on IV ABX at this time Physical Exam Constitutional: WD/WN, vitals as above Respiratory: normal respiratory effort, lungs clear to auscultation Cardiovascular: Rate/Rhythm: regular rate Gastrointestinal (Abdomen): Abdomen soft, nondistended, nontender to palpation No rebound, guarding or signs of peritonitis Skin: no rashes, warm and dry Results & Data Vital Signs (Past 12 Hours) Vital Signs Temp Pulse Pulse Resp BP Pulse Ox O2 Del Method 08/03/25 07:13 70 18 99 Room Air 08/03/25 03:32 36.6 C 75 20 149/79 H 95 Room Air, CPAP 08/03/25 00:48 36.8 C 72 20 119/67 90 Room Air 08/02/25 21:46 69 08/02/25 21:00 Room Air PG Care Time/CCT Total # of Minutes Spent Total Time Spent with Patient: Total time spent is greater than 50% in coordination of care (as documented) at patient's floor/unit and/or counseling patient: C[place] [address] SUB INP/OBS CARE 11/29MIN Patient Type Established History Problem Focused Exam Problem Focused Medical Decision Making Straight Forward Diagnoses S/P hemorrhoidectomy Z98.890; Z87.19
[2025-08-03 08:12] VITALS: TEMP 98.1
[2025-08-03] MEDS ORDERED: ONDANSETRON INJ 2 MG/ML 2 ML VIAL IV PRN (11:31)
[2025-08-03] MEDS: cefTRIAXone SODIUM 2,000 MG/50 ML BAG IV SCH (13:07)
[2025-08-03] MEDS: metroNIDAZOLE 500 MG/100 ML BAG IV SCH (13:08)
[2025-08-03] MEDS: PREGABALIN 25 MG CAP PO SCH (13:08)
[2025-08-03] MEDS: PROMETHAZINE HCL 25 MG TAB PO SCH (13:10)
[2025-08-03] MEDS: LACTULOSE SYRUP 20 GM/30 ML UDC PO ONE (14:54)
[2025-08-03 15:41] VITALS: BP 134/81; RESP 16; O2SAT 96
--- NOTE | 2025-08-03 15:52 | Discharge Summary ---
Discharge Summary Date of Service August 03, 2025 Principal Dx & Hospital Course #1 = Principal Diagnosis (1) Abdominal pain: 70-year-old female with past medical history significant for hyperlipidemia, severe obstructive sleep apnea/hypopnea apnea syndrome, paroxysmal atrial fibrillation, gutierrez angioma, hypertension, CKD stage IIIb, chronic diastolic CHF, morbid obesity, nonalcoholic fatty liver disease, generalized osteoarthritis, fibromyalgia, lymphedema both lower extremities, restless leg syndrome, lipodermatosclerosis of both lower extremities, peripheral neuropathy, iron deficiency anemia due to chronic blood loss, aspirin intolerance, panic disorder, history of cerebral aneurysm status post stent assisted coil 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 #Peritonitic Abdominal Pain, resolved #Recent Hemorrhoidectomy #Constipation #Urinary Retention -pain appears to have increased overnight -pain now appears mildly peritonitic in nature in RLQ, immediately notified surgery -differential is broad, including post operative perforation, SBO, ischemia, ovarian torsion, appendicitis -urinary retention and substantial pain resolved with catheter placement Plan: -surgery consulted, appreciate recs -advanced diet as tolerated -start lyrica 25mg bid -stop dilaudid, start oxycodone 5mg q4hr prn with breakthrough dilaudid 0.5mg -stop lactulose given BM, continue advanced bowel regiment otherwise -will need urology f/u outpatient for catheter removal #R/o Pyelonephritis -Burning micturition -UA not suggestive of overt UTI given no WBC, does have mild fat stranding on imaging #Right eye blurred visions with floaters -Since yesterday () -Discussed with the ophthalmology in [place] Dr. Bill Chavez and since vision is okay plan for ophthalmology evaluation in a.m. if any changes in vision or ophthalmology not able to see her in the morning to call back [place] again -improving, f/u outpatient Obstructive sleep apnea -On CPAP nightly with 2 L oxygen Paroxysmal atrial fibrillation -On metoprolol succinate -Not on anticoagulant due to bleeding per Cardiology notes -On aspirin Restless leg syndrome -On Requip Chronic diastolic CHF -On torsemide and spironolactone with potassium supplement -Will monitor for volume overload Hyperlipidemia -On statin CKD stage III -Will follow labs Iron-deficiency anemia due to chronic blood loss -Hemoglobin 10.9 Notes For Next Care Provider 70-year-old female with past medical history significant for hyperlipidemia, severe obstructive sleep apnea/hypopnea apnea syndrome, paroxysmal atrial fibrillation, gutierrez angioma, hypertension, CKD stage IIIb, chronic diastolic CHF, morbid obesity, nonalcoholic fatty liver disease, generalized osteoarthritis, fibromyalgia, lymphedema both lower extremities, restless leg syndrome, lipodermatosclerosis of both lower extremities, peripheral neuropathy, iron deficiency anemia due to chronic blood loss, aspirin intolerance, panic disorder, history of cerebral aneurysm status post stent assisted coil 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 On medicine, surgery consulted given severe abdominal pain. Ct abdomen/pelvis revealing constipation. Nolasco catheter placed and revealed massive urinary retention. Symptoms improved post bowel movement and urinary retention resolution. Discussed case with opthalmology at [facility], recommended setting up outpatient ophthalmology appointment at [facility] within the next week. On 08/03/2025 patient medically stable for discharge home. To do: [ ] f/u with ophthalmology, PCP, urology, hemorrhoid surgeon [ ] keep good bowel regiment -Incidental Findings: atelectasis, gallbladder sludge, enlarged heart Medication Changes From Visit -see below Admission HPI Per Admitting Provider 70-year-old female with past medical history significant for hyperlipidemia, severe obstructive sleep apnea/hypopnea apnea syndrome, paroxysmal atrial fibrillation, gutierrez angioma, hypertension, CKD stage IIIb, chronic diastolic CHF, morbid obesity, nonalcoholic fatty liver disease, generalized osteoarthritis, fibromyalgia, lymphedema both lower extremities, restless leg syndrome, lipodermatosclerosis of both lower extremities, peripheral neuropathy, iron deficiency anemia due to chronic blood loss, aspirin intolerance, panic disorder, history of cerebral aneurysm status post stent assisted coil 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 Patient on last Sunday had hemorrhoidal surgery at [facility]. Since surgery she did not moved her bowels. Patient states she had some blood clots yesterday and today she had some spotting of the blood per rectum. Complaining of burning micturition.. Denies any fevers. Today was having significant lower abdominal pain which prompted her to come to the ER. No nausea. No chest pain or shortness of breath. No cough. No headaches. Since yesterday she also noticed some floaters and blurred vision in the right eye. Hemodynamics are okay. Past medical history. As mentioned above Past surgical history. Breast biopsy. . Colonoscopy. EGD. Exploratory of abdomen. Internal hemorrhoidectomy on 07/29/2025. Injection of lumbar spine. Ligation/biopsy of left temporal artery. Left total shoulder arthroplasty. Appendectomy. Removal of ovaries/tubes. Sacroiliac joint injection. Total hysterectomy. Vertebral artery catheter placement. Social history. . Quit smoking 2002. Smoked 0.3 pack a day for 25 years. No alcohol use currently. Medical marijuana per epic. Family history. Mother had lung cancer. Diabetes. Hypertension. Father had diverticulitis. Emphysema. Heart disorder. Diverticulitis. Discharge Exam Gen: A&O 3, comfortable HEENT: NCAT, EOMI, not icteric. External ears normal. No rhinorrhea. Dry mucous membranes. Neck: Supple, full range of motion, no observable masses, No meningeal sign. Lungs: No Respiratory distress. CV: RRR, no edema. Abdomen: much better today, mild diffuse tenderness MSK: No joint swelling, no redness. Skin: No rashes, petechiae, lesions. Normal color per patient. Neuro: Normal Gait, Grossly intact. Psych: Appropriate for situation. Updated Medication List Medication Instructions Recorded Confirmed Type albuterol sulfate 90 mcg/actuation 2 puff inhalation Q4H PRN 07/31/25 07/31/25 History aerosol inhaler Shortness Of Breath Or Wheezing aspirin 81 mg tablet,delayed 81 mg PO DAILY 07/31/25 07/31/25 History release atorvastatin 10 mg tablet 10 mg PO DAILY 07/31/25 07/31/25 History cholecalciferol (vitamin D3) 25 25 mcg PO DAILY 07/31/25 07/31/25 History mcg (1,000 unit) capsule (Vitamin D3) cyanocobalamin (vitamin B-12) 1,000 mcg PO DAILY 07/31/25 07/31/25 History 1,000 mcg tablet fluticasone propionate 50 2 spray intranasal DAILY 07/31/25 07/31/25 History mcg/actuation nasal spray,suspension ipratropium 0.5 mg-albuterol 3 mg 3 ml inhalation BID 07/31/25 07/31/25 History (2.5 mg base)/3 mL nebulization soln magnesium oxide 400 mg PO DAILY 07/31/25 07/31/25 History meclizine 12.5 mg tablet 12.5 mg PO TID PRN Vertigo 07/31/25 07/31/25 History metoprolol succinate 25 mg 25 mg PO DAILY 07/31/25 07/31/25 History tablet,extended release 24 hr oxycodone 5 mg tablet 5 mg PO Q6H PRN Pain 07/31/25 07/31/25 History potassium chloride 10 mEq 10 meq PO DAILY 07/31/25 07/31/25 History capsule,extended release ropinirole 2 mg tablet 2 mg PO BID 07/31/25 07/31/25 History spironolactone 25 mg tablet 12.5 mg PO DAILY 07/31/25 07/31/25 History torsemide 20 mg tablet 40 mg PO BID 07/31/25 07/31/25 History trazodone 150 mg tablet 300 mg PO HS 07/31/25 07/31/25 History cefuroxime axetil 500 mg tablet 500 mg PO BID 5 days #10 tabs 08/03/25 Rx lactulose 10 gram/15 mL oral 15 ml PO TID PRN constipation 08/03/25 Rx solution #1,200 mL metronidazole 500 mg tablet 500 mg PO BID 5 days #10 tabs 08/03/25 Rx polyethylene glycol 3350 17 gram 17 g PO DAILY PRN constipation #30 08/03/25 Rx oral powder packet (Miralax) ea pregabalin 25 mg capsule 25 mg PO TID 14 days #42 caps 08/03/25 Rx promethazine 12.5 mg tablet 12.5 mg PO TID PRN nausea and 08/03/25 Rx vomiting #14 tabs sennosides 8.6 mg-docusate sodium 1 tab PO BID #30 tabs 08/03/25 Rx 50 mg tablet (Senokot-S) Hospital Stay Data Consultations 07/31/25 20:40 ED Decision to Admit Stat 08/01/25 06:27 Consult General Surgery Routine 08/01/25 08:00 Consult Ophthalmology Routine Diagnostic Imagining Performed 07/31/25 16:11 CT abd pelvis IV con only Stat 08/01/25 09:50 CT abd pelvis oral and IV con Stat Pending Results Patient Have Any Pending Studies at Discharge: No Discharge Instructions Given to Patient (Per Discharging Provider) Diagnosis: post operative urinary retention, post operative constipation, post operative pain, floaters Follow Ups: PCP, urologist, surgeon, marketing systems analyst Incidental Findings: atelectasis, gallbladder sludge, enlarged heart 1. Please follow up with PCP, hemorrhoid surgeon, urologist. 2. Please take medications as prescribed. 3. Please take bowel regiment as prescribed. 4. Please set up marketing systems analyst visit over next week. Total Time Total Time Spent Total Time Spent (In Minutes): I spent a total of 35 minutes in direct patient care, including [id number] time with the patient and/or family, reviewing medical records, ordering and reviewing diagnostic tests, and coordinating care with other healthcare providers. This time includes: history taking, physical examination, medical decision making, counseling, ECG interpretation, imaging interpretation, lab interpretation, orders, and education, excluding time spent in the performance of separately billed services.
[2025-08-03 17:12] VITALS: PULSE 68
== END 2025-08-03 17:36 | disposition home or self-care (01) | DRG 392 ==
LOC: ED 15:52 → 3W 22:13 → 1E 08-01 11:44 → 2N 08-02 15:14